=== PATIENT | female | born 1940 | race Caucasian/White ===

== ENCOUNTER → 2016-06-14 | Outpatient (REF) | payer MEDICARE, OTHER ==
[~2016-06-14] MED LIST: /MOXI40TA OR; ALBU17IN INH; ALTA1CAP2 PO; ALTA5CAP PO; AMOX500T PO; AMOX875T2 PO; ASPI1TAB PO; ASPI325T PO; ATEN25TA PO; ATOR40TA PO; AUGM500T34 PO; BENE1POW4 PO; BENE6POW PO; BISA10SU PR; BISO10TA2 PO; BISO5TAB5 PO; CEPH500C PO; CIPR0.3S OS; DUONSOL NEB; FERR325T3 PO; FOLI1TAB2 PO; FURO20TA2 PO; FURO40TA2 PO; IPRASOL4 INH; IPRASOL4 NEB; KLOR1CAP2 PO; LASI20TA PO; LASI40TA PO; LEVO25TA5 PO; LEVO500T32 PO; LEVO75TA4 PO; LOVE0.4I2 SC; MAALSUS2 PO; NORT10CA2 PO; NYST10PW TOP; PANT40TA2 PO; PEG1POW PO; PERCOCET PO; POTA1TAB14 PO; PRED1SOL3 OS; PRED20TA PO; PROL0.072 OS; PROT1TAB2 PO; REGL5TAB2 PO; SENN1TAB2 PO; SENO8.6T10 PO; SIME80TA PO; SIMV40TA2 PO; SING10TA31 PO; SPIR25TA2 PO; SPIR50TA2 PO; SUCR1TA PO; SYMB16INH INH; SYMB80AE IN; SYNT50TA PO; TORS100T PO; TYLE325T5 PO; VIT D 2000 PO; VITA25003 SL; VITA50003 PO; VITA500T53 PO; XARE20TA PO; ZOFR20TA PO; [UNRECOGNIZED DRUG - CODE] PO
[2016-06-14 12:10] LABS: BASO % 0.6 % (0.0-1.0); EOS # 0.4 K/mm3 (0.0-0.50); EOS % 8.9 % (0.0-3.0); LARGE UNSTAINED CELL # 0.1 K/mm3 (0.0-0.4); LARGE UNSTAINED CELL % 1.8 % (0.0-4.0); LYMPH # 0.9 K/mm3 (1.5-4.5); LYMPH % 16.8 % (24.0-44.0); MEAN CORPUSCULAR HEMOGLOBIN 31.3 pg (27.0-33.0); MEAN CORPUSCULAR HGB CONC 31.8 g/dl (32.0-36.5); MEAN CORPUSCULAR VOLUME 98.3 fl (80.0-96.0); MONO # 0.3 K/mm3 (0.0-0.8); MONO % 6.2 % (0.0-5.0); NEUTROPHILS % 65.7 % (36.0-66.0); PLATELET COUNT, AUTOMATED 259 k/mm3 (150-450); RED CELL DISTRIBUTION WIDTH 13.7 % (11.5-14.5); WHITE BLOOD COUNT 4.6 K/mm3 (4.0-10.0)
[2016-06-14 12:18] LABS: ALBUMIN 2.7 GM/DL (3.2-5.2); ALBUMIN/GLOBULIN RATIO 0.64 (1.00-1.93); ALKALINE PHOSPHATASE 167 U/L (45-117); ALT/SGPT 15 U/L (12-78); ANION GAP 8 MEQ/L (8-16); AST/SGOT 12 U/L (15-37); BILIRUBIN,TOTAL 0.3 MG/DL (0.2-1.0); BLOOD UREA NITROGEN 15 MG/DL (7-18); CALCIUM LEVEL 8.1 MG/DL (8.8-10.2); CARBON DIOXIDE LEVEL 27 MEQ/L (21-32); CHLORIDE LEVEL 108 MEQ/L (98-107); CREATININE FOR GFR 0.61 MG/DL (0.55-1.02); GLOMERULAR FILTRATION RATE > 60.0 (>39); GLUCOSE, FASTING 111 MG/DL (83-110); POTASSIUM SERUM 3.8 MEQ/L (3.5-5.1); SODIUM LEVEL 143 MEQ/L (136-145); TOTAL PROTEIN 6.9 GM/DL (6.4-8.2)
== END ==
LOC: M LABDRAW1 11:17
PROVIDERS: ATTEND Physician Assistant
DX: E88.09 Other disorders of plasma-protein metabolism, not elsewhere classified (principal)

== ENCOUNTER → 2016-06-17 | Outpatient (CLI) | payer MEDICARE, OTHER ==
[~2016-06-17] MED LIST changes: +ISOVUE-300 61% 50ML VIAL (Q9967) As Ordered ONE; +LIDOCAINE 2% MDV 20 ML VIAL As Ordered ONE; +SODIUM BICARBONATE 8.4% INJ 50MEQ 50 ML VIAL As Ordered ONE
--- NOTE | 2016-06-17 12:41 | REPKIM ---
CLINICAL HISTORY: Patient with a history of gastric cancer, s/p subtotal gastrectomy and gastrojejunostomy bypass in 2006 and revision in 2014 has a 16F YUKI direct jejunostomy feeding tube. Patient presents because the feeding tube was inadvertently pulled out and patient partially pushed back in. PROCEDURE PERFORMED: Percutaneous Direct Jejunostomy Feeding tube Replacement INTERVENTIONALIST: Dr. Carlitos Lombardi CONSENT: The risks, benefits and alternatives to the procedure were explained to the patient and informed written consent was obtained. MEDICATIONS: Local Lidocaine 2% EBL: 1 mL CONTRAST: 15 mL Isovue 300 FLUORO TIME: 2.6 minutes COMPLICATIONS: None immediate DEVICE USED: 16F YUKI Jejunostomy Tube PROCEDURE/FINDINGS: The patient was brought to the interventional radiology suite where a timeout procedure was performed. The patient was placed in the supine position. The abdomen and existing indwelling catheter was prepped and draped in the usual sterile fashion. The existing jejunostomy retention balloon was found to be outside the skin exit site. Some erythema or cellulitis noted around the tube exit site. Contrast injection showed the tip of the indwelling catheter in the accessed small bowel. A guidewire was advanced through the existing catheter. Then the existing indwelling catheter was removed over the wire in its entirety. A 5-Czech Kumpe catheter was then introduced. Then using a hydrophilic guidewire, the catheter-guidewire combination was advanced under fluoroscopy into the further downstream jejunum. A new 16-Czech YUKI jejunostomy feeding tube was then advanced over the guidewire. The YUKI J tube retention balloon was inflated using approximately 2 mL and retention disc was secured to the abdominal wall using 2-0 prolene sutures. Contrast was injected into the jejunal port to confirm satisfactory course and position. Post procedure radiograph shows the tip of the tube in the efferent jejunum. The patient tolerated the procedure well with no immediate complications. This procedure was performed using fluoroscopy. Dr. Lombardi was present. IMPRESSION: Successful percutaneous Jejunostomy feeding tube replacement as discussed above. Plan: The jejunal port can be used for feeding as needed. Flush the jejunal port of the catheter with 40-ml of water TID and before/after each use. Augmentin po antibiotics x one week for cellulitis. The jejunostomy tube should be changed by Interventional Radiology in 6 months as part of preventive maintenance. cc: Chente Mcclelland MD [facility]
== END | disposition home or self-care (01) ==
LOC: M IRPRO 07:11
DX: Z43.4 Encounter for attention to other artificial openings of digestive tract (principal); Z85.028 Personal history of other malignant neoplasm of stomach
CPT/HCPCS: 49451; C1729; C1769; C1887; Q9967

== ENCOUNTER 2016-07-04 07:07 | Inpatient (IN) | payer MEDICARE, OTHER ==
[~2016-07-04] VITALS: Ht 149.9 cm; Wt 50.6 kg
[~2016-07-04 07:07] MED LIST changes: -ISOVUE-300 61% 50ML VIAL (Q9967) As Ordered ONE; -LIDOCAINE 2% MDV 20 ML VIAL As Ordered ONE; -SODIUM BICARBONATE 8.4% INJ 50MEQ 50 ML VIAL As Ordered ONE
[2016-07-04] MEDS ORDERED: fentaNYL 100 MCG/2 ML INJECTION (J3010) IV ONE ×3 (07:30→11:00)
[2016-07-04] MEDS ORDERED: SYMB16INH INH (07:54)
--- NOTE | 2016-07-04 08:22 | REP ---
CT STUDY OF THE BRAIN WITHOUT CONTRAST: HISTORY: Syncope. COMPARISON STUDY: November 06, 2014 FINDINGS: Bone window settings demonstrate an intact bony calvarium. There is mucosal thickening affecting the left maxillary sinus and bilateral ethmoid air cells. On soft tissue window settings, there is mild to moderate diffuse cerebral atrophy. There is no evidence of intracranial hemorrhage. No extra-axial fluid collection is seen. No mass or midline shift. No evidence of infarction. There is mild small vessel atherosclerotic change in the periventricular white matter of the frontal lobes. This is unchanged from the November 06, 2014 prior study. IMPRESSION: Diffuse atrophy, vascular calcification, and small vessel atherosclerotic changes. No acute intracranial abnormality. Signed by Palmer Redd MD 07/04/2016 02:25 P
--- NOTE | 2016-07-04 08:24 | REP ---
CT STUDY OF THE CERVICAL SPINE WITHOUT CONTRAST: HISTORY: Syncope. TECHNIQUE: Helical scanning is acquired and overlapping 2 mm high resolution axial images were generated and reviewed at bone and soft tissue window settings. Coronal and sagittal multiplanar re-formations images are generated. CT FINDINGS: There is no evidence of cervical spine element fracture. No skull base fracture is seen. Cervical vertebral body heights are preserved. Alignment is normal. There is a mild levoconvex curvature on the coronal re-formation images. Facet joints are normally aligned bilaterally at each cervical level on multiplanar re-formations images. There is multilevel degenerative disc and osteoarthritic facet disease. Degenerative changes are seen at C1-2. There is dystrophic calcification adjacent to the spinous process at C7. There is a bone island to the left side of the vertebral body at the C4 level. There is no evidence of intraspinal or paraspinal hematoma. No extra vertebral abnormality is seen. IMPRESSION: Negative CT study of the cervical spine without contrast. No fracture seen. Degenerative spondylosis changes. Signed by Palmer Redd MD 07/04/2016 02:25 P
--- NOTE | 2016-07-04 08:31 | REP ---
Left hip: Two views. History: Syncope. Left hip pain. Comparison radiographs are from April 19, 2016. December 19, 2015 prior radiographs are also reviewed. There is diffuse osteopenia. There is evidence of buckling of the lateral cortex of the femoral neck on the AP radiograph, suspicious for a slightly impacted femoral neck fracture, nondisplaced. It should be correlated with history. Is there a history of trauma? Extensive vascular calcification is noted. Soft tissues are otherwise unchanged. There is some old post-traumatic hypertrophy of the superior pubic rami bilaterally. Impression: Probable acute impacted, but otherwise nondisplaced fracture of the femoral neck on the left. Correlation with the clinical history and physical findings suggested. Signed by Palmer Redd MD 07/04/2016 02:25 P
[2016-07-04 08:32] LABS: BASO % 0.4 % (0.0-1.0); EOS # 0.4 K/mm3 (0.0-0.50); EOS % 6.4 % (0.0-3.0); LARGE UNSTAINED CELL # 0.1 K/mm3 (0.0-0.4); LARGE UNSTAINED CELL % 0.9 % (0.0-4.0); LYMPH # 0.8 K/mm3 (1.5-4.5); LYMPH % 12.3 % (24.0-44.0); MEAN CORPUSCULAR HEMOGLOBIN 31.6 pg (27.0-33.0); MEAN CORPUSCULAR HGB CONC 32.6 g/dl (32.0-36.5); MEAN CORPUSCULAR VOLUME 97.1 fl (80.0-96.0); MONO # 0.3 K/mm3 (0.0-0.8); MONO % 4.4 % (0.0-5.0); NEUTROPHILS # 4.7 K/mm3 (1.8-7.7); NEUTROPHILS % 75.6 % (36.0-66.0); PLATELET COUNT, AUTOMATED 242 k/mm3 (150-450); RED CELL DISTRIBUTION WIDTH 13.5 % (11.5-14.5); WHITE BLOOD COUNT 6.2 K/mm3 (4.0-10.0)
--- NOTE | 2016-07-04 08:49 | REP ---
Chest x-ray: Single view. History: Syncope. Comparison chest x-ray March 13, 2016. Findings: EKG monitoring electrodes overlie the chest. There is a enterostomy tube visible in the upper abdomen. The heart is mildly enlarged unchanged. There is some increased pleural opacity in the left lower lobe behind the heart although this is improved from the March 13, 2016 study. No new infiltrate is seen. The aorta is calcific. Impression: No new infiltrate. Pleural fluid or thickening behind the heart in the left base. Cardiomegaly. Enterostomy tube in the upper abdomen. Signed by Palmer Redd MD 07/04/2016 02:26 P
[2016-07-04 08:57] LABS: ANION GAP 8 MEQ/L (8-16); BLOOD UREA NITROGEN 11 MG/DL (7-18); CALCIUM LEVEL 8.1 MG/DL (8.8-10.2); CARBON DIOXIDE LEVEL 27 MEQ/L (21-32); CHLORIDE LEVEL 108 MEQ/L (98-107); GLOMERULAR FILTRATION RATE > 60.0 (>39); GLUCOSE, FASTING 89 MG/DL (83-110); POTASSIUM SERUM 3.7 MEQ/L (3.5-5.1); SODIUM LEVEL 143 MEQ/L (136-145)
--- NOTE | 2016-07-04 09:01 | REP ---
LEFT KNEE, TWO VIEW: HISTORY: Pain. There is no acute fracture or dislocation. There is narrowing of the joint spaces. An osteophyte is present on the patella. Chondrocalcinosis is present. The bony structure is osteopenic. IMPRESSION: There is no acute fracture or dislocation. Signed by Johan Hodge MD 07/04/2016 09:14 A
[2016-07-04] MEDS ORDERED: SPIR25TA2 PO (10:57)
[2016-07-04] MEDS ORDERED: ALBU83IN INH (10:58)
[2016-07-04] MEDS ORDERED: TRAM50TA2 PO (10:58)
[2016-07-04] MEDS ORDERED: FOLI1TAB2 PO (10:58)
[2016-07-04] MEDS ORDERED: FURO20TA2 PO (10:58)
[2016-07-04] MEDS ORDERED: PANT40TA2 PO (10:59)
[2016-07-04] MEDS: ENOXAPARIN 60 MG/0.6 ML SYR (J1650) SC SCH (11:00)
--- NOTE | 2016-07-04 12:11 | REP ---
CT STUDY OF THE PELVIS WITHOUT CONTRAST: HISTORY: Evaluate left femoral neck fracture. TECHNIQUE: Helical scanning is acquired. 3 mm axial images are generated. Coronal and sagittal multiplanar reformation images are generated. CT FINDINGS: Pelvic CT images show diffuse osteopenia. There is old appearing wedging at the L1 and L3 vertebral body levels. There is old post-traumatic deformity of the superior and inferior pubic rami bilaterally. The right hip is replaced. No sacral or acute pelvic fracture is seen. There is however an acute impacted nondisplaced fracture of the femoral neck on the left side. Vascular calcification is noted. A feeding enterostomy tube is noted in place. Postoperative changes are seen in the anterior abdominal wall. IMPRESSION: Acute, nondisplaced slightly impacted subcapital fracture left femoral neck. Old post-traumatic deformity in the pelvis. Right hip replacement. Signed by Palmer Redd MD 07/04/2016 02:29 P
[2016-07-04] MEDS ORDERED: ALBUTEROL SULFATE 2.5 MG/0.5 ML INH NEB SOLN INH PRN (12:15)
[2016-07-04] MEDS ORDERED: ALBUTEROL 90 MCG/ACT 8GM HFA INHALER INH PRN (12:15)
[2016-07-04] MEDS ORDERED: PERCOCET 5MG/325MG TAB PO PRN (12:30)
[2016-07-04] MEDS ORDERED: ACETAMINOPHEN TAB 650MG DOSE (2X325MG) PO PRN (12:30)
[2016-07-04] MEDS: ONDANSETRON 4MG/2ML VIAL (J2405) IV PRN (13:12)
[2016-07-04] MEDS: MORPHINE 2 MG/ML 1ML SYRINGE IV PRN ×4 (13:15→23:17)
--- NOTE | 2016-07-04 14:21 | REP ---
BILATERAL LOWER EXTREMITY DOPPLER VENOUS ULTRASOUND: LEFT THIGH: TECHNIQUE: Multiple ultrasonographic images of the deep venous structures of the left thigh were obtained from the common femoral vein to the popliteal vein along with Doppler interrogation and color flow Doppler images. FINDINGS: There is no abnormal echogenic material seen within any of the visualized deep venous structures that would suggest acute thrombosis. Coaptation is unremarkable throughout. Doppler interrogation shows an expected response to respiratory variability and augmentation. The color flow images show what appears to be a normal vascular pattern throughout. IMPRESSION: There is no ultrasonographic evidence of deep venous thrombosis involving any of the visualized deep venous structures of the left thigh, as described above. Due to the patient's status with a broken left hip, the patient was unable to move in a position necessary to best visualize the popliteal vein. That portion of the deep venous system was not well seen and a small clot in that area cannot be completely ruled out. RIGHT THIGH: TECHNIQUE: Multiple ultrasonographic images of the deep venous structures of the right thigh were obtained from the common femoral vein to the popliteal vein along with Doppler interrogation and color flow Doppler images. FINDINGS: There is no abnormal echogenic material seen within any of the visualized deep venous structures that would suggest acute thrombosis. Coaptation is unremarkable throughout. Doppler interrogation shows an expected response to respiratory variability and augmentation. The color flow images show what appears to be a normal vascular pattern throughout. IMPRESSION: There is no ultrasonographic evidence of deep venous thrombosis involving any of the visualized deep venous structures of the right thigh, as described above. Signed by Mathew Gonsalez DO 07/04/2016 02:32 P
--- NOTE | 2016-07-04 14:39 | HPE ---
DATE OF ADMISSION: 07/04/2016 [facility]IC SURGEON: Dr. Morris Viera DIESEL TRUCK DRIVER: Dr. Acosta. CHIEF COMPLAINT: Fall with left hip pain. HISTORY OF PRESENT ILLNESS: This is a 75-year-old female patient with underlying medical history of gastric cancer with gastric resection in 2014 done at [facility], gait instability, anemia of chronic disease, dumping syndrome, bilateral lower extremity chronic edema, hypoalbuminemia, malnutrition, congestive heart failure (CHF), grade 1 diastolic dysfunction, coronary arterial disease, severe protein calorie malnutrition, hypothyroidism, history of deep vein thrombosis (DVT) in December 2015, gastroesophageal reflux disease (GERD), hypothyroidism, and also has a history of syncope. The patient was brought to the hospital for an episode of syncope. As per patient, she was in her usual state of health with a month of intermittent cough. No dyspnea. Denies any chest pain, shortness of breath. This morning, the patient was in the living room when she tried to turn on the lamp. She did and subsequently leaned to her left and felt lightheaded and subsequently fell to the ground with loss of consciousness for about a few seconds and when she regained consciousness she felt significant pain on her left hip, unable to ambulate further. Denies any fevers, chills, or any upper extremity weakness or any focal neurological deficits. The patient stated that she does have a history of syncope in the past. Reported loose stool this morning, but has not had any significant diarrhea. Denies any fevers, chills, sick contacts. Denies any headache, neck pain, baseline ambulatory. Was able to walk back and forth in the mall without any problems. Ambulating without any assistance. Sees Dr. Acosta for cardiology. Denies any dyspnea on exertion, chest pain. Only reported left hip pain that is 8 out of 10. ALLERGIES: LIPITOR and CRESTOR. PAST MEDICAL HISTORY: 1. Gastric cancer, status post resection in 2014 done at [facility]. 2. Gait dysfunction. 3. Anemia of chronic disease. 4. Dumping syndrome. 5. Bilateral lower extremity chronic edema. 6. Coronary artery disease with stent in 2003. 7. Hypoalbuminemia. 8. Severe protein calorie malnutrition. 9. Hypothyroidism. 10. Deep vein thrombosis (DVT). 11. Gastroesophageal reflux disease (GERD). PAST SURGICAL HISTORY: 1. Gastric resection. 2. Percutaneous endoscopic gastrostomy tube placement. 3. Hysterectomy. 4. Left ankle fracture surgery. 5. Cardiac stents. 6. Right hip fracture. SOCIAL HISTORY: Denies any smoking, alcohol use. Denies any illicit drug use. FAMILY HISTORY: The patient had a son who from cancer. HOME MEDICATIONS: - Ventolin inhaler every four hours as needed - albuterol nebulizers every four hours as needed - Symbicort 160/4.5 mcg inhalation twice a day - vitamin D 50,000 units on Monday - ferrous sulfate 325 mg by mouth daily - folic acid 1 mg by mouth daily - Lasix 20 mg by mouth daily - Synthroid 50 mcg by mouth in the morning - Protonix 40 mg by mouth daily - Xarelto 20 mg by mouth daily - Spironolactone 25 mg by mouth daily - tramadol 50 mg by mouth twice a day as needed REVIEW OF SYSTEMS: Negative except for those mentioned in history of present illness. VITAL SIGNS: Temperature 97.6, pulse 76, respirations 18, blood pressure 178/81, pulse oximetry 95% on room air. GENERAL: The patient is alert and oriented times three. Frail and in no acute distress. HEENT: Normocephalic, atraumatic. PULMONARY: Bilaterally clear to auscultation. CARDIAC: 2/6 systolic murmur detected. Regular S1, S2. ABDOMEN: Soft. PEG tube noticed that is clean, dry and intact. EXTREMITIES: Left lower extremity is tender to palpation. Right lower extremities is able to move without limitation. Dorsalis pedis and posterior tibialis pulses 2+ bilaterally. NEUROLOGIC: No focal deficit. Cranial nerves II through XII grossly intact. LABORATORY DATA: WBC 6.2, hemoglobin and hematocrit 11.1/34, platelets 242. Chemistry: Sodium 143, potassium 3.7, chloride 108, bicarbonate 27, BUN 11, creatinine 0.6. CT of the pelvis shows acute nondisplaced slightly impacted subcapital fracture of left femoral neck. Old posttraumatic deformity in the pelvis. Right hip replacement. CT of the head and CT of the cervical spine within normal limits. X-ray of the chest showed no new infiltrates. Pleural fluid or thickening behind the heart in the left base, cardiomegaly. Electrocardiogram (EKG) showed sinus rhythm at 73 with PVCs, no ST segment changes. ASSESSMENT AND PLAN: This is a 75-year-old female patient with underlying medical history of gastric cancer, coronary arterial disease, stents in 2003, gait instability, anemia of chronic disease, dumping syndrome, bilateral lower extremity edema, hypoalbuminemia, congestive heart failure (CHF) with grade 1 diastolic dysfunction, severe protein calorie malnutrition, hypothyroidism, deep vein thrombosis (DVT), gastroesophageal reflux disease (GERD). The patient admitted status fall with syncope with left femoral neck fracture, nondisplaced. 1. Syncope. The patient has a history of gait instability. We will check orthostatic vital signs after surgery. We will follow cardiac enzymes, thyroid function tests and monitor blood pressure. IV fluids for hydration. Echocardiogram and CT of the head appreciated. 2. Left femoral neck fracture. Orthopedics consulted. Perioperative management as per orthopedics. The patient with METs greater than 4 with normal EKG. Currently medically optimized for surgery. Case discussed with Dr. Acosta. Additional records requested. The patient is currently optimized for surgery. Risks and benefits have been discussed with the patient. Pain regimen as prescribed. 3. Asthma. Continue medication as ordered. The patient is currently not having any wheeze. We will check respiratory panel to see if the patient has been sick from respiratory illness given the patient is complaining of cough. 4. Coronary arterial disease. The patient's Xarelto has been on hold. Holding blood pressure medication. EKG appreciated. Followup cardiac enzymes. Telemetry monitoring. Followup echocardiogram. Report requested from cardiology, Dr. Acosta, office. 5. Hypothyroidism. Followup thyroid profile. Continue Synthroid. 6. History of deep vein thrombosis (DVT). Followup ultrasound Doppler. Xarelto on hold. Switch to Lovenox. We will bridge the patient back to Xarelto after surgery. Hold Lovenox tomorrow morning for surgery. 7. Asthma. Continue Symbicort. Nebulizer treatment. Proventil. 8. Severe protein calorie malnutrition. The patient has a PEG tube, but has been tolerating oral. We will restart feeding once surgery is done. 9. Gastroesophageal reflux disease (GERD). Continue proton pump inhibitor. 10. History of congestive heart failure (CHF). Grade 1 diastolic dysfunction. Holding aldactone and Lasix. Given the patient is going for surgery, we will restart medication after surgery. 11. Gait instability. We will do physical therapy (PT) and occupational therapy (OT) after surgery. 12. History of dumping syndrome. We will continue to monitor. IV fluids for hydration. Followup electrolytes. 13. Anemia of chronic disease. Continue oral supplementation of iron. Monitor hemoglobin and hematocrit. Transfuse as needed. 14. Deep vein thrombosis (DVT) prophylaxis. The patient is on treatment dose Lovenox. DISPOSITION: Pending orthopedic consultation, orthopedic surgery, clinical improvement.
[2016-07-04 15:39] LABS: T UPTAKE 36 % (30-39); THYROXINE (T4) 5.7 UG/DL (4.5-12.0)
[2016-07-04] MEDS ORDERED: NYST10CR TOP (15:48)
[2016-07-04 16:10] VITALS: BP 162/74
[2016-07-04] MEDS: LR 1,000 ML IV SCH (16:39)
[2016-07-04] MEDS: PANTOPRAZOLE 40MG TAB (PROTONIX) PO SCH (17:33)
[2016-07-04] MEDS: FOLIC ACID 1 MG TAB PO SCH (17:33)
[2016-07-04] MEDS: FERROUS SULFATE 325MG TAB PO SCH (17:33)
--- NOTE | 2016-07-04 18:41 | CR ---
DATE OF CONSULTATION: 07/04/2016 CHIEF COMPLAINT: Left hip pain. HISTORY OF THE PRESENT ILLNESS: A 75-year-old female, she got up to ambulate and lost her balance, fell, injured the left hip, could not walk, had significant pain. History of right hip replacement with Dr. Yusuf in the past; that is not hurting, though. She has significant medical comorbidities, including resection of a gastric cancer around the 2014 time frame at the [facility]. Nutritional issues. Has a history of cardiac issues. Complains of pain in the left hip. Previously lived independently by herself near family members, is ambitious about going home and not to a subacute rehabilitation facility. ALLERGIES: Include LIPITOR and CRESTOR. MEDICAL HISTORY: Includes gastric cancer resected in 2014, gait disorder, anemia of chronic disease, dumping syndrome, bilateral lower extremity chronic edema, coronary artery disease, hyperalbuminemia, protein-calorie malnutrition, hypothyroidism, deep vein thrombosis (DVT), gastroesophageal reflux disease. SURGICAL HISTORY; Includes gastric resection, endoscopic gastrectomy tube placement, hysterectomy, left ankle fracture surgery, cardiac stents, right hip replacement. SOCIAL HISTORY: Does not smoke or drink, or use any illicit drugs. FAMILY HISTORY: She has a son who of cancer. She is present with her daughter today who is supportive. MEDICATIONS AT HOME: Include Ventolin, albuterol, Symbicort, vitamin D, iron, folate, Lasix, Synthroid, Protonix, Xarelto, spironolactone, tramadol. REVIEW OF SYSTEMS: She is complaining of left hip pain today. She is not complaining of headache, nausea, shortness of breath, abdominal pain or any other issue. Not complaining of skin trouble. CLINICAL EXAM: Alert and cooperative, very articulate and pleasant, accompanied by her daughter in the room today. She is not short of breath. Cardiac: Regular, about 70 beats per minute at the dorsalis pedis on the left side. There is minimal to no peripheral edema today. The calves are soft, nontender. Manipulation of the left hip does produce pain towards the groin region. Appears to be an isolated injury. Abdomen is not distended. IMAGING: Plain films suggest an impacted femoral neck fracture of the left hip. CT of the abdomen and pelvis reviewed also reveals an impacted but not significantly displaced femoral neck fracture in the basocervical region. IMPRESSION: Femoral neck fracture, impacted, not displaced. RECOMMENDATIONS: Recommendations include operative percutaneous fixation of the hip fracture. I spoke in detail with the patient as well as her daughter. We talked about the procedure proposed, alternatives such as doing a hemiarthroplasty or needing to do a hemiarthroplasty if this displaced over time. We talked about the risk of failure, most of these heal but some of them fail and if it fails, she would need to be converted to some other type of intervention. I do think that the percutaneous option is her best option considering her medical history and frailty. I think that a hemiarthroplasty would be a metabolic challenge for this patient to some degree. We talked about recovery. She is going to require a stay in subacute rehab. I do not think that she is going to be able to be discharged to home until she has healed this fracture. This will likely entail a 6 to 8 week stay in subacute rehabilitation before any consideration of independent living is made. Even after discharge from subacute rehab, she may require additional assistance considering the patient's comorbidities. The patient agreed to proceed. Daughter witnessed consent. We will coordinate with the hospitalist team as well as operating room team to get her onto the schedule. The patient is comfortable with our plan.
--- NOTE | 2016-07-04 19:53 | ECHO ---
DATE OF PROCEDURE: 07/04/2016 REFERRING PHYSICIAN: Dr. Mcconnell INDICATION: Syncope. HEIGHT: 150 cm WEIGH: 50 kg DIMENSIONS: IVS 1.2 LV 3.7 LVPW 1.2 LA 3.4 Aorta 2.8 FINDINGS: Study of is of good technical quality. Left ventricle is of normal size and hyperdynamic contractility with estimated ejection fraction (EF) 65-70% . Mild LVH is noted. Right ventricle does not appear dilated. Left atrium is severely enlarged. Right atrium is probably mildly enlarged. Aortic valve is tricuspid. There is sclerosis and some restriction of leaflet cusp mobility. Based on 2-D imaging, I assume approximately mild aortic stenosis. There are degenerative abnormalities of mitral valve with thickening of mitral leaflets and minimal restriction of leaflet mobility. Tricuspid valve appears normal. Pulmonic valve also appears normal. No pericardial effusion is noted. Inferior vena cava was not visualized because of recently placed feeding tube. Aortic arch and abdominal aorta were not seen. Doppler interrogation reveals aortic stenosis which is probably mild. Peak gradient is 37 and mean gradient 20 mmHg. No aortic insufficiency is noted. Doppler interrogation of mitral valve reveals evidence for approximately moderate insufficiency, but also trivial stenosis with peak gradient 7, mean gradient 3 mmHg. There is mild tricuspid insufficiency. Calculated pulmonary artery pressure is in 30s assuming normal central venous pressure which would indicate mild pulmonary hypertension. Pulmonic valve exhibits mild insufficiency as well. Mitral inflow pattern and tissue Doppler imaging of mitral annulus reveal grade 1 diastolic dysfunction. CONCLUSIONS: 1. Study is of good technical quality. 2. Normal left ventricle (LV) size with mild LVH and hyperdynamic LV systolic function. Grade I diastolic dysfunction. 3. Mild aortic stenosis. 4. Degenerative abnormalities of mitral valve resulting in trivial stenosis and approximately moderate insufficiency. 5. Unable to estimate central venous pressure but at least mild pulmonary hypertension. COMMENTS: Subacute bacterial endocarditis (SBE) prophylaxis is not recommended. MTDD
[2016-07-04 20:00] VITALS: BP 122/59
[2016-07-04] MEDS: SENOKOT S TAB PO SCH ×2 (20:06→20:10)
--- NOTE | 2016-07-04 20:37 | ECGEPIP ---
Stationary ECG Study [facility] - ED Test Date: 2016-07-04 Pat Name: SUE URENA Department: Room: - Gender: F [employer]: derek : 1940 Requested By: MITZY Wilks Order Number: [id number] Reading MD: Americo Chinchilla Measurements Intervals Harvey Rate: 73 P: 29 MS: 168 QRS: -7 QRSD: 85 T: -13 QT: 406 QTc: 450 Interpretive Statements SINUS RHYTHM WITH OCCASIONAL SUPRAVENTRICULAR PREMATURE COMPLEXES Electronically Signed On 07-04-2016 20:36:53 EST by Americo Chinchilla
[2016-07-04 21:14] LABS: CALCIUM OXALATE CRYSTALS SMALL
[2016-07-05] VITALS (11 sets, daily range): BP systolic 98–164; BP diastolic 52–78
[2016-07-05] MEDS: ENOXAPARIN 60 MG/0.6 ML SYR (J1650) SC SCH ×2 (01:01→23:47)
[2016-07-05] MEDS: LR 1,000 ML IV SCH (04:48)
[2016-07-05 05:30] LABS: MEAN CORPUSCULAR HEMOGLOBIN 31.2 pg (27.0-33.0); MEAN CORPUSCULAR HGB CONC 32.7 g/dl (32.0-36.5); MEAN CORPUSCULAR VOLUME 95.4 fl (80.0-96.0); RED CELL DISTRIBUTION WIDTH 13.6 % (11.5-14.5); WHITE BLOOD COUNT 5.1 K/mm3 (4.0-10.0)
[2016-07-05 05:42] LABS: INR 1.19
[2016-07-05 05:50] LABS: ANION GAP 7 MEQ/L (8-16); BLOOD UREA NITROGEN 11 MG/DL (7-18); CALCIUM LEVEL 7.5 MG/DL (8.8-10.2); CARBON DIOXIDE LEVEL 29 MEQ/L (21-32); CHLORIDE LEVEL 106 MEQ/L (98-107); CREATININE FOR GFR 0.62 MG/DL (0.55-1.02); GLOMERULAR FILTRATION RATE > 60.0 (>39); GLUCOSE, FASTING 91 MG/DL (83-110); MAGNESIUM LEVEL 1.8 MG/DL (1.8-2.4); POTASSIUM SERUM 3.4 MEQ/L (3.5-5.1); SODIUM LEVEL 142 MEQ/L (136-145)
[2016-07-05] MEDS: LEVOTHYROXINE 0.05 MG TAB (50 MCG) PO SCH (06:12)
[2016-07-05] MEDS: SYMBICORT 160/4.5MCG INHALER 6GM INH SCH ×2 (07:00→20:33)
[2016-07-05] MEDS ORDERED: POTASSIUM CHLORIDE 10 MEQ SR TABLET PO ONE (08:30)
[2016-07-05] MEDS: SENOKOT S TAB PO SCH ×2 (09:00→22:17)
[2016-07-05] MEDS: NYSTATIN CREAM 15 GM XX SCH ×2 (09:00→22:16)
[2016-07-05] MEDS: PANTOPRAZOLE 40MG TAB (PROTONIX) PO SCH (09:36)
[2016-07-05] MEDS: FOLIC ACID 1 MG TAB PO SCH (09:37)
[2016-07-05] MEDS: FERROUS SULFATE 325MG TAB PO SCH (09:37)
[2016-07-05] MEDS: ONDANSETRON 4MG/2ML VIAL (J2405) IV PRN (11:17)
[2016-07-05] MEDS: MORPHINE 2 MG/ML 1ML SYRINGE IV PRN ×4 (12:31→21:00)
--- NOTE | 2016-07-05 13:26 | IPNPDOC ---
Text Note Date of Service The patient was seen on 07/05/16. NOTE Subjective: Patient states she feels well. Denies CP/SOB/Palpitations. Left hip pain well controlled. Objective: Vitals: (see below) General: No acute distress, laying comfortably in bed. HEENT: Moist mucous membranes. Neck: No JVD or lymphadenopathy Cardiac: RRR, No murmurs Pulm: Clear to auscultation b/l. No wheezing, rhonchi Abd: NT/ND + BS. PEG tube in place, with bilious fluid and redness around it. Non tender. Ext: No edema or cyanosis. Distal pulses intact. Left hip pain on movement. Labs (see below) Images: Echo 07/04/16 CONCLUSIONS: 1. Study is of good technical quality. 2. Normal left ventricle (LV) size with mild LVH and hyperdynamic LV systolic function. 3. Mild aortic stenosis. 4. Degenerative abnormalities of mitral valve resulting in trivial stenosis and approximately moderate insufficiency. 5. Unable to estimate central venous pressure but at least mild pulmonary hypertension. Assessment/Plan 1. Syncope- patient states she's been having symptoms of orthostatic hypotension when standing. Denies any chest pain/palpitations. No acute changes overnight. Echocardiogram noted. Cardiac enzymes negative. Thyroid function within normal limits. 2. Left femur neck fracture- orthopedics consulted. The patient and greater than 4 mets, and has been optimized for surgery by Dr. Mcconnell, who discussed case with Dr. Acosta. 3. History of gastric cancer status post gastrectomy, has PEG tube, however has not used over the past 2 weeks. Has some bilious fluid as well as redness around the tube. We'll speak to her primary care physician regarding necessity of this PEG tube as patient is tolerating a diet. Surgery consulted. Will likely need this taken out soon. 4. Asthma- stable 5. History of CAD- cardiac enzymes negative. Echocardiogram noted. Stable. 6. History of DVT- Xarelto on hold. Placed on Lovenox in the meantime. 7. Severe protein calorie malnutrition- patient has been tolerating a regular diet. Will likely need PEG tube removed now. 8. GERD- continue PPI 9. Grade 1 diastolic dysfunction- Aldactone and Lasix have been held until after the surgery. 10. Gait instability- physical therapy and occupational therapy will be consulted after surgery. 11. History of dumping syndrome- continue IV fluid hydration DVT prophy: On Lovenox, Xarelto on hold VS,Fishbone, I+O VS, Fishbone, I+O Laboratory Tests 07/05/16 05:04 Calcium Level 7.5 L, Red Blood Count 2.94 L, Mean Corpuscular Volume 95.4, Mean Corpuscular Hemoglobin 31.2, Mean Corpuscular Hemoglobin Concent 32.7, Red Cell Distribution Width 13.6 07/05/16 11:20 Vital Signs Date Time Temp Pulse Resp B/P Pulse Ox O2 Delivery O2 Flow Rate FiO2 07/05/16 12:31 20 07/05/16 12:20 96.7 72 134/61 93 Room Air I&O- Last 24 Hours up to 6 AM 07/05/16 06:00 Intake Total 1000 ml Output Total 550 ml Balance 450 ml CARMITA WELCH MD Jul 05, 2016 13:26
[2016-07-05] MEDS ORDERED: ceFAZolin 1GM INJ (J0690) As Ordered ONE ×2 (15:11→16:52)
[2016-07-05] MEDS ORDERED: BUPIVACAINE/EPIN 0.25% 30 ML VIAL As Ordered ONE (15:11)
[2016-07-05] MEDS ORDERED: ceFAZolin 2 GM/D5W 50 ML IV BAG (J0690) As Ordered ONE (16:53)
[2016-07-05] MEDS ORDERED: GLYCOPYRROLATE INJ 0.2 MG/ML 2 ML VIAL As Ordered ONE (17:44)
[2016-07-05] MEDS ORDERED: LIDOCAINE 2% INJ 100 MG/5 ML SDV (FOR ANES.) As Ordered ONE (17:44)
[2016-07-05] MEDS ORDERED: ONDANSETRON 4MG/2ML VIAL (J2405) As Ordered ONE (17:44)
[2016-07-05] MEDS ORDERED: fentaNYL 250 MCG/5 ML INJECTION (J3010) As Ordered ONE (17:44)
[2016-07-05] MEDS ORDERED: PROPOFOL 200 MG/20 ML VIAL As Ordered ONE (17:44)
[2016-07-05] MEDS ORDERED: ROCURONIUM BROMIDE 50 MG/5 ML VIAL As Ordered ONE (17:44)
[2016-07-05] MEDS ORDERED: NEOSTIGMINE 1MG/ML 5 ML SYRINGE (J2710) As Ordered ONE (17:44)
[2016-07-05] MEDS ORDERED: PHENYLephrine HCL 500 MCG/5 ML (100MCG/ML) SYRINGE (J2370) As Ordered ONE (17:44)
[2016-07-05] MEDS ORDERED: METOCLOPRAMIDE INJ 10MG/2ML VIAL (J2765) As Ordered ONE (17:44)
[2016-07-05] MEDS ORDERED: MIDAZOLAM INJ 2 MG/2 ML VIAL (J2250) As Ordered ONE (17:44)
[2016-07-05] MEDS ORDERED: D5W/LR 1,000 ML IV SCH (18:30)
[2016-07-05] MEDS ORDERED: fentaNYL 100 MCG/2 ML INJECTION (J3010) IV PRN (18:45)
[2016-07-05] MEDS ORDERED: LR 1,000 ML IV SCH (18:45)
[2016-07-05] MEDS ORDERED: ONDANSETRON 4MG/2ML VIAL (J2405) IV PRN (18:45)
[2016-07-05] MEDS ORDERED: MORPHINE 2 MG/ML 1ML SYRINGE As Ordered ONE ×2 (19:01→19:09)
[2016-07-05] MEDS ORDERED: MORPHINE 2 MG/ML 1ML SYRINGE IV PRN (19:30)
--- NOTE | 2016-07-05 19:41 | REP ---
C-ARM VIEWS, LEFT HIP: Two C-ARM views of the left hip are performed. There metallic screws in the proximal femur. The structures are well aligned. 54 seconds of fluoroscopic time was utilized. Signed by Neto Larson MD 07/05/2016 08:13 P
[2016-07-05] MEDS: ceFAZolin SOD 1 GM in D5W MINI-BAG PLUS 50 ML IV SCH (22:16)
[2016-07-05] MEDS: DOCUSATE SODIUM 100 MG CAP PO SCH (22:17)
[2016-07-05] MEDS: PERCOCET 5MG/325MG TAB PO PRN (22:18)
[2016-07-06] VITALS: BP 140/66
[2016-07-06] MEDS: MORPHINE 2 MG/ML 1ML SYRINGE IV PRN ×3 (00:24→10:42)
[2016-07-06 04:00] VITALS: BP 116/62
[2016-07-06] MEDS: ceFAZolin SOD 1 GM in D5W MINI-BAG PLUS 50 ML IV SCH (04:35)
[2016-07-06 05:38] LABS: MEAN CORPUSCULAR HEMOGLOBIN 32.1 pg (27.0-33.0); MEAN CORPUSCULAR HGB CONC 32.9 g/dl (32.0-36.5); MEAN CORPUSCULAR VOLUME 97.4 fl (80.0-96.0); RED CELL DISTRIBUTION WIDTH 13.4 % (11.5-14.5); WHITE BLOOD COUNT 4.6 K/mm3 (4.0-10.0)
[2016-07-06 05:50] LABS: INR 1.18
[2016-07-06 05:58] LABS: ANION GAP 7 MEQ/L (8-16); BLOOD UREA NITROGEN 11 MG/DL (7-18); CALCIUM LEVEL 7.7 MG/DL (8.8-10.2); CARBON DIOXIDE LEVEL 29 MEQ/L (21-32); CHLORIDE LEVEL 105 MEQ/L (98-107); CREATININE FOR GFR 0.69 MG/DL (0.55-1.02); GLOMERULAR FILTRATION RATE > 60.0 (>39); GLUCOSE, FASTING 125 MG/DL (83-110); MAGNESIUM LEVEL 1.7 MG/DL (1.8-2.4); SODIUM LEVEL 141 MEQ/L (136-145)
[2016-07-06] MEDS: LEVOTHYROXINE 0.05 MG TAB (50 MCG) PO SCH (06:15)
[2016-07-06] MEDS: SYMBICORT 160/4.5MCG INHALER 6GM INH SCH (07:15)
[2016-07-06 08:00] VITALS: BP 124/59
[2016-07-06] MEDS ORDERED: MOM 30ML SUSPENSION UDC PO SCH (09:00)
[2016-07-06] MEDS ORDERED: FLUCONAZOLE 100 MG TAB PO SCH (09:00)
[2016-07-06] MEDS ORDERED: MAG SULF 1GM/100ML (MAG RUN) 1 GM in APPROPRIATE DILUENT 1 EA IV ONE (09:00)
[2016-07-06] MEDS ORDERED: FUROSEMIDE 20 MG TAB PO SCH (09:00)
[2016-07-06] MEDS ORDERED: MIRALAX *UNIT DOSE* 17GM PACKET PO SCH (09:00)
[2016-07-06] MEDS ORDERED: SPIRONOLACTONE 25 MG TAB PO SCH (09:00)
--- NOTE | 2016-07-06 09:05 | REP ---
Left hip: Three views. History: Postop. Comparison study July 04, 2016. Findings: There are three metallic pins in the left proximal femur transfixing the subcapital femoral neck fracture in position unchanged. Lateral soft tissue swelling, emphysematous change, and skin doris are seen. There is diffuse osteoporosis and vascular calcification. The pins are subcortical in the femoral head on the both projections. Signed by Palmer Redd MD 07/06/2016 12:25 P
[2016-07-06] MEDS: PANTOPRAZOLE 40MG TAB (PROTONIX) PO SCH (09:49)
[2016-07-06] MEDS: FOLIC ACID 1 MG TAB PO SCH (09:49)
[2016-07-06] MEDS: FERROUS SULFATE 325MG TAB PO SCH (09:49)
[2016-07-06] MEDS: DOCUSATE SODIUM 100 MG CAP PO SCH (09:49)
[2016-07-06] MEDS: PERCOCET 5MG/325MG TAB PO PRN ×2 (09:49→17:51)
[2016-07-06] MEDS: NYSTATIN CREAM 15 GM XX SCH (09:51)
[2016-07-06] MEDS: ENOXAPARIN 60 MG/0.6 ML SYR (J1650) SC SCH (11:51)
[2016-07-06 12:00] VITALS: BP 114/59
--- NOTE | 2016-07-06 12:44 | IPNPDOC ---
Text Note Date of Service The patient was seen on 07/06/16. NOTE Subjective: Patient states she feels well. Denies CP/SOB/Palpitations. Left hip pain well controlled. Still has bilious drainage at the peg tube site. Objective: Vitals: (see below) General: No acute distress, laying comfortably in bed. HEENT: Moist mucous membranes. Neck: No JVD or lymphadenopathy Cardiac: RRR, No murmurs Pulm: Clear to auscultation b/l. No wheezing, rhonchi Abd: NT/ND + BS. PEG tube in place, with bilious fluid and redness around it. Non tender. Ext: No edema or cyanosis. Distal pulses intact. Left hip pain on movement improved. Left hip surgical site with bandage clean, dry. No bleeding. Minimal swelling. Labs (see below) Images: Echo 07/04/16 CONCLUSIONS: 1. Study is of good technical quality. 2. Normal left ventricle (LV) size with mild LVH and hyperdynamic LV systolic function. 3. Mild aortic stenosis. 4. Degenerative abnormalities of mitral valve resulting in trivial stenosis and approximately moderate insufficiency. 5. Unable to estimate central venous pressure but at least mild pulmonary hypertension. Assessment/Plan 1. Syncope- patient states she's been having symptoms of orthostatic hypotension when standing prior to presentation. Denies any chest pain/ palpitations. No acute changes overnight. Echocardiogram noted. Cardiac enzymes negative. Thyroid function within normal limits. 2. Left femur neck fracture- Post Op repair on 07/05 by orthopedics. 3. History of gastric cancer status post gastrectomy, has PEG tube, however has not used over the past 2 weeks. Has some bilious fluid as well as redness around the tube. We'll speak to her primary care physician regarding necessity of this PEG tube as patient is tolerating a diet. Surgery consulted. Will likely need this taken out soon. Fluconazole started. 4. Asthma- stable 5. History of CAD- cardiac enzymes negative. Echocardiogram noted. Stable. 6. History of DVT- Xarelto on hold. Placed on Lovenox in the meantime. 7. H/o Severe protein calorie malnutrition- patient has been tolerating a regular diet. Will likely need PEG tube removed now. 8. GERD- continue PPI 9. Grade 1 diastolic dysfunction- Aldactone and Lasix restarted 10. Gait instability- physical therapy and occupational therapy will be consulted after surgery. 11. History of dumping syndrome DVT prophy: On Lovenox, Xarelto on hold; plan to restart xarelto after peg eval. VS,Fishbone, I+O VS, Fishbone, I+O Laboratory Tests 07/06/16 05:10 Calcium Level 7.7 L, Red Blood Count 2.79 L, Mean Corpuscular Volume 97.4 H, Mean Corpuscular Hemoglobin 32.1, Mean Corpuscular Hemoglobin Concent 32.9, Red Cell Distribution Width 13.4 Vital Signs Date Time Temp Pulse Resp B/P Pulse Ox O2 Delivery O2 Flow Rate FiO2 07/06/16 12:00 98.1 71 18 114/59 92 Nasal Cannula 2.0 I&O- Last 24 Hours up to 6 AM 07/06/16 06:00 Intake Total 2070 ml Output Total 1000 ml Balance 1070 ml CARMITA WLECH MD Jul 06, 2016 12:44
[2016-07-06] MEDS: ONDANSETRON 4MG/2ML VIAL (J2405) IV PRN (12:48)
[2016-07-06 16:00] VITALS: BP 150/67
[2016-07-06] MEDS ORDERED: FLUC10TA PO (17:57)
--- NOTE | 2016-07-07 15:57 | DS.PDOC ---
Discharge Summary General Date of Admission Jul 04, 2016 at 12:25 Date of Discharge Jul 06, 2016 at 18:54 Attending Physician: CARMITA WELCH MD Specialist/Consultants Involve: Seth Acosta MD Specialist/Consultants Involve Dr. Cruz Discharge Summary PROCEDURES PERFORMED DURING STAY: Left femur fracture repair. ADMITTING/DISCHARGE DIAGNOSES: 1. Syncope likely secondary to orthostatic hypotension 2. Left femur fracture status post repair 3. History of gastric cancer status post gastrectomy with current PEG/J-tube. 4. History of Asthma 5. History of CAD 6. History of DVT on Xarelto 7. History of severe protein calorie malnutrition 8. Grade 1 diastolic dysfunction 9. Gait instability 10. History of dumping syndrome COMPLICATIONS/CHIEF COMPLAINT: Closed Left Hip Fracture. HISTORY OF PRESENT ILLNESS/HOSPITAL COURSE: . This is a 75-year-old female past medical history of DVT on Xarelto, CAD, gastric cancer status post gastrectomy who presents status post fall. Patient states she had symptoms consistent with orthostatic hypotension prior to her syncopal episode. After syncopal episode patient was noted to have left femur pain, with imaging noting the left femur neck fracture. Orthopedics were consulted and the patient did have a repair of her femur fracture. Patient was also noted to have bilious drainage around her PEG/J tube, with erythema noted. Dr. Cruz was consulted, and will continue to follow patient in PM&R. DISCHARGE MEDICATIONS: Please see below. ALLERGIES: Please see below. PHYSICAL EXAMINATION ON DISCHARGE: Vitals: (see below) General: No acute distress, laying comfortably in bed. HEENT: Moist mucous membranes. Neck: No JVD or lymphadenopathy Cardiac: RRR, No murmurs Pulm: Clear to auscultation b/l. No wheezing, rhonchi Abd: NT/ND + BS. PEG/J tube in place, with bilious fluid and redness around it. Non tender. Ext: No edema or cyanosis. Distal pulses intact. Left hip pain on movement. LABORATORY DATA: Please see below. IMAGING: Echo 07/04/16 CONCLUSIONS: 1. Study is of good technical quality. 2. Normal left ventricle (LV) size with mild LVH and hyperdynamic LV systolic function. 3. Mild aortic stenosis. 4. Degenerative abnormalities of mitral valve resulting in trivial stenosis and approximately moderate insufficiency. 5. Unable to estimate central venous pressure but at least mild pulmonary hypertension. PROGNOSIS: Fair ACTIVITY: As tolerated. DIET: Low-sodium DISCHARGE PLAN/DISPOSITION: 70 Xfer Other. Transfer to PM&R to the care of Dr. Culver. DISCHARGE INSTRUCTIONS: 1. Follow-up with PCP in 1-2 weeks after being discharged from PM&R. DISCHARGE CONDITION: Stable. TIME SPENT ON DISCHARGE: Greater than 30 minutes. Vital Signs/I&Os Vital Signs Date Time Temp Pulse Resp B/P Pulse Ox O2 Delivery O2 Flow Rate FiO2 07/06/16 18:54 18 07/06/16 16:00 97.9 79 150/67 92 Nasal Cannula 2.0 I&O- Last 24 Hours up to 6 AM 07/07/16 06:00 Intake Total 520 ml Output Total 350 ml Balance 170 ml Microbiology Microbiology 07/04/16 Respiratory Virus Panel (PCR) ([facility]UK[facility]) - Final, Complete 07/04/16 Urine Culture - Final, Complete Klebsiella Pneumoniae Discharge Medications Scheduled Budesonide/Formoterol (Symbicort 160-4.5 Mcg/Act) 60 Puff/Inhaler Aers 2 PUFF INH BID (Reported) Ergocalciferol (Vitamin D) 50,000 Unit Cap 50,000 UNIT PO QWEEK (Reported) MONDAY Ferrous Sulfate (Ferrous Sulfate) 325 Mg Tab 325 MG PO DAILY (Reported) Fluconazole (Diflucan) 100 Mg Tab 100 MG PO DAILY Folic Acid (Folic Acid) 1 Mg Tab 1 MG PO DAILY (Reported) Furosemide (Furosemide) 20 Mg Tab 20 MG PO DAILY (Reported) Levothyroxine Sodium (Synthroid) 50 Mcg Tab 50 MCG PO QAM (Reported) Nystatin (Nystatin) 100,000 Unit/Gm Cre 1 DOSE TOP TID (Reported) APPLY TO JTUBE Pantoprazole Sodium (Pantoprazole Sodium) 40 Mg Tab 40 MG PO DAILY (Reported) Rivaroxaban (Xarelto) 20 Mg Tab 20 MG PO DAILY (Reported) Spironolactone (Spironolactone) 25 Mg Tab 25 MG PO DAILY (Reported) Scheduled PRN Albuterol Sulfate (Ventolin Hfa) 200 Puff/8 Gm Aers 2 PUFF INH Q4H PRN PRN SHORTNESS OF BREATH (Reported) Albuterol Sulfate (Albuterol Sulfate) 2.5 Mg/3 Ml Nebu 2.5 MG INH Q4H PRN PRN SHORTNESS OF BREATH (Reported) Tramadol HCl (Tramadol HCl) 50 Mg Tab 50 MG PO BID PRN PRN PAIN (Reported) Allergies Coded Allergies: Atorvastatin (Verified Adverse Reaction, Mild, MUSCLE PAIN AN ADR & HIVES NOTED ALTHOUGH TAKES VYTORIN, 11/06/14) Rosuvastatin (Verified Adverse Reaction, Mild, MUSCLE PAIN, 08/01/12) CARMITA WELCH MD Jul 07, 2016 15:57
[2016-07-08] MEDS ORDERED: VITAMIN D 50,000 UNITS CAPSULE (ERGOCALCIFEROL 1.25MG) PO SCH (09:00)
== END 2016-07-06 18:54 | DRG 481 ==
LOC: M ED 07:54 → M ED INP 12:25 → M PCU 16:07
PROVIDERS: ADMIT Hospitalist; ATTEND Internal Medicine
PROC: 0QS704Z Reposition Left Upper Femur with Internal Fixation Device, Open Approach (ICD-10-PCS; principal; 2016-07-06)
DX: S72.402A Unspecified fracture of lower end of left femur, initial encounter for closed fracture (principal); I50.32 Chronic diastolic (congestive) heart failure; R26.9 Unspecified abnormalities of gait and mobility; I95.1 Orthostatic hypotension; D63.8 Anemia in other chronic diseases classified elsewhere; K91.1 Postgastric surgery syndromes; R60.0 Localized edema; E03.9 Hypothyroidism, unspecified; K21.9 Gastro-esophageal reflux disease without esophagitis; I25.10 Atherosclerotic heart disease of native coronary artery without angina pectoris; J45.909 Unspecified asthma, uncomplicated; W19.XXXA Unspecified fall, initial encounter; Y92.018 Other place in single-family (private) house as the place of occurrence of the external cause; Z90.49 Acquired absence of other specified parts of digestive tract; Z86.718 Personal history of other venous thrombosis and embolism; Z85.00 Personal history of malignant neoplasm of unspecified digestive organ; Z93.1 Gastrostomy status; Z90.710 Acquired absence of both cervix and uterus; Z79.01 Long term (current) use of anticoagulants; Z79.891 Long term (current) use of opiate analgesic; Z79.899 Other long term (current) drug therapy; Z79.51 Long term (current) use of inhaled steroids

== ENCOUNTER 2016-07-06 15:18 | Inpatient (IN) | payer MEDICARE, OTHER ==
[~2016-07-06] VITALS: Ht 149.9 cm; Wt 49.3 kg
[~2016-07-06 15:18] MED LIST changes: +ALBU83IN INH; +NYST10CR TOP; +TRAM50TA2 PO
[2016-07-06] MEDS ORDERED: MOM 30ML SUSPENSION UDC PO PRN (15:30)
[2016-07-06] MEDS ORDERED: ALBUTEROL 90 MCG/ACT 8GM HFA INHALER INH PRN (16:00)
[2016-07-06] MEDS ORDERED: FLUC10TA PO (17:57)
[2016-07-06 20:00] VITALS: BP 124/58
[2016-07-06] MEDS: SYMBICORT 160/4.5MCG INHALER 6GM INH SCH (21:32)
[2016-07-06] MEDS: FERROUS GLUCONATE 324 MG TAB PO SCH (22:11)
[2016-07-06] MEDS: ASCORBIC ACID 500 MG TAB PO SCH (22:11)
[2016-07-07] MEDS: traMADol 50 MG TAB PO PRN ×4 (00:54→20:42)
[2016-07-07] MEDS: ENOXAPARIN 60 MG/0.6 ML SYR (J1650) SC SCH ×2 (00:55→12:20)
[2016-07-07 06:00] VITALS: BP 114/55
[2016-07-07] MEDS: LEVOTHYROXINE 0.05 MG TAB (50 MCG) PO SCH (06:09)
[2016-07-07 06:48] LABS: BASO % 0.6 % (0.0-1.0); EOS # 0.5 K/mm3 (0.0-0.50); EOS % 13.9 % (0.0-3.0); LARGE UNSTAINED CELL # 0.1 K/mm3 (0.0-0.4); LARGE UNSTAINED CELL % 2.8 % (0.0-4.0); LYMPH % 23.9 % (24.0-44.0); MEAN CORPUSCULAR HEMOGLOBIN 31.5 pg (27.0-33.0); MEAN CORPUSCULAR HGB CONC 32.7 g/dl (32.0-36.5); MEAN CORPUSCULAR VOLUME 96.6 fl (80.0-96.0); MONO # 0.3 K/mm3 (0.0-0.8); MONO % 6.9 % (0.0-5.0); NEUTROPHILS % 51.9 % (36.0-66.0); PLATELET COUNT, AUTOMATED 161 k/mm3 (150-450); RED CELL DISTRIBUTION WIDTH 13.3 % (11.5-14.5); WHITE BLOOD COUNT 3.9 K/mm3 (4.0-10.0)
[2016-07-07 07:05] LABS: ANION GAP 6 MEQ/L (8-16); BLOOD UREA NITROGEN 11 MG/DL (7-18); CALCIUM LEVEL 7.5 MG/DL (8.8-10.2); CARBON DIOXIDE LEVEL 31 MEQ/L (21-32); CHLORIDE LEVEL 105 MEQ/L (98-107); CREATININE FOR GFR 0.65 MG/DL (0.55-1.02); GLOMERULAR FILTRATION RATE > 60.0 (>39); GLUCOSE, FASTING 86 MG/DL (83-110); POTASSIUM SERUM 4.1 MEQ/L (3.5-5.1); SODIUM LEVEL 142 MEQ/L (136-145)
--- NOTE | 2016-07-07 07:05 | RO ---
DATE OF PROCEDURE: 07/06/2016 PREOPERATIVE DIAGNOSIS: Left impacted femoral neck fracture. POSTOPERATIVE DIAGNOSIS: Left impacted femoral neck fracture. PROCEDURE PERFORMED: Percutaneous pinning of left femoral neck fracture. SURGEON: Dr. Morris Viera REPAIRER HANDTOOLS: ANESTHESIA: General. ESTIMATED BLOOD LOSS: Less than 40 mL, replaced with crystalloid. COMPLICATIONS: None. COMPONENTS USED: Include 7.3 cannulated screws size 85 mm x 2, size 80 mm x 1. INDICATIONS: Fall on left hip, impacted but nondisplaced femoral neck fracture. The patient has elected for operative intervention. CONSENT: Reviewed in detail with the patient as well as her daughter which involved a edgar discussion of the procedure proposed, alternatives such as doing nothing and risks including but not limited to, pain, failure, infection, bleeding, blood loss, incomplete relief of symptoms, need for additional surgery such as a hemiarthroplasty. The patient agreed to proceed. OPERATIVE COURSE: Identified in the holding area. Site and side verified in the operating room after general endotracheal anesthesia was administered. I positioned the patient on the fracture table for exposure of the left hip. Next, she was sterilely prepped and draped in the usual fashion for exposure of the left hip on the fracture table. Next, fluoroscope was utilized for this procedure. We determined the starting point with the fluoroscope. I made a 2 fingerbreadths incision over the lateral aspect of the greater trochanter, just distal to the greater trochanter of the femur. I then split the lateral fascia which allowed the guide to be placed on the lateral femur. Under fluoroscopic visualization, I placed guidewires times 3 using the guide. Once I was comfortable with the position of the guidewires, I measured for 85 mm screws x 2 and 80 mm screw x1. The screws were placed using the cannulated screw lift driver. Next, final fluoroscopic images revealed good placement of screws in the AP and lateral plane. Next, irrigation was accomplished. The wound was closed with interrupted stitch followed by doris. Sterile dressing was applied. The patient was then able to be extubated, moved on the hospital bed and moved to recovery room in good condition. For further details, please refer to the medical record.
[2016-07-07 07:09] LABS: PERCENT SATURATION 13.9 % (13.2-37.4)
[2016-07-07] MEDS: SYMBICORT 160/4.5MCG INHALER 6GM INH SCH ×2 (07:36→20:31)
[2016-07-07] MEDS: SPIRONOLACTONE 25 MG TAB PO SCH (08:59)
[2016-07-07] MEDS: PANTOPRAZOLE 40MG TAB (PROTONIX) PO SCH (08:59)
[2016-07-07] MEDS: FERROUS GLUCONATE 324 MG TAB PO SCH ×3 (08:59→20:41)
[2016-07-07] MEDS: FLUCONAZOLE 100 MG TAB PO SCH (08:59)
[2016-07-07] MEDS: ASCORBIC ACID 500 MG TAB PO SCH ×3 (09:00→20:41)
[2016-07-07] MEDS: FUROSEMIDE 20 MG TAB PO SCH (09:00)
[2016-07-07] MEDS: FOLIC ACID 1 MG TAB PO SCH (09:00)
[2016-07-07] MEDS: OYSTER SHELL CALCIUM 500 MG TAB PO SCH ×2 (09:06→15:26)
--- NOTE | 2016-07-07 10:04 | HPEPDOC ---
Urology Physician Assistant Note ADMISSION H&P + ALEX DATE OF ADMISSION: 07/06/16 DATE OF SERVICE: 07/07/16 IDENTIFICATION STATEMENT: 75 year old woman with left femoral neck fracture s/p percutaneous pinning admitted for comprehensive inpatient rehabilitation. HISTORY OF PRESENT ILLNESS: Patient is a 75-year-old woman with multiple medical comorbidities including congestive heart failure, gastric cancer status post resection with PEG tube, and DVT diagnosed December 2015 who sustained a syncopal episode on 07/04/2016 in her home. Patient describes walking in her living room and turning on a lamp when she experienced lightheadedness and fell to the ground. Upon awakening she had severe left hip pain and was unable to ambulate. She was brought to [facility] where she was found to have a left femoral neck fracture. She also underwent workup for her syncope including cardiac enzymes, IV hydration, echocardiogram and CT of the head. 10/2016. She underwent percutaneous pinning 07/06/[address] Viera. She is toe- touch weight-bearing. Patient was also noted to have discharge from her PEG tube. Given that she has not been using the PEG, surgery was consults it for potential removal. She has been tolerating therapy well although there is a significant decline in her baseline functional status. As such, recommendation was for acute rehabilitation. PAST MEDICAL HISTORY: Coronary artery disease status post stent in 2003 PAF Hypothyroidism Gastric cancer status post resection in 2014 Dumping syndrome Anemia of chronic disease Severe proteins calorie malnutrition Gastroesophageal reflux disease Asthma DVT left lower limb diagnosed December 2015 PAST SURGICAL HISTORY: Gastric resection Percutaneous endoscopic gastrotomy tube placement Hysterectomy Cardiac stents Left ankle fracture Right hip fracture s/p GREER ALLERGIES: Atorvastatin, Rosuvastatin MEDICATIONS on acute medical floor: Vitamin D 50,000 units by mouth every Monday MiraLAX 1 packet by mouth daily Milk of magnesia 30 mL by mouth daily Diflucan 100 mg by mouth daily Lasix 20 mg by mouth daily Aldactone 25 mg by mouth daily Colace 100 mg by mouth twice a day Percocet 1 tab by mouth every 4 hours when necessary Morphine sulfate 2 mg IV nightly hours when necessary pain Nystatin twice a day Synthroid 0.05 mg by mouth daily Tylenol 650 mg by mouth every 4 hours when necessary Zofran 4 mg IV every 6 hours when necessary Albuterol nebulizers 2.5 mg every 4 hours when necessary for shortness of breath Albuterol on her dose inhaler 2 puffs every 4 hours when necessary shortness of breath Lovenox 50 mg subcutaneous every 12 hours Symbicort 160/4.5 g twice a day Ferrous sulfate 325 mg by mouth daily Folate acid 1 mg by mouth daily Protonix 40 mg by mouth daily FAMILY HISTORY: Patients son at the age of 52 of skin cancer on the neck ( squamous cell carcinoma). She has a daughter that is alive and well. Her of pancreatic cancer at the age of [age] years old. SOCIAL HISTORY: Patient reports a distant history of social smoking and drinking but quit many years ago. She denies any illicit drug use, past or present. She lives alone in a one-story house, there are 2 short steps to enter the house, no steps to manage once within the house. Review of Systems: General: no chills, +fatigue. Eyes: no change of vision, + OTC reading glasses. Ears, Nose & Throat: no sore throat, decreased hearing or nasal discharge. Cardiovascular: no chest pain, claudication, edema. Pul: + chronic chronic productive cough, has seen Dr. Baldwin. GI: + discomfort around and itching around PEG site; no abdominal pain, N/V. Genitourinary: no dysuria. Gynecological: vaginal bleeding, post-menopausal . Musculoskeletal: + Episodic back pain for which she takes an occasional tramadol; no neck/joint pain, no muscle pain. Neurological: no numbness, paresthesias, no tremors, seizures, MUNGUIA. Hematological: No bleeding disorders. Skin: Itching around PEG site. Psychiatric : no depression, anxiety, behavioral issues. VITAL SIGNS: 97.9 F; 61; 18; 114/55; 94% RA PHYSICAL EXAMINATION: GENERAL: Well nourished, well developed, sitting up in bed, no acute distress. HEENT: Normocephalic, atraumatic. No facial droop. No jugular venous distention (JVD). PERRL, EOMI CARDIOVASCULAR: S1, S2, regular rate. Mild diffuse swelling left lower limb, mild edema on the right distal limb, no calf tenderness bilaterally. LUNGS: Decreased breath sounds throughout, no wheezing, rhonchi or rales appreciated ABDOMEN: Soft, nontender, nondistended. +normoactive bowel sounds throughout.+ PEG, mild erythema surrounding, +discharge MUSCULOSKELETAL: Manual muscle testin/5 strength bilateral upper limbs in all major muscle groups. 5/5 strength right lower limb in all major muscle groups. 3-/5 hip flexors 4/5 left knee extension flexion, 5/5 left dorsi flexion /plantar flexion/EHL. Sensation: Intact to soft touch bilateral upper and lower limbs. Deep tendon reflexes: 3+ biceps and patellar bilaterally. NEUROLOGICAL: Alert and oriented x 3. Answers all questions appropriately. Able to follow commands without difficulty. SKIN: IV left UL, +well healed scar left knee; Left lateral hip/thigh surgical site covered with dressing, no visible drainage. LABORATORY DATA: 07/07/16: reviewed, see below IMAGING: X-ray hip 07/04/2016: Impacted subcapital fracture of the left femoral neck. Head CT 8 07/04/2016: Diffuse microvascular disease. No acute process Cervical spine CT 07/04/2016: No acute fracture. X-ray of the knee 07/04/2016 no acute fracture. Vascular ultrasound 07/04/2016: Left popliteal vessel incompletely visualized but small clot present. No clots in the right lower limb. FUNCTIONAL STATUS, Premorbid: Independent with ADLs and ambulation. Drove regularly. ASSESSMENT AND PLAN: 1. Left femoral neck fracture status post percutaneous pinning now with gait abnormality and dysfunctional ADLs: Patient is toe-touch weight-bearing left lower limb. She will undergo thorough physical and occupational therapy evaluations followed by daily intensive therapy. Rehabilitation nursing for bladder, bowel, medication management and wound care. 2. DVT prophylaxis: Patient with a history of DVT and small clot visualized on recent ultrasound. Will continue on Lovenox and transition back to Xarelto once PEG removed. Also provide SCD and GRAEME hose. 3. Pain: Patient reports using intermittent tramadol at home on an as-needed basis. She expressed to me her reluctance to take pain medication. In review of her medical record she is using both Percocet and IV morphine prn. Given recent surgery will continue patient on Percocet when necessary for severe pain , but also make available tramadol (her preferred pain medication) when necessary for moderate pain. Will also provide intermittent ice. 4. Diet/severe malnutrition: Prealbumin low. Will order nutritional supplements. Regular diet. 5. Bowel: Will provide patient with a bowel regimen to include Colace and senna scheduled along with milk of magnesia and MiraLAX on an as-needed basis. 6. Anemia, acute blood loss plus chronic disease: Iron remains low despite supplementation. Will increase to tid. 7. Electrolytes: Patient with recent hypokalemia that has resolved. Also with mild hypo-magnesium, now resolved. 8. PEG tube: Patient has been evaluated by Dr. Vides. Will clarify his recommendations regarding removal. POST ADMISSION PHYSICIAN EVALUATION: On evaluation of the patient today there' ve been no significant medical issues or functional changes as compared to those noted in the preadmission screening document. This patient's inpatient rehabilitation remains necessary in light of the above conditions. The patient' s medical condition requires specialized care with physicians specially trained in physical medicine rehabilitation. The patient is capable motivated to participate in a minimum of 3 hours of therapy daily, 5 days minimum per week, and requires intensive inpatient rehabilitation to improve their functional status so that they can be safely to discharge back to their home. PROGNOSIS: Good ESTIMATED LENGTH OF STAY: 10-14 days. / Vital Signs Vital Sign - Last 24 Hours 07/06/16 07/07/16 07/07/16 07/07/16 20:00 00:54 06:00 06:23 Temp 97.8 97.9 Pulse 83 61 Resp 18 18 17 18 B/P 124/58 114/55 Pulse Ox 92 94 O2 Delivery Room Air Room Air 07/07/16 06:53 Resp 18 Laboratory Data CBC/BMP Laboratory Tests 07/07/16 06:29 Calcium Level 7.5 L, Red Blood Count 2.96 L, Mean Corpuscular Volume 96.6 H, Mean Corpuscular Hemoglobin 31.5, Mean Corpuscular Hemoglobin Concent 32.7, Red Cell Distribution Width 13.3, Neutrophils (%) (Auto) 51.9, Lymphocytes (%) (Auto ) 23.9 L, Monocytes (%) (Auto) 6.9 H, Eosinophils (%) (Auto) 13.9 H, Basophils ( %) (Auto) 0.6, Neutrophils # (Auto) 2.0, Lymphocytes # (Auto) 1.0 L, Monocytes # (Auto) 0.3, Eosinophils # (Auto) 0.5, Basophils # (Auto) 0.0 Labs 24H Laboratory Tests 2 07/07/16 06:29: Anion Gap 6L, White Blood Count 3.9L, Red Blood Count 2.96L, Hemoglobin 9.3L, Hematocrit 28.6L, Mean Corpuscular Volume 96.6H, Mean Corpuscular Hemoglobin 31.5, Mean Corpuscular Hemoglobin Concent 32.7, Red Cell Distribution Width 13.3 , Platelet Count 161, Neutrophils (%) (Auto) 51.9, Lymphocytes (%) (Auto) 23.9L , Monocytes (%) (Auto) 6.9H, Eosinophils (%) (Auto) 13.9H, Basophils (%) (Auto) 0.6, Neutrophils # (Auto) 2.0, Lymphocytes # (Auto) 1.0L, Monocytes # (Auto) 0.3 , Eosinophils # (Auto) 0.5, Basophils # (Auto) 0.0, Blood Urea Nitrogen 11, Creatinine 0.65, Sodium Level 142, Potassium Level 4.1, Chloride Level 105, Carbon Dioxide Level 31, Calcium Level 7.5L, Ferritin 322H, Glomerular Filtration Rate > 60.0, Iron Level 16L, Large Unclassified Cells # 0.1, Large Unclassified Cells % 2.8, Magnesium Level 2.0, Prealbumin 6.2L, Total Iron Binding Capacity 115L, Transferrin % Saturation 13.9 Home Medications Scheduled Budesonide/Formoterol (Symbicort 160-4.5 Mcg/Act) 60 Puff/Inhaler Aers 2 PUFF INH BID (Reported) Ergocalciferol (Vitamin D) 50,000 Unit Cap 50,000 UNIT PO QWEEK (Reported) MONDAY Ferrous Sulfate (Ferrous Sulfate) 325 Mg Tab 325 MG PO DAILY (Reported) Fluconazole (Fluconazole) 100 Mg Tab 100 MG PO DAILY (Reported) Folic Acid (Folic Acid) 1 Mg Tab 1 MG PO DAILY (Reported) Furosemide (Furosemide) 20 Mg Tab 20 MG PO DAILY (Reported) Levothyroxine Sodium (Synthroid) 50 Mcg Tab 50 MCG PO QAM (Reported) Nystatin (Nystatin) 100,000 Unit/Gm Cre 1 DOSE TOP TID (Reported) APPLY TO JTUBE Pantoprazole Sodium (Pantoprazole Sodium) 40 Mg Tab 40 MG PO DAILY (Reported) Rivaroxaban (Xarelto) 20 Mg Tab 20 MG PO DAILY (Reported) Spironolactone (Spironolactone) 25 Mg Tab 25 MG PO DAILY (Reported) Scheduled PRN Albuterol Sulfate (Ventolin Hfa) 200 Puff/8 Gm Aers 2 PUFF INH Q4H PRN PRN SHORTNESS OF BREATH (Reported) Albuterol Sulfate (Albuterol Sulfate) 2.5 Mg/3 Ml Nebu 2.5 MG INH Q4H PRN PRN SHORTNESS OF BREATH (Reported) Tramadol HCl (Tramadol HCl) 50 Mg Tab 50 MG PO BID PRN PRN PAIN (Reported) Allergies Coded Allergies: Atorvastatin (Verified Adverse Reaction, Mild, MUSCLE PAIN AN ADR & HIVES NOTED ALTHOUGH TAKES VYTORIN, 11/06/14) Rosuvastatin (Verified Adverse Reaction, Mild, MUSCLE PAIN, 08/01/12) BARTOLO CONROY MD Jul 07, 2016 10:04
[2016-07-07] MEDS ORDERED: SODIUM CHLORIDE NASAL 0.65% SPRAY BTL (OCEAN) PRN (12:00)
[2016-07-07 14:36] VITALS: BP 145/61
[2016-07-07] MEDS ORDERED: CEFDINIR 300 MG CAP (OMNICEF) PO ONE (14:45)
[2016-07-07] MEDS: LACTOBACILLUS ACIDOPHILUS CAP (BACID) PO SCH ×2 (15:25→20:41)
[2016-07-07] MEDS: ONDANSETRON 4 MG TAB (S0181) PO PRN (16:26)
[2016-07-07 20:00] VITALS: BP 148/74
[2016-07-07] MEDS: CEFDINIR 300 MG CAP (OMNICEF) PO SCH (20:41)
[2016-07-08] MEDS: ENOXAPARIN 60 MG/0.6 ML SYR (J1650) SC SCH (00:09)
[2016-07-08] MEDS: LEVOTHYROXINE 0.05 MG TAB (50 MCG) PO SCH (05:31)
[2016-07-08 06:00] VITALS: BP 117/59
[2016-07-08] MEDS: ACETAMINOPHEN TAB 650MG DOSE (2X325MG) PO PRN (06:34)
[2016-07-08] MEDS: SYMBICORT 160/4.5MCG INHALER 6GM INH SCH ×2 (06:37→21:02)
[2016-07-08] MEDS: ONDANSETRON 4 MG TAB (S0181) PO PRN (08:34)
[2016-07-08] MEDS ORDERED: VITAMIN D 50,000 UNITS CAPSULE (ERGOCALCIFEROL 1.25MG) PO SCH (09:00)
[2016-07-08] MEDS: LACTOBACILLUS ACIDOPHILUS CAP (BACID) PO SCH ×3 (09:04→20:40)
[2016-07-08] MEDS: ASCORBIC ACID 500 MG TAB PO SCH ×3 (09:05→20:41)
[2016-07-08] MEDS: FERROUS GLUCONATE 324 MG TAB PO SCH ×3 (09:05→20:42)
[2016-07-08] MEDS: FLUCONAZOLE 100 MG TAB PO SCH (09:05)
[2016-07-08] MEDS: FOLIC ACID 1 MG TAB PO SCH (09:05)
[2016-07-08] MEDS: SPIRONOLACTONE 25 MG TAB PO SCH (09:05)
[2016-07-08] MEDS: PANTOPRAZOLE 40MG TAB (PROTONIX) PO SCH (09:05)
[2016-07-08] MEDS: CEFDINIR 300 MG CAP (OMNICEF) PO SCH ×2 (09:06→20:41)
[2016-07-08] MEDS: FUROSEMIDE 20 MG TAB PO SCH (09:06)
--- NOTE | 2016-07-08 11:16 | IPNPDOC ---
Social Work Lecturer Progress Note PROGRESS NOTE DATE OF ADMISSION: 07/06/16 DATE OF SERVICE: 07/08/16 IDENTIFICATION STATEMENT: 75 year old woman with left femoral neck fracture s/p percutaneous pinning admitted for comprehensive inpatient rehabilitation. PAST MEDICAL HISTORY: Coronary artery disease status post stent in 2003 PAF Hypothyroidism Gastric cancer status post resection in 2014 Dumping syndrome Anemia of chronic disease Severe proteins calorie malnutrition Gastroesophageal reflux disease Asthma DVT left lower limb diagnosed December 2015 PAST SURGICAL HISTORY: Gastric resection s/p J tube Hysterectomy Cardiac stents Left ankle fracture Right hip fracture s/p GREER ALLERGIES: Atorvastatin, Rosuvastatin MEDICATIONS: Omnicef 300mg bid Bacid 1 tid Vitamin D 50,000 units by mouth every Monday MiraLAX 1 packet by mouth daily prn Milk of magnesia 30 mL by mouth daily prn Diflucan 100 mg by mouth daily Lasix 20 mg by mouth daily Aldactone 25 mg by mouth daily Colace 100 mg by mouth twice a day Tramadol 50mg q6h prn mod pain Percocet 1 tab by PO q6h prn severe pain Synthroid 0.05 mg by mouth daily Tylenol 650 mg by mouth every 4 hours when necessary Zofran 4 mg PO every 8 hours when necessary Albuterol on her dose inhaler 2 puffs every 4 hours when necessary shortness of breath Lovenox 50 mg subcutaneous every 12 hours Symbicort 160/4.5 g twice a day Ferrous gluconate 325mg tid Vit C 500mg tid Folate acid 1 mg by mouth daily Protonix 40 mg by mouth daily SUBJECTIVE: Patient w/o complaints. Feeding tube removed last night. Feels better. Slept well. States no further incontinence. Denies any CP, SOB, N/V, C/D , dysuria. VITAL SIGNS: 97.6 F; 64; 18; 117/59; 92% RA PHYSICAL EXAMINATION: GENERAL: Well nourished, well developed, sitting up in bed, no acute distress. HEENT: Normocephalic, atraumatic. PERRL, EOMI CARDIOVASCULAR: S1, S2, regular rate. Mild diffuse swelling left lower limb, mild edema on the right distal limb, no calf tenderness bilaterally. LUNGS: No wheezing, rhonchi or rales b/l ABDOMEN: Soft, nontender, nondistended. +normoactive bowel sounds throughout. Prior feeding tube site with mod drainage, surrounding erythema MUSCULOSKELETAL: Manual muscle testin/5 strength bilateral upper limbs in all major muscle groups. 5/5 strength right lower limb in all major muscle groups. 3-/5 hip flexors 4/5 left knee extension flexion, 5/5 left dorsi flexion /plantar flexion/EHL. NEUROLOGICAL: Alert and oriented x 3. Answers all questions appropriately. Able to follow commands without difficulty. SKIN: +well healed scar left knee; Left lateral hip/thigh surgical site covered with optifoam, no visible drainage. LABORATORY DATA: 07/07/16: reviewed, see below IMAGING: X-ray hip 07/04/2016: Impacted subcapital fracture of the left femoral neck. Head CT 8 07/04/2016: Diffuse microvascular disease. No acute process Cervical spine CT 07/04/2016: No acute fracture. X-ray of the knee 07/04/2016 no acute fracture. Vascular ultrasound 07/04/2016: Left popliteal vessel incompletely visualized but small clot present. No clots in the right lower limb. FUNCTIONAL STATUS, Premorbid: Independent with ADLs and ambulation. Drove regularly. ASSESSMENT AND PLAN: 1. Left femoral neck fracture status post percutaneous pinning now with gait abnormality and dysfunctional ADLs: TTWB left lower limb. Continue daily physical and occupational therapy. Rehabilitation nursing for bladder, bowel, medication management and wound care. 2. DVT prophylaxis: Patient with a history of DVT and small clot visualized on recent ultrasound. Will switch back to Xarelto. Contine SCD and GRAEME hose. 3. Pain: Adequately controlled. Continue tramadol mod pain, Percocet when necessary for severe pain, Intermittent ice. 4. Diet/severe malnutrition: Prealbumin low. Continue nutritional supplements. Regular diet. 5. Bowel: Colace and senna scheduled along with milk of magnesia and MiraLAX on an as-needed basis. 6. Anemia, acute blood loss plus chronic disease: Iron supplementation s/p increase to tid. 7. Electrolytes: Patient with recent hypokalemia that has resolved. Also with mild hypo-magnesium, now resolved. / Vital Signs Vital Sign - Last 24 Hours 07/07/16 07/07/16 07/07/16 07/07/16 14:32 14:36 20:00 20:42 Temp 97.1 97.6 Pulse 77 76 Resp 18 18 18 18 B/P 145/61 148/74 Pulse Ox 92 99 O2 Delivery Room Air Room Air 07/07/16 07/08/16 21:12 06:00 Temp 97.6 Pulse 64 Resp 18 18 B/P 117/59 Pulse Ox 92 O2 Delivery Room Air Allergies Allergies: Coded Allergies: Atorvastatin (Verified Adverse Reaction, Mild, MUSCLE PAIN AN ADR & HIVES NOTED ALTHOUGH TAKES VYTORIN, 11/06/14) Rosuvastatin (Verified Adverse Reaction, Mild, MUSCLE PAIN, 08/01/12) Current Medications Current Medications Current Medications Acetaminophen (Tylenol Tab) 650 mg Q4HP PRN PO MILD PAIN (PS 1-4) Last administered on 07/08/16 06:34; Start 07/06/16 at 15:30; Stop 08/05/16 at 15:29 Albuterol Sulfate (Proventil, Ventolin Hfa) 2 puff Q4HP PRN INH SHORTNESS OF BREATH; Start 07/06/16 at 16:00; Stop 08/05/16 at 15:59 Ascorbic Acid (Vitamin C) 500 mg BID PO Last administered on 07/07/16 09:00; Start 07/06/16 at 21:00; Stop 07/07/16 at 10:06; Status DC Ascorbic Acid (Vitamin C) 500 mg TID PO Last administered on 07/08/16 09:05; Start 07/07/16 at 16:00; Stop 08/06/16 at 15:59 Budesonide/ Formoterol Fumarate (Symbicort 160/ 4.5mcg) 2 puff BID INH Last administered on 07/08/16 06:37; Start 07/06/16 at 21:00; Stop 08/05/16 at 20:59 Calcium Carbonate (Oscal) 500 mg TID PO Last administered on 07/07/16 15:26; Start 07/07/16 at 09:00; Stop 07/07/16 at 16:04; Status DC Cefdinir (Omnicef) 300 mg BID PO Last administered on 07/08/16 09:06; Start at 21:00; Stop 07/14/16 at 20:59 Enoxaparin Sodium (Lovenox) 50 mg Q12H SC Last administered on 07/08/16 00:09 ; Start 07/07/16 at 00:00; Stop 07/12/16 at 00:00 Ferrous Gluconate (Fergon) 324 mg BID PO Last administered on 07/07/16 08:59; Start 07/06/16 at 21:00; Stop 07/07/16 at 10:06; Status DC Ferrous Gluconate (Fergon) 324 mg TID PO Last administered on 07/08/16 09:05; Start 07/07/16 at 16:00; Stop 08/06/16 at 15:59 Fluconazole (Diflucan) 100 mg DAILY PO Last administered on 07/08/16 09:05; Start 07/07/16 at 09:00; Stop 07/14/16 at 08:59 Folic Acid (Folic Acid) 1 mg DAILY PO Last administered on 07/08/16 09:05; Start 07/07/16 at 09:00; Stop 08/06/16 at 08:59 Furosemide (Lasix) 20 mg DAILY PO Last administered on 07/08/16 09:06; Start 07/07/16 at 09:00; Stop 08/06/16 at 08:59 Lactobacillus Acidophilus (Bacid) 1 ea TID PO Last administered on 07/08/16 09 :04; Start 07/07/16 at 16:00; Stop 08/06/16 at 15:59 Levothyroxine Sodium (Synthroid) 0.05 mg DAILY@06 PO Last administered on 05:31; Start 07/07/16 at 06:00; Stop 08/06/16 at 05:59 Magnesium Hydroxide (Milk Of Magnesia) 30 ml DAILYPRN PRN PO CONSTIPATION; Start 07/06/16 at 15:30; Stop 08/05/16 at 15:29 Ondansetron HCl (Zofran) 4 mg Q8HP PRN PO NAUSEA OR VOMITING Last administered on 07/08/16 08:34; Start 07/07/16 at 16:15; Stop 08/06/16 at 16:14 Oxycodone/ Acetaminophen (Percocet 5mg/ 325mg Tablet) 1 tab Q4HP PRN PO SEVERE PAIN (PS 8-10); Start 07/06/16 at 15:30; Stop 07/13/16 at 15:29 Pantoprazole Sodium (Protonix) 40 mg DAILY PO Last administered on 07/08/16 09 :05; Start 07/07/16 at 09:00; Stop 08/06/16 at 08:59 Polyethylene Glycol (Miralax) 1 pkt DAILY PRN PO CONSTIPATION; Start 07/06/16 at 15:30; Stop 08/05/16 at 15:29 Sodium Chloride ([place] Nasal [place]) 2 spray Q2HP PRN NA NASAL DRYNESS; Start at 12:00; Stop 08/06/16 at 11:59 Spironolactone (Aldactone) 25 mg DAILY PO Last administered on 07/08/16 09:05 ; Start 07/07/16 at 09:00; Stop 08/06/16 at 08:59 Tramadol HCl (Ultram) 50 mg Q4HP PRN PO MODERATE PAIN (PS 5-7) Last administered on 07/07/16 20:42; Start 07/06/16 at 16:30; Stop 07/13/16 at 16:29 Vitamin D (Drisdol) 50,000 units Fr@09 PO Last administered on 07/08/16 09:05 ; Start 07/08/16 at 09:00; Stop 08/07/16 at 08:59 BARTOLO CONROY MD Jul 08, 2016 11:16
[2016-07-08 14:00] VITALS: BP 156/69
[2016-07-08] MEDS ORDERED: BISACODYL 10 MG SUPP PR ONE (15:00)
[2016-07-08] MEDS: RIVAROXABAN 20 MG TAB (XARELTO) PO SCH (17:13)
[2016-07-08] MEDS: traMADol 50 MG TAB PO PRN (17:15)
[2016-07-08 20:00] VITALS: BP 145/69
[2016-07-08] MEDS: PERCOCET 5MG/325MG TAB PO PRN (20:42)
[2016-07-09] MEDS: LEVOTHYROXINE 0.05 MG TAB (50 MCG) PO SCH (05:14)
[2016-07-09 06:00] VITALS: BP 142/67
[2016-07-09 06:38] LABS: BASO % 0.5 % (0.0-1.0); EOS # 0.6 K/mm3 (0.0-0.50); EOS % 18.1 % (0.0-3.0); LARGE UNSTAINED CELL # 0.1 K/mm3 (0.0-0.4); LARGE UNSTAINED CELL % 2.1 % (0.0-4.0); LYMPH # 0.9 K/mm3 (1.5-4.5); LYMPH % 26.2 % (24.0-44.0); MEAN CORPUSCULAR HEMOGLOBIN 31.3 pg (27.0-33.0); MEAN CORPUSCULAR HGB CONC 32.6 g/dl (32.0-36.5); MEAN CORPUSCULAR VOLUME 95.9 fl (80.0-96.0); MONO # 0.2 K/mm3 (0.0-0.8); MONO % 6.9 % (0.0-5.0); NEUTROPHILS # 1.5 K/mm3 (1.8-7.7); NEUTROPHILS % 46.1 % (36.0-66.0); PLATELET COUNT, AUTOMATED 205 k/mm3 (150-450); RED CELL DISTRIBUTION WIDTH 13.3 % (11.5-14.5); WHITE BLOOD COUNT 3.3 K/mm3 (4.0-10.0)
[2016-07-09 06:56] LABS: ANION GAP 6 MEQ/L (8-16); BLOOD UREA NITROGEN 12 MG/DL (7-18); CARBON DIOXIDE LEVEL 31 MEQ/L (21-32); CHLORIDE LEVEL 104 MEQ/L (98-107); CREATININE FOR GFR 0.57 MG/DL (0.55-1.02); GLOMERULAR FILTRATION RATE > 60.0 (>39); GLUCOSE, FASTING 80 MG/DL (83-110); POTASSIUM SERUM 4.1 MEQ/L (3.5-5.1); SODIUM LEVEL 141 MEQ/L (136-145)
[2016-07-09] MEDS: SYMBICORT 160/4.5MCG INHALER 6GM INH SCH ×2 (07:32→19:54)
[2016-07-09] MEDS: PANTOPRAZOLE 40MG TAB (PROTONIX) PO SCH (08:10)
[2016-07-09] MEDS: FERROUS GLUCONATE 324 MG TAB PO SCH ×3 (08:10→21:34)
[2016-07-09] MEDS: LACTOBACILLUS ACIDOPHILUS CAP (BACID) PO SCH ×3 (08:10→21:33)
[2016-07-09] MEDS: CEFDINIR 300 MG CAP (OMNICEF) PO SCH ×2 (08:10→21:33)
[2016-07-09] MEDS: FUROSEMIDE 20 MG TAB PO SCH (08:10)
[2016-07-09] MEDS: ASCORBIC ACID 500 MG TAB PO SCH ×3 (08:10→21:34)
[2016-07-09] MEDS: FOLIC ACID 1 MG TAB PO SCH (08:11)
[2016-07-09] MEDS: FLUCONAZOLE 100 MG TAB PO SCH (08:11)
[2016-07-09] MEDS: traMADol 50 MG TAB PO PRN (08:11)
[2016-07-09] MEDS: SPIRONOLACTONE 25 MG TAB PO SCH (08:11)
[2016-07-09] MEDS: PERCOCET 5MG/325MG TAB PO PRN ×2 (10:21→23:07)
[2016-07-09 14:00] VITALS: BP 114/91
[2016-07-09] MEDS: RIVAROXABAN 20 MG TAB (XARELTO) PO SCH (18:04)
[2016-07-09 20:00] VITALS: BP 133/60
[2016-07-10 06:00] VITALS: BP 159/72
[2016-07-10] MEDS: LEVOTHYROXINE 0.05 MG TAB (50 MCG) PO SCH (06:27)
[2016-07-10] MEDS: SYMBICORT 160/4.5MCG INHALER 6GM INH SCH ×2 (07:22→19:41)
[2016-07-10 08:20] VITALS: BP 159/74
[2016-07-10 09:05] LABS: BASO % 0.5 % (0.0-1.0); EOS # 0.4 K/mm3 (0.0-0.50); EOS % 8.4 % (0.0-3.0); LARGE UNSTAINED CELL # 0.1 K/mm3 (0.0-0.4); LARGE UNSTAINED CELL % 1.7 % (0.0-4.0); LYMPH # 0.6 K/mm3 (1.5-4.5); LYMPH % 10.4 % (24.0-44.0); MEAN CORPUSCULAR HEMOGLOBIN 31.1 pg (27.0-33.0); MEAN CORPUSCULAR HGB CONC 31.4 g/dl (32.0-36.5); MEAN CORPUSCULAR VOLUME 98.9 fl (80.0-96.0); MONO # 0.3 K/mm3 (0.0-0.8); MONO % 5.1 % (0.0-5.0); NEUTROPHILS % 73.8 % (36.0-66.0); PLATELET COUNT, AUTOMATED 225 k/mm3 (150-450); RED CELL DISTRIBUTION WIDTH 13.3 % (11.5-14.5); WHITE BLOOD COUNT 5.4 K/mm3 (4.0-10.0)
[2016-07-10 09:28] LABS: ANION GAP 8 MEQ/L (8-16); BLOOD UREA NITROGEN 13 MG/DL (7-18); CARBON DIOXIDE LEVEL 30 MEQ/L (21-32); CHLORIDE LEVEL 103 MEQ/L (98-107); CREATININE FOR GFR 0.67 MG/DL (0.55-1.02); GLOMERULAR FILTRATION RATE > 60.0 (>39); GLUCOSE, FASTING 129 MG/DL (83-110); POTASSIUM SERUM 4.1 MEQ/L (3.5-5.1); SODIUM LEVEL 141 MEQ/L (136-145)
[2016-07-10] MEDS: FERROUS GLUCONATE 324 MG TAB PO SCH ×3 (09:45→20:38)
[2016-07-10] MEDS: ASCORBIC ACID 500 MG TAB PO SCH ×3 (09:45→20:38)
[2016-07-10] MEDS: CEFDINIR 300 MG CAP (OMNICEF) PO SCH ×2 (09:45→20:38)
[2016-07-10] MEDS: FOLIC ACID 1 MG TAB PO SCH (09:45)
[2016-07-10] MEDS: PANTOPRAZOLE 40MG TAB (PROTONIX) PO SCH (09:45)
[2016-07-10] MEDS: FUROSEMIDE 20 MG TAB PO SCH (09:45)
[2016-07-10] MEDS: PERCOCET 5MG/325MG TAB PO PRN (09:45)
[2016-07-10] MEDS: FLUCONAZOLE 100 MG TAB PO SCH (09:45)
[2016-07-10] MEDS: SPIRONOLACTONE 25 MG TAB PO SCH (09:45)
[2016-07-10] MEDS: LACTOBACILLUS ACIDOPHILUS CAP (BACID) PO SCH ×3 (09:45→20:38)
[2016-07-10] MEDS: ONDANSETRON 4 MG TAB (S0181) PO PRN (11:40)
--- NOTE | 2016-07-10 12:31 | ECGEPIP ---
Stationary ECG Study [facility] Test Date: 2016-07-10 Pat Name: SUE URENA Department: Room: [place] [address] Gender: F Stiff Leg Operator: DONNIE : 1940 Requested By: BARTOLO Smith Order Number: [id number] Reading MD: Enma Christie Measurements Intervals [place] Rate: 82 P: 48 MO: 166 QRS: -13 QRSD: 89 T: -21 QT: 366 QTc: 428 Interpretive Statements SINUS RHYTHM PAC ABSENT Left axis deviation PROB LATERAL EARLY REPOLAR CHANGES NEW C/W 07/04/16 CLIN PERLA Electronically Signed On 07-10-2016 12:30:55 EDT by Enma Christie
[2016-07-10 14:00] VITALS: BP 138/63
[2016-07-10] MEDS: traMADol 50 MG TAB PO PRN (17:05)
[2016-07-10] MEDS: RIVAROXABAN 20 MG TAB (XARELTO) PO SCH (17:05)
[2016-07-10 20:00] VITALS: BP 97/53
[2016-07-10] MEDS: ACETAMINOPHEN TAB 650MG DOSE (2X325MG) PO PRN (20:39)
[2016-07-10] MEDS: MIRALAX *UNIT DOSE* 17GM PACKET PO PRN (20:40)
[2016-07-10 20:45] VITALS: BP 112/58
[2016-07-11] MEDS: LEVOTHYROXINE 0.05 MG TAB (50 MCG) PO SCH (05:48)
[2016-07-11 06:00] VITALS: BP 132/60
[2016-07-11] MEDS: ONDANSETRON 4 MG TAB (S0181) PO PRN (07:12)
[2016-07-11 07:15] LABS: BASO % 0.6 % (0.0-1.0); EOS # 0.2 K/mm3 (0.0-0.50); EOS % 5.4 % (0.0-3.0); LARGE UNSTAINED CELL # 0.1 K/mm3 (0.0-0.4); LARGE UNSTAINED CELL % 2.5 % (0.0-4.0); LYMPH # 0.9 K/mm3 (1.5-4.5); LYMPH % 18.9 % (24.0-44.0); MEAN CORPUSCULAR HEMOGLOBIN 32.1 pg (27.0-33.0); MEAN CORPUSCULAR HGB CONC 33.3 g/dl (32.0-36.5); MEAN CORPUSCULAR VOLUME 96.6 fl (80.0-96.0); MONO # 0.3 K/mm3 (0.0-0.8); MONO % 6.6 % (0.0-5.0); NEUTROPHILS # 2.9 K/mm3 (1.8-7.7); PLATELET COUNT, AUTOMATED 214 k/mm3 (150-450); RED CELL DISTRIBUTION WIDTH 13.5 % (11.5-14.5); WHITE BLOOD COUNT 4.4 K/mm3 (4.0-10.0)
[2016-07-11 07:28] LABS: ANION GAP 7 MEQ/L (8-16); BLOOD UREA NITROGEN 16 MG/DL (7-18); CARBON DIOXIDE LEVEL 34 MEQ/L (21-32); CHLORIDE LEVEL 99 MEQ/L (98-107); CREATININE FOR GFR 0.68 MG/DL (0.55-1.02); GLOMERULAR FILTRATION RATE > 60.0 (>39); GLUCOSE, FASTING 93 MG/DL (83-110); POTASSIUM SERUM 3.9 MEQ/L (3.5-5.1); SODIUM LEVEL 140 MEQ/L (136-145)
[2016-07-11] MEDS: CEFDINIR 300 MG CAP (OMNICEF) PO SCH ×2 (08:58→20:25)
[2016-07-11] MEDS: PANTOPRAZOLE 40MG TAB (PROTONIX) PO SCH (08:58)
[2016-07-11] MEDS: FOLIC ACID 1 MG TAB PO SCH (08:58)
[2016-07-11] MEDS: FERROUS GLUCONATE 324 MG TAB PO SCH ×3 (08:58→20:25)
[2016-07-11] MEDS: LACTOBACILLUS ACIDOPHILUS CAP (BACID) PO SCH ×3 (08:58→20:25)
[2016-07-11] MEDS: FUROSEMIDE 20 MG TAB PO SCH (08:58)
[2016-07-11] MEDS: ASCORBIC ACID 500 MG TAB PO SCH ×3 (08:59→20:25)
[2016-07-11] MEDS: FLUCONAZOLE 100 MG TAB PO SCH (08:59)
[2016-07-11] MEDS: SPIRONOLACTONE 25 MG TAB PO SCH (08:59)
[2016-07-11] MEDS: SYMBICORT 160/4.5MCG INHALER 6GM INH SCH ×2 (09:40→21:13)
[2016-07-11] MEDS ORDERED: ISOVUE-370 76% 100ML VIAL (Q9967) As Ordered ONE (10:15)
--- NOTE | 2016-07-11 10:39 | IPNPDOC ---
[employer] Progress Note PROGRESS NOTE DATE OF SERVICE: 07/11/16 IDENTIFICATION STATEMENT: 75 year old woman with left femoral neck fracture s/p percutaneous pinning admitted for comprehensive inpatient rehabilitation. PAST MEDICAL HISTORY: Coronary artery disease status post stent in 2003 PAF Hypothyroidism Gastric cancer status post resection in 2014 Dumping syndrome Anemia of chronic disease Severe proteins calorie malnutrition Gastroesophageal reflux disease Asthma DVT left lower limb diagnosed December 2015 PAST SURGICAL HISTORY: Gastric resection s/p J tube Hysterectomy Cardiac stents Left ankle fracture Right hip fracture s/p GREER ALLERGIES: Atorvastatin, Rosuvastatin MEDICATIONS: Omnicef 300mg bid Bacid 1 tid Xarelto 20mg daily Diflucan 100 mg by mouth daily Lasix 20 mg by mouth daily Aldactone 25 mg by mouth daily Colace 100 mg by mouth twice a day Tramadol 50mg q6h prn mod pain Percocet 1 tab by PO q6h prn severe pain Synthroid 0.05 mg by mouth daily Tylenol 650 mg by mouth every 4 hours when necessary Zofran 4 mg PO every 8 hours when necessary Albuterol on her dose inhaler 2 puffs every 4 hours when necessary shortness of breath Symbicort 160/4.5 g twice a day Ferrous gluconate 325mg tid Vit C 500mg tid Folate acid 1 mg by mouth daily Protonix 40 mg by mouth daily Vitamin D 50,000 units by mouth every Monday MiraLAX 1 packet by mouth daily prn Milk of magnesia 30 mL by mouth daily prn SUBJECTIVE: Patient with complaints of feeling tired and palpitations. Still has CP, centrally and left lateral. Hurts to breath in. Denies any chills, SOB or diaphoresis. Not eating much, vomited this morning after breakfast. Has been drinking 3 Ensure daily w/o vomiting. No further urinary incontinence. Denies dysuria. VITAL SIGNS: 98.2 F; 68; 18; 132/60; 94% RA PHYSICAL EXAMINATION: GENERAL: Well nourished, well developed, sitting up in chair, no acute distress. HEENT: Normocephalic, atraumatic. PERRL, EOMI CARDIOVASCULAR: S1, S2, irregular rate, episodic tachycardia. No significant calf edema or tenderness bilaterally. LUNGS: +crackles, and left midway up. No wheezing ABDOMEN: Soft, nontender, nondistended. +normoactive bowel sounds throughout. Prior feeding tube site covered with dressing, no visible drainage MUSCULOSKELETAL: MMT: 5/5 strength bilateral upper limbs in all major muscle groups. 5/5 strength right lower limb in all major muscle groups. 3-/5 hip flexors 4/5 left knee extension flexion, 5/5 left dorsi flexion/plantar flexion/ EHL. NEUROLOGICAL: Alert and oriented x 3. Answers all questions appropriately. Able to follow commands without difficulty. SKIN: +well healed scar left knee; Left lateral hip/thigh surgical site covered with optifoam, no visible drainage. LABORATORY DATA: 07/11/16: reviewed, see below IMAGING: X-ray hip 07/04/2016: Impacted subcapital fracture of the left femoral neck. Head CT 8 07/04/2016: Diffuse microvascular disease. No acute process Cervical spine CT 07/04/2016: No acute fracture. X-ray of the knee 07/04/2016 no acute fracture. Vascular ultrasound 07/04/2016: Left popliteal vessel incompletely visualized but small clot present. No clots in the right lower limb. FUNCTIONAL STATUS, Premorbid: Independent with ADLs and ambulation. Drove regularly. ASSESSMENT AND PLAN: 1. Left femoral neck fracture status post percutaneous pinning now with gait abnormality and dysfunctional ADLs: TTWB left lower limb. Continue daily physical and occupational therapy. Rehabilitation nursing for bladder, bowel, medication management and wound care. 2. DVT prophylaxis: Patient with a history of DVT and small clot visualized on recent ultrasound. Was on therapeutic Lovenox and switch back to Xarelto . Continue SCD and GRAEME hose. 3. Pleuritic CP: Also with low grade, tachycardia. Will obtain imaging to eval for pna and PE. Will also obtain repeat troponin level. 4. Pain, hip: Adequately controlled. Continue tramadol mod pain, Percocet when necessary for severe pain, Intermittent ice. 5. H/o gastric CA/feeding tube: Tube removed 07/07/16; No recent leaking. Continue dressing. 6. Diet/severe malnutrition: Prealbumin low. Continue nutritional supplements. Regular diet. 7. Bowel: Constipation resolved. Colace and senna scheduled along with milk of magnesia and MiraLAX on an as-needed basis. 8. Anemia, acute blood loss plus chronic disease: Continue iron supplementation s/p increase to tid last week. 9. Electrolytes: Hypokalemia, resolved. Hypomagnesium, resolved. / Vital Signs Vital Sign - Last 24 Hours 07/10/16 07/10/16 07/10/16 07/10/16 14:00 17:05 17:40 20:00 Temp 99.0 100.1 Pulse 85 89 Resp 18 18 18 18 B/P 138/63 97/53 Pulse Ox 95 91 O2 Delivery Room Air Room Air 07/10/16 07/11/16 20:45 06:00 Temp 99.1 98.2 Pulse 68 Resp 18 B/P 112/58 132/60 Pulse Ox 93 94 O2 Delivery Room Air Room Air Laboratory Data CBC/BMP Laboratory Tests 07/11/16 06:34 Calcium Level 8.0 L, Red Blood Count 2.85 L, Mean Corpuscular Volume 96.6 H, Mean Corpuscular Hemoglobin 32.1, Mean Corpuscular Hemoglobin Concent 33.3, Red Cell Distribution Width 13.5, Neutrophils (%) (Auto) 66.0, Lymphocytes (%) (Auto ) 18.9 L, Monocytes (%) (Auto) 6.6 H, Eosinophils (%) (Auto) 5.4 H, Basophils (% ) (Auto) 0.6, Neutrophils # (Auto) 2.9, Lymphocytes # (Auto) 0.9 L, Monocytes # (Auto) 0.3, Eosinophils # (Auto) 0.2, Basophils # (Auto) 0.0 Labs 24H Laboratory Tests 2 07/11/16 06:34: Anion Gap 7L, White Blood Count 4.4, Red Blood Count 2.85L, Hemoglobin 9.2L, Hematocrit 27.5L, Mean Corpuscular Volume 96.6H, Mean Corpuscular Hemoglobin 32.1, Mean Corpuscular Hemoglobin Concent 33.3, Red Cell Distribution Width 13.5 , Platelet Count 214, Neutrophils (%) (Auto) 66.0, Lymphocytes (%) (Auto) 18.9L , Monocytes (%) (Auto) 6.6H, Eosinophils (%) (Auto) 5.4H, Basophils (%) (Auto) 0.6, Neutrophils # (Auto) 2.9, Lymphocytes # (Auto) 0.9L, Monocytes # (Auto) 0.3 , Eosinophils # (Auto) 0.2, Basophils # (Auto) 0.0, Blood Urea Nitrogen 16, Creatinine 0.68, Sodium Level 140, Potassium Level 3.9, Chloride Level 99, Carbon Dioxide Level 34H, Calcium Level 8.0L, Glomerular Filtration Rate > 60.0 , Large Unclassified Cells # 0.1, Large Unclassified Cells % 2.5 Allergies Allergies: Coded Allergies: Atorvastatin (Verified Adverse Reaction, Mild, MUSCLE PAIN AN ADR & HIVES NOTED ALTHOUGH TAKES VYTORIN, 11/06/14) Rosuvastatin (Verified Adverse Reaction, Mild, MUSCLE PAIN, 08/01/12) Current Medications Current Medications Current Medications Acetaminophen (Tylenol Tab) 650 mg Q4HP PRN PO MILD PAIN (PS 1-4) Last administered on 07/10/16 20:39; Start 07/06/16 at 15:30; Stop 08/05/16 at 15:29 Albuterol Sulfate (Proventil, Ventolin Hfa) 2 puff Q4HP PRN INH SHORTNESS OF BREATH; Start 07/06/16 at 16:00; Stop 08/05/16 at 15:59 Ascorbic Acid (Vitamin C) 500 mg BID PO Last administered on 07/07/16 09:00; Start 07/06/16 at 21:00; Stop 07/07/16 at 10:06; Status DC Ascorbic Acid (Vitamin C) 500 mg TID PO Last administered on 07/11/16 08:59; Start 07/07/16 at 16:00; Stop 08/06/16 at 15:59 Budesonide/ Formoterol Fumarate (Symbicort 160/ 4.5mcg) 2 puff BID INH Last administered on 07/11/16 09:40; Start 07/06/16 at 21:00; Stop 08/05/16 at 20:59 Calcium Carbonate (Oscal) 500 mg TID PO Last administered on 07/07/16 15:26; Start 07/07/16 at 09:00; Stop 07/07/16 at 16:04; Status DC Cefdinir (Omnicef) 300 mg BID PO Last administered on 07/11/16 08:58; Start at 21:00; Stop 07/14/16 at 20:59 Enoxaparin Sodium (Lovenox) 50 mg Q12H SC Last administered on 07/08/16 00:09 ; Start 07/07/16 at 00:00; Stop 07/08/16 at 11:20; Status DC Ferrous Gluconate (Fergon) 324 mg BID PO Last administered on 07/07/16 08:59; Start 07/06/16 at 21:00; Stop 07/07/16 at 10:06; Status DC Ferrous Gluconate (Fergon) 324 mg TID PO Last administered on 07/11/16 08:58; Start 07/07/16 at 16:00; Stop 08/06/16 at 15:59 Fluconazole (Diflucan) 100 mg DAILY PO Last administered on 07/11/16 08:59; Start 07/07/16 at 09:00; Stop 07/14/16 at 08:59 Folic Acid (Folic Acid) 1 mg DAILY PO Last administered on 07/11/16 08:58; Start 07/07/16 at 09:00; Stop 08/06/16 at 08:59 Furosemide (Lasix) 20 mg DAILY PO Last administered on 07/11/16 08:58; Start 07/07/16 at 09:00; Stop 08/06/16 at 08:59 Lactobacillus Acidophilus (Bacid) 1 ea TID PO Last administered on 07/11/16 08 :58; Start 07/07/16 at 16:00; Stop 08/06/16 at 15:59 Levothyroxine Sodium (Synthroid) 0.05 mg DAILY@06 PO Last administered on 05:48; Start 07/07/16 at 06:00; Stop 08/06/16 at 05:59 Magnesium Hydroxide (Milk Of Magnesia) 30 ml DAILYPRN PRN PO CONSTIPATION; Start 07/06/16 at 15:30; Stop 08/05/16 at 15:29 Ondansetron HCl (Zofran) 4 mg Q8HP PRN PO NAUSEA OR VOMITING Last administered on 07/11/16 07:12; Start 07/07/16 at 16:15; Stop 08/06/16 at 16:14 Oxycodone/ Acetaminophen (Percocet 5mg/ 325mg Tablet) 1 tab Q4HP PRN PO SEVERE PAIN (PS 8-10) Last administered on 07/10/16 09:45; Start 07/06/16 at 15:30; Stop 07/13/16 at 15:29 Pantoprazole Sodium (Protonix) 40 mg DAILY PO Last administered on 07/11/16 08 :58; Start 07/07/16 at 09:00; Stop 08/06/16 at 08:59 Polyethylene Glycol (Miralax) 1 pkt DAILY PRN PO CONSTIPATION Last administered on 07/10/16 20:40; Start 07/06/16 at 15:30; Stop 08/05/16 at 15:29 Rivaroxaban (Xarelto) 20 mg DAILY@18 PO Last administered on 07/10/16 17:05; Start 07/08/16 at 18:00; Stop 07/15/16 at 17:59 Sodium Chloride ([place] Nasal [place]) 2 spray Q2HP PRN NA NASAL DRYNESS; Start at 12:00; Stop 08/06/16 at 11:59 Spironolactone (Aldactone) 25 mg DAILY PO Last administered on 07/11/16 08:59 ; Start 07/07/16 at 09:00; Stop 08/06/16 at 08:59 Tramadol HCl (Ultram) 50 mg Q4HP PRN PO MODERATE PAIN (PS 5-7) Last administered on 07/10/16 17:05; Start 07/06/16 at 16:30; Stop 07/13/16 at 16:29 Vitamin D (Drisdol) 50,000 units Fr@09 PO Last administered on 07/08/16 09:05 ; Start 07/08/16 at 09:00; Stop 08/07/16 at 08:59 BARTOLO CONROY MD Jul 11, 2016 10:39
[2016-07-11] MEDS: PERCOCET 5MG/325MG TAB PO PRN ×2 (10:50→23:04)
--- NOTE | 2016-07-11 11:04 | REP ---
CT pulmonary angiogram: With IV contrast. History: Tachycardia and chest pain, evaluate for pulmonary embolus. Comparison studies: Comparison chest CT study with contrast from May 21, 2014. Contrast dose: 75 cc's of Isovue [address] technique: Helical scanning is acquired and overlapping 1.5 mm and contiguous 3 mm axial images are reformatted. In addition, a 3-D work station is deployed to generate thick slab maximum intensity projection images in sagittal and coronal imaging projections. CT pulmonary angiographic findings: There is good opacification of the pulmonary arterial tree. There is no CT evidence of pulmonary embolism. Vascular calcification is observed. The thoracic aorta is calcified but otherwise intact in contrast enhancement pattern and contour. No aneurysm or dissection is seen. There are small bilateral pleural effusions noted. A small pericardial effusion is noted. There appears to be diffuse left ventricular hypertrophy. There is compressive atelectatic change in the right lower lobe and to a lesser extent left lower lobe. There is a strand-like density across the tracheal lumen consistent with mucoid material. No infiltrate is seen in the lung rendon. There are surgical sutures in the upper abdomen to the left of midline consistent with gastric bypass procedure. No bony destructive lesion is appreciated. Impression: 1. No CT evidence of pulmonary embolus. 2. Small bilateral pleural effusions and small pericardial effusion. 3. Left ventricular hypertrophy pattern. Signed by Palmer Redd MD 07/11/2016 12:27 P
--- NOTE | 2016-07-11 11:38 | REP ---
Chest x-ray: Two views. History: Productive cough, evaluate for pneumonia. Comparison study: July 04, 2016. Findings: There is blunting of the posterior and lateral pleural angles consistent with small bilateral effusions. Mild cardiomegaly is observed. No new infiltrate is seen. The aorta is somewhat tortuous. There are degenerative changes in the thoracic spine. Impression: Blunted pleural angles bilaterally. Mild cardiomegaly. No new infiltrate seen. Signed by Pamler Redd MD 07/11/2016 12:28 P
[2016-07-11] MEDS: SUCRALFATE SUSP 1GM/10ML UD PO SCH ×3 (11:51→20:24)
[2016-07-11 14:00] VITALS: BP 120/73
[2016-07-11] MEDS: RIVAROXABAN 20 MG TAB (XARELTO) PO SCH (17:21)
[2016-07-11 20:00] VITALS: BP 125/55
[2016-07-12 06:00] VITALS: BP 135/60
[2016-07-12] MEDS: LEVOTHYROXINE 0.05 MG TAB (50 MCG) PO SCH (06:08)
[2016-07-12] MEDS: SUCRALFATE SUSP 1GM/10ML UD PO SCH ×4 (06:54→20:45)
[2016-07-12 07:19] LABS: BASO % 0.8 % (0.0-1.0); EOS # 0.4 K/mm3 (0.0-0.50); EOS % 10.9 % (0.0-3.0); LARGE UNSTAINED CELL # 0.1 K/mm3 (0.0-0.4); LARGE UNSTAINED CELL % 3.4 % (0.0-4.0); LYMPH % 23.3 % (24.0-44.0); MEAN CORPUSCULAR HEMOGLOBIN 31.7 pg (27.0-33.0); MEAN CORPUSCULAR HGB CONC 32.8 g/dl (32.0-36.5); MEAN CORPUSCULAR VOLUME 96.5 fl (80.0-96.0); MONO # 0.2 K/mm3 (0.0-0.8); MONO % 6.4 % (0.0-5.0); NEUTROPHILS # 2.1 K/mm3 (1.8-7.7); NEUTROPHILS % 55.2 % (36.0-66.0); PLATELET COUNT, AUTOMATED 244 k/mm3 (150-450); RED CELL DISTRIBUTION WIDTH 13.4 % (11.5-14.5); WHITE BLOOD COUNT 3.7 K/mm3 (4.0-10.0)
[2016-07-12 07:36] LABS: ANION GAP 5 MEQ/L (8-16); BLOOD UREA NITROGEN 16 MG/DL (7-18); CARBON DIOXIDE LEVEL 33 MEQ/L (21-32); CHLORIDE LEVEL 102 MEQ/L (98-107); CREATININE FOR GFR 0.72 MG/DL (0.55-1.02); GLOMERULAR FILTRATION RATE > 60.0 (>39); GLUCOSE, FASTING 89 MG/DL (83-110); MAGNESIUM LEVEL 2.3 MG/DL (1.8-2.4); POTASSIUM SERUM 4.2 MEQ/L (3.5-5.1); SODIUM LEVEL 140 MEQ/L (136-145)
[2016-07-12] MEDS: SYMBICORT 160/4.5MCG INHALER 6GM INH SCH ×2 (08:05→20:49)
[2016-07-12] MEDS: SPIRONOLACTONE 25 MG TAB PO SCH (08:16)
[2016-07-12] MEDS: PANTOPRAZOLE 40MG TAB (PROTONIX) PO SCH (08:16)
[2016-07-12] MEDS: ASCORBIC ACID 500 MG TAB PO SCH ×3 (08:16→20:46)
[2016-07-12] MEDS: LACTOBACILLUS ACIDOPHILUS CAP (BACID) PO SCH ×3 (08:16→20:45)
[2016-07-12] MEDS: FOLIC ACID 1 MG TAB PO SCH (08:16)
[2016-07-12] MEDS: CEFDINIR 300 MG CAP (OMNICEF) PO SCH ×2 (08:16→20:45)
[2016-07-12] MEDS: FERROUS GLUCONATE 324 MG TAB PO SCH ×3 (08:17→20:46)
[2016-07-12] MEDS: FUROSEMIDE 20 MG TAB PO SCH (08:17)
[2016-07-12] MEDS: FLUCONAZOLE 100 MG TAB PO SCH (08:17)
[2016-07-12] MEDS: MIRALAX *UNIT DOSE* 17GM PACKET PO PRN (09:04)
--- NOTE | 2016-07-12 12:29 | IPNPDOC ---
Tank [employer] Progress Note PROGRESS NOTE DATE OF SERVICE: 07/12/16 IDENTIFICATION STATEMENT: 75 year old woman with left femoral neck fracture s/p percutaneous pinning admitted for comprehensive inpatient rehabilitation. PAST MEDICAL HISTORY: Coronary artery disease status post stent in 2003 PAF Hypothyroidism Gastric cancer status post resection in 2014 Dumping syndrome Anemia of chronic disease Severe proteins calorie malnutrition Gastroesophageal reflux disease Asthma DVT left lower limb diagnosed December 2015 PAST SURGICAL HISTORY: Gastric resection s/p J tube Hysterectomy Cardiac stents Left ankle fracture Right hip fracture s/p GREER ALLERGIES: Atorvastatin, Rosuvastatin MEDICATIONS: Omnicef 300mg bid Bacid 1 tid Xarelto 20mg daily Diflucan 100 mg by mouth daily Lasix 20 mg by mouth daily Aldactone 25 mg by mouth daily Colace 100 mg by mouth twice a day Tramadol 50mg q6h prn mod pain Percocet 1 tab by PO q6h prn severe pain Synthroid 0.05 mg by mouth daily Tylenol 650 mg by mouth every 4 hours when necessary Zofran 4 mg PO every 8 hours when necessary Albuterol on her dose inhaler 2 puffs every 4 hours when necessary shortness of breath Symbicort 160/4.5 g twice a day Ferrous gluconate 325mg tid Vit C 500mg tid Folate acid 1 mg by mouth daily Protonix 40 mg by mouth daily Carafate ACHS Vitamin D 50,000 units by mouth every Monday MiraLAX 1 packet by mouth daily prn Milk of magnesia 30 mL by mouth daily prn SUBJECTIVE: Patient states still feels tired but CP mostly gone. Now complaints of feeling constipated and increased discharge from feeding tube site. Denies any chills, SOB or diaphoresis. No vomiting. Denies dysuria. VITAL SIGNS: 99.8 F; 64; 18; 135/60; 98% RA PHYSICAL EXAMINATION: GENERAL: Well nourished, well developed, sitting up in chair, no acute distress. HEENT: Normocephalic, atraumatic. PERRL, EOMI CARDIOVASCULAR: S1, S2, regular rate. No significant calf edema or tenderness bilaterally. LUNGS: Decreased BS, but clear to ascultation ABDOMEN: Soft, nontender, nondistended. +normoactive bowel sounds throughout. Prior feeding tube site covered with dressing, no visible drainage MUSCULOSKELETAL: MMT: 5/5 strength bilateral upper limbs in all major muscle groups. 5/5 strength right lower limb in all major muscle groups. 3+/5 hip flexors 4+/5 left knee extension flexion, 5/5 left dorsi flexion/plantar flexion /EHL. NEUROLOGICAL: Alert and oriented x 3. Answers all questions appropriately. Able to follow commands without difficulty. SKIN: +well healed scar left knee; Left lateral hip/thigh surgical site covered with optifoam, no visible drainage. LABORATORY DATA: 07/12/16: reviewed, see below IMAGING: CXR 07/11/16: +small pleural effusions, no pna CT chest 07/11/16: no PE X-ray hip 07/04/2016: Impacted subcapital fracture of the left femoral neck. Head CT 8 07/04/2016: Diffuse microvascular disease. No acute process Cervical spine CT 07/04/2016: No acute fracture. X-ray of the knee 07/04/2016 no acute fracture. Vascular ultrasound 07/04/2016: Left popliteal vessel incompletely visualized but small clot present. No clots in the right lower limb. FUNCTIONAL STATUS, Premorbid: Independent with ADLs and ambulation. Drove regularly. ASSESSMENT AND PLAN: 1. Left femoral neck fracture status post percutaneous pinning now with gait abnormality and dysfunctional ADLs: TTWB left lower limb. Continue daily physical and occupational therapy. Rehabilitation nursing for bladder, bowel, medication management and wound care. 2. DVT prophylaxis: Patient with a history of DVT and small clot visualized on recent ultrasound. Was on therapeutic Lovenox and switch back to Xarelto . Continue SCD and GRAEME hose. 3. Pleuritic CP: Resolved, w/u negative. 4. Pain, hip: Adequately controlled. Continue tramadol mod pain, Percocet when necessary for severe pain, Intermittent ice. 5. H/o gastric CA/feeding tube: Tube removed 07/07/16; Per pt and nursing, increased today. Continue dressing. If continues with c/s surgery. 6. Diet/severe malnutrition: Prealbumin low. Continue nutritional supplements. Regular diet. 7. Bowel: Constipation recurrent. Colace and senna scheduled along with milk of magnesia and MiraLAX on an as-needed basis. 8. Anemia, acute blood loss plus chronic disease: Continue iron supplementation s/p increase to tid. 7. Electrolytes: Hypokalemia, resolved. Hypomagnesium, resolved. / Vital Signs Vital Sign - Last 24 Hours 07/11/16 07/11/16 07/11/16 07/11/16 14:00 20:00 23:04 23:34 Temp 97.0 99.9 Pulse 68 84 Resp 18 16 18 18 B/P 120/73 125/55 Pulse Ox 98 98 O2 Delivery Room Air Room Air 07/12/16 06:00 Temp 99.8 Pulse 64 Resp 18 B/P 135/60 Pulse Ox 98 O2 Delivery Room Air Laboratory Data CBC/BMP Laboratory Tests 07/12/16 07:03 Calcium Level 8.0 L, Red Blood Count 2.84 L, Mean Corpuscular Volume 96.5 H, Mean Corpuscular Hemoglobin 31.7, Mean Corpuscular Hemoglobin Concent 32.8, Red Cell Distribution Width 13.4, Neutrophils (%) (Auto) 55.2, Lymphocytes (%) (Auto ) 23.3 L, Monocytes (%) (Auto) 6.4 H, Eosinophils (%) (Auto) 10.9 H, Basophils ( %) (Auto) 0.8, Neutrophils # (Auto) 2.1, Lymphocytes # (Auto) 1.0 L, Monocytes # (Auto) 0.2, Eosinophils # (Auto) 0.4, Basophils # (Auto) 0.0 Labs 24H Laboratory Tests 2 07/12/16 07:03: Anion Gap 5L, White Blood Count 3.7L, Red Blood Count 2.84L, Hemoglobin 9.0L, Hematocrit 27.5L, Mean Corpuscular Volume 96.5H, Mean Corpuscular Hemoglobin 31.7, Mean Corpuscular Hemoglobin Concent 32.8, Red Cell Distribution Width 13.4 , Platelet Count 244, Neutrophils (%) (Auto) 55.2, Lymphocytes (%) (Auto) 23.3L , Monocytes (%) (Auto) 6.4H, Eosinophils (%) (Auto) 10.9H, Basophils (%) (Auto) 0.8, Neutrophils # (Auto) 2.1, Lymphocytes # (Auto) 1.0L, Monocytes # (Auto) 0.2 , Eosinophils # (Auto) 0.4, Basophils # (Auto) 0.0, Blood Urea Nitrogen 16, Creatinine 0.72, Sodium Level 140, Potassium Level 4.2, Chloride Level 102, Carbon Dioxide Level 33H, Calcium Level 8.0L, Glomerular Filtration Rate > 60.0 , Large Unclassified Cells # 0.1, Large Unclassified Cells % 3.4, Magnesium Level 2.3 Allergies Allergies: Coded Allergies: Atorvastatin (Verified Adverse Reaction, Mild, MUSCLE PAIN AN ADR & HIVES NOTED ALTHOUGH TAKES VYTORIN, 11/06/14) Rosuvastatin (Verified Adverse Reaction, Mild, MUSCLE PAIN, 08/01/12) Current Medications Current Medications Current Medications Acetaminophen (Tylenol Tab) 650 mg Q4HP PRN PO MILD PAIN (PS 1-4) Last administered on 07/10/16 20:39; Start 07/06/16 at 15:30; Stop 08/05/16 at 15:29 Albuterol Sulfate (Proventil, Ventolin Hfa) 2 puff Q4HP PRN INH SHORTNESS OF BREATH; Start 07/06/16 at 16:00; Stop 08/05/16 at 15:59 Ascorbic Acid (Vitamin C) 500 mg BID PO Last administered on 07/07/16 09:00; Start 07/06/16 at 21:00; Stop 07/07/16 at 10:06; Status DC Ascorbic Acid (Vitamin C) 500 mg TID PO Last administered on 07/12/16 08:16; Start 07/07/16 at 16:00; Stop 08/06/16 at 15:59 Budesonide/ Formoterol Fumarate (Symbicort 160/ 4.5mcg) 2 puff BID INH Last administered on 07/12/16 08:05; Start 07/06/16 at 21:00; Stop 08/05/16 at 20:59 Calcium Carbonate (Oscal) 500 mg TID PO Last administered on 07/07/16 15:26; Start 07/07/16 at 09:00; Stop 07/07/16 at 16:04; Status DC Cefdinir (Omnicef) 300 mg BID PO Last administered on 07/12/16 08:16; Start at 21:00; Stop 07/14/16 at 20:59 Enoxaparin Sodium (Lovenox) 50 mg Q12H SC Last administered on 07/08/16 00:09 ; Start 07/07/16 at 00:00; Stop 07/08/16 at 11:20; Status DC Ferrous Gluconate (Fergon) 324 mg BID PO Last administered on 07/07/16 08:59; Start 07/06/16 at 21:00; Stop 07/07/16 at 10:06; Status DC Ferrous Gluconate (Fergon) 324 mg TID PO Last administered on 07/12/16 08:17; Start 07/07/16 at 16:00; Stop 08/06/16 at 15:59 Fluconazole (Diflucan) 100 mg DAILY PO Last administered on 07/12/16 08:17; Start 07/07/16 at 09:00; Stop 07/14/16 at 08:59 Folic Acid (Folic Acid) 1 mg DAILY PO Last administered on 07/12/16 08:16; Start 07/07/16 at 09:00; Stop 08/06/16 at 08:59 Furosemide (Lasix) 20 mg DAILY PO Last administered on 07/12/16 08:17; Start 07/07/16 at 09:00; Stop 08/06/16 at 08:59 Lactobacillus Acidophilus (Bacid) 1 ea TID PO Last administered on 07/12/16 08 :16; Start 07/07/16 at 16:00; Stop 08/06/16 at 15:59 Levothyroxine Sodium (Synthroid) 0.05 mg DAILY@06 PO Last administered on 06:08; Start 07/07/16 at 06:00; Stop 08/06/16 at 05:59 Magnesium Hydroxide (Milk Of Magnesia) 30 ml DAILYPRN PRN PO CONSTIPATION; Start 07/06/16 at 15:30; Stop 08/05/16 at 15:29 Ondansetron HCl (Zofran) 4 mg Q8HP PRN PO NAUSEA OR VOMITING Last administered on 07/11/16 07:12; Start 07/07/16 at 16:15; Stop 08/06/16 at 16:14 Oxycodone/ Acetaminophen (Percocet 5mg/ 325mg Tablet) 1 tab Q4HP PRN PO SEVERE PAIN (PS 8-10) Last administered on 07/11/16 23:04; Start 07/06/16 at 15:30; Stop 07/19/16 at 15:29 Pantoprazole Sodium (Protonix) 40 mg DAILY PO Last administered on 07/12/16 08 :16; Start 07/07/16 at 09:00; Stop 08/06/16 at 08:59 Polyethylene Glycol (Miralax) 1 pkt DAILY PRN PO CONSTIPATION Last administered on 07/12/16 09:04; Start 07/06/16 at 15:30; Stop 08/05/16 at 15:29 Rivaroxaban (Xarelto) 20 mg DAILY@18 PO Last administered on 07/11/16 17:21; Start 07/08/16 at 18:00; Stop 07/15/16 at 17:59 Sodium Chloride ([place] Nasal [place]) 2 spray Q2HP PRN NA NASAL DRYNESS; Start at 12:00; Stop 08/06/16 at 11:59 Spironolactone (Aldactone) 25 mg DAILY PO Last administered on 07/12/16 08:16 ; Start 07/07/16 at 09:00; Stop 08/06/16 at 08:59 Sucralfate (Carafate Suspension) 1 gm ACHS PO Last administered on 07/12/16 11 :39; Start 07/11/16 at 12:00; Stop 08/10/16 at 11:59 Tramadol HCl (Ultram) 50 mg Q4HP PRN PO MODERATE PAIN (PS 5-7) Last administered on 07/10/16 17:05; Start 07/06/16 at 16:30; Stop 07/19/16 at 16:29 Vitamin D (Drisdol) 50,000 units Fr@09 PO Last administered on 07/08/16 09:05 ; Start 07/08/16 at 09:00; Stop 08/07/16 at 08:59 BARTOLO CONROY MD Jul 12, 2016 12:29
[2016-07-12 14:00] VITALS: BP 130/61
[2016-07-12] MEDS: RIVAROXABAN 20 MG TAB (XARELTO) PO SCH (17:30)
[2016-07-12 20:00] VITALS: BP 104/51
[2016-07-12] MEDS: PERCOCET 5MG/325MG TAB PO PRN (20:48)
[2016-07-13] MEDS: LEVOTHYROXINE 0.05 MG TAB (50 MCG) PO SCH (05:50)
[2016-07-13 06:00] VITALS: BP 117/60
[2016-07-13] MEDS: CEFDINIR 300 MG CAP (OMNICEF) PO SCH (08:10)
[2016-07-13] MEDS: FOLIC ACID 1 MG TAB PO SCH (08:10)
[2016-07-13] MEDS: FUROSEMIDE 20 MG TAB PO SCH (08:10)
[2016-07-13] MEDS: SUCRALFATE SUSP 1GM/10ML UD PO SCH ×2 (08:10→11:19)
[2016-07-13] MEDS: FERROUS GLUCONATE 324 MG TAB PO SCH ×2 (08:10→15:41)
[2016-07-13] MEDS: PANTOPRAZOLE 40MG TAB (PROTONIX) PO SCH (08:10)
[2016-07-13] MEDS: ASCORBIC ACID 500 MG TAB PO SCH ×2 (08:10→15:41)
[2016-07-13] MEDS: SPIRONOLACTONE 25 MG TAB PO SCH (08:10)
[2016-07-13] MEDS: FLUCONAZOLE 100 MG TAB PO SCH (08:10)
[2016-07-13] MEDS: LACTOBACILLUS ACIDOPHILUS CAP (BACID) PO SCH ×2 (08:10→15:41)
[2016-07-13 08:26] LABS: MEAN CORPUSCULAR HGB CONC 32.2 g/dl (32.0-36.5); MEAN CORPUSCULAR VOLUME 96.3 fl (80.0-96.0); RED CELL DISTRIBUTION WIDTH 13.2 % (11.5-14.5); WHITE BLOOD COUNT 4.2 K/mm3 (4.0-10.0)
[2016-07-13] MEDS: SYMBICORT 160/4.5MCG INHALER 6GM INH SCH (09:21)
[2016-07-13] MEDS: traMADol 50 MG TAB PO PRN (11:19)
--- NOTE | 2016-07-13 11:44 | IPNPDOC ---
Rn Travel Progress Note PROGRESS NOTE DATE OF SERVICE: 07/13/16 IDENTIFICATION STATEMENT: 75 year old woman with left femoral neck fracture s/p percutaneous pinning admitted for comprehensive inpatient rehabilitation. PAST MEDICAL HISTORY: Coronary artery disease status post stent in 2003 PAF Hypothyroidism Gastric cancer status post resection in 2014 Dumping syndrome Anemia of chronic disease Severe proteins calorie malnutrition Gastroesophageal reflux disease Asthma DVT left lower limb diagnosed December 2015 PAST SURGICAL HISTORY: Gastric resection s/p J tube Hysterectomy Cardiac stents Left ankle fracture Right hip fracture s/p GREER ALLERGIES: Atorvastatin, Rosuvastatin MEDICATIONS: Omnicef 300mg bid Bacid 1 tid Xarelto 20mg daily Diflucan 100 mg by mouth daily Lasix 20 mg by mouth daily Aldactone 25 mg by mouth daily Colace 100 mg by mouth twice a day Tramadol 50mg q6h prn mod pain Percocet 1 tab by PO q6h prn severe pain Synthroid 0.05 mg by mouth daily Tylenol 650 mg by mouth every 4 hours when necessary Zofran 4 mg PO every 8 hours when necessary Albuterol on her dose inhaler 2 puffs every 4 hours when necessary shortness of breath Symbicort 160/4.5 g twice a day Ferrous gluconate 325mg tid Vit C 500mg tid Folate acid 1 mg by mouth daily Protonix 40 mg by mouth daily Carafate ACHS Vitamin D 50,000 units by mouth every Monday MiraLAX 1 packet by mouth daily prn Milk of magnesia 30 mL by mouth daily prn SUBJECTIVE: Patient w/o complaints today. States she feels much better. No further CP. Moved bowels which felt good, but stool was very hard. Less discharge from J-tube site. Denies any chills, SOB or diaphoresis. No vomiting. Denies dysuria. VITAL SIGNS: 98.3 F; 71; 18; 117/60; 95% RA PHYSICAL EXAMINATION: GENERAL: Well nourished, well developed, sitting up in chair, no acute distress. HEENT: Normocephalic, atraumatic. PERRL, EOMI CARDIOVASCULAR: S1, S2, regular rate. No significant calf edema or tenderness bilaterally. LUNGS: Decreased BS, but clear to auscultation ABDOMEN: Soft, nontender, nondistended. +normoactive bowel sounds throughout. Prior feeding tube site covered with dressing, no visible drainage MUSCULOSKELETAL: MMT: 5/5 strength bilateral upper limbs in all major muscle groups. 5/5 strength right lower limb in all major muscle groups. 3+/5 hip flexors 4+/5 left knee extension flexion, 5/5 left dorsi flexion/plantar flexion /EHL. NEUROLOGICAL: Alert and oriented x 3. Answers all questions appropriately. Able to follow commands without difficulty. SKIN: +well healed scar left knee; Left lateral hip/thigh surgical site covered with optifoam, no visible drainage. LABORATORY DATA: 07/13/16: reviewed, see below IMAGING: CXR 07/11/16: +small pleural effusions, no pna CT chest 07/11/16: no PE X-ray hip 07/04/2016: Impacted subcapital fracture of the left femoral neck. Head CT 8 07/04/2016: Diffuse microvascular disease. No acute process Cervical spine CT 07/04/2016: No acute fracture. X-ray of the knee 07/04/2016 no acute fracture. Vascular ultrasound 07/04/2016: Left popliteal vessel incompletely visualized but small clot present. No clots in the right lower limb. FUNCTIONAL STATUS, Premorbid: Independent with ADLs and ambulation. Drove regularly. ASSESSMENT AND PLAN: 1. Left femoral neck fracture status post percutaneous pinning now with gait abnormality and dysfunctional ADLs: TTWB left lower limb. Continue daily physical and occupational therapy. Rehabilitation nursing for bladder, bowel, medication management and wound care. 2. DVT prophylaxis: Patient with a history of DVT and small clot visualized on recent ultrasound. Was on therapeutic Lovenox and switch back to Xarelto . Continue SCD and GRAEME hose. 3. CP: Resolved, w/u negative. 4. Pain, hip: Adequately controlled. Continue tramadol mod pain, Percocet when necessary for severe pain, Intermittent ice. 5. H/o gastric CA/feeding tube: Tube removed 07/07/16; Decrease output today concurrent with resolution of constipation. Added stool softener. Continue dressing. F/u with surgeon post discharge. 6. Diet/severe malnutrition: Prealbumin low. Continue nutritional supplements. Regular diet. 7. Bowel: Constipation resolved. Colace scheduled along with milk of magnesia and MiraLAX on an as-needed basis. 8. Anemia, acute blood loss plus chronic disease: Continue iron supplementation s/p increase to tid. 7. Electrolytes: Hypokalemia, resolved. Hypomagnesium, resolved. / Vital Signs Vital Sign - Last 24 Hours 07/12/16 07/12/16 07/12/16 07/12/16 14:00 20:00 20:00 20:48 Temp 98.9 99.1 Pulse 84 80 Resp 18 18 18 B/P 130/61 104/51 Pulse Ox 96 94 O2 Delivery Room Air Room Air Room Air 07/12/16 07/13/16 07/13/16 07/13/16 21:18 06:00 08:00 11:19 Temp 98.3 Pulse 71 Resp 18 18 20 B/P 117/60 Pulse Ox 95 O2 Delivery Room Air Room Air Room Air Laboratory Data CBC/BMP Laboratory Tests 07/13/16 07:46 Red Blood Count 2.90 L, Mean Corpuscular Volume 96.3 H, Mean Corpuscular Hemoglobin 31.0, Mean Corpuscular Hemoglobin Concent 32.2, Red Cell Distribution Width 13.2 Allergies Allergies: Coded Allergies: Atorvastatin (Verified Adverse Reaction, Mild, MUSCLE PAIN AN ADR & HIVES NOTED ALTHOUGH TAKES VYTORIN, 11/06/14) Rosuvastatin (Verified Adverse Reaction, Mild, MUSCLE PAIN, 08/01/12) Current Medications Current Medications Current Medications Acetaminophen (Tylenol Tab) 650 mg Q4HP PRN PO MILD PAIN (PS 1-4) Last administered on 07/10/16 20:39; Start 07/06/16 at 15:30; Stop 08/05/16 at 15:29 Albuterol Sulfate (Proventil, Ventolin Hfa) 2 puff Q4HP PRN INH SHORTNESS OF BREATH; Start 07/06/16 at 16:00; Stop 08/05/16 at 15:59 Ascorbic Acid (Vitamin C) 500 mg BID PO Last administered on 07/07/16 09:00; Start 07/06/16 at 21:00; Stop 07/07/16 at 10:06; Status DC Ascorbic Acid (Vitamin C) 500 mg TID PO Last administered on 07/13/16 08:10; Start 07/07/16 at 16:00; Stop 08/06/16 at 15:59 Budesonide/ Formoterol Fumarate (Symbicort 160/ 4.5mcg) 2 puff BID INH Last administered on 07/13/16 09:21; Start 07/06/16 at 21:00; Stop 08/05/16 at 20:59 Calcium Carbonate (Oscal) 500 mg TID PO Last administered on 07/07/16 15:26; Start 07/07/16 at 09:00; Stop 07/07/16 at 16:04; Status DC Cefdinir (Omnicef) 300 mg BID PO Last administered on 07/13/16 08:10; Start at 21:00; Stop 07/20/16 at 20:59 Docusate Sodium (Colace) 100 mg TID PO ; Start 07/13/16 at 09:00; Stop 08/12/16 at 08:59 Enoxaparin Sodium (Lovenox) 50 mg Q12H SC Last administered on 07/08/16 00:09 ; Start 07/07/16 at 00:00; Stop 07/08/16 at 11:20; Status DC Ferrous Gluconate (Fergon) 324 mg BID PO Last administered on 07/07/16 08:59; Start 07/06/16 at 21:00; Stop 07/07/16 at 10:06; Status DC Ferrous Gluconate (Fergon) 324 mg TID PO Last administered on 07/13/16 08:10; Start 07/07/16 at 16:00; Stop 08/06/16 at 15:59 Fluconazole (Diflucan) 100 mg DAILY PO Last administered on 07/13/16 08:10; Start 07/07/16 at 09:00; Stop 07/20/16 at 08:59 Folic Acid (Folic Acid) 1 mg DAILY PO Last administered on 07/13/16 08:10; Start 07/07/16 at 09:00; Stop 08/06/16 at 08:59 Furosemide (Lasix) 20 mg DAILY PO Last administered on 07/13/16 08:10; Start 07/07/16 at 09:00; Stop 08/06/16 at 08:59 Lactobacillus Acidophilus (Bacid) 1 ea TID PO Last administered on 07/13/16 08 :10; Start 07/07/16 at 16:00; Stop 08/06/16 at 15:59 Levothyroxine Sodium (Synthroid) 0.05 mg DAILY@06 PO Last administered on 05:50; Start 07/07/16 at 06:00; Stop 08/06/16 at 05:59 Magnesium Hydroxide (Milk Of Magnesia) 30 ml DAILYPRN PRN PO CONSTIPATION; Start 07/06/16 at 15:30; Stop 08/05/16 at 15:29 Ondansetron HCl (Zofran) 4 mg Q8HP PRN PO NAUSEA OR VOMITING Last administered on 07/11/16 07:12; Start 07/07/16 at 16:15; Stop 08/06/16 at 16:14 Oxycodone/ Acetaminophen (Percocet 5mg/ 325mg Tablet) 1 tab Q4HP PRN PO SEVERE PAIN (PS 8-10) Last administered on 07/12/16 20:48; Start 07/06/16 at 15:30; Stop 07/19/16 at 15:29 Pantoprazole Sodium (Protonix) 40 mg DAILY PO Last administered on 07/13/16 08 :10; Start 07/07/16 at 09:00; Stop 08/06/16 at 08:59 Polyethylene Glycol (Miralax) 1 pkt DAILY PRN PO CONSTIPATION Last administered on 07/12/16 09:04; Start 07/06/16 at 15:30; Stop 08/05/16 at 15:29 Rivaroxaban (Xarelto) 20 mg DAILY@18 PO Last administered on 07/12/16 17:30; Start 07/08/16 at 18:00; Stop 07/15/16 at 17:59 Sodium Chloride ([place] Nasal [place]) 2 spray Q2HP PRN NA NASAL DRYNESS; Start at 12:00; Stop 08/06/16 at 11:59 Spironolactone (Aldactone) 25 mg DAILY PO Last administered on 07/13/16 08:10 ; Start 07/07/16 at 09:00; Stop 08/06/16 at 08:59 Sucralfate (Carafate Suspension) 1 gm ACHS PO Last administered on 07/13/16 11 :19; Start 07/11/16 at 12:00; Stop 08/10/16 at 11:59 Tramadol HCl (Ultram) 50 mg Q4HP PRN PO MODERATE PAIN (PS 5-7) Last administered on 07/13/16 11:19; Start 07/06/16 at 16:30; Stop 07/19/16 at 16:29 Vitamin D (Drisdol) 50,000 units Fr@09 PO Last administered on 07/08/16 09:05 ; Start 07/08/16 at 09:00; Stop 08/07/16 at 08:59 BARTOLO CONROY MD Jul 13, 2016 11:44
[2016-07-13] MEDS: DOCUSATE SODIUM 100 MG CAP PO SCH ×2 (12:42→15:41)
[2016-07-13 14:00] VITALS: BP 100/66
[2016-07-13 15:24] LABS: ANION GAP 7 MEQ/L (8-16); BLOOD UREA NITROGEN 16 MG/DL (7-18); CALCIUM LEVEL 7.9 MG/DL (8.8-10.2); CARBON DIOXIDE LEVEL 30 MEQ/L (21-32); CHLORIDE LEVEL 103 MEQ/L (98-107); CREATININE FOR GFR 0.83 MG/DL (0.55-1.02); GLOMERULAR FILTRATION RATE > 60.0 (>39); GLUCOSE, FASTING 124 MG/DL (83-110); MAGNESIUM LEVEL 2.3 MG/DL (1.8-2.4); POTASSIUM SERUM 4.5 MEQ/L (3.5-5.1); SODIUM LEVEL 140 MEQ/L (136-145)
--- NOTE | 2016-07-13 15:56 | PMRNOTEPD ---
PMR Note EVENT NOTE Called by RN today ~2:30pm, re: tachycardia. On evaluation, pt asymptomatic, denied any CP, SOB, diaphoresis, N/V. CV: heart rate irregular, tachy Ordered stat ECG which showed rapid a-fib @154bpm Spoke with Dr. Gardner (covering for Dr. Acosta) and Dr. Fu. Arrangements made to transfer to telemetry for higher level of care. / BARTOLO CONROY MD Jul 13, 2016 15:56
[2016-07-13] MEDS ORDERED: FLUC100T PO (17:19)
--- NOTE | 2016-07-13 22:43 | ECGEPIP ---
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
--- NOTE | 2016-07-14 17:08 | DS.PDOC ---
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 Left femoral neck fracture status post percutaneous pinning with gait abnormality and dysfunctional ADLs 2. Atrial fibrillation with rapid ventricular response. 3. H/o gastric CA/feeding tube s/p J-tube removal 4. Severe malnutrition 5. Constipation 6. Anemia, acute blood loss plus chronic disease 7. Iron deficiency 8. Hypokalemia, resolved. IDENTIFICATION STATEMENT: 75 year old woman with left femoral neck fracture s/p percutaneous pinning admitted for comprehensive inpatient rehabilitation. PAST MEDICAL HISTORY: Coronary artery disease status post stent in 2003 PAF Hypothyroidism Gastric cancer status post resection in 2014 Dumping syndrome Anemia of chronic disease Severe proteins calorie malnutrition Gastroesophageal reflux disease Asthma DVT left lower limb diagnosed December 2015 PAST SURGICAL HISTORY: Gastric resection s/p J tube Hysterectomy Cardiac stents Left ankle fracture Right hip fracture s/p [facility]: The patient underwent daily physical and occupational therapy. She was maintained on TTWB left LL. She made progressive gains. Surgical site was monitored periodically and noted to be healing well. On the day prior to discharge, patient developed atrial fibrillation with rapid ventricular for response. Cardiology was contacted as was the hospital service, and the patient was transferred to telemetry for higher level of care. Other issues addressed while on the rehabilitation unit are outlined as follows: 1. DVT prophylaxis: Patient with a history of DVT and small clot visualized on recent ultrasound. Was on therapeutic Lovenox and switch back to Xarelto . Continued on SCD and GRAEME hose. 2. CP 07/10/16: ECG, cardiac enzymes, CT angio negative. 3. Pain, hip: Adequately controlled on Tylenol, tramadol, Percocet. 4. H/o gastric CA/feeding tube: Tube removed 07/07/16. F/u with surgeon post discharge. 5. Severe malnutrition: Continued on nutritional supplements. 6. Constipation: Continued on Colace scheduled along with milk of magnesia and MiraLAX prn. Was given one time dose dulcolax with good response. 7. UTI: Treated with omnicef based on susceptibility panel 8. Anemia, acute blood loss plus chronic disease: Continued on iron supplementation which was increase to tid. [Note: PE done on day of transfer] VITAL SIGNS: 98.9 F; 152; 18; 100/66; 100% RA PHYSICAL EXAMINATION: GENERAL: Well nourished, well developed, sitting up in chair, no acute distress. HEENT: Normocephalic, atraumatic. PERRL, EOMI CARDIOVASCULAR: S1, S2, irregular rate, tachy LUNGS: Decreased BS, but clear to auscultation ABDOMEN: Soft, nontender, nondistended. Prior feeding tube site covered with dressing, no visible drainage MUSCULOSKELETAL: MMT: 5/5 strength bilateral upper limbs in all major muscle groups. 5/5 strength right lower limb in all major muscle groups. 3+/5 hip flexors 4+/5 left knee extension flexion, 5/5 left dorsi flexion/plantar flexion /EHL. NEUROLOGICAL: Alert and oriented x 3. Answers all questions appropriately. Able to follow commands without difficulty. SKIN: Left lateral hip/thigh surgical site covered with optifoam, no visible drainage. LABORATORY DATA: 07/13/16: reviewed, see below IMAGING: CXR 07/11/16: +small pleural effusions, no pna CT chest 07/11/16: no PE X-ray hip 07/04/2016: Impacted subcapital fracture of the left femoral neck. Head CT 8 07/04/2016: Diffuse microvascular disease. No acute process Cervical spine CT 07/04/2016: No acute fracture. X-ray of the knee 07/04/2016 no acute fracture. Vascular ultrasound 07/04/2016: Left popliteal vessel incompletely visualized but small clot present. No clots in the right lower limb. ALLERGIES: Atorvastatin, Rosuvastatin MEDICATIONS: Xarelto 20mg daily Diflucan 100 mg by mouth daily Lasix 20 mg by mouth daily Aldactone 25 mg by mouth daily Colace 100 mg by mouth twice a day Tramadol 50mg q6h prn mod pain Percocet 1 tab by PO q6h prn severe pain Synthroid 0.05 mg by mouth daily Tylenol 650 mg by mouth every 4 hours when necessary Bacid 1 tid Zofran 4 mg PO every 8 hours when necessary Albuterol on her dose inhaler 2 puffs every 4 hours when necessary shortness of breath Symbicort 160/4.5 g twice a day Ferrous gluconate 325mg tid Vit C 500mg tid Folate acid 1 mg by mouth daily Protonix 40 mg by mouth daily Carafate ACHS Vitamin D 50,000 units by mouth every Monday MiraLAX 1 packet by mouth daily prn Milk of magnesia 30 mL by mouth daily prn DISCHARGE DISPOSITION: 1. The patient discharge to PCU for higher level of care 2. Will need front wheel walker upon discharge from hospital 3. Post discharge follow-up medical appointments: PCP, Ortho (Maximiliano), Surgery ( [place]) and Cardiology (Karla) / Vital Signs/I&O I&O- Last 24 Hours up to 6 AM 07/14/16 06:00 Intake Total 600 ml Balance 600 ml Laboratory Data CBC/BMP Laboratory Tests 07/13/16 07:46 Red Blood Count 2.90 L, Mean Corpuscular Volume 96.3 H, Mean Corpuscular Hemoglobin 31.0, Mean Corpuscular Hemoglobin Concent 32.2, Red Cell Distribution Width 13.2 07/13/16 14:55 Calcium Level 7.9 L Labs 48H Laboratory Tests 07/13/16 07:46: White Blood Count 4.2, Red Blood Count 2.90L, Hemoglobin 9.0L, Hematocrit 27.9L , Mean Corpuscular Volume 96.3H, Mean Corpuscular Hemoglobin 31.0, Mean Corpuscular Hemoglobin Concent 32.2, Red Cell Distribution Width 13.2, Platelet Count 270 07/13/16 14:55: Anion Gap 7L, Blood Urea Nitrogen 16, Creatinine 0.83, Sodium Level 140, Potassium Level 4.5, Chloride Level 103, Carbon Dioxide Level 30, Calcium Level 7.9L, Fasting Glucose 124H, Glomerular Filtration Rate > 60.0, Magnesium Level 2.3 Medications Medications Current Medications Acetaminophen (Tylenol Tab) 650 mg Q4HP PRN PO MILD PAIN (PS 1-4) Last administered on 07/10/16 20:39; Start 07/06/16 at 15:30; Stop 07/14/16 at 09:10 ; Status DC Albuterol Sulfate (Proventil, Ventolin Hfa) 2 puff Q4HP PRN INH SHORTNESS OF BREATH; Start 07/06/16 at 16:00; Stop 07/14/16 at 09:10; Status DC Ascorbic Acid (Vitamin C) 500 mg BID PO Last administered on 07/07/16 09:00; Start 07/06/16 at 21:00; Stop 07/07/16 at 10:06; Status DC Ascorbic Acid (Vitamin C) 500 mg TID PO Last administered on 07/13/16 15:41; Start 07/07/16 at 16:00; Stop 07/14/16 at 09:10; Status DC Budesonide/ Formoterol Fumarate (Symbicort 160/ 4.5mcg) 2 puff BID INH Last administered on 07/13/16 09:21; Start 07/06/16 at 21:00; Stop 07/14/16 at 09:10 ; Status DC Calcium Carbonate (Oscal) 500 mg TID PO Last administered on 07/07/16 15:26; Start 07/07/16 at 09:00; Stop 07/07/16 at 16:04; Status DC Cefdinir (Omnicef) 300 mg BID PO Last administered on 07/13/16 08:10; Start at 21:00; Stop 07/14/16 at 09:10; Status DC Docusate Sodium (Colace) 100 mg TID PO Last administered on 07/13/16 15:41; Start 07/13/16 at 09:00; Stop 07/14/16 at 09:10; Status DC Enoxaparin Sodium (Lovenox) 50 mg Q12H SC Last administered on 07/08/16 00:09 ; Start 07/07/16 at 00:00; Stop 07/08/16 at 11:20; Status DC Ferrous Gluconate (Fergon) 324 mg BID PO Last administered on 07/07/16 08:59; Start 07/06/16 at 21:00; Stop 07/07/16 at 10:06; Status DC Ferrous Gluconate (Fergon) 324 mg TID PO Last administered on 07/13/16 15:41; Start 07/07/16 at 16:00; Stop 07/14/16 at 09:10; Status DC Fluconazole (Diflucan) 100 mg DAILY PO Last administered on 07/13/16 08:10; Start 07/07/16 at 09:00; Stop 07/14/16 at 09:10; Status DC Folic Acid (Folic Acid) 1 mg DAILY PO Last administered on 07/13/16 08:10; Start 07/07/16 at 09:00; Stop 07/14/16 at 09:10; Status DC Furosemide (Lasix) 20 mg DAILY PO Last administered on 07/13/16 08:10; Start 07/07/16 at 09:00; Stop 07/14/16 at 09:10; Status DC Lactobacillus Acidophilus (Bacid) 1 ea TID PO Last administered on 07/13/16 15 :41; Start 07/07/16 at 16:00; Stop 07/14/16 at 09:10; Status DC Levothyroxine Sodium (Synthroid) 0.05 mg DAILY@06 PO Last administered on 05:50; Start 07/07/16 at 06:00; Stop 07/14/16 at 09:10; Status DC Magnesium Hydroxide (Milk Of Magnesia) 30 ml DAILYPRN PRN PO CONSTIPATION; Start 07/06/16 at 15:30; Stop 07/14/16 at 09:10; Status DC Ondansetron HCl (Zofran) 4 mg Q8HP PRN PO NAUSEA OR VOMITING Last administered on 07/11/16 07:12; Start 07/07/16 at 16:15; Stop 07/14/16 at 09:10; Status DC Oxycodone/ Acetaminophen (Percocet 5mg/ 325mg Tablet) 1 tab Q4HP PRN PO SEVERE PAIN (PS 8-10) Last administered on 07/12/16 20:48; Start 07/06/16 at 15:30; Stop 07/14/16 at 09:10; Status DC Pantoprazole Sodium (Protonix) 40 mg DAILY PO Last administered on 07/13/16 08 :10; Start 07/07/16 at 09:00; Stop 07/14/16 at 09:10; Status DC Polyethylene Glycol (Miralax) 1 pkt DAILY PRN PO CONSTIPATION Last administered on 07/12/16 09:04; Start 07/06/16 at 15:30; Stop 07/14/16 at 09:10 ; Status DC Rivaroxaban (Xarelto) 20 mg DAILY@18 PO Last administered on 07/12/16 17:30; Start 07/08/16 at 18:00; Stop 07/14/16 at 09:10; Status DC Sodium Chloride ([place] Nasal [place]) 2 spray Q2HP PRN NA NASAL DRYNESS; Start at 12:00; Stop 07/14/16 at 09:10; Status DC Spironolactone (Aldactone) 25 mg DAILY PO Last administered on 07/13/16 08:10 ; Start 07/07/16 at 09:00; Stop 07/14/16 at 09:10; Status DC Sucralfate (Carafate Suspension) 1 gm ACHS PO Last administered on 07/13/16 11 :19; Start 07/11/16 at 12:00; Stop 07/14/16 at 09:10; Status DC Tramadol HCl (Ultram) 50 mg Q4HP PRN PO MODERATE PAIN (PS 5-7) Last administered on 07/13/16 11:19; Start 07/06/16 at 16:30; Stop 07/14/16 at 09:10 ; Status DC Vitamin D (Drisdol) 50,000 units Fr@09 PO Last administered on 07/08/16 09:05 ; Start 07/08/16 at 09:00; Stop 07/14/16 at 09:10; Status DC Scheduled Budesonide/Formoterol (Symbicort 160-4.5 Mcg/Act) 60 Puff/Inhaler Aers 2 PUFF INH BID (Reported) Ergocalciferol (Vitamin D) 50,000 Unit Cap 50,000 UNIT PO QWEEK (Reported) MONDAY Ferrous Sulfate (Ferrous Sulfate) 325 Mg Tab 325 MG PO DAILY (Reported) Fluconazole (Fluconazole) 100 Mg Tab 100 MG PO DAILY (Reported) Folic Acid (Folic Acid) 1 Mg Tab 1 MG PO DAILY (Reported) Furosemide (Furosemide) 20 Mg Tab 20 MG PO DAILY (Reported) Levothyroxine Sodium (Synthroid) 50 Mcg Tab 50 MCG PO QAM (Reported) Nystatin (Nystatin) 100,000 Unit/Gm Cre 1 DOSE TOP TID (Reported) APPLY TO JTUBE Pantoprazole Sodium (Pantoprazole Sodium) 40 Mg Tab 40 MG PO DAILY (Reported) Rivaroxaban (Xarelto) 20 Mg Tab 20 MG PO DAILY (Reported) Spironolactone (Spironolactone) 25 Mg Tab 25 MG PO DAILY (Reported) Scheduled PRN Albuterol Sulfate (Ventolin Hfa) 200 Puff/8 Gm Aers 2 PUFF INH Q4H PRN PRN SHORTNESS OF BREATH (Reported) Albuterol Sulfate (Albuterol Sulfate) 2.5 Mg/3 Ml Nebu 2.5 MG INH Q4H PRN PRN SHORTNESS OF BREATH (Reported) Tramadol HCl (Tramadol HCl) 50 Mg Tab 50 MG PO BID PRN PRN PAIN (Reported) Allergies Coded Allergies: Atorvastatin (Verified Adverse Reaction, Mild, MUSCLE PAIN AN ADR & HIVES NOTED ALTHOUGH TAKES VYTORIN, 11/06/14) Rosuvastatin (Verified Adverse Reaction, Mild, MUSCLE PAIN, 08/01/12) BARTOLO CONROY MD Jul 14, 2016 17:07
== END 2016-07-13 15:55 | disposition short-term general hospital (02) | DRG 559 ==
LOC: M PM&R 19:00
PROVIDERS: ADMIT Physical Medicine & Rehabilitation; ATTEND Physical Medicine & Rehabilitation
DX: S72.042D Displaced fracture of base of neck of left femur, subsequent encounter for closed fracture with routine healing (principal); E43 Unspecified severe protein-calorie malnutrition; D62 Acute posthemorrhagic anemia; N39.0 Urinary tract infection, site not specified; I50.9 Heart failure, unspecified; I25.10 Atherosclerotic heart disease of native coronary artery without angina pectoris; E03.9 Hypothyroidism, unspecified; R26.9 Unspecified abnormalities of gait and mobility; D63.8 Anemia in other chronic diseases classified elsewhere; K21.9 Gastro-esophageal reflux disease without esophagitis; J45.909 Unspecified asthma, uncomplicated; R00.0 Tachycardia, unspecified; E83.42 Hypomagnesemia; K59.00 Constipation, unspecified; E87.6 Hypokalemia; I48.0 Paroxysmal atrial fibrillation; Z86.718 Personal history of other venous thrombosis and embolism; Z90.49 Acquired absence of other specified parts of digestive tract; Z85.00 Personal history of malignant neoplasm of unspecified digestive organ; Z93.1 Gastrostomy status; Z79.891 Long term (current) use of opiate analgesic; Z79.899 Other long term (current) drug therapy; Z87.891 Personal history of nicotine dependence; W19.XXXD Unspecified fall, subsequent encounter; Y92.018 Other place in single-family (private) house as the place of occurrence of the external cause; Z79.51 Long term (current) use of inhaled steroids; Z79.01 Long term (current) use of anticoagulants

== ENCOUNTER 2016-07-13 16:00 | Observation (INO) | payer MEDICARE, OTHER ==
[~2016-07-13 16:00] MED LIST changes: +FLUC10TA PO
[2016-07-13 16:43] VITALS: BP 148/69
[2016-07-13 17:01] VITALS: BP_SYST 150; BP_SYST 162; BP_SYST 163; BP_DIAS 70; BP_DIAS 76
[2016-07-13] MEDS ORDERED: FLUC100T PO (17:19)
[2016-07-13 18:00] VITALS: BP 117/58
[2016-07-13 20:00] VITALS: BP 102/55
[2016-07-13] MEDS ORDERED: ALBUTEROL 90 MCG/ACT 8GM HFA INHALER INH PRN (20:00)
[2016-07-13] MEDS ORDERED: ALBUTEROL SULFATE 2.5 MG/0.5 ML INH NEB SOLN INH PRN (20:00)
[2016-07-13] MEDS: NYSTATIN CREAM 15 GM TOP SCH (21:00)
--- NOTE | 2016-07-13 21:55 | HPE ---
DATE OF ADMISSION: 07/13/2016 REASON FOR ADMISSION: Atrial fibrillation with rapid ventricular response. HISTORY OF PRESENT ILLNESS: The patient is a 76-year-old female with past medical history significant for multiple GI procedures, paroxysmal atrial fibrillation, coronary artery disease, hypertension, hyperlipidemia, anemia, hypothyroidism, valvular heart disease was recently admitted after hip surgery. She is admitted to rehabilitation. She was to be discharged in the morning. However, she went into atrial fibrillation with rapid ventricular response. I was called by and R provider, Dr. Culver after she spoke with Dr. Gardner who recommended the patient be transferred to telemetry. The patient was admitted to PCU under hospitalist service. On my examination, the patient was completely asymptomatic. By the time I saw patient, she had converted back into sinus rhythm with a heart rate in the 70s. She stated that during the episode she felt palpitations and some lightheadedness, but denied any chest pain or shortness of breath. She stated she has felt these palpitations on and off in the past, but they have been infrequent. She was evaluated by Dr. Acosta in November and he recommended that the patient be started on beta tk, however, it was not initiated; likely secondary to her hypotension, which the patient stated she has got a history of. REVIEW OF SYSTEMS: 12 point review of systems was obtained all which was negative. PAST MEDICAL HISTORY: As above. PAST SURGICAL HISTORY: The patient had recent hip surgery, status post ground-level fall. Multiple gastrointestinal surgeries. MEDICATIONS: Include: - albuterol sulfate as needed for shortness of breath - Symbicort 160/4.5 - vitamin D once a week - iron 325 mg by mouth daily - fluconazole 100 mg by mouth daily - folic acid 1 mg by mouth daily - furosemide 20 mg by mouth daily - Nystatin cream - levothyroxine 50 mcg by mouth in the morning - Pantoprazole 40 mg by mouth daily - Xarelto 20 mg by mouth daily - spironolactone 25 mg daily - tramadol 50 mg by mouth twice a day ALLERGIES: The patient states she is intolerant to ATORVASTATIN and ROSUVASTATIN. FAMILY HISTORY: Noncontributory. PHYSICAL EXAMINATION: Blood pressure was 117/58, pulse 98% on room air, pulse 82, respiratory rate 18, temperature 98.7. HEENT: Pupils equal, round, react to light and accommodation. Neck supple. No jugular venous distention (JVD). Lungs: Clear to auscultation bilaterally. Abdomen: Soft, nontender, nondistended. Cardiac: Regular rate and rhythm. Extremities: Trace edema bilaterally. LABORATORY: Laboratory findings reviewed. ASSESSMENT/PLAN: 1. Atrial fibrillation with rapid ventricular response (RVR). The patient has history of paroxysmal atrial fibrillation. By the time she was moved to telemetry she had converted to sinus rhythm with regular rate. The patient was to be seen by Dr. Acosta outpatient at the end of this month. Dr. Gardner was called by Dr. Culver prior to transfer. He advised to monitor the patient on telemetry. I spoke with Dr. Gardner later regarding initiating any medication. We will hold off at this time until the patient is evaluated in the morning with Dr. Acosta. The patient has a history of hypotension resulting in fall. We will order orthostatic blood pressure. We will hold off on initiating any beta blockers at this time since the patient appears to be stable with rate control. We will continue the patient's Xarelto however. 2. History of hypothyroidism. Continue the patient's levothyroxine. 3. History of hyperlipidemia. 4. History of anemia. Continue iron and folic acid. 5. History of valvular heart disease. 6. Deep venous thrombosis (DVT) prophylaxis. Patient is currently on Xarelto.
--- NOTE | 2016-07-13 22:48 | ECGEPIP ---
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
[2016-07-13] MEDS: SYMBICORT 160/4.5MCG INHALER 6GM INH SCH (22:53)
[2016-07-13] MEDS: traMADol 50 MG TAB PO PRN (22:59)
[2016-07-14] VITALS (8 sets, daily range): BP systolic 109–143; BP diastolic 52–69
[2016-07-14 05:25] LABS: BASO % 0.7 % (0.0-1.0); EOS # 0.6 K/mm3 (0.0-0.50); EOS % 14.6 % (0.0-3.0); LARGE UNSTAINED CELL # 0.1 K/mm3 (0.0-0.4); LARGE UNSTAINED CELL % 2.8 % (0.0-4.0); LYMPH # 1.1 K/mm3 (1.5-4.5); MEAN CORPUSCULAR HEMOGLOBIN 30.2 pg (27.0-33.0); MEAN CORPUSCULAR HGB CONC 31.4 g/dl (32.0-36.5); MEAN CORPUSCULAR VOLUME 96.3 fl (80.0-96.0); MONO # 0.2 K/mm3 (0.0-0.8); MONO % 5.7 % (0.0-5.0); NEUTROPHILS # 2.2 K/mm3 (1.8-7.7); NEUTROPHILS % 51.2 % (36.0-66.0); PLATELET COUNT, AUTOMATED 278 k/mm3 (150-450); RED CELL DISTRIBUTION WIDTH 13.3 % (11.5-14.5); WHITE BLOOD COUNT 4.2 K/mm3 (4.0-10.0)
[2016-07-14 05:36] LABS: ALBUMIN/GLOBULIN RATIO 0.48 (1.00-1.93); ALKALINE PHOSPHATASE 135 U/L (45-117); ALT/SGPT 12 U/L (12-78); ANION GAP 6 MEQ/L (8-16); AST/SGOT 13 U/L (15-37); BILIRUBIN,TOTAL 0.2 MG/DL (0.2-1.0); BLOOD UREA NITROGEN 16 MG/DL (7-18); CALCIUM LEVEL 7.7 MG/DL (8.8-10.2); CARBON DIOXIDE LEVEL 31 MEQ/L (21-32); CHLORIDE LEVEL 102 MEQ/L (98-107); GLOMERULAR FILTRATION RATE > 60.0 (>39); GLUCOSE, FASTING 84 MG/DL (83-110); MAGNESIUM LEVEL 2.2 MG/DL (1.8-2.4); POTASSIUM SERUM 4.6 MEQ/L (3.5-5.1); SODIUM LEVEL 139 MEQ/L (136-145); TOTAL PROTEIN 6.2 GM/DL (6.4-8.2)
[2016-07-14] MEDS: SYMBICORT 160/4.5MCG INHALER 6GM INH SCH ×2 (08:00→19:35)
[2016-07-14] MEDS: FERROUS SULFATE 325MG TAB PO SCH (08:49)
[2016-07-14] MEDS: FOLIC ACID 1 MG TAB PO SCH (08:49)
[2016-07-14] MEDS: NYSTATIN CREAM 15 GM TOP SCH ×3 (08:50→20:52)
[2016-07-14] MEDS ORDERED: traMADol 50 MG TAB PO PRN (09:45)
[2016-07-14] MEDS: PANTOPRAZOLE 40MG TAB (PROTONIX) PO SCH (10:34)
[2016-07-14] MEDS: SPIRONOLACTONE 25 MG TAB PO SCH (10:34)
[2016-07-14] MEDS: LEVOTHYROXINE 0.05 MG TAB (50 MCG) PO SCH (10:35)
[2016-07-14] MEDS: FUROSEMIDE 20 MG TAB PO SCH (10:35)
[2016-07-14] MEDS: DOCUSATE SODIUM 100 MG CAP PO SCH ×2 (10:36→20:52)
[2016-07-14] MEDS ORDERED: RIVAROXABAN 20 MG TAB (XARELTO) PO SCH (18:00)
--- NOTE | 2016-07-14 18:46 | IPNPDOC ---
Subjective Date Seen The patient was seen on 07/14/16. Subjective Chief Complaint/HPI The patient is a 76-year-old female admitted with a reason for visit of Afib With Rbr. Cardiovascular: Denies: Chest Pain, Lt Headedness, Orthopnea, Palpitations, Paroxysmal Noc. Dyspnea Gastrointestinal: Denies: Abdominal Pain, Constipation, Diarrhea, Nausea, Vomiting Objective Physical Examination General Exam: Positive: Alert, No Acute Distress ENT Exam: Positive: Atraumatic, Mucous membr. moist/pink, Pharynx Normal Chest Exam: Positive: Clear to auscultation, Normal air movement Heart Exam: Positive: Normal S1, Normal S2, Rate Normal, Regular Rhythm, Negative: Murmurs, Rubs Abdomen Exam: Positive: Normal bowel sounds, Soft, Negative: Hepatospenomegaly, Tenderness Extremity Exam: Positive: Normal pulses, Negative: Clubbing, Cyanosis, Edema Assessment /Plan Problems (1) Atrial fibrillation with RVR Status: Resolved Problem Text: pt spontaneously converted to sinus rhythm dr almonte agreed to see pt continue to monitor on tele continue xarelto will not start any b-tk now due to history of hypotension and recent fall (2) Fracture of femoral neck Status: Acute Problem Text: s/p surgery pt had completed rehab at [facility] and was discharged will contnue PT (3) Syncope Status: Chronic (4) CAD (coronary artery disease) Status: Chronic Plan/VTE VTE Prophylaxis Ordered?: Yes VS, I&O, 24H, Fishbone Vital Signs/I&O Vital Signs Date Time Temp Pulse Resp B/P Pulse Ox O2 Delivery O2 Flow Rate FiO2 07/14/16 16:00 98.0 73 18 128/59 97 Room Air I&O- Last 24 Hours up to 6 AM 07/14/16 06:00 Intake Total 270 ml Output Total 700 ml Balance -430 ml Laboratory Data 24H LABS Laboratory Tests 2 07/14/16 05:04: Blood Urea Nitrogen 16, Creatinine 0.70, Sodium Level 139, Potassium Level 4.6, Chloride Level 102, Carbon Dioxide Level 31, Calcium Level 7.7L, Aspartate Amino Transf (AST/SGOT) 13L, Alanine Aminotransferase (ALT/SGPT) 12, Alkaline Phosphatase 135H, Total Bilirubin 0.2, Total Protein 6.2L, Albumin 2.0L, Albumin /Globulin Ratio 0.48L, Anion Gap 6L, White Blood Count 4.2, Red Blood Count 2.78L, Hemoglobin 8.4L, Hematocrit 26.8L, Mean Corpuscular Volume 96.3H, Mean Corpuscular Hemoglobin 30.2, Mean Corpuscular Hemoglobin Concent 31.4L, Red Cell Distribution Width 13.3, Platelet Count 278, Neutrophils (%) (Auto) 51.2, Lymphocytes (%) (Auto) 25.0, Monocytes (%) (Auto) 5.7H, Eosinophils (%) (Auto) 14.6H, Basophils (%) (Auto) 0.7, Neutrophils # (Auto) 2.2, Lymphocytes # (Auto) 1.1L, Monocytes # (Auto) 0.2, Eosinophils # (Auto) 0.6H, Basophils # (Auto) 0.0 , Glomerular Filtration Rate > 60.0, Large Unclassified Cells # 0.1, Large Unclassified Cells % 2.8, Magnesium Level 2.2 CBC/BMP Laboratory Tests 07/14/16 05:04 Calcium Level 7.7 L, Aspartate Amino Transf (AST/SGOT) 13 L, Alanine Aminotransferase (ALT/SGPT) 12, Alkaline Phosphatase 135 H, Total Bilirubin 0.2 , Total Protein 6.2 L, Albumin 2.0 L, Red Blood Count 2.78 L, Mean Corpuscular Volume 96.3 H, Mean Corpuscular Hemoglobin 30.2, Mean Corpuscular Hemoglobin Concent 31.4 L, Red Cell Distribution Width 13.3, Neutrophils (%) (Auto) 51.2, Lymphocytes (%) (Auto) 25.0, Monocytes (%) (Auto) 5.7 H, Eosinophils (%) (Auto) 14.6 H, Basophils (%) (Auto) 0.7, Neutrophils # (Auto) 2.2, Lymphocytes # (Auto ) 1.1 L, Monocytes # (Auto) 0.2, Eosinophils # (Auto) 0.6 H, Basophils # (Auto) 0.0 JACK PEÑA DO Jul 14, 2016 18:46
--- NOTE | 2016-07-14 21:20 | CR ---
DATE OF CONSULTATION: 07/14/2016 REFERRING PHYSICIAN: Dr. Fu INDICATION: Paroxysmal atrial fibrillation. HISTORY OF PRESENT ILLNESS: Mrs. Magana is known to me. She is a rather delightful 76-year-old female who has multitude of medical problems. She was actually admitted to this facility approximately 2 weeks ago after fall and hip fracture. She underwent surgery uneventfully. While in Physical Medicine and Rehabilitation (PM R) during ambulation yesterday while she was doing stairs, she started having palpitations. She was brought back to her room and 12-lead ECG revealed presence what looks to me like atypical flutter with 2:1 conduction and ventricular rate just over 150 beats per minute. She was brought to monitored bed but by the time she reached ICU she was back in sinus rhythm. The patient tells me that she believes that the duration of arrhythmia was only few minutes. She did not have any associated chest discomfort or shortness of breath but she felt slightly lightheaded. She had similar episode when she broke her hip. That time she was leaning forward to turn off the lamp and when she stood up, suddenly got dizzy,lightheaded and briefly lost consciousness. The patient has known paroxysmal atrial fibrillation for years. She was initially treated with sotalol, but the medication had to be discontinued because of prolonged QT interval. She also was given beta blockers, but they had to be discontinued as well due to bradycardia. There was never any documentation of sick sinus syndrome. At the time of my interview, the patient is an ICU bed. She was able to ambulate today without difficulty. She denies any chest pain or shortness of breath. She feels overall quite well. PAST MEDICAL HISTORY: 1. Coronary artery disease status post a balloon angioplasty of the intermediate branch and first obtuse marginal branch and stenting of the proximal right coronary artery in 2003. Her last cardiac catheterization was in August 2012 and revealed patent stent and left circumflex and less than 50% stenoses in the proximal left circumflex and mid LAD. 2. The patient has known mild aortic stenosis. 3. Paroxysmal atrial fibrillation dating back at least to 2014. 4. The patient has history of numerous abdominal surgeries. She initially had gastrectomy in 2006 that was later converted to Billroth II and retrocolic Chato-en-Y gastrojejunostomy and near total gastrectomy in 2014. There were resulting problems with severe hypoalbuminemia and peripheral edema and eventually feeding tube was placed in [facility]. Unfortunately it had to be removed earlier this week because of leak and recurrent infections. 5. History of hypertension that was reversed after the weight loss. 6. Known mitral insufficiency that was found to be approximately moderate on most recent echocardiograms 7. History of hypercholesterolemia. SURGICAL HISTORY: Hip surgery as above recently and multiple of GI surgery as above. OUTPATIENT MEDICATIONS: - albuterol as needed - Symbicort as needed - vitamin D once a week - iron 325 a day - fluconazole 100 a day - folic acid one a day - furosemide 20 a day - levothyroxine 50 mcg a day - pantoprazole 40 a day - Xarelto 20 a day - spironolactone 20 a day - tramadol twice a day as needed for pain ALLERGIES: She reports intolerance of atorvastatin and rosuvastatin. FAMILY HISTORY: Mother of pulmonary embolism. Her father needed a pacemaker. SOCIAL HISTORY: The patient lives alone. She is a , retired from work at [employer]. She has two children. She quit smoking in . She does not drink any alcohol. REVIEW OF SYSTEMS: There has been no recent fever or chills. See denies nausea or vomiting, chest pain, palpitations as per HPI. She denies any dyspnea with her level of activity. She has several episodes of dizziness and almost near syncope and one syncopal event that led to her fall that sounds orthostatic. She reports numerous problems with abdominal pain and leaking percutaneous endoscopic gastrostomy tube. As of recently she does not have any peripheral edema. No bleeding that she can recall recently. PHYSICAL EXAMINATION: Mrs. Magana who is an elderly woman who appears approximately her age. She does not appear acutely or chronically ill. Documented blood pressure 128/59, heart rate is in 60s to 70s. She is afebrile. Saturation 97% on room air. Her fluid balance is approximately equal yesterday. Documented weight is 49.1 kg. She is alert and oriented and appropriate. Her JVP is not elevated. Lungs are clear to auscultation with good air movement. Heart exam reveals regular rhythm, heart rate in 70s. She has a systolic ejection murmur over the aortic valve area that radiates towards her neck and she also has a blowing murmur at her apex. Both about 2 out of 6 intensity. Abdomen has bandage over site of removed J tube. But it is soft and nontender. There is no peripheral edema. LABORATORY DATA: WBC count 4.4, hemoglobin 8.8, hematocrit 28.0, platelet count 306,000. Potassium 4.4, creatinine 0.7, glucose 87. Albumin 2.0. Electrocardiogram on at 15:01 revealed atypical flutter with 2:1 conduction. Follow-up electrocardiogram on the same day at 20:29 revealed sinus rhythm and overall essentially normal tracing. Assessment and plan: Mrs. Magana is a delightful 76-year-old female who has established coronary artery disease with a remote history of coronary interventions and known paroxysmal atrial fibrillation had a brief episode of atypical atrial flutter in recovery period after hip surgery. Besides brief sensation of palpitations the arrhythmia was well tolerated. She was previously on antiarrhythmics and beta blockers but both had to be discontinued because of side effects. I am hoping that the current episode was a reflection of increased stress related to recent surgery. At this point I would continue current management with only anticoagulation. I will follow-up with the patient on outpatient basis. VINEET
[2016-07-14] MEDS: traMADol 50 MG TAB PO PRN (22:46)
[2016-07-15] VITALS: BP 119/58
[2016-07-15 04:00] VITALS: BP 116/56
[2016-07-15 05:26] LABS: BASO % 0.5 % (0.0-1.0); EOS # 0.6 K/mm3 (0.0-0.50); EOS % 14.1 % (0.0-3.0); LARGE UNSTAINED CELL # 0.2 K/mm3 (0.0-0.4); LARGE UNSTAINED CELL % 3.4 % (0.0-4.0); LYMPH # 1.2 K/mm3 (1.5-4.5); MEAN CORPUSCULAR HEMOGLOBIN 30.3 pg (27.0-33.0); MEAN CORPUSCULAR HGB CONC 31.3 g/dl (32.0-36.5); MEAN CORPUSCULAR VOLUME 96.7 fl (80.0-96.0); MONO # 0.3 K/mm3 (0.0-0.8); MONO % 6.2 % (0.0-5.0); NEUTROPHILS # 2.2 K/mm3 (1.8-7.7); NEUTROPHILS % 48.8 % (36.0-66.0); PLATELET COUNT, AUTOMATED 306 k/mm3 (150-450); RED CELL DISTRIBUTION WIDTH 13.3 % (11.5-14.5); WHITE BLOOD COUNT 4.4 K/mm3 (4.0-10.0)
[2016-07-15] MEDS: LEVOTHYROXINE 0.05 MG TAB (50 MCG) PO SCH (05:27)
[2016-07-15 05:45] LABS: ALBUMIN/GLOBULIN RATIO 0.49 (1.00-1.93); ALKALINE PHOSPHATASE 137 U/L (45-117); ALT/SGPT 12 U/L (12-78); ANION GAP 8 MEQ/L (8-16); AST/SGOT 12 U/L (15-37); BILIRUBIN,TOTAL 0.2 MG/DL (0.2-1.0); BLOOD UREA NITROGEN 18 MG/DL (7-18); CALCIUM LEVEL 7.9 MG/DL (8.8-10.2); CARBON DIOXIDE LEVEL 29 MEQ/L (21-32); CHLORIDE LEVEL 102 MEQ/L (98-107); GLOMERULAR FILTRATION RATE > 60.0 (>39); GLUCOSE, FASTING 87 MG/DL (83-110); MAGNESIUM LEVEL 2.2 MG/DL (1.8-2.4); POTASSIUM SERUM 4.4 MEQ/L (3.5-5.1); SODIUM LEVEL 139 MEQ/L (136-145); TOTAL PROTEIN 6.1 GM/DL (6.4-8.2)
[2016-07-15 06:55] VITALS: BP 151/68
[2016-07-15] MEDS: SYMBICORT 160/4.5MCG INHALER 6GM INH SCH (08:02)
[2016-07-15] MEDS: FUROSEMIDE 20 MG TAB PO SCH (08:27)
[2016-07-15] MEDS: FOLIC ACID 1 MG TAB PO SCH (08:27)
[2016-07-15] MEDS: DOCUSATE SODIUM 100 MG CAP PO SCH (08:27)
[2016-07-15] MEDS: SPIRONOLACTONE 25 MG TAB PO SCH (08:27)
[2016-07-15] MEDS: PANTOPRAZOLE 40MG TAB (PROTONIX) PO SCH (08:27)
[2016-07-15] MEDS: FERROUS SULFATE 325MG TAB PO SCH (08:27)
[2016-07-15] MEDS: NYSTATIN CREAM 15 GM TOP SCH (08:28)
--- NOTE | 2016-07-16 16:38 | DSES ---
DATE OF ADMISSION: 07/13/2016 DATE OF DISCHARGE: 07/15/2016 PRIMARY CARE PROVIDER: Dr. Celestin. BUTTON BROACHER: Dr. Acosta. ORTHOPEDIC SURGEON: Dr. Viera. DISCHARGE DIAGNOSES: 1. Atrial fibrillation with rapid ventricular response. 2. Left femoral neck fracture, status post percutaneous pinning with a gait abnormality and dysfunctional activities of daily living (ADLs). Surgery done on 07/06/2016. 3. History of gastric cancer, status post multiple surgeries culminating in total gastrectomy in 2014, with history of percutaneous endoscopic gastrostomy (PEG) tube insertion. Recently PEG tube was removed in June 2016, for infection. 4. Severe protein calorie malnutrition because of gastric surgeries. 5. Dumping syndrome. 6. Coronary artery disease status post angioplasty and stenting in 2003. Had repeat cardiac catheterization in August 2012. 7. Mild aortic stenosis, moderate mitral regurgitation. 8. History of orthostatic hypotension. 9. Deep venous thrombosis (DVT) since 2015, on anticoagulation. 10. Hypercholesterolemia. 11. Chronic obstructive pulmonary disease (COPD). 12. Diastolic congestive heart failure. 13. Hypothyroidism. 14. Gastroesophageal reflux disease (GERD). 15. Urinary tract infection, finished treatment. 16. Acute on chronic anemia due to acute blood loss and chronic disease. 17. Infection around PEG tube, possibly some fungal infection on the skin, treated with fluconazole. PEG tube was not being used at home for more than two weeks, so PEG tube was removed on 07/08/2016. DISCHARGE MEDICATIONS: - albuterol sulfate two puffs inhalation every four hours as needed for shortness of breath - albuterol sulfate nebulizer every four hours for shortness of breath - Symbicort 160/4.5 two puffs inhalation twice a day - ergocalciferol 50,000 units by mouth per week - ferrous sulfate 325 mg by mouth daily - folic acid 1 mg by mouth daily - Lasix 20 mg by mouth daily - Synthroid 50 mcg by mouth daily - Nystatin cream topically three times a day - pantoprazole 40 mg by mouth daily - Xarelto 20 mg by mouth daily - spironolactone 25 mg by mouth daily - tramadol 50 mg by mouth twice a day as needed for pain HOSPITAL COURSE: This is a 76-year-old female who initially presented to the hospital on 07/04/2016, after a fall and had sustained a left hip fracture. The patient underwent surgery on 07/05/2016. After that, the patient was transferred to inpatient acute rehabilitation unit for continuation of rehabilitation. The patient was going to be discharged home from rehabilitation unit on 07/13/2016. However, on the day prior to discharge, the patient was noted to have tachycardia and was found to have atrial fibrillation with rapid ventricular response (RVR) so the patient was transferred to inpatient medical unit. The patient was admitted to telemetry, but soon after coming upstairs, the patient spontaneously converted back to sinus rhythm without any intervention. The patient does have a history of paroxysmal atrial fibrillation; however, has not been on any medication because of her history of orthostatic hypotension and recurrent syncope, and so has not been able to tolerate any beta blockers or calcium-channel blockers or other rate-controlling agents. In the hospital, the patient was observed in telemetry unit for 48 hours without any recurrence of atrial fibrillation. The patient was also evaluated by Dr. Acosta. During this hospitalization, the patient's PEG tube was not used. The patient at home also two weeks prior to admission the patient has not been using the PEG tube. A little redness and discharge was noted around the PEG tube which was felt to be getting infected, so the PEG tube was removed by surgery on 07/08/2016. The patient has been tolerating oral diet well. The patient was given a course of fluconazole for abdominal skin infections. The patient also had lower extremity ultrasound done during this hospitalization on 07/04, which showed persistence of some DVT on the left. The patient does have a history of prior DVT. The patient was initially managed with Lovenox and subsequently changed to oral anticoagulants. The patient also had an episode of chest pain along with tachycardia, and had a CT angiogram done in the hospital, which did not show any pulmonary embolism, but did show small bilateral pleural effusions and small pericardial effusion. Rest of her home medications were continued. The patient does not have any significant edema at this point. The patient has stable vital signs. Tolerating oral feeds. Functionally, the patient is doing well and will be continued on physical therapy at home as per physical therapy (PT) and occupational therapy (OT) recommendations. The patient is going to be discharged home. PHYSICAL EXAMINATION: VITAL SIGNS: Temperature 98.4, pulse 71, respiratory rate 20, blood pressure 151/68, pulse oximetry 96% on room air. GENERAL: Patient awake, alert, and oriented times three. Lying down in bed in no acute distress. HEENT: Normocephalic, atraumatic. Moist mucous membranes. Anicteric eyes. CHEST: Clear to auscultation. CARDIOVASCULAR: S1, S2. Regular. No rub, murmur or gallop. ABDOMEN: Soft, nontender. Bowel sounds present. EXTREMITIES: No edema. LABORATORY DATA: WBC 4.4, hemoglobin 8.8, platelets 302. Sodium 139, potassium 4.4, chloride 102, bicarbonate 29, BUN 18, creatinine 0.7, glucose 87, calcium 7.9. Liver function tests are normal. Albumin 2. DISPOSITION: The patient is discharged home in stable condition with home PT. DISCHARGE INSTRUCTIONS: Patient to followup with primary care provider in two weeks. Diet as tolerated. Activity as per recommendations of physical therapy.
== END 2016-07-15 11:58 | disposition home or self-care (01) ==
LOC: M ICU 16:00 → INTOOBSV 16:00 → M MSPAV 07-15 06:54
PROVIDERS: ADMIT Internal Medicine; ATTEND Internal Medicine
DX: I48.0 Paroxysmal atrial fibrillation (principal); I25.10 Atherosclerotic heart disease of native coronary artery without angina pectoris; I35.0 Nonrheumatic aortic (valve) stenosis; E43 Unspecified severe protein-calorie malnutrition; K91.1 Postgastric surgery syndromes; I34.0 Nonrheumatic mitral (valve) insufficiency; S72.012D Unspecified intracapsular fracture of left femur, subsequent encounter for closed fracture with routine healing; Z98.61 Coronary angioplasty status; E78.00 Pure hypercholesterolemia, unspecified; K21.9 Gastro-esophageal reflux disease without esophagitis; N39.0 Urinary tract infection, site not specified; E88.09 Other disorders of plasma-protein metabolism, not elsewhere classified; Z86.718 Personal history of other venous thrombosis and embolism; Z85.028 Personal history of other malignant neoplasm of stomach; Z87.891 Personal history of nicotine dependence; Z79.899 Other long term (current) drug therapy; I50.30 Unspecified diastolic (congestive) heart failure
CPT/HCPCS: 36415; 80053; 83735; 85025; 93005; 94640; 97116; 97161; 97530; G0378; G8978; G8979; G8980

== ENCOUNTER → 2016-08-16 | Outpatient (REF) | payer MEDICARE, OTHER ==
[~2016-08-16] MED LIST changes: +FLUC100T PO
[2016-08-16 17:27] LABS: BASO % 0.9 % (0.0-1.0); EOS # 0.6 K/mm3 (0.0-0.50); EOS % 10.5 % (0.0-3.0); LARGE UNSTAINED CELL # 0.2 K/mm3 (0.0-0.4); LARGE UNSTAINED CELL % 2.9 % (0.0-4.0); LYMPH # 1.1 K/mm3 (1.5-4.5); LYMPH % 19.8 % (24.0-44.0); MEAN CORPUSCULAR HEMOGLOBIN 30.2 pg (27.0-33.0); MEAN CORPUSCULAR VOLUME 97.7 fl (80.0-96.0); MONO # 0.3 K/mm3 (0.0-0.8); MONO % 4.5 % (0.0-5.0); NEUTROPHILS # 3.4 K/mm3 (1.8-7.7); NEUTROPHILS % 61.4 % (36.0-66.0); PLATELET COUNT, AUTOMATED 269 k/mm3 (150-450); RED CELL DISTRIBUTION WIDTH 14.1 % (11.5-14.5); WHITE BLOOD COUNT 5.6 K/mm3 (4.0-10.0)
[2016-08-16 17:46] LABS: ALBUMIN 2.9 GM/DL (3.2-5.2); ALBUMIN/GLOBULIN RATIO 0.73 (1.00-1.93); BILIRUBIN,TOTAL 0.3 MG/DL (0.2-1.0); CREATININE FOR GFR 1.04 MG/DL (0.55-1.02); FREE T4 0.78 NG/DL (0.76-1.46); GLOMERULAR FILTRATION RATE 54.7 (>39); POTASSIUM SERUM 4.6 MEQ/L (3.5-5.1); TOTAL PROTEIN 6.9 GM/DL (6.4-8.2)
== END ==
LOC: M LABDRAW1 16:48
PROVIDERS: ATTEND Physician Assistant
DX: E88.09 Other disorders of plasma-protein metabolism, not elsewhere classified (principal)

== ENCOUNTER → 2016-08-26 | Outpatient (REF) | payer MEDICARE, OTHER | LOC: M LAB REF 13:23 | PROVIDERS: ATTEND Internal Medicine Pulmonary Disease | DX: J45.40 Moderate persistent asthma, uncomplicated (principal) ==

== ENCOUNTER → 2016-09-15 | Outpatient (REF) | payer MEDICARE, OTHER | LOC: M LAB REF 12:47 | PROVIDERS: ATTEND Internal Medicine Pulmonary Disease | DX: J45.40 Moderate persistent asthma, uncomplicated (principal) ==

== ENCOUNTER → 2016-10-07 | Outpatient (REF) | payer MEDICARE, OTHER ==
[2016-10-07 13:54] LABS: BASO % 1.1 % (0.0-1.0); EOS # 0.6 K/mm3 (0.0-0.50); EOS % 14.2 % (0.0-3.0); LARGE UNSTAINED CELL # 0.1 K/mm3 (0.0-0.4); LARGE UNSTAINED CELL % 2.3 % (0.0-4.0); LYMPH # 1.4 K/mm3 (1.5-4.5); LYMPH % 29.8 % (24.0-44.0); MEAN CORPUSCULAR HEMOGLOBIN 31.3 pg (27.0-33.0); MEAN CORPUSCULAR HGB CONC 32.4 g/dl (32.0-36.5); MEAN CORPUSCULAR VOLUME 96.9 fl (80.0-96.0); MONO # 0.2 K/mm3 (0.0-0.8); MONO % 4.4 % (0.0-5.0); NEUTROPHILS # 2.2 K/mm3 (1.8-7.7); NEUTROPHILS % 48.2 % (36.0-66.0); PLATELET COUNT, AUTOMATED 290 k/mm3 (150-450); RED CELL DISTRIBUTION WIDTH 14.1 % (11.5-14.5); WHITE BLOOD COUNT 4.6 K/mm3 (4.0-10.0)
[2016-10-07 14:26] LABS: ALBUMIN 2.5 GM/DL (3.2-5.2); ALBUMIN/GLOBULIN RATIO 0.69 (1.00-1.93); ALKALINE PHOSPHATASE 206 U/L (45-117); ALT/SGPT 20 U/L (12-78); ANION GAP 8 MEQ/L (8-16); AST/SGOT 19 U/L (15-37); BILIRUBIN,TOTAL 0.4 MG/DL (0.2-1.0); BLOOD UREA NITROGEN 10 MG/DL (7-18); CALCIUM LEVEL 7.5 MG/DL (8.8-10.2); CARBON DIOXIDE LEVEL 29 MEQ/L (21-32); CHLORIDE LEVEL 104 MEQ/L (98-107); CREATININE FOR GFR 0.66 MG/DL (0.55-1.02); GLOMERULAR FILTRATION RATE > 60.0 (>39); GLUCOSE, FASTING 81 MG/DL (83-110); POTASSIUM SERUM 3.1 MEQ/L (3.5-5.1); SODIUM LEVEL 141 MEQ/L (136-145); TOTAL PROTEIN 6.1 GM/DL (6.4-8.2)
== END ==
LOC: M LABDRAW1 13:20
PROVIDERS: ATTEND Physician Assistant Medical
DX: R60.0 Localized edema (principal)

== ENCOUNTER → 2016-10-07 | Outpatient (CLI) | payer MEDICARE, OTHER ==
--- NOTE | 2016-10-07 13:20 | REP ---
Duplex extremity venous ultrasound: Left lower extremity. History: Edema. Previous history of DVT. Findings: The deep veins are anechoic and fully compressible from the groin to the popliteal fossa in the left lower extremity. Color flow imaging is homogeneous. Spectral Doppler interrogation demonstrates intact respiratory variation in flow and normal manual augmentation of flow. There is no evidence of deep vein thrombosis. Soft tissue edema is seen posterior to the left knee. There is a 2.2 x 0.7 x 1.7 cm left inguinal lymph node. Impression: Negative left lower extremity duplex venous ultrasound. No evidence of deep vein thrombosis. Signed by Palmer Redd MD 10/07/2016 01:11 P
== END ==
LOC: M RAD 12:46
PROVIDERS: ATTEND Physician Assistant Medical
DX: R60.0 Localized edema (principal)

== ENCOUNTER → 2016-10-17 | Outpatient (REF) | payer MEDICARE, OTHER ==
[2016-10-17 12:50] LABS: ALBUMIN 2.5 GM/DL (3.2-5.2); ALBUMIN/GLOBULIN RATIO 0.63 (1.00-1.93); ALKALINE PHOSPHATASE 224 U/L (45-117); ALT/SGPT 23 U/L (12-78); ANION GAP 8 MEQ/L (8-16); AST/SGOT 20 U/L (15-37); BILIRUBIN,TOTAL 0.3 MG/DL (0.2-1.0); BLOOD UREA NITROGEN 16 MG/DL (7-18); CALCIUM LEVEL 8.1 MG/DL (8.8-10.2); CARBON DIOXIDE LEVEL 32 MEQ/L (21-32); CHLORIDE LEVEL 101 MEQ/L (98-107); CREATININE FOR GFR 0.72 MG/DL (0.55-1.02); GLOMERULAR FILTRATION RATE > 60.0 (>39); GLUCOSE, FASTING 115 MG/DL (83-110); POTASSIUM SERUM 3.6 MEQ/L (3.5-5.1); SODIUM LEVEL 141 MEQ/L (136-145); TOTAL PROTEIN 6.5 GM/DL (6.4-8.2)
== END ==
LOC: M LABDRAW1 11:50
PROVIDERS: ATTEND Physician Assistant Medical
DX: R60.0 Localized edema (principal)

== ENCOUNTER → 2016-11-07 | Outpatient (REF) | payer MEDICARE, OTHER ==
[~2016-11-07] MED LIST changes: -ATOR40TA PO; +ATOR40TA75 PO; -FOLI1TAB2 PO; +FOLI1TAB4 PO; +LEVO500T3 PO; -LEVO500T32 PO; +VITA1CAP40 PO; -VITA50003 PO
== END ==
LOC: M LABDRAW1 09:06
PROVIDERS: ATTEND Physician Assistant Medical
DX: R74.8 Abnormal levels of other serum enzymes (principal); E55.9 Vitamin D deficiency, unspecified

== ENCOUNTER → 2016-11-07 | Outpatient (REF) | payer MEDICARE, OTHER ==
[2016-11-07 12:09] LABS: BASO % 0.9 % (0.0-1.0); EOS # 0.2 K/mm3 (0.0-0.50); LARGE UNSTAINED CELL # 0.1 K/mm3 (0.0-0.4); LYMPH % 22.5 % (24.0-44.0); MEAN CORPUSCULAR HEMOGLOBIN 31.8 pg (27.0-33.0); MEAN CORPUSCULAR HGB CONC 32.2 g/dl (32.0-36.5); MEAN CORPUSCULAR VOLUME 98.8 fl (80.0-96.0); MONO # 0.2 K/mm3 (0.0-0.8); MONO % 3.9 % (0.0-5.0); NEUTROPHILS # 2.6 K/mm3 (1.8-7.7); NEUTROPHILS % 64.7 % (36.0-66.0); PLATELET COUNT, AUTOMATED 310 k/mm3 (150-450); RED CELL DISTRIBUTION WIDTH 13.9 % (11.5-14.5)
[2016-11-07 12:42] LABS: ALBUMIN 2.1 GM/DL (3.2-5.2); ALBUMIN/GLOBULIN RATIO 0.54 (1.00-1.93); ALKALINE PHOSPHATASE 226 U/L (45-117); ALT/SGPT 21 U/L (12-78); ANION GAP 6 MEQ/L (8-16); AST/SGOT 22 U/L (15-37); BILIRUBIN,TOTAL 0.3 MG/DL (0.2-1.0); BLOOD UREA NITROGEN 11 MG/DL (7-18); CALCIUM LEVEL 7.8 MG/DL (8.8-10.2); CARBON DIOXIDE LEVEL 29 MEQ/L (21-32); CHLORIDE LEVEL 108 MEQ/L (98-107); CREATININE FOR GFR 0.67 MG/DL (0.55-1.02); GLOMERULAR FILTRATION RATE > 60.0 (>39); GLUCOSE, FASTING 78 MG/DL (83-110); POTASSIUM SERUM 3.5 MEQ/L (3.5-5.1); SODIUM LEVEL 143 MEQ/L (136-145)
== END ==
LOC: M LABDRAW1 09:03
PROVIDERS: ATTEND Physician Assistant
DX: I48.0 Paroxysmal atrial fibrillation (principal); E88.09 Other disorders of plasma-protein metabolism, not elsewhere classified; R74.8 Abnormal levels of other serum enzymes; E55.9 Vitamin D deficiency, unspecified

== ENCOUNTER 2016-11-09 19:18 | Emergency (ER) | payer MEDICARE, OTHER ==
[~2016-11-09] VITALS: Ht 149.9 cm; Wt 49.9 kg
[2016-11-09] MEDS ORDERED: ONDANSETRON 4 MG ORAL DISINTEGRATING TAB (S0181) PO ONE (20:45)
[2016-11-09] MEDS ORDERED: MORPHINE 4 MG/ML 1ML SYRINGE IM ONE (20:45)
--- NOTE | 2016-11-09 21:20 | REPUSA ---
CLINICAL HISTORY: Fall. TECHNIQUE: Multiple axial brain CT scan sections were obtained from base to vertex without contrast a dministration. COMMENTS: The study shows normal configuration of sella turcica. There are no intra or extra-axial collections. There is no mass effect or midline shift. There is no evidence of hematoma formation. No hydrocephal us is present. No abnormal calcifications are noted. Changes of diffuse cerebellar and cerebral atrophy are noted with symmetrically dilated ventricles an d cortical sulci. There are mild bilateral periventricular hypolucencies compatible with white matter ischemic disease. No significant other abnormalities are seen either in the posterior fossa or supra tentorial compartment. There is mucosal thickening and partial opacification involving bilateral ethmoid air cells consisten t with chronic sinusitis. IMPRESSION: 1. Diffuse age-appropriate cerebellar and cerebral atrophy. 2. Bilateral periventricular hypolucencies compatible with chronic white matter ischemic disease. 3. Sinusitis as above. 4. No evidence of acute intracranial pathology. Thank you for your kind referral of this patient.
[2016-11-09 23:07] VITALS: BP 152/76
--- NOTE | 2016-11-10 09:23 | REP ---
RIGHT SHOULDER: Three views of the right shoulder are performed and compared with prior study of 12/19/2015. There is no acute fracture or dislocation. There is mild narrowing and spurring at the acromioclavicular and glenohumeral joints. IMPRESSION: Mild degenerative changes. No fracture or dislocation. Signed by Neto Larson MD 11/10/2016 10:51 A
== END 2016-11-09 23:09 | disposition home or self-care (01) ==
LOC: M ED 19:18
DX: S41.011A Laceration without foreign body of right shoulder, initial encounter (principal); S41.101A Unspecified open wound of right upper arm, initial encounter; S81.001A Unspecified open wound, right knee, initial encounter; I48.91 Unspecified atrial fibrillation; I25.2 Old myocardial infarction; J45.909 Unspecified asthma, uncomplicated; Z79.01 Long term (current) use of anticoagulants; Z87.891 Personal history of nicotine dependence; W01.198A Fall on same level from slipping, tripping and stumbling with subsequent striking against other object, initial encounter; Y92.099 Unspecified place in other non-institutional residence as the place of occurrence of the external cause; Y93.01 Activity, walking, marching and hiking; Y99.9 Unspecified external cause status

== ENCOUNTER → 2017-01-16 | Outpatient (REF) | payer MEDICARE, OTHER ==
[2017-01-16 10:22] LABS: BASO % 1.3 % (0.0-1.0); EOS # 0.2 K/mm3 (0.0-0.50); EOS % 6.6 % (0.0-3.0); LARGE UNSTAINED CELL # 0.1 K/mm3 (0.0-0.4); LYMPH # 0.8 K/mm3 (1.5-4.5); MEAN CORPUSCULAR HEMOGLOBIN 32.5 pg (27.0-33.0); MEAN CORPUSCULAR HGB CONC 33.2 g/dl (32.0-36.5); MEAN CORPUSCULAR VOLUME 97.9 fl (80.0-96.0); MONO # 0.2 K/mm3 (0.0-0.8); MONO % 6.5 % (0.0-5.0); NEUTROPHILS # 1.7 K/mm3 (1.8-7.7); NEUTROPHILS % 56.6 % (36.0-66.0); PLATELET COUNT, AUTOMATED 294 k/mm3 (150-450); RED CELL DISTRIBUTION WIDTH 14.4 % (11.5-14.5); WHITE BLOOD COUNT 3.1 K/mm3 (4.0-10.0)
[2017-01-16 10:52] LABS: FREE T4 0.94 NG/DL (0.76-1.46); PERCENT SATURATION 57.7 % (13.2-45.0)
[2017-01-16 11:28] LABS: FOLATE 17.2 NG/ML
== END ==
LOC: M LABDRAW1 09:54
PROVIDERS: ATTEND Family Medicine
DX: E03.9 Hypothyroidism, unspecified (principal); D64.9 Anemia, unspecified

== ENCOUNTER 2017-02-20 13:39 | Outpatient (CLI) | payer MEDICARE, OTHER ==
[~2017-02-20] VITALS: Ht 149.9 cm; Wt 48.2 kg
[2017-02-20] MEDS ORDERED: ZOLEDRONIC ACID 5 MG in APPROPRIATE DILUENT 1 EA IV ONE (14:00)
== END 2017-02-20 15:20 | disposition home or self-care (01) ==
LOC: M INFU 13:39
PROVIDERS: ATTEND Family Medicine
DX: M81.8 Other osteoporosis without current pathological fracture (principal); I20.9 Angina pectoris, unspecified; I48.91 Unspecified atrial fibrillation; I50.9 Heart failure, unspecified; J44.9 Chronic obstructive pulmonary disease, unspecified; D64.9 Anemia, unspecified; M19.90 Unspecified osteoarthritis, unspecified site; I25.2 Old myocardial infarction; Z79.899 Other long term (current) drug therapy; Z79.891 Long term (current) use of opiate analgesic; Z88.8 Allergy status to other drugs, medicaments and biological substances; Z85.028 Personal history of other malignant neoplasm of stomach; Z86.718 Personal history of other venous thrombosis and embolism; Z95.5 Presence of coronary angioplasty implant and graft
CPT/HCPCS: 96365; J3489

== ENCOUNTER → 2017-03-28 | Outpatient (CLI) | payer MEDICARE, OTHER ==
[2017-03-28 13:44] LABS: BASO # 0.1 10^3/uL (0.0-0.2); EOS # 0.2 10^3/uL (0.0-0.50); EOS % 4.2 % (0.0-3.0); IMMATURE GRANULOCYTE % 0.2 % (0-0); LYMPH # 1.1 10^3/uL (1.5-4.5); LYMPH % 22.6 % (24.0-44.0); MEAN CORPUSCULAR HEMOGLOBIN 31.6 pg (27.0-33.0); MEAN CORPUSCULAR HGB CONC 32.5 g/dl (32.0-36.5); MEAN CORPUSCULAR VOLUME 97.5 fl (80.0-96.0); MONO # 0.3 10^3/uL (0.0-0.8); MONO % 5.6 % (0.0-5.0); NEUTROPHILS # 3.2 10^3/uL (1.8-7.7); NEUTROPHILS % 66.4 % (36.0-66.0); PLATELET COUNT, AUTOMATED 301 10^3/uL (150-450); WHITE BLOOD COUNT 4.8 10^3/uL (4.0-10.0)
[2017-03-28 14:15] LABS: ALBUMIN 1.7 GM/DL (3.2-5.2); ALBUMIN/GLOBULIN RATIO 0.44 (1.00-1.93); ALKALINE PHOSPHATASE 207 U/L (45-117); ALT/SGPT 26 U/L (12-78); ANION GAP 10 MEQ/L (8-16); AST/SGOT 24 U/L (7-37); BILIRUBIN,TOTAL 0.3 MG/DL (0.2-1.0); BLOOD UREA NITROGEN 15 MG/DL (7-18); CALCIUM LEVEL 7.2 MG/DL (8.8-10.2); CARBON DIOXIDE LEVEL 27 MEQ/L (21-32); CHLORIDE LEVEL 104 MEQ/L (98-107); CREATININE FOR GFR 0.95 MG/DL (0.55-1.02); FREE T4 0.99 NG/DL (0.76-1.46); GLOMERULAR FILTRATION RATE > 60.0 (>39); GLUCOSE, FASTING 157 MG/DL (83-110); MAGNESIUM LEVEL 2.1 MG/DL (1.8-2.4); POTASSIUM SERUM 3.1 MEQ/L (3.5-5.1); SODIUM LEVEL 141 MEQ/L (136-145); TOTAL PROTEIN 5.6 GM/DL (6.4-8.2)
== END ==
LOC: M SMT 10:35
PROVIDERS: ATTEND Family Medicine
DX: R60.0 Localized edema (principal); D63.8 Anemia in other chronic diseases classified elsewhere; E03.9 Hypothyroidism, unspecified

== ENCOUNTER → 2017-03-28 | Outpatient (CLI) | payer MEDICARE, OTHER ==
--- NOTE | 2017-03-28 16:52 | REP ---
Clinical: Localized edema. Technique: PA and lateral. Comparison: 07/11/2016. Findings: Mediastinum and cardiac silhouette are normal. Lung rendon demonstrate chronic interstitial changes. Chronic left lower lobe/retrocardiac atelectasis cannot be excluded. No acute consolidation, effusion, or pneumothorax. Skeletal structures demonstrate age-related osteopenia and degenerative changes. Impression: Chronic stable changes. Cannot exclude [id number] retrocardiac atelectasis. Signed by Enrrique Lepe MD 03/28/2017 12:06 P
== END ==
LOC: M LAB 11:24 → M RAD 11:24
PROVIDERS: ATTEND Family Medicine
DX: R60.0 Localized edema (principal); J98.4 Other disorders of lung; M85.88 Other specified disorders of bone density and structure, other site; D63.8 Anemia in other chronic diseases classified elsewhere; E03.9 Hypothyroidism, unspecified

== ENCOUNTER → 2017-04-04 | Outpatient (CLI) | payer MEDICARE, OTHER ==
[2017-04-04 20:14] LABS: ANION GAP 7 MEQ/L (8-16); BLOOD UREA NITROGEN 20 MG/DL (7-18); CALCIUM LEVEL 7.5 MG/DL (8.8-10.2); CARBON DIOXIDE LEVEL 30 MEQ/L (21-32); CHLORIDE LEVEL 104 MEQ/L (98-107); CREATININE FOR GFR 0.91 MG/DL (0.55-1.02); GLOMERULAR FILTRATION RATE > 60.0 (>39); GLUCOSE, FASTING 151 MG/DL (83-110); POTASSIUM SERUM 3.2 MEQ/L (3.5-5.1); SODIUM LEVEL 141 MEQ/L (136-145)
== END ==
LOC: M SMT 13:16
PROVIDERS: ATTEND Family Medicine
DX: R60.0 Localized edema (principal); R73.9 Hyperglycemia, unspecified

== ENCOUNTER → 2017-04-17 | Outpatient (CLI) | payer MEDICARE, OTHER ==
[2017-04-17 15:15] LABS: ALBUMIN 1.9 GM/DL (3.2-5.2); ALBUMIN/GLOBULIN RATIO 0.48 (1.00-1.93); ALKALINE PHOSPHATASE 174 U/L (45-117); ALT/SGPT 24 U/L (12-78); ANION GAP 9 MEQ/L (8-16); AST/SGOT 27 U/L (7-37); BILIRUBIN,TOTAL 0.6 MG/DL (0.2-1.0); BLOOD UREA NITROGEN 12 MG/DL (7-18); CALCIUM LEVEL 7.7 MG/DL (8.8-10.2); CARBON DIOXIDE LEVEL 26 MEQ/L (21-32); CHLORIDE LEVEL 107 MEQ/L (98-107); CHOLESTEROL LEVEL 156 MG/DL (<200); CREATININE FOR GFR 0.73 MG/DL (0.55-1.02); FREE T4 0.79 NG/DL (0.76-1.46); GLOMERULAR FILTRATION RATE > 60.0 (>39); GLUCOSE, FASTING 89 MG/DL (83-110); POTASSIUM SERUM 3.2 MEQ/L (3.5-5.1); SODIUM LEVEL 142 MEQ/L (136-145); TOTAL PROTEIN 5.9 GM/DL (6.4-8.2); TRIGLYCERIDES LEVEL 61 MG/DL (<150)
== END ==
LOC: M SMT 10:48
PROVIDERS: ATTEND Family Medicine
DX: E03.9 Hypothyroidism, unspecified (principal); E55.9 Vitamin D deficiency, unspecified; R60.0 Localized edema; I48.0 Paroxysmal atrial fibrillation

== ENCOUNTER 2017-05-01 10:13 | Emergency (ER) | payer MEDICARE, OTHER ==
[2017-05-01 10:52] LABS: BASO % 0.8 % (0.0-1.0); EOS # 0.3 10^3/uL (0.0-0.50); EOS % 5.6 % (0.0-3.0); HEMOGLOBIN 11.9 g/dl (12.0-16.0); IMMATURE GRANULOCYTE % 0.2 % (0-0); MEAN CORPUSCULAR HEMOGLOBIN 32.5 pg (27.0-33.0); MEAN CORPUSCULAR HGB CONC 33.1 g/dl (32.0-36.5); MEAN CORPUSCULAR VOLUME 98.4 fl (80.0-96.0); MONO # 0.3 10^3/uL (0.0-0.8); MONO % 6.6 % (0.0-5.0); NEUTROPHILS # 3.5 10^3/uL (1.8-7.7); NEUTROPHILS % 67.8 % (36.0-66.0); PLATELET COUNT, AUTOMATED 245 10^3/uL (150-450); RED BLOOD COUNT 3.66 10^6/uL (4.00-5.40); RED CELL DISTRIBUTION WIDTH 14.3 % (11.5-14.5); WHITE BLOOD COUNT 5.2 10^3/uL (4.0-10.0)
[2017-05-01 11:10] LABS: PROTHROMBIN TIME 12.2 SECONDS (12.4-14.5)
[2017-05-01 11:24] LABS: ALBUMIN 1.9 GM/DL (3.2-5.2); ALBUMIN/GLOBULIN RATIO 0.42 (1.00-1.93); ALKALINE PHOSPHATASE 152 U/L (45-117); ALT/SGPT 24 U/L (12-78); ANION GAP 6 MEQ/L (8-16); AST/SGOT 25 U/L (7-37); BILIRUBIN,DIRECT 0.2 MG/DL (0.0-0.2); BILIRUBIN,TOTAL 0.4 MG/DL (0.2-1.0); BLOOD UREA NITROGEN 15 MG/DL (7-18); CALCIUM LEVEL 7.8 MG/DL (8.8-10.2); CARBON DIOXIDE LEVEL 30 MEQ/L (21-32); CHLORIDE LEVEL 104 MEQ/L (98-107); CK-MB VALUE MASS 1.5 NG/ML (0.0-3.6); CPK CREATINE PHOSPHOKINASE 46 U/L (26-192); CREATININE FOR GFR 0.97 MG/DL (0.55-1.02); GLOMERULAR FILTRATION RATE 59.3 (>39); GLUCOSE, FASTING 86 MG/DL (83-110); LIPASE 32 U/L (73-393); MB/CK RELATIVE INDEX 3.26 (< OR =4); POTASSIUM SERUM 3.3 MEQ/L (3.5-5.1); SODIUM LEVEL 140 MEQ/L (136-145); TOTAL PROTEIN 6.4 GM/DL (6.4-8.2); TROPONIN I < 0.02 NG/ML (< 0.10)
[2017-05-01] MEDS ORDERED: FLEET OIL RETENTION ENEMA PR (12:15)
[2017-05-01] MEDS: NS 1,000 ML IV (12:30)
[2017-05-01] MEDS: POTASSIUM CHLORIDE 10 MEQ SR TABLET PO (12:44)
== END 2017-05-01 15:49 | disposition home or self-care (01) ==
LOC: M ED 10:13
DX: E88.09 Other disorders of plasma-protein metabolism, not elsewhere classified (principal); R19.7 Diarrhea, unspecified; J44.9 Chronic obstructive pulmonary disease, unspecified; I25.2 Old myocardial infarction; Z86.73 Personal history of transient ischemic attack (TIA), and cerebral infarction without residual deficits; Z85.028 Personal history of other malignant neoplasm of stomach; Z95.5 Presence of coronary angioplasty implant and graft; Z79.890 Hormone replacement therapy; Z79.01 Long term (current) use of anticoagulants; Z88.8 Allergy status to other drugs, medicaments and biological substances
CPT/HCPCS: 93005

== ENCOUNTER → 2017-05-08 | Outpatient (CLI) | payer MEDICARE, OTHER ==
[2017-05-08 14:25] LABS: ALBUMIN 1.8 GM/DL (3.2-5.2); ALBUMIN/GLOBULIN RATIO 0.49 (1.00-1.93); ALKALINE PHOSPHATASE 140 U/L (45-117); ALT/SGPT 21 U/L (12-78); ANION GAP 6 MEQ/L (8-16); AST/SGOT 20 U/L (7-37); BILIRUBIN,TOTAL 0.4 MG/DL (0.2-1.0); BLOOD UREA NITROGEN 18 MG/DL (7-18); CALCIUM LEVEL 7.3 MG/DL (8.8-10.2); CARBON DIOXIDE LEVEL 28 MEQ/L (21-32); CHLORIDE LEVEL 107 MEQ/L (98-107); CREATININE FOR GFR 0.91 MG/DL (0.55-1.02); GLOMERULAR FILTRATION RATE > 60.0 (>39); GLUCOSE, FASTING 97 MG/DL (83-110); NT-PRO BNP 807 PG/ML (<450); SODIUM LEVEL 141 MEQ/L (136-145); TOTAL PROTEIN 5.5 GM/DL (6.4-8.2)
== END ==
LOC: M SMT 10:05
DX: R60.0 Localized edema (principal)
CPT/HCPCS: 83735

== ENCOUNTER 2017-06-01 11:38 | Emergency (ER) | payer MEDICARE, OTHER ==
[2017-06-01] MEDS: PERCOCET 5MG/325MG TAB PO (13:41)
== END 2017-06-01 14:06 | disposition home or self-care (01) ==
LOC: M ED 11:38
DX: S81.812A Laceration without foreign body, left lower leg, initial encounter (principal); S81.811A Laceration without foreign body, right lower leg, initial encounter; S51.011A Laceration without foreign body of right elbow, initial encounter; I48.91 Unspecified atrial fibrillation; I10 Essential (primary) hypertension; Z79.01 Long term (current) use of anticoagulants; Z87.891 Personal history of nicotine dependence; W01.198A Fall on same level from slipping, tripping and stumbling with subsequent striking against other object, initial encounter; Y92.410 Unspecified street and highway as the place of occurrence of the external cause; Y93.01 Activity, walking, marching and hiking
CPT/HCPCS: 70450

== ENCOUNTER 2017-06-18 12:46 | Inpatient (IN) | payer MEDICARE, OTHER ==
[2017-06-18 13:32] LABS: BASO % 0.7 % (0.0-1.0); EOS # 0.2 10^3/uL (0.0-0.50); EOS % 3.8 % (0.0-3.0); HEMATOCRIT 30.1 % (36.0-47.0); IMMATURE GRANULOCYTE % 0.2 % (0-3.0); LYMPH % 21.6 % (24.0-44.0); MEAN CORPUSCULAR HEMOGLOBIN 32.9 pg (27.0-33.0); MEAN CORPUSCULAR HGB CONC 33.2 g/dl (32.0-36.5); MONO # 0.3 10^3/uL (0.0-0.8); MONO % 6.3 % (0.0-5.0); NEUTROPHILS % 67.4 % (36.0-66.0); PLATELET COUNT, AUTOMATED 290 10^3/uL (150-450); RED BLOOD COUNT 3.04 10^6/uL (4.00-5.40); RED CELL DISTRIBUTION WIDTH 13.1 % (11.5-14.5); WHITE BLOOD COUNT 4.5 10^3/uL (4.0-10.0)
[2017-06-18 13:43] LABS: INR 1.69; PROTHROMBIN TIME 20.4 SECONDS (12.4-14.5)
[2017-06-18 14:00] LABS: ALBUMIN 1.6 GM/DL (3.2-5.2); ALBUMIN/GLOBULIN RATIO 0.42 (1.00-1.93); ALKALINE PHOSPHATASE 169 U/L (45-117); ALT/SGPT 16 U/L (12-78); ANION GAP 7 MEQ/L (8-16); AST/SGOT 16 U/L (7-37); BILIRUBIN,DIRECT 0.1 MG/DL (0.0-0.2); BILIRUBIN,TOTAL 0.2 MG/DL (0.2-1.0); BLOOD UREA NITROGEN 10 MG/DL (7-18); CALCIUM LEVEL 7.2 MG/DL (8.8-10.2); CARBON DIOXIDE LEVEL 31 MEQ/L (21-32); CHLORIDE LEVEL 102 MEQ/L (98-107); CPK CREATINE PHOSPHOKINASE 36 U/L (26-192); CREATININE FOR GFR 0.78 MG/DL (0.55-1.30); GLOMERULAR FILTRATION RATE > 60.0 (>39); GLUCOSE, FASTING 139 MG/DL (70-100); LIPASE 26 U/L (73-393); POTASSIUM SERUM 2.9 MEQ/L (3.5-5.1); SODIUM LEVEL 140 MEQ/L (136-145); TOTAL PROTEIN 5.4 GM/DL (6.4-8.2); TROPONIN I < 0.02 NG/ML (< 0.10)
[2017-06-18 14:01] LABS: CK-MB VALUE MASS 1.2 NG/ML (0.0-3.6); MB/CK RELATIVE INDEX 3.33 (< OR =4)
[2017-06-18 14:08] LABS: LACTIC ACID SEPSIS PROTOCOL 2.1 MMOL/L (0.4-2.0)
[2017-06-18] MEDS: ONDANSETRON 4MG/2ML VIAL (J2405) IV ×2 (14:17→16:16)
[2017-06-18] MEDS: MORPHINE 2 MG/ML 1ML SYRINGE (J2270) IV (14:17)
[2017-06-18] MEDS: NS 1,000 ML IV (14:17)
[2017-06-18] MEDS: POTASSIUM CHLORIDE 10 MEQ SR TABLET PO (14:56)
[2017-06-18] MEDS: GASTROGRAFIN SOLUTION 30ML PO ×2 (14:56→15:15)
[2017-06-18] MEDS: KCL 10MEQ IN 100ML SWI (KRUN) 10 MEQ in APPROPRIATE DILUENT 1 EA IV (14:57)
[2017-06-18] MEDS ORDERED: ISOVUE-370 76% 100ML VIAL (Q9967) As Ordered (15:25)
[2017-06-18 16:33] LABS: KETONE, URINE AUTO RFX NEGATIVE (NEGATIVE); NITRITE, URINE AUTO RFX NEGATIVE (NEGATIVE); RBC, URINE AUTO RFX 1 /HPF (0-3); SPECIFIC GRAVITY UR AUTO RFX 1.005 (1.002-1.035); SQUAM EPITHELIAL CELL UR AURFX 0 /HPF (0-6); WBC, URINE AUTO RFX 2 /HPF (0-3)
[2017-06-18 16:34] LABS: LEUKOCYTE ESTERASE UR AUTO RFX TRACE (NEGATIVE)
[2017-06-18] MEDS: KCL 20MEQ IN D5/0.45NS 1000ML 1,000 ML IV (21:00)
[2017-06-18] MEDS: metroNIDAZOLE 500 MG in APPROPRIATE DILUENT 1 EA IV (22:00)
[2017-06-19 00:09] LABS: BLOOD UREA NITROGEN 10 MG/DL (7-18); CREATININE FOR GFR 0.69 MG/DL (0.55-1.30); GLOMERULAR FILTRATION RATE > 60.0 (>39); GLUCOSE, FASTING 77 MG/DL (70-100)
[2017-06-19 00:10] LABS: ANION GAP 8 MEQ/L (8-16); CALCIUM LEVEL 7.2 MG/DL (8.8-10.2); CARBON DIOXIDE LEVEL 29 MEQ/L (21-32); CHLORIDE LEVEL 106 MEQ/L (98-107); CPK CREATINE PHOSPHOKINASE 34 U/L (26-192); MB/CK RELATIVE INDEX 2.94 (< OR =4); POTASSIUM SERUM 3.6 MEQ/L (3.5-5.1); SODIUM LEVEL 143 MEQ/L (136-145)
[2017-06-19 00:11] LABS: TROPONIN I < 0.02 NG/ML (< 0.10)
[2017-06-19] MEDS: CIPROFLOXACIN 400 MG in APPROPRIATE DILUENT 1 EA IV ×3 (02:48→20:29)
[2017-06-19] MEDS: ENOXAPARIN 40 MG/0.4 ML SYRINGE (J1650) SC ×3 (02:49→20:28)
[2017-06-19] MEDS: metroNIDAZOLE 500 MG in APPROPRIATE DILUENT 1 EA IV ×3 (05:19→21:38)
[2017-06-19] MEDS: KCL 20MEQ IN D5/0.45NS 1000ML 1,000 ML IV ×2 (05:19→09:16)
[2017-06-19 07:02] LABS: HEMATOCRIT 25.4 % (36.0-47.0); HEMOGLOBIN 8.3 g/dl (12.0-16.0); MEAN CORPUSCULAR HEMOGLOBIN 32.2 pg (27.0-33.0); MEAN CORPUSCULAR HGB CONC 32.7 g/dl (32.0-36.5); MEAN CORPUSCULAR VOLUME 98.4 fl (80.0-96.0); PLATELET COUNT, AUTOMATED 236 10^3/uL (150-450); RED BLOOD COUNT 2.58 10^6/uL (4.00-5.40); WHITE BLOOD COUNT 4.5 10^3/uL (4.0-10.0)
[2017-06-19 07:25] LABS: ALKALINE PHOSPHATASE 132 U/L (45-117); ALT/SGPT 15 U/L (12-78); ANION GAP 6 MEQ/L (8-16); AST/SGOT 14 U/L (7-37); BILIRUBIN,TOTAL 0.2 MG/DL (0.2-1.0); BLOOD UREA NITROGEN 8 MG/DL (7-18); CALCIUM LEVEL 6.7 MG/DL (8.8-10.2); CARBON DIOXIDE LEVEL 27 MEQ/L (21-32); CHLORIDE LEVEL 107 MEQ/L (98-107); CPK CREATINE PHOSPHOKINASE 25 U/L (26-192); GLOMERULAR FILTRATION RATE > 60.0 (>39); GLUCOSE, FASTING 109 MG/DL (70-100); POTASSIUM SERUM 3.5 MEQ/L (3.5-5.1); SODIUM LEVEL 140 MEQ/L (136-145)
[2017-06-19 07:26] LABS: ALBUMIN 1.2 GM/DL (3.2-5.2); ALBUMIN/GLOBULIN RATIO 0.36 (1.00-1.93); C REACTIVE PROTEIN QUANTITATIV 1.03 MG/DL (0.00-0.30); MAGNESIUM LEVEL 1.9 MG/DL (1.8-2.4); TOTAL PROTEIN 4.5 GM/DL (6.4-8.2); TROPONIN I 0.02 NG/ML (< 0.10)
[2017-06-19] MEDS: LEVOTHYROXINE 50MCG TABLET (0.05MG) PO (08:09)
[2017-06-19] MEDS: PANTOPRAZOLE 40MG INJ (PROTONIX) (C9113) IV (09:15)
[2017-06-19] MEDS ORDERED: MORPHINE 4 MG/ML 1ML VIAL (J2270) IV (14:10)
[2017-06-20] MEDS: metroNIDAZOLE 500 MG in APPROPRIATE DILUENT 1 EA IV ×3 (05:34→22:18)
[2017-06-20] MEDS: LEVOTHYROXINE 50MCG TABLET (0.05MG) PO (05:34)
[2017-06-20 06:48] LABS: HEMATOCRIT 24.9 % (36.0-47.0); HEMOGLOBIN 8.2 g/dl (12.0-16.0); MEAN CORPUSCULAR HEMOGLOBIN 32.3 pg (27.0-33.0); MEAN CORPUSCULAR HGB CONC 32.9 g/dl (32.0-36.5); PLATELET COUNT, AUTOMATED 221 10^3/uL (150-450); RED BLOOD COUNT 2.54 10^6/uL (4.00-5.40); RED CELL DISTRIBUTION WIDTH 12.9 % (11.5-14.5); WHITE BLOOD COUNT 4.7 10^3/uL (4.0-10.0)
[2017-06-20 06:59] LABS: ALBUMIN 1.1 GM/DL (3.2-5.2); ALBUMIN/GLOBULIN RATIO 0.34 (1.00-1.93); ALKALINE PHOSPHATASE 125 U/L (45-117); ALT/SGPT 13 U/L (12-78); ANION GAP 5 MEQ/L (8-16); AST/SGOT 12 U/L (7-37); BILIRUBIN,TOTAL 0.2 MG/DL (0.2-1.0); BLOOD UREA NITROGEN 9 MG/DL (7-18); CALCIUM LEVEL 6.8 MG/DL (8.8-10.2); CARBON DIOXIDE LEVEL 28 MEQ/L (21-32); CHLORIDE LEVEL 107 MEQ/L (98-107); CREATININE FOR GFR 0.75 MG/DL (0.55-1.30); GLOMERULAR FILTRATION RATE > 60.0 (>39); GLUCOSE, FASTING 88 MG/DL (70-100); POTASSIUM SERUM 3.9 MEQ/L (3.5-5.1); SODIUM LEVEL 140 MEQ/L (136-145); TOTAL PROTEIN 4.3 GM/DL (6.4-8.2)
[2017-06-20] MEDS: PANTOPRAZOLE 40MG INJ (PROTONIX) (C9113) IV (09:00)
[2017-06-20] MEDS: ENOXAPARIN 40 MG/0.4 ML SYRINGE (J1650) SC ×2 (09:00→21:00)
[2017-06-20] MEDS: CIPROFLOXACIN 400 MG in APPROPRIATE DILUENT 1 EA IV ×2 (09:00→21:00)
[2017-06-20] MEDS: ACETAMINOPHEN TAB 650MG DOSE (2X325MG) PO (10:36)
[2017-06-21] MEDS: LEVOTHYROXINE 50MCG TABLET (0.05MG) PO (06:13)
[2017-06-21] MEDS: metroNIDAZOLE 500 MG in APPROPRIATE DILUENT 1 EA IV (06:13)
[2017-06-21 06:42] LABS: HEMATOCRIT 25.6 % (36.0-47.0); HEMOGLOBIN 8.6 g/dl (12.0-16.0); MEAN CORPUSCULAR HEMOGLOBIN 32.6 pg (27.0-33.0); MEAN CORPUSCULAR HGB CONC 33.6 g/dl (32.0-36.5); PLATELET COUNT, AUTOMATED 241 10^3/uL (150-450); RED BLOOD COUNT 2.64 10^6/uL (4.00-5.40); RED CELL DISTRIBUTION WIDTH 12.9 % (11.5-14.5); WHITE BLOOD COUNT 4.3 10^3/uL (4.0-10.0)
[2017-06-21 06:59] LABS: ALBUMIN 1.2 GM/DL (3.2-5.2); ALBUMIN/GLOBULIN RATIO 0.38 (1.00-1.93); ALKALINE PHOSPHATASE 127 U/L (45-117); ALT/SGPT 13 U/L (12-78); ANION GAP 6 MEQ/L (8-16); AST/SGOT 13 U/L (7-37); BILIRUBIN,TOTAL 0.3 MG/DL (0.2-1.0); BLOOD UREA NITROGEN 8 MG/DL (7-18); CALCIUM LEVEL 7.1 MG/DL (8.8-10.2); CARBON DIOXIDE LEVEL 28 MEQ/L (21-32); CHLORIDE LEVEL 107 MEQ/L (98-107); CREATININE FOR GFR 0.74 MG/DL (0.55-1.30); GLOMERULAR FILTRATION RATE > 60.0 (>39); GLUCOSE, FASTING 79 MG/DL (70-100); POTASSIUM SERUM 3.6 MEQ/L (3.5-5.1); SODIUM LEVEL 141 MEQ/L (136-145); TOTAL PROTEIN 4.4 GM/DL (6.4-8.2)
[2017-06-21] MEDS: ENOXAPARIN 40 MG/0.4 ML SYRINGE (J1650) SC (08:49)
[2017-06-21] MEDS: PANTOPRAZOLE 40MG INJ (PROTONIX) (C9113) IV (08:49)
[2017-06-21] MEDS: CIPROFLOXACIN 400 MG in APPROPRIATE DILUENT 1 EA IV (08:50)
[2017-06-21] MEDS: metroNIDAZOLE (FLAGYL) 500 MG TAB PO ×2 (14:55→21:37)
[2017-06-21] MEDS: FUROSEMIDE 20 MG TAB PO (17:11)
[2017-06-21] MEDS: CIPROFLOXACIN 500 MG TAB PO (17:11)
[2017-06-21] MEDS: ONDANSETRON 4MG/2ML VIAL (J2405) IV (17:53)
[2017-06-21] MEDS: ACETAMINOPHEN 325 MG/10.15 ML UDC PO ×2 (21:37→22:35)
[2017-06-21] MEDS: RIVAROXABAN 20 MG TAB (XARELTO) PO (21:37)
[2017-06-22 06:17] LABS: HEMATOCRIT 25.7 % (36.0-47.0); HEMOGLOBIN 8.7 g/dl (12.0-16.0); MEAN CORPUSCULAR HEMOGLOBIN 32.2 pg (27.0-33.0); MEAN CORPUSCULAR HGB CONC 33.9 g/dl (32.0-36.5); MEAN CORPUSCULAR VOLUME 95.2 fl (80.0-96.0); PLATELET COUNT, AUTOMATED 240 10^3/uL (150-450); WHITE BLOOD COUNT 4.1 10^3/uL (4.0-10.0)
[2017-06-22] MEDS: metroNIDAZOLE (FLAGYL) 500 MG TAB PO ×2 (06:17→14:00)
[2017-06-22] MEDS: LEVOTHYROXINE 50MCG TABLET (0.05MG) PO (06:17)
[2017-06-22] MEDS: CIPROFLOXACIN 500 MG TAB PO ×2 (06:17→18:29)
[2017-06-22 06:32] LABS: ALBUMIN 1.2 GM/DL (3.2-5.2); ALBUMIN/GLOBULIN RATIO 0.38 (1.00-1.93); ALKALINE PHOSPHATASE 121 U/L (45-117); ALT/SGPT 14 U/L (12-78); ANION GAP 7 MEQ/L (8-16); AST/SGOT 14 U/L (7-37); BILIRUBIN,TOTAL 0.2 MG/DL (0.2-1.0); BLOOD UREA NITROGEN 7 MG/DL (7-18); CALCIUM LEVEL 6.8 MG/DL (8.8-10.2); CARBON DIOXIDE LEVEL 26 MEQ/L (21-32); CHLORIDE LEVEL 111 MEQ/L (98-107); CREATININE FOR GFR 0.74 MG/DL (0.55-1.30); GLOMERULAR FILTRATION RATE > 60.0 (>39); GLUCOSE, FASTING 86 MG/DL (70-100); MAGNESIUM LEVEL 1.9 MG/DL (1.8-2.4); POTASSIUM SERUM 3.2 MEQ/L (3.5-5.1); SODIUM LEVEL 144 MEQ/L (136-145); TOTAL PROTEIN 4.4 GM/DL (6.4-8.2)
[2017-06-22] MEDS: LOPERAMIDE 2 MG CAP PO (08:51)
[2017-06-22] MEDS: PANTOPRAZOLE 40MG TAB (PROTONIX) PO (08:51)
[2017-06-22] MEDS: FUROSEMIDE 20 MG TAB PO (08:51)
[2017-06-22] MEDS: POTASSIUM CHLORIDE 10 MEQ SR TABLET PO (08:52)
[2017-06-22] MEDS: LACTOBACILLUS ACIDOPHILUS CAP (BACID) PO ×2 (18:29→21:25)
[2017-06-22] MEDS: CIPROFLOXACIN 400 MG in APPROPRIATE DILUENT 1 EA IV (19:59)
[2017-06-22] MEDS: metroNIDAZOLE 500 MG in APPROPRIATE DILUENT 1 EA IV (21:24)
[2017-06-22] MEDS: POTASSIUM CHLORIDE 10% LIQ 20 MEQ/15 ML UDC PO (21:24)
[2017-06-22] MEDS: RIVAROXABAN 20 MG TAB (XARELTO) PO (21:25)
[2017-06-23] MEDS: metroNIDAZOLE 500 MG in APPROPRIATE DILUENT 1 EA IV ×3 (05:27→22:21)
[2017-06-23] MEDS: CIPROFLOXACIN 400 MG in APPROPRIATE DILUENT 1 EA IV ×2 (06:28→18:45)
[2017-06-23] MEDS: LEVOTHYROXINE 50MCG TABLET (0.05MG) PO (06:28)
[2017-06-23 07:24] LABS: HEMATOCRIT 26.8 % (36.0-47.0); MEAN CORPUSCULAR HEMOGLOBIN 32.8 pg (27.0-33.0); MEAN CORPUSCULAR HGB CONC 33.6 g/dl (32.0-36.5); MEAN CORPUSCULAR VOLUME 97.8 fl (80.0-96.0); PLATELET COUNT, AUTOMATED 216 10^3/uL (150-450); RED BLOOD COUNT 2.74 10^6/uL (4.00-5.40); RED CELL DISTRIBUTION WIDTH 13.2 % (11.5-14.5)
[2017-06-23 07:30] LABS: ALBUMIN 1.2 GM/DL (3.2-5.2); ALBUMIN/GLOBULIN RATIO 0.38 (1.00-1.93); ALKALINE PHOSPHATASE 116 U/L (45-117); ALT/SGPT 15 U/L (12-78); ANION GAP 8 MEQ/L (8-16); AST/SGOT 17 U/L (7-37); BILIRUBIN,TOTAL 0.2 MG/DL (0.2-1.0); BLOOD UREA NITROGEN 6 MG/DL (7-18); CALCIUM LEVEL 6.7 MG/DL (8.8-10.2); CARBON DIOXIDE LEVEL 26 MEQ/L (21-32); CHLORIDE LEVEL 109 MEQ/L (98-107); CREATININE FOR GFR 0.74 MG/DL (0.55-1.30); GLOMERULAR FILTRATION RATE > 60.0 (>39); GLUCOSE, FASTING 94 MG/DL (70-100); MAGNESIUM LEVEL 1.9 MG/DL (1.8-2.4); POTASSIUM SERUM 3.5 MEQ/L (3.5-5.1); SODIUM LEVEL 143 MEQ/L (136-145); TOTAL PROTEIN 4.4 GM/DL (6.4-8.2)
[2017-06-23] MEDS ORDERED: E-Z-GAS II EFFERVESCENT PACKET (SODIUM BICARB./CITRIC ACID/SIMETHICONE) As Ordered (11:19)
[2017-06-23] MEDS ORDERED: E-Z-PAQUE 96% w/w SUSP 176GM BTL As Ordered (11:19)
[2017-06-23] MEDS ORDERED: E-Z-HD 98% w/w 340GM SUSP BTL As Ordered (11:19)
[2017-06-23] MEDS: PANTOPRAZOLE 40MG TAB (PROTONIX) PO (11:54)
[2017-06-23] MEDS: VITAMIN D 50,000 UNITS CAPSULE (ERGOCALCIFEROL 1.25MG) PO (11:54)
[2017-06-23] MEDS: FUROSEMIDE 20 MG TAB PO (11:55)
[2017-06-23] MEDS: POTASSIUM CHLORIDE 10% LIQ 20 MEQ/15 ML UDC PO ×2 (12:06→20:27)
[2017-06-23] MEDS: LOPERAMIDE 2 MG CAP PO (17:20)
[2017-06-23] MEDS: LACTOBACILLUS ACIDOPHILUS CAP (BACID) PO (18:45)
[2017-06-23] MEDS: RIVAROXABAN 20 MG TAB (XARELTO) PO (20:28)
[2017-06-24] MEDS: metroNIDAZOLE 500 MG in APPROPRIATE DILUENT 1 EA IV ×3 (05:18→21:16)
[2017-06-24] MEDS: LEVOTHYROXINE 50MCG TABLET (0.05MG) PO (06:15)
[2017-06-24] MEDS: CIPROFLOXACIN 400 MG in APPROPRIATE DILUENT 1 EA IV ×2 (06:15→18:37)
[2017-06-24 06:25] LABS: HEMATOCRIT 27.9 % (36.0-47.0); HEMOGLOBIN 9.3 g/dl (12.0-16.0); MEAN CORPUSCULAR HEMOGLOBIN 32.5 pg (27.0-33.0); MEAN CORPUSCULAR HGB CONC 33.3 g/dl (32.0-36.5); MEAN CORPUSCULAR VOLUME 97.6 fl (80.0-96.0); PLATELET COUNT, AUTOMATED 225 10^3/uL (150-450); RED BLOOD COUNT 2.86 10^6/uL (4.00-5.40); RED CELL DISTRIBUTION WIDTH 13.2 % (11.5-14.5); WHITE BLOOD COUNT 4.4 10^3/uL (4.0-10.0)
[2017-06-24 06:32] LABS: ALBUMIN 1.3 GM/DL (3.2-5.2); ALBUMIN/GLOBULIN RATIO 0.37 (1.00-1.93); ALKALINE PHOSPHATASE 114 U/L (45-117); ALT/SGPT 20 U/L (12-78); ANION GAP 5 MEQ/L (8-16); AST/SGOT 18 U/L (7-37); BILIRUBIN,TOTAL 0.2 MG/DL (0.2-1.0); BLOOD UREA NITROGEN 6 MG/DL (7-18); CARBON DIOXIDE LEVEL 29 MEQ/L (21-32); CHLORIDE LEVEL 108 MEQ/L (98-107); CREATININE FOR GFR 0.76 MG/DL (0.55-1.30); GLOMERULAR FILTRATION RATE > 60.0 (>39); GLUCOSE, FASTING 82 MG/DL (70-100); POTASSIUM SERUM 3.9 MEQ/L (3.5-5.1); SODIUM LEVEL 142 MEQ/L (136-145); TOTAL PROTEIN 4.8 GM/DL (6.4-8.2)
[2017-06-24] MEDS: LACTOBACILLUS ACIDOPHILUS CAP (BACID) PO ×2 (08:28→17:04)
[2017-06-24] MEDS: PANTOPRAZOLE 40MG TAB (PROTONIX) PO (08:29)
[2017-06-24] MEDS: FUROSEMIDE 20 MG TAB PO (08:29)
[2017-06-24] MEDS: POTASSIUM CHLORIDE 10% LIQ 20 MEQ/15 ML UDC PO (08:30)
[2017-06-24] MEDS: LOPERAMIDE 2 MG CAP PO (12:59)
[2017-06-24] MEDS: SPIRONOLACTONE 25 MG TAB PO (17:00)
[2017-06-24] MEDS: RIVAROXABAN 20 MG TAB (XARELTO) PO (21:15)
[2017-06-25] MEDS: LEVOTHYROXINE 50MCG TABLET (0.05MG) PO (05:43)
[2017-06-25] MEDS: metroNIDAZOLE 500 MG in APPROPRIATE DILUENT 1 EA IV (05:43)
[2017-06-25 06:13] LABS: HEMATOCRIT 25.9 % (36.0-47.0); HEMOGLOBIN 8.7 g/dl (12.0-16.0); MEAN CORPUSCULAR HEMOGLOBIN 32.7 pg (27.0-33.0); MEAN CORPUSCULAR HGB CONC 33.6 g/dl (32.0-36.5); MEAN CORPUSCULAR VOLUME 97.4 fl (80.0-96.0); PLATELET COUNT, AUTOMATED 212 10^3/uL (150-450); RED BLOOD COUNT 2.66 10^6/uL (4.00-5.40); RED CELL DISTRIBUTION WIDTH 13.2 % (11.5-14.5); WHITE BLOOD COUNT 4.8 10^3/uL (4.0-10.0)
[2017-06-25 06:44] LABS: ALBUMIN 1.2 GM/DL (3.2-5.2); ALBUMIN/GLOBULIN RATIO 0.36 (1.00-1.93); ALKALINE PHOSPHATASE 107 U/L (45-117); ALT/SGPT 13 U/L (12-78); ANION GAP 6 MEQ/L (8-16); AST/SGOT 18 U/L (7-37); BILIRUBIN,TOTAL 0.2 MG/DL (0.2-1.0); BLOOD UREA NITROGEN 6 MG/DL (7-18); CALCIUM LEVEL 7.1 MG/DL (8.8-10.2); CARBON DIOXIDE LEVEL 29 MEQ/L (21-32); CHLORIDE LEVEL 106 MEQ/L (98-107); CREATININE FOR GFR 0.76 MG/DL (0.55-1.30); GLOMERULAR FILTRATION RATE > 60.0 (>39); GLUCOSE, FASTING 76 MG/DL (70-100); MAGNESIUM LEVEL 1.8 MG/DL (1.8-2.4); POTASSIUM SERUM 3.7 MEQ/L (3.5-5.1); SODIUM LEVEL 141 MEQ/L (136-145); TOTAL PROTEIN 4.5 GM/DL (6.4-8.2)
[2017-06-25] MEDS ORDERED: CIPROFLOXACIN/D5W 400 MG/200 ML BAG (J0744) As Ordered (06:47)
[2017-06-25] MEDS: CIPROFLOXACIN 400 MG in APPROPRIATE DILUENT 1 EA IV (06:54)
[2017-06-25] MEDS: LACTOBACILLUS ACIDOPHILUS CAP (BACID) PO (08:15)
[2017-06-25] MEDS: SPIRONOLACTONE 25 MG TAB PO (08:15)
[2017-06-25] MEDS: PANTOPRAZOLE 40MG TAB (PROTONIX) PO (08:16)
[2017-06-25] MEDS: FUROSEMIDE 20 MG TAB PO (08:16)
[2017-06-25] MEDS: LOPERAMIDE 2 MG CAP PO (10:10)
== END 2017-06-25 10:55 | disposition home or self-care (01) | DRG 392 ==
LOC: M MSPAV 06-19 14:09 → M ED 12:46 → M ED INP 19:57
DX: K52.9 Noninfective gastroenteritis and colitis, unspecified (principal); E46 Unspecified protein-calorie malnutrition; I50.32 Chronic diastolic (congestive) heart failure; I82.431 Acute embolism and thrombosis of right popliteal vein; E87.6 Hypokalemia; K21.9 Gastro-esophageal reflux disease without esophagitis; R26.81 Unsteadiness on feet; R29.6 Repeated falls; I25.10 Atherosclerotic heart disease of native coronary artery without angina pectoris; E03.9 Hypothyroidism, unspecified; Z86.718 Personal history of other venous thrombosis and embolism; Z95.9 Presence of cardiac and vascular implant and graft, unspecified; Z90.710 Acquired absence of both cervix and uterus; Z79.01 Long term (current) use of anticoagulants; Z85.00 Personal history of malignant neoplasm of unspecified digestive organ; Z79.899 Other long term (current) drug therapy; S50.811A Abrasion of right forearm, initial encounter; X58.XXXA Exposure to other specified factors, initial encounter; Y93.9 Activity, unspecified

== ENCOUNTER → 2017-07-07 | Outpatient (REF) | payer MEDICARE, OTHER | LOC: M LAB REF 08:50 | DX: K44.9 Diaphragmatic hernia without obstruction or gangrene (principal); K21.0 Gastro-esophageal reflux disease with esophagitis; Z85.028 Personal history of other malignant neoplasm of stomach | CPT/HCPCS: 84311 ==

== ENCOUNTER → 2017-07-31 | Outpatient (CLI) | payer MEDICARE, OTHER ==
[2017-07-31 13:09] LABS: EOS # 0.2 10^3/uL (0.0-0.50); EOS % 4.1 % (0.0-3.0); HEMATOCRIT 30.8 % (36.0-47.0); HEMOGLOBIN 9.9 g/dl (12.0-15.5); IMMATURE GRANULOCYTE % 0.2 % (0-3.0); LYMPH # 1.1 10^3/uL (1.5-4.5); LYMPH % 26.5 % (24.0-44.0); MEAN CORPUSCULAR HEMOGLOBIN 31.6 pg (27.0-33.0); MEAN CORPUSCULAR HGB CONC 32.1 g/dl (32.0-36.5); MEAN CORPUSCULAR VOLUME 98.4 fl (80.0-96.0); MONO # 0.3 10^3/uL (0.0-0.8); MONO % 6.1 % (0.0-5.0); NEUTROPHILS # 2.6 10^3/uL (1.8-7.7); NEUTROPHILS % 62.1 % (36.0-66.0); PLATELET COUNT, AUTOMATED 264 10^3/uL (150-450); RED BLOOD COUNT 3.13 10^6/uL (4.00-5.40); RED CELL DISTRIBUTION WIDTH 14.7 % (11.5-14.5); WHITE BLOOD COUNT 4.1 10^3/uL (4.0-10.0)
[2017-07-31 13:53] LABS: ALBUMIN 1.7 GM/DL (3.2-5.2); ALBUMIN/GLOBULIN RATIO 0.45 (1.00-1.93); ALKALINE PHOSPHATASE 103 U/L (45-117); ALT/SGPT 28 U/L (12-78); ANION GAP 5 MEQ/L (8-16); AST/SGOT 22 U/L (7-37); BILIRUBIN,TOTAL 0.2 MG/DL (0.2-1.0); BLOOD UREA NITROGEN 18 MG/DL (7-18); CALCIUM LEVEL 7.4 MG/DL (8.8-10.2); CARBON DIOXIDE LEVEL 30 MEQ/L (21-32); CHLORIDE LEVEL 107 MEQ/L (98-107); CREATININE FOR GFR 0.71 MG/DL (0.55-1.30); FREE T4 0.85 NG/DL (0.76-1.46); GLOMERULAR FILTRATION RATE > 60.0 (>39); GLUCOSE, FASTING 126 MG/DL (70-100); SODIUM LEVEL 142 MEQ/L (136-145); TOTAL PROTEIN 5.5 GM/DL (6.4-8.2)
== END ==
LOC: M SMT 11:06
DX: R60.0 Localized edema (principal)
CPT/HCPCS: 84443

== ENCOUNTER → 2017-08-21 | Outpatient (CLI) | payer MEDICARE, OTHER ==
[2017-08-21 13:32] LABS: HEMATOCRIT 29.9 % (36.0-47.0); HEMOGLOBIN 9.4 g/dl (12.0-15.5); MEAN CORPUSCULAR HEMOGLOBIN 31.9 pg (27.0-33.0); MEAN CORPUSCULAR HGB CONC 31.4 g/dl (32.0-36.5); MEAN CORPUSCULAR VOLUME 101.4 fl (80.0-96.0); PLATELET COUNT, AUTOMATED 304 10^3/uL (150-450); RED BLOOD COUNT 2.95 10^6/uL (4.00-5.40); RED CELL DISTRIBUTION WIDTH 15.2 % (11.5-14.5); WHITE BLOOD COUNT 4.8 10^3/uL (4.0-10.0)
[2017-08-21 14:07] LABS: ALBUMIN 2.4 GM/DL (3.2-5.2); ALBUMIN/GLOBULIN RATIO 0.69 (1.00-1.93); ALKALINE PHOSPHATASE 117 U/L (45-117); ALT/SGPT 19 U/L (12-78); ANION GAP 6 MEQ/L (8-16); AST/SGOT 18 U/L (7-37); BILIRUBIN,TOTAL 0.3 MG/DL (0.2-1.0); BLOOD UREA NITROGEN 22 MG/DL (7-18); CALCIUM LEVEL 7.8 MG/DL (8.8-10.2); CARBON DIOXIDE LEVEL 22 MEQ/L (21-32); CHLORIDE LEVEL 115 MEQ/L (98-107); CREATININE FOR GFR 0.85 MG/DL (0.55-1.30); GLOMERULAR FILTRATION RATE > 60.0 (>39); GLUCOSE, FASTING 112 MG/DL (70-100); SODIUM LEVEL 143 MEQ/L (136-145); TOTAL PROTEIN 5.9 GM/DL (6.4-8.2)
== END ==
LOC: M SMT 09:24
DX: R63.4 Abnormal weight loss (principal); Z48.815 Encounter for surgical aftercare following surgery on the digestive system; K86.81 Exocrine pancreatic insufficiency
CPT/HCPCS: 80053

== ENCOUNTER → 2017-09-07 | Outpatient (CLI) | payer MEDICARE, OTHER ==
[2017-09-07 14:01] LABS: HEMATOCRIT 30.2 % (36.0-47.0); HEMOGLOBIN 9.5 g/dl (12.0-15.5); MEAN CORPUSCULAR HEMOGLOBIN 32.5 pg (27.0-33.0); MEAN CORPUSCULAR HGB CONC 31.5 g/dl (32.0-36.5); MEAN CORPUSCULAR VOLUME 103.4 fl (80.0-96.0); PLATELET COUNT, AUTOMATED 322 10^3/uL (150-450); RED BLOOD COUNT 2.92 10^6/uL (4.00-5.40); RED CELL DISTRIBUTION WIDTH 14.4 % (11.5-14.5); WHITE BLOOD COUNT 5.4 10^3/uL (4.0-10.0)
[2017-09-07 14:18] LABS: ALBUMIN 2.8 GM/DL (3.2-5.2); ALBUMIN/GLOBULIN RATIO 0.74 (1.00-1.93); ALKALINE PHOSPHATASE 145 U/L (45-117); ALT/SGPT 22 U/L (12-78); ANION GAP 7 MEQ/L (8-16); AST/SGOT 19 U/L (7-37); BILIRUBIN,TOTAL 0.3 MG/DL (0.2-1.0); BLOOD UREA NITROGEN 24 MG/DL (7-18); CALCIUM LEVEL 8.1 MG/DL (8.8-10.2); CARBON DIOXIDE LEVEL 25 MEQ/L (21-32); CHLORIDE LEVEL 113 MEQ/L (98-107); GLOMERULAR FILTRATION RATE > 60.0 (>39); GLUCOSE, FASTING 90 MG/DL (70-100); POTASSIUM SERUM 4.1 MEQ/L (3.5-5.1); SODIUM LEVEL 145 MEQ/L (136-145); TOTAL PROTEIN 6.6 GM/DL (6.4-8.2)
== END ==
LOC: M SMT 09:06
DX: K59.1 Functional diarrhea (principal); K86.81 Exocrine pancreatic insufficiency; R93.3 Abnormal findings on diagnostic imaging of other parts of digestive tract; K44.9 Diaphragmatic hernia without obstruction or gangrene; K29.40 Chronic atrophic gastritis without bleeding

== ENCOUNTER 2017-09-09 17:03 | Inpatient (IN) | payer MEDICARE, OTHER ==
[2017-09-09] MEDS: MECLIZINE 25 MG TABLET PO (18:05)
[2017-09-09] MEDS: FUROSEMIDE 40 MG/4 ML VIAL (J1940) IV ×2 (18:06→21:30)
[2017-09-09 18:08] LABS: BASO # 0.1 10^3/uL (0.0-0.2); BASO % 1.4 % (0.0-1.0); EOS % 17.4 % (0.0-3.0); HEMATOCRIT 29.4 % (36.0-47.0); HEMOGLOBIN 9.4 g/dl (12.0-15.5); IMMATURE GRANULOCYTE % 0.4 % (0-3.0); LYMPH # 1.4 10^3/uL (1.5-4.5); LYMPH % 24.8 % (24.0-44.0); MEAN CORPUSCULAR HEMOGLOBIN 32.2 pg (27.0-33.0); MEAN CORPUSCULAR VOLUME 100.7 fl (80.0-96.0); MONO # 0.4 10^3/uL (0.0-0.8); MONO % 7.2 % (0.0-5.0); NEUTROPHILS # 2.8 10^3/uL (1.8-7.7); NEUTROPHILS % 48.8 % (36.0-66.0); PLATELET COUNT, AUTOMATED 309 10^3/uL (150-450); RED BLOOD COUNT 2.92 10^6/uL (4.00-5.40); RED CELL DISTRIBUTION WIDTH 14.4 % (11.5-14.5); WHITE BLOOD COUNT 5.7 10^3/uL (4.0-10.0)
[2017-09-09 18:30] LABS: ACETAMINOPHEN LEVEL < 2.0 UG/ML (10.0-30.0); ALBUMIN 2.6 GM/DL (3.2-5.2); ALBUMIN/GLOBULIN RATIO 0.67 (1.00-1.93); ALKALINE PHOSPHATASE 145 U/L (45-117); ALT/SGPT 18 U/L (12-78); ANION GAP 8 MEQ/L (8-16); AST/SGOT 22 U/L (7-37); BILIRUBIN,DIRECT < 0.1 MG/DL (0.0-0.2); BILIRUBIN,TOTAL 0.2 MG/DL (0.2-1.0); BLOOD UREA NITROGEN 21 MG/DL (7-18); CARBON DIOXIDE LEVEL 23 MEQ/L (21-32); CHLORIDE LEVEL 112 MEQ/L (98-107); CPK CREATINE PHOSPHOKINASE 78 U/L (26-192); CREATININE FOR GFR 0.67 MG/DL (0.55-1.30); GLOMERULAR FILTRATION RATE > 60.0 (>39); GLUCOSE, FASTING 91 MG/DL (70-100); SALICYLATE LEVEL < 1.7 MG/DL (5.0-30.0); SODIUM LEVEL 143 MEQ/L (136-145); TOTAL PROTEIN 6.5 GM/DL (6.4-8.2); TROPONIN I 0.76 NG/ML (< 0.10)
[2017-09-09 18:36] LABS: CK-MB VALUE MASS 4.2 NG/ML (<3.6); MB/CK RELATIVE INDEX 5.38 (< OR =4)
[2017-09-09 18:42] LABS: KETONE, URINE AUTO RFX NEGATIVE (NEGATIVE); LEUKOCYTE ESTERASE UR AUTO RFX NEGATIVE (NEGATIVE); NITRITE, URINE AUTO RFX NEGATIVE (NEGATIVE); RBC, URINE AUTO RFX 5 /HPF (0-3); SPECIFIC GRAVITY UR AUTO RFX 1.009 (1.002-1.035); SQUAM EPITHELIAL CELL UR AURFX 1 /HPF (0-6); WBC, URINE AUTO RFX 1 /HPF (0-3)
[2017-09-09 19:34] LABS: NT-PRO BNP 1515 PG/ML (<450)
[2017-09-09] MEDS: SPIRONOLACTONE 25 MG TAB PO (21:35)
[2017-09-09 23:16] LABS: CK-MB VALUE MASS 3.1 NG/ML (<3.6); CPK CREATINE PHOSPHOKINASE 58 U/L (26-192); MB/CK RELATIVE INDEX 5.34 (< OR =4); TROPONIN I 0.63 NG/ML (< 0.10)
[2017-09-10] MEDS: RIVAROXABAN 20 MG TAB (XARELTO) PO ×2 (01:06→17:40)
[2017-09-10] MEDS ORDERED: SLF 3 ML SYR IV (02:30)
[2017-09-10 04:43] LABS: BASO # 0.1 10^3/uL (0.0-0.2); BASO % 1.4 % (0.0-1.0); HEMATOCRIT 24.6 % (36.0-47.0); HEMOGLOBIN 7.9 g/dl (12.0-15.5); IMMATURE GRANULOCYTE % 0.2 % (0-3.0); LYMPH # 1.1 10^3/uL (1.5-4.5); LYMPH % 23.1 % (24.0-44.0); MEAN CORPUSCULAR HEMOGLOBIN 31.9 pg (27.0-33.0); MEAN CORPUSCULAR HGB CONC 32.1 g/dl (32.0-36.5); MEAN CORPUSCULAR VOLUME 99.2 fl (80.0-96.0); MONO # 0.5 10^3/uL (0.0-0.8); MONO % 9.2 % (0.0-5.0); NEUTROPHILS # 2.2 10^3/uL (1.8-7.7); NEUTROPHILS % 45.7 % (36.0-66.0); PLATELET COUNT, AUTOMATED 285 10^3/uL (150-450); RED BLOOD COUNT 2.48 10^6/uL (4.00-5.40); RED CELL DISTRIBUTION WIDTH 14.1 % (11.5-14.5); WHITE BLOOD COUNT 4.9 10^3/uL (4.0-10.0)
[2017-09-10 04:57] LABS: CPK CREATINE PHOSPHOKINASE 41 U/L (26-192); MB/CK RELATIVE INDEX 4.87 (< OR =4); TROPONIN I 0.61 NG/ML (< 0.10)
[2017-09-10 05:08] LABS: ALBUMIN 2.2 GM/DL (3.2-5.2); ALBUMIN/GLOBULIN RATIO 0.71 (1.00-1.93); ALKALINE PHOSPHATASE 115 U/L (45-117); ALT/SGPT 15 U/L (12-78); ANION GAP 5 MEQ/L (8-16); AST/SGOT 17 U/L (7-37); BILIRUBIN,TOTAL 0.3 MG/DL (0.2-1.0); BLOOD UREA NITROGEN 20 MG/DL (7-18); CALCIUM LEVEL 7.5 MG/DL (8.8-10.2); CARBON DIOXIDE LEVEL 27 MEQ/L (21-32); CHLORIDE LEVEL 113 MEQ/L (98-107); CREATININE FOR GFR 0.64 MG/DL (0.55-1.30); FREE THYROXINE INDEX 2.1 % (1.3-4.8); GLOMERULAR FILTRATION RATE > 60.0 (>39); GLUCOSE, FASTING 76 MG/DL (70-100); MAGNESIUM LEVEL 2.1 MG/DL (1.8-2.4); POTASSIUM SERUM 3.5 MEQ/L (3.5-5.1); SODIUM LEVEL 145 MEQ/L (136-145); T UPTAKE 36 % (30-39); THYROXINE (T4) 5.7 UG/DL (4.5-12.0); TOTAL PROTEIN 5.3 GM/DL (6.4-8.2)
[2017-09-10 05:16] LABS: EOS % 20.4 % (0.0-3.0); POSITIVE DIFF POS FLAG
[2017-09-10] MEDS: SLF 3 ML SYR IV ×3 (06:00→21:36)
[2017-09-10] MEDS: FUROSEMIDE 40 MG/4 ML VIAL (J1940) IV ×2 (09:25→16:32)
[2017-09-10] MEDS: PANTOPRAZOLE 40MG TAB (PROTONIX) PO (09:25)
[2017-09-10] MEDS: CREON-12 CAPSULE PO ×4 (09:25→17:40)
[2017-09-10] MEDS: SPIRONOLACTONE 25 MG TAB PO ×2 (09:25→16:31)
[2017-09-10] MEDS: LEVOTHYROXINE 50MCG TABLET (0.05MG) PO (09:25)
[2017-09-10] MEDS: PNEUMOCOCCAL VACCINE 0.5ML SYRINGE(90732) PNEUMOVAX 23 IM (09:27)
[2017-09-10 10:09] LABS: FERRITIN 203 NG/ML (8-252); IRON (FE) 30 UG/DL (50-170); PERCENT SATURATION 15.3 % (13.2-45.0); TOTAL IRON BINDING CAPACITY 196 UG/DL (250-450)
[2017-09-10 14:27] LABS: IMMEDIATE SPIN CROSSMATCH 1 1
[2017-09-10] MEDS: ACETAMINOPHEN TAB 650MG DOSE (2X325MG) PO (20:02)
[2017-09-10 20:20] LABS: CK-MB VALUE MASS 1.1 NG/ML (<3.6); CPK CREATINE PHOSPHOKINASE 34 U/L (26-192); MAGNESIUM LEVEL 2.1 MG/DL (1.8-2.4); MB/CK RELATIVE INDEX 3.23 (< OR =4); TROPONIN I 0.47 NG/ML (< 0.10)
[2017-09-11] MEDS: ALBUTEROL SULFATE 2.5 MG/0.5 ML INH NEB SOLN NEB (02:54)
[2017-09-11 05:25] LABS: BASO # 0.1 10^3/uL (0.0-0.2); BASO % 1.1 % (0.0-1.0); EOS # 0.9 10^3/uL (0.0-0.50); EOS % 17.3 % (0.0-3.0); HEMATOCRIT 30.5 % (36.0-47.0); IMMATURE GRANULOCYTE % 0.2 % (0-3.0); LYMPH # 1.2 10^3/uL (1.5-4.5); LYMPH % 22.5 % (24.0-44.0); MEAN CORPUSCULAR HEMOGLOBIN 31.5 pg (27.0-33.0); MEAN CORPUSCULAR HGB CONC 32.5 g/dl (32.0-36.5); MEAN CORPUSCULAR VOLUME 97.1 fl (80.0-96.0); MONO # 0.5 10^3/uL (0.0-0.8); MONO % 9.4 % (0.0-5.0); NEUTROPHILS # 2.6 10^3/uL (1.8-7.7); NEUTROPHILS % 49.5 % (36.0-66.0); PLATELET COUNT, AUTOMATED 272 10^3/uL (150-450); RED BLOOD COUNT 3.14 10^6/uL (4.00-5.40); RED CELL DISTRIBUTION WIDTH 15.8 % (11.5-14.5); WHITE BLOOD COUNT 5.3 10^3/uL (4.0-10.0)
[2017-09-11 05:33] LABS: HEMOGLOBIN 9.9 g/dl (12.0-15.5)
[2017-09-11 05:38] LABS: ALBUMIN 2.1 GM/DL (3.2-5.2); ALBUMIN/GLOBULIN RATIO 0.55 (1.00-1.93); ALKALINE PHOSPHATASE 119 U/L (45-117); ALT/SGPT 14 U/L (12-78); ANION GAP 8 MEQ/L (8-16); AST/SGOT 17 U/L (7-37); BILIRUBIN,TOTAL 0.2 MG/DL (0.2-1.0); BLOOD UREA NITROGEN 23 MG/DL (7-18); CALCIUM LEVEL 7.6 MG/DL (8.8-10.2); CARBON DIOXIDE LEVEL 25 MEQ/L (21-32); CHLORIDE LEVEL 113 MEQ/L (98-107); CREATININE FOR GFR 0.69 MG/DL (0.55-1.30); GLOMERULAR FILTRATION RATE > 60.0 (>39); GLUCOSE, FASTING 109 MG/DL (70-100); MAGNESIUM LEVEL 2.2 MG/DL (1.8-2.4); POTASSIUM SERUM 3.1 MEQ/L (3.5-5.1); SODIUM LEVEL 146 MEQ/L (136-145); TOTAL PROTEIN 5.9 GM/DL (6.4-8.2)
[2017-09-11] MEDS: SLF 3 ML SYR IV (06:00)
[2017-09-11 08:09] LABS: FOLATE 13.5 NG/ML (>5.4); VITAMIN B12 LEVEL 167 PG/ML (247-911)
[2017-09-11] MEDS: FUROSEMIDE 40 MG TAB PO (09:00)
[2017-09-11] MEDS: SPIRONOLACTONE 25 MG TAB PO (09:00)
[2017-09-11] MEDS: PANTOPRAZOLE 40MG TAB (PROTONIX) PO (09:00)
[2017-09-11] MEDS: POTASSIUM CHLORIDE 10 MEQ SR TABLET PO (09:00)
[2017-09-11] MEDS: LEVOTHYROXINE 50MCG TABLET (0.05MG) PO (09:00)
[2017-09-11 09:42] LABS: BEDSIDE GLUCOSE 98 MG/DL (83-110)
[2017-09-11] MEDS: CYANOCOBALAMIN 1,000 MCG/ML VIAL (J3420) IM (09:50)
[2017-09-11] MEDS: CREON-12 CAPSULE PO (09:50)
== END 2017-09-11 11:33 | disposition home or self-care (01) | DRG 291 ==
LOC: M ED INP 23:22 → M PCU 09-10 02:03 → M ED 17:03
PROC: 30253N1 (ICD-10-PCS; principal; 2017-09-10)
DX: I50.33 Acute on chronic diastolic (congestive) heart failure (principal); E43 Unspecified severe protein-calorie malnutrition; I48.0 Paroxysmal atrial fibrillation; E03.9 Hypothyroidism, unspecified; K21.9 Gastro-esophageal reflux disease without esophagitis; I25.10 Atherosclerotic heart disease of native coronary artery without angina pectoris; D64.9 Anemia, unspecified; E55.9 Vitamin D deficiency, unspecified; Z86.718 Personal history of other venous thrombosis and embolism; I25.2 Old myocardial infarction; Z79.01 Long term (current) use of anticoagulants; Z79.899 Other long term (current) drug therapy; Z95.5 Presence of coronary angioplasty implant and graft; Z88.8 Allergy status to other drugs, medicaments and biological substances; Z90.49 Acquired absence of other specified parts of digestive tract; Z85.00 Personal history of malignant neoplasm of unspecified digestive organ; Z87.891 Personal history of nicotine dependence

== ENCOUNTER → 2017-10-19 | Outpatient (CLI) | payer MEDICARE, OTHER ==
[2017-10-19 13:26] LABS: HEMATOCRIT 33.2 % (36.0-47.0); HEMOGLOBIN 10.2 g/dl (12.0-15.5); MEAN CORPUSCULAR HEMOGLOBIN 30.8 pg (27.0-33.0); MEAN CORPUSCULAR HGB CONC 30.7 g/dl (32.0-36.5); MEAN CORPUSCULAR VOLUME 100.3 fl (80.0-96.0); PLATELET COUNT, AUTOMATED 247 10^3/uL (150-450); RED BLOOD COUNT 3.31 10^6/uL (4.00-5.40); RED CELL DISTRIBUTION WIDTH 13.2 % (11.5-14.5)
[2017-10-19 14:04] LABS: ALBUMIN 3.2 GM/DL (3.2-5.2); ALBUMIN/GLOBULIN RATIO 0.78 (1.00-1.93); ALKALINE PHOSPHATASE 157 U/L (45-117); ALT/SGPT 20 U/L (12-78); ANION GAP 10 MEQ/L (8-16); AST/SGOT 19 U/L (7-37); BILIRUBIN,TOTAL 0.3 MG/DL (0.2-1.0); BLOOD UREA NITROGEN 17 MG/DL (7-18); CALCIUM LEVEL 8.3 MG/DL (8.8-10.2); CARBON DIOXIDE LEVEL 25 MEQ/L (21-32); CHLORIDE LEVEL 109 MEQ/L (98-107); CREATININE FOR GFR 0.74 MG/DL (0.55-1.30); GLOMERULAR FILTRATION RATE > 60.0 (>39); GLUCOSE, FASTING 97 MG/DL (70-100); POTASSIUM SERUM 4.3 MEQ/L (3.5-5.1); SODIUM LEVEL 144 MEQ/L (136-145); TOTAL PROTEIN 7.3 GM/DL (6.4-8.2)
[2017-10-19 14:08] LABS: VITAMIN B12 LEVEL 205 PG/ML (247-911)
== END ==
LOC: M SMT 08:36
DX: K59.1 Functional diarrhea (principal); K86.81 Exocrine pancreatic insufficiency; R93.3 Abnormal findings on diagnostic imaging of other parts of digestive tract; K29.40 Chronic atrophic gastritis without bleeding; K44.9 Diaphragmatic hernia without obstruction or gangrene
CPT/HCPCS: 82607

== ENCOUNTER → 2017-10-24 | Outpatient (REF) | payer MEDICARE, OTHER | LOC: M LAB REF 17:07 | DX: R05 Cough (principal); J45.41 Moderate persistent asthma with (acute) exacerbation | CPT/HCPCS: 87205 ==

== ENCOUNTER → 2017-12-18 | Outpatient (CLI) | payer MEDICARE, OTHER ==
[2017-12-18 13:13] LABS: HEMATOCRIT 35.6 % (36.0-47.0); HEMOGLOBIN 11.1 g/dl (12.0-15.5); MEAN CORPUSCULAR HEMOGLOBIN 30.2 pg (27.0-33.0); MEAN CORPUSCULAR HGB CONC 31.2 g/dl (32.0-36.5); MEAN CORPUSCULAR VOLUME 96.7 fl (80.0-96.0); PLATELET COUNT, AUTOMATED 243 10^3/uL (150-450); RED BLOOD COUNT 3.68 10^6/uL (4.00-5.40); RED CELL DISTRIBUTION WIDTH 13.7 % (11.5-14.5); WHITE BLOOD COUNT 6.4 10^3/uL (4.0-10.0)
[2017-12-18 13:24] LABS: IRON (FE) 43 UG/DL (50-170); PERCENT SATURATION 18.5 % (13.2-45.0); TOTAL IRON BINDING CAPACITY 233 UG/DL (250-450)
[2017-12-18 13:54] LABS: FOLATE 12.2 NG/ML; TOTAL 25(OH) VITAMIN D 57.6 NG/ML (30.0-100.0)
[2017-12-18 14:31] LABS: VITAMIN B12 LEVEL 677 PG/ML
== END ==
LOC: M SMT 10:06
DX: R63.4 Abnormal weight loss (principal); K59.1 Functional diarrhea; K29.40 Chronic atrophic gastritis without bleeding; E53.8 Deficiency of other specified B group vitamins; Z79.899 Other long term (current) drug therapy
CPT/HCPCS: 82746

== ENCOUNTER → 2018-01-03 | Outpatient (CLI) | payer MEDICARE, OTHER ==
[2018-01-03 13:17] LABS: BASO % 0.5 % (0.0-1.0); EOS # 0.2 10^3/uL (0.0-0.50); EOS % 3.4 % (0.0-3.0); HEMOGLOBIN 10.7 g/dl (12.0-15.5); IMMATURE GRANULOCYTE % 0.3 % (0-3.0); LYMPH # 1.2 10^3/uL (1.5-4.5); LYMPH % 21.3 % (24.0-44.0); MEAN CORPUSCULAR HEMOGLOBIN 29.4 pg (27.0-33.0); MEAN CORPUSCULAR HGB CONC 31.5 g/dl (32.0-36.5); MEAN CORPUSCULAR VOLUME 93.4 fl (80.0-96.0); MONO # 0.4 10^3/uL (0.0-0.8); MONO % 7.4 % (0.0-5.0); NEUTROPHILS # 3.9 10^3/uL (1.8-7.7); NEUTROPHILS % 67.1 % (36.0-66.0); PLATELET COUNT, AUTOMATED 248 10^3/uL (150-450); RED BLOOD COUNT 3.64 10^6/uL (4.00-5.40); RED CELL DISTRIBUTION WIDTH 14.4 % (11.5-14.5); WHITE BLOOD COUNT 5.8 10^3/uL (4.0-10.0)
[2018-01-03 13:47] LABS: VITAMIN B12 LEVEL > 2000 PG/ML (247-911)
[2018-01-03 14:31] LABS: ALBUMIN 3.5 GM/DL (3.2-5.2); ALBUMIN/GLOBULIN RATIO 1.03 (1.00-1.93); ALKALINE PHOSPHATASE 121 U/L (45-117); ALT/SGPT 25 U/L (12-78); ANION GAP 8 MEQ/L (8-16); AST/SGOT 16 U/L (7-37); BILIRUBIN,TOTAL 0.3 MG/DL (0.2-1.0); BLOOD UREA NITROGEN 18 MG/DL (7-18); CALCIUM LEVEL 8.4 MG/DL (8.8-10.2); CARBON DIOXIDE LEVEL 26 MEQ/L (21-32); CHLORIDE LEVEL 110 MEQ/L (98-107); CREATININE FOR GFR 0.64 MG/DL (0.55-1.30); FREE T4 0.92 NG/DL (0.76-1.46); GLOMERULAR FILTRATION RATE > 60.0 (>39); GLUCOSE, FASTING 75 MG/DL (70-100); POTASSIUM SERUM 4.1 MEQ/L (3.5-5.1); SODIUM LEVEL 144 MEQ/L (136-145); TOTAL PROTEIN 6.9 GM/DL (6.4-8.2)
== END ==
LOC: M SMT 09:16
DX: I48.0 Paroxysmal atrial fibrillation (principal); E03.9 Hypothyroidism, unspecified; E53.9 Vitamin B deficiency, unspecified
CPT/HCPCS: 84443

== ENCOUNTER 2018-02-18 10:13 | Inpatient (IN) | payer MEDICARE, OTHER ==
[2018-02-18] MEDS: SPIRONOLACTONE 25 MG TAB PO ×2 (09:00→21:26)
[2018-02-18] MEDS: PANTOPRAZOLE 40MG TAB (PROTONIX) PO (09:00)
[2018-02-18] MEDS: IPRATROPIUM 0.5MG/ALBUTEROL 2.5MG INH SOL UD 3ML (DUONEB)(J7620) NEB ×3 (10:48→19:51)
[2018-02-18] MEDS: ALBUTEROL SULFATE 2.5 MG/0.5 ML INH NEB SOLN INH (10:48)
[2018-02-18 11:04] LABS: ABG BASE EXCESS -6.3 (-2.0-2.0); ABG HCO3 18.2 MEQ/L (22.0-26.0); ABG O2 SATURATION 94.1 % (95.0-99.0); ABG PARTIAL PRESSURE CO2 32.9 mmHg (35.0-45.0); ABG PARTIAL PRESSURE O2 78.3 mmHg (75.0-100.0); ABG STANDARD HCO3 19.2 MEQ/L (22.0-26.0); ABG TOTAL CO2 19.2 MEQ/L (23.0-31.0); ABG pH (ARTERIAL) 7.361 UNITS (7.350-7.450)
[2018-02-18 11:07] LABS: BASO # 0.1 10^3/uL (0.0-0.2); BASO % 0.8 % (0.0-1.0); EOS # 1.1 10^3/uL (0.0-0.50); EOS % 19.1 % (0.0-3.0); HEMATOCRIT 35.6 % (36.0-47.0); IMMATURE GRANULOCYTE % 0.2 % (0-3.0); LYMPH # 1.1 10^3/uL (1.5-4.5); LYMPH % 17.9 % (24.0-44.0); MEAN CORPUSCULAR HGB CONC 30.9 g/dl (32.0-36.5); MEAN CORPUSCULAR VOLUME 93.9 fl (80.0-96.0); MONO # 0.3 10^3/uL (0.0-0.8); MONO % 4.6 % (0.0-5.0); NEUTROPHILS # 3.4 10^3/uL (1.8-7.7); NEUTROPHILS % 57.4 % (36.0-66.0); PLATELET COUNT, AUTOMATED 238 10^3/uL (150-450); RED BLOOD COUNT 3.79 10^6/uL (4.00-5.40); RED CELL DISTRIBUTION WIDTH 14.2 % (11.5-14.5); WHITE BLOOD COUNT 5.9 10^3/uL (4.0-10.0)
[2018-02-18] MEDS: methylPREDNISolone INJ 125 MG/2 ML VIAL (J2930) IV ×2 (11:08→17:48)
[2018-02-18 11:19] LABS: INR 1.26
[2018-02-18 11:24] LABS: INFLUENZA A AMPLIFICATION NEGATIVE (NEGATIVE); INFLUENZA B AMPLIFICATION NEGATIVE (NEGATIVE)
[2018-02-18 11:32] LABS: LACTIC ACID SEPSIS PROTOCOL 2.6 MMOL/L (0.4-2.0)
[2018-02-18 11:37] LABS: ALBUMIN 3.4 GM/DL (3.2-5.2); ALBUMIN/GLOBULIN RATIO 0.94 (1.00-1.93); ALKALINE PHOSPHATASE 132 U/L (45-117); ALT/SGPT 20 U/L (12-78); ANION GAP 9 MEQ/L (8-16); AST/SGOT 16 U/L (7-37); BILIRUBIN,DIRECT 0.1 MG/DL (0.0-0.2); BILIRUBIN,TOTAL 0.3 MG/DL (0.2-1.0); BLOOD UREA NITROGEN 14 MG/DL (7-18); CALCIUM LEVEL 8.4 MG/DL (8.8-10.2); CARBON DIOXIDE LEVEL 23 MEQ/L (21-32); CHLORIDE LEVEL 114 MEQ/L (98-107); CPK CREATINE PHOSPHOKINASE 91 U/L (26-192); CREATININE FOR GFR 0.77 MG/DL (0.55-1.30); GLOMERULAR FILTRATION RATE > 60.0 (>39); GLUCOSE, FASTING 113 MG/DL (70-100); MB/CK RELATIVE INDEX 2.97 (< OR =4); NT-PRO BNP 931 PG/ML (<450); POTASSIUM SERUM 3.7 MEQ/L (3.5-5.1); SODIUM LEVEL 146 MEQ/L (136-145); THYROXINE (T4) 6.3 UG/DL (4.5-12.0); TROPONIN I < 0.02 NG/ML (< 0.10)
[2018-02-18] MEDS ORDERED: ISOVUE-370 76% 100ML VIAL (Q9967) As Ordered (11:45)
[2018-02-18] MEDS: cefTRIAXone SOD 1 GM in D5W MINI-BAG PLUS 50 ML IV (12:03)
[2018-02-18] MEDS: AZITHROMYCIN INJ 500 MG, VIAL MATE ADAPTER 1 EACH in D5W 250 ML IV (12:34)
[2018-02-18] MEDS ORDERED: ACETAMINOPHEN TAB 650MG DOSE (2X325MG) PO (13:30)
[2018-02-18] MEDS ORDERED: BISACODYL 10 MG SUPP PR (13:30)
[2018-02-18] MEDS ORDERED: IPRATROPIUM 0.5MG/ALBUTEROL 2.5MG INH SOL UD 3ML (DUONEB)(J7620) NEB (13:30)
[2018-02-18 14:47] LABS: CPK CREATINE PHOSPHOKINASE 77 U/L (26-192); MB/CK RELATIVE INDEX 3.12 (< OR =4); TROPONIN I < 0.02 NG/ML (< 0.10)
[2018-02-18] MEDS: NS 1,000 ML IV (17:48)
[2018-02-18] MEDS: FUROSEMIDE 20 MG TAB PO (17:49)
[2018-02-18] MEDS ORDERED: CREON-24 CAPSULE PO (18:00)
[2018-02-18] MEDS: RIVAROXABAN 15 MG TAB (XARELTO) PO (21:26)
[2018-02-18] MEDS: valACYclovir HCL 500 MG TAB PO (21:26)
[2018-02-18 22:00] LABS: CPK CREATINE PHOSPHOKINASE 68 U/L (26-192); MB/CK RELATIVE INDEX 3.09 (< OR =4); TROPONIN I < 0.02 NG/ML (< 0.10)
[2018-02-18 22:10] LABS: LACTIC ACID SEPSIS PROTOCOL 2.6 MMOL/L (0.4-2.0)
[2018-02-18] MEDS ORDERED: ZENPEP PO (22:30)
[2018-02-18] MEDS: ZENPEP PO (22:44)
[2018-02-19] MEDS ORDERED: UNRESOLVED CLARIFICATION ENTRY XX (00:01)
[2018-02-19] MEDS: methylPREDNISolone INJ 125 MG/2 ML VIAL (J2930) IV ×3 (02:27→23:25)
[2018-02-19] MEDS: NS 1,000 ML IV ×2 (02:31→12:36)
[2018-02-19] MEDS: LEVOTHYROXINE 62.5MCG PER 1/2 TAB (0.0625MG) PO (05:53)
[2018-02-19 06:27] LABS: HEMATOCRIT 32.1 % (36.0-47.0); HEMOGLOBIN 10.1 g/dl (12.0-15.5); MEAN CORPUSCULAR HGB CONC 31.5 g/dl (32.0-36.5); MEAN CORPUSCULAR VOLUME 92.2 fl (80.0-96.0); PLATELET COUNT, AUTOMATED 224 10^3/uL (150-450); RED BLOOD COUNT 3.48 10^6/uL (4.00-5.40); WHITE BLOOD COUNT 6.2 10^3/uL (4.0-10.0)
[2018-02-19 06:59] LABS: ANION GAP 8 MEQ/L (8-16); BLOOD UREA NITROGEN 20 MG/DL (7-18); CALCIUM LEVEL 8.1 MG/DL (8.8-10.2); CARBON DIOXIDE LEVEL 23 MEQ/L (21-32); CHLORIDE LEVEL 112 MEQ/L (98-107); CPK CREATINE PHOSPHOKINASE 52 U/L (26-192); CREATININE FOR GFR 0.78 MG/DL (0.55-1.30); GLOMERULAR FILTRATION RATE > 60.0 (>39); GLUCOSE, FASTING 141 MG/DL (70-100); MB/CK RELATIVE INDEX 3.46 (< OR =4); POTASSIUM SERUM 4.3 MEQ/L (3.5-5.1); SODIUM LEVEL 143 MEQ/L (136-145); TROPONIN I < 0.02 NG/ML (< 0.10)
[2018-02-19] MEDS: IPRATROPIUM 0.5MG/ALBUTEROL 2.5MG INH SOL UD 3ML (DUONEB)(J7620) NEB ×4 (07:22→19:28)
[2018-02-19] MEDS: FUROSEMIDE 20 MG TAB PO (07:31)
[2018-02-19] MEDS: PANTOPRAZOLE 40MG TAB (PROTONIX) PO (07:31)
[2018-02-19] MEDS: valACYclovir HCL 500 MG TAB PO ×2 (07:31→21:29)
[2018-02-19] MEDS: SPIRONOLACTONE 25 MG TAB PO ×2 (07:31→21:29)
[2018-02-19] MEDS: ZENPEP PO ×4 (07:32→21:29)
[2018-02-19] MEDS: cefTRIAXone SOD 1 GM in D5W MINI-BAG PLUS 50 ML IV (12:36)
[2018-02-19] MEDS: AZITHROMYCIN INJ 500 MG, VIAL MATE ADAPTER 1 EACH in D5W 250 ML IV (13:30)
[2018-02-19] MEDS: ONDANSETRON 4MG/2ML VIAL (J2405) IV (21:30)
[2018-02-19] MEDS: RIVAROXABAN 15 MG TAB (XARELTO) PO (21:30)
[2018-02-20] MEDS: LEVOTHYROXINE 62.5MCG PER 1/2 TAB (0.0625MG) PO (05:36)
[2018-02-20] MEDS: IPRATROPIUM 0.5MG/ALBUTEROL 2.5MG INH SOL UD 3ML (DUONEB)(J7620) NEB ×2 (07:38→12:18)
[2018-02-20] MEDS: PANTOPRAZOLE 40MG TAB (PROTONIX) PO (08:41)
[2018-02-20] MEDS: FUROSEMIDE 20 MG TAB PO (08:41)
[2018-02-20] MEDS: valACYclovir HCL 500 MG TAB PO (08:41)
[2018-02-20] MEDS: SPIRONOLACTONE 25 MG TAB PO (08:42)
[2018-02-20] MEDS: ZENPEP PO (08:42)
[2018-02-20] MEDS ORDERED: methylPREDNISolone INJ 40 MG/1 ML VIAL (J2920) IV (11:00)
== END 2018-02-20 13:42 | disposition home or self-care (01) | DRG 191 ==
LOC: M ED 10:13 → M ED INP 13:27 → M MSPAV 17:34
DX: J44.1 Chronic obstructive pulmonary disease with (acute) exacerbation (principal); I50.32 Chronic diastolic (congestive) heart failure; E87.2 Acidosis; I48.0 Paroxysmal atrial fibrillation; I25.10 Atherosclerotic heart disease of native coronary artery without angina pectoris; E03.9 Hypothyroidism, unspecified; K21.9 Gastro-esophageal reflux disease without esophagitis; Z95.5 Presence of coronary angioplasty implant and graft; Z86.718 Personal history of other venous thrombosis and embolism; Z90.49 Acquired absence of other specified parts of digestive tract; Z85.00 Personal history of malignant neoplasm of unspecified digestive organ; Z87.891 Personal history of nicotine dependence; S00.521A Blister (nonthermal) of lip, initial encounter; X58.XXXA Exposure to other specified factors, initial encounter; Y92.9 Unspecified place or not applicable; Z79.01 Long term (current) use of anticoagulants; Z79.899 Other long term (current) drug therapy; Z88.8 Allergy status to other drugs, medicaments and biological substances

== ENCOUNTER → 2018-03-27 | Outpatient (CLI) | payer MEDICARE, OTHER ==
[2018-03-27 17:25] LABS: BASO # 0.1 10^3/uL (0.0-0.2); BASO % 1.2 % (0.0-1.0); EOS # 0.6 10^3/uL (0.0-0.50); EOS % 10.8 % (0.0-3.0); HEMATOCRIT 36.5 % (36.0-47.0); HEMOGLOBIN 11.4 g/dl (12.0-15.5); IMMATURE GRANULOCYTE % 0.2 % (0-3.0); LYMPH # 1.2 10^3/uL (1.5-4.5); LYMPH % 23.9 % (24.0-44.0); MEAN CORPUSCULAR HEMOGLOBIN 28.9 pg (27.0-33.0); MEAN CORPUSCULAR HGB CONC 31.2 g/dl (32.0-36.5); MEAN CORPUSCULAR VOLUME 92.6 fl (80.0-96.0); MONO # 0.3 10^3/uL (0.0-0.8); MONO % 6.3 % (0.0-5.0); NEUTROPHILS % 57.6 % (36.0-66.0); PLATELET COUNT, AUTOMATED 234 10^3/uL (150-450); RED BLOOD COUNT 3.94 10^6/uL (4.00-5.40); RED CELL DISTRIBUTION WIDTH 14.1 % (11.5-14.5); WHITE BLOOD COUNT 5.1 10^3/uL (4.0-10.0)
[2018-03-27 17:53] LABS: ALBUMIN 3.1 GM/DL (3.2-5.2); ALBUMIN/GLOBULIN RATIO 0.86 (1.00-1.93); ALKALINE PHOSPHATASE 132 U/L (45-117); ALT/SGPT 18 U/L (12-78); ANION GAP 7 MEQ/L (8-16); AST/SGOT 14 U/L (7-37); BILIRUBIN,TOTAL 0.2 MG/DL (0.2-1.0); BLOOD UREA NITROGEN 16 MG/DL (7-18); CALCIUM LEVEL 8.1 MG/DL (8.8-10.2); CARBON DIOXIDE LEVEL 27 MEQ/L (21-32); CHLORIDE LEVEL 110 MEQ/L (98-107); CREATININE FOR GFR 0.74 MG/DL (0.55-1.30); FREE T4 0.91 NG/DL (0.76-1.46); GLOMERULAR FILTRATION RATE > 60.0 (>39); GLUCOSE, FASTING 105 MG/DL (70-100); POTASSIUM SERUM 3.5 MEQ/L (3.5-5.1); SODIUM LEVEL 144 MEQ/L (136-145); TOTAL PROTEIN 6.7 GM/DL (6.4-8.2)
[2018-03-27 17:58] LABS: VITAMIN B12 LEVEL 1086 PG/ML (247-911)
== END ==
LOC: M SMT 12:32
DX: E53.9 Vitamin B deficiency, unspecified (principal); I50.22 Chronic systolic (congestive) heart failure; E03.9 Hypothyroidism, unspecified
CPT/HCPCS: 84443

== ENCOUNTER 2018-06-24 11:24 | Emergency (ER) | payer MEDICARE, OTHER ==
[~2018-06-24] VITALS: Ht 144.8 cm; Wt 47.7 kg
[~2018-06-24 11:24] MED LIST changes: +AZIT-12 PO; +CYAN1000VL IM; +FOLI1TAB11 PO; -FOLI1TAB4 PO; +IPRA0.00 INH; +IPRA0.00 NEB; -IPRASOL4 INH; -IPRASOL4 NEB; +KEFL500C17 PO; -LASI20TA PO; +LASI20TA3 PO; -LASI40TA PO; +LASI40TA9 PO; +PANC10CAEC; -PANT40TA2 PO; +PANT40TA3 PO; +PRED10TA2 PO; +SPIR-10 PO; -SPIR25TA2 PO; -SPIR50TA2 PO; +SPIR50TA4 PO; +VENTAER INH; -VITA1CAP40 PO; +VITA50005 PO; -ZOFR20TA PO; +ZOFR4TAB16 PO
[2018-06-24 11:25] VITALS: BP 170/77
--- NOTE | 2018-06-24 13:09 | REP ---
AP pelvis: Comparison is the left hip study dated 07/04/2016. There is demineralization. There is a total right hip arthroplasty. There are three hip and the stabilizing the femoral neck fracture identified on the comparison study. There is joint space narrowing superiorly with cortical eburnation compatible with osteoarthritis as an interval change. Impression: There are three hip pins stabilizing a left hip fracture. There is osteoarthritis of the left hip as an interval change. Left hip two views: Comparison is the left hip study of 07/04/2016. There are three hip pins stabilizing the femoral neck fracture identified on the comparison study. The fracture is maintained in satisfactory position alignment. There is osteoarthritis of the left hip as an interval change. There is no acute fracture or dislocation. Impression: There is left hip osteoarthritis as an interval change. There are three pins stabilizing the previously identified nondisplaced fracture. Electronically Signed by Neto Soto MD 06/24/2018 01:00 P
== END 2018-06-24 13:23 | disposition home or self-care (01) ==
LOC: M ED 11:24
DX: M16.12 Unilateral primary osteoarthritis, left hip (principal); J45.909 Unspecified asthma, uncomplicated; I50.9 Heart failure, unspecified; I25.2 Old myocardial infarction; K21.9 Gastro-esophageal reflux disease without esophagitis; M81.0 Age-related osteoporosis without current pathological fracture; Z78.0 Asymptomatic menopausal state; Z79.899 Other long term (current) drug therapy; Z79.01 Long term (current) use of anticoagulants; Z86.718 Personal history of other venous thrombosis and embolism; Z86.73 Personal history of transient ischemic attack (TIA), and cerebral infarction without residual deficits; Z87.19 Personal history of other diseases of the digestive system; Z95.5 Presence of coronary angioplasty implant and graft; Z88.8 Allergy status to other drugs, medicaments and biological substances

== ENCOUNTER → 2018-06-27 | Outpatient (REF) | payer MEDICARE, OTHER ==
[2018-06-27 16:03] LABS: BASO # 0.1 10^3/uL (0.0-0.2); EOS # 0.7 10^3/uL (0.0-0.50); HEMATOCRIT 36.8 % (36.0-47.0); HEMOGLOBIN 11.9 g/dl (12.0-15.5); LYMPH # 1.1 10^3/uL (1.5-4.5); LYMPH % 22.9 % (24.0-44.0); MEAN CORPUSCULAR HGB CONC 32.3 g/dl (32.0-36.5); MEAN CORPUSCULAR VOLUME 89.8 fl (80.0-96.0); MONO # 0.3 10^3/uL (0.0-0.8); MONO % 6.9 % (0.0-5.0); NEUTROPHILS # 2.7 10^3/uL (1.8-7.7); NEUTROPHILS % 55.2 % (36.0-66.0); PLATELET COUNT, AUTOMATED 237 10^3/uL (150-450); WHITE BLOOD COUNT 4.8 10^3/uL (4.0-10.0)
[2018-06-27 16:12] LABS: BLOOD UREA NITROGEN 16 MG/DL (7-18); CALCIUM LEVEL 8.4 MG/DL (8.8-10.2); CARBON DIOXIDE LEVEL 23 MEQ/L (21-32); CHLORIDE LEVEL 114 MEQ/L (98-107); CREATININE FOR GFR 0.58 MG/DL (0.55-1.30); FREE T4 1.22 NG/DL (0.76-1.46); GLOMERULAR FILTRATION RATE > 60.0 (>39); GLUCOSE, FASTING 98 MG/DL (70-100); SODIUM LEVEL 144 MEQ/L (136-145); THYROID STIMULATING HORMONE 0.575 uIU/ML (0.358-3.740)
== END ==
LOC: M LABDRAW1 15:42
PROVIDERS: ATTEND Physician Assistant
DX: I50.22 Chronic systolic (congestive) heart failure (principal); R60.0 Localized edema

== ENCOUNTER 2018-07-23 09:59 | Emergency (ER) | payer MEDICARE, OTHER ==
[~2018-07-23] VITALS: Ht 144.8 cm; Wt 48.6 kg
[~2018-07-23 09:59] MED LIST changes: -/MOXI40TA OR; +ASPI-1 PO; -ASPI1TAB PO; -ASPI325T PO; +ASPI81TA26 PO; +AVEL1TAB2 OR; +NYST-15 TOP; -NYST10PW TOP; -SENN1TAB2 PO; +SENN1TAB40 PO; +VITA500T17 PO; -VITA500T53 PO
[2018-07-23] MEDS ORDERED: LEVO75TA4 (10:08)
[2018-07-23 10:40] LABS: BASO % 0.8 % (0.0-1.0); EOS # 0.4 10^3/uL (0.0-0.50); EOS % 7.7 % (0.0-3.0); HEMATOCRIT 34.4 % (36.0-47.0); HEMOGLOBIN 10.9 g/dl (12.0-15.5); LYMPH % 21.5 % (24.0-44.0); MEAN CORPUSCULAR HEMOGLOBIN 29.4 pg (27.0-33.0); MEAN CORPUSCULAR HGB CONC 31.7 g/dl (32.0-36.5); MEAN CORPUSCULAR VOLUME 92.7 fl (80.0-96.0); MONO # 0.3 10^3/uL (0.0-0.8); MONO % 6.7 % (0.0-5.0); NEUTROPHILS % 63.1 % (36.0-66.0); PLATELET COUNT, AUTOMATED 194 10^3/uL (150-450); RED BLOOD COUNT 3.71 10^6/uL (4.00-5.40); WHITE BLOOD COUNT 4.8 10^3/uL (4.0-10.0)
[2018-07-23 10:56] LABS: ALBUMIN 3.1 GM/DL (3.2-5.2); ALT/SGPT 16 U/L (12-78); BILIRUBIN,DIRECT 0.1 MG/DL (0.0-0.2); BILIRUBIN,TOTAL 0.4 MG/DL (0.2-1.0); BLOOD UREA NITROGEN 18 MG/DL (7-18); CALCIUM LEVEL 8.2 MG/DL (8.8-10.2); CARBON DIOXIDE LEVEL 24 MEQ/L (21-32); CHLORIDE LEVEL 112 MEQ/L (98-107); CPK CREATINE PHOSPHOKINASE 51 U/L (26-192); CREATININE FOR GFR 0.61 MG/DL (0.55-1.30); GLOMERULAR FILTRATION RATE > 60.0 (>39); GLUCOSE, FASTING 114 MG/DL (70-100); MB/CK RELATIVE INDEX 4.12 (< OR =4); POTASSIUM SERUM 3.8 MEQ/L (3.5-5.1); SODIUM LEVEL 143 MEQ/L (136-145); TOTAL PROTEIN 6.7 GM/DL (6.4-8.2); TROPONIN I < 0.02 NG/ML (< 0.10)
[2018-07-23 13:52] LABS: CPK CREATINE PHOSPHOKINASE 48 U/L (26-192); MB/CK RELATIVE INDEX 4.17 (< OR =4); TROPONIN I < 0.02 NG/ML (< 0.10)
[2018-07-23 14:19] VITALS: BP 162/75
--- NOTE | 2018-07-23 21:12 | ECGEPIP ---
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
--- NOTE | 2018-07-23 21:15 | ECGEPIP ---
Stationary ECG Study [facility] - ED Test Date: 2018-07-23 Pat Name: SUE URENA Department: Room: - Gender: F [employer] Operator: : 1940 Requested By: Americo Smith Order Number: [id number] Reading MD: Olivia Park Measurements Intervals [place] Rate: 80 P: 54 AK: 178 QRS: -2 QRSD: 88 T: -13 QT: 389 QTc: 449 Interpretive Statements SINUS RHYTHM NONSPECIFIC T-WAVE ABNORMALITY SIMILAR 07/23/18 Electronically Signed On 07-23-2018 21:15:06 EDT by Olivia Park
== END 2018-07-23 15:14 | disposition home or self-care (01) ==
LOC: M ED 09:59
DX: R53.1 Weakness (principal); R11.10 Vomiting, unspecified; M25.551 Pain in right hip; G89.29 Other chronic pain; T40.4X5A Adverse effect of other synthetic narcotics, initial encounter; I11.0 Hypertensive heart disease with heart failure; I50.9 Heart failure, unspecified; I48.91 Unspecified atrial fibrillation; I25.10 Atherosclerotic heart disease of native coronary artery without angina pectoris; J44.9 Chronic obstructive pulmonary disease, unspecified; K21.9 Gastro-esophageal reflux disease without esophagitis; E07.9 Disorder of thyroid, unspecified; Z95.5 Presence of coronary angioplasty implant and graft; Z88.8 Allergy status to other drugs, medicaments and biological substances; Z79.899 Other long term (current) drug therapy; Z79.01 Long term (current) use of anticoagulants

== ENCOUNTER → 2018-08-08 | Outpatient (CLI) | payer MEDICARE, OTHER ==
[~2018-08-08] MED LIST changes: +CLOB0.0548 TOP; +LISI-542 PO
[2018-08-08 11:00] LABS: HEMATOCRIT 34.4 % (36.0-47.0); MEAN CORPUSCULAR HEMOGLOBIN 29.3 pg (27.0-33.0); MEAN CORPUSCULAR VOLUME 91.5 fl (80.0-96.0); PLATELET COUNT, AUTOMATED 221 10^3/uL (150-450); RED BLOOD COUNT 3.76 10^6/uL (4.00-5.40); WHITE BLOOD COUNT 3.7 10^3/uL (4.0-10.0)
[2018-08-08 11:09] LABS: INR 1.44; PROTHROMBIN TIME 17.7 SECONDS (12.1-14.4)
[2018-08-08 11:32] LABS: ALBUMIN 3.3 GM/DL (3.2-5.2); ALT/SGPT 19 U/L (12-78); BILIRUBIN,TOTAL 0.2 MG/DL (0.2-1.0); BLOOD UREA NITROGEN 13 MG/DL (7-18); CALCIUM LEVEL 8.2 MG/DL (8.8-10.2); CARBON DIOXIDE LEVEL 25 MEQ/L (21-32); CHLORIDE LEVEL 111 MEQ/L (98-107); CREATININE FOR GFR 0.63 MG/DL (0.55-1.30); GLOMERULAR FILTRATION RATE > 60.0 (>39); GLUCOSE, FASTING 99 MG/DL (70-100); POTASSIUM SERUM 3.8 MEQ/L (3.5-5.1); SODIUM LEVEL 142 MEQ/L (136-145); TOTAL PROTEIN 6.3 GM/DL (6.4-8.2)
[2018-08-08 11:34] LABS: ERYTHROCYTE SEDIMENTATION RATE 17 mm/hr (0-30)
--- NOTE | 2018-08-08 12:49 | REP ---
CHEST TWO VIEWS: Two views of the chest performed and compared to a prior study of 06/18/2017. Chronic pleural and parenchymal scarring is stable in each lung base. There is no acute infiltrate. The heart is not enlarged. There is calcification of the thoracic aorta. The mediastinal silhouette is unchanged. There is osteopenia and diffuse degenerative change of the spine. There are several compression deformities of mid and lower thoracic vertebral bodies, which appear stable. IMPRESSION: Stable chronic changes without evidence of acute infiltrate. Electronically Signed by Neto Larson MD 08/08/2018 03:22 P
--- NOTE | 2018-08-09 20:30 | ECGEPIP ---
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 No change from 07/23/18. Electronically Signed On 08-09-2018 20:30:51 EDT by Ryan Darnell
== END ==
LOC: M LAB 09:31
PROVIDERS: ATTEND Orthopaedic Surgery
DX: Z01.818 Encounter for other preprocedural examination (principal); M16.12 Unilateral primary osteoarthritis, left hip

== ENCOUNTER 2018-08-27 11:00 | Inpatient (IN) | payer MEDICARE, OTHER ==
--- NOTE | 2018-08-21 15:12 | HPE ---
DATE OF PLANNED ADMISSION: 08/27/2018 HISTORY OF PRESENT ILLNESS: This is a pleasant 78-year-old female with a history of left hip open reduction, internal fixation. The patient now reports recurrent discomfort secondary to hip osteoarthritis. She consented for a left total hip arthroplasty per Dr. Mauri Alanis. Medical optimization per [facility], out of [facility] and Johan Sánchez, [facility], [facility] with Dr. Acosta. ALLERGIES: ATORVASTATIN and ROSUVASTATIN. MEDICATION LIST: Includes: - vitamin D 50,000 units, take one capsule by mouth once weekly - levothyroxine sodium 75 mcg one by mouth every morning - furosemide 40 mg two tablets by mouth every day - Drisdol 50,000 units, take one capsule by mouth once weekly - tramadol HCl 50 mg one tablet by mouth twice daily as needed - Zofran ODT 4 mg, take one by mouth every 4 hours as needed for nausea - spironolactone 25 mg, take 1-2 tablets by mouth every day - pantoprazole sodium 40 mg one by mouth every day - Ventolin HFA 108 (90 base) mcg/ACT two puffs every 4 hours shortness breath or wheezing - Zenpep 10,000 units one tablet by mouth three times a day with meals - Xarelto 20 mg, take one tablet by mouth every day - cyanocobalamin 1000 mcg/mL, inject 1 mL once a month - clobetasol propionate 0.05% apply thin layer topically to affected areas twice a day as needed for flare-ups MEDICAL PROBLEM LIST: Includes: 1. Symptomatic left hip osteoarthritis with history of prior healed fracture open reduction, internal fixation. 2. Disorder of protein metabolism. 3. Hypothyroidism. 4. Paroxysmal atrial fibrillation. 5. Nausea. 6. Lymphedema. 7. Anemia of chronic renal failure. 8. Low back pain. 9. Uncomplicated moderate persistent asthma. 10. Edema. 11. Vitamin D deficiency. 12. Severe protein-calorie malnutrition. 13. Diarrhea. 14. Ulcer of lower extremity. 15. Stomach cancer. 16. Cervical cancer. 17. Atrial fibrillation. 18. Hypothyroidism. 19. Gastroesophageal reflux disease. 20. Heart failure. 21. Asthma. 22. History of left ankle fracture. SURGICAL HISTORY: 1. Right hip replacement. 2. Left hip open reduction, internal fixation. 3. Coronary artery stenting. 4. Total hysterectomy. FAMILY HISTORY: Father methicillin-resistant Staphylococcus aureus (MRSA). Mother anxiety secondary to chronic obstructive pulmonary disease (COPD). Son secondary to skin cancer. There is a family history of breast cancer. SOCIAL HISTORY: She is , retired, former smoker, quit in 1969. Denies ethanol intake or illicit drugs. REVIEW OF SYSTEMS: Denies chest pain, shortness of breath, dyspnea on exertion, fever, chills, malaise, upper respiratory or urinary tract symptoms. PHYSICAL EXAMINATION: Vitals: Height 57 inches, weight 110 pounds 2 ounces, body mass index (BMI) 23.8. She is a pleasant, well-developed 78-year-old female in no acute distress, alert and orientated times three. Mood and affect are appropriate. Left hip range of motion is limited and irritable through internal and external range of motion. Otherwise, a benign, noninfectious looking left lower extremity. Normocephalic. Chest rises symmetrically. Lungs clear to auscultation. Chest: Regular rate and rhythm. Bowel sounds times four. Soft, nontender. Medical clearances were reviewed per primary care and cardiology, as noted above. EKG result per Dr. Darnell showed sinus rhythm, electronically signed by him on 08/09/2018. Chest x-ray per [facility]: Stable chronic changes without evidence of acute infiltrate, as read by Dr. Larson. LABS: PTT 17.7. GFR was greater than 60. Chloride level 111, anion gap 6, calcium level 8.2, total protein 6.3. White count 3.7, RBC 3.76, hemoglobin 11.0, hematocrit 34.4, red cell distribution width 14.6. Otherwise, remaining labs are unremarkable. IMPRESSION: 1. Left hip symptomatic osteoarthritis with history of a healed hip fracture percutaneous pinning. 2. Patient consented for left hip percutaneous screw removal and a left total hip arthroplasty per Dr. Mauri Alanis. 3. Medical optimization per Dr. Acosta and [facility]. 4. train caller to operating room (OR), 1 gram IV Kefzol in OR. 5. Sequential compression device (SCD) and thromboembolism deterrents (TEDs) in OR. ADDENDUM: Her remaining vital signs included blood pressure 145/75, pulse 75, respiration 12. Patient made it known she had a prior history of preoperative spinal anesthesia and since that time has had some residual lower extremity numbness and tingling. She is not interested in a spinal and would like to pursue general anesthesia. Additionally, with meals, she always takes a dose of medication called Zenpep, which has proved crucial. She wanted to make it known that she would like to take this medication as soon as she can postoperatively with food by mouth. Addendum dictated: ID 08/21/2018 [id number] Addendum transcribed: [email or web address] 08/21/2018 [id number] VINEET
[2018-08-27] VITALS (7 sets, daily range): BP systolic 104–184; BP diastolic 52–84
[~2018-08-27] VITALS: Ht 144.8 cm; Wt 51.4 kg
[~2018-08-27 11:00] MED LIST changes: +LIDOCAINE 1% MDV 20ML VIAL SQ PRN; +LR 1,000 ML IV ONE
[2018-08-27] MEDS ORDERED: EPINEPHrine INJ 1 MG/ML 1ML AMP As Ordered ONE (14:12)
--- NOTE | 2018-08-27 14:40 | IPN ---
DATE: 08/27/2018 The patient is seen and examined. She wished to go ahead with a total hip arthroplasty on the left and a removal of the hardware. She understands the nature this, the risks of bleeding, infection, damage to nerves, vessels, persistent pain, wear loosening, dislocation, leg length inequality, blood clots, medical problems, among others. Preop clearance was obtained.
[2018-08-27] MEDS ORDERED: ceFAZolin 1GM INJ (J0690 PER 500MG) As Ordered ONE (14:41)
[2018-08-27] MEDS ORDERED: TRANEXAMIC ACID 100 MG/ML 10ML VIAL As Ordered ONE (14:41)
[2018-08-27] MEDS ORDERED: ROCURONIUM BROMIDE 50 MG/5 ML VIAL As Ordered ONE (14:54)
[2018-08-27] MEDS ORDERED: fentaNYL 250 MCG/5 ML INJECTION (J3010) As Ordered ONE (14:54)
[2018-08-27] MEDS ORDERED: ETOMIDATE INJ 20MG/10ML VIAL As Ordered ONE (14:54)
[2018-08-27] MEDS ORDERED: MIDAZOLAM INJ 2 MG/2 ML VIAL (J2250) As Ordered ONE (14:54)
[2018-08-27] MEDS ORDERED: PHENYLephrine HCL 500 MCG/5 ML (100MCG/ML) SYRINGE (J2370) As Ordered ONE (14:54)
[2018-08-27] MEDS ORDERED: fentaNYL 100 MCG/2 ML INJECTION (J3010) As Ordered ONE ×2 (14:54→16:54)
[2018-08-27] MEDS ORDERED: ONDANSETRON 4MG/2ML VIAL (J2405) As Ordered ONE (14:54)
[2018-08-27] MEDS ORDERED: dexameTHASONE 4 MG/ML 1ML VIAL (J1100) As Ordered ONE (14:54)
[2018-08-27] MEDS ORDERED: PROPOFOL 200 MG/20 ML VIAL As Ordered ONE (14:54)
--- NOTE | 2018-08-27 15:06 | IPN ---
DATE: 08/27/2018 Patient seen and examined. She wished to go ahead with a left total hip arthroplasty and hardware removal. She has arthritic hip with three cannulated screws in place. She understands the nature of the procedure, the risks of bleeding, infection, damage to nerves, vessels, persistent pain, wear loosening, dislocation, leg length inequality, blood clots, medical problems, , among others.
[2018-08-27] MEDS ORDERED: SUGAMMADEX SODIUM 500 MG/5 ML VIAL (BRIDION) As Ordered ONE (15:27)
[2018-08-27] MEDS ORDERED: ESMOLOL INJ 100MG/10ML VIAL As Ordered ONE (16:09)
[2018-08-27] MEDS ORDERED: METOCLOPRAMIDE INJ 10MG/2ML VIAL (J2765) IV PRN (16:45)
[2018-08-27] MEDS ORDERED: LR 1,000 ML IV SCH ×2 (16:45→17:00)
[2018-08-27] MEDS ORDERED: ONDANSETRON 4MG/2ML VIAL (J2405) IV PRN ×3 (16:45→19:00)
[2018-08-27] MEDS ORDERED: PERCOCET 5MG/325MG TAB PO PRN (16:45)
[2018-08-27] MEDS ORDERED: LABETALOL HCL 100 MG/20 ML VIAL As Ordered ONE (16:54)
[2018-08-27] MEDS ORDERED: FLEET ENEMA PR PRN (17:00)
[2018-08-27] MEDS: fentaNYL 100 MCG/2 ML INJECTION (J3010) IV PRN ×2 (17:00→17:06)
[2018-08-27] MEDS ORDERED: MORPHINE 4 MG/ML 1ML VIAL/SYRINGE (J2270) IV PRN ×2 (17:00)
[2018-08-27] MEDS: LABETALOL HCL 100 MG/20 ML VIAL IV SCH ×2 (17:00→17:07)
[2018-08-27] MEDS ORDERED: ACETAMINOPHEN TAB 650MG DOSE (2X325MG) PO PRN (17:00)
--- NOTE | 2018-08-27 17:10 | REP ---
AP lateral left hip two views History: Postop The patient is status post left total hip replacement. There is no acute fracture or dislocation. Subcutaneous air and surgical doris are present in the overlying soft tissue. The bony structures are osteopenic. Impression: The patient is status post left total hip replacement. There is anatomic alignment. Electronically Signed by Johan Hodge MD 08/27/2018 05:00 P
[2018-08-27] MEDS ORDERED: ALBUTEROL SULFATE 2.5 MG/0.5 ML INH NEB SOLN INH PRN (17:15)
[2018-08-27 17:38] LABS: BASO % 0.6 % (0.0-1.0); EOS # 0.1 10^3/uL (0.0-0.50); EOS % 1.9 % (0.0-3.0); HEMATOCRIT 30.1 % (36.0-47.0); HEMOGLOBIN 9.5 g/dl (12.0-15.5); LYMPH # 0.5 10^3/uL (1.5-4.5); LYMPH % 7.4 % (24.0-44.0); MEAN CORPUSCULAR HEMOGLOBIN 29.4 pg (27.0-33.0); MEAN CORPUSCULAR HGB CONC 31.6 g/dl (32.0-36.5); MEAN CORPUSCULAR VOLUME 93.2 fl (80.0-96.0); MONO # 0.1 10^3/uL (0.0-0.8); MONO % 1.4 % (0.0-5.0); NEUTROPHILS # 5.6 10^3/uL (1.8-7.7); NEUTROPHILS % 88.2 % (36.0-66.0); PLATELET COUNT, AUTOMATED 166 10^3/uL (150-450); RED BLOOD COUNT 3.23 10^6/uL (4.00-5.40); WHITE BLOOD COUNT 6.4 10^3/uL (4.0-10.0)
--- NOTE | 2018-08-27 17:47 | CR.PDOC ---
General Date of Consultation: Aug 27, 2018 Consultation REASON FOR CONSULTATION/CHIEF COMPLAINT: Presented to [facility] for an elective orthopedic procedure Hospice service was consultation for medical management HISTORY OF PRESENT ILLNESS: Patient is a 78-year-old female with a PMHx of CAD s/p Stent, Paroxysmal A. fib (on Xarelto), Asthma, Hypothyroidism, Lymphedema, Anemia, Chronic back pain, Osteoarthritis, Hx of Stomach CA (s/p Surgery / Radiation / Chemotherapy), Hx of Cervical CA, Protein calorie malnutrition, Vitamin D deficiency, GERD, who presented to [facility] for an elective left hip arthroplasty. Patient follows with Dr. Ivette Celestin and has received medical clearance. . She is also received cardiac clearance with Dr. Dr. Acosta. Patient has failed conservative therapy and was scheduled for a procedure electively with orthopedic surgery. Patient is seen postoperatively. She denies chest pain, shortness breath or palpitations. Reports nausea but no vomiting. Denies headache. Denies abdominal pain, constipation, diarrhea or urinary discomfort. Patient denies any fevers in the last 2 weeks. Patient notes that their appetite is normal and denies any significant change in weight. ALLERGIES: Please see below. HOME MEDICATIONS: Please see below. PAST MEDICAL HISTORY: CAD s/p Stent, Paroxysmal A. fib (on Xarelto), Asthma, Hypothyroidism, Lymphedema, Anemia, Chronic back pain, Osteoarthritis, Hx of Stomach CA (s/p Surgery / Radiation / Chemotherapy), Hx of Cervical CA, Protein calorie malnutrition, Vitamin D deficiency, GERD PAST SURGICAL HISTORY: Right hip replacement Left ankle fracture s/p repair Left hip fracture s/p ORIF (~3 years ago as per patient) Total hysterectomy Stomach CA resection Cervical CA resection FAMILY HISTORY: - Mother with history of anxiety, COPD, - Father with history of MRSA, - Positive family history of malignancies; Son with skin cancer SOCIAL HISTORY: - Denies the use of alcohol or illicit drugs; quit smoking in 1970s, unable to quantify use - Denies recent travel or sick contacts - Lives alone and is a - 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; 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 REVIEW OF SYSTEMS: 10 point review systems complete, all negative otherwise stated in HPI PHYSICAL EXAMINATION: - Vitals: BP 162/68, HR 67, RR 16, Sat 98%NC2L, Temp 97.4F - General: Lying in bed, No acute distress, Speaking in full sentences, AAOx3 - HEENT: NC, AT, PERRLA, EOMI - CVS: RRR, +S1S2 - Lungs: Fair air entry bilaterally, Clear to auscultation, No wheezing / rales / rhonchi - Abdomen: Soft, Non-distended, Non-tender - Extremities: No lower extremity edema, No calf tenderness, L hip in dressing - Neuro: No focal motor or sensory deficit - Skin: No visible rashes LABORATORY DATA: Please see below. ASSESSMENT/PLAN: Left hip pain - s/p total left hip arthroplasty (POD#0) - Patient has been scheduled for an elective orthopedic procedure - Patient has received outpatient clearance from Dr. Ivette Celestin and Cardiology, Dr. Acosta - Pain control and physical therapy at the direction of orthopedic surgery CAD s/p Stent - Currently not on aspirin or Plavix - Follows with Dr. 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 patient is in normal sinus rhythm at this time - Currently patient is not on any rate or rhythm control - Has been on Xarelto as an outpatient; has been held for last 3 days - Will likely need to resume Xarelto tomorrow evening if okay with surgery HTN - In PACU patients blood pressure was found to be in systolics of 200 - Patient has not taken any blood pressure medications today - s/p labetalol - Will resume patients Lisinopril with holding parameters Asthma - No evidence of exacerbation - c/w inhaled therapy as ordered Hypothyroidism - c/w Levothyroxine Hx of Lymphedema - No evidence of edema on physical exam Anemia - Will evaluate CBC today Chronic back pain - c/w Tylenol PRN Hx of Stomach CA - s/p Surgery / Radiation / Chemotherapy) - c/w pancreatic enzymes Hx of Cervical CA Protein calorie malnutrition Vitamin D deficiency - Will hold supplementation GERD - Currently not on any medications as an outpatient DVT prophylaxis - c/w SCDs for now - Will resume full anticoagulation within 24 hours Vital Signs/I&O Vital Signs Date Time Temp Pulse Resp B/P (MAP) Pulse Ox O2 Delivery O2 Flow Rate FiO2 08/27/18 17:31 65 16 184/81 (115) 98 2 08/27/18 17:14 97.4 Laboratory Data Labs 24H Laboratory Tests 2 08/27/18 17:05: Immature Granulocyte % (Auto) 0.5, White Blood Count 6.4, Red Blood Count 3.23L, Hemoglobin 9.5L, Hematocrit 30.1L, Mean Corpuscular Volume 93.2, Mean Corpuscular Hemoglobin 29.4, Mean Corpuscular Hemoglobin Concent 31.6L, Red Cell Distribution Width 14.2, Platelet Count 166, Neutrophils (%) (Auto) 88.2H, Lymphocytes (%) (Auto) 7.4L, Monocytes (%) (Auto) 1.4, Eosinophils (%) (Auto) 1.9, Basophils (%) (Auto) 0.6, Neutrophils # (Auto) 5.6, Lymphocytes # (Auto) 0.5L, Monocytes # (Auto) 0.1, Eosinophils # (Auto) 0.1, Basophils # (Auto) 0.0, Nucleated Red Blood Cells % (auto) 0.0 CBC/BMP Laboratory Tests 08/27/18 17:05 Red Blood Count 3.23 L, Mean Corpuscular Volume 93.2, Mean Corpuscular Hemoglobin 29.4, Mean Corpuscular Hemoglobin Concent 31.6 L, Red Cell Distribution Width 14.2, Neutrophils (%) (Auto) 88.2 H, Lymphocytes (%) (Auto) 7.4 L, Monocytes (%) (Auto) 1.4, Eosinophils (%) (Auto) 1.9, Basophils (%) (Auto) 0.6, Neutrophils # (Auto) 5.6, Lymphocytes # (Auto) 0.5 L, Monocytes # (Auto) 0.1, Eosinophils # (Auto) 0.1, Basophils # (Auto) 0.0 Allergies Coded Allergies: adhesive (Verified Allergy, Unknown, tears skin, 08/13/18) atorvastatin (Verified Allergy, Unknown, mulscle pain /hives, 08/13/18) rosuvastatin (Verified Allergy, Unknown, muscle pain, 08/13/18) tramadol (Verified Allergy, Unknown, took 2 and had hypertention went to ER, 08/13/18) Home Medications Scheduled Clobetasol Propionate/Emoll (Clobetasol Emollient 0.05% Crm) 15 Gm Cream..g., 1 APLCT TOP DAILY, (Reported) Cyanocobalamin (Cyanocobalamin Injection) 1,000 Mcg/1 Ml Inj, 1,000 MCG IM QMONTH, (Reported) Ergocalciferol (Vitamin D2) (Vitamin D2) 50,000 Unit Cap, 50,000 UNIT PO QWEEK, (Reported) FRIDAYS Furosemide (Furosemide) 20 Mg Tab, 20 MG PO DAILY, (Reported) Levothyroxine Sodium (Levothyroxine Sodium) 75 Mcg Tab, 75 MG PO DAILY, (Reported) Lisinopril (Lisinopril) 5 Mg Tablet, 5 MG PO DAILY, (Reported) Pancreatic Enzymes (Zenpep Dr 10,000 Unit Capsule) 1 Cap Cap, 3 CAP AC, (Reported) TAKES ALSO WITH SNACKS Rivaroxaban (Xarelto) 20 Mg Tab, 20 MG PO QPM, (Reported) Spironolactone (Spironolactone) 25 Mg Tab, 25 MG PO BID, (Reported) Scheduled PRN Albuterol Sulf (Albuterol Sulfate) 2.5 Mg/3 Ml Vial.neb, INH Q4HP PRN for SOB/WHEEZING, (Reported) Albuterol Sulfate (Ventolin Hfa) 108 Mcg/Act Aer, 2 PUFF INH Q4-6HP PRN for wheezing for 30 Days, #1 LEEANNA WAGNER MD Aug 27, 2018 17:47
[2018-08-27] MEDS ORDERED: CREON-24 CAPSULE PO SCH (18:00)
[2018-08-27] MEDS ORDERED: ZENPEP PO PRN (18:00)
[2018-08-27 18:08] LABS: ALBUMIN 2.8 GM/DL (3.2-5.2); ALT/SGPT 17 U/L (12-78); BILIRUBIN,TOTAL 0.4 MG/DL (0.2-1.0); BLOOD UREA NITROGEN 15 MG/DL (7-18); CALCIUM LEVEL 7.7 MG/DL (8.8-10.2); CARBON DIOXIDE LEVEL 26 MEQ/L (21-32); CHLORIDE LEVEL 110 MEQ/L (98-107); CREATININE FOR GFR 0.59 MG/DL (0.55-1.30); GLOMERULAR FILTRATION RATE > 60.0 (>39); GLUCOSE, FASTING 157 MG/DL (70-100); MAGNESIUM LEVEL 1.8 MG/DL (1.8-2.4); POTASSIUM SERUM 3.6 MEQ/L (3.5-5.1); SODIUM LEVEL 143 MEQ/L (136-145); TOTAL PROTEIN 5.5 GM/DL (6.4-8.2)
[2018-08-27] MEDS: ALBUTEROL SULFATE 2.5 MG/0.5 ML INH NEB SOLN INH SCH (20:00)
[2018-08-27] MEDS: PERCOCET 5MG/325MG TAB PO PRN (21:10)
[2018-08-28] VITALS (7 sets, daily range): BP systolic 104–154; BP diastolic 50–68
[2018-08-28] MEDS: LEVOTHYROXINE 75MCG TABLET (0.075MG) PO SCH (06:00)
[2018-08-28] MEDS ORDERED: PERCOCET 5MG/325MG TAB PO PRN (06:15)
[2018-08-28 06:18] LABS: HEMATOCRIT 25.1 % (36.0-47.0); HEMOGLOBIN 7.8 g/dl (12.0-15.5); MEAN CORPUSCULAR HEMOGLOBIN 28.9 pg (27.0-33.0); MEAN CORPUSCULAR HGB CONC 31.1 g/dl (32.0-36.5); PLATELET COUNT, AUTOMATED 149 10^3/uL (150-450); WHITE BLOOD COUNT 5.3 10^3/uL (4.0-10.0)
[2018-08-28 06:41] LABS: BLOOD UREA NITROGEN 17 MG/DL (7-18); CALCIUM LEVEL 7.3 MG/DL (8.8-10.2); CARBON DIOXIDE LEVEL 28 MEQ/L (21-32); CHLORIDE LEVEL 111 MEQ/L (98-107); GLOMERULAR FILTRATION RATE > 60.0 (>39); GLUCOSE, FASTING 107 MG/DL (70-100); MAGNESIUM LEVEL 1.7 MG/DL (1.8-2.4); POTASSIUM SERUM 3.9 MEQ/L (3.5-5.1); SODIUM LEVEL 142 MEQ/L (136-145)
[2018-08-28] MEDS: ALBUTEROL SULFATE 2.5 MG/0.5 ML INH NEB SOLN INH SCH ×4 (07:10→20:46)
[2018-08-28] MEDS ORDERED: MAG SULF 1GM/100ML (MAG RUN) 1 GM in APPROPRIATE DILUENT 1 EA IV ONE (07:30)
[2018-08-28] MEDS: PERCOCET 5MG/325MG TAB PO PRN (07:50)
[2018-08-28] MEDS ORDERED: CLOBETASOL PROPIONATE EMOLLIENT 0.05% CR 60 GM TOP PRN (09:00)
[2018-08-28] MEDS ORDERED: ACETAMINOPH W/CODEINE #3 TAB UD PO PRN (09:00)
[2018-08-28] MEDS: MIRALAX *UNIT DOSE* 17GM PACKET PO SCH (09:00)
[2018-08-28] MEDS: RIVAROXABAN 20 MG TAB (XARELTO) PO SCH (09:53)
[2018-08-28] MEDS: ACETAMINOPH W/CODEINE #3 TAB UD PO PRN ×2 (09:55→22:13)
[2018-08-28] MEDS: PANCRELIPASE PO SCH ×3 (09:55→17:30)
[2018-08-28] MEDS: LISINOPRIL 5 MG TAB PO SCH (09:56)
[2018-08-28] MEDS ORDERED: METOCLOPRAMIDE INJ 10MG/2ML VIAL (J2765) IV PRN (10:30)
--- NOTE | 2018-08-28 11:19 | IPNPDOC ---
Text Note Date of Service The patient was seen on 08/28/18. NOTE Subjective: Patient is a 78-year-old female with a PMHx of CAD s/p Stent, Paroxysmal A. fib (on Xarelto), Asthma, Hypothyroidism, Lymphedema, Anemia, Chr onic back pain, Osteoarthritis, Hx of Stomach CA (s/p Surgery / Radiation / Chemotherapy), Hx of Cervical CA, Protein calorie malnutrition, Vitamin D deficiency, GERD, who presented to [facility] [place] for an elective left hip arthroplasty. Patient follows with Dr. Ivette Celestin and has received medical clearance. She is also received cardiac clearance with Dr. Dr. Acosta. Patient has failed conservative therapy and was scheduled for a procedure electively with orthopedic surgery. Patient was seen and examined at the bedside. Patient notes that she experiences nausea, denies any vomiting. Denies any abdominal pain, C/D. denies any urinary discomfort. Denies any chest pain, shortness of breath or palpitations. Objective: Vitals (See below) General: Lying in bed, no acute distress, comfortable, AAOx3 HEENT: NC, AT CVS: RRR, +S1S2 Lungs: Fair air entry b/l, -w/r/r Abdomen: Soft, ND, NT Extremities: - Edema, - Calf tenderness Assessment and plan: Left hip pain - s/p total left hip arthroplasty (POD#1) - Patient was scheduled for an elective orthopedic procedure - Patient has received outpatient clearance from Dr. Ivette Celestin and Cardiology, Dr. Acosta - Pain control and physical therapy at the direction of orthopedic surgery CAD s/p Stent - Currently not on aspirin or Plavix - Follows with Dr. Acosta as an outpatient and has received medical/cardiac clearance Paroxysmal A. fib - court monitor shows that patient is in normal sinus rhythm at this time - Currently patient is not on any rate or rhythm control - Has been on Xarelto as an outpatient; has been held for last 3 days prior; will restart tonight HTN - BP well controlled - s/p labetalol - c/w Lisinopril with holding parameters Asthma - No evidence of exacerbation - c/w inhaled therapy as ordered Hypothyroidism - c/w Levothyroxine Hx of Lymphedema - No evidence of edema on physical exam Anemia - Hg lower than baseline; will trend Chronic back pain - c/w Tylenol PRN Hx of Stomach CA - s/p Surgery / Radiation / Chemotherapy) - c/w pancreatic enzymes Hx of Cervical CA Protein calorie malnutrition Vitamin D deficiency - c/w supplementation GERD - Currently not on any medications as an outpatient DVT prophylaxis - c/w SCDs for now - Will resume full anticoagulation today VS,Fishbone, I+O VS, Fishbone, I+O Laboratory Tests 08/27/18 17:05 Red Blood Count 3.23 L, Mean Corpuscular Volume 93.2, Mean Corpuscular Hemoglobin 29.4, Mean Corpuscular Hemoglobin Concent 31.6 L, Red Cell Dist ribution Width 14.2, Neutrophils (%) (Auto) 88.2 H, Lymphocytes (%) (Auto) 7.4 L, Monocytes (%) (Auto) 1.4, Eosinophils (%) (Auto) 1.9, Basophils (%) (Auto) 0.6, Neutrophils # (Auto) 5.6, Lymphocytes # (Auto) 0.5 L, Monocytes # (Auto) 0.1, Eosinophils # (Auto) 0.1, Basophils # (Auto) 0.0, Calcium Level 7.7 L, Aspartate Amino Transf (AST/SGOT) 22, Alanine Aminotransferase (ALT/SGPT) 17, Alkaline Phosphatase 90, Total Bilirubin 0.4, Total Protein 5.5 L, Albumin 2.8 L 08/28/18 05:25 Red Blood Count 2.70 L, Mean Corpuscular Volume 93.0, Mean Corpuscular Hemoglobin 28.9, Mean Corpuscular Hemoglobin Concent 31.1 L, Red Cell Distribution Width 14.1, Calcium Level 7.3 L Vital Signs Date Time Temp Pulse Resp B/P (MAP) Pulse Ox O2 Delivery O2 Flow Rate FiO2 08/28/18 09:56 130/60 08/28/18 09:55 20 08/28/18 08:00 98.5 74 91 08/28/18 04:00 2.0 I&O- Last 24 Hours up to 6 AM 08/28/18 06:00 Intake Total 1290 ml Output Total 550 ml Balance 740 ml LEEANNA WAGNER MD Aug 28, 2018 11:19
[2018-08-28] MEDS: MOM 30ML SUSPENSION UDC PO SCH (12:42)
[2018-08-28] MEDS: SENOKOT S TAB PO SCH ×2 (12:42→22:13)
[2018-08-28] MEDS ORDERED: MAALOX 30 ML SUSP *UDC PO PRN (13:45)
--- NOTE | 2018-08-28 18:27 | RO ---
DATE OF PROCEDURE: 08/27/2018 PREOPERATIVE DIAGNOSIS: Left hip osteoarthritis with retained 7.3 cannulated screws times three. POSTOPERATIVE DIAGNOSIS: Left hip osteoarthritis with retained 7.3 cannulated screws times three with removal of three cannulated screws and left total hip arthroplasty using a cemented Labette stem standard offset size 7, 1.5 neck with a 36 ball and a 54 acetabular component. SURGEON: Mauri Alanis MD TALENT DEVELOPMENT COORDINATOR: Amelie Neal ANESTHESIA: General. ESTIMATED BLOOD LOSS: 350 mL. COMPLICATIONS: None. INDICATIONS: This is a 78-year-old woman who broke her hip a couple of years ago and had this fixed with three cannulated screws. She went on to develop osteoarthritis of the hip that was painful, and she wished to go ahead with a hip replacement. She understood the nature and the risks associated with this and the fact this would be probably technically more challenging as a result of the hardware and the previous surgery. DESCRIPTION OF PROCEDURE: The patient was taken to the operating room, placed in the right lateral decubitus position on the [place] positioner. Her left hip and lower extremity were prepped and draped in the usual sterile fashion. All areas had been padded appropriately. Time-out was performed. I created a longitudinal incision over the lateral aspect of the hip and sharp dissection was carried down through subcutaneous tissue. I then incised the fascia gómez. I controlled hemostasis with the cautery. She actually was bleeding more than the typical patient, maybe because of her recent Xarelto use. We directed our attention distally to try to find the screws. We were able to palpate one screw head and dissected around this, as I dissected along the lateral aspect of the femur, and we are able to remove this screw by holding a clamp on it and pulling it back as we put the drill in reverse. The other two screws were not able to be identified. We searched and palpated. I elected to go ahead and free up the soft tissue around the anterior aspect the hip and exposed the femoral neck and then dislocate the hip. And at this point, I used a saw to remove just thin wafers of bone off of the femoral head at the apex until I was able to identify one of the screws. I then retrograde passed a guidewire through the screw and it exited out the lateral femur. The screw head was buried in bone and so I had use a small osteotome and a rongeur to expose this and this took some time, was somewhat difficult. Eventually, we were able to get around the screw head and back it out. This third screw head was located just adjacent to this and this in a similar fashion was removed. I then made the neck cut, and this was about a half a fingerbreadth up from the lesser trochanter. Removed the head. She had severe arthritis. I then prepared the acetabulum. Anterior and posterior retractors were placed and soft tissue was removed. I then reamed up to a size 53, had good bleeding bone and good concentric reaming. I irrigated copiously, placed a 54 acetabular component in the appropriate amount of anteversion and horizontal tilt. The cup was very solid; it was well seated. The apex hole eliminator was placed. I then placed the actual 54 x 36 polyethylene, impacted this in place. Again, she was bleeding somewhat more than the typical hip replacement. I then directed attention back to the femur and sequentially broached. I had actually prior to this used the canal initiating reamer and the canal finding reamer, lateralizing reamer and reamed up to a size 7, which had good purchase. I did this prior to removing the neck. The broaches were passed until I was (dictation cut off) and excellent fit was noted. We trialed off this, taking care with the dislocation and reduction and did a trial 1.5, 36 standard stem and this seemed to have appropriate soft tissue balance and stability. She had excellent stability in external rotation extension with no impingement, excellent flexion internal rotation with no instability, no impingement. There was minimal shuck in full extension. Overall, I was very pleased with these components. So, we selected these. I then prepared the canal, irrigated, placed a cement restrictor down at the appropriate distance distally, and the canal was gently irrigated and brushed and the epinephrine- soaked vaginal pack was placed followed by dry sponges. The physical therapy assistant prepared the bone cement in the modern technique on the back table. The canal was carefully dried out after the sponge was removed, and the cement was used to retrograde fill the canal, pressurized it. We had taken a piece of bone that we had removed from the proximal femur and plugged the holes in the lateral side of the femur, and the physical therapy assistant kept his thumb over this to prevent cement extrusion. We were able to get good pressurization and then the stem was inserted, held in place, removed excess bone cement and then placed the actual +1.5, 36 ball, impacted it in place and reduced the hip. Again, I was very pleased with the stability and range of motion. The position of the components appeared excellent. We copiously irrigated as we had multiple times prior to this. I placed the Exparel solution in the deep tissues and the TXA in the wound. Then, we irrigated, closed the deep layer with #1 Vicryl suture, the abductor with #1 Vicryl suture, with stitches being placed through the bone. I then repaired the fascia gómez with #1 Vicryl sutures and then running Stratafix suture in both directions. Irrigation was then performed. I then closed the subcu with #2-0 Vicryl and the skin with doris. Sterile dressing was applied and she was taken to recovery in stable condition. There were no known complications. The plan will be to admit her to the progressive care unit (PCU) because of some cardiac issues per Anesthesia's recommendation. The physical therapy assistant was instrumental in holding retractors and assisting in reducing and dislocating the hip, and assisting in removal of the screws, which were technically challenging, and mixing the cement, assisting in wound closure. This is coded as an unusually difficult total hip because of the screw removal, left a lateral sided defect and her bone was quite thin with a stovepipe-type canal that required cement fixation instead of Press-Fit. This added significantly to the time and complexity of the case. We had to be extremely careful in reducing and dislocating the hip and broaching for the increased risk of fracture. She also had a fair amount of bleeding, probably due to, I believe, the Xarelto that she had been taking up until a few days ago.
[2018-08-29 06:00] VITALS: BP 142/64
[2018-08-29] MEDS: LEVOTHYROXINE 75MCG TABLET (0.075MG) PO SCH (06:21)
[2018-08-29 07:00] LABS: HEMOGLOBIN 8.6 g/dl (12.0-15.5); MEAN CORPUSCULAR HEMOGLOBIN 29.8 pg (27.0-33.0); MEAN CORPUSCULAR HGB CONC 31.9 g/dl (32.0-36.5); MEAN CORPUSCULAR VOLUME 93.4 fl (80.0-96.0); PLATELET COUNT, AUTOMATED 141 10^3/uL (150-450); RED BLOOD COUNT 2.89 10^6/uL (4.00-5.40); WHITE BLOOD COUNT 5.5 10^3/uL (4.0-10.0)
[2018-08-29 07:30] LABS: BLOOD UREA NITROGEN 14 MG/DL (7-18); CALCIUM LEVEL 7.5 MG/DL (8.8-10.2); CARBON DIOXIDE LEVEL 30 MEQ/L (21-32); CHLORIDE LEVEL 108 MEQ/L (98-107); CREATININE FOR GFR 0.58 MG/DL (0.55-1.30); GLOMERULAR FILTRATION RATE > 60.0 (>39); GLUCOSE, FASTING 101 MG/DL (70-100); MAGNESIUM LEVEL 2.3 MG/DL (1.8-2.4); POTASSIUM SERUM 3.7 MEQ/L (3.5-5.1); SODIUM LEVEL 142 MEQ/L (136-145)
[2018-08-29] MEDS: PANCRELIPASE PO SCH ×2 (07:30→12:00)
[2018-08-29] MEDS: ALBUTEROL SULFATE 2.5 MG/0.5 ML INH NEB SOLN INH SCH ×2 (08:00→12:00)
[2018-08-29] MEDS: SENOKOT S TAB PO SCH (08:18)
[2018-08-29] MEDS: RIVAROXABAN 20 MG TAB (XARELTO) PO SCH (08:18)
[2018-08-29 08:19] VITALS: BP 142/64
[2018-08-29] MEDS: ACETAMINOPH W/CODEINE #3 TAB UD PO PRN (08:19)
[2018-08-29] MEDS: LISINOPRIL 5 MG TAB PO SCH (08:19)
[2018-08-29] MEDS: MOM 30ML SUSPENSION UDC PO SCH (08:19)
[2018-08-29] MEDS: MIRALAX *UNIT DOSE* 17GM PACKET PO SCH (08:20)
--- NOTE | 2018-08-29 11:39 | IPNPDOC ---
Text Note Date of Service The patient was seen on 08/29/18. NOTE Subjective: Patient is a 78-year-old female with a PMHx of CAD s/p Stent, Paroxysmal A. 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 Patient follows with Dr. Ivette Celestin and has received medical c learance. She is also received cardiac clearance with Dr. Dr. Acosta. Patient has failed conservative therapy and was scheduled for a procedure electively with orthopedic surgery. Patient was seen and examined at the bedside. Patient currently has not expense any events overnight. Will be going to acute rehabilitation unit for continued physical therapy. She denies chest pain, shortness of breath, palpitations, nausea, vomiting, abdominal pain, constipation, or urinary discomfort Objective: Vitals (See below) General: Lying in bed, no acute distress, comfortable, AAOx3 HEENT: NC, AT CVS: RRR, +S1S2 Lungs: Fair air entry b/l, the patient is without any wheezing, rales or rhonchi Abdomen: Soft, distended without tenderness Extremities: No evidence of lurks or edema, - Calf tenderness Assessment and plan: Left hip pain - s/p total left hip arthroplasty (POD#2) - Patient was scheduled for an elective orthopedic procedure - Patient has received outpatient clearance from Dr. Ivette Celestin and Cardiology, Dr. Acosta - Pain control and physical therapy at the direction of orthopedic surgery CAD s/p Stent - Currently not on aspirin or Plavix - Follows with Dr. Acosta as an outpatient and has received medical/cardiac clearance Paroxysmal A. fib - banana loader shows that patient is in normal sinus rhythm at this time - Currently patient is not on any rate or rhythm control - c/w Xarelto HTN - BP well controlled - s/p labetalol - c/w Lisinopril with holding parameters Asthma - No evidence of exacerbation - c/w inhaled therapy as ordered Hypothyroidism - c/w Levothyroxine Hx of Lymphedema - No evidence of edema on physical exam Anemia - Hg lower than baseline; will trend Chronic back pain - c/w Tylenol PRN Hx of Stomach CA - s/p Surgery / Radiation / Chemotherapy) - c/w pancreatic enzymes Hx of Cervical CA Protein calorie malnutrition Vitamin D deficiency - c/w supplementation GERD - Currently not on any medications as an outpatient DVT prophylaxis - c/w SCDs for now; Xarelto has been resumed VS,Fishbone, I+O VS, Fishbone, I+O Laboratory Tests 08/29/18 06:27 Red Blood Count 2.89 L, Mean Corpuscular Volume 93.4, Mean Corpuscular Hemoglobin 29.8, Mean Corpuscular Hemoglobin Concent 31.9 L, Red Cell Distribution Width 14.2 08/29/18 06:28 Calcium Level 7.5 L Vital Signs Date Time Temp Pulse Resp B/P (MAP) Pulse Ox O2 Delivery O2 Flow Rate FiO2 08/29/18 08:49 18 08/29/18 08:19 142/64 08/29/18 06:00 98.8 77 91 08/28/18 04:00 2.0 I&O- Last 24 Hours up to 6 AM 08/29/18 06:00 Intake Total 1270 ml Output Total 625 ml Balance 645 ml LEEANNA WAGNER MD August 29, 2018 11:39
== END 2018-08-29 14:10 | DRG 470 ==
LOC: M OR 11:00 → M MS5PR 17:45 → M PCU 20:28 → M MS5PR 08-28 15:36
PROVIDERS: ADMIT Orthopaedic Surgery; ATTEND Orthopaedic Surgery
PROC: 0QP704Z Removal of Internal Fixation Device from Left Upper Femur, Open Approach (ICD-10-PCS; 2018-08-27)
PROC: 0SRB029 Replacement of Left Hip Joint with Metal on Polyethylene Synthetic Substitute, Cemented, Open Approach (ICD-10-PCS; principal; 2018-08-27 13:45)
DX: M16.12 Unilateral primary osteoarthritis, left hip (principal); E46 Unspecified protein-calorie malnutrition; D63.1 Anemia in chronic kidney disease; I48.0 Paroxysmal atrial fibrillation; E03.9 Hypothyroidism, unspecified; J45.40 Moderate persistent asthma, uncomplicated; I50.9 Heart failure, unspecified; K21.9 Gastro-esophageal reflux disease without esophagitis; E55.9 Vitamin D deficiency, unspecified; Z79.899 Other long term (current) drug therapy; Z85.41 Personal history of malignant neoplasm of cervix uteri; Z85.028 Personal history of other malignant neoplasm of stomach; Z96.641 Presence of right artificial hip joint; Z87.891 Personal history of nicotine dependence; I25.10 Atherosclerotic heart disease of native coronary artery without angina pectoris; Z95.2 Presence of prosthetic heart valve; M54.5 Low back pain

== ENCOUNTER 2018-08-29 12:17 | Inpatient (IN) | payer MEDICARE, OTHER ==
[~2018-08-29] VITALS: Ht 144.8 cm; Wt 56.8 kg
[~2018-08-29 12:17] MED LIST changes: -LIDOCAINE 1% MDV 20ML VIAL SQ PRN; -LR 1,000 ML IV ONE
[2018-08-29 14:15] VITALS: BP 150/63
[2018-08-29] MEDS ORDERED: BISACODYL 10 MG SUPP PR PRN (16:45)
[2018-08-29] MEDS ORDERED: ALBUTEROL SULFATE 2.5 MG/0.5 ML INH NEB SOLN NEB PRN (16:45)
[2018-08-29] MEDS ORDERED: MOM 30ML SUSPENSION UDC PO PRN (16:45)
[2018-08-29] MEDS: ALBUTEROL SULFATE 2.5 MG/0.5 ML INH NEB SOLN NEB SCH ×2 (17:00→20:35)
[2018-08-29] MEDS ORDERED: ZENPEP PO PRN (19:45)
[2018-08-29 20:00] VITALS: BP 150/68
[2018-08-29] MEDS: DOCUSATE SODIUM 100 MG CAP PO SCH (20:39)
[2018-08-29] MEDS: FERROUS GLUCONATE 324 MG TAB PO SCH (20:39)
[2018-08-29] MEDS: SENNA 8.6 MG TAB (SENOKOT) PO SCH (20:39)
[2018-08-29] MEDS: GABAPENTIN 100 MG CAP PO SCH (20:39)
[2018-08-29] MEDS: ACETAMINOPHEN 500 MG TAB PO SCH (20:40)
[2018-08-29 22:43] LABS: APPEARANCE, URINE CLEAR (CLEAR); BACTERIA, URINE AUTO NEGATIVE (NEGATIVE); BILIRUBIN, URINE AUTO NEGATIVE (NEGATIVE); BLOOD, URINE BLOOD NEGATIVE (NEGATIVE); COLOR, URINE YELLOW (YELLOW); GLUCOSE, URINE (UA) AUTO NEGATIVE (NEGATIVE); KETONE, URINE AUTO NEGATIVE (NEGATIVE); LEUKOCYTE ESTERASE, URINE AUTO TRACE (NEGATIVE); MUCUS, URINE SMALL (NEGATIVE); NITRITE, URINE AUTO NEGATIVE (NEGATIVE); PROTEIN, URINE AUTO NEGATIVE (NEGATIVE); RBC, URINE AUTO 3 /HPF (0-3); SPECIFIC GRAVITY URINE AUTO 1.024 (1.002-1.035); SQUAMOUS EPITHELIAL CELL UR AU 2 /HPF (0-6); UROBILINOGEN, URINE AUTO 0.2 mg/dL (0.0-2.0); WBC, URINE AUTO 6 /HPF (0-3)
[2018-08-30 06:00] VITALS: BP 140/60
[2018-08-30] MEDS: LEVOTHYROXINE 75MCG TABLET (0.075MG) PO SCH (06:23)
[2018-08-30 07:19] LABS: BASO % 0.5 % (0.0-1.0); EOS # 0.3 10^3/uL (0.0-0.50); EOS % 4.6 % (0.0-3.0); HEMATOCRIT 26.8 % (36.0-47.0); HEMOGLOBIN 8.4 g/dl (12.0-15.5); LYMPH # 0.9 10^3/uL (1.5-4.5); LYMPH % 15.9 % (24.0-44.0); MEAN CORPUSCULAR HEMOGLOBIN 30.1 pg (27.0-33.0); MEAN CORPUSCULAR HGB CONC 31.3 g/dl (32.0-36.5); MEAN CORPUSCULAR VOLUME 96.1 fl (80.0-96.0); MONO # 0.6 10^3/uL (0.0-0.8); MONO % 10.2 % (0.0-5.0); NEUTROPHILS # 4.1 10^3/uL (1.8-7.7); NEUTROPHILS % 68.6 % (36.0-66.0); PLATELET COUNT, AUTOMATED 148 10^3/uL (150-450); RED BLOOD COUNT 2.79 10^6/uL (4.00-5.40); WHITE BLOOD COUNT 5.9 10^3/uL (4.0-10.0)
[2018-08-30] MEDS: ALBUTEROL SULFATE 2.5 MG/0.5 ML INH NEB SOLN NEB SCH ×4 (07:37→19:48)
[2018-08-30 07:44] LABS: ALBUMIN 2.2 GM/DL (3.2-5.2); ALT/SGPT 7 U/L (12-78); BILIRUBIN,TOTAL 0.4 MG/DL (0.2-1.0); BLOOD UREA NITROGEN 13 MG/DL (7-18); CALCIUM LEVEL 7.8 MG/DL (8.8-10.2); CARBON DIOXIDE LEVEL 34 MEQ/L (21-32); CHLORIDE LEVEL 105 MEQ/L (98-107); CREATININE FOR GFR 0.58 MG/DL (0.55-1.30); GLOMERULAR FILTRATION RATE > 60.0 (>39); GLUCOSE, FASTING 91 MG/DL (70-100); POTASSIUM SERUM 3.6 MEQ/L (3.5-5.1); SODIUM LEVEL 140 MEQ/L (136-145); TOTAL PROTEIN 5.5 GM/DL (6.4-8.2)
[2018-08-30] MEDS: GABAPENTIN 100 MG CAP PO SCH ×3 (09:02→20:52)
[2018-08-30] MEDS: FERROUS GLUCONATE 324 MG TAB PO SCH ×2 (09:02→20:52)
[2018-08-30] MEDS: ZENPEP PO SCH ×3 (09:02→17:51)
[2018-08-30] MEDS: DOCUSATE SODIUM 100 MG CAP PO SCH ×2 (09:02→20:52)
[2018-08-30] MEDS: LISINOPRIL 5 MG TAB PO SCH (09:03)
[2018-08-30] MEDS: PANTOPRAZOLE 40MG TAB (PROTONIX) PO SCH (09:03)
[2018-08-30] MEDS: RIVAROXABAN 20 MG TAB (XARELTO) PO SCH (09:04)
[2018-08-30] MEDS: ACETAMINOPHEN 500 MG TAB PO SCH ×3 (09:04→20:52)
[2018-08-30 14:00] VITALS: BP 114/58
--- NOTE | 2018-08-30 14:34 | IPNPDOC ---
Subjective Date Seen The patient was seen on 08/30/18. Subjective Chief Complaint/HPI Patient is a 78-year-old female, past medical history significant for left hip osteoarthritis, paroxysmal atrial fibrillation on anticoagulation therapy, hypothyroidism, admitted and recently discharged after left hip arthroplasty Events since last encounter Up to chair at bedside, complaining currently of constipation, has not had a bowel movement for 5 days. Denies chest pain or shortness of breath. Objective Physical Examination Other physical findings General: Up to chair bedside NAD. Skin: Warm, dry, intact, ecchymosis and discoloration. Cardiovascular: iregular rate and rhythm, systolic murmur, no jugular venous distention, BLE edema. Respiratory:CTAB, no accessory muscle use noted. Abdomen: Bowel sounds +, no tenderness, no distention Musculoskeletal: No joint deformities, pain with palpation of left leg Neurologic: CN 2-12 grossly intact, alert and oriented 3 Psychiatric: Appropriate mood and affect, no anxiety or agitation. A-FIB/CHADSVASC A-FIB History Current/History of A-Fib/PAF?: Yes Current Oral Anticoagulant The: Yes Assessment /Plan Assessment Left hip osteoarthritis -Status post total left hip arthroplasty -Currently in ARU for rehabilitation, mobilization and strengthening -Management by primary team Paroxysmal atrial fibrillation -Currently in sinus rhythm at a controlled rate -On anticoagulation therapy withxarelto CAD without angina -Continue CAD risk factor modifications -Continue blood pressure control Hypertension -Currently on lisinopril- Asthma - No current evidence of exacerbation Hypothyroidism -Continue Levothyroxine Plan/VTE VTE Prophylaxis Ordered?: Yes VS, I&O, [facility] Vital Signs/I&O Vital Signs Date Time Temp Pulse Resp B/P (MAP) Pulse Ox O2 Delivery O2 Flow Rate FiO2 08/30/18 14:00 98.1 81 19 114/58 (76) 94 I&O- Last 24 Hours up to 6 AM 08/30/18 06:00 Intake Total 520 ml Output Total 650 ml Balance -130 ml Laboratory Data 24H LABS Laboratory Tests 2 08/30/18 06:43: Immature Granulocyte % (Auto) 0.2, White Blood Count 5.9, Red Blood Count 2.79L, Hemoglobin 8.4L, Hematocrit 26.8L, Mean Corpuscular Volume 96.1H, Mean Corpuscular Hemoglobin 30.1, Mean Corpuscular Hemoglobin Concent 31.3L, Red Cell Distribution Width 14.2, Platelet Count 148L, Neutrophils (%) (Auto) 68.6H, Lymphocytes (%) (Auto) 15.9L, Monocytes (%) (Auto) 10.2H, Eosinophils (%) (Auto) 4.6H, Basophils (%) (Auto) 0.5, Neutrophils # (Auto) 4.1, Lymphocytes # (Auto) 0.9L, Monocytes # (Auto) 0.6, Eosinophils # (Auto) 0.3, Basophils # (Auto) 0.0, Nucleated Red Blood Cells % (auto) 0.0, Anion Gap 1L, Glomerular Filtration Rate > 60.0, Blood Urea Nitrogen 13, Creatinine 0.58, Sodium Level 140, Potassium Level 3.6, Chloride Level 105, Carbon Dioxide Level 34H, Calcium Level 7.8L, Aspartate Amino Transf (AST/SGOT) 18, Alanine Aminotransferase (ALT/SGPT) 7L, Alkaline Phosphatase 71, Total Bilirubin 0.4, Total Protein 5.5L, Albumin 2.2#L, Albumin/Globulin Ratio 0.67L CBC/BMP Laboratory Tests 08/30/18 06:43 Red Blood Count 2.79 L, Mean Corpuscular Volume 96.1 H, Mean Corpuscular Hemoglobin 30.1, Mean Corpuscular Hemoglobin Concent 31.3 L, Red Cell Distribution Width 14.2, Neutrophils (%) (Auto) 68.6 H, Lymphocytes (%) (Auto) 15.9 L, Monocytes (%) (Auto) 10.2 H, Eosinophils (%) (Auto) 4.6 H, Basophils (%) (Auto) 0.5, Neutrophils # (Auto) 4.1, Lymphocytes # (Auto) 0.9 L, Monocytes # (Auto) 0.6, Eosinophils # (Auto) 0.3, Basophils # (Auto) 0.0, Calcium Level 7.8 L, Aspartate Amino Transf (AST/SGOT) 18, Alanine Aminotransferase (ALT/SGPT) 7 L, Alkaline Phosphatase 71, Total Bilirubin 0.4, Total Protein 5.5 L, Albumin 2.2 #L Microbiology Microbiology 08/29/18 Urine Culture - Final, Complete MIRELA LAMAS STAND IN August 30, 2018 14:34
--- NOTE | 2018-08-30 15:11 | HPEPDOC ---
Media Production Manager Note DATE OF ADMISSION: August 29, 2018 at 14:15 SOURCE OF ADMISSION INFORMATION: patient and [facility] records CHIEF COMPLAINT: [left hip osteoarthritis s/p replacement HISTORY OF PRESENT ILLNESS: 78F pmh gastric cancer s/p gastrectomy (2015), DVT, cervical cancer, Afib, CAD s/p stent, mitral regurgitation, hypothyroidism, CKD, asthma, diastolic CHF, left hip OA s/p ORIF in the past who had persistent left hip pain and was cleared by her PMD for THR planned for 08/27/18. Upon arrival to [facility] her Xarelto was held and she underwent screw removal and total hip replacement performed by Dr. Alanis with significant blood loss with post-op anemia. She was quite weak following surgery and below her baseline level of function which was independent living at home alone. She was evaluated by therapy, found to have deficits in gait and ADLs and deemed medically appropriate for discharge to ARU on 08/29/18. Upon arrival she was instructed to maintain total hip precautions, her pain medication was addressed, and she was instructed to ambulate WBAT to the LLE. REVIEW OF SYSTEMS: The following is a completed review of systems and has been reviewed. Review of systems otherwise unremarkable. PAIN: Patient self reports +left hip soreness EYES: Negative for recent vision changes EARS, NOSE, & THROAT: denies dysphagia, throat pain, or rhinorrhea CARDIOVASCULAR: denies chest pain or palpitations PULMONARY: Negative. Denies shortness of breath GASTROINTESTINAL: Negative for diarrhea/constipation GENITOURINARY: Negative for dysuria MUSCULOSKELETAL: left hip OA HEMATOLOGICAL: +post-op anemia SKIN: left hip incision PSYCHIATRIC: Unremarkable All other review of systems found to be negative. PAST MEDICAL HISTORY: as per HPI PAST SURGICAL HISTORY: total gastrectomy, hysterectomy, bilateral hip replacement, CAD with stenting ALLERGIES: Please see below. MEDICATIONS: Please see below. SOCIAL HISTORY: Retired, lives alone, quit smoking 1969, no ETOH or illicit drug use DIET: Regular PHYSICAL EXAMINATION: VITAL SIGNS: Please see below. GENERAL: Pleasant and cooperative. No acute distress. HEENT: PERRL. Extraocular movements intact. Clear conjunctiva CARDIOVASCULAR: Regular rate and rhythm. +systolic murmurs LUNGS: Clear to auscultation bilaterally. No wheezes. No rhonchi ABDOMEN: Soft, nontender, nondistended. Positive bowel sounds. Normal active bowel sounds NEUROLOGICAL: Alert and oriented times three. Cranial nerves II through XII grossly intact. Sensation grossly intact including 1st web space of the dorsum of left foot EXTREMITIES: 5\5 strength bilateral upper extremities. 5\5 strength right lower extremity. 5/5 strength in left lower ankle DF and EHL, >3/5 knee extension, exam limited due to surgery +Neer's on the right SKIN: left hip incision without induration, +ecchymosis, otherwise c/d/i Imaging documentation personally reviewed by record FUNCTIONAL STATUS: Premorbid: Independent with all activities of daily life as well as mobility, went to gym daily, played golf On Admission: Min assist for functional transfers, Contact guard to ambulate 10 feet with RW, Total assist for lower body dressing, min assist for bed mobility. GOALS: Mod-I with RW ambulating community distances, stairs, dressing, bathing, toileting, functional transfers, educate on hip precautions, medical optimization, assess for DME needs, caregiver training. ASSESSMENT:78-year-old F with past medical history of Afib, CAD, left hip OA s/p ORIF who presents status post elective hip THR PLAN: 1. Rehab: PT/OT, assess for DMEs 2. Neuro: stable, void deliriogenic meds 3. Ortho: s.p left hip hardware removal and THR on 08/27/18 3. CArdio: pmh CAD s/p stenting, diastolic CHF, HTN on Lisinopril, Afib on Xarelto- medicine consulted 4. Resp: pmh asthma c/u home breathing treatments 5. Endo: pmh hypothyroidism c/u synthroid 6. Heme: post-op anemia- monitor and transfuse if <8 7. DVT: c/u Xarelto 8. GI ppx: c/u protonix 9. : f/u admission UA and UCx, monitor PVRs 10. Dispo: TBD POST ADMISSION PHYSICIAN EVALUATION: Medical and functional status: Description of medical status, medical assessment: As above. Rehabilitation diagnosis and current and prior cold morbid medical conditions as above. Risk of complications and plans to mitigate them as above. Description of functional status current status is as above. Prior status as above. Status compared to preadmission: There are no clinically significant differences between the patient's current status and the information described on the preadmission screening document. Treatment plan anticipated: Treatment plan is as described above. Required disciplines including physical therapy, occupational therapy, others as noted above. Intensity of services: 3 hours a day, 6 days a week. Special considerations: There are no specific special or safety considerations that would likely preclude immediate implementation of an intensive rehabilitation program or subsequently influence the plan of care ATTESTATION: Considering all the information above, it is my best judgment that this patient requires intensive rehabilitation therapy as described above and an inpatient hospital environment due to the complexity of nursing, medical, and rehabilitation needs required by the patient. Furthermore, this patient can reasonably be expected to participate in an benefit from an inpatient rehabilitation stay with an interdisciplinary team approach to the delivery of rehabilitation care under the direction and supervision of rehabilitation physician. PROGNOSIS: Excellent ESTIMATED LENGTH OF STAY:10-12 days. PROJECTED DISCHARGE DESTINATION: Home with family support and any durable medical equipment required to increase functional safety and mobility. TIME SPENT COUNSELING AND COORDINATING INITIAL CARE: Greater than 70 minutes. Vital Signs Vital Sign - Last 24 Hours 08/29/18 08/30/18 08/30/18 08/30/18 20:00 06:00 09:03 14:00 Temp 98.7 98.5 98.1 Pulse 86 75 81 Resp B/P (MAP) 150/68 (95) 140/60 (86) 140/60 114/58 (76) Pulse Ox 95 96 94 Laboratory Data CBC/BMP Laboratory Tests 08/30/18 06:43 Red Blood Count 2.79 L, Mean Corpuscular Volume 96.1 H, Mean Corpuscular Hemoglobin 30.1, Mean Corpuscular Hemoglobin Concent 31.3 L, Red Cell Distribution Width 14.2, Neutrophils (%) (Auto) 68.6 H, Lymphocytes (%) (Auto) 15.9 L, Monocytes (%) (Auto) 10.2 H, Eosinophils (%) (Auto) 4.6 H, Basophils (%) (Auto) 0.5, Neutrophils # (Auto) 4.1, Lymphocytes # (Auto) 0.9 L, Monocytes # (Auto) 0.6, Eosinophils # (Auto) 0.3, Basophils # (Auto) 0.0, Calcium Level 7.8 L, Aspartate Amino Transf (AST/SGOT) 18, Alanine Aminotransferase (ALT/SGPT) 7 L, Alkaline Phosphatase 71, Total Bilirubin 0.4, Total Protein 5.5 L, Albumin 2.2 #L Labs 24H Laboratory Tests 2 08/30/18 06:43: Immature Granulocyte % (Auto) 0.2, White Blood Count 5.9, Red Blood Count 2.79L, Hemoglobin 8.4L, Hematocrit 26.8L, Mean Corpuscular Volume 96.1H, Mean Corpuscular Hemoglobin 30.1, Mean Corpuscular Hemoglobin Concent 31.3L, Red Cell Distribution Width 14.2, Platelet Count 148L, Neutrophils (%) (Auto) 68.6H, Lymphocytes (%) (Auto) 15.9L, Monocytes (%) (Auto) 10.2H, Eosinophils (%) (Auto) 4.6H, Basophils (%) (Auto) 0.5, Neutrophils # (Auto) 4.1, Lymphocytes # (Auto) 0.9L, Monocytes # (Auto) 0.6, Eosinophils # (Auto) 0.3, Basophils # (Auto) 0.0, Nucleated Red Blood Cells % (auto) 0.0, Anion Gap 1L, Glomerular Filtration Rate > 60.0, Blood Urea Nitrogen 13, Creatinine 0.58, Sodium Level 140, Potassium Level 3.6, Chloride Level 105, Carbon Dioxide Level 34H, Calcium Level 7.8L, Aspartate Amino Transf (AST/SGOT) 18, Alanine Aminotransferase (ALT/SGPT) 7L, Alkaline Phosphatase 71, Total Bilirubin 0.4, Total Protein 5.5L, Albumin 2.2#L, Albumin/Globulin Ratio 0.67L Microbiology Microbiology 08/29/18 Urine Culture - Final, Complete Home Medications Scheduled Clobetasol Propionate/Emoll (Clobetasol Emollient 0.05% Crm) 15 Gm Cream..g., 1 APLCT TOP DAILY, (Reported) Cyanocobalamin (Cyanocobalamin Injection) 1,000 Mcg/1 Ml Inj, 1,000 MCG IM QMONTH, (Reported) Ergocalciferol (Vitamin D2) (Vitamin D2) 50,000 Unit Cap, 50,000 UNIT PO QWEEK, (Reported) FRIDAYS Furosemide (Furosemide) 20 Mg Tab, 20 MG PO DAILY, (Reported) Levothyroxine Sodium (Levothyroxine Sodium) 75 Mcg Tab, 75 MG PO DAILY, (Reported) Lisinopril (Lisinopril) 5 Mg Tablet, 5 MG PO DAILY, (Reported) Pancreatic Enzymes (Zenpep Dr 10,000 Unit Capsule) 1 Cap Cap, 3 CAP AC, (Reported) TAKES ALSO WITH SNACKS Rivaroxaban (Xarelto) 20 Mg Tab, 20 MG PO QPM, (Reported) Spironolactone (Spironolactone) 25 Mg Tab, 25 MG PO BID, (Reported) Scheduled PRN Albuterol Sulf (Albuterol Sulfate) 2.5 Mg/3 Ml Vial.neb, INH Q4HP PRN for SOB/WHEEZING, (Reported) Albuterol Sulfate (Ventolin Hfa) 108 Mcg/Act Aer, 2 PUFF INH Q4-6HP PRN for w heezing Allergies Coded Allergies: adhesive (Verified Allergy, Unknown, tears skin, 08/13/18) atorvastatin (Verified Allergy, Unknown, mulscle pain /hives, 08/13/18) rosuvastatin (Verified Allergy, Unknown, muscle pain, 08/13/18) tramadol (Verified Allergy, Unknown, took 2 and had hypertention went to ER, 08/13/18) A-FIB/CHADSVASC A-FIB History Current/History of A-Fib/PAF?: Yes Current Oral Anticoagulant The: Yes GENA CEE MD August 30, 2018 15:11
[2018-08-30] MEDS ORDERED: SENNA 8.6 MG TAB (SENOKOT) PO SCH (15:15)
[2018-08-30 20:00] VITALS: BP 106/52
[2018-08-30] MEDS: SENNA 8.6 MG TAB (SENOKOT) PO SCH (20:52)
[2018-08-30] MEDS ORDERED: SENOKOT S TAB PO SCH (21:00)
[2018-08-31 06:00] VITALS: BP 141/63
[2018-08-31 06:17] LABS: BASO % 0.6 % (0.0-1.0); EOS # 0.4 10^3/uL (0.0-0.50); EOS % 6.6 % (0.0-3.0); HEMATOCRIT 23.9 % (36.0-47.0); HEMOGLOBIN 7.5 g/dl (12.0-15.5); LYMPH # 0.8 10^3/uL (1.5-4.5); LYMPH % 14.6 % (24.0-44.0); MEAN CORPUSCULAR HEMOGLOBIN 29.6 pg (27.0-33.0); MEAN CORPUSCULAR HGB CONC 31.4 g/dl (32.0-36.5); MEAN CORPUSCULAR VOLUME 94.5 fl (80.0-96.0); MONO # 0.4 10^3/uL (0.0-0.8); MONO % 6.5 % (0.0-5.0); NEUTROPHILS # 3.9 10^3/uL (1.8-7.7); NEUTROPHILS % 71.5 % (36.0-66.0); PLATELET COUNT, AUTOMATED 143 10^3/uL (150-450); RED BLOOD COUNT 2.53 10^6/uL (4.00-5.40); WHITE BLOOD COUNT 5.4 10^3/uL (4.0-10.0)
[2018-08-31] MEDS: LEVOTHYROXINE 75MCG TABLET (0.075MG) PO SCH (06:25)
[2018-08-31 06:34] LABS: BLOOD UREA NITROGEN 20 MG/DL (7-18); CALCIUM LEVEL 7.4 MG/DL (8.8-10.2); CARBON DIOXIDE LEVEL 31 MEQ/L (21-32); CHLORIDE LEVEL 108 MEQ/L (98-107); CREATININE FOR GFR 0.74 MG/DL (0.55-1.30); GLOMERULAR FILTRATION RATE > 60.0 (>39); GLUCOSE, FASTING 98 MG/DL (70-100); POTASSIUM SERUM 3.3 MEQ/L (3.5-5.1); SODIUM LEVEL 141 MEQ/L (136-145)
[2018-08-31] MEDS: ALBUTEROL SULFATE 2.5 MG/0.5 ML INH NEB SOLN NEB SCH ×3 (08:00→20:00)
[2018-08-31] MEDS: GABAPENTIN 100 MG CAP PO SCH ×3 (08:17→21:16)
[2018-08-31] MEDS: RIVAROXABAN 20 MG TAB (XARELTO) PO SCH (08:17)
[2018-08-31] MEDS: ACETAMINOPHEN 500 MG TAB PO SCH ×3 (08:17→21:17)
[2018-08-31] MEDS: PANTOPRAZOLE 40MG TAB (PROTONIX) PO SCH (08:17)
[2018-08-31] MEDS: FERROUS GLUCONATE 324 MG TAB PO SCH ×2 (08:17→21:16)
[2018-08-31] MEDS: DOCUSATE SODIUM 100 MG CAP PO SCH ×2 (08:17→21:16)
[2018-08-31] MEDS: LISINOPRIL 5 MG TAB PO SCH (08:18)
[2018-08-31] MEDS: ZENPEP PO SCH ×3 (08:24→17:02)
--- NOTE | 2018-08-31 10:41 | IPNPDOC ---
Subjective Date Seen The patient was seen on 08/31/18. Subjective Chief Complaint/HPI Patient is a 78-year-old female, past medical history significant for left hip osteoarthritis, paroxysmal atrial fibrillation on anticoagulation therapy, hypothyroidism, admitted and recently discharged to inpatient rehab unit after left hip arthroplasty Events since last encounter Patient reports she has not had a bowel movement yet. Denies nausea, vomiting, shortness of breath, chills, fever.. Has tolerated physical therapy and occupational therapy without issues Objective Physical Examination Other physical findings General: Up to chair bedside NAD. Skin: Warm, dry, intact, ecchymosis and discoloration. Cardiovascular: iregular rate and rhythm, systolic murmur, no jugular venous distention, BLE edema. Respiratory:CTAB, no accessory muscle use noted. Abdomen: Bowel sounds +, no tenderness, no distention Musculoskeletal: No joint deformities. Neurologic: CN 2-12 grossly intact, alert and oriented 3 Psychiatric: Appropriate mood and affect, no anxiety or agitation. A-FIB/CHADSVASC A-FIB History Current/History of A-Fib/PAF?: No Current Oral Anticoagulant The: Yes Treatment Treatment ordered: Rivaroxaban Assessment /Plan Assessment Left hip osteoarthritis -S/P total left hip arthroplasty -continued in ARU for rehabilitation, mobilization and strengthening -Management by primary team Paroxysmal atrial fibrillation -maintaining sinus rhythm at a controlled rate -On anticoagulation therapy with xarelto CAD without angina -Continue CAD risk factor modifications -Continue blood pressure control Hypertension -continue lisinopril Asthma - No current evidence of exacerbation Hypothyroidism -Continue Levothyroxine Constipation -Possibly due to decreased mobility and use of pain medications post surgical intervention -adjust laxative regimen -encourage ambulation Plan/VTE VTE Prophylaxis Ordered?: Yes VS, I&O, 24H, Fishbone Vital Signs/I&O Vital Signs Date Time Temp Pulse Resp B/P (MAP) Pulse Ox O2 Delivery O2 Flow Rate FiO2 08/31/18 08:18 111/54 08/31/18 06:00 98.2 70 20 95 I&O- Last 24 Hours up to 6 AM 08/31/18 06:00 Intake Total 1240 ml Output Total 400 ml Balance 840 ml Laboratory Data 24H LABS Laboratory Tests 2 08/31/18 06:02: Immature Granulocyte % (Auto) 0.2, White Blood Count 5.4, Red Blood Count 2.53L, Hemoglobin 7.5L, Hematocrit 23.9L, Mean Corpuscular Volume 94.5, Mean Corpuscular Hemoglobin 29.6, Mean Corpuscular Hemoglobin Concent 31.4L, Red Cell Distribution Width 14.0, Platelet Count 143L, Neutrophils (%) (Auto) 71.5H, Lymphocytes (%) (Auto) 14.6L, Monocytes (%) (Auto) 6.5H, Eosinophils (%) (Auto) 6.6H, Basophils (%) (Auto) 0.6, Neutrophils # (Auto) 3.9, Lymphocytes # (Auto) 0.8L, Monocytes # (Auto) 0.4, Eosinophils # (Auto) 0.4, Basophils # (Auto) 0.0, Nucleated Red Blood Cells % (auto) 0.0, Anion Gap 2L, Glomerular Filtration Rate > 60.0, Blood Urea Nitrogen 20#H, Creatinine 0.74, Sodium Level 141, Potassium Level 3.3L, Chloride Level 108H, Carbon Dioxide Level 31, Calcium Level 7.4L CBC/BMP Laboratory Tests 08/31/18 06:02 Red Blood Count 2.53 L, Mean Corpuscular Volume 94.5, Mean Corpuscular Hemoglobin 29.6, Mean Corpuscular Hemoglobin Concent 31.4 L, Red Cell Distribution Width 14.0, Neutrophils (%) (Auto) 71.5 H, Lymphocytes (%) (Auto) 14.6 L, Monocytes (%) (Auto) 6.5 H, Eosinophils (%) (Auto) 6.6 H, Basophils (%) (Auto) 0.6, Neutrophils # (Auto) 3.9, Lymphocytes # (Auto) 0.8 L, Monocytes # (Auto) 0.4, Eosinophils # (Auto) 0.4, Basophils # (Auto) 0.0, Calcium Level 7.4 L Microbiology Microbiology 08/29/18 Urine Culture - Final, Complete MIRELA LAMAS FOCUSER August 31, 2018 10:41
[2018-08-31] MEDS ORDERED: BISACODYL 10 MG SUPP PR ONE (10:45)
[2018-08-31] MEDS ORDERED: POTASSIUM CHLORIDE 10 MEQ SR TABLET PO ONE (12:15)
[2018-08-31] MEDS ORDERED: FUROSEMIDE 20 MG/2 ML VIAL (J1940) IV ONE (13:30)
[2018-08-31] MEDS ORDERED: diphenhydrAMINE INJ 50MG/ML VIAL (J1200) IM ONE (13:30)
[2018-08-31] MEDS ORDERED: ACETAMINOPHEN TAB 650MG DOSE (2X325MG) PO ONE (13:30)
[2018-08-31 14:00] VITALS: BP 124/69
--- NOTE | 2018-08-31 14:19 | IPNPDOC ---
PM&R Progress Note DATE OF SERVICE: August 31, 2018 Lot Technician Progress Note Subjective: APtient reports she feels tired and would like to get a blood transfusion. REVIEW OF SYSTEMS: The following is a completed review of systems and has been r sreekanthiewed. Review of systems otherwise unremarkable. PAIN: Patient self reports +left hip soreness EYES: Negative for recent vision changes EARS, NOSE, & THROAT: denies dysphagia, throat pain, or rhinorrhea CARDIOVASCULAR: denies chest pain or palpitations PULMONARY: Negative. Denies shortness of breath GASTROINTESTINAL: Negative for diarrhea/constipation GENITOURINARY: Negative for dysuria MUSCULOSKELETAL: left hip OA HEMATOLOGICAL: +post-op anemia SKIN: left hip incision PSYCHIATRIC: Unremarkable All other review of systems found to be negative. PHYSICAL EXAMINATION: VITAL SIGNS: Please see below. GENERAL: Pleasant and cooperative. No acute distress. HEENT: PERRL. Extraocular movements intact. Clear conjunctiva CARDIOVASCULAR: Regular rate and rhythm. +systolic murmurs LUNGS: Clear to auscultation bilaterally. No wheezes. No rhonchi ABDOMEN: Soft, nontender, nondistended. Positive bowel sounds. Normal active bowel sounds NEUROLOGICAL: Alert and oriented times three. Cranial nerves II through XII grossly intact. Sensation grossly intact including 1st web space of the dorsum of left foot EXTREMITIES: 5\5 strength bilateral upper extremities. 5\5 strength right lower extremity. 5/5 strength in left lower ankle DF and EHL, >3/5 knee extension, exam limited due to surgery +Neer's on the right SKIN: left hip incision without induration, +ecchymosis, otherwise c/d/i ASSESSMENT:78-year-old F with past medical history of Afib, CAD, left hip OA s/p ORIF who presents status post elective hip THR PLAN: 1. Rehab: PT/OT, assess for DMEs,a ble to ambulate with platform RW 2. Neuro: stable, void deliriogenic meds 3. Ortho: s.p left hip hardware removal and THR on 08/27/18 3. CArdio: pmh CAD s/p stenting, diastolic CHF, HTN on Lisinopril, Afib on Xarelto- medicine consulted 4. Resp: pmh asthma c/u home breathing treatments 5. Endo: pmh hypothyroidism c/u synthroid 6. Heme: post-op anemia-today 7.5, will trasnfsue 2 units prbcs, consent obtained 7. DVT: c/u Xarelto 8. GI ppx: c/u protonix 9. : f/u admission UA and UCx, monitor PVRs 10. Dispo: TBD Allergies Coded Allergies: adhesive (Verified Allergy, Unknown, tears skin, 08/13/18) atorvastatin (Verified Allergy, Unknown, mulscle pain /hives, 08/13/18) rosuvastatin (Verified Allergy, Unknown, muscle pain, 08/13/18) tramadol (Verified Allergy, Unknown, took 2 and had hypertention went to ER, 08/13/18) Vital Signs Vital Signs Date Time Temp Pulse Resp B/P (MAP) Pulse Ox O2 Delivery O2 Flow Rate FiO2 08/31/18 08:18 111/54 08/31/18 06:00 98.2 70 20 95 Laboratory Data CBC/BMP Laboratory Tests 08/31/18 06:02 Red Blood Count 2.53 L, Mean Corpuscular Volume 94.5, Mean Corpuscular Hemoglobin 29.6, Mean Corpuscular Hemoglobin Concent 31.4 L, Red Cell Distribution Width 14.0, Neutrophils (%) (Auto) 71.5 H, Lymphocytes (%) (Auto) 14.6 L, Monocytes (%) (Auto) 6.5 H, Eosinophils (%) (Auto) 6.6 H, Basophils (%) (Auto) 0.6, Neutrophils # (Auto) 3.9, Lymphocytes # (Auto) 0.8 L, Monocytes # (Auto) 0.4, Eosinophils # (Auto) 0.4, Basophils # (Auto) 0.0, Calcium Level 7.4 L Labs 24H Laboratory Tests 2 08/31/18 06:02: Immature Granulocyte % (Auto) 0.2, White Blood Count 5.4, Red Blood Count 2.53L, Hemoglobin 7.5L, Hematocrit 23.9L, Mean Corpuscular Volume 94.5, Mean Corpuscular Hemoglobin 29.6, Mean Corpuscular Hemoglobin Concent 31.4L, Red Cell Distribution Width 14.0, Platelet Count 143L, Neutrophils (%) (Auto) 71.5H, L ymphocytes (%) (Auto) 14.6L, Monocytes (%) (Auto) 6.5H, Eosinophils (%) (Auto) 6.6H, Basophils (%) (Auto) 0.6, Neutrophils # (Auto) 3.9, Lymphocytes # (Auto) 0.8L, Monocytes # (Auto) 0.4, Eosinophils # (Auto) 0.4, Basophils # (Auto) 0.0, Nucleated Red Blood Cells % (auto) 0.0, Anion Gap 2L, Glomerular Filtration Rate > 60.0, Blood Urea Nitrogen 20#H, Creatinine 0.74, Sodium Level 141, Potassium Level 3.3L, Chloride Level 108H, Carbon Dioxide Level 31, Calcium Level 7.4L Microbiology Microbiology 08/29/18 Urine Culture - Final, Complete Current Medications Current Medications Current Medications Acetaminophen (Tylenol Tab) 1,000 mg TID PO Last administered on 08/31/18 08:17; Start 08/29/18 at 21:00 Albuterol Sulfate (Proventil Neb) 2.5 mg Q2HP PRN NEB SOB/WHEEZING; Start 08/29/18 at 16:45 Albuterol Sulfate (Proventil Neb) 2.5 mg RQID NEB Last administered on 08/30/18at 19:48; Start 08/29/18 at 17:00 Bisacodyl (Dulcolax Suppository) 10 mg DAILYPRN PRN LA CONSTIPATION; Start 08/29/18 at 16:45 Docusate Sodium (Colace) 100 mg BID PO Last administered on 08/31/18 08:17; Start 08/29/18 at 21:00 Ferrous Gluconate (Fergon) 324 mg BID PO Last administered on 08/31/18 08:17; Start 08/29/18 at 21:00 Gabapentin (Neurontin) 100 mg TID PO Last administered on 08/31/18 08:17; Start 08/29/18 at 21:00 Levothyroxine Sodium (Synthroid) 75 mcg DAILY@06 PO Last administered on 08/31/18 06:25; Start 08/30/18 at 06:00 Lisinopril (Prinivil) 5 mg DAILY PO Last administered on 08/31/18 08:18; Start 08/30/18 at 09:00 Magnesium Hydroxide (Milk Of Magnesia) 30 ml DAILYPRN PRN PO CONSTIPATION; Start 08/29/18 at 16:45 Ondansetron HCl (Zofran) 4 mg Q6HP PRN PO NAUSEA; Start 08/29/18 at 16:45 Pantoprazole Sodium (Protonix) 40 mg DAILY PO Last administered on 08/31/18at 08:17; Start 08/30/18 at 09:00 Patient Own Medication (Patient'S Own Med) ZENPEP 10,000: ADMINIS... AC PO Last administered on 08/31/18at 12:12; Start 08/30/18 at 07:30 Patient Own Medication (Patient'S Own Med) ZENPEP 10,000: ADMINIS... ASDIRECTED PRN PO SCACKS Last administered on 08/29/18at 21:07; Start 08/29/18 at 19:45 Rivaroxaban (Xarelto) 20 mg DAILY PO Last administered on 08/31/18at 08:17; Start 08/30/18 at 09:00 Senna (Senokot) 1 tab QHS PO Last administered on 08/30/18at 20:52; Start 08/29/18 at 21:00; Stop 08/31/18 at 10:34; Status DC Senna (Senokot) 1 tab QHSP PO ; Start 08/30/18 at 15:15; Status UNV Senna (Senokot) 2 tab QHS PO ; Start 08/31/18 at 21:00 Senna/Docusate Sodium (Senokot S) 2 tab QHS PO ; Start 08/30/18 at 21:00; Stop 08/30/18 at 21:00; Status DC A-FIB/CHADSVASC A-FIB History Current/History of A-Fib/PAF?: No GENA CEE MD August 31, 2018 14:19
[2018-08-31] MEDS ORDERED: diphenhydrAMINE 25 MG CAP PO ONE (17:00)
[2018-08-31 20:50] VITALS: BP 129/60
[2018-08-31] MEDS: SENNA 8.6 MG TAB (SENOKOT) PO SCH (21:17)
[2018-09-01] MEDS: LEVOTHYROXINE 75MCG TABLET (0.075MG) PO SCH (05:30)
[2018-09-01 06:00] VITALS: BP 158/78
[2018-09-01 07:10] LABS: BASO % 0.7 % (0.0-1.0); EOS # 0.6 10^3/uL (0.0-0.50); EOS % 13.2 % (0.0-3.0); HEMATOCRIT 35.2 % (36.0-47.0); LYMPH # 0.5 10^3/uL (1.5-4.5); LYMPH % 12.3 % (24.0-44.0); MEAN CORPUSCULAR HEMOGLOBIN 28.6 pg (27.0-33.0); MEAN CORPUSCULAR HGB CONC 31.8 g/dl (32.0-36.5); MEAN CORPUSCULAR VOLUME 89.8 fl (80.0-96.0); MONO # 0.2 10^3/uL (0.0-0.8); MONO % 4.6 % (0.0-5.0); PLATELET COUNT, AUTOMATED 165 10^3/uL (150-450); RED BLOOD COUNT 3.92 10^6/uL (4.00-5.40); WHITE BLOOD COUNT 4.4 10^3/uL (4.0-10.0)
[2018-09-01 07:25] LABS: BLOOD UREA NITROGEN 23 MG/DL (7-18); CALCIUM LEVEL 7.9 MG/DL (8.8-10.2); CARBON DIOXIDE LEVEL 29 MEQ/L (21-32); CHLORIDE LEVEL 108 MEQ/L (98-107); CREATININE FOR GFR 0.69 MG/DL (0.55-1.30); GLOMERULAR FILTRATION RATE > 60.0 (>39); GLUCOSE, FASTING 88 MG/DL (70-100); POTASSIUM SERUM 4.2 MEQ/L (3.5-5.1); SODIUM LEVEL 140 MEQ/L (136-145)
[2018-09-01 07:27] LABS: HEMOGLOBIN 11.2 g/dl (12.0-15.5)
[2018-09-01] MEDS: ALBUTEROL SULFATE 2.5 MG/0.5 ML INH NEB SOLN NEB SCH ×4 (07:28→21:42)
[2018-09-01] MEDS: DOCUSATE SODIUM 100 MG CAP PO SCH ×2 (08:11→20:28)
[2018-09-01] MEDS: ACETAMINOPHEN 500 MG TAB PO SCH ×3 (08:11→20:29)
[2018-09-01] MEDS: LISINOPRIL 5 MG TAB PO SCH (08:11)
[2018-09-01] MEDS: ZENPEP PO SCH ×3 (08:11→17:19)
[2018-09-01] MEDS: GABAPENTIN 100 MG CAP PO SCH ×3 (08:12→20:28)
[2018-09-01] MEDS: PANTOPRAZOLE 40MG TAB (PROTONIX) PO SCH (08:12)
[2018-09-01] MEDS: RIVAROXABAN 20 MG TAB (XARELTO) PO SCH (08:12)
[2018-09-01] MEDS: FERROUS GLUCONATE 324 MG TAB PO SCH ×2 (08:12→20:28)
[2018-09-01 14:00] VITALS: BP 128/78
--- NOTE | 2018-09-01 14:15 | IPNPDOC ---
Subjective Date Seen The patient was seen on 09/01/18. Subjective Chief Complaint/HPI Patient is a 78-year-old female, past medical history significant for left hip osteoarthritis, paroxysmal atrial fibrillation on anticoagulation therapy, hypothyroidism, admitted and recently discharged to inpatient rehab unit after left hip arthroplasty Events since last encounter Patient states she was able to have a very large bowel movement. She denies any further complaints. Denies chest pain, denies shortness of breath. Currently working with physical therapy Objective Physical Examination Other physical findings General: Up to chair bedside NAD. Skin: Warm, dry, intact, ecchymosis and discoloration. Cardiovascular: iregular rate and rhythm, systolic murmur, no jugular venous distention, no edema. Respiratory:CTAB, no accessory muscle use noted. Abdomen: Bowel sounds +, no tenderness, no distention Musculoskeletal: No joint deformities. Neurologic: CN 2-12 grossly intact, alert and oriented 3 Psychiatric: Appropriate mood and affect, no anxiety or agitation. A-FIB/CHADSVASC A-FIB History Current/History of A-Fib/PAF?: Yes Current Oral Anticoagulant The: Yes Treatment Treatment ordered: Rivaroxaban Assessment /Plan Assessment Left hip osteoarthritis -S/P total left hip arthroplasty -continued in ARU for rehabilitation, mobilization and strengthening -Management by primary team Paroxysmal atrial fibrillation -maintaining sinus rhythm at a controlled rate -On anticoagulation therapy with xarelto CAD without angina -Continue CAD risk factor modifications -Continue blood pressure control Hypertension -continue lisinopril Asthma - No current evidence of exacerbation Hypothyroidism -Continue Levothyroxine Constipation -resolved Plan/VTE VTE Prophylaxis Ordered?: Yes VS, I&O, 24H, [place] Vital Signs/I&O Vital Signs Date Time Temp Pulse Resp B/P (MAP) Pulse Ox O2 Delivery O2 Flow Rate FiO2 09/01/18 08:11 158/78 09/01/18 06:00 98.1 76 17 95 I&O- Last 24 Hours up to 6 AM 09/01/18 06:00 Intake Total 990 ml Output Total 850 ml Balance 140 ml Laboratory Data 24H LABS Laboratory Tests 2 09/01/18 06:42: Immature Granulocyte % (Auto) 0.2, White Blood Count 4.4, Red Blood Count 3.92L, Hemoglobin 11.2#L, Hematocrit 35.2L, Mean Corpuscular Volume 89.8, Mean Corpuscular Hemoglobin 28.6, Mean Corpuscular Hemoglobin Concent 31.8L, Red Cell Distribution Width 16.2H, Platelet Count 165, Neutrophils (%) (Auto) 69.0H, Ly mphocytes (%) (Auto) 12.3L, Monocytes (%) (Auto) 4.6, Eosinophils (%) (Auto) 13.2H, Basophils (%) (Auto) 0.7, Neutrophils # (Auto) 3.0, Lymphocytes # (Auto) 0.5L, Monocytes # (Auto) 0.2, Eosinophils # (Auto) 0.6H, Basophils # (Auto) 0.0, Nucleated Red Blood Cells % (auto) 0.0, Anion Gap 3L, Glomerular Filtration Rate > 60.0, Blood Urea Nitrogen 23H, Creatinine 0.69, Sodium Level 140, Potassium Level 4.2#, Chloride Level 108H, Carbon Dioxide Level 29, Calcium Level 7.9L CBC/BMP Laboratory Tests 09/01/18 06:42 Red Blood Count 3.92 L, Mean Corpuscular Volume 89.8, Mean Corpuscular Hemoglobin 28.6, Mean Corpuscular Hemoglobin Concent 31.8 L, Red Cell Distribution Width 16.2 H, Neutrophils (%) (Auto) 69.0 H, Lymphocytes (%) (Auto) 12.3 L, Monocytes (%) (Auto) 4.6, Eosinophils (%) (Auto) 13.2 H, Basophils (%) (Auto) 0.7, Neutrophils # (Auto) 3.0, Lymphocytes # (Auto) 0.5 L, Monocytes # (Auto) 0.2, Eosinophils # (Auto) 0.6 H, Basophils # (Auto) 0.0, Calcium Level 7.9 L Microbiology Microbiology 08/29/18 Urine Culture - Final, Complete ADAMSMIRELA Madrigal [facility] September 01, 2018 14:15
[2018-09-01 20:00] VITALS: BP 126/60
[2018-09-01] MEDS: SENNA 8.6 MG TAB (SENOKOT) PO SCH (20:28)
[2018-09-02] MEDS: LEVOTHYROXINE 75MCG TABLET (0.075MG) PO SCH (05:20)
[2018-09-02 05:49] VITALS: BP 148/78
[2018-09-02] MEDS: LISINOPRIL 5 MG TAB PO SCH (07:34)
[2018-09-02] MEDS: RIVAROXABAN 20 MG TAB (XARELTO) PO SCH (07:34)
[2018-09-02] MEDS: PANTOPRAZOLE 40MG TAB (PROTONIX) PO SCH (07:34)
[2018-09-02] MEDS: GABAPENTIN 100 MG CAP PO SCH ×3 (07:34→20:43)
[2018-09-02] MEDS: FERROUS GLUCONATE 324 MG TAB PO SCH ×2 (07:34→20:43)
[2018-09-02] MEDS: ACETAMINOPHEN 500 MG TAB PO SCH ×3 (07:35→20:45)
[2018-09-02] MEDS: DOCUSATE SODIUM 100 MG CAP PO SCH ×2 (07:35→20:45)
[2018-09-02] MEDS: ZENPEP PO SCH ×3 (07:35→17:11)
[2018-09-02] MEDS: ALBUTEROL SULFATE 2.5 MG/0.5 ML INH NEB SOLN NEB SCH ×4 (07:45→19:49)
[2018-09-02] MEDS ORDERED: KETOROLAC 30 MG/ML VIAL (J1885) IM ONE (10:45)
[2018-09-02 14:00] VITALS: BP 159/71
[2018-09-02 20:00] VITALS: BP 141/66
[2018-09-02] MEDS: SENNA 8.6 MG TAB (SENOKOT) PO SCH (20:45)
[2018-09-03] MEDS: LEVOTHYROXINE 75MCG TABLET (0.075MG) PO SCH (05:38)
[2018-09-03 06:00] VITALS: BP 158/88
[2018-09-03] MEDS: ZENPEP PO SCH ×3 (07:35→17:16)
[2018-09-03] MEDS: ALBUTEROL SULFATE 2.5 MG/0.5 ML INH NEB SOLN NEB SCH ×3 (07:53→20:00)
[2018-09-03] MEDS: PANTOPRAZOLE 40MG TAB (PROTONIX) PO SCH (08:04)
[2018-09-03] MEDS: GABAPENTIN 100 MG CAP PO SCH (08:04)
[2018-09-03] MEDS: RIVAROXABAN 20 MG TAB (XARELTO) PO SCH (08:04)
[2018-09-03] MEDS: LISINOPRIL 5 MG TAB PO SCH (08:04)
[2018-09-03] MEDS: ACETAMINOPHEN 500 MG TAB PO SCH ×3 (08:04→20:20)
[2018-09-03] MEDS: FERROUS GLUCONATE 324 MG TAB PO SCH ×2 (08:04→20:20)
[2018-09-03] MEDS: DOCUSATE SODIUM 100 MG CAP PO SCH ×2 (08:04→20:20)
--- NOTE | 2018-09-03 10:41 | IPNPDOC ---
PM&R Progress Note Varnish Inspector Progress Note d/c gabapentin, recheck UA lasix and cymbalta DATE OF ADMISSION: August 29, 2018 at 14:15 INPATIENT REHABILITATION ADMISSION DAY: # SUBJECTIVE: Patient is a -year-old with . ALLERGIES: See Below MEDICATIONS: Reviewed, see below. OBJECTIVE: VITAL SIGNS: Please see below. PHYSICAL EXAMINATION: GENERAL: [Cachectic, well developed, sitting up in bed, no acute distress]. HEENT: [Normocephalic, atraumatic]. [No facial droop]. [Poor dentition, missing teeth. PERRL, EOMI]. CARDIOVASCULAR: [S1, S2, irregular rate]. [No lower limb edema or calf tenderness]. LUNGS: [Decreased breath sounds, coarse throughout]. ABDOMEN: [Soft, nontender, nondistended. Normoactive bowel sounds throughout]. MUSCULOSKELETAL: MMT: /5 strength proximally bilateral shoulder abduction, forward flexion and bilateral hip flexion. /5 strength bilateral elbow flexion, knee flexion, /5 bilateral elbow extension and knee extension. /5 industrial garage servicer, dorsiflexion, plantar flexion. NEUROLOGICAL: [Alert and oriented times three]. [Answers all question appropriately]. SKIN: . LABORATORY DATA: Reviewed. Please see below. MICROBIOLOGY: Please see below. IMAGING: ASSESSMENT AND PLAN: 1. . 2. . 3. . TIME SPENT: Chart Review, examination and documentation minutes. Allergies Coded Allergies: adhesive (Verified Allergy, Unknown, tears skin, 08/13/18) atorvastatin (Verified Allergy, Unknown, mulscle pain /hives, 08/13/18) rosuvastatin (Verified Allergy, Unknown, muscle pain, 08/13/18) tramadol (Verified Allergy, Unknown, took 2 and had hypertention went to ER, 08/13/18) gabapentin (Verified Adverse Reaction, Unknown, 09/03/18) visual hallucinations Vital Signs Vital Signs Date Time Temp Pulse Resp B/P (MAP) Pulse Ox O2 Delivery O2 Flow Rate FiO2 09/03/18 08:04 158/88 09/03/18 06:00 98.1 68 18 96 Microbiology Microbiology 08/29/18 Urine Culture - Final, Complete Current Medications Current Medications Current Medications Acetaminophen (Tylenol Tab) 1,000 mg TID PO Last administered on 09/03/18at 08:04; Start 08/29/18 at 21:00 Albuterol Sulfate (Proventil Neb) 2.5 mg Q2HP PRN NEB SOB/WHEEZING; Start 08/29/18 at 16:45 Albuterol Sulfate (Proventil Neb) 2.5 mg RQID NEB Last administered on 09/03/18 07:53; Start 08/29/18 at 17:00 Bisacodyl (Dulcolax Suppository) 10 mg DAILYPRN PRN NE CONSTIPATION; Start 08/29/18 at 16:45 Docusate Sodium (Colace) 100 mg BID PO Last administered on 09/03/18 08:04; S tart 08/29/18 at 21:00 Ferrous Gluconate (Fergon) 324 mg BID PO Last administered on 09/03/18 08:04; Start 08/29/18 at 21:00 Gabapentin (Neurontin) 100 mg TID PO Last administered on 09/02/18 20:43; Start 08/29/18 at 21:00 Levothyroxine Sodium (Synthroid) 75 mcg DAILY@06 PO Last administered on 09/03/18 05:38; Start 08/30/18 at 06:00 Lisinopril (Prinivil) 5 mg DAILY PO Last administered on 09/03/18 08:04; Start 08/30/18 at 09:00 Magnesium Hydroxide (Milk Of Magnesia) 30 ml DAILYPRN PRN PO CONSTIPATION; Start 08/29/18 at 16:45 Ondansetron HCl (Zofran) 4 mg Q6HP PRN PO NAUSEA; Start 08/29/18 at 16:45 Pantoprazole Sodium (Protonix) 40 mg DAILY PO Last administered on 09/03/18 08:04; Start 08/30/18 at 09:00 Patient Own Medication (Patient'S Own Med) ZENPEP 10,000: ADMINIS... AC PO Last administered on 09/03/18 07:35; Start 08/30/18 at 07:30 Patient Own Medication (Patient'S Own Med) ZENPEP 10,000: ADMINIS... ASDIRECTED PRN PO SCACKS Last administered on 08/29/18 21:07; Start 08/29/18 at 19:45 Rivaroxaban (Xarelto) 20 mg DAILY PO Last administered on 09/03/18 08:04; Start 08/30/18 at 09:00 Senna (Senokot) 1 tab QHS PO Last administered on 08/30/18at 20:52; Start 08/29/18 at 21:00; Stop 08/31/18 at 10:34; Status DC Senna (Senokot) 1 tab QHSP PO ; Start 08/30/18 at 15:15; Status UNV Senna (Senokot) 2 tab QHS PO Last administered on 09/01/18at 20:28; Start 08/31/18 at 21:00 Senna/Docusate Sodium (Senokot S) 2 tab QHS PO ; Start 08/30/18 at 21:00; Stop 08/30/18 at 21:00; Status DC GENA CEE MD September 03, 2018 10:41
[2018-09-03 14:00] VITALS: BP 145/72
[2018-09-03] MEDS: DULoxetine 30 MG CAP (CYMBALTA) PO SCH (14:15)
[2018-09-03] MEDS: FUROSEMIDE 20 MG TAB PO SCH (14:15)
[2018-09-03] MEDS: ONDANSETRON 4 MG TAB (S0181) PO PRN (16:10)
[2018-09-03 20:00] VITALS: BP 114/55
[2018-09-03] MEDS: SENNA 8.6 MG TAB (SENOKOT) PO SCH (20:19)
[2018-09-04] MEDS: ACETAMINOPHEN TAB 650MG DOSE (2X325MG) PO PRN (05:49)
[2018-09-04] MEDS: LEVOTHYROXINE 75MCG TABLET (0.075MG) PO SCH (05:49)
[2018-09-04 06:00] VITALS: BP 167/73
[2018-09-04 07:03] LABS: BASO % 0.9 % (0.0-1.0); EOS # 0.8 10^3/uL (0.0-0.50); EOS % 17.9 % (0.0-3.0); HEMOGLOBIN 8.7 g/dl (12.0-15.5); LYMPH # 0.8 10^3/uL (1.5-4.5); LYMPH % 18.6 % (24.0-44.0); MEAN CORPUSCULAR HEMOGLOBIN 28.1 pg (27.0-33.0); MEAN CORPUSCULAR HGB CONC 31.1 g/dl (32.0-36.5); MEAN CORPUSCULAR VOLUME 90.3 fl (80.0-96.0); MONO # 0.4 10^3/uL (0.0-0.8); MONO % 7.9 % (0.0-5.0); NEUTROPHILS # 2.4 10^3/uL (1.8-7.7); NEUTROPHILS % 54.5 % (36.0-66.0); PLATELET COUNT, AUTOMATED 205 10^3/uL (150-450); WHITE BLOOD COUNT 4.4 10^3/uL (4.0-10.0)
[2018-09-04 07:23] LABS: BLOOD UREA NITROGEN 18 MG/DL (7-18); CALCIUM LEVEL 7.9 MG/DL (8.8-10.2); CARBON DIOXIDE LEVEL 27 MEQ/L (21-32); CHLORIDE LEVEL 109 MEQ/L (98-107); GLOMERULAR FILTRATION RATE > 60.0 (>39); GLUCOSE, FASTING 93 MG/DL (70-100); POTASSIUM SERUM 4.4 MEQ/L (3.5-5.1); SODIUM LEVEL 140 MEQ/L (136-145)
[2018-09-04] MEDS: ZENPEP PO SCH ×3 (07:48→17:24)
[2018-09-04] MEDS: ALBUTEROL SULFATE 2.5 MG/0.5 ML INH NEB SOLN NEB SCH ×4 (08:08→19:54)
[2018-09-04] MEDS: FERROUS GLUCONATE 324 MG TAB PO SCH ×2 (08:26→20:32)
[2018-09-04] MEDS: RIVAROXABAN 20 MG TAB (XARELTO) PO SCH (08:26)
[2018-09-04] MEDS: FUROSEMIDE 20 MG TAB PO SCH (08:26)
[2018-09-04] MEDS: DULoxetine 30 MG CAP (CYMBALTA) PO SCH (08:26)
[2018-09-04] MEDS: LISINOPRIL 5 MG TAB PO SCH (08:27)
[2018-09-04] MEDS: PANTOPRAZOLE 40MG TAB (PROTONIX) PO SCH (08:27)
[2018-09-04] MEDS: DOCUSATE SODIUM 100 MG CAP PO SCH ×2 (08:27→20:32)
[2018-09-04] MEDS: ACETAMINOPHEN 500 MG TAB PO SCH ×3 (08:27→21:00)
[2018-09-04] MEDS: ONDANSETRON 4 MG TAB (S0181) PO PRN (11:32)
[2018-09-04 14:00] VITALS: BP 134/63
[2018-09-04 20:00] VITALS: BP 123/58
[2018-09-04] MEDS: SENNA 8.6 MG TAB (SENOKOT) PO SCH (20:32)
[2018-09-05 06:00] VITALS: BP 146/78
[2018-09-05] MEDS: LEVOTHYROXINE 75MCG TABLET (0.075MG) PO SCH (06:02)
[2018-09-05] MEDS: ACETAMINOPHEN TAB 650MG DOSE (2X325MG) PO PRN (06:03)
[2018-09-05 07:09] LABS: EOS # 0.7 10^3/uL (0.0-0.50); HEMATOCRIT 28.9 % (36.0-47.0); HEMOGLOBIN 9.2 g/dl (12.0-15.5); LYMPH # 0.8 10^3/uL (1.5-4.5); LYMPH % 19.9 % (24.0-44.0); MEAN CORPUSCULAR HEMOGLOBIN 28.9 pg (27.0-33.0); MEAN CORPUSCULAR HGB CONC 31.8 g/dl (32.0-36.5); MEAN CORPUSCULAR VOLUME 90.9 fl (80.0-96.0); MONO # 0.3 10^3/uL (0.0-0.8); MONO % 7.9 % (0.0-5.0); NEUTROPHILS # 2.2 10^3/uL (1.8-7.7); PLATELET COUNT, AUTOMATED 228 10^3/uL (150-450); RED BLOOD COUNT 3.18 10^6/uL (4.00-5.40); WHITE BLOOD COUNT 4.1 10^3/uL (4.0-10.0)
[2018-09-05] MEDS: ALBUTEROL SULFATE 2.5 MG/0.5 ML INH NEB SOLN NEB SCH ×4 (08:23→20:00)
[2018-09-05] MEDS: FUROSEMIDE 20 MG TAB PO SCH (08:37)
[2018-09-05] MEDS: ZENPEP PO SCH ×3 (08:37→17:35)
[2018-09-05] MEDS: ACETAMINOPHEN 500 MG TAB PO SCH ×3 (08:37→20:08)
[2018-09-05 08:38] VITALS: BP 146/78
[2018-09-05] MEDS: DULoxetine 30 MG CAP (CYMBALTA) PO SCH ×2 (08:38→08:42)
[2018-09-05] MEDS: RIVAROXABAN 20 MG TAB (XARELTO) PO SCH (08:38)
[2018-09-05] MEDS: LISINOPRIL 5 MG TAB PO SCH (08:38)
[2018-09-05] MEDS: DOCUSATE SODIUM 100 MG CAP PO SCH ×2 (08:38→20:08)
[2018-09-05] MEDS: FERROUS GLUCONATE 324 MG TAB PO SCH ×2 (08:38→20:07)
[2018-09-05] MEDS: PANTOPRAZOLE 40MG TAB (PROTONIX) PO SCH (08:38)
[2018-09-05] MEDS ORDERED: XARE20TA PO (12:55)
[2018-09-05] MEDS ORDERED: FERR32TA PO (12:55)
[2018-09-05] MEDS ORDERED: FURO20TA2 PO (12:55)
[2018-09-05] MEDS ORDERED: SPIR-10 PO (12:55)
[2018-09-05] MEDS ORDERED: LEVO75TA4 PO (12:55)
[2018-09-05 14:00] VITALS: BP 114/65
[2018-09-05] MEDS: SPIRONOLACTONE 25 MG TAB PO SCH (16:00)
[2018-09-05 20:00] VITALS: BP 118/62
[2018-09-05] MEDS: SENNA 8.6 MG TAB (SENOKOT) PO SCH (20:08)
[2018-09-06] MEDS: LEVOTHYROXINE 75MCG TABLET (0.075MG) PO SCH (05:28)
[2018-09-06 05:30] VITALS: BP 148/71
[2018-09-06] MEDS: FUROSEMIDE 20 MG TAB PO SCH (07:43)
[2018-09-06] MEDS: ZENPEP PO SCH ×3 (07:43→16:37)
[2018-09-06] MEDS: DOCUSATE SODIUM 100 MG CAP PO SCH ×3 (07:44→21:48)
[2018-09-06] MEDS: SPIRONOLACTONE 25 MG TAB PO SCH ×2 (07:44→16:37)
[2018-09-06] MEDS: RIVAROXABAN 20 MG TAB (XARELTO) PO SCH (07:44)
[2018-09-06] MEDS: FERROUS GLUCONATE 324 MG TAB PO SCH ×2 (07:44→21:49)
[2018-09-06] MEDS: ACETAMINOPHEN 500 MG TAB PO SCH ×3 (07:44→21:48)
[2018-09-06] MEDS: PANTOPRAZOLE 40MG TAB (PROTONIX) PO SCH (07:44)
[2018-09-06] MEDS: ALBUTEROL SULFATE 2.5 MG/0.5 ML INH NEB SOLN NEB SCH ×4 (07:52→20:00)
--- NOTE | 2018-09-06 10:08 | IPNPDOC ---
PM&R Progress Note DATE OF SERVICE: September 05, 2018 Logistics Solution Manager Progress Note DATE OF ADMISSION: August 29, 2018 at 14:15 INPATIENT REHABILITATION ADMISSION DAY: # SUBJECTIVE: Patient is a -year-old with . ALLERGIES: See Below MEDICATIONS: Reviewed, see below. OBJECTIVE: VITAL SIGNS: Please see below. PHYSICAL EXAMINATION: GENERAL: [Cachectic, well developed, sitting up in bed, no acute distress]. HEENT: [Normocephalic, atraumatic]. [No facial droop]. [Poor dentition, missing teeth. PERRL, EOMI]. CARDIOVASCULAR: [S1, S2, irregular rate]. [No lower limb edema or calf tenderness]. LUNGS: [Decreased breath sounds, coarse throughout]. ABDOMEN: [Soft, nontender, nondistended. Normoactive bowel sounds throughout]. MUSCULOSKELETAL: MMT: /5 strength proximally bilateral shoulder abduction, forward flexion and bilateral hip flexion. /5 strength bilateral elbow flexion, knee flexion, /5 bilateral elbow extension and knee extension. /5 pyrotechnic mixer, dorsiflexion, plantar flexion. NEUROLOGICAL: [Alert and oriented times three]. [Answers all question appropriately]. SKIN: . LABORATORY DATA: Reviewed. Please see below. MICROBIOLOGY: Please see below. IMAGING: ASSESSMENT AND PLAN: 1. . 2. . 3. . TIME SPENT: Chart Review, examination and documentation minutes. Allergies Coded Allergies: adhesive (Verified Allergy, Unknown, tears skin, 08/13/18) atorvastatin (Verified Allergy, Unknown, mulscle pain /hives, 08/13/18) rosuvastatin (Verified Allergy, Unknown, muscle pain, 08/13/18) tramadol (Verified Allergy, Unknown, took 2 and had hypertention went to ER, 08/13/18) gabapentin (Verified Adverse Reaction, Unknown, 09/03/18) visual hallucinations Vital Signs Vital Signs Date Time Temp Pulse Resp B/P (MAP) Pulse Ox O2 Delivery O2 Flow Rate FiO2 09/06/18 05:30 98.8 80 18 148/71 (96) 94 Microbiology Microbiology 09/05/18 Stool Occult Blood (YUKI) - Final, Complete 09/03/18 Urine Culture - Final, Complete 08/29/18 Urine Culture - Final, Complete Current Medications Current Medications Current Medications Acetaminophen (Tylenol Tab) 650 mg Q24H PRN PO PAIN OR FEVER Last administered on 5/8/19at 06:03; Start 09/03/18 at 14:15 Acetaminophen (Tylenol Tab) 1,000 mg TID PO Last administered on 09/06/18 07:44; Start 08/29/18 at 21:00 Albuterol Sulfate (Proventil Neb) 2.5 mg Q2HP PRN NEB SOB/WHEEZING; Start 08/29/18 at 16:45 Albuterol Sulfate (Proventil Neb) 2.5 mg RQID NEB Last administered on 09/06/18 07:52; Start 08/29/18 at 17:00 Bisacodyl (Dulcolax Suppository) 10 mg DAILYPRN PRN RI CONSTIPATION; Start 08/29/18 at 16:45 Docusate Sodium (Colace) 100 mg BID PO Last administered on 09/05/18 08:38; Start 08/29/18 at 21:00 Duloxetine HCl (Cymbalta) 30 mg DAILY PO Last administered on 09/04/18 08:26; Start 09/03/18 at 09:00; Stop 09/05/18 at 12:56; Status DC Ferrous Gluconate (Fergon) 324 mg BID PO Last administered on 09/06/18 07:44; Start 08/29/18 at 21:00 Furosemide (Lasix) 20 mg DAILY PO Last administered on 09/06/18 07:43; Start 09/03/18 at 09:00 Gabapentin (Neurontin) 100 mg TID PO Last administered on 09/02/18 20:43; Start 08/29/18 at 21:00; Stop 09/03/18 at 13:52; Status DC Levothyroxine Sodium (Synthroid) 75 mcg DAILY@06 PO Last administered on 09/06/18 05:28; Start 08/30/18 at 06:00 Lisinopril (Prinivil) 5 mg DAILY PO Last administered on 09/05/18 08:38; Start 08/30/18 at 09:00; Stop 09/05/18 at 12:56; Status DC Magnesium Hydroxide (Milk Of Magnesia) 30 ml DAILYPRN PRN PO CONSTIPATION; Start 08/29/18 at 16:45 Ondansetron HCl (Zofran) 4 mg Q6HP PRN PO NAUSEA Last administered on 09/04/18 11:32; Start 08/29/18 at 16:45 Pantoprazole Sodium (Protonix) 40 mg DAILY PO Last administered on 09/06/18 07:44; Start 08/30/18 at 09:00 Patient Own Medication (Patient'S Own Med) ZENPEP 10,000: ADMINIS... AC PO Last administered on 09/06/18 07:43; Start 08/30/18 at 07:30 Patient Own Medication (Patient'S Own Med) ZENPEP 10,000: ADMINIS... ASDIRECTED PRN PO SCACKS Last administered on 08/29/18 21:07; Start 08/29/18 at 19:45 Rivaroxaban (Xarelto) 20 mg DAILY PO Last administered on 09/06/18at 07:44; Start 08/30/18 at 09:00 Senna (Senokot) 1 tab QHS PO Last administered on 08/30/18at 20:52; Start 08/29/18 at 21:00; Stop 08/31/18 at 10:34; Status DC Senna (Senokot) 1 tab QHSP PO ; Start 08/30/18 at 15:15; Status UNV Senna (Senokot) 2 tab QHS PO Last administered on 09/04/18at 20:32; Start 08/31/18 at 21:00 Senna/Docusate Sodium (Senokot S) 2 tab QHS PO ; Start 08/30/18 at 21:00; Stop 08/30/18 at 21:00; Status DC Spironolactone (Aldactone) 25 mg BID@ PO Last administered on 09/06/18at 07:44; Start 09/05/18 at 17:00 GENA CEE MD September 06, 2018 10:08
[2018-09-06 14:00] VITALS: BP 130/60
[2018-09-06 20:00] VITALS: BP 114/86
[2018-09-06] MEDS: SENNA 8.6 MG TAB (SENOKOT) PO SCH ×2 (21:00→21:49)
[2018-09-07 04:45] VITALS: BP 128/76
[2018-09-07] MEDS: LEVOTHYROXINE 75MCG TABLET (0.075MG) PO SCH (06:01)
[2018-09-07] MEDS: ALBUTEROL SULFATE 2.5 MG/0.5 ML INH NEB SOLN NEB SCH ×4 (07:05→20:00)
[2018-09-07] MEDS: SPIRONOLACTONE 25 MG TAB PO SCH ×2 (08:18→16:41)
[2018-09-07] MEDS: PANTOPRAZOLE 40MG TAB (PROTONIX) PO SCH (08:18)
[2018-09-07] MEDS: FERROUS GLUCONATE 324 MG TAB PO SCH ×2 (08:18→21:18)
[2018-09-07] MEDS: RIVAROXABAN 20 MG TAB (XARELTO) PO SCH (08:18)
[2018-09-07] MEDS: FUROSEMIDE 20 MG TAB PO SCH (08:18)
[2018-09-07] MEDS: ZENPEP PO SCH ×3 (08:19→16:41)
[2018-09-07] MEDS: DOCUSATE SODIUM 100 MG CAP PO SCH ×2 (08:19→21:17)
[2018-09-07] MEDS: ACETAMINOPHEN 500 MG TAB PO SCH ×3 (08:19→21:17)
[2018-09-07 14:00] VITALS: BP 147/66
[2018-09-07 20:00] VITALS: BP 139/62
[2018-09-07] MEDS: SENNA 8.6 MG TAB (SENOKOT) PO SCH (21:00)
[2018-09-08] MEDS: ACETAMINOPHEN TAB 650MG DOSE (2X325MG) PO PRN (00:13)
[2018-09-08] MEDS: LEVOTHYROXINE 75MCG TABLET (0.075MG) PO SCH (05:40)
[2018-09-08 06:00] VITALS: BP 180/90
[2018-09-08 06:05] VITALS: BP 165/80
[2018-09-08] MEDS: ALBUTEROL SULFATE 2.5 MG/0.5 ML INH NEB SOLN NEB SCH ×2 (08:00→12:00)
[2018-09-08] MEDS: PANTOPRAZOLE 40MG TAB (PROTONIX) PO SCH (08:28)
[2018-09-08] MEDS: RIVAROXABAN 20 MG TAB (XARELTO) PO SCH (08:28)
[2018-09-08] MEDS: ZENPEP PO SCH (08:28)
[2018-09-08] MEDS: FERROUS GLUCONATE 324 MG TAB PO SCH (08:29)
[2018-09-08] MEDS: SPIRONOLACTONE 25 MG TAB PO SCH (08:29)
[2018-09-08] MEDS: ACETAMINOPHEN 500 MG TAB PO SCH (08:29)
[2018-09-08] MEDS: FUROSEMIDE 20 MG TAB PO SCH (08:29)
[2018-09-08] MEDS: DOCUSATE SODIUM 100 MG CAP PO SCH (08:30)
== END 2018-09-08 10:40 | disposition home or self-care (01) | DRG 560 ==
LOC: M PM&R 14:15
PROVIDERS: ADMIT Physical Medicine & Rehabilitation; ATTEND Physical Medicine & Rehabilitation
PROC: 30233N1 Transfusion of Nonautologous Red Blood Cells into Peripheral Vein, Percutaneous Approach (ICD-10-PCS; principal; 2018-08-31)
DX: Z47.1 Aftercare following joint replacement surgery (principal); I50.32 Chronic diastolic (congestive) heart failure; R26.9 Unspecified abnormalities of gait and mobility; I48.0 Paroxysmal atrial fibrillation; I25.10 Atherosclerotic heart disease of native coronary artery without angina pectoris; I34.1 Nonrheumatic mitral (valve) prolapse; E03.9 Hypothyroidism, unspecified; N18.9 Chronic kidney disease, unspecified; J45.909 Unspecified asthma, uncomplicated; R53.1 Weakness; K59.00 Constipation, unspecified; D50.0 Iron deficiency anemia secondary to blood loss (chronic); Z86.718 Personal history of other venous thrombosis and embolism; Z85.00 Personal history of malignant neoplasm of unspecified digestive organ; Z90.49 Acquired absence of other specified parts of digestive tract; Z95.5 Presence of coronary angioplasty implant and graft; Z85.41 Personal history of malignant neoplasm of cervix uteri; Z96.643 Presence of artificial hip joint, bilateral; Z90.710 Acquired absence of both cervix and uterus; Z87.891 Personal history of nicotine dependence; Z79.01 Long term (current) use of anticoagulants; Z79.899 Other long term (current) drug therapy; Z88.8 Allergy status to other drugs, medicaments and biological substances; Z88.5 Allergy status to narcotic agent; Z91.048 Other nonmedicinal substance allergy status

== ENCOUNTER → 2018-09-14 | Outpatient (CLI) | payer MEDICARE, OTHER ==
[~2018-09-14] MED LIST changes: +FERR32TA PO
--- NOTE | 2018-09-14 12:17 | REP ---
Duplex extremity venous ultrasound: Left lower extremity. History: Left leg swelling. Post hip surgery. Question DVT. Findings: The deep veins are anechoic and fully compressible from the groin to the popliteal fossa in the left lower extremity. Color flow imaging is homogeneous. Spectral Doppler interrogation demonstrates intact respiratory variation in flow and normal manual augmentation of flow. There is no evidence of deep vein thrombosis. Impression: Negative left lower extremity duplex venous ultrasound. No evidence of deep vein thrombosis. Electronically Signed by Palmer Redd MD 09/14/2018 12:09 P
== END ==
LOC: M RAD 11:16
PROVIDERS: ATTEND Physician Assistant
DX: R60.0 Localized edema (principal)

== ENCOUNTER → 2018-10-02 | Outpatient (REF) | payer MEDICARE, OTHER ==
[2018-10-02 11:55] LABS: BASO # 0.1 10^3/uL (0.0-0.2); EOS # 0.5 10^3/uL (0.0-0.50); EOS % 9.3 % (0.0-3.0); HEMATOCRIT 29.6 % (36.0-47.0); HEMOGLOBIN 9.3 g/dl (12.0-15.5); LYMPH # 1.4 10^3/uL (1.5-4.5); LYMPH % 27.5 % (24.0-44.0); MEAN CORPUSCULAR HEMOGLOBIN 29.8 pg (27.0-33.0); MEAN CORPUSCULAR HGB CONC 31.4 g/dl (32.0-36.5); MEAN CORPUSCULAR VOLUME 94.9 fl (80.0-96.0); MONO # 0.3 10^3/uL (0.0-0.8); MONO % 6.9 % (0.0-5.0); NEUTROPHILS # 2.7 10^3/uL (1.8-7.7); NEUTROPHILS % 54.9 % (36.0-66.0); PLATELET COUNT, AUTOMATED 248 10^3/uL (150-450); RED BLOOD COUNT 3.12 10^6/uL (4.00-5.40); WHITE BLOOD COUNT 4.9 10^3/uL (4.0-10.0)
[2018-10-02 13:01] LABS: ALT/SGPT 19 U/L (12-78); BILIRUBIN,TOTAL 0.2 MG/DL (0.2-1.0); BLOOD UREA NITROGEN 19 MG/DL (7-18); CALCIUM LEVEL 8.4 MG/DL (8.8-10.2); CARBON DIOXIDE LEVEL 21 MEQ/L (21-32); CHLORIDE LEVEL 112 MEQ/L (98-107); CHOLESTEROL LEVEL 175 MG/DL (<200); GLOMERULAR FILTRATION RATE > 60.0 (>39); GLUCOSE, FASTING 88 MG/DL (70-100); HDL CHOLESTEROL 81 MG/DL (>40); LDL CHOLESTEROL 81 MG/DL (<100); NON-HDL-C 94 MG/DL; POTASSIUM SERUM 4.1 MEQ/L (3.5-5.1); SODIUM LEVEL 142 MEQ/L (136-145); TOTAL 25(OH) VITAMIN D 73.1 NG/ML (30.0-100.0); TOTAL PROTEIN 7.4 GM/DL (6.4-8.2); TRIGLYCERIDES LEVEL 67 MG/DL (<150); VITAMIN B12 LEVEL 626 PG/ML (247-911)
== END ==
LOC: M LABDRAW1 09:28
PROVIDERS: ATTEND Family Medicine
DX: I48.0 Paroxysmal atrial fibrillation (principal); E53.9 Vitamin B deficiency, unspecified; E55.9 Vitamin D deficiency, unspecified; E43 Unspecified severe protein-calorie malnutrition

== ENCOUNTER → 2018-12-25 | Outpatient (CLI) | payer MEDICARE, OTHER ==
[2018-12-25 13:23] LABS: BASO # 0.1 10^3/uL (0.0-0.2); BASO % 1.2 % (0.0-1.0); EOS # 0.5 10^3/uL (0.0-0.50); EOS % 12.2 % (0.0-3.0); HEMATOCRIT 34.8 % (36.0-47.0); HEMOGLOBIN 11.1 g/dl (12.0-15.5); LYMPH # 1.1 10^3/uL (1.5-4.5); LYMPH % 25.7 % (24.0-44.0); MEAN CORPUSCULAR HEMOGLOBIN 29.6 pg (27.0-33.0); MEAN CORPUSCULAR HGB CONC 31.9 g/dl (32.0-36.5); MEAN CORPUSCULAR VOLUME 92.8 fl (80.0-96.0); MONO # 0.2 10^3/uL (0.0-0.8); MONO % 5.5 % (0.0-5.0); NEUTROPHILS # 2.3 10^3/uL (1.8-7.7); NEUTROPHILS % 55.4 % (36.0-66.0); PLATELET COUNT, AUTOMATED 208 10^3/uL (150-450); RED BLOOD COUNT 3.75 10^6/uL (4.00-5.40); WHITE BLOOD COUNT 4.2 10^3/uL (4.0-10.0)
[2018-12-25 13:30] LABS: FOLATE 13.1 NG/ML (>5.4)
== END ==
LOC: M SMT 09:55
PROVIDERS: ATTEND Physician Assistant
DX: E53.9 Vitamin B deficiency, unspecified (principal)

== ENCOUNTER 2019-01-20 15:29 | Emergency (ER) | payer MEDICARE, OTHER ==
[~2019-01-20] VITALS: Ht 144.8 cm; Wt 48.3 kg
[~2019-01-20 15:29] MED LIST changes: -BISO5TAB5 PO; +BISO5TAB9 PO
[2019-01-20] MEDS ORDERED: FLUTISP (15:46)
[2019-01-20] MEDS ORDERED: VITA500045 (15:46)
[2019-01-20] MEDS ORDERED: ACETAMINOPHEN 325 MG TAB PO ONE (16:00)
[2019-01-20 16:16] LABS: BASO % 0.9 % (0.0-1.0); EOS # 0.7 10^3/uL (0.0-0.5); EOS % 15.3 % (0.0-3.0); HEMATOCRIT 34.7 % (36.0-47.0); HEMOGLOBIN 11.2 g/dl (12.0-15.5); LYMPH # 1.3 10^3/uL (1.5-5.0); LYMPH % 27.2 % (24.0-44.0); MEAN CORPUSCULAR HEMOGLOBIN 30.1 pg (27.0-33.0); MEAN CORPUSCULAR HGB CONC 32.3 g/dl (32.0-36.5); MEAN CORPUSCULAR VOLUME 93.3 fl (80.0-96.0); MONO # 0.3 10^3/uL (0.0-0.8); MONO % 6.9 % (0.0-5.0); NEUTROPHILS # 2.3 10^3/uL (1.5-8.5); NEUTROPHILS % 49.5 % (36.0-66.0); PLATELET COUNT, AUTOMATED 188 10^3/uL (150-450); RED BLOOD COUNT 3.72 10^6/uL (4.00-5.40); WHITE BLOOD COUNT 4.6 10^3/uL (4.0-10.0)
--- NOTE | 2019-01-20 16:39 | ECGEPIP ---
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
[2019-01-20 17:04] LABS: ALBUMIN 3.1 GM/DL (3.2-5.2); ALT/SGPT 23 U/L (12-78); BILIRUBIN,DIRECT < 0.1 MG/DL (0.0-0.2); BILIRUBIN,TOTAL 0.3 MG/DL (0.2-1.0); BLOOD UREA NITROGEN 13 MG/DL (7-18); CALCIUM LEVEL 8.4 MG/DL (8.8-10.2); CARBON DIOXIDE LEVEL 26 MEQ/L (21-32); CHLORIDE LEVEL 107 MEQ/L (98-107); CK-MB VALUE MASS 1.8 NG/ML (<3.6); CPK CREATINE PHOSPHOKINASE 138 U/L (26-192); CREATININE FOR GFR 0.85 MG/DL (0.55-1.30); GLOMERULAR FILTRATION RATE > 60.0 (>39); GLUCOSE, FASTING 98 MG/DL (70-100); LIPASE < 10 U/L (73-393); NT-PRO BNP 1258 PG/ML (<450); POTASSIUM SERUM 4.6 MEQ/L (3.5-5.1); SODIUM LEVEL 141 MEQ/L (136-145); TOTAL PROTEIN 6.8 GM/DL (6.4-8.2); TROPONIN I < 0.02 NG/ML (< 0.10)
[2019-01-20] MEDS ORDERED: ISOVUE-370 76% 100ML VIAL (Q9967) As Ordered ONE (17:15)
--- NOTE | 2019-01-20 17:47 | REPVR ---
PROCEDURE INFORMATION: Exam: CT Angiography Chest With Contrast Exam date and time: 01/20/2019 5:19 PM Clinical history: 78 years old, female; Chest pain; Type not specified TECHNIQUE: Imaging protocol: Computed tomographic angiography of the chest with intravenous contrast. 3D rendering: MIP reconstructed images were created and reviewed. Radiation optimization: All CT scans at this facility use at least one of these dose optimization techniques: automated exposure control; mA and/or kV adjustment per patient size (includes targeted exams where dose is matched to clinical indication); or iterative reconstruction. Contrast material: ISOVUE 370; Contrast volume: 75 ml; Contrast route: IV; COMPARISON: CT ANGIO CHEST 02/18/2018 11:36 AM FINDINGS: Pulmonary arteries: No focal pulmonary artery filling defect to suggest acute pulmonary embolus. Great vessels off aortic arch: Atherosclerotic calcifications in the coronary vessels. Aorta: Thoracic aorta is tortuous without focal aneurysm or dissection. Lungs: Pulmonary vascular/interstitial pattern does not suggest active pulmonary edema. No suspicious lung mass or air space process. No central endobronchial lesion. Atelectasis in the medial posterior left lung base with partial airway filling. Pleural space: No pleural effusion or pneumothorax. Heart: Prominent heart size. No pericardial effusion. Gallbladder and bile ducts: Gallstones are present in the gallbladder lumen. No adjacent fluid or duct dilatation. Stomach and bowel: Gastric bypass suture lines are present in the upper abdomen Lymph nodes: No enlarged mediastinal lymph nodes. Bones/joints: Thoracic spine degenerative changes, and multilevel old, stable thoracic spine insufficiency fractures Soft tissues: Unremarkable. IMPRESSION: 1. No evidence of acute pulmonary embolus. 2. Stable, chronic appearing atelectasis, medial left lung base, unchanged in appearance since 02/18/2018. 3. Cholelithiasis Electronically signed by: Magno Nieto On 01/20/2019 17:47:00 PM
[2019-01-20 18:15] VITALS: BP 184/76
--- NOTE | 2019-01-21 07:35 | REP ---
CHEST, PORTABLE: AP portable view of the chest is performed and compared to prior study of 08/08/2018. There is no acute infiltrate. There is left ventricular prominence. There is calcification of the thoracic aorta. IMPRESSION: No acute infiltrate or pulmonary edema. Electronically Signed by Neto Larson MD 01/22/2019 09:46 A
== END 2019-01-20 18:43 | disposition home or self-care (01) ==
LOC: M ED 15:29
DX: J98.11 Atelectasis (principal); R07.9 Chest pain, unspecified; K80.80 Other cholelithiasis without obstruction; J45.909 Unspecified asthma, uncomplicated; N18.9 Chronic kidney disease, unspecified; Z79.51 Long term (current) use of inhaled steroids; Z79.899 Other long term (current) drug therapy; Z86.79 Personal history of other diseases of the circulatory system; Z87.891 Personal history of nicotine dependence; Z88.8 Allergy status to other drugs, medicaments and biological substances; Z91.048 Other nonmedicinal substance allergy status; Z95.5 Presence of coronary angioplasty implant and graft; Z96.643 Presence of artificial hip joint, bilateral
CPT/HCPCS: 36415; 71045; 71275; 80048; 80076; 82550; 82553; 83690; 83880; 84443; 84484; 85025; 93005; 93041; 94760; 99285; Q9967

== ENCOUNTER → 2019-02-13 | Outpatient (CLI) | payer MEDICARE, OTHER ==
[~2019-02-13] MED LIST changes: +FLUTISP; +SENN-53 PO; -SENN1TAB40 PO; +VITA500045
[2019-02-13 13:27] LABS: BLOOD UREA NITROGEN 13 MG/DL (7-18); GLOMERULAR FILTRATION RATE > 60.0 (>39)
[2019-02-13 13:37] LABS: VITAMIN B12 LEVEL 749 PG/ML (247-911)
== END ==
LOC: M SMT 11:04
PROVIDERS: ATTEND Internal Medicine Gastroenterology
DX: K59.1 Functional diarrhea (principal); Z85.028 Personal history of other malignant neoplasm of stomach; K29.00 Acute gastritis without bleeding; E55.9 Vitamin D deficiency, unspecified

== ENCOUNTER 2019-03-17 15:55 | Observation (INO) | payer MEDICARE, OTHER ==
[~2019-03-17] VITALS: Ht 160 cm; Wt 47.0 kg
[~2019-03-17 15:55] MED LIST changes: -FLUTISP; +FLUTISP NARES
[2019-03-17] MEDS ORDERED: LEVO50TA5 PO (16:26)
[2019-03-17] MEDS ORDERED: LOSA50TA88 PO (16:27)
[2019-03-17] MEDS ORDERED: ONDANSETRON 4MG/2ML VIAL (J2405) IV ONE (16:30)
[2019-03-17 16:35] LABS: BASO % 0.9 % (0.0-1.0); EOS # 0.6 10^3/uL (0.0-0.5); EOS % 13.2 % (0.0-3.0); HEMATOCRIT 38.1 % (36.0-47.0); HEMOGLOBIN 12.2 g/dl (12.0-15.5); LYMPH # 1.1 10^3/uL (1.5-5.0); LYMPH % 24.6 % (24.0-44.0); MEAN CORPUSCULAR VOLUME 93.8 fl (80.0-96.0); MONO # 0.4 10^3/uL (0.0-0.8); MONO % 8.2 % (0.0-5.0); NEUTROPHILS # 2.5 10^3/uL (1.5-8.5); NEUTROPHILS % 52.9 % (36.0-66.0); PLATELET COUNT, AUTOMATED 209 10^3/uL (150-450); RED BLOOD COUNT 4.06 10^6/uL (4.00-5.40); WHITE BLOOD COUNT 4.6 10^3/uL (4.0-10.0)
[2019-03-17 16:52] LABS: INR 1.55; PROTHROMBIN TIME 18.3 SECONDS (11.8-14.0)
[2019-03-17] MEDS ORDERED: LABETALOL HCL 100 MG/20 ML VIAL IV STA (16:54)
[2019-03-17 17:06] LABS: ALBUMIN 3.4 GM/DL (3.2-5.2); ALT/SGPT 25 U/L (12-78); BILIRUBIN,DIRECT < 0.1 MG/DL (0.0-0.2); BILIRUBIN,TOTAL 0.3 MG/DL (0.2-1.0); BLOOD UREA NITROGEN 15 MG/DL (7-18); CALCIUM LEVEL 8.8 MG/DL (8.8-10.2); CARBON DIOXIDE LEVEL 26 MEQ/L (21-32); CHLORIDE LEVEL 109 MEQ/L (98-107); CK-MB VALUE MASS 2.3 NG/ML (<3.6); CPK CREATINE PHOSPHOKINASE 74 U/L (26-192); GLOMERULAR FILTRATION RATE > 60.0 (>39); GLUCOSE, FASTING 109 MG/DL (70-100); LIPASE 26 U/L (73-393); MB/CK RELATIVE INDEX 3.11 (< OR =4); POTASSIUM SERUM 3.8 MEQ/L (3.5-5.1); SODIUM LEVEL 141 MEQ/L (136-145); TOTAL PROTEIN 7.2 GM/DL (6.4-8.2); TROPONIN I < 0.02 NG/ML (< 0.10)
[2019-03-17] MEDS ORDERED: MORPHINE 4 MG/ML 1ML VIAL/SYRINGE (J2270) IV PRN (17:30)
[2019-03-17] MEDS: GASTROGRAFIN SOLUTION 30ML PO SCH ×2 (17:58→18:27)
[2019-03-17] MEDS ORDERED: ISOVUE-370 76% 100ML VIAL (Q9967) As Ordered ONE (19:37)
--- NOTE | 2019-03-17 20:36 | REPVR ---
PROCEDURE INFORMATION: Exam: CT Abdomen And Pelvis With Contrast Exam date and time: 03/17/2019 7:36 PM Clinical history: 78 years old, female; Abdominal pain; Generalized; Additional info: Upper abd pain, HX gastric CA with gastrectomy TECHNIQUE: Imaging protocol: Computed tomography of the abdomen and pelvis with intravenous contrast. Radiation optimization: All CT scans at this facility use at least one of these dose optimization techniques: automated exposure control; mA and/or kV adjustment per patient size (includes targeted exams where dose is matched to clinical indication); or iterative reconstruction. Contrast material: ISOVUE 370; Contrast volume: 100 ml; Contrast route: IV; COMPARISON: CT ABD/PEL W/IV ORAL CONTRAS 06/18/2017 5:04 PM FINDINGS: Lungs: Groundglass opacity within the lateral segment of the right middle lobe, nonspecific. Multifocal patchy opacities within the basilar aspect of the right lower lobe. Chronic atelectasis/scar within the medial basilar left lower lobe is unchanged. An active inflammatory or infectious process not completely excluded. Liver: Unremarkable. No mass. Gallbladder and bile ducts: 13 mm diameter stone within the gallbladder. Mild gallbladder distention without wall thickening or pericholecystic inflammation. Mild dilatation of the extrahepatic and intrahepatic bile ducts. The common bile duct is dilated, measuring up to approximately 10 mm in diameter. No definite calcified stone within the common bile duct is seen. Correlate with signs and symptoms of biliary obstruction. Consider followup MRCP as clinically indicated. Pancreas: There is generalized fatty atrophy of the pancreas. Spleen: Unremarkable. No splenomegaly. Adrenals: Normal. No mass. Kidneys and ureters: Chronic scar in the left kidney upper pole. No left renal stone or left hydronephrosis. Nonobstructing stone measuring 5 mm within the right kidney lower pole. No right hydronephrosis. Stomach and bowel: Status post partial gastrectomy with gastrojejunostomy. No bowel obstruction. Appendix: No evidence of appendicitis. Intraperitoneal space: Unremarkable. No free air. No significant fluid collection. Vasculature: Severe atherosclerosis of the abdominal aorta and branch vessels. No aneurysm. Lymph nodes: Unremarkable. No enlarged lymph nodes. Bladder: Evaluation of the urinary bladder is severely limited secondary to artifact from bilateral total hip prostheses. Reproductive: Unremarkable as visualized. Bones/joints: Diffuse osteopenia. Degenerative spondylosis of the lumbar spine. Multiple compression fracture deformities within the lower thoracic and lumbar spine, unchanged. Soft tissues: 3.5 cm diameter hernia within the midline of the intra-abdominal wall, into which a short segment of jejunum protrudes. No bowel obstruction. IMPRESSION: 1. Status post partial gastrectomy with gastrojejunostomy. No bowel obstruction. 2. Bilateral basilar and right middle lobe lung opacities, nonspecific. Followup CT scan of the chest is recommended in 3 months to confirm resolution. 3. Cholelithiasis with mild gallbladder distention. 4. Extrahepatic and intrahepatic bile duct dilatation. Correlate with signs and symptoms of biliary obstruction. Consider MRCP. Followup as clinically indicated. Electronically signed by: Noam Dejesus On 03/17/2019 20:36:16 PM
--- NOTE | 2019-03-17 21:56 | HPEPDOC ---
[facility] Medical History & Physical Date of Admission Mar 17, 2019 Date of Service: Mar 17, 2019 Primary Care Physician: GLADIS CORONADO DO Attending Physician: NOLA ELLIS MD History and Physical TIME OF SERVICE: 11:20 PM CHIEF COMPLAINT: Abdominal pain HISTORY OF PRESENT ILLNESS: This is a 78-year-old female who presents with complaints of mid 10/10 in severity, sharp stomach pain that radiated to her back. The pain made it difficult for her to breath. When this occurred she checked her BP and found that her SBP was in the 240s. She denies skipping any doses of her medications. Associated symptoms include nausea and nonbloody emesis urine that is dark in color than usual and feeling cold. She denies having fevers, denies having chills, denies having diarrhea, denies having constipation, denies having dysuria, and denies change in the smell of the urine. Per discussion with the ED provider her abdominal pain was attributed to gallstones and improved with morphine; the plan was to refer her to general surgeon on an outpatient basis, but the patient also reported an episode of transient aphasia that occurred last Monday. At the time she had a headache and blurry vision. She denied having palpitations, denied feeling weak, denied falling and denied dropping objects. Since Monday she has had some difficulties swallowing. Per d/w the ED provider the prelim report from the CT of the head was negative but he requested admission to complete the work up to r/o stroke. REVIEW OF SYSTEMS: 12 point review of systems negative except as listed in HPI PAST MEDICAL/ SURGICAL HISTORY: Gastric cancer status post gastrectomy in 2014. History of DVT Paroxysmal Atrial fibrillation. CAD status post stent placement Mitral regurgitation. Hypothyroidism. GERD Asthma Chronic HTN / Chronic diastolic congestive heart failure. Left hip OA, status post ORIF and revision History of cervical cancer status post total hysterectomy Per patient Aortic stenosis ? (not present on Echo n 2017 but she reports having an Echo more recently) SOCIAL HISTORY: Former smoker, quit in 1970s, does not drink alcohol, does not use recreational drugs FAMILY HISTORY: Father of MRSA infection Mother had anxiety and COPD Son had skin cancer. She has a family history of breast cancer ALLERGIES: Please see below. HOME MEDICATIONS: Please see below. PHYSICAL EXAMINATION: VITAL SIGNS: Please see below. GENERAL APPEARANCE: Slim built, well-developed, not in apparent distress HEENT: Normocephalic, atraumatic. Mucous membranes moist and pink CARDIOVASCULAR: Regular rate and rhythm. She has a prominent systolic murmur, but no, rubs or gallops. Radial pulses are intact. She has trace lower extremity edema LUNGS: Lungs are clear to auscultation bilaterally on room air ABDOMEN: Bowel sounds are present. Abdomen is soft and tender to palpation in the epigastric region, Aragon sign is positive MUSCULOSKELETAL: Range of motion is intact in all 4 extremities. INTEGUMENT: She has lesions c/w senile purpura at the lower extremities NEUROLOGICAL: CN 2-12 is grossly intact / Strength is 5/5 in all extremities PSYCHIATRIC: A&Ox 3 / speech not dysarthric LABORATORY DATA: See below. IMAGING: Chest x-ray shows cephalization of the blood vessels but is otherwise unr emarkable but the final read is pending. CT of the head shows prominent ventricles, but that does not appear to be in acute process. but the final read is pending CT of the abdomen " IMPRESSION: 1. Status post partial gastrectomy with gastrojejunostomy. No bowel obstruction. 2. Bilateral basilar and right middle lobe lung opacities, nonspecific. Followup CT scan of the chest is recommended in 3 months to confirm resolution. 3. Cholelithiasis with mild gallbladder distention. 4. Extrahepatic and intrahepatic bile duct dilatation. Correlate with signs and symptoms of biliary obstruction. Consider MRCP. Followup as clinically indicated. " MICROBIOLOGY: Please see below. ASSESSMENT: Ms. Sadler is a 78 year old female with past medical history of gastric cancer in remission, paroxysmal atrial fibrillation, chronic CAD, mitral regurgitation, hypothyroidism, asthma and chronic diastolic congestive heart failure who will be admitted for evaluation of dysphagia possibly 2/2 TIA vs CVA. PLAN: 1. Stroke vs TIA She had transient aphasia on Monday which has resolved & is c/o some difficult ies swallowing. Her risk factors include Parox Afib and HTN -ABCD2 Score for risk of CVA after TIA = 3 = low risk = Hospital admission is recommended for all patients with TIAs who have an ABCD2 score of 3 or greater to expedite diagnostic testing and stroke subtyping; admission is also recommended for patients with a score of 0 to 2 if rapid outpatient evaluation cannot be performed. Plan: admit to medical floor / f/u EKG / telemetry /fall precautions / f/u lipid panel & A1C, TSH, MRI brain, carotid US / consider calling her Director Of Corporate Communications during the day to obtain a copy of her the most recent Echo (done this year per pt) / NPO pending swallow evaluation / PT consult / add ASA / she is allergic to statins / pending work up the day time team may consider a Neuro consult 2. Abdominal pain Likely due to to gallstones. Acute elevation in her blood pressures likely due biliary colic Report from CT of the abdomen reviewed Plan: The daytime team may consider outpatient general surgery referral vs MRCP this admission if her abdominal pain reoccurs / f/u UA 3. Paroxysmal Atrial fibrillation. Plan: Resume home meds 4. Chronic CAD Plan: Resume home meds 7. Hypothyroidism. Plan: Resume home meds 8. Chronic Asthma Plan: Resume home meds 9. Chronic HTN / Chronic diastolic CHF Plan: Resume home meds to control BP DVT prophylaxis with rivaroxaban Disposition likely home after less than 2 midnight stay Vital Signs Vital Signs Date Time Temp Pulse Resp B/P (MAP) Pulse Ox O2 Delivery O2 Flow Rate FiO2 03/17/19 20:15 77 146/68 (94) 92 Room Air 03/17/19 19:30 16 03/17/19 15:57 98.2 Laboratory Data Labs 24H Laboratory Tests 2 03/17/19 16:20: Immature Granulocyte % (Auto) 0.2, Neutrophils (%) (Auto) 52.9, Lymphocytes (%) (Auto) 24.6, Monocytes (%) (Auto) 8.2H, Eosinophils (%) (Auto) 13.2H, Basophils (%) (Auto) 0.9, Neutrophils # (Auto) 2.5, Lymphocytes # (Auto) 1.1L, Monocytes # (Auto) 0.4, Eosinophils # (Auto) 0.6H, Basophils # (Auto) 0.0, Nucleated Red Blood Cells % (auto) 0.0, Prothrombin Time 18.3H, Prothromb Time International Ratio 1.55, Anion Gap 6L, Glomerular Filtration Rate > 60.0, Calcium Level 8.8, Total Bilirubin 0.3, Direct Bilirubin < 0.1, Aspartate Amino Transf (AST/SGOT) 19, Alanine Aminotransferase (ALT/SGPT) 25, Alkaline Phosphatase 122H, Total Creatine Kinase 74, Creatine Kinase MB 2.3, Creatine Kinase MB Relative Index 3.11, Troponin I < 0.02, Total Protein 7.2, Albumin 3.4, Albumin/Globulin Ratio 0.89L, Lipase 26L CBC/BMP Laboratory Tests 03/17/19 16:20 Home Medications Scheduled Budesonide/Formoterol (Symbicort 160-4.5 Mcg Inhaler) 6 Gm Hfa.aer.ad, 2 PUFF INH BID Clobetasol Propionate/Emoll (Clobetasol Emollient 0.05% Crm) 15 Gm Cream..g., 1 APLCT TOP DAILY APPLY LIGHT COAT TO VAGINA AND LEFT ARM, DRY AREA Cyanocobalamin (Cyanocobalamin Injection) 1,000 Mcg/1 Ml Inj, 1,000 MCG IM QMONT H Ergocalciferol (Vitamin D2) (Vitamin D2) 50,000 Unit Cap, 50,000 UNIT PO QWEEK FRIDAYS Fluticasone Propionate (Fluticasone Propionate) 16 Gm Kevin.susp, 2 SPRAYS NARES DAILY Furosemide (Furosemide) 20 Mg Tablet, 20 MG PO DAILY Levothyroxine Sodium (Levothyroxine Sodium) 50 Mcg Tablet, 50 MCG PO DAILY Losartan Potassium (Losartan Potassium) 50 Mg Tablet, 50 MG PO DAILY Pancreatic Enzymes (Zenpep Dr 10,000 Unit Capsule) 1 Cap Cap, 3 CAP AC TAKES ALSO WITH SNACKS Rivaroxaban (Xarelto) 20 Mg Tablet, 20 MG PO DAILY Scheduled PRN Albuterol Sulf (Albuterol Sulfate) 2.5 Mg/3 Ml Vial.neb, 1 INH INH Q4H PRN for SOB/WHEEZING Albuterol Sulfate (Ventolin Hfa) 18 Gm Hfa.aer.ad, 2 PUFF INH Q4-6HP PRN for wheezing Allergies Coded Allergies: adhesive (Verified Allergy, Unknown, tears skin, 08/13/18) atorvastatin (Verified Allergy, Unknown, mulscle pain /hives, 08/13/18) rosuvastatin (Verified Allergy, Unknown, muscle pain, 08/13/18) tramadol (Verified Allergy, Unknown, took 2 and had hypertention went to ER, 08/13/18) gabapentin (Verified Adverse Reaction, Unknown, 09/03/18) visual hallucinations A-FIB/CHADSVASC A-FIB History Current/History of A-Fib/PAF?: Yes Current PO Anticoag Therapy: Yes Age/Risk Factor Scoring CHADSVASC: CHADSVASC Response (Comments) Value Age Risk Factor Age >/= 75 years old 2 Gender Risk Factor Female 1 Hx of CHF Yes 1 Hx of HTN Yes 1 Hx of Stroke/TIA/or VTE No 0 Hx of Diabetes No 0 Hx of Vascular Disease No 0 Total 5 Treatment Treatment ordered: Rivaroxaban NOLA ELLIS MD Mar 17, 2019 21:56
[2019-03-17] MEDS ORDERED: VENTAER INH (22:23)
[2019-03-17] MEDS ORDERED: XARE20TA PO (22:23)
[2019-03-17] MEDS ORDERED: FURO20TA2 PO (22:23)
[2019-03-17] MEDS ORDERED: SYMB16INH INH (22:25)
[2019-03-17 22:35] LABS: CHOLESTEROL LEVEL 192 MG/DL (<200); HDL CHOLESTEROL 100 MG/DL (>40); LDL CHOLESTEROL 70 MG/DL (<100); NON-HDL-C 92 MG/DL; TRIGLYCERIDES LEVEL 112 MG/DL (<150)
[2019-03-17] MEDS ORDERED: ALBUTEROL 90 MCG/ACT 8GM HFA INHALER INH PRN (23:15)
--- NOTE | 2019-03-18 00:47 | REPVR ---
PROCEDURE INFORMATION: Exam: US Duplex Bilateral Extracranial Arteries Exam date and time: 03/17/2019 11:51 PM Clinical history: 78 years old, female; Altered mental status/memory loss; Other: CVA TECHNIQUE: Imaging protocol: Real-time Duplex ultrasound scan of the bilateral carotid and vertebral arteries combining golden scale, color Doppler and spectral waveform analysis. Bilateral exam. COMPARISON: Thyroid, ST head+neck US 2014-12-04 11:22 FINDINGS: Right common carotid artery: Mild atherosclerotic disease. No occlusion or stenosis. Waveforms are normal. Right internal carotid artery: Mild/moderate atherosclerosis with elevated velocity measuring 152/31 cm/s. Waveforms are normal. Right ICA/CCA ratio: Within normal limits. Right external carotid artery: Mild to moderate atherosclerotic disease. Right vertebral artery: Unremarkable. Antegrade flow Left common carotid artery: Mild atherosclerotic disease. No occlusion or stenosis. Waveforms are normal. Left internal carotid artery: Mild atherosclerotic disease. Mild stenosis. Velocity 124 cm/s over 34 cm/s. Waveforms are normal. Left ICA/CCA ratio: Within normal limits. Left external carotid artery: Mild atherosclerotic disease in the origin. Left vertebral artery: Unremarkable. Antegrade flow. IMPRESSION: 50-69% proximal right ICA, and less than 50% left ICA stenosis. COMMENT: Carotid Stenosis Reference using SRU criteria: Mild: less than 50% stenosis. ICA PSV is less than 125 cm/second and plaque or intimal thickening is visible. Moderate: 50-69% stenosis. ICA PSV is 125 to 230 cm/second and plaque is visible. Severe: 70-94% stenosis. ICA PSV is more than 230 cm/second and visible plaque and lumen narrowing are seen. Near occlusion: 95-99% stenosis. ICA PSV is variable and significant plaque and luminal narrowing are seen. Occluded: 100% stenosis. No flow identified. Electronically signed by: Deangelo Ha On 03/18/2019 00:47:20 AM
[2019-03-18] MEDS: LEVOTHYROXINE 50MCG TABLET (0.05MG) PO SCH (05:49)
--- NOTE | 2019-03-18 07:06 | REP ---
Portable chest x-ray: Single view. History: Chest pain. Comparison chest x-ray: January 20, 2019. Findings: EKG electrodes are seen. There is a dextroconvex thoracic curvature. The lungs are symmetrically aerated and free of infiltrate. Pleural angles are sharp. Heart size is borderline unchanged. Pulmonary vasculature is not increased. Impression: No acute disease. Electronically Signed by Palmer Redd MD 03/18/2019 08:39 A
--- NOTE | 2019-03-18 07:07 | REP ---
CT brain without contrast: History: Headaches. Expressive aphasia. Rule out metastasis. Comparison head CT study September 09, 2017. November 09, 2016 study is also reviewed. CT findings: Preliminary digital home help aide radiograph is unremarkable. The maxilla is edentulous. The bony calvarium remains intact. No bony destructive lesion is appreciated. Visualized paranasal sinuses are unremarkable. No intraorbital abnormality is seen. On soft tissue window settings, there is mild generalized volume loss. Periventricular white matter low density reflects microangiopathic atherosclerotic disease. There is no evidence of infarction, hemorrhage, extra-axial fluid collection, or mass. Impression: No evidence of hemorrhage, mass or infarct. Small vessel changes. No acute intracranial abnormality. Electronically Signed by Palmer Redd MD 03/18/2019 08:39 A
[2019-03-18 07:40] LABS: HEMATOCRIT 32.7 % (36.0-47.0); MEAN CORPUSCULAR HEMOGLOBIN 30.1 pg (27.0-33.0); MEAN CORPUSCULAR HGB CONC 30.9 g/dl (32.0-36.5); MEAN CORPUSCULAR VOLUME 97.3 fl (80.0-96.0); PLATELET COUNT, AUTOMATED 176 10^3/uL (150-450); RED BLOOD COUNT 3.36 10^6/uL (4.00-5.40); WHITE BLOOD COUNT 4.3 10^3/uL (4.0-10.0)
[2019-03-18 07:41] LABS: HEMOGLOBIN 10.1 g/dl (12.0-15.5)
[2019-03-18 07:48] LABS: HEMOGLOBIN A1c 5.2 %
[2019-03-18 08:04] LABS: BLOOD UREA NITROGEN 15 MG/DL (7-18); CALCIUM LEVEL 7.9 MG/DL (8.8-10.2); CARBON DIOXIDE LEVEL 28 MEQ/L (21-32); CHLORIDE LEVEL 108 MEQ/L (98-107); CREATININE FOR GFR 0.66 MG/DL (0.55-1.30); GLOMERULAR FILTRATION RATE > 60.0 (>39); GLUCOSE, FASTING 82 MG/DL (70-100); SODIUM LEVEL 143 MEQ/L (136-145)
[2019-03-18] MEDS ORDERED: FUROSEMIDE 20 MG TAB PO SCH (09:00)
[2019-03-18] MEDS ORDERED: ENOXAPARIN 40 MG/0.4 ML SYRINGE (J1650) SC SCH (09:00)
[2019-03-18] MEDS: SYMBICORT 160/4.5MCG INHALER 6GM INH SCH ×2 (09:53→20:00)
[2019-03-18] MEDS: CREON-12 CAPSULE PO SCH ×3 (10:35→18:00)
[2019-03-18] MEDS: RIVAROXABAN 20 MG TAB (XARELTO) PO SCH (10:38)
[2019-03-18] MEDS: LOSARTAN 50 MG TAB PO SCH (10:38)
[2019-03-18] MEDS: ASPIRIN 81 MG ENTERIC TAB PO SCH (10:38)
[2019-03-18] MEDS: FLUTICASONE PROP 0.05% NASAL SPRAY 16 GM (FLONASE) NARES SCH (10:39)
--- NOTE | 2019-03-18 13:17 | REP ---
MRI brain: 03/18/2019. Indication: Stroke. Comparison: CT brain dated 03/17/2019 and MRI brain dated 12/21/2015. Technique: Multiplanar short and long TR sequences of the brain were performed without IV Gadolinium. Findings: Image quality is degraded by patient motion. There are no areas of restricted diffusion detected. There is no intracranial mass effect or hydrocephalous. Diffuse age-related volume loss is present. There are multiple areas of white matter T2 prolongation throughout the brainstem and cerebral hemispheres most consistent with chronic small vessel disease. The large intracranial flow voids are present. There is no evidence of intracranial hemorrhage. Periosteal mucosal thickening is present. Air fluid level within the left maxillary sinus is noted consistent with acute inflammation. Impression: There is no evidence of acute intracranial process. Volume loss and sequelae of chronic microangiopathic ischemic disease. Paranasal sinus mucosal disease. Electronically Signed by Tobias Palomares DO 03/18/2019 01:09 P
[2019-03-18] MEDS: CLOBETASOL PROPIONATE EMOLLIENT 0.05% CR 60 GM TOP SCH (13:28)
[2019-03-18] MEDS ORDERED: ONDANSETRON 4MG/2ML VIAL (J2405) IV PRN (14:15)
[2019-03-18 15:00] VITALS: BP 126/64
--- NOTE | 2019-03-18 17:54 | ECGEPIP ---
[facility] - ED Test Date: 2019-03-17 Pat Name: SUE URENA Department: Room: - Gender: Female Lead Instructor/Flight Attendant: FEI : 1940 Requested By: Americo Smith Order Number: [id number] Reading MD: Olivia Park Measurements Intervals [place] Rate: 80 P: 60 IL: 172 QRS: 4 QRSD: 80 T: -16 QT: 359 QTc: 417 Interpretive Statements SINUS RHYTHM NSTTW abnormalities SIMILAR 01/20/19 Electronically Signed on 03-18-2019 17:54:19 EST by Olivia Park
--- NOTE | 2019-03-18 18:01 | ECGEPIP ---
[facility] - ED Test Date: 2019-03-17 Pat Name: SUE URENA Department: Room: [place] [address] Gender: Female Contact Center Consultant: HENRIQUE : 1940 Requested By: KHANG Oconnell Order Number: [id number] Reading MD: Olivia Park Measurements Intervals [place] Rate: 62 P: 61 MN: 166 QRS: 0 QRSD: 89 T: -51 QT: 441 QTc: 449 Interpretive Statements SINUS RHYTHM NONSPECIFIC T-WAVE ABNORMALITY COMPARED 03/17/19 16:13 Electronically Signed on 03-18-2019 18:00:56 EST by Olivia Park
[2019-03-18] MEDS ORDERED: NS 1,000 ML IV SCH (18:15)
[2019-03-18] MEDS ORDERED: ASPIRIN 81 MG CHEW TABLET PO ONE (18:15)
--- NOTE | 2019-03-18 18:38 | REPVR ---
PROCEDURE INFORMATION: Exam: CT Head Without Contrast Exam date and time: 03/18/2019 6:02 PM Clinical history: 78 years old, female; Other: TIA TECHNIQUE: Imaging protocol: Computed tomography of the head without contrast. Radiation optimization: All CT scans at this facility use at least one of these dose optimization techniques: automated exposure control; mA and/or kV adjustment per patient size (includes targeted exams where dose is matched to clinical indication); or iterative reconstruction. Other technique: STROKE PROTOCOL was implemented. COMPARISON: TN CT Head without contrast 03/17/2019 4:30 PM FINDINGS: Brain: There are periventricular foci of white matter hypodensity, likely representing small vessel ischemic disease in a patient this age. The acuity of the white matter disease is indeterminate. The white-golden differentiation is preserved demonstrating no acute territorial type infarct. No acute intracranial hemorrhage is seen. Midline shift: There is no midline shift. Ventricles: There is mild prominence of the ventricles and frontal sulci, compatible with atrophy. Bones/joints: The calvarium demonstrates no evidence for a depressed fracture. Sinuses: Visualized sinuses are unremarkable. No fluid levels. Mastoid air cells: No mastoid effusion. Soft tissues: Unremarkable. Vasculature: Intracranial atherosclerosis visualized. IMPRESSION: 1. No acute intracranial hemorrhage or acute territorial type infarct. 2. There are periventricular foci of white matter hypodensity, likely representing small vessel ischemic disease in a patient this age. 3. Mild atrophy. 4. If further evaluation is clinically indicated, an MRI of the brain is recommended. ASSESSMENT: Tanesha Stroke Program Early CT Score (ASPECTS) = 10 Electronically signed by: Ramakrishna Enriquez On 03/18/2019 18:38:30 PM
--- NOTE | 2019-03-18 18:48 | IPNPDOC ---
Date Seen The patient was seen on 03/18/19. Progress Note SUBJECTIVE: 78-year-old female was seen this afternoon in the ER. She states that she's feeling relatively well. She did have an episode of nausea after getting up suddenly to go use the bathroom. She states that she's been diuresing a lot since he's been here. She believes is a little dry. She denies any abdominal pain at this current time are diarrhea constipation. She is a little worried about her TIA/stroke she had her MRI of the brain earlier this afternoon and her blood pressures have been controlled since being admitted. She has no other complaints at this time. OBJECTIVE PHYSICAL EXAMINATION: VITAL SIGNS: Please see below. GENERAL: Pleasant elderly female laying on the bed speaking in complete sentences in no acute distress. HEENT: Dry Mucous membranes no JVD CARDIOVASCULAR: S1 S2 regular prominent systolic murmur in the second intercostal space on the right radiating to the carotid and the apex. Rate 4/6 RESPIRATORY: Lungs clear auscultate bilaterally no adventitious lung sounds appreciated ABDOMINAL: Bowel sounds present abdomen soft and nontender EXTREMITIES: No clubbing cyanosis or edema NEUROLOGICAL: Spontaneously moves all 4 extremities cranial 2 through 12 grossly intact no gross focal deficits appreciated. Normal sensation in the upper and lo wer extremities. Muscle strength 5 out of 5 in upper and lower extremities. DTRs 2+ PSYCHOLOGICAL: Appropriate LABORATORY DATA, MICROBIOLOGY: Please see below. IMAGING STUDIES: ASSESSMENT AND PLAN: This is a 78 -[id number]-old female with TIA vs acute stroke PROBLEMS: 1. TIA unlikely stroke -risk factors include Parox Afib and HTN -ABCD2 = 3 = low risk -c/w telemetry -MRI negative for acute stroke -ECHO report pending from outpatient -continue ASA - even though documented muscle pain with statin, Taco with patient about benefits of starting a statin and she is agreeable to restarting crestor -Clinical symptoms are not improving can consider neurological consult 2. Abdominal pain (Resolved) - Likely due to to gallstones seen on CT of the abdomen - monitor for now -may consider outpatient general surgery referral 3. Paroxysmal Atrial fibrillation. c/w home meds 4. CAD c/w home meds 7. Hypothyroidism. c/w home meds 8. Chronic Asthma c/w home meds 9. Chronic HTN / Chronic diastolic congestive heart failure c/w home meds - stopped home a 6 because patient appears dry today on exam. Because of the significant systolic murmur I do believe she may be preload dependent we will gently hydrate her 500 mL overnight and review echocardiogram tomorrow. DVT prophylaxis: Rivaroxaban DISPOSITION: Possible discharge in 24-48 hours pending volume status and neurological work up VS, I&O, 24H, Fishbone Vital Signs/I&O Vital Signs Date Time Temp Pulse Resp B/P (MAP) Pulse Ox O2 Delivery O2 Flow Rate FiO2 03/18/19 15:00 98.0 91 20 126/64 (84) 92 Room Air 03/18/19 08:18 1.0 Laboratory Data 24H LABS Laboratory Tests 2 03/18/19 07:05: Nucleated Red Blood Cells % (auto) 0.0, Anion Gap 7L, Glomerular Filtration Rate > 60.0, Estimated Mean Plasma Glucose 103, Hemoglobin A1c 5.2, Calcium Level 7.9L 03/18/19 18:07: Bedside Glucose (Misc Panel) 157H CBC/BMP Laboratory Tests 03/18/19 07:05 GME ATTESTATION GME ATTESTATION My faculty preceptor for this patient encounter was physically present during the encounter and was fully available. All aspects of the patient interview, examination, medical decision making process, and medical care plan development were reviewed and approved by the faculty preceptor. The faculty preceptor is aware and concurs with the plan as stated in the body of this note and will attest to such by his/her cosignature. ATTENDING NOTE Patient was seen and examined by me this morning with the residents. Agree with the above assessment and plan STEFFEN PELAEZ DO Mar 18, 2019 18:48 MAT MERCHANT MD Mar 19, 2019 13:48
[2019-03-18 19:17] LABS: HEMOGLOBIN 11.5 g/dl (12.0-15.5); MEAN CORPUSCULAR HEMOGLOBIN 29.9 pg (27.0-33.0); MEAN CORPUSCULAR HGB CONC 31.1 g/dl (32.0-36.5); MEAN CORPUSCULAR VOLUME 96.4 fl (80.0-96.0); PLATELET COUNT, AUTOMATED 201 10^3/uL (150-450); RED BLOOD COUNT 3.84 10^6/uL (4.00-5.40); WHITE BLOOD COUNT 4.7 10^3/uL (4.0-10.0)
[2019-03-18 19:28] LABS: INR 1.64; PROTHROMBIN TIME 19.2 SECONDS (11.8-14.0)
[2019-03-18 19:35] LABS: BLOOD UREA NITROGEN 16 MG/DL (7-18); CALCIUM LEVEL 8.6 MG/DL (8.8-10.2); CARBON DIOXIDE LEVEL 29 MEQ/L (21-32); CHLORIDE LEVEL 106 MEQ/L (98-107); CREATININE FOR GFR 0.83 MG/DL (0.55-1.30); GLOMERULAR FILTRATION RATE > 60.0 (>39); GLUCOSE, FASTING 153 MG/DL (70-100); POTASSIUM SERUM 4.1 MEQ/L (3.5-5.1); SODIUM LEVEL 139 MEQ/L (136-145)
[2019-03-18 19:39] LABS: CHOLESTEROL RISK RATIO 2.12 (<5)
[2019-03-18] MEDS: ROSUVASTATIN 10 MG TAB (CRESTOR) PO SCH (20:26)
[2019-03-18 22:00] VITALS: BP 124/68
[2019-03-19] MEDS: LEVOTHYROXINE 50MCG TABLET (0.05MG) PO SCH (05:34)
[2019-03-19 06:00] VITALS: BP 131/71
[2019-03-19] MEDS ORDERED: ALBUTEROL 90 MCG/ACT 8GM HFA INHALER INH PRN (09:15)
[2019-03-19] MEDS: SYMBICORT 160/4.5MCG INHALER 6GM INH SCH ×2 (09:16→21:00)
[2019-03-19] MEDS: FLUTICASONE PROP 0.05% NASAL SPRAY 16 GM (FLONASE) NARES SCH (10:30)
[2019-03-19] MEDS: CREON-12 CAPSULE PO SCH ×3 (10:31→16:44)
[2019-03-19] MEDS: RIVAROXABAN 20 MG TAB (XARELTO) PO SCH (10:31)
[2019-03-19] MEDS: LOSARTAN 50 MG TAB PO SCH (10:31)
[2019-03-19] MEDS: CLOBETASOL PROPIONATE EMOLLIENT 0.05% CR 60 GM TOP SCH (10:31)
[2019-03-19] MEDS: ASPIRIN 81 MG ENTERIC TAB PO SCH (10:31)
[2019-03-19 14:00] VITALS: BP 102/74
--- NOTE | 2019-03-19 14:57 | IPNPDOC ---
Date Seen The patient was seen on 03/19/19. Progress Note SUBJECTIVE: Patient is 78-year-old female was seen this morning. She is in a better mood. She slept well last night with no problems. She does notice that she has a slight phlegmy cough but its not too significant. Otherwise patient denies chest pain, shortness breath, nausea, vomiting, fevers, and chills. Lastly she would like to know when she go home. OBJECTIVE PHYSICAL EXAMINATION: VITAL SIGNS: Please see below. GENERAL: Pleasant elderly female laying on the bed speaking in complete sentences in no acute distress. HEENT: Moist Mucous membranes (improving) no JVD CARDIOVASCULAR: S1 S2 regular prominent systolic murmur in the second intercostal space on the right radiating to the carotid and the apex. Rate 3/6 RESPIRATORY: Lungs clear auscultate bilaterally no adventitious lung sounds appreciated. ABDOMINAL: Bowel sounds present abdomen soft and nontender EXTREMITIES: No clubbing cyanosis or edema NEUROLOGICAL: Spontaneously moves all 4 extremities cranial 2 through 12 grossly intact no gross focal deficits appreciated. Normal sensation in the upper and lower extremities. Muscle strength 5 out of 5 in upper and lower extremities. DTRs 2+ PSYCHOLOGICAL: Appropriate LABORATORY DATA, MICROBIOLOGY: Please see below. IMAGING STUDIES: ASSESSMENT AND PLAN: This is a 78 -[id number]-old female with TIA vs acute stroke PROBLEMS: 1. TIA unlikely stroke -risk factors include Parox Afib and HTN -ABCD2 = 3 = low risk -c/w telemetry -CT/MRI both are negative for acute stroke -ECHO report pending from outpatient -c/w ASA and Crestor - even though documented muscle pain with statin, educated patient about about benefits of starting a statin and she is agreeable to restarting crestor -Also educated patient the importance of being compliant with aspirin because of her TIA symptoms she agrees that she will be more compliant with this will not refuse anymore. 2. Asystematic Cholelithiasis -on admission had initial abdominal pain which has resolved - will monitor for now, indication for cholecystectomy not met 3. Paroxysmal Atrial fibrillation -currently sinus rhythm and rate controlled on telemetry -Not on beta blockers currently rate controlled. Dr. Acosta outpatient c/w Xarelto 4. CAD -c/w aspirin, 7. Hypothyroidism. c/w levothyroxine 8. Chronic Asthma c/w Symbicort and albuterol inhaler 9. Chronic HTN / Chronic diastolic congestive heart failure c/w losartan and - continue to hold lasix for now because patient appears dry today on exam, but it is improving, encourage good by mouth intake and review echocardiogram once faxed in 10. 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 History of stomach cancer status post gastric bypass surgery DVT prophylaxis: Rivaroxaban DISPOSITION: Possible discharge in the AM VS, I&O, 24H, Fishbone Vital Signs/I&O Vital Signs Date Time Temp Pulse Resp B/P (MAP) Pulse Ox O2 Delivery O2 Flow Rate FiO2 03/19/19 10:31 131/71 03/19/19 06:00 98.2 86 17 91 03/18/19 22:00 Room Air 03/18/19 08:18 1.0 I&O- Last 24 Hours up to 6 AM 03/19/19 06:00 Intake Total 1420 ml Output Total 950 ml Balance 470 ml Laboratory Data 24H LABS Laboratory Tests 2 03/18/19 18:07: Bedside Glucose (Misc Panel) 157H 03/18/19 18:54: Nucleated Red Blood Cells % (auto) 0.0, Prothrombin Time 19.2H, Prothromb Time International Ratio 1.64, Anion Gap 4L, Glomerular Filtration Rate > 60.0, Calcium Level 8.6L, Triglycerides Level 98, Total Cholesterol 176, LDL Cholesterol 73, Non-HDL Cholesterol (LDL + VLDL) 93, Total HDL Cholesterol 83, Cholesterol/HDL Ratio 2.120 03/19/19 05:24: Thyroid Stimulating Hormone (TSH) 3.180 CBC/BMP Laboratory Tests 03/18/19 18:54 GME ATTESTATION GME ATTESTATION My faculty preceptor for this patient encounter was physically present during the encounter and was fully available. All aspects of the patient interview, examination, medical decision making process, and medical care plan development were reviewed and approved by the faculty preceptor. The faculty preceptor is aware and concurs with the plan as stated in the body of this note and will attest to such by his/her cosignature. ATTENDING NOTE Patient was seen and examined by me this morning with the residents. Agree with the above assessment and plan STEFFEN PELAEZ DO Mar 19, 2019 14:57 MAT MERCHANT MD Mar 20, 2019 14:20
[2019-03-19] MEDS: ROSUVASTATIN 10 MG TAB (CRESTOR) PO SCH (20:05)
[2019-03-19 22:00] VITALS: BP 108/72
[2019-03-20] MEDS: LEVOTHYROXINE 50MCG TABLET (0.05MG) PO SCH (05:47)
[2019-03-20 06:00] VITALS: BP 106/74
[2019-03-20 06:25] LABS: HEMATOCRIT 33.4 % (36.0-47.0); HEMOGLOBIN 10.7 g/dl (12.0-15.5); MEAN CORPUSCULAR HEMOGLOBIN 30.6 pg (27.0-33.0); MEAN CORPUSCULAR VOLUME 95.4 fl (80.0-96.0); PLATELET COUNT, AUTOMATED 194 10^3/uL (150-450); WHITE BLOOD COUNT 3.6 10^3/uL (4.0-10.0)
[2019-03-20] MEDS ORDERED: CRES10TA PO ×2 (07:45→08:59)
[2019-03-20] MEDS ORDERED: ASPI81TAEC PO ×3 (07:45→09:30)
[2019-03-20] MEDS: SYMBICORT 160/4.5MCG INHALER 6GM INH SCH (08:31)
[2019-03-20] MEDS ORDERED: CRES40TA PO (09:30)
[2019-03-20 10:02] VITALS: BP 106/74
[2019-03-20] MEDS: LOSARTAN 50 MG TAB PO SCH (10:02)
[2019-03-20] MEDS: CREON-12 CAPSULE PO SCH (10:02)
[2019-03-20] MEDS: FLUTICASONE PROP 0.05% NASAL SPRAY 16 GM (FLONASE) NARES SCH (10:02)
[2019-03-20] MEDS: ASPIRIN 81 MG ENTERIC TAB PO SCH (10:02)
[2019-03-20] MEDS: RIVAROXABAN 20 MG TAB (XARELTO) PO SCH (10:02)
[2019-03-20] MEDS: CLOBETASOL PROPIONATE EMOLLIENT 0.05% CR 60 GM TOP SCH (10:03)
== END 2019-03-20 11:56 | disposition home or self-care (01) ==
LOC: M ED 15:55 → M ED INP 15:56 → M MSPAV 03-18 14:52
PROVIDERS: ADMIT Internal Medicine; ATTEND Internal Medicine
DX: G45.9 Transient cerebral ischemic attack, unspecified (principal); I67.82 Cerebral ischemia; R05 Cough; I11.0 Hypertensive heart disease with heart failure; R51 Headache; K80.20 Calculus of gallbladder without cholecystitis without obstruction; R13.10 Dysphagia, unspecified; R10.9 Unspecified abdominal pain; I48.0 Paroxysmal atrial fibrillation; I50.32 Chronic diastolic (congestive) heart failure; E03.9 Hypothyroidism, unspecified; J45.909 Unspecified asthma, uncomplicated; I34.0 Nonrheumatic mitral (valve) insufficiency; Z85.028 Personal history of other malignant neoplasm of stomach; Z90.3 Acquired absence of stomach [part of]; Z86.718 Personal history of other venous thrombosis and embolism; K21.9 Gastro-esophageal reflux disease without esophagitis; Z85.41 Personal history of malignant neoplasm of cervix uteri; I35.0 Nonrheumatic aortic (valve) stenosis; Z79.899 Other long term (current) drug therapy; Z79.01 Long term (current) use of anticoagulants; Z79.51 Long term (current) use of inhaled steroids; Z91.048 Other nonmedicinal substance allergy status; Z88.8 Allergy status to other drugs, medicaments and biological substances; Z88.5 Allergy status to narcotic agent; Z95.5 Presence of coronary angioplasty implant and graft; Z87.891 Personal history of nicotine dependence
CPT/HCPCS: 36415; 70450; 70551; 71045; 74177; 80048; 80061; 80076; 82550; 82553; 83036; 83690; 84443; 84484; 85025; 85027; 85610; 92526; 92610; 93005; 93041; 93880; 94640; 94760; 96361; 96374; 96375; 97161; 99285; G0378; J2270; J2405; Q9963; Q9967

== ENCOUNTER 2019-04-22 06:31 | Observation (INO) | payer MEDICARE, OTHER ==
[~2019-04-22] VITALS: Ht 144.8 cm; Wt 54.0 kg
[~2019-04-22 06:31] MED LIST changes: +ASPI81TAEC PO; +CRES10TA PO; +CRES40TA PO; +LEVO50TA5 PO; +LOSA50TA88 PO
[2019-04-22] MEDS ORDERED: LOSARTAN 50 MG TAB PO ONE (07:30)
[2019-04-22] MEDS ORDERED: ONDANSETRON 4MG/2ML VIAL (J2405) IV ONE (07:40)
[2019-04-22] MEDS ORDERED: ONDANSETRON 4MG/2ML VIAL (J2405) As Ordered ONE (07:47)
[2019-04-22 07:57] LABS: BASO # 0.1 10^3/uL (0.0-0.2); BASO % 0.8 % (0.0-1.0); EOS # 0.6 10^3/uL (0.0-0.5); EOS % 9.4 % (0.0-3.0); HEMATOCRIT 33.9 % (36.0-47.0); HEMOGLOBIN 10.7 g/dl (12.0-15.5); LYMPH # 1.2 10^3/uL (1.5-5.0); LYMPH % 18.9 % (24.0-44.0); MEAN CORPUSCULAR HEMOGLOBIN 30.1 pg (27.0-33.0); MEAN CORPUSCULAR HGB CONC 31.6 g/dl (32.0-36.5); MEAN CORPUSCULAR VOLUME 95.2 fl (80.0-96.0); MONO # 0.5 10^3/uL (0.0-0.8); MONO % 7.7 % (0.0-5.0); PLATELET COUNT, AUTOMATED 183 10^3/uL (150-450); RED BLOOD COUNT 3.56 10^6/uL (4.00-5.40); WHITE BLOOD COUNT 6.4 10^3/uL (4.0-10.0)
[2019-04-22] MEDS: fentaNYL 100 MCG/2 ML INJECTION (J3010) IV PRN ×2 (08:29→09:11)
[2019-04-22 08:32] LABS: BLOOD UREA NITROGEN 14 MG/DL (7-18); CALCIUM LEVEL 7.8 MG/DL (8.8-10.2); CARBON DIOXIDE LEVEL 24 MEQ/L (21-32); CHLORIDE LEVEL 112 MEQ/L (98-107); CK-MB VALUE MASS 2.1 NG/ML (<3.6); CPK CREATINE PHOSPHOKINASE 84 U/L (26-192); CREATININE FOR GFR 0.75 MG/DL (0.55-1.30); GLOMERULAR FILTRATION RATE > 60.0 (>39); GLUCOSE, FASTING 101 MG/DL (70-100); POTASSIUM SERUM 3.4 MEQ/L (3.5-5.1); SODIUM LEVEL 144 MEQ/L (136-145); TROPONIN I < 0.02 NG/ML (< 0.10)
--- NOTE | 2019-04-22 08:42 | ECGEPIP ---
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
[2019-04-22 08:45] LABS: ALT/SGPT 32 U/L (12-78); BILIRUBIN,DIRECT 0.2 MG/DL (0.0-0.2); BILIRUBIN,TOTAL 0.4 MG/DL (0.2-1.0); LIPASE 18 U/L (73-393); TOTAL PROTEIN 6.8 GM/DL (6.4-8.2)
--- NOTE | 2019-04-22 09:06 | REP ---
Clinical: Headache and vomiting. History of anticoagulant therapy. Comparison: 03/18/2019 Findings: Atrophy with periventricular leukomalacia and microvascular ischemic changes are appreciated. The ventricles and sulci are symmetric. Larson-white differentiation is maintained. There is no evidence for acute intracranial hemorrhage, mass/mass effect, pathology or infarction. No extra-axial fluid collection. Calvarium is intact. Paranasal sinuses and mastoid air cells are clear. Impression: Atrophy and microvascular ischemic changes. No acute intracranial hemorrhage, infarction, or mass/mass effect. Electronically Signed by Enrrique Lepe MD 04/22/2019 08:58 A
--- NOTE | 2019-04-22 09:15 | REP ---
Clinical: Right flank pain with vomiting. Technique: Axial noncontrast images from the thoracic inlet to the upper abdomen with coronal and sagittal re-formations. Comparison: 03/17/2019. Findings: Lung bases demonstrate small chronic left lower lobe consolidation/atelectasis along with chronic bibasilar fibroatelectatic changes. There is evidence for acute right-sided hydroureteronephrosis along with moderate edematous enlargement to the right kidney and mild perinephric stranding. Hydroureter can be followed to the mid pelvis where further evaluation is completely obscured due to extensive beam hardening artifact from bilateral hip prostheses. Further evaluation by ultrasound may be warranted. Liver, spleen, pancreas, bilateral adrenal glands and atrophic appearance to the left kidney remain essentially stable. Cholelithiasis again noted without obvious acute cholecystitis. The visualized enteric system is without obvious obstruction or definite acute process. Diverticulosis noted. Ventral hernia containing nonobstructed loop of transverse colon remains relatively stable. Extensive atherosclerotic disease to the aorta and abdominal vasculature is again identified. No obvious ascites. No free air. No obvious adenopathy. Musculoskeletal structures demonstrate osteopenia, degenerative changes, and chronic relatively stable appearing compression deformities at L1 and visualized lower thoracic vertebral bodies. Impression: 1. Right-sided hydroureteronephrosis as described above. Hydroureter is followed to the pelvis and then obscured due to extensive metallic beam hardening artifact from hip prostheses. Follow-up by ultrasound may be warranted. 2. Cholelithiasis without obvious acute cholecystitis. 3. Diverticulosis. 4. Further chronic changes as detailed above. Electronically Signed by Enrrique Lepe MD 04/22/2019 09:07 A
--- NOTE | 2019-04-22 09:22 | REP ---
Clinical: Cough. Comparison: 03/17/2019. Findings: Small pleural effusions and trace atelectasis suggested. Partial collapse to the left lower lobe is also suspected. No pneumothorax. Mediastinum and cardiac silhouette are normal. Skeletal structures are intact. Impression: 1. Partial collapse to the left lower lobe along with small bilateral pleural effusions and trace atelectasis. Electronically Signed by Enrrique Lepe MD 04/22/2019 09:14 A
[2019-04-22] MEDS ORDERED: LOSA50TA88 PO (10:05)
[2019-04-22] MEDS ORDERED: VENTAER INH (10:05)
[2019-04-22] MEDS ORDERED: DRIS50003 PO (10:05)
[2019-04-22] MEDS ORDERED: SYMB16INH INH (10:05)
[2019-04-22] MEDS ORDERED: CYAN1000VL IM (10:05)
[2019-04-22] MEDS ORDERED: ZENP1CAP63 PO ×2 (10:05)
[2019-04-22] MEDS ORDERED: FURO20TA2 PO (10:05)
[2019-04-22] MEDS ORDERED: ROSU20TA5 PO (10:05)
[2019-04-22] MEDS ORDERED: ALB2.5NEB INH (10:05)
[2019-04-22] MEDS ORDERED: LEVO50TA5 PO (10:05)
[2019-04-22] MEDS ORDERED: XARE20TA PO (10:05)
[2019-04-22] MEDS ORDERED: CLOB5CR TOP (10:34)
[2019-04-22] MEDS ORDERED: ACETAMINOPHEN 500 MG TAB PO PRN (11:45)
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
--- NOTE | 2019-04-22 11:58 | REP ---
Clinical: Abnormal chest x-ray findings. Technique: Axial noncontrast images from the thoracic inlet to the upper abdomen with coronal and sagittal re-formations. Findings: Trace right basilar atelectasis is appreciated. Small chronic partial collapse to the left lower lobe with small chronic left pleural reaction remains unchanged compared to 02/18/2018. No significant effusion. No pneumothorax. Mild chronic emphysematous changes suggested. Mediastinum demonstrates atherosclerotic changes to the thoracic aorta and coronary arteries without aortic aneurysm or cardiomegaly. No pericardial effusion. Musculoskeletal structures demonstrate age-related changes. Impression: 1. Trace right basilar atelectasis. 2. Chronic changes at the left base including small chronic pleural reaction and chronic partial collapse to the left lower lobe which remain stable compared to 2018. Electronically Signed by Enrrique Lepe MD 04/22/2019 11:50 A
[2019-04-22] MEDS ORDERED: IPRATROPIUM 0.5MG/ALBUTEROL 2.5MG INH SOL UD 3ML (DUONEB)(J7620) NEB PRN (12:00)
[2019-04-22 12:05] VITALS: BP 156/78
[2019-04-22] MEDS: TAMSULOSIN 0.4 MG CAP PO SCH (12:53)
[2019-04-22] MEDS: LABETALOL 100 MG TAB PO SCH ×2 (12:54→21:01)
[2019-04-22] MEDS: ROSUVASTATIN 10 MG TAB (CRESTOR) PO SCH (12:54)
[2019-04-22] MEDS: ceFAZolin SOD 1 GM in D5W MINI-BAG PLUS 50 ML IV SCH ×2 (12:55→21:02)
[2019-04-22] MEDS: KCL 20MEQ in NS 1000ML 1,000 ML IV SCH ×2 (12:55→21:03)
[2019-04-22] MEDS: MORPHINE 2 MG/ML 1ML VIAL (J2270) IV PRN ×2 (12:56→21:02)
[2019-04-22] MEDS ORDERED: PILL CUTTER 1 EACH XX PRN (13:15)
[2019-04-22] MEDS: IPRATROPIUM 0.5MG/ALBUTEROL 2.5MG INH SOL UD 3ML (DUONEB)(J7620) NEB SCH ×2 (14:00→20:00)
--- NOTE | 2019-04-22 14:27 | SMCUROLCON ---
Urology Consultation General Date of Consultation 04/22/19 Reason For Consultation This patient is seen for Accelerated Hypertension. History of Present Illness This is a 78 y/o M w/ PMH significant for hypothyroidism, paroxysmal A fib, and GERD, admitted to the hospital for bleeding from a leg wound. On admission she also noted right flank and abd pain for about a week. A noncontrast CT A/P was obtained and was notable for mild to moderate right hydroureteronephrosis which appears to be due to an obstructing 4mm distal right ureteral stone (image 80 on axial cuts). Since admission to the hospital she has also noted gross hematuria. She notes that her right flank pain is controlled w/ pain medi cation. She denies dysuria. She has no trouble voiding. She has never had kidney stones previously. Past Medical History Medical History see HPI Surgical Hstory cataract surgery, cardiac stenting, hysterectomy, stomach surgery Medications Current Medications Current Medications Medications (Trade) Dose Ordered Sig/Georges Route PRN Reason Start Time Stop Time Status Last Admin Dose Admin Acetaminophen (Tylenol Tab) 1,000 mg Q6HP PRN PO PAIN / FEVER 04/22/19 11:45 Albuterol/ Ipratropium (Duoneb (Ipr 0.5mg/Alb 2.5mg)) 3 ml Q2HP PRN NEB SOB/WHEEZING 04/22/19 12:00 Albuterol/ Ipratropium (Duoneb (Ipr 0.5mg/Alb 2.5mg)) 3 ml RQ6H NEB 04/22/19 14:00 Budesonide/ Formoterol Fumarate (Symbicort 160/ 4.5mcg) 2 puff BID INH 04/22/19 21:00 Cefazolin Sodium 1 gm/Dextrose 50 ml @ 100 mls/hr Q8H IV 04/22/19 13:00 04/22/19 12:55 Fentanyl Citrate (Sublimaze) 25 mcg Q30M PRN IV MODERATE/SEVERE PAIN (PS 5-10) 04/22/19 08:30 04/22/19 09:11 DC 04/22/19 09:11 Home Med (Med Rec Complete!) ASDIRECTED XX 04/22/19 10:15 04/22/19 10:08 DC Labetalol HCl (Normodyne, Trandate) 50 mg BID PO 04/22/19 11:15 04/22/19 12:54 Levothyroxine Sodium (Synthroid) 50 mcg DAILY@0600 PO 04/23/19 06:00 Losartan Potassium (Cozaar) 50 mg BID PO 04/22/19 21:00 Morphine Sulfate (Morphine Sulfate Inj) 2 mg Q4HP PRN IV MODERATE PAIN (PS 5-7) 04/22/19 11:45 04/22/19 12:56 Potassium Chloride/Sodium Chloride 1,000 ml @ 125 mls/hr Q8H IV 04/22/19 11:30 04/22/19 12:55 Rivaroxaban (Xarelto) 15 mg DAILY@1800 PO 04/22/19 18:00 Rosuvastatin Calcium (Crestor) 20 mg DAILY PO 04/22/19 09:00 04/22/19 12:54 Tamsulosin HCl (Flomax) 0.4 mg DAILY PO 04/22/19 11:30 04/22/19 12:53 Allergies Allergies: Coded Allergies: atorvastatin (Verified Allergy, Intermediate, mulscle pain /hives, 04/22/19) tramadol (Verified Adverse Reaction, Intermediate, took 2 and had hypertention went to ER, 04/22/19) adhesive (Verified Adverse Reaction, Unknown, tears skin, 04/22/19) gabapentin (Verified Adverse Reaction, Unknown, visual hallucinations, 04/22/19) visual hallucinations Review of Systems Constitutional: Denies: Fever, Chills Pulmonary: Denies: Dyspnea, Cough Cardiovascular: Denies Chest Pain, Denies Palpitations Gastrointestinal: Reports: Nausea (mild - associated w/ right flank pain) Genitourinary: Reports: Hematuria; Denies: Dysuria, Frequency, Incontinence Musculoskeletal: Reports: Back Pain (right flank pain) Psych: Reports: Mood Normal Physical Examination General Exam: Alert, Cooperative Chest Exam: Clear to auscultation Heart Exam: Rate Normal Abdomen Exam: Soft, Tenderness (mild RLQ) Skin Exam: Nl turgor and temperature Neuro Exam: Normal Speech Psych Exam: Mental status NL, Mood NL Vital Signs/I&O Vital Signs Date Time Temp Pulse Resp B/P (MAP) Pulse Ox O2 Delivery O2 Flow Rate FiO2 04/22/19 12:56 18 96 Room Air 04/22/19 12:54 90 156/78 04/22/19 12:05 98.1 Laboratory Data 24H Labs Laboratory Tests 2 04/22/19 07:43: Immature Granulocyte % (Auto) 0.2, Neutrophils (%) (Auto) 63.0, Lymphocytes (%) (Auto) 18.9L, Monocytes (%) (Auto) 7.7H, Eosinophils (%) (Auto) 9.4H, Basophils (%) (Auto) 0.8, Neutrophils # (Auto) 4.0, Lymphocytes # (Auto) 1.2L, Monocytes # (Auto) 0.5, Eosinophils # (Auto) 0.6H, Basophils # (Auto) 0.1, Nucleated Red Blood Cells % (auto) 0.0, Anion Gap 8, Glomerular Filtration Rate > 60.0, Calcium Level 7.8L, Total Bilirubin 0.4, Direct Bilirubin 0.2, Aspartate Amino Transf (AST/SGOT) 31, Alanine Aminotransferase (ALT/SGPT) 32, Alkaline Phosphatase 105, Total Creatine Kinase 84, Creatine Kinase MB 2.1, Creatine Kinase MB Relative Index 2.50, Troponin I < 0.02, Total Protein 6.8, Albumin 3.0L, Albumin/Globulin Ratio 0.79L, Lipase 18L 04/22/19 09:12: Urine Color YELLOW, Urine Appearance HAZY, Urine pH 5.0, Urine Specific [place] 1.012, Urine Protein 1+H, Urine Glucose (UA) NEGATIVE, Urine Ketones TRACEH, Urine Blood 3+H, Urine Nitrite NEGATIVE, Urine Bilirubin NEGATIVE, Urine Urobilinogen 0.2, Urine Leukocyte Esterase NEGATIVE, Urine WBC (Auto) 10H, Urine RBC (Auto) TNTCH, Urine Hyaline Casts (Auto) 0, Urine Bacteria (Auto) 1+H, Urine Squamous Epithelial Cells 1, Urine Mucus (Auto) SMALL, Urine Sperm (Auto) CBC/BMP Laboratory Tests 04/22/19 07:43 Assessment This is a 78 y/o F admitted from excessive bleeding from a leg wound due to xarelto, also found to have an obstructing 4mm distal right ureteral stone. Her UA appears negative for infection. Her pain is controlled. Her renal function is stable. Since the stone is distal and 4mm, I recommend a trial of passage. Plan - percocet as needed for pain - start flomax - hydrate - strain all urine - will have my office arrange outpt f/u in 2 wks - if patient has not passed her stone by then, we will set her up for right ureteroscopy w/ laser lithotripsy LAMBERTO WARREN MD Apr 22, 2019 14:27
[2019-04-22 16:00] VITALS: BP 150/67
[2019-04-22] MEDS ORDERED: ZENPEP PO PRN (18:00)
[2019-04-22] MEDS: RIVAROXABAN 15 MG TAB (XARELTO) PO SCH (18:14)
[2019-04-22] MEDS: ZENPEP PO SCH (18:14)
[2019-04-22 20:00] VITALS: BP 111/64
[2019-04-22] MEDS: LOSARTAN 50 MG TAB PO SCH (21:02)
[2019-04-22] MEDS: SYMBICORT 160/4.5MCG INHALER 6GM INH SCH (21:17)
[2019-04-23] VITALS (11 sets, daily range): BP systolic 99–143; BP diastolic 51–62
[2019-04-23] MEDS: IPRATROPIUM 0.5MG/ALBUTEROL 2.5MG INH SOL UD 3ML (DUONEB)(J7620) NEB SCH ×4 (02:18→20:00)
[2019-04-23] MEDS: LEVOTHYROXINE 50MCG TABLET (0.05MG) PO SCH (05:18)
[2019-04-23] MEDS: ceFAZolin SOD 1 GM in D5W MINI-BAG PLUS 50 ML IV SCH ×3 (05:19→20:25)
[2019-04-23] MEDS: KCL 20MEQ in NS 1000ML 1,000 ML IV SCH ×3 (05:19→19:47)
[2019-04-23 06:06] LABS: MEAN CORPUSCULAR HEMOGLOBIN 30.3 pg (27.0-33.0); MEAN CORPUSCULAR HGB CONC 31.6 g/dl (32.0-36.5); MEAN CORPUSCULAR VOLUME 95.8 fl (80.0-96.0); PLATELET COUNT, AUTOMATED 139 10^3/uL (150-450); RED BLOOD COUNT 2.61 10^6/uL (4.00-5.40); WHITE BLOOD COUNT 4.6 10^3/uL (4.0-10.0)
[2019-04-23 06:20] LABS: HEMOGLOBIN 7.9 g/dl (12.0-15.5)
[2019-04-23 06:22] LABS: BLOOD UREA NITROGEN 14 MG/DL (7-18); CALCIUM LEVEL 7.5 MG/DL (8.8-10.2); CARBON DIOXIDE LEVEL 25 MEQ/L (21-32); CHLORIDE LEVEL 113 MEQ/L (98-107); CREATININE FOR GFR 0.86 MG/DL (0.55-1.30); GLOMERULAR FILTRATION RATE > 60.0 (>39); GLUCOSE, FASTING 100 MG/DL (70-100); POTASSIUM SERUM 3.8 MEQ/L (3.5-5.1); SODIUM LEVEL 145 MEQ/L (136-145)
[2019-04-23] MEDS: ZENPEP PO SCH ×3 (07:59→18:02)
--- NOTE | 2019-04-23 08:32 | ECHO ---
DATE OF PROCEDURE: 04/22/2019 REFERRING PHYSICIAN: Dr. Lee. INDICATION: Cardiac dysrhythmia. Height 145 cm Weight 49 kg DIMENSION: IVS 1.1 LV 3.7 LVPW 1.3 LA 3.7 Aorta 2.6 Mitral E wave velocity 121, A-wave 130 E prime septal 5.7 E prime lateral 6.5 FINDINGS: The study is of good technical quality. The patient is in sinus rhythm. Left ventricle is normal size and has hyperdynamic contractility. Estimated LVEF approximately 70-75%. Computer calculated ejection fraction was 74%. Right ventricle is normal size and systolic function. Left atrium is severely enlarged (left atrial volume index 66 mL/m2). Right atrium appears at least mildly enlarged. Aortic valve is heavily calcified. I cannot quite comment on its structure but it is most likely tricuspid. There is definite limitation of cusp separation. There are also degenerative abnormalities of mitral valve with mitral annular calcifications. Tricuspid valve appears normal. Pulmonic valve also appears normal. No pericardial effusion is noted. Inferior vena cava was not well seen. Aortic root is normal. Aortic arch and abdominal aorta were not well visualized. Doppler interrogation of aortic valve reveals no insufficiency and approximately moderately severe aortic stenosis, mean gradient across the valve was 27, calculated aortic valve area was 0.8 cm2 but in my opinion this overestimates severity of aortic stenosis. There is approximately moderate mitral insufficiency with slightly eccentric MR jet. There is mild tricuspid insufficiency. Calculated pulmonary artery pressure is in high 30s assuming normal central venous pressure corresponding to mild pulmonary hypertension. Trace pulmonic insufficiency is noted. Mitral inflow pattern and tissue Doppler imaging of mitral annulus reveal grade 1 diastolic dysfunction. CONCLUSIONS: 1. Study is of good technical quality. 2. Normal LV size with mild LVH and hyperdynamic LV systolic function. Grade 1 diastolic dysfunction. 3. Approximately moderately severe calcific aortic stenosis. Mean transaortic gradient 27 mmHg, calculated MADHU 0.8 cm2 - likely overestimating severity of stenosis. 4. Mild tricuspid insufficiency. 5. Unable to estimate central venous pressure but likely mild pulmonary hypertension. COMMENT: SBE prophylaxis is not recommended. It seems unlikely that the patient would have critical aortic stenosis. Considering hyperdynamic LV systolic function, mean gradient 27 mmHg it is unlikely to represent truly severe stenosis. [facility]
[2019-04-23] MEDS: TAMSULOSIN 0.4 MG CAP PO SCH (09:34)
[2019-04-23] MEDS: ROSUVASTATIN 10 MG TAB (CRESTOR) PO SCH (09:34)
[2019-04-23] MEDS: LOSARTAN 50 MG TAB PO SCH ×2 (09:34→20:26)
[2019-04-23] MEDS: LABETALOL 100 MG TAB PO SCH ×2 (09:35→20:25)
[2019-04-23] MEDS: SYMBICORT 160/4.5MCG INHALER 6GM INH SCH ×2 (09:52→20:54)
[2019-04-23] MEDS ORDERED: LEVO250T12 PO (10:44)
[2019-04-23] MEDS ORDERED: FLOM0.4C39 PO (10:44)
[2019-04-23] MEDS ORDERED: LABE10TAB PO (10:44)
--- NOTE | 2019-04-23 15:37 | IPNPDOC ---
Text Note Date of Service The patient was seen on 04/23/19. NOTE SUBJECTIVE: Ms. Magana is a 78-year-old female who has been hospitalized with pyelonephritis. This was complicated by nephrolithiasis and urinary tract infection. She has had hematuria with this as well. She's had a notable decrease to her hemoglobin to 7.9 since admission and is expectant of receiving blood transfusion today. OBJECTIVE: Please see vital signs below Physical exam: HEENT exam: Neck is supple with no adenopathy or thyromegaly, oral mucosa is moist. Cardiovascular exam: Regular rate and rhythm with a normal S1 and S2 and no appreciable murmur or bruit. Abdomen: Soft, nontender, non-distended, mild hematuria. Extremities: No peripheral edema and pedal pulses are palpable. Neuro: No focal neuromotor, sensory or cognition deficit. Skin: On skin exam. Patient is noted to have a significant lesion to her left forearm consistent with possible squamous cell lesion. Patient states has been there for months. She has a smaller lesion to the right side of her face. She states she's never seen a causticiser for these. ASSESSMENT/PLAN: 1. Patient has right-sided pyelonephritis. She has an associated right ureteral stone with hydronephrosis. She is on an tibiotics and Flomax. Urine culture result is pending. Plans are for her to follow-up for evaluation by the urology service. If she has not passed the stone by then they will arrange for further intervention in their office. 2. Acute blood loss anemia. The patient had initially had some edgar hematuria associated with her ureteral stone. Hemoglobin today is 7.9, down from 10.7 at admission. Plans are to transfuse her with at least 1 unit of packed red blood cells; she still has hematuria, although not as severe and will likely decrease her hemoglobin further before she is seen by the urology service. 3. Accelerated hypertension. The patient had had some hypertension with systolics in excess of 200. She is being treated with labetalol and losartan with good response. 4. Skin lesions. Patient has some skin lesions concerning for squamous cell carcinoma. She has never been seen by causticiser. Daughter is at bedside and we have recommended dermatology follow-up/referral. Daughter states the patient has a history of significant sunbathing. VS,Fishbone, I+O VS, Fishbone, I+O Laboratory Tests 04/23/19 05:28 Vital Signs Date Time Temp Pulse Resp B/P (MAP) Pulse Ox O2 Delivery O2 Flow Rate FiO2 04/23/19 15:16 99.2 70 18 125/61 95 Room Air I&O- Last 24 Hours up to 6 AM 04/23/19 06:00 Intake Total 1515 ml Output Total 900 ml Balance 615 ml EUFEMIA WILCOX MD Apr 23, 2019 15:37
[2019-04-23] MEDS: RIVAROXABAN 15 MG TAB (XARELTO) PO SCH (18:01)
[2019-04-24] MEDS: IPRATROPIUM 0.5MG/ALBUTEROL 2.5MG INH SOL UD 3ML (DUONEB)(J7620) NEB SCH ×2 (01:59→07:39)
[2019-04-24 04:00] VITALS: BP 168/70
[2019-04-24] MEDS: ceFAZolin SOD 1 GM in D5W MINI-BAG PLUS 50 ML IV SCH (04:14)
[2019-04-24] MEDS: KCL 20MEQ in NS 1000ML 1,000 ML IV SCH (04:16)
[2019-04-24] MEDS: LEVOTHYROXINE 50MCG TABLET (0.05MG) PO SCH (05:07)
[2019-04-24 05:53] LABS: MEAN CORPUSCULAR HGB CONC 31.8 g/dl (32.0-36.5); MEAN CORPUSCULAR VOLUME 94.3 fl (80.0-96.0); PLATELET COUNT, AUTOMATED 154 10^3/uL (150-450); WHITE BLOOD COUNT 4.3 10^3/uL (4.0-10.0)
[2019-04-24 05:57] LABS: HEMOGLOBIN 10.5 g/dl (12.0-15.5)
[2019-04-24 06:14] LABS: BLOOD UREA NITROGEN 14 MG/DL (7-18); CALCIUM LEVEL 7.9 MG/DL (8.8-10.2); CARBON DIOXIDE LEVEL 19 MEQ/L (21-32); CHLORIDE LEVEL 118 MEQ/L (98-107); CREATININE FOR GFR 0.83 MG/DL (0.55-1.30); GLOMERULAR FILTRATION RATE > 60.0 (>39); GLUCOSE, FASTING 91 MG/DL (70-100); POTASSIUM SERUM 4.5 MEQ/L (3.5-5.1); SODIUM LEVEL 144 MEQ/L (136-145)
[2019-04-24] MEDS: SYMBICORT 160/4.5MCG INHALER 6GM INH SCH (07:40)
[2019-04-24 07:52] VITALS: BP 178/78
[2019-04-24] MEDS: ZENPEP PO SCH (08:09)
[2019-04-24] MEDS: ROSUVASTATIN 10 MG TAB (CRESTOR) PO SCH (08:10)
[2019-04-24] MEDS: TAMSULOSIN 0.4 MG CAP PO SCH (08:10)
[2019-04-24] MEDS: LABETALOL 100 MG TAB PO SCH (08:10)
[2019-04-24 08:11] VITALS: BP 178/78
[2019-04-24] MEDS: LOSARTAN 50 MG TAB PO SCH (08:11)
--- NOTE | 2019-04-24 16:57 | DS.PDOC ---
Discharge Summary General Date of Admission Apr 22, 2019 at 06:32 Date of Discharge April 24, 2019 Specialist/Consultants Involve: LAMBERTO WARREN MD Discharge Summary PROCEDURES PERFORMED DURING STAY: [Echocardiogram, transfusion]. ADMITTING DIAGNOSES: 1. . DISCHARGE DIAGNOSES: 1. . COMPLICATIONS/CHIEF COMPLAINT: Accelerated Hypertension. HISTORY OF PRESENT ILLNESS/HOSPITAL COURSE: . DISCHARGE MEDICATIONS: Please see below. ALLERGIES: Please see below. PHYSICAL EXAMINATION ON DISCHARGE: VITAL SIGNS: Please see below. GENERAL: HEENT: NECK: CARDIOVASCULAR EXAMINATION: RESPIRATORY EXAMINATION: ABDOMINAL EXAMINATION: EXTREMITIES: SKIN: NEUROLOGICAL EXAMINATION: PSYCHIATRIC EXAMINATION: LABORATORY DATA: Please see below. IMAGING: PROGNOSIS: ACTIVITY: [As tolerated]. DIET: DISCHARGE PLAN: DISPOSITION: Home, Self-Care. DISCHARGE INSTRUCTIONS: 1. . ITEMS TO FOLLOWUP ON ON OUTPATIENT: 1. . DISCHARGE CONDITION: [Stable]. TIME SPENT ON DISCHARGE: Greater than minutes. Vital Signs/I&Os Vital Signs Date Time Temp Pulse Resp B/P (MAP) Pulse Ox O2 Delivery O2 Flow Rate FiO2 04/24/19 08:11 178/78 04/24/19 08:10 80 04/24/19 07:52 98.7 18 90 Room Air I&O- Last 24 Hours up to 6 AM 04/24/19 06:00 Intake Total 3375 ml Output Total 1100 ml Balance 2275 ml Laboratory Data Labs 24H Laboratory Tests 2 04/24/19 05:32: Nucleated Red Blood Cells % (auto) 0.0, Anion Gap 7L, Glomerular Filtration Rate > 60.0, Calcium Level 7.9L CBC/BMP Laboratory Tests 04/24/19 05:32 Microbiology Microbiology 04/22/19 Urine Culture - Final, Complete Discharge Medications Scheduled Budesonide/Formoterol (Symbicort 160-4.5 Mcg Inhaler) 6 Gm Hfa.aer.ad, 2 PUFF INH BID, (Reported) Cyanocobalamin (Cyanocobalamin Injection) 1,000 Mcg/1 Ml Vial, 1,000 MCG IM QMONTH, (Reported) Ergocalciferol (Vitamin D2) (Drisdol) 1,250 Mcg Capsule, 50,000 UNIT PO QWEEK, (Reported) FRIDAYS Furosemide (Furosemide) 20 Mg Tablet, 20 MG PO DAILY, (Reported) Labetalol HCl (Labetalol HCl) 100 Mg Tablet, 50 MG PO BID Levothyroxine Sodium (Levothyroxine Sodium) 50 Mcg Tablet, 50 MCG PO QAM, (Reported) Lipase/Protease/Amylase (Zenpep Dr 20,000 Unit Capsule) 1 Each Capsule.dr, 3 CAP PO WM, (Reported) Lipase/Protease/Amylase (Zenpep Dr 20,000 Unit Capsule) 1 Each Capsule.dr, 2 CAP PO ASDIRECTED, (Reported) WITH SNACKS Losartan Potassium (Losartan Potassium) 50 Mg Tablet, 50 MG PO DAILY, (Reported) Rivaroxaban (Xarelto) 20 Mg Tablet, 20 MG PO QHS, (Reported) Rosuvastatin Calcium (Rosuvastatin Calcium) 20 Mg Tablet, 20 MG PO DAILY, (Reported) Tamsulosin HCl (Flomax) 0.4 Mg Capsule, 0.4 MG PO DAILY Scheduled PRN Albuterol Sulfate (Albuterol Sulfate) 2.5 Mg/0.5 Ml Vial.neb, 2.5 MG INH Q4H PRN for SOB/WHEEZING, (Reported) Albuterol Sulfate (Ventolin Hfa) 18 Gm Hfa.aer.ad, 2 PUFF INH Q4H PRN for SHORTNESS OF BREATH, (Reported) Clobetasol Propionate (Clobetasol Emollient 0.05% Crm) 60 Gm Cream..g., 1 APLCT TOP DAILY PRN for ITCHING/SWELLING, (Reported) APPLIES TO LEFTARM/VAGINA Allergies Coded Allergies: atorvastatin (Verified Allergy, Intermediate, mulscle pain /hives, 04/22/19) tramadol (Verified Adverse Reaction, Intermediate, took 2 and had hypertention went to ER, 04/22/19) adhesive (Verified Adverse Reaction, Unknown, tears skin, 04/22/19) gabapentin (Verified Adverse Reaction, Unknown, visual hallucinations, 04/22/19) visual hallucinations EUFEMIA WILCOX MD Apr 24, 2019 16:57
== END 2019-04-24 10:35 | disposition home or self-care (01) ==
LOC: M ED 06:31 → M ED INP 06:32 → M PCU 12:06
PROVIDERS: ADMIT Family Medicine; ATTEND General Practice
DX: I16.0 Hypertensive urgency (principal); J45.901 Unspecified asthma with (acute) exacerbation; N20.1 Calculus of ureter; S81.801A Unspecified open wound, right lower leg, initial encounter; I48.0 Paroxysmal atrial fibrillation; E03.9 Hypothyroidism, unspecified; I10 Essential (primary) hypertension; E78.49 Other hyperlipidemia; E55.9 Vitamin D deficiency, unspecified; K21.9 Gastro-esophageal reflux disease without esophagitis; Z85.41 Personal history of malignant neoplasm of cervix uteri; Z85.028 Personal history of other malignant neoplasm of stomach; Z79.01 Long term (current) use of anticoagulants; Z79.899 Other long term (current) drug therapy; Z88.8 Allergy status to other drugs, medicaments and biological substances; Y92.9 Unspecified place or not applicable; Y93.9 Activity, unspecified
CPT/HCPCS: 36415; 36430; 70450; 71045; 71250; 74176; 80048; 80076; 81001; 82550; 82553; 83690; 84484; 85025; 85027; 86850; 86870; 86900; 86901; 86905; 86920; 87086; 93005; 93041; 93306; 94640; 94760; 96361; 96374; 96375; 96376; 99285; G0378; J0690; J2270; J2405; J3010; P9016

== ENCOUNTER → 2019-05-07 | Outpatient (REF) | payer MEDICARE, OTHER ==
[~2019-05-07] MED LIST changes: +ALB2.5NEB INH; +BISO5TAB14 PO; -BISO5TAB9 PO; +CLOB5CR TOP; +DRIS50003 PO; +FLOM0.4C39 PO; +LABE10TAB PO; +LEVO250T12 PO; +ROSU20TA5 PO; +ZENP1CAP63 PO
[2019-05-07 13:44] LABS: APPEARANCE, URINE CLOUDY (CLEAR); BACTERIA, URINE AUTO 2+ (NEGATIVE); BILIRUBIN, URINE AUTO NEGATIVE (NEGATIVE); BLOOD, URINE BLOOD 1+ (NEGATIVE); COLOR, URINE AMBER (YELLOW); GLUCOSE, URINE (UA) AUTO NEGATIVE (NEGATIVE); GRANULAR CAST, URINE AUTO 3 /LPF; KETONE, URINE AUTO TRACE mg/dL (NEGATIVE); LEUKOCYTE ESTERASE, URINE AUTO 1+ (NEGATIVE); MUCUS, URINE SMALL (NEGATIVE); NITRITE, URINE AUTO NEGATIVE (NEGATIVE); PROTEIN, URINE AUTO NEGATIVE (NEGATIVE); RBC, URINE AUTO 5 /HPF (0-3); SPECIFIC GRAVITY URINE AUTO 1.025 (1.002-1.035); SQUAMOUS EPITHELIAL CELL UR AU 2 /HPF (0-6); WBC, URINE AUTO 9 /HPF (0-3)
== END ==
LOC: M SMT 12:40
PROVIDERS: ATTEND Nurse Practitioner Women's Health
DX: N13.2 Hydronephrosis with renal and ureteral calculous obstruction (principal)
CPT/HCPCS: 81001; 87088; 87186; G0463

== ENCOUNTER → 2019-08-03 | Outpatient (REF) | payer MEDICARE, OTHER | LOC: M LAB REF 08:36 | PROVIDERS: ATTEND Family Medicine | DX: R19.7 Diarrhea, unspecified (principal) ==

== ENCOUNTER → 2019-08-07 | Outpatient (CLI) | payer MEDICARE, OTHER | LOC: M LABSMTC 10:42 | PROVIDERS: ATTEND Family Medicine | DX: Z11.59 Encounter for screening for other viral diseases (principal); Z20.828 Contact with and (suspected) exposure to other viral communicable diseases ==

== ENCOUNTER → 2019-11-09 | Outpatient (CLI) | payer MEDICARE, OTHER ==
[~2019-11-09] MED LIST changes: -CIPR0.3S OS; +CIPR0.3S6 OS; +PANT40TA29 PO; -PANT40TA3 PO
== END ==
LOC: M LABSMTC 07:59
PROVIDERS: ATTEND Anesthesiology
DX: Z01.818 Encounter for other preprocedural examination (principal); Z11.59 Encounter for screening for other viral diseases
CPT/HCPCS: C9803; U0003

== ENCOUNTER 2019-11-14 13:33 | Day surgery (SDC) | payer MEDICARE, OTHER ==
[~2019-11-14] VITALS: Ht 144.8 cm; Wt 47.3 kg
[~2019-11-14 13:33] MED LIST changes: +CIPR0.3S OS; -CIPR0.3S6 OS; +LIDOCAINE 1% MDV 20ML VIAL SQ PRN; +LR 1,000 ML IV ONE; -PANT40TA29 PO; +PANT40TA3 PO
[2019-11-14] MEDS ORDERED: fentaNYL 100 MCG/2 ML INJECTION (J3010) As Ordered ONE (14:47)
[2019-11-14] MEDS ORDERED: propofoL 200 MG/20 ML VIAL As Ordered ONE (14:47)
[2019-11-14] MEDS ORDERED: LIDOCAINE 2% 100MG/5ML SDV (FOR ANES.) As Ordered ONE (14:47)
[2019-11-14] MEDS ORDERED: MIDAZOLAM INJ 2MG/2ML VIAL (J2250 PER 1MG) As Ordered ONE (14:47)
[2019-11-14] MEDS ORDERED: LIDOCAINE VISCOUS 2% SOLN 15ML UDC As Ordered ONE (15:18)
[2019-11-14] MEDS ORDERED: CETACAINE SPRAY 5GM As Ordered ONE (15:18)
[2019-11-14] MEDS ORDERED: ONDANSETRON 4MG/2ML VIAL As Ordered ONE (15:19)
[2019-11-14 16:25] VITALS: BP 193/88
--- NOTE | 2019-11-15 11:08 | RO ---
DATE OF PROCEDURE: 11/14/2019 INDICATION: Aortic stenosis. PROCEDURE: Transesophageal echocardiogram. ANESTHESIOLOGY: Junior Siegel CRNA BRIEF HISTORY: Mrs. Magana is an 79-year-old female who has known aortic stenosis for years but as of lately she has been becoming more and more short of breath and it was felt that aortic stenosis may be severe enough to be the culprit. She underwent cardiac catheterization in [place], but unfortunately they were not able to obtain measurements of the aortic valve and consequently it was requested that transesophageal echocardiogram is performed for better visualization of the aortic valve. I spoke with the patient about the rationale for the procedure and potential outcomes on outpatient basis. She did sign appropriate consent. Reiterated the same just before the procedure and I again explained how the procedure gets done and what are the expected outcomes PROCEDURE NOTE: Procedure was performed in the operating room. The patient presented in fasting condition. After appropriate time-out was taken and all appropriate monitors were applied, her posterior pharynx was anesthetized using Cetacaine spray and viscous lidocaine. She was then positioned in left lateral decubital position. A bite block and face mask were applied. Anesthesiology then sedated the patient and when appropriate level of sedation was accomplished transesophageal Omniplane probe was introduced into esophagus and later stomach without any difficulty. After appropriate images were obtained it was withdrawn. The patient tolerated the procedure well and there were no immediate complications. FINDINGS: The patient has normal left ventricular systolic function with ejection fraction estimated around 60%. Right ventricle also appears to be normal size and systolic function. Both atria appear enlarged. Aortic valve is tricuspid. It is heavily calcified and there is restriction of cusp mobility, but by 2-D imaging it does not appear to represent severe aortic stenosis, especially the between left and right coronary cusp seems to have very good mobility. By color Doppler imaging there is trivial insufficiency and probably moderate stenosis, mean gradient across the valve was 18 mmHg. Mitral valve appears also to have good mobility. There are mild degenerative abnormalities but mobility of leaflets is intact. No significant stenosis and mild insufficiency is noted. Tricuspid valve also appears normal. Good mobility is noted. Trivial insufficiency seen. Quality of TR jet was not sufficient to adequately estimate pulmonary artery pressure. Pulmonic valve was less well seen but grossly appears normal. There is again no stenosis or insufficiency. Left atrial appendage is relatively large, has normal flow velocities and no evidence for thrombus. There is normal flow in both left-sided and right-sided pulmonary veins. Atrial septum is intact based on 2-D and color Doppler imaging. There is prominent atherosclerosis in aortic arch and descending aorta but no protruding thrombi or ulcers are noted. CONCLUSION: 1. Aortic stenosis, likely moderate. 2. No additional valvular disease. 3. Intact left ventricular systolic function. 4. Left atrial appendage free of thrombi. 5. Normal flow in pulmonary veins. 6. Intact atrial septum based on 2-D and color Doppler imaging. 7. Atherosclerosis of aortic arch and descending aorta. COMMENTS: Results of the study were communicated to the patient. She will continue with medical management. I do not believe that aortic stenosis is severe enough to warrant intervention.
== END 2019-11-14 16:34 | disposition home or self-care (01) ==
LOC: M SDC 13:33
PROVIDERS: ATTEND Internal Medicine Cardiovascular Disease
DX: I35.0 Nonrheumatic aortic (valve) stenosis (principal); R06.02 Shortness of breath; I25.10 Atherosclerotic heart disease of native coronary artery without angina pectoris; I25.2 Old myocardial infarction; Z86.73 Personal history of transient ischemic attack (TIA), and cerebral infarction without residual deficits; Z88.8 Allergy status to other drugs, medicaments and biological substances; I48.91 Unspecified atrial fibrillation; Z98.61 Coronary angioplasty status; I10 Essential (primary) hypertension; E03.9 Hypothyroidism, unspecified; Z85.028 Personal history of other malignant neoplasm of stomach; Z92.21 Personal history of antineoplastic chemotherapy; Z92.3 Personal history of irradiation; J44.9 Chronic obstructive pulmonary disease, unspecified; Z79.01 Long term (current) use of anticoagulants; Z87.891 Personal history of nicotine dependence; Z79.899 Other long term (current) drug therapy
CPT/HCPCS: 93312; 93320; 93325; J2250; J2405; J3010

== ENCOUNTER → 2020-01-22 | Outpatient (REF) | payer MEDICARE, OTHER ==
[~2020-01-22] MED LIST changes: -CIPR0.3S OS; +CIPR0.3S6 OS; -LIDOCAINE 1% MDV 20ML VIAL SQ PRN; -LR 1,000 ML IV ONE; +PANT40TA29 PO; -PANT40TA3 PO
== END ==
LOC: M LAB REF 18:47
PROVIDERS: ATTEND Dermatology
DX: C44.320 Squamous cell carcinoma of skin of unspecified parts of face (principal); D04.71 Carcinoma in situ of skin of right lower limb, including hip; L57.0 Actinic keratosis

== ENCOUNTER → 2020-02-26 | Outpatient (REF) | payer MEDICARE, OTHER ==
[~2020-02-26] MED LIST changes: +AMLO1TAB25 PO; +AMLO2.5T3 PO; +AMLO25TA PO; +CHLO25TA PO; +CLOB5CR PV; -CLOB5CR TOP; +COZA50TA PO; +HYDR25TAB PO; +LABE100T4 PO; -LABE10TAB PO; +MUPI2OI TOP; +SYNT75TA PO
== END ==
LOC: M LAB REF 13:54
PROVIDERS: ATTEND Dermatology
DX: D04.62 Carcinoma in situ of skin of left upper limb, including shoulder (principal); S41.102A Unspecified open wound of left upper arm, initial encounter; X58.XXXA Exposure to other specified factors, initial encounter; Y92.9 Unspecified place or not applicable

== ENCOUNTER 2020-03-19 15:32 | Observation (INO) | payer MEDICARE, OTHER ==
[~2020-03-19] VITALS: Ht 144.8 cm; Wt 49.9 kg
[~2020-03-19 15:32] MED LIST changes: -AMLO1TAB25 PO; -AMLO2.5T3 PO; -AMLO25TA PO; -CHLO25TA PO; -COZA50TA PO; -HYDR25TAB PO; -MUPI2OI TOP; -SYNT75TA PO
[2020-03-19] MEDS ORDERED: LABETALOL 100MG/20ML VIAL IV STA ×2 (16:56→18:05)
--- NOTE | 2020-03-19 17:23 | REPVR ---
PROCEDURE INFORMATION: Exam: CT Head Without Contrast Exam date and time: 03/19/2020 5:02 PM Age: 79 years old Clinical indication: Pain; Other: Hypertension; Headache; Additional info: Headache HTN TECHNIQUE: Imaging protocol: Computed tomography of the head without contrast. Radiation optimization: All CT scans at this facility use at least one of these dose optimization techniques: automated exposure control; mA and/or kV adjustment per patient size (includes targeted exams where dose is matched to clinical indication); or iterative reconstruction. COMPARISON: CT Head without contrast 04/22/2019 8:40 AM FINDINGS: Brain: There are moderate periventricular and subcortical lucencies consistent with chronic microvascular ischemic changes. The golden-white differentiation is maintained. No hemorrhage. No edema. Cerebral ventricles: No ventriculomegaly. Bones/joints: Unremarkable. No acute fracture. Paranasal sinuses: Visualized sinuses are unremarkable. No fluid levels. Mastoid air cells: Visualized mastoid air cells are well aerated. Soft tissues: Unremarkable. Bilateral cataract surgery. IMPRESSION: No acute intracranial abnormality. Chronic microvascular ischemic changes. Electronically signed by: Reynaldo Tom On 03/19/2020 17:23:04 PM
[2020-03-19 17:31] LABS: EOS # 0.5 10^3/uL (0.0-0.5); EOS % 10.8 % (0.0-3.0); HEMOGLOBIN 11.1 g/dl (12.0-15.5); LYMPH # 1.2 10^3/uL (1.5-5.0); LYMPH % 27.8 % (24.0-44.0); MEAN CORPUSCULAR HEMOGLOBIN 30.2 pg (27.0-33.0); MEAN CORPUSCULAR HGB CONC 31.7 g/dl (32.0-36.5); MEAN CORPUSCULAR VOLUME 95.1 fl (80.0-96.0); MONO # 0.3 10^3/uL (0.0-0.8); MONO % 7.2 % (0.0-5.0); NEUTROPHILS # 2.2 10^3/uL (1.5-8.5); PLATELET COUNT, AUTOMATED 180 10^3/uL (150-450); RED BLOOD COUNT 3.68 10^6/uL (4.00-5.40); WHITE BLOOD COUNT 4.2 10^3/uL (4.0-10.0)
[2020-03-19 17:46] LABS: INR 1.08; PROTHROMBIN TIME 14.2 SECONDS (12.5-14.3)
[2020-03-19 17:47] LABS: PARTIAL THROMBOPLASTIN TIME 37.1 SECONDS (24.2-38.5)
[2020-03-19 18:11] LABS: ALBUMIN 3.3 GM/DL (3.2-5.2); ALT/SGPT 21 U/L (12-78); BILIRUBIN,DIRECT 0.1 MG/DL (0.0-0.2); BILIRUBIN,TOTAL 0.3 MG/DL (0.2-1.0); BLOOD UREA NITROGEN 12 MG/DL (7-18); CALCIUM LEVEL 8.5 MG/DL (8.8-10.2); CARBON DIOXIDE LEVEL 29 MEQ/L (21-32); CHLORIDE LEVEL 108 MEQ/L (98-107); CK-MB VALUE MASS 2.7 NG/ML (<3.6); CPK CREATINE PHOSPHOKINASE 81 U/L (26-192); CREATININE FOR GFR 0.68 MG/DL (0.55-1.30); FREE T4 0.98 NG/DL (0.76-1.46); GLOMERULAR FILTRATION RATE > 60.0 (>32); GLUCOSE, FASTING 98 MG/DL (70-100); MB/CK RELATIVE INDEX 3.33 (< OR =4); POTASSIUM SERUM 3.4 MEQ/L (3.5-5.1); SODIUM LEVEL 143 MEQ/L (136-145); TOTAL PROTEIN 6.6 GM/DL (6.4-8.2); TROPONIN I < 0.02 NG/ML (< 0.10)
--- NOTE | 2020-03-19 18:23 | REP ---
INDICATION: htn eval for CHF COMPARISON: 04/22/2019 as well as other prior exams. TECHNIQUE: PA/Lateral FINDINGS: Lungs: Clear, no infiltrate. Heart: Normal in size. Mediastinum: Mediastinal silhouette unremarkable. Pleural angles: There is chronic blunting of left costophrenic angle compatible with mild chronic left pleural thickening/fluid.. Bones and soft tissues: There are degenerative changes of the spine with stable compression deformities of a few midthoracic vertebral bodies. IMPRESSION: No acute pulmonary disease. Chronic changes as above. <Electronically signed by Neto Larson > 03/19/20 [id number]
[2020-03-19] MEDS ORDERED: POTASSIUM CHLORIDE 10 MEQ SR TABLET PO ONE (18:45)
[2020-03-19] MEDS ORDERED: LABE100T4 PO (19:22)
[2020-03-19] MEDS ORDERED: MUPI2OI TOP (19:22)
[2020-03-19] MEDS ORDERED: MOM 30ML SUSPENSION UDC PO PRN (20:30)
[2020-03-19] MEDS ORDERED: ACETAMINOPHEN TAB 650MG DOSE (2X325MG) PO PRN (20:30)
[2020-03-19] MEDS ORDERED: MAALOX 30 ML SUSP *UDC PO PRN (20:30)
--- NOTE | 2020-03-19 20:30 | HPEPDOC ---
[facility] Medical History & Physical Date of Admission Mar 19, 2020 Date of Service: Mar 19, 2020 Primary Care Physician: GLADIS CORONADO DO Attending Physician: NOLA ELLIS MD History and Physical TIME OF SERVICE: 905 PM CHIEF COMPLAINT: Sent by PCP HISTORY OF PRESENT ILLNESS: This 79-year-old female was sent from her PCPs office for evaluation of high blood pressure. Apparently her Starlix blood pressure was was as high as 230. Per discussion with Dr. Toscano after administering 30 mg of labetalol. The patient's systolic blood pressure improved to the 170s. At the time of my evaluation, the patient denied having any chest pain, dizziness, shortness of breath or falling. She admits to having a bad headache along with blurry vision last night that resolved this morning prior to visiting her primary care provider's office. She has chronic back and abdominal pain that have not changed recently. REVIEW OF SYSTEMS: 12 point review of systems negative except as listed in HPI PAST MEDICAL/ SURGICAL HISTORY: Chronic hypertension Asthma TIA Atrial fibrillation Hypothyroidism Anemia of chronic disease Osteoporosis Myelodysplastic syndrome CAD status post on placement in proximal circumflex Carotid artery disease Stomach cancer in remission, status post chemotherapy and radiation therapy Right hip replacement Total abdominal hysterectomy with bilateral salpingo-oophorectomy and appendectomy Left ankle surgery Laparoscopic lysis of adhesions converted to Billroth II to Chato-en-Y gastrojejunostomy and near total gastrectomy SOCIAL HISTORY: Former smoker Lives alone FAMILY HISTORY: Pulmonary embolism Hypertension CHF Breast cancer ALLERGIES: Please see below. HOME MEDICATIONS: Please see below. PHYSICAL EXAMINATION: Vital Signs Date Time Temp Pulse Resp B/P (MAP) Pulse Ox O2 Delivery O2 Flow Rate FiO2 03/19/20 15:33 98.7 78 20 201/95 (130) 97 Room Air GEN: slim build/ well developed/ NAD INTEGUMENT: not flushed/ not jaundice HEENT: lips acyanotic /mucus membranes moist and pink CVS: RRR/NMRG/ radial and dorsalis pedis pulses intact / no lower extremity edema LUNGS: able to speak full sentences without stopping to take a breath / lungs are clear to auscultation bilaterally on room air ABDOMEN: Contour (flat ) / soft & not tender with palpation MSK/EXTREMITIES: NCAT NEURO: CN 2-12 are grossly intact / speech is not dysarthric PSYCH: alert and oriented to person place and time/ able to understand and follow all commands LABORATORY DATA: 03/19/20 16:54 Immature Granulocyte % (Auto) 0.2, Neutrophils (%) (Auto) 53.0, Lymphocytes (%) (Auto) 27.8, Monocytes (%) (Auto) 7.2H, Eosinophils (%) (Auto) 10.8H, Basophils (%) (Auto) 1.0, Neutrophils # (Auto) 2.2, Lymphocytes # (Auto) 1.2L, Monocytes # (Auto) 0.3, Eosinophils # (Auto) 0.5, Basophils # (Auto) 0.0, Nucleated Red Bloo d Cells % (auto) 0.0, Prothrombin Time 14.2H, Prothromb Time International Ratio 1.08, Activated Partial Thromboplast Time 37.1, Anion Gap 6L, Glomerular Filtration Rate > 60.0, Calcium Level 8.5L, Total Bilirubin 0.3, Direct Bilirubin 0.1, Aspartate Amino Transf (AST/SGOT) 19, Alanine Aminotransferase (ALT/SGPT) 21, Alkaline Phosphatase 98, Total Creatine Kinase 81, Creatine Kinase MB 2.7, Creatine Kinase MB Relative Index 3.33, Troponin I < 0.02, Total Protein 6.6, Albumin 3.3, Albumin/Globulin Ratio 1.0L, Thyroid Stimulating Hormone (TSH) 5.520H, Free Thyroxine 0.98 03/19/20 18:30: Coronavirus (COVID-19)(PCR) NEGATIVE IMAGING: CT Head "No acute intracranial abnormality. Chronic microvascular ischemic changes" Chest xray "No acute pulmonary disease. Chronic changes as above." ASSESSMENT: is an 79 yr old w a hx of Chronic hypertension, Asthma, TIA, Atrial fibrillation, Hypothyroidism, Anemia of chronic disease, Osteoporosis, Myelodysplastic syndrome, CAD status post on placement in proximal circumflex, Carotid artery disease and Stomach cancer in remission who be admitted for management of hypertensive urgency PLAN: 1. Uncontrolled Urgency -resolving MUNGUIA may have been due to uncontrolled BP -EKG, Trop and CT head unremarkable Plan: admit to PCU / will aim to lower BP by 25% w/in the first 2-4 hours with target BP of <160/100 / resume labetalol and losartan add amoldipine / low salt diet 2. Hypokalemia K repleted in ER Plan: f/u Mg 3. Asthma Plan: Ventolin and Symbicort 4. Atrial fibrillation Plan: eliquis 5. Hypothyroidism Plan: levothyroxine 6. Anemia of chronic disease Plan: f/u CBC DVT PROPHYLAXIS: n/a on NOAC DISPOSITION: home after less than than 2 midnight's stay Home Medications Scheduled Amlodipine Besylate (Amlodipine Besylate) 2.5 Mg Tablet, 2.5 MG PO QAM Budesonide/Formoterol (Symbicort 160-4.5 Mcg Inhaler) 6 Gm Hfa.aer.ad, 2 PUFF INH BID Cyanocobalamin (Cyanocobalamin Injection) 1,000 Mcg/1 Ml Vial, 1,000 MCG IM QM ONTH Ergocalciferol (Vitamin D2) (Drisdol) 1,250 Mcg Capsule, 50,000 UNIT PO QWEEK FRIDAYS Labetalol HCl (Labetalol HCl) 100 Mg Tablet, 50 MG PO BID Levothyroxine Sodium (Levothyroxine Sodium) 50 Mcg Tablet, 75 MCG PO QAM INCREASED TO 75 MCG 03/19/20 Lipase/Protease/Amylase (Robin Arriaga 20,000 Unit Capsule) 1 Each Capsule.dr, 3 CAP PO WM Lipase/Protease/Amylase (Robin Arriaga 20,000 Unit Capsule) 1 Each Capsule.dr, 2 CAP PO ASDIRECTED WITH SNACKS Losartan Potassium (Losartan Potassium) 50 Mg Tablet, 50 MG PO DAILY Mupirocin (Mupirocin) 2 % Oint...g., 1 APLCT TOP TID APPLIES TO ARM Rivaroxaban (Xarelto) 20 Mg Tablet, 20 MG PO QHS Scheduled PRN Albuterol Sulfate (Albuterol Sulfate) 2.5 Mg/0.5 Ml Vial.neb, 2.5 MG INH Q4H PRN for SOB/WHEEZING Albuterol Sulfate (Ventolin Hfa) 18 Gm Hfa.aer.ad, 2 PUFF INH Q4H PRN for S HORTNESS OF BREATH Clobetasol Propionate (Clobetasol Emollient 0.05% Crm) 60 Gm Cream..g., 1 APLCT PV DAILY PRN for ITCHING/SWELLING Allergies Coded Allergies: atorvastatin (Verified Allergy, Intermediate, mulscle pain /hives, 04/22/19) tramadol (Verified Adverse Reaction, Intermediate, took 2 and had hypertention went to ER, 04/22/19) adhesive (Verified Adverse Reaction, Unknown, tears skin, 04/22/19) gabapentin (Verified Adverse Reaction, Unknown, visual hallucinations, 04/22/19) visual hallucinations A-FIB/CHADSVASC A-FIB History Current/History of A-Fib/PAF?: Yes Current PO Anticoag Therapy: Yes NOLA ELLIS MD Mar 19, 2020 20:30
[2020-03-19 20:53] LABS: MAGNESIUM LEVEL 2.2 MG/DL (1.8-2.4)
[2020-03-19] MEDS ORDERED: amLODIPine 5 MG TAB PO ONE (21:00)
[2020-03-19] MEDS ORDERED: RIVAROXABAN 20 MG TAB (XARELTO) PO SCH (21:00)
[2020-03-19 23:15] VITALS: BP 148/58
[2020-03-19] MEDS ORDERED: ALBUTEROL 90 MCG/ACT 8GM HFA INHALER INH PRN (23:15)
[2020-03-19] MEDS ORDERED: ALBUTEROL SULFATE 2.5 MG/0.5 ML INH NEB SOLN INH PRN (23:15)
[2020-03-19] MEDS ORDERED: PILL CUTTER 1 EACH XX PRN (23:30)
[2020-03-20] MEDS: LABETALOL 100 MG TAB PO SCH ×2 (01:16→08:14)
[2020-03-20 02:00] VITALS: BP 143/61
[2020-03-20 06:00] VITALS: BP 151/67
[2020-03-20] MEDS ORDERED: LEVOTHYROXINE 75MCG TABLET (0.075MG) PO SCH (06:00)
[2020-03-20 06:33] LABS: HEMATOCRIT 32.2 % (36.0-47.0); HEMOGLOBIN 9.7 g/dl (12.0-15.5); MEAN CORPUSCULAR HEMOGLOBIN 29.3 pg (27.0-33.0); MEAN CORPUSCULAR HGB CONC 30.1 g/dl (32.0-36.5); MEAN CORPUSCULAR VOLUME 97.3 fl (80.0-96.0); PLATELET COUNT, AUTOMATED 164 10^3/uL (150-450); RED BLOOD COUNT 3.31 10^6/uL (4.00-5.40); WHITE BLOOD COUNT 3.8 10^3/uL (4.0-10.0)
[2020-03-20 07:01] LABS: BLOOD UREA NITROGEN 13 MG/DL (7-18); CALCIUM LEVEL 8.2 MG/DL (8.8-10.2); CARBON DIOXIDE LEVEL 29 MEQ/L (21-32); CHLORIDE LEVEL 112 MEQ/L (98-107); GLOMERULAR FILTRATION RATE > 60.0 (>32); GLUCOSE, FASTING 84 MG/DL (70-100); POTASSIUM SERUM 4.3 MEQ/L (3.5-5.1); SODIUM LEVEL 144 MEQ/L (136-145)
[2020-03-20] MEDS ORDERED: SYMBICORT 160/4.5MCG INHALER 6GM INH SCH (08:00)
[2020-03-20 08:14] VITALS: BP 152/65
[2020-03-20] MEDS ORDERED: VITAMIN D 50,000 UNITS CAPSULE (ERGOCALCIFEROL 1.25MG) PO SCH (09:00)
[2020-03-20] MEDS ORDERED: LOSARTAN 50MG TABLET PO SCH (09:00)
[2020-03-20] MEDS ORDERED: PREVNAR 13 VACCINE SYRINGE IM ONE (09:00)
[2020-03-20] MEDS ORDERED: AMLO25TA PO ×2 (09:02→09:04)
[2020-03-20 10:00] VITALS: BP 153/69
--- NOTE | 2020-03-20 16:02 | DS.PDOC ---
Discharge Summary General Date of Admission Mar 19, 2020 at 15:33 Date of Discharge 03/20/20 Attending Physician: Vickie Acuña MD Discharge Summary HISTORY OF PRESENT ILLNESS: This 79-year-old female was sent from her PCPs office for evaluation of high blood pressure. Apparently her Starlix blood pressure was was as high as 230. Per discussion with Dr. Toscano after administering 30 mg of labetalol. The patient's systolic blood pressure improved to the 170s. At the time of my evaluation, the patient denied having any chest pain, dizziness, shortness of breath or falling. She admits to having a bad headache along with blurry vision last night that resolved this morning prior to visiting her primary care provider's office. She has chronic back and abdominal pain that have not changed recently. HOSPITAL COURSE: Overnight patient had no acute complaints. BP stabilized and ranged from 117-153/65-69 mmHg. She was started on amlodipine 2.5 mg PO AM in addition to morning medications. She as asymptomatic by AM, denied headache, lightheadedness, dizziness, shortness of breath, fevers or chills. Decision was made to d/c home to f/u with PCP in 1-2 weeks after discharge. PAST MEDICAL/ SURGICAL HISTORY: Chronic hypertension Asthma TIA Atrial fibrillation Hypothyroidism Anemia of chronic disease Osteoporosis Myelodysplastic syndrome CAD status post on placement in proximal circumflex Carotid artery disease Stomach cancer in remission, status post chemotherapy and radiation therapy Right hip replacement Total abdominal hysterectomy with bilateral salpingo-oophorectomy and appendectomy Left ankle surgery Laparoscopic lysis of adhesions converted to Billroth II to Chato-en-Y gastrojejunostomy and near total gastrectomy SOCIAL HISTORY: Former smoker Lives alone FAMILY HISTORY: Pulmonary embolism Hypertension CHF Breast cancer ALLERGIES: Please see below. HOME MEDICATIONS: Please see below. PHYSICAL EXAMINATION: VITAL SIGNS: Please see below. GEN: slim build/ well developed/ NAD INTEGUMENT: not flushed/ not jaundice HEENT: lips acyanotic /mucus membranes moist and pink CVS: RRR/NMRG/ radial and dorsalis pedis pulses intact / no lower extremity durga ma LUNGS: able to speak full sentences without stopping to take a breath / lungs are clear to auscultation bilaterally on room air ABDOMEN: Contour (flat ) / soft & not tender with palpation MSK/EXTREMITIES: NCAT NEURO: CN 2-12 are grossly intact / speech is not dysarthric PSYCH: alert and oriented to person place and time/ able to understand and follow all commands LABORATORY DATA: See below. IMAGING: CT Head "No acute intracranial abnormality. Chronic microvascular ischemic changes" Chest xray "No acute pulmonary disease. Chronic changes as above." ASSESSMENT: is an 79 yr old w a hx of Chronic hypertension, Asthma, TIA, Atrial fibrillation, Hypothyroidism, Anemia of chronic disease, Osteoporosis, Myelodysplastic syndrome, CAD status post on placement in proximal circumflex, Carotid artery disease and Stomach cancer in remission who be admitted for management of hypertensive urgency PLAN: 1. Hypertensive urgency-resolved. Hx of HTN -MUNGUIA may have been due to uncontrolled BP -EKG, Trop and CT head unremarkable -BP much improved -C/w home medications plus amlodipine AM. -To follow up closely with PCP 2. Hypokalemia- resolved. K repleted in ER 3. Asthma -Stable. -C/w home meds 4. Atrial fibrillation -C/w eliquis 5. Hypothyroidism -C/w levothyroxine 6. Anemia of chronic disease -F/u with PCP o/p DISPOSITION: Discharged home in improved condition. F/u with PCP within 1-2 weeks after discharge. TIME SPENT ON DISCHARGE: Greater than 30 minutes. Vital Signs/I&Os Vital Signs Date Time Temp Pulse Resp B/P (MAP) Pulse Ox O2 Delivery O2 Flow Rate FiO2 03/20/20 10:00 97.9 59 16 153/69 (97) 97 Room Air I&O- Last 24 Hours up to 6 AM 03/20/20 06:00 Intake Total 210 ml Output Total 175 ml Balance 35 ml Laboratory Data Labs 24H Laboratory Tests 2 03/19/20 16:54: Immature Granulocyte % (Auto) 0.2, Neutrophils (%) (Auto) 53.0, Lymphocytes (%) (Auto) 27.8, Monocytes (%) (Auto) 7.2H, Eosinophils (%) (Auto) 10.8H, Basophils (%) (Auto) 1.0, Neutrophils # (Auto) 2.2, Lymphocytes # (Auto) 1.2L, Monocytes # (Auto) 0.3, Eosinophils # (Auto) 0.5, Basophils # (Auto) 0.0, Nucleated Red Blood Cells % (auto) 0.0, Prothrombin Time 14.2H, Prothromb Time International Ratio 1.08, Activated Partial Thromboplast Time 37.1, Anion Gap 6L, Glomerular Filtration Rate > 60.0, Calcium Level 8.5L, Magnesium Level 2.2, Total Bilirubin 0.3, Direct Bilirubin 0.1, Aspartate Amino Transf (AST/SGOT) 19, Alanine Aminotransferase (ALT/SGPT) 21, Alkaline Phosphatase 98, Total Creatine Kinase 81, Creatine Kinase MB 2.7, Creatine Kinase MB Relative Index 3.33, Troponin I < 0.02, Total Protein 6.6, Albumin 3.3, Albumin/Globulin Ratio 1.0L, Thyroid Stimulating Hormone (TSH) 5.520H, Free Thyroxine 0.98 03/19/20 18:30: Coronavirus (COVID-19)(PCR) NEGATIVE 03/20/20 05:32: Nucleated Red Blood Cells % (auto) 0.0, Anion Gap 3L, Glomerular Filtration Rate > 60.0, Calcium Level 8.2L CBC/BMP Laboratory Tests 03/19/20 16:54 03/20/20 05:32 Discharge Medications Scheduled Amlodipine Besylate (Amlodipine Besylate) 2.5 Mg Tablet, 2.5 MG PO QAM Budesonide/Formoterol (Symbicort 160-4.5 Mcg Inhaler) 6 Gm Hfa.aer.ad, 2 PUFF INH BID, (Reported) Cyanocobalamin (Cyanocobalamin Injection) 1,000 Mcg/1 Ml Vial, 1,000 MCG IM QMONTH, (Reported) Ergocalciferol (Vitamin D2) (Drisdol) 1,250 Mcg Capsule, 50,000 UNIT PO QWEEK, (Reported) FRIDAYS Labetalol HCl (Labetalol HCl) 100 Mg Tablet, 50 MG PO BID, (Reported) Levothyroxine Sodium (Levothyroxine Sodium) 50 Mcg Tablet, 75 MCG PO QAM, (Reported) INCREASED TO 75 MCG 03/19/20 Lipase/Protease/Amylase (Pattiep 20,000 Unit Capsule) 1 Each Capsule.dr, 3 CAP PO WM, (Reported) Lipase/Protease/Amylase (Asherpep 20,000 Unit Capsule) 1 Each Capsule.dr, 2 CAP PO ASDIRECTED, (Reported) WITH SNACKS Losartan Potassium (Losartan Potassium) 50 Mg Tablet, 50 MG PO DAILY, (Reported) Mupirocin (Mupirocin) 2 % Oint...g., 1 APLCT TOP TID, (Reported) APPLIES TO ARM Rivaroxaban (Xarelto) 20 Mg Tablet, 20 MG PO QHS, (Reported) Scheduled PRN Albuterol Sulfate (Albuterol Sulfate) 2.5 Mg/0.5 Ml Vial.neb, 2.5 MG INH Q4H PRN for SOB/WHEEZING, (Reported) Albuterol Sulfate (Ventolin Hfa) 18 Gm Hfa.aer.ad, 2 PUFF INH Q4H PRN for SHORTNESS OF BREATH, (Reported) Clobetasol Propionate (Clobetasol Emollient 0.05% Crm) 60 Gm Cream..g., 1 APLCT PV DAILY PRN for ITCHING/SWELLING, (Reported) Allergies Coded Allergies: atorvastatin (Verified Allergy, Intermediate, mulscle pain /hives, 04/22/19) tramadol (Verified Adverse Reaction, Intermediate, took 2 and had hypertention went to ER, 04/22/19) adhesive (Verified Adverse Reaction, Unknown, tears skin, 04/22/19) gabapentin (Verified Adverse Reaction, Unknown, visual hallucinations, 04/22/19) visual hallucinations Vickie Acuña MD Mar 20, 2020 16:02
--- NOTE | 2020-03-20 21:30 | ECGEPIP ---
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
== END 2020-03-20 11:08 | disposition home or self-care (01) ==
LOC: M ED 15:32 → M ED INP 15:33 → ENRESERV 22:49 → M MSPAV 23:15
PROVIDERS: ADMIT Internal Medicine; ATTEND Internal Medicine
DX: I16.0 Hypertensive urgency (principal); I10 Essential (primary) hypertension; E87.6 Hypokalemia; J45.909 Unspecified asthma, uncomplicated; I48.91 Unspecified atrial fibrillation; Z86.73 Personal history of transient ischemic attack (TIA), and cerebral infarction without residual deficits; D63.8 Anemia in other chronic diseases classified elsewhere; M81.0 Age-related osteoporosis without current pathological fracture; E03.9 Hypothyroidism, unspecified; D46.9 Myelodysplastic syndrome, unspecified; I25.10 Atherosclerotic heart disease of native coronary artery without angina pectoris; Z85.028 Personal history of other malignant neoplasm of stomach; Z92.3 Personal history of irradiation; Z92.21 Personal history of antineoplastic chemotherapy; Z87.891 Personal history of nicotine dependence; Z79.899 Other long term (current) drug therapy; Z88.8 Allergy status to other drugs, medicaments and biological substances
CPT/HCPCS: 36415; 70450; 71046; 80048; 80076; 82550; 82553; 83735; 84439; 84443; 84484; 85025; 85027; 85610; 85730; 90670; 93005; 93041; 94664; 94760; 96374; 96376; 97116; 97161; 99285; G0009; G0378; U0002

== ENCOUNTER 2020-03-23 18:30 | Observation (INO) | payer MEDICARE, OTHER ==
[~2020-03-23] VITALS: Ht 144.8 cm; Wt 45.5 kg
[~2020-03-23 18:30] MED LIST changes: +AMLO25TA PO; +MUPI2OI TOP
[2020-03-23] MEDS ORDERED: LABETALOL 100MG/20ML VIAL IV STA ×2 (19:17→20:22)
[2020-03-23 19:46] LABS: BASO # 0.1 10^3/uL (0.0-0.2); BASO % 1.2 % (0.0-1.0); EOS # 0.4 10^3/uL (0.0-0.5); EOS % 8.4 % (0.0-3.0); HEMATOCRIT 34.6 % (36.0-47.0); LYMPH # 1.2 10^3/uL (1.5-5.0); LYMPH % 29.6 % (24.0-44.0); MEAN CORPUSCULAR HEMOGLOBIN 30.2 pg (27.0-33.0); MEAN CORPUSCULAR HGB CONC 31.8 g/dl (32.0-36.5); MEAN CORPUSCULAR VOLUME 95.1 fl (80.0-96.0); MONO # 0.3 10^3/uL (0.0-0.8); MONO % 7.7 % (0.0-5.0); NEUTROPHILS # 2.2 10^3/uL (1.5-8.5); NEUTROPHILS % 52.9 % (36.0-66.0); PLATELET COUNT, AUTOMATED 202 10^3/uL (150-450); RED BLOOD COUNT 3.64 10^6/uL (4.00-5.40); WHITE BLOOD COUNT 4.2 10^3/uL (4.0-10.0)
[2020-03-23 19:58] LABS: INR 1.74; PROTHROMBIN TIME 20.7 SECONDS (12.5-14.3)
[2020-03-23 19:59] LABS: PARTIAL THROMBOPLASTIN TIME 43.3 SECONDS (24.2-38.5)
--- NOTE | 2020-03-23 20:06 | REPVR ---
PROCEDURE INFORMATION: Exam: CT Head Without Contrast Exam date and time: 03/23/2020 7:51 PM Age: 79 years old Clinical indication: Pain; Headache; Additional info: HTN headache TECHNIQUE: Imaging protocol: Computed tomography of the head without contrast. Radiation optimization: All CT scans at this facility use at least one of these dose optimization techniques: automated exposure control; mA and/or kV adjustment per patient size (includes targeted exams where dose is matched to clinical indication); or iterative reconstruction. COMPARISON: CT Head without contrast 03/19/2020 4:58 PM FINDINGS: Brain: Decreased attenuation of the supratentorial white matter is likely secondary to chronic microvascular ischemia. No acute intracranial hemorrhage. Cerebral ventricles: Ventricular and subarachnoid spaces are age appropriate. Bones/joints: Unremarkable. No acute fracture. Paranasal sinuses: Obdw-bt-thyxepxw paranasal sinus disease. Mastoid air cells: Visualized mastoid air cells are well aerated. Vasculature: Intracranial vascular calcification. Soft tissues: Unremarkable. IMPRESSION: No acute intracranial abnormality. Electronically signed by: Juanito Lombardi On 03/23/2020 20:05:59 PM
[2020-03-23 20:14] LABS: ALBUMIN 3.3 GM/DL (3.2-5.2); ALT/SGPT 23 U/L (12-78); BILIRUBIN,DIRECT < 0.1 MG/DL (0.0-0.2); BILIRUBIN,TOTAL 0.2 MG/DL (0.2-1.0); BLOOD UREA NITROGEN 14 MG/DL (7-18); CALCIUM LEVEL 8.8 MG/DL (8.8-10.2); CARBON DIOXIDE LEVEL 25 MEQ/L (21-32); CHLORIDE LEVEL 110 MEQ/L (98-107); CK-MB VALUE MASS 2.5 NG/ML (<3.6); CPK CREATINE PHOSPHOKINASE 85 U/L (26-192); CREATININE FOR GFR 0.71 MG/DL (0.55-1.30); FREE T4 1.08 NG/DL (0.76-1.46); GLOMERULAR FILTRATION RATE > 60.0 (>32); GLUCOSE, FASTING 121 MG/DL (70-100); MB/CK RELATIVE INDEX 2.94 (< OR =4); SODIUM LEVEL 142 MEQ/L (136-145); TOTAL PROTEIN 6.7 GM/DL (6.4-8.2); TROPONIN I < 0.02 NG/ML (< 0.10)
--- NOTE | 2020-03-23 20:17 | REPVR ---
PROCEDURE INFORMATION: Exam: XR Chest, 2 Views Exam date and time: 03/23/2020 8:09 PM Age: 79 years old Clinical indication: Chest pain TECHNIQUE: Imaging protocol: XR of the chest Views: 2 views. COMPARISON: CT Chest without contrast 04/22/2019 11:25 AM FINDINGS: Lungs: Unremarkable. No consolidation. Pleural space: Small left-sided pleural effusion. Heart/Mediastinum: Borderline cardiomegaly. Vasculature: Calcification involving the thoracic aorta. Bones/joints: Osteopenia. Thoracic compression fractures are similar from prior examination. There are degenerative changes involving the spine. IMPRESSION: Small left-sided pleural effusion. Electronically signed by: Juanito Lombardi On 03/23/2020 20:17:09 PM
--- NOTE | 2020-03-23 20:50 | HPEPDOC ---
[facility] Medical History & Physical Date of Admission Mar 23, 2020 Date of Service: Mar 23, 2020 Attending Physician: NOLA ELLIS MD History and Physical CHIEF COMPLAINT: High blood pressure HISTORY OF PRESENT ILLNESS: Patient is an 79-year-old female who presented to the emergency department the evening of 03/23/20 with a chief complaint of elevated blood pressure. Patient was admitted to the hospital on 03/19/20 and discharged 03/20/20. Abdominal discharge, amlodipine 5 mg QAM was added to patient's previous regimen of labetalol and losartan. She states that she's been monitoring her blood pressure home every 2 hours since her discharge. She is currently scheduled to meet her hack saw operator, Dr. Acosta on 03/25/20 and with her PCP on 03/30/20. She shares that around noon time today, she began experiencing a mild headache. At about 1600 she was noticed some very mild, intermittent blurry vision. When she checked her blood pressure at home, found to be 255 systolic. Patient then proceeded to resent to the emergency department for evaluation. Upon presentation, patient's family afebrile, pulse 77, respiratory rate 18 and maintaining 96% on room air. Presenting blood pressure of 115/98 (137). Patient received 10 mg of labetalol IV , and an additional 20 mg IV. Blood pressure fell to 175/80, though it subsequently increased to 199/87. CBC does not show a white count, H/H of 11/34.6, BUNs/Cr of 14/0.71, liver function within normal limits, troponins negative, mild elevation of TSH 5.21, free T4 1 0.08. Given her undulating pressures, patient be admitted to the hospital for observation. PAST MEDICAL HISTORY: Chronic hypertension Asthma TIA Atrial fibrillation Hypothyroidism Anemia of chronic disease Osteoporosis Myelodysplastic syndrome CAD status post stent placement in proximal circumflex Stomach cancer in remission, status post chemotherapy and radiation therapy PAST SURGICAL HISTORY: Laparoscopic lysis of adhesions converted to Billroth II to Chato-en-Y kimberly rojejunostomy and near total gastrectomy Left ankle surgery CAD status post stent placement in proximal circumflex Right hip replacement Total abdominal hysterectomy with bilateral salpingo-oophorectomy and appendectomy SOCIAL HISTORY: Former smoker Denies ETOH, illicit drug use Lives alone FAMILY HISTORY: Pulmonary embolism Hypertension CHF Breast cancer ALLERGIES: Adhesive, atorvastatin, gabapentin, tramadol REVIEW OF SYSTEMS: CONSTITUTIONAL: Denies any recent fevers or chills, night sweats, changes in weight or appetite HEENT: Reports headache beginning at approximately noon today, mild intermittent blurry vision bilaterally around 1600, denies any ear pain, fullness, mouth pain or sores, difficulty swallowing CARDIOVASCULAR: Denies any chest pain, palpitations RESPIRATORY: Denies any trouble breathing, no recent cough or wheeze, ports asthma is well controlled with home medications GASTROINTESTINAL: Denies any difficulty swallowing, reflux, abdominal pain or distention, changes in stooling habits GENITOURINARY: No difficulty urinating, no hematuria. SKIN: No new bruising or changing skin lesions MUSCULOSKELETAL: Has any muscle or joint aches or pains NEUROLOGICAL: Denies loss of consciousness or near syncope, no numbness and tingling in her hands and arms feet or legs HOME MEDICATIONS: Please see below. PHYSICAL EXAMINATION: VITAL SIGNS: Please see below GENERAL APPEARANCE: She was interviewed and examined emergency department. Patient was found to be resting comfortably on her ED stretcher in no acute distress. Patient was alert and oriented, easily engaged in conversation. Thin, frail-appearing INTEGUMENT: No bruising, flushing, jaundice or new/change in skin lesions HEENT: Normocephalic, atraumatic, EOMI, sclerae are nonicteric are without conjunctival injection. Lips acyanotic, mucus membranes moist and pink CVS: RRR, murmur c/w noted. LUNGS: Lungs are clear to auscultation bilaterally on room air, no conversational dyspnea appreciated ABDOMEN: Soft, nontender, nondistended, no overlying skin changes, pulses 2+ in the radial and posterior tibial arteries. NEURO: CN 2-12 are grossly intact, speech is not dysarthric, alert and oriented to person place and time, PSYCH: Mood and affect are appropriate given current clinical condition. LABORATORY DATA: See below. IMAGING: Head CT (03/19/20): No acute intracranial abnormality. Chronic microvascular ischemic changes Chest x-ray (03/19/20): No acute pulmonary disease. Chronic changes as above. Head CT (03/23/20): No acute intracranial abnormality. Chest x-ray (03/23/20): Small left-sided pleural effusion MICROBIOLOGY: Please see below. ASSESSMENT: Patient is an 79-year-old female with a history of atrial fibrillation on Xarelto, hypothyroid, asthma, hypertension, anemia of chronic disease, carotid artery disease, stomach cancer in remission, CAD status post stent, admitted to the hospital for evaluation and management of hypertensive urgency. PLAN: #Uncontrolled Urgency, resolving MUNGUIA and vision changes likely 2/2 to elevated BP. EKG, Trop and CT head unremarkable. PCU/Tele. Goal to reduce BP to <160/100, less than 25% of MAP in first 4 hours. Will add amlodipine as this has proved effective in the past. Low-salt diet. Monitor lytes. #Atrial fibrillation -RRR on examination -Continue home Xarelto #Asthma -Continue home medications -Ventolin and Symbicort #Hypothyroidism -TSH/fT4 of 5.210/1.08 -Continue home levothyroxine -Dose adjustment per PCP #Anemia of chronic disease -Hgb/Hct of 11/34.6, MCV of 95.1 -f/u CBC with PCP on outpatient basis DVT PROPHYLAXIS: NOAC CODE STATUS: Full Code DISPOSITION: <2 night stay Vital Signs Vital Signs Date Time Temp Pulse Resp B/P (MAP) Pulse Ox O2 Delivery O2 Flow Rate FiO2 03/23/20 20:30 67 16 175/84 (114) 95 Room Air 03/23/20 18:31 98.6 Laboratory Data Labs 24H Laboratory Tests 2 03/23/20 19:33: Immature Granulocyte % (Auto) 0.2, Neutrophils (%) (Auto) 52.9, Lymphocytes (%) (Auto) 29.6, Monocytes (%) (Auto) 7.7H, Eosinophils (%) (Auto) 8.4H, Basophils (%) (Auto) 1.2H, Neutrophils # (Auto) 2.2, Lymphocytes # (Auto) 1.2L, Monocytes # (Auto) 0.3, Eosinophils # (Auto) 0.4, Basophils # (Auto) 0.1, Nucleated Red Blood Cells % (auto) 0.0, Prothrombin Time 20.7H, Prothromb Time International Ratio 1.74, Activated Partial Thromboplast Time 43.3H, Anion Gap 7L, Glomerular Filtration Rate > 60.0, Calcium Level 8.8, Total Bilirubin 0.2, Direct Bilirubin < 0.1, Aspartate Amino Transf (AST/SGOT) 24, Alanine Aminotransferase (ALT/SGPT) 23, Alkaline Phosphatase 98, Total Creatine Kinase 85, Creatine Kinase MB 2.5, Creatine Kinase MB Relative Index 2.94, Troponin I < 0.02, Total Protein 6.7, Albumin 3.3, Albumin/Globulin Ratio 1.0L, Thyroid Stimulating Hormone (TSH) 5.210H, Free Thyroxine 1.08 CBC/BMP Laboratory Tests 03/23/20 19:33 Home Medications Scheduled Amlodipine Besylate (Amlodipine Besylate) 10 Mg Tablet, 10 MG PO QHS Budesonide/Formoterol (Symbicort 160-4.5 Mcg Inhaler) 6 Gm Hfa.aer.ad, 2 PUFF INH BID Chlorthalidone (Chlorthalidone) 25 Mg Tablet, 50 MG PO DAILY Cyanocobalamin (Cyanocobalamin Injection) 1,000 Mcg/1 Ml Vial, 1,000 MCG IM QMONTH PATIENT HAD DOSE FOR THIS MONTH LAST WEEK; UNSURE OF DAY Ergocalciferol (Vitamin D2) (Drisdol) 1,250 Mcg Capsule, 50,000 UNIT PO QWEEK FRIDAYS Labetalol HCl (Labetalol HCl) 100 Mg Tablet, 50 MG PO BID Levothyroxine Sodium (Synthroid) 75 Mcg Tablet, 75 MCG PO DAILY Lipase/Protease/Amylase (Zenpep Dr 20,000 Unit Capsule) 1 Each Capsule.dr, 3 CAP PO WM Lipase/Protease/Amylase (Zenpep Dr 20,000 Unit Capsule) 1 Each Capsule.dr, 2 CAP PO ASDIRECTED WITH SNACKS Losartan Potassium (Cozaar) 50 Mg Tablet, 50 MG PO BID Rivaroxaban (Xarelto) 20 Mg Tablet, 20 MG PO QHS Scheduled PRN Albuterol Sulfate (Albuterol Sulfate) 2.5 Mg/0.5 Ml Vial.neb, 2.5 MG INH QID PRN for SHORTNESS OF BREATH Albuterol Sulfate (Ventolin Hfa) 18 Gm Hfa.aer.ad, 2 PUFF INH Q4H PRN for SHORTNESS OF BREATH Clobetasol Propionate (Clobetasol Emollient 0.05% Crm) 60 Gm Cream..g., 1 DOSE PV DAILY PRN for ITCHING/SWELLING Allergies Coded Allergies: atorvastatin (Verified Allergy, Intermediate, mulscle pain /hives, 04/22/19) tramadol (Verified Adverse Reaction, Intermediate, took 2 and had hypertention went to ER, 04/22/19) adhesive (Verified Adverse Reaction, Unknown, tears skin, 04/22/19) gabapentin (Verified Adverse Reaction, Unknown, visual hallucinations, 04/22/19) visual hallucinations A-FIB/CHADSVASC A-FIB History Current/History of A-Fib/PAF?: No Current PO Anticoag Therapy: No GME ATTESTATION GME ATTESTATION My faculty preceptor for this patient encounter was physically present during the encounter and was fully available. All aspects of the patient interview, examination, medical decision making process, and medical care plan development were reviewed and approved by the faculty preceptor. The faculty preceptor is aware and concurs with the plan as stated in the body of this note and will attest to such by his/her cosignature. ATTENDING NOTE TIME OF SERVICE 957PM is an 79 yr old w a hx of Chronic hypertension, Asthma, TIA, Atrial fibrillation, Hypothyroidism, Anemia of chronic disease, Osteoporosis, Myelodysplastic syndrome, CAD w stent in th proximal circumflex, Carotid artery disease and Stomach cancer in remission who presented w c/o MUNGUIA and L eye pain and will be admitted for management of hypertensive urgency; she was admitted for the same on Mar 11 and started on Amlodipine 2.5 mg which she was sent her home with. Plan: Today we will continue with the current dose of amlodipine 2.5 mg and the same dose of Losartan at 50mg PO daily. We will ADD hydrochlorothiazide 6.25mg PO daily. Her follow up apt w is on Mon. rest per 's H&P except for the adjustments to her medications KELLY SIMON DO Mar 23, 2020 20:50 NOLA ELLIS MD Mar 23, 2020 23:25
[2020-03-23] MEDS ORDERED: SYNT75TA PO (20:54)
[2020-03-23] MEDS ORDERED: AMLO2.5T3 PO (20:54)
[2020-03-23] MEDS ORDERED: MOM 30ML SUSPENSION UDC PO PRN (21:00)
[2020-03-23] MEDS ORDERED: ACETAMINOPHEN TAB 650MG DOSE (2X325MG) PO PRN (21:00)
[2020-03-23] MEDS ORDERED: MAALOX 30 ML SUSP *UDC PO PRN (21:00)
[2020-03-23] MEDS ORDERED: ALBUTEROL 90 MCG/ACT 8GM HFA INHALER INH PRN (21:30)
[2020-03-23] MEDS ORDERED: amLODIPine 5 MG TAB PO ONE (22:00)
--- NOTE | 2020-03-23 22:14 | ECGEPIP ---
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
[2020-03-23] MEDS: DOCUSATE SODIUM 100MG CAPSULE PO SCH (22:50)
[2020-03-24 04:41] VITALS: BP 194/88
[2020-03-24] MEDS ORDERED: HYDR25TAB PO (04:51)
[2020-03-24] MEDS ORDERED: PILL CUTTER 1 EACH XX PRN (05:00)
[2020-03-24] MEDS: LEVOTHYROXINE 75MCG TABLET (0.075MG) PO SCH (05:06)
[2020-03-24 05:32] LABS: HEMATOCRIT 34.1 % (36.0-47.0); HEMOGLOBIN 10.6 g/dl (12.0-15.5); MEAN CORPUSCULAR HEMOGLOBIN 29.8 pg (27.0-33.0); MEAN CORPUSCULAR HGB CONC 31.1 g/dl (32.0-36.5); MEAN CORPUSCULAR VOLUME 95.8 fl (80.0-96.0); PLATELET COUNT, AUTOMATED 190 10^3/uL (150-450); RED BLOOD COUNT 3.56 10^6/uL (4.00-5.40); WHITE BLOOD COUNT 3.7 10^3/uL (4.0-10.0)
[2020-03-24 06:21] LABS: ALT/SGPT 21 U/L (12-78); BILIRUBIN,TOTAL 0.3 MG/DL (0.2-1.0); BLOOD UREA NITROGEN 14 MG/DL (7-18); CALCIUM LEVEL 8.7 MG/DL (8.8-10.2); CARBON DIOXIDE LEVEL 29 MEQ/L (21-32); CHLORIDE LEVEL 109 MEQ/L (98-107); CREATININE FOR GFR 0.69 MG/DL (0.55-1.30); GLOMERULAR FILTRATION RATE > 60.0 (>32); GLUCOSE, FASTING 95 MG/DL (70-100); POTASSIUM SERUM 3.5 MEQ/L (3.5-5.1); SODIUM LEVEL 143 MEQ/L (136-145); TOTAL PROTEIN 6.3 GM/DL (6.4-8.2)
[2020-03-24] MEDS ORDERED: hydrALAZINE 20MG/ML 1ML VIAL (J0360 PER 20MG) IV PRN (08:00)
[2020-03-24 08:02] VITALS: BP 134/78
[2020-03-24] MEDS: SYMBICORT 160/4.5MCG INHALER 6GM INH SCH ×2 (08:09→19:15)
[2020-03-24] MEDS ORDERED: amLODIPine 10 MG TAB PO SCH (09:00)
[2020-03-24] MEDS ORDERED: LOSARTAN 50MG TABLET PO SCH ×2 (09:00)
[2020-03-24] MEDS ORDERED: hydroCHLOROthiazide 25 MG TAB PO SCH (09:00)
[2020-03-24] MEDS: DOCUSATE SODIUM 100MG CAPSULE PO SCH ×3 (09:00→20:26)
[2020-03-24] MEDS ORDERED: LABETALOL 100 MG TAB PO SCH (09:00)
[2020-03-24] MEDS ORDERED: HYDROCHLOROthiazide 6.25MG PER 1/4TAB PO SCH (09:00)
[2020-03-24] MEDS: LOSARTAN 50MG TABLET PO SCH ×2 (09:48→20:26)
[2020-03-24 11:57] VITALS: BP 134/68
--- NOTE | 2020-03-24 13:01 | IPNPDOC ---
Text Note Date of Service The patient was seen on 03/24/20. NOTE Subjective: No any acute events overnight. Patient stated that she feels better today, no headache Objective: GENERAL APPEARANCE: NAD HEENT: no scleral icterus, no JVD, EOMI CARDIOVASCULAR: Irregularly irregular LUNGS: CTA ABDOMEN: soft & not tender w palpitation MUSCULOSKELETAL: no cyanosis, no swelling INTEGUMENT: no generalized palor NEUROLOGICAL: cranial nerve function from 2-12 intact intact, follows commands, speech not dysarthric Assessment and plan Patient is 79 years old female with past history of atrial fibrillation, hyperthyroidism, asthma, hypertension presented hospital with hypertensive emergency Hypertensive emergency Patient developed visual changes with headache on admission In the morning blood pressure was still high I increased the doses of by mouth meds Continue to monitor Atrial fibrillation Heart rate under control Continuing xarelto Asthma Not in acute exacerbation Continue home meds Hypothyroidism Continue levothyroxine Anemia Most likely anemia of chronic diseases Follow-up with PCP in the outpatient settings Hemoglobin stable VS,Fishbone, I+O VS, Fishbone, I+O Laboratory Tests 03/23/20 19:33 03/24/20 05:03 Vital Signs Date Time Temp Pulse Resp B/P (MAP) Pulse Ox O2 Delivery O2 Flow Rate FiO2 03/24/20 11:57 97.3 70 18 134/68 (90) 96 03/24/20 04:41 Room Air I&O- Last 24 Hours up to 6 AM 03/24/20 06:00 Intake Total 0 ml Output Total 600 ml Balance -600 ml HENRY ADRIAN DO Mar 24, 2020 13:01
[2020-03-24 15:41] VITALS: BP 160/76
[2020-03-24] MEDS ORDERED: RIVAROXABAN 15 MG TAB (XARELTO) PO SCH (18:00)
[2020-03-24 20:00] VITALS: BP 186/76
[2020-03-24 21:50] VITALS: BP 138/60
[2020-03-25] VITALS (7 sets, daily range): BP systolic 120–172; BP diastolic 56–82
[2020-03-25] MEDS: LEVOTHYROXINE 75MCG TABLET (0.075MG) PO SCH (05:39)
[2020-03-25] MEDS: SYMBICORT 160/4.5MCG INHALER 6GM INH SCH (07:15)
[2020-03-25] MEDS: LOSARTAN 50MG TABLET PO SCH (08:07)
[2020-03-25] MEDS: DOCUSATE SODIUM 100MG CAPSULE PO SCH (08:08)
[2020-03-25] MEDS ORDERED: CHLORTHALIDONE 25 MG TAB PO SCH (09:00)
[2020-03-25] MEDS ORDERED: AMLO1TAB25 PO (09:58)
[2020-03-25] MEDS ORDERED: COZA50TA PO (09:58)
[2020-03-25] MEDS ORDERED: CHLO25TA PO (09:58)
--- NOTE | 2020-03-25 16:13 | DS.PDOC ---
Discharge Summary General Date of Admission Mar 23, 2020 at 20:42 Date of Discharge 03/25/20 Discharge Summary PROCEDURES PERFORMED DURING STAY: [None]. ADMITTING DIAGNOSES: Hypertensive emergency Atrial fibrillation Asthma Hypothyroidism Anemia DISCHARGE DIAGNOSES: Hypertensive emergency Atrial fibrillation Asthma Hypothyroidism Anemia COMPLICATIONS/CHIEF COMPLAINT: Hypertensive Urgency. HISTORY OF PRESENT ILLNESS: Patient is 79 years old female with past history of atrial fibrillation, hyperthyroidism, asthma, hypertension presented hospital with hypertensive emergency HOSPITAL COURSE: During hospital stay following issues addressed Hypertensive emergency Patient developed visual changes with headache on admission Patient received increased doses of home meds, blood pressure was stabilized Atrial fibrillation Heart rate under control Continuing xarelto Asthma Not in acute exacerbation Continue home meds Hypothyroidism Continue levothyroxine Anemia Most likely anemia of chronic diseases Follow-up with PCP in the outpatient settings Hemoglobin stable DISCHARGE MEDICATIONS: Please see below. ALLERGIES: Please see below. PHYSICAL EXAMINATION ON DISCHARGE: VITAL SIGNS: Please see below. GENERAL APPEARANCE: NAD HEENT: no scleral icterus, no JVD, EOMI CARDIOVASCULAR: Irregularly irregular LUNGS: CTA ABDOMEN: soft & not tender w palpitation MUSCULOSKELETAL: no cyanosis, no swelling INTEGUMENT: no generalized palor NEUROLOGICAL: cranial nerve function from 2-12 intact intact, follows commands, speech not dysarthric LABORATORY DATA: Please see below. PROGNOSIS: Fair ACTIVITY: [As tolerated]. DIET: Cardiac DISPOSITION: 01 Home, Self-Care. DISCHARGE INSTRUCTIONS: Sodium restriction to 2 g ITEMS TO FOLLOWUP ON ON OUTPATIENT: Follow-up with upper lining cementer DISCHARGE CONDITION: [Stable]. TIME SPENT ON DISCHARGE: Greater than 20 minutes. Vital Signs/I&Os Vital Signs Date Time Temp Pulse Resp B/P (MAP) Pulse Ox O2 Delivery O2 Flow Rate FiO2 03/25/20 13:14 164/80 (108) 03/25/20 12:00 98.6 83 18 96 Room Air I&O- Last 24 Hours up to 6 AM 03/25/20 06:00 Intake Total 810 ml Output Total 1800 ml Balance -990 ml Discharge Medications Scheduled Amlodipine Besylate (Amlodipine Besylate) 10 Mg Tablet, 10 MG PO QHS Budesonide/Formoterol (Symbicort 160-4.5 Mcg Inhaler) 6 Gm Hfa.aer.ad, 2 PUFF INH BID, (Reported) Chlorthalidone (Chlorthalidone) 25 Mg Tablet, 50 MG PO DAILY Cyanocobalamin (Cyanocobalamin Injection) 1,000 Mcg/1 Ml Vial, 1,000 MCG IM QMONTH, (Reported) PATIENT HAD DOSE FOR THIS MONTH LAST WEEK; UNSURE OF DAY Ergocalciferol (Vitamin D2) (Drisdol) 1,250 Mcg Capsule, 50,000 UNIT PO QWEEK, (Reported) FRIDAYS Labetalol HCl (Labetalol HCl) 100 Mg Tablet, 50 MG PO BID, (Reported) Levothyroxine Sodium (Synthroid) 75 Mcg Tablet, 75 MCG PO DAILY, (Reported) Lipase/Protease/Amylase (Zenpep Dr 20,000 Unit Capsule) 1 Each Capsule.dr, 3 CAP PO WM, (Reported) Lipase/Protease/Amylase (Zenpep Dr 20,000 Unit Capsule) 1 Each Capsule.dr, 2 CAP PO ASDIRECTED, (Reported) WITH SNACKS Losartan Potassium (Cozaar) 50 Mg Tablet, 50 MG PO BID Rivaroxaban (Xarelto) 20 Mg Tablet, 20 MG PO QHS, (Reported) Scheduled PRN Albuterol Sulfate (Albuterol Sulfate) 2.5 Mg/0.5 Ml Vial.neb, 2.5 MG INH QID PRN for SHORTNESS OF BREATH, (Reported) Albuterol Sulfate (Ventolin Hfa) 18 Gm Hfa.aer.ad, 2 PUFF INH Q4H PRN for SHORTNESS OF BREATH, (Reported) Clobetasol Propionate (Clobetasol Emollient 0.05% Crm) 60 Gm Cream..g., 1 DOSE PV DAILY PRN for ITCHING/SWELLING, (Reported) Allergies Coded Allergies: atorvastatin (Verified Allergy, Intermediate, mulscle pain /hives, 04/22/19) tramadol (Verified Adverse Reaction, Intermediate, took 2 and had hypertention went to ER, 04/22/19) adhesive (Verified Adverse Reaction, Unknown, tears skin, 04/22/19) gabapentin (Verified Adverse Reaction, Unknown, visual hallucinations, 04/22/19) visual hallucinations HENRY ADRIAN DO Mar 25, 2020 16:13
[2020-03-25] MEDS ORDERED: amLODIPine 10 MG TAB PO SCH (21:00)
== END 2020-03-25 13:55 | disposition home or self-care (01) ==
LOC: M ED 18:30 → INTOOBSV 20:42 → M ED INP 20:42 → ENRESERV 03-24 04:00 → M PCU 03-24 04:41
PROVIDERS: ADMIT Internal Medicine; ATTEND Internal Medicine
DX: I16.0 Hypertensive urgency (principal); I48.91 Unspecified atrial fibrillation; J45.909 Unspecified asthma, uncomplicated; E03.9 Hypothyroidism, unspecified; D64.9 Anemia, unspecified; I10 Essential (primary) hypertension; Z79.01 Long term (current) use of anticoagulants; Z79.899 Other long term (current) drug therapy; M81.0 Age-related osteoporosis without current pathological fracture; Z85.028 Personal history of other malignant neoplasm of stomach; Z92.21 Personal history of antineoplastic chemotherapy; Z92.3 Personal history of irradiation; D46.9 Myelodysplastic syndrome, unspecified; I25.10 Atherosclerotic heart disease of native coronary artery without angina pectoris; Z98.61 Coronary angioplasty status; Z87.891 Personal history of nicotine dependence
CPT/HCPCS: 36415; 70450; 71046; 80048; 80053; 80076; 82550; 82553; 83735; 84439; 84443; 84484; 85025; 85027; 85610; 85730; 93005; 93041; 94640; 94760; 96374; 96376; 99285; G0378; U0002

== ENCOUNTER → 2020-04-28 | Outpatient (CLI) | payer SELFPAY ==
[~2020-04-28] MED LIST changes: +AMLO1TAB25 PO; +AMLO2.5T3 PO; +CHLO25TA PO; +COZA50TA PO; +HYDR25TAB PO; +SYNT75TA PO
== END ==
LOC: M LABSMTC 10:16
PROVIDERS: ATTEND Pediatrics
DX: Z20.828 Contact with and (suspected) exposure to other viral communicable diseases (principal)

== ENCOUNTER → 2020-06-09 | Outpatient (REF) | payer MEDICARE, OTHER ==
[~2020-06-09] MED LIST changes: +ASPI-569 PO; -ASPI81TAEC PO; +HYDR-3490 PO; -HYDR25TAB PO; -LISI-542 PO; +LISI-898 PO; -PEG1POW PO; +POLY17PO18 PO; +SIME80CH5 PO; -SIME80TA PO
== END ==
LOC: M LAB REF 13:49
PROVIDERS: ATTEND Dermatology
DX: D04.62 Carcinoma in situ of skin of left upper limb, including shoulder (principal); D04.71 Carcinoma in situ of skin of right lower limb, including hip

== ENCOUNTER 2020-08-17 10:14 | Emergency (ER) | payer MEDICARE, OTHER ==
[~2020-08-17] VITALS: Ht 144.8 cm; Wt 45.5 kg
[2020-08-17] MEDS ORDERED: AMLO2.5T3 (11:06)
[2020-08-17] MEDS ORDERED: KLOR10TA76 (11:06)
[2020-08-17 12:02] LABS: HEMATOCRIT 33.8 % (36.0-47.0); HEMOGLOBIN 10.6 g/dl (12.0-15.5); MEAN CORPUSCULAR HEMOGLOBIN 30.5 pg (27.0-33.0); MEAN CORPUSCULAR HGB CONC 31.4 g/dl (32.0-36.5); MEAN CORPUSCULAR VOLUME 97.4 fl (80.0-96.0); PLATELET COUNT, AUTOMATED 197 10^3/uL (150-450); RED BLOOD COUNT 3.47 10^6/uL (4.00-5.40); WHITE BLOOD COUNT 8.1 10^3/uL (4.0-10.0)
[2020-08-17] MEDS ORDERED: POTASSIUM CHLORIDE 10 MEQ SR TABLET PO ONE (12:30)
[2020-08-17] MEDS ORDERED: ACETAMINOPHEN TAB 650MG DOSE (2X325MG) PO ONE (12:30)
[2020-08-17 13:20] VITALS: BP 184/78
== END 2020-08-17 13:20 | disposition home or self-care (01) ==
LOC: M ED 10:14
DX: S81.802A Unspecified open wound, left lower leg, initial encounter (principal); X58.XXXA Exposure to other specified factors, initial encounter; Y92.89 Other specified places as the place of occurrence of the external cause; T45.515A Adverse effect of anticoagulants, initial encounter; I10 Essential (primary) hypertension; J45.909 Unspecified asthma, uncomplicated; I48.91 Unspecified atrial fibrillation; D46.9 Myelodysplastic syndrome, unspecified; E07.9 Disorder of thyroid, unspecified; Z79.899 Other long term (current) drug therapy; Z79.890 Hormone replacement therapy; Z79.01 Long term (current) use of anticoagulants; Z88.5 Allergy status to narcotic agent; Z88.8 Allergy status to other drugs, medicaments and biological substances; Z91.048 Other nonmedicinal substance allergy status; Z87.891 Personal history of nicotine dependence

== ENCOUNTER → 2020-08-24 | Outpatient (REF) | payer MEDICARE, OTHER ==
[~2020-08-24] MED LIST changes: +AMLO2.5T3; +KLOR10TA76
== END ==
LOC: M LAB REF 11:17
PROVIDERS: ATTEND Internal Medicine Gastroenterology
DX: K59.1 Functional diarrhea (principal); C16.9 Malignant neoplasm of stomach, unspecified; K86.89 Other specified diseases of pancreas; R63.4 Abnormal weight loss; R68.81 Early satiety

== ENCOUNTER → 2020-09-11 | Outpatient (CLI) | payer MEDICARE, OTHER ==
--- NOTE | 2020-09-11 14:04 | REP ---
INDICATION: NON PRESSURE ULCER LEFT LEG. COMPARISON: None. TECHNIQUE: Real time larson scale and Duplex Doppler evaluation of the left lower extremity arterial vasculature using linear high frequency transducer. FINDINGS: The ankle to brachial index of the left lower extremity is not performed due to open wound of the lower leg. Duplex Doppler interrogation demonstrates triphasic waveforms in the common femoral and proximal superficial femoral arteries with monophasic waveforms elsewhere. Severe diffuse plaquing is noted. There is occlusion of the proximal superficial femoral artery with reconstitution more distally. The tibioperoneal trunk and proximal posterior tibial artery are occluded. Flow is seen in the distal CONTINUOUS MINER OPERATOR. PSV(cm/sec) Common femoral artery: 85 cm/s Profunda femoris artery: 73 cm/s Proximal superficial femoral artery: 69 cm/s Mid superficial femoral artery: 58 cm/s Distal superficial femoral artery: 81 cm/s Popliteal artery: 73 cm/s Proximal KELLY: 68 cm/s Tibioperoneal trunk: Occluded cm/s Proximal CONTINUOUS MINER OPERATOR: Occluded cm/s Distal CONTINUOUS MINER OPERATOR: 67 cm/s Distal KELLY: 72 cm/s IMPRESSION: Severe diffuse plaquing. Occlusion proximal SFA with reconstitution more distally. Occlusion tibioperoneal trunk and proximal posterior tibial artery, reconstitution distal CONTINUOUS MINER OPERATOR. <Electronically signed by Neto Larson > 09/11/20 1400
== END ==
LOC: M RAD 11:38
PROVIDERS: ATTEND Surgery
DX: L97.822 Non-pressure chronic ulcer of other part of left lower leg with fat layer exposed (principal); I70.212 Atherosclerosis of native arteries of extremities with intermittent claudication, left leg

== ENCOUNTER 2020-10-09 14:48 | Emergency (ER) | payer MEDICARE, OTHER ==
[~2020-10-09] VITALS: Ht 144.8 cm; Wt 46.8 kg
[~2020-10-09 14:48] MED LIST changes: -KLOR10TA76; +KLOR10TA76 PO
[2020-10-09 15:38] LABS: BASO % 0.7 % (0.0-1.0); EOS # 0.1 10^3/uL (0.0-0.5); HEMATOCRIT 35.7 % (36.0-47.0); HEMOGLOBIN 11.1 g/dl (12.0-15.5); LYMPH # 0.8 10^3/uL (1.5-5.0); LYMPH % 13.3 % (24.0-44.0); MEAN CORPUSCULAR HEMOGLOBIN 28.1 pg (27.0-33.0); MEAN CORPUSCULAR HGB CONC 31.1 g/dl (32.0-36.5); MEAN CORPUSCULAR VOLUME 90.4 fl (80.0-96.0); MONO # 0.3 10^3/uL (0.0-0.8); MONO % 5.4 % (2.0-8.0); NEUTROPHILS # 4.8 10^3/uL (1.5-8.5); NEUTROPHILS % 78.3 % (36.0-66.0); PLATELET COUNT, AUTOMATED 259 10^3/uL (150-450); RED BLOOD COUNT 3.95 10^6/uL (4.00-5.40); WHITE BLOOD COUNT 6.1 10^3/uL (4.0-10.0)
[2020-10-09 16:22] LABS: ALBUMIN 3.3 GM/DL (3.2-5.2); ALT/SGPT 88 U/L (12-78); AMYLASE 41 U/L (25-115); BILIRUBIN,TOTAL 1.5 MG/DL (0.2-1.0); BLOOD UREA NITROGEN 14 MG/DL (7-18); CALCIUM LEVEL 8.6 MG/DL (8.8-10.2); CARBON DIOXIDE LEVEL 34 MEQ/L (21-32); CHLORIDE LEVEL 101 MEQ/L (98-107); CREATININE FOR GFR 0.66 MG/DL (0.55-1.30); GLOMERULAR FILTRATION RATE > 60.0 (>32); GLUCOSE, FASTING 151 MG/DL (70-100); LIPASE 34 U/L (73-393); POTASSIUM SERUM 2.9 MEQ/L (3.5-5.1); SODIUM LEVEL 138 MEQ/L (136-145); TOTAL PROTEIN 7.8 GM/DL (6.4-8.2)
[2020-10-09] MEDS ORDERED: MORPHINE 4 MG/ML 1ML VIAL/SYRINGE (J2270) IV ONE (16:45)
[2020-10-09] MEDS ORDERED: ONDANSETRON 4MG/2ML VIAL IV ONE (16:45)
[2020-10-09] MEDS ORDERED: ISOVUE-370 76% 100ML VIAL As Ordered ONE (16:54)
[2020-10-09 17:14] LABS: CK-MB VALUE MASS 1.6 NG/ML (<3.6); CPK CREATINE PHOSPHOKINASE 98 U/L (26-192); MB/CK RELATIVE INDEX 1.63 (< OR =4); TROPONIN I < 0.02 NG/ML (< 0.10)
[2020-10-09] MEDS ORDERED: KCL 10MEQ/100ML SWI (KRUN) 10 MEQ in IV 1 EA IV ONE (17:45)
[2020-10-09] MEDS ORDERED: POTASSIUM CHLORIDE 10 MEQ SR TABLET PO ONE (17:45)
[2020-10-09] MEDS ORDERED: LOSARTAN 50MG TABLET PO ONE (18:20)
[2020-10-09] MEDS ORDERED: LABETALOL 100MG TAB PO ONE (18:20)
--- NOTE | 2020-10-09 20:02 | ECGEPIP ---
[facility] - ED Test Date: 2020-10-09 Pat Name: SUE URENA Department: Room: - Gender: Female Ad Operations Specialist: MIGUEL : 1940 Requested By: DEANGELO CARLISLE Order Number: [id number] Reading MD: Deangelo Brush Measurements Intervals [place] Rate: 71 P: 58 ND: 184 QRS: 14 QRSD: 96 T: -47 QT: 456 QTc: 495 Interpretive Statements Normal sinus rhythm Left ventricular hypertrophy with repolarization abnormality Prolonged QTc interval new from tracing done 03-23-20 Electronically Signed on 10-09-2020 20:01:56 EDT by Deangelo Brush
--- NOTE | 2020-10-09 20:24 | REPVR ---
PROCEDURE INFORMATION: Exam: CTA Abdomen and Pelvis With Contrast Exam date and time: 10/09/2020 7:23 PM Age: 80 years old Clinical indication: Abdominal pain; Generalized; Additional info: Severe abdominal pain to back; R/O aaa vs gallstones TECHNIQUE: Imaging protocol: Computed tomographic angiography of the abdomen and pelvis with contrast material. 3D rendering (Not supervised by radiologist): MIP and/or 3D reconstructed images were created by the technologist. Radiation optimization: All CT scans at this facility use at least one of these dose optimization techniques: automated exposure control; mA and/or kV adjustment per patient size (includes targeted exams where dose is matched to clinical indication); or iterative reconstruction. Contrast material: ISOVUE 370; Contrast volume: 100 ml; Contrast route: INTRAVENOUS (IV); COMPARISON: CT ABD PELVIS W/O CONTRAST 04/22/2019 8:42 AM FINDINGS: Lungs: Minimal bilateral lower lobe fibro-atelectatic change, left greater than right. Pleural spaces: Trace left pleural effusion. Aorta: There is mild calcification of the abdominal aorta with extension into the iliac arteries. No abdominal aortic aneurysm or dissection. Celiac trunk and mesenteric arteries: Mild origin stenosis of the celiac artery with unremarkable branches. The SMA and branches are normal. The DEDRA is patent. Renal arteries: Single patent bilateral renal arteries. Right iliac arteries: No occlusion or significant stenosis. Left iliac arteries: No occlusion or significant stenosis. Liver: No mass. Gallbladder and bile ducts: There is a gallstone in the gallbladder measuring 12 mm. The CBD measures up to 10 mm with tapering to the ampulla. Pancreas: Unremarkable. No mass. No ductal dilation. Spleen: Unremarkable. No splenomegaly. Adrenal glands: Slight fullness of the adrenals suggesting hyperplasia. Kidneys and ureters: Atrophic nonenhancing upper pole of the left kidney consistent with chronic ischemia or infarct. There is a left renal cyst measuring up to 6 mm. Stomach and bowel: Epigastric ventral wall hernia centered to the left containing a bowel segment with no obstruction or suggestion of strangulation. Status post gastrectomy with esophago-enterostomy. Appendix: There are no changes of appendicitis. A normal appendix is not seen. Intraperitoneal space: Unremarkable. No free air. No significant fluid collection. Lymph nodes: Unremarkable. No enlarged lymph nodes. Urinary bladder: Unremarkable. No mass. Reproductive: Unremarkable as visualized. Bones/joints: Bilateral hip prostheses with beam hardening artifact in the pelvis. Old fractures of the right superior and inferior pubic rami. Soft tissues: Unremarkable. IMPRESSION: 1. Cholelithiasis. 2. Epigastric ventral wall hernia containing small bowel with no strangulation or obstruction. 3. Trace left pleural effusion with minimal bilateral lower lobe fibro-atelectatic change which is similar to 04/22/2019. 4. Status post gastrectomy with esophago-enterostomy. 5. Slightly distended CBD measuring 10 mm which is slightly increased since the prior study. 6. Atrophic nonenhancing upper pole of the left kidney which appears similar to the prior study consistent with chronic ischemia or infarct. 7. Otherwise negative CT abdomen/pelvis. No abdominal aortic aneurysm or dissection. Electronically signed by: Munir Simons On 10/09/2020 20:23:24 PM
[2020-10-09] MEDS ORDERED: amLODIPine 5 MG TAB PO ONE (21:10)
[2020-10-09] MEDS ORDERED: PILL CUTTER 1 EACH XX ONE (22:03)
[2020-10-09 22:07] VITALS: BP 170/88
[2020-10-09 23:15] VITALS: BP 160/78
[2020-10-10] MEDS ORDERED: OMEP-218 PO (22:33)
[2020-10-10] MEDS ORDERED: LOPE1CAP5 PO (22:33)
[2020-10-10] MEDS ORDERED: LOSA50TA88 PO (22:33)
[2020-10-10] MEDS ORDERED: FURO40TA2 PO (22:33)
== END 2020-10-09 23:20 | disposition home or self-care (01) ==
LOC: M ED 14:48
DX: K80.70 Calculus of gallbladder and bile duct without cholecystitis without obstruction (principal); I10 Essential (primary) hypertension; J45.909 Unspecified asthma, uncomplicated; I25.2 Old myocardial infarction; Z79.899 Other long term (current) drug therapy; Z79.01 Long term (current) use of anticoagulants; Z88.5 Allergy status to narcotic agent; Z88.8 Allergy status to other drugs, medicaments and biological substances; Z91.048 Other nonmedicinal substance allergy status
CPT/HCPCS: 74174; 80048; 80076; 81001; 82150; 82550; 82553; 83690; 84484; 85025; 93005; 96365; 96366; 96375; 99284; J2405; Q9967

== ENCOUNTER 2020-10-10 18:46 | Observation (INO) | payer MEDICARE, OTHER ==
[~2020-10-10] VITALS: Ht 144.8 cm; Wt 45.0 kg
[2020-10-10] MEDS ORDERED: ONDANSETRON 4MG/2ML VIAL IV ONE (20:10)
[2020-10-10] MEDS ORDERED: NS 1,000 ML IV SCH ×2 (20:10→23:55)
[2020-10-10 20:14] LABS: BASO % 0.3 % (0.0-1.0); EOS # 0.3 10^3/uL (0.0-0.5); EOS % 2.9 % (0.0-3.0); HEMATOCRIT 33.5 % (36.0-47.0); HEMOGLOBIN 10.2 g/dl (12.0-15.5); LYMPH # 0.8 10^3/uL (1.5-5.0); LYMPH % 8.7 % (24.0-44.0); MEAN CORPUSCULAR HEMOGLOBIN 28.3 pg (27.0-33.0); MEAN CORPUSCULAR HGB CONC 30.4 g/dl (32.0-36.5); MEAN CORPUSCULAR VOLUME 92.8 fl (80.0-96.0); MONO # 0.5 10^3/uL (0.0-0.8); MONO % 5.5 % (2.0-8.0); NEUTROPHILS # 7.1 10^3/uL (1.5-8.5); NEUTROPHILS % 82.4 % (36.0-66.0); PLATELET COUNT, AUTOMATED 217 10^3/uL (150-450); RED BLOOD COUNT 3.61 10^6/uL (4.00-5.40); WHITE BLOOD COUNT 8.6 10^3/uL (4.0-10.0)
[2020-10-10 20:57] LABS: ALT/SGPT 187 U/L (12-78); BILIRUBIN,DIRECT 0.3 MG/DL (0.0-0.2); BILIRUBIN,TOTAL 0.8 MG/DL (0.2-1.0); BLOOD UREA NITROGEN 18 MG/DL (7-18); CALCIUM LEVEL 8.4 MG/DL (8.8-10.2); CARBON DIOXIDE LEVEL 29 MEQ/L (21-32); CHLORIDE LEVEL 103 MEQ/L (98-107); CK-MB VALUE MASS < 1.0 NG/ML (<3.6); CPK CREATINE PHOSPHOKINASE 65 U/L (26-192); CREATININE FOR GFR 0.93 MG/DL (0.55-1.30); GLOMERULAR FILTRATION RATE > 60.0 (>32); GLUCOSE, FASTING 120 MG/DL (70-100); LIPASE 24 U/L (73-393); MB/CK RELATIVE INDEX 1.54 (< OR =4); POTASSIUM SERUM 3.6 MEQ/L (3.5-5.1); SODIUM LEVEL 136 MEQ/L (136-145); TOTAL PROTEIN 6.8 GM/DL (6.4-8.2); TROPONIN I < 0.02 NG/ML (< 0.10)
--- NOTE | 2020-10-10 21:33 | REPVR ---
PROCEDURE INFORMATION: Exam: US Abdomen, Limited; Right Upper Quadrant Exam date and time: 10/10/2020 8:29 PM Age: 80 years old Clinical indication: Abdominal pain; Epigastric; Additional info: Ruq pain TECHNIQUE: Imaging protocol: US abdomen. Real time ultrasound with image documentation. Limited exam focused on the right upper quadrant. COMPARISON: Abdomen, limited US 03/02/2016 9:43 AM FINDINGS: Liver: Unremarkable. Gallbladder: Cholelithiasis and mild gallbladder distention. No gallbladder wall thickening or pericholecystic fluid. Negative sonographic Aragon's sign, as per the performing recreation technician. Common bile duct: Mildly dilated to approximately 9 mm. No stones. Pancreas: Suboptimally visualized. Right kidney: No mass. No definite stones. No hydronephrosis. Pleural space: Small right pleural effusion. IMPRESSION: 1. Cholelithiasis without sonographic evidence of acute cholecystitis. 2. Mild common bile duct dilatation to approximately 9 mm. Correlate with LFTs. 3. Small right pleural effusion. Electronically signed by: Donny Mccormick On 10/10/2020 21:32:25 PM
[2020-10-10] MEDS ORDERED: FURO40TA2 PO (22:33)
[2020-10-10] MEDS ORDERED: LOSA50TA88 PO (22:33)
[2020-10-10] MEDS ORDERED: LOPE1CAP5 PO (22:33)
[2020-10-10] MEDS ORDERED: OMEP-218 PO (22:33)
--- NOTE | 2020-10-10 23:31 | IPNPDOC ---
Text Note Date of Service The patient was seen on 10/10/20. VS,Darrell, I+O VS, Fishbone, I+O Laboratory Tests 10/10/20 20:06 Vital Signs Date Time Temp Pulse Resp B/P (MAP) Pulse Ox O2 Delivery O2 Flow Rate FiO2 10/10/20 22:00 69 19 134/64 (87) 95 Room Air 10/10/20 18:56 99.2 NOLA ELLIS MD Oct 10, 2020 23:31
--- NOTE | 2020-10-10 23:54 | HPEPDOC ---
[facility] Medical History & Physical Date of Admission Oct 10, 2020 Date of Service: Oct 10, 2020 Attending Physician: NOLA ELLIS MD History and Physical CHIEF COMPLAINT: [80 y/o female c/o ruq pain x4 days] HISTORY OF PRESENT ILLNESS: [This is an 80 y/o female with an extensive pmh of tia, chf, cad s/p stend placement, a-fib, asthma, copd, gerd, stomach ca s/p resection, pancreatic insufficiency, breast ca, cervical ca s/p hysterectomy, a/fib with vte currently on xarelto, htn, hld, and hypothyroidism who complains of continued ruq pain and lower back pain x3 days. Patient was seen in our ED ye 10/09 with the same complaints. Patient at that time was diagnosed with cholelithiasis without cholecystitis. Patient states that she cam back today because she has had continued ruq pain and worsening lower back pain. Patient states that the pain is constant in nature but is relieved with nsaids at home. Patient states that she continues to have poor oral intake as whenever she eats she becomes very nauseated. Patient denies fever, chills, chest pain, sob, diarrhea, constipation, dysuria, rash, abd distention. Patient also has chronic wound on lle that she has been following wound clinic, dr. arredondo. ] PAST MEDICAL HISTORY: 1. [See HPI PAST SURGICAL HISTORY: 1. [Coronary stent placement]. 2. [Stomach resection]. 3. [Hysterectomy 4. B/l hip arthroplasty 5. Left ankle ORIF]. SOCIAL HISTORY: Tobacco use:[Denies] ETOH: [Denies] Illicit drug use: [Denies] FAMILY HISTORY: Reviewed - none pertinent ALLERGIES: Please see below. REVIEW OF SYSTEMS: CONSTITUTIONAL: [See HPI]. HEENT: [Denies uri sx]. CARDIOVASCULAR: [See HPI]. RESPIRATORY: [See HPI]. GASTROINTESTINAL: [SEe HPI]. GENITOURINARY: [See HPI]. SKIN: [Denies rash]. MUSCULOSKELETAL: [See HPI]. NEUROLOGICAL: [Denies paresthesias, syncope]. ENDOCRINE: [Denies hx of DM]. HEMATOLOGIC/LYMPHATIC: [Denies easy bruising]. HOME MEDICATIONS: Please see below. PHYSICAL EXAMINATION: VITAL SIGNS: Please see below. GENERAL APPEARANCE: [This is an 80 y/o female who does not appear to be in any respiratory distress.]. HEENT: [No mass or lesion. EOMI. No scleral icterus. Nares patent. Oral mucosa dry.]. CARDIOVASCULAR: [REgular rate, rhythm. 4/6 murmur appreciated.]. LUNGS: [Decreased air flow b/l. No wheezing, rales, rhonchi.]. ABDOMEN: [Soft, mildly tender to epigastrum and ruq.]. MUSCULOSKELETAL: [No joint deformity]. EXTREMITIES: [The left lower extremity is wrapped in a bandage that is dry and intact. The right leg shows no peripheral edema. Skin changes consistent with chronic venous insufficiency. Pulses palpable.]. NEUROLOGICAL: [Speech clear. A+Ox3. No focal deficits.]. PSYCHIATRIC: [Mood and affect appear appropriate.]. LABORATORY DATA: See below. IMAGING: [CT abd/pelvis from 10/09: COMPARISON: CT ABD PELVIS W/O CONTRAST 04/22/2019 8:42 AM FINDINGS: Lungs: Minimal bilateral lower lobe fibro-atelectatic change, left greater than right. Pleural spaces: Trace left pleural effusion. Aorta: There is mild calcification of the abdominal aorta with extension into the iliac arteries. No abdominal aortic aneurysm or dissection. Celiac trunk and mesenteric arteries: Mild origin stenosis of the celiac artery with unremarkable branches. The SMA and branches are normal. The DEDRA is patent. Renal arteries: Single patent bilateral renal arteries. Right iliac arteries: No occlusion or significant stenosis. Left iliac arteries: No occlusion or significant stenosis. Liver: No mass. Gallbladder and bile ducts: There is a gallstone in the gallbladder measuring 12 mm. The CBD measures up to 10 mm with tapering to the ampulla. Pancreas: Unremarkable. No mass. No ductal dilation. Spleen: Unremarkable. No splenomegaly. Adrenal glands: Slight fullness of the adrenals suggesting hyperplasia. Kidneys and ureters: Atrophic nonenhancing upper pole of the left kidney consistent with chronic ischemia or infarct. There is a left renal cyst measuring up to 6 mm. Stomach and bowel: Epigastric ventral wall hernia centered to the left containing a bowel segment with no obstruction or suggestion of strangulation. Status post gastrectomy with esophago-enterostomy. Appendix: There are no changes of appendicitis. A normal appendix is not seen. Intraperitoneal space: Unremarkable. No free air. No significant fluid collection. Lymph nodes: Unremarkable. No enlarged lymph nodes. Urinary bladder: Unremarkable. No mass. Reproductive: Unremarkable as visualized. Bones/joints: Bilateral hip prostheses with beam hardening artifact in the pelvis. Old fractures of the right superior and inferior pubic rami. Soft tissues: Unremarkable. IMPRESSION: 1. Cholelithiasis. 2. Epigastric ventral wall hernia containing small bowel with no strangulation or obstruction. 3. Trace left pleural effusion with minimal bilateral lower lobe fibro-atelectatic change which is similar to 04/22/2019. 4. Status post gastrectomy with esophago-enterostomy. 5. Slightly distended CBD measuring 10 mm which is slightly increased since the prior study. 6. Atrophic nonenhancing upper pole of the left kidney which appears similar to the prior study consistent with chronic ischemia or infarct. 7. Otherwise negative CT abdomen/pelvis. No abdominal aortic aneurysm or dissection. Gallbladder us from 10/10: FINDINGS: Liver: Unremarkable. Gallbladder: Cholelithiasis and mild gallbladder distention. No gallbladder wall thickening or pericholecystic fluid. Negative sonographic Aragon's sign, as per the performing pedicurist. Common bile duct: Mildly dilated to approximately 9 mm. No stones. Pancreas: Suboptimally visualized. Right kidney: No mass. No definite stones. No hydronephrosis. Pleural space: Small right pleural effusion. IMPRESSION: 1. Cholelithiasis without sonographic evidence of acute cholecystitis. 2. Mild common bile duct dilatation to approximately 9 mm. Correlate with LFTs. 3. Small right pleural effusion. ] MICROBIOLOGY: Please see below. ASSESSMENT: [his is an 80 y/o female with an extensive pmh of tia, chf, cad s/p stend placement, a-fib, asthma, copd, gerd, stomach ca s/p resection, pancreatic insufficiency, breast ca, cervical ca s/p hysterectomy, a/fib with vte currently on xarelto, htn, hld, and hypothyroidism who complains of continued ruq pain and lower back pain x3 days. Patient was seen in our ED yesterday 10/09 with the same complaints. Patient at that time was diagnosed with cholelithiasis without cholecystitis. Workup performed today shows the same.]. . PLAN: 1. [Cholelithiasis - Patient has no sirs criteria upon presentation - Direct bilirubin only slightly elevated at 0.3. yesterday was 1.0 - Liver enzymes only mildly elevated at 210 ast, 187 alt. yesterday was 247 ast, 88 alt - Will begin ivf d/t poor oral intake - zofran for nausea - pain control with tylenol, toradol - abx do not seem to be indicated at this time. can begin if patient begins spiking fevers, develops white count, etc. - Will trend liver functions - Day team can consider surgical consult in the morning - Admit to med surg under obs 2. CHF - Pt euvolemic on exam. - Will monitor fluid status closely d/t administration of ivf - Continue cozaar, furosemide, labetalol 3. A-fib - pt does not appear to currently be in a-fib - continue xarelto 3. COPD - continue albuterol, symbicort 4. Pancreatic insufficiency - continue supplemental pancreatic enzymes 5. Left lower extremity wound - Patient follows dr. arredondo. day team can consider wound consult 6. Hypothyroidism - continue levothyroxine 7. GERD - continue omeprazole DVT prophylaxis - pt on xarelto]. Vital Signs Vital Signs Date Time Temp Pulse Resp B/P (MAP) Pulse Ox O2 Delivery O2 Flow Rate FiO2 10/10/20 22:00 69 19 134/64 (87) 95 Room Air 10/10/20 18:56 99.2 Laboratory Data Labs 24H Laboratory Tests 2 10/10/20 20:06: Immature Granulocyte % (Auto) 0.2, Neutrophils (%) (Auto) 82.4H, Lymphocytes (%) (Auto) 8.7L, Monocytes (%) (Auto) 5.5, Eosinophils (%) (Auto) 2.9, Basophils (%) (Auto) 0.3, Neutrophils # (Auto) 7.1, Lymphocytes # (Auto) 0.8L, Monocytes # (Auto) 0.5, Eosinophils # (Auto) 0.3, Basophils # (Auto) 0.0, Nucleated Red Blood Cells % (auto) 0.0, Anion Gap 4L, Glomerular Filtration Rate > 60.0, Calcium Level 8.4L, Total Bilirubin 0.8, Direct Bilirubin 0.3H, Aspartate Amino Transf (AST/SGOT) 210H, Alanine Aminotransferase (ALT/SGPT) 187H, Alkaline Phosphatase 275H, Total Creatine Kinase 65, Creatine Kinase MB < 1.0, Creatine Kinase MB Relative Index 1.54, Troponin I < 0.02, Total Protein 6.8, Albumin 3.0L, Albumin/Globulin Ratio 0.8L, Lipase 24L 10/10/20 23:32: CBC/BMP Laboratory Tests 10/10/20 20:06 Home Medications Scheduled Cyanocobalamin (Cyanocobalamin Injection) 1,000 Mcg/1 Ml Vial, 1,000 MCG IM QMONTH PATIENT HAD DOSE FOR THIS MONTH LAST WEEK; UNSURE OF DAY Ergocalciferol (Vitamin D2) (Drisdol) 1,250 Mcg Capsule, 50,000 UNIT PO QWEEK FRIDAYS Furosemide (Furosemide) 40 Mg Tablet, 80 MG PO DAILY Labetalol HCl (Labetalol HCl) 100 Mg Tablet, 100 MG PO BID Levothyroxine Sodium (Synthroid) 75 Mcg Tablet, 75 MCG PO DAILY Lipase/Protease/Amylase (Zenpep Dr 20,000 Unit Capsule) 1 Each Capsule.dr, 3 CAP PO WM Lipase/Protease/Amylase (Zenpep Dr 20,000 Unit Capsule) 1 Each Capsule.dr, 2 CAP PO ASDIRECTED WITH SNACKS Losartan Potassium (Losartan Potassium) 50 Mg Tablet, 50 MG PO DAILY Omeprazole (Omeprazole) 20 Mg Capsule.dr, 20 MG PO DAILY Potassium Chloride (Klor-Con M10) 10 Meq Tab.er.prt, 10 MEQ PO DAILY Rivaroxaban (Xarelto) 20 Mg Tablet, 20 MG PO QHS Scheduled PRN Albuterol Sulfate (Albuterol Sulfate) 2.5 Mg/0.5 Ml Vial.neb, 2.5 MG INH QID PRN for SHORTNESS OF BREATH Albuterol Sulfate (Ventolin Hfa) 18 Gm Hfa.aer.ad, 2 PUFF INH Q4H PRN for SHORTNESS OF BREATH Budesonide/Formoterol (Symbicort 160-4.5 Mcg Inhaler) 6 Gm Hfa.aer.ad, 2 PUFF INH BID PRN for SHORTNESS OF BREATH Clobetasol Propionate (Clobetasol Emollient 0.05% Crm) 60 Gm Cream..g., 1 DOSE PV DAILY PRN for ITCHING/SWELLING Loperamide HCl (Loperamide) 2 Mg Capsule, 2 MG PO DAILY PRN for DIARRHEA MAY TAKE 1-2 CAPSULES DAILY Allergies Coded Allergies: atorvastatin (Verified Allergy, Intermediate, mulscle pain /hives, 04/22/19) tramadol (Verified Adverse Reaction, Intermediate, took 2 and had hypertention went to ER, 04/22/19) adhesive (Verified Adverse Reaction, Unknown, tears skin, 04/22/19) gabapentin (Verified Adverse Reaction, Unknown, visual hallucinations, 04/22/19) visual hallucinations A-FIB/CHADSVASC A-FIB History Current/History of A-Fib/PAF?: Yes Current PO Anticoag Therapy: Yes Attending Note Attending Note time of service 1207 am Ms Magana is an 80 yr old w a hx of CAD w stent in LCx, Asthma, Aortic stenosis, HFpEF, osteoporosis, MDS, , small vessel ischemic dz, TIA, A fib, GERD, stomach cancer that has been in remission for 17 yrs after chemo/radiation, Esophageal stenosis requiring dilation, DLP & Barrets esophagus who presented w c/o RUQ abdominal pain. Her PE was remarkable for a slim build Admitting diagnoses # RUQ abdominal pain cause TBD #NN Anemia #Transaminitis Plan: pain meds / trend LFTs/ they day time team may consider placing Gen Surg consult if the pain doesnt improve in the morning ROYCE HERNANDEZ Oct 10, 2020 23:54 NOLA ELLIS MD Oct 11, 2020 02:44
[2020-10-10] MEDS ORDERED: MOM 30ML SUSPENSION UDC PO PRN (23:55)
[2020-10-10] MEDS ORDERED: ONDANSETRON 4MG/2ML VIAL IV PRN (23:55)
[2020-10-10] MEDS ORDERED: ACETAMINOPHEN TAB 650MG DOSE (2X325MG) PO PRN (23:55)
[2020-10-10] MEDS ORDERED: MAALOX 30 ML SUSP *UDC PO PRN (23:55)
[2020-10-11] MEDS ORDERED: CLOBETASOL PROPIONATE EMOLLIENT 0.05% CR 60 GM TOP PRN
[2020-10-11] MEDS ORDERED: SYMBICORT 160/4.5MCG INHALER 6GM INH PRN
[2020-10-11] MEDS ORDERED: ALBUTEROL SULFATE 2.5 MG/0.5 ML INH NEB SOLN INH PRN
[2020-10-11] MEDS ORDERED: ALBUTEROL 90 MCG/ACT 8GM HFA INHALER INH PRN
[2020-10-11 00:21] LABS: RSV AMPLIFICATION NEGATIVE (NEGATIVE)
[2020-10-11 01:20] VITALS: BP 140/63
[2020-10-11] MEDS: RIVAROXABAN 20 MG TAB (XARELTO) PO SCH ×2 (01:46→22:00)
[2020-10-11] MEDS: LABETALOL 100MG TAB PO SCH ×3 (01:46→21:59)
[2020-10-11] MEDS: KETOROLAC 30 MG/ML 1ML VIAL IV PRN ×2 (01:46→22:00)
[2020-10-11 06:00] VITALS: BP 130/59
[2020-10-11 06:33] LABS: HEMATOCRIT 27.4 % (36.0-47.0); HEMOGLOBIN 8.3 g/dl (12.0-15.5); MEAN CORPUSCULAR HEMOGLOBIN 28.3 pg (27.0-33.0); MEAN CORPUSCULAR HGB CONC 30.3 g/dl (32.0-36.5); MEAN CORPUSCULAR VOLUME 93.5 fl (80.0-96.0); PLATELET COUNT, AUTOMATED 187 10^3/uL (150-450); RED BLOOD COUNT 2.93 10^6/uL (4.00-5.40); WHITE BLOOD COUNT 6.5 10^3/uL (4.0-10.0)
[2020-10-11] MEDS: LEVOTHYROXINE 75MCG TABLET (0.075MG) PO SCH (06:43)
[2020-10-11 07:08] LABS: ALBUMIN 2.4 GM/DL (3.2-5.2); ALT/SGPT 123 U/L (12-78); BILIRUBIN,TOTAL 0.7 MG/DL (0.2-1.0); BLOOD UREA NITROGEN 18 MG/DL (7-18); CALCIUM LEVEL 7.4 MG/DL (8.8-10.2); CARBON DIOXIDE LEVEL 30 MEQ/L (21-32); CHLORIDE LEVEL 107 MEQ/L (98-107); CREATININE FOR GFR 0.81 MG/DL (0.55-1.30); GLOMERULAR FILTRATION RATE > 60.0 (>32); GLUCOSE, FASTING 88 MG/DL (70-100); MAGNESIUM LEVEL 2.1 MG/DL (1.8-2.4); POTASSIUM SERUM 3.4 MEQ/L (3.5-5.1); SODIUM LEVEL 140 MEQ/L (136-145); TOTAL PROTEIN 5.3 GM/DL (6.4-8.2)
[2020-10-11] MEDS ORDERED: LR 1,000 ML IV SCH (08:00)
[2020-10-11] MEDS: DOCUSATE SODIUM 100MG CAPSULE PO SCH ×2 (08:45→22:00)
[2020-10-11] MEDS: CREON-24 CAPSULE PO SCH ×3 (08:45→18:27)
[2020-10-11] MEDS: POTASSIUM CHLORIDE 10 MEQ SR TABLET PO SCH ×2 (08:45→08:49)
[2020-10-11] MEDS: LOSARTAN 50MG TABLET PO SCH (08:48)
[2020-10-11] MEDS: OMEPRAZOLE 20 MG CAP PO SCH (08:48)
[2020-10-11] MEDS: FUROSEMIDE 80 MG TAB PO SCH (08:48)
[2020-10-11] MEDS ORDERED: POTASSIUM CHLORIDE 10 MEQ SR TABLET PO ONE (10:00)
--- NOTE | 2020-10-11 11:13 | IPNPDOC ---
Text Note Date of Service The patient was seen on 10/11/20. NOTE Hospitalist Progress Note Subjective: And patient reports that the pain in her abdomen has improved, although she does continue to have some pain in her back. She has been tolerating clear liquid diet well, and requests that we advance her diet at this time, which we will do. Liver enzymes are still elevated, but trending down at this time. Objective: General: Awake, alert, oriented 3. Not in any acute distress. HEENT: Head normocephalic, atraumatic, sclera are nonicteric. Hearing is grossly intact to conversation. Respiratory: Clear to auscultation bilaterally with no wheezes, rales, or rhonchi. Cardiovascular: Regular rate and rhythm, with no rubs, gallops, 3-4/6 systolic murmur. Abdomen: Soft, nontender, nondistended, no hepatosplenomegaly appreciated. Bowel sounds present. Extremities: 2+ pulses in the radial and dorsalis pedis bilaterally. No evidence of clubbing or cyanosis. Assessment: Cholelithiasis with ductal dilatation, but no evidence of choledocholithiasis on imaging Transaminitis, improving Hypokalemia Hyperbilirubinemia, resolved History of congestive heart failure History of atrial fibrillation, currently rate controlled History of COPD History of pancreatic insufficiency Left lower extremity wound Hypothyroidism GERD DVT prophylaxis with home dose of Xarelto Plan: I will lower her rate of fluids down to 50 mL per hour (since she does have a history of congestive heart failure), and also switch her from normal saline to lactated Ringer's because of hypokalemia. Potassium supplementation as also been ordered this morning, typically she is on 10 any daily, I have ordered 40 in the queue for today. She has been tolerating the clear liquid diet well, therefore we will advance as tolerated. Otherwise, we'll continue the remainder of her home medications for her chronic medical conditions. Disposition: If pain improves, and she tolerates diet well, tentatively would anticipate discharge tomorrow. VS,Fishbone, I+O VS, Fishbone, I+O Laboratory Tests 10/10/20 20:06 10/11/20 06:11 Vital Signs Date Time Temp Pulse Resp B/P (MAP) Pulse Ox O2 Delivery O2 Flow Rate FiO2 10/11/20 08:48 66 149/56 10/11/20 06:00 98.5 20 94 10/10/20 22:00 Room Air I&O- Last 24 Hours up to 6 AM 10/11/20 06:00 Intake Total 1240 ml Output Total 0 ml Balance 1240 ml KARMEN FISCHER 13, 2021 11:13
[2020-10-11 14:00] VITALS: BP 130/52
[2020-10-11 21:01] VITALS: BP 122/49
[2020-10-12 05:59] VITALS: BP 162/72
[2020-10-12] MEDS: LEVOTHYROXINE 75MCG TABLET (0.075MG) PO SCH (06:57)
[2020-10-12 07:02] LABS: HEMATOCRIT 34.5 % (36.0-47.0); HEMOGLOBIN 10.2 g/dl (12.0-15.5); MEAN CORPUSCULAR HEMOGLOBIN 28.7 pg (27.0-33.0); MEAN CORPUSCULAR HGB CONC 29.6 g/dl (32.0-36.5); MEAN CORPUSCULAR VOLUME 97.2 fl (80.0-96.0); PLATELET COUNT, AUTOMATED 172 10^3/uL (150-450); RED BLOOD COUNT 3.55 10^6/uL (4.00-5.40); WHITE BLOOD COUNT 3.4 10^3/uL (4.0-10.0)
[2020-10-12] MEDS: DOCUSATE SODIUM 100MG CAPSULE PO SCH (08:40)
[2020-10-12] MEDS: CREON-24 CAPSULE PO SCH (08:41)
[2020-10-12] MEDS: OMEPRAZOLE 20 MG CAP PO SCH (08:41)
[2020-10-12] MEDS: POTASSIUM CHLORIDE 10 MEQ SR TABLET PO SCH (08:41)
[2020-10-12] MEDS: LOSARTAN 50MG TABLET PO SCH (08:42)
[2020-10-12] MEDS: FUROSEMIDE 80 MG TAB PO SCH (08:42)
[2020-10-12 08:43] VITALS: BP 128/72
[2020-10-12] MEDS: LABETALOL 100MG TAB PO SCH (08:43)
--- NOTE | 2020-10-12 16:10 | DS.PDOC ---
Discharge Summary General Date of Admission Oct 10, 2020 at 18:47 Date of Discharge 10/12/2020 Discharge Summary PRIMARY CARE PHYSICIAN: Winifred Sherman ATTENDING AT TIME OF DISCHARGE: Dr. Karmen Restrepo, DO DISCHARGE DIAGNOS(E)S: Cholelithiasis with ductal dilatation, but no evidence of choledocholithiasis on imaging Transaminitis Hypokalemia Hyperbilirubinemia History of congestive heart failure History of atrial fibrillation, currently rate controlled History of COPD History of pancreatic insufficiency Left lower extremity wound Hypothyroidism GERD HPI & HOSPITAL COURSE: 80-year-old female who presented to the emergency department twice in 2 days with the same complaints, that of abdominal pain in the right upper quadrant and worsening back pain. Given her clinical history, labs, imaging, it appears that she likely had choledocholithiasis, however by the time imaging was performed she probably passed the stone. She was treated with gentle fluid administration (given her history of congestive heart failure). But otherwise no additional specific therapy was provided, and her transaminitis and other lab abnormalities improved/resolved, her pain subsided, and she is completely pain- free at this time, and has tolerated a regular diet yesterday afternoon and for breakfast this morning. Therefore, she appears to be stable and appropriate for discharge at this time. PHYSICAL EXAMINATION ON DISCHARGE: GENERAL: Awake, alert, oriented 3. CARDIOVASCULAR EXAMINATION: Although she has diagnoses of atrial fibrillation, her rate does appear to be normal at this time, no rubs, gallops, or murmur. RESPIRATORY EXAMINATION: Clear to auscultation bilaterally with no wheezes, rales, or rhonchi. ABDOMINAL EXAMINATION: Soft, nontender, nondistended. Bowel sounds present. EXTREMITIES: No clubbing or edema noted. 2+ pulses in the radial bilaterally. DISPOSITION: Home DISCHARGE INSTRUCTIONS: Follow-up with PCP within 7-14 days. Regular diet. Activity as tolerated. If symptoms return, or if you experience worsening of your symptoms, please call your doctor or return to the emergency department. Vital Signs/I&Os Vital Signs Date Time Temp Pulse Resp B/P (MAP) Pulse Ox O2 Delivery O2 Flow Rate FiO2 10/12/20 08:43 66 128/72 10/12/20 05:59 98.2 18 93 Room Air I&O- Last 24 Hours up to 6 AM 10/12/20 06:00 Intake Total 1550 ml Output Total 1350 ml Balance 200 ml Laboratory Data Labs 24H Laboratory Tests 2 10/12/20 06:23: Nucleated Red Blood Cells % (auto) 0.0 CBC/BMP Laboratory Tests 10/12/20 06:23 Discharge Medications Scheduled Cyanocobalamin (Cyanocobalamin Injection) 1,000 Mcg/1 Ml Vial, 1,000 MCG IM QMONTH, (Reported) PATIENT HAD DOSE FOR THIS MONTH LAST WEEK; UNSURE OF DAY Ergocalciferol (Vitamin D2) (Drisdol) 1,250 Mcg Capsule, 50,000 UNIT PO QWEEK, (Reported) FRIDAYS Furosemide (Furosemide) 40 Mg Tablet, 80 MG PO DAILY, (Reported) Labetalol HCl (Labetalol HCl) 100 Mg Tablet, 100 MG PO BID, (Reported) Levothyroxine Sodium (Synthroid) 75 Mcg Tablet, 75 MCG PO DAILY, (Reported) Lipase/Protease/Amylase (Zenpep Dr 20,000 Unit Capsule) 1 Each Capsule.dr, 3 CAP PO WM, (Reported) Lipase/Protease/Amylase (Zenpep Dr 20,000 Unit Capsule) 1 Each Capsule.dr, 2 CAP PO ASDIRECTED, (Reported) WITH SNACKS Losartan Potassium (Losartan Potassium) 50 Mg Tablet, 50 MG PO DAILY, (Reported) Omeprazole (Omeprazole) 20 Mg Capsule.dr, 20 MG PO DAILY, (Reported) Potassium Chloride (Klor-Con M10) 10 Meq Tab.er.prt, 10 MEQ PO DAILY, (Reported) Rivaroxaban (Xarelto) 20 Mg Tablet, 20 MG PO QHS, (Reported) Scheduled PRN Albuterol Sulfate (Albuterol Sulfate) 2.5 Mg/0.5 Ml Vial.neb, 2.5 MG INH QID PRN for SHORTNESS OF BREATH, (Reported) Albuterol Sulfate (Ventolin Hfa) 18 Gm Hfa.aer.ad, 2 PUFF INH Q4H PRN for SHORTNESS OF BREATH, (Reported) Budesonide/Formoterol (Symbicort 160-4.5 Mcg Inhaler) 6 Gm Hfa.aer.ad, 2 PUFF INH BID PRN for SHORTNESS OF BREATH, (Reported) Clobetasol Propionate (Clobetasol Emollient 0.05% Crm) 60 Gm Cream..g., 1 DOSE PV DAILY PRN for ITCHING/SWELLING, (Reported) Loperamide HCl (Loperamide) 2 Mg Capsule, 2 MG PO DAILY PRN for DIARRHEA, (Repo rted) MAY TAKE 1-2 CAPSULES DAILY Allergies Coded Allergies: atorvastatin (Verified Allergy, Intermediate, mulscle pain /hives, 04/22/19) tramadol (Verified Adverse Reaction, Intermediate, took 2 and had hypertention went to ER, 04/22/19) adhesive (Verified Adverse Reaction, Unknown, tears skin, 04/22/19) gabapentin (Verified Adverse Reaction, Unknown, visual hallucinations, 04/22/19) visual hallucinations KARMEN RESTREPO 14, 2021 16:10
--- NOTE | 2020-10-12 16:43 | ECGEPIP ---
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
== END 2020-10-12 12:30 | disposition home or self-care (01) ==
LOC: M ED 18:46 → M ED INP 18:47 → ENRESERV 10-11 00:30 → M MS5PR 10-11 01:15
PROVIDERS: ADMIT Internal Medicine; ATTEND Neuromusculoskeletal Medicine & OMM
DX: K80.20 Calculus of gallbladder without cholecystitis without obstruction (principal); K83.8 Other specified diseases of biliary tract; R74.01 Elevation of levels of liver transaminase levels; E87.6 Hypokalemia; E80.6 Other disorders of bilirubin metabolism; I48.91 Unspecified atrial fibrillation; I50.9 Heart failure, unspecified; R10.11 Right upper quadrant pain; M54.5 Low back pain; J90 Pleural effusion, not elsewhere classified; Z85.3 Personal history of malignant neoplasm of breast; Z85.028 Personal history of other malignant neoplasm of stomach; Z85.41 Personal history of malignant neoplasm of cervix uteri; J44.9 Chronic obstructive pulmonary disease, unspecified; K86.89 Other specified diseases of pancreas; E03.9 Hypothyroidism, unspecified; K21.9 Gastro-esophageal reflux disease without esophagitis; S81.802A Unspecified open wound, left lower leg, initial encounter; X58.XXXA Exposure to other specified factors, initial encounter; Y92.89 Other specified places as the place of occurrence of the external cause; Z95.5 Presence of coronary angioplasty implant and graft; Z86.73 Personal history of transient ischemic attack (TIA), and cerebral infarction without residual deficits; J45.909 Unspecified asthma, uncomplicated; Z79.899 Other long term (current) drug therapy; Z79.01 Long term (current) use of anticoagulants; Z88.8 Allergy status to other drugs, medicaments and biological substances; Z88.5 Allergy status to narcotic agent; Z91.048 Other nonmedicinal substance allergy status
CPT/HCPCS: 36415; 76705; 80048; 80053; 80076; 82550; 82553; 83690; 83735; 84484; 85025; 85027; 87631; 93005; 93041; 96361; 96374; 96375; 96376; 99285; G0378; J1885; J2405

== ENCOUNTER 2020-11-30 15:05 | Emergency (ER) | payer MEDICARE, OTHER ==
[~2020-11-30] VITALS: Ht 144.8 cm; Wt 45.6 kg
[~2020-11-30 15:05] MED LIST changes: +ERGO500029 PO; +LOPE1CAP5 PO; +OMEP-218 PO
[2020-11-30 21:17] VITALS: BP 180/90
== END 2020-11-30 21:20 | disposition home or self-care (01) ==
LOC: M ED 15:05
DX: S41.111A Laceration without foreign body of right upper arm, initial encounter (principal); W22.8XXA Striking against or struck by other objects, initial encounter; Y92.018 Other place in single-family (private) house as the place of occurrence of the external cause; I10 Essential (primary) hypertension; I48.91 Unspecified atrial fibrillation; Z79.899 Other long term (current) drug therapy; Z79.01 Long term (current) use of anticoagulants; Z88.8 Allergy status to other drugs, medicaments and biological substances; Z91.048 Other nonmedicinal substance allergy status

== ENCOUNTER → 2020-12-22 | Outpatient (CLI) | payer MEDICARE, OTHER ==
--- NOTE | 2020-12-22 11:55 | DEXAMM ---
INDICATION: [age] AGE REL OSTEOPOROSIS W/O FX. Bilateral hip replacements. COMPARISON: July 10, 2009. TECHNIQUE: Bone density was measured using dual-energy x-ray absorptionmetry (DEXA). FINDINGS: AP SPINE L1-L4 BMD 0.914 g/cm2 Young Adult T-Score -2.3 Age Matched Z-Score -0.4. LT forearm, radius 33%, BMD 0.382 g/cm2 Young Adult T-Score -5.6 Age Matched Z-Score -2.8. IMPRESSION: There is low bone density of the spine. There is osteoporosis of the left forearm. The density of the spine has decreased 23.3% since the initial exam on December 11, 2001. The density of the spine decreased 1.6% since most recent exam on January 20, 2017. The density of the left forearm has decreased 18.2% since initial exam on January 20, 2017. FOLLOW-UP: Recommendation for the next bone density exam: 2 years. <Electronically signed by Derick Redd > 12/22/20 [id number]
== END ==
LOC: M WHC 09:09
PROVIDERS: ATTEND Family Medicine
DX: M81.0 Age-related osteoporosis without current pathological fracture (principal); M85.80 Other specified disorders of bone density and structure, unspecified site

== ENCOUNTER → 2021-01-22 | Outpatient (CLI) | payer MEDICARE, OTHER ==
[~2021-01-22] MED LIST changes: -KLOR10TA76 PO; +POTA-136 PO
== END ==
LOC: M LABSMTC 10:02
PROVIDERS: ATTEND Internal Medicine Cardiovascular Disease
DX: Z20.828 Contact with and (suspected) exposure to other viral communicable diseases (principal); Z11.59 Encounter for screening for other viral diseases

== ENCOUNTER → 2021-02-18 | Outpatient (CLI) | payer MEDICARE, OTHER ==
[~2021-02-18] MED LIST changes: +OMEP-221 PO; +SYMB16INH
== END ==
LOC: M LABSMTC 10:48
PROVIDERS: ATTEND Anesthesiology
DX: Z01.812 Encounter for preprocedural laboratory examination (principal); Z20.822 Contact with and (suspected) exposure to COVID-19

== ENCOUNTER 2021-02-27 20:09 | Inpatient (IN) | payer MEDICARE, OTHER ==
[~2021-02-27] VITALS: Ht 144.8 cm; Wt 45.5 kg
[~2021-02-27 20:09] MED LIST changes: -AUGM875T28 PO; -BACITAB PO; -LOSA100T50 PO; -NORV5TAB PO; -SELF1KIT MC
--- OUTSIDE RECORDS SUMMARY | 2021-02-27 20:14 | CCD | Continuity of Care Document ---
Author Author Ita CELESTIN D.O. Organization Unknown Address [address] [facility] [address] [place] [address] Phone [phone] Care Team Providers Care Bacteriologist Soil Name Role Phone Ivette Celestin D.O. AUTM Seth Acosta M.D. AUTM [phone] Deangelo Baldwin D.O. AUTM [phone] Woo Cruz M.D. AUTM [phone] Cadence Huang M.D. AUTM [phone] Problems Active Problems Provider Date Disorder of protein metabolism AURA Mccallum Onset: 05/29/2015 Hypothyroidism AURA Mccallum Onset: 03/29/2016 Paroxysmal atrial fibrillation AURA Mccallum Onset: 05/29/2015 Nausea AURA Mccallum Onset: 03/29/2016 Lymphedema AURA Mccallum Onset: 06/20/2016 Anemia of chronic renal failure AURA Mccallum Onset: 06/20/2016 Low back pain AURA Mccallum Onset: 06/20/2016 Uncomplicated moderate persistent asthma Ivette ruth D.O. Onset: 11/17/2016 Edema Ivette Celestin D.O. Onset: 2016 Anemia of chronic disease Ivette Celestin D.O. Onset: 11/17/2016 Vitamin D deficiency Ivette Celestin D.O. Onset: 11/17 Severe protein-calorie malnutrition (Gom ez: less than 60 percent of standard weight) Ivette Celestin D.O. Onset: 04/18/2017 Mild intermittent asthma Ivette Celestin D.O. Onset: 1 06/19/2016 Diarrhea AURA Mccallum Onset: 2017 Ulcer of lower extremity AURA Mccallum Onset: 018 Long-term current use of anticoagulant AURA Haider O nset: 10/03/2018 Aortic valve disorder AURA Haider Onset: 10/03/2018 Prosthetic arthroplasty of the hip AURA Haider Onset : 01/03/2019 Social History Type Date Description Comments Sex Unknown Tobacco Use Start: Unknown End: Quit Smoking Status Reviewed: 01/28/21 Quit ETOH Use Denies alcohol use Recreational Drug Use Denies Drug Use Tobacco Use Start: Unknown End: Unknown Patient is a former smoker Exercise Type/Frequency Does not exercise Sun Exposure Does not use sunscreen Seat Belt/Car Seat Always uses seat belt Allergies and adverse reactions Active Allergies Criticality Reaction | Severity Comments Date Atorvastatin Unable to assess criticality | Mild 11/06/2014 Rosuvastatin Unable to assess criticality | Mild 08/01/2012 Inactive Allergies NKDA Unable to assess criticality 12/08/2015 Medications Active Medications SIG Qnty Indications Ordering Provide r Date Sucralfate 1gm Tablets 1 tab by mouth four times daily before meals as needed 60tabs D63.8 Anish Alcantara.O. 02/11/[address] 1 by mouth every day 90caps D63.8 Anish Duncan.O. 02/04 Levothyroxine Sodium 75mcg Tablets 1 tab by mouth every morning 90tabs E03.9 Amelie DuncanO Doris 01/28/2021 Potassium Chloride Naz ER 10Meq Tablets ER 1 by mouth every day in the morning 90tabs Anish Duncan.ODoris 06/05/2020 Xarelto 20mg Tablets take one tablet by mouth every day 90tabs Anish Duncan.O. 01/11 /2021 Vitamin D (Ergocalciferol) 1.25mg (04148 Ut) Capsules Take 1 Capsule By Mouth Once A Week 4caps Amelie DuncanODoris 01/13/2020 Symbicort 160-4.5mcg/Act Aerosol 1 puffs twice a day, rinse out mouth afterwards. 10.200gm Amelie LanierODoris 02/22/2019 Tylenol Extra Strength 500mg Table ts 2 tablets by mouth every 8 hours as needed 30tabs Amelie LanierODoris 01/23/[id number] Bernard 1 tab by mouth three times a day with meals Unknown Losartan Potassium 100mg Tablets 1 by mouth every day 90tabs Amelie DuncanO. Loperamide HCL 2mg Capsules one capsule daily as needed for diarrhea Unknown Furosemide 40mg Tablets 2 by mouth every day 180tabs Amelie DuncanODoris Labetalol HCL 100mg Tablets Take One Tablet By Mouth Twice A Day 90tabs Amelie DuncanO. Albuterol Sulfate (2 .5mg/3ML) 0.083% Nebulizer 1 vial by nebulizer every 4 hour as needed (30 days supply) Unknown Clobetasol Propionate 0.05% Cream Apply Thin Layer Topically To Affected Areas Two Times A Day as Needed For Flare Ups 30units Amelie DuncanODoris Cyanocobalamin 1000mcg/ML Solution Inject 1ML Once A Month 3units Amelie DuncanODoris Ventolin HFA 108(90Base) mcg/Act A erosol 2 puffs every 4 hours shortness of breath or wheezing Unknown History Medications Sucralfate 1GM/10ML Suspension 10 milliliters by mouth four times daily before meals as needed 420ml D63.8 Amelie DuncanODoris 02/04/2021 - 02/11/2021 Immunizations CPT Code Status Date Vaccine Lot # [id number] Given 10/05/2015 Pneumococcal Con jugate Vaccine 13 Valent For Intramuscular Use Vital Signs Date Vital Result Comment 02/22/2021 11:49am BP Systolic 134 mmHg BP Diastolic 74 mmHg Height 57.6 inches 4'9.60" Weight 101.12 lb BMI (Body Mass Index) 21.4 kg/m2 Heart Rate 86 /min Respiratory Rate 18 /min Body Temperature 96.9 F O2 % BldC Oximetry 95 % [place] Body Weight 100 lb 02/11/2021 1:25pm BP Systolic 134 mmHg BP Diastolic 82 mmHg Height 57.6 inches 4'9.60" Weight 100.38 lb BMI (Body Mass Index) 21.3 kg/m2 Heart Rate 67 /min Respiratory Rate 18 /min Body Temperature 97.6 F O2 % BldC Oximetry 99 % [place] Body Weight 100 lb Results Test Acquired Date Facility Test Result H/L Range Note Coronavirus 2019 Nasopharygeal 02/18/2021 [facility] Outpa tient Testing (Registration) [address] [place] [address] [phone] Coronavirus 2019 Nasopharygeal ASSAY INFORMATIO <SEE N OTE> 1 Coronavirus 2019 Nasopharygeal 01/22/2021 [facility] Outpa tient Testing (Registration) [address] [place] [address]014 [phone] Coronavirus 2019 Nasopharygeal ASSAY INFORMATIO <SEE N OTE> 2 Basic Metabolic Profile 10/09/2020 [facility] Outpatient T esting (Registration) [address] [place] [address]45 [phone] Glucose, Fasting 151 mg/dL High 70-100 Blood Urea Nitrogen 14 mg/dL Normal 7-18 Creatinine For GFR 0.66 mg/dL Normal 0.55-1.30 Glomerular Filtration Rate > 60.0 Normal >32 3 Sodium Level 138 mEq/L Normal 136-145 Potassium Serum 2.9 mEq/L Critical low 3.5-5.1 Chloride Level 101 mEq/L Normal 98-107 Carbon Dioxide Level 34 mEq/L High 21-32 Anion Gap 3 mEq/L Low 8-16 Calcium Level 8.6 mg/dL Low 8.8-10.2 Laboratory test finding 10/09/2020 [facility] Outpatient T esting (Registration) [address] [place] [address]838 [phone] Amylase 41 U/L Normal 25-115 Lipase 34 U/L Low 73-393 Cardiac Marker Panel 10/09/2020 [facility] Outpatient Test ing (Registration) [address] [place] [address] 37284 [phone] CPK Creatine Phosphokinase 98 U/L Normal 26-19 2 CK-MB Value Mass 1.6 NG/ML Normal <3.6 MB/CK Relative Index 1.63 Normal < Or =4 4 Troponin I < 0.02 NG/ML Normal < 0.10 5 CBC With Differential 10/09/2020 [facility] Outpatient Natalie ting (Registration) [address] [place] [address]3909 [phone] White Blood Count 6.1 10 Normal 4.0-10.0 Red Blood Count 3.95 10 Low 4.00-5.40 Hemoglobin 11.1 g/dL Low 12.0-15.5 Hematocrit 35.7 % Low 36.0-47.0 Mean Corpuscular Volume 90.4 fl Normal 80.0-96.0 Mean Corpuscular Hemoglobin 28.1 pg Normal 27.0-33.0 Mean Corpuscular HGB Conc 31.1 g/dL Low 32.0-36.5 Red Cell Distribution Width 14.0 % Normal 11.5-14.5 Platelet Count, Automated 259 10 Normal 150-450 Neutrophils % 78.3 % High 36.0-66.0 Lymph % 13.3 % Low 24.0-44.0 Pierce % 5.4 % Normal 2.0-8.0 Eos % 2.0 % Normal 0.0-3.0 Baso % 0.7 % Normal 0.0-1.0 Immature Granulocyte % 0.3 % Normal 0-3.0 Nucleated Red Blood Cell % 0.0 % Normal 0-0 Neutrophils # 4.8 10 Normal 1.5-8.5 Lymph # 0.8 10 Low 1.5-5.0 Pierce # 0.3 10 Normal 0.0-0.8 Eos # 0.1 10 Normal 0.0-0.5 Baso # 0.0 10 Normal 0.0-0.2 Ua W/ Reflex To Culture 10/09/2020 [facility] Outpatient T esting (Registration) [address] [place] [address] [phone] Appearance, Urine RFX HAZY Normal Clear Color, Urine RFX YELLOW Normal Yellow PH,Urine RFX 7.0 units Normal 5.0-9.0 Specific [place] Ur Auto RFX 1.009 Normal 1.002-1.035 Protein, Urine Auto RFX 1+ mg/dL High Negative Glucose, Urine (Ua) Auto RFX 1+ mg/dL High Negative Ketone, Urine Auto RFX TRACE mg/dL High Negative Urobilinogen, Urine Auto RFX 2.0 mg/dL High 0.0-2.0 Bilirubin, Urine Auto RFX NEGATIVE Normal Negative Nitrite, Urine Auto RFX NEGATIVE Normal Negative Leukocyte Esterase Ur Auto RFX NEGATIVE Normal Negative Blood, Urine Blood RFX 1+ High Negative WBC, Urine Auto RFX 0 /HPF Normal 0-3 RBC, Urine Auto RFX 2 /HPF Normal 0-3 Bacteria, Urine Auto RFX 1+ High Negative Squam Epithelial Cell Ur Aurfx 0 /HPF Normal 0-6 Mucus, Urine RFX SMALL Normal Negative Hyaline Cast, Urine Auto RFX 0 /LPF Normal 0-1 Amorphous Sediment RFX SMALL High Negative Liver Profile 10/09/2020 [facility] Outpatient Testi wali (Registration) [address] [place] [address] [phone] Ast/Sgot 247 U/L High 7-37 Alt/SGPT 88 U/L High 12-78 Alkaline Phosphatase 201 U/L High 45-117 Bilirubin,Total 1.5 mg/dL High 0.2-1.0 Bilirubin,Direct 1.0 mg/dL High 0.0-0.2 Total Protein 7.8 GM/DL Normal 6.4-8.2 Albumin 3.3 GM/DL Normal 3.2-5.2 Albumin/Globulin Ratio 0.7 Low 1.2-2.2 1 ASSAY INFORMATION: Real Time RT-PCR or TMA. Both RT-PCR and TMA are nucleic acid amplification tests (NAAT) which are molecular testing modalities and recommended by the CDC for passenger travel. Testing and International Air Travel, cdc.gov/coronavirus/2019-ncov/travelers/ceacxun-vfm-wkzaio.html 06/18/2020 NOTE: The COVID-19 assay is under Emergency Use Authorization (EUA) by the U.S. Food and Drug Administration. [email or web address] and [facility] are designated as high complexity laboratories by the Clinical Laboratory Improvement Amendments of 1988 (CLIA) and are qualified to perform this test. Not Detected 2 ASSAY INFORMATION: Real Time RT-PCR NOTE: The COVID-19 assay has been cleared by the U.S. Food and Drug Administration under the Emergency Use Authorization (EUA). [email or web address] and [facility] are designated as high complexity laboratories by the Clinical Laboratory Improvement Amendments of 1988(CLIA) and are qualified to perform this test. Not Detected 3 Units are mL/min/1.73 m2 Chronic Kidney Disease Staging per NKF: Stage I & II GFR >=60 Normal to Mildly Decreased Stage III GFR 30-59 Moderately Decreased Stage IV GFR 15-29 Severely Decreased Stage V GFR <15 Very Little GFR Left ESRD GFR <15 on LEARNING SPECIALIST 4 DIAGNOSIS CRITERIA MMB ng/ml Relative Index (RI) NON-AMI < or = 5 N/A FLOWERS ZONE > 5 < or = 4 AMI > 5 > 4 5 Troponin I Reference Interva l for Dana Translation LOCI: 99th Percentile= 0.00-0.045 ng/ml Risk Stratification: <= 0.10 ng/ml Decreased Risk for Adverse Clinical Events. 0.10-1.50 ng/ml Increased Risk for Adv erse Clinical Events. Evaluation of additional criterion and/or repeat testing in 2-6 hours is suggested to rule out myocardial damage. >= 1.50 ng/ml Indicative of Myocardial Injury. Procedures Date Code Description Status 02/22/2021 21841 Office/Outpatient Established Lo w MDM 20-29 Min Completed 02/11/2021 61716 Office/Outpatient Established Lo w MDM 20-29 Min Completed 02/04/2021 30248 Office/Outpatient Established Mo d MDM 30-39 Min Completed 01/28/2021 65861 Office/Outpatient Established Mo d MDM 30-39 Min Completed 12/02/2020 31321 Office/Outpatient Established Lo w MDM 20-29 Min Completed 11/12/2020 16249 Office/Outpatient Established Mo d MDM 30-39 Min Completed 10/20/2020 98290 [facility] Cre W/I 7 Days Of DC, Comm W/I 2 Dys Completed 09/08/2020 38374 Office/Outpatient Established Mo d MDM 30-39 Min Completed Medical Devices Description No Information Available Encounters Type Date Location Provider Dx Diagnosis Office Visit 02/22/2021 11:40a [facility] Anish Duncan.O. D62 Acute posthemorrhagic anemia D63.8 Anemia in other chronic dise ases classified elsewhere E03.9 Hypothyroidism, unspecified J45.40 Moderate persistent asthma, uncomplicated D51.9 Vitamin B12 deficiency anemi a, unspecified I48.0 Paroxysmal atrial fibrillati on I35.0 Nonrheumatic aortic (valve) stenosis I34.0 Nonrheumatic mitral (valve) insufficiency Office Visit 02/11/2021 1:20p [facility] Anish Duncan.O. D62 Acute posthemorrhagic anemia D63.8 Anemia in other chronic dise ases classified elsewhere E03.9 Hypothyroidism, unspecified J45.40 Moderate persistent asthma, uncomplicated D51.9 Vitamin B12 deficiency anemi a, unspecified Office Visit 02/04/2021 1:10p [facility] Anish Duncan.O. D62 Acute posthemorrhagic anemia D63.8 Anemia in other chronic dise ases classified elsewhere E03.9 Hypothyroidism, unspecified J45.40 Moderate persistent asthma, uncomplicated D51.9 Vitamin B12 deficiency anemi a, unspecified I48.0 Paroxysmal atrial fibrillati on I35.0 Nonrheumatic aortic (valve) stenosis I34.0 Nonrheumatic mitral (valve) insufficiency Office Visit 01/28/2021 2:40p [facility] Anish Duncan.O. D63.8 Anemia in other chronic dise ases classified elsewhere E03.9 Hypothyroidism, unspecified J45.40 Moderate persistent asthma, uncomplicated D51.9 Vitamin B12 deficiency anemi a, unspecified Office Visit 12/02/2020 9:40a [facility] Anish Duncan.O. S51.011A Laceration without foreign b tariq of right elbow, init encntr M81.0 Age-related osteoporosis w/o current pathological fracture Office Visit 11/12/2020 10:00a [facility] AURA Mccallum I10 Essential (primary) hyperten joel E03.9 Hypothyroidism, unspecified I48.0 Paroxysmal atrial fibrillati on J45.40 Moderate persistent asthma, uncomplicated I35.0 Nonrheumatic aortic (valve) stenosis D63.8 Anemia in other chronic dise ases classified elsewhere R60.9 Edema, unspecified Office Visit 10/20/2020 1:40p [facility] AURA Mccallum K80.80 Other cholelithiasis without obstruction Office Visit 09/08/2020 10:00a [facility] Ivette Celestin D.O. I10 Essential (primary) hyperten joel E03.9 Hypothyroidism, unspecified S81.812D Laceration without foreign b tariq, left lower leg, subs encntr I48.0 Paroxysmal atrial fibrillati on J45.40 Moderate persistent asthma, uncomplicated I35.0 Nonrheumatic aortic (valve) stenosis Z88.8 Allergy status to other drug /meds/biol subst Z87.891 Personal history of nicotine dependence Z79.899 Other shelter (current) dr moffett therapy I34.0 Nonrheumatic mitral (valve) insufficiency D63.8 Anemia in other chronic dise ases classified elsewhere E87.6 Hypokalemia Z96.642 Presence of left artificial hip joint 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 02/22/2021 J45.40 Moderate persistent asthma, unco mplicated Anish Singletary.ODoris 02/22/2021 D51.9 Vitamin B12 deficiency anemia, u nspecified Anish Singletary.O. 02/22/2021 I48.0 Paroxysmal atrial fibrillation Anish Frederick.ODoris 02/22/2021 I35.0 Nonrheumatic aortic (valve) sten osis Anish Duncan.O. 02/22/2021 I34.0 Nonrheumatic mitral (valve) insu fficiency Ivette Celestin, D.O. 02/11/2021 D62 Acute posthemorrhagic anemia Anai prado Sabi, D.O. 02/11/2021 D63.8 Anemia in other chronic diseases classified elsewhere Ivette Celestin, D.O. 02/11/2021 E03.9 Hypothyroidism, unspecified Ivette Celestin, D.O. 02/11/2021 J45.40 Moderate persistent asthma, unco mplicated Ivette Ventura, D.O. 02/11/2021 D51.9 Vitamin B12 deficiency anemia, u nspecified Ivette Ventura, D.O. 02/04/2021 D62 Acute posthemorrhagic anemia Anai l Sabi, D.O. 02/04/2021 D63.8 Anemia in other chronic diseases classified elsewhere Ivette Celestin, D.O. 02/04/2021 E03.9 Hypothyroidism, unspecified Ivette Celestin, D.O. 02/04/2021 J45.40 Moderate persistent asthma, unco mplicated Ivette Ventura, D.O. 02/04/2021 D51.9 Vitamin B12 deficiency anemia, u nspecified Ivette Ventura, D.O. 02/04/2021 I48.0 Paroxysmal atrial fibrillation Armen llamas Sabi, D.O. 02/04/2021 I35.0 Nonrheumatic aortic (valve) sten osis Ivette Celestin, D.O. 02/04/2021 I34.0 Nonrheumatic mitral (valve) insu fficiency Ivette Celestin, D.O. 01/28/2021 D63.8 Anemia in other chronic diseases classified elsewhere Ivette Celestin, D.O. 01/28/2021 E03.9 Hypothyroidism, unspecified Ivette Celestin, D.O. 01/28/2021 J45.40 Moderate persistent asthma, unco mplicated Ivette Hugo- Audrey, D.O. 01/28/2021 D51.9 Vitamin B12 deficiency anemia, u nspecified Ivette Ventura, D.O. 12/02/2020 S51.011A Laceration without f oreign body of right elbow, initial encounter Ivette Celestin D.O. 12/02/2020 M81.0 Age-related osteoporosis without current pathological fracture Ivette Celestin D.O. 11/12/2020 I10 Essential (primary) hypertension Mauri Herrera, AURA 11/12/2020 E03.9 Hypothyroidism, unspecified Wild Herrera, AURA 11/12/2020 I48.0 Paroxysmal atrial fibrillation S bettie Herrera, PA 11/12/2020 J45.40 Moderate persistent asthma, unco mplicated Mauri Herrera, AURA 11/12/2020 I35.0 Nonrheumatic aortic (valve) sten osis Mauri Herrera, AURA 11/12/2020 D63.8 Anemia in other chronic diseases classified elsewhere Mauri Herrera, AURA 11/12/2020 R60.9 Edema, unspecified Mauri hernandez, PA 10/20/2020 K80.80 Other cholelithiasis without obs truction Mauri Herrera, AURA 09/08/2020 I10 Essential (primary) hypertension Ivette Celestin, D.O. 09/08/2020 E03.9 Hypothyroidism, unspecified Ivette Celestin, D.O. 09/08/2020 S81.812D Laceration without f oreign body, left lower leg, subsequent encounter Ivette Celestin D.O. 09/08/2020 I48.0 Paroxysmal atrial fibrillation Armen ill Sabi D.O. 09/08/2020 J45.40 Moderate persistent asthma, unco mplicated Ivette Ventura D.O. 09/08/2020 I35.0 Nonrheumatic aortic (valve) sten osis Ivette Celestin D.O. 09/08/2020 Z88.8 Allergy status to ot her drugs, medicaments and biological substances Ivette Celestin D.O. 09/08/2020 Z87.891 Personal history of nicotine dep endence Ivette Celestin D.O. 09/08/2020 Z79.899 Other rodent exterminator (current) drug t herapy Ivette Celestin D.O. 09/08/2020 I34.0 Nonrheumatic mitral (valve) insu fficiency Ivette Celestin D.O. 09/08/2020 D63.8 Anemia in other chronic diseases classified elsewhere Ivette Celestin D.O. 09/08/2020 E87.6 Hypokalemia Ivette ortiz D.O. 09/08/2020 Z96.642 Presence of left artificial hip joint Ivette Celestin D.O. 09/08/2020 I25.10 Atherosclerotic hear t disease of [place] coronary artery without angina pectoris Ivette Celestin D.O. Plan of Treatment Future Appointment(s):* 03/02/2021 11:30 am - Ivette Celestin D.O. at [facility] Functional Status Description No Information Available Mental Status Description No Information Available Referrals Description No Information Available
--- OUTSIDE RECORDS SUMMARY | 2021-02-27 20:14 | CCD | Continuity of Care Document ---
Author Author Ita CELESTIN D.O. Organization Unknown Address [address] [facility] [address] [place] [address] Phone [phone] Care Team Providers Care Medicare Sales Executive Name Role Phone Ivette Celestin D.O. AUTM Seth Acosta M.D. AUTM [phone] Deangelo Baldwin D.O. AUTM [phone] Woo Cruz M.D. AUTM [phone] Cadecne Huang M.D. AUTM [phone] Problems Active Problems Provider Date Disorder of [...] Duncan.O. 01/11 /2021 Vitamin D (Ergocalciferol) 1.25mg (39837 Ut) Capsules Take 1 Capsule By Mouth Once A Week 4caps Amelie DuncanODoris 01/13/2020 Symbicort 160-4.5mcg/Act Aerosol 1 puffs twice a day, rinse out mouth afterwards. 10.200gm Amelie LanierODoris 02/22/2019 Tylenol Extra Strength 500mg Table ts 2 tablets by mouth every 8 hours as needed 30tabs Amelie LanierODoris 01/23/[id number] Bernard 1 tab by mouth [...] CPT Code Status Date Vaccine Lot # [id number] Given 10/05/2015 Pneumococcal Con jugate Vaccine 13 Valent For Intramuscular Use Vital Signs Date Vital Result Comment 02/22/2021 11:49am BP Systolic 134 mmHg BP Diastolic 74 mmHg Height 57.6 inches 4'9.60" Weight 101.12 lb BMI (Body Mass Index) 21.4 kg/m2 Heart Rate 86 /min Respiratory Rate 18 /min Body Temperature 96.9 F O2 % BldC Oximetry 95 % [place] Body Weight 100 lb 02/11/2021 1:25pm BP Systolic 134 mmHg BP Diastolic 82 mmHg Height 57.6 inches 4'9.60" Weight 100.38 lb BMI (Body Mass Index) 21.3 kg/m2 Heart Rate 67 /min Respiratory Rate 18 /min Body Temperature 97.6 F O2 % BldC Oximetry 99 % [place] Body Weight 100 lb Results Test Acquired Date Facility Test Result H/L Range Note Coronavirus 2019 Nasopharygeal 02/18/2021 [facility] Outpa tient Testing (Registration) [address] [place] [address]14 [phone] Coronavirus 2019 Nasopharygeal ASSAY INFORMATIO <SEE N OTE> 1 Coronavirus 2019 Nasopharygeal 01/22/2021 [facility] Outpa tient Testing (Registration) [address] [place] [address]217 [phone] Coronavirus 2019 Nasopharygeal ASSAY INFORMATIO <SEE N OTE> 2 Basic Metabolic Profile 10/09/2020 [facility] Outpatient T esting (Registration) [address] [place] [address] 68381 [phone] Glucose, Fasting 151 mg/dL High 70-100 Blood [...] mg/dL Low 8.8-10.2 Laboratory test finding 10/09/2020 [facility] Outpatient T esting (Registration) [address] [place] [address] 32738 [phone] Amylase 41 U/L Normal 25-115 Lipase 34 U/L Low 73-393 Cardiac Marker Panel 10/09/2020 [facility] Outpatient Test ing (Registration) [address] [place] [address] 97590 [phone] CPK Creatine Phosphokinase 98 U/L Normal 26-19 2 CK-MB Value Mass 1.6 NG/ML Normal <3.6 MB/CK Relative Index 1.63 Normal < Or =4 4 Troponin I < 0.02 NG/ML Normal < 0.10 5 CBC With Differential 10/09/2020 [facility] Outpatient Natalie ting (Registration) [address] [place] [address]1583 [phone] White Blood Count 6.1 10 Normal 4.0-10.0 [...] 36.0-66.0 Lymph % 13.3 % Low 24.0-44.0 [place] % 5.4 % Normal 2.0-8.0 Eos % 2.0 % Normal 0.0-3.0 Baso % 0.7 % Normal 0.0-1.0 Immature Granulocyte % 0.3 % Normal 0-3.0 Nucleated Red Blood Cell % 0.0 % Normal 0-0 Neutrophils # 4.8 10 Normal 1.5-8.5 Lymph # 0.8 10 Low 1.5-5.0 Cobb # 0.3 10 Normal 0.0-0.8 Eos # 0.1 10 Normal 0.0-0.5 Baso # 0.0 10 Normal 0.0-0.2 Ua W/ Reflex To Culture 10/09/2020 [facility] Outpatient T esting (Registration) [address] [place] [address] [phone] Appearance, Urine RFX HAZY Normal Clear Color, Urine RFX YELLOW Normal Yellow PH,Urine RFX 7.0 units Normal 5.0-9.0 Specific [place] Ur Auto RFX 1.009 Normal 1.002-1.035 Protein, [...] RFX SMALL High Negative Liver Profile 10/09/2020 [facility] Outpatient Testi wali (Registration) [address] [place] [address] [phone] Ast/Sgot 247 U/L High 7-37 Alt/SGPT 88 [...] passenger travel. Testing and International Air Travel, cdc.gov/coronavirus/2019-ncov/travelers/mtghzth-iss-ulzkzb.html 06/18/2020 NOTE: The COVID-19 assay is under Emergency Use Authorization (EUA) by the U.S. Food and Drug Administration. [facility] and [facility] are designated as high complexity laboratories by the Clinical Laboratory Improvement Amendments of 1988 (CLIA) and are qualified to perform this test. Not Detected 2 ASSAY INFORMATION: Real Time RT-PCR NOTE: The COVID-19 assay has been cleared by the U.S. Food and Drug Administration under the Emergency Use Authorization (EUA). [facility] and [facility] are designated as high complexity laboratories by [...] Little GFR Left ESRD GFR <15 on BREWERY PUMPER 4 DIAGNOSIS CRITERIA MMB ng/ml Relative Index (RI) NON-AMI < or = 5 N/A FLOWERS ZONE > 5 < or = 4 AMI > 5 > 4 5 Troponin I Reference Interva l for [employer] LOCI: 99th Percentile= 0.00-0.045 ng/ml Risk Stratification: <= 0.10 ng/ml Decreased Risk for Adverse Clinical Events. 0.10-1.50 ng/ml Increased Risk for Adv erse Clinical Events. Evaluation of additional criterion and/or repeat testing in 2-6 hours is suggested to rule out myocardial damage. >= 1.50 ng/ml Indicative of Myocardial Injury. Procedures Date Code Description Status 02/22/2021 35011 Office/Outpatient Established Lo w MDM 20-29 Min Completed 02/11/2021 21520 Office/Outpatient Established Lo w MDM 20-29 Min Completed 02/04/2021 16812 Office/Outpatient Established Mo d MDM 30-39 Min Completed 01/28/2021 24233 Office/Outpatient Established Mo d MDM 30-39 Min Completed 12/02/2020 32445 Office/Outpatient Established Lo w MDM 20-29 Min Completed 11/12/2020 41353 Office/Outpatient Established Mo d MDM 30-39 Min Completed 10/20/2020 61671 Kirkpatrick Cre W/I 7 Days Of DC, Comm W/I 2 Dys Completed 09/08/2020 86867 Office/Outpatient Established Mo d MDM 30-39 Min Completed Medical Devices Description No Information Available Encounters Type Date Location Provider Dx Diagnosis Office Visit 02/22/2021 11:40a [facility] Anish Duncan.O. D62 Acute posthemorrhagic anemia D63.8 Anemia in other chronic dise ases classified elsewhere E03.9 Hypothyroidism, unspecified J45.40 Moderate persistent asthma, uncomplicated D51.9 Vitamin B12 deficiency anemi a, unspecified I48.0 Paroxysmal atrial fibrillati on I35.0 Nonrheumatic aortic (valve) stenosis I34.0 Nonrheumatic mitral (valve) insufficiency Office Visit 02/11/2021 1:20p [facility] Anish Duncan.O. D62 Acute posthemorrhagic anemia D63.8 Anemia in other chronic dise ases classified elsewhere E03.9 Hypothyroidism, unspecified J45.40 Moderate persistent asthma, uncomplicated D51.9 Vitamin B12 deficiency anemi a, unspecified Office Visit 02/04/2021 1:10p [facility] Anish Duncan.O. D62 Acute posthemorrhagic anemia D63.8 Anemia in other chronic dise ases classified elsewhere E03.9 Hypothyroidism, unspecified J45.40 Moderate persistent asthma, uncomplicated D51.9 Vitamin B12 deficiency anemi a, unspecified I48.0 Paroxysmal atrial fibrillati on I35.0 Nonrheumatic aortic (valve) stenosis I34.0 Nonrheumatic mitral (valve) insufficiency Office Visit 01/28/2021 2:40p [facility] Anish Duncan.O. D63.8 Anemia in other chronic dise ases classified elsewhere E03.9 Hypothyroidism, unspecified J45.40 Moderate persistent asthma, uncomplicated D51.9 Vitamin B12 deficiency anemi a, unspecified Office Visit 12/02/2020 9:40a [facility] Anish Duncan.O. S51.011A Laceration without foreign b tariq of right elbow, init encntr M81.0 Age-related osteoporosis w/o current pathological fracture Office Visit 11/12/2020 10:00a [facility] AURA Mccallum I10 Essential (primary) hyperten joel E03.9 Hypothyroidism, unspecified I48.0 Paroxysmal atrial fibrillati on J45.40 Moderate persistent asthma, uncomplicated I35.0 Nonrheumatic aortic (valve) stenosis D63.8 Anemia in other chronic dise ases classified elsewhere R60.9 Edema, unspecified Office Visit 10/20/2020 1:40p [facility] AURA Mccallum K80.80 Other cholelithiasis without obstruction Office Visit 09/08/2020 10:00a [facility] Ivette Celestin D.O. I10 Essential (primary) hyperten joel E03.9 Hypothyroidism, unspecified S81.812D Laceration without foreign b tariq, left lower leg, subs encntr I48.0 Paroxysmal atrial fibrillati on J45.40 Moderate persistent asthma, uncomplicated I35.0 Nonrheumatic aortic (valve) stenosis Z88.8 Allergy status to other drug /meds/biol subst Z87.891 Personal history of nicotine dependence Z79.899 Other long-term (current) dr moffett therapy I34.0 Nonrheumatic mitral [...] endence Ivette Celestin D.O. 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 09/08/2020 I34.0 Nonrheumatic mitral (valve) insu fficiency Ivette Celestin D.O. 09/08/2020 D63.8 Anemia in other chronic diseases classified elsewhere Ivette Celestin D.O. 09/08/2020 E87.6 Hypokalemia Ivette ortiz D.O. 09/08/2020 Z96.642 Presence of left artificial hip joint Ivette Celestin D.O. 09/08/2020 I25.10 Atherosclerotic hear t disease of [place] coronary artery without angina pectoris Ivette Celestin D.O. Plan of Treatment Future Appointment(s):* 03/02/2021 11:30 am - Ivette Celestin D.O. at [facility] Functional Status Description No Information Available Mental Status Description No Information Available Referrals Description No Information Available
--- OUTSIDE RECORDS SUMMARY | 2021-02-27 20:14 | CCD | Continuity of Care Document ---
Author Author Ita CELESTIN D.O. Organization Unknown Address [address] [facility] [address] [place] [address] Phone [phone] Care Team Providers Care Cco & President Name Role Phone Ivette Celestin D.O. AUTM Seth Acosta M.D. AUTM [phone] Deangelo Baldwin D.O. AUTM [phone] Woo Cruz M.D. AUTM [phone] Cadence Huang M.D. AUTM [phone] Problems Active Problems Provider Date Disorder of protein metabolism AURA Mccallum Onset: 05/29/2015 Hypothyroidism AURA Mccallum Onset: 03/29/2016 Paroxysmal atrial fibrillation AURA Mccallum Onset: 05/29/2015 Nausea AURA Mccallum Onset: 03/29/2016 Lymphedema AURA Mccallum Onset: 06/20/2016 Anemia of chronic renal failure AURA Mccallum Onset: 06/20/2016 Low back pain AURA Mccallum Onset: 06/20/2016 Uncomplicated moderate persistent asthma Ivette ruth D.O. Onset: 11/17/2016 Edema Ivette Celsetin D.O. Onset: 2016 Anemia of chronic disease [...] mouth every day in the morning 90tabs Ainsh Duncan.ODoris 06/05/2020 Xarelto 20mg Tablets take one tablet by mouth every day 90tabs Anish Duncan.O. 01/11 /2021 Vitamin D (Ergocalciferol) 1.25mg (01995 Ut) Capsules Take 1 Capsule By Mouth Once A Week 4caps Amelie DuncanODoris 01/13/2020 Symbicort 160-4.5mcg/Act Aerosol 1 puffs twice a day, rinse out mouth afterwards. 10.200gm Amelie LanierODoris 02/22/2019 Tylenol Extra Strength 500mg Table ts 2 tablets by mouth every 8 hours as needed 30tabs Amelie LanierODoris 01/23/[id number] Bernard 1 tab by mouth three times a day with meals Unknown Losartan Potassium 100mg Tablets 1 by mouth every day 90tabs Amelie DuncanO. Loperamide HCL 2mg Capsules one capsule daily as needed for diarrhea Unknown Furosemide 40mg Tablets 2 by mouth every day 180tabs Amelie DuncanODoris Labetalol HCL 100mg Tablets Take One Tablet By Mouth Twice A Day 90tabs Amleie DuncanO. Albuterol Sulfate (2 .5mg/3ML) 0.083% Nebulizer [...] CPT Code Status Date Vaccine Lot # [id number] Given 10/05/2015 Pneumococcal Con jugate Vaccine 13 Valent For Intramuscular Use Vital Signs Date Vital Result Comment 02/11/2021 1:25pm BP Systolic 134 mmHg BP Diastolic 82 mmHg Height 57.6 inches 4'9.60" Weight 100.38 lb BMI (Body Mass Index) 21.3 kg/m2 Heart Rate 67 /min Respiratory Rate 18 /min Body Temperature 97.6 F O2 % BldC Oximetry 99 % [place] Body Weight 100 lb 02/04/2021 1:08pm BP Systolic 134 mmHg BP Diastolic 74 mmHg Height 57.6 inches 4'9.60" Weight 102.25 lb BMI (Body Mass Index) 21.7 kg/m2 Heart Rate 87 /min Respiratory Rate 18 /min Body Temperature 97.7 F O2 % BldC Oximetry 97 % [place] Body Weight 100 lb Results Test Acquired Date Facility Test Result H/L Range Note Coronavirus 2019 Nasopharygeal 01/22/2021 [facility] Outpa tient Testing (Registration) [address] [place] [address] [phone] Coronavirus 2019 Nasopharygeal ASSAY INFORMATIO <SEE N OTE> 1 Basic Metabolic Profile 10/09/2020 [facility] Outpatient T esting (Registration) [address] [place] [address] [phone] Glucose, Fasting 151 mg/dL High 70-100 Blood Urea Nitrogen 14 mg/dL Normal 7-18 Creatinine For GFR 0.66 mg/dL Normal 0.55-1.30 Glomerular Filtration Rate > 60.0 Normal >32 2 Sodium Level 138 mEq/L Normal 136-145 Potassium Serum 2.9 mEq/L Critical low 3.5-5.1 Chloride Level 101 mEq/L Normal 98-107 Carbon Dioxide Level 34 mEq/L High 21-32 Anion Gap 3 mEq/L Low 8-16 Calcium Level 8.6 mg/dL Low 8.8-10.2 Laboratory test finding 10/09/2020 [facility] Outpatient T esting (Registration) [address] [place] [address] [phone] Amylase 41 U/L Normal 25-115 Lipase 34 U/L Low 73-393 Cardiac Marker Panel 10/09/2020 [facility] Outpatient Test ing (Registration) [address] [place] [address] 54179 [phone] CPK Creatine Phosphokinase 98 U/L Normal 26-19 2 CK-MB Value Mass 1.6 NG/ML Normal <3.6 MB/CK Relative Index 1.63 Normal < Or =4 3 Troponin I < 0.02 NG/ML Normal < 0.10 4 CBC With Differential 10/09/2020 [facility] Outpatient Natalie paris (Registration) [address] [place] [address] 63379 [phone] White Blood Count 6.1 10 Normal 4.0-10.0 [...] 36.0-66.0 Lymph % 13.3 % Low 24.0-44.0 [place] % 5.4 % Normal 2.0-8.0 Eos % 2.0 % Normal 0.0-3.0 Baso % 0.7 % Normal 0.0-1.0 Immature Granulocyte % 0.3 % Normal 0-3.0 Nucleated Red Blood Cell % 0.0 % Normal 0-0 Neutrophils # 4.8 10 Normal 1.5-8.5 Lymph # 0.8 10 Low 1.5-5.0 [place] # 0.3 10 Normal 0.0-0.8 Eos # 0.1 10 Normal 0.0-0.5 Baso # 0.0 10 Normal 0.0-0.2 Ua W/ Reflex To Culture 10/09/2020 [facility] Outpatient T michael (Registration) [address] [place] [address] 64198 [phone] Appearance, Urine RFX HAZY Normal Clear Color, Urine RFX YELLOW Normal Yellow PH,Urine RFX 7.0 units Normal 5.0-9.0 Specific [place] Ur Auto RFX 1.009 Normal 1.002-1.035 Protein, [...] RFX SMALL High Negative Liver Profile 10/09/2020 [facility] Outpatient Testi wali (Registration) [address] [place] [address] [phone] Ast/Sgot 247 U/L High 7-37 Alt/SGPT 88 U/L High 12-78 Alkaline Phosphatase 201 U/L High 45-117 Bilirubin,Total 1.5 mg/dL High 0.2-1.0 Bilirubin,Direct 1.0 mg/dL High 0.0-0.2 Total Protein 7.8 GM/DL Normal 6.4-8.2 Albumin 3.3 GM/DL Normal 3.2-5.2 Albumin/Globulin Ratio 0.7 Low 1.2-2.2 1 ASSAY INFORMATION: Real Time RT-PCR NOTE: The COVID-19 assay has been cleared by the U.S. Food and Drug Administration under the Emergency Use Authorization (EUA). [facility] are designated as high complexity laboratories by the Clinical Laboratory Improvement Amendments of 1988(CLIA) and are qualified to perform this test. Not Detected 2 Units are mL/min/1.73 m2 Chronic Kidney Disease Staging per NKF: Stage I & II GFR >=60 Normal to Mildly Decreased Stage III GFR 30-59 Moderately Decreased Stage IV GFR 15-29 Severely Decreased Stage V GFR <15 Very Little GFR Left ESRD GFR <15 on STONE SPLITTER 3 DIAGNOSIS CRITERIA MMB ng/ml Relative Index (RI) NON-AMI < or = 5 N/A FLOWERS ZONE > 5 < or = 4 AMI > 5 > 4 4 Troponin I Reference Interva l for [facility] LOCI: 99th Percentile= 0.00-0.045 ng/ml Risk Stratification: <= 0.10 ng/ml Decreased Risk for Adverse Clinical Events. 0.10-1.50 ng/ml Increased Risk for Adv erse Clinical Events. Evaluation of additional criterion and/or repeat testing in 2-6 hours is suggested to rule out myocardial damage. >= 1.50 ng/ml Indicative of Myocardial Injury. Procedures Date Code Description Status 02/11/2021 85739 Office/Outpatient Established Lo w MDM 20-29 Min Completed 02/04/2021 85118 Office/Outpatient Established Mo d MDM 30-39 Min Completed 01/28/2021 21677 Office/Outpatient Established Mo d MDM 30-39 Min Completed 12/02/2020 10976 Office/Outpatient Established Lo w MDM 20-29 Min Completed 11/12/2020 82677 Office/Outpatient Established Mo d MDM 30-39 Min Completed 10/20/2020 90815 [facility] Cre W/I 7 Days Of DC, Comm W/I 2 Dys Completed 09/08/2020 67802 Office/Outpatient Established Mo d MDM 30-39 Min Completed Medical Devices Description No Information Available Encounters Type Date Location Provider Dx Diagnosis Office Visit 02/11/2021 1:20p [facility] Bhavik Celestin D.O. D62 Acute posthemorrhagic anemia D63.8 Anemia in other chronic dise ases classified elsewhere E03.9 Hypothyroidism, unspecified J45.40 Moderate persistent asthma, uncomplicated D51.9 Vitamin B12 deficiency anemi a, unspecified Office Visit 02/04/2021 1:10p [facility] Bhavik Celestin D.O. D62 Acute posthemorrhagic anemia D63.8 Anemia in other chronic dise ases classified elsewhere E03.9 Hypothyroidism, unspecified J45.40 Moderate persistent asthma, uncomplicated D51.9 Vitamin B12 deficiency anemi a, unspecified I48.0 Paroxysmal atrial fibrillati on I35.0 Nonrheumatic aortic (valve) stenosis I34.0 Nonrheumatic mitral (valve) insufficiency Office Visit 01/28/2021 2:40p [facility] Bhavik Celestin D.O. D63.8 Anemia in other chronic dise ases classified elsewhere E03.9 Hypothyroidism, unspecified J45.40 Moderate persistent asthma, uncomplicated D51.9 Vitamin B12 deficiency anemi a, unspecified Office Visit 12/02/2020 9:40a [facility] Amelie DuncanO. S51.011A Laceration without foreign b tariq of right elbow, init encntr M81.0 Age-related osteoporosis w/o current pathological fracture Office Visit 11/12/2020 10:00a [facility] AURA Mccallum I10 Essential (primary) hyperten joel E03.9 Hypothyroidism, unspecified I48.0 Paroxysmal atrial fibrillati on J45.40 Moderate persistent asthma, uncomplicated I35.0 Nonrheumatic aortic (valve) stenosis D63.8 Anemia in other chronic dise ases classified elsewhere R60.9 Edema, unspecified Office Visit 10/20/2020 1:40p [facility] AURA Mccallum K80.80 Other cholelithiasis without obstruction Office Visit 09/08/2020 10:00a [facility] Anish Duncan.O. 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 02/11/2021 D63.8 Anemia in other chronic diseases classified elsewhere Ivette Celestin, D.O. 02/11/2021 E03.9 Hypothyroidism, unspecified Ivette Celestin, D.O. 02/11/2021 J45.40 Moderate persistent asthma, unco mplicated Ivette Ventura, D.O. 02/11/2021 D51.9 Vitamin B12 deficiency anemia, u nspecified Ivette Ventura, D.O. 02/04/2021 D62 Acute posthemorrhagic anemia Anai johan Celestin, D.O. 02/04/2021 D63.8 Anemia in other chronic diseases classified elsewhere Ivette Celestin, D.O. 02/04/2021 E03.9 Hypothyroidism, unspecified Ivette Celestin, D.O. 02/04/2021 J45.40 Moderate persistent asthma, unco mplicated Ivette Ventura, D.O. 02/04/2021 D51.9 Vitamin B12 deficiency anemia, u nspecified Ivette Ventura, D.O. 02/04/2021 I48.0 Paroxysmal atrial fibrillation Armen ill Sabi, D.O. 02/04/2021 I35.0 Nonrheumatic aortic (valve) sten osis Ivette Celestin, D.O. 02/04/2021 I34.0 Nonrheumatic mitral (valve) insu fficiency Ivette Celestin, D.O. 01/28/2021 D63.8 Anemia in other chronic diseases classified elsewhere Ivette Celestin, D.O. 01/28/2021 E03.9 Hypothyroidism, unspecified Ivette Celestin, D.O. 01/28/2021 J45.40 Moderate persistent asthma, unco mplicated Ivette Ventura, D.O. 01/28/2021 D51.9 Vitamin B12 deficiency anemia, u nspecified Ivette Ventura, D.O. 12/02/2020 S51.011A Laceration without f oreign body of right elbow, initial encounter Ivette Celestin, D.O. 12/02/2020 M81.0 Age-related osteoporosis without current pathological fracture Ivette Celestin D.O. 11/12/2020 I10 Essential (primary) hypertension Mauri Anish Herrera, PA 11/12/2020 E03.9 Hypothyroidism, unspecified Wild Herrera, AURA 11/12/2020 I48.0 Paroxysmal atrial fibrillation S bettie Anish Herrera, PA 11/12/2020 J45.40 Moderate persistent asthma, unco mplicated Mauribennett Herrera, PA 11/12/2020 I35.0 Nonrheumatic aortic (valve) sten osis Mauri Anish Herrera, PA 11/12/2020 D63.8 Anemia in other chronic diseases classified elsewhere Mauri Herrera, AURA 11/12/2020 R60.9 Edema, unspecified Mauri hernandez, PA 10/20/2020 K80.80 Other cholelithiasis without obs truction Mauri Herrera, PA 09/08/2020 I10 Essential (primary) hypertension Ivette Celestin, D.O. 09/08/2020 E03.9 Hypothyroidism, unspecified Ivette Celestin, D.O. 09/08/2020 S81.812D Laceration without f oreign body, left lower leg, subsequent encounter Ivette Celestin D.O. 09/08/2020 I48.0 Paroxysmal atrial fibrillation Armen Celestin D.O. 09/08/2020 J45.40 Moderate persistent asthma, unco mplicated Ivette Ventura, D.O. 09/08/2020 I35.0 Nonrheumatic aortic (valve) sten osis Ivette Celestin, D.O. 09/08/2020 Z88.8 Allergy status to ot her drugs, medicaments and biological substances Ivette Celestin D.O. 09/08/2020 Z87.891 Personal history of nicotine dep endence Ivette Celestin D.O. 09/08/2020 Z79.899 Other detention (current) drug t herapy Ivette Celestin D.O. 09/08/2020 I34.0 Nonrheumatic mitral (valve) insu fficiency Ivette Celestin D.O. 09/08/2020 D63.8 Anemia in other chronic diseases classified elsewhere Ivette Celestin D.O. 09/08/2020 E87.6 Hypokalemia Ivette ortiz D.O. 09/08/2020 Z96.642 Presence of left artificial hip joint Ivette Celestin D.O. 09/08/2020 I25.10 Atherosclerotic hear t disease of [place] coronary artery without angina pectoris Ivette Celestin D.O. Plan of Treatment Future Appointment(s):* 02/22/2021 11:40 am - Ivette Celestin D.O. at [facility] Functional Status Description No Information Available Mental Status Description No Information Available Referrals Description No Information Available
--- OUTSIDE RECORDS SUMMARY | 2021-02-27 20:14 | CCD | Continuity of Care Document ---
Author Author Ita CELESTIN D.O. Organization Unknown Address [address] [facility] [address] [place] [address] Phone [phone] Care Team Providers Care Care Asst Name Role Phone Ivette Celestin D.O. AUTM Seth Acosta M.D. AUTM [phone] Deangelo Baldwin D.O. AUTM [phone] Woo Cruz M.D. AUTM [phone] Cadence Huang M.D. AUTM [phone] Problems Active Problems Provider Date Disorder of [...] Duncan.O. 01/11 /2021 Vitamin D (Ergocalciferol) 1.25mg (37534 Ut) Capsules Take 1 Capsule By Mouth Once A Week 4caps Amelie DuncanODoris 01/13/2020 Symbicort 160-4.5mcg/Act Aerosol 1 puffs twice a day, rinse out mouth afterwards. 10.200gm Amelie LanierODoris 02/22/2019 Tylenol Extra Strength 500mg Table ts 2 tablets by mouth every 8 hours as needed 30tabs Amelie LanierODoris 01/23/[id number] Bernard 1 tab by mouth [...] CPT Code Status Date Vaccine Lot # [id number] Given 10/05/2015 Pneumococcal Con jugate Vaccine 13 Valent For Intramuscular Use Vital Signs Date Vital Result Comment 02/22/2021 11:49am BP Systolic 134 mmHg BP Diastolic 74 mmHg Height 57.6 inches 4'9.60" Weight 101.12 lb BMI (Body Mass Index) 21.4 kg/m2 Heart Rate 86 /min Respiratory Rate 18 /min Body Temperature 96.9 F O2 % BldC Oximetry 95 % [place] Body Weight 100 lb 02/11/2021 1:25pm BP Systolic 134 mmHg BP Diastolic 82 mmHg Height 57.6 inches 4'9.60" Weight 100.38 lb BMI (Body Mass Index) 21.3 kg/m2 Heart Rate 67 /min Respiratory Rate 18 /min Body Temperature 97.6 F O2 % BldC Oximetry 99 % [place] Body Weight 100 lb Results Test Acquired Date Facility Test Result H/L Range Note Coronavirus 2019 Nasopharygeal 02/18/2021 [facility] Outpa tient Testing (Registration) [address] [place] [address] [phone] Coronavirus 2019 Nasopharygeal ASSAY INFORMATIO <SEE N OTE> 1 Coronavirus 2019 Nasopharygeal 01/22/2021 [facility] Outpa tient Testing (Registration) [address] [place] [address] [phone] Coronavirus 2019 Nasopharygeal ASSAY INFORMATIO <SEE N OTE> 2 Basic Metabolic Profile 10/09/2020 [facility] Outpatient T esting (Registration) [address] [place] [address]31 [phone] Glucose, Fasting 151 mg/dL High 70-100 Blood [...] mg/dL Low 8.8-10.2 Laboratory test finding 10/09/2020 [facility] Outpatient T esting (Registration) [address] [place] [address] [phone] Amylase 41 U/L Normal 25-115 Lipase 34 U/L Low 73-393 Cardiac Marker Panel 10/09/2020 [facility] Outpatient Test ing (Registration) [address] [place] [address]13 [phone] CPK Creatine Phosphokinase 98 U/L Normal 26-19 2 CK-MB Value Mass 1.6 NG/ML Normal <3.6 MB/CK Relative Index 1.63 Normal < Or =4 4 Troponin I < 0.02 NG/ML Normal < 0.10 5 CBC With Differential 10/09/2020 [facility] Outpatient Natalie ting (Registration) [address] [place] [address] [phone] White Blood Count 6.1 10 Normal 4.0-10.0 [...] 36.0-66.0 Lymph % 13.3 % Low 24.0-44.0 [place] % 5.4 % Normal 2.0-8.0 Eos % 2.0 % Normal 0.0-3.0 Baso % 0.7 % Normal 0.0-1.0 Immature Granulocyte % 0.3 % Normal 0-3.0 Nucleated Red Blood Cell % 0.0 % Normal 0-0 Neutrophils # 4.8 10 Normal 1.5-8.5 Lymph # 0.8 10 Low 1.5-5.0 [place] # 0.3 10 Normal 0.0-0.8 Eos # 0.1 10 Normal 0.0-0.5 Baso # 0.0 10 Normal 0.0-0.2 Ua W/ Reflex To Culture 10/09/2020 [facility] Outpatient T esting (Registration) [address] [place] [address] [phone] Appearance, Urine RFX HAZY Normal Clear Color, Urine RFX YELLOW Normal Yellow PH,Urine RFX 7.0 units Normal 5.0-9.0 Specific Mathias Ur Auto RFX 1.009 Normal 1.002-1.035 Protein, [...] RFX SMALL High Negative Liver Profile 10/09/2020 [facility] Outpatient Testi wali (Registration) [address] [place] [address] [phone] Ast/Sgot 247 U/L High 7-37 Alt/SGPT 88 [...] passenger travel. Testing and International Air Travel, cdc.gov/coronavirus/2019-ncov/travelers/appibhl-cll-keiqim.html 06/18/2020 NOTE: The COVID-19 assay is under Emergency Use Authorization (EUA) by the U.S. Food and Drug Administration. [facility] are designated as high complexity laboratories by the Clinical Laboratory Improvement Amendments of 1988 (CLIA) and are qualified to perform this test. Not Detected 2 ASSAY INFORMATION: Real Time RT-PCR NOTE: The COVID-19 assay has been cleared by the U.S. Food and Drug Administration under the Emergency Use Authorization (EUA). [facility] and [facility] are designated as high complexity laboratories by [...] Little GFR Left ESRD GFR <15 on BENCH CARPENTER 4 DIAGNOSIS CRITERIA MMB ng/ml Relative Index (RI) NON-AMI < or = 5 N/A FLOWERS ZONE > 5 < or = 4 AMI > 5 > 4 5 Troponin I Reference Interva l for AOTMP LOCI: 99th Percentile= 0.00-0.045 ng/ml Risk Stratification: <= 0.10 ng/ml Decreased Risk for Adverse Clinical Events. 0.10-1.50 ng/ml Increased Risk for Adv erse Clinical Events. Evaluation of additional criterion and/or repeat testing in 2-6 hours is suggested to rule out myocardial damage. >= 1.50 ng/ml Indicative of Myocardial Injury. Procedures Date Code Description Status 02/22/2021 44178 Office/Outpatient Established Lo w MDM 20-29 Min Completed 02/11/2021 29911 Office/Outpatient Established Lo w MDM 20-29 Min Completed 02/04/2021 26790 Office/Outpatient Established Mo d MDM 30-39 Min Completed 01/28/2021 59833 Office/Outpatient Established Mo d MDM 30-39 Min Completed 12/02/2020 91444 Office/Outpatient Established Lo w MDM 20-29 Min Completed 11/12/2020 29033 Office/Outpatient Established Mo d MDM 30-39 Min Completed 10/20/2020 55357 [facility] Cre W/I 7 Days Of DC, Comm W/I 2 Dys Completed 09/08/2020 78870 Office/Outpatient Established Mo d MDM 30-39 Min Completed Medical Devices Description No Information Available Encounters Type Date Location Provider Dx Diagnosis Office Visit 02/22/2021 11:40a [facility] Anish Duncan.O. D62 Acute posthemorrhagic anemia D63.8 Anemia in other chronic dise ases classified elsewhere E03.9 Hypothyroidism, unspecified J45.40 Moderate persistent asthma, uncomplicated D51.9 Vitamin B12 deficiency anemi a, unspecified I48.0 Paroxysmal atrial fibrillati on I35.0 Nonrheumatic aortic (valve) stenosis I34.0 Nonrheumatic mitral (valve) insufficiency Office Visit 02/11/2021 1:20p [facility] Anish Duncan.O. D62 Acute posthemorrhagic anemia D63.8 Anemia in other chronic dise ases classified elsewhere E03.9 Hypothyroidism, unspecified J45.40 Moderate persistent asthma, uncomplicated D51.9 Vitamin B12 deficiency anemi a, unspecified Office Visit 02/04/2021 1:10p [facility] Anish Duncan.O. D62 Acute posthemorrhagic anemia D63.8 Anemia in other chronic dise ases classified elsewhere E03.9 Hypothyroidism, unspecified J45.40 Moderate persistent asthma, uncomplicated D51.9 Vitamin B12 deficiency anemi a, unspecified I48.0 Paroxysmal atrial fibrillati on I35.0 Nonrheumatic aortic (valve) stenosis I34.0 Nonrheumatic mitral (valve) insufficiency Office Visit 01/28/2021 2:40p [facility] Anish Duncan.O. D63.8 Anemia in other chronic dise ases classified elsewhere E03.9 Hypothyroidism, unspecified J45.40 Moderate persistent asthma, uncomplicated D51.9 Vitamin B12 deficiency anemi a, unspecified Office Visit 12/02/2020 9:40a [facility] Anish Duncan.O. S51.011A Laceration without foreign b tariq of right elbow, init encntr M81.0 Age-related osteoporosis w/o current pathological fracture Office Visit 11/12/2020 10:00a [facility] AURA Mccallum I10 Essential (primary) hyperten joel E03.9 Hypothyroidism, unspecified I48.0 Paroxysmal atrial fibrillati on J45.40 Moderate persistent asthma, uncomplicated I35.0 Nonrheumatic aortic (valve) stenosis D63.8 Anemia in other chronic dise ases classified elsewhere R60.9 Edema, unspecified Office Visit 10/20/2020 1:40p [facility] AURA Mccallum K80.80 Other cholelithiasis without obstruction Office Visit 09/08/2020 10:00a [facility] Ivette Celestin D.O. I10 Essential (primary) hyperten joel E03.9 Hypothyroidism, unspecified S81.812D Laceration without foreign b tariq, left lower leg, subs encntr I48.0 Paroxysmal atrial fibrillati on J45.40 Moderate persistent asthma, uncomplicated I35.0 Nonrheumatic aortic (valve) stenosis Z88.8 Allergy status to other drug /meds/biol subst Z87.891 Personal history of nicotine dependence Z79.899 Other intermediate (current) dr moffett therapy I34.0 Nonrheumatic mitral [...] Herrera, AURA 09/08/2020 I10 Essential (primary) hypertension vIette Celestin, D.O. 09/08/2020 E03.9 Hypothyroidism, unspecified Ivette [...] endence Ivette Celestin D.O. 09/08/2020 Z79.899 Other buttermaker (current) drug t herapy Ivette Celestin D.O. 09/08/2020 I34.0 Nonrheumatic mitral (valve) insu fficiency Ivette Celestin D.O. 09/08/2020 D63.8 Anemia in other chronic diseases classified elsewhere Ivette Celestin D.O. 09/08/2020 E87.6 Hypokalemia Ivtete ortiz D.O. 09/08/2020 Z96.642 Presence of left artificial hip joint Ivette Celestin D.O. 09/08/2020 I25.10 Atherosclerotic hear t disease of [place] coronary artery without angina pectoris Ivette Celestin D.O. Plan of Treatment Future Appointment(s):* 03/02/2021 11:30 am - Ivette Celestin D.O. at [facility] Functional Status Description No Information Available Mental Status Description No Information Available Referrals Description No Information Available
--- OUTSIDE RECORDS SUMMARY | 2021-02-27 20:14 | CCD | Continuity of Care Document ---
Author Author Ita CELESTIN D.O. Organization Unknown Address [address] [facility] [address] [place] [address] Phone [phone] Care Team Providers Care Benzol Still Operator Name Role Phone Ivette Celestin D.O. AUTM [phone] Seth Acosta M.D. AUTM [phone] Deangelo Baldwin D.O. AUTM [phone] Woo Cruz M.D. AUTM [phone] Cadence Huang M.D. AUTM [phone] Problems Active Problems Provider Date Disorder of [...] Duncan.O. 01/11 /2021 Vitamin D (Ergocalciferol) 1.25mg (38626 Ut) Capsules Take 1 Capsule By Mouth Once A Week 4caps Ivette Celestin D.O. 01/13/2020 Symbicort 160-4.5mcg/Act Aerosol 1 puffs twice a day, rinse out mouth afterwards. 10.200gm Amelie LanierODoris 02/22/2019 Tylenol Extra Strength 500mg Table ts 2 tablets by mouth every 8 hours as needed 30tabs Amelie LanierODoris 01/23/[id number] Bernard 1 tab by mouth three times a day with meals Unknown Losartan Potassium 100mg Tablets 1 by mouth every day 90tabs Amelie DuncanO. Loperamide HCL 2mg Capsules one capsule daily as needed for diarrhea Unknown Furosemide 40mg Tablets 2 by mouth every day 180tabs Amelie DuncanODoris Labetalol HCL 100mg Tablets Take One Tablet By Mouth Twice A Day 90tabs Amelie DuncanODoris Albuterol Sulfate (2 .5mg/3ML) 0.083% Nebulizer 1 vial by nebulizer every 4 hour as needed (30 days supply) Unknown Clobetasol Propionate 0.05% Cream Apply Thin Layer Topically To Affected Areas Two Times A Day as Needed For Flare Ups 30units Ivette Celestin D.O. Cyanocobalamin 1000mcg/ML Solution Inject 1ML Once A Month 3units Amelie DuncanODoris Ventolin HFA 108(90Base) mcg/Act A erosol 2 puffs every 4 hours shortness of breath or wheezing Unknown History Medications Sucralfate 1GM/10ML Suspension 10 milliliters by mouth four times daily before meals as needed 420ml D63.8 Amelie DuncanODoris 02/04/2021 - 02/11/2021 Hydrocodone-Acetaminophen 5-325mg Tablets 1 tablets by mouth every 6 hours as needed 28tabs S81.812D Ivette Celestin D.O. 08/18/2020 - 10/13/2020 Immunizations CPT Code Status Date Vaccine Lot # [id number] Given 10/05/2015 Pneumococcal Con jugate Vaccine 13 Valent For Intramuscular Use Vital Signs Date Vital Result Comment 02/11/2021 1:25pm BP Systolic 134 mmHg BP Diastolic 82 mmHg Height 57.6 inches 4'9.60" Weight 100.38 lb BMI (Body Mass Index) 21.3 kg/m2 Heart Rate 67 /min Respiratory Rate 18 /min Body Temperature 97.6 F O2 % BldC Oximetry 99 % [place] Body Weight 100 lb 02/04/2021 1:08pm BP Systolic 134 mmHg BP Diastolic 74 mmHg Height 57.6 inches 4'9.60" Weight 102.25 lb BMI (Body Mass Index) 21.7 kg/m2 Heart Rate 87 /min Respiratory Rate 18 /min Body Temperature 97.7 F O2 % BldC Oximetry 97 % [place] Body Weight 100 lb Results Test Acquired Date Facility Test Result H/L Range Note Coronavirus 2019 Nasopharygeal 01/22/2021 [facility] Outpa tient Testing (Registration) [address] [place] [address]4850 [phone] Coronavirus 2019 Nasopharygeal ASSAY INFORMATIO <SEE N OTE> 1 Basic Metabolic Profile 10/09/2020 [facility] Outpatient T esting (Registration) [address] [place] [address]22 [phone] Glucose, Fasting 151 mg/dL High 70-100 Blood [...] mg/dL Low 8.8-10.2 Laboratory test finding 10/09/2020 [facility] Outpatient T esting (Registration) [address] [place] [address] [phone] Amylase 41 U/L Normal 25-115 Lipase 34 U/L Low 73-393 Cardiac Marker Panel 10/09/2020 [facility] Outpatient Test ing (Registration) [address] [place] [address] 68897 [phone] CPK Creatine Phosphokinase 98 U/L Normal 26-19 2 CK-MB Value Mass 1.6 NG/ML Normal <3.6 MB/CK Relative Index 1.63 Normal < Or =4 3 Troponin I < 0.02 NG/ML Normal < 0.10 4 CBC With Differential 10/09/2020 [facility] Outpatient Natalie ting (Registration) [address] [place] [address]0172 [phone] White Blood Count 6.1 10 Normal 4.0-10.0 [...] 36.0-66.0 Lymph % 13.3 % Low 24.0-44.0 [place] % 5.4 % Normal 2.0-8.0 Eos % 2.0 % Normal 0.0-3.0 Baso % 0.7 % Normal 0.0-1.0 Immature Granulocyte % 0.3 % Normal 0-3.0 Nucleated Red Blood Cell % 0.0 % Normal 0-0 Neutrophils # 4.8 10 Normal 1.5-8.5 Lymph # 0.8 10 Low 1.5-5.0 [place] # 0.3 10 Normal 0.0-0.8 Eos # 0.1 10 Normal 0.0-0.5 Baso # 0.0 10 Normal 0.0-0.2 Ua W/ Reflex To Culture 10/09/2020 [facility] Outpatient T esting (Registration) [address] [place] [address] 47910 [phone] Appearance, Urine RFX HAZY Normal Clear Color, Urine RFX YELLOW Normal Yellow PH,Urine RFX 7.0 units Normal 5.0-9.0 Specific [place] Ur Auto RFX 1.009 Normal 1.002-1.035 Protein, [...] RFX SMALL High Negative Liver Profile 10/09/2020 [facility] Outpatient Testi (Registration) [address] [place], [place] [id number] [phone] Ast/Sgot 247 U/L High 7-37 Alt/SGPT 88 [...] Administration under the Emergency Use Authorization (EUA). [facility] are designated as high complexity laboratories by [...] Little GFR Left ESRD GFR <15 on PULP COOKER 3 DIAGNOSIS CRITERIA MMB ng/ml Relative Index (RI) NON-AMI < or = 5 N/A FLOWERS ZONE > 5 < or = 4 AMI > 5 > 4 4 Troponin I Reference Interva l for [place] LOCI: 99th Percentile= 0.00-0.045 ng/ml Risk Stratification: <= 0.10 ng/ml Decreased Risk for Adverse Clinical Events. 0.10-1.50 ng/ml Increased Risk for Adv erse Clinical Events. Evaluation of additional criterion and/or repeat testing in 2-6 hours is suggested to rule out myocardial damage. >= 1.50 ng/ml Indicative of Myocardial Injury. Procedures Date Code Description Status 02/11/2021 86544 Office/Outpatient Established Lo w MDM 20-29 Min Completed 02/04/2021 02668 Office/Outpatient Established Mo d MDM 30-39 Min Completed 01/28/2021 31848 Office/Outpatient Established Mo d MDM 30-39 Min Completed 12/02/2020 12877 Office/Outpatient Established Lo w MDM 20-29 Min Completed 11/12/2020 39456 Office/Outpatient Established Mo d MDM 30-39 Min Completed 10/20/2020 51135 [facility] Cre W/I 7 Days Of DC, Comm W/I 2 Dys Completed 09/08/2020 82510 Office/Outpatient Established Mo d MDM 30-39 Min Completed 08/18/2020 87979 Office/Outpatient Established Lo w MDM 20-29 Min Completed Medical Devices Description No Information Available Encounters Type Date Location Provider Dx Diagnosis Office Visit 02/11/2021 1:20p [facility] Bhavik Celestin D.O. D62 Acute posthemorrhagic anemia D63.8 Anemia in other chronic dise ases classified elsewhere E03.9 Hypothyroidism, unspecified J45.40 Moderate persistent asthma, uncomplicated D51.9 Vitamin B12 deficiency anemi a, unspecified Office Visit 02/04/2021 1:10p [facility] Amelie ChapaO. D62 Acute posthemorrhagic anemia D63.8 Anemia in other chronic dise ases classified elsewhere E03.9 Hypothyroidism, unspecified J45.40 Moderate persistent asthma, uncomplicated D51.9 Vitamin B12 deficiency anemi a, unspecified I48.0 Paroxysmal atrial fibrillati on I35.0 Nonrheumatic aortic (valve) stenosis I34.0 Nonrheumatic mitral (valve) insufficiency Office Visit 01/28/2021 2:40p [facility] Ivette Celestin D.O. D63.8 Anemia in other chronic dise ases classified elsewhere E03.9 Hypothyroidism, unspecified J45.40 Moderate persistent asthma, uncomplicated D51.9 Vitamin B12 deficiency anemi a, unspecified Office Visit 12/02/2020 9:40a [facility] Ivette Celestin D.O. S51.011A Laceration without foreign b tariq of right elbow, init encntr M81.0 Age-related osteoporosis w/o current pathological fracture Office Visit 11/12/2020 10:00a [facility] AURA Mccallum I10 Essential (primary) hyperten joel E03.9 Hypothyroidism, unspecified I48.0 Paroxysmal atrial fibrillati on J45.40 Moderate persistent asthma, uncomplicated I35.0 Nonrheumatic aortic (valve) stenosis D63.8 Anemia in other chronic dise ases classified elsewhere R60.9 Edema, unspecified Office Visit 10/20/2020 1:40p [facility] AURA Mccallum K80.80 Other cholelithiasis without obstruction Office Visit 09/08/2020 10:00a [facility] Ivette Celestin D.O. I10 Essential (primary) hyperten joel E03.9 Hypothyroidism, unspecified S81.812D Laceration without foreign b tariq, left lower leg, subs encntr I48.0 Paroxysmal atrial fibrillati on J45.40 Moderate persistent asthma, uncomplicated I35.0 Nonrheumatic aortic (valve) stenosis Z88.8 Allergy status to other drug /meds/biol subst Z87.891 Personal history of nicotine dependence Z79.899 Other fci (current) dr ug therapy I34.0 Nonrheumatic mitral (valve) insufficiency D63.8 Anemia in other chronic dise ases classified elsewhere E87.6 Hypokalemia Z96.642 Presence of left artificial hip joint 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 Office Visit 08/18/2020 1:40p [facility] Amelie DuncanODoris S81.812D Laceration without foreign b tariq, left lower leg, subs encntr I10 Essential (primary) hyperten joel Assessments Date Code Description Provider 02/11/2021 D62 Acute posthemorrhagic anemia Anai Celestin D.O. 02/11/2021 D63.8 Anemia in other chronic diseases classified elsewhere Anish Duncan.ODoris 02/11/2021 E03.9 Hypothyroidism, unspecified Ivette Celestin D.O. 02/11/2021 J45.40 Moderate persistent asthma, unco mplicated Ivette Ventura D.O. 02/11/2021 D51.9 Vitamin B12 deficiency anemia, u nspecified Anish Singletary.O. 02/04/2021 D62 Acute posthemorrhagic anemia Anai Celestin D.O. 02/04/2021 D63.8 Anemia in other chronic diseases classified elsewhere Anish Duncan.O. 02/04/2021 E03.9 Hypothyroidism, unspecified Ivette Celestin D.O. 02/04/2021 J45.40 Moderate persistent asthma, unco mplicated Ivette Ventura D.O. 02/04/2021 D51.9 Vitamin B12 deficiency anemia, u nspecified Ivette Ventura D.O. 02/04/2021 I48.0 Paroxysmal atrial fibrillation Anish Frederick.ODoris 02/04/2021 I35.0 Nonrheumatic aortic (valve) sten osis Ivette Celestin D.O. 02/04/2021 I34.0 Nonrheumatic mitral (valve) insu fficiency Ivette Celestin D.O. 01/28/2021 D63.8 Anemia in other chronic diseases classified elsewhere Ivette Celestin D.O. 01/28/2021 E03.9 Hypothyroidism, unspecified Ivette Celestin, D.O. 01/28/2021 J45.40 Moderate persistent asthma, unco mplicated Ivette Ventura, D.O. 01/28/2021 D51.9 Vitamin B12 deficiency anemia, u nspecified Ivette Ventura D.O. 12/02/2020 S51.011A Laceration without f oreign body of right elbow, initial encounter Ivette Celestin D.O. 12/02/2020 M81.0 Age-related osteoporosis without current pathological fracture Ivette Celestin D.O. 11/12/2020 I10 Essential (primary) hypertension Mauri Herrera, AURA 11/12/2020 E03.9 Hypothyroidism, unspecified Wild Herrera, AURA 11/12/2020 I48.0 Paroxysmal atrial fibrillation S bettie Herrera, AURA 11/12/2020 J45.40 Moderate persistent asthma, unco mplicated Mauri Herrera, AURA 11/12/2020 I35.0 Nonrheumatic aortic (valve) sten osis Mauri Herrera, AURA 11/12/2020 D63.8 Anemia in other chronic diseases classified elsewhere Mauri Herrera, AURA 11/12/2020 R60.9 Edema, unspecified Mauri hernandez, AURA 10/20/2020 K80.80 Other cholelithiasis without obs truction AURA Mccallum 09/08/2020 I10 Essential (primary) hypertension Ivette Celestin, D.O. 09/08/2020 E03.9 Hypothyroidism, unspecified Ivette Celestin, D.O. 09/08/2020 S81.812D Laceration without f oreign body, left lower leg, subsequent encounter Ivette Celestin D.O. 09/08/2020 I48.0 Paroxysmal atrial fibrillation Armen Celestin D.O. 09/08/2020 J45.40 Moderate persistent asthma, unco mplicated Ivette Ventura D.O. 09/08/2020 I35.0 Nonrheumatic aortic (valve) sten osis Amelie DuncanODoris 09/08/2020 Z88.8 Allergy status to ot her drugs, medicaments and biological substances Anish Duncan.ODoris 09/08/2020 Z87.891 Personal history of nicotine dep endence Amelie DuncanODoris 09/08/2020 Z79.899 Other fci (current) drug t herapy Amelie DuncanODoris 09/08/2020 I34.0 Nonrheumatic mitral (valve) insu fficiency Amelie DuncanODoris 09/08/2020 D63.8 Anemia in other chronic diseases classified elsewhere Amelie DuncanODoris 09/08/2020 E87.6 Hypokalemia Amelie BarrosoODoris 09/08/2020 Z96.642 Presence of left artificial hip joint Amelie DuncanODoris 09/08/2020 I25.10 Atherosclerotic hear t disease of [place] coronary artery without angina pectoris Ivette Celestin D.O. 08/18/2020 S81.812D Laceration without f oreign body, left lower leg, subsequent encounter Ivetet Celestin D.O. 08/18/2020 I10 Essential (primary) hypertension Ivette Celestin D.O. Plan of Treatment Future Appointment(s):* 02/22/2021 11:40 am - Ivette Celestin D.O. at [facility] Functional Status Description No Information Available Mental Status Description No Information Available Referrals Description No Information Available
--- OUTSIDE RECORDS SUMMARY | 2021-02-27 20:14 | CCD | Continuity of Care Document ---
Author Author Ita CELESTIN D.O. Organization Unknown Address [address] [facility] [address] [place] [address] Phone [phone] Care Team Providers Care Chinese Herbalist Name Role Phone Ivette Celestin D.O. AUTM Seth Acosta M.D. AUTM [phone] Deangelo Baldwin D.O. AUTM [phone] Woo Cruz M.D. AUTM [phone] Cadence Huang M.D. AUTM [phone] Problems Active Problems Provider Date Disorder of [...] Duncan.O. 01/11 /2021 Vitamin D (Ergocalciferol) 1.25mg (54985 Ut) Capsules Take 1 Capsule By Mouth Once A Week 4caps Amelie DuncanODoris 01/13/2020 Symbicort 160-4.5mcg/Act Aerosol 1 puffs twice a day, rinse out mouth afterwards. 10.200gm Amelie LanierODoris 02/22/2019 Tylenol Extra Strength 500mg Table ts 2 tablets by mouth every 8 hours as needed 30tabs Amelie LanierODoris 01/23/[id number] Bernard 1 tab by mouth [...] CPT Code Status Date Vaccine Lot # 66062 Given 10/05/2015 Pneumococcal Con jugate Vaccine 13 Valent For Intramuscular Use Vital Signs Date Vital Result Comment 02/22/2021 11:49am BP Systolic 134 mmHg BP Diastolic 74 mmHg Height 57.6 inches 4'9.60" Weight 101.12 lb BMI (Body Mass Index) 21.4 kg/m2 Heart Rate 86 /min Respiratory Rate 18 /min Body Temperature 96.9 F O2 % BldC Oximetry 95 % [place] Body Weight 100 lb 02/11/2021 1:25pm BP Systolic 134 mmHg BP Diastolic 82 mmHg Height 57.6 inches 4'9.60" Weight 100.38 lb BMI (Body Mass Index) 21.3 kg/m2 Heart Rate 67 /min Respiratory Rate 18 /min Body Temperature 97.6 F O2 % BldC Oximetry 99 % [place] Body Weight 100 lb Results Test Acquired Date Facility Test Result H/L Range Note Coronavirus 2019 Nasopharygeal 02/18/2021 [facility] Outpa tient Testing (Registration) [address] [place] [address] 76061 [phone] Coronavirus 2019 Nasopharygeal ASSAY INFORMATIO <SEE N OTE> 1 Coronavirus 2019 Nasopharygeal 01/22/2021 [facility] Outpa tient Testing (Registration) [address] [place] [address] 80177 [phone] Coronavirus 2019 Nasopharygeal ASSAY INFORMATIO <SEE N OTE> 2 Basic Metabolic Profile 10/09/2020 [facility] Outpatient T esting (Registration) [address] [place] [address] 70808 [phone] Glucose, Fasting 151 mg/dL High 70-100 Blood [...] mg/dL Low 8.8-10.2 Laboratory test finding 10/09/2020 [facility] Outpatient T esting (Registration) [address] [place] [address] 96605 [phone] Amylase 41 U/L Normal 25-115 Lipase 34 U/L Low 73-393 Cardiac Marker Panel 10/09/2020 [facility] Outpatient Test ing (Registration) [address] [place] [address] 65243 [phone] CPK Creatine Phosphokinase 98 U/L Normal 26-19 2 CK-MB Value Mass 1.6 NG/ML Normal <3.6 MB/CK Relative Index 1.63 Normal < Or =4 4 Troponin I < 0.02 NG/ML Normal < 0.10 5 CBC With Differential 10/09/2020 [facility] Outpatient Natalie ting (Registration) [address] [place] [address] 14658 [phone] White Blood Count 6.1 10 Normal 4.0-10.0 [...] 36.0-66.0 Lymph % 13.3 % Low 24.0-44.0 Larue % 5.4 % Normal 2.0-8.0 Eos % 2.0 % Normal 0.0-3.0 Baso % 0.7 % Normal 0.0-1.0 Immature Granulocyte % 0.3 % Normal 0-3.0 Nucleated Red Blood Cell % 0.0 % Normal 0-0 Neutrophils # 4.8 10 Normal 1.5-8.5 Lymph # 0.8 10 Low 1.5-5.0 Larue # 0.3 10 Normal 0.0-0.8 Eos # 0.1 10 Normal 0.0-0.5 Baso # 0.0 10 Normal 0.0-0.2 Ua W/ Reflex To Culture 10/09/2020 [facility] Outpatient T esting (Registration) [address] [place] [address] [phone] Appearance, Urine RFX HAZY Normal Clear Color, Urine RFX YELLOW Normal Yellow PH,Urine RFX 7.0 units Normal 5.0-9.0 Specific [place] Auto RFX 1.009 Normal 1.002-1.035 Protein, [...] RFX SMALL High Negative Liver Profile 10/09/2020 [facility] Outpatient Testi wali (Registration) [address] [place] [address] [phone] Ast/Sgot 247 U/L High 7-37 Alt/SGPT 88 [...] passenger travel. Testing and International Air Travel, cdc.gov/coronavirus/2019-ncov/travelers/ebulqgl-qad-ahzzxd.html 06/18/2020 NOTE: The COVID-19 assay is under Emergency Use Authorization (EUA) by the U.S. Food and Drug Administration. [facility] and [facility] are designated as high complexity laboratories by the Clinical Laboratory Improvement Amendments of 1988 (CLIA) and are qualified to perform this test. Not Detected 2 ASSAY INFORMATION: Real Time RT-PCR NOTE: The COVID-19 assay has been cleared by the U.S. Food and Drug Administration under the Emergency Use Authorization (EUA). [facility] and [facility] are designated as high complexity laboratories by [...] Little GFR Left ESRD GFR <15 on NUMERICAL CONTROL MACHINE TOOL OPERATOR 4 DIAGNOSIS CRITERIA MMB ng/ml Relative Index (RI) NON-AMI < or = 5 N/A FLOWERS ZONE > 5 < or = 4 AMI > 5 > 4 5 Troponin I Reference Interva l for Smart Device Media LOCI: 99th Percentile= 0.00-0.045 ng/ml Risk Stratification: <= 0.10 ng/ml Decreased Risk for Adverse Clinical Events. 0.10-1.50 ng/ml Increased Risk for Adv erse Clinical Events. Evaluation of additional criterion and/or repeat testing in 2-6 hours is suggested to rule out myocardial damage. >= 1.50 ng/ml Indicative of Myocardial Injury. Procedures Date Code Description Status 02/22/2021 55777 Office/Outpatient Established Lo w MDM 20-29 Min Completed 02/11/2021 82085 Office/Outpatient Established Lo w MDM 20-29 Min Completed 02/04/2021 39868 Office/Outpatient Established Mo d MDM 30-39 Min Completed 01/28/2021 28661 Office/Outpatient Established Mo d MDM 30-39 Min Completed 12/02/2020 55931 Office/Outpatient Established Lo w MDM 20-29 Min Completed 11/12/2020 88110 Office/Outpatient Established Mo d MDM 30-39 Min Completed 10/20/2020 93440 [facility]patrick Cre W/I 7 Days Of DC, Comm W/I 2 Dys Completed 09/08/2020 21491 Office/Outpatient Established Mo d MDM 30-39 Min Completed Medical Devices Description No Information Available Encounters Type Date Location Provider Dx Diagnosis Office Visit 02/22/2021 11:40a [facility] Anish Duncan.O. D62 Acute posthemorrhagic anemia D63.8 Anemia in other chronic dise ases classified elsewhere E03.9 Hypothyroidism, unspecified J45.40 Moderate persistent asthma, uncomplicated D51.9 Vitamin B12 deficiency anemi a, unspecified I48.0 Paroxysmal atrial fibrillati on I35.0 Nonrheumatic aortic (valve) stenosis I34.0 Nonrheumatic mitral (valve) insufficiency Office Visit 02/11/2021 1:20p [facility] Anish Duncan.O. D62 Acute posthemorrhagic anemia D63.8 Anemia in other chronic dise ases classified elsewhere E03.9 Hypothyroidism, unspecified J45.40 Moderate persistent asthma, uncomplicated D51.9 Vitamin B12 deficiency anemi a, unspecified Office Visit 02/04/2021 1:10p [facility] Anish Duncan.O. D62 Acute posthemorrhagic anemia D63.8 Anemia in other chronic dise ases classified elsewhere E03.9 Hypothyroidism, unspecified J45.40 Moderate persistent asthma, uncomplicated D51.9 Vitamin B12 deficiency anemi a, unspecified I48.0 Paroxysmal atrial fibrillati on I35.0 Nonrheumatic aortic (valve) stenosis I34.0 Nonrheumatic mitral (valve) insufficiency Office Visit 01/28/2021 2:40p [facility] Anish Duncan.O. D63.8 Anemia in other chronic dise ases classified elsewhere E03.9 Hypothyroidism, unspecified J45.40 Moderate persistent asthma, uncomplicated D51.9 Vitamin B12 deficiency anemi a, unspecified Office Visit 12/02/2020 9:40a [facility] Anish Duncan.O. S51.011A Laceration without foreign b tariq of right elbow, init encntr M81.0 Age-related osteoporosis w/o current pathological fracture Office Visit 11/12/2020 10:00a [facility] AURA Mccallum I10 Essential (primary) hyperten joel E03.9 Hypothyroidism, unspecified I48.0 Paroxysmal atrial fibrillati on J45.40 Moderate persistent asthma, uncomplicated I35.0 Nonrheumatic aortic (valve) stenosis D63.8 Anemia in other chronic dise ases classified elsewhere R60.9 Edema, unspecified Office Visit 10/20/2020 1:40p [facility] AURA Mccallum K80.80 Other cholelithiasis without obstruction Office Visit 09/08/2020 10:00a [facility] Ivette Celestin D.O. I10 Essential (primary) hyperten joel E03.9 Hypothyroidism, unspecified S81.812D Laceration without foreign b tariq, left lower leg, subs encntr I48.0 Paroxysmal atrial fibrillati on J45.40 Moderate persistent asthma, uncomplicated I35.0 Nonrheumatic aortic (valve) stenosis Z88.8 Allergy status to other drug /meds/biol subst Z87.891 Personal history of nicotine dependence Z79.899 Other mcfp (current) dr moffett therapy I34.0 Nonrheumatic mitral [...] D.O. 11/12/2020 I10 Essential (primary) hypertension Mauri Hererra, AURA 11/12/2020 E03.9 Hypothyroidism, unspecified Wild Herrera, [...] endence Ivette Celestin D.O. 09/08/2020 Z79.899 Other terminal make up operator (current) drug t herapy Ivette Celestin D.O. 09/08/2020 I34.0 Nonrheumatic mitral (valve) insu fficiency Ivette Celestin D.O. 09/08/2020 D63.8 Anemia in other chronic diseases classified elsewhere Ivette Celestin D.O. 09/08/2020 E87.6 Hypokalemia Ivette ortiz D.O. 09/08/2020 Z96.642 Presence of left artificial hip joint Ivette Celestin D.O. 09/08/2020 I25.10 Atherosclerotic hear t disease of [place] coronary artery without angina pectoris Ivette Celestin D.O. Plan of Treatment Future Appointment(s):* 03/02/2021 11:30 am - Ivette Celestin D.O. at [facility] Functional Status Description No Information Available Mental Status Description No Information Available Referrals Description No Information Available
--- OUTSIDE RECORDS SUMMARY | 2021-02-27 20:15 | CCD | Continuity of Care Document ---
Author Author Ita CELESTIN D.O. Organization Unknown Address [address] [facility] [address] [place] [address] Phone [phone] Care Team Providers Care Neon Molder Name Role Phone Ivette Celestin D.O. AUTM Seth Acosta M.D. AUTM [phone] Deangelo Baldwin D.O. AUTM [phone] Woo Cruz M.D. AUTM [phone] Cadence Huang M.D. AUTM [phone] Problems Active Problems Provider Date Disorder of [...] Celestin D.O. Onset: 11/17 Severe protein-calorie malnutrition ([place]: less than 60% of standard weight) Ivette Celestin D.O. Onset: [...] Seat Belt/Car Seat Always uses seat belt Allergies, Adverse Reactions, Alerts Active Allergies Criticality Reaction | Severity Comments Date Atorvastatin Unable to assess criticality | Mild 11/06/2014 Rosuvastatin Unable to assess criticality | Mild 08/01/2012 Inactive Allergies NKDA Unable to assess criticality 12/08/2015 Medications Active Medications SIG Qnty Indications Ordering Provide r Date Omeprazole 40mg Capsules DR 1 by mouth every day 90caps D63.8 Amelie DuncanODoris 02/04 Sucralfate 1GM/10ML Suspension 10 milliliters by mouth four times daily before meals as needed 420ml D63.8 Amelie DuncanODoris 02/04/2021 Levothyroxine Sodium 75mcg Tablets 1 tab by mouth every morning 90tabs E03.9 Crow Duncan 01/28/2021 Potassium Chloride Naz ER 10Meq Tablets ER 1 by mouth every day in the morning 90tabs Amelie DuncanODoris 06/05/2020 Xarelto 20mg Tablets take one tablet by mouth every day 90tabs Amelie DuncanO. 05/11 Vitamin D (Ergocalciferol) 1.25mg (18833 Ut) Capsules Take 1 Capsule By Mouth Once A Week 4caps Amelie DuncanODoris 01/13/2020 Symbicort 160-4.5mcg/Act Aerosol 1 puffs twice a day, rinse out mouth afterwards. 10.200gm Amelie LanierODoris 02/22/2019 Tylenol Extra Strength 500mg Table ts 2 tablets by mouth every 8 hours as needed 30tabs Amelie LanierO. 01/23/[id number] Part 1 tab by mouth three times a day with meals Unknown Losartan Potassium 100mg Tablets 1 by mouth every day 90tabs Amelie DuncanO. Loperamide HCL 2mg Capsules one capsule daily as needed for diarrhea Unknown Furosemide 40mg Tablets 2 by mouth every day 180tabs Amelie DuncanO. Labetalol HCL 100mg Tablets Take One Tablet By Mouth Twice A Day 90tabs Anish Duncan.O. Albuterol Sulfate (2 .5mg/3ML) 0.083% Nebulizer 1 [...] of breath or wheezing Unknown History Medications Hydrocodone-Acetaminophen 5-325mg Tablets 1 tablets by mouth every 6 hours as needed 28tabs S81.812D Amelie DuncanO. 08/18/2020 - 10/13/2020 Immunizations CPT Code Status Date Vaccine Lot # [id number] Given 10/05/2015 Pneumococcal Con jugate Vaccine 13 Valent For Intramuscular Use Vital Signs Date Vital Result Comment 02/04/2021 1:08pm BP Systolic 134 mmHg BP Diastolic 74 mmHg Height 57.6 inches 4'9.60" Weight 102.25 lb BMI (Body Mass Index) 21.7 kg/m2 Heart Rate 87 /min Respiratory Rate 18 /min Body Temperature 97.7 F O2 % BldC Oximetry 97 % Forbes Body Weight 100 lb 01/28/2021 2:52pm BP Systolic 142 mmHg BP Diastolic 76 mmHg Height 57.6 inches 4'9.60" Weight 99.38 lb BMI (Body Mass Index) 21.1 kg/m2 Heart Rate 82 /min Respiratory Rate 18 /min Body Temperature 98.2 F O2 % BldC Oximetry 95 % Forbes Body Weight 100 lb Results Test Acquired Date Facility Test Result H/L Range Note Coronavirus 2019 Nasopharygeal 01/22/2021 [facility] Outpa tient Testing (Registration) [address] [place] [address] [phone] [phone] Coronavirus 2019 Nasopharygeal ASSAY INFORMATIO <SEE N OTE> 1 Basic Metabolic Profile 10/09/2020 [facility] Outpatient T esting (Registration) [address] [place] [address] [phone] Glucose, Fasting 151 mg/dL High 70-100 Blood [...] mg/dL Low 8.8-10.2 Laboratory test finding 10/09/2020 [facility] Outpatient T esting (Registration) [address] [place] [address] [phone] Amylase 41 U/L Normal 25-115 Lipase 34 U/L Low 73-393 Cardiac Marker Panel 10/09/2020 [facility] Outpatient Test ing (Registration) [address] [place] [address] [phone] CPK Creatine Phosphokinase 98 U/L Normal 26-19 2 CK-MB Value Mass 1.6 NG/ML Normal <3.6 MB/CK Relative Index 1.63 Normal < Or =4 3 Troponin I < 0.02 NG/ML Normal < 0.10 4 CBC With Differential 10/09/2020 [facility] Outpatient Natalie farahg (Registration) [address] [place] [address] 28411 [phone] White Blood Count 6.1 10 Normal 4.0-10.0 [...] 36.0-66.0 Lymph % 13.3 % Low 24.0-44.0 [place] % 5.4 % Normal 2.0-8.0 Eos % 2.0 % Normal 0.0-3.0 Baso % 0.7 % Normal 0.0-1.0 Immature Granulocyte % 0.3 % Normal 0-3.0 Nucleated Red Blood Cell % 0.0 % Normal 0-0 Neutrophils # 4.8 10 Normal 1.5-8.5 Lymph # 0.8 10 Low 1.5-5.0 [place] # 0.3 10 Normal 0.0-0.8 Eos # 0.1 10 Normal 0.0-0.5 Baso # 0.0 10 Normal 0.0-0.2 Ua W/ Reflex To Culture 10/09/2020 [facility] Outpatient T esting (Registration) [address] [place] [address] 69948 [phone] Appearance, Urine RFX HAZY Normal Clear Color, Urine RFX YELLOW Normal Yellow PH,Urine RFX 7.0 units Normal 5.0-9.0 Specific [place] Ur Auto RFX 1.009 Normal 1.002-1.035 Protein, [...] RFX SMALL High Negative Liver Profile 10/09/2020 [facility] Outpatient Testi wali (Registration) [address] [place], [place] [phone] Ast/Sgot 247 U/L High 7-37 Alt/SGPT 88 [...] Administration under the Emergency Use Authorization (EUA). [facility] and [facility] are designated as high complexity laboratories by [...] Little GFR Left ESRD GFR <15 on MACHINE II ENGRAVER 3 DIAGNOSIS CRITERIA MMB ng/ml Relative Index (RI) NON-AMI < or = 5 N/A FLOWERS ZONE > 5 < or = 4 AMI > 5 > 4 4 Troponin I Reference Interva l for Siemens Aspectiva LOCI: 99th Percentile= 0.00-0.045 ng/ml Risk Stratification: <= 0.10 ng/ml Decreased Risk for Adverse Clinical Events. 0.10-1.50 ng/ml Increased Risk for Adv erse Clinical Events. Evaluation of additional criterion and/or repeat testing in 2-6 hours is suggested to rule out myocardial damage. >= 1.50 ng/ml Indicative of Myocardial Injury. Procedures Date Code Description Status 02/04/2021 14746 Office/Outpatient Established Mo d MDM 30-39 Min Completed 01/28/2021 63122 Office/Outpatient Established Mo d MDM 30-39 Min Completed 12/02/2020 00480 Office/Outpatient Established Lo w MDM 20-29 Min Completed 11/12/2020 65815 Office/Outpatient Established Mo d MDM 30-39 Min Completed 10/20/2020 10322 [facility]patrick Cre W/I 7 Days Of DC, Comm W/I 2 Dys Completed 09/08/2020 98138 Office/Outpatient Established Mo d MDM 30-39 Min Completed 08/18/2020 59679 Office/Outpatient Established Lo w MDM 20-29 Min Completed Medical Devices Description No Information Available Encounters Type Date Location Provider Dx Diagnosis Office Visit 02/04/2021 1:10p [facility] Bhavik Celestin D.O. D62 Acute posthemorrhagic anemia D63.8 Anemia in other chronic dise ases classified elsewhere E03.9 Hypothyroidism, unspecified J45.40 Moderate persistent asthma, uncomplicated D51.9 Vitamin B12 deficiency anemi a, unspecified I48.0 Paroxysmal atrial fibrillati on I35.0 Nonrheumatic aortic (valve) stenosis I34.0 Nonrheumatic mitral (valve) insufficiency Office Visit 01/28/2021 2:40p [facility] Bhavik Celestin D.O. D63.8 Anemia in other chronic dise ases classified elsewhere E03.9 Hypothyroidism, unspecified J45.40 Moderate persistent asthma, uncomplicated D51.9 Vitamin B12 deficiency anemi a, unspecified Office Visit 12/02/2020 9:40a [facility] Bhavik Celestin D.O. S51.011A Laceration without foreign b tariq of right elbow, init encntr M81.0 Age-related osteoporosis w/o current pathological fracture Office Visit 11/12/2020 10:00a [facility] AURA Mccallum I10 Essential (primary) hyperten joel E03.9 Hypothyroidism, unspecified I48.0 Paroxysmal atrial fibrillati on J45.40 Moderate persistent asthma, uncomplicated I35.0 Nonrheumatic aortic (valve) stenosis D63.8 Anemia in other chronic dise ases classified elsewhere R60.9 Edema, unspecified Office Visit 10/20/2020 1:40p [facility] AURA Mccallum K80.80 Other cholelithiasis without obstruction Office Visit 09/08/2020 10:00a [facility] Ivette Celestin D.O. I10 Essential (primary) hyperten joel E03.9 Hypothyroidism, unspecified S81.812D Laceration without foreign b tariq, left lower leg, subs encntr I48.0 Paroxysmal atrial fibrillati on J45.40 Moderate persistent asthma, uncomplicated I35.0 Nonrheumatic aortic (valve) stenosis Z88.8 Allergy status to other drug /meds/biol subst Z87.891 Personal history of nicotine dependence Z79.899 Other usp (current) dr ug therapy I34.0 Nonrheumatic mitral (valve) insufficiency D63.8 Anemia in other chronic dise ases classified elsewhere E87.6 Hypokalemia Z96.642 Presence of left artificial hip joint 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 Office Visit 08/18/2020 1:40p [facility] Ivette Celestin D.O. S81.812D Laceration without foreign b tariq, left lower leg, subs encntr I10 Essential (primary) hyperten joel Assessments Date Code Description Provider 02/04/2021 D62 Acute posthemorrhagic anemia Anai Celestin D.O. 02/04/2021 D63.8 Anemia in other chronic diseases classified elsewhere Ivette Celestin D.O. 02/04/2021 E03.9 Hypothyroidism, unspecified Ivette Celestin, D.O. 02/04/2021 J45.40 Moderate persistent asthma, unco mplicated Ivette Ventura, D.O. 02/04/2021 D51.9 Vitamin B12 deficiency anemia, u nspecified Ivette Ventura, D.O. 02/04/2021 I48.0 Paroxysmal atrial fibrillation Armen ill Sabi D.O. 02/04/2021 I35.0 Nonrheumatic aortic (valve) sten [...] Celestin D.O. 11/12/2020 I10 Essential (primary) hypertension AURA Mccallum 11/12/2020 E03.9 Hypothyroidism, unspecified AURA Marie 11/12/2020 I48.0 Paroxysmal atrial fibrillation S AURA Saez 11/12/2020 J45.40 Moderate persistent asthma, unco mplicated AURA Mccallum 11/12/2020 I35.0 Nonrheumatic aortic (valve) sten osis AURA Mccallum 11/12/2020 D63.8 Anemia in other chronic diseases classified elsewhere AURA Mccallum 11/12/2020 R60.9 Edema, unspecified Mauri hernandez, AURA [...] her drugs, medicaments and biological substances Ivette Celestin, D.O. 09/08/2020 Z87.891 Personal history of nicotine dep endence Ivette Celestin, D.O. 09/08/2020 Z79.899 Other bed bug exterminator (current) drug t herapy Ivette Celestin, D.O. 09/08/2020 I34.0 Nonrheumatic mitral (valve) insu fficiency Ivette Celestin, D.O. 09/08/2020 D63.8 Anemia in other chronic diseases classified elsewhere Ivette Celestin D.O. 09/08/2020 E87.6 Hypokalemia Ivette ortiz D.O. 09/08/2020 Z96.642 Presence of left artificial hip joint Ivette Celestin D.O. 09/08/2020 I25.10 Atherosclerotic hear t disease of [place] coronary artery without angina pectoris Ivette Celestin D.O. 08/18/2020 S81.812D Laceration without f oreign body, left lower leg, subsequent encounter Ivette Celestin D.O. 08/18/2020 I10 Essential (primary) hypertension Ivette Celestin D.O. Plan of Treatment Future Appointment(s):* 02/11/2021 1:20 pm - Ivette Celestin D.O. at [facility] * 02/12/2021 9:30 am - Ivette Celestin D.O. at [facility] 02/04/2021 - Ivette Celestin D.O.* D62 Acute posthemorrhagic anemia* Comments:* Hemoglobin was previously in the 10s and was 8.4 last week and 8.9 this week. Her labs reveal that she is likely having a GI bleed or was as this is improving slowly. I will hold Xarelto for the next week and use sulcrafate and increase her to 40 mg omeprazole. I will send a copy of my note to Dr. Cadence Huang and to Dr. Acosta so that they are aware that I suspect a GI bleed. * D63.8 Anemia in other chronic diseases classified elsewhere* New Medication:* Sucralfate 1 GM/10ML - 10 milliliters by mouth four times daily before meals as needed * Omeprazole 40 mg - 1 by mouth every day * New Labs:* CBC W/Auto Differential, Ordered: 02/04/21 * Comments:* Her labs reveal that she is likely having a GI bleed or was as this is improving slowly. I will hold Xarelto for the next week and use sulcrafate and increase her to 40 mg omeprazole. I will send a copy of my note to Dr. Cadence Huang and to Dr. Acosta so that they are aware that I suspect a GI bleed. * Follow up:* 1 week with me * E03.9 Hypothyroidism, unspecified * J45.40 Moderate persistent asthma, uncomplicated* Comments:* stable * D51.9 Vitamin B12 deficiency anemia, unspecified* Comments:* levels are normal with her injections * I48.0 Paroxysmal atrial fibrillation* Comments:* She is rate controlled and we will hold xarelto for 1 week to see if her blood counts improve. She understands that this increases her risk for stroke * I35.0 Nonrheumatic aortic (valve) stenosis* Comments:* moderately severe aortic valve stenosis and mildly worsening mitral insufficiency on 03/12/19 echo -They attempted to do a procedure on her valve in 12/2019 but there was too much scar tissue and they were not successful. She underwent cardiac catheterization and the are discuss TAVR and she will be having PUNEET soon * I34.0 Nonrheumatic mitral (valve) insufficiency Functional Status Description No Information Available Mental Status Description No Information Available Referrals Description No Information Available
--- OUTSIDE RECORDS SUMMARY | 2021-02-27 20:15 | CCD | Continuity of Care Document ---
Author Author Ita CELESTIN D.O. Organization Unknown Address [address] [facility] [address] [place] [address] Phone [phone] Care Team Providers Care Grey Tender Name Role Phone Ivette Celestin D.O. AUTM Seth Acosta M.D. AUTM [phone] Deangelo Baldwin D.O. AUTM [phone] Woo Cruz M.D. AUTM [phone] Cadence Huang M.D. AUTM [phone] Problems Active Problems Provider Date Disorder of [...] Amelie DuncanO. 05/11 Vitamin D (Ergocalciferol) 1.25mg (61335 Ut) Capsules Take 1 Capsule By Mouth Once A Week 4caps Amelie DuncanODoris 01/13/2020 Symbicort 160-4.5mcg/Act Aerosol 1 puffs twice a day, rinse out mouth afterwards. 10.200gm Amelie LanierODoris 02/22/2019 Tylenol Extra Strength 500mg Table ts 2 tablets by mouth every 8 hours as needed 30tabs Amelie LanierO. 01/23/[id number] Part 1 tab by mouth [...] CPT Code Status Date Vaccine Lot # [id number] Given 10/05/2015 Pneumococcal Con jugate Vaccine 13 Valent For Intramuscular Use Vital Signs Date Vital Result Comment 02/04/2021 1:08pm BP Systolic 134 mmHg BP Diastolic 74 mmHg Height 57.6 inches 4'9.60" Weight 102.25 lb BMI (Body Mass Index) 21.7 kg/m2 Heart Rate 87 /min Respiratory Rate 18 /min Body Temperature 97.7 F O2 % BldC Oximetry 97 % [place] Body Weight 100 lb 01/28/2021 2:52pm BP Systolic 142 mmHg BP Diastolic 76 mmHg Height 57.6 inches 4'9.60" Weight 99.38 lb BMI (Body Mass Index) 21.1 kg/m2 Heart Rate 82 /min Respiratory Rate 18 /min Body Temperature 98.2 F O2 % BldC Oximetry 95 % [place] Body Weight 100 lb Results Test Acquired Date Facility Test Result H/L Range Note Coronavirus 2019 Nasopharygeal 01/22/2021 [facility] Outpa tient Testing (Registration) [address] [place] [address] [id number] [phone] Coronavirus 2019 Nasopharygeal ASSAY INFORMATIO <SEE N OTE> 1 Basic Metabolic Profile 10/09/2020 [facility] Outpatient T esting (Registration) [address] [place] [address] [phone] [phone] Glucose, Fasting 151 mg/dL High 70-100 Blood [...] mg/dL Low 8.8-10.2 Laboratory test finding 10/09/2020 [facility] Outpatient T esting (Registration) [address] [place] [address] [id number] [phone] Amylase 41 U/L Normal 25-115 Lipase 34 U/L Low 73-393 Cardiac Marker Panel 10/09/2020 [facility] Outpatient Test ing (Registration) [address] [place] [address] [id number] [phone] CPK Creatine Phosphokinase 98 U/L Normal 26-19 2 CK-MB Value Mass 1.6 NG/ML Normal <3.6 MB/CK Relative Index 1.63 Normal < Or =4 3 Troponin I < 0.02 NG/ML Normal < 0.10 4 CBC With Differential 10/09/2020 [facility] Outpatient Natalie farahg (Registration) [address] [place] [address] 94260 [phone] White Blood Count 6.1 10 Normal 4.0-10.0 [...] 36.0-66.0 Lymph % 13.3 % Low 24.0-44.0 [place] % 5.4 % Normal 2.0-8.0 Eos % 2.0 % Normal 0.0-3.0 Baso % 0.7 % Normal 0.0-1.0 Immature Granulocyte % 0.3 % Normal 0-3.0 Nucleated Red Blood Cell % 0.0 % Normal 0-0 Neutrophils # 4.8 10 Normal 1.5-8.5 Lymph # 0.8 10 Low 1.5-5.0 [place] # 0.3 10 Normal 0.0-0.8 Eos # 0.1 10 Normal 0.0-0.5 Baso # 0.0 10 Normal 0.0-0.2 Ua W/ Reflex To Culture 10/09/2020 [facility] Outpatient T esting (Registration) [address] [place] [address] 02493 [phone] Appearance, Urine RFX HAZY Normal Clear Color, Urine RFX YELLOW Normal Yellow PH,Urine RFX 7.0 units Normal 5.0-9.0 Specific [place] Ur Auto RFX 1.009 Normal 1.002-1.035 Protein, [...] RFX SMALL High Negative Liver Profile 10/09/2020 [facility] Outpatient Testi wali (Registration) [address] [place], [place] [id number] [phone] Ast/Sgot 247 U/L High 7-37 Alt/SGPT 88 [...] Administration under the Emergency Use Authorization (EUA). [employer] are designated as high complexity laboratories by [...] Little GFR Left ESRD GFR <15 on ARCADE ATTENDANT 3 DIAGNOSIS CRITERIA MMB ng/ml Relative Index (RI) NON-AMI < or = 5 N/A FLOWERS ZONE > 5 < or = 4 AMI > 5 > 4 4 Troponin I Reference Interva l for Siemens Yadio LOCI: 99th Percentile= 0.00-0.045 ng/ml Risk Stratification: <= 0.10 ng/ml Decreased Risk for Adverse Clinical Events. 0.10-1.50 ng/ml Increased Risk for Adv erse Clinical Events. Evaluation of additional criterion and/or repeat testing in 2-6 hours is suggested to rule out myocardial damage. >= 1.50 ng/ml Indicative of Myocardial Injury. Procedures Date Code Description Status 02/04/2021 02627 Office/Outpatient Established Mo d MDM 30-39 Min Completed 01/28/2021 43894 Office/Outpatient Established Mo d MDM 30-39 Min Completed 12/02/2020 28061 Office/Outpatient Established Lo w MDM 20-29 Min Completed 11/12/2020 62614 Office/Outpatient Established Mo d MDM 30-39 Min Completed 10/20/2020 75877 [facility] Cre W/I 7 Days Of DC, Comm W/I 2 Dys Completed 09/08/2020 83771 Office/Outpatient Established Mo d MDM 30-39 Min Completed 08/18/2020 03522 Office/Outpatient Established Lo w MDM 20-29 Min Completed Medical Devices Description No Information Available Encounters Type Date Location Provider Dx Diagnosis Office Visit 02/04/2021 1:10p [facility] Bhavik Celestin D.O. D62 Acute posthemorrhagic anemia D63.8 Anemia in other chronic dise ases classified elsewhere E03.9 Hypothyroidism, unspecified J45.40 Moderate persistent asthma, uncomplicated D51.9 Vitamin B12 deficiency anemi a, unspecified I48.0 Paroxysmal atrial fibrillati on I35.0 Nonrheumatic aortic (valve) stenosis I34.0 Nonrheumatic mitral (valve) insufficiency Office Visit 01/28/2021 2:40p [facility] Bhavik Celestin D.O. D63.8 Anemia in other chronic dise ases classified elsewhere E03.9 Hypothyroidism, unspecified J45.40 Moderate persistent asthma, uncomplicated D51.9 Vitamin B12 deficiency anemi a, unspecified Office Visit 12/02/2020 9:40a [facility] Bhavik Celestin D.O. S51.011A Laceration without foreign b tariq of right elbow, init encntr M81.0 Age-related osteoporosis w/o current pathological fracture Office Visit 11/12/2020 10:00a [facility] AURA Mccallum I10 Essential (primary) hyperten joel E03.9 Hypothyroidism, unspecified I48.0 Paroxysmal atrial fibrillati on J45.40 Moderate persistent asthma, uncomplicated I35.0 Nonrheumatic aortic (valve) stenosis D63.8 Anemia in other chronic dise ases classified elsewhere R60.9 Edema, unspecified Office Visit 10/20/2020 1:40p [facility] AURA Mccallum K80.80 Other cholelithiasis without obstruction Office Visit 09/08/2020 10:00a [facility] Ivette Celestin D.O. I10 Essential (primary) hyperten joel E03.9 Hypothyroidism, unspecified S81.812D Laceration without foreign b tariq, left lower leg, subs encntr I48.0 Paroxysmal atrial fibrillati on J45.40 Moderate persistent asthma, uncomplicated I35.0 Nonrheumatic aortic (valve) stenosis Z88.8 Allergy status to other drug /meds/biol subst Z87.891 Personal history of nicotine dependence Z79.899 Other care home (current) dr ug therapy I34.0 Nonrheumatic mitral (valve) insufficiency D63.8 Anemia in other chronic dise ases classified elsewhere E87.6 Hypokalemia Z96.642 Presence of left artificial hip joint 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 Office Visit 08/18/2020 1:40p [facility] Ivette Celestin D.O. S81.812D Laceration without foreign [...] endence Ivette Celestin, D.O. 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 09/08/2020 I34.0 Nonrheumatic mitral (valve) insu fficiency Ivette Celestin, D.O. 09/08/2020 D63.8 Anemia in other chronic diseases classified elsewhere Ivette Celestin D.O. 09/08/2020 E87.6 Hypokalemia Ivette ortiz D.O. 09/08/2020 Z96.642 Presence of left artificial hip joint Ivette Celestin D.O. 09/08/2020 I25.10 Atherosclerotic hear t disease of [place] coronary artery without angina pectoris Ivette Celestin D.O. 08/18/2020 S81.812D Laceration without f oreign body, left lower leg, subsequent encounter Ivette Celestin D.O. 08/18/2020 I10 Essential (primary) hypertension Ivette Celestin D.O. Plan of Treatment Future Appointment(s):* 02/11/2021 1:20 pm - Ivette Celestin D.O. at [facility] * 02/12/2021 9:30 am - Ivette Celestin D.O. at [facility] 02/04/2021 - Ivette Celestin D.O.* D62 Acute [...]
--- OUTSIDE RECORDS SUMMARY | 2021-02-27 20:15 | CCD | Continuity of Care Document ---
Author Author Ita CELESTIN D.O. Organization Unknown Address [address] [facility] [address] [place] [address] Phone [phone] Care Team Providers Care Paper Cup Machine Tender Name Role Phone Ivette Celestin D.O. AUTM Seth Acosta M.D. AUTM [phone] Deangelo Baldwin D.O. AUTM [phone] Woo Cruz M.D. AUTM [phone] Cadence Huang M.D. AUTM [phone] Problems Active Problems Provider Date Disorder of [...] tablet by mouth every day 90tabs Amelie DuncanODoris 05/11 Vitamin D (Ergocalciferol) 1.25mg (68964 Ut) Capsules Take 1 Capsule By Mouth Once A Week 4caps Amelie DuncanODoris 01/13/2020 Symbicort 160-4.5mcg/Act Aerosol 1 puffs twice a day, rinse out mouth afterwards. 10.200gm Amelie LanierODoris 02/22/2019 Tylenol Extra Strength 500mg Table ts 2 tablets by mouth every 8 hours as needed 30tabs Amelie LanierODoris 01/23/[id number] Part 1 tab by mouth [...] Solution Inject 1ML Once A Month 3units Ivette Celestin D.O. Ventolin HFA 108(90Base) mcg/Act A erosol 2 puffs every 4 hours shortness of breath or wheezing Unknown History Medications Hydrocodone-Acetaminophen 5-325mg Tablets 1 tablets by mouth every 6 hours as needed 28tabs S81.812D Amelie DuncanODoris 08/18/2020 - 10/13/2020 Immunizations CPT Code Status Date Vaccine Lot # [id number] Given 10/05/2015 Pneumococcal Con jugate Vaccine 13 Valent For Intramuscular Use Vital Signs Date Vital Result Comment 02/04/2021 1:08pm BP Systolic 134 mmHg BP Diastolic 74 mmHg Height 57.6 inches 4'9.60" Weight 102.25 lb BMI (Body Mass Index) 21.7 kg/m2 Heart Rate 87 /min Respiratory Rate 18 /min Body Temperature 97.7 F O2 % BldC Oximetry 97 % [place] Body Weight 100 lb 01/28/2021 2:52pm BP Systolic 142 mmHg BP Diastolic 76 mmHg Height 57.6 inches 4'9.60" Weight 99.38 lb BMI (Body Mass Index) 21.1 kg/m2 Heart Rate 82 /min Respiratory Rate 18 /min Body Temperature 98.2 F O2 % BldC Oximetry 95 % [place] Body Weight 100 lb Results Test Acquired Date Facility Test Result H/L Range Note Coronavirus 2019 Nasopharygeal 01/22/2021 [facility] Outpa tient Testing (Registration) [address] [place] [address] [phone] Coronavirus 2019 Nasopharygeal ASSAY INFORMATIO <SEE N OTE> 1 Basic Metabolic Profile 10/09/2020 [facility] Outpatient T esting (Registration) [address] [place] [address] [phone] Glucose, Fasting 151 mg/dL High 70-100 Blood [...] mg/dL Low 8.8-10.2 Laboratory test finding 10/09/2020 [facility] Outpatient T esting (Registration) [address] [place] [address] 85148 [phone] Amylase 41 U/L Normal 25-115 Lipase 34 U/L Low 73-393 Cardiac Marker Panel 10/09/2020 [facility] Outpatient Test ing (Registration) [address] [place] [address] 37972 [phone] CPK Creatine Phosphokinase 98 U/L Normal 26-19 2 CK-MB Value Mass 1.6 NG/ML Normal <3.6 MB/CK Relative Index 1.63 Normal < Or =4 3 Troponin I < 0.02 NG/ML Normal < 0.10 4 CBC With Differential 10/09/2020 [facility] Outpatient Natalie paris (Registration) [address] [place] [address] 59436 [phone] White Blood Count 6.1 10 Normal 4.0-10.0 [...] 36.0-66.0 Lymph % 13.3 % Low 24.0-44.0 [place] % 5.4 % Normal 2.0-8.0 Eos % 2.0 % Normal 0.0-3.0 Baso % 0.7 % Normal 0.0-1.0 Immature Granulocyte % 0.3 % Normal 0-3.0 Nucleated Red Blood Cell % 0.0 % Normal 0-0 Neutrophils # 4.8 10 Normal 1.5-8.5 Lymph # 0.8 10 Low 1.5-5.0 [place] # 0.3 10 Normal 0.0-0.8 Eos # 0.1 10 Normal 0.0-0.5 Baso # 0.0 10 Normal 0.0-0.2 Ua W/ Reflex To Culture 10/09/2020 [facility] Outpatient T vijayaing (Registration) [address] [place] [address] 32603 [phone] Appearance, Urine RFX HAZY Normal Clear Color, Urine RFX YELLOW Normal Yellow PH,Urine RFX 7.0 units Normal 5.0-9.0 Specific [place] Ur Auto RFX 1.009 Normal 1.002-1.035 Protein, [...] RFX SMALL High Negative Liver Profile 10/09/2020 [facility] Outpatient Testi wali (Registration) [address] [place] [address] 84152 [phone] Ast/Sgot 247 U/L High 7-37 Alt/SGPT 88 [...] Administration under the Emergency Use Authorization (EUA). [employer] are designated as high complexity laboratories by [...] Little GFR Left ESRD GFR <15 on WEATHERIZATION COORDINATOR 3 DIAGNOSIS CRITERIA MMB ng/ml Relative Index (RI) NON-AMI < or = 5 N/A FLOWERS ZONE > 5 < or = 4 AMI > 5 > 4 4 Troponin I Reference Interva l for [employer] LOCI: 99th Percentile= 0.00-0.045 ng/ml Risk Stratification: <= 0.10 ng/ml Decreased Risk for Adverse Clinical Events. 0.10-1.50 ng/ml Increased Risk for Adv erse Clinical Events. Evaluation of additional criterion and/or repeat testing in 2-6 hours is suggested to rule out myocardial damage. >= 1.50 ng/ml Indicative of Myocardial Injury. Procedures Date Code Description Status 02/04/2021 17528 Office/Outpatient Established Mo d MDM 30-39 Min Completed 01/28/2021 31086 Office/Outpatient Established Mo d MDM 30-39 Min Completed 12/02/2020 26682 Office/Outpatient Established Lo w MDM 20-29 Min Completed 11/12/2020 14646 Office/Outpatient Established Mo d MDM 30-39 Min Completed 10/20/2020 95376 [facility] Cre W/I 7 Days Of DC, Comm W/I 2 Dys Completed 09/08/2020 82708 Office/Outpatient Established Mo d MDM 30-39 Min Completed 08/18/2020 12729 Office/Outpatient Established Lo w MDM 20-29 Min Completed Medical Devices Description No Information Available Encounters Type Date Location Provider Dx Diagnosis Office Visit 02/04/2021 1:10p [facility] Bhavik Celestin D.O. D62 Acute posthemorrhagic anemia D63.8 Anemia in other chronic dise ases classified elsewhere E03.9 Hypothyroidism, unspecified J45.40 Moderate persistent asthma, uncomplicated D51.9 Vitamin B12 deficiency anemi a, unspecified I48.0 Paroxysmal atrial fibrillati on I35.0 Nonrheumatic aortic (valve) stenosis I34.0 Nonrheumatic mitral (valve) insufficiency Office Visit 01/28/2021 2:40p [facility] Bhavik Celestin D.O. D63.8 Anemia in other chronic dise ases classified elsewhere E03.9 Hypothyroidism, unspecified J45.40 Moderate persistent asthma, uncomplicated D51.9 Vitamin B12 deficiency anemi a, unspecified Office Visit 12/02/2020 9:40a [facility] Bhavik Celestin D.O. S51.011A Laceration without foreign b tariq of right elbow, init encntr M81.0 Age-related osteoporosis w/o current pathological fracture Office Visit 11/12/2020 10:00a [facility] AURA Mccallum I10 Essential (primary) hyperten joel E03.9 Hypothyroidism, unspecified I48.0 Paroxysmal atrial fibrillati on J45.40 Moderate persistent asthma, uncomplicated I35.0 Nonrheumatic aortic (valve) stenosis D63.8 Anemia in other chronic dise ases classified elsewhere R60.9 Edema, unspecified Office Visit 10/20/2020 1:40p [facility] AURA Mccallum K80.80 Other cholelithiasis without obstruction Office Visit 09/08/2020 10:00a [facility] Ivette Celestin D.O. I10 Essential (primary) hyperten joel E03.9 Hypothyroidism, unspecified S81.812D Laceration without foreign b tariq, left lower leg, subs encntr I48.0 Paroxysmal atrial fibrillati on J45.40 Moderate persistent asthma, uncomplicated I35.0 Nonrheumatic aortic (valve) stenosis Z88.8 Allergy status to other drug /meds/biol subst Z87.891 Personal history of nicotine dependence Z79.899 Other half-way (current) dr ug therapy I34.0 Nonrheumatic mitral (valve) insufficiency D63.8 Anemia in other chronic dise ases classified elsewhere E87.6 Hypokalemia Z96.642 Presence of left artificial hip joint 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 Office Visit 08/18/2020 1:40p [facility] Ivette Celestin D.O. S81.812D Laceration without foreign b tariq, left lower leg, subs encntr I10 Essential (primary) hyperten joel Assessments Date Code Description Provider 02/04/2021 D62 Acute posthemorrhagic anemia Amelie BonillaODoris 02/04/2021 D63.8 Anemia in other chronic diseases [...] elsewhere AURA Mccallum 11/12/2020 R60.9 Edema, unspecified AURA Blackwell 10/20/2020 K80.80 Other cholelithiasis without obs truction AURA Mccallum 09/08/2020 I10 Essential (primary) hypertension Ivette Celestin D.O. 09/08/2020 E03.9 Hypothyroidism, unspecified Ivette Celestin, [...] endence Ivette Celestin D.O. 09/08/2020 Z79.899 Other half-way (current) drug t herapy Ivette Celestin D.O. 09/08/2020 I34.0 Nonrheumatic mitral (valve) insu fficiency Ivette Celestin, D.O. 09/08/2020 D63.8 Anemia in other chronic diseases classified elsewhere Ivette Celestin D.O. 09/08/2020 E87.6 Hypokalemia Ivette ortiz D.O. 09/08/2020 Z96.642 Presence of left artificial hip joint Ivette Celestin D.O. 09/08/2020 I25.10 Atherosclerotic hear t disease of [place] coronary artery without angina pectoris Ivette Celestin D.O. 08/18/2020 S81.812D Laceration without f oreign body, left lower leg, subsequent encounter Ivette Celestin D.O. 08/18/2020 I10 Essential (primary) hypertension Ivette Celestin D.O. Plan of Treatment Future Appointment(s):* 02/11/2021 1:20 pm - Ivette Celestin D.O. at [facility] * 02/12/2021 9:30 am - Ivette Celestin D.O. at [facility] 02/04/2021 - Ivette Celestin D.O.* D62 [...] - 1 by mouth every day * Comments:* Her labs reveal that she [...]
--- OUTSIDE RECORDS SUMMARY | 2021-02-27 20:15 | CCD | Continuity of Care Document ---
Author Author Ita CELESTIN D.O. Organization Unknown Address [address] [facility] [address] [place] [address] Phone [phone] Care Team Providers Care Shortage Worker Name Role Phone Ivette Celestin D.O. AUTM [phone] Seth Acosta M.D. AUTM [phone] Deangelo Baldwin D.O. AUTM [phone] Woo Cruz M.D. AUTM [phone] Cadence Huang M.D. AUTM [phone] Problems Active Problems Provider Date Disorder of [...] SIG Qnty Indications Ordering Provide r Date Levothyroxine Sodium 75mcg Tablets 1 tab by mouth every morning 90tabs E03.9 Amelie DuncanO Doris 01/28/2021 Potassium Chloride Naz ER 10Meq Tablets ER 1 by mouth every day in the morning 90tabs Amelie DuncanO. 06/05/2020 Xarelto 20mg Tablets take one tablet by mouth every day 90tabs Amelie DuncanO. 05/11 Vitamin D (Ergocalciferol) 1.25mg (32463 Ut) Capsules Take 1 Capsule By Mouth Once A Week 4caps Ivette Celestin D.O. 01/13/2020 Symbicort 160-4.5mcg/Act Aerosol 1 puffs twice a day, rinse out mouth afterwards. 10.200gm Amelie LanierO. 02/22/2019 Losartan Potassium 50mg Tablets Take One Tablet By Mouth Every Day 90tabs I16.0 Ivette Celestin D.O. 02/22/2019 Tylenol Extra Strength 500mg Table ts 2 tablets by mouth every 8 hours as needed 30tabs Amelie LanierODoris 01/23/[id number] Part 1 tab by mouth three times a day with meals Unknown Loperamide HCL 2mg Capsules one capsule daily as needed for diarrhea Unknown Omeprazole 20mg Capsules DR 1 by mouth every day Unknown Furosemide 40mg Tablets 2 by mouth [...] CPT Code Status Date Vaccine Lot # [id number] Given 10/05/2015 Pneumococcal Con jugate Vaccine 13 Valent For Intramuscular Use Vital Signs Date Vital Result Comment 01/28/2021 2:52pm BP Systolic 142 mmHg BP Diastolic 76 mmHg Height 57.6 inches 4'9.60" Weight 99.38 lb BMI (Body Mass Index) 21.1 kg/m2 Heart Rate 82 /min Respiratory Rate 18 /min Body Temperature 98.2 F O2 % BldC Oximetry 95 % [place] Body Weight 100 lb 12/02/2020 9:53am BP Systolic 130 mmHg BP Diastolic 98 mmHg Height 57.6 inches 4'9.60" Weight 98.25 lb BMI (Body Mass Index) 20.8 kg/m2 Heart Rate 78 /min Respiratory Rate 14 /min Body Temperature 96.8 F O2 % BldC Oximetry 98 % [place] Body Weight 100 lb Results Test Acquired Date Facility Test Result H/L Range Note Coronavirus 2019 Nasopharygeal 01/22/2021 [facility] Outpa tient Testing (Registration) [address] [place] [address]14 [phone] Coronavirus 2019 Nasopharygeal ASSAY INFORMATIO <SEE N OTE> 1 Basic Metabolic Profile 10/09/2020 [facility] Outpatient T esting (Registration) [address] [place] [address] [phone] Glucose, Fasting 151 mg/dL High 70-100 Blood [...] mg/dL Low 8.8-10.2 Laboratory test finding 10/09/2020 [facility] Outpatient T esting (Registration) [address] [place] [address] [phone] Amylase 41 U/L Normal 25-115 Lipase 34 U/L Low 73-393 Cardiac Marker Panel 10/09/2020 [facility] Outpatient Test ing (Registration) [address] [place] [address] [phone] CPK Creatine Phosphokinase 98 U/L Normal 26-19 2 CK-MB Value Mass 1.6 NG/ML Normal <3.6 MB/CK Relative Index 1.63 Normal < Or =4 3 Troponin I < 0.02 NG/ML Normal < 0.10 4 CBC With Differential 10/09/2020 [facility] Outpatient Natalie paris (Registration) [address] [place] [address] 17331 [phone] White Blood Count 6.1 10 Normal 4.0-10.0 [...] 36.0-66.0 Lymph % 13.3 % Low 24.0-44.0 [place] % 5.4 % Normal 2.0-8.0 Eos % 2.0 % Normal 0.0-3.0 Baso % 0.7 % Normal 0.0-1.0 Immature Granulocyte % 0.3 % Normal 0-3.0 Nucleated Red Blood Cell % 0.0 % Normal 0-0 Neutrophils # 4.8 10 Normal 1.5-8.5 Lymph # 0.8 10 Low 1.5-5.0 [place] # 0.3 10 Normal 0.0-0.8 Eos # 0.1 10 Normal 0.0-0.5 Baso # 0.0 10 Normal 0.0-0.2 Ua W/ Reflex To Culture 10/09/2020 [facility] Outpatient T michael (Registration) [address] [place] [address] 80629 [phone] Appearance, Urine RFX HAZY Normal Clear Color, Urine RFX YELLOW Normal Yellow PH,Urine RFX 7.0 units Normal 5.0-9.0 Specific Jenkins Ur Auto RFX 1.009 Normal 1.002-1.035 Protein, [...] RFX SMALL High Negative Liver Profile 10/09/2020 [facility] Outpatient Testi wali (Registration) [address] [phone] Ast/Sgot 247 U/L High 7-37 Alt/SGPT 88 [...] Administration under the Emergency Use Authorization (EUA). [employer] and [employer] are designated as high complexity laboratories by [...] Little GFR Left ESRD GFR <15 on [employer]ER 3 DIAGNOSIS CRITERIA MMB ng/ml Relative Index (RI) NON-AMI < or = 5 N/A FLOWERS ZONE > 5 < or = 4 AMI > 5 > 4 4 Troponin I Reference Interva l for [employer] LOCI: 99th Percentile= 0.00-0.045 ng/ml Risk Stratification: <= 0.10 ng/ml Decreased Risk for Adverse Clinical Events. 0.10-1.50 ng/ml Increased Risk for Adv erse Clinical Events. Evaluation of additional criterion and/or repeat testing in 2-6 hours is suggested to rule out myocardial damage. >= 1.50 ng/ml Indicative of Myocardial Injury. Procedures Date Code Description Status 01/28/2021 80465 Office/Outpatient Established Mo d MDM 30-39 Min Completed 12/02/2020 08592 Office/Outpatient Established Lo w MDM 20-29 Min Completed 11/12/2020 05823 Office/Outpatient Established Mo d MDM 30-39 Min Completed 10/20/2020 93423 [facility] Cre W/I 7 Days Of DC, Comm W/I 2 Dys Completed 09/08/2020 34999 Office/Outpatient Established Mo d MDM 30-39 Min Completed 08/18/2020 55267 Office/Outpatient Established Lo w MDM 20-29 Min Completed Medical Devices Description No Information Available Encounters Type Date Location Provider Dx Diagnosis Office Visit 01/28/2021 2:40p [facility] Ivette Celestin D.O. D63.8 Anemia in other chronic dise ases classified elsewhere E03.9 Hypothyroidism, unspecified J45.40 Moderate persistent asthma, uncomplicated D51.9 Vitamin B12 deficiency anemi a, unspecified Office Visit 12/02/2020 9:40a [facility] Amelie DuncanO. S51.011A Laceration without foreign b tariq of right elbow, init encntr M81.0 Age-related osteoporosis w/o current pathological fracture Office Visit 11/12/2020 10:00a [facility] AURA Mccallum I10 Essential (primary) hyperten joel E03.9 Hypothyroidism, unspecified I48.0 Paroxysmal atrial fibrillati on J45.40 Moderate persistent asthma, uncomplicated I35.0 Nonrheumatic aortic (valve) stenosis D63.8 Anemia in other chronic dise ases classified elsewhere R60.9 Edema, unspecified Office Visit 10/20/2020 1:40p [facility] AURA Mccallum K80.80 Other cholelithiasis without obstruction Office Visit 09/08/2020 10:00a [facility] Amelie DuncanO. I10 Essential (primary) hyperten joel E03.9 Hypothyroidism, unspecified S81.812D Laceration without foreign b tariq, left lower leg, subs encntr I48.0 Paroxysmal atrial fibrillati on J45.40 Moderate persistent asthma, uncomplicated I35.0 Nonrheumatic aortic (valve) stenosis Z88.8 Allergy status to other drug /meds/biol subst Z87.891 Personal history of nicotine dependence Z79.899 Other residential (current) dr moffett therapy I34.0 Nonrheumatic mitral (valve) insufficiency D63.8 Anemia in other chronic dise ases classified elsewhere E87.6 Hypokalemia Z96.642 Presence of left artificial hip joint 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 Office Visit 08/18/2020 1:40p [facility] Ivette Celestin D.O. S81.812D Laceration without foreign b tariq, left lower leg, subs encntr I10 Essential (primary) hyperten joel Assessments Date Code Description Provider 01/28/2021 D63.8 Anemia in other chronic diseases classified elsewhere Ivette Celestin D.O. 01/28/2021 E03.9 Hypothyroidism, unspecified Ivette Celestin D.O. 01/28/2021 J45.40 Moderate persistent asthma, unco mplicated Amelie SingletaryODoris 01/28/2021 D51.9 Vitamin B12 deficiency anemia, u nspecified Amelie SingletaryODoris 12/02/2020 S51.011A Laceration without f oreign body [...] AURA 09/08/2020 I10 Essential (primary) hypertension Ivette Celestin [...] endence Ivette Celestin, D.O. 09/08/2020 Z79.899 Other residential (current) drug t herapy Ivette Celestin D.O. 09/08/2020 I34.0 Nonrheumatic mitral (valve) insu fficiency Ivette Celestin D.O. 09/08/2020 D63.8 Anemia in other chronic diseases classified elsewhere Ivette Celestin D.O. 09/08/2020 E87.6 Hypokalemia Ivette ortiz D.O. 09/08/2020 Z96.642 Presence of left artificial hip joint Ivette Celestin D.O. 09/08/2020 I25.10 Atherosclerotic hear t disease of [place] coronary artery without angina pectoris Ivette Celestin D.O. 08/18/2020 S81.812D Laceration without f oreign body, left lower leg, subsequent encounter Ivette Celestin D.O. 08/18/2020 I10 Essential (primary) hypertension Ivette Celestin D.O. Plan of Treatment Future Appointment(s):* 02/04/2021 1:10 pm - Ivette Celestin D.O. at [facility] * 02/12/2021 9:30 am - Ivette Celestin D.O. at [facility] Functional Status Description No Information Available Mental Status Description No Information Available Referrals Description No Information Available
--- OUTSIDE RECORDS SUMMARY | 2021-02-27 20:15 | CCD | Continuity of Care Document ---
Author Author Ita CELESTIN D.O. Organization Unknown Address [address] [facility] [address] [place] [address] Phone [phone] Care Team Providers Care Clinical Professor Name Role Phone Ivette Celestin D.O. AUTM [phone] Seth Acosta M.D. AUTM [phone] Deangelo Baldwin D.O. AUTM [phone] Woo Cruz M.D. AUTM [phone] Cadence Huang M.D. AUTM [phone] Problems Active Problems Provider Date Disorder of [...] Duncan.O. 01/11 /2021 Vitamin D (Ergocalciferol) 1.25mg (77003 Ut) Capsules Take 1 Capsule By Mouth Once A Week 4caps Ivette Celestin D.O. 01/13/2020 Symbicort 160-4.5mcg/Act Aerosol 1 puffs twice a day, rinse out mouth afterwards. 10.200gm Amelie LanierODoris 02/22/2019 Tylenol Extra Strength 500mg Table ts 2 tablets by mouth every 8 hours as needed 30tabs Amelie LanierODoris 01/23/[id number] Bernard 1 tab by mouth [...] CPT Code Status Date Vaccine Lot # 31537 Given 10/05/2015 Pneumococcal Con jugate Vaccine 13 Valent For Intramuscular Use Vital Signs Date Vital Result Comment 02/11/2021 1:25pm BP Systolic 134 mmHg BP Diastolic 82 mmHg Height 57.6 inches 4'9.60" Weight 100.38 lb BMI (Body Mass Index) 21.3 kg/m2 Heart Rate 67 /min Respiratory Rate 18 /min Body Temperature 97.6 F O2 % BldC Oximetry 99 % [place] Body Weight 100 lb 02/04/2021 1:08pm BP Systolic 134 mmHg BP Diastolic 74 mmHg Height 57.6 inches 4'9.60" Weight 102.25 lb BMI (Body Mass Index) 21.7 kg/m2 Heart Rate 87 /min Respiratory Rate 18 /min Body Temperature 97.7 F O2 % BldC Oximetry 97 % [place] Body Weight 100 lb Results Test Acquired Date Facility Test Result H/L Range Note Coronavirus 2019 Nasopharygeal 01/22/2021 [facility] Outpa tient Testing (Registration) [address] [place] [address] 24299 [phone] Coronavirus 2019 Nasopharygeal ASSAY INFORMATIO <SEE N OTE> 1 Basic Metabolic Profile 10/09/2020 [facility] Outpatient T esting (Registration) [address] [place] [address] 89171 [phone] Glucose, Fasting 151 mg/dL High 70-100 Blood [...] 10/09/2020 [facility] Outpatient T esting (Registration) [address] [place] [address] [phone] Amylase 41 U/L Normal 25-115 Lipase 34 U/L Low 73-393 Cardiac Marker Panel 10/09/2020 [facility] Outpatient Test ing (Registration) [address] [place] [address] 65584 [phone] CPK Creatine Phosphokinase 98 U/L Normal 26-19 2 CK-MB Value Mass 1.6 NG/ML Normal <3.6 MB/CK Relative Index 1.63 Normal < Or =4 3 Troponin I < 0.02 NG/ML Normal < 0.10 4 CBC With Differential 10/09/2020 [facility] Outpatient Natalie ting (Registration) [address] [place] [address] 38153 [phone] White Blood Count 6.1 10 Normal 4.0-10.0 [...] 36.0-66.0 Lymph % 13.3 % Low 24.0-44.0 [place] % 5.4 % Normal 2.0-8.0 Eos % 2.0 % Normal 0.0-3.0 Baso % 0.7 % Normal 0.0-1.0 Immature Granulocyte % 0.3 % Normal 0-3.0 Nucleated Red Blood Cell % 0.0 % Normal 0-0 Neutrophils # 4.8 10 Normal 1.5-8.5 Lymph # 0.8 10 Low 1.5-5.0 [place] # 0.3 10 Normal 0.0-0.8 Eos # 0.1 10 Normal 0.0-0.5 Baso # 0.0 10 Normal 0.0-0.2 Ua W/ Reflex To Culture 10/09/2020 [facility] Outpatient T esting (Registration) [address] [place] [address] 92595 [phone] Appearance, Urine RFX HAZY Normal Clear Color, Urine RFX YELLOW Normal Yellow PH,Urine RFX 7.0 units Normal 5.0-9.0 Specific [place]anca Ur Auto RFX 1.009 Normal 1.002-1.035 Protein, [...] Liver Profile 10/09/2020 [facility] Outpatient Testi (Registration) [address] [place], [place] [phone] Ast/Sgot 247 U/L High 7-37 Alt/SGPT 88 [...] Administration under the Emergency Use Authorization (EUA). [employer] and [employer] are designated as high complexity laboratories by [...] Little GFR Left ESRD GFR <15 on [employer] 3 DIAGNOSIS CRITERIA MMB ng/ml Relative Index (RI) NON-AMI < or = 5 N/A FLOWERS ZONE > 5 < or = 4 AMI > 5 > 4 4 Troponin I Reference Interva l for [employer] LOCI: 99th Percentile= 0.00-0.045 ng/ml Risk Stratification: <= 0.10 ng/ml Decreased Risk for Adverse Clinical Events. 0.10-1.50 ng/ml Increased Risk for Adv erse Clinical Events. Evaluation of additional criterion and/or repeat testing in 2-6 hours is suggested to rule out myocardial damage. >= 1.50 ng/ml Indicative of Myocardial Injury. Procedures Date Code Description Status 02/11/2021 55614 Office/Outpatient Established Lo w MDM 20-29 Min Completed 02/04/2021 97849 Office/Outpatient Established Mo d MDM 30-39 Min Completed 01/28/2021 34266 Office/Outpatient Established Mo d MDM 30-39 Min Completed 12/02/2020 38575 Office/Outpatient Established Lo w MDM 20-29 Min Completed 11/12/2020 22690 Office/Outpatient Established Mo d MDM 30-39 Min Completed 10/20/2020 69245 [facility] Cre W/I 7 Days Of DC, Comm W/I 2 Dys Completed 09/08/2020 79982 Office/Outpatient Established Mo d MDM 30-39 Min Completed 08/18/2020 05158 Office/Outpatient Established Lo w MDM 20-29 Min Completed Medical Devices Description No Information Available Encounters Type Date Location Provider Dx Diagnosis Office Visit 02/11/2021 1:20p [facility] Bhavik Celestin D.O. D62 Acute posthemorrhagic anemia D63.8 Anemia in other chronic dise ases classified elsewhere E03.9 Hypothyroidism, unspecified J45.40 Moderate persistent asthma, uncomplicated D51.9 Vitamin B12 deficiency anemi a, unspecified Office Visit 02/04/2021 1:10p [facility] Amelie ChapaO. D62 Acute posthemorrhagic anemia D63.8 Anemia in other chronic dise ases classified elsewhere E03.9 Hypothyroidism, unspecified J45.40 Moderate persistent asthma, uncomplicated D51.9 Vitamin B12 deficiency anemi a, unspecified I48.0 Paroxysmal atrial fibrillati on I35.0 Nonrheumatic aortic (valve) stenosis I34.0 Nonrheumatic mitral (valve) insufficiency Office Visit 01/28/2021 2:40p [facility] Ivette Celestin D.O. D63.8 Anemia in other chronic dise ases classified elsewhere E03.9 Hypothyroidism, unspecified J45.40 Moderate persistent asthma, uncomplicated D51.9 Vitamin B12 deficiency anemi a, unspecified Office Visit 12/02/2020 9:40a [facility] Ivette Celestin D.O. S51.011A Laceration without foreign [...] Personal history of nicotine dependence Z79.899 Other fpc (current) dr ug therapy I34.0 Nonrheumatic mitral (valve) insufficiency D63.8 Anemia in other chronic dise ases classified elsewhere E87.6 Hypokalemia Z96.642 Presence of left artificial hip joint 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 Office Visit 08/18/2020 1:40p [facility] Amelie DuncanODoris S81.812D Laceration without foreign b [...] dep endence Amelie DuncanODoris 09/08/2020 Z79.899 Other fpc (current) drug t herapy Amelie DuncanODoris 09/08/2020 I34.0 Nonrheumatic mitral (valve) insu fficiency Amelie DuncanODoris 09/08/2020 D63.8 Anemia in other chronic diseases classified elsewhere Amelie DuncanODoris 09/08/2020 E87.6 Hypokalemia Amleie BarrosoODoris 09/08/2020 Z96.642 Presence of left artificial hip joint Amelie DuncanODoris 09/08/2020 I25.10 Atherosclerotic hear t disease of [place] coronary artery without angina pectoris Ivette Celestin D.O. 08/18/2020 S81.812D Laceration without f oreign body, left lower leg, subsequent encounter Ivette Celestin D.O. 08/18/2020 I10 Essential (primary) hypertension Ivette Celestin D.O. Plan of Treatment Future Appointment(s):* 02/22/2021 11:40 am - Ivette Celestin D.O. at [facility] Functional Status Description No Information Available Mental Status Description No Information Available Referrals Description No Information Available
--- OUTSIDE RECORDS SUMMARY | 2021-02-27 20:15 | CCD | Continuity of Care Document ---
Author Author Ita CELESTIN D.O. Organization Unknown Address [address] [facility] [address] [place] [address] Phone [phone] Care Team Providers Care Box Press Operator Name Role Phone Ivette Celestin D.O. AUTM Seth Acosta M.D. AUTM [phone] Deangelo Baldwin D.O. AUTM [phone] Woo Cruz M.D. AUTM [phone] Cadence Huagn M.D. AUTM [phone] Problems Active Problems Provider Date Disorder of [...] by mouth every day 90caps D63.8 Amelie DuncanODrois 02/04 Sucralfate 1GM/10ML Suspension 10 milliliters by [...] Amelie DuncanO. 05/11 Vitamin D (Ergocalciferol) 1.25mg (55723 Ut) Capsules Take 1 Capsule By Mouth Once A Week 4caps Amelie DuncanODoris 01/13/2020 Symbicort 160-4.5mcg/Act Aerosol 1 puffs twice a day, rinse out mouth afterwards. 10.200gm Amelie LanierODoris 02/22/2019 Tylenol Extra Strength 500mg Table ts 2 tablets by mouth every 8 hours as needed 30tabs Amelie LanierO. 01/23/[id number] Part 1 tab by mouth [...] CPT Code Status Date Vaccine Lot # [id number] Given 10/05/2015 Pneumococcal Con jugate Vaccine 13 Valent For Intramuscular Use Vital Signs Date Vital Result Comment 02/04/2021 1:08pm BP Systolic 134 mmHg BP Diastolic 74 mmHg Height 57.6 inches 4'9.60" Weight 102.25 lb BMI (Body Mass Index) 21.7 kg/m2 Heart Rate 87 /min Respiratory Rate 18 /min Body Temperature 97.7 F O2 % BldC Oximetry 97 % [place] Body Weight 100 lb 01/28/2021 2:52pm BP Systolic 142 mmHg BP Diastolic 76 mmHg Height 57.6 inches 4'9.60" Weight 99.38 lb BMI (Body Mass Index) 21.1 kg/m2 Heart Rate 82 /min Respiratory Rate 18 /min Body Temperature 98.2 F O2 % BldC Oximetry 95 % [place] Body Weight 100 lb Results Test Acquired Date Facility Test Result H/L Range Note Coronavirus 2019 Nasopharygeal 01/22/2021 [facility] Outpa tient Testing (Registration) [address] [place] [address] [phone] Coronavirus 2019 Nasopharygeal ASSAY INFORMATIO <SEE N OTE> 1 Basic Metabolic Profile 10/09/2020 [facility] Outpatient T esting (Registration) [address] [place] [address] [phone] Glucose, Fasting 151 mg/dL High 70-100 Blood [...] mg/dL Low 8.8-10.2 Laboratory test finding 10/09/2020 [facility] Outpatient T esting (Registration) [address] [place] [address] [phone] Amylase 41 U/L Normal 25-115 Lipase 34 U/L Low 73-393 Cardiac Marker Panel 10/09/2020 [facility] Outpatient Test ing (Registration) [address] [place] [address] [phone] CPK Creatine Phosphokinase 98 U/L Normal 26-19 2 CK-MB Value Mass 1.6 NG/ML Normal <3.6 MB/CK Relative Index 1.63 Normal < Or =4 3 Troponin I < 0.02 NG/ML Normal < 0.10 4 CBC With Differential 10/09/2020 [facility] Outpatient Natalie farahg (Registration) [address] [place] [address] [phone] White Blood Count 6.1 10 Normal 4.0-10.0 [...] 36.0-66.0 Lymph % 13.3 % Low 24.0-44.0 [place] % 5.4 % Normal 2.0-8.0 Eos % 2.0 % Normal 0.0-3.0 Baso % 0.7 % Normal 0.0-1.0 Immature Granulocyte % 0.3 % Normal 0-3.0 Nucleated Red Blood Cell % 0.0 % Normal 0-0 Neutrophils # 4.8 10 Normal 1.5-8.5 Lymph # 0.8 10 Low 1.5-5.0 Summers # 0.3 10 Normal 0.0-0.8 Eos # 0.1 10 Normal 0.0-0.5 Baso # 0.0 10 Normal 0.0-0.2 Ua W/ Reflex To Culture 10/09/2020 [facility] Outpatient T esting (Registration) [address] [place] [address] [phone] Appearance, Urine RFX HAZY Normal Clear Color, Urine RFX YELLOW Normal Yellow PH,Urine RFX 7.0 units Normal 5.0-9.0 Specific [place] Ur Auto RFX 1.009 Normal 1.002-1.035 Protein, [...] RFX SMALL High Negative Liver Profile 10/09/2020 [facility] Outpatient Testi wali (Registration) [address] [place], [place] [phone] Ast/Sgot 247 U/L High 7-37 Alt/SGPT 88 [...] Administration under the Emergency Use Authorization (EUA). [facility] and [facility] are designated as high complexity laboratories by [...] Little GFR Left ESRD GFR <15 on HIDE INSPECTOR 3 DIAGNOSIS CRITERIA MMB ng/ml Relative Index (RI) NON-AMI < or = 5 N/A FLOWERS ZONE > 5 < or = 4 AMI > 5 > 4 4 Troponin I Reference Interva l for Siemens TagMii LOCI: 99th Percentile= 0.00-0.045 ng/ml Risk Stratification: <= 0.10 ng/ml Decreased Risk for Adverse Clinical Events. 0.10-1.50 ng/ml Increased Risk for Adv erse Clinical Events. Evaluation of additional criterion and/or repeat testing in 2-6 hours is suggested to rule out myocardial damage. >= 1.50 ng/ml Indicative of Myocardial Injury. Procedures Date Code Description Status 02/04/2021 35263 Office/Outpatient Established Mo d MDM 30-39 Min Completed 01/28/2021 49688 Office/Outpatient Established Mo d MDM 30-39 Min Completed 12/02/2020 96506 Office/Outpatient Established Lo w MDM 20-29 Min Completed 11/12/2020 18823 Office/Outpatient Established Mo d MDM 30-39 Min Completed 10/20/2020 47381 [facility] Cre W/I 7 Days Of DC, Comm W/I 2 Dys Completed 09/08/2020 22599 Office/Outpatient Established Mo d MDM 30-39 Min Completed 08/18/2020 24073 Office/Outpatient Established Lo w MDM 20-29 Min Completed Medical Devices Description No Information Available Encounters Type Date Location Provider Dx Diagnosis Office Visit 02/04/2021 1:10p [facility] Bhavki Celestin D.O. D62 Acute posthemorrhagic anemia D63.8 Anemia in other chronic dise ases classified elsewhere E03.9 Hypothyroidism, unspecified J45.40 Moderate persistent asthma, uncomplicated D51.9 Vitamin B12 deficiency anemi a, unspecified I48.0 Paroxysmal atrial fibrillati on I35.0 Nonrheumatic aortic (valve) stenosis I34.0 Nonrheumatic mitral (valve) insufficiency Office Visit 01/28/2021 2:40p [facility] Bhavik Celestin D.O. D63.8 Anemia in other chronic dise ases classified elsewhere E03.9 Hypothyroidism, unspecified J45.40 Moderate persistent asthma, uncomplicated D51.9 Vitamin B12 deficiency anemi a, unspecified Office Visit 12/02/2020 9:40a [facility] Bhavik Celestin D.O. S51.011A Laceration without foreign b tariq of right elbow, init encntr M81.0 Age-related osteoporosis w/o current pathological fracture Office Visit 11/12/2020 10:00a [facility] AURA Mccallum I10 Essential (primary) hyperten joel E03.9 Hypothyroidism, unspecified I48.0 Paroxysmal atrial fibrillati on J45.40 Moderate persistent asthma, uncomplicated I35.0 Nonrheumatic aortic (valve) stenosis D63.8 Anemia in other chronic dise ases classified elsewhere R60.9 Edema, unspecified Office Visit 10/20/2020 1:40p [facility] AURA Mccallum K80.80 Other cholelithiasis without obstruction Office Visit 09/08/2020 10:00a [facility] Ivette Celestin D.O. I10 Essential (primary) hyperten joel E03.9 Hypothyroidism, unspecified S81.812D Laceration without foreign b tariq, left lower leg, subs encntr I48.0 Paroxysmal atrial fibrillati on J45.40 Moderate persistent asthma, uncomplicated I35.0 Nonrheumatic aortic (valve) stenosis Z88.8 Allergy status to other drug /meds/biol subst Z87.891 Personal history of nicotine dependence Z79.899 Other chcf (current) dr ug therapy I34.0 Nonrheumatic mitral (valve) insufficiency D63.8 Anemia in other chronic dise ases classified elsewhere E87.6 Hypokalemia Z96.642 Presence of left artificial hip joint 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 Office Visit 08/18/2020 1:40p [facility] Ivette Celestin D.O. S81.812D Laceration without [...] endence Ivette Celestin, D.O. 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 09/08/2020 I34.0 Nonrheumatic mitral (valve) insu fficiency Ivette Celestin, D.O. 09/08/2020 D63.8 Anemia in other chronic diseases classified elsewhere Ivette Celestin D.O. 09/08/2020 E87.6 Hypokalemia Ivette ortiz D.O. 09/08/2020 Z96.642 Presence of left artificial hip joint Ivette Celestin D.O. 09/08/2020 I25.10 Atherosclerotic hear t disease of [place] coronary artery without angina pectoris Ivette Celestin D.O. 08/18/2020 S81.812D Laceration without f oreign body, left lower leg, subsequent encounter Ivette Celestin D.O. 08/18/2020 I10 Essential (primary) hypertension Ivette Celestin D.O. Plan of Treatment Future Appointment(s):* 02/11/2021 1:20 pm - Ivette Celestin D.O. at [facility] * 02/12/2021 9:30 am - Ivette Celestin D.O. at [facility] 02/04/2021 - Ivette Celestin D.O.* D62 [...]
--- OUTSIDE RECORDS SUMMARY | 2021-02-27 20:15 | CCD | Continuity of Care Document ---
Author Author Ita CELESTIN D.O. Organization Unknown Address [address] [facility] [address] [place] [address] Phone [phone] Care Team Providers Care Health Program Specialist Name Role Phone Ivette Celestin D.O. AUTM [phone] Seth Acosta M.D. AUTM [phone] Deangelo Baldwin D.O. AUTM [phone] Woo Cruz M.D. AUTM [phone] Cadence Huang M.D. AUTM [phone] Problems Active Problems Provider Date Disorder of [...] Amelie DuncanO. 05/11 Vitamin D (Ergocalciferol) 1.25mg (78661 Ut) Capsules Take 1 Capsule By Mouth Once A Week 4caps Amelie DuncanODoris 01/13/2020 Symbicort 160-4.5mcg/Act Aerosol 1 puffs twice a day, rinse out mouth afterwards. 10.200gm Amelie LanierODoris 02/22/2019 Tylenol Extra Strength 500mg Table ts 2 tablets by mouth every 8 hours as needed 30tabs Amelie LanierO. 01/23/[id number] Part 1 tab by mouth [...] CPT Code Status Date Vaccine Lot # 68714 Given 10/05/2015 Pneumococcal Con jugate Vaccine 13 Valent For Intramuscular Use Vital Signs Date Vital Result Comment 02/04/2021 1:08pm BP Systolic 134 mmHg BP Diastolic 74 mmHg Height 57.6 inches 4'9.60" Weight 102.25 lb BMI (Body Mass Index) 21.7 kg/m2 Heart Rate 87 /min Respiratory Rate 18 /min Body Temperature 97.7 F O2 % BldC Oximetry 97 % [place] Body Weight 100 lb 01/28/2021 2:52pm BP Systolic 142 mmHg BP Diastolic 76 mmHg Height 57.6 inches 4'9.60" Weight 99.38 lb BMI (Body Mass Index) 21.1 kg/m2 Heart Rate 82 /min Respiratory Rate 18 /min Body Temperature 98.2 F O2 % BldC Oximetry 95 % [place] Body Weight 100 lb Results Test Acquired Date Facility Test Result H/L Range Note Coronavirus 2019 Nasopharygeal 01/22/2021 [facility] Outpa tient Testing (Registration) [address] [place] [address] [phone] Coronavirus 2019 Nasopharygeal ASSAY INFORMATIO <SEE N OTE> 1 Basic Metabolic Profile 10/09/2020 [facility] Outpatient T esting (Registration) [address] [place] [address] [phone] Glucose, Fasting 151 mg/dL High 70-100 Blood [...] mg/dL Low 8.8-10.2 Laboratory test finding 10/09/2020 [facility] Outpatient T esting (Registration) [address] [place] [address] [phone] Amylase 41 U/L Normal 25-115 Lipase 34 U/L Low 73-393 Cardiac Marker Panel 10/09/2020 [facility] Outpatient Test ing (Registration) [address] [place] [address] [phone] CPK Creatine Phosphokinase 98 U/L Normal 26-19 2 CK-MB Value Mass 1.6 NG/ML Normal <3.6 MB/CK Relative Index 1.63 Normal < Or =4 3 Troponin I < 0.02 NG/ML Normal < 0.10 4 CBC With Differential 10/09/2020 [facility] Outpatient Natalie farahg (Registration) [address] [place] [address] [phone] White Blood Count 6.1 10 Normal 4.0-10.0 [...] 36.0-66.0 Lymph % 13.3 % Low 24.0-44.0 Gregory % 5.4 % Normal 2.0-8.0 Eos % 2.0 % Normal 0.0-3.0 Baso % 0.7 % Normal 0.0-1.0 Immature Granulocyte % 0.3 % Normal 0-3.0 Nucleated Red Blood Cell % 0.0 % Normal 0-0 Neutrophils # 4.8 10 Normal 1.5-8.5 Lymph # 0.8 10 Low 1.5-5.0 Gregory # 0.3 10 Normal 0.0-0.8 Eos # 0.1 10 Normal 0.0-0.5 Baso # 0.0 10 Normal 0.0-0.2 Ua W/ Reflex To Culture 10/09/2020 [facility] Outpatient T esting (Registration) [address] [place] [address] [phone] Appearance, Urine RFX HAZY Normal Clear Color, Urine RFX YELLOW Normal Yellow PH,Urine RFX 7.0 units Normal 5.0-9.0 Specific [place] Ur Auto RFX 1.009 Normal 1.002-1.035 Protein, [...] RFX SMALL High Negative Liver Profile 10/09/2020 [facility] Outpatient Testi wali (Registration) [address] [place], [place] [id number] [phone] Ast/Sgot 247 U/L High 7-37 Alt/SGPT 88 [...] Administration under the Emergency Use Authorization (EUA). [address] and [facility] are designated as high complexity laboratories by [...] Little GFR Left ESRD GFR <15 on CLINICAL EVALUATOR 3 DIAGNOSIS CRITERIA MMB ng/ml Relative Index (RI) NON-AMI < or = 5 N/A FLOWERS ZONE > 5 < or = 4 AMI > 5 > 4 4 Troponin I Reference Interva l for Siemens Digital Vega LOCI: 99th Percentile= 0.00-0.045 ng/ml Risk Stratification: <= 0.10 ng/ml Decreased Risk for Adverse Clinical Events. 0.10-1.50 ng/ml Increased Risk for Adv erse Clinical Events. Evaluation of additional criterion and/or repeat testing in 2-6 hours is suggested to rule out myocardial damage. >= 1.50 ng/ml Indicative of Myocardial Injury. Procedures Date Code Description Status 02/04/2021 93830 Office/Outpatient Established Mo d MDM 30-39 Min Completed 01/28/2021 23905 Office/Outpatient Established Mo d MDM 30-39 Min Completed 12/02/2020 52554 Office/Outpatient Established Lo w MDM 20-29 Min Completed 11/12/2020 48211 Office/Outpatient Established Mo d MDM 30-39 Min Completed 10/20/2020 72418 [facility] Cre W/I 7 Days Of DC, Comm W/I 2 Dys Completed 09/08/2020 26080 Office/Outpatient Established Mo d MDM 30-39 Min Completed 08/18/2020 65603 Office/Outpatient Established Lo w MDM 20-29 Min Completed Medical Devices Description No Information Available Encounters Type Date Location Provider Dx Diagnosis Office Visit 02/04/2021 1:10p [facility] Bhavik Celestin D.O. D62 Acute posthemorrhagic anemia D63.8 Anemia in other chronic dise ases classified elsewhere E03.9 Hypothyroidism, unspecified J45.40 Moderate persistent asthma, uncomplicated D51.9 Vitamin B12 deficiency anemi a, unspecified I48.0 Paroxysmal atrial fibrillati on I35.0 Nonrheumatic aortic (valve) stenosis I34.0 Nonrheumatic mitral (valve) insufficiency Office Visit 01/28/2021 2:40p [facility] Bhavik Celestin D.O. D63.8 Anemia in other chronic dise ases classified elsewhere E03.9 Hypothyroidism, unspecified J45.40 Moderate persistent asthma, uncomplicated D51.9 Vitamin B12 deficiency anemi a, unspecified Office Visit 12/02/2020 9:40a [facility] Bhavik Celestin D.O. S51.011A Laceration without foreign b tariq of right elbow, init encntr M81.0 Age-related osteoporosis w/o current pathological fracture Office Visit 11/12/2020 10:00a [facility] AURA Mccallum I10 Essential (primary) hyperten joel E03.9 Hypothyroidism, unspecified I48.0 Paroxysmal atrial fibrillati on J45.40 Moderate persistent asthma, uncomplicated I35.0 Nonrheumatic aortic (valve) stenosis D63.8 Anemia in other chronic dise ases classified elsewhere R60.9 Edema, unspecified Office Visit 10/20/2020 1:40p [facility] AURA Mccallum K80.80 Other cholelithiasis without obstruction Office Visit 09/08/2020 10:00a [facility] Ivette Celestin D.O. I10 Essential (primary) hyperten joel E03.9 Hypothyroidism, unspecified S81.812D Laceration without foreign b tariq, left lower leg, subs encntr I48.0 Paroxysmal atrial fibrillati on J45.40 Moderate persistent asthma, uncomplicated I35.0 Nonrheumatic aortic (valve) stenosis Z88.8 Allergy status to other drug /meds/biol subst Z87.891 Personal history of nicotine dependence Z79.899 Other residential (current) dr ug therapy I34.0 Nonrheumatic mitral (valve) insufficiency D63.8 Anemia in other chronic dise ases classified elsewhere E87.6 Hypokalemia Z96.642 Presence of left artificial hip joint 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 Office Visit 08/18/2020 1:40p [facility] Ivette Celestin D.O. S81.812D Laceration without foreign [...] endence Ivette Celestin, D.O. 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 09/08/2020 I34.0 Nonrheumatic mitral (valve) insu fficiency Ivette Celestin, D.O. 09/08/2020 D63.8 Anemia in other chronic diseases classified elsewhere Ivette Celestin D.O. 09/08/2020 E87.6 Hypokalemia Ivette ortiz D.O. 09/08/2020 Z96.642 Presence of left artificial hip joint Ivette Celestin D.O. 09/08/2020 I25.10 Atherosclerotic hear t disease of [place] coronary artery without angina pectoris Ivette Celestin D.O. 08/18/2020 S81.812D Laceration without f oreign body, left lower leg, subsequent encounter Ivette Celestin D.O. 08/18/2020 I10 Essential (primary) hypertension Ivette Celestin D.O. Plan of Treatment Future Appointment(s):* 02/11/2021 1:20 pm - Ivette Celestin D.O. at [facility] * 02/12/2021 9:30 am - Ivette Celestin D.O. at [facility] 02/04/2021 - Ivette Celestin D.O.* D62 [...] a copy of my note to Dr. aCdence Huang and to Dr. Acosta so that [...]
--- OUTSIDE RECORDS SUMMARY | 2021-02-27 20:15 | CCD | Continuity of Care Document ---
Author Author Ita CELESTIN D.O. Organization Unknown Address [address] [facility] [address] [place] [address] Phone [phone] Care Team Providers Care Replanter Name Role Phone Ivette Celestin D.O. AUTM [phone] Seth Acosta M.D. AUTM [phone] Deangelo Baldwin D.O. AUTM [phone] Woo Cruz M.D. AUTM [phone] Cadence Huang M.D. AUTM [phone] Problems Active Problems Provider Date Disorder of [...] Duncan.O. 01/11 /2021 Vitamin D (Ergocalciferol) 1.25mg (48494 Ut) Capsules Take 1 Capsule By Mouth Once A Week 4caps Ivette Celestin D.O. 01/13/2020 Symbicort 160-4.5mcg/Act Aerosol 1 puffs twice a day, rinse out mouth afterwards. 10.200gm Amelie LanierODoris 02/22/2019 Tylenol Extra Strength 500mg Table ts 2 tablets by mouth every 8 hours as needed 30tabs Amelie LanierODoris 01/23/[id number] Bernard 1 tab by mouth [...] CPT Code Status Date Vaccine Lot # [id number] Given 10/05/2015 Pneumococcal Con jugate Vaccine 13 Valent For Intramuscular Use Vital Signs Date Vital Result Comment 02/11/2021 1:25pm BP Systolic 134 mmHg BP Diastolic 82 mmHg Height 57.6 inches 4'9.60" Weight 100.38 lb BMI (Body Mass Index) 21.3 kg/m2 Heart Rate 67 /min Respiratory Rate 18 /min Body Temperature 97.6 F O2 % BldC Oximetry 99 % [place] Body Weight 100 lb 02/04/2021 1:08pm BP Systolic 134 mmHg BP Diastolic 74 mmHg Height 57.6 inches 4'9.60" Weight 102.25 lb BMI (Body Mass Index) 21.7 kg/m2 Heart Rate 87 /min Respiratory Rate 18 /min Body Temperature 97.7 F O2 % BldC Oximetry 97 % [place] Body Weight 100 lb Results Test Acquired Date Facility Test Result H/L Range Note Coronavirus 2019 Nasopharygeal 01/22/2021 [facility] Outpa tient Testing (Registration) [address] [place] [address] 45157 [phone] Coronavirus 2019 Nasopharygeal ASSAY INFORMATIO <SEE N OTE> 1 Basic Metabolic Profile 10/09/2020 [facility] Outpatient T esting (Registration) [address] [place] [address] 11519 [phone] Glucose, Fasting 151 mg/dL High 70-100 Blood [...] mg/dL Low 8.8-10.2 Laboratory test finding 10/09/2020 [facility] Outpatient T esting (Registration) [address] [place] [address] [phone] Amylase 41 U/L Normal 25-115 Lipase 34 U/L Low 73-393 Cardiac Marker Panel 10/09/2020 [facility] Outpatient Test ing (Registration) [address] [place] [address] 36201 [phone] CPK Creatine Phosphokinase 98 U/L Normal 26-19 2 CK-MB Value Mass 1.6 NG/ML Normal <3.6 MB/CK Relative Index 1.63 Normal < Or =4 3 Troponin I < 0.02 NG/ML Normal < 0.10 4 CBC With Differential 10/09/2020 [facility] Outpatient Natalie ting (Registration) [address] [place] [address] 37148 [phone] White Blood Count 6.1 10 Normal 4.0-10.0 [...] 36.0-66.0 Lymph % 13.3 % Low 24.0-44.0 [place] % 5.4 % Normal 2.0-8.0 Eos % 2.0 % Normal 0.0-3.0 Baso % 0.7 % Normal 0.0-1.0 Immature Granulocyte % 0.3 % Normal 0-3.0 Nucleated Red Blood Cell % 0.0 % Normal 0-0 Neutrophils # 4.8 10 Normal 1.5-8.5 Lymph # 0.8 10 Low 1.5-5.0 [place] # 0.3 10 Normal 0.0-0.8 Eos # 0.1 10 Normal 0.0-0.5 Baso # 0.0 10 Normal 0.0-0.2 Ua W/ Reflex To Culture 10/09/2020 [facility] Outpatient T esting (Registration) [address] [place] [address] 78238 [phone] Appearance, Urine RFX HAZY Normal Clear Color, Urine RFX YELLOW Normal Yellow PH,Urine RFX 7.0 units Normal 5.0-9.0 Specific [place] Ur Auto RFX 1.009 Normal 1.002-1.035 Protein, [...] RFX SMALL High Negative Liver Profile 10/09/2020 [facility] Outpatient Testi (Registration) [address] [place], [place] [id number] [phone] Ast/Sgot 247 U/L High 7-37 Alt/SGPT 88 [...] Administration under the Emergency Use Authorization (EUA). [facility] and [facility] are designated as high complexity laboratories by [...] Little GFR Left ESRD GFR <15 on SCOOPER 3 DIAGNOSIS CRITERIA MMB ng/ml Relative Index (RI) NON-AMI < or = 5 N/A FLOWERS ZONE > 5 < or = 4 AMI > 5 > 4 4 Troponin I Reference Interva l for [employer] LOCI: 99th Percentile= 0.00-0.045 ng/ml Risk Stratification: <= 0.10 ng/ml Decreased Risk for Adverse Clinical Events. 0.10-1.50 ng/ml Increased Risk for Adv erse Clinical Events. Evaluation of additional criterion and/or repeat testing in 2-6 hours is suggested to rule out myocardial damage. >= 1.50 ng/ml Indicative of Myocardial Injury. Procedures Date Code Description Status 02/11/2021 99976 Office/Outpatient Established Lo w MDM 20-29 Min Completed 02/04/2021 00625 Office/Outpatient Established Mo d MDM 30-39 Min Completed 01/28/2021 61361 Office/Outpatient Established Mo d MDM 30-39 Min Completed 12/02/2020 93227 Office/Outpatient Established Lo w MDM 20-29 Min Completed 11/12/2020 22192 Office/Outpatient Established Mo d MDM 30-39 Min Completed 10/20/2020 22871 [facility] Cre W/I 7 Days Of DC, Comm W/I 2 Dys Completed 09/08/2020 95122 Office/Outpatient Established Mo d MDM 30-39 Min Completed 08/18/2020 78411 Office/Outpatient Established Lo w MDM 20-29 Min Completed Medical Devices Description No Information Available Encounters Type Date Location Provider Dx Diagnosis Office Visit 02/11/2021 1:20p [facility] Bhavik Celestin D.O. D62 Acute posthemorrhagic anemia D63.8 Anemia in other chronic dise ases classified elsewhere E03.9 Hypothyroidism, unspecified J45.40 Moderate persistent asthma, uncomplicated D51.9 Vitamin B12 deficiency anemi a, unspecified Office Visit 02/04/2021 1:10p [facility] Amelie ChapaO. D62 Acute posthemorrhagic anemia D63.8 Anemia in other chronic dise ases classified elsewhere E03.9 Hypothyroidism, unspecified J45.40 Moderate persistent asthma, uncomplicated D51.9 Vitamin B12 deficiency anemi a, unspecified I48.0 Paroxysmal atrial fibrillati on I35.0 Nonrheumatic aortic (valve) stenosis I34.0 Nonrheumatic mitral (valve) insufficiency Office Visit 01/28/2021 2:40p [facility] Ivette Celestin D.O. D63.8 Anemia in other chronic dise ases classified elsewhere E03.9 Hypothyroidism, unspecified J45.40 Moderate persistent asthma, uncomplicated D51.9 Vitamin B12 deficiency anemi a, unspecified Office Visit 12/02/2020 9:40a [facility] Ivette Celestin D.O. S51.011A Laceration without [...] nicotine dependence Z79.899 Other shelter (current) dr ug therapy I34.0 Nonrheumatic mitral (valve) insufficiency D63.8 Anemia in other chronic dise ases classified elsewhere E87.6 Hypokalemia Z96.642 Presence of left artificial hip joint 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 Office Visit 08/18/2020 1:40p [facility] Amelie DuncanODoris S81.812D Laceration without foreign [...] dep endence Amelie DuncanODoris 09/08/2020 Z79.899 Other shelter (current) drug t herapy Amelie DuncanODoris 09/08/2020 I34.0 Nonrheumatic mitral (valve) insu fficiency Amelie DuncanODorsi 09/08/2020 D63.8 Anemia in other chronic diseases classified elsewhere Amelie DuncanODoris 09/08/2020 E87.6 Hypokalemia Amelie BarrosoODoris 09/08/2020 Z96.642 Presence of left artificial hip joint Amelie DuncanODoris 09/08/2020 I25.10 Atherosclerotic hear t disease of [place] coronary artery without angina pectoris Ivette Celestin [...]
--- OUTSIDE RECORDS SUMMARY | 2021-02-27 20:15 | CCD | Continuity of Care Document ---
Author Author Ita CELESTIN D.O. Organization Unknown Address [address] [facility] [address] [place] [address] Phone [phone] Care Team Providers Care Choral Teacher Name Role Phone Ivette Celestin D.O. AUTM Seth Acosta M.D. AUTM [phone] Deangelo Baldwin D.O. AUTM [phone] Woo Cruz M.D. AUTM [phone] Cadence Huang M.D. AUTM [phone] Problems Active Problems Provider Date Disorder of [...] Amelie DuncanO. 05/11 Vitamin D (Ergocalciferol) 1.25mg (72594 Ut) Capsules Take 1 Capsule By Mouth [...] as needed 30tabs Amelie LanierODoris 01/23/[id number] Part 1 tab by mouth [...] CPT Code Status Date Vaccine Lot # [id number] Given 10/05/2015 Pneumococcal Con jugate Vaccine 13 Valent For Intramuscular Use Vital Signs Date Vital Result Comment 01/28/2021 2:52pm BP Systolic 142 mmHg BP Diastolic 76 mmHg Height 57.6 inches 4'9.60" Weight 99.38 lb BMI (Body Mass Index) 21.1 kg/m2 Heart Rate 82 /min Respiratory Rate 18 /min Body Temperature 98.2 F O2 % BldC Oximetry 95 % [place] Body Weight 100 lb 12/02/2020 9:53am BP Systolic 130 mmHg BP Diastolic 98 mmHg Height 57.6 inches 4'9.60" Weight 98.25 lb BMI (Body Mass Index) 20.8 kg/m2 Heart Rate 78 /min Respiratory Rate 14 /min Body Temperature 96.8 F O2 % BldC Oximetry 98 % [place] Body Weight 100 lb Results Test Acquired Date Facility Test Result H/L Range Note Coronavirus 2019 Nasopharygeal 01/22/2021 [facility] Outpa tient Testing (Registration) [address] [place] [address] 13225 [phone] Coronavirus 2019 Nasopharygeal ASSAY INFORMATIO <SEE N OTE> 1 Basic Metabolic Profile 10/09/2020 [facility] Outpatient T esting (Registration) [address] [place] [address] [phone] Glucose, Fasting 151 mg/dL High 70-100 Blood [...] mg/dL Low 8.8-10.2 Laboratory test finding 10/09/2020 [facility] Outpatient T esting (Registration) [address] [place] [address] [phone] Amylase 41 U/L Normal 25-115 Lipase 34 U/L Low 73-393 Cardiac Marker Panel 10/09/2020 [facility] Outpatient Test ing (Registration) [address] [place] [address] [phone] CPK Creatine Phosphokinase 98 U/L Normal 26-19 2 CK-MB Value Mass 1.6 NG/ML Normal <3.6 MB/CK Relative Index 1.63 Normal < Or =4 3 Troponin I < 0.02 NG/ML Normal < 0.10 4 CBC With Differential 10/09/2020 [facility] Outpatient Natalie paris (Registration) [address] [place] [address] 83432 [phone] White Blood Count 6.1 10 Normal 4.0-10.0 [...] 36.0-66.0 Lymph % 13.3 % Low 24.0-44.0 [place] % 5.4 % Normal 2.0-8.0 Eos % 2.0 % Normal 0.0-3.0 Baso % 0.7 % Normal 0.0-1.0 Immature Granulocyte % 0.3 % Normal 0-3.0 Nucleated Red Blood Cell % 0.0 % Normal 0-0 Neutrophils # 4.8 10 Normal 1.5-8.5 Lymph # 0.8 10 Low 1.5-5.0 [place] # 0.3 10 Normal 0.0-0.8 Eos # 0.1 10 Normal 0.0-0.5 Baso # 0.0 10 Normal 0.0-0.2 Ua W/ Reflex To Culture 10/09/2020 [facility] Outpatient T michael (Registration) [address] [place] [address] 46590 [phone] Appearance, Urine RFX HAZY Normal Clear Color, Urine RFX YELLOW Normal Yellow PH,Urine RFX 7.0 units Normal 5.0-9.0 Specific [place] Ur Auto RFX 1.009 Normal 1.002-1.035 Protein, [...] RFX SMALL High Negative Liver Profile 10/09/2020 [facility] Outpatient Testi wali (Registration) [address] [id number] [phone] Ast/Sgot 247 U/L High 7-37 Alt/SGPT 88 [...] Administration under the Emergency Use Authorization (EUA). [employer] and [employer] are designated as high complexity laboratories by [...] Little GFR Left ESRD GFR <15 on [employer] 3 DIAGNOSIS CRITERIA MMB ng/ml Relative Index (RI) NON-AMI < or = 5 N/A FLOWERS ZONE > 5 < or = 4 AMI > 5 > 4 4 Troponin I Reference Interva l for [employer] LOCI: 99th Percentile= 0.00-0.045 ng/ml Risk Stratification: <= 0.10 ng/ml Decreased Risk for Adverse Clinical Events. 0.10-1.50 ng/ml Increased Risk for Adv erse Clinical Events. Evaluation of additional criterion and/or repeat testing in 2-6 hours is suggested to rule out myocardial damage. >= 1.50 ng/ml Indicative of Myocardial Injury. Procedures Date Code Description Status 01/28/2021 86957 Office/Outpatient Established Mo d MDM 30-39 Min Completed 12/02/2020 73212 Office/Outpatient Established Lo w MDM 20-29 Min Completed 11/12/2020 59546 Office/Outpatient Established Mo d MDM 30-39 Min Completed 10/20/2020 09545 [facility] Cre W/I 7 Days Of DC, Comm W/I 2 Dys Completed 09/08/2020 35502 Office/Outpatient Established Mo d MDM 30-39 Min Completed 08/18/2020 49202 Office/Outpatient Established Lo w MDM 20-29 Min Completed Medical Devices Description No Information Available Encounters Type Date Location Provider Dx Diagnosis Office Visit 01/28/2021 2:40p [facility] Ivette Celestin D.O. D63.8 Anemia in other chronic dise ases classified elsewhere E03.9 Hypothyroidism, unspecified J45.40 Moderate persistent asthma, uncomplicated D51.9 Vitamin B12 deficiency anemi a, unspecified Office Visit 12/02/2020 9:40a [facility] Amelie DuncanO. S51.011A Laceration without foreign b [...] Office Visit 09/08/2020 10:00a [facility] Amelie DuncanO. I10 Essential (primary) hyperten joel E03.9 Hypothyroidism, unspecified S81.812D Laceration without foreign b tariq, left lower leg, subs encntr I48.0 Paroxysmal atrial fibrillati on J45.40 Moderate persistent asthma, uncomplicated I35.0 Nonrheumatic aortic (valve) stenosis Z88.8 Allergy status to other drug /meds/biol subst Z87.891 Personal history of nicotine dependence Z79.899 Other jail (current) dr moffett therapy I34.0 Nonrheumatic mitral (valve) insufficiency D63.8 Anemia in other chronic dise ases classified elsewhere E87.6 Hypokalemia Z96.642 Presence of left artificial hip joint 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 Office Visit 08/18/2020 1:40p [facility] Medicine [facility] Ivette Celestin D.O. S81.812D Laceration without foreign [...] endence Ivette Celestin, D.O. 09/08/2020 Z79.899 Other jail (current) drug t herapy Ivette Celestin D.O. 09/08/2020 I34.0 Nonrheumatic mitral (valve) insu fficiency Ivette Celestin D.O. 09/08/2020 D63.8 Anemia in other chronic diseases classified elsewhere Ivette Celestin D.O. 09/08/2020 E87.6 Hypokalemia Ivette ortiz D.O. 09/08/2020 Z96.642 Presence of left artificial hip joint Ivette Celestin D.O. 09/08/2020 I25.10 Atherosclerotic hear t disease of [place] coronary artery without angina pectoris Ivette Celestin D.O. 08/18/2020 S81.812D Laceration without f oreign body, left lower leg, subsequent encounter Ivette Celestin D.O. 08/18/2020 I10 Essential (primary) hypertension Ivette Celestin D.O. Plan of Treatment Future Appointment(s):* 02/04/2021 1:10 pm - Ivette Ceelstin D.O. at [facility] * 02/12/2021 9:30 am - Ivette Celestin D.O. at [facility] Functional Status Description No Information Available Mental Status Description No Information Available Referrals Description No Information Available
--- OUTSIDE RECORDS SUMMARY | 2021-02-27 20:16 | CCD | Continuity of Care Document ---
Author Author Ita BALDWIN DO Organization Unknown Address [address] [place] [address] Phone [phone] Care Team Providers Care Automobile Tester Name Role Phone Ivette Celestin D.O. AUTM [phone] Seth Acosta M.D. AUTM [phone] Problems Active Problems Provider Date Allergic asthma without status asthmaticus Johan Mayfield MD Onset: 10/18/2012 Cough Deangelo Baldwin DO Onset: 11/30/2020 Uncomplicated moderate persistent asthma Anish Amaya Onset: 11/30/2020 Social History Type Date Description Comments Sex Unknown ETOH Use Denies alcohol use Tobacco Use Start: Unknown 1994 Recreational Drug Use Denies Drug Use Tobacco Use Start: Unknown End: Unknown Patient is a former smoker Smoking Status Reviewed: 05/28/20 Patient is a former smoker Allergies, Adverse Reactions, Alerts Active Allergies Criticality Reaction | Severity Comments Date Statins Unable to assess criticality muscle pain, hives 05/22/2017 Inactive Allergies NKDA Unable to assess criticality 10/18/2012 Medications Active Medications SIG Qnty Indications Ordering Provide r Date Vitamin D 46523Luaa Capsules 1 po q weekly 4caps Johan Mayfield MD 10/18/2012 Ventolin HFA 108(90Base) mcg/Act A erosol 2 puffs every 4 hours, as needed 18units Deangelo Baldwin DO 07/03/2012 Albuterol Sulfate (2 .5mg/3ML) 0.083% Nebulizer 1 vial four times a day as needed dx:j45.30 360units J45.40 NICHELLE Stephen 10/04/2010 Symbicort 160-4.5mcg/Act Aerosol 2 puff twice a day as needed 30.6gm Deangelo Baldwin, DO 10/04 Xarelto 20mg Tablets 1 tab by mouth every day For A Fib DR Acosta 90tabs Unknown 00 Levothyroxine Sodium 75mcg Tablets 1 tab by mouth every day Donny Christian 0 Lasix 40mg Tablets 1 b y mouth twice a day 30tabs Unknown Loperamide HCL 2mg Capsules 1 cap by mouth every day 60caps Unknown Labetalol HCL 100mg Tablets 1 tab by mouth every day Unknown Zenpep [id number] Caps DR Miller dunaway 1 tab by mouth three times a day with meals Unknown Losartan Potassium 50mg Tablets 1 tab by mouth every day Unknown Cyanocobalamin 1000mcg/ML Solution 1 injection every month Unknown History Medications Prednisone 10mg Tablets 40mg by mouth every day x 3 days then 30mg every day x 3days then 20mg every day x 3 days then 10mg x3days&stop 30tabs NICHELLE Stephen 07/29/2020 - Ciprofloxacin HCL 250mg Tablets 1 tab by mouth twice a day 14tabs NICHELLE Stephen 07/29/2020 - 0 10/30/2020 Medications Administered in Office Medication SIG Qnty Indications Ordering Provider Date Covid-19 vaccine, Unspecified Inj ection Unknown 06/15/2020 Covid-19 vaccine, Unspecified Inj ection Unknown 05/25/2020 Immunizations CPT Code Status Date Vaccine Lot # [id number] Given 01/16/2019 Afluria, Quadrivalent, 0.5ml , [facility]# [id number] [id number] Given 02/11/2015 Influenza Virus Split 3 Yrs And Above For Intramuscular Use 92609 Given 02/08/2012 Influenza Virus Split 3 Yrs And Above For Intramuscular Use 99290 Given 03/01/2011 Influenza Virus Split 3 Yrs And Above For Intramuscular Use 12310 Given 03/10/2010 Influenza Virus Split 3 Yrs And Above For Intramuscular Use Vital Signs Date Vital Result Comment 11/30/2020 9:11am BP Systolic 150 mmHg BP Diastolic 100 mmHg Heart Rate 64 /min O2 % BldC Oximetry 97 % Height 57 inches 4'9" Weight 101.00 lb BMI (Body Mass Index) 21.9 kg/m2 [place] Body Weight 100 lb Weight 45.814 kg BSA (Body Surface Area) 1.35 m2 05/28/2020 8:55am BP Systolic 130 mmHg BP Diastolic 72 mmHg Heart Rate 78 /min O2 % BldC Oximetry 98 % Body Temperature 96.7 F Height 57 inches 4'9" Weight 105.00 lb BMI (Body Mass Index) 22.7 kg/m2 [place] Body Weight 100 lb Weight 47.628 kg BSA (Body Surface Area) 1.37 m2 Results Test Acquired Date Facility Test Result H/L Range Note FVL/Kolby 11/30/2020 [facility] SEE IMAGE FVC-Pred 1.76 L FVC-Pre 1.32 L FVC-%Pred-Pre 75 L FVC-LLN 1.21 L Fev1-Pred 1.28 L Fev1-Pre 0.90 L Fev1-%Pred-Pre 70 L Fev1-LLN 0.81 L Fev6-Pred 1.64 L Fev6-Pre 1.32 L Fev6-%Pred-Pre 80 L Fev6-LLN 1.10 L Oei9dmt-Jqdn 74 % Fim7tts-Ncx 68 % Yos7ffm-%Pred-Pre 92 % Sfw9yjt-DFK 64 % Fdt0zbm-Izzm 93 % Vtl9xqf-Qsc 100 % Tqt5lrz-%Pred-Pre 107 % FEFMax-Pred 3.68 L/E/sec FEFMax-Pre 1.60 L/E/sec FEFMax-%Pred-Pre 43 L/E/sec FEFMax-LLN 2.32 L/E/sec Mtc5471-Uevd 0.98 L/E/sec Rak9892-Yqn 0.56 L/E/sec Afk7466-%Pred-Pre 57 L/E/sec Yan7468-RVF -0.01 L/E/sec ExpTime-Pre 7.99 sec Exm9znl1-Pdjt 77 % Hnb3pxr6-Bto 68 % Rma4xcs8-%Pred-Pre 87 % Vpr3wqf9-ZNK 69 % Procedures Date Code Description Status 11/30/2020 93294 Office/Outpatient Established Mo d MDM 30-39 Min Completed 11/30/2020 12166 Spirometry Completed Medical Devices Description No Information Available Encounters Type Date Location Provider Dx Diagnosis Office Visit 11/30/2020 9:00a [facility] jaimee Baldwin, J45.40 Moderate persistent asthma, uncomplicated R05 Cough Assessments Date Code Description Provider 11/30/2020 J45.40 Moderate persistent asthma, unco mplicated Deangelo Baldwin, 11/30/2020 R05 Cough Deangelo Baldwin DO Plan of Treatment 11/30/2020 - Deangelo Baldwin, * J45.40 Moderate persistent asthma, uncomplicated * R05 Cough * * Comments:* ~ Having reviewed the history, physical, and diagnostic findings with the patient, I have recommended continuing her current inhaled medications. I have suggested that she begin the day with use of her nebulizer and use of Acapella device, which she has. We have discussed use of Guaifenesin liquid as opposed to pills, as she was having some difficulty swallowing them. ~ We discussed infection surveillance, and I encouraged early calling.~ Follow-up will be scheduled in six months with spirometry flow volume loop testing, earlier if new symptoms intervene. * Follow up:* Mucinex liquid Acapella Routine follow-up in six months with spirometry/FVL. Functional Status Description No Information Available Mental Status Description No Information Available Referrals Description No Information Available
--- OUTSIDE RECORDS SUMMARY | 2021-02-27 20:16 | CCD | Continuity of Care Document ---
Author Organization Unknown Address Unknown Phone Unavailable Care Team Providers Care Finish Remover Name Role Phone Ivette Celestin D.O. AUTM [phone] Seth Acosta M.D. AUTM [phone] Deangelo Baldwin D.O. AUTM [phone] Woo Cruz M.D. AUTM [phone] Cadence Huang M.D. AUTM [phone] Problems Active Problems Provider Date Disorder of [...] Start: Unknown End: Quit Smoking Status Reviewed: 11/12/20 Quit ETOH Use Denies alcohol use Recreational [...] SIG Qnty Indications Ordering Provide r Date Potassium Chloride Naz ER 10Meq Tablets ER 1 by mouth every day in the morning 90tabs Amelie DuncanODoris 06/05/2020 Xarelto 20mg Tablets take one tablet by mouth every day 90tabs Anish Duncan.ODoris 05/11 Levothyroxine Sodium 75mcg Tablets 1 tab by mouth every morning 90tabs E03.9 Amelie DuncanO Doris 03/19/2020 Vitamin D (Ergocalciferol) 1.25mg (24213 Ut) Capsules Take 1 Capsule By Mouth Once A Week 4caps Amelie DuncanODoris 01/13/2020 Symbicort 160-4.5mcg/Act Aerosol 1 puffs twice a day, rinse out mouth afterwards. 10.200gm Amelie LanierODoris 02/22/2019 Losartan Potassium 50mg Tablets Take One Tablet By Mouth Every Day 90tabs I16.0 Amelie DuncanODoris 02/22/2019 Tylenol Extra Strength 500mg Table ts 2 tablets by mouth every 8 hours as needed 30tabs Ivette Curry D.O. 01/23/[id number] Part 1 tab by mouth three times a day with meals Unknown Loperamide HCL 2mg Capsules one capsule daily as needed for diarrhea Unknown Omeprazole 20mg Capsules DR 1 by mouth every day Unknown Furosemide 40mg Tablets 2 by mouth every day Unknown Labetalol HCL 100mg Tablets Take One Tablet [...] CPT Code Status Date Vaccine Lot # [id number] Given 10/05/2015 Pneumococcal Con jugate Vaccine 13 Valent For Intramuscular Use Vital Signs Date Vital Result Comment 12/02/2020 9:53am BP Systolic 130 mmHg BP Diastolic 98 mmHg Height 57.6 inches 4'9.60" Weight 98.25 lb BMI (Body Mass Index) 20.8 kg/m2 Heart Rate 78 /min Respiratory Rate 14 /min Body Temperature 96.8 F O2 % BldC Oximetry 98 % [place] Body Weight 100 lb 11/12/2020 10:02am BP Systolic 136 mmHg BP Diastolic 74 mmHg Height 57.6 inches 4'9.60" Weight 99.00 lb BMI (Body Mass Index) 21.0 kg/m2 Heart Rate 78 /min Respiratory Rate 18 /min Body Temperature 97.3 F O2 % BldC Oximetry 99 % [place] Body Weight 100 lb Results Test Acquired Date Facility Test Result H/L Range Note Coronavirus 2019 Nasopharygeal 01/22/2021 [facility] Outpa tient Testing (Registration) [address] [place] [phone] Coronavirus 2019 Nasopharygeal ASSAY INFORMATIO <SEE N OTE> 1 Liver Profile 10/09/2020 [facility] Outpatient Testi ng (Registration) [address] [place] [address] [phone] Ast/Sgot 247 U/L High 7-37 Alt/SGPT 88 U/L High 12-78 Alkaline Phosphatase 201 U/L High 45-117 Bilirubin,Total 1.5 mg/dL High 0.2-1.0 Bilirubin,Direct 1.0 mg/dL High 0.0-0.2 Total Protein 7.8 GM/DL Normal 6.4-8.2 Albumin 3.3 GM/DL Normal 3.2-5.2 Albumin/Globulin Ratio 0.7 Low 1.2-2.2 Basic Metabolic Profile 10/09/2020 [facility] Outpatient T esting (Registration) [address] [place] [address] [phone] Glucose, Fasting 151 mg/dL High 70-100 Blood [...] mg/dL Low 8.8-10.2 Laboratory test finding 10/09/2020 [facility] Outpatient T esting (Registration) [address] [place] [address] [phone] Amylase 41 U/L Normal 25-115 Lipase 34 U/L Low 73-393 Cardiac Marker Panel 10/09/2020 [facility] Outpatient Test ing (Registration) [address] [place] [address] [phone] CPK Creatine Phosphokinase 98 U/L Normal 26-19 2 CK-MB Value Mass 1.6 NG/ML Normal <3.6 MB/CK Relative Index 1.63 Normal < Or =4 3 Troponin I < 0.02 NG/ML Normal < 0.10 4 CBC With Differential 10/09/2020 [facility] Outpatient Natalie ting (Registration) [address] [place] [address]18 [phone] White Blood Count 6.1 10 Normal 4.0-10.0 [...] 36.0-66.0 Lymph % 13.3 % Low 24.0-44.0 [place] % 5.4 % Normal 2.0-8.0 Eos % 2.0 % Normal 0.0-3.0 Baso % 0.7 % Normal 0.0-1.0 Immature Granulocyte % 0.3 % Normal 0-3.0 Nucleated Red Blood Cell % 0.0 % Normal 0-0 Neutrophils # 4.8 10 Normal 1.5-8.5 Lymph # 0.8 10 Low 1.5-5.0 [place] # 0.3 10 Normal 0.0-0.8 Eos # 0.1 10 Normal 0.0-0.5 Baso # 0.0 10 Normal 0.0-0.2 Ua W/ Reflex To Culture 10/09/2020 [facility] Outpatient T esting (Registration) [address] [place] [address] 39793 [phone] Appearance, Urine RFX HAZY Normal Clear Color, Urine RFX YELLOW Normal Yellow PH,Urine RFX 7.0 units Normal 5.0-9.0 Specific [place] Ur Auto RFX 1.009 Normal 1.002-1.035 Protein, [...] 0-1 Amorphous Sediment RFX SMALL High Negative 1 ASSAY INFORMATION: Real Time RT-PCR NOTE: The COVID-19 assay has been cleared by the U.S. Food and Drug Administration under the Emergency Use Authorization (EUA). [facility] and [facility] are designated as high complexity laboratories by [...] Little GFR Left ESRD GFR <15 on PAROLE OFFICER 3 DIAGNOSIS CRITERIA MMB ng/ml Relative Index (RI) NON-AMI < or = 5 N/A FLOWERS ZONE > 5 < or = 4 AMI > 5 > 4 4 Troponin I Reference Interva l for [employer] LOCI: 99th Percentile= 0.00-0.045 ng/ml Risk Stratification: <= 0.10 ng/ml Decreased Risk for Adverse Clinical Events. 0.10-1.50 ng/ml Increased Risk for Adv erse Clinical Events. Evaluation of additional criterion and/or repeat testing in 2-6 hours is suggested to rule out myocardial damage. >= 1.50 ng/ml Indicative of Myocardial Injury. Procedures Date Code Description Status 12/02/2020 46905 Office/Outpatient Established Lo w MDM 20-29 Min Completed 11/12/2020 32012 Office/Outpatient Established Mo d MDM 30-39 Min Completed 10/20/2020 31019 Kirkpatrick Cre W/I 7 Days Of DC, Comm W/I 2 Dys Completed 09/08/2020 10992 Office/Outpatient Established Mo d MDM 30-39 Min Completed 08/18/2020 93199 Office/Outpatient Established Lo w MDM 20-29 Min Completed Medical Devices Description No Information Available Encounters Type Date Location Provider Dx Diagnosis Office Visit 12/02/2020 9:40a [facility] Amelie DuncanO. S51.011A Laceration without foreign b tariq of right elbow, init encntr M81.0 Age-related osteoporosis w/o current pathological fracture Office Visit 11/12/2020 10:00a [facility] AURA Mccallum I10 Essential (primary) hyperten joel E03.9 Hypothyroidism, unspecified I48.0 Paroxysmal atrial fibrillati on J45.40 Moderate persistent asthma, uncomplicated I35.0 Nonrheumatic aortic (valve) stenosis D63.8 Anemia in other chronic dise ases classified elsewhere R60.9 Edema, unspecified Office Visit 10/20/2020 1:40p [facility] AURA Mccallum K80.80 Other cholelithiasis without obstruction Office Visit 09/08/2020 10:00a [facility] Ivette Celestin DDorisO. I10 Essential (primary) hyperten joel E03.9 Hypothyroidism, unspecified S81.812D Laceration without foreign b tariq, left lower leg, subs encntr I48.0 Paroxysmal atrial fibrillati on J45.40 Moderate persistent asthma, uncomplicated I35.0 Nonrheumatic aortic (valve) stenosis Z88.8 Allergy status to other drug /meds/biol subst Z87.891 Personal history of nicotine dependence Z79.899 Other intermediate (current) dr betina therapy I34.0 Nonrheumatic mitral (valve) insufficiency D63.8 Anemia in other chronic dise ases classified elsewhere E87.6 Hypokalemia Z96.642 Presence of left artificial hip joint 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 Office Visit 08/18/2020 1:40p [facility] Ivette Celestin D.O. S81.812D Laceration without foreign b tariq, left lower leg, subs encntr I10 Essential (primary) hyperten joel Assessments Date Code Description Provider 12/02/2020 S51.011A Laceration without f oreign body of right elbow, initial encounter Amelie DuncanODoris 12/02/2020 M81.0 Age-related osteoporosis without current pathological fracture Amelie DuncanODoris 11/12/2020 I10 Essential (primary) hypertension Mauri Herrera, AURA 11/12/2020 E03.9 Hypothyroidism, unspecified Wild Herrera, AURA 11/12/2020 I48.0 Paroxysmal atrial fibrillation S AURA Saez 11/12/2020 J45.40 Moderate persistent asthma, unco mplicated Mauri Herrera, AURA 11/12/2020 I35.0 Nonrheumatic aortic (valve) sten osis Mauri Herrera, AURA 11/12/2020 D63.8 Anemia in other chronic diseases classified elsewhere Mauri Herrera, AURA 11/12/2020 R60.9 Edema, unspecified Mauri hernandez, AURA 10/20/2020 K80.80 Other cholelithiasis without obs truction AURA Mccallum 09/08/2020 I10 Essential (primary) hypertension Anish Duncan.ODoris 09/08/2020 E03.9 Hypothyroidism, unspecified Anish Duncan.ODoris 09/08/2020 S81.812D Laceration without f oreign body, left lower leg, subsequent encounter Ivette Celestin D.O. 09/08/2020 I48.0 Paroxysmal atrial fibrillation Amelie FrederickODoris 09/08/2020 J45.40 Moderate persistent asthma, unco mplicated Anish Singletary.ODoris 09/08/2020 I35.0 Nonrheumatic aortic (valve) sten osis Amelie DuncanODoris 09/08/2020 Z88.8 Allergy status to ot her drugs, medicaments and biological substances Amelie DuncanODoris 09/08/2020 Z87.891 Personal history of nicotine dep endence Anish Duncan.ODoris 09/08/2020 Z79.899 Other intermediate (current) drug t herapy Amelie DuncanODoris 09/08/2020 I34.0 Nonrheumatic mitral (valve) insu fficiency Amelie DuncanODoris 09/08/2020 D63.8 Anemia in other chronic diseases classified elsewhere Amelie DuncanODoris 09/08/2020 E87.6 Hypokalemia Amelie BarrosoODoris 09/08/2020 Z96.642 Presence of left artificial hip joint Amelie DuncanODoris 09/08/2020 I25.10 Atherosclerotic hear t disease of [place] coronary artery without angina pectoris Ivette Celestin D.O. 08/18/2020 S81.812D Laceration without f oreign body, left lower leg, subsequent encounter Ivette Celestin D.O. 08/18/2020 I10 Essential (primary) hypertension Ivette Celestin D.O. Plan of Treatment Future Appointment(s):* 02/12/2021 9:30 am - Ivette Celestin D.O. at [facility] Functional Status Description No Information Available Mental Status Description No Information Available Referrals Description No Information Available
--- OUTSIDE RECORDS SUMMARY | 2021-02-27 20:16 | CCD | Continuity of Care Document ---
Author Author Ita CELESTIN D.O. Organization Unknown Address [address] [facility] [address] [place] [address] Phone [phone] Care Team Providers Care Lead Recreation Assistant Name Role Phone Ivette Celestin D.O. AUTM [phone] Seth Acosta M.D. AUTM [phone] Deangelo Baldwin D.O. AUTM [phone] Woo Cruz M.D. AUTM [phone] Cadence Huang M.D. AUTM [phone] Problems Active Problems Provider Date Disorder of [...] belt Allergies, Adverse Reactions, Alerts Active Allergies Reaction Severity Comments Date Atorvastatin Mild 11/06/2014 Rosuvastatin Mild 08/01/2012 Inactive Allergies NKDA 12/08/2015 Medications Active Medications SIG Qnty Indications Ordering Provide r Date Potassium Chloride Naz ER 10Meq Tablets ER 1 by mouth every day in the morning 90tabs Amelie DuncanO. 06/05/2020 Xarelto 20mg Tablets Take One Tablet By Mouth Every Day 30tabs Amelie DuncanODoris 05/11 Levothyroxine Sodium 75mcg Tablets 1 tab by mouth every morning 90tabs E03.9 Amelie DuncanO . 03/19/2020 Vitamin D (Ergocalciferol) 1.25mg (88968 Ut) Capsules Take 1 Capsule By Mouth [...] as needed 30tabs Amelie LanierO. 01/23/[id number] Part 1 tab by mouth [...] every 6 hours as needed 28tabs S81.812D Anish Duncan.O. 08/18/2020 - 10/13/2020 Immunizations CPT Code Status Date Vaccine Lot # [id number] Given 10/05/2015 Pneumococcal Con jugate Vaccine 13 Valent For Intramuscular Use Vital Signs Date Vital Result Comment 12/02/2020 9:53am BP Systolic 130 mmHg BP Diastolic 98 mmHg Height 57.6 inches 4'9.60" Weight 98.25 lb BMI (Body Mass Index) 20.8 kg/m2 Heart Rate 78 /min Respiratory Rate 14 /min Body Temperature 96.8 F O2 % BldC Oximetry 98 % [place] Body Weight 100 lb 11/12/2020 10:02am BP Systolic 136 mmHg BP Diastolic 74 mmHg Height 57.6 inches 4'9.60" Weight 99.00 lb BMI (Body Mass Index) 21.0 kg/m2 Heart Rate 78 /min Respiratory Rate 18 /min Body Temperature 97.3 F O2 % BldC Oximetry 99 % [place] Body Weight 100 lb Results Test Acquired Date Facility Test Result H/L Range Note Liver Profile 10/09/2020 [facility] Outpatient Testi ng (Registration) [address] [place] [address] 90695 [phone] Ast/Sgot 247 U/L High 7-37 Alt/SGPT 88 U/L High 12-78 Alkaline Phosphatase 201 U/L High 45-117 Bilirubin,Total 1.5 mg/dL High 0.2-1.0 Bilirubin,Direct 1.0 mg/dL High 0.0-0.2 Total Protein 7.8 GM/DL Normal 6.4-8.2 Albumin 3.3 GM/DL Normal 3.2-5.2 Albumin/Globulin Ratio 0.7 Low 1.2-2.2 Basic Metabolic Profile 10/09/2020 [facility] Outpatient T esting (Registration) [address] [place] [address] 04795 [phone] Glucose, Fasting 151 mg/dL High 70-100 Blood Urea Nitrogen 14 mg/dL Normal 7-18 Creatinine For GFR 0.66 mg/dL Normal 0.55-1.30 Glomerular Filtration Rate > 60.0 Normal >32 1 Sodium Level 138 mEq/L Normal 136-145 Potassium Serum 2.9 mEq/L Critical low 3.5-5.1 Chloride Level 101 mEq/L Normal 98-107 Carbon Dioxide Level 34 mEq/L High 21-32 Anion Gap 3 mEq/L Low 8-16 Calcium Level 8.6 mg/dL Low 8.8-10.2 Laboratory test finding 10/09/2020 [facility] Outpatient T esting (Registration) [address] [place] [address] 41033 [phone] Amylase 41 U/L Normal 25-115 Lipase 34 U/L Low 73-393 Cardiac Marker Panel 10/09/2020 [facility] Outpatient Test ing (Registration) [address] [place] [address] 91195 [phone] CPK Creatine Phosphokinase 98 U/L Normal 26-19 2 CK-MB Value Mass 1.6 NG/ML Normal <3.6 MB/CK Relative Index 1.63 Normal < Or =4 2 Troponin I < 0.02 NG/ML Normal < 0.10 3 CBC With Differential 10/09/2020 [facility] Outpatient Natalie paris (Registration) [address] [place] [address] 58314 [phone] White Blood Count 6.1 10 Normal 4.0-10.0 [...] 36.0-66.0 Lymph % 13.3 % Low 24.0-44.0 [place] % 5.4 % Normal 2.0-8.0 Eos % 2.0 % Normal 0.0-3.0 Baso % 0.7 % Normal 0.0-1.0 Immature Granulocyte % 0.3 % Normal 0-3.0 Nucleated Red Blood Cell % 0.0 % Normal 0-0 Neutrophils # 4.8 10 Normal 1.5-8.5 Lymph # 0.8 10 Low 1.5-5.0 [place] # 0.3 10 Normal 0.0-0.8 Eos # 0.1 10 Normal 0.0-0.5 Baso # 0.0 10 Normal 0.0-0.2 Ua W/ Reflex To Culture 10/09/2020 [facility] Outpatient T michael (Registration) [address] [place] [address] 52940 [phone] Appearance, Urine RFX HAZY Normal Clear Color, Urine RFX YELLOW Normal Yellow PH,Urine RFX 7.0 units Normal 5.0-9.0 Specific [place] Ur Auto RFX 1.009 Normal 1.002-1.035 Protein, [...] Amorphous Sediment RFX SMALL High Negative 1 Units are mL/min/1.73 m2 Chronic Kidney Disease Staging per NKF: Stage I & II GFR >=60 Normal to Mildly Decreased Stage III GFR 30-59 Moderately Decreased Stage IV GFR 15-29 Severely Decreased Stage V GFR <15 Very Little GFR Left ESRD GFR <15 on FLATCAR WHACKER 2 DIAGNOSIS CRITERIA MMB ng/ml Relative Index (RI) NON-AMI < or = 5 N/A FLOWERS ZONE > 5 < or = 4 AMI > 5 > 4 3 Troponin I Reference Interva l for [employer] LOCI: 99th Percentile= 0.00-0.045 ng/ml Risk Stratification: <= 0.10 ng/ml Decreased Risk for Adverse Clinical Events. 0.10-1.50 ng/ml Increased Risk for Adv erse Clinical Events. Evaluation of additional criterion and/or repeat testing in 2-6 hours is suggested to rule out myocardial damage. >= 1.50 ng/ml Indicative of Myocardial Injury. Procedures Date Code Description Status 12/02/2020 91725 Office/Outpatient Established Lo w MDM 20-29 Min Completed 11/12/2020 14785 Office/Outpatient Established Mo d MDM 30-39 Min Completed 10/20/2020 47183 Kirkpatrick Cre W/I 7 Days Of DC, Comm W/I 2 Dys Completed 09/08/2020 63008 Office/Outpatient Established Mo d MDM 30-39 Min Completed 08/18/2020 87636 Office/Outpatient Established Lo w MDM 20-29 Min Completed 06/11/2020 35737 Office/Outpatient Established Lo w MDM 20-29 Min Completed Medical Devices Description No Information Available Encounters Type Date Location Provider Dx Diagnosis Office Visit 12/02/2020 9:40a [facility] Bhavik Celestin D.O. S51.011A Laceration without foreign b tariq of right elbow, init encntr M81.0 Age-related osteoporosis w/o current pathological fracture Office Visit 11/12/2020 10:00a [facility] AURA Mccallum I10 Essential (primary) hyperten joel E03.9 Hypothyroidism, unspecified I48.0 Paroxysmal atrial fibrillati on J45.40 Moderate persistent asthma, uncomplicated I35.0 Nonrheumatic aortic (valve) stenosis D63.8 Anemia in other chronic dise ases classified elsewhere R60.9 Edema, unspecified Office Visit 10/20/2020 1:40p [facility] AURA Mccallum K80.80 Other cholelithiasis without obstruction Office Visit 09/08/2020 10:00a [facility] Ivette Celestin D.O. I10 Essential (primary) hyperten joel E03.9 Hypothyroidism, unspecified S81.812D Laceration without foreign b tariq, left lower leg, subs encntr I48.0 Paroxysmal atrial fibrillati on J45.40 Moderate persistent asthma, uncomplicated I35.0 Nonrheumatic aortic (valve) stenosis Z88.8 Allergy status to other drug /meds/biol subst Z87.891 Personal history of nicotine dependence Z79.899 Other terminal make up operator (current) dr betina therapy I34.0 Nonrheumatic mitral (valve) insufficiency D63.8 Anemia in other chronic dise ases classified elsewhere E87.6 Hypokalemia Z96.642 Presence of left artificial hip joint 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 S81.812D Laceration without foreign b tariq, left lower leg, subs encntr I10 Essential (primary) hyperten joel Office Visit 06/11/2020 10:30a [facility] Anish Duncan.O. I10 Essential (primary) hyperten joel E03.9 Hypothyroidism, unspecified I48.0 Paroxysmal atrial fibrillati on J45.40 Moderate persistent asthma, uncomplicated I35.0 Nonrheumatic aortic (valve) stenosis Z88.8 Allergy status to other drug /meds/biol subst Z87.891 Personal history of nicotine dependence Z79.899 Other terminal make up operator (current) dr betina therapy I34.0 Nonrheumatic mitral (valve) insufficiency D63.8 Anemia in other chronic dise ases classified elsewhere E87.6 Hypokalemia Assessments Date Code Description Provider 12/02/2020 S51.011A [...] chronic diseases classified elsewhere Ivette Celestin, D.O. 09/08/2020 E87.6 Hypokalemia Ivette ortiz D.O. 09/08/2020 Z96.642 Presence of left artificial hip joint Ivette Celestin D.O. 09/08/2020 I25.10 Atherosclerotic hear t disease of [place] coronary artery without angina pectoris Ivette Celestin D.O. 08/18/2020 S81.812D Laceration without f oreign body, left lower leg, subsequent encounter Ivette Celestin D.O. 08/18/2020 I10 Essential (primary) hypertension Ivette Celestin D.O. 06/11/2020 I10 Essential (primary) hypertension Ivette Celestin D.O. 06/11/2020 E03.9 Hypothyroidism, unspecified Ivette Celestin D.O. 06/11/2020 I48.0 Paroxysmal atrial fibrillation Anish Frederick.O. 06/11/2020 J45.40 Moderate persistent asthma, unco mplicated Ivette Ventura D.O. 06/11/2020 I35.0 Nonrheumatic aortic (valve) sten osis Ivette Celestin D.O. 06/11/2020 Z88.8 Allergy status to ot her drugs, medicaments and biological substances Amelie DuncanODoris 06/11/2020 Z87.891 Personal history of nicotine dep endence Ivette Celestin D.O. 06/11/2020 Z79.899 Other long-term (current) drug t herapy Amelie DuncanODoris 06/11/2020 I34.0 Nonrheumatic mitral (valve) insu fficiency Ivette Celestin D.O. 06/11/2020 D63.8 Anemia in other chronic diseases classified elsewhere Ivette Celestin D.O. 06/11/2020 E87.6 Hypokalemia Ivette ortzi D.O. Plan of Treatment Future Appointment(s):* 02/12/2021 9:30 am - Ivette Celestin D.O. at [facility] Functional Status Description No Information Available Mental Status Description No Information Available Referrals Description No Information Available
--- OUTSIDE RECORDS SUMMARY | 2021-02-27 20:16 | CCD | Continuity of Care Document ---
Author Author Ita HERRERA Organization Unknown Address [address] [place] [address] [address] [place] [address] Phone [phone] Care Team Providers Care Experimental Physicist Name Role Phone Ivette Celestin D.O. AUTM Seth Acosta M.D. AUTM [phone] Deangelo Baldwin D.O. AUTM [phone] Woo Cruz M.D. AUTM [phone] Cadence Huang M.D. AUTM [phone] Problems Active Problems Provider Date Disorder of [...] mouth every day 90tabs Amelie DuncanODoris 05/11 Levothyroxine Sodium 75mcg Tablets 1 tab by mouth every morning 90tabs E03.9 Amelie DuncanO Doris 03/19/2020 Vitamin D (Ergocalciferol) 1.25mg (28355 Ut) Capsules Take 1 Capsule By Mouth [...] as needed 30tabs Amelie LanierODoris 01/23/[id number] Part 1 tab by mouth [...] CPT Code Status Date Vaccine Lot # [id number] Given 10/05/2015 Pneumococcal Con jugate Vaccine 13 Valent For Intramuscular Use Vital Signs Date Vital Result Comment 12/02/2020 9:53am BP Systolic 130 mmHg BP Diastolic 98 mmHg Height 57.6 inches 4'9.60" Weight 98.25 lb BMI (Body Mass Index) 20.8 kg/m2 Heart Rate 78 /min Respiratory Rate 14 /min Body Temperature 96.8 F O2 % BldC Oximetry 98 % [place] Body Weight 100 lb 11/12/2020 10:02am BP Systolic 136 mmHg BP Diastolic 74 mmHg Height 57.6 inches 4'9.60" Weight 99.00 lb BMI (Body Mass Index) 21.0 kg/m2 Heart Rate 78 /min Respiratory Rate 18 /min Body Temperature 97.3 F O2 % BldC Oximetry 99 % [place] Body Weight 100 lb Results Test Acquired Date Facility Test Result H/L Range Note Coronavirus 2019 Nasopharygeal 01/22/2021 [facility] Outpa tient Testing (Registration) [address] [place] [address] [phone] Coronavirus 2019 Nasopharygeal ASSAY INFORMATIO <SEE N OTE> 1 Basic Metabolic Profile 10/09/2020 [facility] Outpatient T esting (Registration) [address] [place] [address] [phone] Glucose, Fasting 151 mg/dL High 70-100 Blood [...] mg/dL Low 8.8-10.2 Laboratory test finding 10/09/2020 [facility] Outpatient T esting (Registration) [address] [place] [address] [phone] Amylase 41 U/L Normal 25-115 Lipase 34 U/L Low 73-393 Cardiac Marker Panel 10/09/2020 [facility] Outpatient Test ing (Registration) [address] [place] [address] [phone] CPK Creatine Phosphokinase 98 U/L Normal 26-19 2 CK-MB Value Mass 1.6 NG/ML Normal <3.6 MB/CK Relative Index 1.63 Normal < Or =4 3 Troponin I < 0.02 NG/ML Normal < 0.10 4 CBC With Differential 10/09/2020 [facility] Outpatient Natalie ting (Registration) [address] [place] [address] [phone] White Blood Count 6.1 10 Normal 4.0-10.0 [...] 36.0-66.0 Lymph % 13.3 % Low 24.0-44.0 [place] % 5.4 % Normal 2.0-8.0 Eos % 2.0 % Normal 0.0-3.0 Baso % 0.7 % Normal 0.0-1.0 Immature Granulocyte % 0.3 % Normal 0-3.0 Nucleated Red Blood Cell % 0.0 % Normal 0-0 Neutrophils # 4.8 10 Normal 1.5-8.5 Lymph # 0.8 10 Low 1.5-5.0 [place] # 0.3 10 Normal 0.0-0.8 Eos # 0.1 10 Normal 0.0-0.5 Baso # 0.0 10 Normal 0.0-0.2 Ua W/ Reflex To Culture 10/09/2020 [facility] Outpatient Isacc rodriguez (Registration) [address] [place] [address] [phone] Appearance, Urine RFX HAZY Normal Clear Color, Urine RFX YELLOW Normal Yellow PH,Urine RFX 7.0 units Normal 5.0-9.0 Specific [place] Ur Auto RFX 1.009 Normal 1.002-1.035 Protein, [...] RFX SMALL High Negative Liver Profile 10/09/2020 [facility] Outpatient Testi ng (Registration) [address] [place] [address] [phone] Ast/Sgot 247 U/L High 7-37 Alt/SGPT 88 [...] Administration under the Emergency Use Authorization (EUA). [email or web address] and [employer] are designated as high complexity laboratories by [...] Little GFR Left ESRD GFR <15 on LAUNDRY MACHINE OPERATOR 3 DIAGNOSIS CRITERIA MMB ng/ml Relative Index (RI) NON-AMI < or = 5 N/A FLOWERS ZONE > 5 < or = 4 AMI > 5 > 4 4 Troponin I Reference Interva l for [email or web address] LOCI: 99th Percentile= 0.00-0.045 ng/ml Risk Stratification: <= 0.10 ng/ml Decreased Risk for Adverse Clinical Events. 0.10-1.50 ng/ml Increased Risk for Adv erse Clinical Events. Evaluation of additional criterion and/or repeat testing in 2-6 hours is suggested to rule out myocardial damage. >= 1.50 ng/ml Indicative of Myocardial Injury. Procedures Date Code Description Status 12/02/2020 62906 Office/Outpatient Established Lo w MDM 20-29 Min Completed 11/12/2020 56883 Office/Outpatient Established Mo d MDM 30-39 Min Completed 10/20/2020 22126 [facility] W/I 7 Days Of DC, Comm W/I 2 Dys Completed 09/08/2020 08728 Office/Outpatient Established Mo d MDM 30-39 Min Completed 08/18/2020 70697 Office/Outpatient Established Lo w MDM 20-29 Min Completed Medical Devices Description No Information Available Encounters Type Date Location Provider Dx Diagnosis Office Visit 12/02/2020 9:40a [facility] Amelie DuncanODoris S51.011A Laceration without foreign b tariq of right elbow, init encntr M81.0 Age-related osteoporosis w/o current pathological fracture Office Visit 11/12/2020 10:00a [facility] AURA Mccallum I10 Essential (primary) hyperten joel E03.9 Hypothyroidism, unspecified I48.0 Paroxysmal atrial fibrillati on J45.40 Moderate persistent asthma, uncomplicated I35.0 Nonrheumatic aortic (valve) stenosis D63.8 Anemia in other chronic dise ases classified elsewhere R60.9 Edema, unspecified Office Visit 10/20/2020 1:40p [facility] AURA Mccallum K80.80 Other cholelithiasis without obstruction Office Visit 09/08/2020 10:00a [facility] Ivette Celestin D.O. I10 Essential (primary) hyperten joel E03.9 Hypothyroidism, unspecified S81.812D Laceration without foreign b tariq, left lower leg, subs encntr I48.0 Paroxysmal atrial fibrillati on J45.40 Moderate persistent asthma, uncomplicated I35.0 Nonrheumatic aortic (valve) stenosis Z88.8 Allergy status to other drug /meds/biol subst Z87.891 Personal history of nicotine dependence Z79.899 Other half-way (current) dr moffett therapy I34.0 Nonrheumatic mitral (valve) insufficiency D63.8 Anemia in other chronic dise ases classified elsewhere E87.6 Hypokalemia Z96.642 Presence of left artificial hip joint 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 Office Visit 08/18/2020 1:40p [facility] Amelie DuncanODoris S81.812D Laceration without foreign b tariq, left lower leg, subs encntr I10 Essential (primary) hyperten joel Assessments Date Code Description Provider 12/02/2020 S51.011A Laceration without f oreign body of right elbow, initial encounter Amelie DuncanODoris 12/02/2020 M81.0 Age-related osteoporosis without current pathological fracture Anish Duncan.ODoris 11/12/2020 I10 Essential (primary) hypertension AURA Mccallum 11/12/2020 E03.9 Hypothyroidism, unspecified Wild Herrera, AURA [...] I35.0 Nonrheumatic aortic (valve) sten osis Amelie DuncanO. 09/08/2020 Z88.8 Allergy status to ot her drugs, medicaments and biological substances Amelie DuncanODoris 09/08/2020 Z87.891 Personal history of nicotine dep endence Anish Duncan.ODoris 09/08/2020 Z79.899 Other long term care phlebotomist (current) drug t herapy Amelie DuncanODoris 09/08/2020 I34.0 Nonrheumatic mitral (valve) insu fficiency Amelie DuncanODoris 09/08/2020 D63.8 Anemia in other chronic diseases classified elsewhere Ivette Celestin D.O. 09/08/2020 E87.6 Hypokalemia Amelie BarrosoODoris 09/08/2020 Z96.642 Presence of left artificial hip joint Ivette Celestin D.O. 09/08/2020 I25.10 Atherosclerotic hear t disease of [place] coronary artery without angina pectoris Ivette Celestin D.O. 08/18/2020 S81.812D Laceration without f oreign body, left lower leg, subsequent encounter Ivette Celestin D.O. 08/18/2020 I10 Essential (primary) hypertension Ivette Celestin D.O. Plan of Treatment Future Appointment(s):* 02/12/2021 9:30 am - Ivette Celestin D.O. at [facility] Functional Status Description No Information Available Mental Status Description No Information Available Referrals Description No Information Available
--- OUTSIDE RECORDS SUMMARY | 2021-02-27 20:16 | CCD | Continuity of Care Document ---
Author Author Ita CELESTIN D.O. Organization Unknown Address [address] [facility] [address] [place] [address] Phone [phone] Care Team Providers Care Scientific Programmer Analyst Name Role Phone Ivette Celestin D.O. AUTM [phone] Seth Acosta M.D. AUTM [phone] Deangelo Baldwin D.O. AUTM [phone] Woo Cruz M.D. AUTM [phone] Cadence Huang M.D. AUTM [phone] Problems Active Problems Provider Date Disorder of [...] Amelie DuncanO. 05/11 Vitamin D (Ergocalciferol) 1.25mg (84028 Ut) Capsules Take 1 Capsule By Mouth [...] as needed 30tabs Amelie LanierODoris 01/23/[id number] Part 1 tab by mouth [...] CPT Code Status Date Vaccine Lot # 13908 Given 10/05/2015 Pneumococcal Con jugate Vaccine 13 Valent For Intramuscular Use Vital Signs Date Vital Result Comment 01/28/2021 2:52pm BP Systolic 142 mmHg BP Diastolic 76 mmHg Height 57.6 inches 4'9.60" Weight 99.38 lb BMI (Body Mass Index) 21.1 kg/m2 Heart Rate 82 /min Respiratory Rate 18 /min Body Temperature 98.2 F O2 % BldC Oximetry 95 % [place] Body Weight 100 lb 12/02/2020 9:53am BP Systolic 130 mmHg BP Diastolic 98 mmHg Height 57.6 inches 4'9.60" Weight 98.25 lb BMI (Body Mass Index) 20.8 kg/m2 Heart Rate 78 /min Respiratory Rate 14 /min Body Temperature 96.8 F O2 % BldC Oximetry 98 % [place] Body Weight 100 lb Results Test Acquired Date Facility Test Result H/L Range Note Coronavirus 2019 Nasopharygeal 01/22/2021 [facility] Outpa tient Testing (Registration) [address] [place] [address] [phone] Coronavirus 2019 Nasopharygeal ASSAY INFORMATIO <SEE N OTE> 1 Basic Metabolic Profile 10/09/2020 [facility] Outpatient T esting (Registration) [address] [place] [address] [phone] Glucose, Fasting 151 mg/dL High 70-100 Blood [...] Low 8.8-10.2 Laboratory test finding 10/09/2020 [facility] Outpatient T esting (Registration) [address] [place] [address] [phone] Amylase 41 U/L Normal 25-115 Lipase 34 U/L Low 73-393 Cardiac Marker Panel 10/09/2020 [facility] Outpatient Test ing (Registration) [address] [place] [address] [phone] CPK Creatine Phosphokinase 98 U/L Normal 26-19 2 CK-MB Value Mass 1.6 NG/ML Normal <3.6 MB/CK Relative Index 1.63 Normal < Or =4 3 Troponin I < 0.02 NG/ML Normal < 0.10 4 CBC With Differential 10/09/2020 [facility] Outpatient Natalie paris (Registration) [address] [place] [address] 39679 [phone] White Blood Count 6.1 10 Normal 4.0-10.0 [...] 36.0-66.0 Lymph % 13.3 % Low 24.0-44.0 [place] % 5.4 % Normal 2.0-8.0 Eos % 2.0 % Normal 0.0-3.0 Baso % 0.7 % Normal 0.0-1.0 Immature Granulocyte % 0.3 % Normal 0-3.0 Nucleated Red Blood Cell % 0.0 % Normal 0-0 Neutrophils # 4.8 10 Normal 1.5-8.5 Lymph # 0.8 10 Low 1.5-5.0 [place] # 0.3 10 Normal 0.0-0.8 Eos # 0.1 10 Normal 0.0-0.5 Baso # 0.0 10 Normal 0.0-0.2 Ua W/ Reflex To Culture 10/09/2020 [facility] Outpatient T michael (Registration) [address] [place] [address] 37729 [phone] Appearance, Urine RFX HAZY Normal Clear Color, Urine RFX YELLOW Normal Yellow PH,Urine RFX 7.0 units Normal 5.0-9.0 Specific [place] Ur Auto RFX 1.009 Normal 1.002-1.035 Protein, [...] SMALL High Negative Liver Profile 10/09/2020 [facility] Outpatient Testi awli (Registration) [address] [place] [phone] Ast/Sgot 247 U/L High 7-37 Alt/SGPT 88 [...] Administration under the Emergency Use Authorization (EUA). [employer] and [employer] are designated as high complexity laboratories by [...] Little GFR Left ESRD GFR <15 on GREENS PLANTER 3 DIAGNOSIS CRITERIA MMB ng/ml Relative Index (RI) NON-AMI < or = 5 N/A FLOWERS ZONE > 5 < or = 4 AMI > 5 > 4 4 Troponin I Reference Interva l for [employer] LOCI: 99th Percentile= 0.00-0.045 ng/ml Risk Stratification: <= 0.10 ng/ml Decreased Risk for Adverse Clinical Events. 0.10-1.50 ng/ml Increased Risk for Adv erse Clinical Events. Evaluation of additional criterion and/or repeat testing in 2-6 hours is suggested to rule out myocardial damage. >= 1.50 ng/ml Indicative of Myocardial Injury. Procedures Date Code Description Status 01/28/2021 44000 Office/Outpatient Established Mo d MDM 30-39 Min Completed 12/02/2020 00410 Office/Outpatient Established Lo w MDM 20-29 Min Completed 11/12/2020 57563 Office/Outpatient Established Mo d MDM 30-39 Min Completed 10/20/2020 13709 [facility] Cre W/I 7 Days Of DC, Comm W/I 2 Dys Completed 09/08/2020 01485 Office/Outpatient Established Mo d MDM 30-39 Min Completed 08/18/2020 88333 Office/Outpatient Established Lo w MDM 20-29 Min Completed Medical Devices Description No Information Available Encounters Type Date Location Provider Dx Diagnosis Office Visit 01/28/2021 2:40p [facility] Ivette Celestin D.O. D63.8 Anemia in other chronic dise ases classified elsewhere E03.9 Hypothyroidism, unspecified J45.40 Moderate persistent asthma, uncomplicated D51.9 Vitamin B12 deficiency anemi a, unspecified Office Visit 12/02/2020 9:40a [facility] Amelie DuncanO. S51.011A Laceration without foreign b tariq of right elbow, init encntr M81.0 Age-related osteoporosis w/o current pathological fracture Office Visit 11/12/2020 10:00a [facility] AURA Mccallum I10 Essential (primary) hyperten joel E03.9 Hypothyroidism, unspecified I48.0 Paroxysmal atrial fibrillati on J45.40 Moderate persistent asthma, uncomplicated I35.0 Nonrheumatic aortic (valve) stenosis D63.8 Anemia in other chronic dise ases classified elsewhere R60.9 Edema, unspecified Office Visit 10/20/2020 1:40p [facility] AURA Mccallum K80.80 Other cholelithiasis without obstruction Office Visit 09/08/2020 10:00a [facility] Amelie DuncanO. I10 Essential (primary) hyperten joel E03.9 Hypothyroidism, unspecified S81.812D Laceration without foreign b tariq, left lower leg, subs encntr I48.0 Paroxysmal atrial fibrillati on J45.40 Moderate persistent asthma, uncomplicated I35.0 Nonrheumatic aortic (valve) stenosis Z88.8 Allergy status to other drug /meds/biol subst Z87.891 Personal history of nicotine dependence Z79.899 Other nursing home (current) dr moffett therapy I34.0 Nonrheumatic mitral (valve) insufficiency D63.8 Anemia in other chronic dise ases classified elsewhere E87.6 Hypokalemia Z96.642 Presence of left artificial hip joint 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 S81.812D Laceration without [...] endence Ivette Celestin, D.O. 09/08/2020 Z79.899 Other nursing home (current) drug t herapy Ivette Celestin D.O. 09/08/2020 I34.0 Nonrheumatic mitral (valve) insu fficiency Ivette Celestin D.O. 09/08/2020 D63.8 Anemia in other chronic diseases classified elsewhere Ivette Celestin D.O. 09/08/2020 E87.6 Hypokalemia Ivette ortiz D.O. 09/08/2020 Z96.642 Presence of left artificial hip joint Ivette Celestin D.O. 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 08/18/2020 S81.812D Laceration without f oreign body, left lower leg, subsequent encounter Ivette Celestin D.O. 08/18/2020 I10 Essential (primary) hypertension Ivette Celestin D.O. Plan of Treatment Future Appointment(s):* 02/04/2021 1:10 pm - Ivette Celestin D.O. at [facility] * 02/12/2021 9:30 am - Ivette Celestin D.O. at [facility] Functional Status Description No Information Available Mental Status Description No Information Available Referrals Description No Information Available
--- OUTSIDE RECORDS SUMMARY | 2021-02-27 20:19 | CCD ---
Author Author [facility] Organization [facility] Address Unknown Phone Unavailable Care Team Providers Care Filling Station Attendant Name Role Phone LUANN, Trevor CHAVARRIA Unavailable Unavailable LETTIERE, Trevor CHAVARRIA Unavailable Unavailable LETTIERE, Trevor CHAVARRIA Unavailable Unavailable LETTIERE, Trevor CHAVARRIA Unavailable Unavailable LETTIERE, Trevor CHAVARRIA Unavailable Unavailable LETTIERE, Trevro CHAVARRIA Unavailable Unavailable LETTIERE, Trevor CHAVARRIA Unavailable Unavailable LETTIERE, Trevor CAHVARRIA Unavailable Unavailable LETTIERE, Trevor CHAVARRIA Unavailable Unavailable LETTIERE, Trevor OCONNOR PA Unavailable Unavailable LETTIERE, Trevor OCONNOR PA Unavailable Unavailable LETTIERE, Trevor OCONNOR PA Unavailable Unavailable LETTIERE, Trevor OCONNOR PA Unavailable Unavailable LETTIERE, Trevor OCONNOR PA Unavailable Unavailable LETTIERE, Trevor OCONNOR PA Unavailable Unavailable LETTIERE, Trevor OCONNOR PA Unavailable Unavailable LETTIERE, Trevor OCONNOR PA Unavailable Unavailable LETTIERE, Trevor OCONNOR PA Unavailable Unavailable LETTIERE, Trevor OCONNOR PA Unavailable Unavailable LETTIERE, Trevor OCONNOR PA Unavailable Unavailable LETTIERE, Trevor OCONNOR PA Unavailable Unavailable LETTIERE, Trevor OCONNOR PA Unavailable Unavailable LETTIERE, Trevor OCONNOR PA Unavailable Unavailable LETTIERE, Trevor OCONNOR PA Unavailable Unavailable LETTIERE, Trevor OCONNOR PA Unavailable Unavailable LETTIERE, A ELVIN PA Unavailable Unavailable LETTIERE, A ELVIN PA Unavailable Unavailable LETTIERE, A ELVIN PA Unavailable Unavailable LETTIERE, A ELVIN PA Unavailable Unavailable LETTIERE, A ELVIN PA Unavailable Unavailable LETTIERE, A ELVIN PA Unavailable Unavailable CYNTHIA (TENA), Brianne GONZALES MD Unavailable Unavailab le CYNTHIA (TENA), Brianne GONZALES MD Unavailable Unavailab le CYNTHIA (TENA), Brianne GONZALES MD Unavailable Unavailab le CYNTHIA (TENA), Brianne GONZALES MD Unavailable Unavailab le CYNTHIA (TENA), Brianne GONZALES MD Unavailable Unavailab le CYNTHIA (TENA), Brianne GONZALES MD Unavailable Unavailab le CYNTHIA (TENA), Brianne GONZALES MD Unavailable Unavailab le CYNTHIA (TENA), Brianne GONZALES MD Unavailable Unavailab le CYNTHIA (TENA), Brianne GONZALES MD Unavailable Unavailab le CYNTHIA (TENA), Brianne GONZALES MD Unavailable Unavailab le CYNTHIA (TENA), Brianne GONZALES MD Unavailable Unavailab le CYNTHIA (TENA), Brianne GONZALES MD Unavailable Unavailab le CYNTHIA (TENA), Brianne GONZALES MD Unavailable Unavailab le CYNTHIA (TENA), Brianne GONZALES MD Unavailable Unavailab le CYNTHIA (TENA), Brianne GONZALES MD Unavailable Unavailab le CYNTHIA (TENA), Brianne GONZALES MD Unavailable Unavailab le CYNTHIA (TENA), Brianne GONZALES MD Unavailable Unavailab le CYNTHIA (TENA), Brianne GONZALES MD Unavailable Unavailab le CYNTHIA (TENA), Brianne GONZALES MD Unavailable Unavailab le CYNTHIA (TENA), Brianne GONZALES MD Unavailable Unavailab le CYNTHIA (TENA), Brianne GONZALES MD Unavailable Unavailab le CYNTHIA (TENA), Brianne GONZALES MD Unavailable Unavailab le CYNTHIA (TENA), Brianne GONZALES MD Unavailable Unavailab le CYNTHIA (TENA), Brianne GONZALES MD Unavailable Unavailab le CYNTHIA (TENA), Brianne GONZALES MD Unavailable Unavailab le CYNTHIA (TENA), Brianne GONZALES MD Unavailable Unavailab le CYNTHIA (TENA), Brianne GONZALES MD Unavailable Unavailab le CYNTHIA (TENA), Brianne GONZALES MD Unavailable Unavailab le CYNTHIA (TENA), Brianne GONZALES MD Unavailable Unavailab le CYNTHIA (TENA), Brianne GONZALES MD Unavailable Unavailab le CYNTHIA (TENA), Brianne GONZALES MD Unavailable Unavailab le CYNTHIA (TENA), Brianne GONZALES MD Unavailable Unavailab le CYNTHIA (TENA), Brianne GONZALES MD Unavailable Unavailab le CYNTHIA (TENA), Brianne GONZALES MD Unavailable Unavailab le CYNTHIA (TENA), Brianne GONZALES MD Unavailable Unavailab le CYNTHIA (TENA), Brianne GONZALES MD Unavailable Unavailab le CYNTHIA (TENA), Brianne GONZALES MD Unavailable Unavailab le CYNTHIA (TENA), Brianne GONZALES MD Unavailable Unavailab le CYNTHIA (TENA), Brianne GONZALES MD Unavailable Unavailab le CYNTHIA (TENA), Brianne GONZALES MD Unavailable Unavailab le CYNTHIA (TENA), Brianne GONZALES MD Unavailable Unavailab le CYNTHIA (TENA), Brianne GONZALES MD Unavailable Unavailab le CYNTHIA (TENA), Brianne GONZALES MD Unavailable Unavailab le CYNTHIA (TENA), Brianne GONZALES MD Unavailable Unavailab le CYNTHIA (TENA), Brianne GONZALES MD Unavailable Unavailab le CYNTHIA (TENA), Brianne GONZALES MD Unavailable Unavailab le CYNTHIA (TENA), Brianne GONZALES MD Unavailable Unavailab le CYNTHIA (TENA), Brianne GONZALES MD Unavailable Unavailab le CYNTHIA (TENA), Brianne GONZALES MD Unavailable Unavailab le CYNTHIA (TENA), Brianne GONZALES MD Unavailable Unavailab le CYNTHIA (TENA), Brianne GONZALES MD Unavailable Unavailab le CYNTHIA (TENA), Brianne GONZALES MD Unavailable Unavailab le CYNTHIA (TENA), Brianne GONZALES MD Unavailable Unavailab le CYNTHIA (TENA), Brianne GONZALES MD Unavailable Unavailab le CYNTHIA (TENA), Brianne GONZALES MD Unavailable Unavailab le CYNTHIA (TENA), Brianne GONZALES MD Unavailable Unavailab le CYNTHIA (TENA), Brianne GONZALES MD Unavailable Unavailab le CYNTHIA (TENA), Brianne GONZALES MD Unavailable Unavailab le CYNTHIA (TENA), Brianne GONZALES MD Unavailable Unavailab le CYNTHIA (TENA), Brianne GONZALES MD Unavailable Unavailab le CYNTHIA (TENA), Brianne GONZALES MD Unavailable Unavailab le CYNTHIA (TENA), Brianne GONZALES MD Unavailable Unavailab le CYNTHIA (TENA), Brianne GONZALES MD Unavailable Unavailab le CYNTHIA (TENA), Brianne GONZALES MD Unavailable Unavailab le CYNTHIA (TENA), Brianne GONZALES MD Unavailable Unavailab le CYNTHIA (TENA), Brianne GONZALES MD Unavailable Unavailab le CYNTHIA (TENA), Brianne GONZALES MD Unavailable Unavailab le CYNTHIA (TENA), Brianne GONZALES MD Unavailable Unavailab le CYNTHIA (TENA), Brianne GONZALES MD Unavailable Unavailab le CYNTHIA (TENA), Brianne GONZALES MD Unavailable Unavailab le CYNTHIA (TENA), Brianne GONZALES MD Unavailable Unavailab le CYNTHIA (TENA), Brianne GONZALES MD Unavailable Unavailab le CYNTHIA (TENA), Brianne GONZALES MD Unavailable Unavailab le CYNTHIA (TENA), Brianne GONZALES MD Unavailable Unavailab le CYNTHIA (TENA), Brianne GONZALES MD Unavailable Unavailab le CYNTHIA (TENA), Brianne GONZALES MD Unavailable Unavailab le CYNTHIA (TENA), M CHRISTIAN MAN Unavailable Unavailab le CYNTHIA (TENA), M CHRISTIAN MAN Unavailable Unavailab le CYNTHIA (TENA), Brianne GONZALES MD Unavailable Unavailab le CYNTHIA (TENA), Brianne GONZALES MD Unavailable Unavailab le CYNTHIA (TENA), Brianne GONZALES MD Unavailable Unavailab le CYNTHIA (TENA), Brianne GONZALES MD Unavailable Unavailab le CYNTHIA (TENA), Brianne GONZALES MD Unavailable Unavailab le CYNTHIA (TENA), Brianne GONZALES MD Unavailable Unavailab le CYNTHIA (TENA), Brianne GONZALES MD Unavailable Unavailab le CYNTHIA (TENA), Brianne GONZALES MD Unavailable Unavailab le CYNTHIA (TENA), Brianne GONZALES MD Unavailable Unavailab le El-Khally, A Ziad MD Unavailable Unavailable El-Khally, A Ziad MD Unavailable Unavailable El-Khally, A Ziad MD Unavailable Unavailable El-Khally, A Ziad MD Unavailable Unavailable El-Khally, A Ziad MD Unavailable Unavailable El-Khally, A Ziad MD Unavailable Unavailable El-Khally, A Ziad MD Unavailable Unavailable El-Khally, A Ziad MD Unavailable Unavailable El-Khally, A Ziad MD Unavailable Unavailable El-Khally, A Ziad MD Unavailable Unavailable El-Khally, A Ziad MD Unavailable Unavailable El-Khally, A Ziad MD Unavailable Unavailable El-Khally, A Ziad MD Unavailable Unavailable El-Khally, A Ziad MD Unavailable Unavailable El-Khally, A Ziad MD Unavailable Unavailable El-Khally, A Ziad MD Unavailable Unavailable El-Khally, A Ziad MD Unavailable Unavailable El-Khally, A Ziad MD Unavailable Unavailable El-Khally, A Ziad MD Unavailable Unavailable El-Khally, A Ziad MD Unavailable Unavailable El-Khally, A Ziad MD Unavailable Unavailable El-Khally, A Ziad MD Unavailable Unavailable El-Khally, A Ziad MD Unavailable Unavailable El-Khally, A Ziad MD Unavailable Unavailable El-Khally, A Ziad MD Unavailable Unavailable El-Khally, A Ziad MD Unavailable Unavailable El-Khally, A Ziad MD Unavailable Unavailable El-Khally, A Ziad MD Unavailable Unavailable El-Khally, A Ziad MD Unavailable Unavailable El-Khally, A Ziad MD Unavailable Unavailable El-Khally, A Ziad MD Unavailable Unavailable El-Khally, A Ziad MD Unavailable Unavailable El-Khally, A Ziad MD Unavailable Unavailable El-Khally, A Ziad MD Unavailable Unavailable El-Khally, A Ziad MD Unavailable Unavailable El-Khally, A Ziad MD Unavailable Unavailable El-Khally, A Ziad MD Unavailable Unavailable El-Khally, A Ziad MD Unavailable Unavailable El-Khally, A Ziad MD Unavailable Unavailable El-Khally, A Ziad MD Unavailable Unavailable El-Khally, A Ziad MD Unavailable Unavailable El-Khally, A Ziad MD Unavailable Unavailable El-Khally, A Ziad MD Unavailable Unavailable EMMA-DOMINGUEZ, GLADIS DO Unavailable Unavailable EMMA-DOMINGUEZ, GLADIS DO Unavailable Unavailable EMMA-DOMINGUEZ, GLADIS DO Unavailable Unavailable EMMA-DOMINGUEZ, GLADIS DO Unavailable Unavailable EMMA-DOMINGUEZ, GLADIS DO Unavailable Unavailable EMMA-DOMINGUEZ, GLADIS DO Unavailable Unavailable EMMA-DOMINGUEZ, GLADIS DO Unavailable Unavailable EMMA-DOMINGUEZ, GLADIS DO Unavailable Unavailable EMMA-DOMINGUEZ, GLADIS DO Unavailable Unavailable EMMA-DOMINGUEZ, GLADIS DO Unavailable Unavailable EMMA-DOMINGUEZ, GLADIS DO Unavailable Unavailable EMMA-DOMINGUEZ, GLADIS DO Unavailable Unavailable EMMA-DOMINGUEZ, GLADIS DO Unavailable Unavailable EMMA-DOMINGUEZ, GLADIS DO Unavailable Unavailable EMMA-DOMINGUEZ, GLADIS DO Unavailable Unavailable EMMA-DOMINGUEZ, GLADIS DO Unavailable Unavailable EMMA-DOMINGUEZ, GLADIS DO Unavailable Unavailable EMMA-DOMINGUEZ, GLADIS DO Unavailable Unavailable EMMA-DOMINGUEZ, GLADIS DO Unavailable Unavailable EMMA-DOMINGUEZ, GLADIS DO Unavailable Unavailable EMMA-DOMINGUEZ, GLADIS DO Unavailable Unavailable EMMA-DOMINGUEZ, GLADIS DO Unavailable Unavailable EMMA-DOMINGUEZ, GLADIS DO Unavailable Unavailable EMMA-DOMINGUEZ, GLADIS DO Unavailable Unavailable EMMA-DOMINGUEZ, GLADIS DO Unavailable Unavailable EMMA-DOMINGUEZ, GLADIS DO Unavailable Unavailable EMMA-DOMINGUEZ, GLADIS DO Unavailable Unavailable EMMA-DOMINGUEZ, GLADIS DO Unavailable Unavailable EMMA-DOMINGUEZ, GLADIS DO Unavailable Unavailable EMMA-DOMINGUEZ, GLADIS DO Unavailable Unavailable EMMA-DOMINGUEZ, GLADIS DO Unavailable Unavailable EMMA-DOMINGUEZ, GLADIS DO Unavailable Unavailable EMMA-DOMINGUEZ, GLADIS DO Unavailable Unavailable EMMA-DOMINGUEZ, GLADIS DO Unavailable Unavailable EMMA-DOMINGUEZ, GLADIS DO Unavailable Unavailable EMMA-DOMINGUEZ, GLADIS DO Unavailable Unavailable EMMA-DOMINGUEZ, GLADIS DO Unavailable Unavailable EMMA-DOMINGUEZ, GLADIS DO Unavailable Unavailable EMMA-DOMINGUEZ, GLADIS DO Unavailable Unavailable EMMA-DOMINGUEZ, GLADIS DO Unavailable Unavailable EMMA-DOMNIGUEZ, GLADIS DO Unavailable Unavailable EMMA-DOMINGUEZ, GLADIS DO Unavailable Unavailable EMMA-DOMINGUEZ, GLADIS DO Unavailable Unavailable EMMA-DOMINGUEZ, GLADIS DO Unavailable Unavailable EMMA-DOMINGUEZ, GLADIS DO Unavailable Unavailable EMMA-DOMINGUEZ, GLADIS DO Unavailable Unavailable EMMA-DOMINGUEZ, GLADIS DO Unavailable Unavailable EMMA-DOMINGUEZ, GLADIS DO Unavailable Unavailable EMMA-DOMINGUEZ, GLADIS DO Unavailable Unavailable EMMA-DOMINGUEZ, GLADIS DO Unavailable Unavailable EMMA-DOMINGUEZ, GLADIS DO Unavailable Unavailable EMMA-DOMINGUEZ, GLADIS DO Unavailable Unavailable EMMA-DOMINGUEZ, GLADIS DO Unavailable Unavailable EMMA-DOMINGUEZ, GLADIS DO Unavailable Unavailable EMMA-DOMINGUEZ, GLADIS DO Unavailable Unavailable EMMA-DOMINGUEZ, GLADIS DO Unavailable Unavailable EMMA-DOMINGUEZ, GLADIS DO Unavailable Unavailable EMMA-DOMINGUEZ, GLADIS DO Unavailable Unavailable EMMA-DOMINGUEZ, GLADIS DO Unavailable Unavailable EMMA-DOMINGUEZ, GLADIS DO Unavailable Unavailable EMMA-DOMINGUEZ, GLADIS DO Unavailable Unavailable EMMA-DOMINGUEZ, GLADIS DO Unavailable Unavailable EMMA-DOMINGUEZ, GLADIS DO Unavailable Unavailable EMMA-DOMINGUEZ, GLADIS DO Unavailable Unavailable EMMA-DOMINGUEZ, GLADIS DO Unavailable Unavailable EMMA-DOMINGUEZ, GLADIS DO Unavailable Unavailable EMMA-DOMINGUEZ, GLADIS DO Unavailable Unavailable EMMA-DOMINGUEZ, GLADIS DO Unavailable Unavailable EMMA-DOMINGUEZ, GLADIS DO Unavailable Unavailable EMMA-DOMINGUEZ, GLADIS DO Unavailable Unavailable EMMA-DOMINGUEZ, GLADIS DO Unavailable Unavailable EMMA-DOMINGUEZ, GLADIS DO Unavailable Unavailable EMMA-DOMINGUEZ, GLADIS DO Unavailable Unavailable EMMA-DOMINGUEZ, GLADIS DO Unavailable Unavailable EMMA-DOMINGUEZ, GLADIS DO Unavailable Unavailable EMMA-DOMINGUEZ, GLADIS DO Unavailable Unavailable EMMA-DOMINGUEZ, GLADIS DO Unavailable Unavailable EMMA-DOMINGUEZ, GLADIS DO Unavailable Unavailable EMMA-DOMINGUEZ, GLADIS DO Unavailable Unavailable EMMA-DOMINGUEZ, GLADIS DO Unavailable Unavailable EMMA-DOMINGUEZ, GLADIS DO Unavailable Unavailable EMMA-DOMINGUEZ, GLADIS DO Unavailable Unavailable EMMA-DOMINGUEZ, GLADIS DO Unavailable Unavailable EMMA-DOMINGUEZ, GLADIS DO Unavailable Unavailable Javier, Mauri PA Unavailable Unavailable Javier, Mauri PA Unavailable Unavailable Javier, Mauri PA Unavailable Unavailable Javier, Mauri PA Unavailable Unavailable Javier, Mauri PA Unavailable Unavailable Javier, Mauri PA Unavailable Unavailable Javier, Mauri PA Unavailable Unavailable Javier, Mauri PA Unavailable Unavailable Javier, Mauri PA Unavailable Unavailable Javier, Mauri PA Unavailable Unavailable Javier, Mauri PA Unavailable Unavailable Javier, Mauri PA Unavailable Unavailable Javier, Mauri PA Unavailable Unavailable Javier, Mauri PA Unavailable Unavailable Javier, Mauri PA Unavailable Unavailable Javier, Mauri PA Unavailable Unavailable Javier, Mauri PA Unavailable Unavailable Javier, Mauri PA Unavailable Unavailable Javier, Mauri PA Unavailable Unavailable Javier, Mauri PA Unavailable Unavailable Javier, Mauri PA Unavailable Unavailable Javier, Mauri PA Unavailable Unavailable Javier, Mauri PA Unavailable Unavailable Javier, Mauri PA Unavailable Unavailable Javier, Mauri PA Unavailable Unavailable Javier, Mauri PA Unavailable Unavailable Javier, Mauri PA Unavailable Unavailable Javier, Mauri PA Unavailable Unavailable Javier, Mauri PA Unavailable Unavailable Javier, Mauri PA Unavailable Unavailable Javier, Mauri PA Unavailable Unavailable Javier, Mauri PA Unavailable Unavailable Javier, Mauri PA Unavailable Unavailable Javier, Mauri PA Unavailable Unavailable Javier, Mauri PA Unavailable Unavailable Javier, Mauri PA Unavailable Unavailable Javier, Mauri PA Unavailable Unavailable Javier, Mauri PA Unavailable Unavailable Javier, Mauri PA Unavailable Unavailable Javier, Mauri PA Unavailable Unavailable Javier, Mauri PA Unavailable Unavailable Javier, Mauri PA Unavailable Unavailable Javier, Mauri PA Unavailable Unavailable Javier, Mauri PA Unavailable Unavailable Javier, Mauri PA Unavailable Unavailable Javier, Mauri PA Unavailable Unavailable Javier, Mauri PA Unavailable Unavailable Javier, Mauri PA Unavailable Unavailable Javier, Mauri PA Unavailable Unavailable Javier, Mauri PA Unavailable Unavailable Javier, Mauri PA Unavailable Unavailable Javier, Mauri PA Unavailable Unavailable Javier, Mauri PA Unavailable Unavailable Javier, Mauri PA Unavailable Unavailable Rechlin, P Deangelo DO Unavailable Unavailable Rechlin, P Deangelo DO Unavailable Unavailable Rechlin, P Deangelo DO Unavailable Unavailable Rechlin, P Deangelo DO Unavailable Unavailable Rechlin, P Deangelo DO Unavailable Unavailable Rechlin, P Deangelo DO Unavailable Unavailable Rechlin, P Deangelo DO Unavailable Unavailable Rechlin, P Deangelo DO Unavailable Unavailable Rechlin, P Deangelo DO Unavailable Unavailable Rechlin, P Deangelo DO Unavailable Unavailable Rechlin, P Deangelo DO Unavailable Unavailable Rechlin, P Deangelo DO Unavailable Unavailable Rechlin, P Deangelo DO Unavailable Unavailable Rechlin, P Deangelo DO Unavailable Unavailable Rechlin, P Deangelo DO Unavailable Unavailable Rechlin, P Deangelo DO Unavailable Unavailable Rechlin, P Deangelo DO Unavailable Unavailable Rechlin, P Deangelo DO Unavailable Unavailable Rechlin, P Deangelo DO Unavailable Unavailable Rechlin, P Deangelo DO Unavailable Unavailable Rechlin, P Deangelo DO Unavailable Unavailable Rechlin, P Deangelo DO Unavailable Unavailable Rechlin, P Deangelo DO Unavailable Unavailable Rechlin, P Deangelo DO Unavailable Unavailable Rechlin, P Deangelo DO Unavailable Unavailable Rechlin, P Deangelo DO Unavailable Unavailable Rechlin, P Deangelo DO Unavailable Unavailable Rechlin, P Deangelo DO Unavailable Unavailable Rechlin, P Deangelo DO Unavailable Unavailable Rechlin, P Deangelo DO Unavailable Unavailable Rechlin, P Deangelo DO Unavailable Unavailable Rechlin, P Deangelo DO Unavailable Unavailable Rechlin, P Deangelo DO Unavailable Unavailable Rechlin, P Deangelo DO Unavailable Unavailable Rechlin, P Deangelo DO Unavailable Unavailable Rechlin, P Deangelo DO Unavailable Unavailable Rechlin, P Deangelo DO Unavailable Unavailable Rechlin, P Deangelo DO Unavailable Unavailable Rechlin, P Deangelo DO Unavailable Unavailable Rechlin, P Deangelo DO Unavailable Unavailable Rechlin, P Deangelo DO Unavailable Unavailable Rechlin, P Deangelo DO Unavailable Unavailable Rechlin, P Deangelo DO Unavailable Unavailable Rechlin, P Deangelo DO Unavailable Unavailable Rechlin, P Deangelo DO Unavailable Unavailable Rechlin, P Deangelo DO Unavailable Unavailable Rechlin, P Deangelo DO Unavailable Unavailable Rechlin, P Deangelo DO Unavailable Unavailable Rechlin, P Deangelo DO Unavailable Unavailable Rechlin, P Deangelo DO Unavailable Unavailable Rechlin, P Deangelo DO Unavailable Unavailable Telfair, V GUILLERMO PA-C Unavailable Unavailable Telfair, V GUILLERMO PA-C Unavailable Unavailable Maris, V GUILLERMO PA-C Unavailable Unavailable Telfair, V GUILLERMO PA-C Unavailable Unavailable Telfair, V GUILLERMO PA-C Unavailable Unavailable Telfair, V GUILLERMO PA-C Unavailable Unavailable Telfair, V GUILLERMO PA-C Unavailable Unavailable Telfair, V GUILLERMO PA-C Unavailable Unavailable Telfair, V GUILLERMO PA-C Unavailable Unavailable Telfair, V GUILLERMO PA-C Unavailable Unavailable Telfair, V GUILLERMO PA-C Unavailable Unavailable Maris, V GUILLERMO PA-C Unavailable Unavailable Maris, V GUILLERMO PA-C Unavailable Unavailable Maris, V GUILLERMO PA-C Unavailable Unavailable Rechlin, P Deangelo DO Unavailable Unavailable Rechlin, P Deangelo DO Unavailable Unavailable Rechlin, P Deangelo DO Unavailable Unavailable Rechlin, P Deangelo DO Unavailable Unavailable Rechlin, P Deangelo DO Unavailable Unavailable Rechlin, P Deangelo DO Unavailable Unavailable Rechlin, P Deangelo DO Unavailable Unavailable Rechlin, P Deangelo DO Unavailable Unavailable Rechlin, P Deangelo DO Unavailable Unavailable Rechlin, P Deangelo DO Unavailable Unavailable Rechlin, P Deangelo DO Unavailable Unavailable Rechlin, P Deangelo DO Unavailable Unavailable Rechlin, P Deangelo DO Unavailable Unavailable Rechlin, P Deangelo DO Unavailable Unavailable Rechlin, P Deangelo DO Unavailable Unavailable Rechlin, P Deangelo DO Unavailable Unavailable Rechlin, P Deangelo DO Unavailable Unavailable Rechlin, P Deangelo DO Unavailable Unavailable Rechlin, P Deangelo DO Unavailable Unavailable Rechlin, P Deangelo DO Unavailable Unavailable Rechlin, P Deangelo DO Unavailable Unavailable Rechlin, P Deangelo DO Unavailable Unavailable Rechlin, P Deangelo DO Unavailable Unavailable Rechlin, P Deangelo DO Unavailable Unavailable Rechlin, P Deangelo DO Unavailable Unavailable Rechlin, P Deangelo DO Unavailable Unavailable Rechlin, P Deangelo DO Unavailable Unavailable Rechlin, P Deangelo DO Unavailable Unavailable Rechlin, P Deangelo DO Unavailable Unavailable Rechlin, P Deangelo DO Unavailable Unavailable Rechlin, P Deangelo DO Unavailable Unavailable Rechlin, P Deangelo DO Unavailable Unavailable Rechlin, P Deangelo DO Unavailable Unavailable Rechlin, P Deangelo DO Unavailable Unavailable Rechlin, P Deangelo DO Unavailable Unavailable Rechlin, P Deangelo DO Unavailable Unavailable Rechlin, P Deangelo DO Unavailable Unavailable Rechlin, P Deangelo DO Unavailable Unavailable Rechlin, P Deangelo DO Unavailable Unavailable Rechlin, P Deangelo DO Unavailable Unavailable Rechlin, P Deangelo DO Unavailable Unavailable Rechlin, P Deangelo DO Unavailable Unavailable Rechlin, P Deangelo DO Unavailable Unavailable Rechlin, P Deangelo DO Unavailable Unavailable Rechlin, P Deangelo DO Unavailable Unavailable Rechlin, P Deangelo DO Unavailable Unavailable Rechlin, P Deangelo DO Unavailable Unavailable Rechlin, P Deangelo DO Unavailable Unavailable Rechlin, P Deangelo DO Unavailable Unavailable Rechlin, P Deangelo DO Unavailable Unavailable Rechlin, P Deangelo DO Unavailable Unavailable Re-disclosure Warning The records that you are about to access may contain information from federally-assisted alcohol or drug abuse programs. If such information is present, then the following federally mandated warning applies: This information has been disclosed to you from records protected by federal confidentiality rules (42 CFR part 2). The federal rules prohibit you from making any further disclosure of this information unless further disclosure is expressly permitted by the written consent of the person to whom it pertains or as otherwise permitted by 42 CFR part 2. A general authorization for the release of medical or other information is NOT sufficient for this purpose. The Federal rules restrict any use of the information to criminally investigate or prosecute any alcohol or drug abuse patient.The records that you are about to access may contain highly sensitive health information, the redisclosure of which is protected by Article 27-F of the [facility] Public Health law. If you continue you may have access to information: Regarding HIV / AIDS; Provided by facilities licensed or operated by the [facility] Office of Mental Health; or Provided by the [facility] Office for People With Developmental Disabilities. If such information is present, then the following [facility] mandated warning applies: This information has been disclosed to you from confidential records which are protected by state law. State law prohibits you from making any further disclosure of this information without the specific written consent of the person to whom it pertains, or as otherwise permitted by law. Any unauthorized further disclosure in violation of state law may result in a fine or nursing home sentence or both. A general authorization for the release of medical or other information is NOT sufficient authorization for further disc losure. Family History Family Member Name Family Member Gender Family Member Status Date o f Status Description Data Source(s) Unknown Unknown Problem [facility] ([facility], ) Unknown Female Problem MEDENT ([facility]) Unknown Female Encounters Encounter Providers Location Date Indications Data Source(s ) Outpatient Attender: GLADIS CORONADO [facility] 02/22/2021 11:40:00 AM EDT [facility] Outpatient Attender: GLADIS CORONADO [facility] 02/11/2021 01:20:00 PM EDT [facility] ([facility]: [facility] 01[facility]10:00 PM EDT [facility] Outpatient Attender: GUILLERMO CORDOVA-SJPDorisAUDREY 08/2020 12:00:00 AM EDT [facility] Outpatient Attender: GLADIS CORONADO [facility] 01/28/2021 02:40:00 PM EDT [facility] ([facility]) Outpatient Attender: Taylor Barragan MDAdmitter: Taylor whitfield MD [email or web address] 01/26/2021 06:49:00 AM EDT - 01/26/2021 02:20:00 PM EDT [facility] Patient discharged. Outpatient Attender: GUILLERMO CORDOVA-SJPDorisAUDREY 07:05:17 AM EDT - 01/18/2021 08:02:58 AM EDT [facility] Outpatient Attender: GUILLERMO RODRIGUEZCReferrer: CARMITA CORDOVA-SJPDorisAUDREY 12/21/2020 12:00:00 AM EDT - 12/21/2020 10:11:56 AM EDT [facility] Outpatient Referrer: GUILLERMO HYMANSJSONIA 12:00:00 AM EDT [facility] Outpatient Attender: GLADIS CORONADO DO [facility] 12/02/2020 09:40:00 AM EDT MED[facility] ([facility]) Outpatient Attender: Deangelo Valle/Kim/Neil/Laith ndl 11/30/2020 09:00:00 AM EDT MEDENT ([facility], ) Attender: CHRISTIAN FLORES) MDReferrer: D avid Rechlin DO 11/20/2020 08:21:07 PM EDT [facility] Attender: CHRISTIAN FLORES) MDReferrer: D avid Rechlin DO 11/20/2020 08:21:07 PM EDT [facility] Attender: CHRISTIAN FLORES) MDReferrer: D avid Rechlin DO 11/20/2020 08:21:07 PM EDT [facility] Attender: CHRISTIAN FLORES) MDReferrer: D avid Rechlin DO 11/20/2020 08:21:07 PM EDT [facility] Attender: CHRISTIAN FLORES) MDReferrer: D avid Rechlin DO 11/17/2020 08:21:07 PM EDT [facility] Attender: CHRISTIAN FLORES) MDReferrer: D avid Rechlin DO 11/17/2020 08:21:07 PM EDT [facility] Outpatient Attender: Mauri CHAVARRIA [facility] Medicine [facility] 11/12/2020 10:00:00 AM EDT MEDENT ([facility]) ([id number]) For [facility] [address] [place] [address] 10/27/2020 12:00:00 AM EDT eCW1 ([facility]) Outpatient Attender: Mauri CHAVARRIA [facility] 10/20/2020 01:40:00 PM EDT MEDENT ([facility]) Outpatient [address] [facility] [id number] 10/20/2020 12:00:00 AM EDT eCW1 ([facility]) Outpatient [address] [facility] [id number] 10/13/2020 12:00:00 AM EDT eCW1 ([facility]) ([id number]) For [facility] [address] [place] [phone] 10/06/2020 12:00:00 AM EDT eCW1 ([facility]) Office Visit, Est Pt., Level 3 PC [address] [place] [address] 10/05/2020 12:00:00 AM EDT eCW1 ([facility]) Outpatient [address] [facility] [id number] 09/29/2020 12:00:00 AM EDT eCW1 ([facility]) ([id number]) For [facility] [address] [place] [phone] 09/22/2020 12:00:00 AM EDT eCW1 ([facility]) ([id number]) For [facility] [address] [place] [phone] 09/15/2020 12:00:00 AM EDT eCW1 ([facility]) Outpatient Attender: GLADIS CORONADO DO [facility] 09/08/2020 10:00:00 AM EDT MEDENT ([facility]) Outpatient [address] [facility] [id number] 09/07/2020 12:00:00 AM EDT eCW1 ([facility]) Unknown [address] [place] [phone] 09/02/2020 12:00:00 AM EDT eCW1 ([facility]) ([id number]) New Patient 120 Min [address] [place] [address] 08/25/2020 12:00:00 AM EDT eCW1 ([facility]) Outpatient Attender: GLADIS CORONADO [facility] 08/18/2020 01:40:00 PM EDT [facility] ([facility]) Unknown [address] [facility] [place] [address] 08/17/2020 12:00:00 AM EDT eCW1 ([facility]) Outpatient Attender: ELVIN steinberg 08/16/2020 09:05:00 AM EDT MEDENT ([facility]) Outpatient Attender: GUILLERMO SANDRA.MICAELA 10:29:41 AM EST - 06/25/2020 11:53:51 AM EST [facility] Outpatient [address] [id number] 06/22/2020 12:00:00 AM EST eCW1 ([facility]) Outpatient Attender: GLADIS CORONADO [facility] 06/11/2020 09:30:00 AM EST MED[facility] ([facility]) Outpatient [address] [facility] [id number] 06/09/2020 12:00:00 AM EST eCW1 ([facility]) Outpatient [address] [facility] [place] [address] 05/14/2020 12:00:00 AM EST eCW1 ([facility]) Outpatient Attender: GLADIS CORONADO [facility] 05/11/2020 10:20:00 AM EST MED[facility] ([facility]) (MMS 1) [facility] [address] [facility] [place] [address] 05/07/2020 12:00:00 AM EST eCW1 ([facility]) Outpatient Attender: GUILLERMO SANDRA.AUDREY-SJP.AUDREY 06/2019 12:00:00 AM EST [facility] Outpatient Attender: GLADIS CORONADO [facility] 03/30/2020 09:00:00 AM EST MEDENT ([facility]) Outpatient Attender: GUILLERMO SANDRA.AUDREY-SJP.AUDREY 12:00:00 AM EST - 03/30/2020 12:09:50 PM EST [facility] [place] [address] [facility] [place] [address] 03/30/2020 12:00:00 AM EST eCW1 ([facility]) Outpatient Attender: GUILLERMO SANDRA.AUDREY-SJP.AUDREY 12:00:00 AM EST - 03/25/2020 04:51:02 PM EST [facility] Outpatient Attender: GLADIS CORONADO [facility] 03/19/2020 01:30:00 PM EST [facility] ([facility]) [place] [address] [facility] [place] [address] 03/05/2020 12:00:00 AM EST eCW1 ([facility]) [place] [address] [facility] [place] [address] 03/03/2020 12:00:00 AM EST eCW1 ([facility]) [place] [address] [facility] [place] [address] 02/26/2020 12:00:00 AM EDT eCW1 ([facility]) [place] [address] [facility] [place] [address] 02/26/2020 12:00:00 AM EDT eCW1 ([facility]) Outpatient Attender: GLADIS CORONADO [facility] 02/17/2020 03:00:00 PM EDT MEDENT ([facility]) Immunizations Vaccine Date Status Description Data Source(s) COVID-19 VACC, MRNA(PFIZER)/PF 01/28/2021 12:00:00 AM EDT completed [facility] COVID-19 VACCINE Pfizer 01/28/2021 12:00:00 AM EDT completed [facility] Vaccine Series Complete: YESThis Data wa s Submitted to [facility] Via [facility]. COVID-19 VACCINE Pfizer 06/15/2020 12:00:00 AM EST completed [facility] Vaccine Series Complete: YESThis Data wa s Submitted to [facility] Via [facility]. COVID-19 VACCINE Pfizer 05/25/2020 12:00:00 AM EST completed [facility] Vaccine Series Complete: NOThis Data was Submitted to [facility] Via [facility]. Medications Medication Brand Name Start Date Product Form Dose Route Admi nistrative Instructions Pharmacy Instructions Status Indications Reaction Description Data Source(s) 2 mg 02/12/2021 12:00:00 AM EDT capsule 180 TAKE 1-2 CAPSULES BY MOUTH ONCE DAILY NEEDED TAKE 1-2 CAPSULES BY MOUTH ONCE DAILY NEEDED SOLD: 02/13/2021 [facility] Sucralfate 1000 MG Oral Tablet Sucralfate 02/11/2021 12:00:00 AM EDT ORAL active MEDENT ([facility]) 1 gram 02/11/2021 12:00:00 AM EDT tablet 60 TAKE ONE TABLET BY MOUTH FOUR TIMES A DAY BEFORE MEALS NEEDED TAKE ONE TABLET BY MOUTH FOUR TIMES A DA Y BEFORE MEALS NEEDED SOLD: 02/11/2021 [facility] 40 mg 02/04/2021 12:00:00 AM EDT capsule,delayed release (DR/EC) 90 TAKE ONE CAPSULE BY MOUTH EVERY DAY TAKE ONE CAPSULE BY MOUTH EVERY DAY SOLD: 02/04/2021 [facility] 100 mg/mL 02/04/2021 12:00:00 AM EDT suspension 420 TAKE 10ML BY MOUTH FOUR TIMES A DAY BEFORE MEALS NEEDED TAKE 10ML BY MOUTH FOUR TIMES A DAY BEFO RE MEALS NEEDED SOLD: 02/04/2021 [facility] Omeprazole 40 MG Delayed Release Oral Capsule Omeprazole 02/04/2021 12:00:00 AM EDT ORAL active MEDENT ([facility]) Sucralfate 100 MG/ML Oral Suspension Sucralfate 02/04/2021 12:00:00 A M EDT ORAL completed [facility] ([facility]) 100 mg 02/03/2021 12:00:00 AM EDT tablet 30 TAKE ONE TABLET BY MOUTH EVERY DAY TAKE ONE TABLET BY MOUTH EVERY DAY SOLD: 02/04/2021 [facility] Losartan Potassium 100 MG Oral Tablet losartan (COZAAR ) 100 MG tablet losartan (COZAAR) 100 MG tablet 02/02/2021 12:00:00 AM EDT 100 mg Oral active Take 1 tablet (100 mg total) by mouth daily [facility] Levothyroxine Sodium 0.075 MG Oral Tablet Levothyroxine Sodi um 01/28/2021 12:00:00 AM EDT ORAL active M EDENT ([facility]) Furosemide 40 MG Oral Tablet furosemide (LASIX) 40 MG tablet furosemide (LASIX) 40 MG tablet 01/28/2021 12:00:00 AM EDT 40 mg active 40 mg daily [facility] 40 mg 01/28/2021 12:00:00 AM EDT tablet 180 TAKE TWO TABLETS BY MOUTH EVERY DAY TAKE TWO TABLETS BY MOUTH EVERY DAY SOLD: 01/28/2021 [facility] rivaroxaban 20 MG Oral Tablet rivaroxaban (Xarelto) 20 MG TABS rivaroxaban (Xarelto) 20 MG TABS 01/27/2021 12:00:00 AM EDT 20 mg Oral active Take 1 tablet (20 mg total) by mouth daily [facility] normal saline flush 0.9 % injection 3 mL [id number] 01/26/2021 03:00:00 PM EDT 3 mL Intravenous active 3 mL , Intravenous, PROTOCOL, First dose on Mon01/26/21 at 1500, Pre-op
flush per protocol, D/C Main IV fluid if appropriate
[facility] Medication administered onsite normal saline flush 0.9 % injection 3 mL [id number] 01/26/2021 02:00:00 PM EDT 3 mL Intravenous active 3 mL , Intravenous, Every 8 hours (scheduled), First dose on Mon01/26/21 at 1400, Pre-op
Rapid push positive pressure flushing shall be performed with a 10 cc normal saline syringe to check the PATENCY of a PIV site prior to any infusion therapy initiation unless resistance is met.
[facility] Medication administered onsite normal saline flush 0.9 % injection 3 mL [id number] 01/26/2021 02:00:00 PM EDT 3 mL Intravenous active 3 mL , Intravenous, Every 8 hours (scheduled), First dose on Mon01/26/21 at 1400, Pre-op
Rapid push positive pressure flushing shall be performed with a 10 cc normal saline syringe to check the PATENCY of a PIV site prior to any infusion therapy initiation unless resistance is met.
[facility] Medication administered onsite sodium chloride 0.9% (NS) infusion 5039-0598-30 01/26/2021 01:00:00 PM EDT 100 mL/h Intravenous active at 100 m L/hr, 100 mL/hr, Intravenous, Continuous, Starting on Mon01/26/21 at 1300, Pre-op
Start two hours prior to scheduled start time
[facility] Medication administered onsite Nitroglycerin 0.4 MG Sublingual Tablet n itroglycerin (NITROSTAT) SL tablet 0.4 mg nitroglycerin (NITROSTAT) SL tablet 0.4 mg 01/26/2021 12:04:00 P M EDT 0.4 mg Sublingual active 0.4 mg, S ublingual, Every 5 min PRN, chest pain, Starting on Mon01/26/21 at 1204, Post-op
May administer every 5 minutes for 3 doses and call cardio lab MD.
[facility] Medication administered onsite Acetaminophen 325 MG Oral Tablet acetaminophen (TYLENO L) 325 MG tablet 650 mg acetaminophen (TYLENOL) 325 MG tablet 650 mg 01/26/2021 12:04:00 PM EDT 650 mg Oral active 650 mg, Or al, Every 4 hours PRN, headaches, and non cardiac pain, Starting on Mon01/26/21 at 1204, Post-op
"Maximum dose of acetaminophen is 4,000 mg from all sources in 24 hours."
[facility] Medication administered onsite ondansetron (ZOFRAN) injection 4 mg 61000-611-92 01/26/2021 12:00:0 0 PM EDT 4 mg Intravenous completed 4 mg, In travenous, Once, On Mon01/26/21 at 1200, For 1 dose [facility] Medication administered onsite iopamidol (ISOVUE-370) 76 % [id number] 01/26/2021 10:47:22 AM EDT active As needed, Starting on Mon01/26/21 at 1047, Intra-Proc edure [facility] Medication administered onsite lidocaine 1 % injection [id number] 01/26/2021 10:29:38 AM EDT active As needed, Starting on Mon at 1029, Intra-Procedure [facility] Medication administered onsite fentaNYL Citrate (PF) (SUBLIMAZE) injection [id number] 01/26/2021 10:29:05 AM EDT active As neede d, Starting on Mon01/26/21 at 1029, Intra-Procedure [facility] Medication administered onsite 2 ML Midazolam 1 MG/ML Injection midazolam (VERSED) in jection midazolam (VERSED) injection 01/26/2021 10:28:57 AM EDT active As needed, Starting on Mon01/26/21 at 1028, Intra-Procedure [facility] Medication administered onsite clopidogrel 75 MG Oral Tablet clopidogrel (PLAVIX) 75 MG tablet clopidogrel (PLAVIX) 75 MG tablet 01/18/2021 12:00:00 AM EDT 75 mg Oral aborted Take 1 tablet (75 mg total) by mouth See Admin Instructions Please take four 75mg tabs of Plavix (300mg total) the night before the procedure. [facility] 75 mg 01/18/2021 12:00:00 AM EDT tablet 4 TAKE 4 TABLETS BY MOUTH THE NIGHT BEFORE PROCEDURE TAKE 4 TABLETS BY MOUTH THE NIGHT BEFORE PROCEDURE [facility] Labetalol hydrochloride 100 MG Oral Tablet labetalol ( NORMODYNE) 100 MG tablet labetalol (NORMODYNE) 100 MG tablet 01/13/2021 12:00:00 AM EDT active TAKE ONE TABLET BY MOUTH TWICE A DAY [facility] Labetalol hydrochloride 100 MG Oral Tablet LABETALOL HCL 01/08/2021 12:00:00 AM EDT tablet 180 TAKE ONE TABLET BY MOUTH TWI CE A DAY TAKE ONE TABLET BY MOUTH TWICE A DAY SOLD: 01/08/2021 [facility] Labetalol hydrochloride 100 MG Oral Tablet labetalol ( NORMODYNE) 100 MG tablet labetalol (NORMODYNE) 100 MG tablet 01/08/2021 12:00:00 AM EDT 100 mg Oral aborted Take 1 tablet (100 mg total) by mouth 2 (two) times a day [facility] 240 mcg/0.7 mL 12/29/2020 12:00:00 AM EDT syringe 0 INJECT DIRECTED INJECT DIRECTED SOLD: 12/29/2020 [facility] 20 mg 12/22/2020 12:00:00 AM EDT tablet 90 TAKE ONE TABLET BY MOUTH EVERY DAY TAKE ONE TABLET BY MOUTH EVERY DAY SOLD: 12/29/2020 [facility] Amylases 82628 UNT / Endopeptidases 6300 0 UNT / Lipase 20900 UNT Delayed Release Oral Capsule [Zenpep] Zenpep 78104-47616 units CPEP capsule Zenpep 23361-13709 units CPEP capsule 12/17/2020 12:00:00 AM EDT active TAKE THREE CAPSULES BY MOUTH THREE TIMES A DAY WITH MEALS AND 1 WITH SNACKS [facility] Digestive Enzymes (LIPASE CONCENTRATE-HP PO) drug or medicat ion 12/16/2020 12:00:00 AM EDT aborted [facility] 1,250 mcg (50,000 unit) 11/04/2020 12:00:00 AM EDT capsule 4 TAKE 1 CAPSULE BY MOUTH ONCE A WEEK TAKE 1 CAPSULE BY MOUTH ONCE A WEEK SOLD: 12/22/2020 [facility] 1,250 mcg (50,000 unit) 11/04/2020 12:00:00 AM EDT capsule 4 TAKE 1 CAPSULE BY MOUTH ONCE A WEEK TAKE 1 CAPSULE BY MOUTH ONCE A WEEK SOLD: 11/05/2020 [facility] 1,250 mcg (50,000 unit) 11/04/2020 12:00:00 AM EDT capsule 4 TAKE 1 CAPSULE BY MOUTH ONCE A WEEK TAKE 1 CAPSULE BY MOUTH ONCE A WEEK SOLD: 01/20/2021 [facility] 1,250 mcg (50,000 unit) 11/04/2020 12:00:00 AM EDT capsule 4 TAKE 1 CAPSULE BY MOUTH ONCE A WEEK TAKE 1 CAPSULE BY MOUTH ONCE A WEEK SOLD: 02/19/2021 [facility] 1,250 mcg (50,000 unit) 11/04/2020 12:00:00 AM EDT capsule 4 TAKE 1 CAPSULE BY MOUTH ONCE A WEEK TAKE 1 CAPSULE BY MOUTH ONCE A WEEK SOLD: 12/02/2020 [facility] 75 mcg 10/20/2020 12:00:00 AM EDT tablet 90 TAKE ONE TABLET BY MOUTH EVERY DAY IN THE MORNING TAKE ONE TABLET BY MOUTH EVERY DAY IN THE MORNING SOLD : 10/20/2020 [facility] 75 mcg 10/20/2020 12:00:00 AM EDT tablet 90 TAKE ONE TABLET BY MOUTH EVERY DAY IN THE MORNING TAKE ONE TABLET BY MOUTH EVERY DAY IN THE MORNING SOLD : 01/20/2021 [facility] 75 mcg 09/16/2020 12:00:00 AM EDT tablet 30 TAKE ONE TABLET BY MOUTH EVERY DAY TAKE ONE TABLET BY MOUTH EVERY DAY SOLD: 09/17/2020 [facility] 20 mg 09/09/2020 12:00:00 AM EDT capsule,delayed release (DR/EC) 30 TAKE ONE CAPSULE BY MOUTH EVERY DAY FOR 2 WEEKS THEN NEEDED TAKE ONE CAPSULE BY MOUTH EVERY DAY FOR 2 WEEKS THEN NEEDED SOLD: 09/09/2020 [facility] 100,000 unit/mL 09/09/2020 12:00:00 AM EDT suspension 100 SWISH AND SWALLOW 10MLS BY MOUTH ONCE A DAY FOR 10 DAYS SWISH AND SWALLOW 10MLS BY MOUTH ONCE A DAY FOR 10 DAYS SOLD: 09/09/2020 [facility] 20,000-63,000- 84,000 unit 08/29/2020 12:00:00 A M EDT capsule,delayed release(DR/EC) 240 TAKE ONE TO TWO CAPS ULES BY MOUTH WITH EACH MEAL DIRECTED TAKE ONE TO TWO CAPSULES BY MOUTH WITH EACH MEAL DI RECTED SOLD: 09/01/2020 [facility] Acetaminophen 325 MG / Hydrocodone Bitartrate 5 MG Ora l Tablet 5-325 mg HYDROCODONE/ACETAMINOPHEN 08/18/2020 12:00:00 AM EDT tablet 28 TAKE ONE TABLET BY MOUTH EVERY 6 HOURS NEEDED MAXIMUM DAILY DOSE = 4 TAKE ONE TABLET BY MOUTH EVERY 6 HOURS NEEDED MAXIMUM DAILY DOSE = 4 SOLD: 08/18/2020 [facility] Acetaminophen 325 MG / Hydrocodone Bitartrate 5 MG Ora l Tablet Hydrocodone-Acetaminophen 08/18/2020 12:00:00 AM EDT ORAL completed MEDENT ([facility]) silver sulfadiazine 10 MG/ML Topical Cream [SSD] SILVER SULF ADIAZINE 08/16/2020 12:00:00 AM EDT cream 50 APPLY TO LEFT LOWER LEG D AILY FOR 10 - 14 DAYS APPLY TO LEFT LOWER LEG DAILY FOR 10 - 14 DAYS SOLD: 08/17/2020 [facility] silver sulfadiazine 10 MG/ML Topical Cream [Silvadene] Saeed dene 08/16/2020 12:00:00 AM EDT active M EDENT ([facility]) 10 mg 07/29/2020 12:00:00 AM EDT tablet 30 TAKE 4 TABLETS BY MOUTH EVERY DAY FOR 3 DAYS, THEN 3 TABS. DAILY FOR 3 DAYS, THEN 2 TABS. DAILY FOR 3 DAYS, THEN 1 TAB. DAILY FOR 3 DAYS & STOP TAKE 4 TABLETS BY MOUTH EVERY DAY FOR 3 DAYS, THEN 3 TABS. DAILY FOR 3 DAYS, THEN 2 TABS. DAILY FOR 3 DAYS, THEN 1 TAB. DAILY FOR 3 DAYS & STOP SOLD: 07/29/2020 [facility] 250 mg 07/29/2020 12:00:00 AM EDT tablet 14 TAKE ONE TABLET BY MOUTH TWICE A DAY TAKE ONE TABLET BY MOUTH TWICE A DAY SOLD: 07/29/2020 [facility] Prednisone 10 MG Oral Tablet Prednisone 07/29/2020 12:00:00 AM EDT ORAL completed MEDENT ([facility], ) Ciprofloxacin 250 MG Oral Tablet Ciprofloxacin HCL 07/29/2020 12:00 :00 AM EDT ORAL completed [facility] ([facility], ) Furosemide 20 MG Oral Tablet furosemide (LASIX) 20 MG tablet furosemide (LASIX) 20 MG tablet 06/25/2020 12:00:00 AM EST 20 mg Oral activ e Take 1 tablet (20 mg total) by mouth daily as needed [facility] Labetalol hydrochloride 100 MG Oral Tablet labetalol ( NORMODYNE) 100 MG tablet labetalol (NORMODYNE) 100 MG tablet 06/25/2020 12:00:00 AM EST 100 mg Oral active Take 1 tablet (100 mg total) by mouth 2 (two) times a day [facility] Labetalol hydrochloride 100 MG Oral Tablet LABETALOL HCL 06/25/2020 12:00:00 AM EST tablet 90 TAKE ONE TABLET BY MOUTH TWI CE A DAY TAKE ONE TABLET BY MOUTH TWICE A DAY SOLD: 11/12/2020 [facility] 20 mg 06/25/2020 12:00:00 AM EST tablet 90 TAKE ONE TABLET BY MOUTH EVERY DAY NEEDED TAKE ONE TABLET BY MOUTH EVERY DAY NEEDED SOLD: 06/25/2020 [facility] Labetalol hydrochloride 100 MG Oral Tablet LABETALOL HCL 06/25/2020 12:00:00 AM EST tablet 90 TAKE ONE TABLET BY MOUTH TWI CE A DAY TAKE ONE TABLET BY MOUTH TWICE A DAY SOLD: 06/25/2020 [facility] 20,000-63,000- 84,000 unit 06/24/2020 12:00:00 A M EST capsule,delayed release(DR/EC) 810 TAKE THREE CAPSULES BY MOUTH THREE TIMES A DAY WITH MEALS AND 1 WITH SNACKS TAKE THREE CAPSULES BY MOUTH THREE TIMES A DAY WITH MEALS AND 1 WITH SNACKS SOLD: 06/25/2020 [facility] 20,000-63,000- 84,000 unit 06/24/2020 12:00:00 A M EST capsule,delayed release(DR/EC) 810 TAKE THREE CAPSULES BY MOUTH THREE TIMES A DAY WITH MEALS AND 1 WITH SNACKS TAKE THREE CAPSULES BY MOUTH THREE TIMES A DAY WITH MEALS AND 1 WITH SNACKS SOLD: 12/18/2020 [facility] Covid-19 vaccine, Unspecified 06/15/2020 12:00:00 AM EST completed [facility] ([facility]) Medication administered onsite 1,000 mcg/mL 06/10/2020 12:00:00 AM EST solution 3 INJECT 1ML ONCE A MONTH INJECT 1ML ONCE A MONTH SOLD: 09/09/2020 [facility] 1,000 mcg/mL 06/10/2020 12:00:00 AM EST solution 3 INJECT 1ML ONCE A MONTH INJECT 1ML ONCE A MONTH SOLD: 06/14/2020 [facility] 1,000 mcg/mL 06/10/2020 12:00:00 AM EST solution 3 INJECT 1ML ONCE A MONTH INJECT 1ML ONCE A MONTH SOLD: 12/22/2020 [facility] 20 mg 06/08/2020 12:00:00 AM EST tablet 30 TAKE ONE TABLET BY MOUTH EVERY DAY TAKE ONE TABLET BY MOUTH EVERY DAY SOLD: 09/17/2020 [facility] 20 mg 06/08/2020 12:00:00 AM EST tablet 30 TAKE ONE TABLET BY MOUTH EVERY DAY TAKE ONE TABLET BY MOUTH EVERY DAY SOLD: 10/20/2020 [facility] 20 mg 06/08/2020 12:00:00 AM EST tablet 30 TAKE ONE TABLET BY MOUTH EVERY DAY TAKE ONE TABLET BY MOUTH EVERY DAY SOLD: 11/21/2020 [facility] 20 mg 06/08/2020 12:00:00 AM EST tablet 30 TAKE ONE TABLET BY MOUTH EVERY DAY TAKE ONE TABLET BY MOUTH EVERY DAY SOLD: 06/10/2020 [facility] 20 mg 06/08/2020 12:00:00 AM EST tablet 30 TAKE ONE TABLET BY MOUTH EVERY DAY TAKE ONE TABLET BY MOUTH EVERY DAY SOLD: 2020 [facility] 20 mg 06/08/2020 12:00:00 AM EST tablet 30 TAKE ONE TABLET BY MOUTH EVERY DAY TAKE ONE TABLET BY MOUTH EVERY DAY SOLD: 08/11/2020 [facility] 10 mEq 06/05/2020 12:00:00 AM EST tablet,ER particles/cry stals 90 TAKE ONE TABLET BY MOUTH EVERY MORNING TAKE ONE TABLET BY MOUTH EVERY MORNING SOLD: 06/05/2020 [facility] Potassium Chloride 10 MEQ Extended Release Oral Tablet Potassium Chloride [facility] 06/05/2020 12:00:00 AM EST ORAL active [facility] ([facility]) 10 mg 05/28/2020 12:00:00 AM EST tablet 30 TAKE 4 TABLETS BY MOUTH ONCE DAILY FOR 3 DAYS THEN 3 TABLETS FOR 3 DAYS THEN 2 TABLETS FOR 3 DAYS THEN 1 TABLET FOR 3 DAYS THEN STOP TAKE 4 TABLETS BY MOUTH ONCE DAILY FOR 3 DAYS THEN 3 TABLETS FOR 3 DAYS THEN 2 TABLETS FOR 3 DAYS THEN 1 TABLET FOR 3 DAYS THEN STOP SOLD: 05/28/2020 [facility] 250 mg 05/28/2020 12:00:00 AM EST tablet 14 TAKE ONE TABLET BY MOUTH TWICE A DAY FOR 7 DAYS TAKE ONE TABLET BY MOUTH TWICE A DAY FOR 7 DAYS SOLD: 05/28/2020 [facility] 1,250 mcg (50,000 unit) 05/28/2020 12:00:00 AM EST capsule 4 TAKE 1 CAPSULE BY MOUTH ONCE A WEEK TAKE 1 CAPSULE BY MOUTH ONCE A WEEK SOLD: 10/10/2020 [facility] 1,250 mcg (50,000 unit) 05/28/2020 12:00:00 AM EST capsule 4 TAKE 1 CAPSULE BY MOUTH ONCE A WEEK TAKE 1 CAPSULE BY MOUTH ONCE A WEEK SOLD: 07/28/2020 [facility] 2.5 mg 05/28/2020 12:00:00 AM EST tablet 30 TAKE ONE TABLET BY MOUTH EVERY DAY AT BEDTIME TAKE ONE TABLET BY MOUTH EVERY DAY AT BEDTIME SOLD: 05/28/2020 [facility] 1,250 mcg (50,000 unit) 05/28/2020 12:00:00 AM EST capsule 4 TAKE 1 CAPSULE BY MOUTH ONCE A WEEK TAKE 1 CAPSULE BY MOUTH ONCE A WEEK SOLD: 06/25/2020 [facility] 1,250 mcg (50,000 unit) 05/28/2020 12:00:00 AM EST capsule 4 TAKE 1 CAPSULE BY MOUTH ONCE A WEEK TAKE 1 CAPSULE BY MOUTH ONCE A WEEK SOLD: 05/28/2020 [facility] 100 mg 05/28/2020 12:00:00 AM EST tablet 30 TAKE 1/2 TABLET BY MOUTH TWO TIMES A DAY TAKE 1/2 TABLET BY MOUTH TWO TIMES A DAY SOLD: 05/28/2020 [facility] 1,250 mcg (50,000 unit) 05/28/2020 12:00:00 AM EST capsule 4 TAKE 1 CAPSULE BY MOUTH ONCE A WEEK TAKE 1 CAPSULE BY MOUTH ONCE A WEEK SOLD: 08/18/2020 [facility] Covid-19 vaccine, Unspecified 05/25/2020 12:00:00 AM EST completed [facility] ([facility], ) Medication administered onsite rivaroxaban 20 MG Oral Tablet [Xarelto] Xarelto 05/11/2020 12:00:0 0 AM EST ORAL active [facility] ([facility]) 160-4.5 mcg/actuation 04/29/2020 12:00:00 AM EST HFA aerosol inhaler 30 INHALE TWO PUFFS BY MOUTH TWICE A DAY NEEDED INHALE TWO PUFFS BY MOUTH TWICE A DAY NEEDED SOLD: 09/17/2020 [facility] 160-4.5 mcg/actuation 04/29/2020 12:00:00 AM EST HFA aerosol inhaler 30 INHALE TWO PUFFS BY MOUTH TWICE A DAY NEEDED INHALE TWO PUFFS BY MOUTH TWICE A DAY NEEDED SOLD: 05/02/2020 [facility] 10 mg 04/16/2020 12:00:00 AM EST tablet 30 TAKE ONE TABLET BY MOUTH AT BEDTIME TAKE ONE TABLET BY MOUTH AT BEDTIME SOLD: 04/19/2020 [facility] 50 mg 04/10/2020 12:00:00 AM EST tablet 60 TAKE ONE TABLET BY MOUTH TWICE A DAY TAKE ONE TABLET BY MOUTH TWICE A DAY SOLD: 04/11/2020 [facility] 25 mg 04/05/2020 12:00:00 AM EST tablet 30 TAKE TWO TABLETS BY MOUTH EVERY DAY TAKE TWO TABLETS BY MOUTH EVERY DAY SOLD: 04/07/2020 [facility] 20 mg 04/03/2020 12:00:00 AM EST tablet 30 TAKE ONE TABLET BY MOUTH EVERY DAY NEEDED TAKE ONE TABLET BY MOUTH EVERY DAY NEEDED SOLD: 04/07/2020 [facility] Labetalol hydrochloride 100 MG Oral Tablet labetalol ( NORMODYNE) 100 MG tablet labetalol (NORMODYNE) 100 MG tablet 04/02/2020 12:00:00 AM EST 50 mg Oral active Take 0.5 tablets (50 mg total) b y mouth 2 (two) times a day [facility] Furosemide 20 MG Oral Tablet furosemide (LASIX) 20 MG tablet furosemide (LASIX) 20 MG tablet 04/02/2020 12:00:00 AM EST 20 mg Oral activ e Take 1 tablet (20 mg total) by mouth as needed [facility] Chlorthalidone 25 MG Oral Tablet chlorthalidone (HYGRO TEN) 25 MG tablet chlorthalidone (HYGROTEN) 25 MG tablet 04/02/2020 12:00:00 AM EST 5 0 mg Oral active Take 2 tablets (50 mg tot al) by mouth daily [facility] Amlodipine 10 MG Oral Tablet amLODIPine (NORVASC) 10 M G tablet amLODIPine (NORVASC) 10 MG tablet 04/02/2020 12:00:00 AM EST 10 mg Oral aborted Take 1 tablet (10 mg total) by mouth At bedtime sliding scale [facility] Levothyroxine Sodium 0.075 MG Oral Table t levothyroxine (SYNTHROID, LEVOTHROID) 75 MCG tablet levothyroxine (SYNTHROID, LEVOTHROID) 75 MCG tablet 12:00:00 AM EST 75 ug Oral active Take 1 tablet (75 mcg total) by mouth daily [facility] Losartan Potassium 50 MG Oral Tablet losartan (COZAAR) 50 MG tablet losartan (COZAAR) 50 MG tablet 04/02/2020 12:00:00 AM EST 50 mg Oral active Take 1 tablet (50 mg total) by mouth daily [facility] 10 mg 03/25/2020 12:00:00 AM EST tablet 30 TAKE ONE TABLET BY MOUTH EVERY DAY AT BEDTIME TAKE ONE TABLET BY MOUTH EVERY DAY AT BEDTIME SOLD: 03/25/2020 [facility] 25 mg 03/25/2020 12:00:00 AM EST tablet 30 TAKE TWO TABLETS BY MOUTH EVERY DAY TAKE TWO TABLETS BY MOUTH EVERY DAY SOLD: 03/25/2020 [facility] Chlorthalidone 25 MG Oral Tablet chlorthalidone (HYGRO TEN) 25 MG tablet chlorthalidone (HYGROTEN) 25 MG tablet 03/25/2020 12:00:00 AM EST 5 0 mg Oral aborted Take 50 mg by mouth daily [facility] Amlodipine 10 MG Oral Tablet amLODIPine (NORVASC) 10 M G tablet amLODIPine (NORVASC) 10 MG tablet 03/25/2020 12:00:00 AM EST 10 mg Oral aborted Take 10 mg by mouth [facility] 75 mcg 03/20/2020 12:00:00 AM EST tablet 90 TAKE ONE TABLET BY MOUTH EVERY DAY IN THE MORNING TAKE ONE TABLET BY MOUTH EVERY DAY IN THE MORNING SOLD : 03/20/2020 [facility] 75 mcg 03/20/2020 12:00:00 AM EST tablet 90 TAKE ONE TABLET BY MOUTH EVERY DAY IN THE MORNING TAKE ONE TABLET BY MOUTH EVERY DAY IN THE MORNING SOLD : 06/19/2020 [facility] 50 mg 03/20/2020 12:00:00 AM EST tablet 90 TAKE ONE TABLET BY MOUTH EVERY DAY TAKE ONE TABLET BY MOUTH EVERY DAY SOLD: 03/20/2020 [facility] 2.5 mg 03/20/2020 12:00:00 AM EST tablet 30 TAKE ONE TABLET BY MOUTH EVERY DAY IN THE MORNING TAKE ONE TABLET BY MOUTH EVERY DAY IN THE MORNING SOLD : 03/20/2020 [facility] Levothyroxine Sodium 0.075 MG Oral Table t levothyroxine (SYNTHROID, LEVOTHROID) 75 MCG tablet levothyroxine (SYNTHROID, LEVOTHROID) 75 MCG tablet 12:00:00 AM EST 75 ug Oral aborted Take 75 mcg by mouth [facility] 50 mg 03/20/2020 12:00:00 AM EST tablet 90 TAKE ONE TABLET BY MOUTH EVERY DAY TAKE ONE TABLET BY MOUTH EVERY DAY SOLD: 12/22/2020 [facility] Amlodipine 2.5 MG Oral Tablet amLODIPine (NORVASC) 2.5 MG tablet amLODIPine (NORVASC) 2.5 MG tablet 03/20/2020 12:00:00 AM EST 2.5 mg Oral aborted Take 2.5 mg by mouth [facility] Levothyroxine Sodium 0.075 MG Oral Tablet Levothyroxine Sodi um 03/19/2020 12:00:00 AM EST ORAL active M EDENT ([facility]) Mupirocin 0.02 MG/MG Topical Ointment Mupirocin 2 % Mupiroci n 2 % 03/05/2020 12:00:00 AM EST 1.0 {application} active Mupirocin 2 % eCW1 ([facility]) Mupirocin 0.02 MG/MG Topical Ointment Mupirocin 2 % Mupiroci n 2 % 03/05/2020 12:00:00 AM EST 1.0 {application} active Mupirocin 2 % eCW1 ([facility]) Mupirocin 0.02 MG/MG Topical Ointment Mupirocin 2 % Mupiroci n 2 % 03/05/2020 12:00:00 AM EST 1.0 {application} active Mupirocin 2 % eCW1 ([facility]) Mupirocin 0.02 MG/MG Topical Ointment Mupirocin 2 % Mupiroci n 2 % 03/05/2020 12:00:00 AM EST 1.0 {application} active Mupirocin 2 % eCW1 ([facility]) Mupirocin 0.02 MG/MG Topical Ointment Mupirocin 2 % Mupiroci n 2 % 03/05/2020 12:00:00 AM EST 1.0 {application} active Mupirocin 2 % eCW1 ([facility]) Mupirocin 0.02 MG/MG Topical Ointment Mupirocin 2 % Mupiroci n 2 % 03/05/2020 12:00:00 AM EST 1.0 {application} active Mupirocin 2 % eCW1 ([facility]) Mupirocin 0.02 MG/MG Topical Ointment Mupirocin 2 % Mupiroci n 2 % 03/05/2020 12:00:00 AM EST 1.0 {application} active Mupirocin 2 % eCW1 ([facility]) Mupirocin 0.02 MG/MG Topical Ointment Mupirocin 2 % Mupiroci n 2 % 03/05/2020 12:00:00 AM EST 1.0 {application} active Mupirocin 2 % eCW1 ([facility]) Mupirocin 0.02 MG/MG Topical Ointment Mupirocin 2 % Mupiroci n 2 % 03/05/2020 12:00:00 AM EST 1.0 {application} active Mupirocin 2 % eCW1 ([facility]) Mupirocin 0.02 MG/MG Topical Ointment Mupirocin 2 % Mupiroci n 2 % 03/05/2020 12:00:00 AM EST 1.0 {application} active Mupirocin 2 % eCW1 ([facility]) Mupirocin 0.02 MG/MG Topical Ointment Mupirocin 2 % Mupiroci n 2 % 03/05/2020 12:00:00 AM EST 1.0 {application} active Mupirocin 2 % eCW1 ([facility]) Mupirocin 0.02 MG/MG Topical Ointment Mupirocin 2 % Mupiroci n 2 % 03/05/2020 12:00:00 AM EST 1.0 {application} active Mupirocin 2 % eCW1 ([facility]) Mupirocin 0.02 MG/MG Topical Ointment mupirocin (BACTR OBAN) 2 % ointment mupirocin (BACTROBAN) 2 % ointment 03/05/2020 12:00:00 AM EST active APPLY 1 APPLICATION THREE TIMES A DAY FO R 14 DAYS [facility] Mupirocin 0.02 MG/MG Topical Ointment Mupirocin 2 % Mupiroci n 2 % 03/05/2020 12:00:00 AM EST 1.0 {application} active Mupirocin 2 % eCW1 ([facility]) Mupirocin 0.02 MG/MG Topical Ointment Mupirocin 2 % Mupiroci n 2 % 03/05/2020 12:00:00 AM EST 1.0 {application} active Mupirocin 2 % eCW1 ([facility]) Mupirocin 0.02 MG/MG Topical Ointment Mupirocin 2 % Mupiroci n 2 % 03/05/2020 12:00:00 AM EST 1.0 {application} active Mupirocin 2 % eCW1 ([facility]) Mupirocin 0.02 MG/MG Topical Ointment Mupirocin 2 % Mupiroci n 2 % 03/05/2020 12:00:00 AM EST 1.0 {application} active Mupirocin 2 % eCW1 ([facility]) Mupirocin 0.02 MG/MG Topical Ointment Mupirocin 2 % Mupiroci n 2 % 03/05/2020 12:00:00 AM EST 1.0 {application} active Mupirocin 2 % eCW1 ([facility]) Mupirocin 0.02 MG/MG Topical Ointment Mupirocin 2 % Mupiroci n 2 % 03/05/2020 12:00:00 AM EST 1.0 {application} active Mupirocin 2 % eCW1 ([facility]) 2 % 03/05/2020 12:00:00 AM EST ointment 22 APPLY 1 APPLICATION THREE TIMES A DAY FOR 14 DAYS APPLY 1 APPLICATION THREE TIMES A DAY FOR 14 DAYS SOLD : 03/07/2020 [facility] Mupirocin 0.02 MG/MG Topical Ointment Mupirocin 2 % Mupiroci n 2 % 03/05/2020 12:00:00 AM EST 1.0 {application} active Mupirocin 2 % eCW1 ([facility]) doxycycline hyclate 100 MG Oral Capsule DOXYCYCLINE HYCLATE 03/03/2020 12:00:00 AM EST capsule 20 TAKE ONE CAPSULE BY MOUTH EV JUDIE 12 HOURS FOR 10 DAYS TAKE ONE CAPSULE BY MOUTH EVERY 12 HOURS FOR 10 DAYS SOLD: 03/03/2020 [facility] doxycycline hyclate 100 MG Oral Capsule Doxycycline Hy clate 100 MG Doxycycline Hyclate 100 MG 03/03/2020 12:00:00 AM EST 1.0 {capsule} suspended Doxycycline Hyclate 100 MG eCW1 ([facility]) doxycycline hyclate 100 MG Oral Capsule Doxycycline Hy clate 100 MG Doxycycline Hyclate 100 MG 03/03/2020 12:00:00 AM EST 1.0 {capsule} active Doxycycline Hyclate 100 MG eCW1 ([facility]) doxycycline hyclate 100 MG Oral Capsule Doxycycline Hy clate 100 MG Doxycycline Hyclate 100 MG 03/03/2020 12:00:00 AM EST 1.0 {capsule} active Doxycycline Hyclate 100 MG eCW1 ([facility]) doxycycline hyclate 100 MG Oral Capsule Doxycycline Hy clate 100 MG Doxycycline Hyclate 100 MG 03/03/2020 12:00:00 AM EST 1.0 {capsule} active Doxycycline Hyclate 100 MG eCW1 ([facility]) doxycycline hyclate 100 MG Oral Capsule Doxycycline Hy clate 100 MG Doxycycline Hyclate 100 MG 03/03/2020 12:00:00 AM EST 1.0 {capsule} active Doxycycline Hyclate 100 MG eCW1 ([facility]) 50 mcg 02/02/2020 12:00:00 AM EDT tablet 90 TAKE ONE TABLET BY MOUTH EVERY MORNING TAKE ONE TABLET BY MOUTH EVERY MORNING SOLD: 02/02/2020 [facility] 1,250 mcg (50,000 unit) 01/13/2020 12:00:00 AM EDT capsule 4 TAKE 1 CAPSULE BY MOUTH ONCE A WEEK TAKE 1 CAPSULE BY MOUTH ONCE A WEEK SOLD: 05/02/2020 [facility] 20 mg 01/13/2020 12:00:00 AM EDT tablet 30 TAKE ONE TABLET BY MOUTH EVERY DAY TAKE ONE TABLET BY MOUTH EVERY DAY SOLD: 01/14/2020 [facility] 1,250 mcg (50,000 unit) 01/13/2020 12:00:00 AM EDT capsule 4 TAKE 1 CAPSULE BY MOUTH ONCE A WEEK TAKE 1 CAPSULE BY MOUTH ONCE A WEEK SOLD: 04/10/2020 [facility] 1,250 mcg (50,000 unit) 01/13/2020 12:00:00 AM EDT capsule 4 TAKE 1 CAPSULE BY MOUTH ONCE A WEEK TAKE 1 CAPSULE BY MOUTH ONCE A WEEK SOLD: 02/02/2020 [facility] Ergocalciferol 38220 UNT Oral Capsule Vitamin D (Ergocalcife rol) 01/13/2020 12:00:00 AM EDT active M [facility] ([facility]) 1,250 mcg (50,000 unit) 01/13/2020 12:00:00 AM EDT capsule 4 TAKE 1 CAPSULE BY MOUTH ONCE A WEEK TAKE 1 CAPSULE BY MOUTH ONCE A WEEK SOLD: 03/07/2020 [facility] 1,250 mcg (50,000 unit) 01/13/2020 12:00:00 AM EDT capsule 4 TAKE 1 CAPSULE BY MOUTH ONCE A WEEK TAKE 1 CAPSULE BY MOUTH ONCE A WEEK SOLD: 01/14/2020 [facility] 20 mg 01/13/2020 12:00:00 AM EDT tablet 30 TAKE ONE TABLET BY MOUTH EVERY DAY TAKE ONE TABLET BY MOUTH EVERY DAY SOLD: 04/11/2020 [facility] 20 mg 01/13/2020 12:00:00 AM EDT tablet 30 TAKE ONE TABLET BY MOUTH EVERY DAY TAKE ONE TABLET BY MOUTH EVERY DAY SOLD: 02/10/2020 [facility] 20 mg 01/13/2020 12:00:00 AM EDT tablet 30 TAKE ONE TABLET BY MOUTH EVERY DAY TAKE ONE TABLET BY MOUTH EVERY DAY SOLD: 03/12/2020 [facility] 2 mg 12/03/2019 12:00:00 AM EDT capsule 180 TAKE 1-2 CAPSULES BY MOUTH ONCE DAILY TAKE 1-2 CAPSULES BY MOUTH ONCE DAILY SOLD: 08/11/2020 [facility] 100 mg 11/08/2019 12:00:00 AM EDT tablet 90 TAKE ONE-HALF TABLET BY MOUTH TWICE A DAY TAKE ONE-HALF TABLET BY MOUTH TWICE A DAY SOLD: 02/25/2020 [facility] rivaroxaban 20 MG Oral Tablet rivaroxaban (XARELTO) 20 MG TABS rivaroxaban (XARELTO) 20 MG TABS 10/06/2019 12:00:00 AM EDT 20 mg Oral aborted Take 1 tablet (20 mg total) by mouth daily [facility] 1,000 mcg/mL 08/27/2019 12:00:00 AM EDT solution 3 INJECT 1ML ONCE A MONTH INJECT 1ML ONCE A MONTH SOLD: 03/07/2020 [facility] Levothyroxine Sodium 0.05 MG Oral Tablet levothyroxine (SYNTHROID, LEVOTHROID) 50 MCG tablet levothyroxine (SYNTHROID, LEVOTHROID) 50 MCG tablet 12:00:00 AM EDT 1 {tbl} Oral aborted Take 1 tablet by mouth daily [facility] Clobetasol Propionate 0.5 MG/ML Topical Cream 0.05 % CLOBETA MICK PROPIONATE 08/05/2019 12:00:00 AM EDT cream 30 APPLY THIN LAYER TOPICALLY TO AFFECTED AREAS TWO TIMES A DAY NEEDED FOR FLARE UPS APPLY THIN LAYER TOPICALLY TO AFFECTED AREAS TWO TIMES A DAY NEEDED FOR FLARE UPS SOLD: 07/28/2020 [facility] Labetalol hydrochloride 100 MG Oral Tablet labetalol ( NORMODYNE) 100 MG tablet labetalol (NORMODYNE) 100 MG tablet 04/23/2019 12:00:00 AM EST 0.5 {tbl} Oral aborted Take 0.5 tablets by mouth 2 (two) times a day [facility] Losartan Potassium 50 MG Oral Tablet losartan (COZAAR) 50 MG tablet losartan (COZAAR) 50 MG tablet 02/22/2019 12:00:00 AM EDT 50 mg Oral aborted Take 50 mg by mouth daily [facility] rivaroxaban 20 MG Oral Tablet rivaroxaban (Xarelto) 20 MG TABS rivaroxaban (Xarelto) 20 MG TABS 20 mg Oral aborted Harsh e 20 mg by mouth daily [facility] Furosemide 40 MG Oral Tablet furosemide (LASIX) 40 MG tablet furosemide (LASIX) 40 MG tablet 20 mg Oral aborted Take 20 mg by mouth as needed [facility] Furosemide 20 MG Oral Tablet furosemide (LASIX) 20 MG tablet furosemide (LASIX) 20 MG tablet 20 mg Oral aborted Take 20 mg by mouth daily as needed [facility] Labetalol hydrochloride 100 MG Oral Tablet labetalol ( NORMODYNE) 100 MG tablet labetalol (NORMODYNE) 100 MG tablet 100 mg Oral ab orted Take 100 mg by mouth 2 (two) times a day [facility] Losartan Potassium 50 MG Oral Tablet losartan (COZAAR) 50 MG tablet losartan (COZAAR) 50 MG tablet 50 mg Oral aborted Ta ke 50 mg by mouth daily [facility] ferrous sulfate 325 MG Oral Tablet ferrous sulfate 325 (65 FE) MG tablet ferrous sulfate 325 (65 FE) MG tablet 325 mg Oral aborted Take 325 mg by mouth [facility] Insurance Providers Payer name Policy type / Coverage type Policy ID Covered libertarian ID Covered libertarian's relationship to finney Policy Finney Plan Information [place] [id number] Self 1 [id number] [place] Primary [id number] Self 1 [id number] Medicare - NGS Medicare Primary [id number] [id number] Self [id number] MEDICARE [id number] SP [id number] [place] [id number] [id number] Self 13 [id number] [place] [id number] Self [id number] [place] Primary [id number] [id number] Self 13 [id number] Medicare - NGS Medicare Primary [id number] Self [id number] [place] Primary [id number] [id number]6.2405.0 Self 13 [id number] [place] Primary [id number] Self [id number] [place] Primary [id number] 2.16.840.1.658797.3.227.99.806.2405.0 Self 13 [id number] [place] Primary [id number] 2.16.840.1.293003.3.227.99.806.2405.0 Self 13 [id number] Medicare - NGS Medicare Primary [id number] 2.16.840.1.439606.3.227.99.177.1932.0 Self [id number] [place] Primary [id number] 2.16.840.1.597747.3.227.99.806.2405.0 Self 13 [id number] [place] Primary [id number] 2.16.840.1.519937.3.227.99.806.2405.0 Self 13 [id number] [place] Medicare Primary [id number] 2.16.840.1.120838.3.227.99.806.2405.0 Self 13 [id number] [place] Primary [id number] 2.16.840.1.377332.3.227.99.806.2405.0 Self 13 [id number] [place] Primary [id number] 2.16.840.1.577471.3.227.99.806.2405.0 Self 13 [id number] Medicare - NGS Medicare Primary [id number] 2.16840.1.780571.3.227.99.177.1932.0 Self 13 [id number] [place] Primary [id number] 2.16.840.1.708762.3.227.99.806.2405.0 Self 13 [id number] [place] Medicare Primary [id number] 2.16.840.1.791257.3.227.99.806.2405.0 Self 13 [id number] [place] Primary [id number] 2.16840.1.405368.3.227.99.806.2405.0 Self 13 [id number] Medicare Part B [facility] [id number] 0 [id number] [place] Primary [id number] 2.16840.1.898092.3.227.99.806.2405.0 Self 13 [id number] [place] Medicare Primary [id number] 2.16840.1.225090.3.227.99.806.2405.0 Self 13 [id number] [place] Primary [id number] 2.16840.1.801029.3.227.99.806.2405.0 Self 13 [id number] [place] Medicare Primary [id number] 2.16840.1.917234.3.227.99.806.2405.0 Self 13 [id number] [place] Medicare Primary [id number] 2.16840.1.120830.3.227.99.806.2405.0 Self 13 [id number] [place] Medicare Primary [id number] 2.16840.1.351725.3.227.99.806.2405.0 Self 13 [id number] MEDICARE [id number] xxxxxxxxxxx [id number] MEDICARE [id number] [facility] [id number] E30 [address] SUE A UNAVAILABLE [id number] UNAVAI LABLE Medicare - NGS Medicare Primary [id number] Self Medicare Part B [facility] [id number] [place] Medicare Primary [id number]. 99.806.2405.0 Self [place] Medicare Primary [id number] 2.16840.1.630924.3.227.99.806.2405.0 Self 13 [id number] [place] Medicare Primary [id number] 2.16840.1.689500.3.227.99.806.2405.0 Self 13 [id number] [place] Medicare Primary [id number] 2.16840.1.181352.3.227.99.806.2405.0 Self 13 [id number] MEDICARE [id number] SP [id number] MEDICARE [id number] [facility] [id number] [facility] (pr) Medigap Part B [id number] Self [id number] [employer] [id number] 0 84 [id number] United [employer] [id number] 0 84 [id number] SUE UNAVAILABLE [id number] UN AVAILABLE [facility] Medigap Part B [id number] Self United Healthcare Medigap Part B [id number] Self [id number] [facility] 2 [id number] 1 [id number] United [employer] (pr) Medigap Part B [id number] 2.0.1.392643.3.227.99.991.04975.0 Self [id number] [facility] [id number] xxxxxxxxx [id number] C [id number] [facility] [id number] [facility] [id number] [facility] [id number] UNITED HEALTHCARE [id number] SP [id number] UNITED HEALTHCARE [id number] SP [id number] [facility] Commercial F [id number] SELF [id number] Medicare C [id number] SELF [id number] [facility] Jurisdiction A [facility] C [id number] SELF [id number] [place] Medicare Primary [id number] 2.0.1.665526.3.227.99.991.60543.0 Self 1 [id number] [place] Medicare Primary [id number] 2.0.1.076351.3.227.99.991.19083.0 Self 1 [id number] [place] Medicare Primary [id number] Self [id number] Medicare [place] Medicare Primary [id number] 2.16.840.1.339448.3.227.99.991.82372.0 Self 1 [id number] [place] Medicare Primary [id number] Self [id number] [facility] Part B [id number] Self [id number] [place] Medicare Primary [id number] 2.16.840.1.800788.3.227.99.991.16860.0 Self 7 [id number] Medicare [place] Medicare Primary [id number] 2.16.840.1.493981.3.227.99.991.48457.0 Self 1 [id number] Medicare [place] Medicare Primary [id number] 2.16.840.1.283291.3.227.99.991.30390.0 Self 7 [id number] Medicare Part B [facility] [id number] 0 [id number] [facility] [id number] SP [id number] INSURANCE COVID-19 COVID [facility] C OVID INSURANCE COVID-19 [id number] xxxxx [id number] INSURANCE COVID-19 COVID [facility] C OVID [facility] PI PI [place] PART B C [id number] S [id number] MEDICARE C [id number] S [id number] Medicare [place] Medicare Primary [id number] 2.16.840.1.460863.3.227.99.806.2405.0 Self [id number] Medicare [place] Medicare Primary [id number] 2.16.840.1.818391.3.227.99.806.2405.0 Self [id number] [place] Medicare Primary [id number] 2.16.840.1.155219.3.227.99.806.2405.0 Self [id number] [place] Medicare Primary [id number] 2.16.840.1.328597.3.227.99.806.2405.0 Self [id number] [place] Medicare Primary [id number] Self [id number] [employer] + Claims [facility] Part B [id number] Family Dependent [id number] [employer] [id number] Self [id number] [facility] Part B [id number] Self [id number] [place] Medicare Primary [id number] Self [id number] [facility] PART B C [id number] S [id number] NGS MEDICARE [place] O [id number] S [id number] [facility] O [id number] S [id number] MEDICARE C [id number] S [id number] SELF PAY ONLY [id number] SP [id number] United [employer] Commercial [id number] Self [employer] [id number] Self MEDICARE [id number] SP [id number] [facility] [id number] SP [id number] [facility] -[facility]/P [id number] 18 [id number] MEDICARE [id number] SP [id number] MEDICARE -O/P [id number] 18 [id number] United Healthcare Commercial [id number] Self Medicare [facility] Medicare Primary [id number] Self [employer] (pr) Medigap Part B [id number] Self Medicare [facility] Medicare Primary [id number] Self UNITED HEALTHCARE [id number] SP [id number] UNITED HEALTHCARE [id number] SP [id number] SELF PAY 2 UNAVAILABLE 1 UNAVAILA BLE [employer] PPO 2 [id number] 1 [id number] [facility] PPO 2 [id number] 1 [id number] [facility] SVC OPTIONS C [id number] S [id number] [place] Medicare Primary [id number] [id number] Self [id number] [facility] Commercial [id number] [id number] .[id number] Self [id number] MEDICARE PI PI Problems, Conditions, and Diagnoses Code Display Name Description Problem Type Effective Dates Data Source(s) I48.91 Unspecified atrial fibrillation Unspecified atri al fibrillation Diagnosis 02/02/2021 07:04:08 AM EDT [facility] R62.7 Adult failure to thrive Adult failure to thrive Diagno sis 01/26/2021 06:49:00 AM EDT [facility] I10 Essential (primary) hypertension Essential (primary) h ypertension Diagnosis 01/26/2021 06:49:00 AM EDT [facility] I34.0 Nonrheumatic mitral (valve) insufficienc y Nonrheumatic mitral (valve) insufficienc Diagnosis 01/26/2021 06:49:00 AM EDT [facility] E78.5 Hyperlipidemia, unspecified Hyperlipidemia, unspecifie d Diagnosis 01/26/2021 06:49:00 AM EDT [facility] I25.10 Atherosclerotic heart diseas e of [place] coronary artery without angina pectoris Atherosclerotic heart disease of [place] Diagnosis 01/26/2021 06:49:00 AM EDT [facility] I35.0 Nonrheumatic aortic (valve) stenosis Nonrheumati c aortic (valve) stenosis Diagnosis 01/26/2021 06:49:00 AM EDT [facility] 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 Acute on chronic combined systolic (aracelis Diagnosis 01/26/2021 06:49:00 AM EDT [facility] R60.9 Edema, unspecified Edema, unspecified Diagnosis 10:29:41 AM EST [facility] 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 Acute on chronic combined systolic (aracelis estive) and diastolic (congestive) heart failure [id number] 01/21/2021 12:00:00 AM EDT [facility] I34.0 Nonrheumatic mitral valve regurgitation Nonrheumatic mitral valve regurgitation [id number] 01/18/2021 12:00:00 AM EDT [facility] J45.40 Uncomplicated moderate persistent asthma Uncomplicated moderate persistent asthma Problem 11/30/2020 12:00:00 AM EDT [facility] ([facility], ) R05 Cough Cough Problem 11/30/2020 12:00:00 AM ED T [facility] ([facility], ) T14.8XXA [id number] Bruising Problem 10/05/2020 12:00:00 AM ED T eCW1 ([facility]) L57.0 [id number] Actinic keratosis Problem 10/05/2020 12:00:0 0 AM EDT eCW1 ([facility]) L81.4 [id number] Lentig[place] Problem 10/05/2020 12:00:00 AM ED T eCW1 ([facility]) L82.1 [id number] Seborrheic keratoses Problem 10/05/2020 12:0 0:00 AM EDT eCW1 ([facility]) S81.802A [id number] Wound of left lower extremity, initial en counter Problem 10/05/2020 12:00:00 AM EDT eCW1 ([facility]) L70.0 [id number] [place] Problem 10/05/2020 12:00:00 AM ED T eCW1 ([facility]) D22.5 [id number] Nevus of back Problem 10/05/2020 12:00:00 AM EDT eCW1 ([facility]) L72.0 [id number] [place] Problem 10/05/2020 12:00:00 AM ED T eCW1 ([facility]) T14.8XXA [id number] Open wound Problem 08/25/2020 12:00:00 AM ED T eCW1 ([facility]) S80.12XA [id number] Hematoma of left lower leg Problem 08/25/2020 12:00:00 AM EDT eCW1 ([facility]) S81.812A [id number] Noninfected skin tear of left leg Problem 08/25/2020 12:00:00 AM EDT eCW1 ([facility]) L97.821 [id number] Non-pressure chronic ulcer of other part of left lower leg limited to breakdown of skin Problem 08/25/2020 12:00:00 AM EDT eCW1 ([facility]) L97.822 [id number] Non-pressure chronic ulcer of other part of left lower leg with fat layer exposed Problem 08/25/2020 12:00:00 AM EDT eCW1 ([facility]) C44.629 [id number] 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 Problem 06/09/2020 12:00:00 AM EST eCW1 ([facility]) C44.722 [id number] 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 06/09/2020 12:00:00 AM EST eCW1 ([facility]) C44.329 [id number] Squamous cell carcinoma of forehead Probl em 05/07/2020 12:00:00 AM EST eCW1 ([facility]) Surgeries/Procedures Procedure Description Date Indications Data Source(s) OFFICE OUTPATIENT VISIT 15 MINUTES 02/22/2021 12:00:00 AM EDT [facility] ([facility]) OFFICE OUTPATIENT VISIT 15 MINUTES 02/11/2021 12:00:00 AM EDT [facility] ([facility]) OFFICE OUTPATIENT VISIT 25 MINUTES 02/04/2021 12:00:00 AM EDT [facility] ([facility]) ECG ROUTINE ECG W/LEAST 12 LDS W/I&R <td>POCT AMB EKG</td><td>Routine</td><td>02/02/2021 8:02 AM EDT</td><td> Atrial fibrillation</td><td> </td> 02/02/2021 08:02:00 AM EDT Atrial fibrillation [facility] Atrial fibrillation OFFICE OUTPATIENT VISIT 25 MINUTES 01/28/2021 12:00:00 AM EDT [facility] ([facility]) RADEX SPINE ENTIRE SURVEY STD ANTEROPOST&LAT <td>CARDI AC CATHETERIZATION</td><td>Routine</td><td>01/26/2021 10:50 AM EDT</td><td> Aortic valve stenosis, etiology of cardiac valve disease unspecified Acute on chronic combined sy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 Coronary artery disease involving [place] coronary artery of [place] heart without angina pectoris Hyperlipidemia, unspecified hyperlipidemia type Atrial fibrillation Nonrheumatic mitral valve regurgitation Essential hypertension Failure to thrive in adult</td><td> </td> 01/26/2021 10:50:33 AM EDT Failure to thrive in adultEssential hype rtensionNonrheumatic mitral valve regurgitationAtrial fibrillationHyperlipidemia, unspecified hyperlipidemia type Coronary artery disease involving [place] coronary artery of [place] heart without angina pectorisAcute on chronic combined sy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Aortic valve stenosis, etiology of cardiac valve disease unspecified [facility] Failure to thrive in adult Essential hypertension Nonrheumatic mitral valve regurgitation Atrial fibrillation Hyperlipidemia, unspecified hyperlipidem ia type Coronary artery disease involving [place] coronary artery of [place] heart without angina pectoris Acute on chronic combined systolic (aracelis estive) and diastolic (congestive) heart failure Aortic valve stenosis, etiology of cardi ac valve disease unspecified POCT POTASSIUM <td>POCT POTASSIUM</td><td>R outine</td><td>01/26/2021 9:22 AM EDT</td><td></td><td> </td> 01/26/2021 09:22:00 AM EDT [facility] ECG ROUTINE ECG W/LEAST 12 LDS TRCG ONLY W/O I&R <td>E CG 12- LEAD</td><td>Routine</td><td>01/26/2021 7:45 AM EDT</td><td></td><td></td> 01/26/2021 07:45:03 AM EDT [facility] POCT AMB EKG <td>POCT AMB EKG</td><td>Rou rd</td><td>12/21/2020 9:57 AM EDT</td><td> Atrial fibrillation</td><td> </td> 12/21/2020 09:57:00 AM EDT Atrial fibrillation [facility] Atrial fibrillation OFFICE OUTPATIENT VISIT 15 MINUTES 12/02/2020 12:00:00 AM EDT [facility] ([facility]) Spirometry 11/30/2020 12:00:00 AM EDT M [facility] ([facility], ) OFFICE OUTPATIENT VISIT 25 MINUTES 11/30/2020 12:00:00 AM EDT [facility] ([facility], ) OFFICE OUTPATIENT VISIT 25 MINUTES 11/12/2020 12:00:00 AM EDT [facility] ([facility]) Kirkpatrick Cre W/I 7 Days Of DC, Comm W/I 2 Dys 10/20/2020 12:00:00 [facility] FINE NEEDLE ASPIRATION W/O IMAGING GUIDANCE 10/20/2020 12:00:00 AM EDT eCW1 ([facility]) FINE NEEDLE ASPIRATION W/O IMAGING GUIDANCE 10/13/2020 12:00:00 AM EDT eCW1 ([facility]) BLOOD COUNT COMPLETE AUTO&AUTO DIFRNTL WBC COUNT <td>C BC AND DIFFERENTIAL</td><td>Routine</td><td>10/12/2020</td><td></td><td> </td> 10/12/2020 12:00:00 AM EDT [facility] HEPATIC FUNCTION PANEL <td>HEPATIC FUNCTION PANEL</td><td>Routine</td><td>10/11/2020</td><td></td><td> </td> 10/11/2020 12:00:00 AM EDT [facility] BASIC METABOLIC PANEL CALCIUM TOTAL <td>BASIC METABOLI C PANEL</td><td>Routine</td><td>10/11/2020</td><td></td><td> </td> 10/11/2020 12:00:00 AM EDT [facility] TROPONIN QUANTITATIVE <td>TROPONIN I</td><td>Routine</td><td>10/10/2020</td><td></td><td> </td> 10/10/2020 12:00:00 AM EDT [facility] FINE NEEDLE ASPIRATION W/O IMAGING GUIDANCE 10/06/2020 12:00:00 AM EDT eCW1 ([facility]) FINE NEEDLE ASPIRATION W/O IMAGING GUIDANCE 09/29/2020 12:00:00 AM EDT eCW1 ([facility]) FINE NEEDLE ASPIRATION W/O IMAGING GUIDANCE 09/22/2020 12:00:00 AM EDT eCW1 ([facility]) FINE NEEDLE ASPIRATION W/O IMAGING GUIDANCE 09/15/2020 12:00:00 AM EDT eCW1 ([facility]) OFFICE OUTPATIENT VISIT 25 MINUTES 09/08/2020 12:00:00 AM EDT [facility] ([facility]) Medication: 4% Lidocaine topical cream (Anecream) 30 gm 09/07/2020 12:00:00 AM EDT eCW1 ([facility]) FINE NEEDLE ASPIRATION W/O IMAGING GUIDANCE 08/25/2020 12:00:00 AM EDT eCW1 ([facility]) Medication: 2% Lidocaine intradermal 08/25/2020 12:00: 00 AM EDT eCW1 ([facility]) OFFICE OUTPATIENT VISIT 15 MINUTES 08/18/2020 12:00:00 AM EDT [facility] ([facility]) ECG ROUTINE ECG W/LEAST 12 LDS W/I&R <td>POCT AMB EKG</td><td>Routine</td><td>06/25/2020 11:24 AM EST</td><td> Atrial fibrillation</td><td> </td> 06/25/2020 04:24:00 PM EST Atrial fibrillation [facility] Atrial fibrillation Staple Removal 06/22/2020 12:00:00 AM EST eCW1 ([facility]) OFFICE OUTPATIENT VISIT 15 MINUTES 06/11/2020 12:00:00 AM EST [facility] ([facility]) Med: Derm Lidocaine with Epinephrine Inj ection 1% with 2 ml sodium bicarbonate Intradermally to marked areas 06/09/2020 12:00:00 AM EST eCW1 ([facility]) Suture Removal 05/14/2020 12:00:00 AM EST eCW1 ([facility]) ASTHMA SYMPTOMS EVALUATED 05/07/2020 12:00:00 AM EST eCW1 ([facility]) POCT AMB EKG <td>POCT AMB EKG</td><td>Rou rd</td><td>03/30/2020 7:25 AM EST</td><td> Atrial fibrillation</td><td> </td> 03/30/2020 12:25:00 PM EST Atrial fibrillation [facility] Atrial fibrillation Electrocardiogram Complete 03/19/2020 12:00:00 AM EST [facility] Electrocardiogram Complete 02/17/2020 12:00:00 AM EDT [facility] ([facility]) Results ID Date Data Source [id number] 02/18/2021 10:45:00 AM EDT [facility] Name Value Range Interpretation Code Description Data Laura rce(s) Supporting Document(s) SARS-CoV-2 (COVID-19) RNA [Presence] in Respiratory specimen by JUAN A with probe detection Not Detected [facility] This lab was ordered by [facility] and reported by [employer] ID Date Data Source [id number] 02/18/2021 10:45:00 AM EDT [facility] Name Value Range Interpretation Code Description Data Laura rce(s) Supporting Document(s) Coronavirus 2019 Nasopharygeal Laboratory test result [facility] ([facility]) ASSAY INFORMATION: Real Time RT-PCR or T MA. Both RT-PCR and TMA are nucleic acid amplification tests (NAAT) which are molecular testing modalities and recommended by the CDC for passenger travel. Testing and International Air Travel, cdc.gov/coronavirus/2019-ncov/travelers/bdtemyh-ntu-gcfwdi.html 06/18/2020 NOTE: The COVID-19 assay is under Emergency Use Authorization (EUA) by the U.S. Food and Drug Administration. [facility] are designated as high complexity laboratories by the Clinical Laboratory Improvement Amendments of 1988 (CLIA) and are qualified to perform this test. Not Detected ID Date Data Source [id number] 01/26/2021 10:56:23 AM EDT [facility] Name Value Range Interpretation Code Description Data Laura rce(s) Supporting Document(s) &PDF [facility] NXAVXa9kRhMTBiQt71/RPPbyKYVmm3JtVQurYMo4XWrdTOJeT1ZypMnqHKnGUDYeC91XIMFtZFLwQYca waW SuF8lbqVIskwVIv1Hzy8BdtZxicsmIEpIkDp1ERxEdDV4vbn3XBBLmRJ9mme2BVCL6EH3PoEy5NFSoX2 HyYUDvPEVhe9HrSH6GXU6fdMdrJwC3Ji9+ROwvRQS5hmKtbO5NJFIyNOil22ALkc/A/K3R8DMxKQfc1i eWXpcpqD5rFOCIvI9yYPd8xSiELKL+itJkV2yU6em5 QBBVoe3NykNckV7huPyDWsL//tL6g7PxGMR/u/bDTp44pTK//G0fDZFpr9qNmzDz+OrUynDGV4JMiwia 0XTA5qt0CptLppmj8zFO1KlnA8VOjf+e/cdBb4kv32xBjnpn26Og4wT7XxReMCh7iNU0pFj5CH9/pbSf x9KFu8fz73aW9UVM7oOuiGtDwqx1wyVscuoKO7ZuJa n8TQ5/LodBUg6/L4a+35pR8JUauRbYGJ/ETbR8P775WqnVobLK8ckmI03X/bhW3kY0upt2d40bfTx6K7 98h4B8j++n34Sjnq4q91LF5PAQDT5hBQuOThCsC/O2onbtAGYzOYv5RjVELRpnDyNGwOscqbtdji0hVq 4vrH4n9HZu6mtvORao89ZZkf6W2L/VE08dc1WFaFlM fvQW1xfMcji7xOlRxzfTbqceOZv8aN+0D1qQSvLOpdlPkLbV9WjdAuuNjC7+yJcFDnwmWfBSTxCE3jE7 bYjDZEuSSiI+bqpnm1n+f35jstnC2i1VFB4POOmXQqbkl9jZE6Ki5ZMUSyYROb5njLwIo9syM9QNbTeE Edgar+Cvx8/MeBnAxmbL2srWQqMGVDPyFGN6MK8sJxB4 [file] IaKb9YJeYcBECKRjGsGQ8EDWq= ID Date Data Source [id number] 01/26/2021 09:31:24 AM EDT [facility] Name Value Range Interpretation Code Description Data Laura rce(s) Supporting Document(s) POC POTASSIUM 5.2 MMOL/L (3.6-5.2) [facility] PERFORMED BY [facility] CLINICAL STAFF ID Date Data Source [id number] 01/26/2021 08:51:41 AM EDT [facility] Name Value Range Interpretation Code Description Data Laura rce(s) Supporting Document(s) EKG [facility] YSFGZr9bUiTLGjQrh6AnPlPqKUHjRG3tygh1H2B0wQLcE5HwiJFox5cwO4YpC3XtOHGoEIQBKA5StGYp jb2 [file] Ec3Cc467KFEfQCYOArr+ZarprVEphVjmBZNVOEGkPBLAFGJJQ1T= ID Date Data Source [id number] 01/22/2021 10:05:00 AM EDT [facility] ([facility]) Name Value Range Interpretation Code Description Data Laura rce(s) Supporting Document(s) Coronavirus 2019 Nasopharygeal Laboratory test result [facility]) ASSAY INFORMATION: Real Time RT-PCR NOTE: The COVID-19 assay has been cleared by the U.S. Food and Drug Administration under the Emergency Use Authorization (EUA). [facility] are designated as high complexity laboratories by the Clinical Laboratory Improvement Amendments of 1988(CLIA) and are qualified to perform this test. Not Detected ID Date Data Source [id number] 01/22/2021 10:05:[address] [facility] Name Value Range Interpretation Code Description Data Laura rce(s) Supporting Document(s) SARS-CoV-2 (COVID-19) RNA [Presence] in Respiratory specimen by JUAN A with probe detection Not Detected [facility] This lab was ordered by [facility] and reported by [employer]. 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/r55L12ugv6HkdLw+Lmfh+fLq6/nF8+u66GL/IL+ [file] DQogICAgICAgICAgICAgICAgICAgICAgICAgICAgIC AgICAgICAgICAgICAgICAgICAgICAgICAgICAgICAgICAgICAgICAgICAgICAgICAgICAgICAgICAgIC AgICAgICAgICAgDQogICAgICAgICAgICAgICAgICAgICAgICAgICAgICAgICAgICAgICAgICAgICAgIC AgICAgICAgICAgICAgICAgICAgICAgICAgICAgICAg ICAgICAgICAgICAgICAgICAgICAgDQogICAgICAgICAgICAgICAgICAgICAgICAgICAgICAgICAgICAg ICAgICAgICAgICAgICAgICAgICAgICAgICAgICAgICAgICAgICAgICAgICAgICAgICAgICAgICAgICAg ICAgDQogICAgICAgICAgICAgICAgICAgICAgICAgIC AgICAgICAgICAgICAgICAgICAgICAgICAgICAgICAgICAgICAgICAgICAgICAgICAgICAgICAgICAgIC AgICAgICAgICAgICAgDQogICAgICAgICAgICAgICAgICAgICAgICAgICAgICAgICAgICAgICAgICAgIC AgICAgICAgICAgICAgICAgICAgICAgICAgICAgICAg ICAgICAgICAgICAgICAgICAgICAgICAgDQogICAgICAgICAgICAgICAgICAgICAgICAgICAgICAgICAg ICAgICAgICAgICAgICAgICAgICAgICAgICAgICAgICAgICAgICAgICAgICAgICAgICAgICAgICAgICAg ICAgICAgDQogICAgICAgICAgICAgICAgICAgICAgIC AgICAgICAgICAgICAgICAgICAgICAgICAgICAgICAgICAgICAgICAgICAgICAgICAgICAgICAgICAgIC AgICAgICAgICAgICAgICAgDQogICAgICAgICAgICAgICAgICAgICAgICAgICAgICAgICAgICAgICAgIC AgICAgICAgICAgICAgICAgICAgICAgICAgICAgICAg ICAgICAgICAgICAgICAgICAgICAgICAgICAgDQogICAgICAgICAgICAgICAgICAgICAgICAgICAgICAg ICAgICAgICAgICAgICAgICAgICAgICAgICAgICAgICAgICAgICAgICAgICAgICAgICAgICAgICAgICAg ICAgICAgICAgDQogICAgICAgICAgICAgICAgICAgIC AgICAgICAgICAgICAgICAgICAgICAgICAgICAgICAgICAgICAgICAgICAgICAgICAgICAgICAgICAgIC WhVVXcJAMcYKTaTVKmPLHgCQEzMSo0J3efHMMeQJYwNP1jCKi4El2+BVpCMuYpBFK8ixCtvH3LWE8yz0 PqPXizBAIiq0EjYLm6ZR0HANNrAWgcWG1CLQrkjl6Y GFCzOLNcdAEMm8deNqLnIZP9OHCfVaomYK8BBECdP7fncuGbGYInQXQFVAbaJOQHSThhDNEUWI6ZIzRr L7EidC73DKEDKi8+LJhdteVlJluKLxYgLJIvb9RwKEd8KZ4AQXLlOWwtBP1LKUEhuQ0lLUtuGN8XSiMe HGYnZBVCFdPmO50swYMyKHc6V0BnQxWlQVNlHbifPP MgPDwvTmFtZXMgWyBdDQogID4+ID4+XZqsUB5ZFVcjqlAwCAXaVr0IPHHeIQA7WPWbdXOfNdufNBASZA jnWY2EhSZkBKS1iA7xPMpqIZHeVSHrY0wJMnXunQrgKB58oIyxldSziFNtHUh+Jt7KFA8wk2HcLId7xu QpRZtxQPLqJOqmMMIcIQVoVRJhPDI4CMZ6USBWAbGt JNRyVRObJJdbVQGaUHTbsb2HVPTjILTxMqQpMwTtARSlJYGeQSxcGWGrCVR7NgL1MBFbGLFkOH4WGsHd QOIaFXGiTWooDUWwWYRtms3AJYUeTZQiLpe3WbLoIIBrHHRtEZcnAGNeKZB7WHc3RFRtTSFrYT6LKaKn NYBlDZy5AYOiVJVzYWMbks6AQRTfVQClGMH8CSJmIT ZxGJRuAMynPIVaEXFwVXabAJBsYMWuUB1SXeLyTAShWZQlAghwOAUsTHQjbj2LXGBvCYZfQPUeKrPkZK UvVOMiVGfzXHQuJODqGFR1CIBqNUSjZY3DNhJdJBHkLZH9JCjqQNUiHMNmrh1YQPOhNIZhPeZ5UrRqJR LjYXXcKRzaMLWgSVStAYo8JEZmBFYjAQ6YDzJiLONj ZWUvDuLiYKXhTSXeay8JWIWlHRWfFUKgCJIvBWJyJXJbUChvHYAqENG4OqW9FXVbEAYyFK6CXyVgTJEc FKQ5PHJxKRJwZSWgyk1ESMNwWVBnZJL5QGIcDEYkACTiAFulGPItYIC8IIG6TBAlBQVnCZ1SGzBnUDPg QXN2RZjkEWZpVEFqtp7MNYJxZOWaBrV3WVAkNEMrAT QgMPjgTWLzRTQ3Nsl2KONvSMGsTX2UXiYnNFNfHES8WSVkPTYnDWSbfj0COZLeRICxKeVoVpCtEONlVD PdZFosDGTvRQU8FiH1ODNyLWNmZT6QOoFbTWCzWOo7TJGiCFSaJVEmdn1JIXPaXDKiGFThQTIpLQGgIF NpVNpnZFJxBVB2DVg2PKPbRYPhNF3CAeExURwfFIOC Pfn2GZdmU9a1CDLtTM1LE3Jul7ZrUdQlCHVOBWqrBO2kroEjQXZnSk6JM8nDWui9LGf1MSKpJ5E2QJDo TVSqNeE1Uhu8ZBg0XhliB6TiHH9wYOfyUEDkBpC6KvCrTGRePDJeLPcrHDa4YhrmIJPjGzHcBtFlHK7H Pd0ORwJ5OTR3rQCkDi5XVIb3RpALStCwDU0CTSu= ID Date Data Source [id number] 11/30/2020 09:16:00 AM EDT [facility] ([facility]) Name Value Range Interpretation Code Description Data Laura rce(s) Supporting Document(s) PDFReport Laboratory test result [facility] ([facility]) FVC-Pred 1.76 L [facility] ([facility]) FVC-%Pred-Pre 75 L [facility] ([facility]) FVC-Pre 1.32 L [facility] ([facility]) Fev1-Pred 1.28 L [facility] ([facility]) Fev1-Pre 0.90 L [facility] ([facility]) FVC-LLN 1.21 L [facility] ([facility]) Fev1-%Pred-Pre 70 L [facility] ([facility]) Fev1-LLN 0.81 L [facility] ([facility]) Fev6-Pred 1.64 L [facility] ([facility]) Fev6-Pre 1.32 L [facility] ([facility]) Fev6-%Pred-Pre 80 L [facility] ([facility]) Sze2uim-Hmgm 74 % [facility] ([facility]) Fev6-LLN 1.10 L [facility] ([facility]) Uae7xgm-Ekt 68 % [facility] ([facility]) Esr1rby-AIY 64 % [facility] ([facility]) Ucf8qum-%Pred-Pre 92 % [facility] ([facility]) Krc9yqq-Iyf 100 % [facility] ([facility]) Npd0uwl-Cxdl 93 % [facility] ([facility]) Wib6cdg-%Pred-Pre 107 % [facility] ([facility]) FEFMax-Pred 3.68 L/E/sec [facility] ([facility]) FEFMax-Pre 1.60 L/E/sec [facility] ([facility]) FEFMax-LLN 2.32 L/E/sec [facility] ([facility]) FEFMax-%Pred-Pre 43 L/E/sec [facility] ([facility]) Ltl6141-Ssea 0.98 L/E/sec [facility] ([facility]) Xch9361-Nxe 0.56 L/E/sec [facility] ([facility]) ExpTime-Pre 7.99 sec [facility] ([facility]) Dco3264-%Pred-Pre 57 L/E/sec [facility] ([facility]) Pgn1374-FEP -0.01 L/E/sec [facility] ([facility]) Cuj7whb3-%Pred-Pre 87 % [facility] ([facility]) Ubh2jww6-Gadj 77 % [facility] ([facility]) Gxk1hxz9-Gea 68 % [facility] ([facility]) Elj1aft5-DXZ 69 % [facility] ([facility]) ID Date Data Source [id number] 11/17/2020 08:45:00 AM EDT [facility] Name Value Range Interpretation Code Description Data Laura rce(s) Supporting Document(s) Follow Up [facility] FMRPHk5hNoUWXaMuWONaGmkIAExkSTxmKWUjT6J6MDlrGx7KKScjkqOkZRRaKx2+VWWtPV6ulc2cMWIx gMy [file] 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/6PDY5wpauSlhXKceSePJyEInfX4tRwO7g9QQZcy+bMpbA+oULRIsedOvmcXwrWMBEcnZFLuSkwLKz [file] Fm+Uixy8yoV+hu9X/A83DREPsgKaBVNobKK4ltHuDVf8dua/business data analyst/rRsdp/TJXkeMvVTnYB2V8aChCtpo 2KEBpMhwO16pEl6Wav/8rYEvMSFMMiyCEpkA/X/R3fEmxaiYKjswmg3X6tVR2q+MF3TGl3aT06kCTO69 PsLUf9C+/l2ttNm+qwZ4PUIGn0x96Ksq/zKRHNS/2S SskfriO4Uj/kmkzfPwRgX7zLR+CZ4fgD/e8J+I6HVhxbHsUFTpTO9D+OBBxnS3Vy0EJ05hfBIc7hwv0d m/A7bLXCjV01sBwT7r1UBrlAdeuH2lJI7mmlTmQO/kpnTPs4jG+STfI+N1yw0ikFdfUZxqseII1l2+x2 5htrU36PjlLmtnsybddCisqCHtsp2gxgv9Ptf90abX e9xZPuryoHCnzkri1unMHkDTw3IpWJp+oQDzEt7235cQFINHOGblH6PwbMC81q7tOb6dz5Cprbm++Jese [file] pR1j8kykZp3P1/Tomás+utJ2zc9ngZNsUki1fkOTxrADADCfCzuSfw3OTapRMhuc0N0cEOpxbMD3a2x52c [file] efficiency 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+tJ [file] a629J6y8atvAG0xgp6jBkZhU88Mrfh1HWxLp8F+María [file] P09cCk5077a6s8IgRs98NR6cB1GS2se71H2ew88cCg p8IjQkuw/K2TmUpwXhLXde+dWx6OzOZnRf3rtT5nd+BJqdTVUyZjOr+TCbsAWcP+tyxAEjIIdDTiz57F uwN8jusUcy/y5QHP27pVH3Mw1Pw3AA48xyQ2bD/QG1flEm7qH2gxM9H+fTQGq+GksiH79F5OiUpSRpuj YTsKVd9RW+U6Se82M/1L6Yy1OrYxwyzT9CQ78gbtfq 6Bs+SI6gIkevhTrSaA3YeXHsMzDPwToGBGfCx0/oFjHe6gaXjDLQTgrO5h58+ILrQlTFvVW5UEjtjI0u GQE77LbuGnoWkWN42hLZ2r/6lmtKVCTZ+IBAZLYm/xDogv+zcnOYMioORcLnQXG5ReUL9z4gNeKjrEV2 ujHRa+tmd teacher+F1AOk29iT1/WyFfEZPgr1uV5UJwnyOVL [file] xktrSNXwX/3gpmUk+MDcbZIXfH0eiNYItzoMJplOZL5O+bD2PXyRfMhG+gonzález+MClI++EipKaKQ2reNHf [file] MARKETING CLERK+Oie5NYAYDL9qFFxlgyUn0pKKdxj9BSxqKntWqk [file] flQCqPn23yg1ryaWnPO2sZ39WoXraDVyqTlsfczEfcXu2FZ+ji3qZnMh6wkexjk+Tile Classifier/fBuJPnq/2DyZ 9jlGEbYh376As7JODoVoSbZ9lGjeCXnCmcNjTHNnqXOW2kQxyVPGkHXaMNGQzaRJwhS+RSPT3fvritQX wO8HI3FdZJA5avPzh9+K/LGTJah+ERsY9z0v2BSDnH /BpulY38+KubB7XwtJOqMSfdWhPc9u6/qlQKyMHCVeqgmAu3cFJ80/iG0HZLozXMYY3i0/+u12NjGZ7X MJrAHPpwmMENZBAgzRWWfOhWNAl9dSP6aJc/zBy9J+zpQZBn+ML1kntTxKjIkEl/nLwsZQ2kRA88Y2hn AmKv03pULs4+i0zkZ9IbwJ+d+P+WpkGp/eS0YqF4Vg IQvLj7tagAhpKFYBBLKgzh4x2Bd33wsaO2EBGmk0kU8xnb5I8ypgZvb85h5pWKu3XOFiwin/NLLpJVGT pY5DbIbLjWWcAVMQePIFZP1uoAJ3M+yrZWDU4aIvHGUHB2JMrQ0tD5XtuBIA8QKB1KuQfm1KZuRlEurW ZlI6k9cFjWcr046byeKoc+aI1lcWydkJ+a5NLvloAS YZQwTQBtEHPDPSPzbCFlSBJf4h0RPt1iPe38vhXpZ2xIbedW1hzdSrbfEgT56RfRcqMhsHdEpJUwIRuL wpTYHuH4J9ouylGSkfB4k769NRc2NUr3WSFrZGmfNlXbIcSwZ3lLCR3RGTlfe/8bo7viBznwvVajiCmN tYKUqMZNSzHjoIC055lUjFLDiBtLNACWZgkBa2Dsu7 QCKWn6GZrTRCO/joJNw/9Fv0MncgEdsMpGWI4yJ/ErFYmiI9GC2TNcI+vLfKrjos/ejEfxWIOWM1ACpO Ricardo/VdZ0sk7RiHhDE63zbVb0YdUeCF0A4Q6BVFbIemdcHG3lZruur0k+NMsho6nIGt/wiV2makLfUol0 [file] zEQP6ZqJm8w2okjD/T0GMbY8gcYxvl9nYzl0hF/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 [file] GDrrhOZQ1SZj8697OLW7Gd6iN785It5e6z938me85M JpBVTRgJEB9xzN6+1zHRy9UMy743hmVmvFzcF/4FKBS27O/93y1fTPKEypt396r15G5cxWozmj3gQAtT 06hIBGABzELu35HAnq3u2WHzr2DuFfddUoB5FhC1bstXzjmQ5zF63auPYoV2S+EWDKrZF1dJ2tq/4eoJ 2qy/Mi6U7gBbvh2APmuFuxRJ10NU36EiDyDQTkN7RI UMumStk2XjRAnRqbvhqCDrqeU9KIBmSHppVab0dJwOSlsVYkT7N/QG5ekElGnPtTCrzU2deiXjziGECj X5jFRkiDo9DqZHlAB7ZL0URwhHCD0OFoGQ/jbCMn+nKC2QfxSwEJT4n2oxAQAfojQh62lxXW0bAoQvSb mAJgV/dxcKPExRSNn9043r7QVpxmQZxALWWcdVKPTf ZWAU8aKcNn2+zx0nIgfI/hiU78ub4Dx8u3T+lvROpBn2U75EMUb32yksoW8PbmXPXlOq2vwYXAMRDppA P3zoSRbTw1xL9eKS44ZtGGn6Nw/dLwOAgfs6T0dHV7ePMVhGXMdCb48zHDglnHegEzaFTyv4NAh2bmea PwG1SJAMrhQRQr3C5o1C2Z+5CIR9mMTqnqMlnmiPYd SYTK5ZJYDCO1QZWNZ6XGsveJD09XhmI/KIcPzD8MMXx0G+lIaB48XFMa283v6+Reji+jsefStP90nYvnqI fCZ3kgWxl1NIou2HyO9agBm/hKUqUCyY25tgMbluwhfB/SYBrR4fHXVEtodDQKbmLHPmPJ6kwNqaAaun h/rrStXSyMNU1BCK7z8v5BWj7cWw0oMcbPSAbnRE4L I4g00x2ChZBfhAHNyE9N636EK3KCeyoLQ/tfygn3vtSdh3S2CjlOK7rX/z/7n6XeIF9PCoP6wkTdeAv+ SLJymTczvGOwqX8WCmpKErt2ZIBlGmDwQ1aAogJ/Zy6xq3OoSBT+XcP2vzFva2x3mXdbKHdrSVeSZRSH 13ekSlSd3UvRotoCDwZA3cv1z/aIZL/SFnSFLTU/w9 yEMVmX1ThbEWO6iWPJks4+EpMU6L2Y2TxPw36Xnx0BlIZskWg+tJ9xH24f/Y4aaFLs6khijrjnyPNNTp 8z5QxeU5hj3Kde+l0c+MvJUq6YSFJLOXw2OhLC74ZcX/77zqX4K2kOW126ijZ9mn2L2HSsboGe50ixeH j1Vg2Na40rd4gB5xb6u0B7Ra1TEcWGd87AhAs64o2x qjWnqODxG2rj2LQsp3hx30uusqLg4JSSPzum1TshU4+U4Y1mSYqZXvv8mfZGx0dCzs3ShuD2fwRl1nMu SsvlhO/OzN6RYz9nL3MrieksdZd9b68APDNYv+wpm22e6IlfU220TKkC+cpB7Tzv4MazWWcbysUeUrXB V0WHovkQSdVG1+fc9Vc2Pmm8Zcx76puKNRKqMC598m UtqHJL5cdwV2LHJh9cMJVN4QWBixfsk1ToEG7oFAapvXSjtLlbUFfp4fsqsfUCFoljsqNZBhayx0Gh3v S4E+zy+aoZa//lmioN/call circuit worker+z87qq+UimsxEoU/6IxmHISGm4yZvH85OsHOrCrD8mcRBqCqfoCf1J/AcAJ A0Ueswr15DwAL4lnVr0EjDdx8DiF0w1IvAqgA7z/Sa 88MvuKfpjp6MD8sxF6q0Rec9bEDz/9XO9Hiaz8D1UMJG0FpTqYRA4g1ZpbRJ+Rd4OjBpul9JM+sRHGaz SulU4Fd4t+XcdGqzdMcA14lxgCjFzBAv4mwiO4xXSUNYzo2cUEvW6nPJ8dU2ILm7YjkadHhmrtk182z7 KG/ju3g9nSHy2X4Brd9AREmTLS8WOMDsRzMc6ShC0G PEbFqrJjpch22ZcXFq/ojHXNxcQCEGMKJaL2IhZw6drYalxmWw4Ndkt9YE1M0i46khrZO2f0dsFktsPu POpgSbnrkmwIpkxIQDb1D6XQMf9jyvf3bPsbsUZbyJehNKiufJYx17D1CsO4BSgkyViZwlntU52GM6Lv mnV65RecmfZ8mUSCoK+I9crnf8ktw9+r+u+9ifxzes OqQSLzRfYs3+RsOwvHiL1NY/mvYYtat8vdpJEwC6sKSeIfRc4w1INhav9Z2Ntqf+EUFYfYtzNkAYf6tw erDGaioI7i35BYB08akBpWhQzG7iWI6MrS+VX3WooDv3r2Q3IJp2gevOi85FT1AA+jrNU20/N1SwNK82 PB39SU86QcjfW64AbFa4VNlJOT74DAEQP4iseyXEY2 /G/SdZRmFaoiX2D0gGbqhvMqmPWwUB4DALxb3nBpwuDXy46M8EHzbAKabckZzFZ7ZTZ0XcOmdYdwTXF3 /hrztHgvEe2+4NaqTttVAzeT4AdJKXnI46+FUjgJurdw8Bb8A6CihhzN/alHK6d6ixX5wEew6IiDp+slovak [file] T8x/eIKyXpMmptwFbGxxVHL6ylzKZKxYQNgGk9a/HEMSTITCHER aHy+z5aSig6IbWojuQbE8cYrila5lbJBdh1x/EA5PCJ1T1UHzPx92zm1NAMomMj/rvGxMkfSvt+LovXs R22NxydmzzeMo6KXvOGtoiL3/yP2Tu/5sHMzpwFTht5vaAKsDF92z08RRBQ+K80FyrA7iznMAhtFDNJb MEd4Zq5gsLh96XuEb3DpNPPcoUN6S7qj3L5Te3NpZw q5csqv07qDfT95udrRNPY2/+q7s60rX63cRXrfQg1Q3VKhFFf8kf0vp1xlzqkoE9miXgNWnhE3qvHR1r 2f/mUrQApzl/aq94hN/hgJAkZLjc6+w61d6sMWzcLKfVodn1xR1NEmYF1XjTpR4njxF/jBOEoAAAGASP O/DiCqovC+CpHe4Pv7UiwoanhNTdDhxVLKxC1Pc+d/ DMbTZzFES+S75tI9Aapb1VGe8nt0Ss0EI9pYpnL8Nd360VC7QLx8/tXJ18VuXA6r1DtrhwCkVV5PXwFY DHQdbYt5HrfIpllzFwFVQh+lbYPiwZ/QuAuWE/WbXGZy4aTdlfL142QKG9Od9/BW36iJOqCfO7h3pUSc M7xQ7z9fKQ4Yr2wsLl3jWPLcP7lgEsRyWMMPHqlopR +González/ZKNOfnLhIrHseeQzPCpXF7onWPBvc0T5uF+sB848S5QEWwfZrSTV1K+/YM51ixOEnmClXITPgnz [file] tariq+AEVrDe/e5mJig6V7e35cEB7krqtRMRwxnH/RLNGiLXx32i8n6tiQ2is4tkqFUVzA1EKkFoBezzVv 2loLA1tKfezBXHbm6EFe6xems5Y9fzQ7dJI6uwv8fP M4d9S57H8La9qbHt7EnkM+ML262CrcKqb94r1nDlaQGGzsgwSLkCjdf1+RU1KQIlRJHxk724MIZVVsDS R/i+xjfGlAeUaZ4mEmMfBjhW0MFuLIHgGhH7iUfSKbE02ZVEUsFYRezi1Vhreeu7xf6c7yowfn8JiJmz BuuX/0gJIHu15EODojavPDYCLwh7NJqBXHbBh2V8Np jP92+5r9nq9KzUpQXcTxIfwZl4oV2J6iSJw4QpgnetRVqQvD39KaH7R8c4cWoGB0sqOHXAo9Y/PQJ9Ah [place]+V9lAZ+XE1QoOrl05cVixJ7nBAYytQmJBLkKDf9wiehvLxhwIjfOc0k1fvl1Ml2R7ObQgH+AF2PTg [file] 1B0/2p5mr1eIzlux5+EffjEdvGLgaOloUFY+wDSlfFhHw7mLsYlfjqJWsOlRY+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 history professor+RbpFQ3s+19Jb1gB [file] mMk+manager occupational+RxBfDuZTx4BWIeNxa57AviVTfsdSNdTiPt [file] vG/8s5QAtdWozyhP1XCzFYtnyAqtkwdBBrQ5lIhgYsBDpscM/2nC4O/5RWdhvs/YAspa5TJzfLSD+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 [file] wnXOhnrXpF2EELX8ptTAjyNI+MnnEOXmeZMJZwMs/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/mhyY9el47fnDRu77vU4pwKoIilOAr2ZwdiIs /271L3MjFof2klmREOtruitwx67nKsxEIs0uZ+4KtxSdvoHlOjqAA1Yyu1Qnp6QxZBQ46g8dDtaRkEfI BMA++YHZC9gTuioyQnt0GgxqZ/NNMzcTVNa9JpCcgA /FpHJRlsg5XxsZO6atOVJnkIlrQJ9n6Tlx/zuQH5fZHG1BBBeaUw2IehgtaFkRES4ix41orl8PTlibRK AJzJw0vWG+O5bPc8+nQRL7kEAsH55rjmWcsv/i44vKMz5cG25dYK4lKPt8s/IJev7RfqXaeM4rMyusA9 A1owzoiUSQfoF55lO7u4J/4e4hkxwSuck4nGfIfHL1 xpfK9WypG5EVEd9vrUF59rYVNxKaZoE3IXd5xWSk9UUzPIkj6GxMa960XxV7Tk7D8kOKDK516P355Noh kpDYxSRM234V+hC98OqpPAiYMT6AyAFqxOnWOA/Ue+uPTByBAYvDCAOAw7IJLYjp0Qke7m+aCGN6gy0b GliqwERZD6F7uICqPgoILvJ9wc0aY386BNxbNKJdjG p4sOzpp9SqutGmmV2W3OmWxRggy+EY6C0xchw++jQZmcoULZxt/x5GlrT3SZsXNfMkswceqZtQxfisvC rbg2t3udZ3ACb+y9OfusR6jfAe35Y2A0xFIcyV1+h5Alyf+Dqzue9ys5agREMAj1ehZJAWqeV/xT3wFZ zLiGGqW4BahKwbnmbI4HO3B6zyjPYGdi0G2a+ahj5D 1oJVvKUYsexdpr45AMho8qonzj3+E7E7A24C4rYusAHIUJmyB0LYrFoAfh0diabfykdFfulfLrYmLs2X Sca34IlPLNfXywrM9ufFCX3KSoiayAxD12dQPJ68JeU69mSK2A/E9iWxfWUeNVL5Wh2Zs4GT4bRX6Hd2 nT8pjXUON5eP+7aLipgzFvPi/+6SceqU1sGNfBirzs be0NY5Gviq3Gilcf2S8iX8omoVjRp+0EtXNZzXQViEAZCNs5YHOXw+z4Gqd0Tycvv/JANIA+ZPl2SvIFS2 [file] 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 Name Value Range Interpretation Code Description Data Laura rce(s) Supporting Document(s) SARS coronavirus 2 RNA [Presence] in Res piratory specimen by JUAN A with probe detection NEGATIVE [facility] This lab was ordered by [facility] a nd reported by [facility]. ID Date Data Source [id number] 10/09/2020 03:24:00 PM EDT [facility] Name Value Range Interpretation Code Description Data Laura rce(s) Supporting Document(s) CK-MB Value Mass 1.6 ng/mL Normal (applies to non-numeric results) [facility] ([facility]) CPK Creatine Phosphokinase 98 U/L 26-192 Lina l (applies to non-numeric results) [facility] ([facility]) Troponin I Laboratory test result Normal (applies to non-n umeric results) [facility] ([facility]) <content>Troponin I Reference Interval f or Siemens [place] LOCI:</content>
<content></content>
<content>99th Percentile= 0.00-0.045 ng/ml</content>
<content></content>
<content>Risk Stratification:</content>
<content><= 0.10 ng/ml Decreased Risk for Adverse Clinical</content>
<content>Events.</content>
<content>0.10-1.50 ng/ml Increased Risk for Adverse Clinical</content>
<content>Events. Evaluation of additional</content>
<content>criterion and/or repeat testing in 2-6</content>
<content>hours is suggested to rule out myocardial</content>
<content>damage.</content>
<content>>= 1.50 ng/ml Indicative of Myocardial Injury.</content>
<content></content> MB/CK Relative Index 1.63 Normal (applies to non-num evy results) [facility] ([facility]) <content>DIAGNOSIS CRITERIA</content>
<content>MMB ng/ml Relative Index (RI)</content>
<content>NON-AMI < or = 5 N/A</content>
<content>FLOWERS ZONE > 5 < or = 4</content>
<content>AMI > 5 > 4</content>
<content></content> ID Date Data Source [id number] 10/09/2020 03:24:00 PM EDT [facility] ([facility]) Name Value Range Interpretation Code Description Data Laura rce(s) Supporting Document(s) Amylase [Enzymatic activity/volume] in Serum or Plasma 41 U/L 25-115 Normal (applies to non-numeric results) [facility] ([facility]) Lipase [Enzymatic activity/volume] in Serum or Plasma 34 U/L 73-393 Below low normal [facility] ([facility]) ID Date Data Source [id number] 10/09/2020 03:24:00 PM EDT [facility] ([facility]) Name Value Range Interpretation Code Description Data Laura rce(s) Supporting Document(s) Blood Urea Nitrogen 14 mg/dL 7-18 Normal (applies to non-nume nemo results) [facility] ([facility]) Glucose, Fasting 151 mg/dL 70-100 Above high normal [facility] ([facility]) Glomerular Filtration Rate Laboratory test result Normal (applies to non- numeric results) [facility] ([facility]) <content>Units are mL/min/1.73 m2</content>
<content></content>
<content>Chronic Kidney Disease Staging per NKF:</content>
<content></content>
<content>Stage I & II GFR >=60 Normal to Mildly Decreased</content>
<content>Stage III GFR 30-59 Moderately Decreased</content>
<content>Stage IV GFR 15-29 Severely Decreased</content>
<content>Stage V GFR <15 Very Little GFR Left</content>
<content>ESRD GFR <15 on APPLIANCE FIXER</content>
<content></content> Creatinine For GFR 0.66 mg/dL 0.55-1.30 Normal (applies to non -numeric results) [facility] ([facility]) Chloride Level 101 meq/L 98-107 Normal (applies to non-numeric r esults) [facility] ([facility]) Potassium Serum 2.9 meq/L 3.5-5.1 Below lower panic limits [facility] ([facility]) Sodium Level 138 meq/L 136-145 Normal (applies to non-numeric res ults) [facility] ([facility]) Anion Gap 3 meq/L 8-16 Below low normal [facility] Carbon Dioxide Level 34 meq/L 21-32 Above high normal [facility] ([facility]) Calcium Level 8.6 mg/dL 8.8-10.2 Below low normal [facility] ([facility]) ID Date Data Source [id number] 10/09/2020 03:24:00 PM EDT [facility] ([facility]) Name Value Range Interpretation Code Description Data Laura rce(s) Supporting Document(s) Ast/Sgot 247 U/L 7-37 Above high normal [facility] ([facility]) Alkaline Phosphatase 201 U/L 45-117 Above high normal [facility] ([facility]) Bilirubin,Total 1.5 mg/dL 0.2-1.0 Above high normal [facility] ([facility]) Alt/SGPT 88 U/L 12-78 Above high normal [facility] ([facility]) Bilirubin,Direct 1.0 mg/dL 0.0-0.2 Above high normal [facility] ([facility]) Total Protein 7.8 GM/DL 6.4-8.2 Normal (applies to non-numeric re sults) [facility] ([facility]) Albumin 3.3 GM/DL 3.2-5.2 Normal (applies to non-numeric resul ts) [facility] ([facility]) Albumin/Globulin Ratio 0.7 1.2-2.2 Below low normal [facility] ([facility]) ID Date Data Source [id number] 10/09/2020 03:15:00 PM EDT [facility] ([facility]) Name Value Range Interpretation Code Description Data Laura rce(s) Supporting Document(s) Color, Urine RFX Laboratory test result Normal ( applies to non-numeric results) [facility] ([facility]) Appearance, Urine RFX Laboratory test result Nor mal (applies to non-numeric results) [facility] ([facility]) PH,Urine RFX 7.0 units 5.0-9.0 Normal (applies to non-numeric res ults) [facility]) Specific [place] Ur Auto RFX 1.009 1.002-1.035 Nor mal (applies to non-numeric results) [facility] ([facility]) Glucose, Urine (Ua) Auto RFX Laboratory test result Above high normal [facility]) Protein, Urine Auto RFX Laboratory test result Above high normal [facility] ([facility]) Ketone, Urine Auto RFX Laboratory test result Above high n ormal [facility] ([facility]) Urobilinogen, Urine Auto RFX 2.0 mg/dL 0.0-2.0 Above high normal [facility] ([facility]) Nitrite, Urine Auto RFX Laboratory test result N ormal (applies to non-numeric results) [facility] ([facility]) Leukocyte Esterase Ur Auto RFX Laboratory test result Normal (applies to non- numeric results) [facility] ([facility]) Bilirubin, Urine Auto RFX Laboratory test result Normal (applies to non- numeric results) [facility] ([facility]) Blood, Urine Blood RFX Laboratory test result Above high n ormal [facility] ([facility]) RBC, Urine Auto RFX 2 /HPF 0-3 Normal (applies to non-nume nemo results) [facility] ([facility]) WBC, Urine Auto RFX 0 /HPF 0-3 Normal (applies to non-nume nemo results) [facility] ([facility]) Squam Epithelial Cell Ur Aurfx 0 /HPF 0-6 N ormal (applies to non-numeric results) [facility] ([facility]) Mucus, Urine RFX Laboratory test result Normal ( applies to non-numeric results) [facility] ([facility]) Bacteria, Urine Auto RFX Laboratory test result Above high normal [facility] ([facility]) Hyaline Cast, Urine Auto RFX 0 /LPF 0-1 Normal (appl ies to non-numeric results) [facility] ([facility]) Amorphous Sediment RFX Laboratory test result Above high n ormal [facility] ([facility]) ID Date Data Source [id number] 10/09/2020 03:15:00 PM EDT [facility] ([facility]) Name Value Range Interpretation Code Description Data Laura rce(s) Supporting Document(s) White Blood Count 6.1 10 4.0-10.0 Normal (applies to non-numeri c results) [facility] ([facility]) Red Blood Count 3.95 10 4.00-5.40 Below low normal [facility] ([facility]) Hematocrit 35.7 % 36.0-47.0 Below low normal [facility] ( [facility]) Hemoglobin 11.1 g/dL 12.0-15.5 Below low normal [facility] ( [facility]) Mean Corpuscular Hemoglobin 28.1 pg 27.0-33.0 Norm al (applies to non-numeric results) [facility] ([facility]) Mean Corpuscular Volume 90.4 fl 80.0-96.0 Normal ( applies to non-numeric results) [facility] ([facility]) Mean Corpuscular HGB Conc 31.1 g/dL 32.0-36.5 Below low normal [facility] ([facility]) Red Cell Distribution Width 14.0 % 11.5-14.5 Norm al (applies to non-numeric results) [facility] ([facility]) Platelet Count, Automated 259 10 150-450 Normal (applies to non-numeric results) [facility] ([facility]) Lymph % 13.3 % 24.0-44.0 Below low normal [facility] ( [facility]) [place] % 5.4 % 2.0-8.0 Normal (applies to non-numeric resul ts) [facility] ([facility]) Neutrophils % 78.3 % 36.0-66.0 Above high normal [facility] ([facility]) Immature Granulocyte % 0.3 % 0-3.0 Normal (applies to non-n umeric results) [facility] ([facility]) Eos % 2.0 % 0.0-3.0 Normal (applies to non-numeric resul ts) [facility] ([facility]) Baso % 0.7 % 0.0-1.0 Normal (applies to non-numeric resul ts) [facility] ([facility]) Nucleated Red Blood Cell % 0.0 % 0-0 Normal (applies to n on-numeric results) [facility] ([facility]) Neutrophils # 4.8 10 1.5-8.5 Normal (applies to non-numeric re sults) [facility] ([facility]) Lymph # 0.8 10 1.5-5.0 Below low normal [facility] ( [facility]) [place] # 0.3 10 0.0-0.8 Normal (applies to non-numeric resul ts) [facility] ([facility]) Eos # 0.1 10 0.0-0.5 Normal (applies to non-numeric resul ts) [facility] ([facility]) Baso # 0.0 10 0.0-0.2 Normal (applies to non-numeric resul ts) [facility] ([facility]) ID Date Data Source [id number] 09/09/2020 08:30:00 AM EDT [facility] Name Value Range Interpretation Code Description Data Laura rce(s) Supporting Document(s) EGD [facility] ANUVRu9aMiZVZdJmOHCeOsrODTsnNXioGQTkP6J2QQkmEr2RMGmyjpSgWLUzTg1+RSIpMU6iwo7eLVDj gMy [file] +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/RKVXZVK+kVNS5R8wxozndBkrVBdxMjqcC8Ms3j9dNzlTPRdPNxJ4WP53jvhipB4mboZSn9Hq1O4J [file] Jose Raul+zcG3H29gwxZ0EmNBhTa6y4gCHQh9lXNUAw2gah [file] state federal relations deputy director/qN0b/yfIHMOvOAGbvgvo9b54nIvvgmD2vNtWhzWH/rB13+FWsKN6LSQlq8KJObNCXkTDvCR5Gm8w [file] church history professor+0IJzHiG/nT5H23e+YN8i2lhvufARGSXnRn9NlcT [file] +iIRAo3BT5w6po7KgEnqn3zohhdjwJhRA1qEBQla9StoRZrBvvLLjSwS1WvoUVEzY29K6+call circuit worker+7o/+MDt oL1UFGkhD+GZTbdV8MD/VGLghiXSjClPyaM1Dy3exnyWWRlK3Icv78ALIWirzslL5x+Mj6F2Q9AwbWJY O7ZuTLa9aFFkgT2PMgONxwadeWPyFToPmM6NmOLqov +4oI9oSnmP9p7qB6PMN5m+AS3fq0g4d0XfTFCMazC/NZxSfcjhjUqlu87VmLiuCOmTqPawvq1pcqsU3m 3ebVmAFlt2nNHtqKpzLSpcH5Ny8tiULLqMwSpQ5OTnf7rTj2NvWthnSagXX7/kyT//ndjl1XUI7U9WyG AwvyogyVImK11BKWxX0oTQ1kelMKzYPZroPTKl+/j7 xt9MOFZ7vyEUxes6s0p2n78Ij2n0hnpiZcdshEYFcxtH7AZoc7QaIDCJS3P5QrBg/UIxy3bdEgvkiBUh qFkx936jSeQrlyFzTlrVjaKNbeagOJRXeb8RA9IdOl19cgl4J9Gj4W+MoB+vWzUttUPai++y2eXtj15W g8k150GbHABeuGH6b6hFgqFQN8FZE6o2Lp+efCTNAe x/BqHe9jp7YEaITk4Om2ZX6eD7Os9SKlA+88yEXyVLWMbPPU4jj1rFqBI6HoJVo7O5kU56msVl+B9P0f NqkVmucZMGtLCgqW3Dz40UznBJX14PcRkA0qC7+pjsjzfYKe4vJTTo2MZim1SelJwCsZC3EYwKfPE4fW BtOmGkDemMSw13BpM70yqSknjwp+fhOqwcA/T8e52T v1qzrqgO3pSSeJnBumxOnwBKpMdhtUNf7BsclggE1MFo0rwNt/Jt4z4C5NsxnAtqUnezQUxqYtetx8O/ xU6G2aBgJTaES3rCm899pfmJBE0YJzlNOGgVm9brbVQ8rIK6otlOZDVoC39JeL/1TG3r8ppcYp4QZA7s OKXNV2dCPXeuPqqANH8l/KhKAJSwbiJ9vKe0E4+Wilmer [file] 9KMDLw4E5mwZubeTbciqpukEyMyBtovcdUhmonhxBz e64bs4j5G/oMweL/e/0CqXL1+BKAex4006bgaNTiBhNppDpWIbDg9YeJaJw0NnmBteXf2S1m1oZuH1QR X5W55sOYjxu3V72umvrmSwHdS7rMbb2J50HWXhYjJjEaXkDF0EGvptc/K163H2TEXRsj2FQUDVH5jJJq rXP6xGwS5d+mr1bjudCUsskl205NDhQ7o1YrUZInV/ AaH4E3UC85t9BWBdof+76xaYDaYOEHezqrWnLvMJMkyFtPuL+NwS4t1tVaePkW43zUZnzsct/h/a5ywy GH2nN4MZ+J6P+cnIkOjXg9V57CEHgjPGYcWgHs6O294kWZ93xVQuo9UDt3Bl5RDzSA9DnBuIcnLbj8ze zmuq7ahZ0RdfwVAccMB9tv7zTyWfOE8hnO2/NvpQOB PuEuM59jrziduoG+ZzZLF7HXyU+RiICLF98wffMt2EMZsvdD8p1UU1sx2cQzBBm/d4fC78aPf2uNQb9I 3/cqelbmpL7mZahtM7o9U/vXw5EUmpg1WnoMqX25y42jZLUKVTxqip4XQW3mvtsDw4D9nFimsGZ+fxYf TXZRIZrhjy7VfFTqBf+KkMJKsTMcAmmpKprZ34/PHOTOFINISHING LABORATORY WORKER [file] Glass Installer/hF3+9tWLo0yG/1BNZ1L6Q2LfDXjcBsgCqZSB1s6vZ [file] R1jyTeAeKrcQ2BYWnniVK2Op8EkAaGHb1yTY5vrkU9/Олег/cjsE2I0HRpuVNBw+gy7ueqwo3R0O5WEi [file] T0Y= ID Date Data Source [id number] 09/04/2020 08:00:00 AM EDT [facility] Name Value Range Interpretation Code Description Data Laura rce(s) Supporting Document(s) SARS coronavirus 2 RNA [Presence] in Res piratory specimen by JUAN A with probe detection NOT DETECTED [facility] This lab was reported by [facility] [place] [facility]. ID Date Data Source [id number] 08/11/2020 08:30:00 AM EDT [facility] Name Value Range Interpretation Code Description Data Laura rce(s) Supporting Document(s) Follow Up [facility] SUWJIn1kExQLCmJyXCWfDocEJJopLSwgKYSsS6C9VTcgMx6GMZfkiuEeJEAlVf3+NRYfWN1rlb7jPTXy gMy [file] church history professor/ZEHEnwYN0RpxDMxanFCgZ8u7iQ/tQmPPF3tTJ7V2e7GnCnsar4ymXXL5DqwoDUugFvlki+sJGFdtX [file] GEZy1Yfaeev+SVYo+Leaded Glass Installer/kM+Zl8B6dARP2nBWnYnR2fzxdGU4LLGqMA/cF0oIgRFYhPyONTgnpexRLGvU [file] call circuit worker/bia5oo1jygth8ajJXvpyUIJpVHFvj5vEE3UcalT 4Qjpqryq+yKiFeH25t8sYWxp86D05KXcA0DvzSQWXCauCX5nX/Cys/lfMSYgGNXypye4APXzkb2ljOMP ptyGSmNoOLSDELXwjAgyvQW5UbYZt219GAV02/7Mjr/rsz1gBuPTq9TWPDHatouM0AAOdK8zIx3XtPnJ nNDiOvnnOM+q3kgGCnthEoTU6JYDdP+q8vKV1q+fb7 iK1nGgRE9n8i8DAsN6BwuVs8YUGl8XsFCDOkbP5+4hmpdDQ2OtW9dPVz4w+xQcFUFEqeQv7D+qQCE00X UTgB9hPZPtDnExwnnghTQ6n6TjxY/AEmYS0/uhH9GF2DwqqYRUF05lPR8VooHY8SzeW6XICg7w70OmwS epTkzvE31Ts0rv6Qi7i2MQU0OwL9VmluvpXuWTKvIK qAhenm8ISniA/G6igEAuAtvOxGwxlfYi9QliTC6gNbkfjr2kfX1pE4FpO6J96eDdR3JsQJ/TmaNCfNR/ 3QfMocBpt4B6CZK0uvJU5t7PWI+cYZB7YVLtHSXwuD4/fW2DEofTS2VhNK1uZOH50sAQpBb1NgvCOS2o VqdToHF0rm5/LI8CeSJN15iy8897v87rTUEXjiejz/ nn+I8X+4c+u8qVeNrMl2f74wjbmq2GHVLD7wU+oQtS43Lu2iSB6UMdNsJJ6DkBGZAczERuGmzRm4vZ2M 2OhmRDs2hLS6xXIr0cLWfXBvAYVzoDS3Fr4JK1O8n2I+VXjakmT+5/0cmjAdRHyBPiGroC1iWqJP1uv7 J8ZOKIZ/CbhqXMOvDGq+tFnO9t2pYIcSuKDdeV4zyG OifP56snLcVhY2zeLxw/iAevT1gd0PjiHUeVeSTo6DUJImym2hZjGbNFTk+QkjDOpJ2NGMD6ug9xp7su irNkWABIaDZOLfmk0M7ZqOvmk3i6exq4xDgAs6zEaNePI8rlhS9iw8TSt+6a5FiJvi99/Liliana+a72z1L0 [file] pFdfJFxjOggyf7Bi3h8O+Testing And Regulating Chief+XjrTxa9ktRKvMMYmq [file] corporate vp advertising & online/iy+z0tntrOr11e4309dP0qBv0E9kondiVDOx0PI [file] 00s/Bwjb1urnCZZusF8Qw8/d1hVbD0L/TIitaM/Juan Carlos [file] [facility]+E/8H+9G+Rtd4x2Ymf+uMw10m358C5yfe [file] cKn3TiTk66z0FaCL43I9mMiCeHxPeBuczTbJFxDoNMcRH+51/buwqM/mBwC5QqMXho540GrL2HD4J+call circuit worker [file] 5KpwZF+vtaojmPqphRE7r/6GbqzIv/+ween3mczj/DHfF0EOYR5snulNi/cJl/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+xk08Q+vBHPop4vU NLBKz7A8jRvLLYgTZBGOK1rQSlCgnR1Jr6n1s/1VSw EeZS7hgp0ZZo9NyPWjGWXc8ZT1waGpA+fPKlSQ3dVSg0fK1Vb/aS1dNlmLu3fjfoxw7yC+K9zbj10ANA bI3ASzsoEPIxuijVYgwKkzHWszk0PG+mr+1SPN3jra/7HB8gKsdJUWdeTS0RixT/npONvmuYjF7p+cHX Xcs7EZcr4+dNd7qEal84nK6hpN8WxbELqKSPUL24Ak rx1yrvqazPm4yu0vzdlHmh+YAWP2Nq9H8A9gP1hDc81U8dqNEe0z/cEYPaXMTSY6AuP49q4v+Ddm8PVh T3jYXxdASOWoEoVioxNEjmFEswfTnW+tfA/8CQvLcXw4gSiVeMocIj2T5J1le0n6RB7EXxbNt2JO8ctl QZFGzD0VyufVyjujIaP+izORr7mrx4r6XnEQ5o3p5J xl1tFDLaQkP8F2fCRIi+5n3spHkjEa6T7pHMqmRdnCEqM7kZnicCsTIa2X7Ib76HLjiACH/3mTBrDok1 awzuxo7uko4RetERZUwPv7gj2NujWhQgO4Tbi4sJcR5dgrSdfqUe5lkQOhvUB3B7M+rmyKS97rsSiQ3F ecxfQZlEQUtQhTEOCIujJeuR9cPr/a2ia1igBg0+8o 0OlpUxGNHvqo9W3/ifYCm9VH/y5b+cpkktnV2bD8ZqbfkElhWWaP71SMO5n/Lu2w5x2VthoguGebIYXi iMZvuglxs3QkojT2wcOWQQxMwvhlY9FD4z76IpgcR1htQya7mEVKSvwmtla0ixyzNFGYxEaOPXWxgQow nhhjWwjpttipbuE8MYlhgaUWyGJ3JhzHGOfXtmWQlx uAuPhKLNJiwOoL7qB8/Avani/+Vf95bDahOBONLGEVSa8V/XV6AYeUREPpI/VrR7LuwnrLyIumJf1+5V4R [file] pYSorHqdNWiD0WFMo9LY9VPM+hJqFDIKGG/corporate vp advertising & online/3nN3 [file] corporate vp advertising & online+NAQGJjQ1UN3GKp79SXzm3q6+p8xyQAYClAoIZXK2+kULbwHChvb7zzELN1bU3Dh9w84XPCAu+HMR9 [file] church history professor+Z0N79iLArTa5et4nYbmQuecgVa6uoAjR4LZETTuuN2cru0y7jrRkS8uqG09m587DMrQSZYVwaTwWE [file] [facility]yLQepxQ38yghJj4490ntJ4vCU0Sk/Go0cBWIsRZ+3AVdhyqE5f0znDrEaIvRx22KhD [file] rGRzjDTGvY9Q1cncko/HgvT4MT5u/bGER90+Mi [file] Juan Carlos/M+vcJYeq/Xqte0i/UkO+4P4RO45adC4UD5Hb05/EJRyOW2MTkkAbSXqagCHTdoim60fLxSO2bT8K [file] a8+QjOr9/lGpcoYdSLnlo2jmlr5SXohg8jNcQ7 [file] Eq3aCPRROVK9MWF6XwI1GVY1UFGJPReLCLCNZjUkER X3YKpyBv6cEo1buTUfIHEvKp1EtgYsIFItFQHGG6SdybRaPjWlOJesZOAaITWiOn7NJYcgZELhFZ5+Pn K2gkJzhN1FmUuhRSEtWNAaRNVeJRHWNV3NiMaIIYPBIEWktoLRddbFLHMNxLVB5fyRTXOwVEkjZsRbRZ VsTvqAVPHFITuLAR1VivTiEAX+T2z2xpHLdmHWOz0Z HG6zh6CqSJBeKWixtiSgXoeDECyvgNLmgZjxNEFINmA2GRycEiVMRmPlVD9F ID Date Data Source [id number] 04/28/2020 12:00:[address] [facility] Name Value Range Interpretation Code Description Data Laura rce(s) Supporting Document(s) SARS-CoV-2 (COVID-19) RNA [Presence] in Respiratory specimen by JUAN A with probe detection [facility] This lab was ordered by [facility] and reported by [employer] ID Date Data Source [id number] 04/07/2020 12:00:00 AM EST [facility] olog[facility] Imaging Gladis Ventura DO Patient Name: JANET [id number] Date of : 1940 1 Date of Exam:04/07/2020[place] [id number]#: Fax: [phone] EXAM: MAMMO SCREENING WITH CADCLINICAL INFORMATION: Screening.Comparison is 03/06/2019 as well as other prior exams.Family of paternal grandmother with breast cancer at age 55.Based on the personal and family history information your patient suppliedat the time of imaging, her lifetime risk of breast cancer estimated by theTyrer-Cuzick model is 0.9%. Given that this patient has less than 20% TCrisk score, no further medical management is currently recommended at thistime.Digital screening (2D) mammography was performed bilaterally.Additionally, breast tomosynthesis (3D mammography) was performedbilaterally in the CC and MLO projections and compared to the priorexam(s).There has been no change in appearance of the mammogram from studies.There is a mild amount of residual fibroglandular tissue remaining, whichis fairly symmetric. There has been no interval development of dominantmasses, areas of structural distortion, or clusters of microcalcificationstypical of malignancy. Large coarse calcifications are present, of noclinical significance.The Volpara volumetric breast density category is D, the breasts areextremely dense which lowers the sensitivity of mammography.IMPRESSION:BI-RADS Category 1 - Negative Mammogram. Currently no mammographicevidence of malignancy. Routine followup is recommended in one year.This mammogram was read with the assistance of [employer], an FDAapproved computer aided detection system for mammography.Negative x-ray reports should not delay surgical consultation if a dominantor clinically suspicious mass is present.Not all breast cancers can be identified by mammography. Therefore, werecommend that you continue to perform regular breast self-examination andphysical examination and then promptly contact your physician of anyconcerns or changes.Adenosis and dense breasts may obscure an underlying neoplasm.The patient states that a clinical breast examination was over a year ago.BONNIE Tavares/Boyd you for referring SUE URENA to our office.Electronically Signed - KARMEN FLOWERS MD 04/07/20 16:50 Name Value Range Interpretation Code Description Data Laura connellye(s) Supporting Document(s) ID Date Data Source [id number] 03/23/2020 07:33:00 PM EST [facility] ([facility]) Name Value Range Interpretation Code Description Data Laura rce(s) Supporting Document(s) White Blood Count 4.2 10 4.0-10.0 Normal (applies to non-numeri c results) [facility] ([facility]) Hemoglobin 11.0 g/dL 12.0-15.5 Below low normal [facility] ( [facility]) Red Blood Count 3.64 10 4.00-5.40 Below low normal [facility] ([facility]) Hematocrit 34.6 % 36.0-47.0 Below low normal [facility] ( [facility]) Mean Corpuscular Volume 95.1 fl 80.0-96.0 Normal ( applies to non-numeric results) [facility] ([facility]) Mean Corpuscular HGB Conc 31.8 g/dL 32.0-36.5 Below low normal [facility] ([facility]) Mean Corpuscular Hemoglobin 30.2 pg 27.0-33.0 Norm al (applies to non-numeric results) [facility] ([facility]) Platelet Count, Automated 202 10 150-450 Normal (applies to non-numeric results) [facility] ([facility]) Red Cell Distribution Width 13.3 % 11.5-14.5 Norm al (applies to non-numeric results) [facility] ([facility]) Neutrophils % 52.9 % 36.0-66.0 Normal (applies to non-numeric re sults) [facility] ([facility]) Lymph % 29.6 % 24.0-44.0 Normal (applies to non-numeric resul ts) [facility] ([facility]) [place] % 7.7 % 0.0-5.0 Above high normal [facility] ([facility]) Eos % 8.4 % 0.0-3.0 Above high normal [facility] ([facility]) Baso % 1.2 % 0.0-1.0 Above high normal [facility] ([facility]) Immature Granulocyte % 0.2 % 0-3.0 Normal (applies to non-n umeric results) [facility] ([facility]) Nucleated Red Blood Cell % 0.0 % 0-0 Normal (applies to n on-numeric results) [facility] ([facility]) Lymph # 1.2 10 1.5-5.0 Below low normal [facility] ( [facility]) Neutrophils # 2.2 10 1.5-8.5 Normal (applies to non-numeric re sults) [facility] ([facility]) [place] # 0.3 10 0.0-0.8 Normal (applies to non-numeric resul ts) [facility] ([facility]) Baso # 0.1 10 0.0-0.2 Normal (applies to non-numeric resul ts) [facility] ([facility]) Eos # 0.4 10 0.0-0.5 Normal (applies to non-numeric resul ts) [facility] ([facility]) ID Date Data Source [id number] 03/23/2020 07:33:00 PM EST [facility] ([facility]) Name Value Range Interpretation Code Description Data Laura rce(s) Supporting Document(s) Prothrombin Time 20.7 s 12.5-14.3 Above high normal [facility] ([facility]) Inr 1.74 Normal (applies to non-numeric resul ts) [facility] ([facility]) THERAPUTIC HUMAN INR VALUES INDICATIONS NORMAL RANGES PROPHYLAXIS/TREATMENT OF: VENOUS THROMBOSIS 2.0-3.0 PULMONARY EMBOLISM 2.0-3.0 PREVENTION OF SYSTEMIC EMBOLISM FROM: TISSUE HEART VALVES 2.0-3.0 ACUTE MYOCARDIAL INFARCTION 2.0-3.0 VALVULAR HEART DISEASE 2.0-3.0 ATRIAL FIBRILLATION 2.0-3.0 MECHANICAL VALVES(HIGH RISK) 2.5-3.5 RECURRENT MYOCARDIAL INFARCTION 2.5-3.5 ID Date Data Source [id number] 03/23/2020 07:33:00 PM EST [facility] ([facility]) Name Value Range Interpretation Code Description Data Laura rce(s) Supporting Document(s) aPTT in Platelet poor plasma by Coagulation assay 43.3 s 24.2-38.5 Above high normal [facility] ([facility]) ID Date Data Source [id number] 03/23/2020 07:33:00 PM EST [facility] ([facility]) Name Value Range Interpretation Code Description Data Laura rce(s) Supporting Document(s) CPK Creatine Phosphokinase 85 U/L 26-192 Lina l (applies to non-numeric results) [facility] ([facility]) CK-MB Value Mass 2.5 ng/mL Normal (applies to non-numeric results) [facility] MB/CK Relative Index 2.94 Normal (applies to non-num evy results) [facility]) <content>DIAGNOSIS CRITERIA</content>
<content>MMB ng/ml Relative Index (RI)</content>
<content>NON-AMI < or = 5 N/A</content>
<content>FLOWERS ZONE > 5 < or = 4</content>
<content>AMI > 5 > 4</content>
<content></content> Troponin I Laboratory test result Normal (applies to non-n umeric results) [facility] ([facility]) <content>Troponin I Reference Interval f or Siemens [place] LOCI:</content>
<content></content>
<content>99th Percentile= 0.00-0.045 ng/ml</content>
<content></content>
<content>Risk Stratification:</content>
<content><= 0.10 ng/ml Decreased Risk for Adverse Clinical</content>
<content>Events.</content>
<content>0.10-1.50 ng/ml Increased Risk for Adverse Clinical</content>
<content>Events. Evaluation of additional</content>
<content>criterion and/or repeat testing in 2-6</content>
<content>hours is suggested to rule out myocardial</content>
<content>damage.</content>
<content>>= 1.50 ng/ml Indicative of Myocardial Injury.</content>
<content></content> ID Date Data Source [id number] 03/23/2020 07:33:00 PM EST [facility] ([facility]) Name Value Range Interpretation Code Description Data Laura rce(s) Supporting Document(s) Ast/Sgot 24 U/L 7-37 Normal (applies to non-numeric resul ts) [facility] ([facility]) Alt/SGPT 23 U/L 12-78 Normal (applies to non-numeric resul ts) [facility] ([facility]) Alkaline Phosphatase 98 U/L 45-117 Normal (applies to non-num evy results) [facility] ([facility]) Bilirubin,Total 0.2 mg/dL 0.2-1.0 Normal (applies to non-numeric results) [facility] ([facility]) Bilirubin,Direct Laboratory test result 0.0-0.2 Normal ( applies to non-numeric results) [facility] Albumin 3.3 GM/DL 3.2-5.2 Normal (applies to non-numeric resul ts) [facility] ([facility]) Total Protein 6.7 GM/DL 6.4-8.2 Normal (applies to non-numeric re sults) [facility]) Albumin/Globulin Ratio 1.0 1.2-2.2 Below low normal [facility] ([facility]) ID Date Data Source [id number] 03/23/2020 07:33:00 PM EST [facility] ([facility]) Name Value Range Interpretation Code Description Data Laura rce(s) Supporting Document(s) Glucose, Fasting 121 mg/dL 70-100 Above high normal [facility] ([facility]) Blood Urea Nitrogen 14 mg/dL 7-18 Normal (applies to non-nume nemo results) [facility] ([facility]) Creatinine For GFR 0.71 mg/dL 0.55-1.30 Normal (applies to non -numeric results) [facility] ([facility]) Glomerular Filtration Rate Laboratory test result Normal (applies to non- numeric results) [facility] ([facility]) <content>Units are mL/min/1.73 m2</content>
<content></content>
<content>Chronic Kidney Disease Staging per NKF:</content>
<content></content>
<content>Stage I & II GFR >=60 Normal to Mildly Decreased</content>
<content>Stage III GFR 30- 59 Moderately Decreased</content>
<content>Stage IV GFR 15-29 Severely Decreased</content>
<content>Stage V GFR <15 Very Little GFR Left</content>
<content>ESRD GFR <15 on APPLIANCE FIXER</content>
<content></content> Potassium Serum 4.0 meq/L 3.5-5.1 Normal (applies to non-numeric results) [facility] ([facility]) Sodium Level 142 meq/L 136-145 Normal (applies to non-numeric res ults) [facility] ([facility]) Carbon Dioxide Level 25 meq/L 21-32 Normal (applies to non-num evy results) [facility] ([facility]) Chloride Level 110 meq/L 98-107 Above high normal [facility] ([facility]) Anion Gap 7 meq/L 8-16 Below low normal [facility] Calcium Level 8.8 mg/dL 8.8-10.2 Normal (applies to non-numeric re sults) [facility]) ID Date Data Source [id number] 03/23/2020 07:33:00 PM EST [facility] ([facility]) Name Value Range Interpretation Code Description Data Laura rce(s) Supporting Document(s) Thyrotropin [Units/volume] in Serum or Plasma 5.210 uIU/ML 0. 358-3.740 Above high normal [facility] ([facility]) Thyroxine (T4) free [Mass/volume] in Serum or Plasma 1.08 ng/dL 0.76-1.46 Normal (applies to non-numeric results) [facility] ([facility]) ID Date Data Source [id number] 03/19/2020 06:30:00 PM EST [facility] ([facility]) Name Value Range Interpretation Code Description Data Laura rce(s) Supporting Document(s) Laboratory test finding (navigational concept) Laboratory test r esult Normal (applies to non-numeric results) [facility] ([facility]) A false negative result may occur if a s pecimen is improperly collected, transported or handled. False negative results may also occur if inadequate numbers of organisms are present in the specimen. As with any molecular test, mutations within the target regions of Xpert Xpress SARS-CoV-2 could affect primer and/or probe binding resulting in failure to detect the presence of virus. This test cannot rule out diseases caused by other bacterial or viral pathogens. DISCLAIMER: Testing was performed using the [employer] SARS-CoV-2 test. This test was developed and its performance characteristics determined by [employer]. This test has not been FDA cleared or approved. This test has been authorized by FDA under an Emergency Use Authorization (EUA). This test is only authorized for the duration of time the declaration that circumstances exist justifying the authorization of the emergency use of in vitro diagnostic tests for detection of SARS-CoV-2 virus and/or diagnosis of COVID-19 infection under section 564(b)(1) of the Act, 21 U.S.C. 360bbb-3(b)(1), unless the authorization is terminated or revoked sooner. ID Date Data Source [id number] 03/19/2020 06:30:00 PM EST [facility] Name Value Range Interpretation Code Description Data Laura rce(s) Supporting Document(s) Coronavirus 2019 Nasopharygeal Laboratory test result [facility] ([facility]) Laboratory test finding (navigational concept) Laboratory test r esult Normal (applies to non-numeric results) [facility] ([facility]) A false negative result may occur if a s pecimen is improperly collected, transported or handled. False negative results may also occur if inadequate numbers of organisms are present in the specimen. As with any molecular test, mutations within the target regions of Xpert Xpress SARS-CoV-2 could affect primer and/or probe binding resulting in failure to detect the presence of virus. This test cannot rule out diseases caused by other bacterial or viral pathogens. DISCLAIMER: Testing was performed using the [employer] SARS-CoV-2 test. This test was developed and its performance characteristics determined by [employer]. This test has not been FDA cleared or approved. This test has been authorized by FDA under an Emergency Use Authorization (EUA). This test is only authorized for the duration of time the declaration that circumstances exist justifying the authorization of the emergency use of in vitro diagnostic tests for detection of SARS-CoV-2 virus and/or diagnosis of COVID-19 infection under section 564(b)(1) of the Act, 21 U.S.C. 360bbb-3(b)(1), unless the authorization is terminated or revoked sooner. ID Date Data Source [id number] 03/19/2020 04:54:00 PM EST [facility] ([facility]) Name Value Range Interpretation Code Description Data Laura rce(s) Supporting Document(s) Ast/Sgot 19 U/L 7-37 Normal (applies to non-numeric resul ts) [facility] ([facility]) Alt/SGPT 21 U/L 12-78 Normal (applies to non-numeric resul ts) [facility]) Alkaline Phosphatase 98 U/L 45-117 Normal (applies to non-num evy results) [facility] ([facility]) Bilirubin,Total 0.3 mg/dL 0.2-1.0 Normal (applies to non-numeric results) [facility] ([facility]) Total Protein 6.6 GM/DL 6.4-8.2 Normal (applies to non-numeric re sults) [facility] ([facility]) Bilirubin,Direct 0.1 mg/dL 0.0-0.2 Normal (applies to non-numeric results) [facility] ([facility]) Albumin 3.3 GM/DL 3.2-5.2 Normal (applies to non-numeric resul ts) [facility]) Albumin/Globulin Ratio 1.0 1.2-2.2 Below low normal [facility] ([facility]) ID Date Data Source [id number] 03/19/2020 04:54:00 PM EST [facility] ([facility]) Name Value Range Interpretation Code Description Data Laura rce(s) Supporting Document(s) CPK Creatine Phosphokinase 81 U/L 26-192 Lina l (applies to non-numeric results) [facility] ([facility]) MB/CK Relative Index 3.33 Normal (applies to non-num evy results) [facility] ([facility]) <content>DIAGNOSIS CRITERIA</content>
<content>MMB ng/ml Relative Index (RI)</content>
<content>NON-AMI < or = 5 N/A</content>
<content>FLOWERS ZONE > 5 < or = 4</content>
<content>AMI > 5 > 4</content>
<content></content> CK-MB Value Mass 2.7 ng/mL Normal (applies to non-numeric results) [facility]) Troponin I Laboratory test result Normal (applies to non-n umeric results) [facility] ([facility]) <content>Troponin I Reference Interval f or Siemens [place] LOCI:</content>
<content></content>
<content>99th Percentile= 0.00-0.045 ng/ml</content>
<content></content>
<content>Risk Stratification:</content>
<content><= 0.10 ng/ml Decreased Risk for Adverse Clinical</content>
<content>Events.</content>
<content>0.10-1.50 ng/ml Increased Risk for Adverse Clinical</content>
<content>Events. Evaluation of additional</content>
<content>criterion and/or repeat testing in 2-6</content>
<content>hours is suggested to rule out myocardial</content>
<content>damage.</content>
<content>>= 1.50 ng/ml Indicative of Myocardial Injury.</content>
<content></content> ID Date Data Source [id number] 03/19/2020 04:54:00 PM EST [facility] ([facility]) Name Value Range Interpretation Code Description Data Laura rce(s) Supporting Document(s) aPTT in Platelet poor plasma by Coagulation assay 37.1 s 24.2-38.5 Normal (applies to non-numeric results) [facility] ([facility]) ID Date Data Source [id number] 03/19/2020 04:54:00 PM EST [facility] ([facility]) Name Value Range Interpretation Code Description Data Laura rce(s) Supporting Document(s) Inr 1.08 Normal (applies to non-numeric resul ts) [facility] ([facility]) THERAPUTIC HUMAN INR VALUES INDICATIONS NORMAL RANGES PROPHYLAXIS/TREATMENT OF: VENOUS THROMBOSIS 2.0-3.0 PULMONARY EMBOLISM 2.0-3.0 PREVENTION OF SYSTEMIC EMBOLISM FROM: TISSUE HEART VALVES 2.0-3.0 ACUTE MYOCARDIAL INFARCTION 2.0-3.0 VALVULAR HEART DISEASE 2.0-3.0 ATRIAL FIBRILLATION 2.0-3.0 MECHANICAL VALVES(HIGH RISK) 2.5-3.5 RECURRENT MYOCARDIAL INFARCTION 2.5-3.5 Prothrombin Time 14.2 s 12.5-14.3 Above high normal [facility]) ID Date Data Source [id number] 03/19/2020 04:54:00 PM EST [facility] ([facility] Name Value Range Interpretation Code Description Data Laura rce(s) Supporting Document(s) White Blood Count 4.2 10 4.0-10.0 Normal (applies to non-numeri c results) [facility]) Red Blood Count 3.68 10 4.00-5.40 Below low normal [facility] ([facility]) Hemoglobin 11.1 g/dL 12.0-15.5 Below low normal [facility] ( [facility]) Hematocrit 35.0 % 36.0-47.0 Below low normal [facility] ( [facility]) Mean Corpuscular Volume 95.1 fl 80.0-96.0 Normal ( applies to non-numeric results) [facility] ([facility]) Mean Corpuscular HGB Conc 31.7 g/dL 32.0-36.5 Below low normal [facility] ([facility]) Mean Corpuscular Hemoglobin 30.2 pg 27.0-33.0 Norm al (applies to non-numeric results) [facility] ([facility]) Platelet Count, Automated 180 10 150-450 Normal (applies to non-numeric results) [facility] ([facility]) Red Cell Distribution Width 13.5 % 11.5-14.5 Norm al (applies to non-numeric results) [facility] ([facility]) Lymph % 27.8 % 24.0-44.0 Normal (applies to non-numeric resul ts) [facility] ([facility]) Neutrophils % 53.0 % 36.0-66.0 Normal (applies to non-numeric re sults) [facility] ([facility]) [place] % 7.2 % 0.0-5.0 Above high normal [facility] ([facility]) Eos % 10.8 % 0.0-3.0 Above high normal [facility] ([facility]) Baso % 1.0 % 0.0-1.0 Normal (applies to non-numeric resul ts) [facility] ([facility]) Immature Granulocyte % 0.2 % 0-3.0 Normal (applies to non-n umeric results) [facility] ([facility]) Nucleated Red Blood Cell % 0.0 % 0-0 Normal (applies to n on-numeric results) [facility] ([facility]) Neutrophils # 2.2 10 1.5-8.5 Normal (applies to non-numeric re sults) [facility] ([facility]) Lymph # 1.2 10 1.5-5.0 Below low normal [facility] ( [facility]) Eos # 0.5 10 0.0-0.5 Normal (applies to non-numeric resul ts) [facility] ([facility]) [place] # 0.3 10 0.0-0.8 Normal (applies to non-numeric resul ts) [facility] ([facility]) Baso # 0.0 10 0.0-0.2 Normal (applies to non-numeric resul ts) [facility] ([facility]) ID Date Data Source [id number] 03/19/2020 04:54:00 PM EST [facility] ([facility]) Name Value Range Interpretation Code Description Data Laura rce(s) Supporting Document(s) Thyrotropin [Units/volume] in Serum or Plasma 5.520 uIU/ML 0. 358-3.740 Above high normal [facility] ([facility]) Thyroxine (T4) free [Mass/volume] in Serum or Plasma 0.98 ng/dL 0.76-1.46 Normal (applies to non-numeric results) [facility] ([facility]) ID Date Data Source [id number] 03/19/2020 04:54:00 PM EST [facility] ([facility] Name Value Range Interpretation Code Description Data Laura rce(s) Supporting Document(s) Blood Urea Nitrogen 12 mg/dL 7-18 Normal (applies to non-nume nemo results) [facility] ([facility]) Glucose, Fasting 98 mg/dL 70-100 Normal (applies to non-numeric results) [facility] ([facility]) Creatinine For GFR 0.68 mg/dL 0.55-1.30 Normal (applies to non -numeric results) [facility] ([facility]) Glomerular Filtration Rate Laboratory test result Normal (applies to non- numeric results) [facility] ([facility]) <content>Units are mL/min/1.73 m2</content>
<content></content>
<content>Chronic Kidney Disease Staging per NKF:</content>
<content></content>
<content>Stage I & II GFR >=60 Normal to Mildly Decreased</content>
<content>Stage III GFR 30- 59 Moderately Decreased</content>
<content>Stage IV GFR 15-29 Severely Decreased</content>
<content>Stage V GFR <15 Very Little GFR Left</content>
<content>ESRD GFR <15 on APPLIANCE FIXER</content>
<content></content> Sodium Level 143 meq/L 136-145 Normal (applies to non-numeric res ults) [facility]) Chloride Level 108 meq/L 98-107 Above high normal [facility] ([facility]) Potassium Serum 3.4 meq/L 3.5-5.1 Below low normal [facility] ([facility]) Carbon Dioxide Level 29 meq/L 21-32 Normal (applies to non-num evy results) [facility] ([facility]) Anion Gap 6 meq/L 8-16 Below low normal [facility] ( [facility]) Calcium Level 8.5 mg/dL 8.8-10.2 Below low normal [facility] ([facility]) ID Date Data Source [id number] 03/19/2020 03:07:00 PM EST [facility] ([facility] Name Value Range Interpretation Code Description Data Laura rce(s) Supporting Document(s) EKG Laboratory test result [facility] ([facility]) ID Date Data Source WOUND CULTURE AND GRAM ST 02/26/2020 12:00:00 AM EDT [email or web address] ([facility]) Name Value Range Interpretation Code Description Data Laura rce(s) Supporting Document(s) WOUND CULTURE AND GRAM ST [email or web address] ([facility]) ID Date Data Source [id number] 02/25/2020 12:00:00 AM EDT [facility] Gladis Ventura DO Patient Name: SUE [id number] Date of : 1940 1 Date of Exam: 02/25/2020MACARIO Sparrow [id number]#: Fax: [phone] EXAM: CT ABDOMEN & PELVIS WITHOUT&WITH CONTRASTCLINICAL INFORMATION: Right upper quadrant pain.Low dose [address] scanning of the abdomen and pelvis wasobtained before and after the administration of in travenous contrast using3 mm increments and reconstructed in both sagittal and coronal scan planes. Immediate and delayed post contrast enhanced imaging was obtained throughthe abdomen. 75 cc of Optiray 350 was administered intravenously.The latest prior for comparison is 04/22/2019.There is no significant change in the appearance of the lung bases. Thereare chronic changes, status quo.The pre-contrast enhanced portion of the examination shows hepatic andsplenic densities to be within normal limits. There is cholelithiasis,status quo. There are bilateral renovascular calcifications, status quo,and there are bilateral nephroliths. The one on the right in the inferiorpole has developed since the last exam. The one on the left in theinferior pole region is unchanged. Significant spray artifact arises frombilateral hip prostheses obscuring multiple pelvic images to such a degreeevaluation of the distal ureters cannot be made. There are bilateralextrarenal pelvis, status quo. There is no edgar hydronephrosis. No grossurinary bladder calcifications are noted although images of the pelvis arelimited.The contrast enhanced portion of the examination shows no evidence of anenhancing hepatic lesion. The spleen, pancreas and adrenal glands areessentially unchanged. There is bilateral low density adrenal glandthickening, status quo, there are changes in the left kidney secondary torenal scarring, status quo, there is marked fatty infiltration of thepancreas, status quo. Once again, there is a ventral hernia but throughwhich only mesentery protrudes today. On the prior exam, bowel loops wereseen within the hernial sac. There is no significant change in theappearance of the abdominal aorta or paraaortic regions. There is noevidence of intestinal obstruction. There is no evidence of free fluid orfree air.Bone window technique throughout the examination shows chronic osseouschanges, status quo. Significant degenerative change is seen involving theimaged portion of the spine and sacroi liac joints along with bonydemineralization.IMPRESSION:1. There are marked exam limitations as described above, however, there isno definite evidence of acute intraabdominal or intrapelvic disease. Thereare bilateral nephroliths as described above. There are chronic changesseen involving the pancreas and adrenal gland which appear stable. Thereis known cholelithiasis. There are chronic left lung base changes, statusquo.2. Other findings and limitations as described above.Accredited by the [employer] in [place].REJI Alcala/Boyd you for referring SUE URENA to our o ffice.Electronically Signed - IRENE SARAH DO 02/25/20 15:38 Name Value Range Interpretation Code Description Data Laura rce(s) Supporting Document(s) ID Date Data Source [id number] 02/17/2020 03:59:00 PM EDT MEDENT ([facility]) Name Value Range Interpretation Code Description Data Laura rce(s) Supporting Document(s) EKG Laboratory test result MEDENT ([facility]) Procedure Social History Code Duration Value Status Description Data Source(s ) Alcohol intake 02/02/2021 12:00:00 AM EDT Ex-drinker (finding) comp leted Ex- drinker (finding) [facility] Smoking 01/28/2021 12:00:00 AM EDT - 05/01/1970 12:00:00 AM ES T Quit [facility] Alcohol intake 01/26/2021 12:00:00 AM EDT Ex-drinker (finding) comp leted Ex- drinker (finding) [facility] Alcohol intake 12/21/2020 12:00:00 AM EDT Ex-drinker (finding) comp leted Ex- drinker (finding) [facility] Smoking 10/27/2020 12:00:00 AM EDT Former Smoker completed Former Smoker eCW1 ([facility]) Smoking 10/20/2020 12:00:00 AM EDT Former Smoker completed Former Smoker eCW1 ([facility]) Smoking 10/20/2020 12:00:00 AM EDT Former Smoker completed Former Smoker eCW1 ([facility]) Smoking 10/06/2020 12:00:00 AM EDT Former Smoker completed Former Smoker eCW1 ([facility]) Smoking 10/06/2020 12:00:00 AM EDT Former Smoker completed Former Smoker eCW1 ([facility]) Smoking 10/05/2020 12:00:00 AM EDT Former Smoker completed Former Smoker eCW1 ([facility]) Smoking 05/28/2020 12:00:00 AM EST Patient is a former smoker completed Patient is a former smoker MEDENT ([facility], ) Alcohol intake 04/02/2020 12:00:00 AM EST Not Currently completed [facility] Cigarette pack-years 04/02/2020 12:00:00 AM EST UNK completed [facility] Cigarettes smoked current (pack per day) - Reported 04/02/20 12:00:00 AM EST UNK completed [facility] Smoking 04/02/2020 12:00:00 AM EST Former smoker completed Former smoker [facility] Alcohol intake 03/25/2020 12:00:00 AM EST Not Currently completed [facility] Cigarette pack-years 03/25/2020 12:00:00 AM EST UNK completed [facility] Cigarettes smoked current (pack per day) - Reported 03/25/20 12:00:00 AM EST UNK completed [facility] Smoking 03/25/2020 12:00:00 AM EST Former smoker completed Former smoker [facility] Vital Signs ID Date Data Source UNK Name Value Range Interpretation Code Description Data Source(s) Respiratory rate 18 /min 18 /min [facility]) Heart rate 86 /min 86 /min [facility] ([facility]) Oxygen saturation in Arterial blood by Pulse oximetry 95 % 95 % [facility] ([facility]) [place] body weight 100 [lb_av] 100 [lb_av] FERCHO T ([facility]) Body temperature 96.9 [degF] 96.9 [degF] [facility] Systolic blood pressure 134 mm[Hg] 134 mm[Hg] M EDENT ([facility]) Diastolic blood pressure 74 mm[Hg] 74 mm[Hg] [facility] Body height 57.6 [in_i] 57.6 [in_i] REBECA ([facility]) 4'9.60" Body weight 101.12 [lb_av] 101.12 [lb_av] MEDEN T ([facility]) Body mass index (BMI) [Ratio] 21.4 kg/m2 21.4 k g/m2 REBECA ([facility]) Systolic blood pressure 134 mm[Hg] 134 mm[Hg] M EDENT ([facility]) [place] body weight 100 [lb_av] 100 [lb_av] MEDEN T ([facility]) Heart rate 67 /min 67 /min MEDENT ([facility]) Body height 57.6 [in_i] 57.6 [in_i] MEDENT ([facility]) 4'9.60" Body weight 100.38 [lb_av] 100.38 [lb_av] MEDEN T ([facility]) Body mass index (BMI) [Ratio] 21.3 kg/m2 21.3 k g/m2 MEDENT ([facility]) Respiratory rate 18 /min 18 /min MEDENT ( [facility]) Body temperature 97.6 [degF] 97.6 [degF] MEDENT ([facility]) Oxygen saturation in Arterial blood by Pulse oximetry 99 % 99 % MEDENT ([facility]) Diastolic blood pressure 82 mm[Hg] 82 mm[Hg] MEDENT ([facility]) Body mass index (BMI) [Ratio] 21.7 kg/m2 21.7 k g/m2 MEDENT ([facility]) Systolic blood pressure 134 mm[Hg] 134 mm[Hg] [facility] Body weight 102.25 [lb_av] 102.25 [lb_av] MEDEN T ([facility]) Diastolic blood pressure 74 mm[Hg] 74 mm[Hg] MEDENT ([facility]) Body height 57.6 [in_i] 57.6 [in_i] MEDENT ([facility]) 4'9.60" Heart rate 87 /min 87 /min MEDENT ([facility]) Respiratory rate 18 /min 18 /min MEDENT ( [facility]) Body temperature 97.7 [degF] 97.7 [degF] MEDENT ([facility]) Oxygen saturation in Arterial blood by Pulse oximetry 97 % 97 % [facility]) [place] body weight 100 [lb_av] 100 [lb_av] MEDEN T ([facility]) Systolic blood pressure 196 mm[Hg] 196 mm[Hg] [facility] Diastolic blood pressure 82 mm[Hg] 82 mm[Hg] [facility] Heart rate 64 /min 64 /min [facility] Body height 147.3 cm 147.3 cm [facility] Body weight 46.267 kg 46.267 kg [facility] Body mass index (BMI) [Ratio] 21.32 kg/m2 21.32 kg/m2 [facility] Oxygen saturation in Arterial blood by Pulse oximetry 95 % 95 % [facility] Body mass index (BMI) [Ratio] 21.1 kg/m2 21.1 k g/m2 [facility] ([facility]) Body temperature 98.2 [degF] 98.2 [degF] [facility] ([facility]) Oxygen saturation in Arterial blood by Pulse oximetry 95 % 95 % [facility]) Systolic blood pressure 142 mm[Hg] 142 mm[Hg] M EDENT ([facility]) Diastolic blood pressure 76 mm[Hg] 76 mm[Hg] MEDENT ([facility]) Body height 57.6 [in_i] 57.6 [in_i] [facility] 4'9.60" [place] body weight 100 [lb_av] 100 [lb_av] MEDEN T ([facility]) Body weight 99.38 [lb_av] 99.38 [lb_av] MEDENT ([facility]) Heart rate 82 /min 82 /min MED[facility] ([facility]) Respiratory rate 18 /min 18 /min MED[facility] ( [facility]) Heart rate 77 /min 77 /min [facility] Body temperature 36.5 Arlyn 36.5 Arlyn [facility] Respiratory rate 16 /min 16 /min [facility] Oxygen saturation in Arterial blood by Pulse oximetry 100 % 100 % [facility] Systolic blood pressure 202 mm[Hg] 202 mm[Hg] [facility] Diastolic blood pressure 69 mm[Hg] 69 mm[Hg] [facility] Body height 147.3 cm 147.3 cm [facility] Body weight 45.8 kg 45.8 kg [facility] Body mass index (BMI) [Ratio] 21.10 kg/m2 21.10 kg/m2 [facility] Systolic blood pressure 180 mm[Hg] 180 mm[Hg] [facility] Diastolic blood pressure 74 mm[Hg] 74 mm[Hg] [facility] Heart rate 70 /min 70 /min [facility] Body height 147.3 cm 147.3 cm [facility] Body weight 47.174 kg 47.174 kg [facility] Body mass index (BMI) [Ratio] 21.74 kg/m2 21.74 kg/m2 [facility] Oxygen saturation in Arterial blood by Pulse oximetry 97 % 97 % [facility] Body weight 98.25 [lb_av] 98.25 [lb_av] MEDENT ([facility]) Body mass index (BMI) [Ratio] 20.8 kg/m2 20.8 k g/m2 [facility]) Systolic blood pressure 130 mm[Hg] 130 mm[Hg] M EDENT ([facility]) Diastolic blood pressure 98 mm[Hg] 98 mm[Hg] MEDENT ([facility]) Body height 57.6 [in_i] 57.6 [in_i] MEDENT ([facility]) 4'9.60" Heart rate 78 /min 78 /min MED[facility] ([facility]) Respiratory rate 14 /min 14 /min MEDENT ( [facility]) Body temperature 96.8 [degF] 96.8 [degF] MEDENT ([facility]) Oxygen saturation in Arterial blood by Pulse oximetry 98 % 98 % MEDENT ([facility]) [place] body weight 100 [lb_av] 100 [lb_av] MEDEN T ([facility]) Oxygen saturation in Arterial blood by Pulse oximetry 97 % 97 % [facility] ([facility]) Systolic blood pressure 150 mm[Hg] 150 mm[Hg] [facility]) Diastolic blood pressure 100 mm[Hg] 100 mm[Hg] [facility] ([facility]) Heart rate 64 /min 64 /min [facility] ([facility]) Body height 57 [in_i] 57 [in_i] [facility] ([facility]) 4'9" Body weight 101.00 [lb_av] 101.00 [lb_av] MEDEN T ([facility]) Body mass index (BMI) [Ratio] 21.9 kg/m2 21.9 k g/m2 [facility] ([facility]) [place] body weight 100 [lb_av] 100 [lb_av] [facility] Body weight 45.814 kg 45.814 kg [facility] ([facility]) Body surface area Derived from formula 1.35 m2 1.35 m2 [facility] ([facility]) Diastolic blood pressure 74 mm[Hg] 74 mm[Hg] [facility] ([facility]) Body weight 99.00 [lb_av] 99.00 [lb_av] [facility] ([facility]) Body mass index (BMI) [Ratio] 21.0 kg/m2 21.0 k g/m2 [facility] ([facility]) Heart rate 78 /min 78 /min [facility] ([facility]) Respiratory rate 18 /min 18 /min [facility] ( [facility]) Body height 57.6 [in_i] 57.6 [in_i] [facility]) 4'9.60" Systolic blood pressure 136 mm[Hg] 136 mm[Hg] [facility]) Body temperature 97.3 [degF] 97.3 [degF] [facility]) Oxygen saturation in Arterial blood by Pulse oximetry 99 % 99 % [facility] ([facility]) [place] body weight 100 [lb_av] 100 [lb_av] MEDEN T ([facility]) Body height [in_i] eCW1 ([facility]) Body weight 99 [lb_av] 99 [lb_av] eCW1 ([facility]) Body weight kg eCW1 ([facility]) Diastolic blood pressure 70 mm[Hg] 70 mm[Hg] eCW1 ([facility]) Body mass index (BMI) [Ratio] 19.99 kg/m2 19.99 kg/m2 eCW1 ([facility]) Heart rate 64 /min 64 /min eCW1 ([facility]) Respiratory rate 16 /min 16 /min eCW1 ([facility]) Body temperature 97.8 [degF] 97.8 [degF] eCW1 ( [facility]) Systolic blood pressure 163 mm[Hg] 163 mm[Hg] e CW1 ([facility]) Systolic blood pressure 130 mm[Hg] 130 mm[Hg] M EDENT ([facility]) Diastolic blood pressure 72 mm[Hg] 72 mm[Hg] MEDENT ([facility]) Body height 57.6 [in_i] 57.6 [in_i] MEDENT ([facility]) 4'9.60" Body weight 104.00 [lb_av] 104.00 [lb_av] MEDEN T ([facility]) Body mass index (BMI) [Ratio] 22.0 kg/m2 22.0 k g/m2 MEDENT ([facility]) Heart rate 68 /min 68 /min MEDENT ([facility]) Respiratory rate 14 /min 14 /min MEDENT ( [facility]) Body temperature 97.5 [degF] 97.5 [degF] MEDENT ([facility]) Oxygen saturation in Arterial blood by Pulse oximetry 99 % 99 % MEDENT ([facility]) [place] body weight 100 [lb_av] 100 [lb_av] MEDEN T ([facility]) Body weight 99 [lb_av] 99 [lb_av] eCW1 ([facility]) Body weight kg eCW1 ([facility]) Body height [in_i] eCW1 ([facility]) Body mass index (BMI) [Ratio] 19.99 kg/m2 19.99 kg/m2 W1 ([facility]) Heart rate 67 /min 67 /min eCW1 ([facility]) Respiratory rate 17 /min 17 /min eCW1 ([facility]) Body temperature 98.4 [degF] 98.4 [degF] eCW1 ( [facility]) Systolic blood pressure 199 mm[Hg] 199 mm[Hg] e CW1 ([facility]) Diastolic blood pressure 81 mm[Hg] 81 mm[Hg] eCW1 ([facility]) Body weight 98 [lb_av] 98 [lb_av] eCW1 ([facility]) Body weight kg eCW1 ([facility]) Body height [in_i] eCW1 ([facility]) Body mass index (BMI) [Ratio] 19.79 kg/m2 19.79 kg/m2 W1 ([facility]) Heart rate 64 /min 64 /min eCW1 ([facility]) Respiratory rate 16 /min 16 /min eCW1 ([facility]) Body temperature 98.5 [degF] 98.5 [degF] eCW1 ( [facility]) Body weight 106 [lb_av] 106 [lb_av] eCW1 ([facility]) Respiratory rate 18 /min 18 /min eCW1 ([facility]) Body temperature 98.4 [degF] 98.4 [degF] eCW1 ( [facility]) Systolic blood pressure 140 mm[Hg] 140 mm[Hg] e CW1 ([facility]) Diastolic blood pressure 76 mm[Hg] 76 mm[Hg] eCW1 ([facility]) Body weight kg eCW1 ([facility]) Body height [in_i] eCW1 ([facility]) Body mass index (BMI) [Ratio] 21.41 kg/m2 21.41 kg/m2 eCW1 ([facility]) Heart rate 76 /min 76 /min eCW1 ([facility]) Body weight 106.0 [lb_av] 106.0 [lb_av] eCW1 ([facility]) Body height [in_i] eCW1 ([facility]) Body mass index (BMI) [Ratio] 21.41 kg/m2 21.41 kg/m2 eCW1 ([facility]) Systolic blood pressure 130 mm[Hg] 130 mm[Hg] e CW1 ([facility]) Diastolic blood pressure 74 mm[Hg] 74 mm[Hg] eCW1 ([facility]) Body weight 100 [lb_av] 100 [lb_av] eCW1 ([facility]) Body weight kg eCW1 ([facility]) Body height [in_i] eCW1 ([facility]) Body mass index (BMI) [Ratio] 20.20 kg/m2 20.20 kg/m2 eCW1 ([facility]) Heart rate 93 /min 93 /min eCW1 ([facility]) Respiratory rate 18 /min 18 /min eCW1 ([facility]) Body temperature 98.2 [degF] 98.2 [degF] eCW1 ( [facility]) Systolic blood pressure 136 mm[Hg] 136 mm[Hg] e CW1 ([facility]) Diastolic blood pressure 79 mm[Hg] 79 mm[Hg] eCW1 ([facility]) Body weight 100 [lb_av] 100 [lb_av] eCW1 ([facility]) Body weight kg eCW1 ([facility]) Body height [in_i] eCW1 ([facility]) Body mass index (BMI) [Ratio] 20.20 kg/m2 20.20 kg/m2 eCW1 ([facility]) Heart rate 75 /min 75 /min eCW1 ([facility]) Respiratory rate 16 /min 16 /min eCW1 ([facility]) Body temperature 98.2 [degF] 98.2 [degF] eCW1 ( [facility]) Systolic blood pressure 137 mm[Hg] 137 mm[Hg] e CW1 ([facility]) Diastolic blood pressure 80 mm[Hg] 80 mm[Hg] eCW1 ([facility]) Body weight 100 [lb_av] 100 [lb_av] eCW1 ([facility]) Body weight kg eCW1 ([facility]) Body height [in_i] eCW1 ([facility]) Body mass index (BMI) [Ratio] 20.20 kg/m2 20.20 kg/m2 eCW1 ([facility]) Heart rate 83 /min 83 /min eCW1 ([facility]) Respiratory rate 17 /min 17 /min eCW1 ([facility]) Body temperature 99.3 [degF] 99.3 [degF] eCW1 ( [facility]) Systolic blood pressure 167 mm[Hg] 167 mm[Hg] e CW1 ([facility]) Diastolic blood pressure 78 mm[Hg] 78 mm[Hg] eCW1 ([facility]) Systolic blood pressure 136 mm[Hg] 136 mm[Hg] M EDENT ([facility]) Diastolic blood pressure 76 mm[Hg] 76 mm[Hg] MEDENT ([facility]) Body height 57.6 [in_i] 57.6 [in_i] MEDENT ([facility]) 4'9.60" Body weight 104.25 [lb_av] 104.25 [lb_av] MEDEN T ([facility]) Body mass index (BMI) [Ratio] 22.1 kg/m2 22.1 k g/m2 MEDENT ([facility]) Heart rate 100 /min 100 /min MEDENT ([facility]) Body temperature 98.5 [degF] 98.5 [degF] MEDENT ([facility]) Oxygen saturation in Arterial blood by Pulse oximetry 97 % 97 % MEDENT ([facility]) [place] body weight 100 [lb_av] 100 [lb_av] MEDEN T ([facility]) Respiratory rate 18 /min 18 /min MEDENT ( [facility]) Body weight 104 [lb_av] 104 [lb_av] eCW1 ([facility]) Body weight kg eCW1 ([facility]) Body height [in_i] eCW1 ([facility]) Body mass index (BMI) [Ratio] 21.00 kg/m2 21.00 kg/m2 eCW1 ([facility]) Heart rate 91 /min 91 /min eCW1 ([facility]) Respiratory rate 16 /min 16 /min eCW1 ([facility]) Body temperature 98.2 [degF] 98.2 [degF] eCW1 ( [facility]) Body weight 104 [lb_av] 104 [lb_av] eCW1 ([facility]) Body height [in_i] eCW1 ([facility]) Body mass index (BMI) [Ratio] 21.00 kg/m2 21.00 kg/m2 eCW1 ([facility]) Heart rate 86 /min 86 /min eCW1 ([facility]) Respiratory rate 18 /min 18 /min eCW1 ([facility]) Body temperature 98.5 [degF] 98.5 [degF] eCW1 ( [facility]) Systolic blood pressure 186 mm[Hg] 186 mm[Hg] e CW1 ([facility]) Diastolic blood pressure 80 mm[Hg] 80 mm[Hg] eCW1 ([facility]) Systolic blood pressure 166 mm[Hg] 166 mm[Hg] M EDENT ([facility]) Diastolic blood pressure 80 mm[Hg] 80 mm[Hg] MEDENT ([facility]) Body height 57.6 [in_i] 57.6 [in_i] MEDENT ([facility]) 4'9.60" Body weight 108.38 [lb_av] 108.38 [lb_av] MEDEN T ([facility]) [place] body weight 100 [lb_av] 100 [lb_av] MEDEN T ([facility]) Body mass index (BMI) [Ratio] 23.0 kg/m2 23.0 k g/m2 MEDENT ([facility]) Heart rate 89 /min 89 /min MEDENT ([facility]) Respiratory rate 16 /min 16 /min MEDENT ( [facility]) Body temperature 97.1 [degF] 97.1 [degF] MEDENT ([facility]) Oxygen saturation in Arterial blood by Pulse oximetry 96 % 96 % MEDENT ([facility]) Systolic blood pressure 212 mm[Hg] 212 mm[Hg] M EDENT ([facility], [facility]) Body mass index (BMI) [Ratio] 20.2 kg/m2 20.2 k g/m2 MEDENT ([facility], [facility]) Diastolic blood pressure 94 mm[Hg] 94 mm[Hg] MEDENT ([facility], [facility]) Heart rate 81 /min 81 /min MEDENT ([facility], [facility]) Respiratory rate 14 /min 14 /min MEDENT ( [facility], [facility]) Oxygen saturation in Arterial blood by Pulse oximetry 99 % 99 % MEDENT ([facility], [facility]) Body temperature 97.5 [degF] 97.5 [degF] MEDENT ([facility], [facility]) Body weight 100.00 [lb_av] 100.00 [lb_av] MEDEN T ([facility], [facility]) Body height 59 [in_i] 59 [in_i] MEDENT ([facility], [facility]) 4'11" Systolic blood pressure 124 mm[Hg] 124 mm[Hg] [facility] Diastolic blood pressure 80 mm[Hg] 80 mm[Hg] [facility] Heart rate 65 /min 65 /min [facility] Body height 149.9 cm 149.9 cm [facility] Body weight 48.535 kg 48.535 kg [facility] Body mass index (BMI) [Ratio] 21.61 kg/m2 21.61 kg/m2 [facility] Oxygen saturation in Arterial blood by Pulse oximetry 100 % 100 % [facility] [place] body weight 100 [lb_av] 100 [lb_av] MEDEN T ([facility]) Body height 57.6 [in_i] 57.6 [in_i] MEDENT ([facility]) 4'9.60" Body weight 107.50 [lb_av] 107.50 [lb_av] MEDEN T ([facility]) Systolic blood pressure 122 mm[Hg] 122 mm[Hg] M EDENT ([facility]) Diastolic blood pressure 64 mm[Hg] 64 mm[Hg] MEDENT ([facility]) Body mass index (BMI) [Ratio] 22.8 kg/m2 22.8 k g/m2 MEDENT ([facility]) Heart rate 80 /min 80 /min MEDENT ([facility]) Respiratory rate 18 /min 18 /min [facility] Body temperature 98.5 [degF] 98.5 [degF] MEDENT ([facility]) Oxygen saturation in Arterial blood by Pulse oximetry 95 % 95 % [facility] ([facility]) Diastolic blood pressure 68 mm[Hg] 68 mm[Hg] eCW1 ([facility]) Body weight 109.4 [lb_av] 109.4 [lb_av] eCW1 ([facility]) Body height [in_i] eCW1 ([facility]) Body mass index (BMI) [Ratio] 22.09 kg/m2 22.09 kg/m2 eCW1 ([facility]) Systolic blood pressure 112 mm[Hg] 112 mm[Hg] e CW1 ([facility]) Systolic blood pressure 130 mm[Hg] 130 mm[Hg] M EDENT ([facility]) Diastolic blood pressure 72 mm[Hg] 72 mm[Hg] MEDENT ([facility] ) Heart rate 78 /min 78 /min MEDENT ([facility]) Oxygen saturation in Arterial blood by Pulse oximetry 98 % 98 % [facility] ([facility]) Body temperature 96.7 [degF] 96.7 [degF] [facility] ([facility]) Body height 57 [in_i] 57 [in_i] [facility] ([facility]) 4'9" Body weight 105.00 [lb_av] 105.00 [lb_av] MEDEN T ([facility]) Body mass index (BMI) [Ratio] 22.7 kg/m2 22.7 k g/m2 [facility] ([facility]) [place] body weight 100 [lb_av] 100 [lb_av] [facility] Body weight 47.628 kg 47.628 kg [facility] ([facility]) Body surface area Derived from formula 1.37 m2 1.37 m2 [facility] ([facility]) Diastolic blood pressure 70 mm[Hg] 70 mm[Hg] [facility] ([facility]) Heart rate 91 /min 91 /min [facility] ([facility]) Respiratory rate 18 /min 18 /min [facility] ( [facility]) Body temperature 96.7 [degF] 96.7 [degF] [facility] ([facility]) [place] body weight 100 [lb_av] 100 [lb_av] MEDEN T ([facility]) Body weight 99.50 [lb_av] 99.50 [lb_av] [facility] ([facility]) Body mass index (BMI) [Ratio] 21.1 kg/m2 21.1 k g/m2 [facility] ([facility]) Oxygen saturation in Arterial blood by Pulse oximetry 97 % 97 % [facility] ([facility]) Systolic blood pressure 158 mm[Hg] 158 mm[Hg] [facility] Body height 57.6 [in_i] 57.6 [in_i] [facility] ([facility]) 4'9.60" Body weight 100 [lb_av] 100 [lb_av] eCW1 ([facility]) Body height [in_i] eCW1 ([facility]) Body mass index (BMI) [Ratio] 20.20 kg/m2 20.20 kg/m2 eCW1 ([facility]) Systolic blood pressure 120 mm[Hg] 120 mm[Hg] e CW1 ([facility]) Diastolic blood pressure 72 mm[Hg] 72 mm[Hg] eCW1 ([facility]) Systolic blood pressure 102 mm[Hg] 102 mm[Hg] [facility] Diastolic blood pressure 56 mm[Hg] 56 mm[Hg] [facility] Heart rate 80 /min 80 /min [facility] Body height 149.9 cm 149.9 cm [facility] Body weight 44.906 kg 44.906 kg [facility] Body mass index (BMI) [Ratio] 20.00 kg/m2 20.00 kg/m2 [facility] Oxygen saturation in Arterial blood by Pulse oximetry 96 % 96 % [facility] Systolic blood pressure 112 mm[Hg] 112 mm[Hg] [facility] Diastolic blood pressure 60 mm[Hg] 60 mm[Hg] [facility] Body height 149.9 cm 149.9 cm [facility] Body weight 43.999 kg 43.999 kg [facility] Body mass index (BMI) [Ratio] 19.59 kg/m2 19.59 kg/m2 [facility] Body temperature 96.8 [degF] 96.8 [degF] MEDENT ([facility]) Heart rate 78 /min 78 /min MEDENT ([facility]) Respiratory rate 18 /min 18 /min MEDENT ( [facility]) Oxygen saturation in Arterial blood by Pulse oximetry 95 % 95 % MEDENT ([facility]) Body mass index (BMI) [Ratio] 20.6 kg/m2 20.6 k g/m2 MEDENT ([facility]) [place] body weight 100 [lb_av] 100 [lb_av] MEDEN T ([facility]) Body weight 97.00 [lb_av] 97.00 [lb_av] MEDENT ([facility]) Systolic blood pressure 132 mm[Hg] 132 mm[Hg] M EDKRISTEN ([facility]) Diastolic blood pressure 64 mm[Hg] 64 mm[Hg] [facility] Body height 57.6 [in_i] 57.6 [in_i] [facility] ([facility]) 4'9.60" Systolic blood pressure 164 mm[Hg] 164 mm[Hg] [facility] Diastolic blood pressure 90 mm[Hg] 90 mm[Hg] [facility] Heart rate 81 /min 81 /min [facility] Body height 149.9 cm 149.9 cm [facility] Body weight 43.999 kg 43.999 kg [facility] Body mass index (BMI) [Ratio] 19.59 kg/m2 19.59 kg/m2 [facility] Oxygen saturation in Arterial blood by Pulse oximetry 93 % 93 % [facility] Respiratory rate 18 /min 18 /min [facility] Body height 57.6 [in_i] 57.6 [in_i] [facility]) 4'9.60" Systolic blood pressure 220 mm[Hg] 220 mm[Hg] M EDKRISTEN ([facility]) Diastolic blood pressure 93 mm[Hg] 93 mm[Hg] [facility] Body weight 104.50 [lb_av] 104.50 [lb_av] MEDEN T ([facility]) Body mass index (BMI) [Ratio] 22.1 kg/m2 22.1 k g/m2 [facility] ([facility]) Heart rate 88 /min 88 /min [facility] ([facility]) Body temperature 98.2 [degF] 98.2 [degF] [facility] ([facility]) Oxygen saturation in Arterial blood by Pulse oximetry 95 % 95 % [facility] ([facility]) [place] body weight 100 [lb_av] 100 [lb_av] FERCHO T ([facility]) Body mass index (BMI) [Ratio] 21.21 kg/m2 21.21 kg/m2 W1 ([facility]) Body weight 105.0 [lb_av] 105.0 [lb_av] eCW1 ([facility]) Body height [in_i] eCW1 ([facility]) Systolic blood pressure 124 mm[Hg] 124 mm[Hg] e CW1 ([facility]) Diastolic blood pressure 78 mm[Hg] 78 mm[Hg] eCW1 ([facility]) Systolic blood pressure 137 mm[Hg] 137 mm[Hg] M KARLA ([facility]) lay 142/82, sit 160/90, standing 168/90 Heart rate 71 /min 71 /min REBECA ([facility]) Respiratory rate 16 /min 16 /min REBECA ( [facility]) Body temperature 97.3 [degF] 97.3 [degF] [facility] Diastolic blood pressure 90 mm[Hg] 90 mm[Hg] REBECA ([facility]) lay 142/82, sit 160/90, standing 168/90 Oxygen saturation in Arterial blood by Pulse oximetry 98 % 98 % REBECA ([facility]) [place] body weight 100 [lb_av] 100 [lb_av] FERCHO Dexter ([facility]) Body height 57.6 [in_i] 57.6 [in_i] REBECA ([facility]) 4'9.60" Body weight 103.00 [lb_av] 103.00 [lb_av] FERCHO Dexter ([facility]) Body mass index (BMI) [Ratio] 21.8 kg/m2 21.8 k g/m2 MEDKRISTEN ([facility]) Patient Treatment Plan of Care Planned Activity Planned Date Details Description Data Source (s) Losartan Potassium 100 MG Oral Tablet 02/02/2021 12:00:00 AM EDT [facility] Furosemide 40 MG Oral Tablet 01/28/2021 12:00:00 AM EDT [facility] rivaroxaban 20 MG Oral Tablet 01/27/2021 12:00:00 AM EDT [facility] normal saline flush 0.9 % injection 3 mL 01/26/2021 03:00:00 PM EDT [facility] normal saline flush 0.9 % injection 3 mL 01/26/2021 02:00:00 PM EDT [facility] normal saline flush 0.9 % injection 3 mL 01/26/2021 02:00:00 PM EDT [facility] Nitroglycerin 0.4 MG Sublingual Tablet 01/26/2021 12:04:00 PM EDT [facility] Acetaminophen 325 MG Oral Tablet 01/26/2021 12:04:00 PM EDT [facility] clopidogrel 75 MG Oral Tablet 01/18/2021 12:00:00 AM EDT [facility] Labetalol hydrochloride 100 MG Oral Tablet 01/13/2021 12:00:00 AM E DT [facility] Labetalol hydrochloride 100 MG Oral Tablet 01/08/2021 12:00:00 AM E DT [facility] Amylases 86583 UNT / Endopeptidases 6300 0 UNT / Lipase 40851 UNT Delayed Release Oral Capsule [Zenpep] 12/17/2020 12:00:00 AM EDT [facility] Digestive Enzymes (LIPASE CONCENTRATE-HP PO) 12/16/2020 12:00:00 AM EDT [facility] Furosemide 20 MG Oral Tablet 06/25/2020 12:00:00 AM EST [facility] Labetalol hydrochloride 100 MG Oral Tablet 06/25/2020 12:00:00 AM E [facility] Levothyroxine Sodium 0.075 MG Oral Tablet 04/02/2020 12:00:00 AM ES T [facility] Chlorthalidone 25 MG Oral Tablet 04/02/2020 12:00:00 AM EST [facility] Amlodipine 10 MG Oral Tablet 04/02/2020 12:00:00 AM EST [facility] Furosemide 20 MG Oral Tablet 04/02/2020 12:00:00 AM EST [facility] Labetalol hydrochloride 100 MG Oral Tablet 04/02/2020 12:00:00 AM E [facility] Losartan Potassium 50 MG Oral Tablet 04/02/2020 12:00:00 AM EST [facility] Chlorthalidone 25 MG Oral Tablet 03/25/2020 12:00:00 AM EST [facility] Amlodipine 10 MG Oral Tablet 03/25/2020 12:00:00 AM EST [facility] Levothyroxine Sodium 0.075 MG Oral Tablet 03/20/2020 12:00:00 AM ES T [facility] Amlodipine 2.5 MG Oral Tablet 03/20/2020 12:00:00 AM EST [facility] Mupirocin 0.02 MG/MG Topical Ointment 03/05/2020 12:00:00 AM EST [facility] Mupirocin 0.02 MG/MG Topical Ointment 03/05/2020 12:00:00 AM EST eCW1 ([facility]) Mupirocin 0.02 MG/MG Topical Ointment 03/05/2020 12:00:00 AM EST eCW1 ([facility]) Mupirocin 0.02 MG/MG Topical Ointment 03/05/2020 12:00:00 AM EST eCW1 ([facility]) doxycycline hyclate 100 MG Oral Capsule 03/03/2020 12:00:00 AM EST eCW1 ([facility]) doxycycline hyclate 100 MG Oral Capsule 03/03/2020 12:00:00 AM EST eCW1 ([facility]) doxycycline hyclate 100 MG Oral Capsule 03/03/2020 12:00:00 AM EST eCW1 ([facility]) doxycycline hyclate 100 MG Oral Capsule 03/03/2020 12:00:00 AM EST eCW1 ([facility]) rivaroxaban 20 MG Oral Tablet 10/06/2019 12:00:00 AM EDT [facility] Levothyroxine Sodium 0.05 MG Oral Tablet 08/05/2019 12:00:00 AM EDT [facility] Labetalol hydrochloride 100 MG Oral Tablet 04/23/2019 12:00:00 AM E [facility] Losartan Potassium 50 MG Oral Tablet 02/22/2019 12:00:00 AM EDT [facility] rivaroxaban 20 MG Oral Tablet [facility] Losartan Potassium 50 MG Oral Tablet [facility] ferrous sulfate 325 MG Oral Tablet [facility] Labetalol hydrochloride 100 MG Oral Tablet [facility] Furosemide 20 MG Oral Tablet [facility] Furosemide 40 MG Oral Tablet [facility]
[2021-02-27] MEDS ORDERED: ONDANSETRON 4MG/2ML VIAL As Ordered ONE (20:43)
[2021-02-27] MEDS ORDERED: ONDANSETRON 4MG/2ML VIAL IV ONE (20:45)
[2021-02-27 21:00] LABS: BASO # 0.1 10^3/uL (0.0-0.2); BASO % 1.7 % (0.0-1.0); EOS # 0.6 10^3/uL (0.0-0.5); EOS % 13.3 % (0.0-3.0); HEMATOCRIT 30.2 % (36.0-47.0); HEMOGLOBIN 9.3 g/dl (12.0-15.5); LYMPH % 25.1 % (24.0-44.0); MEAN CORPUSCULAR HEMOGLOBIN 27.3 pg (27.0-33.0); MEAN CORPUSCULAR HGB CONC 30.8 g/dl (32.0-36.5); MEAN CORPUSCULAR VOLUME 88.6 fl (80.0-96.0); MONO # 0.2 10^3/uL (0.0-0.8); MONO % 5.5 % (2.0-8.0); NEUTROPHILS # 2.3 10^3/uL (1.5-8.5); NEUTROPHILS % 54.2 % (36.0-66.0); PLATELET COUNT, AUTOMATED 218 10^3/uL (150-450); RED BLOOD COUNT 3.41 10^6/uL (4.00-5.40); WHITE BLOOD COUNT 4.2 10^3/uL (4.0-10.0)
--- NOTE | 2021-02-27 21:03 | REPVR ---
PROCEDURE INFORMATION: Exam: CT Head Without Contrast Exam date and time: 02/27/2021 8:35 PM Age: 80 years old Clinical indication: Dizziness; Additional info: On xarelto - dizzy TECHNIQUE: Imaging protocol: Computed tomography of the head without contrast. Radiation optimization: All CT scans at this facility use at least one of these dose optimization techniques: automated exposure control; mA and/or kV adjustment per patient size (includes targeted exams where dose is matched to clinical indication); or iterative reconstruction. COMPARISON: CT Head without contrast 03/23/2020 7:38 PM FINDINGS: Brain: There is moderate parenchymal volume loss. White matter changes are demonstrated in the subcortical, centrum semiovale and periventricular white matter consistent with chronic age related small vessel ischemic changes. Cerebral ventricles: The degree of ventricular dilatation is normal for age and/or degree of atrophy present. Paranasal sinuses: Inflammatory changes in the ethmoid and maxillary sinuses with air-fluid levels demonstrated in the maxillary sinuses, finding which may indicate acute sinusitis. Mastoid air cells: Visualized mastoid air cells are well aerated. Vasculature: Atherosclerotic calcifications are demonstrated in the intracranial carotid arteries bilaterally as well as in the vertebral basilar system. Bones/joints: Unremarkable. No acute fracture. Soft tissues: Unremarkable. IMPRESSION: 1. Inflammatory changes in the ethmoid and maxillary sinuses with air-fluid levels demonstrated in the maxillary sinuses, finding which may indicate acute sinusitis. 2. There is moderate parenchymal volume loss. White matter changes are demonstrated in the subcortical, centrum semiovale and periventricular white matter consistent with chronic age related small vessel ischemic changes. 3. The degree of ventricular dilatation is normal for age and/or degree of atrophy present. 4. No acute intracranial findings. Electronically signed by: Hoang Weaver On 02/27/2021 21:02:33 PM
[2021-02-27] MEDS ORDERED: hydrALAZINE 20MG/ML 1ML VIAL (J0360 PER 20MG) IV ONE (21:05)
[2021-02-27 21:11] LABS: INR 1.34
[2021-02-27 21:12] LABS: PARTIAL THROMBOPLASTIN TIME 38.9 SECONDS (25.9-37.0)
--- NOTE | 2021-02-27 21:12 | REPVR ---
PROCEDURE INFORMATION: Exam: XR Chest Exam date and time: 02/27/2021 8:42 PM Age: 80 years old Clinical indication: Other: Chest pain and weakness TECHNIQUE: Imaging protocol: XR of the chest. Views: 1 view. COMPARISON: CR Chest, 2 view PA, Lat 03/23/2020 8:01 PM FINDINGS: Lungs: Increased opacity demonstrated in the left perihilar region may represent an infiltrate and or chronic scarring. Remaining lungs are clear. Pleural spaces: Blunting left pleural contour likely chronic although a small effusion not excluded. Heart/Mediastinum: Unremarkable. No cardiomegaly. Bones/joints: Degenerative arthropathy left glenohumeral joint. IMPRESSION: 1. Increased opacity demonstrated in the left perihilar region may represent an infiltrate and or chronic scarring. 2. Otherwise unremarkable. Electronically signed by: Hoang Weaver On 02/27/2021 21:11:43 PM
--- OUTSIDE RECORDS SUMMARY | 2021-02-27 21:22 | CCD ---
Author Author [facility] Organization [facility] Address Unknown Phone Unavailable Care Team Providers Care Commodity Specialist Name Role Phone LUANN, Trevor CHAVARRIA Unavailable Unavailable LETTIERE, Trevor CHAVARRIA Unavailable Unavailable LETTIERE, Trevor CHAVARRIA Unavailable Unavailable LETTIERE, Trevor CHAVARRIA Unavailable Unavailable LETTIERE, Trevor CHAVARRIA Unavailable Unavailable LETTIERE, Trevor CHAVARRIA Unavailable Unavailable LETTIERE, Trevor CHAVARRIA Unavailable Unavailable LETTIERE, Trevor CHAVARRIA Unavailable Unavailable LETTIERE, Trevor HCAVARRIA Unavailable Unavailable LETTIERE, Trevor OCONNOR PA Unavailable [...] (TENA), Brianne GONZALES MD Unavailable Unavailab le CYNTHAI (TENA), Brianne GONZALES MD Unavailable Unavailab le [...] Unavailable Unavailable EMMA-DOMINGUEZ, GLADIS DO Unavailable Unavailable EMMA-DOIMNGUEZ, GLADIS DO Unavailable Unavailable EMMA-DOMINGUEZ, GLADIS DO Unavailable Unavailable EMMA-DOMINGUEZ, GLADIS DO Unavailable Unavailable EMMA-DOMINGUEZ, GLADIS DO Unavailable Unavailable EMMA-DOMINGUEZ, GLADIS DO Unavailable Unavailable EMMA-DOMINGUEZ, GLADIS DO Unavailable Unavailable EMMA-DOMINGUEZ, GALDIS DO Unavailable Unavailable EMMA-DOMINGUEZ, GLADIS DO Unavailable [...] Unavailable Rechlin, P Deangelo DO Unavailable Unavailable Adjuntas, V GUILLERMO PA-C Unavailable Unavailable [place], V GUILLERMO PA-C Unavailable Unavailable Maris, V GUILLERMO PA-C Unavailable Unavailable [place], V GUILLERMO PA-C Unavailable Unavailable [place], V GUILLERMO PA-C Unavailable Unavailable [place], V GUILLERMO PA-C Unavailable Unavailable [place], V GUILLERMO PA-C Unavailable Unavailable [place], V GUILLERMO PA-C Unavailable Unavailable [place], V GUILLERMO PA-C Unavailable Unavailable [place], V GUILLERMO PA-C Unavailable Unavailable [place], V GUILLERMO PA-C Unavailable Unavailable Maris, V [...] is protected by Article 27-F of the [facility] Public Health law. If you continue you may have access to information: Regarding HIV / AIDS; Provided by facilities licensed or operated by the [facility] Office of Mental Health; or Provided by the [facility] Office for People With Developmental Disabilities. If such information is present, then the following [facility] mandated warning applies: This information [...] law may result in a fine or mcfp sentence or both. A general authorization for the release of medical or other information is NOT sufficient authorization for further disc losure. Family History Family Member Name Family Member Gender Family Member Status Date o f Status Description Data Source(s) Unknown Unknown Problem MEDENT ([facility], ) Unknown Female Problem MEDENT ([facility]) Unknown Female Encounters Encounter Providers Location Date Indications Data Source(s ) Outpatient Attender: GLADIS CORONADO [facility] 02/22/2021 11:40:00 AM EDT [facility] ([facility]) Outpatient Attender: GLADIS CORONADO [facility] 02/11/2021 01:20:00 PM EDT [facility] ([facility]: [facility] 01:10:00 PM EDT [facility] ([facility]) Outpatient Attender: GUILLERMO CORDOVA-SJPDorisAUDREY 08/2020 12:00:00 AM EDT [facility] Outpatient Attender: GLADIS CORONADO [facility] 01/28/2021 02:40:00 PM EDT MED[facility] ([facility]) Outpatient Attender: Taylor Barragan MDAdmitter: Taylor whitfield MD [email or web address] 01/26/2021 06:49:00 AM EDT - 01/26/2021 02:20:00 PM EDT [facility] Patient discharged. Outpatient Attender: GUILLERMO CORDOVA-SJPDorisAUDREY 07:05:17 AM EDT - 01/18/2021 08:02:58 AM EDT [facility] Outpatient Attender: GUILLERMO RODRIGUEZCReferrer: CARMITA CORDOVA-SJPDorisAUDREY 12/21/2020 12:00:00 AM EDT - 12/21/2020 10:11:56 AM EDT [facility] Outpatient Referrer: GUILLERMO HYMANSJSONIA 12:00:00 AM EDT [facility] Outpatient Attender: GLADIS CORONADO DO [facility] 12/02/2020 09:40:00 AM EDT MEDENT ([facility]) Outpatient Attender: Deangelo Valle/Kim/Neil/Laith ndl 11/30/2020 09:00:00 AM EDT MEDENT ([facility], ) Attender: CHRISTIAN FLORES) MDReferrer: D avid Rechlin DO 11/20/2020 08:21:07 PM EDT [facility] Attender: CHRISTIAN FOLRES) MDReferrer: D avid Rechlin DO 11/20/2020 08:21:07 [...] [facility] Outpatient Attender: Mauri CHAVARRIA [facility] 11/12/2020 10:00:00 AM EDT MEDENT ([facility]) ([id number]) For Template [facility] [address] [place] [address] 10/27/2020 12:00:00 AM EDT eCW1 ([facility]) Outpatient Attender: Mauri CHAVARRIA [facility] 10/20/2020 01:40:00 PM EDT MEDENT ([facility]) Outpatient [address] [facility] [address] 10/20/2020 12:00:00 AM EDT eCW1 ([facility]) Outpatient [address] [facility] [address] 10/13/2020 12:00:00 AM EDT eCW1 ([facility]) ([id number]) For [facility] [address] [place] [phone] 10/06/2020 12:00:00 AM EDT eCW1 ([facility]) Office Visit, Est Pt., Level 3 PC [address] [place] [address] 10/05/2020 12:00:00 AM EDT eCW1 ([facility]) Outpatient [address] [facility] [id number] 09/29/2020 12:00:00 AM EDT eCW1 ([facility]) ([id number]) For Template [facility] [address] [place] [phone] 09/22/2020 12:00:00 AM EDT eCW1 ([facility]) ([id number]) For Template [facility] [address] [place] [phone] 09/15/2020 12:00:00 AM EDT eCW1 ([facility]) Outpatient Attender: GLADIS CORONADO DO [facility] 09/08/2020 10:00:00 AM EDT MEDENT ([facility]) Outpatient [address] [facility] [address] 09/07/2020 12:00:00 AM EDT eCW1 ([facility]) Unknown [address] [place] [phone] 09/02/2020 12:00:00 AM EDT eCW1 ([facility]) ([id number]) New Patient 120 Min [address] [place] [address] 08/25/2020 12:00:00 AM EDT eCW1 ([facility]) Outpatient Attender: GLADIS CORONADO [facility] 08/18/2020 01:40:00 PM EDT [facility] ([facility]) Unknown [address] [facility] [place] [address] 08/17/2020 12:00:00 AM EDT eCW1 ([facility]) Outpatient Attender: ELVIN steinberg 08/16/2020 09:05:00 AM EDT MEDENT ([facility]) Outpatient Attender: GUILLERMO SANDRA.MICAELA 10:29:41 AM EST - 06/25/2020 11:53:51 AM EST [facility] Outpatient [address] [facility] [id number] 06/22/2020 12:00:00 AM EST eCW1 ([facility]) Outpatient Attender: GLADIS CORONADO [facility] 06/11/2020 09:30:00 AM EST MED[facility] ([facility]) Outpatient [address] [facility] [address] 06/09/2020 12:00:00 AM EST eCW1 ([facility]) Outpatient [address] [facility] [place] [address] 05/14/2020 12:00:00 AM EST eCW1 ([facility]) Outpatient Attender: GLADIS CORONADO [facility] 05/11/2020 10:20:00 AM EST [facility] ([facility]) (MMS 1) [facility] [address] [facility] [place] [address] 05/07/2020 12:00:00 AM EST eCW1 ([facility]) Outpatient Attender: GUILLERMO SANDRA.AUDREY-SJP.AUDREY 06/2019 12:00:00 AM EST [facility] Outpatient Attender: GLADIS CORONADO [facility] 03/30/2020 09:00:00 AM EST MEDENT ([facility]) Outpatient Attender: GUILLERMO SANDRA.AUDREY-SJP.AUDREY 12:00:00 AM EST - 03/30/2020 12:09:50 PM EST [facility] [place] [address] [facility] [place] [address] 03/30/2020 12:00:00 AM EST eCW1 ([facility]) Outpatient Attender: GUILLERMO SANDRA.AUDREY-SJP.AUDREY 12:00:00 AM EST - 03/25/2020 04:51:02 PM EST [facility] Outpatient Attender: GLADIS CORONADO [facility] 03/19/2020 01:30:00 PM EST [facility] ([facility]) [place] [address] [facility] [place] [address] 03/05/2020 12:00:00 AM EST eCW1 ([facility]) [place] [address] [facility] [place] [address] 03/03/2020 12:00:00 AM EST eCW1 ([facility]) [place] [address] [facility] [place] [address] 02/26/2020 12:00:00 AM EDT eCW1 ([facility]) [place] [address] [facility] [place] [address] 02/26/2020 12:00:00 AM EDT eCW1 ([facility]) Outpatient Attender: GLADIS CORONADO [facility] 02/17/2020 03:00:00 PM EDT MEDENT ([facility]) Immunizations Vaccine Date Status Description Data Source(s) COVID-19 VACC, MRNA(PFIZER)/PF 01/28/2021 12:00:00 AM EDT completed [facility] COVID-19 VACCINE Pfizer 01/28/2021 12:00:00 AM EDT completed [facility] Vaccine Series Complete: YESThis Data wa s Submitted to [facility]. COVID-19 VACCINE Pfizer 06/15/2020 12:00:00 AM EST completed [facility] Vaccine Series Complete: YESThis Data wa s Submitted to [facility]. COVID-19 VACCINE Pfizer 05/25/2020 12:00:00 AM EST completed [facility] Vaccine Series Complete: NOThis Data was Submitted to [facility]. Medications Medication Brand Name Start Date Product Form Dose Route Admi nistrative Instructions Pharmacy Instructions Status Indications Reaction Description Data Source(s) 2 mg 02/12/2021 12:00:00 AM EDT capsule 180 TAKE 1-2 CAPSULES BY MOUTH ONCE DAILY NEEDED TAKE 1-2 CAPSULES BY MOUTH ONCE DAILY NEEDED SOLD: 02/13/2021 [facility] Sucralfate 1000 MG Oral Tablet Sucralfate 02/11/2021 12:00:00 AM EDT ORAL active MEDENT ([facility]) 1 gram 02/11/2021 12:00:00 AM EDT [...] 02/04/2021 12:00:00 AM EDT ORAL active MEDENT ([facility]) Sucralfate 100 MG/ML Oral Suspension Sucralfate 02/04/2021 12:00:00 A M EDT ORAL completed MED[facility] ([facility]) 100 mg 02/03/2021 12:00:00 AM EDT tablet 30 TAKE ONE TABLET BY MOUTH EVERY DAY TAKE ONE TABLET BY MOUTH EVERY DAY SOLD: 02/04/2021 [facility] Losartan Potassium 100 MG Oral Tablet losartan (COZAAR ) 100 MG tablet losartan (COZAAR) 100 MG tablet 02/02/2021 12:00:00 AM EDT 100 mg Oral active Take 1 tablet (100 mg total) by mouth daily [facility] Levothyroxine Sodium 0.075 MG Oral Tablet Levothyroxine Sodi um 01/28/2021 12:00:00 AM EDT ORAL active M EDENT ([facility]) Furosemide 40 MG Oral Tablet furosemide (LASIX) 40 MG tablet furosemide (LASIX) 40 MG tablet 01/28/2021 12:00:00 AM EDT 40 mg active 40 mg daily [facility] 40 mg 01/28/2021 12:00:00 AM EDT tablet 180 TAKE TWO TABLETS BY MOUTH EVERY DAY TAKE TWO TABLETS BY MOUTH EVERY DAY SOLD: 01/28/2021 [facility] rivaroxaban 20 MG Oral Tablet rivaroxaban (Xarelto) 20 MG TABS rivaroxaban (Xarelto) 20 MG TABS 01/27/2021 12:00:00 AM EDT 20 mg Oral active Take 1 tablet (20 mg total) by mouth daily [facility] normal saline flush 0.9 % injection 3 mL [id number] 01/26/2021 03:00:00 PM EDT 3 mL Intravenous active 3 mL , Intravenous, PROTOCOL, First dose on Mon01/26/21 at 1500, Pre-op
flush per protocol, D/C Main IV fluid if appropriate
[facility] Medication administered onsite normal saline flush 0.9 % injection 3 mL [id number] 01/26/2021 02:00:00 PM EDT 3 mL Intravenous active 3 mL , Intravenous, Every 8 hours (scheduled), First dose on Mon01/26/21 at 1400, Pre-op
Rapid push positive pressure flushing shall be performed with a 10 cc normal saline syringe to check the PATENCY of a PIV site prior to any infusion therapy initiation unless resistance is met.
[facility] Medication administered onsite normal saline flush 0.9 % injection 3 mL [id number] 01/26/2021 02:00:00 PM EDT 3 mL Intravenous active 3 mL , Intravenous, Every 8 hours (scheduled), First dose on Mon01/26/21 at 1400, Pre-op
Rapid push positive pressure flushing shall be performed with a 10 cc normal saline syringe to check the PATENCY of a PIV site prior to any infusion therapy initiation unless resistance is met.
[facility] Medication administered onsite sodium chloride 0.9% (NS) infusion 7099-1808-95 01/26/2021 01:00:00 PM EDT 100 mL/h Intravenous active at 100 m L/hr, 100 mL/hr, Intravenous, Continuous, Starting on Mon01/26/21 at 1300, Pre-op
Start two hours prior to scheduled start time
[facility] Medication administered onsite Nitroglycerin 0.4 MG Sublingual Tablet n itroglycerin (NITROSTAT) SL tablet 0.4 mg nitroglycerin (NITROSTAT) SL tablet 0.4 mg 01/26/2021 12:04:00 P M EDT 0.4 mg Sublingual active 0.4 mg, S ublingual, Every 5 min PRN, chest pain, Starting on Mon01/26/21 at 1204, Post-op
May administer every 5 minutes for 3 doses and call cardio lab MD.
[facility] Medication administered onsite Acetaminophen 325 MG Oral Tablet acetaminophen (TYLENO L) 325 MG tablet 650 mg acetaminophen (TYLENOL) 325 MG tablet 650 mg 01/26/2021 12:04:00 PM EDT 650 mg Oral active 650 mg, Or al, Every 4 hours PRN, headaches, and non cardiac pain, Starting on Mon01/26/21 at 1204, Post-op
"Maximum dose of acetaminophen is 4,000 mg from all sources in 24 hours."
[facility] Medication administered onsite ondansetron (ZOFRAN) injection 4 mg [id number] 01/26/2021 12:00:0 0 PM EDT 4 mg Intravenous completed 4 mg, In travenous, Once, On Mon01/26/21 at 1200, For 1 dose [facility] Medication administered onsite iopamidol (ISOVUE-370) 76 % 12006 01/26/2021 10:47:22 AM EDT active As needed, Starting on Mon01/26/21 at 1047, Intra-Proc edure [facility] Medication administered onsite lidocaine 1 % injection [id number] 01/26/2021 10:29:38 AM EDT active As needed, Starting on Mon at 1029, Intra-Procedure [facility] Medication administered onsite fentaNYL Citrate (PF) (SUBLIMAZE) injection [id number] 01/26/2021 10:29:05 AM EDT active As neede d, Starting on Mon01/26/21 at 1029, Intra-Procedure [facility] Medication administered onsite 2 ML Midazolam 1 MG/ML Injection midazolam (VERSED) in jection midazolam (VERSED) injection 01/26/2021 10:28:57 AM EDT active As needed, Starting on Mon01/26/21 at 1028, Intra-Procedure [facility] Medication administered onsite clopidogrel 75 MG Oral Tablet clopidogrel (PLAVIX) 75 MG tablet clopidogrel (PLAVIX) 75 MG tablet 01/18/2021 12:00:00 AM EDT 75 mg Oral aborted Take 1 tablet (75 mg total) by mouth See Admin Instructions Please take four 75mg tabs of Plavix (300mg total) the night before the procedure. [facility] 75 mg 01/18/2021 12:00:00 AM EDT tablet 4 TAKE 4 TABLETS BY MOUTH THE NIGHT BEFORE PROCEDURE TAKE 4 TABLETS BY MOUTH THE NIGHT BEFORE PROCEDURE [facility] Labetalol hydrochloride 100 MG Oral Tablet labetalol ( NORMODYNE) 100 MG tablet labetalol (NORMODYNE) 100 MG tablet 01/13/2021 12:00:00 AM EDT active TAKE ONE TABLET BY MOUTH TWICE A DAY [facility] Labetalol hydrochloride 100 MG Oral Tablet LABETALOL [...] by mouth 2 (two) times a day [facility] 240 mcg/0.7 mL 12/29/2020 12:00:00 AM EDT syringe 0 INJECT DIRECTED INJECT DIRECTED SOLD: 12/29/2020 [facility] 20 mg 12/22/2020 12:00:00 AM EDT tablet 90 TAKE ONE TABLET BY MOUTH EVERY DAY TAKE ONE TABLET BY MOUTH EVERY DAY SOLD: 12/29/2020 [facility] Amylases 51295 UNT / Endopeptidases 6300 0 UNT / Lipase 54082 UNT Delayed Release Oral Capsule [Zenpep] Zenpep 23211-87971 units CPEP capsule Zenpep 66549-89039 units CPEP capsule 12/17/2020 12:00:00 AM EDT active TAKE THREE CAPSULES BY MOUTH THREE TIMES A DAY WITH MEALS AND 1 WITH SNACKS [facility] Digestive Enzymes (LIPASE CONCENTRATE-HP PO) drug or medicat ion 12/16/2020 12:00:00 AM EDT aborted [facility] 1,250 mcg (50,000 unit) 11/04/2020 12:00:00 AM [...] 08/18/2020 12:00:00 AM EDT ORAL completed MEDENT ([facility]) silver sulfadiazine 10 MG/ML Topical Cream [SSD] SILVER SULF ADIAZINE 08/16/2020 12:00:00 AM EDT cream 50 APPLY TO LEFT LOWER LEG D AILY FOR 10 - 14 DAYS APPLY TO LEFT LOWER LEG DAILY FOR 10 - 14 DAYS SOLD: 08/17/2020 [facility] silver sulfadiazine 10 MG/ML Topical Cream [Silvadene] Saeed dene 08/16/2020 12:00:00 AM EDT active M EDENT ([facility]) 10 mg 07/29/2020 12:00:00 AM [...] 07/29/2020 12:00:00 AM EDT ORAL completed MEDENT ([facility], ) Ciprofloxacin 250 MG Oral Tablet Ciprofloxacin HCL 07/29/2020 12:00 :00 AM EDT ORAL completed MEDENT ([facility], ) Furosemide 20 MG Oral Tablet furosemide (LASIX) 20 MG tablet furosemide (LASIX) 20 MG tablet 06/25/2020 12:00:00 AM EST 20 mg Oral activ e Take 1 tablet (20 mg total) by mouth daily as needed [facility] Labetalol hydrochloride 100 MG Oral Tablet labetalol ( NORMODYNE) 100 MG tablet labetalol (NORMODYNE) 100 MG tablet 06/25/2020 12:00:00 AM EST 100 mg Oral active Take 1 tablet (100 mg total) by mouth 2 (two) times a day [facility] Labetalol hydrochloride 100 MG Oral Tablet LABETALOL [...] 06/15/2020 12:00:00 AM EST completed [facility]ENT ([facility]) Medication administered onsite 1,000 mcg/mL [...] AM EST ORAL active MEDENT ([facility]) 10 mg 05/28/2020 12:00:00 AM EST tablet [...] Unspecified 05/25/2020 12:00:00 AM EST completed [facility]ENT ([facility], ) Medication administered onsite rivaroxaban 20 MG Oral Tablet [Xarelto] Xarelto 05/11/2020 12:00:0 0 AM EST ORAL active MEDENT ([facility]) 160-4.5 mcg/actuation 04/29/2020 12:00:00 AM EST HFA [...] y mouth 2 (two) times a day [facility] Furosemide 20 MG Oral Tablet furosemide (LASIX) 20 MG tablet furosemide (LASIX) 20 MG tablet 04/02/2020 12:00:00 AM EST 20 mg Oral activ e Take 1 tablet (20 mg total) by mouth as needed [facility] Chlorthalidone 25 MG Oral Tablet chlorthalidone (HYGRO TEN) 25 MG tablet chlorthalidone (HYGROTEN) 25 MG tablet 04/02/2020 12:00:00 AM EST 5 0 mg Oral active Take 2 tablets (50 mg tot al) by mouth daily [facility] Amlodipine 10 MG Oral Tablet amLODIPine (NORVASC) 10 M G tablet amLODIPine (NORVASC) 10 MG tablet 04/02/2020 12:00:00 AM EST 10 mg Oral aborted Take 1 tablet (10 mg total) by mouth At bedtime sliding scale [facility] Levothyroxine Sodium 0.075 MG Oral Table t levothyroxine (SYNTHROID, LEVOTHROID) 75 MCG tablet levothyroxine (SYNTHROID, LEVOTHROID) 75 MCG tablet 12:00:00 AM EST 75 ug Oral active Take 1 tablet (75 mcg total) by mouth daily [facility] Losartan Potassium 50 MG Oral Tablet losartan (COZAAR) 50 MG tablet losartan (COZAAR) 50 MG tablet 04/02/2020 12:00:00 AM EST 50 mg Oral active Take 1 tablet (50 mg total) by mouth daily [facility] 10 mg 03/25/2020 12:00:00 AM EST tablet [...] aborted Take 50 mg by mouth daily [facility] Amlodipine 10 MG Oral Tablet amLODIPine (NORVASC) 10 M G tablet amLODIPine (NORVASC) 10 MG tablet 03/25/2020 12:00:00 AM EST 10 mg Oral aborted Take 10 mg by mouth [facility] 75 mcg 03/20/2020 12:00:00 AM EST tablet [...] Oral aborted Take 75 mcg by mouth [facility] 50 mg 03/20/2020 12:00:00 AM EST tablet 90 TAKE ONE TABLET BY MOUTH EVERY DAY TAKE ONE TABLET BY MOUTH EVERY DAY SOLD: 12/22/2020 [facility] Amlodipine 2.5 MG Oral Tablet amLODIPine (NORVASC) 2.5 MG tablet amLODIPine (NORVASC) 2.5 MG tablet 03/20/2020 12:00:00 AM EST 2.5 mg Oral aborted Take 2.5 mg by mouth [facility] Levothyroxine Sodium 0.075 MG Oral Tablet Levothyroxine Sodi um 03/19/2020 12:00:00 AM EST ORAL active M EDENT ([facility]) Mupirocin 0.02 MG/MG Topical Ointment Mupirocin 2 % Mupiroci n 2 % 03/05/2020 12:00:00 AM EST 1.0 {application} active Mupirocin 2 % eCW1 ([facility]) Mupirocin 0.02 MG/MG Topical Ointment Mupirocin 2 % Mupiroci n 2 % 03/05/2020 12:00:00 AM EST 1.0 {application} active Mupirocin 2 % eCW1 ([facility]) Mupirocin 0.02 MG/MG Topical Ointment Mupirocin 2 % Mupiroci n 2 % 03/05/2020 12:00:00 AM EST 1.0 {application} active Mupirocin 2 % eCW1 ([facility]) Mupirocin 0.02 MG/MG Topical Ointment Mupirocin 2 % Mupiroci n 2 % 03/05/2020 12:00:00 AM EST 1.0 {application} active Mupirocin 2 % eCW1 ([facility]) Mupirocin 0.02 MG/MG Topical Ointment Mupirocin 2 % Mupiroci n 2 % 03/05/2020 12:00:00 AM EST 1.0 {application} active Mupirocin 2 % eCW1 ([facility]) Mupirocin 0.02 MG/MG Topical Ointment Mupirocin 2 % Mupiroci n 2 % 03/05/2020 12:00:00 AM EST 1.0 {application} active Mupirocin 2 % eCW1 ([facility]) Mupirocin 0.02 MG/MG Topical Ointment Mupirocin 2 % Mupiroci n 2 % 03/05/2020 12:00:00 AM EST 1.0 {application} active Mupirocin 2 % eCW1 ([facility]) Mupirocin 0.02 MG/MG Topical Ointment Mupirocin 2 % Mupiroci n 2 % 03/05/2020 12:00:00 AM EST 1.0 {application} active Mupirocin 2 % eCW1 ([facility]) Mupirocin 0.02 MG/MG Topical Ointment Mupirocin 2 % Mupiroci n 2 % 03/05/2020 12:00:00 AM EST 1.0 {application} active Mupirocin 2 % eCW1 ([facility]) Mupirocin 0.02 MG/MG Topical Ointment Mupirocin 2 % Mupiroci n 2 % 03/05/2020 12:00:00 AM EST 1.0 {application} active Mupirocin 2 % eCW1 ([facility]) Mupirocin 0.02 MG/MG Topical Ointment Mupirocin 2 % Mupiroci n 2 % 03/05/2020 12:00:00 AM EST 1.0 {application} active Mupirocin 2 % eCW1 ([facility]) Mupirocin 0.02 MG/MG Topical Ointment Mupirocin 2 % Mupiroci n 2 % 03/05/2020 12:00:00 AM EST 1.0 {application} active Mupirocin 2 % eCW1 ([facility]) Mupirocin 0.02 MG/MG Topical Ointment mupirocin (BACTR OBAN) 2 % ointment mupirocin (BACTROBAN) 2 % ointment 03/05/2020 12:00:00 AM EST active APPLY 1 APPLICATION THREE TIMES A DAY FO R 14 DAYS [facility] Mupirocin 0.02 MG/MG Topical Ointment Mupirocin 2 % Mupiroci n 2 % 03/05/2020 12:00:00 AM EST 1.0 {application} active Mupirocin 2 % eCW1 ([facility]) Mupirocin 0.02 MG/MG Topical Ointment Mupirocin 2 % Mupiroci n 2 % 03/05/2020 12:00:00 AM EST 1.0 {application} active Mupirocin 2 % eCW1 ([facility]) Mupirocin 0.02 MG/MG Topical Ointment Mupirocin 2 % Mupiroci n 2 % 03/05/2020 12:00:00 AM EST 1.0 {application} active Mupirocin 2 % eCW1 ([facility]) Mupirocin 0.02 MG/MG Topical Ointment Mupirocin 2 % Mupiroci n 2 % 03/05/2020 12:00:00 AM EST 1.0 {application} active Mupirocin 2 % eCW1 ([facility]) Mupirocin 0.02 MG/MG Topical Ointment Mupirocin 2 % Mupiroci n 2 % 03/05/2020 12:00:00 AM EST 1.0 {application} active Mupirocin 2 % eCW1 ([facility]) Mupirocin 0.02 MG/MG Topical Ointment Mupirocin 2 % Mupiroci n 2 % 03/05/2020 12:00:00 AM EST 1.0 {application} active Mupirocin 2 % eCW1 ([facility]) 2 % 03/05/2020 12:00:00 AM EST ointment 22 APPLY 1 APPLICATION THREE TIMES A DAY FOR 14 DAYS APPLY 1 APPLICATION THREE TIMES A DAY FOR 14 DAYS SOLD : 03/07/2020 [facility] Mupirocin 0.02 MG/MG Topical Ointment Mupirocin 2 % Mupiroci n 2 % 03/05/2020 12:00:00 AM EST 1.0 {application} active Mupirocin 2 % eCW1 ([facility]) doxycycline hyclate 100 MG Oral Capsule DOXYCYCLINE HYCLATE 03/03/2020 12:00:00 AM EST capsule 20 TAKE ONE CAPSULE BY MOUTH EV JUDIE 12 HOURS FOR 10 DAYS TAKE ONE CAPSULE BY MOUTH EVERY 12 HOURS FOR 10 DAYS SOLD: 03/03/2020 [facility] doxycycline hyclate 100 MG Oral Capsule Doxycycline Hy clate 100 MG Doxycycline Hyclate 100 MG 03/03/2020 12:00:00 AM EST 1.0 {capsule} suspended Doxycycline Hyclate 100 MG eCW1 ([facility]) doxycycline hyclate 100 MG Oral Capsule Doxycycline Hy clate 100 MG Doxycycline Hyclate 100 MG 03/03/2020 12:00:00 AM EST 1.0 {capsule} active Doxycycline Hyclate 100 MG eCW1 ([facility]) doxycycline hyclate 100 MG Oral Capsule Doxycycline Hy clate 100 MG Doxycycline Hyclate 100 MG 03/03/2020 12:00:00 AM EST 1.0 {capsule} active Doxycycline Hyclate 100 MG eCW1 ([facility]) doxycycline hyclate 100 MG Oral Capsule Doxycycline Hy clate 100 MG Doxycycline Hyclate 100 MG 03/03/2020 12:00:00 AM EST 1.0 {capsule} active Doxycycline Hyclate 100 MG eCW1 ([facility]) doxycycline hyclate 100 MG Oral Capsule Doxycycline Hy clate 100 MG Doxycycline Hyclate 100 MG 03/03/2020 12:00:00 AM EST 1.0 {capsule} active Doxycycline Hyclate 100 MG eCW1 ([facility]) 50 mcg 02/02/2020 12:00:00 AM EDT tablet 90 TAKE ONE TABLET BY MOUTH EVERY MORNING TAKE ONE TABLET BY MOUTH EVERY MORNING SOLD: 02/02/2020 [facility] 1,250 mcg (50,000 unit) 01/13/2020 12:00:00 AM [...] A WEEK SOLD: 02/02/2020 [facility] Ergocalciferol 36604 UNT Oral Capsule Vitamin D (Ergocalcife rol) 01/13/2020 12:00:00 AM EDT active M [facility] ([facility]) 1,250 mcg (50,000 unit) 01/13/2020 12:00:00 [...] BY MOUTH TWICE A DAY SOLD: 02/25/2020 [facility] rivaroxaban 20 MG Oral Tablet rivaroxaban (XARELTO) 20 MG TABS rivaroxaban (XARELTO) 20 MG TABS 10/06/2019 12:00:00 AM EDT 20 mg Oral aborted Take 1 tablet (20 mg total) by mouth daily [facility] 1,000 mcg/mL 08/27/2019 12:00:00 AM EDT solution 3 INJECT 1ML ONCE A MONTH INJECT 1ML ONCE A MONTH SOLD: 03/07/2020 [facility] Levothyroxine Sodium 0.05 MG Oral Tablet levothyroxine (SYNTHROID, LEVOTHROID) 50 MCG tablet levothyroxine (SYNTHROID, LEVOTHROID) 50 MCG tablet 12:00:00 AM EDT 1 {tbl} Oral aborted Take 1 tablet by mouth daily [facility] Clobetasol Propionate 0.5 MG/ML Topical Cream 0.05 % CLOBETA MICK PROPIONATE 08/05/2019 12:00:00 AM EDT cream 30 APPLY THIN LAYER TOPICALLY TO AFFECTED AREAS TWO TIMES A DAY NEEDED FOR FLARE UPS APPLY THIN LAYER TOPICALLY TO AFFECTED AREAS TWO TIMES A DAY NEEDED FOR FLARE UPS SOLD: 07/28/2020 [facility] Labetalol hydrochloride 100 MG Oral Tablet labetalol ( NORMODYNE) 100 MG tablet labetalol (NORMODYNE) 100 MG tablet 04/23/2019 12:00:00 AM EST 0.5 {tbl} Oral aborted Take 0.5 tablets by mouth 2 (two) times a day [facility] Losartan Potassium 50 MG Oral Tablet losartan (COZAAR) 50 MG tablet losartan (COZAAR) 50 MG tablet 02/22/2019 12:00:00 AM EDT 50 mg Oral aborted Take 50 mg by mouth daily [facility] rivaroxaban 20 MG Oral Tablet rivaroxaban (Xarelto) 20 MG TABS rivaroxaban (Xarelto) 20 MG TABS 20 mg Oral aborted Harsh e 20 mg by mouth daily [facility] Furosemide 40 MG Oral Tablet furosemide (LASIX) 40 MG tablet furosemide (LASIX) 40 MG tablet 20 mg Oral aborted Take 20 mg by mouth as needed [facility] Furosemide 20 MG Oral Tablet furosemide (LASIX) 20 MG tablet furosemide (LASIX) 20 MG tablet 20 mg Oral aborted Take 20 mg by mouth daily as needed [facility] Labetalol hydrochloride 100 MG Oral Tablet labetalol ( NORMODYNE) 100 MG tablet labetalol (NORMODYNE) 100 MG tablet 100 mg Oral ab orted Take 100 mg by mouth 2 (two) times a day [facility] Losartan Potassium 50 MG Oral Tablet losartan (COZAAR) 50 MG tablet losartan (COZAAR) 50 MG tablet 50 mg Oral aborted Ta ke 50 mg by mouth daily [facility] ferrous sulfate 325 MG Oral Tablet ferrous sulfate 325 (65 FE) MG tablet ferrous sulfate 325 (65 FE) MG tablet 325 mg Oral aborted Take 325 mg by mouth [facility] Insurance Providers Payer name Policy type / Coverage type Policy ID Covered constitution party ID Covered constitution party's relationship to finney Policy Finney Plan Information [place] [id number] Self 1 [id number] [place] Primary [id number] Self 1 [id number] Medicare - NGS Medicare Primary [id number] [id number] Self [id number] MEDICARE [id number] SP [id number] [place] Primary [id number] [id number] Self 13 [id number] [place] Primary [id number] Self [id number] [place] Primary [id number] [id number] Self 13 [id number] Medicare - NGS Medicare Primary [id number] Self [id number] [place] Primary [id number] 2.16.840.1.139615.3.227.99.806.2405.0 Self 13 [id number] [place] Primary [id number] Self [id number] [place] Primary [id number] 2.16.840.1.665960.3.227.99.806.2405.0 Self 13 [id number] [place] Primary [id number] 2.16.840.1.645988.3.227.99.806.2405.0 Self 13 [id number] Medicare - [place]GS Medicare Primary [id number] 2.16.840.1.218899.3.227.99.177.1932.0 Self [id number] [place] Primary [id number] 2.16.840.1.035896.3.227.99.806.2405.0 Self 13 [id number] [place] Primary [id number] 2.16.840.1.710568.3.227.99.806.2405.0 Self 13 [id number] [place] Primary [id number] 2.16.840.1.231612.3.227.99.806.2405.0 Self 13 [id number] [place] Medicare Primary [id number] 2.16.840.1.157649.3.227.99.806.2405.0 Self 13 [id number] [place] Primary [id number] 2.16.840.1.908987.3.227.99.806.2405.0 Self 13 [id number] Medicare - NGS Medicare Primary [id number] 2.16840.1.590705.3.227.99.177.1932.0 Self 13 [id number] [place] Primary [id number] 2.16.840.1.485393.3.227.99.806.2405.0 Self 13 [id number] [place] Primary [id number] 2.16.840.1.675913.3.227.99.806.2405.0 Self 13 [id number] [place] Medicare Primary [id number] 2.16840.1.422597.3.227.99.806.2405.0 Self 13 [id number] Medicare Part B [facility] [id number] 0 [id number] [place] Primary [id number] 2.16840.1.902104.3.227.99.806.2405.0 Self 13 [id number] [place] Primary [id number] 2.16840.1.848547.3.227.99.806.2405.0 Self 13 [id number] [place] Medicare Primary [id number] 2.16840.1.732605.3.227.99.806.2405.0 Self 13 [id number] [place] Medicare Primary [id number] 2.16840.1.620161.3.227.99.806.2405.0 Self 13 [id number] [place] Medicare Primary [id number] 2.16840.1.318173.3.227.99.806.2405.0 Self 13 [id number] [place] Medicare Primary [id number] 2.16840.1.309072.3.227.99.806.2405.0 Self 13 [id number] MEDICARE [id number] xxxxxxxxxxx [id number] MEDICARE [id number] [facility] [id number] [address] SUE A UNAVAILABLE [id number] UNAVAI LABLE Medicare - NGS Medicare Primary [id number] Self Medicare Part B [facility] [id number] 0 [id number] [place] Medicare Primary [id number]. 99.806.2405.0 Self [place] Medicare Primary [id number] 2.16840.1.495327.3.227.99.806.2405.0 Self 13 [id number] [place] Medicare Primary [id number] 2.16840.1.683159.3.227.99.806.2405.0 Self 13 [id number] Medicare [place] Medicare Primary [id number] 2.16840.1.293703.3.227.99.806.2405.0 Self 13 [id number] MEDICARE [id number] SP [id number] MEDICARE [id number] [place] [id number] [employer] (pr) Medigap Part B [id number] Self [id number] United [employer] [id number] 0 84 [id number] United Healthcare [id number] 0 84 [id number] [address] SUE UNAVAILABLE [id number] UN AVAILABLE [facility] Medigap Part B [id number] Self United Healthcare Medigap Part B [id number] Self [id number] [facility] 2 [id number] 1 [id number] United [employer] (pr) Medigap Part B [id number] 2.0.1.784350.3.227.99.991.88485.[id number] [facility] [id number] xxxxxxxxx [id number] C [id number] [facility] [id number] [facility] [id number] [place] [id number] UNITED [facility] [id number] SP [id number] [facility] [id number] SP [id number] [facility] Commercial F [id number] SELF [id number] Medicare C [id number] SELF [id number] [facility] Jurisdiction A [facility] C [id number] SELF [id number] [place] Medicare Primary [id number] 2.0.1.556981.3.227.99.991.95433.0 Self 1 [id number] [place] Medicare Primary [id number] 2.0.1.322485.3.227.99.991.43561.0 Self 1 [id number] [place] Medicare Primary [id number] Self [id number] Medicare [place] Medicare Primary [id number] 2.16.840.1.735053.3.227.99.991.46842.0 Self 1 [id number] [place] Medicare Primary [id number] Self [id number] [facility] Part B [id number] Self [id number] Medicare [place] Medicare Primary [id number] 2.16.840.1.875541.3.227.99.991.02538.0 Self [id number] Medicare [place] Medicare Primary [id number] 2.16.840.1.286989.3.227.99.991.20524.0 Self 1 [id number] Medicare [place] Medicare Primary [id number] 2.16.840.1.107380.3.227.99.991.70107.0 Self 7 [id number] Medicare Part B [facility] [id number] 0 [id number] [facility] [id number] SP [id number] INSURANCE COVID-19 COVID [facility] C OVID INSURANCE COVID-19 [id number] xxxxx [id number] INSURANCE COVID-19 COVID [facility] [address] [facility] PI PI [place] PART B C [id number] S [id number] MEDICARE C [id number] S [id number] Medicare [place] Medicare Primary [id number] 2.16.840.1.849330.3.227.99.806.2405.0 Self [id number] Medicare [place] Medicare Primary [id number] 2.16.840.1.520051.3.227.99.806.2405.0 Self [id number] Medicare [place] Medicare Primary [id number] 2.16.840.1.734018.3.227.99.806.2405.0 Self [id number] Medicare [place] Medicare Primary [id number] 2.16.840.1.405613.3.227.99.806.2405.0 Self [id number] [place] Medicare Primary [id number] Self [id number] [employer] + Claims [facility] Part B [id number] Family Dependent [id number] [employer] [id number] Self [id number] [facility] Part B [id number] Self [id number] Medicare [place] Medicare Primary [id number] Self [id number] [facility] PART B C [id number] S [id number] NGS MEDICARE [place] O [id number] S [id number] [facility] O [id number] S [id number] MEDICARE C [id number] S [id number] SELF PAY ONLY [id number] SP [id number] United [employer] Commercial [id number] Self [employer] [id number] Self MEDICARE [id number] SP [id number] [facility] [id number] SP [id number] [facility] -[facility]/P [id number] 18 [id number] MEDICARE [id number] SP [id number] MEDICARE -O/P [id number] 18 [id number] [employer] [facility] Commercial [id number] Self Medicare [facility] Medicare Primary [id number] Self [facility] (pr) Medigap Part B [id number] Self Medicare [facility] Medicare Primary [id number] Self [facility]ARE [id number] SP [id number] [facility] [id number] SP [id number] SELF PAY 2 UNAVAILABLE 1 UNAVAILA BLE [facility] PPO 2 [id number] 1 [id number] [facility] PPO 2 [id number] 1 [id number] [facility] [employer] C [id number] S [id number] [place]/[facility] Medicare Primary [id number] [id number] Self [id number] [facility] Commercial [id number] [id number] .[id number] Self [id number] MEDICARE PI PI Problems, Conditions, and Diagnoses Code Display Name Description Problem Type Effective Dates Data Source(s) I48.91 Unspecified atrial fibrillation Unspecified atri al fibrillation Diagnosis 02/02/2021 07:04:08 AM EDT [facility] R62.7 Adult failure to thrive Adult failure to thrive Diagno sis 01/26/2021 06:49:00 AM EDT [facility] I10 Essential (primary) hypertension Essential (primary) h ypertension Diagnosis 01/26/2021 06:49:00 AM EDT [facility] I34.0 Nonrheumatic mitral (valve) insufficienc y Nonrheumatic mitral (valve) insufficienc Diagnosis 01/26/2021 06:49:00 AM EDT [facility] E78.5 Hyperlipidemia, unspecified Hyperlipidemia, unspecifie d Diagnosis 01/26/2021 06:49:00 AM EDT [facility] I25.10 Atherosclerotic heart diseas e of [place] coronary artery without angina pectoris Atherosclerotic heart disease of [place] Diagnosis 01/26/2021 06:49:00 AM EDT [facility] I35.0 Nonrheumatic aortic (valve) stenosis Nonrheumati c aortic (valve) stenosis Diagnosis 01/26/2021 06:49:00 AM EDT [facility] 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 Acute on chronic combined systolic (aracelis Diagnosis 01/26/2021 06:49:00 AM EDT [facility] R60.9 Edema, unspecified Edema, unspecified Diagnosis 10:29:41 AM EST [facility] 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 Acute on chronic combined systolic (aracelis estive) and diastolic (congestive) heart failure [id number] 01/21/2021 12:00:00 AM EDT [facility] I34.0 Nonrheumatic mitral valve regurgitation Nonrheumatic mitral valve regurgitation [id number] 01/18/2021 12:00:00 AM EDT [facility] J45.40 Uncomplicated moderate persistent asthma Uncomplicated moderate persistent asthma Problem 11/30/2020 12:00:00 AM EDT [facility] ([facility], ) R05 Cough Cough Problem 11/30/2020 12:00:00 AM ED T [facility] ([facility], ) T14.8XXA [id number] Bruising Problem 10/05/2020 12:00:00 AM ED T eCW1 ([facility]) L57.0 [id number] Actinic keratosis Problem 10/05/2020 12:00:0 0 AM EDT eCW1 ([facility]) L81.4 [id number] Lentigines Problem 10/05/2020 12:00:00 AM ED T eCW1 ([facility]) L82.1 [id number] Seborrheic keratoses Problem 10/05/2020 12:0 0:00 AM EDT eCW1 ([facility]) S81.802A [id number] Wound of left lower extremity, initial en counter Problem 10/05/2020 12:00:00 AM EDT eCW1 ([facility]) L70.0 [id number] [place] Problem 10/05/2020 12:00:00 AM ED T eCW1 ([facility]) D22.5 93212535 Nevus of back Problem 10/05/2020 12:00:00 AM EDT eCW1 ([facility]) L72.0 298657512 Milia Problem 10/05/2020 12:00:00 AM ED T eCW1 ([facility]) T14.8XXA 247355115 Open wound Problem 08/25/2020 12:00:00 AM ED T eCW1 ([facility]) S80.12XA [id number] Hematoma of left lower leg Problem 08/25/2020 12:00:00 AM EDT eCW1 ([facility]) S81.812A 270097886 Noninfected skin tear of left leg Problem 08/25/2020 12:00:00 AM EDT eCW1 ([facility]) L97.821 [id number] Non-pressure chronic ulcer of other part of left lower leg limited to breakdown of skin Problem 08/25/2020 12:00:00 AM EDT eCW1 ([facility]) L97.822 [id number] Non-pressure chronic ulcer of other part of left lower leg with fat layer exposed Problem 08/25/2020 12:00:00 AM EDT eCW1 ([facility]) C44.629 410269961 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 Problem 06/09/2020 12:00:00 AM EST eCW1 ([facility]) C44.722 [id number] 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 06/09/2020 12:00:00 AM EST eCW1 ([facility]) C44.329 [id number] Squamous cell carcinoma of forehead Probl em 05/07/2020 12:00:00 AM EST eCW1 ([facility]) Surgeries/Procedures Procedure Description Date Indications Data Source(s) OFFICE OUTPATIENT VISIT 15 MINUTES 02/22/2021 12:00:00 AM EDT [facility] ([facility]) OFFICE OUTPATIENT VISIT 15 MINUTES 02/11/2021 12:00:00 AM EDT [facility] ([facility]) OFFICE OUTPATIENT VISIT 25 MINUTES 02/04/2021 12:00:00 AM EDT [facility] ([facility]) ECG ROUTINE ECG W/LEAST 12 LDS W/I&R <td>POCT AMB EKG</td><td>Routine</td><td>02/02/2021 8:02 AM EDT</td><td> Atrial fibrillation</td><td> </td> 02/02/2021 08:02:00 AM EDT Atrial fibrillation [facility] Atrial fibrillation OFFICE OUTPATIENT VISIT 25 MINUTES 01/28/2021 12:00:00 AM EDT [facility] ([facility]) RADEX SPINE ENTIRE SURVEY STD ANTEROPOST&LAT <td>CARDI AC CATHETERIZATION</td><td>Routine</td><td>01/26/2021 10:50 AM EDT</td><td> Aortic valve stenosis, etiology of cardiac valve disease unspecified Acute on chronic combined sy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 Coronary artery disease involving [place] coronary artery of [place] heart without angina pectoris Hyperlipidemia, unspecified hyperlipidemia type Atrial fibrillation Nonrheumatic mitral valve regurgitation Essential hypertension Failure to thrive in adult</td><td> </td> 01/26/2021 10:50:33 AM EDT Failure to thrive in adultEssential hype rtensionNonrheumatic mitral valve regurgitationAtrial fibrillationHyperlipidemia, unspecified hyperlipidemia type Coronary artery disease involving [place] coronary artery of [place] heart without angina pectorisAcute on chronic combined sy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Aortic valve stenosis, etiology of cardiac valve disease unspecified [facility] Failure to thrive in adult Essential hypertension Nonrheumatic mitral valve regurgitation Atrial fibrillation Hyperlipidemia, unspecified hyperlipidem ia type Coronary artery disease involving [place] coronary artery of [place] heart without angina pectoris Acute on chronic combined systolic (aracelis estive) and diastolic (congestive) heart failure Aortic valve stenosis, etiology of cardi ac valve disease unspecified POCT POTASSIUM <td>POCT POTASSIUM</td><td>R outine</td><td>01/26/2021 9:22 AM EDT</td><td></td><td> </td> 01/26/2021 09:22:00 AM EDT [facility] ECG ROUTINE ECG W/LEAST 12 LDS TRCG ONLY W/O I&R <td>E CG 12- LEAD</td><td>Routine</td><td>01/26/2021 7:45 AM EDT</td><td></td><td></td> 01/26/2021 07:45:03 AM EDT [facility] POCT AMB EKG <td>POCT AMB EKG</td><td>Rou rd</td><td>12/21/2020 9:57 AM EDT</td><td> Atrial fibrillation</td><td> </td> 12/21/2020 09:57:00 AM EDT Atrial fibrillation [facility] Atrial fibrillation OFFICE OUTPATIENT VISIT 15 MINUTES 12/02/2020 12:00:00 AM EDT [facility] ([facility]) Spirometry 11/30/2020 12:00:00 AM EDT [facility] ([facility], ) OFFICE OUTPATIENT VISIT 25 MINUTES 11/30/2020 12:00:00 AM EDT [facility] ([facility], ) OFFICE OUTPATIENT VISIT 25 MINUTES 11/12/2020 12:00:00 AM EDT [facility] ([facility]) Kirkpatrick Cre W/I 7 Days Of DC, Comm W/I 2 Dys 10/20/2020 12:00:00 AM [facility] FINE NEEDLE ASPIRATION W/O IMAGING GUIDANCE 10/20/2020 12:00:00 AM EDT eCW1 ([facility]) FINE NEEDLE ASPIRATION W/O IMAGING GUIDANCE 10/13/2020 12:00:00 AM EDT eCW1 ([facility]) BLOOD COUNT COMPLETE AUTO&AUTO DIFRNTL WBC COUNT <td>C BC AND DIFFERENTIAL</td><td>Routine</td><td>10/12/2020</td><td></td><td> </td> 10/12/2020 12:00:00 AM EDT [facility] HEPATIC FUNCTION PANEL <td>HEPATIC FUNCTION PANEL</td><td>Routine</td><td>10/11/2020</td><td></td><td> </td> 10/11/2020 12:00:00 AM EDT [facility] BASIC METABOLIC PANEL CALCIUM TOTAL <td>BASIC METABOLI C PANEL</td><td>Routine</td><td>10/11/2020</td><td></td><td> </td> 10/11/2020 12:00:00 AM EDT [facility] TROPONIN QUANTITATIVE <td>TROPONIN I</td><td>Routine</td><td>10/10/2020</td><td></td><td> </td> 10/10/2020 12:00:00 AM EDT [facility] FINE NEEDLE ASPIRATION W/O IMAGING GUIDANCE 10/06/2020 12:00:00 AM EDT eCW1 ([facility]) FINE NEEDLE ASPIRATION W/O IMAGING GUIDANCE 09/29/2020 12:00:00 AM EDT eCW1 ([facility]) FINE NEEDLE ASPIRATION W/O IMAGING GUIDANCE 09/22/2020 12:00:00 AM EDT eCW1 ([facility]) FINE NEEDLE ASPIRATION W/O IMAGING GUIDANCE 09/15/2020 12:00:00 AM EDT eCW1 ([facility]) OFFICE OUTPATIENT VISIT 25 MINUTES 09/08/2020 12:00:00 AM EDT [facility] ([facility]) Medication: 4% Lidocaine topical cream (Anecream) 30 gm 09/07/2020 12:00:00 AM EDT eCW1 ([facility]) FINE NEEDLE ASPIRATION W/O IMAGING GUIDANCE 08/25/2020 12:00:00 AM EDT eCW1 ([facility]) Medication: 2% Lidocaine intradermal 08/25/2020 12:00: 00 AM EDT eCW1 ([facility]) OFFICE OUTPATIENT VISIT 15 MINUTES 08/18/2020 12:00:00 AM EDT [facility] ([facility]) ECG ROUTINE ECG W/LEAST 12 LDS W/I&R <td>POCT AMB EKG</td><td>Routine</td><td>06/25/2020 11:24 AM EST</td><td> Atrial fibrillation</td><td> </td> 06/25/2020 04:24:00 PM EST Atrial fibrillation [facility] Atrial fibrillation Staple Removal 06/22/2020 12:00:00 AM EST eCW1 ([facility]) OFFICE OUTPATIENT VISIT 15 MINUTES 06/11/2020 12:00:00 AM EST [facility] ([facility]) Med: Derm Lidocaine with Epinephrine Inj ection 1% with 2 ml sodium bicarbonate Intradermally to marked areas 06/09/2020 12:00:00 AM EST eCW1 ([facility]) Suture Removal 05/14/2020 12:00:00 AM EST eCW1 ([facility]) ASTHMA SYMPTOMS EVALUATED 05/07/2020 12:00:00 AM EST eCW1 ([facility]) POCT AMB EKG <td>POCT AMB EKG</td><td>Rou rd</td><td>03/30/2020 7:25 AM EST</td><td> Atrial fibrillation</td><td> </td> 03/30/2020 12:25:00 PM EST Atrial fibrillation [facility] Atrial fibrillation Electrocardiogram Complete 03/19/2020 12:00:00 [facility] Electro[facility]ogram Complete 02/17/2020 12:00:00 AM EDT [facility] ([facility]) Results ID Date Data Source [id number] 02/18/2021 10:45:00 AM EDT [facility] Name Value Range Interpretation Code Description Data Laura rce(s) Supporting Document(s) SARS-CoV-2 (COVID-19) RNA [Presence] in Respiratory specimen by JUAN A with probe detection Not Detected [facility] This lab was ordered by [facility] and reported by [employer] ID Date Data Source [id number] 02/18/2021 10:45:00 AM EDT [facility] Name Value Range Interpretation Code Description Data Laura rce(s) Supporting Document(s) Coronavirus 2019 Nasopharygeal Laboratory test result [facility] ([facility]) ASSAY INFORMATION: Real Time RT-PCR or T MA. Both RT-PCR and TMA are nucleic acid amplification tests (NAAT) which are molecular testing modalities and recommended by the CDC for passenger travel. Testing and International Air Travel, cdc.gov/coronavirus/2019-ncov/travelers/dmermly-lej-dcszlm.html 06/18/2020 NOTE: The COVID-19 assay is under Emergency Use Authorization (EUA) by the U.S. Food and Drug Administration. [employer] and [facility] are designated as high complexity laboratories by the Clinical Laboratory Improvement Amendments of 1988 (CLIA) and are qualified to perform this test. Not Detected ID Date Data Source [id number] 01/26/2021 10:56:23 AM EDT [facility] Name Value Range Interpretation Code Description Data Laura rce(s) Supporting Document(s) &PDF [facility] WQMIAf9qRcOMYeDa68/RZPfaSBCcq2ZiRPkmTGa1LBzaPKUuL2CgzDxxXPcXWGSrC02QADMmRMIxXRzg waW NcN3thtPRobrBNy5Coh2JwsGwauxcTZpHfFq9QKgXwFX8ufi2HKNIbEV7nkz2DLBV3RM6PoLh1TMLbZ0 YoXUNlIXXmp3YgMW3MFC7otWjbQxC9El3+SBkeDMT1miMvgS8VJIAkOVxx47FYey/A/X0K4EYmNOyd1r gUBtlcsL7hIFKGvY5zTQq9qDuYTFA+zhGzZ7rX9ey4 ZENQes0MiuQpoB7hzHhHFvI//bN9q5IkSHN/u/bIVn63fYR//V7rKABtc8sUzcPr+OyZqaOTZ4APival 1CRT9hn0XrdUhffq0uNF4FqmH1JEuh+e/wyGm9sv34vYnegl29Xf6tW0FaVzOQq9kXU9tAs4TU4/pbSf i2NSu3gl14uP1TEU5wWozEyZwbe8iaBopxpGU7VkEu n8TQ5/LodBUg6/L4a+30bW5PErpYxPME/DQpO0P242TyoWxeAH5mndC36G/wjD3mU3ogi0w26ryBu3R8 84x2T2o++h16Czri4u56VG1PWZMU7dRGhNKpJrE/S2gzgyHYRiKGf9KaSOHTyjUxLXfAtepnvenb4sEc 5huN5i9DFb6kblUEda06UDvs8U5U/MP41ql7YMnLdR xqTN1lyQest6cTyTxxhClgftCCb2oL+5O8aCKlONjqeIzSoJ1QzuKteMhP4+oRzSRzesIlLCWfLS8dW1 bYjDZEuSSiI+sroka5v+v54fqpkN1v4WYF6OVTjRXcjmn2fEY7Bu4MJRJvUXEp6msEvZl2jeQ7CGtNyW Edgar+Cvx8/SgVpKsrnK6qxRMqIHOQHdHJG4WK8mQpC0 [file] KtHo3UAuCqGVRJEpJvDP6QALv= ID Date Data Source [id number] 01/26/2021 09:31:24 AM EDT [facility] Name Value Range Interpretation Code Description Data Laura rce(s) Supporting Document(s) POC POTASSIUM 5.2 MMOL/L (3.6-5.2) [facility] PERFORMED BY [facility] CLINICAL STAFF ID Date Data Source [id number] 01/26/2021 08:51:41 AM EDT [facility] Name Value Range Interpretation Code Description Data Laura rce(s) Supporting Document(s) EKG [facility] FXPWGp1nVjWBCoCxf1IdTfSbJNNrAL6uxoe6F5A5yVYaV7JqfBVkd1wvP2XpA7MiWVXkECQDBK6ZlWRa jb2 [file] Ep0Ca703LQQvVYOQYhw+KwmebWBtoQucRUAHFYWnULRTRSGNQ8X= ID Date Data Source [id number] 01/22/2021 10:05:00 AM EDT [facility] ([facility]) Name Value Range Interpretation Code Description Data Laura rce(s) Supporting Document(s) Coronavirus 2019 [facility] Laboratory test result [facility]) ASSAY INFORMATION: Real Time RT-PCR NOTE: The COVID-19 assay has been cleared by the U.S. Food and Drug Administration under the Emergency Use Authorization (EUA). [employer] and [employer] are designated as high complexity laboratories by the Clinical Laboratory Improvement Amendments of 1988(CLIA) and are qualified to perform this test. Not Detected ID Date Data Source [id number] 01/22/2021 10:05:00 AM EDT [facility] Name Value Range Interpretation Code Description Data Laura rce(s) Supporting Document(s) SARS-CoV-2 (COVID-19) RNA [Presence] in Respiratory specimen by JUAN A with probe detection Not Detected [facility] This lab was ordered by [facility] and reported by [employer]. ID Date Data Source [id number] 12/21/2020 11:45:39 AM EDT [facility] Name Value Range Interpretation Code Description Data Laura rce(s) Supporting Document(s) &PDF [facility] OVXXJa8bZqCHDpHl01/OLWthEHSyc9NuNJnaKUd0QYbkUGPyA6StlDzyTZvIJBQdQ01QFZGuQVFhVQpv waW [file] inpatient pharmacist/m88S18kkn7GhlAr+Lmfh+fLq6/nF8+u66GL/IL+ [file] DQogICAgICAgICAgICAgICAgICAgICAgICAgICAgIC AgICAgICAgICAgICAgICAgICAgICAgICAgICAgICAgICAgICAgICAgICAgICAgICAgICAgICAgICAgIC AgICAgICAgICAgDQogICAgICAgICAgICAgICAgICAgICAgICAgICAgICAgICAgICAgICAgICAgICAgIC AgICAgICAgICAgICAgICAgICAgICAgICAgICAgICAg ICAgICAgICAgICAgICAgICAgICAgDQogICAgICAgICAgICAgICAgICAgICAgICAgICAgICAgICAgICAg ICAgICAgICAgICAgICAgICAgICAgICAgICAgICAgICAgICAgICAgICAgICAgICAgICAgICAgICAgICAg ICAgDQogICAgICAgICAgICAgICAgICAgICAgICAgIC AgICAgICAgICAgICAgICAgICAgICAgICAgICAgICAgICAgICAgICAgICAgICAgICAgICAgICAgICAgIC AgICAgICAgICAgICAgDQogICAgICAgICAgICAgICAgICAgICAgICAgICAgICAgICAgICAgICAgICAgIC AgICAgICAgICAgICAgICAgICAgICAgICAgICAgICAg ICAgICAgICAgICAgICAgICAgICAgICAgDQogICAgICAgICAgICAgICAgICAgICAgICAgICAgICAgICAg ICAgICAgICAgICAgICAgICAgICAgICAgICAgICAgICAgICAgICAgICAgICAgICAgICAgICAgICAgICAg ICAgICAgDQogICAgICAgICAgICAgICAgICAgICAgIC AgICAgICAgICAgICAgICAgICAgICAgICAgICAgICAgICAgICAgICAgICAgICAgICAgICAgICAgICAgIC AgICAgICAgICAgICAgICAgDQogICAgICAgICAgICAgICAgICAgICAgICAgICAgICAgICAgICAgICAgIC AgICAgICAgICAgICAgICAgICAgICAgICAgICAgICAg ICAgICAgICAgICAgICAgICAgICAgICAgICAgDQogICAgICAgICAgICAgICAgICAgICAgICAgICAgICAg ICAgICAgICAgICAgICAgICAgICAgICAgICAgICAgICAgICAgICAgICAgICAgICAgICAgICAgICAgICAg ICAgICAgICAgDQogICAgICAgICAgICAgICAgICAgIC AgICAgICAgICAgICAgICAgICAgICAgICAgICAgICAgICAgICAgICAgICAgICAgICAgICAgICAgICAgIC AgRRLtDFXwHUBaKFOyOKRvNBDuQZf2O0btIDVeJTCsBQ8vUDb9Gt4+UDyZUwTmJYI6fbCtrH3XZV7qx2 MyRMcsYPIqi9PvELn0ML5KQWEkARjgPA9WMGrqvy6M EPYqJERybGODu2lkZjPcXLH0NCGqJsviZW6FCZHpK0kqngEuRRUwVZQXQBaxODELFJflQYWXNT9YRsAi F8OdcC56HMBEOp5+ZBhyqfKyRieJGrElJVLro9TjBYq8WQ2PEYVdZVxuQW5SDZFynN7mWSqpCN7NOtDz CBKpHWNMErEqG12emAAzTLm5Q0BcAfQbGCPqZxxzAE MgPDwvTmFtZXMgWyBdDQogID4+ID4+SRalVK6SNJymduTyEFWeLy3WQAMeIBO9BZLhqDWvYaaxVYCAIC mqRJ1TbXDfOAQ0aK1vZThhZPFzFUPoB5vGHqAbbPkyMX13tIrbkwAazDKtNCv+Zd6YXT1jy0VpVOv9ks TiDInaANHiLXinOQFmFEIgDFSuYZO0JTD2NKQWLbSe ZCCaQFYzSZniRSPlQQUscm8TIJRtHAQtSyZqScGsGJFsEPPlRCuuPREnAKK0FiQ2TRQmACPcTV0UUrUv OCOnFFCaIQrnIHGbCERtyj4IFCAeVXRuFnf6RyXiJEXdWQRqKOktAHBkSWL3BVw5PSKfURAaGS8JCjEy FNMoXTh9ZAAoUTOgSEDrcy0XMMUtBFVuBQQ0QNAyOP MsJIQxJTfeNLNaZEPqZGpyLRGnFKRzPA8GAmHtREOvRZOeBxttHAMfXPWwus0BHZOuYTPjLAIcPuPaKT RiVRMtSCfvLKBfBUYbPHS9MEQcKFSwYA3LNzPrDSQkQDW7EXnuOVTuGVQudi4JNKBmWDAiMpO6XdDfCK LcMZVzJBwbMBMeNOEzSNo0JBEgIINaTB8APfJaIMWf FPLtNqZxLMKtRUMdaa3UCHUqEXKmQQJkUAOdMMVfZYYtAPkjXPWvZKN1OhH8ZPJfUBEwRB4JIkNtQSCc YQF4NXEcUWQbVRBkgq5PEUUoGDCxNQR7IBFeWJUlYBXjVYdyQWJlGNU0FSY2QCPyEGQaTG7IWvGoMAWp CPH7EUjsIMHjBGDarc4TOGElOQPjIvY7QCRySJZyXL GhCNtvSRLhGNR4Zyx9MBEdNFMpVJ0HZyFfWLCyZZM9ULDeOYUoBCUhgh6DRIDgVPSmAaTpQcPeTWYqZA SuHJmdXSHqZVN5XtG9VKLrBBXjFV4BJpZnOVOcDZn6BDRsWLUlESDgst0YQREgEUVoJRJtKUQxLYSuZJ KvNJwbYJEwCMT2FRu9NQFtSITgNN7MMsBsSPnsERRS Han9BBgvU7n9LGUbRI9UZ6Hoy8GeBhIsIFMVGEalMR4avhNfDNXuGd2VM0uLPoj7JGb8RTOtE2Z2IIGa DYKnAdD9Zrv6YTc9XnxlK0CbEJ8nWDrtQEKsWeW0NpYyQTNkBIXhYSffVXf8DksxMBZzElQnTlKzYI0D Fh3EYaR5RVP9hYLkLs9NAEw5JdYIEoSlJK2FECk= ID Date Data Source [id number] 11/30/2020 09:16:00 AM EDT [facility] ([facility]) Name Value Range Interpretation Code Description Data Laura rce(s) Supporting Document(s) PDFReport Laboratory test result [facility] FVC-Pred 1.76 L [facility] ([facility]) FVC-%Pred-Pre 75 L [facility] ([facility]) FVC-Pre 1.32 L [facility] ([facility]) Fev1-Pred 1.28 L [facility] ([facility]) Fev1-Pre 0.90 L [facility] ([facility]) FVC-LLN 1.21 L [facility] ([facility]) Fev1-%Pred-Pre 70 L [facility] ([facility]) Fev1-LLN 0.81 L [facility] ([facility]) Fev6-Pred 1.64 L [facility] ([facility]) Fev6-Pre 1.32 L [facility] ([facility]) Fev6-%Pred-Pre 80 L [facility] ([facility]) Jut2bhn-Zlod 74 % [facility]) Fev6-LLN 1.10 L [facility] ([facility]) Xwt9nws-Tyg 68 % [facility]) Kfa7pax-WBB 64 % [facility]) Pbc5jro-%Pred-Pre 92 % [facility] ([facility]) Gkv2tbc-Fqv 100 % [facility] ([facility]) Xmm2nht-Mxwn 93 % [facility]) Tgr3izo-%Pred-Pre 107 % [facility] ([facility]) FEFMax-Pred 3.68 L/E/sec [facility] ([facility]) FEFMax-Pre 1.60 L/E/sec [facility] ([facility]) FEFMax-LLN 2.32 L/E/sec [facility] ([facility]) FEFMax-%Pred-Pre 43 L/E/sec [facility] ([facility]) Efh9624-Lrqb 0.98 L/E/sec [facility] ([facility]) Gcq8203-Onx 0.56 L/E/sec [facility] ([facility]) ExpTime-Pre 7.99 sec [facility]) Hwr0563-%Pred-Pre 57 L/E/sec [facility] ([facility]) Ehj9643-CNM -0.01 L/E/sec [facility] ([facility]) Qdr2sss5-%Pred-Pre 87 % [facility] ([facility]) Mns6rde5-Umap 77 % [facility] ([facility]) Gqv2qam7-Usd 68 % [facility]) Jcy2eqz6-PCH 69 % [facility]) ID Date Data Source [id number] 11/17/2020 08:45:00 AM EDT [facility] Name Value Range Interpretation Code Description Data Laura rce(s) Supporting Document(s) [facility] Up [facility] VDUIZf3jYcYJQuUcLVQaLkfJCCepTWdcHSWiM5C4ZLriPn0WGXqyqlQtKNIxAf9+NNQpOG6gpz1cCRCy gMy [file] LINE UP MACHINE OPERATOR/2GIR9umknZdxNQhyLmFXfMClxP5gWcX4a9YDVso+bMpbA+oULRIsedOvmcXwrWMBEcnZFLuSkwLKz [file] Fm+Tioo6lgT+hu9X/N06SURBncZcAGNuiCX2umZxEIg3pcd/commercial lines account executive/rRsdp/CXUptAaGPoIL3B2wHsBdew 0JRIzXdwW28wJn8Csq/8rYEvMSFMMiyCEpkA/X/N1fPqselJDhmvva3N9kOY5j+AC5GAl6tN15aZXF16 VpGLs7Z+/l2ttNm+psL1ZVJYl5q70Cxj/zKRHNS/2S WhvnwaS5It/owmodVoWaB6qDV+CZ4fgD/e8J+O2MTpmcPoCZCyIB6V+BCLrvC3Va8KD34jkSTz0ycc6s m/G1iHGLeE06zSrH5i7EOmlFqzhO8qOJ5mhqUeXF/eyjTJq3tU+STfI+L4ne2tcPsiFLcxyjLY9d9+x2 0oapQ11VqaVoqwjikqnBfwgTKxst2llnx9Wxj05daB r0lGNzsdeDYkjncs6pfBHfJXt6QtWOs+pIYlEn0032iAHHLXOUnxH9PmmOY10y1bRe7dq4Gsahu++Jese [file] aL0l5ezxJq0P0/Tomás+msV0vr1boAAuFjt6unMEfcROUHUkMksDcz5HNnnSPzmk7G0xZMlsqFH3i2s21z [file] 7Y8BW7LJpf/as6e4QChYiTJQLJnWmlQcEv0HyIIDF3kOh5nmO/Its1GU91zJsjtGjj+Ym7JkL+director radio news+tJ [file] qLLua9iI6dyn1kLwh7O6PNk+SOLAR APPLICATIONS DEVELOPMENT ENGINEER+hlZFkH+eKV4Eyr+RcBcszQrkarqaLEpj0+oRtrBGJIoxNCl5SqE9+ [file] n938Y4i9xbjJY4jcn6hFuNbC70Siyj0IQlJe4E+Mraía [file] M14pGw5100t0e2ZnDo66GS2rZ1WL8nq65S6on21uSg c1OjBnls/P8HyRurSjMZux+yCq1EiLXpQs1xbJ6ul+BJqdTVUyZjOr+TCbsAWcP+pfcZJaBVkZXza54T yxG3vgbHoz/z1SVL93eXC3Uo8Uz0FV71jrW4tZ/CG4duKq7oB2epS2L+fTQGq+EolxM46Q5UgYiGXbsp QIwNBf5VX+H4Jk66M/6L7Gp3KuFprehW3GH10hlfsk 6Bs+HE2yYmukrHdDyZ6JpBRoFiFQeZpRIJmRn6/cIpJh6zsDkSZDBntN7w77+SKnYbVUyKK8PQrxjL9e BAV90QjzGbcBcUR93gAC1o/6lmtKVCTZ+IBAZLYm/xDogv+brnIEXyoQLqDcQCY2KiSJ3e8jZrQepJX7 ujHRa+sap senior [file] xktrSNXwX/3gpmUk+NXmzBMMtK7qoXYIczdBGorVAF5V+jU9WYvHqFxH+gonzález+MClI++VbfKsLT8lfCYa [file] INVESTMENT FUND MANAGER+Zwq7MKKGTT2dLFfhshOk5xIGfxn1AItxQbuQyu [file] xjMLeFm11is3tjxJwCK5dZ06GpYplKWomKsuukgBymNz2BL+cr7oDeUi8irqppo+Application Engineer/fBuJPnq/2DyZ 7boIEkOs572Qg4KWJtUsPjE0dTmjMWbYggGkLIQtjBKL7aCxlPGFhYCcTAVErmBLfwN+RLXL7jycqcOS bC5DT1TkBTV6ohOip9+K/LGTJah+PLmB6m7z2GOHjP /BpulY38+HkkX9HmxQIbROprPdGi7e5/xuGTrJFKXuikuSl4sXF53/lG4TWXgoTATW2o9/+f12DrLU5N YHfGPGnggKBMNKDkkYLNqZsGKXg9lUW0lYx/zBy9J+zpQZBn+VS2xpwObGgEfBu/jSsqVD7bFB39R8sn JdLw10hPBx0+b7omM6FtkT+d+P+WpkGp/kK2PxC6Lx IPmWp0xsgRfvUHXHYYWiec3h1Uy66iipP9ZLLjr3pU9tpi2M0vgtTab94d8lGBr9NRRpxfy/NLLpJVGT pT2TeGjDdKJyHFOHcWHAFK0yaBP9R+xbFEEL3yPqDWGID6HXuY2wS8OvaLXF6GZC9RyAnm8MPjJzUncO TpS2e7rMhWbi197mfiNic+aH9xaVsmzZ+p8AVnbwDI VHEjNFWqOQYSNMWeeWZbJXIv7z1NQh9aBi87wmCnX6rPcguL3olyYabnIpI85BsWrtSkxQmRsQCqJQqM jtXNBoO6U6wcynWTqtH8f170NTx7RAp3PFGdSWycDjWqSwYyU5lNXE9VFSuvr/5lg0qqJkiktIruzLyG mYDGwSBMDiJafPJ940vDkDGIaZaEICLEIdwUq6Mmu3 ESNHs9EDbKBNO/joJNw/7Vb3JiljKydRlSJE7kR/QwQBvjW5ZJ9FWtB+vLfKrjos/xdJkwMWQMP0DMlY Ricardo/YkR1za8LbAlBD32trAg1HbVdRB1F6H8ATJxSawbxIT9zMmsyi1u+HYvmv5sCWs/miB5qupWyTsw8 [file] dPUX1TtWr8t8ozlT/Y9QRyO1nuDnmg0lTlm4kP/corrugator supervisor [file] VZqckXUZ0MOj2636DQW3Gw9zO806Tb2u3w958dm64B NyMBDQuALJ3evD8+0sZUe1XDg799qqEcfFjbP/8JNPF17W/12v5uUPNPkjd850g09J2zrKqnyg2hIDeR 37tLQBPTeRWi19GFyb0h4PRcx6WoMebuIdF1QuR6gxsNnsdF5jC79bcLOxB4A+FNLMyHO2yU1oj/4eoJ 2qy/Sx8X6vDiqx4PWjeRkcED19ID35VuLwXMRcF2JZ OSzlWmw0HgWGeQfdapnNQngzF4CCSvXGcaRit9cDmSQcdXJnB8M/CL2ypIeBrUwWYnvX8cwdVikcDXSv Q5fGScgDs2UfYBuFF9JT2BHsnMDP2EKxZI/jbCMn+eZQ9BidRaSLC5a3jzQULocnMt63ajMZ2qEjBvZs mAJgV/iyoWSFiLYHj5365b0XYanwQFiSHHYegHWGZu COCT6tBvXp9+wl5nTfgJ/xeO64ho2Ts7v6D+oqNGoCu7S18LNDn17qzbbO6FsqPPEoCo8ovOEMLPUmhP W1zfFVzHb0oZ5cDH95GiQCg3Fv/mYhFLtne5M6gST6dVZBmSAEdQq27pYKcuzYtbBhhJZng7BDs3sblw HqG0VCKJqxTSCk6H7n4F6Q+6HZT5pOAlnmRimpzXSn JBVX1OYZPIK8CZWZW1JObqrBB13KxgA/IWxMaI4GNZs3N+yUqQ87PUSa475r9+Reji+tfzhDyZ74dJurrB aHK7anDmg2XDat4AnN7zcNf/uARxJUvJ67gbZyujtrvG/ITYfZ7jHZUMaxfCQYehESEfDJ0xhHpwTfsv h/htBeNBbGGJ9VTY8j0a6XPx2lQj9oRjgDNGpdXY4A M6h15b8LeFArhRLOiY2Y013XO6IEihdHP/ybdsa0kmJsv1B3PivCX7bH/z/2z8JiCD2WIkL4uaVcuVs+ VWImhHfiqQKtnS9XDapCLwm0SLTqMiRpB3kLufA/Bk1ua4RbSTA+HsW8olHwb7e4dQygERtrRHkFQVQH 12lcXqCo2BsPuhjHSrWH0rw8z/aIZL/SFnSFLTU/w9 rYBUdB3EvjMED3oNGRmx9+ZmQE8G9N2FlNp42Msx4JcSOknSl+tP4wH25k/M7ixQSx9vnikoaxnCFMJb 7y7PifV1rr8Xne+l0c+QgQPi5XMYZUNOo0EfCM12OqV/50vwG9Q7dQS430xwE5ma7W6KUzcwZh16lmkN r9Ur0Cj55ev8gM7rm0r4U0Ar1YNaKHv87MtDa36o7v lwBayPDaR4df2XUyn0up53jnhyFx2SXEAgsf3GsyK7+M6H4oCRaNSci7dsSIw1uPgl4OhoN2eaYt6nUx SsvlhO/UhX2TMm2fZ8TgnpzsgKl0x72FZXEMs+yge86o5ElxT515GTvV+bqE8Pwp5SydFKypeyTbOzNC R1XCzmsTRvIQ9+cg9Ei4Xdj8Ioz45hsARPPiRJ939l YtpWPB8ccoV9ARTl1zHRNT4EZJeouii8JgMI8lCNpoeRIqyVhyHYfu3etvtzMMEajtuvWLZcnuk9Ew5l S4E+zy+aoZa//lmioN/glove turner+z87qq+UimsxEoU/7LmhQOEXt2jWbP81MnYHnWvK7tdTWlTzpxCh2E/AcAJ X8Sltbk46HxQG2ocLc4DlDbs1AmJ6g4WtFrxH5u/Sa 59TxkSmnjl4QR8irL1p0Oux1oKUr/1IS6Kjjv5W3FHIL1SrEjGLG6d8DuiKT+Qb3ExZicq1GL+sRHGaz QxeV6Fo0b+HpuGffoKsE70oxtLyGjOQe5nrxV1tLYFAXgx7lNMrV0vMY3fN5JGz3SdclnUzxrgc703x2 KG/ph5p8mQRg3E7Oeu0HYBzENY1LIACsJfNf1LiY6Y SRxUbaVnbpk24UeFJz/acBDVsnNBAACMXfH9BwJr0kdOzrgkUz1Zzzo3KA1J5h85nvhYO5e5cmXjabBe YDehJzbmzolOjxcOBAg0Z9FTXl1veya5bUpjuPSbhNkeLYujyOFl98P2FbA0LDrelUjXbrcmF32DP2Zt xwP95BirhsF7tRTOkL+N3ells9akd3+r+u+9ifxzes OqQSLzRfYs3+GlIudCbG0OM/txDZqvu7rgnPGkY0gKVeWzNz6b7ARpjo2I5Tepo+KASXxWnvWdCDz0gt gwUUhdjJ0z08MII98ndQsEcWsW2vTG5XeE+II3VloMc2v4P8NTn8maaLy52DI3MN+jrNU20/U9NdHN44 ZZ29HV31MjcaX96VxWv1IItBGI84NNXPQ3nibtRPU3 /G/MlBEuUoetE6N7dTmbecXuyFOcQN2NDVds4hVvhxZWi54H3QGjxXYegejZkAD8MQI8TqUccDtiPXX3 /hrztHgvEe2+2VkhDqqJSraZ9SdGUIdS75+QHozKfdkf4Wo4G8NwoqeP/ztBZ5z6xuC3wCmp3OcJg+kyrgyz [file] T8x/eDHiYkIirjbEkAmlZIF6mdzXVQhFUPzSo1s/SOLAR APPLICATIONS DEVELOPMENT ENGINEER aHy+s3lDqb6IwHqpoXvJ7bVfdhu9afQImo1n/RP7XXH5D6ZVvNh50en2MDIjvIk/rvGxMkfSvt+LovXs L57LdcmdoukGm3VDkTMrwrG8/yP2Tu/4eIOxxdEXrp8slUJkUB81t51TJPC+O10RkmS5uymZAkeANFKi MKt8Sb8sjDp11RwCv7JzAFGiiJF2H3zb9T7Dr5XtWu h8azic52qBlB29xbfSJRP9/+l9q64uD27qRSacNv3S7UCnXZl8nz9rn4onhyktI2yrAcKZhiL1yuGV5d 2f/mUrQApzl/aq94hN/hgJAkZLjc6+s12r9oOAokYUpVfwp2qZ2SUlUM3NdYiS1dzxZ/jBOEoAAAGASP O/DiCqovC+GlNi0Bo8IpzpgvwDKtLcbMVPiP8Bo+d/ DMbTZzFES+Q74uR9Euqd4GMk6ss7Hk0BA0zAxzC7Xl098HY8CBb6/pUU22TgDL1b4NqvgiCoFX5YPqIN TBNytIu6MoyKvgklGmNSTy+lbYPiwZ/QuAuWE/ZqRYXb3bQkqbE149NWA7Om2/QF42yQXiOlY2k5tURb C1sZ8n0wFG2Nx1fbTt0kFOBhU9zgKiGcRYNBIxumhQ +González/PBKIxxCdSlTfilKzLIwYR3tqDJGkq8O7dE+gB417K3NPAypMaADL3I+/HJ79msXVhgVeIIJFbso [file] 1B0/9n6jk5yWizxy6+EffjEdvGLgaOloUFY+gGDlyOlEu2uDiNzrsnOWnCgGF+director consumer affairs+WirYP9i+68Im0dV [file] mMk+gatehouse attendant+YwVxIvWEz0UBLaZsb84KtqAWzccSMhEcMg [file] vG/0x9LBahTcbdoG4XKvEOybvVzmzmiIVgG2uScqBxMIunnT/2nC4O/5RWdhvs/IAnyj4NMhfZBD+curtain drier [file] recreational assistant/1l1wQf+3evPQJuJQ18Wap5IUN7t6jlQS2anUExu2TsjPH0NdjTYXAHiH+f0WEfT8clMtTLr1JKF0 [file] T0Y= ID Date Data Source [id number] 10/10/2020 11:32:00 PM EDT [facility] Name Value Range Interpretation Code Description Data Laura rce(s) Supporting Document(s) SARS coronavirus 2 RNA [Presence] in Res piratory specimen by JUAN A with probe detection NEGATIVE [facility] This lab was ordered by [facility] a nd reported by [facility]. ID Date Data Source [id number] 10/09/2020 03:24:00 PM EDT [facility] Name Value Range Interpretation Code Description Data Laura rce(s) Supporting Document(s) CK-MB Value Mass 1.6 ng/mL Normal (applies to non-numeric results) [facility] ([facility]) CPK Creatine Phosphokinase 98 U/L 26-192 Lina l (applies to non-numeric results) [facility] ([facility]) Troponin I Laboratory test result Normal (applies to non-n umeric results) [facility] ([facility]) <content>Troponin I Reference Interval f or Siemens [facility] LOCI:</content>
<content></content>
<content>99th Percentile= 0.00-0.045 ng/ml</content>
<content></content>
<content>Risk Stratification:</content>
<content><= 0.10 ng/ml Decreased Risk for Adverse Clinical</content>
<content>Events.</content>
<content>0.10-1.50 ng/ml Increased Risk for Adverse Clinical</content>
<content>Events. Evaluation of additional</content>
<content>criterion and/or repeat testing in 2-6</content>
<content>hours is suggested to rule out myocardial</content>
<content>damage.</content>
<content>>= 1.50 ng/ml Indicative of Myocardial Injury.</content>
<content></content> MB/CK Relative Index 1.63 Normal (applies to non-num evy results) [facility] ([facility]) <content>DIAGNOSIS CRITERIA</content>
<content>MMB ng/ml Relative Index (RI)</content>
<content>NON-AMI < or = 5 N/A</content>
<content>FLOWERS ZONE > 5 < or = 4</content>
<content>AMI > 5 > 4</content>
<content></content> ID Date Data Source [id number] 10/09/2020 03:24:00 PM EDT [facility] ([facility]) Name Value Range Interpretation Code Description Data Laura rce(s) Supporting Document(s) Amylase [Enzymatic activity/volume] in Serum or Plasma 41 U/L 25-115 Normal (applies to non-numeric results) [facility] ([facility]) Lipase [Enzymatic activity/volume] in Serum or Plasma 34 U/L 73-393 Below low normal [facility] ([facility]) ID Date Data Source [id number] 10/09/2020 03:24:00 PM EDT [facility] ([facility]) Name Value Range Interpretation Code Description Data Laura rce(s) Supporting Document(s) Blood Urea Nitrogen 14 mg/dL 7-18 Normal (applies to non-nume nemo results) [facility] ([facility]) Glucose, Fasting 151 mg/dL 70-100 Above high normal [facility] ([facility]) Glomerular Filtration Rate Laboratory test result Normal (applies to non- numeric results) [facility] ([facility]) <content>Units are mL/min/1.73 m2</content>
<content></content>
<content>Chronic Kidney Disease Staging per NKF:</content>
<content></content>
<content>Stage I & II GFR >=60 Normal to Mildly Decreased</content>
<content>Stage III GFR 30-59 Moderately Decreased</content>
<content>Stage IV GFR 15-29 Severely Decreased</content>
<content>Stage V GFR <15 Very Little GFR Left</content>
<content>ESRD GFR <15 on OPERA SINGER</content>
<content></content> Creatinine For GFR 0.66 mg/dL 0.55-1.30 Normal (applies to non -numeric results) [facility] ([facility]) Chloride Level 101 meq/L 98-107 Normal (applies to non-numeric r esults) [facility] ([facility]) Potassium Serum 2.9 meq/L 3.5-5.1 Below lower panic limits [facility] ([facility]) Sodium Level 138 meq/L 136-145 Normal (applies to non-numeric res ults) [facility] ([facility]) Anion Gap 3 meq/L 8-16 Below low normal [facility]) Carbon Dioxide Level 34 meq/L 21-32 Above high normal [facility]) Calcium Level 8.6 mg/dL 8.8-10.2 Below low normal [facility] ([facility]) ID Date Data Source [id number] 10/09/2020 03:24:00 PM EDT [facility] ([facility]) Name Value Range Interpretation Code Description Data Laura rce(s) Supporting Document(s) Ast/Sgot 247 U/L 7-37 Above high normal [facility] ([facility]) Alkaline Phosphatase 201 U/L 45-117 Above high normal [facility] ([facility]) Bilirubin,Total 1.5 mg/dL 0.2-1.0 Above high normal [facility] ([facility]) Alt/SGPT 88 U/L 12-78 Above high normal [facility] ([facility]) Bilirubin,Direct 1.0 mg/dL 0.0-0.2 Above high normal [facility] ([facility]) Total Protein 7.8 GM/DL 6.4-8.2 Normal (applies to non-numeric re sults) [facility] ([facility]) Albumin 3.3 GM/DL 3.2-5.2 Normal (applies to non-numeric resul ts) [facility] ([facility]) Albumin/Globulin Ratio 0.7 1.2-2.2 Below low normal [facility] ([facility]) ID Date Data Source [id number] 10/09/2020 03:15:00 PM EDT [facility] ([facility]) Name Value Range Interpretation Code Description Data Laura rce(s) Supporting Document(s) Color, Urine RFX Laboratory test result Normal ( applies to non-numeric results) [facility] ([facility]) Appearance, Urine RFX Laboratory test result Nor mal (applies to non-numeric results) [facility] ([facility]) PH,Urine RFX 7.0 units 5.0-9.0 Normal (applies to non-numeric res ults) [facility]) Specific Theodore Ur Auto RFX 1.009 1.002-1.035 Nor mal (applies to non-numeric results) [facility] ([facility]) Glucose, Urine (Ua) Auto RFX Laboratory test result Above high normal [facility]) Protein, Urine Auto RFX Laboratory test result Above high normal [facility]) Ketone, Urine Auto RFX Laboratory test result Above high n ormal [facility] ([facility]) Urobilinogen, Urine Auto RFX 2.0 mg/dL 0.0-2.0 Above high normal [facility] ([facility]) Nitrite, Urine Auto RFX Laboratory test result N ormal (applies to non-numeric results) [facility] ([facility]) Leukocyte Esterase Ur Auto RFX Laboratory test result Normal (applies to non- numeric results) [facility] ([facility]) Bilirubin, Urine Auto RFX Laboratory test result Normal (applies to non- numeric results) [facility]) Blood, Urine Blood RFX Laboratory test result Above high n ormal [facility] ([facility]) RBC, Urine Auto RFX 2 /HPF 0-3 Normal (applies to non-nume nemo results) [facility] ([facility]) WBC, Urine Auto RFX 0 /HPF 0-3 Normal (applies to non-nume nemo results) [facility] ([facility]) Squam Epithelial Cell Ur Aurfx 0 /HPF 0-6 N ormal (applies to non-numeric results) [facility] ([facility]) Mucus, Urine RFX Laboratory test result Normal ( applies to non-numeric results) [facility] ([facility]) Bacteria, Urine Auto RFX Laboratory test result Above high normal [facility] ([facility]) Hyaline Cast, Urine Auto RFX 0 /LPF 0-1 Normal (appl ies to non-numeric results) [facility] ([facility]) Amorphous Sediment RFX Laboratory test result Above high n ormal [facility]) ID Date Data Source [id number] 10/09/2020 03:15:00 PM EDT [facility]) Name Value Range Interpretation Code Description Data Laura rce(s) Supporting Document(s) White Blood Count 6.1 10 4.0-10.0 Normal (applies to non-numeri c results) [facility]) Red Blood Count 3.95 10 4.00-5.40 Below low normal [facility] ([facility]) Hematocrit 35.7 % 36.0-47.0 Below low normal [facility] ( [facility]) Hemoglobin 11.1 g/dL 12.0-15.5 Below low normal [facility] ( [facility]) Mean Corpuscular Hemoglobin 28.1 pg 27.0-33.0 Norm al (applies to non-numeric results) [facility] ([facility]) Mean Corpuscular Volume 90.4 fl 80.0-96.0 Normal ( applies to non-numeric results) [facility] ([facility]) Mean Corpuscular HGB Conc 31.1 g/dL 32.0-36.5 Below low normal [facility] ([facility]) Red Cell Distribution Width 14.0 % 11.5-14.5 Norm al (applies to non-numeric results) [facility] ([facility]) Platelet Count, Automated 259 10 150-450 Normal (applies to non-numeric results) [facility] ([facility]) Lymph % 13.3 % 24.0-44.0 Below low normal [facility] ( [facility]) [place] % 5.4 % 2.0-8.0 Normal (applies to non-numeric resul ts) [facility] ([facility]) Neutrophils % 78.3 % 36.0-66.0 Above high normal [facility] ([facility]) Immature Granulocyte % 0.3 % 0-3.0 Normal (applies to non-n umeric results) [facility] ([facility]) Eos % 2.0 % 0.0-3.0 Normal (applies to non-numeric resul ts) [facility] ([facility]) Baso % 0.7 % 0.0-1.0 Normal (applies to non-numeric resul ts) [facility] ([facility]) Nucleated Red Blood Cell % 0.0 % 0-0 Normal (applies to n on-numeric results) [facility] ([facility]) Neutrophils # 4.8 10 1.5-8.5 Normal (applies to non-numeric re sults) [facility] ([facility]) Lymph # 0.8 10 1.5-5.0 Below low normal [facility] ( [facility]) [place] # 0.3 10 0.0-0.8 Normal (applies to non-numeric resul ts) [facility] ([facility]) Eos # 0.1 10 0.0-0.5 Normal (applies to non-numeric resul ts) [facility] ([facility]) Baso # 0.0 10 0.0-0.2 Normal (applies to non-numeric resul ts) [facility] ([facility]) ID Date Data Source [id number] 09/09/2020 08:30:00 AM EDT [facility] Name Value Range Interpretation Code Description Data Laura rce(s) Supporting Document(s) EGD [facility] EJRZSp9jFrEFKvAcTUHfWtjHEDnjVRqyPWHwE4H6WIklZy8IXFuyabEnQCJhLh1+JSHtTW2lve6tYYGj gMy [file] +inpatient pharmacist/RKVXZVK+fYFH6F9ncwwepTxmJXkmAunmZ6Ki1r1bLxvZLKkBQjV1HU71nzwebX6ltxOIn9Bc6Z0D [file] Jose Raul+euX2H85idwZ6DcMOvQa7d2nGUDs0oLTKMu0obr [file] 7r7opXK+SOLAR APPLICATIONS DEVELOPMENT ENGINEER+7OuWhVFZN+b9pMGn+sX4r9qUXS5goepP+SqdSavuCx2hhKnF1qmqhBdv4BHytzuxDC/vK [file] manager long term care/qN0b/pwVGWUjEENnbqmw7g63rJtvolS6yPfDexAG/rB13+ZLsSR6WKRiq1NQXiQMMdNVpSX1Wj4q [file] U9BnFiCtoCIVosX2ccglmzcLNpYMLz/5Lje/RCtkGyElmf9qhLVCq+S3yLZhkijNItwwR+SOLAR APPLICATIONS DEVELOPMENT ENGINEER+P+eqXBB [file] director consumer affairs+0IJzHiG/xN5L90d+GE5f8cypsqSWCFIiQn0GqaY [file] +dPSUu9ER3z5km7GgEawd6jnrylurEmNE8cJDUcr1RaeFSwNwaCJrSaQ6JxpXMBeZ71V7+glove turner+7o/+MDt yB9NIRstX+HMYtvT3OS/FAMtndXMjIaSslM3Ex0ihekLNJwT5Cio49SJPZnwqbvE4s+Fa4C0T9FzmUCG A4YyBYk8fQBrhE3MDjGEtilakJFsATrDsV2HuGBwvd +3wA4pOrqG8w9sJ0NQB7a+OX3co2j3y7WbBFQNfmR/HLnYntlauLjmr05BoRsfBOaSjRzodq5ptpyL7j 5afCgMAra1mRBggIzuRVskV4Tf6mpPGOvNyQmU2XZdd0rXf8MfKkkdTwlEF2/kyT//ocwc4MUA2P9BbS PlzboriHDmU43LQRnQ1xHL9qkyHVkTCXftAYLq+/j7 zv7TMTD7aeYExce0i8p4w37Zv1z9kcuzOdchmPZWuifY2VGjh4BkILXRW5V9CqGa/CTsv1ugNtbcwSWy wZhm853qJbHiiiCqVgiMcdJZexybUMMKyv4FG7KtEe78zyb5I5Yy4K+MoB+vWzUttUPai++h2bEmt11L r3b356EjTWPuvBW8z3eBbtSPZ8ORU1n1Ek+efCTNAe x/ZaKg0pi1CNcKBr3Cr2EG4lL0Yi1DByC+88cCVxPYVAxOPW1ay5iPjFK3DwOZv5X4vN95qfYi+B9P0f MzaFvtvQLNtJAeyU3Yo45BdiFJH03DeBuI6zF8+fgiuibXYi0jRCZg5YUnq4QwaSdDgVM1ADtQbSZ4mU MqHtJnZznWOo91UtW13vdEbgajq+fhOqwcA/T8e52T m8yioqmG5tTEnBhKrbaLaqPNyFyfvRQo1EhozfvP8NMv2rkRs/Ux5l4X1NndyDbtTzrpSMpuHnxmn1Y/ yZ8M3pOtLJqSZ6nKh011mycLZM0QNqvDXXdTr7qlsQE9dOI9cisGCLXuV43OlB/2ZQ6e1wcjOf4GHG5p NJIFC2iCCRgjFjvVFB3c/JqDEVDrjgM7gJg4A4+Wilmer [file] 5WQMHv7W0gmDramPjtqxtpjOsXrQluckyXvmljjiNd l11jk8h3L/oMweL/e/0CqXL1+LLXfh8813gmtQTiCkFesHvFGkPa4IiPoHv3StkJowEu6Z5j7zJpM4RI H2L46yKDjbh5Q08adxxwRyQtU5uSnq7Z06CZHlGnGqRxPtMS2JAqtal/D610J8ZBSIix2DVMRUT9wWTu hFL4hVgP2v+bx9pojxSUolou434LPyK7u6NrFRYhU/ FyI1J4UJ51f7HBGtqx+76xaYDaYOEHezqrWnLvMJMkyFtPuL+VzH5m8sSmmBtC90lCWxftpk/h/a5ywy XZ4gW7FM+J6P+swDuDaKi7P74QSUgvXYFiJcBq4A990bDX27iUPst4KWb4Ng7LLfNL0DkDiFuoZji2ta odud6tsS0EfyeYHgfVA5sd3gGeFuBE9clB5/NvpQOB ZfWjW97gdekoxtY+NdWEC7HMmV+AjFZIR30ofaPo5RUSkgwF8u9GI9uq4mDkFVl/t1sE20yJs0ySSj6Z 3/rjniwlwQ2rBotiW6m9F/eQn2AHjpj4YaiOhL60x99dGTTUDNlovr4DGA3lehvMx9K0rUarcBV+fxYf FZHTNUdtye3HqBDsAt+VeTFZsZJjCgpqQwuI93/ELECTROLYSIS ENGINEER [file] COjgs2GonsgfyST8ayAJzNL7Lo+sYI6SsqD+Instant Potato Processing Supervisor/hF3+3yUJe7sP/3WLE3G9G3CqYCujYwwAlJQC9k0cT [file] D9zmGeNvDqtJ5DZWgtsGH8Ea8RrDzUMd7pQK8lczE9/Олег/apuC2O1SBkdINPf+nt2lsogm9U4M6IKn [file] T0Y= ID Date Data Source [id number] 09/04/2020 08:00:00 AM EDT [facility] Name Value Range Interpretation Code Description Data Laura rce(s) Supporting Document(s) SARS coronavirus 2 RNA [Presence] in Res piratory specimen by JUAN A with probe detection NOT DETECTED [facility] This lab was reported by [facility] [place] [facility]. ID Date Data Source [id number] 08/11/2020 08:30:00 AM EDT [facility] Name Value Range Interpretation Code Description Data Laura rce(s) Supporting Document(s) Follow Up [facility] OZLSZg8jYcTPVcTyOVTtQfqVERxfXJdpPZDtJ3G8YKgvMp3BUNyiolJlVZCyLd7+RIVvZA9oli0qYLYf gMy [file] director consumer affairs/KQRDmhZJ2GltLPnriVIxN6r3iM/dHoXGU4xTA4M4y4OtJjpbq2reHQQ1ApzsBQmwJcnei+sJGFdtX [file] PCWh3Zcqilw+SVYo+Instant Potato Processing Supervisor/kM+Sf5R4lICJ1aWQyIgY7dvflWR9TFDrHD/gD6vKcEDJbSuVKMqylxdYKTxZ [file] glove turner/hgr0gr7egqea8unSFktpUFXyBVWyj9fYF6LxfvI 4Qjpqryq+aNbQbT46s4xSAfi73L26ZTpB7LatHAAOHkxWW6hQ/Cys/gcAMIeGAPipdc9VBAfas0ptAQE sqbUPxDgVIEHCFMucUpmfWR8MrYIt901HCU16/7Mjr/czv4mPeHIm5OHQABtokjF8OKNkX4iWt7PlJsF nNDiOvnnOM+f7inLAkqcQqNK9BEIlJ+t3ySS4b+fb7 hL6cEuXS2h7s1PWdN8YovOa6UKHr4QoKQDGuzX6+4uxmjCR7UnS3iNWs7m+qGbQMREklJl2P+tOFM56A OEpH4uUGXfVcJsxethxLB9n5OywE/AEmYS0/xzX3TS0TykmQUQI46yPG0EfoOZ1BraL9ZOJx8l62UxfR auEwemX22Vv6qd0Vy4q6DZK7QgY4QofzteRxRZFuNG kAeytg5AYxuF/X9fqGDwVjxClOjgmmJk0KgyNM6cVghtmz2kdG9iE9FfX2I44lJrF8PwOM/TmaNCfNR/ 1WaYfqHhm6K4UXP7xuQZ8e7VNS+wUIS7QRShZJTaaW5/yH0JAruYC9EmPU8gERN58wPKhDw1JicDUQ9i BpnTrGO0rl6/JS9AhUVZ33kt6780e71uNKESwgarj/ nn+I8X+4c+q9cWuNzPa1r89pzxdo7CFYKV6yD+hFaX60Wt5mIA0GNoAqVR8EwGINQclVQdGffDb0vX4O 4IayLOs1bIQ8wSCg6jGZjIMuLMXsgOK5Gu5HM1D4x0T+VXjakmT+5/9fygDcLSfELvRjqC7xKuIC8lq4 V0PZRYO/CbhqXMOvDGq+hKxE1s0uTJlKtIDtkO2hlD KxxU09agXrYrY6oaGra/rFzyU5lf9MldAGsYxXRc6BFJFkue9sOnHuNORn+HezBFxR1PJRR3dl1on9tz gyUwCEZLuJCCDlre2Z9KbAwud9y5fip4lLxHd2cSyFsBA3osiW6de6ANa+5f1AjIcs95/Liliana+i28p0J5 [file] dNcdWXmwQyrre3Tx4d0K+Cloth Trimmer Hand+NfjSqt4wvZHyKDBhh [file] vp construction/iy+p3qehhTh10n8406lY9rUn6G9rdrjlXFGn1ZU [file] 00s/Iowh9jwiTJJwyG7Do4/h6wNxA8E/TIitaM/Juan Carlos [file[facility]/8H+9G+Upn6a6Gtc+uMv25d647V2xng [file] qKp3ZpNu91s9FkWI75T8oIwDqPfRlIkeeJqOZoPdTPdON+51/buwqM/fBtG7MpBCwq884XxQ9OA4K+glove turner [file] 5KpwZF+fdwwrnGjrxLU5v/6GbqzIv/+jthd5tkbx/RVbS3SBKB8kprkYu/cJl/LINE UP MACHINE OPERATOR+xk08Q+vXWImo1lS JABBr1Y1hPsTYZuGSMFRT4sABrEuhL8Pf4y7w/1VSw KiOU9ekl3XUv4HpVLoBRWz2NN2vqRwO+uNBeUI1vATo9wN9Sj/lL0wLppKm9cewmww0sL+M6jxs88FQM pC1XDlvyPPEuspwBMtlHfqRBppi2KQ+mr+6GJJ8vzr/0YX2zUodCNTqsSF0KmnR/qbJMhplCeC6d+cHX Txt6CLnf8+cTt5zGuy91fB8afT9BmsQNuAJQCU07Jg wa7swcseeRg0yp2mjlzIht+TZIB6Vu3G3H0fB9xGx02H9emNGd4h/kONYwLBAUL5VfB50i2y+Mtj4XCr E9bQXovADBHuWtRiucMGmyHZgtgEzP+tfA/7AWwKbOu4cXiBdIqkEz3X8T4ob1i3BE0GCihKy7OS8oth HLJYhD9FulyCghqyMyD+mqUSz3zhj7l5SkLR8c4q6M ns8gVZHaYsF8L9pKMTm+5n0jzPezSt4V5dTQvjAljGKcY3qZdxaSvMGv0H2Eq18XGvmRQP/8gLYlWup8 tsdhut6fyq3RdpHSMDwAo0nx4AuzHsWvF5Sqn6mCiH0pzzTsjrFc5jzEEriPN0B2X+adqBV96rjIyO9B omvnYYiUPAsYqHRMAZhhUwsK5iVi/l1sf7tsJs7+8o 1SqvTmZJYalx2L7/crWOy6JD/y5b+jxzmyiU3gY3UqmwrOynDRdR99ELF2c/Ab5i7v5FocexoAolFGVk mUJuazabj1HfkbK9tnSSEVhHsjutE6UG5f94YedvZ6xiDsv2xRDJYtouomq9yqicQYIGiEaEEGWlwSmy aferCfnxsvukhqW1OGnbqlDLoIS9VfbCKLiVyuJHwv mCuSgSIPZocVkK5wY5/Avani/+Wc66eMykNFWMMJTXOb1D/KI7TCdVLMMjV/VhJ3CfcyiWwPlhKm8+5V4R [file] tZLvbPgjNUaG7FMJk2NP3BFI+hJqFDIKGG/vp construction/3nN3 [file] vp construction+RDEZLfS9DO1VYn84CRxh5n7+k9xwTDHOzXbCWLN8+iZXaeKPsdn8tiQXB7vU9Oh2p93QYCDn+HMR9 [file] director consumer affairs+D5Z81oYWoSc6xl7vSwsKeefoXl8evYkG8EWEYAklY7fgw4a6doMfX7brT25b797SNrWDMBPlrEoEK [file] [facility]+gf3sOApmjJ68gtyDi1878gkC3jMY3Qw/Mm9uJWClPU+8TAqsabW2u3dgOdXzPnPf34HsK [file] qSKtmMNPjT7W0wodgm/PtfY1SR3y/bGER90+Mi [file] Juan Carlos/M+vcJYeq/Xqte0i/UkO+8F4OH95clL8IJ7Kd42/WMRvDR5WTnvIeTQvmxYOViues63hXgIL9jT9W [file] a8+QjOr9/lLxfhEaIOsab7maym8CFupg9gSyM9 [file] Cp2lFNTHTXW1RXX3OvY9KKO2PAURGTyRHMXWCqMcZJ H7HGtyTx1qMa2lzTUbICYnXs8LcuQnHSAxBJCUG5MgonGxUnRqYHnzHCVqBBGgCg5NIZkzPNPvJH6+Pn X2hqJwhR3MqBbrBRDoCBNjOYZqBSYKIU6AxGuKRJYKQSFlisMMbgoPTRLQsSXX2znYSISxCDluAaIqCK QyJqaCPHYSOSnREM0FcsAqABW+W4j0psKZsySTEk2V JS2yj2EbWUWzGKurofTdFpnUFLzndSIruTdhCOHLHsH2IVavMuQFKjXqCX2U ID Date Data Source [id number] 04/28/2020 12:00:00 AM EST [facility] Name Value Range Interpretation Code Description Data Laura rce(s) Supporting Document(s) SARS-CoV-2 (COVID-19) RNA [Presence] in Respiratory specimen by JUAN A with probe detection [facility] This lab was ordered by [facility] and reported by [employer] ID Date Data Source [id number] 04/07/2020 12:00:00 AM EST [facility] Gladis Ventura DO Patient Name: JANET [id number] Date of : 1940 1 Date of Exam:04/07/2020MACARIO Sparrow [id number]#: Fax: [phone] EXAM: MAMMO SCREENING WITH CADCLINICAL [...] was read with the assistance of [employer], an FDAapproved computer aided detection system for [...] connellye(s) Supporting Document(s) ID Date Data Source [id number] 03/23/2020 07:33:00 PM EST [facility] ([facility]) Name Value Range Interpretation Code Description Data Laura rce(s) Supporting Document(s) White Blood Count 4.2 10 4.0-10.0 Normal (applies to non-numeri c results) [facility] ([facility]) Hemoglobin 11.0 g/dL 12.0-15.5 Below low normal [facility] ( [facility]) Red Blood Count 3.64 10 4.00-5.40 Below low normal [facility] ([facility]) Hematocrit 34.6 % 36.0-47.0 Below low normal [facility] ( [facility]) Mean Corpuscular Volume 95.1 fl 80.0-96.0 Normal ( applies to non-numeric results) [facility] ([facility]) Mean Corpuscular HGB Conc 31.8 g/dL 32.0-36.5 Below low normal [facility] ([facility]) Mean Corpuscular Hemoglobin 30.2 pg 27.0-33.0 Norm al (applies to non-numeric results) [facility] ([facility]) Platelet Count, Automated 202 10 150-450 Normal (applies to non-numeric results) [facility] ([facility]) Red Cell Distribution Width 13.3 % 11.5-14.5 Norm al (applies to non-numeric results) [facility] ([facility]) Neutrophils % 52.9 % 36.0-66.0 Normal (applies to non-numeric re sults) [facility] ([facility]) Lymph % 29.6 % 24.0-44.0 Normal (applies to non-numeric resul ts) [facility] ([facility]) [place] % 7.7 % 0.0-5.0 Above high normal [facility] ([facility]) Eos % 8.4 % 0.0-3.0 Above high normal [facility] ([facility]) Baso % 1.2 % 0.0-1.0 Above high normal [facility] ([facility]) Immature Granulocyte % 0.2 % 0-3.0 Normal (applies to non-n umeric results) [facility] ([facility]) Nucleated Red Blood Cell % 0.0 % 0-0 Normal (applies to n on-numeric results) [facility] ([facility]) Lymph # 1.2 10 1.5-5.0 Below low normal [facility] ( [facility]) Neutrophils # 2.2 10 1.5-8.5 Normal (applies to non-numeric re sults) [facility] ([facility]) [place] # 0.3 10 0.0-0.8 Normal (applies to non-numeric resul ts) [facility] ([facility]) Baso # 0.1 10 0.0-0.2 Normal (applies to non-numeric resul ts) [facility] ([facility]) Eos # 0.4 10 0.0-0.5 Normal (applies to non-numeric resul ts) [facility] ([facility]) ID Date Data Source [id number] 03/23/2020 07:33:00 PM EST [facility] ([facility]) Name Value Range Interpretation Code Description Data Laura rce(s) Supporting Document(s) Prothrombin Time 20.7 s 12.5-14.3 Above high normal [facility] ([facility]) Inr 1.74 Normal (applies to non-numeric resul ts) [facility] ([facility]) THERAPUTIC HUMAN INR VALUES INDICATIONS NORMAL RANGES PROPHYLAXIS/TREATMENT OF: VENOUS THROMBOSIS 2.0-3.0 PULMONARY EMBOLISM 2.0-3.0 PREVENTION OF SYSTEMIC EMBOLISM FROM: TISSUE HEART VALVES 2.0-3.0 ACUTE MYOCARDIAL INFARCTION 2.0-3.0 VALVULAR HEART DISEASE 2.0-3.0 ATRIAL FIBRILLATION 2.0-3.0 MECHANICAL VALVES(HIGH RISK) 2.5-3.5 RECURRENT MYOCARDIAL INFARCTION 2.5-3.5 ID Date Data Source [id number] 03/23/2020 07:33:00 PM EST [facility] ([facility]) Name Value Range Interpretation Code Description Data Laura rce(s) Supporting Document(s) aPTT in Platelet poor plasma by Coagulation assay 43.3 s 24.2-38.5 Above high normal [facility] ([facility]) ID Date Data Source [id number] 03/23/2020 07:33:00 PM EST [facility] ([facility]) Name Value Range Interpretation Code Description Data Laura rce(s) Supporting Document(s) CPK Creatine Phosphokinase 85 U/L 26-192 Lina l (applies to non-numeric results) [facility] ([facility]) CK-MB Value Mass 2.5 ng/mL Normal (applies to non-numeric results) [facility] MB/CK Relative Index 2.94 Normal (applies to non-num evy results) [facility] <content>DIAGNOSIS CRITERIA</content>
<content>MMB ng/ml Relative Index (RI)</content>
<content>NON-AMI < or = 5 N/A</content>
<content>FLOWERS ZONE > 5 < or = 4</content>
<content>AMI > 5 > 4</content>
<content></content> Troponin I Laboratory test result Normal (applies to non-n umeric results) [facility] ([facility]) <content>Troponin I Reference Interval f or Siemens [facility] LOCI:</content>
<content></content>
<content>99th Percentile= 0.00-0.045 ng/ml</content>
<content></content>
<content>Risk Stratification:</content>
<content><= 0.10 ng/ml Decreased Risk for Adverse Clinical</content>
<content>Events.</content>
<content>0.10-1.50 ng/ml Increased Risk for Adverse Clinical</content>
<content>Events. Evaluation of additional</content>
<content>criterion and/or repeat testing in 2-6</content>
<content>hours is suggested to rule out myocardial</content>
<content>damage.</content>
<content>>= 1.50 ng/ml Indicative of Myocardial Injury.</content>
<content></content> ID Date Data Source [id number] 03/23/2020 07:33:00 PM EST [facility] ([facility]) Name Value Range Interpretation Code Description Data Laura rce(s) Supporting Document(s) Ast/Sgot 24 U/L 7-37 Normal (applies to non-numeric resul ts) [facility] ([facility]) Alt/SGPT 23 U/L 12-78 Normal (applies to non-numeric resul ts) [facility] ([facility]) Alkaline Phosphatase 98 U/L 45-117 Normal (applies to non-num evy results) [facility] ([facility]) Bilirubin,Total 0.2 mg/dL 0.2-1.0 Normal (applies to non-numeric results) [facility] ([facility]) Bilirubin,Direct Laboratory test result 0.0-0.2 Normal ( applies to non-numeric results) [facility] Albumin 3.3 GM/DL 3.2-5.2 Normal (applies to non-numeric resul ts) [facility] ([facility]) Total Protein 6.7 GM/DL 6.4-8.2 Normal (applies to non-numeric re sults) [facility] Albumin/Globulin Ratio 1.0 1.2-2.2 Below low normal [facility] ([facility]) ID Date Data Source [id number] 03/23/2020 07:33:00 PM EST [facility] ([facility]) Name Value Range Interpretation Code Description Data Laura rce(s) Supporting Document(s) Glucose, Fasting 121 mg/dL 70-100 Above high normal [facility] ([facility]) Blood Urea Nitrogen 14 mg/dL 7-18 Normal (applies to non-nume nemo results) [facility] ([facility]) Creatinine For GFR 0.71 mg/dL 0.55-1.30 Normal (applies to non -numeric results) [facility] ([facility]) Glomerular Filtration Rate Laboratory test result Normal (applies to non- numeric results) [facility] ([facility]) <content>Units are mL/min/1.73 m2</content>
<content></content>
<content>Chronic Kidney Disease Staging per NKF:</content>
<content></content>
<content>Stage I & II GFR >=60 Normal to Mildly Decreased</content>
<content>Stage III GFR 30- 59 Moderately Decreased</content>
<content>Stage IV GFR 15-29 Severely Decreased</content>
<content>Stage V GFR <15 Very Little GFR Left</content>
<content>ESRD GFR <15 on OPERA SINGER</content>
<content></content> Potassium Serum 4.0 meq/L 3.5-5.1 Normal (applies to non-numeric results) [facility] ([facility]) Sodium Level 142 meq/L 136-145 Normal (applies to non-numeric res ults) [facility] ([facility]) Carbon Dioxide Level 25 meq/L 21-32 Normal (applies to non-num evy results) [facility] ([facility]) Chloride Level 110 meq/L 98-107 Above high normal [facility] ([facility]) Anion Gap 7 meq/L 8-16 Below low normal [facility] Calcium Level 8.8 mg/dL 8.8-10.2 Normal (applies to non-numeric re sults) [facility] ID Date Data Source [id number] 03/23/2020 07:33:00 PM EST [facility] ([facility]) Name Value Range Interpretation Code Description Data Laura rce(s) Supporting Document(s) Thyrotropin [Units/volume] in Serum or Plasma 5.210 uIU/ML 0. 358-3.740 Above high normal [facility] ([facility]) Thyroxine (T4) free [Mass/volume] in Serum or Plasma 1.08 ng/dL 0.76-1.46 Normal (applies to non-numeric results) [facility] ([facility]) ID Date Data Source [id number] 03/19/2020 06:30:00 PM EST [facility] ([facility]) Name Value Range Interpretation Code Description Data Laura rce(s) Supporting Document(s) Laboratory test finding (navigational concept) Laboratory test r esult Normal (applies to non-numeric results) [facility] ([facility]) A false negative result may occur if [...] pathogens. DISCLAIMER: Testing was performed using the [employer] SARS-CoV-2 test. This test was developed and its performance characteristics determined by [employer]. This test has not been FDA cleared [...] or revoked sooner. ID Date Data Source [id number] 03/19/2020 06:30:00 PM EST [facility] Name Value Range Interpretation Code Description Data Laura rce(s) Supporting Document(s) Coronavirus 2019 Nasopharygeal Laboratory test result [facility]) Laboratory test finding (navigational concept) Laboratory test r esult Normal (applies to non-numeric results) [facility]) A false negative result may occur if [...] pathogens. DISCLAIMER: Testing was performed using the [employer] SARS-CoV-2 test. This test was developed and its performance characteristics determined by [employer]. This test has not been FDA cleared [...] or revoked sooner. ID Date Data Source [id number] 03/19/2020 04:54:00 PM EST [facility] ([facility]) Name Value Range Interpretation Code Description Data Laura rce(s) Supporting Document(s) Ast/Sgot 19 U/L 7-37 Normal (applies to non-numeric resul ts) [facility] ([facility]) Alt/SGPT 21 U/L 12-78 Normal (applies to non-numeric resul ts) [facility] ([facility]) Alkaline Phosphatase 98 U/L 45-117 Normal (applies to non-num evy results) [facility] ([facility]) Bilirubin,Total 0.3 mg/dL 0.2-1.0 Normal (applies to non-numeric results) [facility] ([facility]) Total Protein 6.6 GM/DL 6.4-8.2 Normal (applies to non-numeric re sults) [facility] ([facility]) Bilirubin,Direct 0.1 mg/dL 0.0-0.2 Normal (applies to non-numeric results) [facility] ([facility]) Albumin 3.3 GM/DL 3.2-5.2 Normal (applies to non-numeric resul ts) [facility] ([facility]) Albumin/Globulin Ratio 1.0 1.2-2.2 Below low normal [facility] ([facility]) ID Date Data Source [id number] 03/19/2020 04:54:00 PM EST [facility] ([facility]) Name Value Range Interpretation Code Description Data Laura rce(s) Supporting Document(s) CPK Creatine Phosphokinase 81 U/L 26-192 Lina l (applies to non-numeric results) [facility] ([facility]) MB/CK Relative Index 3.33 Normal (applies to non-num evy results) [facility] ([facility]) <content>DIAGNOSIS CRITERIA</content>
<content>MMB ng/ml Relative Index (RI)</content>
<content>NON-AMI < or = 5 N/A</content>
<content>FLOWERS ZONE > 5 < or = 4</content>
<content>AMI > 5 > 4</content>
<content></content> CK-MB Value Mass 2.7 ng/mL Normal (applies to non-numeric results) [facility] ([facility]) Troponin I Laboratory test result Normal (applies to non-n umeric results) [facility] ([facility]) <content>Troponin I Reference Interval f or Siemens [employer] LOCI:</content>
<content></content>
<content>99th Percentile= 0.00-0.045 ng/ml</content>
<content></content>
<content>Risk Stratification:</content>
<content><= 0.10 ng/ml Decreased Risk for Adverse Clinical</content>
<content>Events.</content>
<content>0.10-1.50 ng/ml Increased Risk for Adverse Clinical</content>
<content>Events. Evaluation of additional</content>
<content>criterion and/or repeat testing in 2-6</content>
<content>hours is suggested to rule out myocardial</content>
<content>damage.</content>
<content>>= 1.50 ng/ml Indicative of Myocardial Injury.</content>
<content></content> ID Date Data Source [id number] 03/19/2020 04:54:00 PM EST [facility] ([facility]) Name Value Range Interpretation Code Description Data Laura rce(s) Supporting Document(s) aPTT in Platelet poor plasma by Coagulation assay 37.1 s 24.2-38.5 Normal (applies to non-numeric results) [facility] ([facility]) ID Date Data Source [id number] 03/19/2020 04:54:00 PM EST [facility] ([facility]) Name Value Range Interpretation Code Description Data Laura rce(s) Supporting Document(s) Inr 1.08 Normal (applies to non-numeric resul ts) [facility] ([facility]) THERAPUTIC HUMAN INR VALUES INDICATIONS NORMAL RANGES PROPHYLAXIS/TREATMENT OF: VENOUS THROMBOSIS 2.0-3.0 PULMONARY EMBOLISM 2.0-3.0 PREVENTION OF SYSTEMIC EMBOLISM FROM: TISSUE HEART VALVES 2.0-3.0 ACUTE MYOCARDIAL INFARCTION 2.0-3.0 VALVULAR HEART DISEASE 2.0-3.0 ATRIAL FIBRILLATION 2.0-3.0 MECHANICAL VALVES(HIGH RISK) 2.5-3.5 RECURRENT MYOCARDIAL INFARCTION 2.5-3.5 Prothrombin Time 14.2 s 12.5-14.[address] [facility]) ID Date Data Source [id number] 03/19/2020 04:54:00 PM EST [facility] ([facility]) Name Value Range Interpretation Code Description Data Laura rce(s) Supporting Document(s) White Blood Count 4.2 10 4.0-10.0 Normal (applies to non-numeri c results) [facility] ([facility]) Red Blood Count 3.68 10 4.00-5.40 Below low normal [facility] ([facility]) Hemoglobin 11.1 g/dL 12.0-15.5 Below low normal [facility] ( [facility]) Hematocrit 35.0 % 36.0-47.0 Below low normal [facility] ( [facility]) Mean Corpuscular Volume 95.1 fl 80.0-96.0 Normal ( applies to non-numeric results) [facility] ([facility]) Mean Corpuscular HGB Conc 31.7 g/dL 32.0-36.5 Below low normal [facility] ([facility]) Mean Corpuscular Hemoglobin 30.2 pg 27.0-33.0 Norm al (applies to non-numeric results) [facility] ([facility]) Platelet Count, Automated 180 10 150-450 Normal (applies to non-numeric results) [facility] ([facility]) Red Cell Distribution Width 13.5 % 11.5-14.5 Norm al (applies to non-numeric results) [facility] ([facility]) Lymph % 27.8 % 24.0-44.0 Normal (applies to non-numeric resul ts) [facility] ([facility]) Neutrophils % 53.0 % 36.0-66.0 Normal (applies to non-numeric re sults) [facility] ([facility]) [place] % 7.2 % 0.0-5.0 Above high normal [facility] ([facility]) Eos % 10.8 % 0.0-3.0 Above high normal [facility] ([facility]) Baso % 1.0 % 0.0-1.0 Normal (applies to non-numeric resul ts) [facility] ([facility]) Immature Granulocyte % 0.2 % 0-3.0 Normal (applies to non-n umeric results) MED[facility] ([facility]) Nucleated Red Blood Cell % 0.0 % 0-0 Normal (applies to n on-numeric results) [facility] ([facility]) Neutrophils # 2.2 10 1.5-8.5 Normal (applies to non-numeric re sults) [facility] ([facility]) Lymph # 1.2 10 1.5-5.0 Below low normal [facility] ( [facility]) Eos # 0.5 10 0.0-0.5 Normal (applies to non-numeric resul ts) [facility] ([facility]) [place] # 0.3 10 0.0-0.8 Normal (applies to non-numeric resul ts) [facility] ([facility]) Baso # 0.0 10 0.0-0.2 Normal (applies to non-numeric resul ts) [facility] ([facility]) ID Date Data Source [id number] 03/19/2020 04:54:00 PM EST MED[facility] ([facility]) Name Value Range Interpretation Code Description Data Laura rce(s) Supporting Document(s) Thyrotropin [Units/volume] in Serum or Plasma 5.520 uIU/ML 0. 358-3.740 Above high normal [facility] ([facility]) Thyroxine (T4) free [Mass/volume] in Serum or Plasma 0.98 ng/dL 0.76-1.46 Normal (applies to non-numeric results) [facility] ([facility]) ID Date Data Source [id number] 03/19/2020 04:54:00 PM EST MED[facility] ([facility]) Name Value Range Interpretation Code Description Data Laura rce(s) Supporting Document(s) Blood Urea Nitrogen 12 mg/dL 7-18 Normal (applies to non-nume nemo results) [facility] Glucose, Fasting 98 mg/dL 70-100 Normal (applies to non-numeric results) [facility]) Creatinine For GFR 0.68 mg/dL 0.55-1.30 Normal (applies to non -numeric results) [facility] ([facility]) Glomerular Filtration Rate Laboratory test result Normal (applies to non- numeric results) [facility] ([facility]) <content>Units are mL/min/1.73 m2</content>
<content></content>
<content>Chronic Kidney Disease Staging per NKF:</content>
<content></content>
<content>Stage I & II GFR >=60 Normal to Mildly Decreased</content>
<content>Stage III GFR 30- 59 Moderately Decreased</content>
<content>Stage IV GFR 15-29 Severely Decreased</content>
<content>Stage V GFR <15 Very Little GFR Left</content>
<content>ESRD GFR <15 on OPERA SINGER</content>
<content></content> Sodium Level 143 meq/L 136-145 Normal (applies to non-numeric res ults) [facility] Chloride Level 108 meq/L 98-107 Above high normal [facility] ([facility]) Potassium Serum 3.4 meq/L 3.5-5.1 Below low normal [facility] ([facility]) Carbon Dioxide Level 29 meq/L 21-32 Normal (applies to non-num evy results) [facility] ([facility]) Anion Gap 6 meq/L 8-16 Below low normal [facility] ( [facility]) Calcium Level 8.5 mg/dL 8.8-10.2 Below low normal MED[facility] T ([facility]) ID Date Data Source [id number] 03/19/2020 03:07:00 PM EST MED[facility] ([facility]) Name Value Range Interpretation Code Description Data Laura rce(s) Supporting Document(s) EKG Laboratory test result [facility] ([facility]) ID Date Data Source WOUND CULTURE AND GRAM ST 02/26/2020 12:00:00 AM EDT eCW1 ([facility]) Name Value Range Interpretation Code Description Data Laura rce(s) Supporting Document(s) WOUND CULTURE AND GRAM ST eCW1 ([facility]) ID Date Data Source [id number] 02/25/2020 12:00:00 AM EDT [facility] Gladis Ventura DO Patient Name: SUE URENA[address] Date of : 1940 1 Date of Exam: 02/25/2020MACARIO [place] [id number]#: Fax: [phone] EXAM: CT ABDOMEN & PELVIS [...] and limitations as described above.Accredited by the [employer] in [place].REJI Alcala/Boyd you for referring SUE URENA to our o ffice.Electronically Signed - IRENE SARAH DO 02/25/20 15:38 Name Value Range Interpretation Code Description Data Laura rce(s) Supporting Document(s) ID Date Data Source [id number] 02/17/2020 03:59:00 PM EDT [facility] ([facility]) Name Value Range Interpretation Code Description Data Laura rce(s) Supporting Document(s) EKG Laboratory test result [facility] ([facility]) Procedure Social History Code Duration Value Status Description Data Source(s ) Alcohol intake 02/02/2021 12:00:00 AM EDT Ex-drinker (finding) comp leted Ex- drinker (finding) [facility] Smoking 01/28/2021 12:00:00 AM EDT - 05/01/1970 12:00:00 AM ES T Quit completed [facility]uit [facility] Alcohol intake 01/26/2021 12:00:00 AM EDT Ex-drinker (finding) comp leted Ex- drinker (finding) [facility] Alcohol intake 12/21/2020 12:00:00 AM EDT Ex-drinker (finding) comp leted Ex- drinker (finding) [facility] Smoking 10/27/2020 12:00:00 AM EDT Former Smoker completed Former Smoker eCW1 ([facility]) Smoking 10/20/2020 12:00:00 AM EDT Former Smoker completed Former Smoker eCW1 ([facility]) Smoking 10/20/2020 12:00:00 AM EDT Former Smoker completed Former Smoker eCW1 ([facility]) Smoking 10/06/2020 12:00:00 AM EDT Former Smoker completed Former Smoker eCW1 ([facility]) Smoking 10/06/2020 12:00:00 AM EDT Former Smoker completed Former Smoker eCW1 ([facility]) Smoking 10/05/2020 12:00:00 AM EDT Former Smoker completed Former Smoker eCW1 ([facility]) Smoking 05/28/2020 12:00:00 AM EST Patient is a former smoker completed Patient is a former smoker [facility] ([facility] ) Alcohol intake 04/02/2020 12:00:00 AM EST Not Currently completed [facility] Cigarette pack-years 04/02/2020 12:00:00 AM EST UNK completed [facility] Cigarettes smoked current (pack per day) - Reported 04/02/20 12:00:00 AM EST UNK completed [facility] Smoking 04/02/2020 12:00:00 AM EST Former smoker completed Former smoker [facility] Alcohol intake 03/25/2020 12:00:00 AM EST Not Currently completed [facility] Cigarette pack-years 03/25/2020 12:00:00 AM EST UNK completed [facility] Cigarettes smoked current (pack per day) - Reported 03/25/20 12:00:00 AM EST UNK completed [facility] Smoking 03/25/2020 12:00:00 AM EST Former smoker completed Former smoker [facility] Vital Signs ID Date Data Source UNK Name Value Range Interpretation Code Description Data Source(s) Respiratory rate 18 /min 18 /min [facility]) Heart rate 86 /min 86 /min [facility] ([facility]) Oxygen saturation in Arterial blood by Pulse oximetry 95 % 95 % [facility] ([facility]) [place] body weight 100 [lb_av] 100 [lb_av] FERCHO T ([facility]) Body temperature 96.9 [degF] 96.9 [degF] [facility] Systolic blood pressure 134 mm[Hg] 134 mm[Hg] M EDENT ([facility]) Diastolic blood pressure 74 mm[Hg] 74 mm[Hg] [facility] Body height 57.6 [in_i] 57.6 [in_i] REBECA ([facility]) 4'9.60" Body weight 101.12 [lb_av] 101.12 [lb_av] MEDEN T ([facility]) Body mass index (BMI) [Ratio] 21.4 kg/m2 21.4 k g/m2 REBECA ([facility]) Systolic blood pressure 134 mm[Hg] 134 mm[Hg] M EDENT ([facility]) [place] body weight 100 [lb_av] 100 [lb_av] MEDEN T ([facility]) Heart rate 67 /min 67 /min [facility] ([facility]) Body height 57.6 [in_i] 57.6 [in_i] [facility] ([facility]) 4'9.60" Body weight 100.38 [lb_av] 100.38 [lb_av] MEDEN T ([facility]) Body mass index (BMI) [Ratio] 21.3 kg/m2 21.3 k g/m2 [facility] ([facility]) Respiratory rate 18 /min 18 /min [facility] ( [facility]) Body temperature 97.6 [degF] 97.6 [degF] [facility] ([facility]) Oxygen saturation in Arterial blood by Pulse oximetry 99 % 99 % [facility] ([facility]) Diastolic blood pressure 82 mm[Hg] 82 mm[Hg] [facility] ([facility]) Systolic blood pressure 134 mm[Hg] 134 mm[Hg] M EDENT ([facility]) Body mass index (BMI) [Ratio] 21.7 kg/m2 21.7 k g/m2 [facility] ([facility]) Body weight 102.25 [lb_av] 102.25 [lb_av] MEDEN T ([facility]) Diastolic blood pressure 74 mm[Hg] 74 mm[Hg] [facility] ([facility]) Body height 57.6 [in_i] 57.6 [in_i] [facility] ([facility]) 4'9.60" Heart rate 87 /min 87 /min [facility] ([facility]) Respiratory rate 18 /min 18 /min [facility] ( [facility]) Body temperature 97.7 [degF] 97.7 [degF] [facility] ([facility]) Oxygen saturation in Arterial blood by Pulse oximetry 97 % 97 % [facility] ([facility]) [place] body weight 100 [lb_av] 100 [lb_av] MED[facility] T ([facility]) Systolic blood pressure 196 mm[Hg] 196 mm[Hg] [facility] Diastolic blood pressure 82 mm[Hg] 82 mm[Hg] [facility] Heart rate 64 /min 64 /min [facility] Body height 147.3 cm 147.3 cm [facility] Body weight 46.267 kg 46.267 kg [facility] Body mass index (BMI) [Ratio] 21.32 kg/m2 21.32 kg/m2 [facility] Oxygen saturation in Arterial blood by Pulse oximetry 95 % 95 % [facility] Body mass index (BMI) [Ratio] 21.1 kg/m2 21.1 k g/m2 [facility] ([facility]) Body temperature 98.2 [degF] 98.2 [degF] [facility] ([facility]) Oxygen saturation in Arterial blood by Pulse oximetry 95 % 95 % [facility] Systolic blood pressure 142 mm[Hg] 142 mm[Hg] M EDENT ([facility]) Diastolic blood pressure 76 mm[Hg] 76 mm[Hg] [facility] ([facility]) Body height 57.6 [in_i] 57.6 [in_i] [facility] 4'9.60" [place] body weight 100 [lb_av] 100 [lb_av] MEDEN T ([facility]) Body weight 99.38 [lb_av] 99.38 [lb_av] [facility] ([facility]) Heart rate 82 /min 82 /min [facility] ([facility]) Respiratory rate 18 /min 18 /min [facility] ( [facility]) Heart rate 77 /min 77 /min [facility] Body temperature 36.5 Arlyn 36.5 Arlyn [facility] Respiratory rate 16 /min 16 /min [facility] Oxygen saturation in Arterial blood by Pulse oximetry 100 % 100 % [facility] Systolic blood pressure 202 mm[Hg] 202 mm[Hg] [facility] Diastolic blood pressure 69 mm[Hg] 69 mm[Hg] [facility] Body height 147.3 cm 147.3 cm [facility] Body weight 45.8 kg 45.8 kg [facility] Body mass index (BMI) [Ratio] 21.10 kg/m2 21.10 kg/m2 [facility] Systolic blood pressure 180 mm[Hg] 180 mm[Hg] [facility] Diastolic blood pressure 74 mm[Hg] 74 mm[Hg] [facility] Heart rate 70 /min 70 /min [facility] Body height 147.3 cm 147.3 cm [facility] Body weight 47.174 kg 47.174 kg [facility] Body mass index (BMI) [Ratio] 21.74 kg/m2 21.74 kg/m2 [facility] Oxygen saturation in Arterial blood by Pulse oximetry 97 % 97 % [facility] Body weight 98.25 [lb_av] 98.25 [lb_av] [facility] ([facility]) Body mass index (BMI) [Ratio] 20.8 kg/m2 20.8 k g/m2 [facility]) Systolic blood pressure 130 mm[Hg] 130 mm[Hg] M EDENT ([facility]) Diastolic blood pressure 98 mm[Hg] 98 mm[Hg] [facility] ([facility]) Body height 57.6 [in_i] 57.6 [in_i] [facility] ([facility]) 4'9.60" Heart rate 78 /min 78 /min [facility] ([facility]) Respiratory rate 14 /min 14 /min [facility] ( [facility]) Body temperature 96.8 [degF] 96.8 [degF] [facility] ([facility]) Oxygen saturation in Arterial blood by Pulse oximetry 98 % 98 % [facility] ([facility]) [place] body weight 100 [lb_av] 100 [lb_av] MED[facility] T ([facility]) Oxygen saturation in Arterial blood by Pulse oximetry 97 % 97 % [facility] (Health system) Heart rate 64 /min 64 /min [facility] ([facility]) Systolic blood pressure 150 mm[Hg] 150 mm[Hg] [facility] Diastolic blood pressure 100 mm[Hg] 100 mm[Hg] [facility] (Health system) Body height 57 [in_i] 57 [in_i] [facility] ([facility]) 4'9" Body weight 101.00 [lb_av] 101.00 [lb_av] MED[facility] T (Health system) Body mass index (BMI) [Ratio] 21.9 kg/m2 21.9 k g/m2 [facility] (Health [facility]) [place] body weight 100 [lb_av] 100 [lb_av] [facility] Body weight 45.814 kg 45.814 kg [facility] ([facility]) Body surface area Derived from formula 1.35 m2 1.35 m2 [facility] (Health system) Diastolic blood pressure 74 mm[Hg] 74 mm[Hg] [facility] ([facility]) Body weight 99.00 [lb_av] 99.00 [lb_av] [facility] ([facility]) Body mass index (BMI) [Ratio] 21.0 kg/m2 21.0 k g/m2 [facility] ([facility]) Heart rate 78 /min 78 /min [facility] ([facility]) Respiratory rate 18 /min 18 /min [facility] ( [facility]) Body height 57.6 [in_i] 57.6 [in_i] [facility] ([facility]) 4'9.60" Systolic blood pressure 136 mm[Hg] 136 mm[Hg] [facility] Body temperature 97.3 [degF] 97.3 [degF] [facility] ([facility]) Oxygen saturation in Arterial blood by Pulse oximetry 99 % 99 % [facility] ([facility]) [place] body weight 100 [lb_av] 100 [lb_av] MED[facility] T ([facility]) Body mass index (BMI) [Ratio] 19.99 kg/m2 19.99 kg/m2 eCW1 ([facility]) Body height [in_i] eCW1 ([facility]) Body weight 99 [lb_av] 99 [lb_av] eCW1 ([facility]) Body weight kg eCW1 ([facility]) Diastolic blood pressure 70 mm[Hg] 70 mm[Hg] eCW1 ([facility]) Heart rate 64 /min 64 /min eCW1 ([facility]) Respiratory rate 16 /min 16 /min eCW1 ([facility]) Body temperature 97.8 [degF] 97.8 [degF] eCW1 ( [facility]) Systolic blood pressure 163 mm[Hg] 163 mm[Hg] e CW1 ([facility]) Systolic blood pressure 130 mm[Hg] 130 mm[Hg] M EDENT ([facility]) Diastolic blood pressure 72 mm[Hg] 72 mm[Hg] [facility] ([facility]) Body height 57.6 [in_i] 57.6 [in_i] [facility] ([facility]) 4'9.60" Body weight 104.00 [lb_av] 104.00 [lb_av] MEDEN T ([facility]) Body mass index (BMI) [Ratio] 22.0 kg/m2 22.0 k g/m2 [facility] ([facility]) Heart rate 68 /min 68 /min [facility] ([facility]) Respiratory rate 14 /min 14 /min [facility] ( [facility]) Body temperature 97.5 [degF] 97.5 [degF] [facility] ([facility]) Oxygen saturation in Arterial blood by Pulse oximetry 99 % 99 % [facility] ([facility]) [place] body weight 100 [lb_av] 100 [lb_av] MED[facility] T ([facility]) Body weight 99 [lb_av] 99 [lb_av] eCW1 ([facility]) Body weight kg eCW1 ([facility]) Body height [in_i] eCW1 ([facility]) Body mass index (BMI) [Ratio] 19.99 kg/m2 19.99 kg/m2 eCW1 ([facility]) Heart rate 67 /min 67 /min eCW1 ([facility]) Respiratory rate 17 /min 17 /min eCW1 ([facility]) Body temperature 98.4 [degF] 98.4 [degF] eCW1 ( [facility]) Systolic blood pressure 199 mm[Hg] 199 mm[Hg] e CW1 ([facility]) Diastolic blood pressure 81 mm[Hg] 81 mm[Hg] eCW1 ([facility]) Body weight 98 [lb_av] 98 [lb_av] eCW1 ([facility]) Body weight kg eCW1 ([facility]) Body height [in_i] eCW1 ([facility]) Body mass index (BMI) [Ratio] 19.79 kg/m2 19.79 kg/m2 eCW1 ([facility]) Heart rate 64 /min 64 /min eCW1 ([facility]) Respiratory rate 16 /min 16 /min eCW1 ([facility]) Body temperature 98.5 [degF] 98.5 [degF] eCW1 ( [facility]) Body weight 106 [lb_av] 106 [lb_av] eCW1 ([facility]) Body weight kg eCW1 ([facility]) Body height [in_i] eCW1 ([facility]) Body mass index (BMI) [Ratio] 21.41 kg/m2 21.41 kg/m2 eCW1 ([facility]) Heart rate 76 /min 76 /min eCW1 ([facility]) Respiratory rate 18 /min 18 /min eCW1 ([facility]) Body temperature 98.4 [degF] 98.4 [degF] eCW1 ( [facility]) Systolic blood pressure 140 mm[Hg] 140 mm[Hg] e CW1 ([facility]) Diastolic blood pressure 76 mm[Hg] 76 mm[Hg] eCW1 ([facility]) Body weight 106.0 [lb_av] 106.0 [lb_av] eCW1 ([facility]) Body height [in_i] eCW1 ([facility]) Body mass index (BMI) [Ratio] 21.41 kg/m2 21.41 kg/m2 eCW1 ([facility]) Systolic blood pressure 130 mm[Hg] 130 mm[Hg] e CW1 ([facility]) Diastolic blood pressure 74 mm[Hg] 74 mm[Hg] eCW1 ([facility]) Body weight 100 [lb_av] 100 [lb_av] eCW1 ([facility]) Body weight kg eCW1 ([facility]) Body height [in_i] eCW1 ([facility]) Body mass index (BMI) [Ratio] 20.20 kg/m2 20.20 kg/m2 eCW1 ([facility]) Heart rate 93 /min 93 /min eCW1 ([facility]) Respiratory rate 18 /min 18 /min eCW1 ([facility]) Body temperature 98.2 [degF] 98.2 [degF] eCW1 ( [facility]) Systolic blood pressure 136 mm[Hg] 136 mm[Hg] e CW1 ([facility]) Diastolic blood pressure 79 mm[Hg] 79 mm[Hg] eCW1 ([facility]) Body weight 100 [lb_av] 100 [lb_av] eCW1 ([facility]) Body weight kg eCW1 ([facility]) Body height [in_i] eCW1 ([facility]) Body mass index (BMI) [Ratio] 20.20 kg/m2 20.20 kg/m2 eCW1 ([facility]) Heart rate 75 /min 75 /min eCW1 ([facility]) Respiratory rate 16 /min 16 /min eCW1 ([facility]) Body temperature 98.2 [degF] 98.2 [degF] eCW1 ( [facility]) Systolic blood pressure 137 mm[Hg] 137 mm[Hg] e CW1 ([facility]) Diastolic blood pressure 80 mm[Hg] 80 mm[Hg] eCW1 ([facility]) Body weight 100 [lb_av] 100 [lb_av] eCW1 ([facility]) Body weight kg eCW1 ([facility]) Body height [in_i] eCW1 ([facility]) Body mass index (BMI) [Ratio] 20.20 kg/m2 20.20 kg/m2 eCW1 ([facility]) Heart rate 83 /min 83 /min eCW1 ([facility]) Respiratory rate 17 /min 17 /min eCW1 ([facility]) Body temperature 99.3 [degF] 99.3 [degF] eCW1 ( [facility]) Systolic blood pressure 167 mm[Hg] 167 mm[Hg] e CW1 ([facility]) Diastolic blood pressure 78 mm[Hg] 78 mm[Hg] eCW1 ([facility]) Systolic blood pressure 136 mm[Hg] 136 mm[Hg] M EDENT ([facility]) Diastolic blood pressure 76 mm[Hg] 76 mm[Hg] MEDENT ([facility]) Body height 57.6 [in_i] 57.6 [in_i] MED[facility] ([facility]) 4'9.60" Body weight 104.25 [lb_av] 104.25 [lb_av] MEDEN T ([facility]) Body mass index (BMI) [Ratio] 22.1 kg/m2 22.1 k g/m2 MED[facility] ([facility]) Body temperature 98.5 [degF] 98.5 [degF] MED[facility] ([facility]) Heart rate 100 /min 100 /min MED[facility] ([facility]) Oxygen saturation in Arterial blood by Pulse oximetry 97 % 97 % [facility] ([facility]) [place] body weight 100 [lb_av] 100 [lb_av] MEDEN T ([facility]) Respiratory rate 18 /min 18 /min [facility] ( [facility]) Body weight 104 [lb_av] 104 [lb_av] eCW1 ([facility]) Body weight kg eCW1 ([facility]) Body height [in_i] eCW1 ([facility]) Body mass index (BMI) [Ratio] 21.00 kg/m2 21.00 kg/m2 eCW1 ([facility]) Heart rate 91 /min 91 /min eCW1 ([facility]) Respiratory rate 16 /min 16 /min eCW1 ([facility]) Body temperature 98.2 [degF] 98.2 [degF] eCW1 ( [facility]) Body weight 104 [lb_av] 104 [lb_av] eCW1 ([facility]) Body height [in_i] eCW1 ([facility]) Body mass index (BMI) [Ratio] 21.00 kg/m2 21.00 kg/m2 eCW1 ([facility]) Heart rate 86 /min 86 /min eCW1 ([facility]) Respiratory rate 18 /min 18 /min eCW1 ([facility]) Body temperature 98.5 [degF] 98.5 [degF] eCW1 ( [facility]) Systolic blood pressure 186 mm[Hg] 186 mm[Hg] e CW1 ([facility]) Diastolic blood pressure 80 mm[Hg] 80 mm[Hg] eCW1 ([facility]) Body height 57.6 [in_i] 57.6 [in_i] MED[facility] ([facility]) 4'9.60" Systolic blood pressure 166 mm[Hg] 166 mm[Hg] M EDENT ([facility]) Diastolic blood pressure 80 mm[Hg] 80 mm[Hg] MED[facility] ([facility]) Body weight 108.38 [lb_av] 108.38 [lb_av] MEDEN T ([facility]) [place] body weight 100 [lb_av] 100 [lb_av] MEDEN T ([facility]) Body mass index (BMI) [Ratio] 23.0 kg/m2 23.0 k g/m2 MED[facility] ([facility]) Heart rate 89 /min 89 /min [facility] ([facility]) Respiratory rate 16 /min 16 /min [facility] ( [facility]) Body temperature 97.1 [degF] 97.1 [degF] MEDENT ([facility]) Oxygen saturation in Arterial blood by Pulse oximetry 96 % 96 % [facility] ([facility]) Diastolic blood pressure 94 mm[Hg] 94 mm[Hg] MEDENT ([facility]) Body mass index (BMI) [Ratio] 20.2 kg/m2 20.2 k g/m2 MEDENT ([facility]) Heart rate 81 /min 81 /min MEDENT ([facility]) Respiratory rate 14 /min 14 /min MED[facility] ( [facility]) Oxygen saturation in Arterial blood by Pulse oximetry 99 % 99 % [facility]) Body temperature 97.5 [degF] 97.5 [degF] MEDENT ([facility]) Body weight 100.00 [lb_av] 100.00 [lb_av] MEDEN T ([facility]) Systolic blood pressure 212 mm[Hg] 212 mm[Hg] M EDENT ([facility]) Body height 59 [in_i] 59 [in_i] MEDENT ([facility]) 4'11" Systolic blood pressure 124 mm[Hg] 124 mm[Hg] [facility] Diastolic blood pressure 80 mm[Hg] 80 mm[Hg] [facility] Heart rate 65 /min 65 /min [facility] Body height 149.9 cm 149.9 cm [facility] Body weight 48.535 kg 48.535 kg [facility] Body mass index (BMI) [Ratio] 21.61 kg/m2 21.61 kg/m2 [facility] Oxygen saturation in Arterial blood by Pulse oximetry 100 % 100 % [facility] [place] body weight 100 [lb_av] 100 [lb_av] MEDEN T ([facility]) Body height 57.6 [in_i] 57.6 [in_i] MEDENT ([facility]) 4'9.60" Body weight 107.50 [lb_av] 107.50 [lb_av] MEDEN T ([facility]) Systolic blood pressure 122 mm[Hg] 122 mm[Hg] M KARLA ([facility]) Body mass index (BMI) [Ratio] 22.8 kg/m2 22.8 k g/m2 MEDENT ([facility]) Heart rate 80 /min 80 /min MED[facility] ([facility]) Respiratory rate 18 /min 18 /min MED[facility] ( [facility]) Body temperature 98.5 [degF] 98.5 [degF] MEDENT ([facility]) Oxygen saturation in Arterial blood by Pulse oximetry 95 % 95 % [facility] ([facility]) Diastolic blood pressure 64 mm[Hg] 64 mm[Hg] [facility] ([facility]) Diastolic blood pressure 68 mm[Hg] 68 mm[Hg] eCW1 ([facility]) Body weight 109.4 [lb_av] 109.4 [lb_av] eCW1 ([facility]) Body height [in_i] eCW1 ([facility]) Body mass index (BMI) [Ratio] 22.09 kg/m2 22.09 kg/m2 eCW1 ([facility]) Systolic blood pressure 112 mm[Hg] 112 mm[Hg] e CW1 ([facility]) Systolic blood pressure 130 mm[Hg] 130 mm[Hg] M EDKRISTEN ([facility], ) Diastolic blood pressure 72 mm[Hg] 72 mm[Hg] MEDENT ([facility], ) Heart rate 78 /min 78 /min MEDKRISTEN ([facility]) Oxygen saturation in Arterial blood by Pulse oximetry 98 % 98 % [facility] (Health system) Body temperature 96.7 [degF] 96.7 [degF] [facility] (Health system) Body height 57 [in_i] 57 [in_i] [facility] ([facility]) 4'9" Body weight 105.00 [lb_av] 105.00 [lb_av] MEDEN T (Health system) Body mass index (BMI) [Ratio] 22.7 kg/m2 22.7 k g/m2 [facility] (Health system) [place] body weight 100 [lb_av] 100 [lb_av] MEDEN T (Health system) Body weight 47.628 kg 47.628 kg [facility] ([facility]) Body surface area Derived from formula 1.37 m2 1.37 m2 [facility] (Health system) Diastolic blood pressure 70 mm[Hg] 70 mm[Hg] [facility] ([facility]) Body weight 99.50 [lb_av] 99.50 [lb_av] [facility] ([facility]) Heart rate 91 /min 91 /min [facility] ([facility]) Body mass index (BMI) [Ratio] 21.1 kg/m2 21.1 k g/m2 [facility] ([facility]) Respiratory rate 18 /min 18 /min [facility] ( [facility]) Body temperature 96.7 [degF] 96.7 [degF] [facility] ([facility]) [place] body weight 100 [lb_av] 100 [lb_av] MEDEN T ([facility]) Oxygen saturation in Arterial blood by Pulse oximetry 97 % 97 % [facility] ([facility]) Systolic blood pressure 158 mm[Hg] 158 mm[Hg] [facility] Body height 57.6 [in_i] 57.6 [in_i] [facility] ([facility]) 4'9.60" Body weight 100 [lb_av] 100 [lb_av] eCW1 [facility] Body height [in_i] eCW1 ([facility]) Body mass index (BMI) [Ratio] 20.20 kg/m2 20.20 kg/m2 eCW1 ([facility]) Systolic blood pressure 120 mm[Hg] 120 mm[Hg] e CW1 ([facility]) Diastolic blood pressure 72 mm[Hg] 72 mm[Hg] eCW1 ([facility]) Systolic blood pressure 102 mm[Hg] 102 mm[Hg] [facility] Diastolic blood pressure 56 mm[Hg] 56 mm[Hg] [facility] Heart rate 80 /min 80 /min [facility] Body height 149.9 cm 149.9 cm [facility] Body weight 44.906 kg 44.906 kg [facility] Body mass index (BMI) [Ratio] 20.00 kg/m2 20.00 kg/m2 [facility] Oxygen saturation in Arterial blood by Pulse oximetry 96 % 96 % [facility] Systolic blood pressure 112 mm[Hg] 112 mm[Hg] [facility] Diastolic blood pressure 60 mm[Hg] 60 mm[Hg] [facility] Body height 149.9 cm 149.9 cm [facility] Body weight 43.999 kg 43.999 kg [facility] Body mass index (BMI) [Ratio] 19.59 kg/m2 19.59 kg/m2 [facility] Body temperature 96.8 [degF] 96.8 [degF] MEDENT ([facility]) Heart rate 78 /min 78 /min MEDENT ([facility]) Respiratory rate 18 /min 18 /min MEDENT ( [facility]) Oxygen saturation in Arterial blood by Pulse oximetry 95 % 95 % MEDENT ([facility]) Body mass index (BMI) [Ratio] 20.6 kg/m2 20.6 k g/m2 MEDENT ([facility]) Body weight 97.00 [lb_av] 97.00 [lb_av] MEDENT ([facility] [place] body weight 100 [lb_av] 100 [lb_av] MEDEN T ([facility]) Systolic blood pressure 132 mm[Hg] 132 mm[Hg] M EDENT ([facility]) Diastolic blood pressure 64 mm[Hg] 64 mm[Hg] [facility] Body height 57.6 [in_i] 57.6 [in_i] [facility] ([facility]) 4'9.60" Systolic blood pressure 164 mm[Hg] 164 mm[Hg] [facility] Diastolic blood pressure 90 mm[Hg] 90 mm[Hg] [facility] Heart rate 81 /min 81 /min [facility] Body height 149.9 cm 149.9 cm [facility] Body weight 43.999 kg 43.999 kg [facility] Body mass index (BMI) [Ratio] 19.59 kg/m2 19.59 kg/m2 [facility] Oxygen saturation in Arterial blood by Pulse oximetry 93 % 93 % [facility] Respiratory rate 18 /min 18 /min [facility] ( [facility]) Body height 57.6 [in_i] 57.6 [in_i] [facility] ([facility]) 4'9.60" Systolic blood pressure 220 mm[Hg] 220 mm[Hg] M EDKRISTEN ([facility]) Diastolic blood pressure 93 mm[Hg] 93 mm[Hg] [facility] Body weight 104.50 [lb_av] 104.50 [lb_av] MEDEN T ([facility]) Body mass index (BMI) [Ratio] 22.1 kg/m2 22.1 k g/m2 [facility] ([facility]) Heart rate 88 /min 88 /min [facility] ([facility]) Body temperature 98.2 [degF] 98.2 [degF] [facility] ([facility]) Oxygen saturation in Arterial blood by Pulse oximetry 95 % 95 % [facility] ([facility]) [place] body weight 100 [lb_av] 100 [lb_av] MEDEN T ([facility]) Body weight 105.0 [lb_av] 105.0 [lb_av] eCW1 ([facility]) Body height [in_i] eCW1 ([facility]) Body mass index (BMI) [Ratio] 21.21 kg/m2 21.21 kg/m2 eCW1 ([facility]) Systolic blood pressure 124 mm[Hg] 124 mm[Hg] e CW1 ([facility]) Diastolic blood pressure 78 mm[Hg] 78 mm[Hg] eCW1 ([facility]) Heart rate 71 /min 71 /min MEDENT ([facility]) Respiratory rate 16 /min 16 /min [facility] ( [facility]) Body temperature 97.3 [degF] 97.3 [degF] [facility] Oxygen saturation in Arterial blood by Pulse oximetry 98 % 98 % MEDKRISTEN ([facility]) [place] body weight 100 [lb_av] 100 [lb_av] MEDEN T ([facility]) Systolic blood pressure 137 mm[Hg] 137 mm[Hg] M EDENT ([facility]) lay 142/82, sit 160/90, standing 168/90 Diastolic blood pressure 90 mm[Hg] 90 mm[Hg] [facility] lay 142/82, sit 160/90, standing 168/90 Body height 57.6 [in_i] 57.6 [in_i] REBECA ([facility]) 4'9.60" Body weight 103.00 [lb_av] 103.00 [lb_av] MEDEN T ([facility]) Body mass index (BMI) [Ratio] 21.8 kg/m2 21.8 k g/m2 MEDKRISTEN ([facility]) Patient Treatment Plan of Care Planned Activity Planned Date Details Description Data Source (s) Losartan Potassium 100 MG Oral Tablet 02/02/2021 12:00:00 AM EDT [facility] Furosemide 40 MG Oral Tablet 01/28/2021 12:00:00 AM EDT [facility] rivaroxaban 20 MG Oral Tablet 01/27/2021 12:00:00 AM EDT [facility] normal saline flush 0.9 % injection 3 mL 01/26/2021 03:00:00 PM EDT [facility] normal saline flush 0.9 % injection 3 mL 01/26/2021 02:00:00 PM EDT [facility] normal saline flush 0.9 % injection 3 mL 01/26/2021 02:00:00 PM EDT [facility] Nitroglycerin 0.4 MG Sublingual Tablet 01/26/2021 12:04:00 PM EDT [facility] Acetaminophen 325 MG Oral Tablet 01/26/2021 12:04:00 PM EDT [facility] clopidogrel 75 MG Oral Tablet 01/18/2021 12:00:00 AM EDT [facility] Labetalol hydrochloride 100 MG Oral Tablet 01/13/2021 12:00:00 AM E DT [facility] Labetalol hydrochloride 100 MG Oral Tablet 01/08/2021 12:00:00 AM E DT [facility] Amylases 67144 UNT / Endopeptidases 6300 0 UNT / Lipase 12102 UNT Delayed Release Oral Capsule [Zenpep] 12/17/2020 12:00:00 AM EDT [facility] Digestive Enzymes (LIPASE CONCENTRATE-HP PO) 12/16/2020 12:00:00 AM EDT [facility] Furosemide 20 MG Oral Tablet 06/25/2020 12:00:00 AM EST [facility] Labetalol hydrochloride 100 MG Oral Tablet 06/25/2020 12:00:00 AM E [facility] Levothyroxine Sodium 0.075 MG Oral Tablet 04/02/2020 12:00:00 AM ES T [facility] Chlorthalidone 25 MG Oral Tablet 04/02/2020 12:00:00 AM EST [facility] Amlodipine 10 MG Oral Tablet 04/02/2020 12:00:00 AM EST [facility] Furosemide 20 MG Oral Tablet 04/02/2020 12:00:00 AM EST [facility] Labetalol hydrochloride 100 MG Oral Tablet 04/02/2020 12:00:00 AM E [facility] Losartan Potassium 50 MG Oral Tablet 04/02/2020 12:00:00 AM EST [facility] Chlorthalidone 25 MG Oral Tablet 03/25/2020 12:00:00 AM EST [facility] Amlodipine 10 MG Oral Tablet 03/25/2020 12:00:00 AM EST [facility] Levothyroxine Sodium 0.075 MG Oral Tablet 03/20/2020 12:00:00 AM ES T [facility] Amlodipine 2.5 MG Oral Tablet 03/20/2020 12:00:00 AM EST [facility] Mupirocin 0.02 MG/MG Topical Ointment 03/05/2020 12:00:00 AM EST [facility] Mupirocin 0.02 MG/MG Topical Ointment 03/05/2020 12:00:00 AM EST eCW1 ([facility]) Mupirocin 0.02 MG/MG Topical Ointment 03/05/2020 12:00:00 AM EST eCW1 ([facility]) Mupirocin 0.02 MG/MG Topical Ointment 03/05/2020 12:00:00 AM EST eCW1 ([facility]) doxycycline hyclate 100 MG Oral Capsule 03/03/2020 12:00:00 AM EST eCW1 ([facility]) doxycycline hyclate 100 MG Oral Capsule 03/03/2020 12:00:00 AM EST eCW1 ([facility]) doxycycline hyclate 100 MG Oral Capsule 03/03/2020 12:00:00 AM EST eCW1 ([facility]) doxycycline hyclate 100 MG Oral Capsule 03/03/2020 12:00:00 AM EST eCW1 ([facility]) rivaroxaban 20 MG Oral Tablet 10/06/2019 12:00:00 AM EDT [facility] Levothyroxine Sodium 0.05 MG Oral Tablet 08/05/2019 12:00:00 AM EDT [facility] Labetalol hydrochloride 100 MG Oral Tablet 04/23/2019 12:00:00 AM E [facility] Losartan Potassium 50 MG Oral Tablet 02/22/2019 12:00:00 AM EDT [facility] rivaroxaban 20 MG Oral Tablet [facility] Losartan Potassium 50 MG Oral Tablet [facility] ferrous sulfate 325 MG Oral Tablet [facility] Labetalol hydrochloride 100 MG Oral Tablet [facility] Furosemide 20 MG Oral Tablet [facility] Furosemide 40 MG Oral Tablet [facility]
[2021-02-27 21:36] LABS: ALBUMIN 2.9 GM/DL (3.2-5.2); ALT/SGPT 22 U/L (12-78); BILIRUBIN,DIRECT 0.1 MG/DL (0.0-0.2); BILIRUBIN,TOTAL 0.4 MG/DL (0.2-1.0); BLOOD UREA NITROGEN 13 MG/DL (7-18); CALCIUM LEVEL 8.2 MG/DL (8.8-10.2); CARBON DIOXIDE LEVEL 26 MEQ/L (21-32); CHLORIDE LEVEL 110 MEQ/L (98-107); CK-MB VALUE MASS 2.3 NG/ML (<3.6); CPK CREATINE PHOSPHOKINASE 71 U/L (26-192); CREATININE FOR GFR 0.71 MG/DL (0.55-1.30); FREE T4 1.05 NG/DL (0.76-1.46); GLOMERULAR FILTRATION RATE > 60.0 (>32); GLUCOSE, FASTING 107 MG/DL (70-100); LIPASE 17 U/L (73-393); MAGNESIUM LEVEL 1.9 MG/DL (1.8-2.4); MB/CK RELATIVE INDEX 3.24 (< OR =4); POTASSIUM SERUM 4.1 MEQ/L (3.5-5.1); SODIUM LEVEL 141 MEQ/L (136-145); TOTAL PROTEIN 6.5 GM/DL (6.4-8.2); TROPONIN I < 0.02 NG/ML (< 0.10)
[2021-02-27 21:43] LABS: RSV AMPLIFICATION NEGATIVE (NEGATIVE)
[2021-02-27] MEDS ORDERED: LOSA100T50 PO (21:49)
[2021-02-27] MEDS ORDERED: HOME MED LIST COMPLETE! XX SCH (21:50)
[2021-02-27] MEDS ORDERED: ONDANSETRON 4 MG ORAL DISINTEGRATING TAB PO PRN (21:50)
--- OUTSIDE RECORDS SUMMARY | 2021-02-27 22:02 | CCD ---
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 Name Role Phone LUANN, Trevor CHAVARRIA Unavailable [...] GONZALES MD Unavailable Unavailab le CYNTHIA (TENA), Brianen GONZALES MD Unavailable Unavailab le CYNTHIA (TENA), [...] MD Unavailable Unavailab le CYNTHIA (TENA), Brianne OGNZALES MD Unavailable Unavailab le CYNTHIA (TENA), Brianne [...] Unavailable Unavailable EMMA-DOMINGUEZ, GLADIS DO Unavailable Unavailable EMMA-DOMINGEUZ, GLADIS DO Unavailable Unavailable EMMA-DOMINGUEZ, GLADIS DO [...] Unavailable Unavailable Javier, Mauri PA Unavailable Unavailable Javire, Mauri PA Unavailable Unavailable Javier, Mauri PA [...] Unavailable Rechlin, P Deangelo DO Unavailable Unavailable [place], V GUILLERMO PA-C Unavailable Unavailable [place], V GUILLERMO PA-C Unavailable Unavailable Maris, V GUILLERMO PA-C Unavailable Unavailable [place], V GUILLERMO PA-C Unavailable Unavailable [place], V GUILLERMO PA-C Unavailable Unavailable [place], V GUILLERMO PA-C Unavailable Unavailable [place], V GUILLERMO PA-C Unavailable Unavailable [place], V GUILLERMO PA-C Unavailable Unavailable [place], V GUILLERMO PA-C Unavailable Unavailable [place], V GUILLERMO PA-C Unavailable Unavailable [place], V GUILLERMO PA-C Unavailable Unavailable Maris, V [...] is protected by Article 27-F of the [facility] Public Health law. If you continue you may have access to information: Regarding HIV / AIDS; Provided by facilities licensed or operated by the [facility] Office of Mental Health; or Provided by the [facility] Office for People With Developmental Disabilities. If such information is present, then the following [facility] mandated warning applies: This information has been [...] law may result in a fine or correction sentence or both. A general authorization for the release of medical or other information is NOT sufficient authorization for further disc losure. Family History Family Member Name Family Member Gender Family Member Status Date o f Status Description Data Source(s) Unknown Unknown Problem MEDENT ([facility], ) Unknown Female Problem MEDENT ([facility]) Unknown Female Encounters Encounter Providers Location Date Indications Data Source(s ) Outpatient Attender: GLADIS CORONADO [facility] 02/22/2021 11:40:00 AM EDT MEDENT ([facility]) Outpatient Attender: GLADIS CORONADO [facility] 02/11/2021 01:20:00 PM EDT MEDENT ([facility]) [facility]: [facility] 01:10:00 PM EDT MEDENT ([facility]) Outpatient Attender: GUILLERMO CORDOVA-SJPDorisAUDREY 08/2020 12:00:00 AM EDT [facility] Outpatient Attender: GLADIS CORONADO [facility] 01/28/2021 02:40:00 PM EDT MEDENT ([facility]) Outpatient Attender: Taylor Barragan MDAdmitter: Taylor whitfield MD [email or web address] 01/26/2021 06:49:00 AM EDT - 01/26/2021 02:20:00 PM EDT [facility] Patient discharged. Outpatient Attender: GUILLERMO CORDOVA-SJPDorisAUDREY 07:05:17 AM EDT - 01/18/2021 08:02:58 AM EDT [facility] Outpatient Attender: GUILLERMO RODRIGUEZCReferrer: CARMITA CORDOVA-SJPDorisAUDREY 12/21/2020 12:00:00 AM EDT - 12/21/2020 10:11:56 AM EDT [facility] Outpatient Referrer: GUILLERMO HYMANSJSONIA 12:00:00 AM EDT [facility] Outpatient Attender: GLADIS CORONADO DO [facility] 12/02/2020 09:40:00 AM EDT MEDENT ([facility]) Outpatient Attender: Deangelo Valle/Kim/Neil/Laith ndl 11/30/2020 09:00:00 AM EDT MEDENT ([facility], ) Attender: CHRISTIAN FLORES) MDReferrer: D [...] [facility] Outpatient Attender: Mauri CHAVARRIA [facility] 11/12/2020 10:00:00 AM EDT MEDENT ([facility]) ([id number]) For Template [facility] [address] [place] [address] 10/27/2020 12:00:00 AM EDT eCW1 ([facility]) Outpatient Attender: Mauri CHAVARRIA [facility] 10/20/2020 01:40:00 PM EDT MEDENT ([facility]) Outpatient [address] [facility] [id number] 10/20/2020 12:00:00 AM EDT eCW1 ([facility]) Outpatient [address] [facility] [id number] 10/13/2020 12:00:00 AM EDT eCW1 ([facility]) ([id number]) For [facility] [address] [place] [phone] 10/06/2020 12:00:00 AM EDT eCW1 ([facility]) Office Visit, Est Pt., Level 3 PC [address] [place] [address] 10/05/2020 12:00:00 AM EDT eCW1 (formerly [facility]) Outpatient [address] [facility] [id number] 09/29/2020 12:00:00 AM EDT eCW1 ([facility]) ([id number]) For [facility] [address] [place] [phone] 09/22/2020 12:00:00 AM EDT eCW1 ([facility]) ([id number]) For [facility] [address] [place] [phone] 09/15/2020 12:00:00 AM EDT eCW1 ([facility]) Outpatient Attender: GLADIS CORONADO DO Family [facility] 09/08/2020 10:00:00 AM EDT MEDENT ([facility] y Medicine [facility]) Outpatient [address] [facility] [id number] 09/07/2020 12:00:00 AM EDT eCW1 ([facility]) Unknown [address] [place] [phone] 09/02/2020 12:00:00 AM EDT eCW1 ([facility]) (WND [id number]) New Patient 120 Min [address] [place] [address] 08/25/2020 12:00:00 AM EDT eCW1 ([facility]) Outpatient Attender: GLADIS CORONADO [facility] 08/18/2020 01:40:00 PM EDT MEDENT ([facility]) Unknown [address] [facility] [place] [address] 08/17/2020 12:00:00 AM EDT eCW1 ([facility]) Outpatient Attender: ELVIN steinberg 08/16/2020 09:05:00 AM EDT MEDENT ([facility]) Outpatient Attender: GUILLERMO SANDRA.MICAELA 10:29:41 AM EST - 06/25/2020 11:53:51 AM EST [facility] Outpatient [address] [facility] [id number] 06/22/2020 12:00:00 AM EST eCW1 ([facility]) Outpatient Attender: GLADIS CORONADO [facility] 06/11/2020 09:30:00 AM EST MEDENT ([facility]) Outpatient [address] [facility] [id number] 06/09/2020 12:00:00 AM EST eCW1 ([facility]) Outpatient [address] [facility] [place] [address] 05/14/2020 12:00:00 AM EST eCW1 ([facility]) Outpatient Attender: GLADIS CORONADO [facility] 05/11/2020 10:20:00 AM EST MEDENT ([facility]) (MMS 1) [facility] [address] [facility] [place] [address] 05/07/2020 12:00:00 AM EST eCW1 ([facility]) Outpatient Attender: GUILLERMO SANDRA.AUDREY-SJP.AUDREY 06/2019 12:00:00 AM EST [facility] Outpatient Attender: GLADIS CORONADO [facility] 03/30/2020 09:00:00 AM EST MEDENT ([facility]) Outpatient Attender: GUILLERMO SANDRA.AUDREY-SJP.AUDREY 12:00:00 AM EST - 03/30/2020 12:09:50 PM EST [facility] Unknown [address] [facility] [place] [address] 03/30/2020 12:00:00 AM EST eCW1 ([facility]) Outpatient Attender: GUILLERMO SANDRA.AUDREY-SJP.AUDREY 12:00:00 AM EST - 03/25/2020 04:51:02 PM EST [facility] Outpatient Attender: GLADIS CORONADO [facility] 03/19/2020 01:30:00 PM EST MEDENT ([facility]) Unknown [address] [facility] [address] 03/05/2020 12:00:00 AM EST eCW1 ([facility]) Unknown [address] [facility] [place] [address] 03/03/2020 12:00:00 AM EST eCW1 ([facility]) Outpatient [address] [facility] [address] 02/26/2020 12:00:00 AM EDT eCW1 ([facility]) Unknown [address] [facility] [place] [address] 02/26/2020 12:00:00 AM EDT eCW1 ([facility]) Outpatient Attender: GLADIS CORONADO [facility] 02/17/2020 03:00:00 PM EDT MEDENT ([facility]) Immunizations Vaccine Date Status Description Data Source(s) COVID-19 VACC, MRNA(PFIZER)/PF 01/28/2021 12:00:00 AM EDT completed [facility] COVID-19 VACCINE Pfizer 01/28/2021 12:00:00 AM EDT completed [facility] Vaccine Series Complete: YESThis Data wa s Submitted to [facility]. COVID-19 VACCINE Pfizer 06/15/2020 12:00:00 AM EST completed [facility] Vaccine Series Complete: YESThis Data wa s Submitted to [facility] [employer]. COVID-19 VACCINE Pfizer 05/25/2020 12:00:00 AM EST completed [facility] Vaccine Series Complete: NOThis Data was Submitted to [facility] [employer]. Medications Medication Brand Name Start Date Product Form Dose Route Admi nistrative Instructions Pharmacy Instructions Status Indications Reaction Description Data Source(s) 2 mg 02/12/2021 12:00:00 AM EDT capsule 180 TAKE 1-2 CAPSULES BY MOUTH ONCE DAILY NEEDED TAKE 1-2 CAPSULES BY MOUTH ONCE DAILY NEEDED SOLD: 02/13/2021 [facility] Sucralfate 1000 MG Oral Tablet Sucralfate 02/11/2021 12:00:00 AM EDT ORAL active MEDENT ([facility]) 1 gram 02/11/2021 12:00:00 AM EDT [...] 02/04/2021 12:00:00 AM EDT ORAL active MEDENT ([facility]) Sucralfate 100 MG/ML Oral Suspension Sucralfate 02/04/2021 12:00:00 A M EDT ORAL completed MEDENT ([facility]) 100 mg 02/03/2021 12:00:00 AM EDT tablet 30 TAKE ONE TABLET BY MOUTH EVERY DAY TAKE ONE TABLET BY MOUTH EVERY DAY SOLD: 02/04/2021 [facility] Losartan Potassium 100 MG Oral Tablet losartan (COZAAR ) 100 MG tablet losartan (COZAAR) 100 MG tablet 02/02/2021 12:00:00 AM EDT 100 mg Oral active Take 1 tablet (100 mg total) by mouth daily [facility] Levothyroxine Sodium 0.075 MG Oral Tablet Levothyroxine Sodi um 01/28/2021 12:00:00 AM EDT ORAL active M EDENT ([facility]) Furosemide 40 MG Oral Tablet furosemide (LASIX) 40 MG tablet furosemide (LASIX) 40 MG tablet 01/28/2021 12:00:00 AM EDT 40 mg active 40 mg daily [facility] 40 mg 01/28/2021 12:00:00 AM EDT tablet 180 TAKE TWO TABLETS BY MOUTH EVERY DAY TAKE TWO TABLETS BY MOUTH EVERY DAY SOLD: 01/28/2021 [facility] rivaroxaban 20 MG Oral Tablet rivaroxaban (Xarelto) 20 MG TABS rivaroxaban (Xarelto) 20 MG TABS 01/27/2021 12:00:00 AM EDT 20 mg Oral active Take 1 tablet (20 mg total) by mouth daily [facility] normal saline flush 0.9 % injection 3 mL [id number] 01/26/2021 03:00:00 PM EDT 3 mL Intravenous active 3 mL , Intravenous, PROTOCOL, First dose on Mon01/26/21 at 1500, Pre-op
flush per protocol, D/C Main IV fluid if appropriate
[facility] Medication administered onsite normal saline flush 0.9 % injection 3 mL [id number] 01/26/2021 02:00:00 PM EDT 3 mL Intravenous active 3 mL , Intravenous, Every 8 hours (scheduled), First dose on Mon01/26/21 at 1400, Pre-op
Rapid push positive pressure flushing shall be performed with a 10 cc normal saline syringe to check the PATENCY of a PIV site prior to any infusion therapy initiation unless resistance is met.
[facility] Medication administered onsite normal saline flush 0.9 % injection 3 mL [id number] 01/26/2021 02:00:00 PM EDT 3 mL Intravenous active 3 mL , Intravenous, Every 8 hours (scheduled), First dose on Mon01/26/21 at 1400, Pre-op
Rapid push positive pressure flushing shall be performed with a 10 cc normal saline syringe to check the PATENCY of a PIV site prior to any infusion therapy initiation unless resistance is met.
[facility] Medication administered onsite sodium chloride 0.9% (NS) infusion 4401-1346-21 01/26/2021 01:00:00 PM EDT 100 mL/h Intravenous active at 100 m L/hr, 100 mL/hr, Intravenous, Continuous, Starting on Mon01/26/21 at 1300, Pre-op
Start two hours prior to scheduled start time
[facility] Medication administered onsite Nitroglycerin 0.4 MG Sublingual Tablet n itroglycerin (NITROSTAT) SL tablet 0.4 mg nitroglycerin (NITROSTAT) SL tablet 0.4 mg 01/26/2021 12:04:00 P M EDT 0.4 mg Sublingual active 0.4 mg, S ublingual, Every 5 min PRN, chest pain, Starting on Mon01/26/21 at 1204, Post-op
May administer every 5 minutes for 3 doses and call cardio lab MD.
[facility] Medication administered onsite Acetaminophen 325 MG [...] mg from all sources in 24 hours."
[facility] Medication administered onsite ondansetron (ZOFRAN) injection 4 mg [id number] 01/26/2021 12:00:0 0 PM EDT 4 mg Intravenous completed 4 mg, In travenous, Once, On Mon01/26/21 at 1200, For 1 dose [facility] Medication administered onsite iopamidol (ISOVUE-370) 76 % [id number] 01/26/2021 10:47:22 AM EDT active As needed, Starting on Mon01/26/21 at 1047, Intra-Proc edure [facility] Medication administered onsite lidocaine 1 % injection [id number] 01/26/2021 10:29:38 AM EDT active As needed, Starting on Mon at 1029, Intra-Procedure [facility] Medication administered onsite fentaNYL Citrate (PF) (SUBLIMAZE) injection [id number] 01/26/2021 10:29:05 AM EDT active As neede d, Starting on Mon01/26/21 at 1029, Intra-Procedure [facility] Medication administered onsite 2 ML Midazolam 1 MG/ML Injection midazolam (VERSED) in jection midazolam (VERSED) injection 01/26/2021 10:28:57 AM EDT active As needed, Starting on Mon01/26/21 at 1028, Intra-Procedure [facility] Medication administered onsite clopidogrel 75 MG Oral Tablet clopidogrel (PLAVIX) 75 MG tablet clopidogrel (PLAVIX) 75 MG tablet 01/18/2021 12:00:00 AM EDT 75 mg Oral aborted Take 1 tablet (75 mg total) by mouth See Admin Instructions Please take four 75mg tabs of Plavix (300mg total) the night before the procedure. [facility] 75 mg 01/18/2021 12:00:00 AM EDT tablet 4 TAKE 4 TABLETS BY MOUTH THE NIGHT BEFORE PROCEDURE TAKE 4 TABLETS BY MOUTH THE NIGHT BEFORE PROCEDURE [facility] Labetalol hydrochloride 100 MG Oral Tablet labetalol ( NORMODYNE) 100 MG tablet labetalol (NORMODYNE) 100 MG tablet 01/13/2021 12:00:00 AM EDT active TAKE ONE TABLET BY MOUTH TWICE A DAY [facility] Labetalol hydrochloride 100 MG Oral Tablet [...] by mouth 2 (two) times a day [facility] 240 mcg/0.7 mL 12/29/2020 12:00:00 AM EDT syringe 0 INJECT DIRECTED INJECT DIRECTED SOLD: 12/29/2020 [facility] 20 mg 12/22/2020 12:00:00 AM EDT tablet 90 TAKE ONE TABLET BY MOUTH EVERY DAY TAKE ONE TABLET BY MOUTH EVERY DAY SOLD: 12/29/2020 [facility] Amylases 12833 UNT / Endopeptidases 6300 0 UNT / Lipase 18779 UNT Delayed Release Oral Capsule [Zenpep] Zenpep 62705-28325 units CPEP capsule Zenpep 35625-38841 units CPEP capsule 12/17/2020 12:00:00 AM EDT active TAKE THREE CAPSULES BY MOUTH THREE TIMES A DAY WITH MEALS AND 1 WITH SNACKS [facility] Digestive Enzymes (LIPASE CONCENTRATE-HP PO) drug or medicat ion 12/16/2020 12:00:00 AM EDT aborted [facility] 1,250 mcg (50,000 unit) 11/04/2020 12:00:00 [...] WITH EACH MEAL DI RECTED SOLD: 09/01/2020 [facility] Acetaminophen 325 MG / Hydrocodone Bitartrate [...] 08/18/2020 12:00:00 AM EDT ORAL completed MEDENT ([facility]) silver sulfadiazine 10 MG/ML Topical Cream [SSD] SILVER SULF ADIAZINE 08/16/2020 12:00:00 AM EDT cream 50 APPLY TO LEFT LOWER LEG D AILY FOR 10 - 14 DAYS APPLY TO LEFT LOWER LEG DAILY FOR 10 - 14 DAYS SOLD: 08/17/2020 [facility] silver sulfadiazine 10 MG/ML Topical Cream [Silvadene] Saeed dene 08/16/2020 12:00:00 AM EDT active M EDENT ([facility]) 10 mg 07/29/2020 12:00:00 AM EDT tablet [...] 07/29/2020 12:00:00 AM EDT ORAL completed MEDENT ([facility], ) Ciprofloxacin 250 MG Oral Tablet Ciprofloxacin HCL 07/29/2020 12:00 :00 AM EDT ORAL completed MEDENT ([facility], ) Furosemide 20 MG Oral Tablet furosemide (LASIX) 20 MG tablet furosemide (LASIX) 20 MG tablet 06/25/2020 12:00:00 AM EST 20 mg Oral activ e Take 1 tablet (20 mg total) by mouth daily as needed [facility] Labetalol hydrochloride 100 MG Oral Tablet labetalol ( NORMODYNE) 100 MG tablet labetalol (NORMODYNE) 100 MG tablet 06/25/2020 12:00:00 AM EST 100 mg Oral active Take 1 tablet (100 mg total) by mouth 2 (two) times a day [facility] Labetalol hydrochloride 100 MG Oral Tablet [...] 06/15/2020 12:00:00 AM EST completed MEDENT ([facility]) Medication administered onsite 1,000 [...] AM EST ORAL active MEDENT ([facility]) 10 mg 05/28/2020 12:00:00 AM EST tablet [...] Unspecified 05/25/2020 12:00:00 AM EST completed MEDENT ([facility], ) Medication administered onsite rivaroxaban 20 MG Oral Tablet [Xarelto] Xarelto 05/11/2020 12:00:0 0 AM EST ORAL active MEDENT ([facility]) 160-4.5 mcg/actuation 04/29/2020 12:00:00 AM EST HFA [...] y mouth 2 (two) times a day [facility] Furosemide 20 MG Oral Tablet furosemide (LASIX) 20 MG tablet furosemide (LASIX) 20 MG tablet 04/02/2020 12:00:00 AM EST 20 mg Oral activ e Take 1 tablet (20 mg total) by mouth as needed [facility] Chlorthalidone 25 MG Oral Tablet chlorthalidone (HYGRO TEN) 25 MG tablet chlorthalidone (HYGROTEN) 25 MG tablet 04/02/2020 12:00:00 AM EST 5 0 mg Oral active Take 2 tablets (50 mg tot al) by mouth daily [facility] Amlodipine 10 MG Oral Tablet amLODIPine (NORVASC) 10 M G tablet amLODIPine (NORVASC) 10 MG tablet 04/02/2020 12:00:00 AM EST 10 mg Oral aborted Take 1 tablet (10 mg total) by mouth At bedtime sliding scale [facility] Levothyroxine Sodium 0.075 MG Oral Table t levothyroxine (SYNTHROID, LEVOTHROID) 75 MCG tablet levothyroxine (SYNTHROID, LEVOTHROID) 75 MCG tablet 12:00:00 AM EST 75 ug Oral active Take 1 tablet (75 mcg total) by mouth daily [facility] Losartan Potassium 50 MG Oral Tablet losartan (COZAAR) 50 MG tablet losartan (COZAAR) 50 MG tablet 04/02/2020 12:00:00 AM EST 50 mg Oral active Take 1 tablet (50 mg total) by mouth daily [facility] 10 mg 03/25/2020 12:00:00 AM EST [...] aborted Take 50 mg by mouth daily [facility] Amlodipine 10 MG Oral Tablet amLODIPine (NORVASC) 10 M G tablet amLODIPine (NORVASC) 10 MG tablet 03/25/2020 12:00:00 AM EST 10 mg Oral aborted Take 10 mg by mouth [facility] 75 mcg 03/20/2020 12:00:00 AM EST [...] Oral aborted Take 75 mcg by mouth [facility] 50 mg 03/20/2020 12:00:00 AM EST tablet 90 TAKE ONE TABLET BY MOUTH EVERY DAY TAKE ONE TABLET BY MOUTH EVERY DAY SOLD: 12/22/2020 [facility] Amlodipine 2.5 MG Oral Tablet amLODIPine (NORVASC) 2.5 MG tablet amLODIPine (NORVASC) 2.5 MG tablet 03/20/2020 12:00:00 AM EST 2.5 mg Oral aborted Take 2.5 mg by mouth [facility] Levothyroxine Sodium 0.075 MG Oral Tablet Levothyroxine Sodi um 03/19/2020 12:00:00 AM EST ORAL active M EDENT ([facility]) Mupirocin 0.02 MG/MG Topical Ointment Mupirocin 2 % Mupiroci n 2 % 03/05/2020 12:00:00 AM EST 1.0 {application} active Mupirocin 2 % eCW1 ([facility]) Mupirocin 0.02 MG/MG Topical Ointment Mupirocin 2 % Mupiroci n 2 % 03/05/2020 12:00:00 AM EST 1.0 {application} active Mupirocin 2 % eCW1 ([facility]) Mupirocin 0.02 MG/MG Topical Ointment Mupirocin 2 % Mupiroci n 2 % 03/05/2020 12:00:00 AM EST 1.0 {application} active Mupirocin 2 % eCW1 ([facility]) Mupirocin 0.02 MG/MG Topical Ointment Mupirocin 2 % Mupiroci n 2 % 03/05/2020 12:00:00 AM EST 1.0 {application} active Mupirocin 2 % eCW1 ([facility]) Mupirocin 0.02 MG/MG Topical Ointment Mupirocin 2 % Mupiroci n 2 % 03/05/2020 12:00:00 AM EST 1.0 {application} active Mupirocin 2 % eCW1 ([facility]) Mupirocin 0.02 MG/MG Topical Ointment Mupirocin 2 % Mupiroci n 2 % 03/05/2020 12:00:00 AM EST 1.0 {application} active Mupirocin 2 % eCW1 ([facility]) Mupirocin 0.02 MG/MG Topical Ointment Mupirocin 2 % Mupiroci n 2 % 03/05/2020 12:00:00 AM EST 1.0 {application} active Mupirocin 2 % eCW1 ([facility]) Mupirocin 0.02 MG/MG Topical Ointment Mupirocin 2 % Mupiroci n 2 % 03/05/2020 12:00:00 AM EST 1.0 {application} active Mupirocin 2 % eCW1 ([facility]) Mupirocin 0.02 MG/MG Topical Ointment Mupirocin 2 % Mupiroci n 2 % 03/05/2020 12:00:00 AM EST 1.0 {application} active Mupirocin 2 % eCW1 ([facility]) Mupirocin 0.02 MG/MG Topical Ointment Mupirocin 2 % Mupiroci n 2 % 03/05/2020 12:00:00 AM EST 1.0 {application} active Mupirocin 2 % eCW1 ([facility]) Mupirocin 0.02 MG/MG Topical Ointment Mupirocin 2 % Mupiroci n 2 % 03/05/2020 12:00:00 AM EST 1.0 {application} active Mupirocin 2 % eCW1 ([facility]) Mupirocin 0.02 MG/MG Topical Ointment Mupirocin 2 % Mupiroci n 2 % 03/05/2020 12:00:00 AM EST 1.0 {application} active Mupirocin 2 % eCW1 ([facility]) Mupirocin 0.02 MG/MG Topical Ointment mupirocin (BACTR OBAN) 2 % ointment mupirocin (BACTROBAN) 2 % ointment 03/05/2020 12:00:00 AM EST active APPLY 1 APPLICATION THREE TIMES A DAY FO R 14 DAYS [facility] Mupirocin 0.02 MG/MG Topical Ointment Mupirocin 2 % Mupiroci n 2 % 03/05/2020 12:00:00 AM EST 1.0 {application} active Mupirocin 2 % eCW1 ([facility]) Mupirocin 0.02 MG/MG Topical Ointment Mupirocin 2 % Mupiroci n 2 % 03/05/2020 12:00:00 AM EST 1.0 {application} active Mupirocin 2 % eCW1 ([facility]) Mupirocin 0.02 MG/MG Topical Ointment Mupirocin 2 % Mupiroci n 2 % 03/05/2020 12:00:00 AM EST 1.0 {application} active Mupirocin 2 % eCW1 ([facility]) Mupirocin 0.02 MG/MG Topical Ointment Mupirocin 2 % Mupiroci n 2 % 03/05/2020 12:00:00 AM EST 1.0 {application} active Mupirocin 2 % eCW1 ([facility]) Mupirocin 0.02 MG/MG Topical Ointment Mupirocin 2 % Mupiroci n 2 % 03/05/2020 12:00:00 AM EST 1.0 {application} active Mupirocin 2 % eCW1 ([facility]) Mupirocin 0.02 MG/MG Topical Ointment Mupirocin 2 % Mupiroci n 2 % 03/05/2020 12:00:00 AM EST 1.0 {application} active Mupirocin 2 % eCW1 ([facility]) 2 % 03/05/2020 12:00:00 AM EST ointment 22 APPLY 1 APPLICATION THREE TIMES A DAY FOR 14 DAYS APPLY 1 APPLICATION THREE TIMES A DAY FOR 14 DAYS SOLD : 03/07/2020 [facility] Mupirocin 0.02 MG/MG Topical Ointment Mupirocin 2 % Mupiroci n 2 % 03/05/2020 12:00:00 AM EST 1.0 {application} active Mupirocin 2 % eCW1 ([facility]) doxycycline hyclate 100 MG Oral Capsule DOXYCYCLINE HYCLATE 03/03/2020 12:00:00 AM EST capsule 20 TAKE ONE CAPSULE BY MOUTH EV JUDIE 12 HOURS FOR 10 DAYS TAKE ONE CAPSULE BY MOUTH EVERY 12 HOURS FOR 10 DAYS SOLD: 03/03/2020 [facility] doxycycline hyclate 100 MG Oral Capsule Doxycycline Hy clate 100 MG Doxycycline Hyclate 100 MG 03/03/2020 12:00:00 AM EST 1.0 {capsule} suspended Doxycycline Hyclate 100 MG eCW1 ([facility]) doxycycline hyclate 100 MG Oral Capsule Doxycycline Hy clate 100 MG Doxycycline Hyclate 100 MG 03/03/2020 12:00:00 AM EST 1.0 {capsule} active Doxycycline Hyclate 100 MG eCW1 ([facility]) doxycycline hyclate 100 MG Oral Capsule Doxycycline Hy clate 100 MG Doxycycline Hyclate 100 MG 03/03/2020 12:00:00 AM EST 1.0 {capsule} active Doxycycline Hyclate 100 MG eCW1 ([facility]) doxycycline hyclate 100 MG Oral Capsule Doxycycline Hy clate 100 MG Doxycycline Hyclate 100 MG 03/03/2020 12:00:00 AM EST 1.0 {capsule} active Doxycycline Hyclate 100 MG eCW1 ([facility]) doxycycline hyclate 100 MG Oral Capsule Doxycycline Hy clate 100 MG Doxycycline Hyclate 100 MG 03/03/2020 12:00:00 AM EST 1.0 {capsule} active Doxycycline Hyclate 100 MG eCW1 ([facility]) 50 mcg 02/02/2020 12:00:00 AM EDT tablet 90 TAKE ONE TABLET BY MOUTH EVERY MORNING TAKE ONE TABLET BY MOUTH EVERY MORNING SOLD: 02/02/2020 [facility] 1,250 mcg (50,000 unit) 01/13/2020 12:00:00 AM [...] A WEEK SOLD: 02/02/2020 [facility] Ergocalciferol 70319 UNT Oral Capsule Vitamin D (Ergocalcife rol) 01/13/2020 12:00:00 AM EDT active M [facility] ([facility]) 1,250 mcg (50,000 unit) 01/13/2020 12:00:00 [...] BY MOUTH TWICE A DAY SOLD: 02/25/2020 [facility] rivaroxaban 20 MG Oral Tablet rivaroxaban (XARELTO) 20 MG TABS rivaroxaban (XARELTO) 20 MG TABS 10/06/2019 12:00:00 AM EDT 20 mg Oral aborted Take 1 tablet (20 mg total) by mouth daily [facility] 1,000 mcg/mL 08/27/2019 12:00:00 AM EDT solution 3 INJECT 1ML ONCE A MONTH INJECT 1ML ONCE A MONTH SOLD: 03/07/2020 [facility] Levothyroxine Sodium 0.05 MG Oral Tablet levothyroxine (SYNTHROID, LEVOTHROID) 50 MCG tablet levothyroxine (SYNTHROID, LEVOTHROID) 50 MCG tablet 12:00:00 AM EDT 1 {tbl} Oral aborted Take 1 tablet by mouth daily [facility] Clobetasol Propionate 0.5 MG/ML Topical Cream 0.05 % CLOBETA MICK PROPIONATE 08/05/2019 12:00:00 AM EDT cream 30 APPLY THIN LAYER TOPICALLY TO AFFECTED AREAS TWO TIMES A DAY NEEDED FOR FLARE UPS APPLY THIN LAYER TOPICALLY TO AFFECTED AREAS TWO TIMES A DAY NEEDED FOR FLARE UPS SOLD: 07/28/2020 [facility] Labetalol hydrochloride 100 MG Oral Tablet labetalol ( NORMODYNE) 100 MG tablet labetalol (NORMODYNE) 100 MG tablet 04/23/2019 12:00:00 AM EST 0.5 {tbl} Oral aborted Take 0.5 tablets by mouth 2 (two) times a day [facility] Losartan Potassium 50 MG Oral Tablet losartan (COZAAR) 50 MG tablet losartan (COZAAR) 50 MG tablet 02/22/2019 12:00:00 AM EDT 50 mg Oral aborted Take 50 mg by mouth daily [facility] rivaroxaban 20 MG Oral Tablet rivaroxaban (Xarelto) 20 MG TABS rivaroxaban (Xarelto) 20 MG TABS 20 mg Oral aborted Harsh e 20 mg by mouth daily [facility] Furosemide 40 MG Oral Tablet furosemide (LASIX) 40 MG tablet furosemide (LASIX) 40 MG tablet 20 mg Oral aborted Take 20 mg by mouth as needed [facility] Furosemide 20 MG Oral Tablet furosemide (LASIX) 20 MG tablet furosemide (LASIX) 20 MG tablet 20 mg Oral aborted Take 20 mg by mouth daily as needed [facility] Labetalol hydrochloride 100 MG Oral Tablet labetalol ( NORMODYNE) 100 MG tablet labetalol (NORMODYNE) 100 MG tablet 100 mg Oral ab orted Take 100 mg by mouth 2 (two) times a day [facility] Losartan Potassium 50 MG Oral Tablet losartan (COZAAR) 50 MG tablet losartan (COZAAR) 50 MG tablet 50 mg Oral aborted Ta ke 50 mg by mouth daily [facility] ferrous sulfate 325 MG Oral Tablet ferrous sulfate 325 (65 FE) MG tablet ferrous sulfate 325 (65 FE) MG tablet 325 mg Oral aborted Take 325 mg by mouth [facility] Insurance Providers Payer name Policy type / Coverage type Policy ID Covered republican ID Covered republican's relationship to finney Policy Finney Plan Information [place] [id number] Self 1 [id number] [place] Primary [id number] [id number] Self 1 [id number] Medicare - NGS Medicare Primary [id number] [id number] Self [id number] MEDICARE [id number] SP [id number] [place] Primary [id number] [id number] Self 13 [id number] [place] Primary [id number] Self [id number] [place] Primary [id number] [id number] Self 13 [id number] Medicare - NGS Medicare Primary [id number] Self [id number] [place] Primary [id number] 2.16.840.1.918010.3.227.99.806.2405.0 Self 13 [id number] [place] Primary [id number] Self [id number] [place] Medicare Primary [id number] 2.16.840.1.111624.3.227.99.806.2405.0 Self 13 [id number] [place] Medicare Primary [id number] 2.16.840.1.692891.3.227.99.806.2405.0 Self 13 [id number] Medicare - NGS Medicare Primary [id number] 2.16.840.1.305388.3.227.99.177.1932.0 Self [id number] [place] Medicare Primary [id number] 2.16.840.1.141402.3.227.99.806.2405.0 Self 13 [id number] [place] Medicare Primary [id number] 2.16.840.1.872218.3.227.99.806.2405.0 Self 13 [id number] [place] Medicare Primary [id number] 2.16.840.1.823170.3.227.99.806.2405.0 Self 13 [id number] [place] Medicare Primary [id number] 2.16.840.1.927134.3.227.99.806.2405.0 Self 13 [id number] [place] Medicare Primary [id number] 2.16.840.1.866267.3.227.99.806.2405.0 Self 13 [id number] Medicare - NGS Medicare Primary [id number] 2.16840.1.480230.3.227.99.177.1932.0 Self 13 [id number] [place] Medicare Primary [id number] 2.16.840.1.119445.3.227.99.806.2405.0 Self 13 [id number] [place] Medicare Primary [id number] 2.16.840.1.908240.3.227.99.806.2405.0 Self 13 [id number] [place] Medicare Primary [id number] 2.16840.1.901292.3.227.99.806.2405.0 Self 13 [id number] Medicare Part B [facility] [id number] 0 [id number] [place] Medicare Primary [id number] 2.16840.1.879212.3.227.99.806.2405.0 Self 13 [id number] [place] Medicare Primary [id number] 2.16840.1.640564.3.227.99.806.2405.0 Self 13 [id number] [place] Medicare Primary [id number] 2.16840.1.545413.3.227.99.806.2405.0 Self 13 [id number] Medicare [place] Medicare Primary [id number] 2.16840.1.317912.3.227.99.806.2405.0 Self 13 [id number] [place] Medicare Primary [id number] 2.16840.1.851149.3.227.99.806.2405.0 Self 13 [id number] [place] Medicare Primary [id number] 2.16840.1.654653.3.227.99.806.2405.0 Self 13 [id number] MEDICARE [id number] xxxxxxxxxxx [id number] MEDICARE [id number] [facility] [id number] [address] SUE A UNAVAILABLE [id number] UNAVAI LABLE Medicare - NGS Medicare Primary [id number] Self Medicare Part B [facility] [id number] 0 [id number] [place] Medicare Primary 2.16840.1.177573.3.227. 99.806.2405.0 Self Medicare [place] Medicare Primary [id number] 2.16840.1.281401.3.227.99.806.2405.0 Self 13 [id number] Medicare [place] Medicare Primary [id number] 2.16840.1.827788.3.227.99.806.2405.0 Self 13 [id number] Medicare [place] Medicare Primary [id number] 2.16840.1.431493.3.227.99.806.2405.0 Self 13 [id number] MEDICARE [id number] SP [id number] MEDICARE [id number] [place] [id number] [employer] (pr) Medigap Part B [id number] Self [id number] United [employer] [id number] 0 84 [id number] United Healthcare [id number] 0 [id number] [address] SUE UNAVAILABLE [id number] UN AVAILABLE [facility] Medigap Part B [id number] Self United Healthcare Medigap Part B [id number] Self [id number] [facility] 2 [id number] 1 [id number] United [employer] (pr) Medigap Part B [id number] 2.0.1.626153.3.227.99.991.93834.0 Self [id number] [facility] [id number] xxxxxxxxx [id number] C [id number] [place] [id number] [facility] [id number] [place] [id number] UNITED HEALTHCARE [id number] SP [id number] UNITED HEALTHCARE [id number] SP [id number] [facility] Commercial F [id number] SELF [id number] Medicare C [id number] SELF [id number] [facility] Jurisdiction A [facility] C [id number] SELF [id number] Medicare [place] Medicare Primary [id number] 2.0.1.138798.3.227.99.991.15674.0 Self 1 [id number] Medicare [place] Medicare Primary [id number] 2.0.1.065113.3.227.99.991.00327.0 Self 1 [id number] Medicare [place] Medicare Primary [id number] Self [id number] Medicare [place] Medicare Primary [id number] 2.16.840.1.806362.3.227.99.991.75150.0 Self 1 [id number] Medicare [place] Medicare Primary [id number] Self [id number] [facility] Part B [id number] Self [id number] Medicare [place] Medicare Primary [id number] 2.16.840.1.933785.3.227.99.991.68553.0 Self 7 [id number] Medicare [place] Medicare Primary [id number] 2.16.840.1.563003.3.227.99.991.99759.0 Self 1 [id number] Medicare [place] Medicare Primary [id number] 2.16.840.1.950570.3.227.99.991.95827.0 Self 7 [id number] Medicare Part B [facility] [id number] 0 [id number] [facility] [id number] SP [id number] INSURANCE COVID-19 COVID [facility] C OVID INSURANCE COVID-19 [id number] xxxxx [id number] INSURANCE COVID-19 COVID [facility] C OVID [facility] PI PI [place] PART B C [id number] S [id number] MEDICARE C [id number] S [id number] Medicare [place] Medicare Primary [id number] 2.16.840.1.285343.3.227.99.806.2405.0 Self [id number] Medicare [place] Medicare Primary [id number] 2.16.840.1.299955.3.227.99.806.2405.0 Self [id number] Medicare [place] Medicare Primary [id number] 2.16.840.1.341367.3.227.99.806.2405.0 Self [id number] Medicare [place] Medicare Primary [id number] 2.16.840.1.703473.3.227.99.806.2405.0 Self [id number] Medicare [place] Medicare Primary [id number] Self [id number] [employer] + Claims [facility] Part B [id number] Family Dependent [id number] [employer] Commercial [id number] Self [id number] [facility] Part B [id number] Self [id number] Medicare [place] Medicare Primary [id number] Self [id number] [facility] PART [facility] C [id number] S [id number] NGS MEDICARE [place] O [id number] S [id number] [facility] O [id number] S [id number] MEDICARE C [id number] S [id number] SELF PAY ONLY [id number] SP [id number] United [employer] Commercial [id number] Self [employer] Commercial [id number] Self MEDICARE [id number] SP [id number] [facility] [id number] SP [id number] [facility] MEDIC[facility] -O/P [id number] 18 [id number] MEDICARE [id number] SP [id number] MEDICARE -O/P [id number] 18 [id number] [employer] Commercial [id number] Self Medicare [facility] Medicare Primary [id number] Self [employer] (pr) Medigap Part B [id number] Self Medicare [facility] Medicare Primary [id number] Self UNITED HEALTHCARE [id number] SP [id number] UNITED HEALTHCARE [id number] SP [id number] SELF PAY 2 UNAVAILABLE 1 UNAVAILA BLE [employer] PPO 2 [id number] 1 [id number] [employer] PPO 2 [id number] 1 [id number] [facility] C [id number] S [id number] [place]/[facility] Medicare Primary [id number] [id number] Self [id number] [facility] Commercial [id number] [id number] .[id number] Self [id number] MEDICARE PI PI Problems, Conditions, and Diagnoses Code Display Name Description Problem Type Effective Dates Data Source(s) I48.91 Unspecified atrial fibrillation Unspecified atri al fibrillation Diagnosis 02/02/2021 07:04:08 AM EDT [facility] R62.7 Adult failure to thrive Adult failure to thrive Diagno sis 01/26/2021 06:49:00 AM EDT [facility] I10 Essential (primary) hypertension Essential (primary) h ypertension Diagnosis 01/26/2021 06:49:00 AM EDT [facility] I34.0 Nonrheumatic mitral (valve) insufficienc y Nonrheumatic mitral (valve) insufficienc Diagnosis 01/26/2021 06:49:00 AM EDT [facility] E78.5 Hyperlipidemia, unspecified Hyperlipidemia, unspecifie d Diagnosis 01/26/2021 06:49:00 AM EDT [facility] 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 heart disease of kake Diagnosis 01/26/2021 06:49:00 AM EDT [facility] I35.0 Nonrheumatic aortic (valve) stenosis Nonrheumati c aortic (valve) stenosis Diagnosis 01/26/2021 06:49:00 AM EDT [facility] 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 Acute on chronic combined systolic (aracelis Diagnosis 01/26/2021 06:49:00 AM EDT [facility] R60.9 Edema, unspecified Edema, unspecified Diagnosis 10:29:41 AM EST [facility] 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 Acute on chronic combined systolic (aracelis estive) and diastolic (congestive) heart failure [id number] 01/21/2021 12:00:00 AM EDT [facility] I34.0 Nonrheumatic mitral valve regurgitation Nonrheumatic mitral valve regurgitation [id number] 01/18/2021 12:00:00 AM EDT [facility] J45.40 Uncomplicated moderate persistent asthma Uncomplicated moderate persistent asthma Problem 11/30/2020 12:00:00 AM EDT [facility] ([facility], ) R05 Cough Cough Problem 11/30/2020 12:00:00 AM ED T [facility] ([facility], ) T14.8XXA [id number] Bruising Problem 10/05/2020 12:00:00 AM ED T eCW1 ([facility]) L57.0 [id number] Actinic keratosis Problem 10/05/2020 12:00:0 0 AM EDT eCW1 ([facility]) L81.4 [id number] Lentigines Problem 10/05/2020 12:00:00 AM ED T eCW1 ([facility]) L82.1 [id number] Seborrheic keratoses Problem 10/05/2020 12:0 0:00 AM EDT eCW1 ([facility]) S81.802A [id number] Wound of left lower extremity, initial en counter Problem 10/05/2020 12:00:00 AM EDT eCW1 ([facility]) L70.0 [id number] Comedone Problem 10/05/2020 12:00:00 AM ED T eCW1 ([facility]) D22.5 02169511 Nevus of back Problem 10/05/2020 12:00:00 AM EDT eCW1 ([facility]) L72.0 774540483 Milia Problem 10/05/2020 12:00:00 AM ED T eCW1 ([facility]) T14.8XXA [id number] Open wound Problem 08/25/2020 12:00:00 AM ED T eCW1 ([facility]) S80.12XA [id number] Hematoma of left lower leg Problem 08/25/2020 12:00:00 AM EDT eCW1 ([facility]) S81.812A 727615235 Noninfected skin tear of left leg Problem 08/25/2020 12:00:00 AM EDT eCW1 ([facility]) L97.821 [id number] Non-pressure chronic ulcer of other part of left lower leg limited to breakdown of skin Problem 08/25/2020 12:00:00 AM EDT eCW1 ([facility]) L97.822 81017602 Non-pressure chronic ulcer of other part of left lower leg with fat layer exposed Problem 08/25/2020 12:00:00 AM EDT eCW1 ([facility]) C44.629 [id number] 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 Problem 06/09/2020 12:00:00 AM EST eCW1 ([facility]) C44.722 [id number] 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 06/09/2020 12:00:00 AM EST eCW1 ([facility]) C44.329 [id number] Squamous cell carcinoma of forehead Probl em 05/07/2020 12:00:00 AM EST eCW1 ([facility]) Surgeries/Procedures Procedure Description Date Indications Data Source(s) OFFICE OUTPATIENT VISIT 15 MINUTES 02/22/2021 12:00:00 AM EDT [facility] ([facility]) OFFICE OUTPATIENT VISIT 15 MINUTES 02/11/2021 12:00:00 AM EDT [facility] ([facility]) OFFICE OUTPATIENT VISIT 25 MINUTES 02/04/2021 12:00:00 AM EDT [facility] ([facility]) ECG ROUTINE ECG W/LEAST 12 LDS W/I&R <td>POCT AMB EKG</td><td>Routine</td><td>02/02/2021 8:02 AM EDT</td><td> Atrial fibrillation</td><td> </td> 02/02/2021 08:02:00 AM EDT Atrial fibrillation [facility] Atrial fibrillation OFFICE OUTPATIENT VISIT 25 MINUTES 01/28/2021 12:00:00 AM EDT [facility] ([facility]) RADEX SPINE ENTIRE SURVEY STD ANTEROPOST&LAT <td>CARDI AC CATHETERIZATION</td><td>Routine</td><td>01/26/2021 10:50 AM EDT</td><td> Aortic valve stenosis, etiology of cardiac valve disease unspecified Acute on chronic combined sy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 Hyperlipidemia, unspecified hyperlipidemia type Atrial fibrillation Nonrheumatic mitral valve regurgitation Essential hypertension Failure to thrive in adult</td><td> </td> 01/26/2021 10:50:33 AM EDT Failure to thrive in adultEssential hype rtensionNonrheumatic mitral valve regurgitationAtrial fibrillationHyperlipidemia, unspecified hyperlipidemia type 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Acute on chronic combined sy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Aortic valve stenosis, etiology of cardiac valve disease unspecified [facility] Failure to thrive in adult Essential hypertension Nonrheumatic mitral valve regurgitation Atrial fibrillation Hyperlipidemia, unspecified hyperlipidem ia type 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 Acute on chronic combined systolic (aracelis estive) and diastolic (congestive) heart failure Aortic valve stenosis, etiology of cardi ac valve disease unspecified POCT POTASSIUM <td>POCT POTASSIUM</td><td>R outine</td><td>01/26/2021 9:22 AM EDT</td><td></td><td> </td> 01/26/2021 09:22:00 AM EDT [facility] ECG ROUTINE ECG W/LEAST 12 LDS TRCG ONLY W/O I&R <td>E CG 12- LEAD</td><td>Routine</td><td>01/26/2021 7:45 AM EDT</td><td></td><td></td> 01/26/2021 07:45:03 AM EDT [facility] POCT AMB EKG <td>POCT AMB EKG</td><td>Rou rd</td><td>12/21/2020 9:57 AM EDT</td><td> Atrial fibrillation</td><td> </td> 12/21/2020 09:57:00 AM EDT Atrial fibrillation [facility] Atrial fibrillation OFFICE OUTPATIENT VISIT 15 MINUTES 12/02/2020 12:00:00 AM EDT [facility] ([facility]) Spirometry 11/30/2020 12:00:00 AM EDT [facility] ([facility], ) OFFICE OUTPATIENT VISIT 25 MINUTES 11/30/2020 12:00:00 AM EDT [facility] ([facility], ) OFFICE OUTPATIENT VISIT 25 MINUTES 11/12/2020 12:00:00 AM EDT [facility] ([facility]) Kirkpatrick Cre W/I 7 Days Of DC, Comm W/I 2 Dys 10/20/2020 12:00:00 AM EDT [facility] FINE NEEDLE ASPIRATION W/O IMAGING GUIDANCE 10/20/2020 12:00:00 AM EDT eCW1 ([facility]) FINE NEEDLE ASPIRATION W/O IMAGING GUIDANCE 10/13/2020 12:00:00 AM EDT eCW1 ([facility]) BLOOD COUNT COMPLETE AUTO&AUTO DIFRNTL WBC COUNT <td>C BC AND DIFFERENTIAL</td><td>Routine</td><td>10/12/2020</td><td></td><td> </td> 10/12/2020 12:00:00 AM EDT [facility] HEPATIC FUNCTION PANEL <td>HEPATIC FUNCTION PANEL</td><td>Routine</td><td>10/11/2020</td><td></td><td> </td> 10/11/2020 12:00:00 AM EDT [facility] BASIC METABOLIC PANEL CALCIUM TOTAL <td>BASIC METABOLI C PANEL</td><td>Routine</td><td>10/11/2020</td><td></td><td> </td> 10/11/2020 12:00:00 AM EDT [facility] TROPONIN QUANTITATIVE <td>TROPONIN I</td><td>Routine</td><td>10/10/2020</td><td></td><td> </td> 10/10/2020 12:00:00 AM EDT [facility] FINE NEEDLE ASPIRATION W/O IMAGING GUIDANCE 10/06/2020 12:00:00 AM EDT eCW1 ([facility]) FINE NEEDLE ASPIRATION W/O IMAGING GUIDANCE 09/29/2020 12:00:00 AM EDT eCW1 ([facility]) FINE NEEDLE ASPIRATION W/O IMAGING GUIDANCE 09/22/2020 12:00:00 AM EDT eCW1 ([facility]) FINE NEEDLE ASPIRATION W/O IMAGING GUIDANCE 09/15/2020 12:00:00 AM EDT eCW1 ([facility]) OFFICE OUTPATIENT VISIT 25 MINUTES 09/08/2020 12:00:00 AM EDT [facility] ([facility]) Medication: 4% Lidocaine topical cream (Anecream) 30 gm 09/07/2020 12:00:00 AM EDT eCW1 ([facility]) FINE NEEDLE ASPIRATION W/O IMAGING GUIDANCE 08/25/2020 12:00:00 AM EDT eCW1 ([facility]) Medication: 2% Lidocaine intradermal 08/25/2020 12:00: 00 AM EDT eCW1 ([facility]) OFFICE OUTPATIENT VISIT 15 MINUTES 08/18/2020 12:00:00 AM EDT [facility] ([facility]) ECG ROUTINE ECG W/LEAST 12 LDS W/I&R <td>POCT AMB EKG</td><td>Routine</td><td>06/25/2020 11:24 AM EST</td><td> Atrial fibrillation</td><td> </td> 06/25/2020 04:24:00 PM EST Atrial fibrillation [facility] Atrial fibrillation Staple Removal 06/22/2020 12:00:00 AM EST eCW1 ([facility]) OFFICE OUTPATIENT VISIT 15 MINUTES 06/11/2020 12:00:00 AM EST [facility] ([facility]) Med: Derm Lidocaine with Epinephrine Inj ection 1% with 2 ml sodium bicarbonate Intradermally to marked areas 06/09/2020 12:00:00 AM EST eCW1 ([facility]) Suture Removal 05/14/2020 12:00:00 AM EST eCW1 ([facility]) ASTHMA SYMPTOMS EVALUATED 05/07/2020 12:00:00 AM EST eCW1 ([facility]) POCT AMB EKG <td>POCT AMB EKG</td><td>Rou rd</td><td>03/30/2020 7:25 AM EST</td><td> Atrial fibrillation</td><td> </td> 03/30/2020 12:25:00 PM EST Atrial fibrillation [facility] Atrial fibrillation Electrocardiogram Complete 03/19/2020 12:00:00 AM EST [facility] Electrocardiogram Complete 02/17/2020 12:00:00 AM EDT [facility] ([facility]) Results ID Date Data Source [id number] 02/18/2021 10:45:00 AM EDT [facility] Name Value Range Interpretation Code Description Data Laura rce(s) Supporting Document(s) SARS-CoV-2 (COVID-19) RNA [Presence] in Respiratory specimen by JUAN A with probe detection Not Detected [facility] This lab was ordered by [facility] and reported by [employer] ID Date Data Source [id number] 02/18/2021 10:45:00 AM EDT [facility] Name Value Range Interpretation Code Description Data Laura rce(s) Supporting Document(s) Coronavirus 2019 Nasopharygeal Laboratory test result [facility] ([facility]) ASSAY INFORMATION: Real Time RT-PCR or T MA. Both RT-PCR and TMA are nucleic acid amplification tests (NAAT) which are molecular testing modalities and recommended by the CDC for passenger travel. Testing and International Air Travel, [email or web address] 06/18/2020 NOTE: The COVID-19 assay is under Emergency Use Authorization (EUA) by the U.S. Food and Drug Administration. [facility] and [facility] are designated as high complexity laboratories by the Clinical Laboratory Improvement Amendments of 1988 (CLIA) and are qualified to perform this test. Not Detected ID Date Data Source [id number] 01/26/2021 10:56:23 AM EDT [facility] Name Value Range Interpretation Code Description Data Laura rce(s) Supporting Document(s) &PDF [facility] HUTJUx0uUkUUSbYw56/JEHaqJOBzs0AtWMgpGMc1VHufPRVmX2NwkWnwCPiRZHRsG36LIUHlYGUdOGei waW IyQ6tcyWHemtSMj5Rdm5WosCijzjhPZgAhJd2JDgJtJW3nsi4CBBDzTX6cic3WENV7OM9RaPt1TLHeZ4 MyWOPcNHScy5OtHU2NPM4cjNogWcD5Gv2+ZWdmXUX0zcIuqT2BPJEgKGcf81VNfc/A/D5A0LKiNKkt6r vQEihscQ6aUWWJsV6kIBt8uWzHKHF+veCgP3cJ1yg4 ZGJGdg8KurDzqX7vhYxRXeO//vF3u4MzHSH/u/fGEu85kXR//W3iCBOfe1vXzgZf+MlOxhBHU1PKzwgs 8URO5qg9DodYecep8wVI2RuxZ0MIbf+e/biZs3ur63uAbcab36Yd3eN5PeIcYGw0wKS2cMl6MM0/pbSf x8DLk8br37cC9RNV9uPpnOdGpzk0ooIfoptHG9BuIq n8TQ5/LodBUg6/L4a+70zR9LVkiTkFBH/FQvM2Z679PaqNmnKG3webA70N/lhI4oU6max6m30yyQy0E6 98n2X1n++y41Elfo0c89PU2XIPXB7nQQsZWqJxC/M1ppxaFZPhYJy7BuUBXXpqQbKCvCzaahfcic7pLp 4qnP4a9YFp4rldFGva94DWsr0E5C/CW35sv4EMiTuZ axTM8idYmry4pNnVpknXmbtoXEs3yV+0G0qPZiXZntuNwDfD7HvoMvuBpV7+rSlETefxAjVKUmYH3rD1 bYjDZEuSSiI+quwef3g+w18krtaL0o1SWX1TUMzTSicgl0qVQ5Mr1GJTFeUJVx6gyObQs0krI5CUqTwP Edgar+Cvx8/YwZdGjquP5iyABlBZIUQfHTX5EF3dHiT4 [file] ZjYe9DXuMsZSNERxIeCH2RECb= ID Date Data Source [id number] 01/26/2021 09:31:24 AM EDT [facility] Name Value Range Interpretation Code Description Data Laura rce(s) Supporting Document(s) POC POTASSIUM 5.2 MMOL/L (3.6-5.2) [facility] PERFORMED BY [facility] CLINICAL STAFF ID Date Data Source [id number] 01/26/2021 08:51:41 AM EDT [facility] Name Value Range Interpretation Code Description Data Laura rce(s) Supporting Document(s) EKG [facility] KZSIRa3cVeDSCiCru0YnZtSpMIGpTD8oxhz6L4J6rZCiP9FtqOBqy6dgS3WbE6ZaGAWnNRDFKK3YlSBs jb2 [file] Nt1Sk110MEAiQUSSRcn+EqfgvEXrlEhxVXOUWNCiXBOZQGTSR8M= ID Date Data Source [id number] 01/22/2021 10:05:00 AM EDT [facility] ([facility]) Name Value Range Interpretation Code Description Data Laura rce(s) Supporting Document(s) Coronavirus 2019 [facility] Laboratory test result [facility]) ASSAY INFORMATION: Real Time RT-PCR NOTE: The COVID-19 assay has been cleared by the U.S. Food and Drug Administration under the Emergency Use Authorization (EUA). [facility] and [facility] are designated as high complexity laboratories by the Clinical Laboratory Improvement Amendments of 1988(CLIA) and are qualified to perform this test. Not Detected ID Date Data Source [id number] 01/22/2021 10:05:[address] [facility] Name Value Range Interpretation Code Description Data Laura rce(s) Supporting Document(s) SARS-CoV-2 (COVID-19) RNA [Presence] in Respiratory specimen by JUAN A with probe detection Not Detected [facility] This lab was ordered by [facility] and reported by [facility]. ID Date Data Source [id number] 12/21/2020 11:45:39 AM EDT [facility] Name Value Range Interpretation Code Description Data Laura rce(s) Supporting Document(s) &PDF [facility] AKLFJu4bVhUWMkCe70/EFTixIQCfi1WtWBylUCx5KAjfMZYbX4JpjUckWSrZTRPzZ13MJRTxXLUmEJpo waW [file] db2 developer/t06E23zvc0BxhQb+Lmfh+fLq6/nF8+u66GL/IL+ [file] DQogICAgICAgICAgICAgICAgICAgICAgICAgICAgIC AgICAgICAgICAgICAgICAgICAgICAgICAgICAgICAgICAgICAgICAgICAgICAgICAgICAgICAgICAgIC AgICAgICAgICAgDQogICAgICAgICAgICAgICAgICAgICAgICAgICAgICAgICAgICAgICAgICAgICAgIC AgICAgICAgICAgICAgICAgICAgICAgICAgICAgICAg ICAgICAgICAgICAgICAgICAgICAgDQogICAgICAgICAgICAgICAgICAgICAgICAgICAgICAgICAgICAg ICAgICAgICAgICAgICAgICAgICAgICAgICAgICAgICAgICAgICAgICAgICAgICAgICAgICAgICAgICAg ICAgDQogICAgICAgICAgICAgICAgICAgICAgICAgIC AgICAgICAgICAgICAgICAgICAgICAgICAgICAgICAgICAgICAgICAgICAgICAgICAgICAgICAgICAgIC AgICAgICAgICAgICAgDQogICAgICAgICAgICAgICAgICAgICAgICAgICAgICAgICAgICAgICAgICAgIC AgICAgICAgICAgICAgICAgICAgICAgICAgICAgICAg ICAgICAgICAgICAgICAgICAgICAgICAgDQogICAgICAgICAgICAgICAgICAgICAgICAgICAgICAgICAg ICAgICAgICAgICAgICAgICAgICAgICAgICAgICAgICAgICAgICAgICAgICAgICAgICAgICAgICAgICAg ICAgICAgDQogICAgICAgICAgICAgICAgICAgICAgIC AgICAgICAgICAgICAgICAgICAgICAgICAgICAgICAgICAgICAgICAgICAgICAgICAgICAgICAgICAgIC AgICAgICAgICAgICAgICAgDQogICAgICAgICAgICAgICAgICAgICAgICAgICAgICAgICAgICAgICAgIC AgICAgICAgICAgICAgICAgICAgICAgICAgICAgICAg ICAgICAgICAgICAgICAgICAgICAgICAgICAgDQogICAgICAgICAgICAgICAgICAgICAgICAgICAgICAg ICAgICAgICAgICAgICAgICAgICAgICAgICAgICAgICAgICAgICAgICAgICAgICAgICAgICAgICAgICAg ICAgICAgICAgDQogICAgICAgICAgICAgICAgICAgIC AgICAgICAgICAgICAgICAgICAgICAgICAgICAgICAgICAgICAgICAgICAgICAgICAgICAgICAgICAgIC WsTEZaUPAbEFYiGCEgRYMnJPDsGAy0X0hfKXKgFCTfSF1yYQm0Uj7+HVjVDeFzTNE2ejOcxF2AHB6fe3 HyQFkmQPJup3MmXWm2US4YZIWgZPsuVE4ICSywpf4H NAGpOHOucXFFt7taVgDzOVZ2QVMgCzstMN8AJDNtO8vvggDfPUPuTTADFFgaEQXADJxtTXFVHM9QHnSf Z4FvzQ46VHTYMm5+GNsndzQzKggZTiZyRLHqo8ZhDKu8DY6VCFUqPNyaNH0DEIHdhB9yBExaMQ2AUpCy YJJaBALYVgIbO35maBKaMHs3H1MpAnKkIQZpDgwsGA MgPDwvTmFtZXMgWyBdDQogID4+ID4+XUstOG7JFGpehfGeLFRzLw8SKLUiNQB3EQOryGJiEboyZVUBKI bbSR7QlODjPJU8bU7iYOswOYOoNKFtT2zMHzZyvAkyWR89mQwwvkCtzGIcFYl+Ui8VRL9mc2FmGJk3eu LaBFnvNCYyOQsdYNFtHMBoJTSbZMS1OAZ9BABNYjWj WMHsAFSlIQbrWOCeVXQdce7AOWYkTVQfPyGuAeTtZQHpKWPiUTkzVLFoMFO7NsB1UTKvIXByDO3RFnLc HBJqWMCrOBjyAUVeAHYzbm1ZOFHvVAGmDpq1KbRwAKCeRVRuZLzrPSVfEGE6OAi3YXUkUVEaVV0QKiIl WGPoDKd2BXNhTAJlLCDavs7BRKYxESGwOLT2SZWvMA PlXFTsQJcmDOVjNSVxNGzzQNBoUZIkHF2IPqLpGVQjPJIeNjryPBPhBVHevy6JAECzQMBkUPIcXjSoCC MqWWVmMYqxNFHxQYEwWSG8BAXnYRYtHW9LFiLpZVNqAVM0MOgcQDDuBECgcz2TOIDhSQBwUjN9ZjAsCU TvNROwDCpaLUKfXNAdVJv6KAGhEEGfFS8VLxAiYBXi IUTeSsJtBSHnXSUgte4QQKFtDGImXBGfCVErYTXlLPNsAHhuCGWpMTC8IvS5HFOmCKOkSM1BUrOuDWEl XCJ9XREbAMUpRNClqv1CAGBrVWFtGCH3HHKpGNDqDODqKMnhFUDuGCK3TMG4XCHiTZZsJC0FCpZmKSXx UWB2HWloZRFvVBWddw9IVDGpEUQcMyC7KTFxMAHxCC JvAVepDHCsNHY1Llf9LIYhRLQuUX5NAcLrQXXqGQE5LHKrRBXqRGMkxs6VCDUyIBOmJjXuOpEyBUTdXX SbUOsiSBUoJYC9HkT7FWRkQPWqOT0XVbZvNUHlTDx5IRKuXFRdBSRgnf7PAWGqLXLpRAJwHNIpCGVdXU PtCRviHLYxMZW1UZu3XSQaIWWdVU1PGiFkKSmuJIFS Dly9UPheR8o2TGPtAC4JX4Reu1XeOgYdYDRGAVswRS3ekdAvBRYrTk3DY7lYUbq1UGq9QGHeP2K6FQIm UIJfSqS2Use9NMe1AalvJ2WcRP4bCPiqDJFlIeI4MbNeFLHkSHJqJEbzUWi8KlbdBJJeLqZbItRqIJ0O Dh7OIoH9TSM0zGKqEk7HVEk7CbSTPePwBO0RVIo= ID Date Data Source [id number] 11/30/2020 09:16:00 AM EDT [facility] ([facility]) Name Value Range Interpretation Code Description Data Laura rce(s) Supporting Document(s) PDFReport Laboratory test result [facility] ([facility]) FVC-Pred 1.76 L [facility] ([facility]) FVC-%Pred-Pre 75 L [facility] ([facility]) FVC-Pre 1.32 L [facility] ([facility]) Fev1-Pred 1.28 L [facility] ([facility]) Fev1-Pre 0.90 L [facility] ([facility]) FVC-LLN 1.21 L [facility] ([facility]) Fev1-%Pred-Pre 70 L [facility] ([facility]) Fev1-LLN 0.81 L [facility] ([facility]) Fev6-Pred 1.64 L [facility] ([facility]) Fev6-Pre 1.32 L [facility] ([facility]) Fev6-%Pred-Pre 80 L [facility] ([facility]) Akc8mfm-Effi 74 % [facility] ([facility]) Fev6-LLN 1.10 L [facility] ([facility]) Ixi4oir-Pjh 68 % [facility] ([facility]) Pok0ayq-GRJ 64 % [facility] ([facility]) Qiz9cbl-%Pred-Pre 92 % [facility] ([facility]) Vji8ykq-Oxu 100 % [facility] ([facility]) Luo5mle-Fpvt 93 % [facility] ([facility]) Onk4elv-%Pred-Pre 107 % [facility] ([facility]) FEFMax-Pred 3.68 L/E/sec [facility] ([facility]) FEFMax-Pre 1.60 L/E/sec [facility] ([facility]) FEFMax-LLN 2.32 L/E/sec [facility] ([facility]) FEFMax-%Pred-Pre 43 L/E/sec [facility] ([facility]) Qgc3251-Reqd 0.98 L/E/sec [facility] ([facility]) Gfk3583-Vma 0.56 L/E/sec [facility] ([facility]) ExpTime-Pre 7.99 sec [facility] ([facility]) Zxb3300-%Pred-Pre 57 L/E/sec [facility] ([facility]) Tey3556-OBN -0.01 L/E/sec [facility] ([facility]) Flf2qlv3-%Pred-Pre 87 % [facility] ([facility]) Ktr3gor5-Lpgt 77 % [facility] ([facility]) Hze7lku4-Hoj 68 % [facility] ([facility]) Fwn0rwz0-QBE 69 % [facility] ([facility]) ID Date Data Source [id number] 11/17/2020 08:45:00 AM EDT [facility] Name Value Range Interpretation Code Description Data Laura rce(s) Supporting Document(s) Follow Up [facility] VWWMSv0lQjOFDcNjYHVoXjfNQDxpWByhXJEiK6A4GWwuHg3CLOvnerSjKIHkZq3+GLJyXX1tyg5gRKXr gMy [file] 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/1QST9tiziUfkAWvqJqXLgYWcjM9dJjS1h2RLLdm+bMpbA+oULRIsedOvmcXwrWMBEcnZFLuSkwLKz [file] Fm+Wyay4geF+hu9X/O89AXEPczMdMPIqmLE7czUyYKi8ipa/records custodian/rRsdp/GDHwhKkJTxAS7C7bKoIyrq 4AQCzTuuW44aEs8Ain/8rYEvMSFMMiyCEpkA/X/D2yBvndlXAlxjjy8D2zOM1u+YC5QIm5fK61sWMY84 QbDRc2K+/l2ttNm+mqL8ASAZj1p94Xzr/zKRHNS/2S FnwqyoD2Mv/geqpyRyHoM5hXI+CZ4fgD/e8J+H4ZTdzuUxXQUaZM7T+CJYewJ8Ww3LV54yrLHe5eij4o m/S0nXQErT15bYzJ8a7WPaqVcawG7eIK0vmsUwDK/kxiISw6fH+STfI+R9qo3lgClqBQhiwpJZ0n3+x2 0hdkN16DobEjyemcmezNcadUCrbp5qmzx5Ygn94akB g0hMOxvcnUNwzexx3xnRSoINy1GsBUo+pWAqVq5657jELIQXDViwD7HrtQF82x9kGd3ls6Htfwr++Jese [file] uV2a9nzgTl1F8/Tomás+nwM7xw1myJErXxr0ykMKauYTMBAbFreTiv9KNjpUQfsz8P3cGArosNJ1t9o56c [file] 3W2OB5ZQkq/cg0h2KWyNoQTAKFsHuxAcRd2CiOHEE7bTd2pdR/Abn2BG26eMpasToy+Ym7JkL+home supervisor+tJ [file] jHXrp8qL1khz8pUmi1J7GFr+LATHING SUPERVISOR+hlZFkH+tDP0Bja+RcBcszQrkarqaLEpj0+dViuYPIUqcIVa6NtY6+ [file] h853V7y5xaxZT1uor3mRxLiH78Fctt3GWmWb3S+María [file] F77dAv0501j2b0PsDo30XN3bO9HU1df22Q5px11nUb k0MzAzci/X0DqFgfFsPWqa+dSw6IlLSzDk1vkA9ru+BJqdTVUyZjOr+TCbsAWcP+cqlXDmKNbEGjx11X ahU7ohsRrm/h6CMU79oQN8Wi9Rl9RX75usH4dY/RC6zlNw0vV5qnF3J+fTQGq+VivcQ70W1HrHlBLkwt MRqDWi4MI+C2Np83S/5M3Vo9BjLixeaQ8XX43hofqs 6Bs+ZP9eEzgzpZqWqR5QdZNfHiLShHcRXKsQw7/eNeOo3dfIiRRHWsfY6m18+SAxAbYLiXA5VUsirY9b AIG29JsuLpmXwOC48aEI2m/6lmtKVCTZ+IBAZLYm/xDogv+qutJPTeqZDyMiWAH5EaLD6a4oLnWmlUS0 ujHRa+ventilated rib fitter+D3HPa66jY6/JsPoFYCwj1lZ9IDxivEYI [file] xktrSNXwX/3gpmUk+VRkhXZAhY6kzCTXxbjFAajRTR0V+jR9SIuRiWkV+gonzález+MClI++BwaEtOH1csSBe [file] AGRIBUSINESS INTERNSHIP+Hfy8LJRRVP9uWXzmhzZh8bVXldg3KUmzFxaQcl [file] ryMPbGb04pk4ffkYcSX1jE87IyJysKXocQtswocZwdQd9CR+us4rPcOh2lfsyjv+Feather Washer/fBuJPnq/2DyZ 1zjJKaGv671Hp2VAQtZyEwH6qTkaBKxGhbWqLIQigUVP4nRtoOJHyXClPIUFvjKSzgJ+CSYG6iifyzOM sU0NA9QbRBY4jdPgu4+K/LGTJah+OSlO7p3w4VDQgO /BpulY38+DntX3UmkGJsZOhmVoNq7b9/fnPItSZAHlnajUy7tMP48/gZ7OZRamWEKD0h5/+e98YnIK8P DDiIHYtpdCCNDTRflBHMaQtZHUk8mSE3hUp/zBy9J+zpQZBn+CC9onbXwDlWhXb/qRilTQ4aRY43T3vk FfAn17oDHl4+b8mnD0UriR+d+P+WpkGp/rK4CoP0Hr DUjLj6svuHdyJPSGYMYluv8u4Mw50nzeV8QJSnq0cF2xdp5U4qxqRqg56r0kSUx2ZSGeqer/NLLpJVGT wY4JjTlEqIYvBYIIqGPKCO6tnLG6P+ekDQNX4wRpGJFKN5URsT4bL6BkzAXN8ZZQ8OoIpg0GSgTsOfzJ RjV8i6wKhFkk201xghWio+mE2pcGhbyP+q2WYyryPJ AFNcTVOcIWBQYDEviSDmBUBp6r8LPq2oVd20kuOpP9rPppiL5ccgYyefZrC84SxOpeEdaRoQmWJmBLtZ hrXWHdK2V3lrutKVppZ2l597UGc1BKy0VSPnJJykApSvLzOaF2mIQN9FBSkzo/9fy9utFsjuyPmwvTbA nJWFhYALGgLxiAJ727hMzDVGgWdOVRBDKgjTq3Wrn1 RPGCh7JFvJISE/joJNw/7Yw6JgazLkmGjUTO2mJ/AiPAloC0NX4HIvP+vLfKrjos/xvWnfBESNY2UTxL Ricardo/TkV6qk9MrOdSS51mzPw6NkFjHH9B7L8ARHvKbgbiRU9nJblpd6b+BKsov3uFIf/urG3jmyXdKbw0 [file] cEXO4ZqRv8y7tdnJ/R2IHoI1gqThsz8zUiy9eI/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 [file] QRvrsKHN1LOw2357IFB4Yy6qV817Oe2j2h012jm89U TqKZCKzQQQ8dhC2+7hGDl9QKw437olKhzJqpH/6VUWI85I/00j3aQLKKrep436f17U5vwTtxdf1gHQmF 10lERZGKrEIu00HWlp5y0KNly4CgFhnfNoM2WpO1cyyZrmzG4cI82lbFLnY2U+ZMXAtMV8cT2ol/4eoJ 2qy/Vy9N4sWjct5FKpjZccWN36IC94TwYqZWCnY3MG IIgvCzn1XjNDbHfnegwRCxagT3GBUgEBrjZav4xMmWDsuSCzI2N/JB4veBqBwMdAYmqP7etcTvsbPHLc K0xWGnpDd9EaVTuOM3HP1UKttMRB2IZtJG/jbCMn+vJU3UspKyVQX4g8ymFEAgxsNn95bhGV6fMsFiPb mAJgV/jhoINDyWEQo3855w1MQnkrKWpUSQWdqIBGPx IZUU9zBgGe3+oq2uOeoF/nnP11kr3Aj9v0A+lhSLsVm4E17YTMr96dbnhQ8BgyPLEiUp6zdFSWEDJhmW N8ziPXnUv0fR1iMB15IhIMs8Yg/qEvJIava7B2aIZ6dLPUtXGUgFl12wDCurvDbqYibEZxf4ASf3muqf IaM6MVDXwxDLTk9D4m0Z7C+3AZW9mXBgqiAtccgAGo HLDG9VALJOY7RAPLT6CTrsbVL02KqlY/PWeUsZ7LKYe2P+sDjX44DXIi336f0+Reji+ieloOgL61gZptjK hSC4ulGnx1BVqi7EvN1ecKd/gAHaBXvG33alWsbaqvbX/VEJlZ4fIMOLcnjNNThrITCsDX3iuWbmAqax h/ixNxTSpZJD0JSZ4s7d7VPw0zKt5jTieVBPxzBM8V G7z83e2NtCDowUTRqU6E685SD9VIzgaVE/ehcfd5reOuq7G7LhlBO5dG/z/2g0WtYB4SZuI4aeXbaQs+ IBRtjFpafTLujW6CLlvXQet8QAFrGbPqH8mKqoI/Qo1pq7JmURJ+GoF4moCoa7d2fVbcIByfGVgIKJWS 78woJsHu0DwHbyxRKpPO2al4y/aIZL/SFnSFLTU/w9 hOCJcA4BvrPEU5dNKMpy0+IxCL5O2U4ChEb55Kbd8LaMAncYh+lB4jJ32n/Y2uqRDf5hwtjlpdkHOKIr 6w5TvqW9bm0Mcq+l0c+QlVTe0CSXRLHVw1ElLN82MoD/18sxK5Z6vAV940koG5gx3U2XWymjQq78rxvQ a7Yp9Hj80hj9zJ9ir2y6U0Yv1AYkUNn16RlRn57u1n yqThmKObV7le5AWle4sn40rdcpHm6AFQZynl6UvcL3+N8H7mIBmOGeo5byCWq0bJld6XerU8sxKz1tFe SsvlhO/OkV0QCi2gG3GuufglwSi3g66RCQPWw+bad55p9ErpS124WMzJ+xaT5Ctk3XuuFAnlqoAxXaJG C7YPsauSEnFW8+jb1Lp8Rsj1Cxj47ugBTZUlXB955l InsMOS2hzpB3EGOh1iAJAJ0WMIgdjzt5MoMR9hXMtkjDBbgDamDCuo2oqenyLXRirjmvAGZfmco5Br2u S4E+zy+aoZa//lmioN/fire control system installer+z87qq+UimsxEoU/1VdbFVXRf3iZxM75YhSWhUpK1baSOiJmsjVo7W/AcAJ W3Gtouj37EgFF6bjAj6MqXfo9HaS4b2GxNxcD6m/Sa 38EirVukra7TA0oqP1j5Ouo8cBOm/0ZX7Rgmc1C5OQIB9GsRlJNZ7w4BihHK+Es0HjFagy3OI+sRHGaz WqlZ8Ur0c+QtxFhzhSnB26xgxOnQnZTb1mnkD0xVDOLMml9uDViK4pZQ9lL6ZUw3MffilTiliay285s4 KG/hg4x4bZBf8Q1Egn0TRFgZIB5OGTYjMhQy9MbC3C PMvAnkXmkjc30TaXEu/wrHENpiANNVBKZfV5GbHa3lnVayrgEk8Vjdc3MR9U8v16xsoFU4s8yxJdurOy DMuqOczvtsmRyjdPGIn7Y1ESPt0phrd1qWkejVNzhKuoJQtgfLVb90O6SfU7EPagjHhLlvsiC38DO2Ww jsM54RsepxP7sVBItL+U2xxpz4kcz1+r+u+9ifxzes OqQSLzRfYs3+JcXwoHuH4VV/voJGlpx8fyhXNbK2aEPyZrUo2i6LIcmt3X1Fbtt+LTTQyZfmDrNIt6lq qvAUeboX1x96PTO67bsZrGgFhQ6sZW2SgZ+BK4QfnRu7z3T9LAy4rgeGi73XO7RO+jrNU20/C4NjNX27 CT67QI00UcvmD47OgPc9DYfQWN96WHRTY5yorfOBQ3 /G/XuJIvGesqR6N5hUeuomXtuDOdWO2BNQrj6nKwggHRn11L9FFsqKQyxphEaND5FMR3NrExpMmfRBU2 /hrztHgvEe2+8BhoFuqEBgqQ5AhNSBkS83+CXcuPmxkd1Qw4H0LwujrB/orTZ3v0pdG5vUav5OgDq+kazakh [file] T8x/xZElYoRgsekCfZqcMHN4tabXAGsNHHkNl7k/LATHING SUPERVISOR aHy+i9fHaf7HuJvxuSkX7mHzouz4xtNVhi1m/OA5NBQ6E3KKaKz84dn0BBPvlCl/rvGxMkfSvt+LovXs T85IqrdhxkpVk8JOrGBkpaM1/yP2Tu/3kBGaeqCMwx7yuJRvLO31y88SJHZ+H86GubO1rrjPVgmBRLJx UNb7Th0epJk54UlHy3SxKYFdqPA6V7yx2J8Pz3OiSn q7kovu12kQjH56tecEHHJ0/+r2c16yR86qYPthWl9X3ZNbUYk1ii2go9kunmhrC1zlWgMXgmS9pxUA6p 2f/mUrQApzl/aq94hN/hgJAkZLjc6+o79v0mPAgdHFuFqcm0bG9JSfVZ1RhMsN4bqgP/jBOEoAAAGASP O/DiCqovC+KvGh8Zl2IhlvnguMMiMpkNPXeC3Vn+d/ DMbTZzFES+O96jD0Fycn6SMl7xi0An0QB0uOhfK3Ho806ZR9VXm4/fKW23LuOJ9m4XipxtNuUY2YNdOI DHAvjIl8ThtTkxhyIdSUQt+lbYPiwZ/QuAuWE/HaPXAo8qSwggR306NXD1Zu4/YX92oMKbJmI1l5ePFq A6jI8h0jXQ5Le2itXx5xLDVnT4zmLkGbDQMOWcmlsY +González/YOHOrtFlKuQxseMyYYzPY0tgUUQro8P4cQ+mM257K5PUKjmTnDPG0Z+/MM13bjFXilIbQQPDiee [file] 1B0/8s1wa3wSvvax4+EffjEdvGLgaOloUFY+bJBrmDyXc0eXcYqtjgRZbPvRH+motor coach driver+KgzVT4s+80Yf2mN [file] mMk+adult caregiver+IiFfOiTZo2YGKzSsl54CghZSeqqPIpAmXa [file] vG/3t5BJdiBroupK9DQlBSvklOaiebmCXqG9uLgqJfBAruiM/2nC4O/5RWdhvs/NYzqg1FTasYBG+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 Name Value Range Interpretation Code Description Data Laura rce(s) Supporting Document(s) SARS coronavirus 2 RNA [Presence] in Res piratory specimen by JUAN A with probe detection NEGATIVE [facility] This lab was ordered by [facility] a nd reported by [facility]. ID Date Data Source [id number] 10/09/2020 03:24:00 PM EDT [facility]) Name Value Range Interpretation Code Description Data Laura rce(s) Supporting Document(s) CK-MB Value Mass 1.6 ng/mL Normal (applies to non-numeric results) [facility]) CPK Creatine Phosphokinase 98 U/L 26-192 Lina l (applies to non-numeric results) [facility]) Troponin I Laboratory test result Normal (applies to non-n umeric results) [facility] ([facility]) <content>Troponin I Reference Interval f or Siemens [place] LOCI:</content>
<content></content>
<content>99th Percentile= 0.00-0.045 ng/ml</content>
<content></content>
<content>Risk Stratification:</content>
<content><= 0.10 ng/ml Decreased Risk for Adverse Clinical</content>
<content>Events.</content>
<content>0.10-1.50 ng/ml Increased Risk for Adverse Clinical</content>
<content>Events. Evaluation of additional</content>
<content>criterion and/or repeat testing in 2-6</content>
<content>hours is suggested to rule out myocardial</content>
<content>damage.</content>
<content>>= 1.50 ng/ml Indicative of Myocardial Injury.</content>
<content></content> MB/CK Relative Index 1.63 Normal (applies to non-num evy results) [facility] ([facility]) <content>DIAGNOSIS CRITERIA</content>
<content>MMB ng/ml Relative Index (RI)</content>
<content>NON-AMI < or = 5 N/A</content>
<content>FLOWERS ZONE > 5 < or = 4</content>
<content>AMI > 5 > 4</content>
<content></content> ID Date Data Source [id number] 10/09/2020 03:24:00 PM EDT [facility] ([facility]) Name Value Range Interpretation Code Description Data Laura rce(s) Supporting Document(s) Amylase [Enzymatic activity/volume] in Serum or Plasma 41 U/L 25-115 Normal (applies to non-numeric results) [facility] ([facility]) Lipase [Enzymatic activity/volume] in Serum or Plasma 34 U/L 73-393 Below low normal [facility] ([facility]) ID Date Data Source [id number] 10/09/2020 03:24:00 PM EDT [facility] ([facility]) Name Value Range Interpretation Code Description Data Laura rce(s) Supporting Document(s) Blood Urea Nitrogen 14 mg/dL 7-18 Normal (applies to non-nume nemo results) [facility] ([facility]) Glucose, Fasting 151 mg/dL 70-100 Above high normal [facility] ([facility]) Glomerular Filtration Rate Laboratory test result Normal (applies to non- numeric results) [facility] ([facility]) <content>Units are mL/min/1.73 m2</content>
<content></content>
<content>Chronic Kidney Disease Staging per NKF:</content>
<content></content>
<content>Stage I & II GFR >=60 Normal to Mildly Decreased</content>
<content>Stage III GFR 30-59 Moderately Decreased</content>
<content>Stage IV GFR 15-29 Severely Decreased</content>
<content>Stage V GFR <15 Very Little GFR Left</content>
<content>ESRD GFR <15 on WOOD FUEL PELLETIZER</content>
<content></content> Creatinine For GFR 0.66 mg/dL 0.55-1.30 Normal (applies to non -numeric results) [facility] ([facility]) Chloride Level 101 meq/L 98-107 Normal (applies to non-numeric r esults) [facility] ([facility]) Potassium Serum 2.9 meq/L 3.5-5.1 Below lower panic limits [facility] ([facility]) Sodium Level 138 meq/L 136-145 Normal (applies to non-numeric res ults) [facility] ([facility]) Anion Gap 3 meq/L 8-16 Below low normal [facility] Carbon Dioxide Level 34 meq/L 21-32 Above high normal [facility] Calcium Level 8.6 mg/dL 8.8-10.2 Below low normal [facility] ([facility]) ID Date Data Source [id number] 10/09/2020 03:24:00 PM EDT [facility] ([facility]) Name Value Range Interpretation Code Description Data Laura rce(s) Supporting Document(s) Ast/Sgot 247 U/L 7-37 Above high normal [facility] ([facility]) Alkaline Phosphatase 201 U/L 45-117 Above high normal [facility] ([facility]) Bilirubin,Total 1.5 mg/dL 0.2-1.0 Above high normal [facility] ([facility]) Alt/SGPT 88 U/L 12-78 Above high normal [facility] ([facility]) Bilirubin,Direct 1.0 mg/dL 0.0-0.2 Above high normal [facility] ([facility]) Total Protein 7.8 GM/DL 6.4-8.2 Normal (applies to non-numeric re sults) [facility] ([facility]) Albumin 3.3 GM/DL 3.2-5.2 Normal (applies to non-numeric resul ts) [facility] ([facility]) Albumin/Globulin Ratio 0.7 1.2-2.2 Below low normal [facility] ([facility]) ID Date Data Source [id number] 10/09/2020 03:15:00 PM EDT [facility] ([facility]) Name Value Range Interpretation Code Description Data Laura rce(s) Supporting Document(s) Color, Urine RFX Laboratory test result Normal ( applies to non-numeric results) [facility] ([facility]) Appearance, Urine RFX Laboratory test result Nor mal (applies to non-numeric results) [facility] ([facility]) PH,Urine RFX 7.0 units 5.0-9.0 Normal (applies to non-numeric res ults) [facility]) Specific Morrison Ur Auto RFX 1.009 1.002-1.035 Nor mal (applies to non-numeric results) [facility] ([facility]) Glucose, Urine (Ua) Auto RFX Laboratory test result Above high normal [facility] Protein, Urine Auto RFX Laboratory test result Above high normal [facility]) Ketone, Urine Auto RFX Laboratory test result Above high n ormal [facility] ([facility]) Urobilinogen, Urine Auto RFX 2.0 mg/dL 0.0-2.0 Above high normal [facility] ([facility]) Nitrite, Urine Auto RFX Laboratory test result N ormal (applies to non-numeric results) [facility] ([facility]) Leukocyte Esterase Ur Auto RFX Laboratory test result Normal (applies to non- numeric results) [facility] ([facility]) Bilirubin, Urine Auto RFX Laboratory test result Normal (applies to non- numeric results) [facility]) Blood, Urine Blood RFX Laboratory test result Above high n ormal [facility] ([facility]) RBC, Urine Auto RFX 2 /HPF 0-3 Normal (applies to non-nume nemo results) [facility] ([facility]) WBC, Urine Auto RFX 0 /HPF 0-3 Normal (applies to non-nume nemo results) [facility] ([facility]) Squam Epithelial Cell Ur Aurfx 0 /HPF 0-6 N ormal (applies to non-numeric results) [facility]) Mucus, Urine RFX Laboratory test result Normal ( applies to non-numeric results) [facility] ([facility]) Bacteria, Urine Auto RFX Laboratory test result Above high normal [facility] ([facility]) Hyaline Cast, Urine Auto RFX 0 /LPF 0-1 Normal (appl ies to non-numeric results) [facility] ([facility]) Amorphous Sediment RFX Laboratory test result Above high n ormal [facility]) ID Date Data Source [id number] 10/09/2020 03:15:00 PM EDT [facility]) Name Value Range Interpretation Code Description Data Laura rce(s) Supporting Document(s) White Blood Count 6.1 10 4.0-10.0 Normal (applies to non-numeri c results) [facility]) Red Blood Count 3.95 10 4.00-5.40 Below low normal [facility] ([facility]) Hematocrit 35.7 % 36.0-47.0 Below low normal [facility] ( [facility]) Hemoglobin 11.1 g/dL 12.0-15.5 Below low normal [facility] ( [facility]) Mean Corpuscular Hemoglobin 28.1 pg 27.0-33.0 Norm al (applies to non-numeric results) [facility] ([facility]) Mean Corpuscular Volume 90.4 fl 80.0-96.0 Normal ( applies to non-numeric results) [facility] ([facility]) Mean Corpuscular HGB Conc 31.1 g/dL 32.0-36.5 Below low normal [facility] ([facility]) Red Cell Distribution Width 14.0 % 11.5-14.5 Norm al (applies to non-numeric results) [facility] ([facility]) Platelet Count, Automated 259 10 150-450 Normal (applies to non-numeric results) [facility] ([facility]) Lymph % 13.3 % 24.0-44.0 Below low normal [facility] ( [facility]) [place] % 5.4 % 2.0-8.0 Normal (applies to non-numeric resul ts) [facility] ([facility]) Neutrophils % 78.3 % 36.0-66.0 Above high normal [facility] ([facility]) Immature Granulocyte % 0.3 % 0-3.0 Normal (applies to non-n umeric results) [facility] ([facility]) Eos % 2.0 % 0.0-3.0 Normal (applies to non-numeric resul ts) [facility] ([facility]) Baso % 0.7 % 0.0-1.0 Normal (applies to non-numeric resul ts) [facility] ([facility]) Nucleated Red Blood Cell % 0.0 % 0-0 Normal (applies to n on-numeric results) [facility] ([facility]) Neutrophils # 4.8 10 1.5-8.5 Normal (applies to non-numeric re sults) [facility] ([facility]) Lymph # 0.8 10 1.5-5.0 Below low normal [facility] ( [facility]) [place] # 0.3 10 0.0-0.8 Normal (applies to non-numeric resul ts) [facility] ([facility]) Eos # 0.1 10 0.0-0.5 Normal (applies to non-numeric resul ts) [facility] ([facility]) Baso # 0.0 10 0.0-0.2 Normal (applies to non-numeric resul ts) [facility] ([facility]) ID Date Data Source [id number] 09/09/2020 08:30:00 AM EDT [facility] Name Value Range Interpretation Code Description Data Laura rce(s) Supporting Document(s) EGD [facility] DZRDLz8nBfPZDjWtBXDgRcnDKXhxHYolLPDqG2H5RLybAw3ZTCpuoyNjPOOoIq8+DOVlJR1yet9rCFCh gMy [file] +db2 developer/RKVXZVK+fIVA1I0aeosivAoiZFqaPuyjG2Bk0g6sEejBAZpGZsC4BG23glbxnI5trwZLh2Xj9J7Z [file] Jose Raul+iiF7S98dnhI2GuLPiTf8v6cWRKp3oAKUZy9zus [file] 1v2ydRA+LATHING [file] mud logger/qN0b/yvGACTmDSScxakj0s94vBjldeU8fMgPanBS/rB13+HQsXC0UIDze0FVZiKURpVLoCF8Cr6t [file] V4MxVqNhsFNGtiT2brlczpvRVmYIRk/5Lje/JAwrXbGobf2qwYUNd+Y2bWMakwnAHuveQ+LATHING SUPERVISOR+P+eqXBB [file] motor coach driver+0IJzHiG/eQ7V80p+SL3e3ehjwxVSPAAaFk0LhqA [file] +lOBLm0HU7u2eb5ExUrzg3rmmvckgJcUN0aLIOod0YopAAfKpkYChCcX2SszGLFmQ20Z7+fire control system installer+7o/+MDt yX9FYWneY+ZMCtqF0LG/WONatpKOqKkPoiI2Ey0pbyvTZNlR8Vnc85ECXXfsfoxU9g+Vl8R8Q1FjlBTV M5BeVPn2vSObhL4SDdMQswfhlVLcYAiOpH0MlUThdw +9aZ0fYkdS2x6eO7FHG9c+YB6zp4t4v4HyQEITflR/WTmZaylelQmfh07CnGvqZPhKxYxjti4labrU2b 4oiKwMBqb9eEFwzEpeIZyjI7Yx7blIVDvHfGiE6VNzl8yNw0EmVrbpFrwOI8/kyT//lxnw1EMH5Y7IbN UgcrdgyQZcY84TCUjI9hSG2fzuIGoWXYxtPQLy+/j7 jc6BAMJ0qwBNynq0v1w7q89Ta0u7xhlxNtluiXSNfxrK9LWcz4TfLPAIN8S3KsFi/JHjv4iqJhaexUKa nOht927aMtKdhkGyShoQliHMjkvuEQMVrr8BP1LwLb72wem2L8Ph3G+MoB+vWzUttUPai++r9uRvh30A x8l066ShZPPohRY0g5hTvvLAR4OEP5m0An+efCTNAe x/JxHn5ru9ZMuVYk0Dp7XK4mV4Fa0FGfE+11wQMrNIZImYCF2yy2bUcYL6SeZHr3Q4mM15mpGl+B9P0f IahKsqfGNJcTNczU3Ad96KizRBA15MrZtT2uM0+vxrdkrTSx4sKOBu7QHxm9DluFkCzTM8HWlNdXA9dW TfGzYgRjxLSt51YwG95kyAcbsci+fhOqwcA/T8e52T l4arlcbT7yNZgKjOqwoRrnSGaWopcVWa1OiryrbS5PZy8yeNg/To0n1H5OvnxWelBqktXHqzCsawz1P/ rQ8K8kCaLTdHO5wLh971hxeDTM9RQrfOXFvAl7axcNO9bQE8wsaREENdF64TpX/4AP2r9dddNw8IAK4d BVITE8iDSRipKnzUQU8r/HsCXKTuhvV7nGs2E9+Wilmer [file] 5UFSRy4E4sbLgryYoefavclCkMeLdktarKgfluksGh i05ec8d8A/oMweL/e/0CqXL1+ZVUjw6163hqoGIoHpSbdQrHOtAe4EfJzIw6RurEbjOf6P7a7fBkF8JB G1W57tKGivf5Q97glpveNbMpS4sEsk8V73BZTlVwVbEfFfCM6DOgume/C685Q7NMPLap0XUGAAG0qXBi cGL7dScP8g+dp3dyaaBShnye879VWhL8b4XcPPDqO/ VdA0B7AD05m2HAUllg+76xaYDaYOEHezqrWnLvMJMkyFtPuL+UvV7v8zUgvXjM62xUSgtrss/h/a5ywy ZL5yO3JV+J6P+fmYyCmRs9D84WHVbzWRBsWeLt4S730gKB29uCRcs4YYp1Te5LOkFJ3ZnMjAsnQgd6ed uzpv3hoY2NzulHWuoVF6up7mYcVtWF0hbP0/NvpQOB NzXlK11jktsnhiO+QdKRH5XJzZ+HnUWZE03ybdBx4NFQkjhG7x5DI8lj7nMaQIx/h6iU02fDt3fJUz2T 3/gjaualfS2fZgosM0h1M/dRq0IKwlo1JigQdS77q36mUCYIOIseae4QGW4dzmcFq4G9hWgipAT+fxYf WMFULUblwi1FjJSuQu+MzOWXmMUbTiwxDokX81/PRESS ASSISTANT AND FEEDER [file] C2paYeQrNllF1LOKcexET0Ut4UiVhGVh3xOC6chpE0/Олег/uslY6V0GNhyJMJb+vd5fengh2Z2R7JYo [file] T0Y= ID Date Data Source [id number] 09/04/2020 08:00:00 AM EDT [facility] Name Value Range Interpretation Code Description Data Laura rce(s) Supporting Document(s) SARS coronavirus 2 RNA [Presence] in Res piratory specimen by JUAN A with probe detection NOT DETECTED [facility] This lab was reported by [facility] [place] [facility]. ID Date Data Source [id number] 08/11/2020 08:30:00 AM EDT [facility] Name Value Range Interpretation Code Description Data Laura rce(s) Supporting Document(s) Follow Up [facility] KWZONo5fShEPUhHjQIOiCdvHITvhYBzbTZGgI6G4DXnvMm9PPDnswtWpWSQuCt4+PHUkLR4dts7aPFFu gMy [file] motor coach driver/VDHRmsOV0VgyBNokhLEeZ8p4kH/zHnRGF2hDW8J4y7DhHmojl0rjNUH3OuomNQzrJerph+sJGFdtX [file] HQAn4Gbaqak+SVYo+Edge Baster/kM+Qz5J7sSTI2pLKtQrQ7oexvXU6SYXdTN/sB4oGxORCvFsKGKrxijuAPFzI [file] fire control system installer/wmj8th0jhrxn1saYAuzgTFJaZRVxy3uFZ1AtdyJ 4Qjpqryq+aPvMbV58c7wKYys03D52BIiV0LchFDQXHyeNJ4zR/Cys/xmVGDvVLZobcy2ZMKoiu7nyTEA cbbFWbRzGJPPLQXzmLqzsWB1WqJZg103UIZ79/7Mjr/obb2nNbQXv1HRXONvpvzA7QYNsK6aDm3DpWfC nNDiOvnnOM+p8uxFMmpvMrFF5SOKiY+s6hGV1j+fb7 sW5pJkQF2p2y3TIvG0VxnJw9WDFt7OzTWFVysM1+1lpigPA2WrI1fNBn1d+oQvYMONejYe4G+nOHS55W YIeP2xFTKjBtMymaaqbBH8w9DwmO/AEmYS0/spW6FY2XuciIMQI62vCG4QdqCP2OchL4EKOy5d90YlnG pxJmwfO64Jt5pm5Jx2z1EPW9LvQ3PzzdirYzIQZjTV nVyrzz0XRimL/E0umDBhFkvTiXggwxEh4HgfRA2cLarwnp2lfC8vI5BiN3Z43mHrP2VxEF/TmaNCfNR/ 1CiNphZvj8E0ECB0egJB6i7DSK+ySAC5KUMvEUYvmJ8/aN1CWquOE6HzEU9wUIN83rLPfMt8VwfCRQ0p CteKgYD4ni9/AD1PwPKM83mh7745o35oMQZJoncsx/ nn+I8X+4c+z0eIdXeDe8m67sqylx5EDLFP8sZ+vFcO19Zi8aHY0NBbVjAM6ZnTLBWluLWiOnqXw2kS3J 4CcdXWw8hSN0vUEx0xOGwCQwRLVuzIN9Zx6CE4A0z6E+VXjakmT+5/7hclPwJFmSQcPheB5bUoBU4rh0 I0ASCIC/CbhqXMOvDGq+cUmN7u8hOFkDgWWpdR4juZ OimC97uxXtHfY7ilPzh/oRtgX3up2LukSKgZhBLm6ZXQRlto1iWqVwRQGy+EtfNTtY3BWRC1kl0sh0ms baSoZXRGiNUIUdwj7V1YpKvkn7v0yba6vSdBz7yFoHyXJ7tusM1nx9FEq+4x6VmViw93/Liliana+e22b2D9 [file] eUmwNOcyHhbyp4As9s7Z+Cane Piler+JzyEay6chVQhFOLpi [file] vp publisher development/iy+p9ykjuKc61r8713rL1oNa6A8wozexIVMc6KF [file] 00s/Tbwv3excZPHozN6Vv9/l8lBkB4E/TIitaM/Juan Carlos [file] [facility]+E/8H+9G+Vdg4d8Fux+iVz45w230C3cyj [file] lVt7TzIi66l4GhGO79N0lGkVqCaMoQxuhVsGWnDvHJzLZ+51/buwqM/bMpM8JrXGsq246ImP5WU7Y+fire control system installer [file] 5KpwZF+kbfolhRufgUH4x/6GbqzIv/+ejol1oosi/RFjW4KNDG8hbnvFc/cJl/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+xk08Q+hZKXac1sN XEYLh6C2aZnOSDwMJHELS6tTYeEtvK6Ks6p2m/1VSw BuEE6czr5DBr4CsKZwFZHe6LH8fzGvK+aHVoUL2kVVg2yB8Np/bO4uNbiXv7bvfjbj3rR+P7qnh55JOU vK4AFrdjRPRnprgFArgNrrWRybe6UU+mr+0WFF4eqq/3ZI8aUwwDYMzwCF2WatC/hkIWyxmEvK2p+cHX Vtx7GJvp7+xEa5tYxz17uY9iuZ1UyqTBjTXNQI92Yh tl4rmjtpdPq9jg7rjtfDml+AUMZ9Xi3M0C9dN8vGa08Q7bjDNz1f/hWKGuRCUJZ2TiN15l7q+Vnb9HAf R1rENhmDASOdQpNnciNNcqQKguqZmD+tfA/0XKhPwAj9cOnOsVjgAc6T6X9vn7q5YF5GQwwYi0JI5sqj FRUIuM9LujkGmxlqXiB+yiAKd4gig6e9RgNZ3k0t0A ti8eMWJtBdT1H6qMHXi+9h6nyTizZw9H0rKMcdWdxXSwN6oJkevMjGGj3O9Xy46UFsxVZI/5xLQvUqj1 jaisho4ona8XrkSOMCsAq7wt1JtpEaSjM6Idf7dTyQ8ienTrxhWr0mrVKcrTQ9R6D+ljqIS33bcNiI2D tzjeFVlDJZuNaCNKEVfqMrbQ2rNc/v4ry4igMr8+8o 0RyrDaWKKrhk0O8/bfDUc8VN/y5b+zglkqkR3pV8KvrzqKlrKDnJ21FZI9s/Pr0i8b2NwiqelCskVRUo fYLufuqow7XkqgA5fsVPQYwWnqkwI0LT8y61XkaxW3ccIhd3qANTKwyxpvb2blbySFIQeFdQNQAbsMgz yndoDqfxalqlhfM9SXkouqEVpEC7DszZXKvRlaELuh dMdDwVWTQqgEyZ1cV9/Avani/+Fm42tMxsYKYJFVJHQm1G/DI3EJuFAQMlY/FkJ6CrtbnJjUjyEe7+5V4R [file] uZGwcIebOJhY1HSLz7UK1ANC+hJqFDIKGG/vp publisher development/3nN3 [file] vp publisher development+LKYGBjH9IY7CJp43NSwk1x8+d2rtJWZBzYqBGJK2+nOQyrIEhmj4yxARF1gU1Xp7d80EFFYh+HMR9 [file] motor coach driver+T0I94cWCeCp2mi3hFlgRigonXf9zxIkH6GNTTTjzW0ksz3h7apMyK0fgS32o611ZCsBPNCDkbHvUN [file] [facility]+ii3iRKyuhE89vskRp0650idE2wFU6Sh/Io0iWEUbJA+9EBwcyoS6u0aaDrFwDwWf91YeO [file] uCWtrIYPnX2N9asdup/GpzZ4MW3a/bGER90+Mi [file] Juan Carlos/M+vcJYeq/Xqte0i/UkO+2A2XN23xsE7DM7Wf40/VHRaSU0TAooNgHIfukAEKjbpu63uIlWN5gR6Z [file] a8+QjOr9/wHfhjWsZByzv2trnv0FPpjc6aVhB0 [file] Ze6sQZACAHO8YMZ5SjX1SER3RDGWWHhNVXVTKlAhUZ N9VWrbHo7dNs0snKXuJOZeHs8GreOzPUYnOUMKN4HwxzPrDuAvMGonIZRuDMEfEb8EFKacRBEvFF6+Pn X4kjRfuI4TzMokEQVhIIYgYYQdNINVMI1HpDrBBBTMSKOqwfHPrxhQLDCThTXV0ofSCZKhRLlsTvUhLB TmUbfXZSUQZGtPLN6HjrMmPMQ+K0y2tvQDqyAZFy4O RJ4wu6RsETCmOKnfgqJzUhwAETpvlCGjsBkbGTEXOaR4EOllSrKAJbFiQN4H ID Date Data Source [id number] 04/28/2020 12:00:[address] [facility] Name Value Range Interpretation Code Description Data Laura rce(s) Supporting Document(s) SARS-CoV-2 (COVID-19) RNA [Presence] in Respiratory specimen by JUAN A with probe detection [facility] This lab was ordered by [facility] and reported by [employer] ID Date Data Source [id number] 04/07/2020 12:00:00 AM EST [facility] ology Imaging Gladis Ventura DO Patient Name: JANET [id number] Date of : 1940 1 Date of Exam:04/07/2020MACARIO Sparrow [id number]#: Fax: [phone] EXAM: MAMMO SCREENING WITH CADCLINICAL [...] was read with the assistance of [employer], an FDAapproved computer aided detection system for [...] connellye(s) Supporting Document(s) ID Date Data Source [id number] 03/23/2020 07:33:00 PM EST [facility] ([facility]) Name Value Range Interpretation Code Description Data Laura rce(s) Supporting Document(s) White Blood Count 4.2 10 4.0-10.0 Normal (applies to non-numeri c results) [facility] ([facility]) Hemoglobin 11.0 g/dL 12.0-15.5 Below low normal [facility] ( [facility]) Red Blood Count 3.64 10 4.00-5.40 Below low normal [facility] ([facility]) Hematocrit 34.6 % 36.0-47.0 Below low normal [facility] ( [facility]) Mean Corpuscular Volume 95.1 fl 80.0-96.0 Normal ( applies to non-numeric results) [facility] ([facility]) Mean Corpuscular HGB Conc 31.8 g/dL 32.0-36.5 Below low normal [facility] ([facility]) Mean Corpuscular Hemoglobin 30.2 pg 27.0-33.0 Norm al (applies to non-numeric results) [facility] ([facility]) Platelet Count, Automated 202 10 150-450 Normal (applies to non-numeric results) [facility] ([facility]) Red Cell Distribution Width 13.3 % 11.5-14.5 Norm al (applies to non-numeric results) [facility] ([facility]) Neutrophils % 52.9 % 36.0-66.0 Normal (applies to non-numeric re sults) [facility] ([facility]) Lymph % 29.6 % 24.0-44.0 Normal (applies to non-numeric resul ts) [facility] ([facility]) [place] % 7.7 % 0.0-5.0 Above high normal [facility] ([facility]) Eos % 8.4 % 0.0-3.0 Above high normal [facility] ([facility]) Baso % 1.2 % 0.0-1.0 Above high normal [facility] ([facility]) Immature Granulocyte % 0.2 % 0-3.0 Normal (applies to non-n umeric results) [facility] ([facility]) Nucleated Red Blood Cell % 0.0 % 0-0 Normal (applies to n on-numeric results) [facility] ([facility]) Lymph # 1.2 10 1.5-5.0 Below low normal [facility] ( [facility]) Neutrophils # 2.2 10 1.5-8.5 Normal (applies to non-numeric re sults) [facility] ([facility]) [place] # 0.3 10 0.0-0.8 Normal (applies to non-numeric resul ts) [facility] ([facility]) Baso # 0.1 10 0.0-0.2 Normal (applies to non-numeric resul ts) [facility] ([facility]) Eos # 0.4 10 0.0-0.5 Normal (applies to non-numeric resul ts) [facility] ([facility]) ID Date Data Source [id number] 03/23/2020 07:33:00 PM EST [facility] ([facility]) Name Value Range Interpretation Code Description Data Laura rce(s) Supporting Document(s) Prothrombin Time 20.7 s 12.5-14.3 Above high normal [facility] ([facility]) Inr 1.74 Normal (applies to non-numeric resul ts) [facility] ([facility]) THERAPUTIC HUMAN INR VALUES INDICATIONS NORMAL RANGES PROPHYLAXIS/TREATMENT OF: VENOUS THROMBOSIS 2.0-3.0 PULMONARY EMBOLISM 2.0-3.0 PREVENTION OF SYSTEMIC EMBOLISM FROM: TISSUE HEART VALVES 2.0-3.0 ACUTE MYOCARDIAL INFARCTION 2.0-3.0 VALVULAR HEART DISEASE 2.0-3.0 ATRIAL FIBRILLATION 2.0-3.0 MECHANICAL VALVES(HIGH RISK) 2.5-3.5 RECURRENT MYOCARDIAL INFARCTION 2.5-3.5 ID Date Data Source [id number] 03/23/2020 07:33:00 PM EST [facility] ([facility]) Name Value Range Interpretation Code Description Data Lauar rce(s) Supporting Document(s) aPTT in Platelet poor plasma by Coagulation assay 43.3 s 24.2-38.5 Above high normal [facility] ([facility]) ID Date Data Source [id number] 03/23/2020 07:33:00 PM EST [facility] ([facility]) Name Value Range Interpretation Code Description Data Laura rce(s) Supporting Document(s) CPK Creatine Phosphokinase 85 U/L 26-192 Lina l (applies to non-numeric results) [facility] ([facility]) CK-MB Value Mass 2.5 ng/mL Normal (applies to non-numeric results) [facility] MB/CK Relative Index 2.94 Normal (applies to non-num evy results) [facility] <content>DIAGNOSIS CRITERIA</content>
<content>MMB ng/ml Relative Index (RI)</content>
<content>NON-AMI < or = 5 N/A</content>
<content>FLOWERS ZONE > 5 < or = 4</content>
<content>AMI > 5 > 4</content>
<content></content> Troponin I Laboratory test result Normal (applies to non-n umeric results) [facility] ([facility]) <content>Troponin I Reference Interval f or Siemens [place] LOCI:</content>
<content></content>
<content>99th Percentile= 0.00-0.045 ng/ml</content>
<content></content>
<content>Risk Stratification:</content>
<content><= 0.10 ng/ml Decreased Risk for Adverse Clinical</content>
<content>Events.</content>
<content>0.10-1.50 ng/ml Increased Risk for Adverse Clinical</content>
<content>Events. Evaluation of additional</content>
<content>criterion and/or repeat testing in 2-6</content>
<content>hours is suggested to rule out myocardial</content>
<content>damage.</content>
<content>>= 1.50 ng/ml Indicative of Myocardial Injury.</content>
<content></content> ID Date Data Source [id number] 03/23/2020 07:33:00 PM EST [facility] ([facility]) Name Value Range Interpretation Code Description Data Laura rce(s) Supporting Document(s) Ast/Sgot 24 U/L 7-37 Normal (applies to non-numeric resul ts) [facility] ([facility]) Alt/SGPT 23 U/L 12-78 Normal (applies to non-numeric resul ts) [facility] ([facility]) Alkaline Phosphatase 98 U/L 45-117 Normal (applies to non-num evy results) [facility] ([facility]) Bilirubin,Total 0.2 mg/dL 0.2-1.0 Normal (applies to non-numeric results) [facility] ([facility]) Bilirubin,Direct Laboratory test result 0.0-0.2 Normal ( applies to non-numeric results) [facility] Albumin 3.3 GM/DL 3.2-5.2 Normal (applies to non-numeric resul ts) [facility] ([facility]) Total Protein 6.7 GM/DL 6.4-8.2 Normal (applies to non-numeric re sults) [facility] Albumin/Globulin Ratio 1.0 1.2-2.2 Below low normal [facility] ([facility]) ID Date Data Source [id number] 03/23/2020 07:33:00 PM EST [facility] ([facility]) Name Value Range Interpretation Code Description Data Laura rce(s) Supporting Document(s) Glucose, Fasting 121 mg/dL 70-100 Above high normal [facility] ([facility]) Blood Urea Nitrogen 14 mg/dL 7-18 Normal (applies to non-nume nemo results) [facility] ([facility]) Creatinine For GFR 0.71 mg/dL 0.55-1.30 Normal (applies to non -numeric results) [facility] ([facility]) Glomerular Filtration Rate Laboratory test result Normal (applies to non- numeric results) [facility] ([facility]) <content>Units are mL/min/1.73 m2</content>
<content></content>
<content>Chronic Kidney Disease Staging per NKF:</content>
<content></content>
<content>Stage I & II GFR >=60 Normal to Mildly Decreased</content>
<content>Stage III GFR 30- 59 Moderately Decreased</content>
<content>Stage IV GFR 15-29 Severely Decreased</content>
<content>Stage V GFR <15 Very Little GFR Left</content>
<content>ESRD GFR <15 on WOOD FUEL PELLETIZER</content>
<content></content> Potassium Serum 4.0 meq/L 3.5-5.1 Normal (applies to non-numeric results) [facility] ([facility]) Sodium Level 142 meq/L 136-145 Normal (applies to non-numeric res ults) [facility] ([facility]) Carbon Dioxide Level 25 meq/L 21-32 Normal (applies to non-num evy results) [facility] ([facility]) Chloride Level 110 meq/L 98-107 Above high normal [facility] ([facility]) Anion Gap 7 meq/L 8-16 Below low normal [facility] Calcium Level 8.8 mg/dL 8.8-10.2 Normal (applies to non-numeric re sults) [facility] ID Date Data Source [id number] 03/23/2020 07:33:00 PM EST [facility] ([facility]) Name Value Range Interpretation Code Description Data Laura rce(s) Supporting Document(s) Thyrotropin [Units/volume] in Serum or Plasma 5.210 uIU/ML 0. 358-3.740 Above high normal [facility] ([facility]) Thyroxine (T4) free [Mass/volume] in Serum or Plasma 1.08 ng/dL 0.76-1.46 Normal (applies to non-numeric results) [facility] ([facility]) ID Date Data Source [id number] 03/19/2020 06:30:00 PM EST [facility] ([facility]) Name Value Range Interpretation Code Description Data Laura rce(s) Supporting Document(s) Laboratory test finding (navigational concept) Laboratory test r esult Normal (applies to non-numeric results) [facility] ([facility]) A false negative result may occur if [...] pathogens. DISCLAIMER: Testing was performed using the LoopMeID SARS-CoV-2 test. This test was developed and its performance characteristics determined by [employer]. This test has not been FDA cleared [...] or revoked sooner. ID Date Data Source [id number] 03/19/2020 06:30:00 PM EST [facility] Name Value Range Interpretation Code Description Data Laura rce(s) Supporting Document(s) Coronavirus 2019 Nasopharygeal Laboratory test result [facility]) Laboratory test finding (navigational concept) Laboratory test r esult Normal (applies to non-numeric results) [facility]) A false negative result may occur if [...] pathogens. DISCLAIMER: Testing was performed using the LoopMeID SARS-CoV-2 test. This test was developed and its performance characteristics determined by [employer]. This test has not been FDA cleared [...] or revoked sooner. ID Date Data Source [id number] 03/19/2020 04:54:00 PM EST [facility] ([facility]) Name Value Range Interpretation Code Description Data Laura rce(s) Supporting Document(s) Ast/Sgot 19 U/L 7-37 Normal (applies to non-numeric resul ts) [facility] ([facility]) Alt/SGPT 21 U/L 12-78 Normal (applies to non-numeric resul ts) [facility]) Alkaline Phosphatase 98 U/L 45-117 Normal (applies to non-num evy results) [facility] ([facility]) Bilirubin,Total 0.3 mg/dL 0.2-1.0 Normal (applies to non-numeric results) [facility] ([facility]) Total Protein 6.6 GM/DL 6.4-8.2 Normal (applies to non-numeric re sults) [facility] ([facility]) Bilirubin,Direct 0.1 mg/dL 0.0-0.2 Normal (applies to non-numeric results) [facility] ([facility]) Albumin 3.3 GM/DL 3.2-5.2 Normal (applies to non-numeric resul ts) [facility]) Albumin/Globulin Ratio 1.0 1.2-2.2 Below low normal [facility] ([facility]) ID Date Data Source [id number] 03/19/2020 04:54:00 PM EST [facility] ([facility]) Name Value Range Interpretation Code Description Data Laura rce(s) Supporting Document(s) CPK Creatine Phosphokinase 81 U/L 26-192 Lina l (applies to non-numeric results) [facility] ([facility]) MB/CK Relative Index 3.33 Normal (applies to non-num evy results) [facility] ([facility]) <content>DIAGNOSIS CRITERIA</content>
<content>MMB ng/ml Relative Index (RI)</content>
<content>NON-AMI < or = 5 N/A</content>
<content>FLOWERS ZONE > 5 < or = 4</content>
<content>AMI > 5 > 4</content>
<content></content> CK-MB Value Mass 2.7 ng/mL Normal (applies to non-numeric results) [facility]) Troponin I Laboratory test result Normal (applies to non-n umeric results) [facility] ([facility]) <content>Troponin I Reference Interval f or Siemens [place] LOCI:</content>
<content></content>
<content>99th Percentile= 0.00-0.045 ng/ml</content>
<content></content>
<content>Risk Stratification:</content>
<content><= 0.10 ng/ml Decreased Risk for Adverse Clinical</content>
<content>Events.</content>
<content>0.10-1.50 ng/ml Increased Risk for Adverse Clinical</content>
<content>Events. Evaluation of additional</content>
<content>criterion and/or repeat testing in 2-6</content>
<content>hours is suggested to rule out myocardial</content>
<content>damage.</content>
<content>>= 1.50 ng/ml Indicative of Myocardial Injury.</content>
<content></content> ID Date Data Source [id number] 03/19/2020 04:54:00 PM EST [facility] ([facility]) Name Value Range Interpretation Code Description Data Laura rce(s) Supporting Document(s) aPTT in Platelet poor plasma by Coagulation assay 37.1 s 24.2-38.5 Normal (applies to non-numeric results) [facility]) ID Date Data Source [id number] 03/19/2020 04:54:00 PM EST [facility] ([facility]) Name Value Range Interpretation Code Description Data Laura rce(s) Supporting Document(s) Inr 1.08 Normal (applies to non-numeric resul ts) [facility] ([facility]) THERAPUTIC HUMAN INR VALUES INDICATIONS NORMAL RANGES PROPHYLAXIS/TREATMENT OF: VENOUS THROMBOSIS 2.0-3.0 PULMONARY EMBOLISM 2.0-3.0 PREVENTION OF SYSTEMIC EMBOLISM FROM: TISSUE HEART VALVES 2.0-3.0 ACUTE MYOCARDIAL INFARCTION 2.0-3.0 VALVULAR HEART DISEASE 2.0-3.0 ATRIAL FIBRILLATION 2.0-3.0 MECHANICAL VALVES(HIGH RISK) 2.5-3.5 RECURRENT MYOCARDIAL INFARCTION 2.5-3.5 Prothrombin Time 14.2 s 12.5-14.[address] [facility]) ID Date Data Source [id number] 03/19/2020 04:54:00 PM EST [facility] ([facility]) Name Value Range Interpretation Code Description Data Laura rce(s) Supporting Document(s) White Blood Count 4.2 10 4.0-10.0 Normal (applies to non-numeri c results) [facility]) Red Blood Count 3.68 10 4.00-5.40 Below low normal [facility] ([facility]) Hemoglobin 11.1 g/dL 12.0-15.5 Below low normal [facility] ( [facility]) Hematocrit 35.0 % 36.0-47.0 Below low normal [facility] ( [facility]) Mean Corpuscular Volume 95.1 fl 80.0-96.0 Normal ( applies to non-numeric results) [facility] ([facility]) Mean Corpuscular HGB Conc 31.7 g/dL 32.0-36.5 Below low normal [facility] ([facility]) Mean Corpuscular Hemoglobin 30.2 pg 27.0-33.0 Norm al (applies to non-numeric results) [facility] ([facility]) Platelet Count, Automated 180 10 150-450 Normal (applies to non-numeric results) [facility] ([facility]) Red Cell Distribution Width 13.5 % 11.5-14.5 Norm al (applies to non-numeric results) MED[facility] ([facility]) Lymph % 27.8 % 24.0-44.0 Normal (applies to non-numeric resul ts) [facility] ([facility]) Neutrophils % 53.0 % 36.0-66.0 Normal (applies to non-numeric re sults) [facility] ([facility]) [place] % 7.2 % 0.0-5.0 Above high normal [facility] ([facility]) Eos % 10.8 % 0.0-3.0 Above high normal [facility] ([facility]) Baso % 1.0 % 0.0-1.0 Normal (applies to non-numeric resul ts) [facility] ([facility]) Immature Granulocyte % 0.2 % 0-3.0 Normal (applies to non-n umeric results) [facility] ([facility]) Nucleated Red Blood Cell % 0.0 % 0-0 Normal (applies to n on-numeric results) [facility] ([facility]) Neutrophils # 2.2 10 1.5-8.5 Normal (applies to non-numeric re sults) [facility] ([facility]) Lymph # 1.2 10 1.5-5.0 Below low normal [facility] ( [facility]) Eos # 0.5 10 0.0-0.5 Normal (applies to non-numeric resul ts) [facility] ([facility]) [place] # 0.3 10 0.0-0.8 Normal (applies to non-numeric resul ts) [facility] ([facility]) Baso # 0.0 10 0.0-0.2 Normal (applies to non-numeric resul ts) [facility] ([facility]) ID Date Data Source [id number] 03/19/2020 04:54:00 PM EST MED[facility] ([facility]) Name Value Range Interpretation Code Description Data Laura rce(s) Supporting Document(s) Thyrotropin [Units/volume] in Serum or Plasma 5.520 uIU/ML 0. 358-3.740 Above high normal [facility] ([facility]) Thyroxine (T4) free [Mass/volume] in Serum or Plasma 0.98 ng/dL 0.76-1.46 Normal (applies to non-numeric results) [facility] ([facility]) ID Date Data Source [id number] 03/19/2020 04:54:00 PM EST MED[facility] ([facility]) Name Value Range Interpretation Code Description Data Laura rce(s) Supporting Document(s) Blood Urea Nitrogen 12 mg/dL 7-18 Normal (applies to non-nume nemo results) [facility] Glucose, Fasting 98 mg/dL 70-100 Normal (applies to non-numeric results) [facility] Creatinine For GFR 0.68 mg/dL 0.55-1.30 Normal (applies to non -numeric results) [facility] ([facility]) Glomerular Filtration Rate Laboratory test result Normal (applies to non- numeric results) [facility] ([facility]) <content>Units are mL/min/1.73 m2</content>
<content></content>
<content>Chronic Kidney Disease Staging per NKF:</content>
<content></content>
<content>Stage I & II GFR >=60 Normal to Mildly Decreased</content>
<content>Stage III GFR 30- 59 Moderately Decreased</content>
<content>Stage IV GFR 15-29 Severely Decreased</content>
<content>Stage V GFR <15 Very Little GFR Left</content>
<content>ESRD GFR <15 on WOOD FUEL PELLETIZER</content>
<content></content> Sodium Level 143 meq/L 136-145 Normal (applies to non-numeric res ults) [facility] Chloride Level 108 meq/L 98-107 Above high normal MED E[facility] ([facility]) Potassium Serum 3.4 meq/L 3.5-5.1 Below low normal [facility] E[facility] ([facility]) Carbon Dioxide Level 29 meq/L 21-32 Normal (applies to non-num evy results) [facility] ([facility]) Anion Gap 6 meq/L 8-16 Below low normal [facility] ( [facility]) Calcium Level 8.5 mg/dL 8.8-10.2 Below low normal MEDEN T ([facility]) ID Date Data Source [id number] 03/19/2020 03:07:00 PM EST MED[facility] ([facility]) Name Value Range Interpretation Code Description Data Laura rce(s) Supporting Document(s) EKG Laboratory test result [facility] ([facility]) ID Date Data Source WOUND CULTURE AND GRAM ST 02/26/2020 12:00:00 AM EDT eCW1 ([facility]) Name Value Range Interpretation Code Description Data Laura rce(s) Supporting Document(s) WOUND CULTURE AND GRAM ST eCW1 ([facility]) ID Date Data Source [id number] 02/25/2020 12:00:00 AM EDT [facility] Gladis Ventura DO Patient Name: SUE [id number] Date of : 1940 1 Date of Exam: 02/25/2020MACARIO Sparrow [id number]#: Fax: [phone] EXAM: CT ABDOMEN & PELVIS [...] and limitations as described above.Accredited by the [employer] in [place].REJI Alcala/Boyd you for referring SUE URENA to our o ffice.Electronically Signed - IRENE SARAH DO 02/25/20 15:38 Name Value Range Interpretation Code Description Data Laura rce(s) Supporting Document(s) ID Date Data Source [id number] 02/17/2020 03:59:00 PM EDT [facility] ([facility]) Name Value Range Interpretation Code Description Data Laura rce(s) Supporting Document(s) EKG Laboratory test result [facility] ([facility]) Procedure Social History Code Duration Value Status Description Data Source(s ) Alcohol intake 02/02/2021 12:00:00 AM EDT Ex-drinker (finding) comp leted Ex- drinker (finding) [facility] Smoking 01/28/2021 12:00:00 AM EDT - 05/01/1970 12:00:00 AM ES T Quit completed [facility]uit [facility] Alcohol intake 01/26/2021 12:00:00 AM EDT Ex-drinker (finding) comp leted Ex- drinker (finding) [facility] Alcohol intake 12/21/2020 12:00:00 AM EDT Ex-drinker (finding) comp leted Ex- drinker (finding) [facility] Smoking 10/27/2020 12:00:00 AM EDT Former Smoker completed Former Smoker eCW1 ([facility]) Smoking 10/20/2020 12:00:00 AM EDT Former Smoker completed Former Smoker eCW1 ([facility]) Smoking 10/20/2020 12:00:00 AM EDT Former Smoker completed Former Smoker eCW1 ([facility]) Smoking 10/06/2020 12:00:00 AM EDT Former Smoker completed Former Smoker eCW1 ([facility]) Smoking 10/06/2020 12:00:00 AM EDT Former Smoker completed Former Smoker eCW1 ([facility]) Smoking 10/05/2020 12:00:00 AM EDT Former Smoker completed Former Smoker eCW1 ([facility]) Smoking 05/28/2020 12:00:00 AM EST Patient is a former smoker completed Patient is a former smoker [facility] ([facility] ) Alcohol intake 04/02/2020 12:00:00 AM EST Not Currently completed [facility] Cigarette pack-years 04/02/2020 12:00:00 AM EST UNK completed [facility] Cigarettes smoked current (pack per day) - Reported 04/02/20 12:00:00 AM EST UNK completed [facility] Smoking 04/02/2020 12:00:00 AM EST Former smoker completed Former smoker [facility] Alcohol intake 03/25/2020 12:00:00 AM EST Not Currently completed [facility] Cigarette pack-years 03/25/2020 12:00:00 AM EST UNK completed [facility] Cigarettes smoked current (pack per day) - Reported 03/25/20 12:00:00 AM EST UNK completed [facility] Smoking 03/25/2020 12:00:00 AM EST Former smoker completed Former smoker [facility] Vital Signs ID Date Data Source UNK Name Value Range Interpretation Code Description Data Source(s) Heart rate 86 /min 86 /min [facility]) Respiratory rate 18 /min 18 /min [facility] ( [facility]) Body temperature 96.9 [degF] 96.9 [degF] [facility] ([facility]) Oxygen saturation in Arterial blood by Pulse oximetry 95 % 95 % REBECA ([facility]) [place] body weight 100 [lb_av] 100 [lb_av] FERCHO [place] ([facility]) Systolic blood pressure 134 mm[Hg] 134 mm[Hg] M EDKRISTEN ([facility]) Diastolic blood pressure 74 mm[Hg] 74 mm[Hg] REBECA ([facility]) Body height 57.6 [in_i] 57.6 [in_i] REBECA ([facility]) 4'9.60" Body weight 101.12 [lb_av] 101.12 [lb_av] FERCHO T ([facility]) Body mass index (BMI) [Ratio] 21.4 kg/m2 21.4 k g/m2 REBECA ([facility]) [place] body weight 100 [lb_av] 100 [lb_av] MEDEN T ([facility]) Systolic blood pressure 134 mm[Hg] 134 mm[Hg] M EDENT ([facility]) Heart rate 67 /min 67 /min [facility] ([facility]) Body height 57.6 [in_i] 57.6 [in_i] [facility] ([facility]) 4'9.60" Body weight 100.38 [lb_av] 100.38 [lb_av] MEDEN T ([facility]) Body mass index (BMI) [Ratio] 21.3 kg/m2 21.3 k g/m2 [facility] ([facility]) Respiratory rate 18 /min 18 /min [facility] ( [facility]) Body temperature 97.6 [degF] 97.6 [degF] [facility] ([facility]) Oxygen saturation in Arterial blood by Pulse oximetry 99 % 99 % [facility] ([facility]) Diastolic blood pressure 82 mm[Hg] 82 mm[Hg] [facility] ([facility]) Body mass index (BMI) [Ratio] 21.7 kg/m2 21.7 k g/m2 [facility] ([facility]) Systolic blood pressure 134 mm[Hg] 134 mm[Hg] M [facility] ([facility]) Body weight 102.25 [lb_av] 102.25 [lb_av] MEDEN T ([facility]) Diastolic blood pressure 74 mm[Hg] 74 mm[Hg] [facility] ([facility]) Body height 57.6 [in_i] 57.6 [in_i] [facility] ([facility]) 4'9.60" Heart rate 87 /min 87 /min [facility] ([facility]) Respiratory rate 18 /min 18 /min [facility] ( [facility]) Body temperature 97.7 [degF] 97.7 [degF] [facility] ([facility]) Oxygen saturation in Arterial blood by Pulse oximetry 97 % 97 % [facility] [place] body weight 100 [lb_av] 100 [lb_av] MEDEN T ([facility]) Systolic blood pressure 196 mm[Hg] 196 mm[Hg] [facility] Diastolic blood pressure 82 mm[Hg] 82 mm[Hg] [facility] Heart rate 64 /min 64 /min [facility] Body height 147.3 cm 147.3 cm [facility] Body weight 46.267 kg 46.267 kg [facility] Body mass index (BMI) [Ratio] 21.32 kg/m2 21.32 kg/m2 [facility] Oxygen saturation in Arterial blood by Pulse oximetry 95 % 95 % [facility] Body mass index (BMI) [Ratio] 21.1 kg/m2 21.1 k g/m2 [facility] ([facility]) Body temperature 98.2 [degF] 98.2 [degF] [facility] ([facility]) Oxygen saturation in Arterial blood by Pulse oximetry 95 % 95 % [facility] Systolic blood pressure 142 mm[Hg] 142 mm[Hg] M EDENT ([facility]) Diastolic blood pressure 76 mm[Hg] 76 mm[Hg] [facility] ([facility]) Body height 57.6 [in_i] 57.6 [in_i] [facility] 4'9.60" [place] body weight 100 [lb_av] 100 [lb_av] MEDEN T ([facility]) Body weight 99.38 [lb_av] 99.38 [lb_av] [facility] ([facility]) Heart rate 82 /min 82 /min [facility] ([facility]) Respiratory rate 18 /min 18 /min [facility] ( [facility]) Heart rate 77 /min 77 /min [facility] Body temperature 36.5 Arlyn 36.5 Arlyn [facility] Respiratory rate 16 /min 16 /min [facility] Oxygen saturation in Arterial blood by Pulse oximetry 100 % 100 % [facility] Systolic blood pressure 202 mm[Hg] 202 mm[Hg] [facility] Diastolic blood pressure 69 mm[Hg] 69 mm[Hg] [facility] Body height 147.3 cm 147.3 cm [facility] Body weight 45.8 kg 45.8 kg [facility] Body mass index (BMI) [Ratio] 21.10 kg/m2 21.10 kg/m2 [facility] Systolic blood pressure 180 mm[Hg] 180 mm[Hg] [facility] Diastolic blood pressure 74 mm[Hg] 74 mm[Hg] [facility] Heart rate 70 /min 70 /min [facility] Body height 147.3 cm 147.3 cm [facility] Body weight 47.174 kg 47.174 kg [facility] Body mass index (BMI) [Ratio] 21.74 kg/m2 21.74 kg/m2 [facility] Oxygen saturation in Arterial blood by Pulse oximetry 97 % 97 % [facility] Body weight 98.25 [lb_av] 98.25 [lb_av] [facility] ([facility]) Body mass index (BMI) [Ratio] 20.8 kg/m2 20.8 k g/m2 [facility] Heart rate 78 /min 78 /min [facility] ([facility]) Respiratory rate 14 /min 14 /min [facility] ( [facility]) Body temperature 96.8 [degF] 96.8 [degF] [facility] Oxygen saturation in Arterial blood by Pulse oximetry 98 % 98 % [facility] [place] body weight 100 [lb_av] 100 [lb_av] MEDEN T ([facility]) Systolic blood pressure 130 mm[Hg] 130 mm[Hg] M EDENT ([facility]) Diastolic blood pressure 98 mm[Hg] 98 mm[Hg] [facility] ([facility]) Body height 57.6 [in_i] 57.6 [in_i] [facility] ([facility]) 4'9.60" Systolic blood pressure 150 mm[Hg] 150 mm[Hg] [facility] Diastolic blood pressure 100 mm[Hg] 100 mm[Hg] [facility] ([facility]) Heart rate 64 /min 64 /min [facility] ([facility]) Oxygen saturation in Arterial blood by Pulse oximetry 97 % 97 % [facility] ([facility]) Body height 57 [in_i] 57 [in_i] [facility] ([facility]) 4'9" Body weight 101.00 [lb_av] 101.00 [lb_av] MEDEN T ([facility]) Body mass index (BMI) [Ratio] 21.9 kg/m2 21.9 k g/m2 [facility] ([facility]) [place] body weight 100 [lb_av] 100 [lb_av] [facility] Body weight 45.814 kg 45.814 kg [facility] ([facility]) Body surface area Derived from formula 1.35 m2 1.35 m2 [facility] ([facility]) Body weight 99.00 [lb_av] 99.00 [lb_av] [facility] ([facility]) Diastolic blood pressure 74 mm[Hg] 74 mm[Hg] [facility] ([facility]) Body mass index (BMI) [Ratio] 21.0 kg/m2 21.0 k g/m2 [facility] ([facility]) Heart rate 78 /min 78 /min [facility] ([facility]) Respiratory rate 18 /min 18 /min [facility] ( [facility]) Body height 57.6 [in_i] 57.6 [in_i] [facility] ([facility]) 4'9.60" Systolic blood pressure 136 mm[Hg] 136 mm[Hg] [facility] Body temperature 97.3 [degF] 97.3 [degF] [facility] ([facility]) Oxygen saturation in Arterial blood by Pulse oximetry 99 % 99 % [facility] ([facility]) [place] body weight 100 [lb_av] 100 [lb_av] MEDEN T ([facility]) Body weight 99 [lb_av] 99 [lb_av] eCW1 ([facility]) Body weight kg eCW1 ([facility]) Body height [in_i] eCW1 ([facility]) Body mass index (BMI) [Ratio] 19.99 kg/m2 19.99 kg/m2 eCW1 ([facility]) Heart rate 64 /min 64 /min eCW1 ([facility]) Respiratory rate 16 /min 16 /min eCW1 ([facility]) Body temperature 97.8 [degF] 97.8 [degF] eCW1 ( [facility]) Systolic blood pressure 163 mm[Hg] 163 mm[Hg] e CW1 ([facility]) Diastolic blood pressure 70 mm[Hg] 70 mm[Hg] eCW1 ([facility]) Body height 57.6 [in_i] 57.6 [in_i] MED[facility] ([facility]) 4'9.60" Body weight 104.00 [lb_av] 104.00 [lb_av] MEDEN T ([facility]) Body mass index (BMI) [Ratio] 22.0 kg/m2 22.0 k g/m2 [facility] ([facility]) Heart rate 68 /min 68 /min [facility] ([facility]) Respiratory rate 14 /min 14 /min [facility] ( [facility]) Body temperature 97.5 [degF] 97.5 [degF] [facility] ([facility]) Oxygen saturation in Arterial blood by Pulse oximetry 99 % 99 % [facility] ([facility]) [place] body weight 100 [lb_av] 100 [lb_av] MEDEN T ([facility]) Systolic blood pressure 130 mm[Hg] 130 mm[Hg] M EDENT ([facility]) Diastolic blood pressure 72 mm[Hg] 72 mm[Hg] [facility] ([facility]) Body weight 99 [lb_av] 99 [lb_av] eCW1 ([facility]) Body weight kg eCW1 ([facility]) Body height [in_i] eCW1 ([facility]) Body mass index (BMI) [Ratio] 19.99 kg/m2 19.99 kg/m2 eCW1 ([facility]) Heart rate 67 /min 67 /min eCW1 ([facility]) Respiratory rate 17 /min 17 /min eCW1 ([facility]) Body temperature 98.4 [degF] 98.4 [degF] eCW1 ( [facility]) Systolic blood pressure 199 mm[Hg] 199 mm[Hg] e CW1 ([facility]) Diastolic blood pressure 81 mm[Hg] 81 mm[Hg] eCW1 ([facility]) Body weight 98 [lb_av] 98 [lb_av] eCW1 ([facility]) Body weight kg eCW1 ([facility]) Body height [in_i] eCW1 ([facility]) Body mass index (BMI) [Ratio] 19.79 kg/m2 19.79 kg/m2 eCW1 ([facility]) Heart rate 64 /min 64 /min eCW1 ([facility]) Respiratory rate 16 /min 16 /min eCW1 ([facility]) Body temperature 98.5 [degF] 98.5 [degF] eCW1 ( [facility]) Body weight 106 [lb_av] 106 [lb_av] eCW1 ([facility]) Body weight kg eCW1 ([facility]) Body height [in_i] eCW1 ([facility]) Body mass index (BMI) [Ratio] 21.41 kg/m2 21.41 kg/m2 eCW1 ([facility]) Heart rate 76 /min 76 /min eCW1 ([facility]) Respiratory rate 18 /min 18 /min eCW1 ([facility]) Body temperature 98.4 [degF] 98.4 [degF] eCW1 ( [facility]) Systolic blood pressure 140 mm[Hg] 140 mm[Hg] e CW1 ([facility]) Diastolic blood pressure 76 mm[Hg] 76 mm[Hg] eCW1 ([facility]) Body weight 106.0 [lb_av] 106.0 [lb_av] eCW1 ([facility]) Body height [in_i] eCW1 ([facility]) Body mass index (BMI) [Ratio] 21.41 kg/m2 21.41 kg/m2 eCW1 ([facility]) Systolic blood pressure 130 mm[Hg] 130 mm[Hg] e CW1 ([facility]) Diastolic blood pressure 74 mm[Hg] 74 mm[Hg] eCW1 ([facility]) Body weight 100 [lb_av] 100 [lb_av] eCW1 ([facility]) Body weight kg eCW1 ([facility]) Body height [in_i] eCW1 ([facility]) Body mass index (BMI) [Ratio] 20.20 kg/m2 20.20 kg/m2 eCW1 ([facility]) Heart rate 93 /min 93 /min eCW1 ([facility]) Respiratory rate 18 /min 18 /min eCW1 ([facility]) Body temperature 98.2 [degF] 98.2 [degF] eCW1 ( [facility]) Systolic blood pressure 136 mm[Hg] 136 mm[Hg] e CW1 ([facility]) Diastolic blood pressure 79 mm[Hg] 79 mm[Hg] eCW1 ([facility]) Body weight 100 [lb_av] 100 [lb_av] eCW1 ([facility]) Body weight kg eCW1 ([facility]) Body height [in_i] eCW1 ([facility]) Body mass index (BMI) [Ratio] 20.20 kg/m2 20.20 kg/m2 eCW1 ([facility]) Heart rate 75 /min 75 /min eCW1 ([facility]) Respiratory rate 16 /min 16 /min eCW1 ([facility]) Body temperature 98.2 [degF] 98.2 [degF] eCW1 ( [facility]) Systolic blood pressure 137 mm[Hg] 137 mm[Hg] e CW1 ([facility]) Diastolic blood pressure 80 mm[Hg] 80 mm[Hg] eCW1 ([facility]) Body weight 100 [lb_av] 100 [lb_av] eCW1 ([facility]) Body weight kg eCW1 ([facility]) Body height [in_i] eCW1 ([facility]) Body mass index (BMI) [Ratio] 20.20 kg/m2 20.20 kg/m2 eCW1 ([facility]) Heart rate 83 /min 83 /min eCW1 ([facility]) Respiratory rate 17 /min 17 /min eCW1 ([facility]) Body temperature 99.3 [degF] 99.3 [degF] eCW1 ( [facility]) Systolic blood pressure 167 mm[Hg] 167 mm[Hg] e CW1 ([facility]) Diastolic blood pressure 78 mm[Hg] 78 mm[Hg] eCW1 ([facility]) Body temperature 98.5 [degF] 98.5 [degF] MED[facility] ([facility]) Systolic blood pressure 136 mm[Hg] 136 mm[Hg] M EDENT ([facility]) Oxygen saturation in Arterial blood by Pulse oximetry 97 % 97 % [facility] ([facility]) [place]um body weight 100 [lb_av] 100 [lb_av] MEDEN T ([facility]) Diastolic blood pressure 76 mm[Hg] 76 mm[Hg] [facility] ([facility]) Body height 57.6 [in_i] 57.6 [in_i] MEDENT ([facility]) 4'9.60" Body weight 104.25 [lb_av] 104.25 [lb_av] MEDEN T ([facility]) Body mass index (BMI) [Ratio] 22.1 kg/m2 22.1 k g/m2 MED[facility] ([facility]) Heart rate 100 /min 100 /min MED[facility] ([facility]) Respiratory rate 18 /min 18 /min MED[facility] ( [facility]) Body weight 104 [lb_av] 104 [lb_av] eCW1 ([facility]) Body weight kg eCW1 ([facility]) Body height [in_i] eCW1 ([facility]) Body mass index (BMI) [Ratio] 21.00 kg/m2 21.00 kg/m2 eCW1 ([facility]) Heart rate 91 /min 91 /min eCW1 ([facility]) Respiratory rate 16 /min 16 /min eCW1 ([facility]) Body temperature 98.2 [degF] 98.2 [degF] eCW1 ( [facility]) Body weight 104 [lb_av] 104 [lb_av] eCW1 ([facility]) Body height [in_i] eCW1 ([facility]) Body mass index (BMI) [Ratio] 21.00 kg/m2 21.00 kg/m2 eCW1 ([facility]) Heart rate 86 /min 86 /min eCW1 ([facility]) Respiratory rate 18 /min 18 /min eCW1 ([facility]) Body temperature 98.5 [degF] 98.5 [degF] eCW1 ( [facility]) Systolic blood pressure 186 mm[Hg] 186 mm[Hg] e CW1 ([facility]) Diastolic blood pressure 80 mm[Hg] 80 mm[Hg] eCW1 ([facility]) Body height 57.6 [in_i] 57.6 [in_i] MEDENT ([facility]) 4'9.60" Systolic blood pressure 166 mm[Hg] 166 mm[Hg] M EDENT ([facility]) Diastolic blood pressure 80 mm[Hg] 80 mm[Hg] MED[facility] ([facility]) Body weight 108.38 [lb_av] 108.38 [lb_av] MEDEN T ([facility]) [place] body weight 100 [lb_av] 100 [lb_av] MEDEN T ([facility]) Body mass index (BMI) [Ratio] 23.0 kg/m2 23.0 k g/m2 MED[facility] ([facility]) Heart rate 89 /min 89 /min MED[facility] ([facility]) Respiratory rate 16 /min 16 /min MED[facility] ( [facility]) Body temperature 97.1 [degF] 97.1 [degF] MED[facility] ([facility]) Oxygen saturation in Arterial blood by Pulse oximetry 96 % 96 % [facility] ([facility]) Systolic blood pressure 212 mm[Hg] 212 mm[Hg] M EDENT ([facility], [facility] Body mass index (BMI) [Ratio] 20.2 kg/m2 20.2 k g/m2 MEDENT ([facility], [facility]) Diastolic blood pressure 94 mm[Hg] 94 mm[Hg] MEDENT ([facility], [facility]) Heart rate 81 /min 81 /min MEDENT ([facility] [place], [facility]) Respiratory rate 14 /min 14 /min MEDENT ( [facility], [facility]) Oxygen saturation in Arterial blood by Pulse oximetry 99 % 99 % MEDENT ([facility], [facility]) Body temperature 97.5 [degF] 97.5 [degF] MEDENT ([facility], [facility]) Body weight 100.00 [lb_av] 100.00 [lb_av] MEDEN T ([facility], [facility]) Body height 59 [in_i] 59 [in_i] MEDENT ([facility] [place], [facility]) 4'11" Systolic blood pressure 124 mm[Hg] 124 mm[Hg] [facility] Diastolic blood pressure 80 mm[Hg] 80 mm[Hg] [facility] Heart rate 65 /min 65 /min [facility] Body height 149.9 cm 149.9 cm [facility] Body weight 48.535 kg 48.535 kg [facility] Body mass index (BMI) [Ratio] 21.61 kg/m2 21.61 kg/m2 [facility] Oxygen saturation in Arterial blood by Pulse oximetry 100 % 100 % [facility] body weight 100 [lb_av] 100 [lb_av] MEDEN T ([facility]) Body height 57.6 [in_i] 57.6 [in_i] MEDENT ([facility]) 4'9.60" Body weight 107.50 [lb_av] 107.50 [lb_av] MEDEN T ([facility]) Systolic blood pressure 122 mm[Hg] 122 mm[Hg] M EDENT ([facility]) Diastolic blood pressure 64 mm[Hg] 64 mm[Hg] MEDENT ([facility]) Body mass index (BMI) [Ratio] 22.8 kg/m2 22.8 k g/m2 MEDENT ([facility]) Heart rate 80 /min 80 /min MEDENT ([facility]) Respiratory rate 18 /min 18 /min MEDENT ( [facility]) Body temperature 98.5 [degF] 98.5 [degF] MEDENT ([facility]) Oxygen saturation in Arterial blood by Pulse oximetry 95 % 95 % MEDENT ([facility]) Body weight 109.4 [lb_av] 109.4 [lb_av] eCW1 ([facility]) Body height [in_i] eCW1 ([facility]) Body mass index (BMI) [Ratio] 22.09 kg/m2 22.09 kg/m2 eCW1 ([facility]) Systolic blood pressure 112 mm[Hg] 112 mm[Hg] e CW1 ([facility]) Diastolic blood pressure 68 mm[Hg] 68 mm[Hg] eCW1 ([facility]) Systolic blood pressure 130 mm[Hg] 130 mm[Hg] M EDENT ([facility]) Diastolic blood pressure 72 mm[Hg] 72 mm[Hg] MEDENT ([facility] ) Heart rate 78 /min 78 /min MEDENT ([facility]) Oxygen saturation in Arterial blood by Pulse oximetry 98 % 98 % [facility] ([facility]) Body temperature 96.7 [degF] 96.7 [degF] [facility] ([facility]) Body height 57 [in_i] 57 [in_i] [facility] ([facility]) 4'9" Body weight 105.00 [lb_av] 105.00 [lb_av] MEDEN T ([facility]) Body mass index (BMI) [Ratio] 22.7 kg/m2 22.7 k g/m2 [facility] ([facility]) [place] body weight 100 [lb_av] 100 [lb_av] MEDEN T ([facility]) Body weight 47.628 kg 47.628 kg [facility] ([facility]) Body surface area Derived from formula 1.37 m2 1.37 m2 [facility] ([facility]) Diastolic blood pressure 70 mm[Hg] 70 mm[Hg] [facility] ([facility]) Heart rate 91 /min 91 /min [facility] ([facility]) Respiratory rate 18 /min 18 /min [facility] ( [facility]) Body temperature 96.7 [degF] 96.7 [degF] [facility] ([facility]) Body weight 99.50 [lb_av] 99.50 [lb_av] [facility] ([facility]) Body mass index (BMI) [Ratio] 21.1 kg/m2 21.1 k g/m2 [facility] ([facility]) [place] body weight 100 [lb_av] 100 [lb_av] MEDEN T ([facility]) Oxygen saturation in Arterial blood by Pulse oximetry 97 % 97 % [facility] ([facility]) Systolic blood pressure 158 mm[Hg] 158 mm[Hg] [facility] Body height 57.6 [in_i] 57.6 [in_i] [facility] ([facility]) 4'9.60" Body weight 100 [lb_av] 100 [lb_av] eCW1 ([facility]) Body height [in_i] W1 ([facility]) Body mass index (BMI) [Ratio] 20.20 kg/m2 20.20 kg/m2 eCW1 ([facility]) Systolic blood pressure 120 mm[Hg] 120 mm[Hg] e CW1 ([facility]) Diastolic blood pressure 72 mm[Hg] 72 mm[Hg] eCW1 ([facility]) Systolic blood pressure 102 mm[Hg] 102 mm[Hg] [facility] Diastolic blood pressure 56 mm[Hg] 56 mm[Hg] [facility] Heart rate 80 /min 80 /min [facility] Body height 149.9 cm 149.9 cm [facility] Body weight 44.906 kg 44.906 kg [facility] Body mass index (BMI) [Ratio] 20.00 kg/m2 20.00 kg/m2 [facility] Oxygen saturation in Arterial blood by Pulse oximetry 96 % 96 % [facility] Systolic blood pressure 112 mm[Hg] 112 mm[Hg] [facility] Diastolic blood pressure 60 mm[Hg] 60 mm[Hg] [facility] Body height 149.9 cm 149.9 cm [facility] Body weight 43.999 kg 43.999 kg [facility] Body mass index (BMI) [Ratio] 19.59 kg/m2 19.59 kg/m2 [facility] Body temperature 96.8 [degF] 96.8 [degF] MEDENT ([facility]) Body mass index (BMI) [Ratio] 20.6 kg/m2 20.6 k g/m2 MEDENT ([facility]) Body weight 97.00 [lb_av] 97.00 [lb_av] MEDENT ([facility]) Heart rate 78 /min 78 /min MED[facility] ([facility]) Respiratory rate 18 /min 18 /min MEDENT ( [facility]) Oxygen saturation in Arterial blood by Pulse oximetry 95 % 95 % MEDENT ([facility]) [place] body weight 100 [lb_av] 100 [lb_av] MEDEN T ([facility]) Systolic blood pressure 132 mm[Hg] 132 mm[Hg] M EDKRISETN ([facility]) Diastolic blood pressure 64 mm[Hg] 64 mm[Hg] [facility] Body height 57.6 [in_i] 57.6 [in_i] [facility] ([facility]) 4'9.60" Systolic blood pressure 164 mm[Hg] 164 mm[Hg] [facility] Diastolic blood pressure 90 mm[Hg] 90 mm[Hg] [facility] Heart rate 81 /min 81 /min [facility] Body height 149.9 cm 149.9 cm [facility] Body weight 43.999 kg 43.999 kg [facility] Body mass index (BMI) [Ratio] 19.59 kg/m2 19.59 kg/m2 [facility] Oxygen saturation in Arterial blood by Pulse oximetry 93 % 93 % [facility] Respiratory rate 18 /min 18 /min [facility] Body height 57.6 [in_i] 57.6 [in_i] [facility] ([facility]) 4'9.60" Systolic blood pressure 220 mm[Hg] 220 mm[Hg] M EDKRISTEN ([facility]) Diastolic blood pressure 93 mm[Hg] 93 mm[Hg] [facility] Body weight 104.50 [lb_av] 104.50 [lb_av] MEDEN T ([facility]) Body mass index (BMI) [Ratio] 22.1 kg/m2 22.1 k g/m2 [facility] Heart rate 88 /min 88 /min [facility] ([facility]) Body temperature 98.2 [degF] 98.2 [degF] [facility] ([facility]) Oxygen saturation in Arterial blood by Pulse oximetry 95 % 95 % [facility] [place] body weight 100 [lb_av] 100 [lb_av] MEDEN T ([facility]) Body mass index (BMI) [Ratio] 21.21 kg/m2 21.21 kg/m2 eCW1 ([facility]) Body weight 105.0 [lb_av] 105.0 [lb_av] eCW1 ([facility]) Body height [in_i] eCW1 ([facility]) Systolic blood pressure 124 mm[Hg] 124 mm[Hg] e CW1 ([facility]) Diastolic blood pressure 78 mm[Hg] 78 mm[Hg] eCW1 ([facility]) Systolic blood pressure 137 mm[Hg] 137 mm[Hg] M KARLA ([facility]) lay 142/82, sit 160/90, standing 168/90 Diastolic blood pressure 90 mm[Hg] 90 mm[Hg] REBECA ([facility]) lay 142/82, sit 160/90, standing 168/90 Body height 57.6 [in_i] 57.6 [in_i] MEDKRISTEN ([facility]) 4'9.60" Body weight 103.00 [lb_av] 103.00 [lb_av] MEDEN T ([facility]) Body mass index (BMI) [Ratio] 21.8 kg/m2 21.8 k g/m2 [facility] Heart rate 71 /min 71 /min [facility] Respiratory [facility] 16 /min 16 /min [facility] Body temperature 97.3 [degF] 97.3 [degF] [facility] Oxygen saturation in Arterial blood by Pulse oximetry 98 % 98 % [facility] [place] body weight 100 [lb_av] 100 [lb_av] MEDEN T ([facility]) Patient Treatment Plan of Care Planned Activity Planned Date Details Description Data Source (s) Losartan Potassium 100 MG Oral Tablet 02/02/2021 12:00:00 AM EDT [facility] Furosemide 40 MG Oral Tablet 01/28/2021 12:00:00 AM EDT [facility] rivaroxaban 20 MG Oral Tablet 01/27/2021 12:00:00 AM EDT [facility] normal saline flush 0.9 % injection 3 mL 01/26/2021 03:00:00 PM EDT [facility] normal saline flush 0.9 % injection 3 mL 01/26/2021 02:00:00 PM EDT [facility] normal saline flush 0.9 % injection 3 mL 01/26/2021 02:00:00 PM EDT [facility] Nitroglycerin 0.4 MG Sublingual Tablet 01/26/2021 12:04:00 PM EDT [facility] Acetaminophen 325 MG Oral Tablet 01/26/2021 12:04:00 PM EDT [facility] clopidogrel 75 MG Oral Tablet 01/18/2021 12:00:00 AM EDT [facility] Labetalol hydrochloride 100 MG Oral Tablet 01/13/2021 12:00:00 AM E DT [facility] Labetalol hydrochloride 100 MG Oral Tablet 01/08/2021 12:00:00 AM E DT [facility] Amylases 00462 UNT / Endopeptidases 6300 0 UNT / Lipase 10422 UNT Delayed Release Oral Capsule [Zenpep] 12/17/2020 12:00:00 AM EDT [facility] Digestive Enzymes (LIPASE CONCENTRATE-HP PO) 12/16/2020 12:00:00 AM EDT [facility] Furosemide 20 MG Oral Tablet 06/25/2020 12:00:00 AM EST [facility] Labetalol hydrochloride 100 MG Oral Tablet 06/25/2020 12:00:00 AM E [facility] Levothyroxine Sodium 0.075 MG Oral Tablet 04/02/2020 12:00:00 AM ES T [facility] Chlorthalidone 25 MG Oral Tablet 04/02/2020 12:00:00 AM EST [facility] Amlodipine 10 MG Oral Tablet 04/02/2020 12:00:00 AM EST [facility] Furosemide 20 MG Oral Tablet 04/02/2020 12:00:00 AM EST [facility] Labetalol hydrochloride 100 MG Oral Tablet 04/02/2020 12:00:00 AM E [facility] Losartan Potassium 50 MG Oral Tablet 04/02/2020 12:00:00 AM EST [facility] Chlorthalidone 25 MG Oral Tablet 03/25/2020 12:00:00 AM EST [facility] Amlodipine 10 MG Oral Tablet 03/25/2020 12:00:00 AM EST [facility] Levothyroxine Sodium 0.075 MG Oral Tablet 03/20/2020 12:00:00 AM ES T [facility] Amlodipine 2.5 MG Oral Tablet 03/20/2020 12:00:00 AM EST [facility] Mupirocin 0.02 MG/MG Topical Ointment 03/05/2020 12:00:00 AM EST [facility] Mupirocin 0.02 MG/MG Topical Ointment 03/05/2020 12:00:00 AM EST eCW1 ([facility]) Mupirocin 0.02 MG/MG Topical Ointment 03/05/2020 12:00:00 AM EST eCW1 ([facility]) Mupirocin 0.02 MG/MG Topical Ointment 03/05/2020 12:00:00 AM EST eCW1 ([facility]) doxycycline hyclate 100 MG Oral Capsule 03/03/2020 12:00:00 AM EST eCW1 ([facility]) doxycycline hyclate 100 MG Oral Capsule 03/03/2020 12:00:00 AM EST eCW1 ([facility]) doxycycline hyclate 100 MG Oral Capsule 03/03/2020 12:00:00 AM EST eCW1 ([facility]) doxycycline hyclate 100 MG Oral Capsule 03/03/2020 12:00:00 AM EST eCW1 ([facility]) rivaroxaban 20 MG Oral Tablet 10/06/2019 12:00:00 AM EDT [facility] Levothyroxine Sodium 0.05 MG Oral Tablet 08/05/2019 12:00:00 AM EDT [facility] Labetalol hydrochloride 100 MG Oral Tablet 04/23/2019 12:00:00 AM E [facility] Losartan Potassium 50 MG Oral Tablet 02/22/2019 12:00:00 AM EDT [facility] rivaroxaban 20 MG Oral Tablet [facility] Losartan Potassium 50 MG Oral Tablet [facility] ferrous sulfate 325 MG Oral Tablet [facility] Labetalol hydrochloride 100 MG Oral Tablet [facility] Furosemide 20 MG Oral Tablet [facility] Furosemide 40 MG Oral Tablet [facility]
[2021-02-27] MEDS ORDERED: PILL CUTTER 1 EACH XX PRN (22:05)
[2021-02-27] MEDS ORDERED: ACETAMINOPHEN TAB 650MG DOSE (2X325MG) PO PRN (23:05)
[2021-02-27] MEDS ORDERED: LOPERAMIDE 2 MG CAPLET PO PRN (23:05)
[2021-02-27] MEDS ORDERED: SYMBICORT 160/4.5MCG INHALER 6GM INH PRN (23:05)
[2021-02-27] MEDS ORDERED: MAALOX 30 ML SUSP *UDC PO PRN (23:05)
[2021-02-27] MEDS ORDERED: MOM 30ML SUSPENSION UDC PO PRN (23:05)
--- NOTE | 2021-02-27 23:05 | HPEPDOC ---
[facility] Medical History & Physical Date of Admission Feb 27, 2021 Date of Service: Feb 27, 2021 Primary Care Physician: GLADIS CELESTIN DO Other Provider Dr. Seth Acosta, cardiology; Dr. Cadence Huang, gastroenterology ([place]); Dr. Deangelo Henriquez, pulmonology Attending Physician: NOLA ELLIS MD History and Physical CHIEF COMPLAINT: Dry heaves & lightheadedness HISTORY OF PRESENT ILLNESS: Ita is a pleasant 80yo female with an extensive PMHx most notable for CAD w/ RI 15ya s/p stent x1, pAfib w/ DVT 6ya on xarelto, TIA, aortic stenosis, HFpEF, Stomach CA s/p chemo, rad, & partial gastrectomy 16ya/Cervical CA s/p hysterectomy 1967/left breast CA s/p lumpectomy 19yo, HTN, hypothyroidism (and other co-morbidities detailed below) who presented to the [facility] ED via EMS on the evening of 02/27/21 complaining primarily of dry heaving. Patient reports that approximately 12:30 in the afternoon, she began to have pretty consistent episodes of dry heaving that would occasionally yield mucus vomitus. She denies any emesis of food particles, hematemesis or coffee-ground emesis. She reports her last solid meal was this morning. Around approximately 4 PM in the afternoon, she went to stand up and walk to the bathroom, but after standing, felt significantly lightheaded and sat right back down. She denied any dizziness/room spinning sensation. She then called her daughter who subsequently came to check on her and felt due to potential fall risk that it was best EMS be called to transport patient to the hospital. In the ED, patient was found to have severe asymptomatic hypertension (hypertensive urgency) with zenith blood pressure of 215/105. She denied any headache, blurry vision, double vision, chest pain, chest pressure, palpit ations, shortness of breath, or pleuritic chest pain. During an episode of dry heaving in the ED, patient experienced transient bradycardia down to heart rate of 33 bpm on monitoring. With the bradycardia and in the setting of her hypertensive urgency, ED provider administered a 10 mg IV hydralazine dose. Patient responded well to this as her pressures came down into the [id number] range systolic. It is important to note that patient did not take her evening 100 mg home PO labetalol dose. Due to the episode of lightheadedness, patient underwent a CT head without contrast that was unremarkable for any acute findings other than signs consistent with acute sinusitis. Patient denied any sinus pressure, rhinorrhea, fever, chills, or sweats at time of admission. Zofran administered in the ED significantly improved the patient's nausea and dry heaving frequency. Of particular note, patient was recently sent to [facility] by her outpatient rn integrity (Dr. Acosta) for presumed catheterization procedure to assess the severity of her aortic stenosis. Patient reports that ultimately catheterization was unsuccessful due to her "poor [venous] access." As a result, Dr. Acosta will be performing a transesophageal echocardiogram on the patient this coming 03/03/21. Ultimately, the patient was admitted under care of the hospitalist service in the setting of hypertensive urgency with continued monitoring and work-up of lightheadedness and transient bradycardia. PAST MEDICAL HISTORY: Coronary artery disease status post RI approximately 15ya with placement of 1 stent; follows with Dr. Acosta of cardiology on outpatient basis Aortic stenosis; as discussed in HPI, unsuccessful catheterization assessment at [facility] earlier this month and will be going for a PUNEET with Dr. Acosta on 03/03/2021 TIA roughly 10 years ago in [place] HFpEF; last echo on 04/22/2019, EF 70-75% with grade 1 diastolic dysfunction, pulmonary artery pressure in the high thirties correlating with mild pulmonary hypertension Paroxysmal atrial fibrillation on Xarelto DVT roughly 6 years ago (as mentioned above, takes Xarelto as outpatient in the setting of pAfib) Stomach cancer status post chemotherapy, radiation, and partial gastrectomy; follows with Dr. Olivia Huang of gastroenterology in [place] as outpatient Cervical cancer status post hysterectomy 1966 Left breast cancer status post lumpectomy; diagnosed roughly 20 years ago Chronic anemia; currently being worked-up by pt's PCP (Dr. Celestin) Hypertension Hypothyroidism Dyslipidemia (reported intolerance/adverse reaction to Lipitor) Asthma; follows with Dr. Deangelo Baldwin of pulmonology as outpatient and takes Symbicort daily Pancreatic insufficiency, on replacement lipase, amylase, protease Left ankle fracture after suffering skiing accident Acid reflux PAST SURGICAL HISTORY: Partial gastrectomy approximately 17 years ago PCI with stent roughly 15 years ago in the setting of RI Hysterectomy 1966 Bilateral total hip arthroplasties Left ankle open reduction internal fixation SOCIAL HISTORY: Patient is a . She lives alone in [place] but her adopted sister lives across the street. She has a daughter and also had a son who is . 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 Denies any current or former use of alcohol or illegal/IV drugs. FAMILY HISTORY: Mother: COPD Son: ; lymphoma ALLERGIES: Please see below. REVIEW OF SYSTEMS: CONSTITUTIONAL: Denies recent fever, chills, night sweats, or unintentional change in weight. HEENT: Reports chronic tinnitus and decreased hearing. Denies any recent blurry vision, double vision, sinus congestion, or rhinorrhea CARDIOVASCULAR: Denies any chest pain, chest pressure, or palpitations. Reports occasional lower extremity swelling RESPIRATORY: Reports chronic cough that occasionally produces clear mucus; denies any dyspnea, pleuritic chest pain, or hemoptysis GASTROINTESTINAL: Reports nausea and dry heaving with occasional mucus vomitus that started abruptly around 1230 this afternoon as described in HPI. Also reports chronic softer stools. Denies any associated abdominal pain or blood in stool. GENITOURINARY: Denies dysuria or hematuria MUSCULOSKELETAL: Denies any new significant myalgias or arthralgias NEUROLOGICAL: Denies headache, gait instability or recent falls, numbness or paresthesias of extremities ENDOCRINE: Reports chronic cold intolerance HEMATOLOGIC: Reports easy bruising in the setting of her Xarelto. Denies any recent easy bleeding. LYMPHATIC: Denies any new lumps or bumps. HOME MEDICATIONS: Please see below. PHYSICAL EXAMINATION: VITAL SIGNS: Temperature 96.5, pulse 90, respiratory rate 12, blood pressure 163/76, pulse oximetry 98% on room air. GENERAL APPEARANCE: Very pleasant elderly and frail female lying upright in bed. Alert and oriented x3. NAD. HEENT: Normocephalic, atraumatic. Mild scleral injection bilaterally. Anicteric sclera. No significant conjunctival pallor. Oral cavity: Wearing upper and lower dentures. MMM. No pharyngeal erythema or exudate appreciated. Neck: Quite thin. Trachea midline. No lymphadenopathy appreciated. No significant JVD appreciated. CARDIOVASCULAR: 3/6 systolic murmur heard at all listening post but most prominent over the right parasternal second intercostal space. Regular rate, regular rhythm. No rubs were appreciated. LUNGS: Decreased tidal volume bilaterally. Mild higher pitched wheezes are appreciated bilaterally with posterior auscultation. No significant rhonchi or crackles are appreciated. Symmetric chest expansion. No accessory muscle use noted. Breathing room air. Speaking full sentences. ABDOMEN: Soft and nondistended. There is some moderate tenderness suprapubical ly as well as in the right and left lower quadrants. Normoactive bowel sounds throughout. No rigidity appreciated. Midline well-healed incisional scars visible. MUSCULOSKELETAL: 5 out of 5 muscle strength of upper extremities bilaterally. 4/5 muscle strength of left lower extremity and 5/5 muscle strength of right lower extremity. EXTREMITIES: There is bilateral forearm and lower extremity irvin kening/hyperpigmentation of skin. There is some swelling bilaterally of lower extremities but no pitting edema is appreciated. Moderate tenderness of bilateral lower extremities with anterior palpation. NEUROLOGICAL: Decreased hearing bilaterally, otherwise cranial nerve testing 3 through 12 was grossly intact. Patient is awake, alert and oriented x3. No dysdiadochokinesis. Responding appropriate all questions and commands. PSYCHIATRIC: Pleasant mood. Appropriate appearing affect. LABORATORY DATA: Please see below. IMAGING: Portable chest x-ray, 02/27/2021 FINDINGS: Lungs: Increased opacity demonstrated in the left perihilar region may represent an infiltrate and or chronic scarring. Remaining lungs are clear. Pleural spaces: Blunting left pleural contour likely chronic although a small effusion not excluded. Heart/Mediastinum: Unremarkable. No cardiomegaly. Bones/joints: Degenerative arthropathy left glenohumeral joint. IMPRESSION: 1. Increased opacity demonstrated in the left perihilar region may represent an infiltrate and or chronic scarring. 2. Otherwise unremarkable. Head CT without contrast, 02/27/2021- FINDINGS: Brain: There is moderate parenchymal volume loss. White matter changes are demonstrated in the subcortical, centrum semiovale and periventricular white matter consistent with chronic age related small vessel ischemic changes. Cerebral ventricles: The degree of ventricular dilatation is normal for age and/or degree of atrophy present. Paranasal sinuses: Inflammatory changes in the ethmoid and maxillary sinuses with air-fluid levels demonstrated in the maxillary sinuses, finding which may indicate acute sinusitis. Mastoid air cells: Visualized mastoid air cells are well aerated. Vasculature: Atherosclerotic calcifications are demonstrated in the intracranial carotid arteries bilaterally as well as in the vertebral basilar system. Bones/joints: Unremarkable. No acute fracture. Soft tissues: Unremarkable. IMPRESSION: 1. Inflammatory changes in the ethmoid and maxillary sinuses with air-fluid levels demonstrated in the maxillary sinuses, finding which may indicate acute sinusitis. 2. There is moderate parenchymal volume loss. White matter changes are demonstrated in the subcortical, centrum semiovale and periventricular white matter consistent with chronic age related small vessel ischemic changes. 3. The degree of ventricular dilatation is normal for age and/or degree of atrophy present. 4. No acute intracranial findings. MICROBIOLOGY: Please see below. ASSESSMENT & PLAN: This is an 80yo female w/ an extensive PMHx most notable for CAD w/ RI s/p stent, pAfib and DVT on xarelto, aortic stenosis, HFpEF, TIA, stomach ca s/p chemo, rad, partial gastrectomy/remote cervical CA s/p hysterectomy/left breast CA s/p lumpectomy, HTN, asthma, and hypothyroidism who presented to the ED on 02/27/21 via EMS c/o nausea with persistent dry heaves with an episode of lightheadedness. In the ED, she had hypertensive urgency and a transient episode of bradycardia w/ dry heaving. Pt was admitted in the setting of hypertensive urgency with continued monitoring and work-up of lightheadedness and transient bradycardia. #Severe asymptomatic hypertension i/s/o hx of HTN -possibly 2/2 missed PM home PO labetalol dose as well as 8+ hours of consistent dry heaving -Pt denied chest pain, chest pressure, palpitations, MUNGUIA, acute vision sxs -Zenith blood pressure of 215/105 -Administered one-time dose of 10 mg IV hydralazine, with pressures dropping to systolics of [id number] -Due to missed evening home dose of labetalol, one-time 100 mg dose ordered upon admission; home 100 mg twice daily labetalol dosing to begin on the morning of 02/28 -In addition to the home labetalol being continued, home losartan also continued -EKG showed NSR with no apparent significant arrhythmias -Negative troponin -Initial lab work in the ED was largely unremarkable -Repeat morning labs have been ordered -Telemetry #Lightheadedness with transient episode of bradycardia -Patient had an episode of lightheadedness around 4 PM on 02/27 after standing up and attempting to walk to the bathroom; able to safely sit back down with no loss of consciousness or fall; denied any dizziness -Patient reports that she has chronic intermittent episodes of lightheadedness -Episode of bradycardia occurring transiently with dry heaving in the ED -At time of admission, patient's heart rate was 90 bpm -The transient bradycardia may have been secondary to vagal stimulation from dry heaving as well as significant aortic stenosis -Orthostatic vital signs have been ordered -Telemetry -Day team may consider possible evaluation by therapy services #Nausea and persistent dry heaving, improved -Patient started having nausea and persistent episodes of dry heaves since 12:30 PM on 02/27 -Patient was given Zofran in the ED which is helped to significantly improve her symptoms to the point her appetite had returned and she was interested in eating -Last significant meal was breakfast on 02/27 -Advance diet as tolerated (2 g sodium) was ordered upon admission as patient's appetite had improved and her nausea had largely resolved -Electrolytes and liver enzymes WNL in the ED -prn zofran ordered upon admission; of note, QTC on EKG in the ED was 437 #Increased left perihilar region opacity on imaging -Portable chest x-ray in the ED showed increased opacity of the left perihilar region that could be infiltrate versus scarring -Patient has no clinical signs of pneumonia; she is saturating well, afebrile, and has no leukocytosis #Findings suggestive of acute sinusitis on Head CT -Head CT without contrast showed findings potentially consistent with acute sinusitis -Patient denied any sinus pressure, headache, or rhinorrhea Patient has been afebrile with no leukocytosis #Aortic stenosis -As discussed in HPI, recently had a failed work-up evaluation at [facility] due to inability to gain venous access for catheterization to assess degree of stenosis -A PUNEET has been planned with Dr. Acosta on Monday, 03/03 #CAD with prior RI s/p stent -Follows with Dr. Acosta as outpatient for cardiology care -Patient suffered an RI and required PCI with stent roughly 15 years ago -At time of admission, no aspirin or other antiplatelet medications were on her formulary -Home Xarelto continued -Telemetry #Normocytic hypochromic anemia in the setting of chronic anemia -Hgb 9.3 in the ED -Recent baseline hemoglobin appears to be about 10 -Speaking with patient, she reports history of chronic anemia for which she is currently being worked up by her PCP in the form of weekly CBCs -Patient states that her CBC on 02/26 showed a Hgb of 9, with the prior week measurement being 8.2, and the week before that 8; based on this, anemia appears to be improving -No iron studies have been ordered since 2019 on hospital records, therefore they were ordered upon admission -No active bleeding at time of admission with no hematemesis with current dry heaving -Due to CAD history, threshold to transfuse would be should she drop under 8 -Type and screen #Hypothyroidism -Patient on levothyroxine as outpatient -initial TSH slightly elevated at 4 with normal free T4 -In the setting of hospital admission and active symptoms, as well as her advanced age, this mild TSH can be reevaluated as outpatient -For now, home levothyroxine was continued #Paroxysmal atrial fibrillation, on Xarelto as outpatient -Rate has been controlled since presentation; at time of admission, cardiac exam was clinically regular rhythm; patient denied any chest pain or palpitations -Telemetry -Home Xarelto continued #HFpEF -Appears euvolemic on admission exam -Most recent echo on file is from March 2019 which showed EF 70-75% with grade 1 diastolic dysfunction, and pulmonary artery pressures in the upper 30s suggestive of mild pulmonary hypertension -As needed for lower extremity edema home po furosemide continued upon admission #Asthma -Home daily Symbicort continued -Follows with Dr. Baldwin of pulmonology on outpatient basis #Pancreatic insufficiency -Patient is on home protease, lipase, and amylase combined capsule -Hospital analogous formulary replacement medication ordered #History of multiple malignancies -As discussed in HPI and throughout this note, patient has a history of stomach cancer status post chemo, radiation, and partial gastrectomy/cervical cancer status post hysterectomy/left breast cancer status post lumpectomy #Acid reflux -home PPI contd #DVT prophylaxis: home xarelto continued Code Status: Full code Disposition: Admit for continued monitoring in the setting of hypertensive urgency and work-up for possible orthostatic hypotension in the setting of episode of lightheadedness; should patient remain hemodynamically stable and had no significant issues on work-up/monitoring, potentially may be discharged in 24-48 hours. Vital Signs Vital Signs Date Time Temp Pulse Resp B/P (MAP) Pulse Ox O2 Delivery O2 Flow Rate FiO2 10/30/21 22:15 150/75 (100) 02/27/21 22:00 91 16 97 Room Air 02/27/21 20:25 96.5 Laboratory Data Labs 24H Laboratory Tests 2 02/27/21 20:48: Immature Granulocyte % (Auto) 0.2, Neutrophils (%) (Auto) 54.2, Lymphocytes (%) (Auto) 25.1, Monocytes (%) (Auto) 5.5, Eosinophils (%) (Auto) 13.3H, Basophils (%) (Auto) 1.7H, Neutrophils # (Auto) 2.3, Lymphocytes # (Auto) 1.0L, Monocytes # (Auto) 0.2, Eosinophils # (Auto) 0.6H, Basophils # (Auto) 0.1, Nucleated Red Blood Cells % (auto) 0.0, Prothrombin Time 17.0H, Prothromb Time International Ratio 1.34, Activated Partial Thromboplast Time 38.9H 02/27/21 20:49: Anion Gap 5L, Glomerular Filtration Rate > 60.0, Calcium Level 8.2L, Magnesium Level 1.9, Total Bilirubin 0.4, Direct Bilirubin 0.1, Aspartate Amino Transf (AST/SGOT) 19, Alanine Aminotransferase (ALT/SGPT) 22, Alkaline Phosphatase 117, Total Creatine Kinase 71, Creatine Kinase MB 2.3, Creatine Kinase MB Relative Index 3.24, Troponin I < 0.02, Total Protein 6.5, Albumin 2.9L, Albumin/Globulin Ratio 0.8L, Lipase 17L, Thyroid Stimulating Hormone (TSH) 4.390H, Free Thyroxine 1.05 02/27/21 20:51: Coronavirus (COVID-19)(PCR) NEGATIVE, Influenza Type A (RT-PCR) NEGATIVE, Influenza Type B (RT-PCR) NEGATIVE, Respiratory Syncytial Virus (PCR) NEGATIVE CBC/BMP Laboratory Tests 02/27/21 20:48 02/27/21 20:49 Home Medications Scheduled Cyanocobalamin (Cyanocobalamin Injection) 1,000 Mcg/1 Ml Vial, 1,000 MCG IM QMONTH Ergocalciferol (Vitamin D2) (Drisdol) 1,250 Mcg Capsule, 50,000 UNIT PO QWEEK FRIDAYS Labetalol HCl (Labetalol HCl) 100 Mg Tablet, 100 MG PO BID Levothyroxine Sodium (Synthroid) 75 Mcg Tablet, 75 MCG PO DAILY Lipase/Protease/Amylase (Zenpep Dr 20,000 Unit Capsule) 1 Each Capsule.dr, 3 CAP PO TID Losartan Potassium (Losartan Potassium) 100 Mg Tablet, 100 MG PO DAILY Omeprazole (Omeprazole) 40 Mg Capsule.dr, 40 MG PO DAILY Rivaroxaban (Xarelto) 20 Mg Tablet, 20 MG PO DAILY Scheduled PRN Budesonide/Formoterol (Symbicort 160-4.5 Mcg Inhaler) 6 Gm Hfa.aer.ad, 2 PUFFS INH BID PRN for WHEEZING Furosemide (Furosemide) 40 Mg Tablet, 80 MG PO DAILY PRN for EDEMA Loperamide HCl (Loperamide) 2 Mg Capsule, 4 MG PO DAILY PRN for DIARRHEA Allergies Coded Allergies: atorvastatin (Verified Allergy, Intermediate, mulscle pain /hives, 02/19/21) tramadol (Verified Adverse Reaction, Intermediate, took 2 and had hypertention went to ER, 02/19/21) adhesive (Verified Adverse Reaction, Unknown, tears skin, 02/19/21) gabapentin (Verified Adverse Reaction, Unknown, visual hallucinations, 02/19/21) visual hallucinations GME ATTESTATION GME ATTESTATION My faculty preceptor for this patient encounter was physically present during the encounter and was fully available. All aspects of the patient interview, examination, medical decision making process, and medical care plan development were reviewed and approved by the faculty preceptor. The faculty preceptor is aware and concurs with the plan as stated in the body of this note and will attest to such by his/her cosignature. ATTENDING NOTE I independently examined the patient, reviewed the note and agree with the findi ngs as documented by TIME OF SERVICE 11:16AM is an 79 yr old w a hx of Chronic HTN, Asthma, TIA, A Fib, Hypothyroidism, Anemia, Osteoporosis, MDS, CAD w stent, Carotid artery disease and Stomach cancer in remission who is admitted for hypertensive urgency. Rest per 's H&P VIKY JUSTIN D.O. Feb 27, 2021 23:05 NOLA ELLIS MD Feb 28, 2021 05:43
[2021-02-27] MEDS ORDERED: LABETALOL 100MG TAB PO ONE (23:25)
[2021-02-28 00:04] LABS: FERRITIN 35 NG/ML (8-252); IRON (FE) 40 UG/DL (50-170); PERCENT SATURATION 15.7 % (13.2-45.0); TOTAL IRON BINDING CAPACITY 254 UG/DL (250-450)
--- NOTE | 2021-02-28 01:55 | IPNPDOC ---
Text Note Date of Service The patient was seen on 02/28/21. NOTE ATTENDING ADDENDUM TIME OF SERVICE 11:16AM is an 79 yr old w a hx of Chronic HTN, Asthma, TIA, A Fib, Hypothyroidism, Anemia, Osteoporosis, MDS, CAD w stent, Carotid artery disease and Stomach cancer in remission who is admitted for hypertensive urgency. Rest per 's H&P NOLA ELLIS MD Feb 28, 2021 01:54
[2021-02-28] MEDS ORDERED: FUROSEMIDE 40 MG TAB PO PRN (02:00)
[2021-02-28 04:00] VITALS: BP_SYST 105; BP_SYST 140; BP_DIAS 53; BP_DIAS 63
[2021-02-28 05:38] LABS: HEMATOCRIT 30.4 % (36.0-47.0); HEMOGLOBIN 9.4 g/dl (12.0-15.5); MEAN CORPUSCULAR HEMOGLOBIN 28.1 pg (27.0-33.0); MEAN CORPUSCULAR HGB CONC 30.9 g/dl (32.0-36.5); MEAN CORPUSCULAR VOLUME 90.7 fl (80.0-96.0); PLATELET COUNT, AUTOMATED 232 10^3/uL (150-450); RED BLOOD COUNT 3.35 10^6/uL (4.00-5.40); WHITE BLOOD COUNT 3.9 10^3/uL (4.0-10.0)
[2021-02-28] MEDS ORDERED: LEVOTHYROXINE 75MCG TABLET (0.075MG) PO SCH (06:00)
[2021-02-28 06:11] LABS: ALBUMIN 2.6 GM/DL (3.2-5.2); ALT/SGPT 19 U/L (12-78); BILIRUBIN,TOTAL 0.3 MG/DL (0.2-1.0); BLOOD UREA NITROGEN 11 MG/DL (7-18); CALCIUM LEVEL 8.1 MG/DL (8.8-10.2); CARBON DIOXIDE LEVEL 30 MEQ/L (21-32); CHLORIDE LEVEL 111 MEQ/L (98-107); CREATININE FOR GFR 0.73 MG/DL (0.55-1.30); GLOMERULAR FILTRATION RATE > 60.0 (>32); GLUCOSE, FASTING 107 MG/DL (70-100); POTASSIUM SERUM 3.7 MEQ/L (3.5-5.1); SODIUM LEVEL 144 MEQ/L (136-145); TOTAL PROTEIN 5.9 GM/DL (6.4-8.2)
[2021-02-28] MEDS ORDERED: NORV5TAB PO (07:52)
[2021-02-28] MEDS ORDERED: SELF1KIT MC (07:52)
[2021-02-28] MEDS ORDERED: amLODIPine 5 MG TAB PO PRN (07:55)
[2021-02-28 08:00] VITALS: BP 188/74
[2021-02-28] MEDS ORDERED: AUGM875T28 PO (08:06)
[2021-02-28] MEDS ORDERED: BACITAB PO (08:07)
[2021-02-28 08:22] VITALS: BP 188/80
[2021-02-28] MEDS ORDERED: RIVAROXABAN 20 MG TAB (XARELTO) PO SCH (09:00)
[2021-02-28] MEDS ORDERED: CREON-12 CAPSULE PO SCH (09:00)
[2021-02-28] MEDS ORDERED: LABETALOL 100MG TAB PO SCH ×2 (09:00)
[2021-02-28] MEDS ORDERED: OMEPRAZOLE 20 MG CAP PO SCH (09:00)
[2021-02-28] MEDS ORDERED: AUGMENTIN 500 MG TAB PO SCH (09:00)
[2021-02-28] MEDS ORDERED: LOSARTAN 50MG TABLET PO SCH ×2 (09:00)
[2021-02-28 10:45] VITALS: BP 132/68
--- NOTE | 2021-02-28 12:37 | DSES ---
DISCHARGE SUMMARY DATE OF ADMISSION: 02/27/2021 DATE OF DISCHARGE: 02/28/2021 PRIMARY DISCHARGE DIAGNOSES: 1. Hypertensive urgency. 2. Dizziness secondary to hypertensive urgency, negative cardiac markers. 3. History of CAD, status post HI. 4. History of aortic stenosis. 5. History of TIA. 6. Compensated congestive heart failure with preserved systolic function. 7. Paroxysmal atrial fibrillation. 8. History of DVT. 9. History of stomach cancer, status post chemoradiation, partial gastrectomy. 10. History of cervical cancer, status post hysterectomy. 11. Left breast cancer, status post lumpectomy. 12. Chronic anemia. 13. Hypothyroidism. 14. Dyslipidemia. 15. Asthma. 16. Pancreatic insufficiency on chronic Pancrelipase. 17. Gastroesophageal reflux disease. 18. Acute bacterial sinusitis. DISCHARGE MEDICATIONS: 1. Labetalol 100 mg b.i.d. 2. Losartan 100 mg daily. 3. Norvasc 5 mg b.i.d. as needed for systolic pressure greater than 150. 4. Augmentin one tab p.o. b.i.d. 5. Bacid one tab with meals q.h.s. 6. Symbicort two puffs inhaled b.i.d. 7. Cyanocobalamin 1000 mcg IM every month. 8. Drisdol 50,000 units weekly. 9. Lasix 80 mg as needed for edema. 10. Synthroid 75 mcg daily. 11. ZENPEP three tabs p.o. t.i.d. 12. Loperamide 4 mg daily as needed. 13. Omeprazole 40 mg daily. 14. Rivaroxaban 20 mg daily. DISCHARGE INSTRUCTIONS: Patient is to call Dr. Acosta and primary care physician for immediate followup within five days of hospital discharge regarding hypertensive urgency. Patient is to hold her Labetalol for heart rates less than 60, hold Losartan, labetalol and Norvasc for any systolic pressure less than 100. HOSPITAL COURSE: This is an 80-year-old female admitted on 02/27/2021 with complaints of dizziness and lightheadedness with dry heaves. The patient was found to have blood pressure of 215/105 in the emergency room and was given one does of IV hydralazine down to 150-170 and resume back in her home to Labetalol and Losartan. CT of the head was negative for any acute findings. She was found to have acute sinusitis for which she was started on Augmentin 875 b.i.d. Telemetry was unremarkable and remained in sinus rhythm. The patient was admitted on the telemetry unit with heart rate being controlled. Her blood pressure improved to 140/63 but had episodes of hypotension of 86/47. Due to a history of aortic stenosis and patient being volume dependent, her blood pressure medications at holding parameters for any systolic pressure less than 130 mm of mercury. Her blood pressure increased back to 140/63 at 4 a.m. At 8 a.m., it was 188/74 before her labetalol and Losartan were given. The patient had no new complains, denies any chest pain, pressure or tightness. PHYSICAL EXAMINATION ON DISCHARGE: Vital signs: Temperature 99, pulse 70, respiratory rate 19, blood pressure 140/63, 97% on room air. General: Cachectic, frail appearing. No distress. Dry mucous membranes. No JVD or thyromegaly. Lungs: Diminished but clear to auscultation. Heart: S1, S2, irregularly irregular. Abdomen: Soft, nontender, nondistended. Extremities: No cyanosis, clubbing or pitting edema. Laboratory data, imaging study, microbiology: Please see the chart. Time spent on discharge: 30 minutes. [facility]
--- NOTE | 2021-03-01 05:35 | ECGEPIP ---
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
[2021-03-05] MEDS ORDERED: VITAMIN D 50,000 UNITS CAPSULE (ERGOCALCIFEROL 1.25MG) PO SCH (09:00)
== END 2021-02-28 12:40 | disposition home or self-care (01) | DRG 305 ==
LOC: M ED 20:09 → M ED INP 21:49 → M PCU 02-28 03:32
PROVIDERS: ADMIT Internal Medicine; ATTEND General Practice
DX: I16.0 Hypertensive urgency (principal); I50.32 Chronic diastolic (congestive) heart failure; R00.1 Bradycardia, unspecified; I35.0 Nonrheumatic aortic (valve) stenosis; I25.10 Atherosclerotic heart disease of native coronary artery without angina pectoris; I25.2 Old myocardial infarction; I27.20 Pulmonary hypertension, unspecified; I48.0 Paroxysmal atrial fibrillation; D64.9 Anemia, unspecified; R11.2 Nausea with vomiting, unspecified; I11.0 Hypertensive heart disease with heart failure; R42 Dizziness and giddiness; E03.9 Hypothyroidism, unspecified; E78.5 Hyperlipidemia, unspecified; J45.909 Unspecified asthma, uncomplicated; M81.0 Age-related osteoporosis without current pathological fracture; J01.01 Acute recurrent maxillary sinusitis; K86.89 Other specified diseases of pancreas; K21.9 Gastro-esophageal reflux disease without esophagitis; J01.20 Acute ethmoidal sinusitis, unspecified; Z87.81 Personal history of (healed) traumatic fracture; Z90.49 Acquired absence of other specified parts of digestive tract; Z95.5 Presence of coronary angioplasty implant and graft; Z96.643 Presence of artificial hip joint, bilateral; Z20.822 Contact with and (suspected) exposure to COVID-19; Z80.3 Family history of malignant neoplasm of breast; Z85.41 Personal history of malignant neoplasm of cervix uteri; Z85.028 Personal history of other malignant neoplasm of stomach; Z92.21 Personal history of antineoplastic chemotherapy; Z92.3 Personal history of irradiation; Z79.01 Long term (current) use of anticoagulants; Z79.899 Other long term (current) drug therapy; Z88.5 Allergy status to narcotic agent; Z88.8 Allergy status to other drugs, medicaments and biological substances; Z91.048 Other nonmedicinal substance allergy status

== ENCOUNTER → 2021-02-27 | Outpatient (CLI) | payer MEDICARE, OTHER ==
[~2021-02-27] MED LIST changes: +AUGM875T28 PO; +BACITAB PO; +LOSA100T50 PO; +NORV5TAB PO; +SELF1KIT MC; -SYMB16INH
== END ==
LOC: M LABSMTC 09:11
PROVIDERS: ATTEND Anesthesiology
DX: Z01.812 Encounter for preprocedural laboratory examination (principal); Z20.822 Contact with and (suspected) exposure to COVID-19

== ENCOUNTER 2021-03-04 06:08 | Day surgery (SDC) | payer MEDICARE, OTHER ==
[~2021-03-04] VITALS: Ht 144.8 cm; Wt 44.5 kg
[~2021-03-04 06:08] MED LIST changes: +AUGM875T28 PO; +BACITAB PO; +LOSA100T50 PO; +LR 1,000 ML IV ONE; +NORV5TAB PO; +SELF1KIT MC
--- OUTSIDE RECORDS SUMMARY | 2021-03-04 06:13 | CCD | Continuity of Care Document ---
Author Author Ita CELESTIN D.O. Organization Unknown Address [address] [address] [facility] [address] [place] [address] Phone [phone] Care Team Providers Care [employer] Name Role Phone Ivette Celestin D.O. AUTM [phone] Seth Acosta M.D. AUTM [phone] Deangelo Baldwin D.O. AUTM [phone] Woo Cruz M.D. AUTM [phone] Cadence Huang M.D. AUTM [phone] Problems Active Problems Provider Date Disorder of [...] daily before meals as needed 60tabs D63.8 Amelie AlcantaraODoris 02/11/[address] 1 by mouth every day 90caps D63.8 Anish Duncan.ODoris 02/04 Levothyroxine Sodium 75mcg Tablets 1 tab by mouth every morning 90tabs E03.9 Crow Duncan 01/28/2021 Potassium Chloride Naz ER 10Meq Tablets ER 1 by mouth every day in the morning 90tabs Amelie DuncanODoris 06/05/2020 Vitamin D (Ergocalciferol) 1.25mg (05918 Ut) Capsules Take 1 Capsule By Mouth Once A Week 4caps Amelie DuncanODoris 01/13/2020 Symbicort 160-4.5mcg/Act Aerosol 1 puffs twice a day, rinse out mouth afterwards. 10.200gm Ivette Curry D.O. 02/22/2019 Tylenol Extra Strength 500mg Table ts 2 tablets by mouth every 8 hours as needed 30tabs Amelie LanierODoris 01/23/2019 Clobetasol Propionate 0.05% Cream Apply Thin Layer Topically To Affected Areas Two Times A Day as Needed For Flare Ups 30units Amelie DuncanO. Augmentin 875-125mg Tablets one tablet by mouth twice daily for 7 days Unknown Bacid Tablets 1 tab by mouth with meals three times with meals and at hs. Unknown Norvasc 5mg Tablets 1 by mouth bid as needed for systolic BP greater than 150 Unknown Losartan Potassium 100mg Tablets 1 by mouth every day 90tabs Amelie DuncanODoris Loperamide HCL 2mg Capsules one capsule daily as needed for diarrhea Unknown Furosemide 40mg Tablets 2 by mouth every day 180tabs Amelie DuncanODoris Labetalol HCL 100mg Tablets Take One Tablet By Mouth Twice A Day hold for heart rate less than 60 90tabs Amelie DuncanODoris Albuterol Sulfate (2 .5mg/3ML) 0.083% Nebulizer 1 vial by nebulizer every 4 hour as needed (30 days supply) Unknown Cyanocobalamin 1000mcg/ML Solution Inject 1ML Once A Month 3units Amelie DuncanODoris Zenpep [id number] Caps DR Part 1 tab by mouth three times a day with meals Unknown Ventolin HFA 108(90Base) mcg/Act A erosol 2 puffs every 4 hours shortness of breath or wheezing Unknown History Medications Sucralfate 1GM/10ML Suspension 10 milliliters by mouth four times daily before meals as needed 420ml D63.8 Ivette Celsetin D.O. 02/04/2021 - 02/11/2021 Immunizations CPT Code Status Date Vaccine Lot # [id number] Given 10/05/2015 Pneumococcal Con jugate Vaccine 13 Valent For Intramuscular Use Vital Signs Date Vital Result Comment 03/02/2021 11:40am BP Systolic 168 mmHg BP Diastolic 84 mmHg Height 57.6 inches 4'9.60" Weight 98.12 lb BMI (Body Mass Index) 20.8 kg/m2 Heart Rate 83 /min Respiratory Rate 16 /min Body Temperature 96.9 F O2 % BldC Oximetry 99 % [place] Body Weight 100 lb 02/22/2021 11:49am BP Systolic 134 mmHg BP Diastolic 74 mmHg Height 57.6 inches 4'9.60" Weight 101.12 lb BMI (Body Mass Index) 21.4 kg/m2 Heart Rate 86 /min Respiratory Rate 18 /min Body Temperature 96.9 F O2 % BldC Oximetry 95 % [place] Body Weight 100 lb Results Test Acquired Date Facility Test Result H/L Range Note Influenza A/B RSV Covid Amp 02/27/2021 [facility] Outpatie nt Testing (Registration) [address] [place], [place] [id number] [phone] Influenza A Amplification NEGATIVE Normal Negati ve 1 Influenza B Amplification NEGATIVE Normal Negative 2 RSV Amplification NEGATIVE Normal Negative 3 Sars Covid-19 Amplification NEGATIVE Normal Negative 4 Cardiac Marker Panel 02/27/2021 [facility] Outpatient Test ing (Registration) [address] [place] [address] [phone] CPK Creatine Phosphokinase 71 U/L Normal 26-19 2 CK-MB Value Mass 2.3 NG/ML Normal <3.6 MB/CK Relative Index 3.24 Normal < Or =4 5 Troponin I < 0.02 NG/ML Normal < 0.10 6 Liver Profile 02/27/2021 [facility] Outpatient Testi ng (Registration) [address] [place] [address] [phone] Ast/Sgot 19 U/L Normal 7-37 Alt/SGPT 22 U/L Normal 12-78 Alkaline Phosphatase 117 U/L Normal 45-117 Bilirubin,Total 0.4 mg/dL Normal 0.2-1.0 Bilirubin,Direct 0.1 mg/dL Normal 0.0-0.2 Total Protein 6.5 GM/DL Normal 6.4-8.2 Albumin 2.9 GM/DL Low 3.2-5.2 Albumin/Globulin Ratio 0.8 Low 1.2-2.2 Basic Metabolic Profile 02/27/2021 [facility] Outpatient T esting (Registration) [address] [place] [address] [phone] Glucose, Fasting 107 mg/dL High 70-100 Blood Urea Nitrogen 13 mg/dL Normal 7-18 Creatinine For GFR 0.71 mg/dL Normal 0.55-1.30 Glomerular Filtration Rate > 60.0 Normal >32 7 Sodium Level 141 mEq/L Normal 136-145 Potassium Serum 4.1 mEq/L Normal 3.5-5.1 Chloride Level 110 mEq/L High 98-107 Carbon Dioxide Level 26 mEq/L Normal 21-32 Anion Gap 5 mEq/L Low 8-16 Calcium Level 8.2 mg/dL Low 8.8-10.2 Laboratory test finding 02/27/2021 [facility] Outpatient T vijayaing (Registration) [address] [place] [id number] [phone] Magnesium Level 1.9 mg/dL Normal 1.8-2.4 Lipase 17 U/L Low 73-393 Thyroid Stimulating Hormone 4.390 uIU/ML High 0.358-3.740 Free T4 1.05 ng/dL Normal 0.76-1.46 CBC With Differential 02/27/2021 [facility] Outpatient Natalie farahg (Registration) [address] [place] [phone] White Blood Count 4.2 10 Normal 4.0-10.0 Red Blood Count 3.41 10 Low 4.00-5.40 Hemoglobin 9.3 g/dL Low 12.0-15.5 Hematocrit 30.2 % Low 36.0-47.0 Mean Corpuscular Volume 88.6 fl Normal 80.0-96.0 Mean Corpuscular Hemoglobin 27.3 pg Normal 27.0-33.0 Mean Corpuscular HGB Conc 30.8 g/dL Low 32.0-36.5 Red Cell Distribution Width 16.3 % High 11.5-14.5 Platelet Count, Automated 218 10 Normal 150-450 Neutrophils % 54.2 % Normal 36.0-66.0 Lymph % 25.1 % Normal 24.0-44.0 Bartholomew % 5.5 % Normal 2.0-8.0 Eos % 13.3 % High 0.0-3.0 Baso % 1.7 % High 0.0-1.0 Immature Granulocyte % 0.2 % Normal 0-3.0 Nucleated Red Blood Cell % 0.0 % Normal 0-0 Neutrophils # 2.3 10 Normal 1.5-8.5 Lymph # 1.0 10 Low 1.5-5.0 Bartholomew # 0.2 10 Normal 0.0-0.8 Eos # 0.6 10 High 0.0-0.5 Baso # 0.1 10 Normal 0.0-0.2 Prothrombin Time/Inr 02/27/2021 [facility] Outpatient Test ing (Registration) [address] [place] [address] [phone] Prothrombin Time 17.0 seconds High 12.7-14.5 Inr 1.34 Normal 8 Laboratory test finding 02/27/2021 [facility] Outpatient T esting (Registration) [address] [place] [address] [phone] Partial Thromboplastin Time 38.9 seconds High 25 .9-37.0 Coronavirus 2019 Nasopharygeal 02/27/2021 [facility] Outpa tient Testing (Registration) [address] [place] [address] [phone] Coronavirus 2019 Nasopharygeal ASSAY INFORMATIO <SEE N OTE> 9 Coronavirus 2019 Nasopharygeal 02/18/2021 [facility] Outpa tient Testing (Registration) [address] [place] [address] [phone] Coronavirus 2019 Nasopharygeal ASSAY INFORMATIO <SEE N OTE> 10 Coronavirus 2019 Nasopharygeal 01/22/2021 [facility] Outpa tient Testing (Registration) [address] [place] [address] [phone] Coronavirus 2019 Nasopharygeal ASSAY INFORMATIO <SEE N OTE> 11 Liver Profile 10/09/2020 [facility] Outpatient Testi ng (Registration) [address] [place] [address] [phone] Ast/Sgot 247 U/L High 7-37 Alt/SGPT 88 U/L High 12-78 Alkaline Phosphatase 201 U/L High 45-117 Bilirubin,Total 1.5 mg/dL High 0.2-1.0 Bilirubin,Direct 1.0 mg/dL High 0.0-0.2 Total Protein 7.8 GM/DL Normal 6.4-8.2 Albumin 3.3 GM/DL Normal 3.2-5.2 Albumin/Globulin Ratio 0.7 Low 1.2-2.2 Basic Metabolic Profile 10/09/2020 [facility] Outpatient T esting (Registration) [address] [place] [address] [phone] Glucose, Fasting 151 mg/dL High 70-100 Blood Urea Nitrogen 14 mg/dL Normal 7-18 Creatinine For GFR 0.66 mg/dL Normal 0.55-1.30 Glomerular Filtration Rate > 60.0 Normal >32 1 2 Sodium Level 138 mEq/L Normal 136-145 Potassium Serum 2.9 mEq/L Critical low 3.5-5.1 Chloride Level 101 mEq/L Normal 98-107 Carbon Dioxide Level 34 mEq/L High 21-32 Anion Gap 3 mEq/L Low 8-16 Calcium Level 8.6 mg/dL Low 8.8-10.2 Laboratory test finding 10/09/2020 [facility] Outpatient T esting (Registration) [address] [place] [address] [phone] Amylase 41 U/L Normal 25-115 Lipase 34 U/L Low 73-393 Cardiac Marker Panel 10/09/2020 [facility] Outpatient Test ing (Registration) [address] [place] [phone] CPK Creatine Phosphokinase 98 U/L Normal 26-19 2 CK-MB Value Mass 1.6 NG/ML Normal <3.6 MB/CK Relative Index 1.63 Normal < Or =4 13 Troponin I < 0.02 NG/ML Normal < 0.10 14 CBC With Differential 10/09/2020 [facility] Outpatient Natalie ting (Registration) [address] [place] [address] [phone] White Blood Count 6.1 10 Normal 4.0-10.0 [...] 36.0-66.0 Lymph % 13.3 % Low 24.0-44.0 Bartholomew % 5.4 % Normal 2.0-8.0 Eos % 2.0 % Normal 0.0-3.0 Baso % 0.7 % Normal 0.0-1.0 Immature Granulocyte % 0.3 % Normal 0-3.0 Nucleated Red Blood Cell % 0.0 % Normal 0-0 Neutrophils # 4.8 10 Normal 1.5-8.5 Lymph # 0.8 10 Low 1.5-5.0 Bartholomew # 0.3 10 Normal 0.0-0.8 Eos # 0.1 10 Normal 0.0-0.5 Baso # 0.0 10 Normal 0.0-0.2 Ua W/ Reflex To Culture 10/09/2020 [facility] Outpatient T michael (Registration) [address] [place], [place] [id number] [phone] Appearance, Urine RFX HAZY Normal Clear Color, Urine RFX YELLOW Normal Yellow PH,Urine RFX 7.0 units Normal 5.0-9.0 Specific [place] Ur Auto RFX 1.009 Normal 1.002-1.035 Protein, [...] Amorphous Sediment RFX SMALL High Negative 1 Negative results do not prec lude influenza or RSV virus infection and should not be used as the sole basis for treatment or other patient management decisions. 2 Negative results do not prec lude influenza or RSV virus infection and should not be used as the sole basis for treatment or other patient management decisions. 3 Negative results do not prec lude influenza or RSV virus infection and should not be used as the sole basis for treatment or other patient management decisions. 4 A false negative result may occur if a specimen is improperly collected, transported or handled. False [...] pathogens. DISCLAIMER: Testing was performed using the [employer] SARS-CoV-2 test. This test was developed and its performance characteristics determined by [employer]. This test has not been FDA cleared [...] the authorization is terminated or revoked sooner. 5 DIAGNOSIS CRITERIA MMB ng/ml Relative Index (RI) NON-AMI < or = 5 N/A FLOWERS ZONE > 5 < or = 4 AMI > 5 > 4 6 Troponin I Reference Interva l for [employer] [place] LOCI: 99th Percentile= 0.00-0.045 ng/ml Risk Stratification: <= 0.10 ng/ml Decreased Risk for Adverse Clinical Events. 0.10-1.50 ng/ml Increased Risk for Adv erse Clinical Events. Evaluation of additional criterion and/or repeat testing in 2-6 hours is suggested to rule out myocardial damage. >= 1.50 ng/ml Indicative of Myocardial Injury. 7 Units are mL/min/1.73 m2 Chronic Kidney Disease Staging per NKF: Stage I & II GFR >=60 Normal to Mildly Decreased Stage III GFR 30-59 Moderately Decreased Stage IV GFR 15-29 Severely Decreased Stage V GFR <15 Very Little GFR Left ESRD GFR <15 on [employer] REPRESENTATIVES 8 THERAPUTIC HUMAN INR VALUES INDICATIONS NORMAL RANGES PROPHYLAXIS/TREATMENT OF: VENOUS THROMBOSIS 2.0-3.0 PULMONARY EMBOLISM 2.0-3.0 PREVENTION OF SYSTEMIC EMBOLISM FROM: TISSUE HEART VALVES 2.0-3.0 ACUTE MYOCARDIAL INFARCTION 2.0-3.0 VALVULAR HEART DISEASE 2.0-3.0 ATRIAL FIBRILLATION 2.0-3.0 MECHANICAL VALVES(HIGH RISK) 2.5-3.5 RECURRENT MYOCARDIAL INFARCTION 2.5-3.5 9 ASSAY INFORMATION: Real Time RT-PCR NOTE: The COVID-19 assay has been cleared by the U.S. Food and Drug Administration under the Emergency Use Authorization (EUA). [facility] and [facility] are designated as high complexity laboratories by the Clinical Laboratory Improvement Amendments of 1988(CLIA) and are qualified to perform this test. Not Detected 10 ASSAY INFORMATION: Real Time RT-PCR or TMA. Both RT-PCR and TMA are nucleic acid amplification tests (NAAT) which are molecular testing modalities and recommended by the CDC for passenger travel. Testing and International Air Travel, cdc.gov/coronavirus/2019-ncov/travelers/ydaikjp-zgu-vvfpfs.html 06/18/2020 NOTE: The COVID-19 assay is under Emergency Use Authorization (EUA) by the U.S. Food and Drug Administration. [facility] and [facility] are designated as high complexity laboratories by the Clinical Laboratory Improvement Amendments of 1988 (CLIA) and are qualified to perform this test. Not Detected 11 ASSAY INFORMATION: Real Time RT-PCR NOTE: The COVID-19 assay has been cleared by the U.S. Food and Drug Administration under the Emergency Use Authorization (EUA). [facility] and [facility] are designated as high complexity laboratories by the Clinical Laboratory Improvement Amendments of 1988(CLIA) and are qualified to perform this test. Not Detected 12 Units are mL/min/1.73 m2 Chronic Kidney Disease Staging per NKF: Stage I & II GFR >=60 Normal to Mildly Decreased Stage III GFR 30-59 Moderately Decreased Stage IV GFR 15-29 Severely Decreased Stage V GFR <15 Very Little GFR Left ESRD GFR <15 on [employer] REPRESENTATIVES 13 DIAGNOSIS CRITERIA MMB ng/ml Relative Index (RI) NON-AMI < or = 5 N/A FLOWERS ZONE > 5 < or = 4 AMI > 5 > 4 14 Troponin I Reference Interva l for [employer] LOCI: 99th Percentile= 0.00-0.045 ng/ml Risk Stratification: <= 0.10 ng/ml Decreased Risk for Adverse Clinical Events. 0.10-1.50 ng/ml Increased Risk for Adv erse Clinical Events. Evaluation of additional criterion and/or repeat testing in 2-6 hours is suggested to rule out myocardial damage. >= 1.50 ng/ml Indicative of Myocardial Injury. Procedures Date Code Description Status 03/02/2021 13689 Kirkpatrick Cre W/I 7 Days Of DC, Comm W/I 2 Dys Completed 02/22/2021 83433 Office/Outpatient Established Lo w MDM 20-29 Min Completed 02/11/2021 68093 Office/Outpatient Established Lo w MDM 20-29 Min Completed 02/04/2021 36685 Office/Outpatient Established Mo d MDM 30-39 Min Completed 01/28/2021 63617 Office/Outpatient Established Mo d MDM 30-39 Min Completed 12/02/2020 97647 Office/Outpatient Established Lo w MDM 20-29 Min Completed 11/12/2020 72218 Office/Outpatient Established Mo d MDM 30-39 Min Completed 10/20/2020 24248 Kirkpatrick Cre W/I 7 Days Of DC, Comm W/I 2 Dys Completed 09/08/2020 32600 Office/Outpatient Established Mo d MDM 30-39 Min Completed Medical Devices Description No Information Available Encounters Type Date Location Provider Dx Diagnosis Office Visit 03/02/2021 11:30a [facility] Bhavik Celestin D.O. I10 Essential (primary) hyperten joel D63.8 Anemia in other chronic dise ases classified elsewhere E03.9 Hypothyroidism, unspecified J45.40 Moderate persistent asthma, uncomplicated D51.9 Vitamin B12 deficiency anemi a, unspecified I48.0 Paroxysmal atrial fibrillati on I35.0 Nonrheumatic aortic (valve) stenosis I34.0 Nonrheumatic mitral (valve) insufficiency J01.90 Acute sinusitis, unspecified R91.8 Other nonspecific abnormal f inding of lung field Office Visit 02/22/2021 11:40a [facility] Ivette Celestin D.O. D62 Acute posthemorrhagic anemia D63.8 Anemia in other chronic dise ases classified elsewhere E03.9 Hypothyroidism, unspecified J45.40 Moderate persistent asthma, uncomplicated D51.9 Vitamin B12 deficiency anemi a, unspecified I48.0 Paroxysmal atrial fibrillati on I35.0 Nonrheumatic aortic (valve) stenosis I34.0 Nonrheumatic mitral (valve) insufficiency Office Visit 02/11/2021 1:20p [facility] Anish Duncan.Daiana. D62 Acute posthemorrhagic anemia D63.8 Anemia in [...] Visit 12/02/2020 9:40a [facility] Amelie DuncanO. 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 03/02/2021 J45.40 Moderate persistent asthma, unco mplicated Anish Singletary.O. 03/02/2021 D51.9 Vitamin B12 deficiency anemia, u nspecified Anish Singletary.O. 03/02/2021 I48.0 Paroxysmal atrial fibrillation Anish Frederick.ODoris 03/02/2021 I35.0 Nonrheumatic aortic (valve) sten osis Ivette Trimbleeano-Audrey, D.O. 03/02/2021 I34.0 Nonrheumatic mitral (valve) insu fficiency Ivette Arias-Audrey, D.O. 03/02/2021 J01.90 Acute sinusitis, unspecified Anai prado Hugo-Audrey, D.O. 03/02/2021 R91.8 Other nonspecific abnormal findi ng of lung field Ivette Arias- Audrey, D.O. 02/22/2021 D62 Acute posthemorrhagic anemia Anai Trimbleeano-Audrey, D.O. 02/22/2021 D63.8 Anemia in other chronic diseases classified elsewhere Ivette Arias-Audrey, D.O. 02/22/2021 E03.9 Hypothyroidism, unspecified Ivette Arias-Audrey, D.O. 02/22/2021 J45.40 Moderate persistent asthma, unco mplicated Ivette Arias- Audrey, D.O. 02/22/2021 D51.9 Vitamin B12 deficiency anemia, u nspecified Ivette Arias- Audrey, D.O. 02/22/2021 I48.0 Paroxysmal atrial fibrillation Armen ill Hugo-Audrey, D.O. 02/22/2021 I35.0 Nonrheumatic aortic (valve) sten osis Ivette Arias-Audrey, D.O. 02/22/2021 I34.0 Nonrheumatic mitral (valve) insu fficiency Ivette Arias-Audrey, D.O. 02/11/2021 D62 Acute posthemorrhagic anemia Anai prado Daishaber, D.O. 02/11/2021 D63.8 Anemia in other chronic diseases classified elsewhere Ivette Arias-Audrey, D.O. 02/11/2021 E03.9 Hypothyroidism, unspecified Ivette Ferminno-Audrey, D.O. 02/11/2021 J45.40 Moderate persistent asthma, unco mplicated Ivette Arias- Audrey, D.O. 02/11/2021 D51.9 Vitamin B12 deficiency anemia, u nspecified Ivette Emma Ventura, D.O. 02/04/2021 D62 Acute posthemorrhagic anemia Anai prado Sabi, D.O. 02/04/2021 D63.8 Anemia in other [...] J45.40 Moderate persistent asthma, unco mplicated Mauri Anish Herrera, AURA 11/12/2020 I35.0 Nonrheumatic aortic (valve) sten osis Mauri Anish Herrera, AURA 11/12/2020 D63.8 Anemia in other [...] endence Ivette Celestin D.O. 09/08/2020 Z79.899 Other prison (current) drug t herapy Ivette Celestin D.O. 09/08/2020 I34.0 Nonrheumatic mitral (valve) insu fficiency Ivette Celestin D.O. 09/08/2020 D63.8 Anemia in other chronic diseases classified elsewhere Ivette Celestin D.O. 09/08/2020 E87.6 Hypokalemia Ivette ortiz D.O. 09/08/2020 Z96.642 Presence of left artificial hip joint Ivette Celestin D.O. 09/08/2020 I25.10 Atherosclerotic hear t disease of [place] coronary artery without angina pectoris Ivette Celestin D.O. Plan of Treatment Future Appointment(s):* 03/16/2021 9:30 am - Ivette Celestin D.O. at [facility] Functional Status Description No Information Available Mental Status Description No Information Available Referrals Description No Information Available
--- OUTSIDE RECORDS SUMMARY | 2021-03-04 06:14 | CCD | Continuity of Care Document ---
Author Organization Unknown Address Unknown Phone Unavailable Care Team Providers Care Personal Driver Name Role Phone Ivette Celestin D.O. AUTM [phone] Seth Acosta M.D. AUTM [phone] Deangelo Baldwin D.O. AUTM [phone] Woo Cruz M.D. AUTM [phone] Cadence Huang M.D. AUTM [phone] Problems Active Problems Provider Date Disorder of [...] before meals as needed 60tabs D63.8 Amelie AlcantaraO. 02/11/[address] 1 by mouth every day 90caps D63.8 Amelie DuncanO. 02/04 Levothyroxine Sodium 75mcg Tablets 1 tab by mouth every morning 90tabs E03.9 Amelie DuncanO . 01/28/2021 Potassium Chloride Naz ER 10Meq Tablets ER 1 by mouth every day in the morning 90tabs Amelie DuncanODoris 06/05/2020 Xarelto 20mg Tablets take one tablet by mouth every day 90tabs Amelie DuncanO. 05/11 Vitamin D (Ergocalciferol) 1.25mg (79237 Ut) Capsules Take 1 Capsule By Mouth Once A Week 4caps Amelie DuncanODoris 01/13/2020 Symbicort 160-4.5mcg/Act Aerosol 1 puffs twice a day, rinse out mouth afterwards. 10.200gm Amelie LanierODoris 02/22/2019 Tylenol Extra Strength 500mg Table ts 2 tablets by mouth every 8 hours as needed 30tabs Amelie LanierODoris 01/23/[id number] Bernard 1 tab by mouth [...] before meals as needed 420ml D63.8 Ivette Celestin D.O. 02/04/2021 - 02/11/2021 Immunizations CPT Code Status Date Vaccine Lot # [id number] Given 10/05/2015 Pneumococcal Con jugate Vaccine 13 Valent For Intramuscular Use Vital Signs Date Vital Result Comment 02/22/2021 11:49am BP Systolic 134 mmHg BP Diastolic 74 mmHg Height 57.6 inches 4'9.60" Weight 101.12 lb BMI (Body Mass Index) 21.4 kg/m2 Heart Rate 86 /min Respiratory Rate 18 /min Body Temperature 96.9 F O2 % BldC Oximetry 95 % [place] Body Weight 100 lb 02/11/2021 1:25pm BP Systolic 134 mmHg BP Diastolic 82 mmHg Height 57.6 inches 4'9.60" Weight 100.38 lb BMI (Body Mass Index) 21.3 kg/m2 Heart Rate 67 /min Respiratory Rate 18 /min Body Temperature 97.6 F O2 % BldC Oximetry 99 % [place] Body Weight 100 lb Results Test Acquired Date Facility Test Result H/L Range Note Cardiac Marker Panel 02/27/2021 [facility] Outpatient Test ing (Registration) [address] [place] [address] [phone] CPK Creatine Phosphokinase 71 U/L Normal 26-19 2 CK-MB Value Mass 2.3 NG/ML Normal <3.6 MB/CK Relative Index 3.24 Normal < Or =4 1 Troponin I < 0.02 NG/ML Normal < 0.10 2 Liver Profile 02/27/2021 [facility] Outpatient Testi ng (Registration) [address] [place] [address] [phone] Ast/Sgot 19 U/L Normal 7-37 Alt/SGPT 22 U/L Normal 12-78 Alkaline Phosphatase 117 U/L Normal 45-117 Bilirubin,Total 0.4 mg/dL Normal 0.2-1.0 Bilirubin,Direct 0.1 mg/dL Normal 0.0-0.2 Total Protein 6.5 GM/DL Normal 6.4-8.2 Albumin 2.9 GM/DL Low 3.2-5.2 Albumin/Globulin Ratio 0.8 Low 1.2-2.2 Basic Metabolic Profile 02/27/2021 [facility] Outpatient T esting (Registration) [address] [place] [address] [phone] Glucose, Fasting 107 mg/dL High 70-100 Blood Urea Nitrogen 13 mg/dL Normal 7-18 Creatinine For GFR 0.71 mg/dL Normal 0.55-1.30 Glomerular Filtration Rate > 60.0 Normal >32 3 Sodium Level 141 mEq/L Normal 136-145 Potassium Serum 4.1 mEq/L Normal 3.5-5.1 Chloride Level 110 mEq/L High 98-107 Carbon Dioxide Level 26 mEq/L Normal 21-32 Anion Gap 5 mEq/L Low 8-16 Calcium Level 8.2 mg/dL Low 8.8-10.2 Laboratory test finding 02/27/2021 [facility] Outpatient T michael (Registration) [address] [place] [address] [phone] Magnesium Level 1.9 mg/dL Normal 1.8-2.4 Lipase 17 U/L Low 73-393 Thyroid Stimulating Hormone 4.390 uIU/ML High 0.358-3.740 Free T4 1.05 ng/dL Normal 0.76-1.46 CBC With Differential 02/27/2021 [facility] Outpatient Natalie raina (Registration) [address] [place] [address] [phone] White Blood Count 4.2 10 Normal 4.0-10.0 [...] 36.0-66.0 Lymph % 25.1 % Normal 24.0-44.0 [place] % 5.5 % Normal 2.0-8.0 Eos % 13.3 % High 0.0-3.0 Baso % 1.7 % High 0.0-1.0 Immature Granulocyte % 0.2 % Normal 0-3.0 Nucleated Red Blood Cell % 0.0 % Normal 0-0 Neutrophils # 2.3 10 Normal 1.5-8.5 Lymph # 1.0 10 Low 1.5-5.0 [place] # 0.2 10 Normal 0.0-0.8 Eos # 0.6 10 High 0.0-0.5 Baso # 0.1 10 Normal 0.0-0.2 Prothrombin Time/Inr 02/27/2021 [facility] Outpatient Test ing (Registration) [address] [place] [address] [phone] Prothrombin Time 17.0 seconds High 12.7-14.5 Inr 1.34 Normal 4 Laboratory test finding 02/27/2021 [facility] Outpatient T esting (Registration) [address] [place] [address] [phone] Partial Thromboplastin Time 38.9 seconds High 25 .9-37.0 Coronavirus 2019 Nasopharygeal 02/27/2021 [facility] Outpa tient Testing (Registration) [address] [place] [address] [phone] Coronavirus 2019 Nasopharygeal ASSAY INFORMATIO <SEE N OTE> 5 Influenza A/B RSV Covid Amp 02/27/2021 [facility] Outpatie nt Testing (Registration) [address] [place] [address] [phone] Influenza A Amplification NEGATIVE Normal Negati ve 6 Influenza B Amplification NEGATIVE Normal Negative 7 RSV Amplification NEGATIVE Normal Negative 8 Sars Covid-19 Amplification NEGATIVE Normal Negative 9 Coronavirus 2019 Nasopharygeal 02/18/2021 [facility] Outpa tient Testing (Registration) [address] [place] [address] [phone] Coronavirus 2019 Nasopharygeal ASSAY INFORMATIO <SEE N OTE> 10 Coronavirus 2019 Nasopharygeal 01/22/2021 [facility] Outpa tient Testing (Registration) [address] [place] [address] [phone] Coronavirus 2019 Nasopharygeal ASSAY INFORMATIO <SEE N OTE> 11 Liver Profile 10/09/2020 [facility] Outpatient Testi ng (Registration) [address] [place] [address] [phone] Ast/Sgot 247 U/L High 7-37 Alt/SGPT 88 U/L High 12-78 Alkaline Phosphatase 201 U/L High 45-117 Bilirubin,Total 1.5 mg/dL High 0.2-1.0 Bilirubin,Direct 1.0 mg/dL High 0.0-0.2 Total Protein 7.8 GM/DL Normal 6.4-8.2 Albumin 3.3 GM/DL Normal 3.2-5.2 Albumin/Globulin Ratio 0.7 Low 1.2-2.2 Basic Metabolic Profile 10/09/2020 [facility] Outpatient T esting (Registration) [address] [place] [address] [phone] Glucose, Fasting 151 mg/dL High 70-100 Blood [...] Low 8.8-10.2 Laboratory test finding 10/09/2020 [facility] Outpatient T esting (Registration) [address] [place] [address] [phone] Amylase 41 U/L Normal 25-115 Lipase 34 U/L Low 73-393 Cardiac Marker Panel 10/09/2020 [facility] Outpatient Test ing (Registration) [address] [place] [address] [phone] CPK Creatine Phosphokinase 98 U/L Normal 26-19 2 CK-MB Value Mass 1.6 NG/ML Normal <3.6 MB/CK Relative Index 1.63 Normal < Or =4 13 Troponin I < 0.02 NG/ML Normal < 0.10 14 CBC With Differential 10/09/2020 [facility] Outpatient Natalie ting (Registration) [address] [place] [address] [phone] White Blood Count 6.1 10 Normal 4.0-10.0 [...] 36.0-66.0 Lymph % 13.3 % Low 24.0-44.0 [place] % 5.4 % Normal 2.0-8.0 Eos % 2.0 % Normal 0.0-3.0 Baso % 0.7 % Normal 0.0-1.0 Immature Granulocyte % 0.3 % Normal 0-3.0 Nucleated Red Blood Cell % 0.0 % Normal 0-0 Neutrophils # 4.8 10 Normal 1.5-8.5 Lymph # 0.8 10 Low 1.5-5.0 [place] # 0.3 10 Normal 0.0-0.8 Eos # 0.1 10 Normal 0.0-0.5 Baso # 0.0 10 Normal 0.0-0.2 Ua W/ Reflex To Culture 10/09/2020 [facility] Outpatient T vijayaing (Registration) [address] [place] [address] [phone] Appearance, Urine RFX HAZY Normal Clear Color, Urine RFX YELLOW Normal Yellow PH,Urine RFX 7.0 units Normal 5.0-9.0 Specific Harris Ur Auto RFX 1.009 Normal 1.002-1.035 Protein, [...] Amorphous Sediment RFX SMALL High Negative 1 DIAGNOSIS CRITERIA MMB ng/ml Relative Index (RI) NON-AMI < or = 5 N/A FLOWERS ZONE > 5 < or = 4 AMI > 5 > 4 2 Troponin I Reference Interva l for [employer] LOCI: 99th Percentile= 0.00-0.045 ng/ml Risk Stratification: <= 0.10 ng/ml Decreased Risk for Adverse Clinical Events. 0.10-1.50 ng/ml Increased Risk for Adv erse Clinical Events. Evaluation of additional criterion and/or repeat testing in 2-6 hours is suggested to rule out myocardial damage. >= 1.50 ng/ml Indicative of Myocardial Injury. 3 Units are mL/min/1.73 m2 Chronic Kidney Disease Staging per NKF: Stage I & II GFR >=60 Normal to Mildly Decreased Stage III GFR 30-59 Moderately Decreased Stage IV GFR 15-29 Severely Decreased Stage V GFR <15 Very Little GFR Left ESRD GFR <15 on TIGHT COOPER 4 THERAPUTIC HUMAN INR VALUES INDICATIONS NORMAL RANGES PROPHYLAXIS/TREATMENT OF: VENOUS THROMBOSIS 2.0-3.0 PULMONARY EMBOLISM 2.0-3.0 PREVENTION OF SYSTEMIC EMBOLISM FROM: TISSUE HEART VALVES 2.0-3.0 ACUTE MYOCARDIAL INFARCTION 2.0-3.0 VALVULAR HEART DISEASE 2.0-3.0 ATRIAL FIBRILLATION 2.0-3.0 MECHANICAL VALVES(HIGH RISK) 2.5-3.5 RECURRENT MYOCARDIAL INFARCTION 2.5-3.5 5 ASSAY INFORMATION: Real Time RT-PCR NOTE: The COVID-19 assay has been cleared by the U.S. Food and Drug Administration under the Emergency Use Authorization (EUA). [employer] and [employer] are designated as high complexity laboratories by the Clinical Laboratory Improvement Amendments of 1988(CLIA) and are qualified to perform this test. Not Detected 6 Negative results do not prec lude influenza or RSV virus infection and should not be used as the sole basis for treatment or other patient management decisions. 7 Negative results do not prec lude influenza or RSV virus infection and should not be used as the sole basis for treatment or other patient management decisions. 8 Negative results do not prec lude influenza or RSV virus infection and should not be used as the sole basis for treatment or other patient management decisions. 9 A false negative result may occur if [...] pathogens. DISCLAIMER: Testing was performed using the [employer] SARS-CoV-2 test. This test was developed and its performance characteristics determined by [employer]. This test has not been FDA cleared [...] the authorization is terminated or revoked sooner. 10 ASSAY INFORMATION: Real Time RT-PCR or TMA. Both RT-PCR and TMA are nucleic acid amplification tests (NAAT) which are molecular testing modalities and recommended by the CDC for passenger travel. Testing and International Air Travel, cdc.gov/coronavirus/2019-ncov/travelers/wfpxdmj-idc-guphtj.html 06/18/2020 NOTE: The COVID-19 assay is under Emergency Use Authorization (EUA) by the U.S. Food and Drug Administration. [employer] and [employer] are designated as high complexity laboratories by the Clinical Laboratory Improvement Amendments of 1988 (CLIA) and are qualified to perform this test. Not Detected 11 ASSAY INFORMATION: Real Time RT-PCR NOTE: The COVID-19 assay has been cleared by the U.S. Food and Drug Administration under the Emergency Use Authorization (EUA). [employer] and [employer] are designated as high complexity laboratories by [...] Little GFR Left ESRD GFR <15 on TIGHT COOPER 13 DIAGNOSIS CRITERIA MMB ng/ml Relative Index (RI) NON-AMI < or = 5 N/A FLOWERS ZONE > 5 < or = 4 AMI > 5 > 4 14 Troponin I Reference Interva l for [employer] LOCI: 99th Percentile= 0.00-0.045 ng/ml Risk Stratification: <= 0.10 ng/ml Decreased Risk for Adverse Clinical Events. 0.10-1.50 ng/ml Increased Risk for Adv erse Clinical Events. Evaluation of additional criterion and/or repeat testing in 2-6 hours is suggested to rule out myocardial damage. >= 1.50 ng/ml Indicative of Myocardial Injury. Procedures Date Code Description Status 02/22/2021 69977 Office/Outpatient Established Lo w MDM 20-29 Min Completed 02/11/2021 48142 Office/Outpatient Established Lo w MDM 20-29 Min Completed 02/04/2021 82352 Office/Outpatient Established Mo d MDM 30-39 Min Completed 01/28/2021 23495 Office/Outpatient Established Mo d MDM 30-39 Min Completed 12/02/2020 13908 Office/Outpatient Established Lo w MDM 20-29 Min Completed 11/12/2020 17183 Office/Outpatient Established Mo d MDM 30-39 Min Completed 10/20/2020 91308 [facility] W/I 7 Days Of DC, Comm W/I 2 Dys Completed 09/08/2020 31314 Office/Outpatient Established Mo d MDM 30-39 Min Completed Medical Devices Description No Information Available Encounters Type Date Location Provider Dx Diagnosis Office Visit 02/22/2021 11:40a [facility] Bhavik Celestin D.O. D62 Acute posthemorrhagic anemia D63.8 Anemia in other chronic dise ases classified elsewhere E03.9 Hypothyroidism, unspecified J45.40 Moderate persistent asthma, uncomplicated D51.9 Vitamin B12 deficiency anemi a, unspecified I48.0 Paroxysmal atrial fibrillati on I35.0 Nonrheumatic aortic (valve) stenosis I34.0 Nonrheumatic mitral (valve) insufficiency Office Visit 02/11/2021 1:20p [facility] Amelie ChapaODoris D62 Acute posthemorrhagic anemia D63.8 Anemia in other chronic dise ases classified elsewhere E03.9 Hypothyroidism, unspecified J45.40 Moderate persistent asthma, uncomplicated D51.9 Vitamin B12 deficiency anemi a, unspecified Office Visit 02/04/2021 1:10p [facility] Bhavik Celestin D.O. D62 Acute posthemorrhagic anemia D63.8 Anemia in other chronic dise ases classified elsewhere E03.9 Hypothyroidism, unspecified J45.40 Moderate persistent asthma, uncomplicated D51.9 Vitamin B12 deficiency anemi a, unspecified I48.0 Paroxysmal atrial fibrillati on I35.0 Nonrheumatic aortic (valve) stenosis I34.0 Nonrheumatic mitral (valve) insufficiency Office Visit 01/28/2021 2:40p [facility] Ivette Celestin D.O. D63.8 Anemia in other chronic dise ases classified elsewhere E03.9 Hypothyroidism, unspecified J45.40 Moderate persistent asthma, uncomplicated D51.9 Vitamin B12 deficiency anemi a, unspecified Office Visit 12/02/2020 9:40a [facility] Amelie DuncanO. S51.011A Laceration without foreign b tariq of right elbow, init encntr M81.0 Age-related osteoporosis w/o current pathological fracture Office Visit 11/12/2020 10:00a [facility] AURA Mccallum I10 Essential (primary) hyperten joel E03.9 Hypothyroidism, unspecified I48.0 Paroxysmal atrial fibrillati on J45.40 Moderate persistent asthma, uncomplicated I35.0 Nonrheumatic aortic (valve) stenosis D63.8 Anemia in other chronic dise ases classified elsewhere R60.9 Edema, unspecified Office Visit 10/20/2020 1:40p [facility] AURA Mccallum K80.80 Other cholelithiasis without obstruction Office Visit 09/08/2020 10:00a [facility] Ivette Celestin D.O. I10 Essential (primary) hyperten [...] Description Provider 02/22/2021 D62 Acute posthemorrhagic anemia Anai Celestin, D.O. 02/22/2021 D63.8 Anemia in other chronic diseases classified elsewhere Ivette Celestin, D.O. 02/22/2021 E03.9 Hypothyroidism, unspecified Ivette Celestin, D.O. 02/22/2021 J45.40 Moderate persistent asthma, unco mplicated Ivette Ventura, D.O. 02/22/2021 D51.9 Vitamin B12 deficiency anemia, u nspecified Ivette Ventura, D.O. 02/22/2021 I48.0 Paroxysmal atrial fibrillation Armen Celestin D.O. 02/22/2021 I35.0 Nonrheumatic aortic (valve) sten osis Ivette Celestin, D.O. 02/22/2021 I34.0 Nonrheumatic mitral (valve) insu fficiency Ivette Celestin, D.O. 02/11/2021 D62 Acute posthemorrhagic anemia Anai Celestin, D.O. 02/11/2021 D63.8 Anemia in other chronic diseases classified elsewhere Ivette Celestin, D.O. 02/11/2021 E03.9 Hypothyroidism, unspecified Ivette Celestin, D.O. 02/11/2021 J45.40 Moderate persistent asthma, unco mplicated Ivette Ventura, D.O. 02/11/2021 D51.9 Vitamin B12 deficiency anemia, u nspecified Ivette Ventura, D.O. 02/04/2021 D62 Acute posthemorrhagic anemia Anai Celestin D.O. 02/04/2021 D63.8 Anemia in other chronic diseases classified elsewhere Ivette Celestin D.O. 02/04/2021 E03.9 Hypothyroidism, unspecified Ivette Celestin, D.O. 02/04/2021 J45.40 Moderate persistent asthma, unco mplicated Ivette Ventura, D.O. 02/04/2021 D51.9 Vitamin B12 deficiency anemia, u nspecified Ivette Ventura D.O. 02/04/2021 I48.0 Paroxysmal atrial fibrillation Armen ill Sabi D.O. 02/04/2021 I35.0 Nonrheumatic aortic (valve) sten osis Ivette Celestin D.O. 02/04/2021 I34.0 Nonrheumatic mitral (valve) insu fficiency Ivette Celestin D.O. 01/28/2021 D63.8 Anemia in other chronic diseases classified elsewhere Ivette Celestin D.O. 01/28/2021 E03.9 Hypothyroidism, unspecified Ivette Celestin, D.O. 01/28/2021 J45.40 Moderate persistent asthma, unco mplicated Ivette Ventura D.O. 01/28/2021 D51.9 Vitamin B12 deficiency anemia, u nspecified Ivette Ventura, D.O. 12/02/2020 S51.011A Laceration without f oreign body of right elbow, initial encounter Anish Duncan.O. 12/02/2020 M81.0 Age-related osteoporosis without current pathological [...] Celestin D.O. 09/08/2020 E03.9 Hypothyroidism, unspecified Ivette Celestin D.O. 09/08/2020 S81.812D Laceration without f oreign body, left lower leg, subsequent encounter Ivette Celestin D.O. 09/08/2020 I48.0 Paroxysmal atrial fibrillation Armen ill Anish Celestin.O. 09/08/2020 J45.40 Moderate persistent asthma, unco mplicated Ivette Ventura D.O. 09/08/2020 I35.0 Nonrheumatic aortic (valve) sten osis Ivette Celestin D.O. 09/08/2020 Z88.8 Allergy status to ot her drugs, medicaments and biological substances Ivette Celestin D.O. 09/08/2020 Z87.891 Personal history of nicotine dep endence Ivette Celestin D.O. 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 09/08/2020 I34.0 Nonrheumatic mitral (valve) insu fficiency Ivette Celestin D.O. 09/08/2020 D63.8 Anemia in other chronic diseases classified elsewhere Ivette Celestin D.O. 09/08/2020 E87.6 Hypokalemia Ivette ortiz D.O. 09/08/2020 Z96.642 Presence of left artificial hip joint Ivette Celestin D.O. 09/08/2020 I25.10 Atherosclerotic hear t disease of [place] coronary artery without angina pectoris Anish Duncan.O. Plan of Treatment Future Appointment(s):* 03/02/2021 11:30 am - Ivette Celestin D.O. at [facility] Functional Status Description No Information Available Mental Status Description No Information Available Referrals Description No Information Available
--- OUTSIDE RECORDS SUMMARY | 2021-03-04 06:14 | CCD | Continuity of Care Document ---
Author Organization Unknown Address Unknown Phone Unavailable Care Team Providers Care Desktop Publisher Name Role Phone Ivette Celestin D.O. AUTM Seth Acosta M.D. AUTM [phone] Deangelo Baldwin D.O. AUTM [phone] Woo Cruz M.D. AUTM [phone] Cadence Huang M.D. AUTM [phone] Problems Active Problems Provider Date Disorder of [...] Amelie DuncanO. 05/11 Vitamin D (Ergocalciferol) 1.25mg (53552 Ut) Capsules Take 1 Capsule By Mouth Once A Week 4caps Amelie DuncanODoris 01/13/2020 Symbicort 160-4.5mcg/Act Aerosol 1 puffs twice a day, rinse out mouth afterwards. 10.200gm Amelie LanierODoris 02/22/2019 Tylenol Extra Strength 500mg Table ts 2 tablets by mouth every 8 hours as needed 30tabs Amelie LanierODoris 01/23/[id number] Bernard 1 tab by mouth [...] CPT Code Status Date Vaccine Lot # 70148 Given 10/05/2015 Pneumococcal Con jugate Vaccine 13 Valent For Intramuscular Use Vital Signs Date Vital Result Comment 02/22/2021 11:49am BP Systolic 134 mmHg BP Diastolic 74 mmHg Height 57.6 inches 4'9.60" Weight 101.12 lb BMI (Body Mass Index) 21.4 kg/m2 Heart Rate 86 /min Respiratory Rate 18 /min Body Temperature 96.9 F O2 % BldC Oximetry 95 % [place] Body Weight 100 lb 02/11/2021 1:25pm BP Systolic 134 mmHg BP Diastolic 82 mmHg Height 57.6 inches 4'9.60" Weight 100.38 lb BMI (Body Mass Index) 21.3 kg/m2 Heart Rate 67 /min Respiratory Rate 18 /min Body Temperature 97.6 F O2 % BldC Oximetry 99 % [place] Body Weight 100 lb Results Test Acquired Date Facility Test Result H/L Range Note Cardiac Marker Panel 02/27/2021 [facility] Outpatient Test ing (Registration) [address] [place] [address] [phone] CPK Creatine Phosphokinase 71 U/L Normal 26-19 2 CK-MB Value Mass 2.3 NG/ML Normal <3.6 MB/CK Relative Index 3.24 Normal < Or =4 1 Troponin I < 0.02 NG/ML Normal < 0.10 2 Liver Profile 02/27/2021 [facility] Outpatient Testi ng (Registration) [address] [place] [address] [phone] Ast/Sgot 19 U/L Normal 7-37 Alt/SGPT 22 U/L Normal 12-78 Alkaline Phosphatase 117 U/L Normal 45-117 Bilirubin,Total 0.4 mg/dL Normal 0.2-1.0 Bilirubin,Direct 0.1 mg/dL Normal 0.0-0.2 Total Protein 6.5 GM/DL Normal 6.4-8.2 Albumin 2.9 GM/DL Low 3.2-5.2 Albumin/Globulin Ratio 0.8 Low 1.2-2.2 Basic Metabolic Profile 02/27/2021 [facility] Outpatient T esting (Registration) [address] [place] [address] [phone] Glucose, Fasting 107 mg/dL High 70-100 Blood [...] mg/dL Low 8.8-10.2 Laboratory test finding 02/27/2021 [facility] Outpatient T michael (Registration) [address] [place] [address] [phone] Magnesium Level 1.9 mg/dL Normal 1.8-2.4 Lipase 17 U/L Low 73-393 Thyroid Stimulating Hormone 4.390 uIU/ML High 0.358-3.740 Free T4 1.05 ng/dL Normal 0.76-1.46 CBC With Differential 02/27/2021 [facility] Outpatient Natalie raina (Registration) [address] [place] [address] [phone] White Blood Count 4.2 10 Normal 4.0-10.0 [...] 36.0-66.0 Lymph % 25.1 % Normal 24.0-44.0 [place] % 5.5 % Normal 2.0-8.0 Eos % 13.3 % High 0.0-3.0 Baso % 1.7 % High 0.0-1.0 Immature Granulocyte % 0.2 % Normal 0-3.0 Nucleated Red Blood Cell % 0.0 % Normal 0-0 Neutrophils # 2.3 10 Normal 1.5-8.5 Lymph # 1.0 10 Low 1.5-5.0 [place] # 0.2 10 Normal 0.0-0.8 Eos # 0.6 10 High 0.0-0.5 Baso # 0.1 10 Normal 0.0-0.2 Prothrombin Time/Inr 02/27/2021 [facility] Outpatient Test ing (Registration) [address] [place] [address] [phone] Prothrombin Time 17.0 seconds High 12.7-14.5 Inr 1.34 Normal 4 Laboratory test finding 02/27/2021 [facility] Outpatient T esting (Registration) [address] [place] [address] [phone] Partial Thromboplastin Time 38.9 seconds High 25 .9-37.0 Coronavirus 2019 Nasopharygeal 02/27/2021 [facility] Outpa tient Testing (Registration) [address] [place] [address] [phone] Coronavirus 2019 Nasopharygeal ASSAY INFORMATIO <SEE N OTE> 5 Influenza A/B RSV Covid Amp 02/27/2021 [facility] Outpatie nt Testing (Registration) [address] [place] [address] [phone] Influenza A Amplification NEGATIVE Normal Negati ve 6 Influenza B Amplification NEGATIVE Normal Negative 7 RSV Amplification NEGATIVE Normal Negative 8 Sars Covid-19 Amplification NEGATIVE Normal Negative 9 Coronavirus 2019 Nasopharygeal 02/18/2021 [facility] Outpa tient Testing (Registration) [address] [place] [address] [phone] Coronavirus 2019 Nasopharygeal ASSAY INFORMATIO <SEE N OTE> 10 Coronavirus 2019 Nasopharygeal 01/22/2021 [facility] Outpa tient Testing (Registration) [address] [place] [address] [phone] Coronavirus 2019 Nasopharygeal ASSAY INFORMATIO <SEE N OTE> 11 Liver Profile 10/09/2020 [facility] Outpatient Testi ng (Registration) [address] [place] [address] [phone] Ast/Sgot 247 U/L High 7-37 Alt/SGPT 88 U/L High 12-78 Alkaline Phosphatase 201 U/L High 45-117 Bilirubin,Total 1.5 mg/dL High 0.2-1.0 Bilirubin,Direct 1.0 mg/dL High 0.0-0.2 Total Protein 7.8 GM/DL Normal 6.4-8.2 Albumin 3.3 GM/DL Normal 3.2-5.2 Albumin/Globulin Ratio 0.7 Low 1.2-2.2 Basic Metabolic Profile 10/09/2020 [facility] Outpatient T esting (Registration) [address] [place] [address] [phone] Glucose, Fasting 151 mg/dL High 70-100 Blood [...] mg/dL Low 8.8-10.2 Laboratory test finding 10/09/2020 [facility] Outpatient T esting (Registration) [address] [place] [address] [phone] Amylase 41 U/L Normal 25-115 Lipase 34 U/L Low 73-393 Cardiac Marker Panel 10/09/2020 [facility] Outpatient Test ing (Registration) [address] [place] [address] [phone] CPK Creatine Phosphokinase 98 U/L Normal 26-19 2 CK-MB Value Mass 1.6 NG/ML Normal <3.6 MB/CK Relative Index 1.63 Normal < Or =4 13 Troponin I < 0.02 NG/ML Normal < 0.10 14 CBC With Differential 10/09/2020 [facility] Outpatient Natalie ting (Registration) [address] [place] [address] [phone] White Blood Count 6.1 10 Normal 4.0-10.0 [...] 36.0-66.0 Lymph % 13.3 % Low 24.0-44.0 [place] % 5.4 % Normal 2.0-8.0 Eos % 2.0 % Normal 0.0-3.0 Baso % 0.7 % Normal 0.0-1.0 Immature Granulocyte % 0.3 % Normal 0-3.0 Nucleated Red Blood Cell % 0.0 % Normal 0-0 Neutrophils # 4.8 10 Normal 1.5-8.5 Lymph # 0.8 10 Low 1.5-5.0 [place] # 0.3 10 Normal 0.0-0.8 Eos # 0.1 10 Normal 0.0-0.5 Baso # 0.0 10 Normal 0.0-0.2 Ua W/ Reflex To Culture 10/09/2020 [facility] Outpatient T vijayaing (Registration) [address] [place] [address] [phone] Appearance, Urine RFX HAZY Normal Clear Color, Urine RFX YELLOW Normal Yellow PH,Urine RFX 7.0 units Normal 5.0-9.0 Specific [place] Ur Auto RFX 1.009 Normal 1.002-1.035 Protein, [...] Troponin I Reference Interva l for [employer] byUs LOCI: 99th Percentile= 0.00-0.045 ng/ml Risk Stratification: [...] Little GFR Left ESRD 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 [email or web address] and [employer] are designated as high complexity laboratories by [...] pathogens. DISCLAIMER: Testing was performed using the [employer] SARS-CoV-2 test. This test was developed and its performance characteristics determined by [employer]. This test has not been FDA cleared [...] passenger travel. Testing and International Air Travel, cdc.gov/coronavirus/2019-ncov/travelers/sepmfup-bei-bqefcp.html 06/18/2020 NOTE: The COVID-19 assay is under Emergency Use Authorization (EUA) by the U.S. Food and Drug Administration. [email or web address] and [employer] are designated as high complexity laboratories by the Clinical Laboratory Improvement Amendments of 1988 (CLIA) and are qualified to perform this test. Not Detected 11 ASSAY INFORMATION: Real Time RT-PCR NOTE: The COVID-19 assay has been cleared by the U.S. Food and Drug Administration under the Emergency Use Authorization (EUA). 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 0.10-1.50 ng/ml Increased Risk for Adv erse Clinical Events. Evaluation of additional criterion and/or repeat testing in 2-6 hours is suggested to rule out myocardial damage. >= 1.50 ng/ml Indicative of Myocardial Injury. Procedures Date Code Description Status 02/22/2021 37098 Office/Outpatient Established Lo w MDM 20-29 Min Completed 02/11/2021 93574 Office/Outpatient Established Lo w MDM 20-29 Min Completed 02/04/2021 41308 Office/Outpatient Established Mo d MDM 30-39 Min Completed 01/28/2021 31730 Office/Outpatient Established Mo d MDM 30-39 Min Completed 12/02/2020 74774 Office/Outpatient Established Lo w MDM 20-29 Min Completed 11/12/2020 93882 Office/Outpatient Established Mo d MDM 30-39 Min Completed 10/20/2020 33228 [facility] Cre W/I 7 Days Of DC, Comm W/I 2 Dys Completed 09/08/2020 68579 Office/Outpatient Established Mo d MDM 30-39 Min Completed Medical Devices Description No Information Available Encounters Type Date Location Provider Dx Diagnosis Office Visit 02/22/2021 11:40a [facility] Bahvik Celestin D.O. D62 Acute posthemorrhagic anemia D63.8 Anemia in other chronic dise ases classified elsewhere E03.9 Hypothyroidism, unspecified J45.40 Moderate persistent asthma, uncomplicated D51.9 Vitamin B12 deficiency anemi a, unspecified I48.0 Paroxysmal atrial fibrillati on I35.0 Nonrheumatic aortic (valve) stenosis I34.0 Nonrheumatic mitral (valve) insufficiency Office Visit 02/11/2021 1:20p [facility] Amelie ChapaODoris D62 Acute posthemorrhagic anemia D63.8 Anemia in other chronic dise ases classified elsewhere E03.9 Hypothyroidism, unspecified J45.40 Moderate persistent asthma, uncomplicated D51.9 Vitamin B12 deficiency anemi a, unspecified Office Visit 02/04/2021 1:10p [facility] Bhavik Celestin D.O. D62 Acute posthemorrhagic anemia D63.8 Anemia in other chronic dise ases classified elsewhere E03.9 Hypothyroidism, unspecified J45.40 Moderate persistent asthma, uncomplicated D51.9 Vitamin B12 deficiency anemi a, unspecified I48.0 Paroxysmal atrial fibrillati on I35.0 Nonrheumatic aortic (valve) stenosis I34.0 Nonrheumatic mitral (valve) insufficiency Office Visit 01/28/2021 2:40p [facility] Ivette Celestin D.O. D63.8 Anemia in other chronic dise ases classified elsewhere E03.9 Hypothyroidism, unspecified J45.40 Moderate persistent asthma, uncomplicated D51.9 Vitamin B12 deficiency anemi a, unspecified Office Visit 12/02/2020 9:40a [facility] Amelie DuncanO. S51.011A Laceration without foreign b tariq of right elbow, init encntr M81.0 Age-related osteoporosis w/o current pathological fracture Office Visit 11/12/2020 10:00a [facility] AURA Mccallum I10 Essential (primary) hyperten joel E03.9 Hypothyroidism, unspecified I48.0 Paroxysmal atrial fibrillati on J45.40 Moderate persistent asthma, uncomplicated I35.0 Nonrheumatic aortic (valve) stenosis D63.8 Anemia in other chronic dise ases classified elsewhere R60.9 Edema, unspecified Office Visit 10/20/2020 1:40p [facility] AURA Mccallum K80.80 Other cholelithiasis without obstruction Office Visit 09/08/2020 10:00a [facility] Ivette Celestin D.O. I10 Essential (primary) hyperten joel E03.9 Hypothyroidism, unspecified S81.812D Laceration without foreign b tariq, left lower leg, subs encntr I48.0 Paroxysmal atrial fibrillati on J45.40 Moderate persistent asthma, uncomplicated I35.0 Nonrheumatic aortic (valve) stenosis Z88.8 Allergy status to other drug /meds/biol subst Z87.891 Personal history of nicotine dependence Z79.899 Other [facility] (current) dr moffett therapy I34.0 Nonrheumatic mitral [...] endence Ivette Celestin D.O. 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 09/08/2020 I34.0 Nonrheumatic mitral (valve) insu fficiency Ivette Celestin D.O. 09/08/2020 D63.8 Anemia in other chronic diseases classified elsewhere Ivette Celestin D.O. 09/08/2020 E87.6 Hypokalemia Ivette ortiz D.O. 09/08/2020 Z96.642 Presence of left artificial hip joint Ivette Celestin D.O. 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 Plan of Treatment Future Appointment(s):* 03/02/2021 11:30 am - Ivette Celestin D.O. at [facility] Functional Status Description No Information Available Mental Status Description No Information Available Referrals Description No Information Available
--- OUTSIDE RECORDS SUMMARY | 2021-03-04 06:14 | CCD | Continuity of Care Document ---
Author Author Ita CELESTIN D.O. Organization Unknown Address [address] [facility] [address] [place] [address] Phone [phone] Care Team Providers Care Slaughterer Religious Ritual Name Role Phone Ivette Celestin D.O. AUTM Seth Acosta M.D. AUTM [phone] Deangelo Baldwin D.O. AUTM [phone] Woo Cruz M.D. AUTM [phone] Cadence Huang M.D. AUTM [phone] Problems Active Problems Provider Date Disorder of [...] Duncan.O. 01/11 /2021 Vitamin D (Ergocalciferol) 1.25mg (47356 Ut) Capsules Take 1 Capsule By Mouth Once A Week 4caps Amelie DuncanODoris 01/13/2020 Symbicort 160-4.5mcg/Act Aerosol 1 puffs twice a day, rinse out mouth afterwards. 10.200gm Amelie LanierODoris 02/22/2019 Tylenol Extra Strength 500mg Table ts 2 tablets by mouth every 8 hours as needed 30tabs Amelie LanierODoris 01/23/[id number] Bernard 1 tab by mouth [...] CPT Code Status Date Vaccine Lot # [id number] Given 10/05/2015 Pneumococcal Con jugate Vaccine 13 Valent For Intramuscular Use Vital Signs Date Vital Result Comment 02/22/2021 11:49am BP Systolic 134 mmHg BP Diastolic 74 mmHg Height 57.6 inches 4'9.60" Weight 101.12 lb BMI (Body Mass Index) 21.4 kg/m2 Heart Rate 86 /min Respiratory Rate 18 /min Body Temperature 96.9 F O2 % BldC Oximetry 95 % [place] Body Weight 100 lb 02/11/2021 1:25pm BP Systolic 134 mmHg BP Diastolic 82 mmHg Height 57.6 inches 4'9.60" Weight 100.38 lb BMI (Body Mass Index) 21.3 kg/m2 Heart Rate 67 /min Respiratory Rate 18 /min Body Temperature 97.6 F O2 % BldC Oximetry 99 % [place] Body Weight 100 lb Results Test Acquired Date Facility Test Result H/L Range Note Influenza A/B RSV Covid Amp 02/27/2021 [facility] Outpatie nt Testing (Registration) [address] [place] [address]771 [phone] Influenza A Amplification NEGATIVE Normal Negati ve 1 Influenza B Amplification NEGATIVE Normal Negative 2 RSV Amplification NEGATIVE Normal Negative 3 Sars Covid-19 Amplification NEGATIVE Normal Negative 4 Cardiac Marker Panel 02/27/2021 [facility] Outpatient Test ing (Registration) [address] [place] [address] [phone] CPK Creatine Phosphokinase 71 U/L Normal 26-19 2 CK-MB Value Mass 2.3 NG/ML Normal <3.6 MB/CK Relative Index 3.24 Normal < Or =4 5 Troponin I < 0.02 NG/ML Normal < 0.10 6 Liver Profile 02/27/2021 [facility] Outpatient Testi ng (Registration) [address] [place] [address] [phone] Ast/Sgot 19 U/L Normal 7-37 Alt/SGPT 22 U/L Normal 12-78 Alkaline Phosphatase 117 U/L Normal 45-117 Bilirubin,Total 0.4 mg/dL Normal 0.2-1.0 Bilirubin,Direct 0.1 mg/dL Normal 0.0-0.2 Total Protein 6.5 GM/DL Normal 6.4-8.2 Albumin 2.9 GM/DL Low 3.2-5.2 Albumin/Globulin Ratio 0.8 Low 1.2-2.2 Basic Metabolic Profile 02/27/2021 [facility] Outpatient T esting (Registration) [address] [place] [address] [phone] Glucose, Fasting 107 mg/dL High 70-100 Blood [...] mg/dL Low 8.8-10.2 Laboratory test finding 02/27/2021 [facility] Outpatient T esting (Registration) [address] [place] [address] 87857 [phone] Magnesium Level 1.9 mg/dL Normal 1.8-2.4 Lipase 17 U/L Low 73-393 Thyroid Stimulating Hormone 4.390 uIU/ML High 0.358-3.740 Free T4 1.05 ng/dL Normal 0.76-1.46 CBC With Differential 02/27/2021 [facility] Outpatient Natalie ting (Registration) [address] [place] [phone] White Blood Count 4.2 10 Normal 4.0-10.0 [...] 36.0-66.0 Lymph % 25.1 % Normal 24.0-44.0 [place] % 5.5 % Normal 2.0-8.0 Eos % 13.3 % High 0.0-3.0 Baso % 1.7 % High 0.0-1.0 Immature Granulocyte % 0.2 % Normal 0-3.0 Nucleated Red Blood Cell % 0.0 % Normal 0-0 Neutrophils # 2.3 10 Normal 1.5-8.5 Lymph # 1.0 10 Low 1.5-5.0 [place] # 0.2 10 Normal 0.0-0.8 Eos # 0.6 10 High 0.0-0.5 Baso # 0.1 10 Normal 0.0-0.2 Prothrombin Time/Inr 02/27/2021 [facility] Outpatient Test ing (Registration) [address] [place] [address] [phone] Prothrombin Time 17.0 seconds High 12.7-14.5 Inr 1.34 Normal 8 Laboratory test finding 02/27/2021 [facility] Outpatient T esting (Registration) [address] [place] [address] [phone] Partial Thromboplastin Time 38.9 seconds High 25 .9-37.0 Coronavirus 2019 Nasopharygeal 02/27/2021 [facility] Outpa tient Testing (Registration) [address] [place] [address] [phone] Coronavirus 2019 Nasopharygeal ASSAY INFORMATIO <SEE N OTE> 9 Coronavirus 2019 Nasopharygeal 02/18/2021 [facility] Outpa tient Testing (Registration) [address] [place] [address] [phone] Coronavirus 2019 Nasopharygeal ASSAY INFORMATIO <SEE N OTE> 10 Coronavirus 2019 Nasopharygeal 01/22/2021 [facility] Outpa tient Testing (Registration) [address] [place] [address] [phone] Coronavirus 2019 Nasopharygeal ASSAY INFORMATIO <SEE N OTE> 11 Liver Profile 10/09/2020 [facility] Outpatient Testi ng (Registration) [address] [place] [address] [phone] Ast/Sgot 247 U/L High 7-37 Alt/SGPT 88 U/L High 12-78 Alkaline Phosphatase 201 U/L High 45-117 Bilirubin,Total 1.5 mg/dL High 0.2-1.0 Bilirubin,Direct 1.0 mg/dL High 0.0-0.2 Total Protein 7.8 GM/DL Normal 6.4-8.2 Albumin 3.3 GM/DL Normal 3.2-5.2 Albumin/Globulin Ratio 0.7 Low 1.2-2.2 Basic Metabolic Profile 10/09/2020 [facility] Outpatient T esting (Registration) [address] [place] [address]64 [phone] Glucose, Fasting 151 mg/dL High 70-100 Blood [...] mg/dL Low 8.8-10.2 Laboratory test finding 10/09/2020 [facility] Outpatient T esting (Registration) [address] [place] [address] 20206 [phone] Amylase 41 U/L Normal 25-115 Lipase 34 U/L Low 73-393 Cardiac Marker Panel 10/09/2020 [facility] Outpatient Test ing (Registration) [address] [place] [address] 99165 [phone] CPK Creatine Phosphokinase 98 U/L Normal 26-19 2 CK-MB Value Mass 1.6 NG/ML Normal <3.6 MB/CK Relative Index 1.63 Normal < Or =4 13 Troponin I < 0.02 NG/ML Normal < 0.10 14 CBC With Differential 10/09/2020 [facility] Outpatient Natalie ting (Registration) [address] [place] [address]14 [phone] White Blood Count 6.1 10 Normal 4.0-10.0 [...] 36.0-66.0 Lymph % 13.3 % Low 24.0-44.0 [place] % 5.4 % Normal 2.0-8.0 Eos % 2.0 % Normal 0.0-3.0 Baso % 0.7 % Normal 0.0-1.0 Immature Granulocyte % 0.3 % Normal 0-3.0 Nucleated Red Blood Cell % 0.0 % Normal 0-0 Neutrophils # 4.8 10 Normal 1.5-8.5 Lymph # 0.8 10 Low 1.5-5.0 [place] # 0.3 10 Normal 0.0-0.8 Eos # 0.1 10 Normal 0.0-0.5 Baso # 0.0 10 Normal 0.0-0.2 Ua W/ Reflex To Culture 10/09/2020 [facility] Outpatient T michael (Registration) [address] [place] [address] [phone] Appearance, Urine RFX HAZY Normal Clear Color, Urine RFX YELLOW Normal Yellow PH,Urine RFX 7.0 units Normal 5.0-9.0 Specific [place] Ur Auto RFX 1.009 Normal 1.002-1.035 Protein, [...] pathogens. DISCLAIMER: Testing was performed using the [employer] SARS-CoV-2 test. This test was developed and its performance characteristics determined by [employer]. This test has not been FDA cleared [...] Troponin I Reference Interva l for [employer] LOCI: 99th Percentile= 0.00-0.045 ng/ml Risk Stratification: [...] Little GFR Left ESRD GFR <15 on FRUIT PEELER 8 THERAPUTIC HUMAN INR VALUES INDICATIONS NORMAL [...] Administration under the Emergency Use Authorization (EUA). [facility] and [facility] are designated as high complexity laboratories by the Clinical Laboratory Improvement Amendments of 1988(CLIA) and are qualified to perform this test. Not Detected 10 ASSAY INFORMATION: Real Time RT-PCR or TMA. Both RT-PCR and TMA are nucleic acid amplification tests (NAAT) which are molecular testing modalities and recommended by the CDC for passenger travel. Testing and International Air Travel, cdc.gov/coronavirus/2019-ncov/travelers/vfshzds-gno-fdgqif.html 06/18/2020 NOTE: The COVID-19 assay is under Emergency Use Authorization (EUA) by the U.S. Food and Drug Administration. [facility] and [facility] are designated as high complexity laboratories by the Clinical Laboratory Improvement Amendments of 1988 (CLIA) and are qualified to perform this test. Not Detected 11 ASSAY INFORMATION: Real Time RT-PCR NOTE: The COVID-19 assay has been cleared by the U.S. Food and Drug Administration under the Emergency Use Authorization (EUA). [facility] and [facility] are designated as high complexity [...] Little GFR Left ESRD GFR <15 on FRUIT PEELER 13 DIAGNOSIS CRITERIA MMB ng/ml Relative Index (RI) NON-AMI < or = 5 N/A FLOWERS ZONE > 5 < or = 4 AMI > 5 > 4 14 Troponin I Reference Interva l for [employer] LOCI: 99th Percentile= 0.00-0.045 ng/ml Risk Stratification: <= 0.10 ng/ml Decreased Risk for Adverse Clinical Events. 0.10-1.50 ng/ml Increased Risk for Adv erse Clinical Events. Evaluation of additional criterion and/or repeat testing in 2-6 hours is suggested to rule out myocardial damage. >= 1.50 ng/ml Indicative of Myocardial Injury. Procedures Date Code Description Status 02/22/2021 76271 Office/Outpatient Established Lo w MDM 20-29 Min Completed 02/11/2021 02955 Office/Outpatient Established Lo w MDM 20-29 Min Completed 02/04/2021 78067 Office/Outpatient Established Mo d MDM 30-39 Min Completed 01/28/2021 44505 Office/Outpatient Established Mo d MDM 30-39 Min Completed 12/02/2020 12265 Office/Outpatient Established Lo w MDM 20-29 Min Completed 11/12/2020 05195 Office/Outpatient Established Mo d MDM 30-39 Min Completed 10/20/2020 60046 [facility] Cre W/I 7 Days Of DC, Comm W/I 2 Dys Completed 09/08/2020 38903 Office/Outpatient Established Mo d MDM 30-39 Min Completed Medical Devices Description No Information Available Encounters Type Date Location Provider Dx Diagnosis Office Visit 02/22/2021 11:40a [facility] Bhavik Celestin D.O. D62 Acute posthemorrhagic anemia D63.8 Anemia in other chronic dise ases classified elsewhere E03.9 Hypothyroidism, unspecified J45.40 Moderate persistent asthma, uncomplicated D51.9 Vitamin B12 deficiency anemi a, unspecified I48.0 Paroxysmal atrial fibrillati on I35.0 Nonrheumatic aortic (valve) stenosis I34.0 Nonrheumatic mitral (valve) insufficiency Office Visit 02/11/2021 1:20p [facility] Bhavik Celestin D.O. D62 Acute posthemorrhagic anemia D63.8 Anemia in other chronic dise ases classified elsewhere E03.9 Hypothyroidism, unspecified J45.40 Moderate persistent asthma, uncomplicated D51.9 Vitamin B12 deficiency anemi a, unspecified Office Visit 02/04/2021 1:10p [facility] Anish Duncan.ODoris D62 Acute posthemorrhagic anemia D63.8 Anemia in other chronic dise ases classified elsewhere E03.9 Hypothyroidism, unspecified J45.40 Moderate persistent asthma, uncomplicated D51.9 Vitamin B12 deficiency anemi a, unspecified I48.0 Paroxysmal atrial fibrillati on I35.0 Nonrheumatic aortic (valve) stenosis I34.0 Nonrheumatic mitral (valve) insufficiency Office Visit 01/28/2021 2:40p [facility] Ivette Celestin D.O. D63.8 Anemia in other chronic dise ases classified elsewhere E03.9 Hypothyroidism, unspecified J45.40 Moderate persistent asthma, uncomplicated D51.9 Vitamin B12 deficiency anemi a, unspecified Office Visit 12/02/2020 9:40a [facility] Amelie DuncanO. S51.011A Laceration without foreign b tariq of right elbow, init encntr M81.0 Age-related osteoporosis w/o current pathological fracture Office Visit 11/12/2020 10:00a [facility] AURA Mccallum I10 Essential (primary) hyperten joel E03.9 Hypothyroidism, unspecified I48.0 Paroxysmal atrial fibrillati on J45.40 Moderate persistent asthma, uncomplicated I35.0 Nonrheumatic aortic (valve) stenosis D63.8 Anemia in other chronic dise ases classified elsewhere R60.9 Edema, unspecified Office Visit 10/20/2020 1:40p [facility] AURA Mccallum K80.80 Other cholelithiasis without obstruction Office Visit 09/08/2020 10:00a [facility] Ivette Celestin D.O. I10 Essential (primary) hyperten joel E03.9 Hypothyroidism, unspecified S81.812D Laceration without foreign b tariq, left lower leg, subs encntr I48.0 Paroxysmal atrial fibrillati on J45.40 Moderate persistent asthma, uncomplicated I35.0 Nonrheumatic aortic (valve) stenosis Z88.8 Allergy status to other drug /meds/biol subst Z87.891 Personal history of nicotine dependence Z79.899 Other intermediate designer (current) dr betina therapy I34.0 Nonrheumatic mitral (valve) insufficiency D63.8 Anemia in other chronic dise ases classified elsewhere E87.6 Hypokalemia Z96.642 Presence of left artificial hip joint 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 02/22/2021 D63.8 Anemia in other chronic diseases classified elsewhere vIette Celestin D.O. 02/22/2021 E03.9 Hypothyroidism, unspecified Ivette Celestin, D.O. 02/22/2021 J45.40 Moderate persistent asthma, unco mplicated Ivette Ventura D.O. 02/22/2021 D51.9 Vitamin B12 deficiency anemia, u nspecified Ivette Ventura, D.O. 02/22/2021 I48.0 Paroxysmal atrial fibrillation Armen Celestin D.O. 02/22/2021 I35.0 Nonrheumatic aortic (valve) sten osis Ivette Celestin D.O. 02/22/2021 I34.0 Nonrheumatic mitral (valve) insu fficiency Ivette Celestin D.O. 02/11/2021 D62 Acute posthemorrhagic anemia Anai Celestin D.O. 02/11/2021 D63.8 Anemia in other chronic diseases classified elsewhere Ivette Celestin D.O. 02/11/2021 E03.9 Hypothyroidism, unspecified Ivette Celestin, D.O. 02/11/2021 J45.40 Moderate persistent asthma, unco mplicated Ivette Ventura, D.O. 02/11/2021 D51.9 Vitamin B12 deficiency anemia, u nspecified Ivette Ventura D.O. 02/04/2021 D62 Acute posthemorrhagic anemia Anai [...] endence Ivette Celestin D.O. 09/08/2020 Z79.899 Other fci (current) drug t herapy Ivette Celestin D.O. 09/08/2020 I34.0 Nonrheumatic mitral (valve) insu fficiency Ivette Celestin D.O. 09/08/2020 D63.8 Anemia in other chronic diseases classified elsewhere Ivette Celestin D.O. 09/08/2020 E87.6 Hypokalemia Ivette ortiz D.O. 09/08/2020 Z96.642 Presence of left artificial hip joint Ivette Celestin D.O. 09/08/2020 I25.10 Atherosclerotic hear t disease of [place] coronary artery without angina pectoris Ivette Celestin D.O. Plan of Treatment Future Appointment(s):* 03/02/2021 11:30 am - Ivette Celestin D.O. at [facility] Functional Status Description No Information Available Mental Status Description No Information Available Referrals Description No Information Available
--- OUTSIDE RECORDS SUMMARY | 2021-03-04 06:14 | CCD | Continuity of Care Document ---
Author Author Ita CELESTIN D.O. Organization Unknown Address [address] [facility] [address] [place] [address] Phone [phone] Care Team Providers Care Orthodontist Vice President Name Role Phone Ivette Celestin D.O. AUTM Seth Aocsta M.D. AUTM [phone] Deangelo Baldwin D.O. AUTM [phone] Woo Cruz M.D. AUTM [phone] Cadence Huang M.D. AUTM [phone] Problems Active Problems Provider Date Disorder of [...] Duncan.O. 01/11 /2021 Vitamin D (Ergocalciferol) 1.25mg (11003 Ut) Capsules Take 1 Capsule By Mouth Once A Week 4caps Amelie DuncanODoris 01/13/2020 Symbicort 160-4.5mcg/Act Aerosol 1 puffs twice a day, rinse out mouth afterwards. 10.200gm Amelie LanierODoris 02/22/2019 Tylenol Extra Strength 500mg Table ts 2 tablets by mouth every 8 hours as needed 30tabs Amelie LanierODoris 01/23/[id number] Bernard 1 tab by mouth [...] CPT Code Status Date Vaccine Lot # [id number] Given 10/05/2015 Pneumococcal Con jugate Vaccine 13 Valent For Intramuscular Use Vital Signs Date Vital Result Comment 02/22/2021 11:49am BP Systolic 134 mmHg BP Diastolic 74 mmHg Height 57.6 inches 4'9.60" Weight 101.12 lb BMI (Body Mass Index) 21.4 kg/m2 Heart Rate 86 /min Respiratory Rate 18 /min Body Temperature 96.9 F O2 % BldC Oximetry 95 % [place] Body Weight 100 lb 02/11/2021 1:25pm BP Systolic 134 mmHg BP Diastolic 82 mmHg Height 57.6 inches 4'9.60" Weight 100.38 lb BMI (Body Mass Index) 21.3 kg/m2 Heart Rate 67 /min Respiratory Rate 18 /min Body Temperature 97.6 F O2 % BldC Oximetry 99 % [place] Body Weight 100 lb Results Test Acquired Date Facility Test Result H/L Range Note Cardiac Marker Panel 02/27/2021 [facility] Outpatient Test ing (Registration) [address] [place] [address] [phone] CPK Creatine Phosphokinase 71 U/L Normal 26-19 2 CK-MB Value Mass 2.3 NG/ML Normal <3.6 MB/CK Relative Index 3.24 Normal < Or =4 1 Troponin I < 0.02 NG/ML Normal < 0.10 2 Liver Profile 02/27/2021 [facility] Outpatient Testi ng (Registration) [address] [place] [address] [phone] Ast/Sgot 19 U/L Normal 7-37 Alt/SGPT 22 U/L Normal 12-78 Alkaline Phosphatase 117 U/L Normal 45-117 Bilirubin,Total 0.4 mg/dL Normal 0.2-1.0 Bilirubin,Direct 0.1 mg/dL Normal 0.0-0.2 Total Protein 6.5 GM/DL Normal 6.4-8.2 Albumin 2.9 GM/DL Low 3.2-5.2 Albumin/Globulin Ratio 0.8 Low 1.2-2.2 Basic Metabolic Profile 02/27/2021 [facility] Outpatient T esting (Registration) [address] [place] [address] [phone] Glucose, Fasting 107 mg/dL High 70-100 Blood [...] [facility] [address] [place] [address] [phone] Magnesium Level 1.9 mg/dL Normal 1.8-2.4 Lipase 17 U/L Low 73-393 Thyroid Stimulating Hormone 4.390 uIU/ML High 0.358-3.740 Free T4 1.05 ng/dL Normal 0.76-1.46 CBC With Differential 02/27/2021 [facility] Outpatient Natalie raina (Registration) [address] [place] [address] [phone] White Blood Count 4.2 10 Normal 4.0-10.0 [...] 36.0-66.0 Lymph % 25.1 % Normal 24.0-44.0 [place] % 5.5 % Normal 2.0-8.0 Eos % 13.3 % High 0.0-3.0 Baso % 1.7 % High 0.0-1.0 Immature Granulocyte % 0.2 % Normal 0-3.0 Nucleated Red Blood Cell % 0.0 % Normal 0-0 Neutrophils # 2.3 10 Normal 1.5-8.5 Lymph # 1.0 10 Low 1.5-5.0 [place] # 0.2 10 Normal 0.0-0.8 Eos # 0.6 10 High 0.0-0.5 Baso # 0.1 10 Normal 0.0-0.2 Prothrombin Time/Inr 02/27/2021 [facility] Outpatient Test ing (Registration) [address] [place], [place] [id number] [phone] Prothrombin Time 17.0 seconds High 12.7-14.5 Inr 1.34 Normal 4 Laboratory test finding 02/27/2021 [facility] Outpatient T esting (Registration) [address] [place] [address] [phone] Partial Thromboplastin Time 38.9 seconds High 25 .9-37.0 Coronavirus 2019 Nasopharygeal 02/27/2021 [facility] Outpa tient Testing (Registration) [address] [place] [address] [phone] Coronavirus 2019 Nasopharygeal ASSAY INFORMATIO <SEE N OTE> 5 Influenza A/B RSV Covid Amp 02/27/2021 [facility] Outpatie nt Testing (Registration) [address] [place] [address] [phone] Influenza A Amplification NEGATIVE Normal Negati ve 6 Influenza B Amplification NEGATIVE Normal Negative 7 RSV Amplification NEGATIVE Normal Negative 8 Sars Covid-19 Amplification NEGATIVE Normal Negative 9 Coronavirus 2019 Nasopharygeal 02/18/2021 [facility] Outpa tient Testing (Registration) [address] [place] [address] [phone] Coronavirus 2019 Nasopharygeal ASSAY INFORMATIO <SEE N OTE> 10 Coronavirus 2019 Nasopharygeal 01/22/2021 [facility] Outpa tient Testing (Registration) [address] [place] [address] [phone] Coronavirus 2019 Nasopharygeal ASSAY INFORMATIO <SEE N OTE> 11 Liver Profile 10/09/2020 [facility] Outpatient Testi ng (Registration) [address] [place] [address] [phone] Ast/Sgot 247 U/L High 7-37 Alt/SGPT 88 U/L High 12-78 Alkaline Phosphatase 201 U/L High 45-117 Bilirubin,Total 1.5 mg/dL High 0.2-1.0 Bilirubin,Direct 1.0 mg/dL High 0.0-0.2 Total Protein 7.8 GM/DL Normal 6.4-8.2 Albumin 3.3 GM/DL Normal 3.2-5.2 Albumin/Globulin Ratio 0.7 Low 1.2-2.2 Basic Metabolic Profile 10/09/2020 [facility] Outpatient T esting (Registration) [address] [place] [address] [phone] Glucose, Fasting 151 mg/dL High 70-100 Blood [...] [facility] [address] [place] [address] [phone] Amylase 41 U/L Normal 25-115 Lipase 34 U/L Low 73-393 Cardiac Marker Panel 10/09/2020 [facility] Outpatient Test ing (Registration) [address] [place] [address] [phone] CPK Creatine Phosphokinase 98 U/L Normal 26-19 2 CK-MB Value Mass 1.6 NG/ML Normal <3.6 MB/CK Relative Index 1.63 Normal < Or =4 13 Troponin I < 0.02 NG/ML Normal < 0.10 14 CBC With Differential 10/09/2020 [facility] Outpatient Natalie ting (Registration) [address] [place] [address] [phone] White Blood Count 6.1 10 Normal 4.0-10.0 [...] 36.0-66.0 Lymph % 13.3 % Low 24.0-44.0 [place] % 5.4 % Normal 2.0-8.0 Eos % 2.0 % Normal 0.0-3.0 Baso % 0.7 % Normal 0.0-1.0 Immature Granulocyte % 0.3 % Normal 0-3.0 Nucleated Red Blood Cell % 0.0 % Normal 0-0 Neutrophils # 4.8 10 Normal 1.5-8.5 Lymph # 0.8 10 Low 1.5-5.0 [place] # 0.3 10 Normal 0.0-0.8 Eos # 0.1 10 Normal 0.0-0.5 Baso # 0.0 10 Normal 0.0-0.2 Ua W/ Reflex To Culture 10/09/2020 [facility] Outpatient T michael (Registration) [address] [place] [address] [phone] Appearance, Urine RFX HAZY Normal Clear Color, Urine RFX YELLOW Normal Yellow PH,Urine RFX 7.0 units Normal 5.0-9.0 Specific [place] Ur Auto RFX 1.009 Normal 1.002-1.035 Protein, [...] Troponin I Reference Interva l for [employer] LOCI: 99th Percentile= 0.00-0.045 ng/ml Risk Stratification: [...] Little GFR Left ESRD GFR <15 on TRANSPORTATION ENGINEER 4 THERAPUTIC HUMAN INR VALUES INDICATIONS NORMAL [...] Administration under the Emergency Use Authorization (EUA). [employer] and [facility] are designated as high complexity laboratories by [...] pathogens. DISCLAIMER: Testing was performed using the [employer] SARS-CoV-2 test. This test was developed and its performance characteristics determined by [employer]. This test has not been FDA cleared [...] passenger travel. Testing and International Air Travel, cdc.gov/coronavirus/2019-ncov/travelers/swmopxz-wqy-xiutgx.html 06/18/2020 NOTE: The COVID-19 assay is under Emergency Use Authorization (EUA) by the U.S. Food and Drug Administration. [employer] and [facility] are designated as high complexity laboratories by the Clinical Laboratory Improvement Amendments of 1988 (CLIA) and are qualified to perform this test. Not Detected 11 ASSAY INFORMATION: Real Time RT-PCR NOTE: The COVID-19 assay has been cleared by the U.S. Food and Drug Administration under the Emergency Use Authorization (EUA). [employer] and [employer] are designated as high complexity laboratories by [...] Little GFR Left ESRD GFR <15 on TRANSPORTATION ENGINEER 13 DIAGNOSIS CRITERIA MMB ng/ml Relative Index (RI) NON-AMI < or = 5 N/A FLOWERS ZONE > 5 < or = 4 AMI > 5 > 4 14 Troponin I Reference Interva l for [employer] LOCI: 99th Percentile= 0.00-0.045 ng/ml Risk Stratification: <= 0.10 ng/ml Decreased Risk for Adverse Clinical Events. 0.10-1.50 ng/ml Increased Risk for Adv erse Clinical Events. Evaluation of additional criterion and/or repeat testing in 2-6 hours is suggested to rule out myocardial damage. >= 1.50 ng/ml Indicative of Myocardial Injury. Procedures Date Code Description Status 02/22/2021 30041 Office/Outpatient Established Lo w MDM 20-29 Min Completed 02/11/2021 15796 Office/Outpatient Established Lo w MDM 20-29 Min Completed 02/04/2021 99060 Office/Outpatient Established Mo d MDM 30-39 Min Completed 01/28/2021 35699 Office/Outpatient Established Mo d MDM 30-39 Min Completed 12/02/2020 22669 Office/Outpatient Established Lo w MDM 20-29 Min Completed 11/12/2020 62900 Office/Outpatient Established Mo d MDM 30-39 Min Completed 10/20/2020 44013 [facility] Cre W/I 7 Days Of DC, Comm W/I 2 Dys Completed 09/08/2020 74092 Office/Outpatient Established Mo d MDM 30-39 Min Completed Medical Devices Description No Information Available Encounters Type Date Location Provider Dx Diagnosis Office Visit 02/22/2021 11:40a [facility] Bhavik Celestin D.O. D62 Acute posthemorrhagic anemia D63.8 Anemia in other chronic dise ases classified elsewhere E03.9 Hypothyroidism, unspecified J45.40 Moderate persistent asthma, uncomplicated D51.9 Vitamin B12 deficiency anemi a, unspecified I48.0 Paroxysmal atrial fibrillati on I35.0 Nonrheumatic aortic (valve) stenosis I34.0 Nonrheumatic mitral (valve) insufficiency Office Visit 02/11/2021 1:20p [facility] Bhavik Celestin D.O. D62 Acute posthemorrhagic anemia D63.8 Anemia in other chronic dise ases classified elsewhere E03.9 Hypothyroidism, unspecified J45.40 Moderate persistent asthma, uncomplicated D51.9 Vitamin B12 deficiency anemi a, unspecified Office Visit 02/04/2021 1:10p [facility] Anish Duncan.ODoris D62 Acute posthemorrhagic anemia D63.8 Anemia in other chronic dise ases classified elsewhere E03.9 Hypothyroidism, unspecified J45.40 Moderate persistent asthma, uncomplicated D51.9 Vitamin B12 deficiency anemi a, unspecified I48.0 Paroxysmal atrial fibrillati on I35.0 Nonrheumatic aortic (valve) stenosis I34.0 Nonrheumatic mitral (valve) insufficiency Office Visit 01/28/2021 2:40p [facility] Ivette Celestin D.O. D63.8 Anemia in other chronic dise ases classified elsewhere E03.9 Hypothyroidism, unspecified J45.40 Moderate persistent asthma, uncomplicated D51.9 Vitamin B12 deficiency anemi a, unspecified Office Visit 12/02/2020 9:40a [facility] Amelie DuncanO. S51.011A Laceration without foreign b tariq of right elbow, init encntr M81.0 Age-related osteoporosis w/o current pathological fracture Office Visit 11/12/2020 10:00a [facility] AURA Mccallum I10 Essential (primary) hyperten joel E03.9 Hypothyroidism, unspecified I48.0 Paroxysmal atrial fibrillati on J45.40 Moderate persistent asthma, uncomplicated I35.0 Nonrheumatic aortic (valve) stenosis D63.8 Anemia in other chronic dise ases classified elsewhere R60.9 Edema, unspecified Office Visit 10/20/2020 1:40p [facility] AURA Mccallum K80.80 Other cholelithiasis without obstruction Office Visit 09/08/2020 10:00a [facility] Ivette Celestin D.O. 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 02/22/2021 E03.9 Hypothyroidism, unspecified Ivette [...] 09/08/2020 I25.10 Atherosclerotic hear t disease of [place] coronary artery without angina pectoris Ivette Celestin D.O. Plan of Treatment Future Appointment(s):* 03/02/2021 11:30 am - Ivette Celestin D.O. at [facility] Functional Status Description No Information Available Mental Status Description No Information Available Referrals Description No Information Available
--- OUTSIDE RECORDS SUMMARY | 2021-03-04 06:14 | CCD | Continuity of Care Document ---
Author Organization Unknown Address Unknown Phone Unavailable Care Team Providers Care A P Mechanic Name Role Phone Ivette Celestin D.O. AUTM Seth Acosta M.D. AUTM [phone] Deangelo Baldwin D.O. AUTM [phone] Woo Cruz M.D. AUTM [phone] Cadence Huang M.D. AUTM [phone] Problems Active Problems Provider Date Disorder of [...] Amelie DuncanO. 05/11 Vitamin D (Ergocalciferol) 1.25mg (69349 Ut) Capsules Take 1 Capsule By Mouth Once A Week 4caps Amelie DuncanODoris 01/13/2020 Symbicort 160-4.5mcg/Act Aerosol 1 puffs twice a day, rinse out mouth afterwards. 10.200gm Amelie LanierODoris 02/22/2019 Tylenol Extra Strength 500mg Table ts 2 tablets by mouth every 8 hours as needed 30tabs Amelie LanierODoris 01/23/[id number] Bernard 1 tab by mouth [...] CPT Code Status Date Vaccine Lot # [id number] Given 10/05/2015 Pneumococcal Con jugate Vaccine 13 Valent For Intramuscular Use Vital Signs Date Vital Result Comment 02/22/2021 11:49am BP Systolic 134 mmHg BP Diastolic 74 mmHg Height 57.6 inches 4'9.60" Weight 101.12 lb BMI (Body Mass Index) 21.4 kg/m2 Heart Rate 86 /min Respiratory Rate 18 /min Body Temperature 96.9 F O2 % BldC Oximetry 95 % [place] Body Weight 100 lb 02/11/2021 1:25pm BP Systolic 134 mmHg BP Diastolic 82 mmHg Height 57.6 inches 4'9.60" Weight 100.38 lb BMI (Body Mass Index) 21.3 kg/m2 Heart Rate 67 /min Respiratory Rate 18 /min Body Temperature 97.6 F O2 % BldC Oximetry 99 % [place] Body Weight 100 lb Results Test Acquired Date Facility Test Result H/L Range Note Cardiac Marker Panel 02/27/2021 [facility] ing (Registration) [address] [place] [address] [phone] CPK Creatine Phosphokinase 71 U/L Normal 26-19 2 CK-MB Value Mass 2.3 NG/ML Normal <3.6 MB/CK Relative Index 3.24 Normal < Or =4 1 Troponin I < 0.02 NG/ML Normal < 0.10 2 Liver Profile 02/27/2021 [facility] (Registration) [address] [place] [address] [phone] Ast/Sgot 19 U/L Normal 7-37 Alt/SGPT 22 U/L Normal 12-78 Alkaline Phosphatase 117 U/L Normal 45-117 Bilirubin,Total 0.4 mg/dL Normal 0.2-1.0 Bilirubin,Direct 0.1 mg/dL Normal 0.0-0.2 Total Protein 6.5 GM/DL Normal 6.4-8.2 Albumin 2.9 GM/DL Low 3.2-5.2 Albumin/Globulin Ratio 0.8 Low 1.2-2.2 Basic Metabolic Profile 02/27/2021 [facility] T est[facility] (Registration) [address] [place] [address] [phone] Glucose, Fasting 107 mg/dL High 70-100 Blood [...] mg/dL Low 8.8-10.2 Laboratory test finding 02/27/2021 [facility] Outpatient T michael (Registration) [address] [place] [address] [phone] Magnesium Level 1.9 mg/dL Normal 1.8-2.4 Lipase 17 U/L Low 73-393 Thyroid Stimulating Hormone 4.390 uIU/ML High 0.358-3.740 Free T4 1.05 ng/dL Normal 0.76-1.46 CBC With Differential 02/27/2021 [facility] Outpatient Natalie raina (Registration) [address] [place] [address] [phone] White Blood Count 4.2 10 Normal 4.0-10.0 [...] 36.0-66.0 Lymph % 25.1 % Normal 24.0-44.0 [place] % 5.5 % Normal 2.0-8.0 Eos % 13.3 % High 0.0-3.0 Baso % 1.7 % High 0.0-1.0 Immature Granulocyte % 0.2 % Normal 0-3.0 Nucleated Red Blood Cell % 0.0 % Normal 0-0 Neutrophils # 2.3 10 Normal 1.5-8.5 Lymph # 1.0 10 Low 1.5-5.0 [place] # 0.2 10 Normal 0.0-0.8 Eos # 0.6 10 High 0.0-0.5 Baso # 0.1 10 Normal 0.0-0.2 Prothrombin Time/Inr 02/27/2021 [facility] (Registration) [address] [place] [address] [phone] Prothrombin Time 17.0 seconds High 12.7-14.5 Inr 1.34 Normal 4 Laboratory test finding 02/27/2021 [facility] Out[facility] T esting (Registration) [address] [place] [address] [phone] Partial Thromboplastin Time 38.9 seconds High 25 .9-37.0 Coronavirus 2019 Nasopharygeal 02/27/2021 [facility] Outpa tient Testing (Registration) [address] [place] [address] [phone] Coronavirus 2019 Nasopharygeal ASSAY INFORMATIO <SEE N OTE> 5 Influenza A/B RSV Covid Amp 02/27/2021 [facility] Outpatie nt Testing (Registration) [address] [place] [address] [phone] Influenza A Amplification NEGATIVE Normal Negati ve 6 Influenza B Amplification NEGATIVE Normal Negative 7 RSV Amplification NEGATIVE Normal Negative 8 Sars Covid-19 Amplification NEGATIVE Normal Negative 9 Coronavirus 2019 Nasopharygeal 02/18/2021 [facility]pa tient Testing (Registration) [address] [place] [address] [phone] Coronavirus 2019 Nasopharygeal ASSAY INFORMATIO <SEE N OTE> 10 Coronavirus 2019 Nasopharygeal 01/22/2021 [facility]pa tient Testing (Registration) [address] [place] [address] [phone] Coronavirus 2019 Nasopharygeal ASSAY INFORMATIO <SEE N OTE> 11 Liver Profile 10/09/2020 [facility] (Registration) [address] [place] [address] [phone] Ast/Sgot 247 U/L High 7-37 Alt/SGPT 88 U/L High 12-78 Alkaline Phosphatase 201 U/L High 45-117 Bilirubin,Total 1.5 mg/dL High 0.2-1.0 Bilirubin,Direct 1.0 mg/dL High 0.0-0.2 Total Protein 7.8 GM/DL Normal 6.4-8.2 Albumin 3.3 GM/DL Normal 3.2-5.2 Albumin/Globulin Ratio 0.7 Low 1.2-2.2 Basic Metabolic Profile 10/09/2020 [facility] T est[facility] (Registration) [address] [place] [address] [phone] Glucose, Fasting 151 mg/dL High 70-100 Blood [...] mg/dL Low 8.8-10.2 Laboratory test finding 10/09/2020 [facility] Out[facility] T esting (Registration) [address] [place] [address] [phone] Amylase 41 U/L Normal 25-115 Lipase 34 U/L Low 73-393 Cardiac Marker Panel 10/09/2020 [facility] Test [facility] (Registration) [address] [place] [address] [phone] CPK Creatine Phosphokinase 98 U/L Normal 26-19 2 CK-MB Value Mass 1.6 NG/ML Normal <3.6 MB/CK Relative Index 1.63 Normal < Or =4 13 Troponin I < 0.02 NG/ML Normal < 0.10 14 CBC With Differential 10/09/2020 [facility] Outpatient Natalie ting (Registration) [address] [place] [address] [phone] White Blood Count 6.1 10 Normal 4.0-10.0 [...] 36.0-66.0 Lymph % 13.3 % Low 24.0-44.0 [place] % 5.4 % Normal 2.0-8.0 Eos % 2.0 % Normal 0.0-3.0 Baso % 0.7 % Normal 0.0-1.0 Immature Granulocyte % 0.3 % Normal 0-3.0 Nucleated Red Blood Cell % 0.0 % Normal 0-0 Neutrophils # 4.8 10 Normal 1.5-8.5 Lymph # 0.8 10 Low 1.5-5.0 [place] # 0.3 10 Normal 0.0-0.8 Eos # 0.1 10 Normal 0.0-0.5 Baso # 0.0 10 Normal 0.0-0.2 Ua W/ Reflex To Culture 10/09/2020 [facility] Outpatient T vijayaing (Registration) [address] [place] [address] [phone] Appearance, Urine RFX HAZY Normal Clear Color, Urine RFX YELLOW Normal Yellow PH,Urine RFX 7.0 units Normal 5.0-9.0 Specific [place] Ur Auto RFX 1.009 Normal 1.002-1.035 Protein, [...] Troponin I Reference Interva l for [employer] LOCI: 99th Percentile= 0.00-0.045 ng/ml Risk Stratification: [...] Little GFR Left ESRD GFR <15 on CREDIT CONTROL ADMINISTRATOR 4 THERAPUTIC HUMAN INR VALUES INDICATIONS NORMAL [...] Administration under the Emergency Use Authorization (EUA). [facility] are designated as high complexity laboratories by [...] pathogens. DISCLAIMER: Testing was performed using the [facility] SARS-CoV-2 test. This test was developed and its performance characteristics determined by [facility]. This test has not been FDA cleared [...] passenger travel. Testing and International Air Travel, cdc.gov/coronavirus/2019-ncov/travelers/bsspyin-yqe-odsaxq.html 06/18/2020 NOTE: The COVID-19 assay is under Emergency Use Authorization (EUA) by the U.S. Food and Drug Administration. [facility] and [facility] are designated as high complexity laboratories by the Clinical Laboratory Improvement Amendments of 1988 (CLIA) and are qualified to perform this test. Not Detected 11 ASSAY INFORMATION: Real Time RT-PCR NOTE: The COVID-19 assay has been cleared by the U.S. Food and Drug Administration under the Emergency Use Authorization (EUA). [facility] and [facility] are designated as high complexity laboratories by [...] Little GFR Left ESRD GFR <15 on CREDIT CONTROL ADMINISTRATOR 13 DIAGNOSIS CRITERIA MMB ng/ml Relative Index (RI) NON-AMI < or = 5 N/A FLOWERS ZONE > 5 < or = 4 AMI > 5 > 4 14 Troponin I Reference Interva l for [employer] LOCI: 99th Percentile= 0.00-0.045 ng/ml Risk Stratification: <= 0.10 ng/ml Decreased Risk for Adverse Clinical Events. 0.10-1.50 ng/ml Increased Risk for Adv erse Clinical Events. Evaluation of additional criterion and/or repeat testing in 2-6 hours is suggested to rule out myocardial damage. >= 1.50 ng/ml Indicative of Myocardial Injury. Procedures Date Code Description Status 02/22/2021 72101 Office/Outpatient Established Lo w MDM 20-29 Min Completed 02/11/2021 23235 Office/Outpatient Established Lo w MDM 20-29 Min Completed 02/04/2021 15098 Office/Outpatient Established Mo d MDM 30-39 Min Completed 01/28/2021 68120 Office/Outpatient Established Mo d MDM 30-39 Min Completed 12/02/2020 59052 Office/Outpatient Established Lo w MDM 20-29 Min Completed 11/12/2020 27285 Office/Outpatient Established Mo d MDM 30-39 Min Completed 10/20/2020 50757 [facility] Cre W/I 7 Days Of DC, Comm W/I 2 Dys Completed 09/08/2020 82958 Office/Outpatient Established Mo d MDM 30-39 Min Completed Medical Devices Description No Information Available Encounters Type Date Location Provider Dx Diagnosis Office Visit 02/22/2021 11:40a [facility] Bhavik Celestin D.O. D62 Acute posthemorrhagic anemia D63.8 Anemia in other chronic dise ases classified elsewhere E03.9 Hypothyroidism, unspecified J45.40 Moderate persistent asthma, uncomplicated D51.9 Vitamin B12 deficiency anemi a, unspecified I48.0 Paroxysmal atrial fibrillati on I35.0 Nonrheumatic aortic (valve) stenosis I34.0 Nonrheumatic mitral (valve) insufficiency Office Visit 02/11/2021 1:20p [facility] Amelie ChapaODoris D62 Acute posthemorrhagic anemia D63.8 Anemia in other chronic dise ases classified elsewhere E03.9 Hypothyroidism, unspecified J45.40 Moderate persistent asthma, uncomplicated D51.9 Vitamin B12 deficiency anemi a, unspecified Office Visit 02/04/2021 1:10p [facility] Bhavik Celestin D.O. D62 Acute posthemorrhagic anemia [...] [facility] Amelie DuncanO. S51.011A Laceration without foreign b [...] Personal history of nicotine dependence Z79.899 Other snf (current) dr moffett therapy I34.0 Nonrheumatic mitral [...] D.O. 02/22/2021 I48.0 Paroxysmal atrial fibrillation Armen Celetsin D.O. 02/22/2021 I35.0 Nonrheumatic aortic (valve) sten [...] endence Ivette Celestin D.O. 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 09/08/2020 I34.0 Nonrheumatic mitral (valve) insu fficiency Ivette Celestin D.O. 09/08/2020 D63.8 Anemia in other chronic diseases classified elsewhere Ivette Celestin D.O. 09/08/2020 E87.6 Hypokalemia Ivette ortiz D.O. 09/08/2020 Z96.642 Presence of left artificial hip joint Ivette Celestin D.O. 09/08/2020 I25.10 Atherosclerotic hear t disease of [place] coronary artery without angina pectoris Anish Duncan.O. Plan of Treatment Future Appointment(s):* 03/02/2021 11:30 am - Ivette Celestin D.O. at [facility] Functional Status Description No Information Available Mental Status Description No Information Available Referrals Description No Information Available
--- OUTSIDE RECORDS SUMMARY | 2021-03-04 06:19 | CCD ---
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 Name Role Phone LUANN, Trevor CHAVARRIA Unavailable [...] (TENA), Brianne GONZALES MD Unavailable Unavailab le CYNTIHA (TENA), Brianne GONZALES MD Unavailable Unavailab le [...] Unavailable Rechlin, P Deangelo DO Unavailable Unavailable Greenwood, V GUILLERMO PA-C Unavailable Unavailable Greenwood, V GUILLERMO PA-C Unavailable Unavailable Maris, V GUILLERMO PA-C Unavailable Unavailable Maris, V GUILLERMO PA-C Unavailable Unavailable Maris, V GUILLERMO PA-C Unavailable Unavailable Greenwood, V GUILLERMO PA-C Unavailable Unavailable Greenwood, V GUILLERMO PA-C Unavailable Unavailable Maris, V GUILLERMO PA-C Unavailable Unavailable Greenwood, V GUILLERMO PA-C Unavailable Unavailable Greenwood, V GUILLERMO PA-C Unavailable Unavailable Greenwood, V GUILLERMO PA-C Unavailable Unavailable Greenwood, V GUILLERMO PA-C Unavailable Unavailable Maris, V GUILLERMO PA-C Unavailable Unavailable Greenwood, V GUILLERMO PA-C Unavailable Unavailable Rechlin, P [...] is protected by Article 27-F of the [facility] Public Health law. If you continue you may have access to information: Regarding HIV / AIDS; Provided by facilities licensed or operated by the [facility] Office of Mental Health; or Provided by the [facility] Office for People With Developmental Disabilities. If such information is present, then the following [facility] mandated warning applies: This information has [...] law may result in a fine or shelter sentence or both. A general authorization for the release of medical or other information is NOT sufficient authorization for further disc losure. Family History Family Member Name Family Member Gender Family Member Status Date o f Status Description Data Source(s) Unknown Unknown Problem MEDENT ([facility], ) Unknown Female Problem MEDENT ([facility]) Unknown Female Encounters Encounter Providers Location Date Indications Data Source(s ) Outpatient Attender: GLADIS CORONADO [facility] 03/02/2021 11:30:00 AM EDT MEDENT ([facility]) Outpatient Attender: GLADIS CORONADO [facility] 02/22/2021 11:40:00 AM EDT MEDENT ([facility]) Outpatient Attender: GLADIS [facility] 02/11/2021 01:20:00 PM EDT MEDENT ([facility]) [facility]: [facility] 01:10:00 PM EDT MEDENT ([facility]) Outpatient Attender: GUILLERMO CORDOVA-SJPDorisAUDREY 08/2020 12:00:00 AM EDT Outpatient Attender: GLADIS CORONADO [facility] 01/28/2021 02:40:00 PM EDT MEDENT ([facility]) Outpatient Attender: Taylor Barragan MDAdmitter: Taylor whitfield MD [email or web address] 01/26/2021 06:49:00 AM EDT - 01/26/2021 02:20:00 PM EDT Patient discharged. Outpatient Attender: GUILLERMO CORDOVA-SJPDorisAUDREY 07:05:17 AM EDT - 01/18/2021 08:02:58 AM EDT Outpatient Attender: GUILLERMO RODRIGUEZCReferrer: CARMITA CORDOVA-SJPDorisAUDREY 12/21/2020 12:00:00 AM EDT - 12/21/2020 10:11:56 AM EDT Outpatient Referrer: GUILLERMO CORDOVA-SJPDorisAUDREY 12:00:00 AM EDT Outpatient Attender: GLADIS CORONADO DO [facility] 12/02/2020 09:40:00 AM EDT MEDENT ([facility]) Outpatient Attender: Deangelo Valle/Kim/Neil/Laith ndl 11/30/2020 09:00:00 AM EDT MEDENT ([facility] ) Attender: CHRISTIAN FLORES) MDReferrer: D avid [...] [facility] Outpatient Attender: Mauri CHAVARRIA [facility] 11/12/2020 10:00:00 AM EDT MEDENT ([facility]) ([id number]) For Template [facility] [address] [place] [phone] 10/27/2020 12:00:00 AM EDT eCW1 ([facility]) Outpatient Attender: Mauri CHAVARRIA [facility] 10/20/2020 01:40:00 PM EDT MEDENT (Family Medicine [facility]) Outpatient [address] [facility] [id number] 10/20/2020 12:00:00 AM EDT eCW1 ([facility]) Outpatient [address] [facility] [id number] 10/13/2020 12:00:00 AM EDT eCW1 ([facility]) ([id number]) For Template [facility] [address] [place] [phone] 10/06/2020 12:00:00 AM EDT eCW1 ([facility]) Office Visit, Est Pt., Level 3 PC [address] [place] [address] 10/05/2020 12:00:00 AM EDT eCW1 ([facility]) Outpatient [address] [facility] [id number] 09/29/2020 12:00:00 AM EDT eCW1 ([facility]) ([id number]) For Template [facility] [address] [place] [phone] 09/22/2020 12:00:00 AM EDT eCW1 ([facility]) ([id number]) For Template [facility] [address] [place] [phone] 09/15/2020 12:00:00 AM EDT eCW1 ([facility]) Outpatient Attender: GLADIS CORONADO DO Family [facility] 09/08/2020 10:00:00 AM EDT MEDENT ([facility] Medicine [facility]) Outpatient [address] [facility] [id number] 09/07/2020 12:00:00 AM EDT eCW1 ([facility]) Unknown [address] [place] [phone] 09/02/2020 12:00:00 AM EDT eCW1 ([facility]) (WND [id number]) New Patient 120 Min [address] [place] [address] 08/25/2020 12:00:00 AM EDT eCW1 ([facility]) Outpatient Attender: GLADIS CORONADO [facility] 08/18/2020 01:40:00 PM EDT MEDENT ([facility]) Unknown [address] [facility] [id number] 08/17/2020 12:00:00 AM EDT eCW1 ([facility]) Outpatient Attender: ELVIN steinberg 08/16/2020 09:05:00 AM EDT MEDENT [facility] Outpatient Attender: GUILLERMO SANDRA.MICAELA 10:29:41 AM EST - 06/25/2020 11:53:51 AM EST [facility] Outpatient [address] [facility] [id number] 06/22/2020 12:00:00 AM EST eCW1 ([facility]) Outpatient Attender: GLADIS CORONADO [facility] 06/11/2020 09:30:00 AM EST MEDENT ([facility]) Outpatient [address] [facility] [id number] 06/09/2020 12:00:00 AM EST eCW1 ([facility]) Outpatient [address] [facility] [id number] 05/14/2020 12:00:00 AM EST eCW1 ([facility]) Outpatient Attender: GLADIS CORONADO [facility] 05/11/2020 10:20:00 AM EST MED[facility] ([facility]) (MMS 1) [facility] [address] [facility] [place] [address] 05/07/2020 12:00:00 AM EST [facility] Outpatient Attender: GUILLERMO HYMANSJPDorisAUDREY 06/2019 12:00:00 AM EST Outpatient Attender: GLADIS CORONADO [facility] 03/30/2020 09:00:00 AM EST MEDENT ([facility]) Outpatient Attender: GUILLERMO CORDOVA-SJPDorisAUDREY 12:00:00 AM EST - 03/30/2020 12:09:50 PM EST Unknown [address] [facility] [place] [address] 03/30/2020 12:00:00 AM EST eCW1 ([facility]) Outpatient Attender: GUILLERMO CORDOVA-SJPDorisAUDREY 12:00:00 AM EST - 03/25/2020 04:51:02 PM EST Outpatient Attender: GLADIS CORONADO [facility] 03/19/2020 01:30:00 PM EST MEDENT ([facility]) Unknown [address] [facility] [place] [address] 03/05/2020 12:00:00 AM EST [facility]CW1 ([facility] Unknown [address] [facility] [place] [address] 03/03/2020 12:00:00 AM EST [facility]CW1 [facility] Outpatient [address] [facility] [place] [id number] 02/26/2020 12:00:00 AM EDT eCW1 ([facility] Unknown [address] [facility] [place] [address] 02/26/2020 12:00:00 AM EDT [facility]CW1 [facility] Outpatient Attender: GLADIS CORONADO [facility] 02/17/2020 03:00:00 PM EDT MEDENT ([facility]) Immunizations Vaccine Date Status Description Data Source(s) COVID-19 VACC, MRNA(PFIZER)/PF 01/28/2021 12:00:00 AM EDT completed [facility] COVID-19 VACCINE Pfizer 01/28/2021 12:00:00 AM EDT completed [facility] Vaccine Series Complete: YESThis Data wa s Submitted to [facility] Via [facility]. COVID-19 VACCINE Pfizer 06/15/2020 12:00:00 AM EST completed [facility] Vaccine Series Complete: YESThis Data wa s Submitted to [facility] Via [employer]. COVID-19 VACCINE Pfizer 05/25/2020 12:00:00 AM EST completed [facility] Vaccine Series Complete: NOThis Data was Submitted to [facility] Via [employer]. Medications Medication Brand Name Start Date Product Form Dose Route Admi nistrative Instructions Pharmacy Instructions Status Indications Reaction Description Data Source(s) 1 billion cell 02/28/2021 12:00:00 AM EDT capsule 36 TAKE ONE CAPSULE BY MOUTH FOUR TIMES A DAY WITH MEALS AND AT BEDTIME TAKE ONE CAPSULE BY MOUTH FOUR TIMES A DAY WITH MEALS AND AT BEDTIME SOLD: 02/28/2021 [facility] Amoxicillin 875 MG / Clavulanate 125 MG Oral Tablet 87 5-125 mg AMOXICILLIN/POTASSIUM CLAV 02/28/2021 12:00:00 AM EDT tablet 18 TAKE ONE TABLET BY MOUTH TWICE A DAY TAKE ONE TABLET BY MOUTH TWICE A DAY SOLD: 02/28/2021 [facility] 5 mg 02/28/2021 12:00:00 AM EDT tablet 60 TAKE ONE TABLET BY MOUTH TWICE A DAY NEEDED FOR BLOOD PRESSURE OVER 150 TAKE ONE TABLET BY MOUTH TWICE A DAY NEEDED FOR BLOOD PRESSURE OVER 150 SOLD: 02/28/2021 [facility] BLOOD PRESSURE TEST KIT-LARGE 02/28/2021 12:00:00 AM EDT kit 1 USE TWO TIMES A DAY NEEDED USE TWO TIMES A DAY NEEDED SOLD: 02/28/2021 [facility] 2 mg 02/12/2021 12:00:00 AM EDT capsule 180 TAKE 1-2 CAPSULES BY MOUTH ONCE DAILY NEEDED TAKE 1-2 CAPSULES BY MOUTH ONCE DAILY NEEDED SOLD: 02/13/2021 [facility] Sucralfate 1000 MG Oral Tablet Sucralfate 02/11/2021 12:00:00 AM EDT ORAL active MEDENT ([facility]) 1 gram 02/11/2021 12:00:00 AM EDT tablet [...] CAPSULE BY MOUTH EVERY DAY SOLD: 02/04/2021 [facility] 100 mg/mL 02/04/2021 12:00:00 AM EDT suspension 420 TAKE 10ML BY MOUTH FOUR TIMES A DAY BEFORE MEALS NEEDED TAKE 10ML BY MOUTH FOUR TIMES A DAY BEFO RE MEALS NEEDED SOLD: 02/04/2021 [facility] Omeprazole 40 MG Delayed Release Oral Capsule Omeprazole 02/04/2021 12:00:00 AM EDT ORAL active MEDENT ([facility]) Sucralfate 100 MG/ML Oral Suspension Sucralfate 02/04/2021 12:00:00 A M EDT ORAL completed MEDENT ([facility]) 100 mg 02/03/2021 12:00:00 AM EDT tablet 30 TAKE ONE TABLET BY MOUTH EVERY DAY TAKE ONE TABLET BY MOUTH EVERY DAY SOLD: 02/04/2021 [facility] Losartan Potassium 100 MG Oral Tablet losartan (COZAAR ) 100 MG tablet losartan (COZAAR) 100 MG tablet 02/02/2021 12:00:00 AM EDT 100 mg Oral active Take 1 tablet (100 mg total) by mouth daily Levothyroxine Sodium 0.075 MG Oral Tablet Levothyroxine Sodi um 01/28/2021 12:00:00 AM EDT ORAL active M EDENT ([facility]) Furosemide 40 MG Oral Tablet furosemide (LASIX) 40 MG tablet furosemide (LASIX) 40 MG tablet 01/28/2021 12:00:00 AM EDT 40 mg active 40 mg daily 40 mg 01/28/2021 12:00:00 AM EDT tablet 180 TAKE TWO TABLETS BY MOUTH EVERY DAY TAKE TWO TABLETS BY MOUTH EVERY DAY SOLD: 01/28/2021 [facility] rivaroxaban 20 MG Oral Tablet rivaroxaban (Xarelto) 20 MG TABS rivaroxaban (Xarelto) 20 MG TABS 01/27/2021 12:00:00 AM EDT 20 mg Oral active Take 1 tablet (20 mg total) by mouth daily normal saline flush 0.9 % injection 3 mL [id number] 01/26/2021 03:00:00 PM EDT 3 mL Intravenous active 3 mL , Intravenous, PROTOCOL, First dose on Mon01/26/21 at 1500, Pre-op
flush per protocol, D/C Main IV fluid if appropriate
Medication administered onsite normal saline flush 0.9 % injection 3 mL 43610-656-45 01/26/2021 02:00:00 PM EDT 3 mL Intravenous active 3 mL , Intravenous, Every 8 hours (scheduled), First dose on Mon01/26/21 at 1400, Pre-op
Rapid push positive pressure flushing shall be performed with a 10 cc normal saline syringe to check the PATENCY of a PIV site prior to any infusion therapy initiation unless resistance is met.
Medication administered onsite normal saline flush 0.9 % injection 3 mL [id number] 01/26/2021 02:00:00 PM EDT 3 mL Intravenous active 3 mL , Intravenous, Every 8 hours (scheduled), First dose on Mon01/26/21 at 1400, Pre-op
Rapid push positive pressure flushing shall be performed with a 10 cc normal saline syringe to check the PATENCY of a PIV site prior to any infusion therapy initiation unless resistance is met.
Medication administered onsite sodium chloride 0.9% (NS) infusion 0300-3978-56 01/26/2021 01:00:00 PM EDT 100 mL/h Intravenous active at 100 m L/hr, 100 mL/hr, Intravenous, Continuous, Starting on Mon01/26/21 at 1300, Pre-op
Start two hours prior to scheduled start time
Medication administered onsite Nitroglycerin 0.4 MG Sublingual Tablet n itroglycerin (NITROSTAT) SL tablet 0.4 mg nitroglycerin (NITROSTAT) SL tablet 0.4 mg 01/26/2021 12:04:00 P M EDT 0.4 mg Sublingual active 0.4 mg, S ublingual, Every 5 min PRN, chest pain, Starting on Mon01/26/21 at 1204, Post-op
May administer every 5 minutes for 3 doses and call cardio lab MD.
Medication administered onsite Acetaminophen 325 MG Oral Tablet acetaminophen (TYLENO L) 325 MG tablet 650 mg acetaminophen (TYLENOL) 325 MG tablet 650 mg 01/26/2021 12:04:00 PM EDT 650 mg Oral active 650 mg, Or al, Every 4 hours PRN, headaches, and non cardiac pain, Starting on Mon01/26/21 at 1204, Post-op
"Maximum dose of acetaminophen is 4,000 mg from all sources in 24 hours."
Medication administered onsite ondansetron (ZOFRAN) injection 4 mg [id number] 01/26/2021 12:00:0 0 PM EDT 4 mg Intravenous completed 4 mg, In travenous, Once, On Mon01/26/21 at 1200, For 1 dose Medication administered onsite iopamidol (ISOVUE-370) 76 % [id number] 01/26/2021 10:47:22 AM EDT active As needed, Starting on Mon01/26/21 at 1047, Intra-Proc edure Medication administered onsite lidocaine 1 % injection [id number] 01/26/2021 10:29:38 AM EDT active As needed, Starting on Mon at 1029, Intra-Procedure Medication administered onsite fentaNYL Citrate (PF) (SUBLIMAZE) injection [id number] 01/26/2021 10:29:05 AM EDT active As neede d, Starting on Mon01/26/21 at 1029, Intra-Procedure Medication administered onsite 2 ML Midazolam 1 MG/ML Injection midazolam (VERSED) in jection midazolam (VERSED) injection 01/26/2021 10:28:57 AM EDT active As needed, Starting on Mon01/26/21 at 1028, Intra-Procedure Medication administered onsite clopidogrel 75 MG Oral Tablet clopidogrel (PLAVIX) 75 MG tablet clopidogrel (PLAVIX) 75 MG tablet 01/18/2021 12:00:00 AM EDT 75 mg Oral aborted Take 1 tablet (75 mg total) by mouth See Admin Instructions Please take four 75mg tabs of Plavix (300mg total) the night before the procedure. 75 mg 01/18/2021 12:00:00 AM EDT tablet 4 TAKE 4 TABLETS BY MOUTH THE NIGHT BEFORE PROCEDURE TAKE 4 TABLETS BY MOUTH THE NIGHT BEFORE PROCEDURE MICK [facility] Labetalol hydrochloride 100 MG Oral Tablet labetalol ( NORMODYNE) 100 MG tablet labetalol (NORMODYNE) 100 MG tablet 01/13/2021 12:00:00 AM EDT active TAKE ONE TABLET BY MOUTH TWICE A DAY Labetalol hydrochloride 100 MG Oral Tablet LABETALOL [...] by mouth 2 (two) times a day 240 mcg/0.7 mL 12/29/2020 12:00:00 AM EDT syringe 0 INJECT DIRECTED INJECT DIRECTED SOLD: 12/29/2020 [facility] 20 mg 12/22/2020 12:00:00 AM EDT tablet 90 TAKE ONE TABLET BY MOUTH EVERY DAY TAKE ONE TABLET BY MOUTH EVERY DAY SOLD: 12/29/2020 [facility] Amylases 69905 UNT / Endopeptidases 6300 0 UNT / Lipase 16622 UNT Delayed Release Oral Capsule [Zenpep] Zenpep 49220-39920 units CPEP capsule Zenpep 88992-66757 units CPEP capsule 12/17/2020 12:00:00 AM EDT active TAKE THREE CAPSULES BY MOUTH THREE TIMES A DAY WITH MEALS AND 1 WITH SNACKS Digestive Enzymes (LIPASE CONCENTRATE-HP PO) drug or medicat ion 12/16/2020 12:00:00 AM EDT aborted 1,250 mcg (50,000 unit) 11/04/2020 12:00:00 AM [...] A DAY FOR 10 DAYS SOLD: 09/09/2020 [facility] 20,000-63,000- 84,000 unit 08/29/2020 12:00:00 [...] 08/18/2020 12:00:00 AM EDT ORAL completed MEDENT ([facility]) silver sulfadiazine 10 MG/ML Topical Cream [SSD] SILVER SULF ADIAZINE 08/16/2020 12:00:00 AM EDT cream 50 APPLY TO LEFT LOWER LEG D AILY FOR 10 - 14 DAYS APPLY TO LEFT LOWER LEG DAILY FOR 10 - 14 DAYS SOLD: 08/17/2020 [facility] silver sulfadiazine 10 MG/ML Topical Cream [Silvadene] Saeed dene 08/16/2020 12:00:00 AM EDT active M EDENT ([facility]) 10 mg 07/29/2020 12:00:00 AM [...] 07/29/2020 12:00:00 AM EDT ORAL completed MEDENT ([facility], ) Ciprofloxacin 250 MG Oral Tablet Ciprofloxacin HCL 07/29/2020 12:00 :00 AM EDT ORAL completed MEDENT ([facility], ) Furosemide 20 MG Oral Tablet furosemide (LASIX) 20 MG tablet furosemide (LASIX) 20 MG tablet 06/25/2020 12:00:00 AM EST 20 mg Oral activ e Take 1 tablet (20 mg total) by mouth daily as needed Labetalol hydrochloride 100 MG Oral Tablet labetalol ( NORMODYNE) 100 MG tablet labetalol (NORMODYNE) 100 MG tablet 06/25/2020 12:00:00 AM EST 100 mg Oral active Take 1 tablet (100 mg total) by mouth 2 (two) times a day Labetalol hydrochloride 100 MG Oral Tablet LABETALOL HCL 06/25/2020 12:00:00 AM EST tablet 90 TAKE ONE TABLET BY MOUTH TWI CE A DAY TAKE ONE TABLET BY MOUTH TWICE A DAY SOLD: 11/12/2020 [facility] 20 mg 06/25/2020 12:00:00 AM EST tablet 90 TAKE ONE TABLET BY MOUTH EVERY DAY NEEDED TAKE ONE TABLET BY MOUTH EVERY DAY NEEDED SOLD: 06/25/2020 [facility] Labetalol hydrochloride 100 MG Oral Tablet LABETALOL HCL 06/25/2020 12:00:00 AM EST tablet 90 TAKE ONE TABLET BY MOUTH TWI CE A DAY TAKE ONE TABLET BY MOUTH TWICE A DAY SOLD: 06/25/2020 [facility] 20,000-63,000- 84,000 unit 06/24/2020 12:00:00 A M EST capsule,delayed release(DR/EC) 810 TAKE THREE CAPSULES BY MOUTH THREE TIMES A DAY WITH MEALS AND 1 WITH SNACKS TAKE THREE CAPSULES BY MOUTH THREE TIMES A DAY WITH MEALS AND 1 WITH SNACKS SOLD: 06/25/2020 [facility] 20,000-63,000- 84,000 unit 06/24/2020 12:00:00 A M EST capsule,delayed release(DR/EC) 810 TAKE THREE CAPSULES BY MOUTH THREE TIMES A DAY WITH MEALS AND 1 WITH SNACKS TAKE THREE CAPSULES BY MOUTH THREE TIMES A DAY WITH MEALS AND 1 WITH SNACKS SOLD: 12/18/2020 [facility] Covid-19 vaccine, Unspecified 06/15/2020 12:00:00 AM EST [facility] Medication administered onsite 1,000 mcg/mL 06/10/2020 12:00:00 AM EST solution 3 INJECT 1ML ONCE A MONTH INJECT 1ML ONCE A MONTH SOLD: 09/09/2020 [facility] 1,000 mcg/mL 06/10/2020 12:00:00 AM [...] 06/05/2020 12:00:00 AM EST ORAL active MEDENT ([facility]) 10 mg 05/28/2020 12:00:00 AM EST [...] Unspecified 05/25/2020 12:00:00 AM EST completed MEDENT ([facility], ) Medication administered onsite rivaroxaban 20 MG Oral Tablet [Xarelto] Xarelto 05/11/2020 12:00:0 0 AM EST ORAL active MEDENT ([facility]) 160-4.5 mcg/actuation 04/29/2020 12:00:00 AM EST HFA aerosol inhaler 30 INHALE TWO PUFFS BY MOUTH TWICE A DAY NEEDED INHALE TWO PUFFS BY MOUTH TWICE A DAY NEEDED SOLD: 09/17/2020 [facility] 160-4.5 mcg/actuation 04/29/2020 12:00:00 AM EST HFA aerosol inhaler 30 INHALE TWO PUFFS BY MOUTH TWICE A DAY NEEDED INHALE TWO PUFFS BY MOUTH TWICE A DAY NEEDED SOLD: 05/02/2020 [facility] 10 mg 04/16/2020 12:00:00 AM EST tablet 30 TAKE ONE TABLET BY MOUTH AT BEDTIME TAKE ONE TABLET BY MOUTH AT BEDTIME SOLD: 04/19/2020 [facility] 50 mg 04/10/2020 12:00:00 AM EST tablet 60 TAKE ONE TABLET BY MOUTH TWICE A DAY TAKE ONE TABLET BY MOUTH TWICE A DAY SOLD: 04/11/2020 [facility] 25 mg 04/05/2020 12:00:00 AM EST tablet 30 TAKE TWO TABLETS BY MOUTH EVERY DAY TAKE TWO TABLETS BY MOUTH EVERY DAY SOLD: 04/07/2020 [facility] 20 mg 04/03/2020 12:00:00 AM EST tablet 30 TAKE ONE TABLET BY MOUTH EVERY DAY NEEDED TAKE ONE TABLET BY MOUTH EVERY DAY NEEDED SOLD: 04/07/2020 [facility] Labetalol hydrochloride 100 MG Oral Tablet labetalol ( NORMODYNE) 100 MG tablet labetalol (NORMODYNE) 100 MG tablet 04/02/2020 12:00:00 AM EST 50 mg Oral active Take 0.5 tablets (50 mg total) b y mouth 2 (two) times a day Furosemide 20 MG Oral Tablet furosemide (LASIX) 20 MG tablet furosemide (LASIX) 20 MG tablet 04/02/2020 12:00:00 AM EST 20 mg Oral activ e Take 1 tablet (20 mg total) by mouth as needed Chlorthalidone 25 MG Oral Tablet chlorthalidone (HYGRO TEN) 25 MG tablet chlorthalidone (HYGROTEN) 25 MG tablet 04/02/2020 12:00:00 AM EST 5 0 mg Oral active Take 2 tablets (50 mg tot al) by mouth daily Amlodipine 10 MG Oral Tablet amLODIPine (NORVASC) 10 M G tablet amLODIPine (NORVASC) 10 MG tablet 04/02/2020 12:00:00 AM EST 10 mg Oral aborted Take 1 tablet (10 mg total) by mouth At bedtime sliding scale Levothyroxine Sodium 0.075 MG Oral Table t levothyroxine (SYNTHROID, LEVOTHROID) 75 MCG tablet levothyroxine (SYNTHROID, LEVOTHROID) 75 MCG tablet 12:00:00 AM EST 75 ug Oral active Take 1 tablet (75 mcg total) by mouth daily Losartan Potassium 50 MG Oral Tablet losartan (COZAAR) 50 MG tablet losartan (COZAAR) 50 MG tablet 04/02/2020 12:00:00 AM EST 50 mg Oral active Take 1 tablet (50 mg total) by mouth daily 10 mg 03/25/2020 12:00:00 AM EST tablet 30 TAKE ONE TABLET BY MOUTH EVERY DAY AT BEDTIME TAKE ONE TABLET BY MOUTH EVERY DAY AT BEDTIME SOLD: 03/25/2020 [facility] 25 mg 03/25/2020 12:00:00 AM EST tablet 30 TAKE TWO TABLETS BY MOUTH EVERY DAY TAKE TWO TABLETS BY MOUTH EVERY DAY SOLD: 03/25/2020 [facility] Chlorthalidone 25 MG Oral Tablet chlorthalidone (HYGRO TEN) 25 MG tablet chlorthalidone (HYGROTEN) 25 MG tablet 03/25/2020 12:00:00 AM EST 5 0 mg Oral aborted Take 50 mg by mouth daily Amlodipine 10 MG Oral Tablet amLODIPine (NORVASC) 10 M G tablet amLODIPine (NORVASC) 10 MG tablet 03/25/2020 12:00:00 AM EST 10 mg Oral aborted Take 10 mg by mouth 75 mcg 03/20/2020 12:00:00 AM EST tablet 90 TAKE ONE TABLET BY MOUTH EVERY DAY IN THE MORNING TAKE ONE TABLET BY MOUTH EVERY DAY IN THE MORNING SOLD : 03/20/2020 [facility] 75 mcg 03/20/2020 12:00:00 AM EST tablet 90 TAKE ONE TABLET BY MOUTH EVERY DAY IN THE MORNING TAKE ONE TABLET BY MOUTH EVERY DAY IN THE MORNING SOLD : 06/19/2020 [facility] 50 mg 03/20/2020 12:00:00 AM EST tablet 90 TAKE ONE TABLET BY MOUTH EVERY DAY TAKE ONE TABLET BY MOUTH EVERY DAY SOLD: 03/20/2020 [facility] 2.5 mg 03/20/2020 12:00:00 AM EST [...] Oral aborted Take 75 mcg by mouth 50 mg 03/20/2020 12:00:00 AM EST tablet 90 TAKE ONE TABLET BY MOUTH EVERY DAY TAKE ONE TABLET BY MOUTH EVERY DAY SOLD: 12/22/2020 [facility] Amlodipine 2.5 MG Oral Tablet amLODIPine (NORVASC) 2.5 MG tablet amLODIPine (NORVASC) 2.5 MG tablet 03/20/2020 12:00:00 AM EST 2.5 mg Oral aborted Take 2.5 mg by mouth Levothyroxine Sodium 0.075 MG Oral Tablet Levothyroxine Sodi um 03/19/2020 12:00:00 AM EST ORAL active M EDENT ([facility]) Mupirocin 0.02 MG/MG Topical Ointment Mupirocin 2 % Mupiroci n 2 % 03/05/2020 12:00:00 AM EST 1.0 {application} active Mupirocin 2 % [facility] Mupirocin 0.02 MG/MG Topical Ointment Mupirocin 2 % Mupiroci n 2 % 03/05/2020 12:00:00 AM EST 1.0 {application} active Mupirocin 2 % [facility] Mupirocin 0.02 MG/MG Topical Ointment Mupirocin 2 % Mupiroci n 2 % 03/05/2020 12:00:00 AM EST 1.0 {application} active Mupirocin 2 % [facility] Mupirocin 0.02 MG/MG Topical Ointment Mupirocin 2 % Mupiroci n 2 % 03/05/2020 12:00:00 AM EST 1.0 {application} active Mupirocin 2 % [facility] Mupirocin 0.02 MG/MG Topical Ointment Mupirocin 2 % Mupiroci n 2 % 03/05/2020 12:00:00 AM EST 1.0 {application} active Mupirocin 2 % [facility] Mupirocin 0.02 MG/MG Topical Ointment Mupirocin 2 % Mupiroci n 2 % 03/05/2020 12:00:00 AM EST 1.0 {application} active Mupirocin 2 % [facility] Mupirocin 0.02 MG/MG Topical Ointment Mupirocin 2 % Mupiroci n 2 % 03/05/2020 12:00:00 AM EST 1.0 {application} active Mupirocin 2 % [facility] Mupirocin 0.02 MG/MG Topical Ointment Mupirocin 2 % Mupiroci n 2 % 03/05/2020 12:00:00 AM EST 1.0 {application} active Mupirocin 2 % [facility]CW1 [facility] Mupirocin 0.02 MG/MG Topical Ointment Mupirocin 2 % Mupiroci n 2 % 03/05/2020 12:00:00 AM EST 1.0 {application} active Mupirocin 2 % [facility]CW1 [facility] Mupirocin 0.02 MG/MG Topical Ointment Mupirocin 2 % Mupiroci n 2 % 03/05/2020 12:00:00 AM EST 1.0 {application} active Mupirocin 2 % [facility]CW[facility] Mupirocin 0.02 MG/MG Topical Ointment Mupirocin 2 % Mupiroci n 2 % 03/05/2020 12:00:00 AM EST 1.0 {application} active Mupirocin 2 % [facility]CW[facility] Mupirocin 0.02 MG/MG Topical Ointment Mupirocin 2 % Mupiroci n 2 % 03/05/2020 12:00:00 AM EST 1.0 {application} active Mupirocin 2 % [facility]CW[facility] Mupirocin 0.02 MG/MG Topical Ointment mupirocin (BACTR OBAN) 2 % ointment mupirocin (BACTROBAN) 2 % ointment 03/05/2020 12:00:00 AM EST active APPLY 1 APPLICATION THREE TIMES A DAY FO R 14 DAYS Mupirocin 0.02 MG/MG Topical Ointment Mupirocin 2 % Mupiroci n 2 % 03/05/2020 12:00:00 AM EST 1.0 {application} active Mupirocin 2 % [facility] Mupirocin 0.02 MG/MG Topical Ointment Mupirocin 2 % Mupiroci n 2 % 03/05/2020 12:00:00 AM EST 1.0 {application} active Mupirocin 2 % [facility]CW[facility] Mupirocin 0.02 MG/MG Topical Ointment Mupirocin 2 % Mupiroci n 2 % 03/05/2020 12:00:00 AM EST 1.0 {application} active Mupirocin 2 % [facility]CW1 [facility] Mupirocin 0.02 MG/MG Topical Ointment Mupirocin 2 % Mupiroci n 2 % 03/05/2020 12:00:00 AM EST 1.0 {application} active Mupirocin 2 % [facility]CW[facility] Mupirocin 0.02 MG/MG Topical Ointment Mupirocin 2 % Mupiroci n 2 % 03/05/2020 12:00:00 AM EST 1.0 {application} active Mupirocin 2 % [facility]CW[facility] Mupirocin 0.02 MG/MG Topical Ointment Mupirocin 2 % Mupiroci n 2 % 03/05/2020 12:00:00 AM EST 1.0 {application} active Mupirocin 2 % [facility] 2 % 03/05/2020 12:00:00 AM EST ointment 22 APPLY 1 APPLICATION THREE TIMES A DAY FOR 14 DAYS APPLY 1 APPLICATION THREE TIMES A DAY FOR 14 DAYS SOLD : 03/07/2020 [facility] Mupirocin 0.02 MG/MG Topical Ointment Mupirocin 2 % Mupiroci n 2 % 03/05/2020 12:00:00 AM EST 1.0 {application} active Mupirocin 2 % [facility] doxycycline hyclate 100 MG Oral Capsule DOXYCYCLINE HYCLATE 03/03/2020 12:00:00 AM EST capsule 20 TAKE ONE CAPSULE BY MOUTH EV JUDIE 12 HOURS FOR 10 DAYS TAKE ONE CAPSULE BY MOUTH EVERY 12 HOURS FOR 10 DAYS SOLD: 03/03/2020 [facility] doxycycline hyclate 100 MG Oral Capsule Doxycycline Hy clate 100 MG Doxycycline Hyclate 100 MG 03/03/2020 12:00:00 AM EST 1.0 {capsule} suspended Doxycycline Hyclate 100 MG [facility] doxycycline hyclate 100 MG Oral Capsule Doxycycline Hy clate 100 MG Doxycycline Hyclate 100 MG 03/03/2020 12:00:00 AM EST 1.0 {capsule} active Doxycycline Hyclate 100 MG eCW1 [facility] doxycycline hyclate 100 MG Oral Capsule Doxycycline Hy clate 100 MG Doxycycline Hyclate 100 MG 03/03/2020 12:00:00 AM EST 1.0 {capsule} active Doxycycline Hyclate 100 MG [facility]CW1 [facility] doxycycline hyclate 100 MG Oral Capsule Doxycycline Hy clate 100 MG Doxycycline Hyclate 100 MG 03/03/2020 12:00:00 AM EST 1.0 {capsule} active Doxycycline Hyclate 100 MG eCW1 [facility] doxycycline hyclate 100 MG Oral Capsule Doxycycline Hy clate 100 MG Doxycycline Hyclate 100 MG 03/03/2020 12:00:00 AM EST 1.0 {capsule} active Doxycycline Hyclate 100 MG [facility]CW1 [facility]) 50 mcg 02/02/2020 12:00:00 AM EDT tablet 90 TAKE ONE TABLET BY MOUTH EVERY MORNING TAKE ONE TABLET BY MOUTH EVERY MORNING SOLD: 02/02/2020 [facility] 1,250 mcg (50,000 unit) 01/13/2020 [...] A WEEK SOLD: 02/02/2020 [facility] Ergocalciferol 20188 UNT Oral Capsule Vitamin D (Ergocalcife rol) 01/13/2020 12:00:00 AM EDT active M [facility] ([facility]) 1,250 mcg (50,000 unit) 01/13/2020 12:00:00 AM [...] BY MOUTH TWICE A DAY SOLD: 02/25/2020 [facility] rivaroxaban 20 MG Oral Tablet rivaroxaban (XARELTO) 20 MG TABS rivaroxaban (XARELTO) 20 MG TABS 10/06/2019 12:00:00 AM EDT 20 mg Oral aborted Take 1 tablet (20 mg total) by mouth daily 1,000 mcg/mL 08/27/2019 12:00:00 AM EDT solution 3 INJECT 1ML ONCE A MONTH INJECT 1ML ONCE A MONTH SOLD: 03/07/2020 [facility] Levothyroxine Sodium 0.05 MG Oral Tablet levothyroxine (SYNTHROID, LEVOTHROID) 50 MCG tablet levothyroxine (SYNTHROID, LEVOTHROID) 50 MCG tablet 12:00:00 AM EDT 1 {tbl} Oral aborted Take 1 tablet by mouth daily Clobetasol Propionate 0.5 MG/ML Topical Cream 0.05 % CLOBETA MICK PROPIONATE 08/05/2019 12:00:00 AM EDT cream 30 APPLY THIN LAYER TOPICALLY TO AFFECTED AREAS TWO TIMES A DAY NEEDED FOR FLARE UPS APPLY THIN LAYER TOPICALLY TO AFFECTED AREAS TWO TIMES A DAY NEEDED FOR FLARE UPS SOLD: 07/28/2020 [facility] Labetalol hydrochloride 100 MG Oral Tablet labetalol ( NORMODYNE) 100 MG tablet labetalol (NORMODYNE) 100 MG tablet 04/23/2019 12:00:00 AM EST 0.5 {tbl} Oral aborted Take 0.5 tablets by mouth 2 (two) times a day Losartan Potassium 50 MG Oral Tablet losartan (COZAAR) 50 MG tablet losartan (COZAAR) 50 MG tablet 02/22/2019 12:00:00 AM EDT 50 mg Oral aborted Take 50 mg by mouth daily rivaroxaban 20 MG Oral Tablet rivaroxaban (Xarelto) 20 MG TABS rivaroxaban (Xarelto) 20 MG TABS 20 mg Oral aborted Harsh e 20 mg by mouth daily Furosemide 40 MG Oral Tablet furosemide (LASIX) 40 MG tablet furosemide (LASIX) 40 MG tablet 20 mg Oral aborted Take 20 mg by mouth as needed Furosemide 20 MG Oral Tablet furosemide (LASIX) 20 MG tablet furosemide (LASIX) 20 MG tablet 20 mg Oral aborted Take 20 mg by mouth daily as needed Labetalol hydrochloride 100 MG Oral Tablet labetalol ( NORMODYNE) 100 MG tablet labetalol (NORMODYNE) 100 MG tablet 100 mg Oral ab orted Take 100 mg by mouth 2 (two) times a day Losartan Potassium 50 MG Oral Tablet losartan (COZAAR) 50 MG tablet losartan (COZAAR) 50 MG tablet 50 mg Oral aborted Ta ke 50 mg by mouth daily ferrous sulfate 325 MG Oral Tablet ferrous sulfate 325 (65 FE) MG tablet ferrous sulfate 325 (65 FE) MG tablet 325 mg Oral aborted Take 325 mg by mouth Insurance Providers Payer name Policy type / Coverage type Policy ID Covered alliance party ID Covered alliance party's relationship to finney Policy Finney Plan Information [place] [id number] Self 1 [id number] [place] Primary [id number] [id number] Self 1 [id number] Medicare - NGS Medicare Primary [id number] [id number]7.1932.0 Self [id number] MEDICARE [id number] SP [id number] [place] Primary [id number] [id number]6.2405.0 Self 13 [id number] [place] Primary [id number] Self [id number] [place] Primary [id number] 2.16840.1.016906.3.227.99.806.2405.0 Self 13 [id number] Medicare - NGS Medicare Primary [id number] Self [id number] [place] Primary [id number] 2.16840.1.774540.3.227.99.806.2405.0 Self 13 [id number] [place] Primary [id number] Self [id number] [place] Medicare Primary [id number] 2.16.840.1.664459.3.227.99.806.2405.0 Self 13 [id number] [place] Medicare Primary [id number] 2.16840.1.314803.3.227.99.806.2405.0 Self 13 [id number] Medicare - NGS Medicare Primary [id number] 2.16840.1.972438.3.227.99.177.1932.0 Self [id number] [place] Primary [id number] 2.16.840.1.539099.3.227.99.806.2405.0 Self 13 [id number] [place] Medicare Primary [id number] 2.16840.1.378240.3.227.99.806.2405.0 Self 13 [id number] [place] Primary [id number] 2.16.840.1.050360.3.227.99.806.2405.0 Self 13 [id number] [place] Medicare Primary [id number] 2.16840.1.775749.3.227.99.806.2405.0 Self 13 [id number] [place] Medicare Primary [id number] 2.16840.1.690093.3.227.99.806.2405.0 Self 13 [id number] Medicare - NGS Medicare Primary [id number] 2.16840.1.540381.3.227.99.177.1932.0 Self 13 [id number] [place] Medicare Primary [id number] 2.16840.1.459629.3.227.99.806.2405.0 Self 13 [id number] [place] Medicare Primary [id number] 2.16840.1.635572.3.227.99.806.2405.0 Self 13 [id number] [place] Primary [id number] 2.16840.1.011905.3.227.99.806.2405.0 Self 13 [id number] Medicare Part B [facility] [id number] 0 [id number] [place] Medicare Primary [id number] 2.16840.1.642973.3.227.99.806.2405.0 Self 13 [id number] [place] Medicare Primary [id number] 2.16840.1.592509.3.227.99.806.2405.0 Self 13 [id number] [place] Medicare Primary [id number] 2.16.840.1.122794.3.227.99.806.2405.0 Self 13 [id number] [place] Medicare Primary [id number] 2.16.840.1.351733.3.227.99.806.2405.0 Self 13 [id number] [place] Medicare Primary [id number] 2.16.840.1.765104.3.227.99.806.2405.0 Self 13 [id number] [place] Primary [id number] 2.16.840.1.022700.3.227.99.806.2405.0 Self 13 [id number] MEDICARE [id number] xxxxxxxxxxx [id number] MEDICARE [id number] [place] [id number] E30 [address] SUE A UNAVAILABLE [id number] UNAVAI LABLE Medicare - [facility] Medicare Primary [id number] Self Medicare Part B [facility] [id number] 0 [id number] [place] Medicare Primary 2.16.840.1.526871.3.227. 99.806.2405.0 Self Medicare [place] Medicare Primary [id number] 2.16.840.1.119916.3.227.99.806.2405.0 Self 13 [id number] Medicare [place] Medicare Primary [id number] 2.16.840.1.067609.3.227.99.806.2405.0 Self 13 [id number] Medicare [place] Medicare Primary [id number] 2.16.840.1.182561.3.227.99.806.2405.0 Self 13 [id number] MEDICARE [id number] SP [id number] MEDICARE [id number] [place] [id number] [id number] [employer] (pr) Medigap Part B [id number] Self [id number] [facility] [id number] 0 84 [id number] [facility] [id number] 0 84 [id number] [address] SUE UNAVAILABLE [id number] UN AVAILABLE [employer] Medigap Part B [id number] Self [facility] Medigap Part B [id number] Self [id number] [facility] 2 [id number] 1 [id number] [facility] [id number] 2.1.519322.3.227.99.991.58598.0 Self [id number] [facility] [id number] xxxxxxxxx [id number] [facility] [id number] [place] [id number] [facility] [id number] [place] [id number] [facility] [id number] SP [id number] [facility] [id number] SP [id number] [facility] Commercial F [id number] SELF [id number] Medicare C [id number] SELF [id number] DME Jurisdiction A [facility] C [id number] SELF [id number] Medicare [place] Medicare Primary [id number] 2..1.646377.3.227.99.991.66267.0 Self 1 [id number] Medicare [place] Medicare Primary [id number] 2..1.417746.3.227.99.991.44362.0 Self 1 [id number] Medicare [place] Medicare Primary [id number] Self [id number] Medicare [place] Medicare Primary [id number] .[id number]6.0 Self 1 [id number] Medicare [place] Medicare Primary [id number] Self [id number] [facility] (in) Medigap Part B [id number] Self [id number] Medicare [place] Medicare Primary [id number] 06.16.830.1.855116.3.227.99.991.01498.0 Self 7 [id number] Medicare [place] Medicare Primary [id number] 2.16.840.1.910152.3.227.99.991.71075.0 Self 1 [id number] Medicare [place] Medicare Primary [id number] 2.16.840.1.069264.3.227.99.991.18794.0 Self 7 [id number] Medicare Part B [facility] [id number] 0 [id number] [facility] [id number] SP [id number] INSURANCE COVID-19 COVID [place] C OVID INSURANCE COVID-19 [id number] xxxxx [phone] [id number] INSURANCE COVID-19 COVID [place] C OVID [facility] [place] PART B C [id number] S [id number] MEDICARE C [id number] S [id number] Medicare [place] Medicare Primary [id number] 2.16.840.1.347313.3.227.99.806.2405.0 Self [id number] Medicare [place] Medicare Primary [id number] 2.16.840.1.774367.3.227.99.806.2405.0 Self [id number] Medicare [place] Medicare Primary [id number] 2.16.840.1.912734.3.227.99.806.2405.0 Self [id number] Medicare [place] Medicare Primary [id number] 2.16.840.1.130190.3.227.99.806.2405.0 Self [id number] Medicare [place] Medicare Primary [id number] Self [id number] [employer] + Claims Medigap Part B [id number] Family Dependent [id number] [employer] [id number] Self [id number] [facility] Part B [id number] Self [id number] Medicare [place] Medicare Primary [id number] Self [id number] [place] PART B C [id number] S [id number] NGS MEDICARE [place] O [id number] S [id number] UNITED HEALTHCARE O [id number] S [id number] MEDICARE C [id number] S [id number] SELF PAY ONLY [id number] SP [id number] United [employer] Commercial [id number] Self [employer] Commercial [id number] Self MEDICARE [id number] SP [id number] UNITED HEALTHCARE [id number] SP [id number] [place] UN MEDICARE -O/P [id number] 18 [id number] MEDICARE [id number] SP [id number] MEDICARE -O/P [id number] 18 [id number] [employer] Commercial [id number] Self Medicare [place] Medicare Primary [id number] Self [employer] (pr) [facility] Part B [id number] Self Medicare [place] Medicare Primary [id number] Self UNITED HEALTHCARE [id number] SP [id number] UNITED HEALTHCARE [id number] SP [id number] SELF PAY 2 UNAVAILABLE 1 UNAVAILA BLE [facility] PPO 2 [id number] 1 [id number] [facility] PPO 2 [id number] 1 [id number] [facility] OPTIONS C [id number] S [id number] Medicare [facility] Medicare Primary [id number] [id number] Self [id number] [employer] Commercial [id number] 2.16.840.1.276383.3.227 .[id number] Self [id number] MEDICARE PI PI Problems, Conditions, and Diagnoses Code Display Name Description Problem Type Effective Dates Data Source(s) I48.91 Unspecified atrial fibrillation Unspecified atri al fibrillation Diagnosis 02/02/2021 07:04:08 AM EDT [facility] R62.7 Adult failure to thrive Adult failure to thrive Diagno sis 01/26/2021 06:49:00 AM EDT I10 Essential (primary) hypertension Essential (primary) h ypertension Diagnosis 01/26/2021 06:49:00 AM EDT I34.0 Nonrheumatic mitral (valve) insufficienc y Nonrheumatic mitral (valve) insufficienc Diagnosis 01/26/2021 06:49:00 AM EDT E78.5 Hyperlipidemia, unspecified Hyperlipidemia, unspecifie d Diagnosis 01/26/2021 06:49:00 AM EDT I25.10 Atherosclerotic heart diseas e of [place] coronary artery without angina pectoris Atherosclerotic heart disease of [place] Diagnosis 01/26/2021 06:49:00 AM EDT I35.0 Nonrheumatic aortic (valve) stenosis Nonrheumati c aortic (valve) stenosis Diagnosis 01/26/2021 06:49:00 AM EDT [facility] 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 Acute on chronic combined systolic (aracelis Diagnosis 01/26/2021 06:49:00 AM EDT R60.9 Edema, unspecified Edema, unspecified Diagnosis 10:29:41 AM EST 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 Acute on chronic combined systolic (aracelis estive) and diastolic (congestive) heart failure [id number] 01/21/2021 12:00:00 AM EDT I34.0 Nonrheumatic mitral valve regurgitation Nonrheumatic mitral valve regurgitation [id number] 01/18/2021 12:00:00 AM EDT J45.40 Uncomplicated moderate persistent asthma Uncomplicated moderate persistent asthma Problem 11/30/2020 12:00:00 AM EDT [facility] ([facility], ) R05 Cough Cough Problem 11/30/2020 12:00:00 AM ED T [facility] ([facility], ) T14.8XXA 993195962 Bruising Problem 10/05/2020 12:00:00 AM ED T [facility] L57.0 383066733 Actinic keratosis Problem 10/05/2020 12:00:0 0 AM EDT eCW1 [facility]) L81.4 692122658 Lentigines Problem 10/05/2020 12:00:00 AM ED T eCW1 [facility]) L82.1 299321142 Seborrheic keratoses Problem 10/05/2020 12:0 0:00 AM EDT eCW1 [facility]) S81.802A 258739730 Wound of left lower extremity, initial en counter Problem 10/05/2020 12:00:00 AM EDT eCW1 [facility]) L70.0 977687223 [place] Problem 10/05/2020 12:00:00 AM ED T eCW1 ([facility]) D22.5 96407943 Nevus of back Problem 10/05/2020 12:00:00 AM EDT eCW1 ([facility]) L72.0 791069860 [place] Problem 10/05/2020 12:00:00 AM ED T eCW1 [facility]) T14.8XXA 194162142 Open wound Problem 08/25/2020 12:00:00 AM ED T eCW1 [facility]) S80.12XA [id number] Hematoma of left lower leg Problem 08/25/2020 12:00:00 AM EDT eCW1 [facility]) S81.812A 739507932 Noninfected skin tear of left leg Problem 08/25/2020 12:00:00 AM EDT eCW1 [facility]) L97.821 [id number] Non-pressure chronic ulcer of other part of left lower leg limited to breakdown of skin Problem 08/25/2020 12:00:00 AM EDT eCW1 [facility]) L97.822 67210294 Non-pressure chronic ulcer of other part of left lower leg with fat layer exposed Problem 08/25/2020 12:00:00 AM EDT eCW1 ([facility]) C44.629 270949170 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 Problem 06/09/2020 12:00:00 AM EST eCW1 [facility]) C44.722 281514161 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 06/09/2020 12:00:00 AM EST eCW1 [facility]) C44.329 908874554 Squamous cell carcinoma of forehead Probl em 05/07/2020 12:00:00 AM EST eCW1 [facility]) Surgeries/Procedures Procedure Description Date Indications Data Source(s) [facility]patrick Cre W/I 7 Days Of DC, Comm W/I 2 Dys 03/02/2021 12:00:00 [facility]PATIENT VISIT 15 MINUTES 02/22/2021 12:00:00 AM EDT [facility] ([facility]) OFFICE OUTPATIENT VISIT 15 MINUTES 02/11/2021 12:00:00 AM EDT [facility] ([facility]) OFFICE OUTPATIENT VISIT 25 MINUTES 02/04/2021 12:00:00 AM EDT [facility] ([facility]) ECG ROUTINE ECG W/LEAST 12 LDS W/I&R <td>POCT AMB EKG</td><td>Routine</td><td>02/02/2021 8:02 AM EDT</td><td> Atrial fibrillation</td><td> </td> 02/02/2021 08:02:00 AM EDT Atrial fibrillation Atrial fibrillation OFFICE OUTPATIENT VISIT 25 MINUTES 01/28/2021 12:00:00 AM EDT REBE[facility] ([facility]) RADEX SPINE ENTIRE SURVEY STD ANTEROPOST&LAT <td>CARDI AC CATHETERIZATION</td><td>Routine</td><td>01/26/2021 10:50 AM EDT</td><td> Aortic valve stenosis, etiology of cardiac valve disease unspecified Acute on chronic combined sy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 Coronary artery disease involving [place] coronary artery of [place] heart without angina pectoris Hyperlipidemia, unspecified hyperlipidemia type Atrial fibrillation Nonrheumatic mitral valve regurgitation Essential hypertension Failure to thrive in adult</td><td> </td> 01/26/2021 10:50:33 AM EDT Failure to thrive in adultEssential hype rtensionNonrheumatic mitral valve regurgitationAtrial fibrillationHyperlipidemia, unspecified hyperlipidemia type Coronary artery disease involving [place] coronary artery of [place] heart without angina pectorisAcute on chronic combined sy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Aortic valve stenosis, etiology of cardiac valve disease unspecified Failure to thrive in adult Essential hypertension Nonrheumatic mitral valve regurgitation Atrial fibrillation Hyperlipidemia, unspecified hyperlipidem ia type Coronary artery disease involving [place] coronary artery of [place] heart without angina pectoris Acute on chronic combined systolic (aracelis estive) and diastolic (congestive) heart failure Aortic valve stenosis, etiology of cardi ac valve disease unspecified POCT POTASSIUM <td>POCT POTASSIUM</td><td>R outine</td><td>01/26/2021 9:22 AM EDT</td><td></td><td> </td> 01/26/2021 09:22:00 AM EDT ECG ROUTINE ECG W/LEAST 12 LDS TRCG ONLY W/O I&R <td>E CG 12- LEAD</td><td>Routine</td><td>01/26/2021 7:45 AM EDT</td><td></td><td></td> 01/26/2021 07:45:03 AM EDT [facility] POCT AMB EKG <td>POCT AMB EKG</td><td>Vasiliy sultana</td><td>12/21/2020 9:57 AM EDT</td><td> Atrial fibrillation</td><td> </td> 12/21/2020 09:57:00 AM EDT Atrial fibrillation Atrial fibrillation OFFICE OUTPATIENT VISIT 15 MINUTES 12/02/2020 12:00:00 AM [facility] Spirometry 11/30/2020 12:00:00 AM [facility] OFFICE OUTPATIENT VISIT 25 MINUTES 11/30/2020 12:00:00 AM ED[facility] OFFICE OUTPATIENT VISIT 25 MINUTES 11/12/2020 12:00:00 AM EDT [facility] ([facility]) Kirkpatrick Cre W/I 7 Days Of DC, Comm W/I 2 Dys 10/20/2020 12:00:00 AM EDT [facility] ([facility]) FINE NEEDLE ASPIRATION W/O IMAGING GUIDANCE 10/20/2020 12:00:00 AM EDT [facility] FINE NEEDLE ASPIRATION W/O IMAGING GUIDANCE 10/13/2020 12:00:00 AM EDT [facility] ([facility]) BLOOD COUNT COMPLETE AUTO&AUTO DIFRNTL WBC COUNT <td>C BC AND DIFFERENTIAL</td><td>Routine</td><td>10/12/2020</td><td></td><td> </td> 10/12/2020 12:00:00 AM EDT HEPATIC FUNCTION PANEL <td>HEPATIC FUNCTION PANEL</td><td>Routine</td><td>10/11/2020</td><td></td><td> </td> 10/11/2020 12:00:00 AM EDT BASIC METABOLIC PANEL CALCIUM TOTAL <td>BASIC METABOLI C PANEL</td><td>Routine</td><td>10/11/2020</td><td></td><td> </td> 10/11/2020 12:00:00 AM EDT TROPONIN QUANTITATIVE <td>TROPONIN I</td><td>Routine</td><td>10/10/2020</td><td></td><td> </td> 10/10/2020 12:00:00 AM EDT FINE NEEDLE ASPIRATION W/O IMAGING GUIDANCE 10/06/2020 12:00:00 AM EDT [facility] ([facility]) FINE NEEDLE ASPIRATION W/O IMAGING GUIDANCE 09/29/2020 12:00:00 AM EDT [facility] ([facility]) FINE NEEDLE ASPIRATION W/O IMAGING GUIDANCE 09/22/2020 12:00:00 AM EDT [facility] ([facility]) FINE NEEDLE ASPIRATION W/O IMAGING GUIDANCE 09/15/2020 12:00:00 AM EDT eC ([facility]) OFFICE OUTPATIENT VISIT 25 MINUTES 09/08/2020 12:00[facility] [facility] ([facility]) Medication: 4% Lidocaine topical cream (Anecream) 30 gm 09/07/2020 12:00:00 AM EDT eCW1 ([facility]) FINE NEEDLE ASPIRATION W/O IMAGING GUIDANCE 08/25/2020 12:00:00 AM EDT [facility] Medication: 2% Lidocaine intradermal 08/25/2020 12:00: 00 AM EDT [facility]C1 [facility] OFFICE OUTPATIENT VISIT 15 MINUTES 08/18/2020 12:00:00 AM EDT [facility] ECG ROUTINE ECG W/LEAST 12 LDS W/I&R <td>POCT AMB EKG</td><td>Routine</td><td>06/25/2020 11:24 AM EST</td><td> Atrial fibrillation</td><td> </td> 06/25/2020 04:24:00 PM EST Atrial fibrillation Atrial fibrillation Staple Removal 06/22/2020 12:00:00 AM EST [facility] OFFICE OUTPATIENT VISIT 15 MINUTES 06/11/2020 12:00:00 AM EST [facility] ([facility]) Med: Derm Lidocaine with Epinephrine Inj ection 1% with 2 ml sodium bicarbonate Intradermally to marked areas 06/09/2020 12:00:00 AM EST [facility] Suture Removal 05/14/2020 12:00:00 AM EST [facility]) ASTHMA SYMPTOMS EVALUATED 05/07/2020 12:00:00 AM EST [facility]) POCT AMB EKG <td>POCT AMB EKG</td><td>Rou rd</td><td>03/30/2020 7:25 AM EST</td><td> Atrial fibrillation</td><td> </td> 03/30/2020 12:25:00 PM EST Atrial fibrillation Atrial fibrillation Electrocardiogram Complete 03/19/2020 12:00:00 AM EST [facility] ([facility]) Electrocardiogram Complete 02/17/2020 12:00:00 AM EDT [facility] ([facility]) Results ID Date Data Source [id number] 02/27/2021 08:51:00 PM EDT [facility] ([facility]) Name Value Range Interpretation Code Description Data Laura rce(s) Supporting Document(s) Influenza A Amplification Laboratory test result Normal (applies to non- numeric results) [facility] ([facility]) Negative results do not preclude influen za or RSV virus infection and should not be used as the sole basis for treatment or other patient management decisions. Influenza B Amplification Laboratory test result Normal (applies to non- numeric results) [facility] ([facility]) Negative results do not preclude influen za or RSV virus infection and should not be used as the sole basis for treatment or other patient management decisions. RSV Amplification Laboratory test result Normal (applies to non-numeric results) [facility] ([facility]) Negative results do not preclude influen za or RSV virus infection and should not be used as the sole basis for treatment or other patient management decisions. Laboratory test finding (navigational concept) Laboratory test r esult Normal (applies to non-numeric results) [facility] ([facility]) A false negative result may occur if [...] pathogens. DISCLAIMER: Testing was performed using the [employer] SARS-CoV-2 test. This test was developed and its performance characteristics determined by [employer]. This test has not been FDA cleared [...] or revoked sooner. ID Date Data Source [id number] 02/27/2021 08:51:00 PM EDT [facility] Name Value Range Interpretation Code Description Data Laura rce(s) Supporting Document(s) SARS coronavirus 2 RNA [Presence] in Res piratory specimen by JUAN A with probe detection NEGATIVE [facility] This lab was ordered by [facility] a nd reported by [facility]. ID Date Data Source [id number] 02/27/2021 08:49:00 PM EDT [facility] ([facility]) Name Value Range Interpretation Code Description Data Laura rce(s) Supporting Document(s) Magnesium [Mass/volume] in Serum or Plasma 1.9 mg/dL 1.8-2 .4 Normal (applies to non-numeric results) [facility] ([facility]) Lipase [Enzymatic activity/volume] in Serum or Plasma 17 U/L 73-393 Below low normal [facility] Thyrotropin [Units/volume] in Serum or Plasma 4.390 uIU/ML 0. 358-3.740 Above high normal [facility] Thyroxine (T4) free [Mass/volume] in Serum or Plasma 1.05 ng/dL 0.76-1.46 Normal (applies to non-numeric results) [facility] ID Date Data Source [id number] 02/27/2021 08:49:00 PM EDT [facility] ([facility]) Name Value Range Interpretation Code Description Data Laura rce(s) Supporting Document(s) Glucose, Fasting 107 mg/dL 70-100 Above high normal [facility] Blood Urea Nitrogen 13 mg/dL 7-18 Normal (applies to non-nume nemo results) [facility] ([facility]) Glomerular Filtration Rate Laboratory test result Normal (applies to non- numeric results) [facility] ([facility]) <content>Units are mL/min/1.73 m2</content>
<content></content>
<content>Chronic Kidney Disease Staging per NKF:</content>
<content></content>
<content>Stage I & II GFR >=60 Normal to Mildly Decreased</content>
<content>Stage III GFR 30- 59 Moderately Decreased</content>
<content>Stage IV GFR 15-29 Severely Decreased</content>
<content>Stage V GFR <15 Very Little GFR Left</content>
<content>ESRD GFR <15 on RETAIL ASSOCIATE</content>
<content></content> Creatinine For GFR 0.71 mg/dL 0.55-1.30 Normal (applies to non -numeric results) [facility] ([facility]) Chloride Level 110 meq/L 98-107 Above high normal [facility] ([facility]) Potassium Serum 4.1 meq/L 3.5-5.1 Normal (applies to non-numeric results) [facility] ([facility]) Sodium Level 141 meq/L 136-145 Normal (applies to non-numeric res ults) [facility] ([facility]) Calcium Level 8.2 mg/dL 8.8-10.2 Below low normal [facility] ([facility]) Carbon Dioxide Level 26 meq/L 21-32 Normal (applies to non-num evy results) [facility] ([facility]) Anion Gap 5 meq/L 8-16 Below low normal [facility] ( [facility]) ID Date Data Source [id number] 02/27/2021 08:49:00 PM EDT [facility] Name Value Range Interpretation Code Description Data Laura rce(s) Supporting Document(s) Alt/SGPT 22 U/L 12-78 Normal (applies to non-numeric resul ts) [facility] ([facility]) Ast/Sgot 19 U/L 7-37 Normal (applies to non-numeric resul ts) [facility] ([facility]) Bilirubin,Total 0.4 mg/dL 0.2-1.0 Normal (applies to non-numeric results) [facility] ([facility]) Alkaline Phosphatase 117 U/L 45-117 Normal (applies to non-num evy results) [facility] Bilirubin,Direct 0.1 mg/dL 0.0-0.2 Normal (applies to non-numeric results) [facility] ([facility]) Total Protein 6.5 GM/DL 6.4-8.2 Normal (applies to non-numeric re sults) [facility] ([facility]) Albumin/Globulin Ratio 0.8 1.2-2.2 Below low normal [facility] Albumin 2.9 GM/DL 3.2-5.2 Below low normal [facility] ( [facility]) ID Date Data Source [id number] 02/27/2021 08:49:00 PM EDT [facility] ([facility]) Name Value Range Interpretation Code Description Data Laura rce(s) Supporting Document(s) MB/CK Relative Index 3.24 Normal (applies to non-num evy results) [facility] ([facility]) <content>DIAGNOSIS CRITERIA</content>
<content>MMB ng/ml Relative Index (RI)</content>
<content>NON-AMI < or = 5 N/A</content>
<content>FLOWERS ZONE > 5 < or = 4</content>
<content>AMI > 5 > 4</content>
<content></content> CPK Creatine Phosphokinase 71 U/L 26-192 Lina l (applies to non-numeric results) [facility] ([facility]) CK-MB Value Mass 2.3 ng/mL Normal (applies to non-numeric results) [facility] ([facility]) Troponin I Laboratory test result Normal (applies to non-n umeric results) [facility] ([facility]) <content>Troponin I Reference Interval f or Siemens [place] LOCI:</content>
<content></content>
<content>99th Percentile= 0.00-0.045 ng/ml</content>
<content></content>
<content>Risk Stratification:</content>
<content><= 0.10 ng/ml Decreased Risk for Adverse Clinical</content>
<content>Events.</content>
<content>0.10-1.50 ng/ml Increased Risk for Adverse Clinical</content>
<content>Events. Evaluation of additional</content>
<content>criterion and/or repeat testing in 2-6</content>
<content>hours is suggested to rule out myocardial</content>
<content>damage.</content>
<content>>= 1.50 ng/ml Indicative of Myocardial Injury.</content>
<content></content> ID Date Data Source [id number] 02/27/2021 08:48:00 PM EDT [facility] Name Value Range Interpretation Code Description Data Laura rce(s) Supporting Document(s) aPTT in Platelet poor plasma by Coagulation assay 38.9 s 25.9-37.0 Above high normal [facility] ([facility]) ID Date Data Source [id number] 02/27/2021 08:48:00 PM EDT [facility] ([facility]) Name Value Range Interpretation Code Description Data Laura rce(s) Supporting Document(s) Inr 1.34 Normal (applies to non-numeric resul ts) [facility] ([facility]) THERAPUTIC HUMAN INR VALUES INDICATIONS NORMAL RANGES PROPHYLAXIS/TREATMENT OF: VENOUS THROMBOSIS 2.0-3.0 PULMONARY EMBOLISM 2.0-3.0 PREVENTION OF SYSTEMIC EMBOLISM FROM: TISSUE HEART VALVES 2.0-3.0 ACUTE MYOCARDIAL INFARCTION 2.0-3.0 VALVULAR HEART DISEASE 2.0-3.0 ATRIAL FIBRILLATION 2.0-3.0 MECHANICAL VALVES(HIGH RISK) 2.5-3.5 RECURRENT MYOCARDIAL INFARCTION 2.5-3.5 Prothrombin Time 17.0 s 12.7-14.5 Above high normal [facility] ID Date Data Source [id number] 02/27/2021 08:48:00 PM EDT [facility] ([facility]) Name Value Range Interpretation Code Description Data Laura rce(s) Supporting Document(s) Red Blood Count 3.41 10 4.00-5.40 Below low normal [facility] ([facility]) White Blood Count 4.2 10 4.0-10.0 Normal (applies to non-numeri c results) [facility] Hemoglobin 9.3 g/dL 12.0-15.5 Below low normal [facility] ( [facility]) Hematocrit 30.2 % 36.0-47.0 Below low normal [facility] ( [facility]) Mean Corpuscular Volume 88.6 fl 80.0-96.0 Normal ( applies to non-numeric results) [facility] ([facility]) Mean Corpuscular Hemoglobin 27.3 pg 27.0-33.0 Norm al (applies to non-numeric results) [facility] ([facility]) Red Cell Distribution Width 16.3 % 11.5-14.5 Above high normal [facility] ([facility]) Mean Corpuscular HGB Conc 30.8 g/dL 32.0-36.5 Below low normal [facility] ([facility]) Lymph % 25.1 % 24.0-44.0 Normal (applies to non-numeric resul ts) [facility] ([facility]) Platelet Count, Automated 218 10 150-450 Normal (applies to non-numeric results) [facility] ([facility]) Reagan % 5.5 % 2.0-8.0 Normal (applies to non-numeric resul ts) [facility] ([facility]) Neutrophils % 54.2 % 36.0-66.0 Normal (applies to non-numeric re sults) [facility] ([facility]) Immature Granulocyte % 0.2 % 0-3.0 Normal (applies to non-n umeric results) [facility] ([facility]) Baso % 1.7 % 0.0-1.0 Above high normal [facility] ([facility]) Eos % 13.3 % 0.0-3.0 Above high normal [facility] ([facility]) Nucleated Red Blood Cell % 0.0 % 0-0 Normal (applies to n on-numeric results) [facility] ([facility]) Lymph # 1.0 10 1.5-5.0 Below low normal [facility] ( [facility]) Neutrophils # 2.3 10 1.5-8.5 Normal (applies to non-numeric re sults) [facility] ([facility]) Baso # 0.1 10 0.0-0.2 Normal (applies to non-numeric resul ts) [facility] ([facility]) Reagan # 0.2 10 0.0-0.8 Normal (applies to non-numeric resul ts) [facility] ([facility]) Eos # 0.6 10 0.0-0.5 Above high normal [facility] ([facility]) ID Date Data Source [id number] 02/27/2021 09:10:00 AM EDT [facility]) Name Value Range Interpretation Code Description Data Laura rce(s) Supporting Document(s) Coronavirus 2019 Nasopharygeal Laboratory test result [facility] ASSAY INFORMATION: Real Time RT-PCR NOTE: The COVID-19 assay has been cleared by the U.S. Food and Drug Administration under the Emergency Use Authorization (EUA). [facility] are designated as high complexity laboratories by the Clinical Laboratory Improvement Amendments of 1988(CLIA) and are qualified to perform this test. Not Detected ID Date Data Source [id number] 02/18/2021 10:45:00 AM EDT [facility] Name Value Range Interpretation Code Description Data Laura rce(s) Supporting Document(s) SARS-CoV-2 (COVID-19) RNA [Presence] in Respiratory specimen by JUAN A with probe detection Not Detected [facility] This lab was ordered by [facility] and reported by [employer] [facility] [employer] ID Date Data Source [id number] 02/18/2021 10:45:00 AM EDT [facility] ([facility]) Name Value Range Interpretation Code Description Data [facility] rce(s) Supporting Document(s) Coronavirus 2019 Nasopharygeal Laboratory test [facility] ASSAY INFORMATION: Real Time RT-PCR or T MA. Both RT-PCR and TMA are nucleic acid amplification tests (NAAT) which are molecular testing modalities and recommended by the CDC for passenger travel. Testing and International Air Travel, cdc.gov/coronavirus/2019-ncov/travelers/iqvslzg-juj-thieya.html 06/18/2020 NOTE: The COVID-19 assay is under Emergency Use Authorization (EUA) by the U.S. Food and Drug Administration. [facility] are designated as high complexity laboratories by the Clinical Laboratory Improvement Amendments of 1988 (CLIA) and are qualified to perform this test. Not Detected ID Date Data Source [id number] 01/26/2021 10:56:23 AM EDT Name Value Range Interpretation Code Description Data Laura rce(s) Supporting Document(s) &PDF [facility] AFIDAs8vAoBEAgBz65/ZNXgjNHNmg6KaCAxsHGj3ANffQKMsD6VpkBotGFaCEVNnD96WZAChSTXtGOeh waW OwH3gjvVVxzxRIu1Eks1ZswTottfqHDsJvGq5YYmIjTU8hba2RXPOsRD2txh6ONHQ3IH9QzAn2XXTbR5 BxYJQaWKRos2GuWB4GSX9kwSdxFyJ2Gy0+DIjrEHO6zaVzaW1KZJDkJCvg03HBpi/A/D5T6QKcRQkz2s yNRlcpeS8qWHREbR7gUCy2aZhHYWG+qmZtQ2bW3hu5 PNDSqj7CdiLuvJ2nvUtVIwQ//fF5i6GiWTC/u/iLUt63wHH//M5aTJHtm6wQjbKg+TjCubGVA8TMuqct 5ZPV2pa5HelHobya1jIH6FuuH6NQzv+e/lgVe9yp50uIcfox16Ya9zO5TxLbURt4yUQ3oCf1IN7/pbSf g7DYa8uu70oI9TBH5gKvlFpFccu7ngTwitbAB9GqNo n8TQ5/LodBUg6/L4a+52bB2JVssHdFZG/KAaT1C457ZytDgoQA3wruT02T/ufE4mD9vit2j44urRd2R4 93g1K3j++v49Qemx4g32YO9ITIYR5zMIiNTzSoF/P7wmcyXGEnWBr8DxPSZElzJrOFeBadoockev1gPe 4vaI4c1SSw2uvlQYlh42SOgj7M5A/VQ55bw3FZcLsI gfPG3kcAtys8lEwEbtbOfvbuVAe4mN+7F9pISsRCrtxFjLhX7LknXpuNyH2+dRpWUxpdGsQHFxDJ1pH1 bYjDZEuSSiI+nahta4y+m80gijzI8w4QEF5PPWaICmbgq9gQO2Vv3DMIHhNHKp5jkZuQm2juC2HFkMvF Edgar+Cvx8/VeJtTjkuP8stYViNQZYHpABB0ZI8nIeN0 [file] RlOa3RTxQxNNLQKyXsAY0FNQj= ID Date Data Source [id number] 01/26/2021 09:31:24 AM EDT [facility] Name Value Range Interpretation Code Description Data Laura rce(s) Supporting Document(s) POC POTASSIUM 5.2 MMOL/L (3.6-5.2) [facility] PERFORMED BY [facility] CLINICAL STAFF ID Date Data Source [id number] 01/26/2021 08:51:41 AM EDT Name Value Range Interpretation Code Description Data Laura rce(s) Supporting Document(s) EKG [facility] TDTWEw7hZhZXQuCyl2QsCgTlXOBtKB5atsp0O8S1pKZfX3TvcWJvx7vcA8StU3RnQFWfFGBLIG7BxOKm jb2 [file] Pj3Lm625OHKvATLKMuh+NodssBSdjUsjPOQOAVQfONHMIZUZZ5C= ID Date Data Source [id number] 01/22/2021 10:05:00 AM EDT [facility] Name Value Range Interpretation Code Description Data Laura rce(s) Supporting Document(s) SARS-CoV-2 (COVID-19) RNA [Presence] in Respiratory specimen by JUAN A with probe detection Not Detected [facility] This lab was ordered by [facility] and reported by [facility]. ID Date Data Source [id number] 01/22/2021 10:05:00 AM EDT [facility] ([facility]) Name Value Range Interpretation Code Description Data Laura rce(s) Supporting Document(s) Coronavirus 2019 Nasopharygeal Laboratory test result [facility] ([facility]) ASSAY INFORMATION: Real Time RT-PCR NOTE: The COVID-19 assay has been cleared by the U.S. Food and Drug Administration under the Emergency Use Authorization (EUA). [facility] are designated as high complexity laboratories by the Clinical Laboratory Improvement Amendments of 1988(CLIA) and are qualified to perform this test. Not Detected ID Date Data Source [id number] 12/21/2020 11:45:39 AM EDT Name Value Range Interpretation Code Description Data Laura rce(s) Supporting Document(s) &PDF [facility] WRKALv5hItOXSyEt18/RDDelEFDrs9JlLDnqSAm9PSwjGMYcZ7MmxYzxUZvTDWQlN70RSFOjNFZxISbd waW [file] 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/e75C11pmz9LemXy+Lmfh+fLq6/nF8+u66GL/[place]+ [file] DQogICAgICAgICAgICAgICAgICAgICAgICAgICAgIC AgICAgICAgICAgICAgICAgICAgICAgICAgICAgICAgICAgICAgICAgICAgICAgICAgICAgICAgICAgIC AgICAgICAgICAgDQogICAgICAgICAgICAgICAgICAgICAgICAgICAgICAgICAgICAgICAgICAgICAgIC AgICAgICAgICAgICAgICAgICAgICAgICAgICAgICAg ICAgICAgICAgICAgICAgICAgICAgDQogICAgICAgICAgICAgICAgICAgICAgICAgICAgICAgICAgICAg ICAgICAgICAgICAgICAgICAgICAgICAgICAgICAgICAgICAgICAgICAgICAgICAgICAgICAgICAgICAg ICAgDQogICAgICAgICAgICAgICAgICAgICAgICAgIC AgICAgICAgICAgICAgICAgICAgICAgICAgICAgICAgICAgICAgICAgICAgICAgICAgICAgICAgICAgIC AgICAgICAgICAgICAgDQogICAgICAgICAgICAgICAgICAgICAgICAgICAgICAgICAgICAgICAgICAgIC AgICAgICAgICAgICAgICAgICAgICAgICAgICAgICAg ICAgICAgICAgICAgICAgICAgICAgICAgDQogICAgICAgICAgICAgICAgICAgICAgICAgICAgICAgICAg ICAgICAgICAgICAgICAgICAgICAgICAgICAgICAgICAgICAgICAgICAgICAgICAgICAgICAgICAgICAg ICAgICAgDQogICAgICAgICAgICAgICAgICAgICAgIC AgICAgICAgICAgICAgICAgICAgICAgICAgICAgICAgICAgICAgICAgICAgICAgICAgICAgICAgICAgIC AgICAgICAgICAgICAgICAgDQogICAgICAgICAgICAgICAgICAgICAgICAgICAgICAgICAgICAgICAgIC AgICAgICAgICAgICAgICAgICAgICAgICAgICAgICAg ICAgICAgICAgICAgICAgICAgICAgICAgICAgDQogICAgICAgICAgICAgICAgICAgICAgICAgICAgICAg ICAgICAgICAgICAgICAgICAgICAgICAgICAgICAgICAgICAgICAgICAgICAgICAgICAgICAgICAgICAg ICAgICAgICAgDQogICAgICAgICAgICAgICAgICAgIC AgICAgICAgICAgICAgICAgICAgICAgICAgICAgICAgICAgICAgICAgICAgICAgICAgICAgICAgICAgIC SpHPRsFRCtSHKjJLNuJANlDORaAXj4V1ceVEYpTMRnGR9eEMk1Zz7+JNnTUlEuTND8bhIsaQ0KII1xm6 YiJQtmVBRtv0DeGZr0QB8LSBGtRHepIF6WVQumrh8A KDTcOTBerCFQw5elTgWtFIA7DQWuHkuhKI7APIPxK1owvgNnRFEqDPZYEPpxACSCAGavTUHAAT8YVzIm P0LelP40QHHZXq0+CGqcvlMqWtuHQcFgSBOxx4RdWDn5NB9HFUGaLGzrOE4QUDWtdV3jIUmlKM3KKqYx JGBeWIHBNhPuG28mdVVwLAa1C2VqDrQgLCNnMhheJR MgPDwvTmFtZXMgWyBdDQogID4+ID4+GWsaWW3SDXsiqnLpZILtSm1VQTKjOAE8XUZrgOMoDahvFUBIJB mkCT7OzRNfEOJ7nV8lSAxdYLRfXHUtH4fYAtJsfHvqCL13sCrdtrUucFJxWDf+Xg6VQV5ov0YtEPe6nr LuJFmcRWBeMQeaOVMxJKBeRSNgLBE8RNG4LNKODmPf THVdGFZdJRzoHPVkUFVdko9NHJOnAXHlKwUzHdPrDHQbJFPhHOjtAFDcVXR9PsN3VLHcAELtOV9RVyRo SGDoNNTtUGbtLZQaVDAzdu8BVDIbYNYyXhg3XvXsJSBlUQXhAMfyXSFzRSH2QSs8XXFuCAHhUJ9TFyWz DRLdMPl6GXMzYSFbOLHght5ZJTOfDVXtNDD3YNNjDZ UlACMlATadTCAuJAUlGSfbHUExUALtUP5MTtWsRRMoOJUiHhjmWDVnGQJtwm5TUKDlHHXzDIEvSlTmXT QmVKLcJUtpRJDxKCTuKIR2BSDvQKRySG8FCoGcSOIiQQC0XKwpKIIoUSKgjt4CTKOhUGGjKkQ3HoZxQG WsUIPpPIgvJWFfVEOuFMx4BOSsXZMaQY3SKtDzALEj UTRgVuZxFVUwSSRldf3BLPRtMOWkDEQqVOFgPHRePONxSIvsRAIeVHW1UmQ9NRUiZCFkHC7ZNkEtUCPt DPN6SWRvQWBmYFAuem5MDVHfZOJsVTV4AADmGLZjBKBtVBowWPRoSOX1JAS3SDNrPMOjMW9GRuOwWXHr WTS8XPwsOIJbOZMpii3YXLGwPWJlVwX4HMMgFOMbCL AjZZzjBYBpDZO2Lhr8SXIqYORiWZ0JYfBuJMZdQZB3NNSjFAHnIALotd2FZEMuGRCcYsVdWxXtOGCmAB XmGAvvYINmHAG9NzQ8FBXmWXEqRH8RBbIcYSIaJZs1SBAkIHPoIQCnrz9CLJSxHVEvXDArITZmKSTpWO DpSWrgUBUaZKY0KLr9FGVhFZZpKO5YPmOnAVyjCIXC Iuv6CWksL8c2WTWtET5IX9Lqb2OqFrElSIUCFMmnDG5lgeEuGQZzPc0YP9eJGkp5WBf3RURvG0Q3ISAd WTAwAmC8Pjl7ISj2XnwhM4IoRY2fMHvdHTArXrH5LuWaZLRjDADlYIlpZUj3ZiaeWCUzVfJcUoNkRW4L Xo6QXiL0CWK8oGQnGf1UWGb3LuVVNaUpNX6UEFp= ID Date Data Source [id number] 11/30/2020 09:16:00 AM EDT [facility] ([facility]) Name Value Range Interpretation Code Description Data Laura rce(s) Supporting Document(s) PDFReport Laboratory test result [facility] ([facility]) FVC-Pred 1.76 L [facility] ([facility]) FVC-%Pred-Pre 75 L [facility] ([facility]) FVC-Pre 1.32 L [facility] ([facility]) Fev1-Pred 1.28 L [facility] ([facility]) Fev1-Pre 0.90 L [facility] ([facility]) FVC-LLN 1.21 L [facility] ([facility]) Fev1-%Pred-Pre 70 L [facility] ([facility]) Fev1-LLN 0.81 L [facility] ([facility]) Fev6-Pred 1.64 L [facility] ([facility]) Fev6-Pre 1.32 L [facility] ([facility]) Fev6-%Pred-Pre 80 L [facility] ([facility]) Woi9njn-Mvzx 74 % [facility] ([facility]) Fev6-LLN 1.10 L [facility] ([facility]) Qje6ipv-Jgf 68 % [facility] ([facility]) Gzt4mih-VRZ 64 % [facility] ([facility]) Oyq2vso-%Pred-Pre 92 % [facility] ([facility]) Oxt8qbi-Cqt 100 % [facility] ([facility]) Sbj9cmx-Qjwr 93 % [facility] ([facility]) Xev9yid-%Pred-Pre 107 % [facility] ([facility]) FEFMax-Pred 3.68 L/E/sec [facility] ([facility]) FEFMax-Pre 1.60 L/E/sec [facility] ([facility]) FEFMax-LLN 2.32 L/E/sec [facility] ([facility]) FEFMax-%Pred-Pre 43 L/E/sec [facility] ([facility]) Jfi6000-Valu 0.98 L/E/sec [facility] ([facility]) Pnr6653-Jgf 0.56 L/E/sec [facility] ([facility]) ExpTime-Pre 7.99 sec [facility] ([facility]) Fxc8760-%Pred-Pre 57 L/E/sec [facility] ([facility]) Ebo7285-GSW -0.01 L/E/sec [facility] ([facility]) Tnf2aro4-%Pred-Pre 87 % [facility] ([facility]) Zmx2jvz6-Xaaq 77 % [facility] ([facility]) Lub3wbc9-Jzk 68 % [facility] ([facility]) Gnj8jqx5-NWA 69 % [facility] ([facility]) ID Date Data Source [id number] 11/17/2020 08:45:00 AM EDT [facility] Name Value Range Interpretation Code Description Data Laura rce(s) Supporting Document(s) Follow Up [facility] TIKDJo9tSkYHVsEkKIKaOljRZSqzEQvlSXNsM0W3DUviHw3LRPxbkzGhHQWnOo3+WEKhDA2xnb2gUZEc gMy [file] ICT PROJECT MANAGER/6GXN0nauyKpeBFtvVmSHtQMgpE8gMaV6e7SIUsb+bMpbA+oULRIsedOvmcXwrWMBEcnZFLuSkwLKz [file] Fm+Ycqk3uoP+hu9X/A25EEXAobBrSSBotWG0phCdUEn6quj/metallurgical laboratory assistant/rRsdp/XJFeeSbQMhIX6M4qBoOegk 1HQMfEbiY26tAy9Tbc/8rYEvMSFMMiyCEpkA/X/Y0aVvjxdIXevohp0G0hOR1c+MU6VKm4lQ28cPFC09 WuOYi6A+/l2ttNm+zaV2OVBJz1i57Zfq/zKRHNS/2S PfsbmcZ2Lu/ifygfDnYxL3jFM+CZ4fgD/e8J+I7NJjkkImFIIeYD9U+YBBeuO6Nf4GJ11msEEg2nbn3s m/L3vWSPgR51iWvG3f5TSfyOxgnY9uWG4zjcJiVK/vgwUVv6sW+STfI+U4ig4stRwwGSptxtZG0a0+x2 2gyxW44DbaOsrsuxbowOkfmKEyml5jkfz8Dhh90arH z4mDIkfpvDVqlfht6hgPLoFQf7CnYXn+rKZsFv5793nIHTSRLJgwW5ZypFG21a8lMx9ex4Hwjfo++Jese [file] pI0u2dufSb3V8/Tomás+akI2fz8nxEYbKrk7vsRMkqQICSRfNgmZiy6XGjqWSagi6K9cRJcbsHP2y6w36c [file] 5U5JC9KEuw/vc0z0BHvGfMFXNOuYslIkHe2DbBPLO8lWl9nuY/Evp1OQ39wAfcvSjs+Ym7JkL+order planner+tJ [file] nVCol7oH0ssi1dNla0X4KKr+LINE TENDER+hlZFkH+jVP9Voj+RcBcszQrkarqaLEpj0+yNirHJFBegWCf5HwD2+ [file] p366H0r8viaPU5jdu3hGoEkJ40Igfh7WUcTn9V+María [file] N96zOr5445m3p8QzAu75IU2lZ5PW4wx86V7ji30eGe g0OkTvwy/P6AjBzoTzLKxz+rOd8NfWRuIh4poR3ow+BJqdTVUyZjOr+TCbsAWcP+ndbEGzFRaGUgu65S yyM5rniJzj/n8VYP18eMK4Eb8Uc0NU96jjN7mA/ZC0quJd7mN5zfA2N+fTQGq+ZyfgL61S8JgAlVThfz UClVRv0LA+S4Ub06X/8P8Vz8EjZbbzeK4QM25xxzio 6Bs+LI2sKshqdAlRuL1ChRZbIsJJlHmFTXzPf8/fZfNu2maRbUXTSodH2t49+ULpZoZWmIB3GGqijX1j PIR36ZwqTueSmGH22bPA8b/6lmtKVCTZ+IBAZLYm/xDogv+xvtATGzhEWnHqNGS4ApVW7h2wAdIxnZP7 ujHRa+senior analytic consultant+V2GJu14yY5/QqSpGYPws0qY4UMzmnGLH [file] xktrSNXwX/3gpmUk+KRutIYBxU8oaDMUgjnJGyyYKY5Q+qS0EPgUpKdT+gonzález+MClI++FptZdTS1ttPNc [file] PENSION FUND MANAGER+Iah3SNGREZ5lEJqtbvEw1oOJrzr7DOxnYtvBdx [file] xfTRlHf98sb7tkoEvSH3wC75PrHnbVXcqVhcnikKvkIw0NM+dv8iErMz3xzuuyv+Shipping Room Supervisor/fBuJPnq/2DyZ 2zdZPxSj684Ld6NXTxShFcI1tTksWUgRgeEoKEUcxSDJ2hRyzJDFtQXcXUXNiuWWmzJ+YMYO0gmdiiEY oY5SJ1RmPBJ0atFjx9+K/LGTJah+JUuZ5d0z0NFMlT /BpulY38+UiyH7NcdVDoJUvdVfRn8a7/psGEsYBUZjxwlLw2sDJ21/fD7FHVnrOLOC5f3/+z93FhRY1U NSbHDDyqjCGJBIBacCKPwDvWFJj7mFB7wAa/zBy9J+zpQZBn+JB8ergLiCfUdPc/cCeiTJ8mKS64Z2zg FePl21dIFq9+p9lnC6RgjD+d+P+WpkGp/zW7WsC1Je SDvPf7lqhOwqJNAHCPDwuc5o1Ok14lieI9LZDcf1mS4mtx2H0mzgKlv84m5oKYe8XDPpeeg/NLLpJVGT zS8VhZjPdLTrCXBZqZDNYE4rmXD3V+jtUUFB6qRoIYONO2PXwW8rX5HaiYQO5UZJ9JjSbd7QVpViEszX BpT2s2lFnXaq683himLml+tW6yvLjvvK+t3WRgliMK DKCaUETdCWAULNNupAXfSNUq9a7MTm9wCq83ffFuB4oPiaxQ8wejCgxlJgF50AnXpqTkiVjQiXVnHBuK mpGJUpP2N4fftyKKgnY1x979HGa6VGc8EKMiKFibQlQsRjDbM1sLMA0RHFktz/2ee3ibMmpxrKvwhPpP zJQOfTKPIsVqwZK638gTzROPhBtTKRMDOcrTw1Qor4 INXTn3FBeFKMW/joJNw/6Ir5YerzQrgUkITJ3jV/DkYXtfM2EQ8RSwP+vLfKrjos/oqQelLWDUK6BIfK Ricardo/YxN8za2ZgIiNF54oxHg2LpUtGL4Q4K4LFAqHhdzrAC0pVzwgo6i+LUtqm0yVAd/ibN4rfwYvZju9 [file] iBMO0UsPd4g4tqqT/Y7UJmZ4koYwpb3eOuk1cI/locker operator [file] SXuwpCKD0FUr9752ZXF7Hy3uF104Tl3q6e101ni03Q FaKSIXqOZU4cxJ0+0cDKo2ULi463xoQajFdtB/9PSBQ81F/43s5jZKTWyyw561e05S0fzDorrq1rDMtJ 43nWHOBHxBDu03CHgi4k9MAao2UdYqzkZlN8WrD5ryeHdtaK3kW51laRYaL9L+BYUWmLN8zU4vm/4eoJ 2qy/Qe5I7vJnnv7OSqxMpiWE58TH91MpJbLVNjY0QY DLzvEjw7VkRFjRotcogSDfztB8FEVmXFqoWfw0zHrACozKWcA1U/PG1abOtYaWuVBjoD4ofuMpfrFFCx M5bFFotLr6MtTOiDY5SO0TMfeIZR8SVuBS/jbCMn+nFR3WfgMzJEU4p2vnXAGivaEm16uuDT2aReHvAq mAJgV/mptCYOfHFLt0171x5NJgbnKHyZNVCedEUXAd IFFE2cHiOi4+tv0uGvvG/ciX08jb2Mo8a5L+ddNEtFm6T10ZFWd37bgqzD7ErmCDNwBg9vwIGPQCMkzW C0hcWRhFf5eR2bNZ65YiPDn4Eq/jVqOTfzt5O7fVN1nQGGjVWWyYy80nJNeubSrvXpsCRbf4ISu3qrbc CdX0BAQVaxTPVn5S8i7P6D+8UUK7cTRiamMieuaVKa XRHP8VIIOBH9AUZJW2NUnyhZG02NsjL/NDnPtF6UPRs4K+hEbD74EMAi056s2+Reji+hblrHxD78wTgnkC sVP0mgEdl2QTrd8FvS9krKb/gQJkFAbP44hmZiafroqQ/IVPpG1iFHESpkxKOWayXFHaTJ9aiSroDobw h/ggAyXGfFAE7QIM3m6g7EMf1yUz0gEvbUOKxvJT3X Y7q80b6IkKUwgDJAoB0E075JF1GEbgjGZ/pezxt7aqCtu2W8QlwWW2hP/z/8l7CmPF6SJxU1ihSdwKg+ SYYuwKyrtCEnbN9RKexOUcr3UZBwXdRpI5cXeqY/Jl4zm1WxVLA+UnM0duEmh3e3mMfpGYqcHDgEWOMS 07muRrWr0TbEdqjWOaRQ1jd4s/aIZL/SFnSFLTU/w9 vYWWcN9DylDUX0fPMXqa9+QySX4A1X2PuXs45Tfi1XrCCmeEj+uP2jF99z/F8tiFDu6btpqpsntLRITn 8l6BvrT8og8Wic+l0c+IgZEt0TSOVENUi3PzST15MvM/70sqB2J5aYJ229myJ0jb2Q1QLolcKt51cwlB i0Gc4Gl59bv1xJ2ew5q1P6Cl9XAyUEi54PnAq86l5y mcDizNQsQ1tg3YTew5fd55tkerOj9UDTFgcl2MmfR3+Z7E0wTGmIHuq8wwUSt6zOxa1PsxB6blMi2zWp SsvlhO/TkP6HJf6dE4AzzhmimOv4t91LDVVCc+laq97w0AryT444EWqJ+huQ4Mwe8XjzLVvcieFrAtAN Q2ZVrlkFUdOZ7+bi1Ok0Qqd5Dqc27hwYKWNgUP275n ShrKWL9tukK3BRZg1fBJSF8UYCbzhvg9CqTB8hNBcuqSVmmFkjUGqn8xxqnlRLFnvcmpCKTvtjf1Nf4k S4E+zy+aoZa//lmioN/public information director+z87qq+UimsxEoU/6OqlUJKCb0vTjZ44NyKTdGoB0xbNVkQpuwBd9J/AcAJ G8Jjgbc56BeRF1vpMp6LiRxs4XiF9s8XnKdeN7h/Sa 11CksLgfsi2OL6tpU0t3Mei1jXTl/4LE9Sejr9P3IJQS4MmRcBHK2e2EogRT+Qg2XeXspr5IN+sRHGaz JsvH6Jy4b+LroCrmcVcT56vdmYnCcFJx2lneG6uCBMGKad6cTZtU5dIL0gO8MIr5MscbfHpmhzt211a4 KG/ro5t0cKKs6V7Yjk0YGFiDOL1EZOIiJhIw9PjM9W VNfTpzZayya61XvPFu/nfWHKxyYKAAQVBdP5XtLc8moImixfFx0Zmfd3YE2O5t50qigTG7y4viKoqlOy QGluSxlkjmtClfjRMAw5X7ZUCo8zhww0cQmfeKMqtRekBGfmlPKz17X4ShP0WPnxgTePexbsN76HV4Hn dgQ90VvohxA1tZHLvN+I2yiyv6rzd0+r+u+9ifxzes OqQSLzRfYs3+VlFmgBvW3QV/naOCixh4yghGHnT6kPBcHeAf9a6BVqrw1V7Cgsh+PPNMzPgwMbGRv0hb naBNqbbN8u85XGT29smAbCnUsQ9iRD7IfH+UA9UhgKz8e7T6CGb4zqxJw01LY2NL+jrNU20/H3ZsVF96 NT81VZ96HgopX08BpSh6MYdCZT35XWPHS1zhdmBKF2 /G/SqQPeBqqgZ3F5wHfqyfCdyLKcQP1VODly9hIxwuRWv81D1YHmtJPoqywCfJB0ISC5IaVolNtpMYC0 /hrztHgvEe2+6QoqKywRFvzJ4CcKHGpJ97+URdrGntsb7Ky7Q7TfkmkD/tbTT5l4irP8dNeg7KbAy+italian [file] T8x/dWUfTuZislwMkRknQHM8jrvDLXpYSTyLe4v/LINE TENDER aHy+b1dYdb9DlBdzeAgO8qKdlle8tmOMro2o/CT4SYY3R0BHhGt77sp6ARJqiQr/rvGxMkfSvt+LovXs H65NvujghvbFv9DWwOMzztW2/yP2Tu/3oWSoqxBYns8lmGFfHS94b82AQPX+F61UxmH3rscFCifYCEZl OBn6Dg2ukSl03WsTn2IwFVBqmMP6X2qg0A4Hd2TbUm r9botc30sCsR66qyvIRCW1/+n2t58qU03zPIwaJz4R5QGoHLg4ih5tn1ozgxyfF7qwLeUSxfW6vgCP1v 2f/mUrQApzl/aq94hN/hgJAkZLjc6+t65q0wZDhhKSoSuew3aX2IUgGN2YxQxQ1txjN/jBOEoAAAGASP O/DiCqovC+XvPy5Qp4YlwegniWQgYwsWRYnK8Tt+d/ DMbTZzFES+T76pO3Vbbd8IZn3as4Hv5TX2bUhkD5Cx083VW6YPz2/yQU10WxQJ6e6QutxlTlJX0DMuLX DFOzlNr7GmvPferoMqLEYy+lbYPiwZ/QuAuWE/YrSCBw5yRovpH205DRF3Ia8/YQ15uFYtEcQ2s3rVWc H7yU4u2kNE0Ti7hoMb0sZGIwK1kzVeMoPBGLRauqxV +González/CVENkfDtIbPlbvQqPMtPI2evMMZra1L7aK+eB343P6KNTyaJwRLX7Q+/KJ88eiTYypEiGKJChrc [file] 1B0/2y2sw4nUitlm9+EffjEdvGLgaOloUFY+wYUhuIpVe0aYqNcllgFLwSpXR+nursing director+YuaOH2i+56Bk7xX [file] mMk+marketing producer+MoAlCrJMq9AAEtVam61VldVTysnSZcIvIj [file] vG/4y7ZWmpGkhevC4BUmSYkrqNmptlhDZkS2rGflMfNCrndQ/2nC4O/5RWdhvs/ODpdm6NEeuEMO+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 [file] lcKOyzqCdQ1VFYK2ehFYlnIL+MnnEOXmeZMJZwMs/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/jtxN5fc82jkIHf78cG6gvOzXudMYp1HighJp /420J6HgPav7ofbWWQfalzmgc19zRftYEc1mA+0QxjQaiyGqOydOY3Zaj4Eyw1ZvQEW61k0xIxwEcPrY BMA++DTXJ5nUutvuCoj3GydiT/GTGxhSBTe9DkRddY /EvIZCbbn4SuwFC9ynDOHgyAffNF3p5Inz/qlGM7mQXZ0ZAShzEk2EcwuejPhFFB0oj54avt2VQspoDQ JLgOt4lJP+O5bPc8+hYXR7xVKnB19mirShyg/u75kMWb9fU94gXV4oJHl7y/MYor1TzvJwaN6qZbusX0 P2uuunpKQGzmQ71jV4a2E/7v5ielyPqzw1wXmGoPB8 oqzC0FgaJ4BAPg8xpRP75ePUAxZoLiO9AOg5hKVd0DPgKPpa5KxOs033OrJ2Ua3Q5jTLZT163Y856Lnu wfANcTUH000N+mY60UelNQlENB2KkMFgzRrIGH/Ue+yVOSrJNRqXAUTRk6RTSXwa1Meg2g+iYPO7wz0t MwftkSFOV5S3lTJwZklYTrZ5nq1yV852RTjfOTVqvB s9oFvop8AkbpPlzP7M1IlZqEcsa+YU8K0gfes++jQZmcoULZxt/l7LgmX4TPpXWeDcooxybNrEmrrkoP hfy8b0fcU7NVw+f8IsyxC5faHp15R5X1nPMvcI9+h5Alyf+Jmozk9ls7jcRLLAt1uvQEAVftC/xT3wFZ lPeJQxU9XktCldrxdV3NJ8N7oohWJMik5O4x+ahj5D 8rHTxQIFdfyavs00JDbp6zygcm8+P1E0W26X1aFocIFDSBgzB0FMeYoNfb6eqkmflzkUsbvtRlFhYr6Q Vaq85QnHAZsYrrvS9gvYLG7AAomaxVhT26yFMB89FyM93tTE3U/J8xEkbMXfGNM9Bl6Bt6IH4nES7Xi6 uM5fdBOBX6lT+7aLipgzFvPi/+3TgugC7iZNzQdaim jg5IX0Ljyi8Kmozw1X4cD7dsePrOj+2IuMLLlNVPpIGASWw6VPPOw+k8Eve7Dfvvr/JANIA+PPz3OlKBK2 [file] rn acute dialysis/1l1wQf+5hsSFFqPT28Fml6PGC5c3kxTP4icUNcj1SvgJP4BbkLFLKGrW+m9VAhU0nfLdPPc6MDS6 [file] aqo8qE3MnUlVejWPMZnq2ewhWakSifmEQJpTTFgvqhlBmYyHAZUibtqP7a6fgRqwRXdzlOvvAUVh/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 a nd reported by [facility]. ID Date Data Source [id number] 10/09/2020 03:24:00 PM EDT [facility] ([facility]) Name Value Range Interpretation Code Description Data Laura rce(s) Supporting Document(s) CPK Creatine Phosphokinase 98 U/L 26-192 Lina l (applies to non-numeric results) [facility] ([facility]) Troponin I Laboratory test result Normal (applies to non-n umeric results) [facility] ([facility]) <content>Troponin I Reference Interval f or Siemens [place] LOCI:</content>
<content></content>
<content>99th Percentile= 0.00-0.045 ng/ml</content>
<content></content>
<content>Risk Stratification:</content>
<content><= 0.10 ng/ml Decreased Risk for Adverse Clinical</content>
<content>Events.</content>
<content>0.10-1.50 ng/ml Increased Risk for Adverse Clinical</content>
<content>Events. Evaluation of additional</content>
<content>criterion and/or repeat testing in 2-6</content>
<content>hours is suggested to rule out myocardial</content>
<content>damage.</content>
<content>>= 1.50 ng/ml Indicative of Myocardial Injury.</content>
<content></content> CK-MB Value Mass 1.6 ng/mL Normal (applies to non-numeric results) [facility] ([facility]) MB/CK Relative Index 1.63 Normal (applies to non-num evy results) [facility] ([facility]) <content>DIAGNOSIS CRITERIA</content>
<content>MMB ng/ml Relative Index (RI)</content>
<content>NON-AMI < or = 5 N/A</content>
<content>FLOWERS ZONE > 5 < or = 4</content>
<content>AMI > 5 > 4</content>
<content></content> ID Date Data Source [id number] 10/09/2020 03:24:00 PM EDT [facility] ([facility]) Name Value Range Interpretation Code Description Data Laura rce(s) Supporting Document(s) Lipase [Enzymatic activity/volume] in Serum or Plasma 34 U/L 73-393 Below low normal [facility] ([facility]) Amylase [Enzymatic activity/volume] in Serum or Plasma 41 U/L 25-115 Normal (applies to non-numeric results) [facility] ID Date Data Source [id number] 10/09/2020 03:24:00 PM EDT [facility] Name Value Range Interpretation Code Description Data Laura rce(s) Supporting Document(s) Glucose, Fasting 151 mg/dL 70-100 Above high normal [facility] ([facility]) Blood Urea Nitrogen 14 mg/dL 7-18 Normal (applies to non-nume nemo results) [facility] Glomerular Filtration Rate Laboratory test result Normal (applies to non- numeric results) [facility] ([facility]) <content>Units are mL/min/1.73 m2</content>
<content></content>
<content>Chronic Kidney Disease Staging per NKF:</content>
<content></content>
<content>Stage I & II GFR >=60 Normal to Mildly Decreased</content>
<content>Stage III GFR 30-59 Moderately Decreased</content>
<content>Stage IV GFR 15-29 Severely Decreased</content>
<content>Stage V GFR <15 Very Little GFR Left</content>
<content>ESRD GFR <15 on RETAIL ASSOCIATE</content>
<content></content> Creatinine For GFR 0.66 mg/dL 0.55-1.30 Normal (applies to non -numeric results) [facility] ([facility]) Chloride Level 101 meq/L 98-107 Normal (applies to non-numeric r esults) [facility] Potassium Serum 2.9 meq/L 3.5-5.1 Below lower panic limits [facility] Sodium Level 138 meq/L 136-145 Normal (applies to non-numeric res ults) [facility] Anion Gap 3 meq/L 8-16 Below low normal [facility] Calcium Level 8.6 mg/dL 8.8-10.2 Below low normal [facility] ([facility]) Carbon Dioxide Level 34 meq/L 21-32 Above high normal [facility] ([facility]) ID Date Data Source [id number] 10/09/2020 03:24:00 PM EDT [facility] ([facility]) Name Value Range Interpretation Code Description Data Laura rce(s) Supporting Document(s) Alkaline Phosphatase 201 U/L 45-117 Above high normal [facility] ([facility]) Ast/Sgot 247 U/L 7-37 Above high normal [facility] ([facility]) Alt/SGPT 88 U/L 12-78 Above high normal [facility] ([facility]) Bilirubin,Direct 1.0 mg/dL 0.0-0.2 Above high normal [facility] ([facility]) Total Protein 7.8 GM/DL 6.4-8.2 Normal (applies to non-numeric re sults) [facility] ([facility]) Bilirubin,Total 1.5 mg/dL 0.2-1.0 Above high normal [facility] ([facility]) Albumin/Globulin Ratio 0.7 1.2-2.2 Below low normal [facility] ([facility]) Albumin 3.3 GM/DL 3.2-5.2 Normal (applies to non-numeric resul ts) [facility] ([facility]) ID Date Data Source [id number] 10/09/2020 03:15:00 PM EDT [facility] ([facility]) Name Value Range Interpretation Code Description Data Laura rce(s) Supporting Document(s) Color, Urine RFX Laboratory test result Normal ( applies to non-numeric results) [facility] ([facility]) Appearance, Urine RFX Laboratory test result Nor mal (applies to non-numeric results) [facility] ([facility]) Specific [place] Ur Auto RFX 1.009 1.002-1.035 Nor mal (applies to non-numeric results) [facility] ([facility]) PH,Urine RFX 7.0 units 5.0-9.0 Normal (applies to non-numeric res ults) [facility] ([facility]) Glucose, Urine (Ua) Auto RFX Laboratory test result Above high normal [facility] Protein, Urine Auto RFX Laboratory test result Above high normal [facility] Ketone, Urine Auto RFX Laboratory test result Above high n ormal [facility] ([facility]) Nitrite, Urine Auto RFX Laboratory test result N ormal (applies to non-numeric results) [facility] Urobilinogen, Urine Auto RFX 2.0 mg/dL 0.0-2.0 Above high normal [facility] ([facility]) Bilirubin, Urine Auto RFX Laboratory test result Normal (applies to non- numeric results) [facility] ([facility]) Blood, Urine Blood RFX Laboratory test result Above high n ormal [facility] ([facility]) Leukocyte Esterase Ur Auto RFX Laboratory test result Normal (applies to non- numeric results) [facility] ([facility]) WBC, Urine Auto RFX 0 /HPF 0-3 Normal (applies to non-nume nemo results) [facility] ([facility]) RBC, Urine Auto RFX 2 /HPF 0-3 Normal (applies to non-nume nemo results) [facility] ([facility]) Squam Epithelial Cell Ur Aurfx 0 /HPF 0-6 N ormal (applies to non-numeric results) [facility] ([facility]) Bacteria, Urine Auto RFX Laboratory test result Above high normal [facility] ([facility]) Mucus, Urine RFX Laboratory test result Normal ( applies to non-numeric results) [facility] ([facility]) Amorphous Sediment RFX Laboratory test result Above high n ormal [facility] Hyaline Cast, Urine Auto RFX 0 /LPF 0-1 Normal (appl ies to non-numeric results) [facility] ([facility]) ID Date Data Source [id number] 10/09/2020 03:15:00 PM EDT [facility] ([facility]) Name Value Range Interpretation Code Description Data Laura rce(s) Supporting Document(s) Red Blood Count 3.95 10 4.00-5.40 Below low normal [facility] ([facility]) White Blood Count 6.1 10 4.0-10.0 Normal (applies to non-numeri c results) [facility] ([facility]) Hemoglobin 11.1 g/dL 12.0-15.5 Below low normal [facility] ( [facility]) Mean Corpuscular Hemoglobin 28.1 pg 27.0-33.0 Norm al (applies to non-numeric results) [facility] ([facility]) Mean Corpuscular Volume 90.4 fl 80.0-96.0 Normal ( applies to non-numeric results) [facility] ([facility]) Hematocrit 35.7 % 36.0-47.0 Below low normal [facility] ( [facility]) Mean Corpuscular HGB Conc 31.1 g/dL 32.0-36.5 Below low normal [facility] ([facility]) Red Cell Distribution Width 14.0 % 11.5-14.5 Norm al (applies to non-numeric results) [facility] ([facility]) Platelet Count, Automated 259 10 150-450 Normal (applies to non-numeric results) [facility] ([facility]) Neutrophils % 78.3 % 36.0-66.0 Above high normal [facility] ([facility]) Eos % 2.0 % 0.0-3.0 Normal (applies to non-numeric resul ts) [facility] ([facility]) Lymph % 13.3 % 24.0-44.0 Below low normal [facility] ( [facility]) Reagan % 5.4 % 2.0-8.0 Normal (applies to non-numeric resul ts) [facility] ([facility]) Nucleated Red Blood Cell % 0.0 % 0-0 Normal (applies to n on-numeric results) [facility] ([facility]) Immature Granulocyte % 0.3 % 0-3.0 Normal (applies to non-n umeric results) [facility] ([facility]) Baso % 0.7 % 0.0-1.0 Normal (applies to non-numeric resul ts) [facility] ([facility]) Lymph # 0.8 10 1.5-5.0 Below low normal [facility] ( [facility]) Neutrophils # 4.8 10 1.5-8.5 Normal (applies to non-numeric re sults) [facility] ([facility]) Reagan # 0.3 10 0.0-0.8 Normal (applies to non-numeric resul ts) [facility] ([facility]) Eos # 0.1 10 0.0-0.5 Normal (applies to non-numeric resul ts) [facility] ([facility]) Baso # 0.0 10 0.0-0.2 Normal (applies to non-numeric resul ts) [facility] ([facility]) ID Date Data Source [id number] 09/09/2020 08:30:00 AM EDT [facility] Name Value Range Interpretation Code Description Data Laura rce(s) Supporting Document(s) EGD [facility] EANNIz9xDjMSZqQoTKEiXxgHKJdaDBnbHANaW8L6ZPdlTu7VFLczrwEbMOYfGv9+VMLrSZ3bgy8cLDEu gMy [file] +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/RKVXZVK+gBRL1X8taicwlBexPVsfTtlfQ1In6q9yRnlVJCxMUlB8GO80jkeiwZ8zlgDQe9Qq2B2K [file] Jose Raul+ncL1X80zhdU9VsFEnBi3d5jFVUu5oLSAXv9bcl [file] 9t3ocGS+LINE TENDER+7OuWhVFZN+b9pMGn+tP3h0rQFU4ulhyE+WsnQqhxJe1yuKoM3lfwvHbr3HKvuepsTG/vK [file] certified emergency vehicle technician/qN0b/msDJHOrGWGdopve8x99bNtvchD1qUdGdxUO/rB13+SCjKD7FXNnh6VMIbPLJmLIoBD5An0b [file] J1MwInIlxNSQpzS3dhdwgaoKIpBRNt/5Lje/EUbtIxGxhv2pgSWTm+L9iSZxwavKIvvoH+LINE TENDER+P+eqXBB [file] nursing director+0IJzHiG/sW3K28d+EX9z5tceoiWOZMBpMy3ZcrD [file] +zWNZp0CB6v7xc2XnUcge2lsvonhhPfXL5jTGAjd9LcfPSoLuuDLaNlY8FvrHIZfA60U0+public information director+7o/+MDt hN1UDUloB+CNDuvZ2XI/ESFmlqFGuBdFsnX4Ud2qtqaWRFpR5Uhy24YKGUbbnjgJ3u+Rz8H7B3HkeXNR U3RlLCw1rXNlcP0PTjNQvshshNXbSQqReH8PqJXoot +3bR2oBmrC0c1xJ8FVH9c+KY1vt4o4q8GiFWAJqiR/DLuOvylixOkif31YlYckOJhIaSoihy1uiqzG6i 9dkRsPMuw2hJFbiAfrFWszH8Tv2jiSNZfYpYtF3WYvd7qUm0YuChyoLzdPC0/kyT//avan3NZQ5O3ZtO OawmyyhNAwH95QXAvG4vWT2pkpJUaLKOdiBVXf+/j7 xb4TRFQ1slRYebl6o5o4m73Mu5m7bgaaCuglrIMCnnfB6GIjs2YcGDREX0U0HtEc/XEyl5taGriwvFFm jYfc410bHhOefgUvWzjKnyUYgdefZXSMxo8HS1UvLa17fqz2R7Ac4X+MoB+vWzUttUPai++p9uUol42X h6q202ByCBVqnMA2q5lEjfNVB8LCU6x4Nj+efCTNAe x/XnNw9ic7NYjJBm6Gm7SN5xO8Cd2CTsR+19uSBdUDPUhHTE3uf8zHuQQ7CySOj5D8aP39zfRh+B9P0f MznYlfgFZSbKSwkJ0Pj05PcuGQL25BgOuZ0nU1+voqxrcOHi9wSPIu9QUpj8ZwzHbDkHY8SCdZgRB1yX EoWfKyRbqIAl42ClU41utQhabaa+fhOqwcA/T8e52T h8tehjfJ8mRJzGoIskhUrpZKtSyykFCq8YzfkrjL7QCi6ywGt/Os2r5U7LktmLtjFscwIOrbHluti9P/ kJ0A1fJeBTxGB9fCx504bfqCVW6MFjwJGEnZw6qbeHE2nFR1jduTIFUwU48HrF/3BI3p9imdXu3TVJ1r QRSJZ8oQJWxmTlhXYF3x/ViACOQihdJ6gTg1Y5+Wilmer [file] 8TSSDt2U3ezNbqdOxbzjxlzPtBpKdpyzpZlovdjrEb e96ol1v2J/oMweL/e/0CqXL1+BPIos8056hhnGHsEkAerBtCRvBo4BiDqSv9ZmvAofCz9H8p5jVzW8OQ P2C71qELjag9W94doeioHbFyU1dGic5K65OMScTuCaTsCcAR8XObnxp/R445R9PMFNto1MMBGJZ8zRGc hTJ7aWoF1h+vf2sezdNUopct100GQzN6n1NjXERmF/ GgJ5R7RO06u4RYLznv+76xaYDaYOEHezqrWnLvMJMkyFtPuL+JfE1k3mUhoAiF93iKNyiazp/h/a5ywy EL9rM7SN+J6P+gdAnJdUq6B67VBUlsZLXsBzUj5D651aRX26iXUry1KEg7Kg1QLpAH2BaVrFnuRcc2qz ufmf7brS4JgojBIopEZ0wu0uBwTjAD5akZ4/NvpQOB WgSjK31dpsvuuxX+IzLYL8IKvF+LcDWLL71brzNn7JPFszkW3c6WB3ld6lAbNNl/i1pM84yUv6jUBi4F 3/xdwkgybH8qUzubG2w2W/eNj2KHfwj3MtbHfW43f88wOVODYMqsxj0CEO9tegqTa4E7sIfsqEA+fxYf KNCXIZjjbb5IvOTtIk+PjIBPfBSvBkxcZpkO88/MEDICAL RECORD CODER [file] BQsez6GfbspnbWD7djJQnSY9Rk+hZF9VjxT+Clinical Biochemical Geneticist/hF3+4kTQd1qK/4UQR8A1T7LtWXtmYzmBnFGT1v4qV [file] J9omUcYhLgeH3GXYdyvRW7Qf5LeXnCIm6zRI3gqeL3/Олег/ydgO5M3AVhzSRGk+lh2mupxj9L7G2DWo [file] T0Y= ID Date Data Source [id number] 09/04/2020 08:00:00 AM EDT [facility] Name Value Range Interpretation Code Description Data Laura rce(s) Supporting Document(s) SARS coronavirus 2 RNA [Presence] in Res piratory specimen by JUAN A with probe detection NOT DETECTED [facility] This lab was reported by [facility]. ID Date Data Source [id number] 08/11/2020 08:30:00 AM EDT [facility] Name Value Range Interpretation Code Description Data Laura rce(s) Supporting Document(s) Follow Up [facility] LQKKPz0uMnWXJkZzYVTrCudAFTzyAIweMEKuZ1W3SVvcIg3ITVgbmqVhZOSgPv8+HQSuQE0sjv7xNCQo gMy [file] nursing director/HVSCsxEO0JgpJJpxvIVeK9w7eL/rCyMFZ6zCU7U8n2YtCfetj3bhECJ5ToawLUtcWxkyj+sJGFdtX [file] BPSg7Xqzjlf+SVYo+Clinical Biochemical Geneticist/kM+Sa4U2xETG5uICtDuR8dpxpVH3YTArPM/lH1rAhWHYtOjORJopqluOHGeK [file] public information director/gvv5vv7rjrpe5vcUPrckCBQvCTTrh1rHJ9JcuaV 4Qjpqryq+dNdXlS84i3xFTgs67L67IBbH6JttLIPGKsuDA5hU/Cys/crVPEiAEQuxoc0UIWjjq9rwUVJ hvaNHzDpPSKIRCHccTuzbLD2JuYYk513HFT32/7Mjr/umf7yFtBNh3PIKBPsffeP7VIMxL8vZx0RyCtR nNDiOvnnOM+z3tdFEfygTwTL9AJCsB+j5kSQ7q+fb7 vD0qDbWS7c5u6HJcQ7HcdWo8UETu1BiMUYOxnX9+5amaxXU5RwG2uXWf2e+oPpXRXFkhUv9J+eWLJ91U CJbV4dWAPcAnHktoyvoGN4i1SihK/AEmYS0/hvO6OZ1ZletBMQA36nNZ8AdpBK6OyhE1AXVh1g19SylC ofGltgL45Zw4pg1Uu6x9RTS5KvI3GmdcpxNiSKLiXX cAbinc5HJizE/R4aoPKqVzzXzWoxhvBc3WdhBV7rQmiavn1srL1xA5OfU1B84nPmD2VbIR/TmaNCfNR/ 0XvCruRwq3N5BWV5dnDJ2f5ZKQ+kMAX6EZHcFPDabG8/yB4JAuwVG6UiAL2qXXU43cRLeAs7NndVYG6t TnwUsSN4uc9/NV3CeTMO19el8609c29pFQNCxssyw/ nn+I8X+4c+y6vSaMaCv3k88ncmvg2KVDWT1tN+rHtL72Gx3yZV5YFfDlKG0AhWSSWyqALmJjyQz5pI1K 2ZtuNRp9qPW1xDMt7uQJeWBzTFLwbHO6Jg8QZ5S3e7R+VXjakmT+5/0ilfCkNHpGZdKnoA4hHaNZ0wr8 R6XPLBJ/CbhqXMOvDGq+qWxG3e5dPGoXxUPepH4zkV PzwD35raDzJiF2hgYxp/wTfqM2vf2UurKCpCnUNp3CRRQolq9yJiOnLYIo+FzzONyZ2VWBL4dh9gd6oj ipBmCQZFvLTASxqu7K5GdHspq9a6ljc9jLsYu3kVaZlQQ1sgyF1ao5CJq+2n8ThBfl90/Liliana+l95g7U4 [file] zCmiQJzwAghnj0Kw4o5A+Platform Power Technician+ZjbNty6sjPTkLWWwu [file] vp patient/iy+j9ochkSq88h4441oJ5tXm9S6qndnrXIQb1LY [file] 00s/Surp2quhQHOppK7Aq1/y6zIfO5B/TIitaM/Juan Carlos [file] bJs9HdYg97v4DeCS81C9oAcKhXyTaXjwgAuVVpQcRAyNZ+51/buwqM/iOlG6FpICjv234TeC0ST5U+public information director [file] 5KpwZF+tkysyoEnisDN2g/6GbqzIv/+yxgf9tqnt/RQpE2XWTG5ckypOj/cJl/ICT PROJECT MANAGER+xk08Q+wVSDmt5gJ NAUZm1U8lUsNQGeJNXSNJ4zNGnCmuL0Id6v2y/1VSw KuRY3wcf4VVw9GcSHoGVZp2PQ4tqIxX+oTDvKF7bWCn7mJ0Sk/iC0wRljTe6qrqgep3aF+B7ogt08MOP hX7XHvlfRJWzxmkCMglXyeSSjti0CH+mr+0ZIC2iux/5PN2dWowZZUviFS1GdrI/usQMbovWmK6l+cHX Ltm7PGyz2+dHc1fGjk59tF0rsO3UdxOMhKKJLI39Vw mr5dvbjaxKv5qm4mojqUvc+ZUCM7Ok3O6F0lN1iSo80T0woYYe2s/xYFBrHIJSJ2UpD32x7l+Ecv5FJc T7wVKtuYLFKfVwAazgGSthTRedxBeI+tfA/4QLfViFp7mNqJoPvnPs0O1T5bg3o5EI4WVoxHz3JH2xyb DMLRfW2CnbpDkayhFmV+ncDHw1kkw2q0VvQJ9b3t3M fu2mPFZeKnZ4F1wLYLn+7u2soZyfKp5I5sYYpoGbsTWfR8sVsrvCsGXo2P2Th14DBnuLMF/3lEOmFqp7 lweaon6wbn6EumOZATqWa1ex0TnyGbRlH2Vic1gBgG2ahaLwwaUd6whBQbxLN3U7Z+bwuNT11aoRqM1B gaowGBaHFImVbSVHIAzyOatR8dZz/r5th6mfFc9+8o 5CcwAhNMHqsz2Y9/lxTVo2OI/y5b+vnnukvI3xN1XocufFloMVkX22BQH6a/Cp3s1p9JylueaOteSGMy tOLbeutcp2GenfD6gxYVGRkYigqkU6MI1f86CodpT3kqRcw3vRERHvjzbud5pjuvUTEThMaCDLBmeZbq ehkgGudhnajfahL7JAvdmtPQwIP4TxcNLGpTbnZNxl lYgFaFYJLecVmM7jF9/Avani/+Tq78iHwbUUUEQMTLUh6I/RH7IXqKSREjQ/ZmI6TxjomXtVpcNl6+5V4R [file] mQThiKfrLJtA1HDWg2IN2CVI+hJqFDIKGG/vp patient/3nN3 [file] vp patient+DESRWbE6KT1FPv91VOrj2z1+n6zhATMWuXvGJDI1+vJVumLNbwu6kpFMW8zU5Yq4z56PKWWn+HMR9 [file] nursing director+Z1Q29jHYiQu4av9yNiwGkzojHu4xgXkR2UAFDMilD7nhz6v6jpWgH8dcB40m075SIhGOCJRwzGyGO [file] oHHrpFCYeJ6Q5jidjf/WtkE9EQ5c/bGER90+Mi [file] Juan Carlos/M+vcJYeq/Xqte0i/UkO+4B7EB08xiZ2RC3Yp80/AOOuNZ4FIojEzASvyxQUBxnmt36tZpUJ1tN5P [file] a8+QjOr9/cClccRtVYhij0auqj1NYkrj8nFhA8 [file] Kw9wTSGRUEF7SNL7JaS0XPB4SDKSZQsBXXJWHpItVC J9GYuyAz3jTc6mkDWtTBNxTf3BfpJnSZMpXUVIJ6XoclHhWeWyZGqrSNIgZVVxQi1AAOpgCJEgQB0+Pn L5ctXutZ6PgQdcOQKlSYZjURYgQZMMRD1JgSjALVKSEAMxiyWYzckHZGFJjDCM5gmKJJQcTAnhUcSgWK UbYrrMRKDKUOuFUE2OqmAkXJS+Z0w7ucMMicPJKu3I FK0jo7SyAZRxMKnuurGdSkxAMIeamPMdfNdpIPESCeV0NQusWqOCCuQvJV5X ID Date Data Source [id number] 04/28/2020 12:00:00 AM EST [facility] Name Value Range Interpretation Code Description Data Laura rce(s) Supporting Document(s) SARS-CoV-2 (COVID-19) RNA [Presence] in Respiratory specimen by JUAN A with probe detection [facility] This lab was ordered by [facility] and reported by [facility] [employer] ID Date Data Source [id number] 04/07/2020 12:00:00 AM EST [facility] Gladis Ventura DO Patient Name: JANET [id number] Date of : 1940 1 Date of Exam:04/07/2020MACARIO [place] [id number]#: Fax: [phone] EXAM: MAMMO SCREENING WITH CADCLINICAL [...] mammogram was read with the assistance of [employer], an FDAapproved computer aided detection system for [...] rce(s) Supporting Document(s) ID Date Data Source [id number] 03/23/2020 07:33:00 PM EST [facility] ([facility]) Name Value Range Interpretation Code Description Data Laura rce(s) Supporting Document(s) White Blood Count 4.2 10 4.0-10.0 Normal (applies to non-numeri c results) [facility] ([facility]) Hemoglobin 11.0 g/dL 12.0-15.5 Below low normal [facility] ( [facility]) Red Blood Count 3.64 10 4.00-5.40 Below low normal [facility] ([facility]) Hematocrit 34.6 % 36.0-47.0 Below low normal [facility] ( [facility]) Mean Corpuscular Volume 95.1 fl 80.0-96.0 Normal ( applies to non-numeric results) [facility] ([facility]) Mean Corpuscular HGB Conc 31.8 g/dL 32.0-36.5 Below low normal [facility] ([facility]) Mean Corpuscular Hemoglobin 30.2 pg 27.0-33.0 Norm al (applies to non-numeric results) [facility] ([facility]) Platelet Count, Automated 202 10 150-450 Normal (applies to non-numeric results) [facility] ([facility]) Red Cell Distribution Width 13.3 % 11.5-14.5 Norm al (applies to non-numeric results) [facility] ([facility]) Neutrophils % 52.9 % 36.0-66.0 Normal (applies to non-numeric re sults) [facility] ([facility]) Lymph % 29.6 % 24.0-44.0 Normal (applies to non-numeric resul ts) [facility] ([facility]) Reagan % 7.7 % 0.0-5.0 Above high normal [facility] ([facility]) Eos % 8.4 % 0.0-3.0 Above high normal [facility] ([facility]) Baso % 1.2 % 0.0-1.0 Above high normal [facility] ([facility]) Immature Granulocyte % 0.2 % 0-3.0 Normal (applies to non-n umeric results) [facility] ([facility]) Nucleated Red Blood Cell % 0.0 % 0-0 Normal (applies to n on-numeric results) [facility] ([facility]) Lymph # 1.2 10 1.5-5.0 Below low normal [facility] ( [facility]) Neutrophils # 2.2 10 1.5-8.5 Normal (applies to non-numeric re sults) [facility] ([facility]) Reagan # 0.3 10 0.0-0.8 Normal (applies to non-numeric resul ts) [facility] ([facility]) Baso # 0.1 10 0.0-0.2 Normal (applies to non-numeric resul ts) [facility] ([facility]) Eos # 0.4 10 0.0-0.5 Normal (applies to non-numeric resul ts) [facility] ([facility]) ID Date Data Source [id number] 03/23/2020 07:33:00 PM EST [facility] ([facility]) Name Value Range Interpretation Code Description Data Laura rce(s) Supporting Document(s) Prothrombin Time 20.7 s 12.5-14.3 Above high normal M [facility] ([facility]) Inr 1.74 Normal (applies to non-numeric resul ts) [facility] ([facility]) THERAPUTIC HUMAN INR VALUES INDICATIONS NORMAL RANGES PROPHYLAXIS/TREATMENT OF: VENOUS THROMBOSIS 2.0-3.0 PULMONARY EMBOLISM 2.0-3.0 PREVENTION OF SYSTEMIC EMBOLISM FROM: TISSUE HEART VALVES 2.0-3.0 ACUTE MYOCARDIAL INFARCTION 2.0-3.0 VALVULAR HEART DISEASE 2.0-3.0 ATRIAL FIBRILLATION 2.0-3.0 MECHANICAL VALVES(HIGH RISK) 2.5-3.5 RECURRENT MYOCARDIAL INFARCTION 2.5-3.5 ID Date Data Source [id number] 03/23/2020 07:33:00 PM EST [facility] ([facility]) Name Value Range Interpretation Code Description Data Laura rce(s) Supporting Document(s) aPTT in Platelet poor plasma by Coagulation assay 43.3 s 24.2-38.5 Above high normal [facility] ID Date Data Source [id number] 03/23/2020 07:33:00 PM EST [facility] Name Value Range Interpretation Code Description Data Laura rce(s) Supporting Document(s) CPK Creatine Phosphokinase 85 U/L 26-192 Lina l (applies to non-numeric results) [facility] ([facility]) CK-MB Value Mass 2.5 ng/mL Normal (applies to non-numeric results) [facility] ([facility]) MB/CK Relative Index 2.94 Normal (applies to non-num evy results) [facility] ([facility]) <content>DIAGNOSIS CRITERIA</content>
<content>MMB ng/ml Relative Index (RI)</content>
<content>NON-AMI < or = 5 N/A</content>
<content>FLOWERS ZONE > 5 < or = 4</content>
<content>AMI > 5 > 4</content>
<content></content> Troponin I Laboratory test result Normal (applies to non-n umeric results) [facility] ([facility]) <content>Troponin I Reference Interval f or [employer] [place] LOCI:</content>
<content></content>
<content>99th Percentile= 0.00-0.045 ng/ml</content>
<content></content>
<content>Risk Stratification:</content>
<content><= 0.10 ng/ml Decreased Risk for Adverse Clinical</content>
<content>Events.</content>
<content>0.10-1.50 ng/ml Increased Risk for Adverse Clinical</content>
<content>Events. Evaluation of additional</content>
<content>criterion and/or repeat testing in 2-6</content>
<content>hours is suggested to rule out myocardial</content>
<content>damage.</content>
<content>>= 1.50 ng/ml Indicative of Myocardial Injury.</content>
<content></content> ID Date Data Source [id number] 03/23/2020 07:33:00 PM EST [facility] ([facility]) Name Value Range Interpretation Code Description Data Laura rce(s) Supporting Document(s) Ast/Sgot 24 U/L 7-37 Normal (applies to non-numeric resul ts) [facility] ([facility]) Alt/SGPT 23 U/L 12-78 Normal (applies to non-numeric resul ts) [facility] ([facility]) Alkaline Phosphatase 98 U/L 45-117 Normal (applies to non-num evy results) [facility] ([facility]) Bilirubin,Total 0.2 mg/dL 0.2-1.0 Normal (applies to non-numeric results) [facility] ([facility]) Bilirubin,Direct Laboratory test result 0.0-0.2 Normal ( applies to non-numeric results) [facility] ([facility]) Albumin 3.3 GM/DL 3.2-5.2 Normal (applies to non-numeric resul ts) [facility] ([facility]) Total Protein 6.7 GM/DL 6.4-8.2 Normal (applies to non-numeric re sults) [facility] ([facility]) Albumin/Globulin Ratio 1.0 1.2-2.2 Below low normal [facility] ID Date Data Source [id number] 03/23/2020 07:33:00 PM EST [facility] ([facility]) Name Value Range Interpretation Code Description Data Laura rce(s) Supporting Document(s) Glucose, Fasting 121 mg/dL 70-100 Above high normal [facility] ([facility]) Blood Urea Nitrogen 14 mg/dL 7-18 Normal (applies to non-nume nemo results) [facility] ([facility]) Creatinine For GFR 0.71 mg/dL 0.55-1.30 Normal (applies to non -numeric results) [facility] Glomerular Filtration Rate Laboratory test result Normal (applies to non- numeric results) [facility] ([facility]) <content>Units are mL/min/1.73 m2</content>
<content></content>
<content>Chronic Kidney Disease Staging per NKF:</content>
<content></content>
<content>Stage I & II GFR >=60 Normal to Mildly Decreased</content>
<content>Stage III GFR 30- 59 Moderately Decreased</content>
<content>Stage IV GFR 15-29 Severely Decreased</content>
<content>Stage V GFR <15 Very Little GFR Left</content>
<content>ESRD GFR <15 on RETAIL ASSOCIATE</content>
<content></content> Potassium Serum 4.0 meq/L 3.5-5.1 Normal (applies to non-numeric results) [facility] ([facility]) Sodium Level 142 meq/L 136-145 Normal (applies to non-numeric res ults) [facility] ([facility]) Carbon Dioxide Level 25 meq/L 21-32 Normal (applies to non-num evy results) [facility] ([facility]) Chloride Level 110 meq/L 98-107 Above high normal [facility] ([facility]) Anion Gap 7 meq/L 8-16 Below low normal [facility] Calcium Level 8.8 mg/dL 8.8-10.2 Normal (applies to non-numeric re sults) [facility] ID Date Data Source [id number] 03/23/2020 07:33:00 PM EST [facility] ([facility]) Name Value Range Interpretation Code Description Data Laura rce(s) Supporting Document(s) Thyrotropin [Units/volume] in Serum or Plasma 5.210 uIU/ML 0. 358-3.740 Above high normal [facility] Thyroxine (T4) free [Mass/volume] in Serum or Plasma 1.08 ng/dL 0.76-1.46 Normal (applies to non-numeric results) [facility] ([facility]) ID Date Data Source [id number] 03/19/2020 06:30:00 PM EST [facility] ([facility]) Name Value Range Interpretation Code Description Data Laura rce(s) Supporting Document(s) Laboratory test finding (navigational concept) Laboratory test r esult Normal (applies to non-numeric results) [facility] ([facility]) A false negative result may occur if [...] pathogens. DISCLAIMER: Testing was performed using the [employer] SARS-CoV-2 test. This test was developed and its performance characteristics determined by [employer]. This test has not been FDA cleared [...] or revoked sooner. ID Date Data Source [id number] 03/19/2020 06:30:00 PM EST [facility] Name Value Range Interpretation Code Description Data Laura rce(s) Supporting Document(s) Coronavirus 2019 Nasopharygeal Laboratory test result [facility] Laboratory test finding (navigational concept) Laboratory test r esult Normal (applies to non-numeric results) [facility] A false negative result may occur if [...] pathogens. DISCLAIMER: Testing was performed using the [employer] SARS-CoV-2 test. This test was developed and its performance characteristics determined by [employer]. This test has not been FDA cleared [...] or revoked sooner. ID Date Data Source [id number] 03/19/2020 04:54:00 PM EST [facility] ([facility]) Name Value Range Interpretation Code Description Data Laura rce(s) Supporting Document(s) Ast/Sgot 19 U/L 7-37 Normal (applies to non-numeric resul ts) [facility] ([facility]) Alt/SGPT 21 U/L 12-78 Normal (applies to non-numeric resul ts) [facility] ([facility]) Alkaline Phosphatase 98 U/L 45-117 Normal (applies to non-num evy results) [facility] Bilirubin,Total 0.3 mg/dL 0.2-1.0 Normal (applies to non-numeric results) [facility] ([facility]) Total Protein 6.6 GM/DL 6.4-8.2 Normal (applies to non-numeric re sults) [facility] ([facility]) Bilirubin,Direct 0.1 mg/dL 0.0-0.2 Normal (applies to non-numeric results) [facility] Albumin 3.3 GM/DL 3.2-5.2 Normal (applies to non-numeric resul ts) [facility] Albumin/Globulin Ratio 1.0 1.2-2.2 Below low normal [facility] ([facility]) ID Date Data Source [id number] 03/19/2020 04:54:00 PM EST [facility] ([facility]) Name Value Range Interpretation Code Description Data Laura rce(s) Supporting Document(s) CPK Creatine Phosphokinase 81 U/L 26-192 Lina l (applies to non-numeric results) [facility] ([facility]) MB/CK Relative Index 3.33 Normal (applies to non-num evy results) [facility] ([facility]) <content>DIAGNOSIS CRITERIA</content>
<content>MMB ng/ml Relative Index (RI)</content>
<content>NON-AMI < or = 5 N/A</content>
<content>FLOWERS ZONE > 5 < or = 4</content>
<content>AMI > 5 > 4</content>
<content></content> CK-MB Value Mass 2.7 ng/mL Normal (applies to non-numeric results) [facility] ([facility]) Troponin I Laboratory test result Normal (applies to non-n umeric results) [facility] ([facility]) <content>Troponin I Reference Interval f or [employer] [place] LOCI:</content>
<content></content>
<content>99th Percentile= 0.00-0.045 ng/ml</content>
<content></content>
<content>Risk Stratification:</content>
<content><= 0.10 ng/ml Decreased Risk for Adverse Clinical</content>
<content>Events.</content>
<content>0.10-1.50 ng/ml Increased Risk for Adverse Clinical</content>
<content>Events. Evaluation of additional</content>
<content>criterion and/or repeat testing in 2-6</content>
<content>hours is suggested to rule out myocardial</content>
<content>damage.</content>
<content>>= 1.50 ng/ml Indicative of Myocardial Injury.</content>
<content></content> ID Date Data Source [id number] 03/19/2020 04:54:00 PM EST [facility] ([facility]) Name Value Range Interpretation Code Description Data Laura rce(s) Supporting Document(s) aPTT in Platelet poor plasma by Coagulation assay 37.1 s 24.2-38.5 Normal (applies to non-numeric results) [facility] ([facility]) ID Date Data Source [id number] 03/19/2020 04:54:00 PM EST [facility] ([facility]) Name Value Range Interpretation Code Description Data Laura rce(s) Supporting Document(s) Inr 1.08 Normal (applies to non-numeric resul ts) [facility] THERAPUTIC HUMAN INR VALUES INDICATIONS NORMAL RANGES PROPHYLAXIS/TREATMENT OF: VENOUS THROMBOSIS 2.0-3.0 PULMONARY EMBOLISM 2.0-3.0 PREVENTION OF SYSTEMIC EMBOLISM FROM: TISSUE HEART VALVES 2.0-3.0 ACUTE MYOCARDIAL INFARCTION 2.0-3.0 VALVULAR HEART DISEASE 2.0-3.0 ATRIAL FIBRILLATION 2.0-3.0 MECHANICAL VALVES(HIGH RISK) 2.5-3.5 RECURRENT MYOCARDIAL INFARCTION 2.5-3.5 Prothrombin Time 14.2 s 12.5-14.3 Above high normal [facility] ID Date Data Source [id number] 03/19/2020 04:54:00 PM EST [facility] ([facility]) Name Value Range Interpretation Code Description Data Laura rce(s) Supporting Document(s) White Blood Count 4.2 10 4.0-10.0 Normal (applies to non-numeri c results) [facility] ([facility]) Red Blood Count 3.68 10 4.00-5.40 Below low normal [facility] ([facility]) Hemoglobin 11.1 g/dL 12.0-15.5 Below low normal [facility] ( [facility]) Hematocrit 35.0 % 36.0-47.0 Below low normal [facility] ( [facility]) Mean Corpuscular Volume 95.1 fl 80.0-96.0 Normal ( applies to non-numeric results) [facility] Mean Corpuscular HGB Conc 31.7 g/dL 32.0-36.5 Below low normal [facility] ([facility]) Mean Corpuscular Hemoglobin 30.2 pg 27.0-33.0 Norm al (applies to non-numeric results) [facility] ([facility]) Platelet Count, Automated 180 10 150-450 Normal (applies to non-numeric results) [facility] ([facility]) Red Cell Distribution Width 13.5 % 11.5-14.5 Norm al (applies to non-numeric results) [facility] ([facility]) Lymph % 27.8 % 24.0-44.0 Normal (applies to non-numeric resul ts) [facility] ([facility]) Neutrophils % 53.0 % 36.0-66.0 Normal (applies to non-numeric re sults) [facility] ([facility]) Reagan % 7.2 % 0.0-5.0 Above high normal [facility] ([facility]) Eos % 10.8 % 0.0-3.0 Above high normal [facility] ([facility]) Baso % 1.0 % 0.0-1.0 Normal (applies to non-numeric resul ts) [facility] ([facility]) Immature Granulocyte % 0.2 % 0-3.0 Normal (applies to non-n umeric results) [facility] ([facility]) Nucleated Red Blood Cell % 0.0 % 0-0 Normal (applies to n on-numeric results) [facility] ([facility]) Neutrophils # 2.2 10 1.5-8.5 Normal (applies to non-numeric re sults) [facility] ([facility]) Lymph # 1.2 10 1.5-5.0 Below low normal [facility] ( [facility]) Eos # 0.5 10 0.0-0.5 Normal (applies to non-numeric resul ts) [facility] ([facility]) Reagan # 0.3 10 0.0-0.8 Normal (applies to non-numeric resul ts) [facility] ([facility]) Baso # 0.0 10 0.0-0.2 Normal (applies to non-numeric resul ts) [facility] ([facility]) ID Date Data Source [id number] 03/19/2020 04:54:00 PM EST [facility] ([facility]) Name Value Range Interpretation Code Description Data Laura rce(s) Supporting Document(s) Thyrotropin [Units/volume] in Serum or Plasma 5.520 uIU/ML 0. 358-3.740 Above high normal [facility] ([facility]) Thyroxine (T4) free [Mass/volume] in Serum or Plasma 0.98 ng/dL 0.76-1.46 Normal (applies to non-numeric results) [facility] ([facility]) ID Date Data Source [id number] 03/19/2020 04:54:00 PM EST [facility] ([facility]) Name Value Range Interpretation Code Description Data Laura rce(s) Supporting Document(s) Blood Urea Nitrogen 12 mg/dL 7-18 Normal (applies to non-nume nemo results) [facility] Glucose, Fasting 98 mg/dL 70-100 Normal (applies to non-numeric results) [facility] ([facility]) Creatinine For GFR 0.68 mg/dL 0.55-1.30 Normal (applies to non -numeric results) [facility] ([facility]) Glomerular Filtration Rate Laboratory test result Normal (applies to non- numeric results) [facility] ([facility]) <content>Units are mL/min/1.73 m2</content>
<content></content>
<content>Chronic Kidney Disease Staging per NKF:</content>
<content></content>
<content>Stage I & II GFR >=60 Normal to Mildly Decreased</content>
<content>Stage III GFR 30- 59 Moderately Decreased</content>
<content>Stage IV GFR 15-29 Severely Decreased</content>
<content>Stage V GFR <15 Very Little GFR Left</content>
<content>ESRD GFR <15 on RETAIL ASSOCIATE</content>
<content></content> Sodium Level 143 meq/L 136-145 Normal (applies to non-numeric res ults) [facility] ([facility]) Chloride Level 108 meq/L 98-107 Above high normal [facility] ([facility]) Potassium Serum 3.4 meq/L 3.5-5.1 Below low normal [facility] ([facility]) Carbon Dioxide Level 29 meq/L 21-32 Normal (applies to non-num evy results) [facility] Anion Gap 6 meq/L 8-16 Below low normal [facility] ( [facility]) Calcium Level 8.5 mg/dL 8.8-10.2 Below low normal [facility] ([facility]) ID Date Data Source [id number] 03/19/2020 03:07:00 PM EST [facility] ([facility]) Name Value Range Interpretation Code Description Data Laura rce(s) Supporting Document(s) EKG Laboratory test result [facility] ([facility]) ID Date Data Source WOUND CULTURE AND GRAM ST 02/26/2020 12:00:00 AM EDT eCW1 ([facility]) Name Value Range Interpretation Code Description Data Laura rce(s) Supporting Document(s) WOUND CULTURE AND GRAM ST [facility] ID Date Data Source [id number] 02/25/2020 12:00:00 AM EDT [facility] Gladis Ventura DO Patient Name: JANET [id number] Date of : 1940 1 Date of Exam: 02/25/2020MACARIO [place] [id number]#: Fax: [phone] EXAM: CT ABDOMEN & PELVIS [...] and limitations as described above.Accredited by the [employer] in [place].REJI Alcala/Boyd you for referring SUE URENA to our o ffice.Electronically Signed - IRENE SARAH DO 02/25/20 15:38 Name Value Range Interpretation Code Description Data Laura rce(s) Supporting Document(s) ID Date Data Source [id number] 02/17/2020 03:59:00 PM EDT [facility] ([facility]) Name Value Range Interpretation Code Description Data Laura rce(s) Supporting Document(s) EKG Laboratory test result [facility] ([facility]) Procedure Social History Code Duration Value Status Description Data Source(s ) Alcohol intake 02/02/2021 12:00:00 AM EDT Ex-drinker (finding) comp leted Ex- drinker (finding) Smoking 01/28/2021 12:00:00 AM EDT - 05/01/1970 12:00:00 AM ES T Quit completed Quit [facility] ([facility]) Alcohol intake 01/26/2021 12:00:00 AM EDT Ex-drinker (finding) comp leted Ex- drinker (finding) Alcohol intake 12/21/2020 12:00:00 AM EDT Ex-drinker (finding) comp leted Ex- drinker (finding) Smoking 10/27/2020 12:00:00 AM EDT Former Smoker completed Former Smoker [facility]) Smoking 10/20/2020 12:00:00 AM EDT Former Smoker completed Former Smoker eCW1 ([facility]) Smoking 10/20/2020 12:00:00 AM EDT Former Smoker completed Former Smoker eCW1 ([facility]) Smoking 10/06/2020 12:00:00 AM EDT Former Smoker completed Former Smoker eCW1 ([facility]) Smoking 10/06/2020 12:00:00 AM EDT Former Smoker completed Former Smoker eCW1 ([facility]) Smoking 10/05/2020 12:00:00 AM EDT Former Smoker completed Former Smoker eCW1 ([facility]) Smoking 05/28/2020 12:00:00 AM EST Patient is a former smoker completed Patient is a former smoker [facility] ([facility], ) Alcohol intake 04/02/2020 12:00:00 AM EST Not Currently completed Cigarette pack-years 04/02/2020 12:00:00 AM EST UNK completed Cigarettes smoked current (pack per day) - Reported 04/02/20 12:00:00 AM EST UNK completed [facility] Smoking 04/02/2020 12:00:00 AM EST Former smoker completed Former smoker Alcohol intake 03/25/2020 12:00:00 AM EST Not Currently completed Cigarette pack-years 03/25/2020 12:00:00 AM EST UNK completed Cigarettes smoked current (pack per day) - Reported 03/25/20 12:00:00 AM EST UNK completed [facility] Smoking 03/25/2020 12:00:00 AM EST Former smoker completed Former smoker Vital Signs ID Date Data Source [id number] Name Value Range Interpretation Code Description Data Source(s) Body temperature 96.9 [degF] 96.9 [degF] [facility] ([facility]) Oxygen saturation in Arterial blood by Pulse oximetry 99 % 99 % [facility] ([facility]) Systolic blood pressure 168 mm[Hg] 168 mm[Hg] [facility] ([facility]) Diastolic blood pressure 84 mm[Hg] 84 mm[Hg] [facility] ([facility]) Body height 57.6 [in_i] 57.6 [in_i] [facility] ([facility]) 4'9.60" Body mass index (BMI) [Ratio] 20.8 kg/m2 20.8 k g/m2 [facility] ([facility]) Heart rate 83 /min 83 /min [facility] ([facility]) Body weight 98.12 [lb_av] 98.12 [lb_av] [facility] ([facility]) Respiratory rate 16 /min 16 /min [facility] ( [facility]) [place] body weight 100 [lb_av] 100 [lb_av] [facility] ([facility]) Respiratory rate 18 /min 18 /min [facility] ( [facility]) Heart rate 86 /min 86 /min [facility] ([facility]) Body weight 101.12 [lb_av] 101.12 [lb_av] [facility] ([facility]) Body temperature 96.9 [degF] 96.9 [degF] [facility] ([facility]) Body mass index (BMI) [Ratio] 21.4 kg/m2 21.4 k g/m2 [facility] ([facility]) Oxygen saturation in Arterial blood by Pulse oximetry 95 % 95 % [facility] ([facility]) Diastolic blood pressure 74 mm[Hg] 74 mm[Hg] [facility] ([facility]) Body height 57.6 [in_i] 57.6 [in_i] [facility] ([facility]) 4'9.60" [place] body weight 100 [lb_av] 100 [lb_av] [facility] T ([facility]) Systolic blood pressure 134 mm[Hg] 134 mm[Hg] [facility] Body temperature 97.6 [degF] 97.6 [degF] [facility] ([facility]) Respiratory rate 18 /min 18 /min [facility] ( [facility]) Diastolic blood pressure 82 mm[Hg] 82 mm[Hg] [facility] ([facility]) Oxygen saturation in Arterial blood by Pulse oximetry 99 % 99 % [facility] ([facility]) Systolic blood pressure 134 mm[Hg] 134 mm[Hg] [facility] ([facility]) Body height 57.6 [in_i] 57.6 [in_i] [facility] ([facility]) 4'9.60" Body weight 100.38 [lb_av] 100.38 [lb_av] [facility] T ([facility]) Body mass index (BMI) [Ratio] 21.3 kg/m2 21.3 k g/m2 MEDENT ([facility]) Heart rate 67 /min 67 /min MEDENT ([facility]) [place] body weight 100 [lb_av] 100 [lb_av] MEDEN T ([facility]) Body mass index (BMI) [Ratio] 21.7 kg/m2 21.7 k g/m2 MEDENT ([facility]) Systolic blood pressure 134 mm[Hg] 134 mm[Hg] M EDENT ([facility]) Body weight 102.25 [lb_av] 102.25 [lb_av] MEDEN T ([facility]) Diastolic blood pressure 74 mm[Hg] 74 mm[Hg] MEDENT ([facility]) Body height 57.6 [in_i] 57.6 [in_i] MEDENT ([facility]) 4'9.60" Heart rate 87 /min 87 /min MEDENT ([facility]) Respiratory rate 18 /min 18 /min MEDENT ( [facility]) Body temperature 97.7 [degF] 97.7 [degF] [facility] ([facility]) Oxygen saturation in Arterial blood by Pulse oximetry 97 % 97 % [facility] ([facility]) [place] body weight 100 [lb_av] 100 [lb_av] MEDEN T ([facility]) Systolic blood pressure 196 mm[Hg] 196 mm[Hg] [facility] Diastolic blood pressure 82 mm[Hg] 82 mm[Hg] Heart rate 64 /min 64 /min [facility] Body height 147.3 cm 147.3 cm Body weight 46.267 kg 46.267 kg Body mass index (BMI) [Ratio] 21.32 kg/m2 21.32 kg/m2 Oxygen saturation in Arterial blood by Pulse oximetry 95 % 95 % Body mass index (BMI) [Ratio] 21.1 kg/m2 21.1 k g/m2 MEDENT ([facility]) Body temperature 98.2 [degF] 98.2 [degF] MEDENT ([facility]) Oxygen saturation in Arterial blood by Pulse oximetry 95 % 95 % MEDENT ([facility]) Systolic blood pressure 142 mm[Hg] 142 mm[Hg] M EDENT ([facility]) Diastolic blood pressure 76 mm[Hg] 76 mm[Hg] MEDENT ([facility]) Body height 57.6 [in_i] 57.6 [in_i] MEDENT ([facility]) 4'9.60" [place] body weight 100 [lb_av] 100 [lb_av] MEDEN T ([facility]) Body weight 99.38 [lb_av] 99.38 [lb_av] [facility] Heart rate 82 /min 82 /min [facility] ([facility]) Respiratory rate 18 /min 18 /min [facility] ( [facility]) Heart rate 77 /min 77 /min [facility] Body temperature 36.5 Arlyn 36.5 Arlyn [facility] Respiratory rate 16 /min 16 /min [facility] Oxygen saturation in Arterial blood by Pulse oximetry 100 % 100 % Systolic blood pressure 202 mm[Hg] 202 mm[Hg] [facility] Diastolic blood pressure 69 mm[Hg] 69 mm[Hg] Body height 147.3 cm 147.3 cm Body weight 45.8 kg 45.8 kg Body mass index (BMI) [Ratio] 21.10 kg/m2 21.10 kg/m2 Systolic blood pressure 180 mm[Hg] 180 mm[Hg] [facility] Diastolic blood pressure 74 mm[Hg] 74 mm[Hg] Heart rate 70 /min 70 /min [facility] Body height 147.3 cm 147.3 cm Body weight 47.174 kg 47.174 kg [facility] Body mass index (BMI) [Ratio] 21.74 kg/m2 21.74 kg/m2 Oxygen saturation in Arterial blood by Pulse oximetry 97 % 97 % Body weight 98.25 [lb_av] 98.25 [lb_av] [facility] ([facility]) Body mass index (BMI) [Ratio] 20.8 kg/m2 20.8 k g/m2 [facility] Systolic blood pressure 130 mm[Hg] 130 mm[Hg] M EDENT ([facility]) Diastolic blood pressure 98 mm[Hg] 98 mm[Hg] [facility] Body height 57.6 [in_i] 57.6 [in_i] [facility] ([facility]) 4'9.60" Heart rate 78 /min 78 /min [facility] ([facility]) Respiratory rate 14 /min 14 /min [facility] ( [facility]) Body temperature 96.8 [degF] 96.8 [degF] [facility] ([facility]) Oxygen saturation in Arterial blood by Pulse oximetry 98 % 98 % [facility] ([facility]) [place] body weight 100 [lb_av] 100 [lb_av] MEDEN T ([facility]) Systolic blood pressure 150 mm[Hg] 150 mm[Hg] [facility] Diastolic blood pressure 100 mm[Hg] 100 mm[Hg] [facility] ([facility], ) Oxygen saturation in Arterial blood by Pulse oximetry 97 % 97 % [facility] ([facility], ) Body height 57 [in_i] 57 [in_i] [facility] ([facility], ) 4'9" Body weight 101.00 [lb_av] 101.00 [lb_av] MEDEN T ([facility], ) Body mass index (BMI) [Ratio] 21.9 kg/m2 21.9 k g/m2 [facility] ([facility], ) [place] body weight 100 [lb_av] 100 [lb_av] MEDEN T ([facility], ) Body weight 45.814 kg 45.814 kg [facility] Body surface area Derived from formula 1.35 m2 1.35 m2 MEDENT ([facility], ) Heart rate 64 /min 64 /min MEDENT ([facility], ) Diastolic blood pressure 74 mm[Hg] 74 mm[Hg] MEDENT ([facility]) Body weight 99.00 [lb_av] 99.00 [lb_av] MEDENT ([facility]) Body mass index (BMI) [Ratio] 21.0 kg/m2 21.0 k g/m2 MEDENT ([facility]) Heart rate 78 /min 78 /min [facility] Body height 57.6 [in_i] 57.6 [in_i] [facility] ([facility]) 4'9.60" Respiratory rate 18 /min 18 /min [facility] ( [facility]) Systolic blood pressure 136 mm[Hg] 136 mm[Hg] M EDENT ([facility]) Body temperature 97.3 [degF] 97.3 [degF] [facility] ([facility]) Oxygen saturation in Arterial blood by Pulse oximetry 99 % 99 % [facility] ([facility]) [place] body weight 100 [lb_av] 100 [lb_av] MEDEN T ([facility]) Body weight 99 [lb_av] 99 [lb_av] eCW1 ([facility]) Body mass index (BMI) [Ratio] 19.99 kg/m2 19.99 kg/m2 eCW1 ([facility]) Heart rate 64 /min 64 /min eCW1 ([facility]) Respiratory rate 16 /min 16 /min eCW1 ([facility]) Body temperature 97.8 [degF] 97.8 [degF] eCW1 ( [facility]) Systolic blood pressure 163 mm[Hg] 163 mm[Hg] e CW1 ([facility]) Body height [in_i] eCW1 ([facility]) Diastolic blood pressure 70 mm[Hg] 70 mm[Hg] eCW1 ([facility]) Body weight kg eCW1 ([facility]) Systolic blood pressure 130 mm[Hg] 130 mm[Hg] M EDENT ([facility]) Body height 57.6 [in_i] 57.6 [in_i] MEDENT ([facility]) 4'9.60" Body weight 104.00 [lb_av] 104.00 [lb_av] MEDEN T ([facility]) Body mass index (BMI) [Ratio] 22.0 kg/m2 22.0 k g/m2 MEDENT ([facility]) Heart rate 68 /min 68 /min MEDENT ([facility]) Diastolic blood pressure 72 mm[Hg] 72 mm[Hg] MED[facility] ([facility]) Respiratory rate 14 /min 14 /min [facility] Body temperature 97.5 [degF] 97.5 [degF] MEDENT ([facility]) Oxygen saturation in Arterial blood by Pulse oximetry 99 % 99 % [facility] ([facility]) [place] body weight 100 [lb_av] 100 [lb_av] MEDEN T ([facility]) Body weight 99 [lb_av] 99 [lb_av] eCW1 ([facility]) Body weight kg eCW1 ([facility]) Body height [in_i] eCW1 ([facility]) Body mass index (BMI) [Ratio] 19.99 kg/m2 19.99 kg/m2 eCW1 ([facility]) Heart rate 67 /min 67 /min eCW1 ([facility]) Respiratory rate 17 /min 17 /min eCW1 ([facility]) Body temperature 98.4 [degF] 98.4 [degF] eCW1 ( [facility]) Systolic blood pressure 199 mm[Hg] 199 mm[Hg] e CW1 ([facility]) Diastolic blood pressure 81 mm[Hg] 81 mm[Hg] eCW1 ([facility]) Body weight 98 [lb_av] 98 [lb_av] eCW1 ([facility]) Body weight kg eCW1 ([facility]) Body height [in_i] eCW1 ([facility]) Body mass index (BMI) [Ratio] 19.79 kg/m2 19.79 kg/m2 eCW1 ([facility]) Heart rate 64 /min 64 /min eCW1 ([facility]) Respiratory rate 16 /min 16 /min eCW1 ([facility]) Body temperature 98.5 [degF] 98.5 [degF] eCW1 ( [facility]) Body weight 106 [lb_av] 106 [lb_av] eCW1 ([facility]) Respiratory rate 18 /min 18 /min eCW1 ([facility]) Body temperature 98.4 [degF] 98.4 [degF] eCW1 ( [facility]) Systolic blood pressure 140 mm[Hg] 140 mm[Hg] e CW1 ([facility]) Diastolic blood pressure 76 mm[Hg] 76 mm[Hg] eCW1 ([facility]) Body weight kg eCW1 ([facility]) Body height [in_i] eCW1 ([facility]) Body mass index (BMI) [Ratio] 21.41 kg/m2 21.41 kg/m2 eCW1 ([facility]) Heart rate 76 /min 76 /min eCW1 ([facility]) Body weight 106.0 [lb_av] 106.0 [lb_av] eCW1 ([facility]) Body height [in_i] eCW1 ([facility]) Body mass index (BMI) [Ratio] 21.41 kg/m2 21.41 kg/m2 eCW1 ([facility]) Systolic blood pressure 130 mm[Hg] 130 mm[Hg] e CW1 ([facility]) Diastolic blood pressure 74 mm[Hg] 74 mm[Hg] eCW1 ([facility]) Body weight 100 [lb_av] 100 [lb_av] eCW1 ([facility]) Body weight kg eCW1 ([facility]) Body height [in_i] eCW1 ([facility]) Body mass index (BMI) [Ratio] 20.20 kg/m2 20.20 kg/m2 eCW1 ([facility]) Heart rate 93 /min 93 /min eCW1 ([facility]) Respiratory rate 18 /min 18 /min eCW1 ([facility]) Body temperature 98.2 [degF] 98.2 [degF] eCW1 ( [facility]) Systolic blood pressure 136 mm[Hg] 136 mm[Hg] e CW1 ([facility]) Diastolic blood pressure 79 mm[Hg] 79 mm[Hg] eCW1 ([facility]) Body weight 100 [lb_av] 100 [lb_av] eCW1 ([facility]) Body weight kg eCW1 ([facility]) Body height [in_i] eCW1 ([facility]) Body mass index (BMI) [Ratio] 20.20 kg/m2 20.20 kg/m2 eCW1 ([facility]) Heart rate 75 /min 75 /min eCW1 ([facility]) Respiratory rate 16 /min 16 /min eCW1 ([facility]) Body temperature 98.2 [degF] 98.2 [degF] eCW1 ( [facility]) Systolic blood pressure 137 mm[Hg] 137 mm[Hg] e CW1 ([facility]) Diastolic blood pressure 80 mm[Hg] 80 mm[Hg] eCW1 ([facility]) Body weight 100 [lb_av] 100 [lb_av] eCW1 ([facility]) Body weight kg eCW1 ([facility]) Body height [in_i] eCW1 ([facility]) Body mass index (BMI) [Ratio] 20.20 kg/m2 20.20 kg/m2 eCW1 ([facility]) Heart rate 83 /min 83 /min eCW1 ([facility]) Respiratory rate 17 /min 17 /min eCW1 ([facility]) Body temperature 99.3 [degF] 99.3 [degF] eCW1 ( [facility]) Systolic blood pressure 167 mm[Hg] 167 mm[Hg] e CW1 ([facility]) Diastolic blood pressure 78 mm[Hg] 78 mm[Hg] eCW1 ([facility]) Systolic blood pressure 136 mm[Hg] 136 mm[Hg] M EDENT ([facility]) Diastolic blood pressure 76 mm[Hg] 76 mm[Hg] MEDENT ([facility]) Body height 57.6 [in_i] 57.6 [in_i] MEDENT ([facility]) 4'9.60" Body weight 104.25 [lb_av] 104.25 [lb_av] MEDEN T ([facility]) Body mass index (BMI) [Ratio] 22.1 kg/m2 22.1 k g/m2 MEDENT ([facility]) Heart rate 100 /min 100 /min [facility] Body temperature 98.5 [degF] 98.5 [degF] MEDENT ([facility]) Oxygen saturation in Arterial blood by Pulse oximetry 97 % 97 % [facility] [place] body weight 100 [lb_av] 100 [lb_av] MEDEN T ([facility]) Respiratory rate 18 /min 18 /min MEDENT ( [facility]) Body weight 104 [lb_av] 104 [lb_av] eCW1 ([facility]) Body weight kg eCW1 ([facility]) Body height [in_i] eCW1 ([facility]) Body mass index (BMI) [Ratio] 21.00 kg/m2 21.00 kg/m2 eCW1 ([facility]) Heart rate 91 /min 91 /min eCW1 ([facility]) Respiratory rate 16 /min 16 /min eCW1 ([facility]) Body temperature 98.2 [degF] 98.2 [degF] eCW1 ( [facility]) Body weight 104 [lb_av] 104 [lb_av] eCW1 ([facility]) Body height [in_i] eCW1 ([facility]) Body mass index (BMI) [Ratio] 21.00 kg/m2 21.00 kg/m2 eCW1 ([facility]) Heart rate 86 /min 86 /min eCW1 ([facility]) Respiratory rate 18 /min 18 /min eCW1 ([facility]) Body temperature 98.5 [degF] 98.5 [degF] eCW1 ( [facility]) Systolic blood pressure 186 mm[Hg] 186 mm[Hg] e CW1 ([facility]) Diastolic blood pressure 80 mm[Hg] 80 mm[Hg] eCW1 ([facility]) Body height 57.6 [in_i] 57.6 [in_i] MEDENT ([facility]) 4'9.60" Systolic blood pressure 166 mm[Hg] 166 mm[Hg] M EDENT ([facility]) Diastolic blood pressure 80 mm[Hg] 80 mm[Hg] MED[facility] ([facility]) Body weight 108.38 [lb_av] 108.38 [lb_av] MEDEN T ([facility]) [place] body weight 100 [lb_av] 100 [lb_av] MEDEN T ([facility]) Body mass index (BMI) [Ratio] 23.0 kg/m2 23.0 k g/m2 MEDENT ([facility]) Heart rate 89 /min 89 /min [facility] ([facility]) Respiratory rate 16 /min 16 /min MEDENT ( [facility]) Body temperature 97.1 [degF] 97.1 [degF] MEDENT ([facility]) Oxygen saturation in Arterial blood by Pulse oximetry 96 % 96 % [facility] ([facility]) Systolic blood pressure 212 mm[Hg] 212 mm[Hg] M EDENT ([facility], [facility]) Diastolic blood pressure 94 mm[Hg] 94 mm[Hg] MEDENT ([facility], [facility]) Heart rate 81 /min 81 /min MEDENT ([facility], [facility]) Respiratory rate 14 /min 14 /min [facility]) Oxygen saturation in Arterial blood by Pulse oximetry 99 % 99 % [facility] ([facility], [facility]) Body temperature 97.5 [degF] 97.5 [degF] MEDENT ([facility], [facility]) Body weight 100.00 [lb_av] 100.00 [lb_av] MEDEN T ([facility], [facility]) Body height 59 [in_i] 59 [in_i] [facility] 4'11" Body mass index (BMI) [Ratio] 20.2 kg/m2 20.2 k g/m2 [facility] Systolic blood pressure 124 mm[Hg] 124 mm[Hg] [facility] Diastolic blood pressure 80 mm[Hg] 80 mm[Hg] Heart rate 65 /min 65 /min [facility] Body height 149.9 cm 149.9 cm Body weight 48.535 kg 48.535 kg Body mass index (BMI) [Ratio] 21.61 kg/m2 21.61 kg/m2 Oxygen saturation in Arterial blood by Pulse oximetry 100 % 100 % Body height 57.6 [in_i] 57.6 [in_i] MEDENT ([facility]) 4'9.60" [place] body weight 100 [lb_av] 100 [lb_av] MEDEN T ([facility]) Body weight 107.50 [lb_av] 107.50 [lb_av] MEDEN T ([facility]) Systolic blood pressure 122 mm[Hg] 122 mm[Hg] EDENT ([facility]) Diastolic blood pressure 64 mm[Hg] 64 mm[Hg] MEDENT ([facility]) Body mass index (BMI) [Ratio] 22.8 kg/m2 22.8 k g/m2 MEDENT ([facility]) Heart rate 80 /min 80 /min MEDENT ([facility]) Respiratory rate 18 /min 18 /min [facility] Body temperature 98.5 [degF] 98.5 [degF] MEDENT ([facility]) Oxygen saturation in Arterial blood by Pulse oximetry 95 % 95 % [facility] Diastolic blood pressure 68 mm[Hg] 68 mm[Hg] eCW1 ([facility]) Body weight 109.4 [lb_av] 109.4 [lb_av] eCW1 ([facility]) Body height [in_i] eCW1 ([facility]) Body mass index (BMI) [Ratio] 22.09 kg/m2 22.09 kg/m2 eCW1 ([facility]) Systolic blood pressure 112 mm[Hg] 112 mm[Hg] e CW1 ([facility]) Systolic blood pressure 130 mm[Hg] 130 mm[Hg] M EDENT ([facility], ) Diastolic blood pressure 72 mm[Hg] 72 mm[Hg] MEDENT ([facility]) Heart rate 78 /min 78 /min [facility] ([facility]) Oxygen saturation in Arterial blood by Pulse oximetry 98 % 98 % [facility] ([facility]) Body temperature 96.7 [degF] 96.7 [degF] [facility] ([facility]) Body height 57 [in_i] 57 [in_i] [facility] ([facility]) 4'9" Body weight 105.00 [lb_av] 105.00 [lb_av] MEDEN T ([facility]) Body mass index (BMI) [Ratio] 22.7 kg/m2 22.7 k g/m2 [facility] ([facility]) [place] body weight 100 [lb_av] 100 [lb_av] MEDEN T ([facility]) Body weight 47.628 kg 47.628 kg [facility] ([facility]) Body surface area Derived from formula 1.37 m2 1.37 m2 MEDENT ([facility], ) Body weight 99.50 [lb_av] 99.50 [lb_av] MEDENT ([facility]) Diastolic blood pressure 70 mm[Hg] 70 mm[Hg] MEDENT ([facility]) Body mass index (BMI) [Ratio] 21.1 kg/m2 21.1 k g/m2 MEDENT ([facility]) Heart rate 91 /min 91 /min MEDENT ([facility]) Respiratory rate 18 /min 18 /min [facility] ( [facility]) Body temperature 96.7 [degF] 96.7 [degF] MEDENT ([facility]) [place] body weight 100 [lb_av] 100 [lb_av] MEDEN T ([facility]) Oxygen saturation in Arterial blood by Pulse oximetry 97 % 97 % [facility] Systolic blood pressure 158 mm[Hg] 158 mm[Hg] M EDENT ([facility]) Body height 57.6 [in_i] 57.6 [in_i] MEDENT ([facility]) 4'9.60" Body weight 100 [lb_av] 100 [lb_av] eCW1 ([facility]) Body height [in_i] eCW1 ([facility]) Body mass index (BMI) [Ratio] 20.20 kg/m2 20.20 kg/m2 eCW1 ([facility]) Systolic blood pressure 120 mm[Hg] 120 mm[Hg] e CW1 ([facility]) Diastolic blood pressure 72 mm[Hg] 72 mm[Hg] eCW1 ([facility]) Systolic blood pressure 102 mm[Hg] 102 mm[Hg] [facility] Diastolic blood pressure 56 mm[Hg] 56 mm[Hg] Heart rate 80 /min 80 /min [facility] Body height 149.9 cm 149.9 cm Body weight 44.906 kg 44.906 kg Body mass index (BMI) [Ratio] 20.00 kg/m2 20.00 kg/m2 Oxygen saturation in Arterial blood by Pulse oximetry 96 % 96 % Systolic blood pressure 112 mm[Hg] 112 mm[Hg] [facility] Diastolic blood pressure 60 mm[Hg] 60 mm[Hg] Body height 149.9 cm 149.9 cm Body weight 43.999 kg 43.999 kg Body mass index (BMI) [Ratio] 19.59 kg/m2 19.59 kg/m2 Body temperature 96.8 [degF] 96.8 [degF] MEDENT ([facility]) Body weight 97.00 [lb_av] 97.00 [lb_av] [facility] ([facility]) Heart rate 78 /min 78 /min [facility] ([facility]) Respiratory rate 18 /min 18 /min [facility] ( [facility]) Oxygen saturation in Arterial blood by Pulse oximetry 95 % 95 % [facility] ([facility]) [place] body weight 100 [lb_av] 100 [lb_av] MEDEN T ([facility]) Body mass index (BMI) [Ratio] 20.6 kg/m2 20.6 k g/m2 [facility] Systolic blood pressure 132 mm[Hg] 132 mm[Hg] M EDENT ([facility]) Diastolic blood pressure 64 mm[Hg] 64 mm[Hg] [facility] ([facility]) Body height 57.6 [in_i] 57.6 [in_i] [facility] ([facility]) 4'9.60" Systolic blood pressure 164 mm[Hg] 164 mm[Hg] [facility] Diastolic blood pressure 90 mm[Hg] 90 mm[Hg] Heart rate 81 /min 81 /min [facility] Body height 149.9 cm 149.9 cm Body weight 43.999 kg 43.999 kg Body mass index (BMI) [Ratio] 19.59 kg/m2 19.59 kg/m2 Oxygen saturation in Arterial blood by Pulse oximetry 93 % 93 % Respiratory rate 18 /min 18 /min MEDENT ( [facility]) Body height 57.6 [in_i] 57.6 [in_i] MEDENT ([facility]) 4'9.60" Systolic blood pressure 220 mm[Hg] 220 mm[Hg] M EDENT ([facility]) Diastolic blood pressure 93 mm[Hg] 93 mm[Hg] MEDENT ([facility]) Body weight 104.50 [lb_av] 104.50 [lb_av] MEDEN T ([facility]) Body mass index (BMI) [Ratio] 22.1 kg/m2 22.1 k g/m2 MEDENT ([facility]) Heart rate 88 /min 88 /min MEDENT ([facility]) Body temperature 98.2 [degF] 98.2 [degF] [facility] ([facility]) Oxygen saturation in Arterial blood by Pulse oximetry 95 % 95 % [facility] ([facility]) [place] body weight 100 [lb_av] 100 [lb_av] MEDEN T ([facility]) Body weight 105.0 [lb_av] 105.0 [lb_av] W1 ([facility]) Body height [in_i] eCW1 ([facility]) Body mass index (BMI) [Ratio] 21.21 kg/m2 21.21 kg/m2 eCW1 ([facility]) Systolic blood pressure 124 mm[Hg] 124 mm[Hg] e CW1 ([facility]) Diastolic blood pressure 78 mm[Hg] 78 mm[Hg] eCW1 ([facility]) Heart rate 71 /min 71 /min MEDENT ([facility]) Systolic blood pressure 137 mm[Hg] 137 mm[Hg] M EDENT ([facility]) lay 142/82, sit 160/90, standing 168/90 Diastolic blood pressure 90 mm[Hg] 90 mm[Hg] [facility] ([facility]) lay 142/82, sit 160/90, standing 168/90 Body height 57.6 [in_i] 57.6 [in_i] [facility] ([facility]) 4'9.60" Body weight 103.00 [lb_av] 103.00 [lb_av] [facility]ER[facility] ([facility]) Body mass index (BMI) [Ratio] 21.8 kg/m2 21.8 k g/m2 [facility] ([facility]) Respiratory rate 16 /min 16 /min [facility] ( [facility]) Body temperature 97.3 [degF] 97.3 [degF] [facility] ([facility]) Oxygen saturation in Arterial blood by Pulse oximetry 98 % 98 % [facility] ([facility]) [place] body weight 100 [lb_av] 100 [lb_av] FER[facility] ([facility]) Patient Treatment Plan of Care Planned Activity Planned Date Details Description Data Source (s) Losartan Potassium 100 MG Oral Tablet 02/02/2021 12:00:00 AM EDT Furosemide 40 MG Oral Tablet 01/28/2021 12:00:00 AM EDT rivaroxaban 20 MG Oral Tablet 01/27/2021 12:00:00 AM EDT normal saline flush 0.9 % injection 3 mL 01/26/2021 03:00:00 PM EDT normal saline flush 0.9 % injection 3 mL 01/26/2021 02:00:00 PM EDT normal saline flush 0.9 % injection 3 mL 01/26/2021 02:00:00 PM EDT Nitroglycerin 0.4 MG Sublingual Tablet 01/26/2021 12:04:00 PM EDT Acetaminophen 325 MG Oral Tablet 01/26/2021 12:04:00 PM EDT clopidogrel 75 MG Oral Tablet 01/18/2021 12:00:00 AM EDT Labetalol hydrochloride 100 MG Oral Tablet 01/13/2021 12:00:00 AM E DT Labetalol hydrochloride 100 MG Oral Tablet 01/08/2021 12:00:00 AM E DT Amylases 81022 UNT / Endopeptidases 6300 0 UNT / Lipase 53514 UNT Delayed Release Oral Capsule [Zenpep] 12/17/2020 12:00:00 AM EDT Digestive Enzymes (LIPASE CONCENTRATE-HP PO) 12/16/2020 12:00:00 AM EDT Furosemide 20 MG Oral Tablet 06/25/2020 12:00:00 AM EST Labetalol hydrochloride 100 MG Oral Tablet 06/25/2020 12:00:00 AM E [facility] Levothyroxine Sodium 0.075 MG Oral Tablet 04/02/2020 12:00:00 AM [facility] Chlorthalidone 25 MG Oral Tablet 04/02/2020 12:00:00 AM EST Amlodipine 10 MG Oral Tablet 04/02/2020 12:00:00 AM EST Furosemide 20 MG Oral Tablet 04/02/2020 12:00:00 AM EST Labetalol hydrochloride 100 MG Oral Tablet 04/02/2020 12:00:00 AM E [facility] Losartan Potassium 50 MG Oral Tablet 04/02/2020 12:00:00 AM EST Chlorthalidone 25 MG Oral Tablet 03/25/2020 12:00:00 AM EST Amlodipine 10 MG Oral Tablet 03/25/2020 12:00:00 AM EST Levothyroxine Sodium 0.075 MG Oral Tablet 03/20/2020 12:00:00 AM [facility] Amlodipine 2.5 MG Oral Tablet 03/20/2020 12:00:00 AM EST Mupirocin 0.02 MG/MG Topical Ointment 03/05/2020 12:00:00 AM EST Mupirocin 0.02 MG/MG Topical Ointment 03/05/2020 12:00:00 AM EST [email or web address] ([facility] Mupirocin 0.02 MG/MG Topical Ointment 03/05/2020 12:00:00 AM EST [email or web address] ([facility]) Mupirocin 0.02 MG/MG Topical Ointment 03/05/2020 12:00:00 AM EST [email or web address] ([facility]) doxycycline hyclate 100 MG Oral Capsule 03/03/2020 12:00:00 AM EST [email or web address] ([facility]) doxycycline hyclate 100 MG Oral Capsule 03/03/2020 12:00:00 AM EST [email or web address] ([facility]) doxycycline hyclate 100 MG Oral Capsule 03/03/2020 12:00:00 AM EST [email or web address] ([facility]) doxycycline hyclate 100 MG Oral Capsule 03/03/2020 12:00:00 AM EST [facility] ([facility]) rivaroxaban 20 MG Oral Tablet 10/06/2019 12:00:00 AM EDT Levothyroxine Sodium 0.05 MG Oral Tablet 08/05/2019 12:00:00 AM EDT Labetalol hydrochloride 100 MG Oral Tablet 04/23/2019 12:00:00 AM E [facility] Losartan Potassium 50 MG Oral Tablet 02/22/2019 12:00:00 AM EDT rivaroxaban 20 MG Oral Tablet Losartan Potassium 50 MG Oral Tablet ferrous sulfate 325 MG Oral Tablet Labetalol hydrochloride 100 MG Oral Tablet Furosemide 20 MG Oral Tablet Furosemide 40 MG Oral Tablet
[2021-03-04] MEDS ORDERED: CETACAINE SPRAY 5GM As Ordered ONE (07:15)
[2021-03-04] MEDS ORDERED: LIDOCAINE 2% 100MG/5ML SDV (FOR ANES.) As Ordered ONE (07:16)
[2021-03-04] MEDS ORDERED: propofoL 200 MG/20 ML VIAL As Ordered ONE (07:16)
[2021-03-04] MEDS ORDERED: LIDOCAINE VISCOUS 2% SOLN 15ML UDC As Ordered ONE (07:16)
[2021-03-04] MEDS ORDERED: fentaNYL 100 MCG/2 ML INJECTION (J3010) As Ordered ONE (07:16)
[2021-03-04] MEDS ORDERED: ePHEDrine SULFATE 25 MG/5 ML(5MG/ML) SYRINGE As Ordered ONE (07:55)
[2021-03-04] MEDS ORDERED: LR 1,000 ML IV SCH (08:35)
[2021-03-04] MEDS ORDERED: ONDANSETRON 4MG/2ML VIAL IV PRN (08:35)
[2021-03-04] MEDS ORDERED: oxyCODONE 5MG TAB PO PRN (08:35)
[2021-03-04 08:40] VITALS: BP 127/60
--- NOTE | 2021-03-05 09:05 | T-ECHO ---
TRANSESOPHAGEAL ECHO DATE: 03/04/2021 DIAGNOSIS: Mitral insufficiency and aortic stenosis. PROCEDURE: Transesophageal echocardiogram. ANESTHESIA: Anesthesiology provided by KARRIE DE JESUS CRNA HISTORY: Mrs. Magana is a pleasant 80-year-old female who has known combined valvular disease. She is quite symptomatic with progressive exertional dyspnea which lead to recent catheterization. It confirmed presence of preserved systolic function, no obstructive coronary artery disease, and approximately moderate aortic stenosis. There was suggestion of possibly even severe mitral insufficiency and consequently transesophageal echocardiogram was requested to evaluate principally mitral valve. The nature of the procedure and potential risks and complications were discussed with the patient on an outpatient basis. She did sign appropriate consent. I talked to her again on the morning before the procedure and explained the ramification again. She had prior transesophageal echocardiogram and consequently was quite familiar with it. PROCEDURE NOTE; The procedure was performed in the operating room after appropriate timeout was taken and all monitors were applied. Her posterior pharynx was anesthetized using Cetecaine spray and viscous lidocaine. She was then positioned in the left lateral decubitus position. After anesthesiology administered sedation, a probe was introduced into the esophagus and later into the stomach without difficulty. After appropriate images were taken, it was withdrawn. There were no immediate complications and the patient tolerated the procedure well. FINDINGS: The left ventricle has normal systolic function with overall estimated EF around 60-65%. I did not appreciate any wall motion abnormalities. The right ventricle was also normal size and systolic function. The left atrium is at least moderately enlarged. The right atrium appeared normal. Mitral valve exhibited significant degenerative changes with mitral annular calcifications, thickening of mitral leaflets, and also some degree of calcifications in chordal apparatus. By color Doppler imaging though, there is only moderate mitral insufficiency and no mitral stenosis. Aortic valve is heavily calcified and there is severe restriction of cusp mobility. Based on the 2-D imaging, I would assume severe aortic stenosis. I was not able to obtain proper alignment for gradient measurements, probably due to prior bariatric surgery, but we got a few images from transthoracic study that confirmed mean gradient 24 mmHg which is identical to findings during cardiac catheterization. No aortic insufficiency was seen. Tricuspid valve was structurally normal. Trace insufficiency is noted. The quality of the aorta was not sufficient to accurately estimate pulmonary artery pressure. Pulmonic valve was relatively poorly visualized, but grossly appears normal. Trivial insufficiency is noted. There is a normal-appearing left atrial appendage without visible thrombus. There is normal flow in both left-sided and right-sided pulmonary veins. The atrial septum is intact based on 2D imaging and color Doppler imaging. There is relatively mild atherosclerosis in the ascending aorta, aortic arch, and visualized segment of the descending aorta without any visible thrombi or ulcers. CONCLUSIONS: 1. Preserved left ventricular systolic function. 2. Preserved right ventricular systolic function. 3. Heavily calcified aortic valve with likely moderate aortic stenosis and no insufficiency. 4. Degenerative abnormalities of mitral valve resulting in moderate mitral insufficiency. 5. Left atrial appendage free of thrombi. 6. Normal flow in both right and left-sided pulmonary veins. 7. Mild atherosclerosis thoracic aorta. COMMENTS: The patient will be continued with medical management. We will arrange for outpatient followup within the next week or two. Her chronic medications will be continued. VINEET
== END 2021-03-04 10:05 | disposition home or self-care (01) ==
LOC: M SDC 06:08
PROVIDERS: ATTEND Internal Medicine Cardiovascular Disease
DX: I34.0 Nonrheumatic mitral (valve) insufficiency (principal); I35.0 Nonrheumatic aortic (valve) stenosis; I70.0 Atherosclerosis of aorta; I48.91 Unspecified atrial fibrillation; Z95.5 Presence of coronary angioplasty implant and graft; I25.2 Old myocardial infarction; I10 Essential (primary) hypertension; E03.9 Hypothyroidism, unspecified; Z85.09 Personal history of malignant neoplasm of other digestive organs; D64.9 Anemia, unspecified; Z86.718 Personal history of other venous thrombosis and embolism; M47.9 Spondylosis, unspecified; Z86.73 Personal history of transient ischemic attack (TIA), and cerebral infarction without residual deficits; J45.909 Unspecified asthma, uncomplicated; R32 Unspecified urinary incontinence; R06.02 Shortness of breath; Z92.21 Personal history of antineoplastic chemotherapy; Z92.3 Personal history of irradiation; Z85.3 Personal history of malignant neoplasm of breast; Z87.891 Personal history of nicotine dependence; Z91.048 Other nonmedicinal substance allergy status; Z88.8 Allergy status to other drugs, medicaments and biological substances; Z88.5 Allergy status to narcotic agent; Z79.899 Other long term (current) drug therapy; Z79.01 Long term (current) use of anticoagulants; Z79.51 Long term (current) use of inhaled steroids
CPT/HCPCS: 93312; 93320; 93325; J3010

== ENCOUNTER → 2021-04-15 | Outpatient (CLI) | payer MEDICARE, OTHER ==
[~2021-04-15] MED LIST changes: -LR 1,000 ML IV ONE
--- NOTE | 2021-04-15 12:20 | REP ---
INDICATION: EPIGASTRIC PAIN TECHNIQUE: Real time B-mode golden scale ultrasound examination using curved array transducer. FINDINGS: Liver demonstrates diffuse hepatosteatosis. Spleen and visualized pancreas are essentially normal. Gallbladder demonstrates multiple stones and sludge along with positive sonographic Aragon's sign as well as dilated common bile duct to 12.4 mm with evidence for choledocholithiasis. The right kidney measures 10.5 x 5.3 x 4.0 cm with chronic age-related changes and suggestions for partial duplication. No hydronephrosis. Left kidney demonstrates mild atrophy and measures 8.6 x 4.1 x 4.9 cm with chronic age-related changes. No ascites noted. IMPRESSION: 1. Findings suggest acute cholecystitis as well as choledocholithiasis with obstructing gallstones in the common bile duct. 2. Hepatosteatosis. 3. Chronic renal changes. <Electronically signed by Enrrique Lepe > 04/15/21 [id number]
== END ==
LOC: M RAD 10:57
PROVIDERS: ATTEND Internal Medicine Gastroenterology
DX: R10.13 Epigastric pain (principal); K76.0 Fatty (change of) liver, not elsewhere classified; K80.20 Calculus of gallbladder without cholecystitis without obstruction

== ENCOUNTER 2021-04-27 15:24 | Emergency (ER) | payer MEDICARE, OTHER ==
[~2021-04-27] VITALS: Ht 142.2 cm; Wt 45.5 kg
[2021-04-27 16:30] LABS: BASO % 0.5 % (0.0-1.0); EOS # 0.3 10^3/uL (0.0-0.5); EOS % 5.9 % (0.0-3.0); HEMATOCRIT 31.6 % (36.0-47.0); LYMPH # 0.8 10^3/uL (1.5-5.0); MEAN CORPUSCULAR HEMOGLOBIN 28.1 pg (27.0-33.0); MEAN CORPUSCULAR HGB CONC 31.6 g/dl (32.0-36.5); MEAN CORPUSCULAR VOLUME 88.8 fl (80.0-96.0); MONO # 0.3 10^3/uL (0.0-0.8); MONO % 5.4 % (2.0-8.0); NEUTROPHILS % 72.8 % (36.0-66.0); PLATELET COUNT, AUTOMATED 349 10^3/uL (150-450); RED BLOOD COUNT 3.56 10^6/uL (4.00-5.40); WHITE BLOOD COUNT 5.6 10^3/uL (4.0-10.0)
--- NOTE | 2021-04-27 16:32 | REP ---
INDICATION: Abdominal Pain. COMPARISON: 04/19/2016 TECHNIQUE: Supine and upright views of the abdomen with frontal view of the chest FINDINGS: The frontal view the chest shows large patchy opacities throughout the left lung with near complete opacification. This has developed since the latest prior chest x-ray of 02/27/2021. There is compensatory hyperexpansion of the right lung. There is no evidence of free subdiaphragmatic air. The intestinal gas pattern is nonspecific. There is a surgical drainage tube seen in the mid upper abdomen. The only history given to me is abdominal pain. IMPRESSION: 1. Abnormal lung field findings as described above. Chest CT with contrast is recommended. 2. Nonspecific findings involving the abdomen as described above. Contrast-enhanced CT scan of the abdomen and pelvis is recommended. <Electronically signed by Mathew Gonsalez > 04/27/21 [id number]
[2021-04-27 16:40] LABS: INR 1.29; PROTHROMBIN TIME 16.5 SECONDS (12.7-14.5)
[2021-04-27 16:41] LABS: PARTIAL THROMBOPLASTIN TIME 39.7 SECONDS (25.9-37.0)
[2021-04-27 16:55] LABS: ALBUMIN 2.4 GM/DL (3.2-5.2); ALT/SGPT 13 U/L (12-78); BILIRUBIN,DIRECT < 0.1 MG/DL (0.0-0.2); BILIRUBIN,TOTAL 0.4 MG/DL (0.2-1.0); BLOOD UREA NITROGEN 17 MG/DL (7-18); CALCIUM LEVEL 8.5 MG/DL (8.8-10.2); CARBON DIOXIDE LEVEL 30 MEQ/L (21-32); CHLORIDE LEVEL 105 MEQ/L (98-107); CREATININE FOR GFR 0.66 MG/DL (0.55-1.30); GLOMERULAR FILTRATION RATE > 60.0 (>32); GLUCOSE, FASTING 102 MG/DL (70-100); LIPASE 14 U/L (73-393); POTASSIUM SERUM 3.9 MEQ/L (3.5-5.1); SODIUM LEVEL 140 MEQ/L (136-145)
[2021-04-27] MEDS ORDERED: ISOVUE-370 76% 100ML VIAL As Ordered ONE (17:07)
--- NOTE | 2021-04-27 18:05 | REPVR ---
PROCEDURE INFORMATION: Exam: CT Chest With Contrast; Diagnostic Exam date and time: 04/27/2021 5:22 PM Age: 80 years old Clinical indication: Other: Generalized pain; Crystal/hernia repair 04/21 with drain TECHNIQUE: Imaging protocol: Diagnostic computed tomography of the chest with contrast. Radiation optimization: All CT scans at this facility use at least one of these dose optimization techniques: automated exposure control; mA and/or kV adjustment per patient size (includes targeted exams where dose is matched to clinical indication); or iterative reconstruction. Contrast material: ISOVUE 370; Contrast volume: 100 ml; Contrast route: INTRAVENOUS (IV); COMPARISON: CT Chest without contrast 04/22/2019 11:25 AM FINDINGS: Lungs: Left hemithorax volume loss with shift of the mediastinum to the left. Left mainstem bronchus, lingular and lower lobe segmental bronchial filling process with atelectasis accounting for the left hemithorax volume loss. No concerning parenchymal lung mass. Right lung shows minimal atelectasis and no other deformity. Pleural spaces: Moderately large right and small left dependent transudate density pleural effusions. No peripherally enhancing or obviously loculated pleural fluid. No pneumothorax. Heart: No overt cardiac enlargement or abnormal volume of pericardial fluid. Pulmonary arteries: Central pulmonary arteries show no intraluminal defect suggestive of clot. Pulmonary vascular/interstitial pattern does not suggest active pulmonary edema. Aorta: Thoracic aorta is ectatic and atherosclerotic. No focal aneurysm or dissection. Lymph nodes: Small, nonspecific mediastinal nodes are present. Intraperitoneal space: Minimal pneumoperitoneum and pneumobilia consistent with the recent surgical procedure. Bones/joints: Old appearing thoracolumbar spinal insufficiency fractures. IMPRESSION: 1. Airway filling, left mainstem, lingular and left lower lobe bronchi with atelectasis/collapse and volume loss. This may be secondary to aspiration. 2. Bilateral pleural effusions, right larger than left layering dependently with no evidence of pulmonary edema. Electronically signed by: Magno Nieto On 04/27/2021 18:05:29 PM
--- NOTE | 2021-04-27 18:19 | REPVR ---
PROCEDURE INFORMATION: Exam: CT Abdomen And Pelvis With Contrast Exam date and time: 04/27/2021 5:22 PM Age: 80 years old Clinical indication: Other: Generalized pain; Crystal/hernia repair 04/21 with drain TECHNIQUE: Imaging protocol: Computed tomography of the abdomen and pelvis with contrast. Radiation optimization: All CT scans at this facility use at least one of these dose optimization techniques: automated exposure control; mA and/or kV adjustment per patient size (includes targeted exams where dose is matched to clinical indication); or iterative reconstruction. Contrast material: ISOVUE 370; Contrast volume: 100 ml; Contrast route: INTRAVENOUS (IV); COMPARISON: CT ANGIO ABD/PEL 10/09/2020 7:12 PM FINDINGS: Tubes, catheters and devices: Surgical drain is present in the gallbladder fossa and alexandr hepatis region with no residual fluid or fluid collection around the drain. No hematoma. Liver: Liver appears normal with no focal abnormality. Gallbladder and bile ducts: Gallbladder is surgically absent. Pancreas: Pancreas is atrophic and fatty infiltrated. Spleen: Spleen appears homogeneous without focal mass. Adrenal glands: Adrenal glands are normal in appearance. Kidneys and ureters: Kidneys appear normal, with no stone, solid mass or hydronephrosis. 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 No evidence of small bowel obstruction. Large volume of stool is seen throughout the colon. Suggestion of long segment mural edema involving the descending and proximal sigmoid colon which may suggest colitis. The distal sigmoid cannot be visualized because of orthopedic hardware artifact. Appendix: Appendix is not seen. No RLQ inflammation to suggest appendicitis. Intraperitoneal space: Minimal residual pneumoperitoneum from the surgery. No organized abdominal or pelvic fluid collection. Vasculature: Atherosclerotic change present in the aorta, without aneurysm. Main portal and splenic veins enhance normally. Lymph nodes: . No enlarged lymph nodes. Urinary bladder: Bladder is not visualized. Reproductive: Female reproductive organs are not visualized. Bones/joints: Multiple thoracolumbar insufficiency fractures are present, none of which have particularly acute margins. Degenerative changes are seen in the SI joints and bilateral hip arthroplasty changes are present. Old right obturator ring deformities and left artery during deformities. Soft tissues: Pneumobilia is consistent with sphincterotomy. No biliary obstruction. Subcutaneous fluid collection deep to midline skin doris is present, measuring 11 cm transverse, 2.5 cm AP and 6 cm craniocaudal, which could represent an abscess, seroma or organizing hematoma. IMPRESSION: 1. Anterior midline subcutaneous fluid collection concerning for abscess, superficial to the rectus fascia. 11 x 2.5 x 6 cm 2. Surgical drain in the alexandr hepatis without fluid or fluid collection around the catheter at this point. 3. Appearance of the descending colon over a long segment suggesting the possibility of colitis. No obstruction. Electronically signed by: Magno Nieto On 04/27/2021 18:18:23 PM
[2021-04-27] MEDS ORDERED: PIPERACILLIN/TAZOBACTAM SOD 3.375 GM in D5W MINI-BAG PLUS 50 ML IV ONE (18:30)
[2021-04-27 18:42] LABS: RSV AMPLIFICATION NEGATIVE (NEGATIVE)
[2021-04-27 20:45] VITALS: BP 151/70
--- NOTE | 2021-04-28 11:14 | ED PDOC ---
Post-Departure Follow-Up ct chest faxed to dr lees and dr bruce for fu Rain Mcbride MD Apr 28, 2021 11:14
--- NOTE | 2021-04-28 19:33 | ECGEPIP ---
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
== END 2021-04-27 21:00 | disposition home or self-care (01) ==
LOC: EDBD 15:24 → M ED 15:24
DX: R53.1 Weakness (principal); K91.872 Postprocedural seroma of a digestive system organ or structure following a digestive system procedure; I10 Essential (primary) hypertension; D61.818 Other pancytopenia; Z86.73 Personal history of transient ischemic attack (TIA), and cerebral infarction without residual deficits; Z85.3 Personal history of malignant neoplasm of breast; Z85.028 Personal history of other malignant neoplasm of stomach; Z79.899 Other long term (current) drug therapy; Z79.01 Long term (current) use of anticoagulants; Z88.5 Allergy status to narcotic agent; Z88.8 Allergy status to other drugs, medicaments and biological substances; Z91.048 Other nonmedicinal substance allergy status
CPT/HCPCS: 71260; 74021; 74177; 80048; 80076; 83605; 83690; 85025; 85610; 85730; 86850; 86870; 86900; 86901; 87631; 93005; 93041; 99285; J2543; Q9967

== ENCOUNTER 2021-06-17 10:40 | Inpatient (IN) | payer MEDICARE, OTHER ==
[~2021-06-17] VITALS: Ht 149.9 cm; Wt 41.8 kg
[~2021-06-17 10:40] MED LIST changes: -FLUC100T PO; +FLUC100T3 PO; -LEVO250T12 PO; +LEVO250T3 PO; -LEVO500T3 PO; +LEVO500T4 PO; -LISI-898 PO; +LISI5TAB11 PO; +LOSA100T45 PO; -LOSA100T50 PO; +LOSA50TA28 PO; -LOSA50TA88 PO; +OMEP-173 PO; -OMEP-218 PO; -OMEP-221 PO; +OMEP40CA5 PO
[2021-06-17] MEDS ORDERED: ONDANSETRON 4MG/2ML VIAL IV ONE (14:20)
[2021-06-17] MEDS ORDERED: HOME MED LIST COMPLETE! XX SCH (15:00)
[2021-06-17] MEDS: MORPHINE 4 MG/ML 1ML VIAL/SYRINGE (J2270) IV PRN ×3 (15:18→21:57)
[2021-06-17 15:34] LABS: BASO # 0.1 10^3/uL (0.0-0.2); BASO % 0.7 % (0.0-1.0); EOS # 0.6 10^3/uL (0.0-0.5); EOS % 8.2 % (0.0-3.0); HEMATOCRIT 29.9 % (36.0-47.0); HEMOGLOBIN 9.4 g/dl (12.0-15.5); LYMPH # 1.4 10^3/uL (1.5-5.0); LYMPH % 19.5 % (24.0-44.0); MEAN CORPUSCULAR HEMOGLOBIN 28.2 pg (27.0-33.0); MEAN CORPUSCULAR HGB CONC 31.4 g/dl (32.0-36.5); MEAN CORPUSCULAR VOLUME 89.8 fl (80.0-96.0); MONO # 0.5 10^3/uL (0.0-0.8); MONO % 7.6 % (2.0-8.0); NEUTROPHILS # 4.4 10^3/uL (1.5-8.5); NEUTROPHILS % 63.7 % (36.0-66.0); PLATELET COUNT, AUTOMATED 241 10^3/uL (150-450); RED BLOOD COUNT 3.33 10^6/uL (4.00-5.40); WHITE BLOOD COUNT 6.9 10^3/uL (4.0-10.0)
[2021-06-17 15:45] LABS: INR 2.15; PROTHROMBIN TIME 24.4 SECONDS (12.7-14.5)
[2021-06-17 15:57] LABS: ALBUMIN 2.4 GM/DL (3.2-5.2); ALT/SGPT 27 U/L (12-78); BILIRUBIN,TOTAL 0.3 MG/DL (0.2-1.0); BLOOD UREA NITROGEN 16 MG/DL (7-18); CALCIUM LEVEL 7.9 MG/DL (8.8-10.2); CARBON DIOXIDE LEVEL 26 MEQ/L (21-32); CHLORIDE LEVEL 111 MEQ/L (98-107); CREATININE FOR GFR 0.82 MG/DL (0.55-1.30); GLOMERULAR FILTRATION RATE > 60.0 (>32); GLUCOSE, FASTING 82 MG/DL (70-100); POTASSIUM SERUM 3.6 MEQ/L (3.5-5.1); SODIUM LEVEL 145 MEQ/L (136-145); TOTAL PROTEIN 6.1 GM/DL (6.4-8.2)
[2021-06-17 16:21] LABS: RSV AMPLIFICATION NEGATIVE (NEGATIVE)
[2021-06-17] MEDS ORDERED: MOM 30ML SUSPENSION UDC PO PRN (17:45)
[2021-06-17] MEDS ORDERED: MAALOX 30 ML SUSP *UDC PO PRN (17:45)
[2021-06-17] MEDS ORDERED: SYMBICORT 160/4.5MCG INHALER 6GM INH PRN (17:55)
[2021-06-17 20:25] VITALS: BP 134/64
[2021-06-17] MEDS ORDERED: MORPHINE 2 MG/ML 1ML VIAL (J2270) IV PRN (21:15)
[2021-06-17] MEDS: CREON-24 CAPSULE PO SCH (21:56)
[2021-06-17] MEDS: LABETALOL 100MG TAB PO SCH (21:56)
[2021-06-17] MEDS: ACETAMINOPHEN TAB 650MG DOSE (2X325MG) PO PRN (22:37)
[2021-06-18] VITALS (9 sets, daily range): BP systolic 113–130; BP diastolic 46–94
[2021-06-18] MEDS: MORPHINE 4 MG/ML 1ML VIAL/SYRINGE (J2270) IV PRN (05:27)
[2021-06-18] MEDS: LEVOTHYROXINE 75MCG TABLET (0.075MG) PO SCH (05:31)
[2021-06-18 06:23] LABS: EOS # 0.5 10^3/uL (0.0-0.5); EOS % 11.2 % (0.0-3.0); HEMATOCRIT 24.6 % (36.0-47.0); HEMOGLOBIN 7.5 g/dl (12.0-15.5); LYMPH # 1.1 10^3/uL (1.5-5.0); LYMPH % 26.6 % (24.0-44.0); MEAN CORPUSCULAR HEMOGLOBIN 27.9 pg (27.0-33.0); MEAN CORPUSCULAR HGB CONC 30.5 g/dl (32.0-36.5); MEAN CORPUSCULAR VOLUME 91.4 fl (80.0-96.0); MONO # 0.4 10^3/uL (0.0-0.8); MONO % 9.8 % (2.0-8.0); NEUTROPHILS # 2.1 10^3/uL (1.5-8.5); NEUTROPHILS % 51.2 % (36.0-66.0); PLATELET COUNT, AUTOMATED 196 10^3/uL (150-450); RED BLOOD COUNT 2.69 10^6/uL (4.00-5.40); WHITE BLOOD COUNT 4.2 10^3/uL (4.0-10.0)
[2021-06-18 06:43] LABS: BLOOD UREA NITROGEN 16 MG/DL (7-18); CALCIUM LEVEL 7.5 MG/DL (8.8-10.2); CARBON DIOXIDE LEVEL 27 MEQ/L (21-32); CHLORIDE LEVEL 111 MEQ/L (98-107); CREATININE FOR GFR 0.69 MG/DL (0.55-1.30); GLOMERULAR FILTRATION RATE > 60.0 (>32); GLUCOSE, FASTING 75 MG/DL (70-100); MAGNESIUM LEVEL 1.9 MG/DL (1.8-2.4); POTASSIUM SERUM 3.4 MEQ/L (3.5-5.1); SODIUM LEVEL 144 MEQ/L (136-145)
[2021-06-18] MEDS ORDERED: oxyCODONE 5MG TAB PO PRN (07:55)
[2021-06-18] MEDS ORDERED: ISOVUE-370 76% 100ML VIAL As Ordered ONE (08:21)
[2021-06-18] MEDS: OMEPRAZOLE 20MG CAP PO SCH (11:15)
[2021-06-18] MEDS: ACETAMINOPHEN TAB 650MG DOSE (2X325MG) PO PRN ×2 (11:15→16:38)
[2021-06-18] MEDS: CREON-24 CAPSULE PO SCH ×3 (11:15→18:18)
[2021-06-18] MEDS: LOSARTAN 50MG TABLET PO SCH (11:20)
[2021-06-18] MEDS: LABETALOL 100MG TAB PO SCH ×2 (11:21→20:41)
[2021-06-18] MEDS: ERYTHROMYCIN OPHTH OINT OD SCH (20:42)
[2021-06-18 22:13] LABS: HEMATOCRIT 27.9 % (36.0-47.0); HEMOGLOBIN 8.8 g/dl (12.0-15.5)
[2021-06-19] MEDS: LEVOTHYROXINE 75MCG TABLET (0.075MG) PO SCH (05:10)
[2021-06-19 06:00] VITALS: BP 144/66
[2021-06-19 07:11] LABS: BASO % 0.7 % (0.0-1.0); EOS # 0.4 10^3/uL (0.0-0.5); EOS % 9.5 % (0.0-3.0); HEMATOCRIT 29.5 % (36.0-47.0); HEMOGLOBIN 9.3 g/dl (12.0-15.5); LYMPH # 0.8 10^3/uL (1.5-5.0); LYMPH % 17.8 % (24.0-44.0); MEAN CORPUSCULAR HEMOGLOBIN 28.4 pg (27.0-33.0); MEAN CORPUSCULAR HGB CONC 31.5 g/dl (32.0-36.5); MEAN CORPUSCULAR VOLUME 89.9 fl (80.0-96.0); MONO # 0.4 10^3/uL (0.0-0.8); MONO % 8.4 % (2.0-8.0); NEUTROPHILS # 2.8 10^3/uL (1.5-8.5); NEUTROPHILS % 63.4 % (36.0-66.0); PLATELET COUNT, AUTOMATED 186 10^3/uL (150-450); RED BLOOD COUNT 3.28 10^6/uL (4.00-5.40); WHITE BLOOD COUNT 4.4 10^3/uL (4.0-10.0)
[2021-06-19 07:30] LABS: BLOOD UREA NITROGEN 17 MG/DL (7-18); CALCIUM LEVEL 7.6 MG/DL (8.8-10.2); CARBON DIOXIDE LEVEL 27 MEQ/L (21-32); CHLORIDE LEVEL 110 MEQ/L (98-107); CREATININE FOR GFR 0.68 MG/DL (0.55-1.30); GLOMERULAR FILTRATION RATE > 60.0 (>32); GLUCOSE, FASTING 79 MG/DL (70-100); POTASSIUM SERUM 3.4 MEQ/L (3.5-5.1); SODIUM LEVEL 142 MEQ/L (136-145)
[2021-06-19] MEDS: LOSARTAN 50MG TABLET PO SCH (08:30)
[2021-06-19] MEDS: OMEPRAZOLE 20MG CAP PO SCH (08:30)
[2021-06-19] MEDS: LABETALOL 100MG TAB PO SCH ×2 (08:30→21:57)
[2021-06-19] MEDS: CREON-24 CAPSULE PO SCH ×3 (08:30→18:01)
[2021-06-19] MEDS: ERYTHROMYCIN OPHTH OINT OD SCH ×3 (08:31→21:57)
[2021-06-19] MEDS ORDERED: POTASSIUM CHLORIDE 10MEQ SR TABLET PO ONE (09:00)
[2021-06-19] MEDS: MORPHINE 4 MG/ML 1ML VIAL/SYRINGE (J2270) IV PRN (12:01)
[2021-06-19] MEDS: FUROSEMIDE 20 MG TAB PO SCH (13:02)
[2021-06-19 14:00] VITALS: BP 139/53
[2021-06-19] MEDS: RIVAROXABAN 15 MG TAB (XARELTO) PO SCH (14:21)
[2021-06-19] MEDS: ACETAMINOPHEN TAB 650MG DOSE (2X325MG) PO PRN (18:02)
[2021-06-19 22:00] VITALS: BP 128/52
[2021-06-20] MEDS: LEVOTHYROXINE 75MCG TABLET (0.075MG) PO SCH (05:26)
[2021-06-20 06:00] VITALS: BP 142/62
[2021-06-20 06:38] LABS: BASO # 0.1 10^3/uL (0.0-0.2); BASO % 1.2 % (0.0-1.0); EOS # 0.7 10^3/uL (0.0-0.5); EOS % 15.2 % (0.0-3.0); HEMATOCRIT 31.2 % (36.0-47.0); HEMOGLOBIN 9.8 g/dl (12.0-15.5); LYMPH # 1.1 10^3/uL (1.5-5.0); LYMPH % 26.7 % (24.0-44.0); MEAN CORPUSCULAR HEMOGLOBIN 28.1 pg (27.0-33.0); MEAN CORPUSCULAR HGB CONC 31.4 g/dl (32.0-36.5); MEAN CORPUSCULAR VOLUME 89.4 fl (80.0-96.0); MONO # 0.3 10^3/uL (0.0-0.8); MONO % 7.7 % (2.0-8.0); NEUTROPHILS # 2.1 10^3/uL (1.5-8.5); PLATELET COUNT, AUTOMATED 207 10^3/uL (150-450); RED BLOOD COUNT 3.49 10^6/uL (4.00-5.40); WHITE BLOOD COUNT 4.3 10^3/uL (4.0-10.0)
[2021-06-20 07:05] LABS: BLOOD UREA NITROGEN 13 MG/DL (7-18); CALCIUM LEVEL 7.6 MG/DL (8.8-10.2); CARBON DIOXIDE LEVEL 27 MEQ/L (21-32); CHLORIDE LEVEL 111 MEQ/L (98-107); GLOMERULAR FILTRATION RATE > 60.0 (>32); GLUCOSE, FASTING 74 MG/DL (70-100); MAGNESIUM LEVEL 1.9 MG/DL (1.8-2.4); POTASSIUM SERUM 3.7 MEQ/L (3.5-5.1); SODIUM LEVEL 144 MEQ/L (136-145)
[2021-06-20] MEDS: CREON-24 CAPSULE PO SCH ×3 (08:19→18:04)
[2021-06-20] MEDS: LOSARTAN 50MG TABLET PO SCH (08:19)
[2021-06-20] MEDS: OMEPRAZOLE 20MG CAP PO SCH (08:19)
[2021-06-20] MEDS: ERYTHROMYCIN OPHTH OINT OD SCH ×3 (08:20→20:48)
[2021-06-20] MEDS: LABETALOL 100MG TAB PO SCH ×2 (08:20→20:49)
[2021-06-20] MEDS: RIVAROXABAN 15 MG TAB (XARELTO) PO SCH (08:20)
[2021-06-20] MEDS: FUROSEMIDE 20 MG TAB PO SCH (08:20)
[2021-06-20 14:00] VITALS: BP 130/62
[2021-06-20] MEDS: ACETAMINOPHEN TAB 650MG DOSE (2X325MG) PO PRN (16:37)
[2021-06-20 22:00] VITALS: BP 130/61
[2021-06-21] MEDS: LEVOTHYROXINE 75MCG TABLET (0.075MG) PO SCH (05:14)
[2021-06-21 06:00] VITALS: BP 159/68
[2021-06-21 06:27] LABS: BASO # 0.1 10^3/uL (0.0-0.2); BASO % 1.2 % (0.0-1.0); EOS # 0.6 10^3/uL (0.0-0.5); EOS % 14.8 % (0.0-3.0); HEMATOCRIT 30.2 % (36.0-47.0); HEMOGLOBIN 9.4 g/dl (12.0-15.5); LYMPH # 1.1 10^3/uL (1.5-5.0); LYMPH % 26.5 % (24.0-44.0); MEAN CORPUSCULAR HEMOGLOBIN 28.2 pg (27.0-33.0); MEAN CORPUSCULAR HGB CONC 31.1 g/dl (32.0-36.5); MEAN CORPUSCULAR VOLUME 90.7 fl (80.0-96.0); MONO # 0.3 10^3/uL (0.0-0.8); MONO % 7.9 % (2.0-8.0); NEUTROPHILS # 2.1 10^3/uL (1.5-8.5); NEUTROPHILS % 49.4 % (36.0-66.0); PLATELET COUNT, AUTOMATED 221 10^3/uL (150-450); RED BLOOD COUNT 3.33 10^6/uL (4.00-5.40); WHITE BLOOD COUNT 4.3 10^3/uL (4.0-10.0)
[2021-06-21 06:46] LABS: BLOOD UREA NITROGEN 14 MG/DL (7-18); CALCIUM LEVEL 7.6 MG/DL (8.8-10.2); CARBON DIOXIDE LEVEL 29 MEQ/L (21-32); CHLORIDE LEVEL 109 MEQ/L (98-107); CREATININE FOR GFR 0.66 MG/DL (0.55-1.30); GLOMERULAR FILTRATION RATE > 60.0 (>32); GLUCOSE, FASTING 77 MG/DL (70-100); MAGNESIUM LEVEL 1.9 MG/DL (1.8-2.4); POTASSIUM SERUM 3.6 MEQ/L (3.5-5.1); SODIUM LEVEL 145 MEQ/L (136-145)
[2021-06-21 08:19] VITALS: BP 176/75
[2021-06-21] MEDS: LABETALOL 100MG TAB PO SCH (08:19)
[2021-06-21] MEDS: FUROSEMIDE 20 MG TAB PO SCH (08:20)
[2021-06-21] MEDS: LOSARTAN 50MG TABLET PO SCH (08:20)
[2021-06-21] MEDS: OMEPRAZOLE 20MG CAP PO SCH (08:20)
[2021-06-21] MEDS: CREON-24 CAPSULE PO SCH (08:20)
[2021-06-21] MEDS: RIVAROXABAN 15 MG TAB (XARELTO) PO SCH (08:20)
[2021-06-21] MEDS: ERYTHROMYCIN OPHTH OINT OD SCH (08:21)
[2021-06-21] MEDS ORDERED: FURO20TA2 PO (10:30)
[2021-06-21] MEDS ORDERED: OXYC-517 PO (10:37)
[2021-06-21 10:50] VITALS: BP 129/61
== END 2021-06-21 12:40 | disposition home health service (06) | DRG 536 ==
LOC: M ED 10:40 → M ED INP 17:43 → ENRESERV 19:11 → M MSPAV 20:25
PROVIDERS: ADMIT Family Medicine; ATTEND Family Medicine
PROC: 30233N1 Transfusion of Nonautologous Red Blood Cells into Peripheral Vein, Percutaneous Approach (ICD-10-PCS; principal; 2021-06-18)
DX: S32.512A Fracture of superior rim of left pubis, initial encounter for closed fracture (principal); I50.32 Chronic diastolic (congestive) heart failure; K55.1 Chronic vascular disorders of intestine; D62 Acute posthemorrhagic anemia; I25.10 Atherosclerotic heart disease of native coronary artery without angina pectoris; I25.2 Old myocardial infarction; I48.0 Paroxysmal atrial fibrillation; I35.0 Nonrheumatic aortic (valve) stenosis; I11.0 Hypertensive heart disease with heart failure; E03.9 Hypothyroidism, unspecified; W18.30XA Fall on same level, unspecified, initial encounter; Y92.481 Parking lot as the place of occurrence of the external cause; Y93.89 Activity, other specified; Y99.8 Other external cause status; K21.9 Gastro-esophageal reflux disease without esophagitis; J45.909 Unspecified asthma, uncomplicated; E78.5 Hyperlipidemia, unspecified; K86.89 Other specified diseases of pancreas; Z95.5 Presence of coronary angioplasty implant and graft; Z86.73 Personal history of transient ischemic attack (TIA), and cerebral infarction without residual deficits; Z86.718 Personal history of other venous thrombosis and embolism; Z85.028 Personal history of other malignant neoplasm of stomach; Z92.21 Personal history of antineoplastic chemotherapy; Z92.3 Personal history of irradiation; Z90.49 Acquired absence of other specified parts of digestive tract; Z85.41 Personal history of malignant neoplasm of cervix uteri; Z90.710 Acquired absence of both cervix and uterus; Z85.3 Personal history of malignant neoplasm of breast; Z87.81 Personal history of (healed) traumatic fracture; Z96.643 Presence of artificial hip joint, bilateral; Z87.891 Personal history of nicotine dependence; Z20.822 Contact with and (suspected) exposure to COVID-19; Z79.01 Long term (current) use of anticoagulants; Z79.899 Other long term (current) drug therapy; Z88.5 Allergy status to narcotic agent; Z88.8 Allergy status to other drugs, medicaments and biological substances; Z91.048 Other nonmedicinal substance allergy status; Z95.2 Presence of prosthetic heart valve; I67.1 Cerebral aneurysm, nonruptured; H10.9 Unspecified conjunctivitis

== ENCOUNTER → 2021-07-05 | Outpatient (CLI) | payer MEDICARE, OTHER ==
[~2021-07-05] MED LIST changes: +OXYC-517 PO
== END ==
LOC: M SOG 11:10
PROVIDERS: ATTEND Orthopaedic Surgery Adult Reconstructive Orthopaedic Surgery
DX: R10.2 Pelvic and perineal pain (principal); M85.80 Other specified disorders of bone density and structure, unspecified site

== ENCOUNTER → 2021-08-02 | Outpatient (CLI) | payer MEDICARE, OTHER | LOC: M SOG 08:56 | PROVIDERS: ATTEND Orthopaedic Surgery Adult Reconstructive Orthopaedic Surgery | DX: S32.512D Fracture of superior rim of left pubis, subsequent encounter for fracture with routine healing (principal); Y92.9 Unspecified place or not applicable; Y93.9 Activity, unspecified; Y99.9 Unspecified external cause status ==

== ENCOUNTER → 2021-09-13 | Outpatient (CLI) | payer MEDICARE, OTHER | LOC: M PLAIMG 10:45 | PROVIDERS: ATTEND Nurse Practitioner Adult Health | DX: M54.6 Pain in thoracic spine (principal) ==

== ENCOUNTER 2021-09-30 19:31 | Emergency (ER) | payer MEDICARE, OTHER ==
[~2021-09-30] VITALS: Ht 144.8 cm; Wt 41.8 kg
[2021-09-30 19:31] VITALS: BP 176/80
[~2021-09-30 19:31] MED LIST changes: +ALBU2.5V10 INH; -ALBU83IN INH
[2021-09-30] MEDS ORDERED: ACET-716 PO (19:49)
== END 2021-09-30 21:35 | disposition left against medical advice (07) ==
LOC: M ED 19:31
DX: Z53.29 Procedure and treatment not carried out because of patient's decision for other reasons (principal)

== ENCOUNTER → 2021-10-01 | Outpatient (CLI) | payer MEDICARE, OTHER ==
[~2021-10-01] MED LIST changes: +ACET-716 PO
[2021-10-01 15:03] LABS: BASO % 0.2 % (0.0-1.0); EOS # 0.1 10^3/uL (0.0-0.5); EOS % 0.7 % (0.0-3.0); HEMATOCRIT 32.7 % (36.0-47.0); HEMOGLOBIN 10.2 g/dl (12.0-15.5); LYMPH # 0.8 10^3/uL (1.5-5.0); LYMPH % 10.5 % (24.0-44.0); MEAN CORPUSCULAR HEMOGLOBIN 30.5 pg (27.0-33.0); MEAN CORPUSCULAR HGB CONC 31.2 g/dl (32.0-36.5); MEAN CORPUSCULAR VOLUME 97.9 fl (80.0-96.0); MONO # 0.5 10^3/uL (0.0-0.8); MONO % 6.1 % (2.0-8.0); NEUTROPHILS # 6.6 10^3/uL (1.5-8.5); NEUTROPHILS % 82.1 % (36.0-66.0); PLATELET COUNT, AUTOMATED 234 10^3/uL (150-450); RED BLOOD COUNT 3.34 10^6/uL (4.00-5.40)
[2021-10-01 15:45] LABS: ERYTHROCYTE SEDIMENTATION RATE 44 mm/hr (0-30)
[2021-10-01 17:06] LABS: ALBUMIN 1.9 GM/DL (3.2-5.2); BILIRUBIN,TOTAL 0.4 MG/DL (0.2-1.0); C REACTIVE PROTEIN QUANTITATIV 13.4 MG/DL (0.00-0.30); CALCIUM LEVEL 7.6 MG/DL (8.8-10.2); CREATININE FOR GFR 0.97 MG/DL (0.55-1.30); GLOMERULAR FILTRATION RATE 58.5 (>32); POTASSIUM SERUM 3.3 MEQ/L (3.5-5.1); TOTAL PROTEIN 5.8 GM/DL (6.4-8.2)
== END ==
LOC: M PLALAB 09:23
PROVIDERS: ATTEND Nurse Practitioner Adult Health
DX: L03.115 Cellulitis of right lower limb (principal)

== ENCOUNTER → 2021-10-07 | Outpatient (CLI) | payer MEDICARE, OTHER ==
[~2021-10-07] MED LIST changes: +CIPR-249 PO; +METR-265 PO; +TORS20TA2 PO
[2021-10-07 16:48] LABS: EOS # 0.3 10^3/uL (0.0-0.5); HEMATOCRIT 32.5 % (36.0-47.0); HEMOGLOBIN 10.6 g/dl (12.0-15.5); LYMPH % 23.7 % (24.0-44.0); MEAN CORPUSCULAR HEMOGLOBIN 31.5 pg (27.0-33.0); MEAN CORPUSCULAR HGB CONC 32.6 g/dl (32.0-36.5); MEAN CORPUSCULAR VOLUME 96.4 fl (80.0-96.0); MONO # 0.3 10^3/uL (0.0-0.8); MONO % 6.5 % (2.0-8.0); NEUTROPHILS # 2.6 10^3/uL (1.5-8.5); NEUTROPHILS % 61.6 % (36.0-66.0); PLATELET COUNT, AUTOMATED 282 10^3/uL (150-450); RED BLOOD COUNT 3.37 10^6/uL (4.00-5.40); WHITE BLOOD COUNT 4.1 10^3/uL (4.0-10.0)
[2021-10-07 17:17] LABS: ALBUMIN 2.1 GM/DL (3.2-5.2); ALT/SGPT 27 U/L (12-78); BILIRUBIN,TOTAL 0.4 MG/DL (0.2-1.0); BLOOD UREA NITROGEN 13 MG/DL (7-18); CALCIUM LEVEL 7.9 MG/DL (8.8-10.2); CARBON DIOXIDE LEVEL 28 MEQ/L (21-32); CHLORIDE LEVEL 110 MEQ/L (98-107); CREATININE FOR GFR 0.87 MG/DL (0.55-1.30); GLOMERULAR FILTRATION RATE > 60.0 (>32); GLUCOSE, FASTING 79 MG/DL (70-100); POTASSIUM SERUM 3.5 MEQ/L (3.5-5.1); SODIUM LEVEL 142 MEQ/L (136-145); TOTAL PROTEIN 6.3 GM/DL (6.4-8.2)
[2021-10-07 18:16] LABS: ERYTHROCYTE SEDIMENTATION RATE 28 mm/hr (0-30)
== END ==
LOC: M RAD 15:41
PROVIDERS: ATTEND Nurse Practitioner Adult Health
DX: R60.0 Localized edema (principal); L03.115 Cellulitis of right lower limb

== ENCOUNTER 2021-10-10 14:04 | Inpatient (IN) | payer MEDICARE, OTHER ==
[~2021-10-10] VITALS: Ht 149.9 cm; Wt 41.2 kg
[~2021-10-10 14:04] MED LIST changes: -CIPR-249 PO; -METR-265 PO; -TORS20TA2 PO
[2021-10-10] MEDS ORDERED: NS 500 ML IV ONE (17:15)
[2021-10-10] MEDS ORDERED: MORPHINE 2 MG/ML 1ML VIAL IV PRN (17:15)
[2021-10-10 17:37] LABS: BASO % 0.8 % (0.0-1.0); EOS # 0.1 10^3/uL (0.0-0.5); EOS % 3.6 % (0.0-3.0); HEMATOCRIT 30.8 % (36.0-47.0); HEMOGLOBIN 10.2 g/dl (12.0-15.5); LYMPH # 1.2 10^3/uL (1.5-5.0); LYMPH % 30.7 % (24.0-44.0); MEAN CORPUSCULAR HEMOGLOBIN 31.6 pg (27.0-33.0); MEAN CORPUSCULAR HGB CONC 33.1 g/dl (32.0-36.5); MEAN CORPUSCULAR VOLUME 95.4 fl (80.0-96.0); MONO # 0.3 10^3/uL (0.0-0.8); MONO % 8.7 % (2.0-8.0); NEUTROPHILS # 2.2 10^3/uL (1.5-8.5); NEUTROPHILS % 56.2 % (36.0-66.0); PLATELET COUNT, AUTOMATED 285 10^3/uL (150-450); RED BLOOD COUNT 3.23 10^6/uL (4.00-5.40); WHITE BLOOD COUNT 3.9 10^3/uL (4.0-10.0)
[2021-10-10] MEDS ORDERED: ISOVUE-370 76% 100ML VIAL As Ordered ONE (17:47)
[2021-10-10 17:48] LABS: INR 1.61; PROTHROMBIN TIME 19.6 SECONDS (12.7-14.5)
[2021-10-10 17:49] LABS: PARTIAL THROMBOPLASTIN TIME 41.9 SECONDS (25.9-37.0)
[2021-10-10 18:08] LABS: ALBUMIN 1.9 GM/DL (3.2-5.2); BILIRUBIN,DIRECT 0.2 MG/DL (0.0-0.2); BILIRUBIN,TOTAL 0.3 MG/DL (0.2-1.0); TOTAL PROTEIN 6.1 GM/DL (6.4-8.2)
[2021-10-10] MEDS ORDERED: ONDANSETRON 4MG ORAL DISINTEGRATING TAB PO PRN (20:20)
[2021-10-10] MEDS ORDERED: ACETAMINOPHEN TAB 650MG DOSE (2X325MG) PO PRN (20:20)
[2021-10-10] MEDS ORDERED: TORS20TA2 PO (20:20)
[2021-10-10] MEDS ORDERED: PERCOCET 5MG/325MG TAB PO PRN ×2 (20:20→22:25)
[2021-10-10] MEDS ORDERED: HOME MED LIST COMPLETE! XX SCH (20:25)
[2021-10-10] MEDS ORDERED: SYMBICORT 160/4.5MCG INHALER 6GM INH PRN (20:35)
[2021-10-10 20:53] LABS: RSV AMPLIFICATION NEGATIVE (NEGATIVE)
[2021-10-10] MEDS: CIPROFLOXACIN 500MG TABLET PO SCH (20:54)
[2021-10-10] MEDS: metroNIDAZOLE (FLAGYL) 500MG TABLET PO SCH (20:55)
[2021-10-10] MEDS: POTASSIUM CHLORIDE 10% LIQ 20 MEQ/15 ML UDC PO SCH (20:55)
[2021-10-10] MEDS: LABETALOL 100MG TAB PO SCH (22:15)
[2021-10-10 23:20] VITALS: BP 115/56
[2021-10-11 00:22] LABS: CALCIUM LEVEL 6.9 MG/DL (8.8-10.2); GLOMERULAR FILTRATION RATE 56.5 (>32); MAGNESIUM LEVEL 1.7 MG/DL (1.8-2.4); POTASSIUM SERUM 4.1 MEQ/L (3.5-5.1)
[2021-10-11] MEDS: POTASSIUM CHLORIDE 10% LIQ 20 MEQ/15 ML UDC PO SCH (00:34)
[2021-10-11] MEDS ORDERED: NS 500 ML IV ONE (00:40)
[2021-10-11] MEDS ORDERED: MAG SULF 1GM/100ML (MAG RUN) 1 GM in IV 1 EA IV ONE (00:40)
[2021-10-11 04:00] VITALS: BP 156/70
[2021-10-11] MEDS: NS 1,000 ML IV SCH ×2 (04:25→12:02)
[2021-10-11 05:08] LABS: HEMATOCRIT 25.6 % (36.0-47.0); HEMOGLOBIN 8.4 g/dl (12.0-15.5); MEAN CORPUSCULAR HEMOGLOBIN 31.7 pg (27.0-33.0); MEAN CORPUSCULAR HGB CONC 32.8 g/dl (32.0-36.5); MEAN CORPUSCULAR VOLUME 96.6 fl (80.0-96.0); PLATELET COUNT, AUTOMATED 232 10^3/uL (150-450); RED BLOOD COUNT 2.65 10^6/uL (4.00-5.40); WHITE BLOOD COUNT 3.6 10^3/uL (4.0-10.0)
[2021-10-11 05:32] LABS: BLOOD UREA NITROGEN 10 MG/DL (7-18); CALCIUM LEVEL 6.9 MG/DL (8.8-10.2); CARBON DIOXIDE LEVEL 34 MEQ/L (21-32); CHLORIDE LEVEL 106 MEQ/L (98-107); GLOMERULAR FILTRATION RATE > 60.0 (>32); GLUCOSE, FASTING 90 MG/DL (70-100); MAGNESIUM LEVEL 2.2 MG/DL (1.8-2.4); SODIUM LEVEL 144 MEQ/L (136-145)
[2021-10-11] MEDS ORDERED: LEVOTHYROXINE 75MCG TABLET (0.075MG) PO SCH (06:00)
[2021-10-11] MEDS: metroNIDAZOLE (FLAGYL) 500MG TABLET PO SCH ×2 (06:07→13:20)
[2021-10-11] MEDS: CIPROFLOXACIN 500MG TABLET PO SCH (06:07)
[2021-10-11] MEDS ORDERED: CIPR-249 PO (07:31)
[2021-10-11] MEDS ORDERED: BACITAB PO (07:31)
[2021-10-11] MEDS ORDERED: METR-265 PO (07:31)
[2021-10-11 07:52] VITALS: BP 119/59
[2021-10-11] MEDS: POTASSIUM CHLORIDE 10MEQ SR TABLET PO SCH ×3 (08:12→12:02)
[2021-10-11 08:13] VITALS: BP 119/59
[2021-10-11] MEDS: CREON-24 CAPSULE PO SCH ×2 (08:13→12:01)
[2021-10-11] MEDS: LABETALOL 100MG TAB PO SCH (08:13)
[2021-10-11] MEDS ORDERED: RIVAROXABAN 20MG TAB (XARELTO) PO SCH (09:00)
[2021-10-11] MEDS ORDERED: LOSARTAN 50MG TABLET PO SCH (09:00)
[2021-10-11] MEDS ORDERED: metroNIDAZOLE (FLAGYL) 500MG TABLET PO SCH (09:00)
[2021-10-11] MEDS ORDERED: OMEPRAZOLE 20MG CAP PO SCH (09:00)
[2021-10-11 14:53] LABS: MAGNESIUM LEVEL 2.2 MG/DL (1.8-2.4); POTASSIUM SERUM 4.1 MEQ/L (3.5-5.1)
== END 2021-10-11 15:37 | disposition home or self-care (01) | DRG 392 ==
LOC: M ED 14:04 → EDBD 14:04 → M ED INP 20:18 → ENRESERV 21:55 → M PCU 23:16
PROVIDERS: ADMIT Internal Medicine; ATTEND General Practice
DX: K52.9 Noninfective gastroenteritis and colitis, unspecified (principal); I50.32 Chronic diastolic (congestive) heart failure; E87.6 Hypokalemia; I48.91 Unspecified atrial fibrillation; I11.0 Hypertensive heart disease with heart failure; J45.909 Unspecified asthma, uncomplicated; K21.9 Gastro-esophageal reflux disease without esophagitis; I25.10 Atherosclerotic heart disease of native coronary artery without angina pectoris; E03.9 Hypothyroidism, unspecified; D64.9 Anemia, unspecified; I35.0 Nonrheumatic aortic (valve) stenosis; E78.5 Hyperlipidemia, unspecified; Z90.49 Acquired absence of other specified parts of digestive tract; K56.41 Fecal impaction; Z85.028 Personal history of other malignant neoplasm of stomach; Z85.3 Personal history of malignant neoplasm of breast; Z85.41 Personal history of malignant neoplasm of cervix uteri; Z90.710 Acquired absence of both cervix and uterus; K86.89 Other specified diseases of pancreas; Z86.718 Personal history of other venous thrombosis and embolism; Z86.73 Personal history of transient ischemic attack (TIA), and cerebral infarction without residual deficits; Z95.5 Presence of coronary angioplasty implant and graft; Z96.643 Presence of artificial hip joint, bilateral; Z79.01 Long term (current) use of anticoagulants; Z79.899 Other long term (current) drug therapy; Z88.5 Allergy status to narcotic agent; Z88.8 Allergy status to other drugs, medicaments and biological substances; Z91.048 Other nonmedicinal substance allergy status

== ENCOUNTER 2021-10-28 01:38 | Inpatient (IN) | payer MEDICARE, OTHER ==
[~2021-10-28] VITALS: Ht 144.8 cm; Wt 44.4 kg
[~2021-10-28 01:38] MED LIST changes: +CIPR-249 PO; +METR-265 PO; +TORS20TA2 PO
[2021-10-28] MEDS ORDERED: MORPHINE 2 MG/ML 1ML VIAL IV ONE ×2 (02:10→05:25)
[2021-10-28 02:43] LABS: BASO % 0.2 % (0.0-1.0); EOS # 0.1 10^3/uL (0.0-0.5); EOS % 0.9 % (0.0-3.0); HEMATOCRIT 30.8 % (36.0-47.0); HEMOGLOBIN 10.1 g/dl (12.0-15.5); LYMPH # 0.6 10^3/uL (1.5-5.0); LYMPH % 6.5 % (24.0-44.0); MEAN CORPUSCULAR HEMOGLOBIN 32.1 pg (27.0-33.0); MEAN CORPUSCULAR HGB CONC 32.8 g/dl (32.0-36.5); MEAN CORPUSCULAR VOLUME 97.8 fl (80.0-96.0); MONO # 0.6 10^3/uL (0.0-0.8); MONO % 6.2 % (2.0-8.0); NEUTROPHILS # 7.7 10^3/uL (1.5-8.5); NEUTROPHILS % 85.9 % (36.0-66.0); PLATELET COUNT, AUTOMATED 273 10^3/uL (150-450); RED BLOOD COUNT 3.15 10^6/uL (4.00-5.40)
[2021-10-28] MEDS ORDERED: ONDANSETRON 4MG 2ML VIAL IV ONE ×2 (03:00→08:00)
[2021-10-28 03:30] LABS: ALBUMIN 1.8 GM/DL (3.2-5.2); BILIRUBIN,TOTAL 0.3 MG/DL (0.2-1.0); CALCIUM LEVEL 7.6 MG/DL (8.8-10.2); CREATININE FOR GFR 0.96 MG/DL (0.55-1.30); GLOMERULAR FILTRATION RATE 59.2 (>32); MAGNESIUM LEVEL 1.7 MG/DL (1.8-2.4); POTASSIUM SERUM 3.7 MEQ/L (3.5-5.1); TOTAL PROTEIN 5.9 GM/DL (6.4-8.2)
[2021-10-28] MEDS: LEVOTHYROXINE 75MCG TABLET (0.075MG) PO SCH (06:00)
[2021-10-28] MEDS: GASTROGRAFIN SOLUTION 30ML PO SCH ×2 (06:15→06:45)
[2021-10-28] MEDS ORDERED: MORPHINE 4 MG/ML 1ML VIAL/SYRINGE IV PRN (08:00)
[2021-10-28] MEDS ORDERED: TORSEMIDE 20 MG TAB PO SCH (09:00)
[2021-10-28] MEDS: LABETALOL 100MG TAB PO SCH ×2 (09:00→21:46)
[2021-10-28] MEDS ORDERED: LOSARTAN 50MG TABLET PO SCH (09:00)
[2021-10-28] MEDS: OMEPRAZOLE 20MG CAP PO SCH (09:00)
[2021-10-28] MEDS ORDERED: COLE625T PO (11:11)
[2021-10-28] MEDS ORDERED: ALBU8.5H INH (11:11)
[2021-10-28] MEDS ORDERED: HOME MED LIST COMPLETE! XX SCH (11:15)
[2021-10-28] MEDS ORDERED: ALBUTEROL 90 MCG/ACT 8GM HFA INHALER INH PRN (11:35)
[2021-10-28] MEDS ORDERED: MAG SULF 1GM/100ML (MAG RUN) 1 GM in IV 1 EA IV ONE (11:35)
[2021-10-28] MEDS: NS 1,000 ML IV SCH (12:30)
[2021-10-28 12:54] LABS: INR 0.94
[2021-10-28 15:10] LABS: ERYTHROCYTE SEDIMENTATION RATE 21 mm/hr (0-30)
[2021-10-28] MEDS: RIVAROXABAN 20MG TAB (XARELTO) PO SCH (15:56)
[2021-10-28 16:34] LABS: RSV AMPLIFICATION NEGATIVE (NEGATIVE)
[2021-10-28 18:39] VITALS: BP 163/76
[2021-10-28 20:33] VITALS: BP 135/68
[2021-10-28] MEDS: SYMBICORT 160/4.5MCG INHALER 6GM INH PRN (20:40)
[2021-10-28] MEDS: COLESEVELAM 625 MG TAB (WELCHOL) PO SCH (21:46)
[2021-10-28] MEDS: MORPHINE 2 MG/ML 1ML VIAL IV PRN (21:47)
[2021-10-29] MEDS: MORPHINE 2 MG/ML 1ML VIAL IV PRN (02:43)
[2021-10-29 02:52] VITALS: BP 98/46
[2021-10-29] MEDS ORDERED: SODIUM CHLORIDE 0.9% 1000ML IV ONE (03:55)
[2021-10-29] MEDS ORDERED: PANTOPRAZOLE 40MG VIAL IV ONE (04:00)
[2021-10-29] MEDS ORDERED: KETOROLAC 30 MG/ML 1ML VIAL IV ONE (04:00)
[2021-10-29] MEDS: NS 1,000 ML IV SCH ×2 (04:26→14:43)
[2021-10-29 05:39] VITALS: BP 84/42
[2021-10-29] MEDS ORDERED: NS 1,000 ML IV ONE (05:55)
[2021-10-29] MEDS: LEVOTHYROXINE 75MCG TABLET (0.075MG) PO SCH (06:02)
[2021-10-29 06:10] LABS: HEMATOCRIT 25.4 % (36.0-47.0); HEMOGLOBIN 8.2 g/dl (12.0-15.5); MEAN CORPUSCULAR HEMOGLOBIN 31.9 pg (27.0-33.0); MEAN CORPUSCULAR HGB CONC 32.3 g/dl (32.0-36.5); MEAN CORPUSCULAR VOLUME 98.8 fl (80.0-96.0); PLATELET COUNT, AUTOMATED 223 10^3/uL (150-450); RED BLOOD COUNT 2.57 10^6/uL (4.00-5.40); WHITE BLOOD COUNT 10.4 10^3/uL (4.0-10.0)
[2021-10-29 06:42] LABS: ALBUMIN 1.3 GM/DL (3.2-5.2); ALT/SGPT 17 U/L (12-78); AMYLASE 21 U/L (25-115); BILIRUBIN,TOTAL 0.3 MG/DL (0.2-1.0); BLOOD UREA NITROGEN 17 MG/DL (7-18); CALCIUM LEVEL 7.1 MG/DL (8.8-10.2); CARBON DIOXIDE LEVEL 26 MEQ/L (21-32); CHLORIDE LEVEL 112 MEQ/L (98-107); CREATININE FOR GFR 0.83 MG/DL (0.55-1.30); GLOMERULAR FILTRATION RATE > 60.0 (>32); GLUCOSE, FASTING 68 MG/DL (70-100); LIPASE 17 U/L (73-393); MAGNESIUM LEVEL 2.1 MG/DL (1.8-2.4); POTASSIUM SERUM 3.5 MEQ/L (3.5-5.1); SODIUM LEVEL 143 MEQ/L (136-145); TOTAL PROTEIN 4.6 GM/DL (6.4-8.2)
[2021-10-29] MEDS ORDERED: MORPHINE 2 MG/ML 1ML VIAL IV PRN (07:35)
[2021-10-29 07:39] VITALS: BP 121/58
[2021-10-29] MEDS ORDERED: PANTOPRAZOLE 20 MG TAB PO SCH (09:00)
[2021-10-29] MEDS: COLESEVELAM 625 MG TAB (WELCHOL) PO SCH ×2 (09:08→21:39)
[2021-10-29] MEDS: OMEPRAZOLE 20MG CAP PO SCH (09:08)
[2021-10-29] MEDS: RIVAROXABAN 20MG TAB (XARELTO) PO SCH (09:08)
[2021-10-29] MEDS: LACTOBACILLUS ACIDOPHILUS CAP (BACID) PO SCH ×2 (10:51→17:40)
[2021-10-29] MEDS ORDERED: MIRALAX *UNIT DOSE* 17GM PACKET PO PRN (10:55)
[2021-10-29] MEDS: DOCUSATE SODIUM 100MG CAPSULE PO SCH ×2 (11:09→21:38)
[2021-10-29] MEDS: PERCOCET 5MG/325MG TAB PO PRN ×2 (11:10→23:45)
[2021-10-29] MEDS: ONDANSETRON 4MG 2ML VIAL IV PRN (13:10)
[2021-10-29 14:00] VITALS: BP 92/60
[2021-10-29] MEDS: VANCOMYCIN ORAL SOL 250MG/5ML ORAL SYRINGE PO SCH ×3 (14:43→23:45)
[2021-10-29 16:36] VITALS: BP 102/55
[2021-10-29] MEDS: SYMBICORT 160/4.5MCG INHALER 6GM INH PRN (19:30)
[2021-10-29 20:44] VITALS: BP 105/62
[2021-10-29 23:19] LABS: CALCIUM LEVEL 7.2 MG/DL (8.8-10.2); CREATININE FOR GFR 1.03 MG/DL (0.55-1.30); GLOMERULAR FILTRATION RATE 54.6 (>32); POTASSIUM SERUM 3.8 MEQ/L (3.5-5.1)
[2021-10-30] VITALS (22 sets, daily range): BP systolic 108–138; BP diastolic 57–77
[2021-10-30] MEDS: PERCOCET 5MG/325MG TAB PO PRN ×2 (05:26→10:10)
[2021-10-30] MEDS: LEVOTHYROXINE 75MCG TABLET (0.075MG) PO SCH (05:26)
[2021-10-30] MEDS: VANCOMYCIN ORAL SOL 250MG/5ML ORAL SYRINGE PO SCH (05:27)
[2021-10-30 05:56] LABS: HEMOGLOBIN 8.8 g/dl (12.0-15.5); MEAN CORPUSCULAR HEMOGLOBIN 32.4 pg (27.0-33.0); MEAN CORPUSCULAR HGB CONC 32.6 g/dl (32.0-36.5); MEAN CORPUSCULAR VOLUME 99.3 fl (80.0-96.0); PLATELET COUNT, AUTOMATED 221 10^3/uL (150-450); RED BLOOD COUNT 2.72 10^6/uL (4.00-5.40); WHITE BLOOD COUNT 9.7 10^3/uL (4.0-10.0)
[2021-10-30 06:29] LABS: ALBUMIN 1.3 GM/DL (3.2-5.2); BILIRUBIN,TOTAL 0.3 MG/DL (0.2-1.0); CALCIUM LEVEL 7.8 MG/DL (8.8-10.2); CREATININE FOR GFR 1.14 MG/DL (0.55-1.30); GLOMERULAR FILTRATION RATE 48.6 (>32); POTASSIUM SERUM 3.6 MEQ/L (3.5-5.1); TOTAL PROTEIN 4.6 GM/DL (6.4-8.2)
[2021-10-30] MEDS: SYMBICORT 160/4.5MCG INHALER 6GM INH PRN (07:30)
[2021-10-30] MEDS ORDERED: FUROSEMIDE 40MG/4ML VIAL (J1940) IV SCH (09:00)
[2021-10-30] MEDS ORDERED: FUROSEMIDE 20MG/2ML VIAL (J1940) IV SCH (09:00)
[2021-10-30] MEDS ORDERED: PANTOPRAZOLE 20 MG TAB PO SCH (09:00)
[2021-10-30] MEDS ORDERED: MIRALAX *UNIT DOSE* 17GM PACKET PO PRN (09:45)
[2021-10-30] MEDS: DOCUSATE SODIUM 100MG CAPSULE PO SCH ×2 (10:11→20:21)
[2021-10-30] MEDS: LACTOBACILLUS ACIDOPHILUS CAP (BACID) PO SCH ×2 (10:11→18:00)
[2021-10-30] MEDS: OMEPRAZOLE 20MG CAP PO SCH (10:11)
[2021-10-30] MEDS: RIVAROXABAN 20MG TAB (XARELTO) PO SCH (10:11)
[2021-10-30] MEDS: COLESEVELAM 625 MG TAB (WELCHOL) PO SCH ×2 (10:11→20:21)
[2021-10-30] MEDS ORDERED: ISOVUE-370 76% 100ML VIAL As Ordered ONE (10:20)
[2021-10-30] MEDS ORDERED: LIDOCAINE 1% SDV 30ML VIAL As Ordered ONE (13:47)
[2021-10-30] MEDS ORDERED: BUPIVACAINE HCL 0.25% 30ML VIAL As Ordered ONE (13:47)
[2021-10-30] MEDS ORDERED: fentaNYL 250 MCG/5 ML INJECTION As Ordered ONE (13:56)
[2021-10-30] MEDS ORDERED: MIDAZOLAM INJ 2MG/2ML VIAL (J2250 PER 1MG) As Ordered ONE (13:57)
[2021-10-30] MEDS ORDERED: propofoL 200 MG/20 ML VIAL As Ordered ONE (13:59)
[2021-10-30] MEDS ORDERED: LIDOCAINE 2% INJ 100 MG/5 ML SYRINGE As Ordered ONE (13:59)
[2021-10-30] MEDS ORDERED: ETOMIDATE INJ 20MG/10ML VIAL As Ordered ONE (13:59)
[2021-10-30] MEDS ORDERED: ROCURONIUM BROMIDE 50 MG/5 ML VIAL As Ordered ONE (14:00)
[2021-10-30] MEDS ORDERED: dexameTHASONE 4 MG/ML 1ML VIAL (J1100 PER 1MG) As Ordered ONE (14:03)
[2021-10-30] MEDS ORDERED: ZOSYN 3.375GM VIAL As Ordered ONE (14:58)
[2021-10-30] MEDS: PIPERACILLIN/TAZOBACTAM SOD 3.375 GM in D5W MINI-BAG PLUS 50 ML IV SCH ×2 (15:00→20:21)
[2021-10-30] MEDS ORDERED: BUPIVACAINE HCL 0.25% 10ML VIAL As Ordered ONE (16:30)
[2021-10-30] MEDS ORDERED: BUPIVACAINE LIPOSOME/PF 1.3% 20ML VIAL (13.3MG/ML)(EXPAREL) As Ordered ONE (16:30)
[2021-10-30] MEDS ORDERED: SUGAMMADEX SODIUM 500 MG/5 ML VIAL (BRIDION) As Ordered ONE (17:25)
[2021-10-30] MEDS ORDERED: oxyCODONE 5MG TAB PO PRN (17:30)
[2021-10-30] MEDS ORDERED: ONDANSETRON 4MG 2ML VIAL IV PRN (17:30)
[2021-10-30] MEDS ORDERED: LR 1,000 ML IV SCH (17:30)
[2021-10-30] MEDS ORDERED: fentaNYL 100 MCG/2 ML INJECTION IV PRN (17:30)
[2021-10-30] MEDS ORDERED: HYDROMORPHONE HCL 0.5 MG/ 0.5 ML SYRINGE (J1170 PER 1) IV PRN (17:30)
[2021-10-30] MEDS ORDERED: LABETALOL 100MG/20ML VIAL As Ordered ONE (17:38)
[2021-10-30] MEDS ORDERED: LABETALOL 100MG/20ML VIAL IV PRN (17:40)
[2021-10-30 18:36] LABS: HEMOGLOBIN 9.5 g/dl (12.0-15.5); MEAN CORPUSCULAR HEMOGLOBIN 30.4 pg (27.0-33.0); MEAN CORPUSCULAR HGB CONC 32.8 g/dl (32.0-36.5); MEAN CORPUSCULAR VOLUME 92.9 fl (80.0-96.0); PLATELET COUNT, AUTOMATED 149 10^3/uL (150-450); RED BLOOD COUNT 3.12 10^6/uL (4.00-5.40); WHITE BLOOD COUNT 5.9 10^3/uL (4.0-10.0)
[2021-10-30 19:03] LABS: ANISOCYTOSIS 2+; LYMPHOCYTES 6 % (16-44); MONOCYTES 1 % (0-5); NEUTROPHILS 93 % (28-66); PLATELET ESTIMATE NORMAL (NORMAL)
[2021-10-30 19:08] LABS: CALCIUM LEVEL 7.6 MG/DL (8.8-10.2); CREATININE FOR GFR 1.18 MG/DL (0.55-1.30); GLOMERULAR FILTRATION RATE 46.7 (>32); POTASSIUM SERUM 3.6 MEQ/L (3.5-5.1); TOTAL PROTEIN 4.7 GM/DL (6.4-8.2)
[2021-10-30] MEDS ORDERED: SENNA 8.6 MG TAB (SENOKOT) PO SCH (21:00)
[2021-10-31] VITALS (12 sets, daily range): BP systolic 115–141; BP diastolic 56–80
[2021-10-31] MEDS: PIPERACILLIN/TAZOBACTAM SOD 3.375 GM in D5W MINI-BAG PLUS 50 ML IV SCH ×4 (02:04→19:13)
[2021-10-31 05:08] LABS: HEMATOCRIT 29.6 % (36.0-47.0); HEMOGLOBIN 9.9 g/dl (12.0-15.5); MEAN CORPUSCULAR HGB CONC 33.4 g/dl (32.0-36.5); MEAN CORPUSCULAR VOLUME 89.7 fl (80.0-96.0); PLATELET COUNT, AUTOMATED 139 10^3/uL (150-450); WHITE BLOOD COUNT 8.3 10^3/uL (4.0-10.0)
[2021-10-31 05:54] LABS: ALBUMIN 1.7 GM/DL (3.2-5.2); CALCIUM LEVEL 7.9 MG/DL (8.8-10.2); CREATININE FOR GFR 1.14 MG/DL (0.55-1.30); GLOMERULAR FILTRATION RATE 48.6 (>32); PHOSPHORUS LEVEL 4.2 MG/DL (2.5-4.9); TOTAL PROTEIN 4.6 GM/DL (6.4-8.2)
[2021-10-31] MEDS: LEVOTHYROXINE 75MCG TABLET (0.075MG) PO SCH (06:35)
[2021-10-31] MEDS: PANTOPRAZOLE 40MG VIAL IV SCH (08:33)
[2021-10-31] MEDS: LACTOBACILLUS ACIDOPHILUS CAP (BACID) PO SCH ×2 (08:36→17:54)
[2021-10-31] MEDS: MORPHINE 2 MG/ML 1ML VIAL IV PRN ×2 (08:36→14:30)
[2021-10-31] MEDS: COLESEVELAM 625 MG TAB (WELCHOL) PO SCH ×2 (08:36→20:59)
[2021-10-31] MEDS: DOCUSATE SODIUM 100MG CAPSULE PO SCH ×2 (08:36→20:59)
[2021-10-31] MEDS ORDERED: NS 0.45% 1,000 ML IV SCH (09:10)
[2021-11-01] VITALS: BP 103/62
[2021-11-01] MEDS: PIPERACILLIN/TAZOBACTAM SOD 3.375 GM in D5W MINI-BAG PLUS 50 ML IV SCH ×4 (01:53→19:25)
[2021-11-01 04:00] VITALS: BP 123/57
[2021-11-01] MEDS: LEVOTHYROXINE 75MCG TABLET (0.075MG) PO SCH (06:03)
[2021-11-01 07:31] LABS: HEMATOCRIT 28.7 % (36.0-47.0); HEMOGLOBIN 9.4 g/dl (12.0-15.5); MEAN CORPUSCULAR HEMOGLOBIN 29.7 pg (27.0-33.0); MEAN CORPUSCULAR HGB CONC 32.8 g/dl (32.0-36.5); MEAN CORPUSCULAR VOLUME 90.8 fl (80.0-96.0); PLATELET COUNT, AUTOMATED 143 10^3/uL (150-450); RED BLOOD COUNT 3.16 10^6/uL (4.00-5.40); WHITE BLOOD COUNT 7.3 10^3/uL (4.0-10.0)
[2021-11-01 07:34] VITALS: BP 138/68
[2021-11-01 07:58] LABS: ALBUMIN 1.4 GM/DL (3.2-5.2); BILIRUBIN,TOTAL 0.6 MG/DL (0.2-1.0); CALCIUM LEVEL 8.4 MG/DL (8.8-10.2); CREATININE FOR GFR 1.11 MG/DL (0.55-1.30); GLOMERULAR FILTRATION RATE 50.1 (>32); POTASSIUM SERUM 3.7 MEQ/L (3.5-5.1); TOTAL PROTEIN 4.7 GM/DL (6.4-8.2)
[2021-11-01] MEDS: DOCUSATE SODIUM 100MG CAPSULE PO SCH ×2 (08:24→20:19)
[2021-11-01] MEDS: LACTOBACILLUS ACIDOPHILUS CAP (BACID) PO SCH ×2 (08:24→17:28)
[2021-11-01] MEDS: COLESEVELAM 625 MG TAB (WELCHOL) PO SCH ×2 (08:24→20:19)
[2021-11-01] MEDS: PANTOPRAZOLE 40MG VIAL IV SCH (08:24)
[2021-11-01] MEDS: KETOROLAC 30 MG/ML 1ML VIAL IV SCH ×2 (11:07→17:28)
[2021-11-01 12:22] VITALS: BP 128/74
[2021-11-01 20:00] VITALS: BP 117/53
[2021-11-02] MEDS: KETOROLAC 30 MG/ML 1ML VIAL IV SCH ×5 (00:33→23:58)
[2021-11-02] MEDS: PIPERACILLIN/TAZOBACTAM SOD 3.375 GM in D5W MINI-BAG PLUS 50 ML IV SCH ×4 (02:51→20:45)
[2021-11-02 04:00] VITALS: BP 136/63
[2021-11-02 05:28] LABS: HEMATOCRIT 25.8 % (36.0-47.0); HEMOGLOBIN 8.4 g/dl (12.0-15.5); MEAN CORPUSCULAR HGB CONC 32.6 g/dl (32.0-36.5); MEAN CORPUSCULAR VOLUME 92.1 fl (80.0-96.0); PLATELET COUNT, AUTOMATED 116 10^3/uL (150-450); WHITE BLOOD COUNT 4.5 10^3/uL (4.0-10.0)
[2021-11-02 05:56] LABS: ALBUMIN 1.3 GM/DL (3.2-5.2); BILIRUBIN,TOTAL 0.5 MG/DL (0.2-1.0); CALCIUM LEVEL 7.7 MG/DL (8.8-10.2); CREATININE FOR GFR 1.04 MG/DL (0.55-1.30); MAGNESIUM LEVEL 2.1 MG/DL (1.8-2.4); POTASSIUM SERUM 3.4 MEQ/L (3.5-5.1); TOTAL PROTEIN 4.6 GM/DL (6.4-8.2)
[2021-11-02] MEDS: LEVOTHYROXINE 75MCG TABLET (0.075MG) PO SCH (06:10)
[2021-11-02 07:55] VITALS: BP 130/60
[2021-11-02] MEDS: COLESEVELAM 625 MG TAB (WELCHOL) PO SCH ×2 (09:26→20:43)
[2021-11-02] MEDS: DOCUSATE SODIUM 100MG CAPSULE PO SCH ×2 (09:26→20:50)
[2021-11-02] MEDS: LACTOBACILLUS ACIDOPHILUS CAP (BACID) PO SCH ×2 (09:26→17:25)
[2021-11-02] MEDS: POTASSIUM CHLORIDE 10MEQ SR TABLET PO SCH (09:26)
[2021-11-02] MEDS: PANTOPRAZOLE 40MG VIAL IV SCH (09:27)
[2021-11-02] MEDS: PERCOCET 5MG/325MG TAB PO PRN (13:12)
[2021-11-02 16:15] VITALS: BP 140/62
[2021-11-02] MEDS: ENOXAPARIN 30MG/0.3ML SYRINGE (J1650 PER 10MG) SC SCH (17:24)
[2021-11-02 20:00] VITALS: BP 113/66
[2021-11-03] VITALS: BP 123/69
[2021-11-03] MEDS: PIPERACILLIN/TAZOBACTAM SOD 3.375 GM in D5W MINI-BAG PLUS 50 ML IV SCH ×4 (02:30→20:49)
[2021-11-03 04:00] VITALS: BP 145/65
[2021-11-03 05:05] LABS: BASO % 0.2 % (0.0-1.0); EOS # 0.2 10^3/uL (0.0-0.5); EOS % 4.8 % (0.0-3.0); HEMATOCRIT 25.9 % (36.0-47.0); HEMOGLOBIN 8.3 g/dl (12.0-15.5); LYMPH # 0.6 10^3/uL (1.5-5.0); LYMPH % 11.6 % (24.0-44.0); MEAN CORPUSCULAR HEMOGLOBIN 29.3 pg (27.0-33.0); MEAN CORPUSCULAR VOLUME 91.5 fl (80.0-96.0); MONO # 0.3 10^3/uL (0.0-0.8); MONO % 6.4 % (2.0-8.0); NEUTROPHILS # 3.7 10^3/uL (1.5-8.5); NEUTROPHILS % 76.4 % (36.0-66.0); PLATELET COUNT, AUTOMATED 113 10^3/uL (150-450); RED BLOOD COUNT 2.83 10^6/uL (4.00-5.40); WHITE BLOOD COUNT 4.8 10^3/uL (4.0-10.0)
[2021-11-03 05:29] LABS: BLOOD UREA NITROGEN 21 MG/DL (7-18); CALCIUM LEVEL 7.3 MG/DL (8.8-10.2); CARBON DIOXIDE LEVEL 23 MEQ/L (21-32); CHLORIDE LEVEL 116 MEQ/L (98-107); CREATININE FOR GFR 0.89 MG/DL (0.55-1.30); GLOMERULAR FILTRATION RATE > 60.0 (>32); GLUCOSE, FASTING 84 MG/DL (70-100); POTASSIUM SERUM 4.3 MEQ/L (3.5-5.1); SODIUM LEVEL 144 MEQ/L (136-145)
[2021-11-03] MEDS: LEVOTHYROXINE 75MCG TABLET (0.075MG) PO SCH (06:22)
[2021-11-03] MEDS: KETOROLAC 30 MG/ML 1ML VIAL IV SCH ×4 (06:22→23:47)
[2021-11-03] MEDS ORDERED: PERCOCET 5MG/325MG TAB PO ONE (07:15)
[2021-11-03 08:00] VITALS: BP 142/75
[2021-11-03] MEDS: LACTOBACILLUS ACIDOPHILUS CAP (BACID) PO SCH ×2 (08:15→17:58)
[2021-11-03] MEDS: POTASSIUM CHLORIDE 10MEQ SR TABLET PO SCH (08:16)
[2021-11-03] MEDS: PANTOPRAZOLE 40MG VIAL IV SCH (08:17)
[2021-11-03] MEDS: COLESEVELAM 625 MG TAB (WELCHOL) PO SCH ×2 (08:17→20:49)
[2021-11-03] MEDS: ENOXAPARIN 30MG/0.3ML SYRINGE (J1650 PER 10MG) SC SCH (08:17)
[2021-11-03] MEDS: DOCUSATE SODIUM 100MG CAPSULE PO SCH ×2 (08:17→20:49)
[2021-11-03 12:00] VITALS: BP 137/72
[2021-11-03 16:00] VITALS: BP 148/78
[2021-11-03 20:00] VITALS: BP 140/68
[2021-11-04] VITALS (14 sets, daily range): BP systolic 80–180; BP diastolic 43–80
[2021-11-04] MEDS: PIPERACILLIN/TAZOBACTAM SOD 3.375 GM in D5W MINI-BAG PLUS 50 ML IV SCH ×4 (02:30→19:52)
[2021-11-04 03:54] LABS: HEMATOCRIT 23.1 % (36.0-47.0); HEMOGLOBIN 7.5 g/dl (12.0-15.5); MEAN CORPUSCULAR HEMOGLOBIN 29.6 pg (27.0-33.0); MEAN CORPUSCULAR HGB CONC 32.5 g/dl (32.0-36.5); MEAN CORPUSCULAR VOLUME 91.3 fl (80.0-96.0); PLATELET COUNT, AUTOMATED 126 10^3/uL (150-450); RED BLOOD COUNT 2.53 10^6/uL (4.00-5.40); WHITE BLOOD COUNT 5.3 10^3/uL (4.0-10.0)
[2021-11-04 04:06] LABS: BLOOD UREA NITROGEN 18 MG/DL (7-18); CALCIUM LEVEL 7.4 MG/DL (8.8-10.2); CARBON DIOXIDE LEVEL 24 MEQ/L (21-32); CHLORIDE LEVEL 116 MEQ/L (98-107); CREATININE FOR GFR 0.78 MG/DL (0.55-1.30); GLOMERULAR FILTRATION RATE > 60.0 (>32); GLUCOSE, FASTING 83 MG/DL (70-100); POTASSIUM SERUM 4.7 MEQ/L (3.5-5.1); SODIUM LEVEL 143 MEQ/L (136-145)
[2021-11-04 04:25] LABS: ANISOCYTOSIS 2+; ATYPICAL LYMPH 1 % (0-5); EOSINOPHILS 6 % (0-3); LYMPHOCYTES 8 % (16-44); MONOCYTES 4 % (0-5); NEUTROPHILS 81 % (28-66); PLATELET ESTIMATE DECREASED (NORMAL)
[2021-11-04 04:26] LABS: POIKILOCYTOSIS 1+
[2021-11-04] MEDS: LEVOTHYROXINE 75MCG TABLET (0.075MG) PO SCH (06:36)
[2021-11-04] MEDS: KETOROLAC 30 MG/ML 1ML VIAL IV SCH (06:37)
[2021-11-04] MEDS: PERCOCET 5MG/325MG TAB PO PRN ×2 (08:27→19:51)
[2021-11-04] MEDS: LACTOBACILLUS ACIDOPHILUS CAP (BACID) PO SCH ×2 (08:28→17:54)
[2021-11-04] MEDS: COLESEVELAM 625 MG TAB (WELCHOL) PO SCH ×2 (08:28→21:29)
[2021-11-04] MEDS: PANTOPRAZOLE 40MG VIAL IV SCH ×2 (08:28→21:29)
[2021-11-04] MEDS: DOCUSATE SODIUM 100MG CAPSULE PO SCH ×2 (08:29→21:28)
[2021-11-04] MEDS: ENOXAPARIN 30MG/0.3ML SYRINGE (J1650 PER 10MG) SC SCH (08:29)
[2021-11-04] MEDS ORDERED: LIDOCAINE 1% MDV 20ML VIAL As Ordered ONE (10:30)
[2021-11-04] MEDS: SODIUM CHLORIDE 0.9% INJ 10 ML SYR IV SCH (17:53)
[2021-11-04] MEDS ORDERED: amLODIPine 5 MG TAB PO ONE (18:50)
[2021-11-04] MEDS: ONDANSETRON 4MG 2ML VIAL IV PRN (19:50)
[2021-11-05] VITALS (7 sets, daily range): BP systolic 133–188; BP diastolic 66–91
[2021-11-05 01:31] LABS: HEMATOCRIT 32.1 % (36.0-47.0)
[2021-11-05 01:35] LABS: HEMOGLOBIN 10.8 g/dl (12.0-15.5)
[2021-11-05 01:41] LABS: INR 1.01; PROTHROMBIN TIME 13.7 SECONDS (12.7-14.5)
[2021-11-05 01:42] LABS: PARTIAL THROMBOPLASTIN TIME 42.7 SECONDS (25.9-37.0)
[2021-11-05] MEDS: PIPERACILLIN/TAZOBACTAM SOD 3.375 GM in D5W MINI-BAG PLUS 50 ML IV SCH ×2 (02:23→08:46)
[2021-11-05] MEDS: SODIUM CHLORIDE 0.9% INJ 10 ML SYR IV SCH ×2 (06:00→18:48)
[2021-11-05] MEDS: LEVOTHYROXINE 75MCG TABLET (0.075MG) PO SCH (06:03)
[2021-11-05 06:20] LABS: BASO % 0.1 % (0.0-1.0); EOS # 0.3 10^3/uL (0.0-0.5); EOS % 3.3 % (0.0-3.0); HEMATOCRIT 33.6 % (36.0-47.0); HEMOGLOBIN 11.3 g/dl (12.0-15.5); LYMPH # 0.7 10^3/uL (1.5-5.0); LYMPH % 8.6 % (24.0-44.0); MEAN CORPUSCULAR HEMOGLOBIN 29.4 pg (27.0-33.0); MEAN CORPUSCULAR HGB CONC 33.6 g/dl (32.0-36.5); MEAN CORPUSCULAR VOLUME 87.5 fl (80.0-96.0); MONO # 0.3 10^3/uL (0.0-0.8); MONO % 3.5 % (2.0-8.0); NEUTROPHILS # 6.6 10^3/uL (1.5-8.5); NEUTROPHILS % 83.5 % (36.0-66.0); PLATELET COUNT, AUTOMATED 140 10^3/uL (150-450); RED BLOOD COUNT 3.84 10^6/uL (4.00-5.40); WHITE BLOOD COUNT 7.9 10^3/uL (4.0-10.0)
[2021-11-05 06:49] LABS: BLOOD UREA NITROGEN 18 MG/DL (7-18); CALCIUM LEVEL 7.2 MG/DL (8.8-10.2); CARBON DIOXIDE LEVEL 26 MEQ/L (21-32); CHLORIDE LEVEL 113 MEQ/L (98-107); CREATININE FOR GFR 0.72 MG/DL (0.55-1.30); GLOMERULAR FILTRATION RATE > 60.0 (>32); GLUCOSE, FASTING 76 MG/DL (70-100); POTASSIUM SERUM 4.6 MEQ/L (3.5-5.1); SODIUM LEVEL 139 MEQ/L (136-145)
[2021-11-05] MEDS: PANTOPRAZOLE 40MG VIAL IV SCH ×2 (08:41→20:50)
[2021-11-05] MEDS: COLESEVELAM 625 MG TAB (WELCHOL) PO SCH ×2 (08:41→20:49)
[2021-11-05] MEDS: DOCUSATE SODIUM 100MG CAPSULE PO SCH ×2 (08:41→20:49)
[2021-11-05] MEDS: LACTOBACILLUS ACIDOPHILUS CAP (BACID) PO SCH ×2 (08:41→17:48)
[2021-11-05] MEDS ORDERED: amLODIPine 5 MG TAB PO PRN (09:00)
[2021-11-05] MEDS: metroNIDAZOLE (FLAGYL) 500MG TABLET PO SCH ×2 (14:30→20:50)
[2021-11-05] MEDS: PERCOCET 5MG/325MG TAB PO PRN (14:58)
[2021-11-05] MEDS: CIPROFLOXACIN 500MG TABLET PO SCH (17:48)
[2021-11-06] MEDS: PERCOCET 5MG/325MG TAB PO PRN ×3 (03:31→16:04)
[2021-11-06] MEDS: metroNIDAZOLE (FLAGYL) 500MG TABLET PO SCH ×3 (05:27→21:34)
[2021-11-06] MEDS: SODIUM CHLORIDE 0.9% INJ 10 ML SYR IV SCH ×3 (05:27→21:34)
[2021-11-06] MEDS: CIPROFLOXACIN 500MG TABLET PO SCH ×2 (05:27→18:27)
[2021-11-06] MEDS: LEVOTHYROXINE 75MCG TABLET (0.075MG) PO SCH (05:27)
[2021-11-06 05:45] LABS: BASO % 0.4 % (0.0-1.0); EOS # 0.2 10^3/uL (0.0-0.5); EOS % 2.9 % (0.0-3.0); HEMATOCRIT 33.1 % (36.0-47.0); HEMOGLOBIN 11.1 g/dl (12.0-15.5); LYMPH # 0.5 10^3/uL (1.5-5.0); LYMPH % 6.8 % (24.0-44.0); MEAN CORPUSCULAR HGB CONC 33.5 g/dl (32.0-36.5); MEAN CORPUSCULAR VOLUME 89.5 fl (80.0-96.0); MONO # 0.3 10^3/uL (0.0-0.8); MONO % 3.4 % (2.0-8.0); NEUTROPHILS # 6.9 10^3/uL (1.5-8.5); PLATELET COUNT, AUTOMATED 149 10^3/uL (150-450)
[2021-11-06 06:00] VITALS: BP 161/85
[2021-11-06 06:16] LABS: BLOOD UREA NITROGEN 15 MG/DL (7-18); CALCIUM LEVEL 7.2 MG/DL (8.8-10.2); CARBON DIOXIDE LEVEL 26 MEQ/L (21-32); CHLORIDE LEVEL 112 MEQ/L (98-107); CREATININE FOR GFR 0.62 MG/DL (0.55-1.30); GLOMERULAR FILTRATION RATE > 60.0 (>32); GLUCOSE, FASTING 70 MG/DL (70-100); POTASSIUM SERUM 4.3 MEQ/L (3.5-5.1); SODIUM LEVEL 141 MEQ/L (136-145)
[2021-11-06] MEDS: LACTOBACILLUS ACIDOPHILUS CAP (BACID) PO SCH ×2 (09:17→18:27)
[2021-11-06] MEDS: PANTOPRAZOLE 40MG VIAL IV SCH ×2 (09:17→21:35)
[2021-11-06] MEDS: DOCUSATE SODIUM 100MG CAPSULE PO SCH ×2 (09:17→21:34)
[2021-11-06] MEDS: COLESEVELAM 625 MG TAB (WELCHOL) PO SCH ×2 (09:17→21:34)
[2021-11-06 14:00] VITALS: BP 156/84
[2021-11-06] MEDS: ONDANSETRON 4MG 2ML VIAL IV PRN (20:03)
[2021-11-06 22:00] VITALS: BP 147/84
[2021-11-07] MEDS: PERCOCET 5MG/325MG TAB PO PRN ×4 (01:11→22:08)
[2021-11-07] MEDS: CIPROFLOXACIN 500MG TABLET PO SCH ×2 (05:20→17:18)
[2021-11-07] MEDS: LEVOTHYROXINE 75MCG TABLET (0.075MG) PO SCH (05:20)
[2021-11-07] MEDS: metroNIDAZOLE (FLAGYL) 500MG TABLET PO SCH ×3 (05:20→22:07)
[2021-11-07 05:34] LABS: BASO % 0.5 % (0.0-1.0); EOS # 0.3 10^3/uL (0.0-0.5); EOS % 3.6 % (0.0-3.0); HEMATOCRIT 32.3 % (36.0-47.0); HEMOGLOBIN 10.3 g/dl (12.0-15.5); LYMPH # 0.6 10^3/uL (1.5-5.0); LYMPH % 7.7 % (24.0-44.0); MEAN CORPUSCULAR HEMOGLOBIN 29.2 pg (27.0-33.0); MEAN CORPUSCULAR HGB CONC 31.9 g/dl (32.0-36.5); MEAN CORPUSCULAR VOLUME 91.5 fl (80.0-96.0); MONO # 0.3 10^3/uL (0.0-0.8); NEUTROPHILS # 6.5 10^3/uL (1.5-8.5); NEUTROPHILS % 83.7 % (36.0-66.0); PLATELET COUNT, AUTOMATED 170 10^3/uL (150-450); RED BLOOD COUNT 3.53 10^6/uL (4.00-5.40); WHITE BLOOD COUNT 7.8 10^3/uL (4.0-10.0)
[2021-11-07 05:54] LABS: BLOOD UREA NITROGEN 13 MG/DL (7-18); CALCIUM LEVEL 7.2 MG/DL (8.8-10.2); CARBON DIOXIDE LEVEL 27 MEQ/L (21-32); CHLORIDE LEVEL 113 MEQ/L (98-107); GLOMERULAR FILTRATION RATE > 60.0 (>32); GLUCOSE, FASTING 75 MG/DL (70-100); POTASSIUM SERUM 4.2 MEQ/L (3.5-5.1); SODIUM LEVEL 142 MEQ/L (136-145)
[2021-11-07 06:00] VITALS: BP 139/72
[2021-11-07] MEDS: PANTOPRAZOLE 40MG VIAL IV SCH ×2 (08:21→22:06)
[2021-11-07] MEDS: LACTOBACILLUS ACIDOPHILUS CAP (BACID) PO SCH ×2 (08:22→17:19)
[2021-11-07] MEDS: COLESEVELAM 625 MG TAB (WELCHOL) PO SCH ×2 (08:22→22:07)
[2021-11-07] MEDS: DOCUSATE SODIUM 100MG CAPSULE PO SCH ×2 (08:22→22:07)
[2021-11-07] MEDS: ONDANSETRON 4MG 2ML VIAL IV PRN ×2 (12:43→18:54)
[2021-11-07 14:00] VITALS: BP 143/73
[2021-11-07] MEDS ORDERED: FUROSEMIDE 40MG/4ML VIAL (J1940) IV ONE (17:00)
[2021-11-07] MEDS: SODIUM CHLORIDE 0.9% INJ 10 ML SYR IV SCH ×2 (17:18→22:08)
[2021-11-07 20:03] VITALS: BP 120/65
[2021-11-08] MEDS: LEVOTHYROXINE 75MCG TABLET (0.075MG) PO SCH (05:03)
[2021-11-08] MEDS: metroNIDAZOLE (FLAGYL) 500MG TABLET PO SCH ×3 (05:03→22:04)
[2021-11-08] MEDS: CIPROFLOXACIN 500MG TABLET PO SCH ×2 (05:03→18:30)
[2021-11-08] MEDS: SODIUM CHLORIDE 0.9% INJ 10 ML SYR IV PRN ×2 (05:03→22:05)
[2021-11-08 05:30] LABS: BASO % 0.4 % (0.0-1.0); EOS # 0.3 10^3/uL (0.0-0.5); EOS % 3.3 % (0.0-3.0); HEMOGLOBIN 10.9 g/dl (12.0-15.5); LYMPH # 0.6 10^3/uL (1.5-5.0); LYMPH % 8.1 % (24.0-44.0); MEAN CORPUSCULAR HEMOGLOBIN 30.2 pg (27.0-33.0); MEAN CORPUSCULAR VOLUME 91.4 fl (80.0-96.0); MONO # 0.4 10^3/uL (0.0-0.8); MONO % 4.6 % (2.0-8.0); NEUTROPHILS # 6.3 10^3/uL (1.5-8.5); NEUTROPHILS % 83.1 % (36.0-66.0); PLATELET COUNT, AUTOMATED 205 10^3/uL (150-450); RED BLOOD COUNT 3.61 10^6/uL (4.00-5.40); WHITE BLOOD COUNT 7.5 10^3/uL (4.0-10.0)
[2021-11-08 05:52] LABS: BLOOD UREA NITROGEN 12 MG/DL (7-18); CALCIUM LEVEL 7.3 MG/DL (8.8-10.2); CARBON DIOXIDE LEVEL 26 MEQ/L (21-32); CHLORIDE LEVEL 111 MEQ/L (98-107); CREATININE FOR GFR 0.73 MG/DL (0.55-1.30); GLOMERULAR FILTRATION RATE > 60.0 (>32); GLUCOSE, FASTING 78 MG/DL (70-100); SODIUM LEVEL 142 MEQ/L (136-145)
[2021-11-08 06:00] VITALS: BP 140/68
[2021-11-08] MEDS: PANTOPRAZOLE 40MG VIAL IV SCH ×3 (09:00→22:04)
[2021-11-08] MEDS: COLESEVELAM 625 MG TAB (WELCHOL) PO SCH ×2 (09:15→22:04)
[2021-11-08] MEDS: DOCUSATE SODIUM 100MG CAPSULE PO SCH ×2 (09:15→22:03)
[2021-11-08] MEDS: LACTOBACILLUS ACIDOPHILUS CAP (BACID) PO SCH ×2 (09:15→18:30)
[2021-11-08] MEDS: PERCOCET 5MG/325MG TAB PO PRN ×2 (13:27→22:04)
[2021-11-08 14:00] VITALS: BP 132/67
[2021-11-08] MEDS: SODIUM CHLORIDE 0.9% INJ 10 ML SYR IV SCH (18:31)
[2021-11-08 19:46] VITALS: BP 131/66
[2021-11-08] MEDS: SYMBICORT 160/4.5MCG INHALER 6GM INH PRN (20:28)
[2021-11-09] MEDS: LEVOTHYROXINE 75MCG TABLET (0.075MG) PO SCH (05:10)
[2021-11-09] MEDS: CIPROFLOXACIN 500MG TABLET PO SCH ×2 (05:10→16:57)
[2021-11-09] MEDS: metroNIDAZOLE (FLAGYL) 500MG TABLET PO SCH ×3 (05:10→20:08)
[2021-11-09] MEDS: SODIUM CHLORIDE 0.9% INJ 10 ML SYR IV SCH ×2 (05:11→14:44)
[2021-11-09 05:26] LABS: BASO % 0.7 % (0.0-1.0); EOS # 0.2 10^3/uL (0.0-0.5); EOS % 2.7 % (0.0-3.0); HEMATOCRIT 33.3 % (36.0-47.0); HEMOGLOBIN 10.8 g/dl (12.0-15.5); LYMPH # 0.8 10^3/uL (1.5-5.0); MEAN CORPUSCULAR HEMOGLOBIN 29.8 pg (27.0-33.0); MEAN CORPUSCULAR HGB CONC 32.4 g/dl (32.0-36.5); MONO # 0.3 10^3/uL (0.0-0.8); MONO % 4.9 % (2.0-8.0); NEUTROPHILS # 4.5 10^3/uL (1.5-8.5); NEUTROPHILS % 77.4 % (36.0-66.0); PLATELET COUNT, AUTOMATED 219 10^3/uL (150-450); RED BLOOD COUNT 3.62 10^6/uL (4.00-5.40); WHITE BLOOD COUNT 5.9 10^3/uL (4.0-10.0)
[2021-11-09 05:52] LABS: BLOOD UREA NITROGEN 10 MG/DL (7-18); CARBON DIOXIDE LEVEL 29 MEQ/L (21-32); CHLORIDE LEVEL 109 MEQ/L (98-107); CREATININE FOR GFR 0.72 MG/DL (0.55-1.30); GLOMERULAR FILTRATION RATE > 60.0 (>32); GLUCOSE, FASTING 84 MG/DL (70-100); POTASSIUM SERUM 4.1 MEQ/L (3.5-5.1); SODIUM LEVEL 139 MEQ/L (136-145)
[2021-11-09 06:00] VITALS: BP 145/69
[2021-11-09] MEDS: SODIUM CHLORIDE 0.9% INJ 10 ML SYR IV PRN ×2 (08:09→14:43)
[2021-11-09] MEDS: DOCUSATE SODIUM 100MG CAPSULE PO SCH ×2 (08:09→20:08)
[2021-11-09] MEDS: COLESEVELAM 625 MG TAB (WELCHOL) PO SCH ×2 (08:09→20:09)
[2021-11-09] MEDS: LACTOBACILLUS ACIDOPHILUS CAP (BACID) PO SCH ×2 (08:09→16:57)
[2021-11-09] MEDS: PANTOPRAZOLE 40MG VIAL IV SCH (10:12)
[2021-11-09 13:46] VITALS: BP 112/65
[2021-11-09] MEDS: ONDANSETRON 4MG 2ML VIAL IV PRN (14:43)
[2021-11-09] MEDS: TORSEMIDE 20 MG TAB PO SCH (16:56)
[2021-11-09] MEDS: METOPROLOL TART 12.5 MG PER 1/2 TAB PO SCH (16:57)
[2021-11-09] MEDS ORDERED: LOSARTAN 25 MG TAB PO SCH (18:00)
[2021-11-09] MEDS: OYSTER SHELL CALCIUM 500 MG TAB PO SCH (18:00)
[2021-11-09] MEDS ORDERED: ACETAMINOPHEN TAB 650MG DOSE (2X325MG) PO ONE (18:35)
[2021-11-09 19:39] VITALS: BP 105/50
[2021-11-09] MEDS: PANTOPRAZOLE 40MG TAB (PROTONIX) PO SCH (20:08)
[2021-11-09] MEDS: APIXABAN 2.5 MG TAB (ELIQUIS) PO SCH (20:08)
[2021-11-09] MEDS: PERCOCET 5MG/325MG TAB PO PRN (20:09)
[2021-11-10] MEDS: SODIUM CHLORIDE 0.9% INJ 10 ML SYR IV SCH ×2 (05:08→17:27)
[2021-11-10] MEDS: LEVOTHYROXINE 75MCG TABLET (0.075MG) PO SCH (05:08)
[2021-11-10] MEDS: CIPROFLOXACIN 500MG TABLET PO SCH (05:08)
[2021-11-10] MEDS: metroNIDAZOLE (FLAGYL) 500MG TABLET PO SCH (05:08)
[2021-11-10] MEDS: PERCOCET 5MG/325MG TAB PO PRN (05:09)
[2021-11-10 05:30] LABS: HEMATOCRIT 31.6 % (36.0-47.0); HEMOGLOBIN 10.1 g/dl (12.0-15.5); MEAN CORPUSCULAR HEMOGLOBIN 29.6 pg (27.0-33.0); MEAN CORPUSCULAR VOLUME 92.7 fl (80.0-96.0); PLATELET COUNT, AUTOMATED 228 10^3/uL (150-450); RED BLOOD COUNT 3.41 10^6/uL (4.00-5.40); WHITE BLOOD COUNT 5.5 10^3/uL (4.0-10.0)
[2021-11-10 05:35] VITALS: BP 124/60
[2021-11-10] MEDS: ONDANSETRON 4MG 2ML VIAL IV PRN (05:40)
[2021-11-10 05:53] LABS: BLOOD UREA NITROGEN 8 MG/DL (7-18); CALCIUM LEVEL 7.1 MG/DL (8.8-10.2); CARBON DIOXIDE LEVEL 30 MEQ/L (21-32); CHLORIDE LEVEL 109 MEQ/L (98-107); CREATININE FOR GFR 0.77 MG/DL (0.55-1.30); GLOMERULAR FILTRATION RATE > 60.0 (>32); GLUCOSE, FASTING 94 MG/DL (70-100); MAGNESIUM LEVEL 1.8 MG/DL (1.8-2.4); PHOSPHORUS LEVEL 1.8 MG/DL (2.5-4.9); POTASSIUM SERUM 3.7 MEQ/L (3.5-5.1); SODIUM LEVEL 140 MEQ/L (136-145)
[2021-11-10] MEDS ORDERED: K-PHOS ORIGINAL (POT.ACID PHOSPHATE) 500MG TAB PO ONE (07:00)
[2021-11-10] MEDS ORDERED: METO1TAB87 PO (09:26)
[2021-11-10] MEDS ORDERED: CALCI50TA PO (09:26)
[2021-11-10] MEDS ORDERED: ELIQ2.5T PO (09:26)
[2021-11-10] MEDS ORDERED: COLA100C5 PO (09:26)
[2021-11-10] MEDS ORDERED: RISATAB3 PO (09:26)
[2021-11-10] MEDS ORDERED: LOSA50TA28 PO (09:27)
[2021-11-10] MEDS: PANTOPRAZOLE 40MG TAB (PROTONIX) PO SCH ×2 (09:32→20:13)
[2021-11-10] MEDS: LACTOBACILLUS ACIDOPHILUS CAP (BACID) PO SCH ×2 (09:33→17:23)
[2021-11-10] MEDS: DOCUSATE SODIUM 100MG CAPSULE PO SCH ×2 (09:33→20:13)
[2021-11-10] MEDS: OYSTER SHELL CALCIUM 500 MG TAB PO SCH (09:33)
[2021-11-10] MEDS: COLESEVELAM 625 MG TAB (WELCHOL) PO SCH ×2 (09:34→20:13)
[2021-11-10] MEDS: TORSEMIDE 20 MG TAB PO SCH (09:34)
[2021-11-10] MEDS: APIXABAN 2.5 MG TAB (ELIQUIS) PO SCH ×2 (09:34→20:13)
[2021-11-10 13:59] VITALS: BP 129/70
[2021-11-10 17:24] VITALS: BP 129/70
[2021-11-10] MEDS: METOPROLOL TART 12.5 MG PER 1/2 TAB PO SCH (17:24)
[2021-11-10 19:42] VITALS: BP 116/61
[2021-11-11] MEDS: LEVOTHYROXINE 75MCG TABLET (0.075MG) PO SCH (05:19)
[2021-11-11] MEDS: SODIUM CHLORIDE 0.9% INJ 10 ML SYR IV SCH (05:22)
[2021-11-11 05:43] VITALS: BP 129/64
[2021-11-11] MEDS: LACTOBACILLUS ACIDOPHILUS CAP (BACID) PO SCH (09:04)
[2021-11-11] MEDS: COLESEVELAM 625 MG TAB (WELCHOL) PO SCH (09:05)
[2021-11-11] MEDS: PANTOPRAZOLE 40MG TAB (PROTONIX) PO SCH (09:05)
[2021-11-11] MEDS: OYSTER SHELL CALCIUM 500 MG TAB PO SCH (09:05)
[2021-11-11] MEDS: APIXABAN 2.5 MG TAB (ELIQUIS) PO SCH (09:06)
[2021-11-11] MEDS: TORSEMIDE 20 MG TAB PO SCH (09:06)
[2021-11-11] MEDS: DOCUSATE SODIUM 100MG CAPSULE PO SCH (09:06)
[2021-11-11] MEDS ORDERED: METO25TA PO (10:32)
== END 2021-11-11 11:25 | disposition home health service (06) | DRG 329 ==
LOC: EDBD 01:38 → M ED 01:38 → M ED INP 11:33 → M MSPAV 18:26 → M ICU 10-30 18:04 → M PCU 10-31 15:22 → M MS5PR 11-05 17:17
PROVIDERS: ADMIT Internal Medicine; ATTEND Internal Medicine
PROC: 0D1L0Z4 Bypass Transverse Colon to Cutaneous, Open Approach (ICD-10-PCS; 2021-10-30)
PROC: BW21YZZ Computerized Tomography (CT Scan) of Abdomen and Pelvis using Other Contrast (ICD-10-PCS; 2021-10-30)
PROC: 0DBL0ZZ Excision of Transverse Colon, Open Approach (ICD-10-PCS; principal; 2021-10-30 12:15)
PROC: 02HV33Z Insertion of Infusion Device into Superior Vena Cava, Percutaneous Approach (ICD-10-PCS; 2021-11-04)
DX: K55.9 Vascular disorder of intestine, unspecified (principal); I50.33 Acute on chronic diastolic (congestive) heart failure; E43 Unspecified severe protein-calorie malnutrition; K63.1 Perforation of intestine (nontraumatic); M48.56XA Collapsed vertebra, not elsewhere classified, lumbar region, initial encounter for fracture; M48.54XA Collapsed vertebra, not elsewhere classified, thoracic region, initial encounter for fracture; D62 Acute posthemorrhagic anemia; I48.20 Chronic atrial fibrillation, unspecified; N28.0 Ischemia and infarction of kidney; K56.7 Ileus, unspecified; I25.10 Atherosclerotic heart disease of native coronary artery without angina pectoris; I35.0 Nonrheumatic aortic (valve) stenosis; Z86.73 Personal history of transient ischemic attack (TIA), and cerebral infarction without residual deficits; Z86.718 Personal history of other venous thrombosis and embolism; Z86.003 Personal history of in-situ neoplasm of oral cavity, esophagus and stomach; Z85.41 Personal history of malignant neoplasm of cervix uteri; Z85.3 Personal history of malignant neoplasm of breast; I11.0 Hypertensive heart disease with heart failure; E03.9 Hypothyroidism, unspecified; E78.5 Hyperlipidemia, unspecified; J45.909 Unspecified asthma, uncomplicated; K86.89 Other specified diseases of pancreas; K21.9 Gastro-esophageal reflux disease without esophagitis; K59.09 Other constipation; I25.2 Old myocardial infarction; Z95.5 Presence of coronary angioplasty implant and graft; Z82.3 Family history of stroke; Z90.49 Acquired absence of other specified parts of digestive tract; Z90.79 Acquired absence of other genital organ(s); Z96.643 Presence of artificial hip joint, bilateral; Z87.891 Personal history of nicotine dependence; E83.42 Hypomagnesemia; R29.6 Repeated falls; Z20.822 Contact with and (suspected) exposure to COVID-19; Z79.899 Other long term (current) drug therapy; Z91.040 Latex allergy status; Z88.8 Allergy status to other drugs, medicaments and biological substances; K52.9 Noninfective gastroenteritis and colitis, unspecified; K66.0 Peritoneal adhesions (postprocedural) (postinfection); Z53.31 Laparoscopic surgical procedure converted to open procedure

== ENCOUNTER 2021-11-13 10:13 | Inpatient (IN) | payer MEDICARE, OTHER ==
[~2021-11-13] VITALS: Ht 144.8 cm; Wt 43.5 kg
[~2021-11-13 10:13] MED LIST changes: +ALBU8.5H INH; +CALCI50TA PO; +COLA100C5 PO; +COLE625T PO; +ELIQ2.5T PO; -LABE100T4 PO; +LABE100T6 PO; +LEVO1TAB38 PO; +LEVO1TAB39 PO; -LEVO250T3 PO; -LEVO500T4 PO; +METO1TAB87 PO; +METO25TA PO; +NYST-13 TOP; -NYST10CR TOP; +RISATAB3 PO
[2021-11-13 11:33] LABS: HEMATOCRIT 41.6 % (36.0-47.0); HEMOGLOBIN 13.4 g/dl (12.0-15.5); MEAN CORPUSCULAR HEMOGLOBIN 29.5 pg (27.0-33.0); MEAN CORPUSCULAR HGB CONC 32.2 g/dl (32.0-36.5); MEAN CORPUSCULAR VOLUME 91.6 fl (80.0-96.0); PLATELET COUNT, AUTOMATED 359 10^3/uL (150-450); RED BLOOD COUNT 4.54 10^6/uL (4.00-5.40); WHITE BLOOD COUNT 4.9 10^3/uL (4.0-10.0)
[2021-11-13 11:43] LABS: INR 0.94
[2021-11-13 11:44] LABS: PARTIAL THROMBOPLASTIN TIME 32.8 SECONDS (25.9-37.0)
[2021-11-13 11:54] LABS: ATYPICAL LYMPH 4 % (0-5); BASOPHILS 1 % (0-1); EOSINOPHILS 2 % (0-3); LYMPHOCYTES 8 % (16-44); MONOCYTES 4 % (0-5); NEUTROPHILS 80 % (28-66)
[2021-11-13 11:56] LABS: MICROCYTOSIS 1+; OVALOCYTES 1+; PLATELET ESTIMATE NORMAL (NORMAL)
[2021-11-13 12:12] LABS: BILIRUBIN,DIRECT 0.1 MG/DL (0.0-0.2); BILIRUBIN,TOTAL 0.6 MG/DL (0.2-1.0); CALCIUM LEVEL 8.4 MG/DL (8.8-10.2); CREATININE FOR GFR 1.16 MG/DL (0.55-1.30); GLOMERULAR FILTRATION RATE 47.6 (>32); POTASSIUM SERUM 3.7 MEQ/L (3.5-5.1); TOTAL PROTEIN 7.7 GM/DL (6.4-8.2)
[2021-11-13] MEDS ORDERED: ISOVUE-370 76% 100ML VIAL As Ordered ONE ×2 (12:20→13:42)
[2021-11-13] MEDS ORDERED: ONDANSETRON 4MG ORAL DISINTEGRATING TAB PO ONE (13:00)
[2021-11-13] MEDS ORDERED: ONDANSETRON 4MG 2ML VIAL IV ONE (13:25)
[2021-11-13] MEDS ORDERED: ACETAMINOPHEN 1000MG 100ML IV BTL (OFIRMEV) (J0131 PER 10MG) IV ONE (13:25)
[2021-11-13] MEDS ORDERED: LR 1,000 ML IV ONE ×2 (13:40→17:55)
[2021-11-13] MEDS ORDERED: MORPHINE 2 MG/ML 1ML VIAL IV ONE (14:00)
[2021-11-13] MEDS ORDERED: PIPERACILLIN/TAZOBACTAM SOD 3.375 GM in D5W MINI-BAG PLUS 50 ML IV ONE (15:00)
[2021-11-13 16:10] LABS: RSV AMPLIFICATION NEGATIVE (NEGATIVE)
[2021-11-13] MEDS: LR 1,000 ML IV SCH (16:45)
[2021-11-13] MEDS ORDERED: IPRATROPIUM 0.5MG/ALBUTEROL 2.5MG INH SOL UD 3ML (DUONEB) NEB PRN (17:10)
[2021-11-13] MEDS ORDERED: ELIQ2.5T PO (17:16)
[2021-11-13] MEDS ORDERED: BACITAB PO (17:16)
[2021-11-13] MEDS ORDERED: METO25TA PO (17:16)
[2021-11-13] MEDS ORDERED: METO1TAB87 PO (17:16)
[2021-11-13] MEDS ORDERED: CALC500T68 PO (17:16)
[2021-11-13] MEDS ORDERED: HOME MED LIST COMPLETE! XX SCH (17:20)
[2021-11-13] MEDS ORDERED: fentaNYL 100 MCG/2 ML INJECTION As Ordered ONE ×2 (18:10→21:24)
[2021-11-13] MEDS ORDERED: propofoL 200 MG/20 ML VIAL As Ordered ONE (18:10)
[2021-11-13] MEDS ORDERED: dexameTHASONE 4 MG/ML 1ML VIAL (J1100 PER 1MG) As Ordered ONE (18:11)
[2021-11-13] MEDS ORDERED: ROCURONIUM BROMIDE 50 MG/5 ML VIAL As Ordered ONE (18:11)
[2021-11-13] MEDS ORDERED: ONDANSETRON 4MG 2ML VIAL As Ordered ONE (18:11)
[2021-11-13] MEDS ORDERED: PHENYLephrine 500MCG 5ML (100MCG/ML) SYRINGE As Ordered ONE ×2 (20:15→20:20)
[2021-11-13] MEDS ORDERED: ACETAMINOPHEN 1000MG 100ML IV BTL (OFIRMEV) (J0131 PER 10MG) As Ordered ONE (21:49)
[2021-11-13] MEDS ORDERED: ZOSYN 3.375GM VIAL As Ordered ONE (21:51)
[2021-11-13] MEDS ORDERED: SUGAMMADEX SODIUM 500 MG/5 ML VIAL (BRIDION) As Ordered ONE (22:04)
[2021-11-13] MEDS ORDERED: LR 1,000 ML IV SCH (22:35)
[2021-11-13] MEDS ORDERED: MORPHINE 2 MG/ML 1ML VIAL IV PRN (22:35)
[2021-11-13] MEDS ORDERED: ONDANSETRON 4MG 2ML VIAL IV PRN (22:35)
[2021-11-13] MEDS ORDERED: fentaNYL 100 MCG/2 ML INJECTION IV PRN (22:35)
[2021-11-13] MEDS ORDERED: ALBUTEROL 90 MCG/ACT 8GM HFA INHALER INH PRN (22:45)
[2021-11-13] MEDS ORDERED: ALBUTEROL SULFATE 2.5 MG/0.5 ML INH NEB SOLN INH ONE (23:00)
[2021-11-13 23:39] VITALS: BP 112/62
[2021-11-14] MEDS: PIPERACILLIN/TAZOBACTAM SOD 3.375 GM in D5W MINI-BAG PLUS 50 ML IV SCH ×6 (00:17→20:57)
[2021-11-14] MEDS: ONDANSETRON 4MG 2ML VIAL IV PRN ×3 (01:46→15:43)
[2021-11-14] MEDS: LR 1,000 ML IV SCH ×3 (02:22→23:08)
[2021-11-14 03:23] VITALS: BP 112/64
[2021-11-14] MEDS: LEVOTHYROXINE 75MCG TABLET (0.075MG) PO SCH (06:34)
[2021-11-14 06:38] VITALS: BP 127/76
[2021-11-14] MEDS: MORPHINE 2 MG/ML 1ML VIAL IV PRN ×2 (06:54→21:03)
[2021-11-14] MEDS: SYMBICORT 160/4.5MCG INHALER 6GM INH PRN ×2 (07:54→19:31)
[2021-11-14 10:00] VITALS: BP 129/75
[2021-11-14 14:00] VITALS: BP 102/73
[2021-11-14] MEDS: METOPROLOL TART 12.5 MG PER 1/2 TAB PO SCH (14:15)
[2021-11-14 18:00] VITALS: BP 116/57
[2021-11-14] MEDS: LACTOBACILLUS ACIDOPHILUS CAP (BACID) PO SCH (20:57)
[2021-11-14 21:00] VITALS: BP 135/69
[2021-11-15 02:00] VITALS: BP 116/61
[2021-11-15] MEDS: PIPERACILLIN/TAZOBACTAM SOD 3.375 GM in D5W MINI-BAG PLUS 50 ML IV SCH ×4 (03:46→15:00)
[2021-11-15] MEDS: LEVOTHYROXINE 75MCG TABLET (0.075MG) PO SCH (05:30)
[2021-11-15 06:00] VITALS: BP 119/61
[2021-11-15 10:00] VITALS: BP 126/64
[2021-11-15] MEDS: MORPHINE 2 MG/ML 1ML VIAL IV PRN (10:04)
[2021-11-15] MEDS: METOPROLOL TART 12.5 MG PER 1/2 TAB PO SCH (10:05)
[2021-11-15] MEDS: LACTOBACILLUS ACIDOPHILUS CAP (BACID) PO SCH ×2 (10:05→20:00)
[2021-11-15] MEDS: PERCOCET 5MG/325MG TAB PO PRN ×2 (13:42→20:01)
[2021-11-15 14:00] VITALS: BP 132/60
[2021-11-15] MEDS ORDERED: LIDOCAINE 1% MDV 20ML VIAL As Ordered ONE (14:47)
[2021-11-15 18:00] VITALS: BP 133/59
[2021-11-15] MEDS: LR 1,000 ML IV SCH (18:15)
[2021-11-15] MEDS ORDERED: LevoFLOXacin 500 MG TABLET PO ONE (18:30)
[2021-11-15 21:34] VITALS: BP_SYST 122; BP_SYST 155; BP_DIAS 54; BP_DIAS 60
[2021-11-16 02:00] VITALS: BP_SYST 130; BP_SYST 147; BP_DIAS 55; BP_DIAS 60
[2021-11-16 06:00] VITALS: BP 146/58
[2021-11-16] MEDS: LEVOTHYROXINE 75MCG TABLET (0.075MG) PO SCH (06:06)
[2021-11-16] MEDS: LevoFLOXacin 250 MG TABLET PO SCH (06:06)
[2021-11-16] MEDS: SYMBICORT 160/4.5MCG INHALER 6GM INH PRN (07:18)
[2021-11-16] MEDS: CREON-12 CAPSULE PO SCH ×3 (08:50→17:55)
[2021-11-16] MEDS: LACTOBACILLUS ACIDOPHILUS CAP (BACID) PO SCH ×2 (08:50→20:23)
[2021-11-16] MEDS: CREON-24 CAPSULE PO SCH ×3 (08:50→17:55)
[2021-11-16] MEDS: METOPROLOL TART 12.5 MG PER 1/2 TAB PO SCH (08:51)
[2021-11-16 12:00] VITALS: BP 137/67
[2021-11-16 12:44] LABS: HEMATOCRIT 30.9 % (36.0-47.0); HEMOGLOBIN 9.7 g/dl (12.0-15.5); MEAN CORPUSCULAR HEMOGLOBIN 29.8 pg (27.0-33.0); MEAN CORPUSCULAR HGB CONC 31.4 g/dl (32.0-36.5); MEAN CORPUSCULAR VOLUME 95.1 fl (80.0-96.0); PLATELET COUNT, AUTOMATED 333 10^3/uL (150-450); RED BLOOD COUNT 3.25 10^6/uL (4.00-5.40); WHITE BLOOD COUNT 7.4 10^3/uL (4.0-10.0)
[2021-11-16 13:40] LABS: BLOOD UREA NITROGEN 11 MG/DL (7-18); CARBON DIOXIDE LEVEL 35 MEQ/L (21-32); CHLORIDE LEVEL 99 MEQ/L (98-107); CREATININE FOR GFR 0.72 MG/DL (0.55-1.30); GLOMERULAR FILTRATION RATE > 60.0 (>32); GLUCOSE, FASTING 92 MG/DL (70-100); POTASSIUM SERUM 4.1 MEQ/L (3.5-5.1); SODIUM LEVEL 135 MEQ/L (136-145)
[2021-11-16 14:00] VITALS: BP 147/66
[2021-11-16] MEDS: PERCOCET 5MG/325MG TAB PO PRN (17:56)
[2021-11-16 18:00] VITALS: BP 131/64
[2021-11-16] MEDS: ONDANSETRON 4MG ORAL DISINTEGRATING TAB PO PRN (20:23)
[2021-11-16 22:00] VITALS: BP 130/63
[2021-11-17 02:00] VITALS: BP 115/53
[2021-11-17] MEDS: LevoFLOXacin 250 MG TABLET PO SCH (05:50)
[2021-11-17] MEDS: LEVOTHYROXINE 75MCG TABLET (0.075MG) PO SCH (05:50)
[2021-11-17 06:00] VITALS: BP 138/61
[2021-11-17 08:00] VITALS: BP 120/56
[2021-11-17] MEDS: CREON-24 CAPSULE PO SCH ×3 (09:16→18:12)
[2021-11-17] MEDS: METOPROLOL TART 12.5 MG PER 1/2 TAB PO SCH (09:16)
[2021-11-17] MEDS: CREON-12 CAPSULE PO SCH ×3 (09:17→18:12)
[2021-11-17] MEDS: LACTOBACILLUS ACIDOPHILUS CAP (BACID) PO SCH ×2 (09:17→20:38)
[2021-11-17] MEDS: ACETAMINOPHEN TAB 650MG DOSE (2X325MG) PO PRN (09:41)
[2021-11-17] MEDS: ONDANSETRON 4MG ORAL DISINTEGRATING TAB PO PRN (10:38)
[2021-11-17 14:00] VITALS: BP 148/68
[2021-11-17] MEDS: PERCOCET 5MG/325MG TAB PO PRN (17:19)
[2021-11-17 18:00] VITALS: BP 145/67
[2021-11-17] MEDS: RAMELTEON 8 MG TAB (ROZEREM) PO SCH (20:38)
[2021-11-17 21:43] VITALS: BP 135/62
[2021-11-18] VITALS (9 sets, daily range): BP systolic 92–137; BP diastolic 45–61
[2021-11-18] MEDS: LevoFLOXacin 250 MG TABLET PO SCH (05:07)
[2021-11-18] MEDS: LEVOTHYROXINE 75MCG TABLET (0.075MG) PO SCH (05:07)
[2021-11-18 06:37] LABS: HEMATOCRIT 26.9 % (36.0-47.0); HEMOGLOBIN 8.4 g/dl (12.0-15.5); MEAN CORPUSCULAR HEMOGLOBIN 30.1 pg (27.0-33.0); MEAN CORPUSCULAR HGB CONC 31.2 g/dl (32.0-36.5); MEAN CORPUSCULAR VOLUME 96.4 fl (80.0-96.0); PLATELET COUNT, AUTOMATED 326 10^3/uL (150-450); RED BLOOD COUNT 2.79 10^6/uL (4.00-5.40); WHITE BLOOD COUNT 4.8 10^3/uL (4.0-10.0)
[2021-11-18 07:17] LABS: BLOOD UREA NITROGEN 8 MG/DL (7-18); CALCIUM LEVEL 7.5 MG/DL (8.8-10.2); CARBON DIOXIDE LEVEL 33 MEQ/L (21-32); CHLORIDE LEVEL 104 MEQ/L (98-107); CREATININE FOR GFR 0.53 MG/DL (0.55-1.30); GLOMERULAR FILTRATION RATE > 60.0 (>32); GLUCOSE, FASTING 73 MG/DL (70-100); SODIUM LEVEL 138 MEQ/L (136-145)
[2021-11-18] MEDS: CREON-12 CAPSULE PO SCH ×3 (08:55→16:54)
[2021-11-18] MEDS: CREON-24 CAPSULE PO SCH ×3 (08:55→16:54)
[2021-11-18] MEDS: LACTOBACILLUS ACIDOPHILUS CAP (BACID) PO SCH ×2 (08:56→20:12)
[2021-11-18] MEDS: METOPROLOL TART 12.5 MG PER 1/2 TAB PO SCH (08:56)
[2021-11-18] MEDS: PERCOCET 5MG/325MG TAB PO PRN ×2 (10:39→17:01)
[2021-11-18] MEDS: DRONABINOL 2.5MG CAP (MARINOL) PO SCH ×2 (12:08→17:06)
[2021-11-18] MEDS: COLESEVELAM 625 MG TAB (WELCHOL) PO SCH (16:55)
[2021-11-18] MEDS ORDERED: NS 500 ML IV ONE (20:00)
[2021-11-18] MEDS ORDERED: NS 1,000 ML IV ONE (20:00)
[2021-11-18] MEDS: RAMELTEON 8 MG TAB (ROZEREM) PO SCH (20:12)
[2021-11-18 20:21] LABS: HEMATOCRIT 24.9 % (36.0-47.0); HEMOGLOBIN 7.9 g/dl (12.0-15.5)
[2021-11-18] MEDS ORDERED: MIDODRINE 5 MG TAB PO ONE (20:35)
[2021-11-19] VITALS (9 sets, daily range): BP systolic 103–169; BP diastolic 53–76
[2021-11-19] MEDS: LEVOTHYROXINE 75MCG TABLET (0.075MG) PO SCH (05:57)
[2021-11-19 06:29] LABS: HEMATOCRIT 30.4 % (36.0-47.0); HEMOGLOBIN 9.8 g/dl (12.0-15.5); MEAN CORPUSCULAR HEMOGLOBIN 30.3 pg (27.0-33.0); MEAN CORPUSCULAR HGB CONC 32.2 g/dl (32.0-36.5); MEAN CORPUSCULAR VOLUME 94.1 fl (80.0-96.0); PLATELET COUNT, AUTOMATED 279 10^3/uL (150-450); RED BLOOD COUNT 3.23 10^6/uL (4.00-5.40); WHITE BLOOD COUNT 5.3 10^3/uL (4.0-10.0)
[2021-11-19 07:02] LABS: BLOOD UREA NITROGEN 8 MG/DL (7-18); CALCIUM LEVEL 7.3 MG/DL (8.8-10.2); CARBON DIOXIDE LEVEL 30 MEQ/L (21-32); CHLORIDE LEVEL 107 MEQ/L (98-107); CREATININE FOR GFR 0.46 MG/DL (0.55-1.30); GLOMERULAR FILTRATION RATE > 60.0 (>32); GLUCOSE, FASTING 65 MG/DL (70-100); SODIUM LEVEL 138 MEQ/L (136-145)
[2021-11-19] MEDS: COLESEVELAM 625 MG TAB (WELCHOL) PO SCH ×2 (08:05→18:01)
[2021-11-19] MEDS: LACTOBACILLUS ACIDOPHILUS CAP (BACID) PO SCH ×2 (08:05→20:45)
[2021-11-19] MEDS: DRONABINOL 2.5MG CAP (MARINOL) PO SCH ×3 (08:05→18:01)
[2021-11-19] MEDS: CREON-24 CAPSULE PO SCH ×3 (08:05→18:01)
[2021-11-19] MEDS: CREON-12 CAPSULE PO SCH ×3 (08:05→18:01)
[2021-11-19] MEDS: METOPROLOL TART 12.5 MG PER 1/2 TAB PO SCH (08:08)
[2021-11-19] MEDS: PERCOCET 5MG/325MG TAB PO PRN ×3 (09:45→18:00)
[2021-11-19] MEDS: ACETAMINOPHEN TAB 650MG DOSE (2X325MG) PO PRN (20:45)
[2021-11-19] MEDS: RAMELTEON 8 MG TAB (ROZEREM) PO SCH (20:45)
[2021-11-20 02:00] VITALS: BP 130/63
[2021-11-20] MEDS: LEVOTHYROXINE 75MCG TABLET (0.075MG) PO SCH (05:56)
[2021-11-20 06:00] VITALS: BP 133/63
[2021-11-20] MEDS: CREON-12 CAPSULE PO SCH ×3 (08:16→17:52)
[2021-11-20] MEDS: DRONABINOL 2.5MG CAP (MARINOL) PO SCH ×3 (08:16→17:52)
[2021-11-20] MEDS: METOPROLOL TART 12.5 MG PER 1/2 TAB PO SCH (08:16)
[2021-11-20] MEDS: CREON-24 CAPSULE PO SCH ×3 (08:16→17:51)
[2021-11-20] MEDS: COLESEVELAM 625 MG TAB (WELCHOL) PO SCH ×2 (08:17→17:52)
[2021-11-20] MEDS: LACTOBACILLUS ACIDOPHILUS CAP (BACID) PO SCH ×2 (08:17→20:21)
[2021-11-20 10:00] VITALS: BP 143/66
[2021-11-20] MEDS: PANTOPRAZOLE 20 MG TAB PO SCH (10:29)
[2021-11-20 13:52] VITALS: BP 141/65
[2021-11-20] MEDS: ACETAMINOPHEN TAB 650MG DOSE (2X325MG) PO PRN (17:51)
[2021-11-20 18:00] VITALS: BP 145/64
[2021-11-20] MEDS: RAMELTEON 8 MG TAB (ROZEREM) PO SCH (20:21)
[2021-11-20 22:00] VITALS: BP 139/62
[2021-11-21 02:00] VITALS: BP 121/61
[2021-11-21] MEDS: LEVOTHYROXINE 75MCG TABLET (0.075MG) PO SCH (05:23)
[2021-11-21 06:00] VITALS: BP 152/70
[2021-11-21] MEDS: DRONABINOL 2.5MG CAP (MARINOL) PO SCH ×3 (08:02→18:08)
[2021-11-21] MEDS: CREON-24 CAPSULE PO SCH ×3 (08:02→18:08)
[2021-11-21] MEDS: COLESEVELAM 625 MG TAB (WELCHOL) PO SCH ×2 (08:02→18:08)
[2021-11-21] MEDS: CREON-12 CAPSULE PO SCH ×3 (08:02→18:08)
[2021-11-21] MEDS: LACTOBACILLUS ACIDOPHILUS CAP (BACID) PO SCH ×2 (08:02→21:12)
[2021-11-21] MEDS: PANTOPRAZOLE 20 MG TAB PO SCH (08:02)
[2021-11-21] MEDS: METOPROLOL TART 12.5 MG PER 1/2 TAB PO SCH (08:03)
[2021-11-21] MEDS: ACETAMINOPHEN TAB 650MG DOSE (2X325MG) PO PRN (10:32)
[2021-11-21 11:30] VITALS: BP 141/70
[2021-11-21 14:00] VITALS: BP 140/66
[2021-11-21] MEDS: D5W/0.9% SODIUM CHLORIDE 1,000 ML IV SCH (14:09)
[2021-11-21 18:00] VITALS: BP 156/72
[2021-11-21] MEDS: RAMELTEON 8 MG TAB (ROZEREM) PO SCH (21:12)
[2021-11-21 22:00] VITALS: BP 140/59
[2021-11-22 02:00] VITALS: BP 145/63
[2021-11-22] MEDS: LEVOTHYROXINE 75MCG TABLET (0.075MG) PO SCH (05:20)
[2021-11-22 05:27] VITALS: BP 162/83
[2021-11-22] MEDS: CREON-12 CAPSULE PO SCH ×3 (08:25→18:34)
[2021-11-22] MEDS: LACTOBACILLUS ACIDOPHILUS CAP (BACID) PO SCH ×2 (08:25→22:34)
[2021-11-22] MEDS: COLESEVELAM 625 MG TAB (WELCHOL) PO SCH ×2 (08:25→18:36)
[2021-11-22] MEDS: METOPROLOL TART 12.5 MG PER 1/2 TAB PO SCH (08:26)
[2021-11-22] MEDS: PANTOPRAZOLE 20 MG TAB PO SCH (08:33)
[2021-11-22] MEDS: DRONABINOL 2.5MG CAP (MARINOL) PO SCH ×3 (08:33→18:34)
[2021-11-22] MEDS: CREON-24 CAPSULE PO SCH ×3 (08:33→18:34)
[2021-11-22 10:00] VITALS: BP 150/80
[2021-11-22] MEDS: D5W/0.9% SODIUM CHLORIDE 1,000 ML IV SCH (10:22)
[2021-11-22 14:00] VITALS: BP 136/66
[2021-11-22 18:00] VITALS: BP 143/65
[2021-11-22] MEDS: ONDANSETRON 4MG ORAL DISINTEGRATING TAB PO PRN (19:01)
[2021-11-22 22:00] VITALS: BP 140/64
[2021-11-22] MEDS: RAMELTEON 8 MG TAB (ROZEREM) PO SCH (22:34)
[2021-11-23 04:28] VITALS: BP 152/69
[2021-11-23] MEDS: LEVOTHYROXINE 75MCG TABLET (0.075MG) PO SCH (05:44)
[2021-11-23] MEDS: D5W/0.9% SODIUM CHLORIDE 1,000 ML IV SCH (06:16)
[2021-11-23] MEDS: CREON-12 CAPSULE PO SCH ×3 (08:40→18:15)
[2021-11-23] MEDS: CREON-24 CAPSULE PO SCH ×3 (08:40→18:15)
[2021-11-23] MEDS: METOPROLOL TART 12.5 MG PER 1/2 TAB PO SCH (08:40)
[2021-11-23] MEDS: LACTOBACILLUS ACIDOPHILUS CAP (BACID) PO SCH ×2 (08:41→20:55)
[2021-11-23] MEDS: PANTOPRAZOLE 20 MG TAB PO SCH (08:41)
[2021-11-23] MEDS: COLESEVELAM 625 MG TAB (WELCHOL) PO SCH ×2 (08:41→18:15)
[2021-11-23] MEDS: DRONABINOL 2.5MG CAP (MARINOL) PO SCH ×3 (08:41→18:15)
[2021-11-23 11:17] VITALS: BP 181/81
[2021-11-23] MEDS ORDERED: **hydrALAZINE HCL** 25 MG TAB PO PRN (12:40)
[2021-11-23 12:48] VITALS: BP 149/55
[2021-11-23] MEDS: amLODIPine 5 MG TAB PO SCH (12:59)
[2021-11-23 14:00] VITALS: BP_SYST 122; BP_DIAS 52; BP_DIAS 54
[2021-11-23] MEDS: PERCOCET 5MG/325MG TAB PO PRN (14:42)
[2021-11-23 18:00] VITALS: BP 121/52
[2021-11-23 20:00] VITALS: BP_SYST 115; BP_SYST 145; BP_DIAS 63; BP_DIAS 69
[2021-11-23] MEDS: RAMELTEON 8 MG TAB (ROZEREM) PO SCH (20:55)
[2021-11-24] VITALS: BP 115/57
[2021-11-24] MEDS: D5W/0.9% SODIUM CHLORIDE 1,000 ML IV SCH (02:05)
[2021-11-24 04:30] VITALS: BP 148/63
[2021-11-24] MEDS: LEVOTHYROXINE 75MCG TABLET (0.075MG) PO SCH (06:10)
[2021-11-24] MEDS: CREON-12 CAPSULE PO SCH ×3 (08:33→18:06)
[2021-11-24] MEDS: amLODIPine 5 MG TAB PO SCH (08:33)
[2021-11-24] MEDS: DRONABINOL 2.5MG CAP (MARINOL) PO SCH ×3 (08:34→18:05)
[2021-11-24] MEDS: CREON-24 CAPSULE PO SCH ×3 (08:34→18:06)
[2021-11-24] MEDS: METOPROLOL TART 12.5 MG PER 1/2 TAB PO SCH (08:34)
[2021-11-24] MEDS: COLESEVELAM 625 MG TAB (WELCHOL) PO SCH ×2 (08:34→18:06)
[2021-11-24] MEDS: PANTOPRAZOLE 20 MG TAB PO SCH (08:34)
[2021-11-24] MEDS: LACTOBACILLUS ACIDOPHILUS CAP (BACID) PO SCH ×2 (08:35→20:23)
[2021-11-24 10:00] VITALS: BP 138/59
[2021-11-24 14:00] VITALS: BP 117/53
[2021-11-24 18:00] VITALS: BP 133/57
[2021-11-24] MEDS: PERCOCET 5MG/325MG TAB PO PRN (18:06)
[2021-11-24] MEDS: ONDANSETRON 4MG ORAL DISINTEGRATING TAB PO PRN (19:09)
[2021-11-24] MEDS: RAMELTEON 8 MG TAB (ROZEREM) PO SCH (20:23)
[2021-11-24 21:00] VITALS: BP 131/57
[2021-11-25] VITALS (7 sets, daily range): BP systolic 102–129; BP diastolic 53–65
[2021-11-25] MEDS: LEVOTHYROXINE 75MCG TABLET (0.075MG) PO SCH (06:30)
[2021-11-25] MEDS: CREON-24 CAPSULE PO SCH ×3 (08:46→18:21)
[2021-11-25] MEDS: CREON-12 CAPSULE PO SCH ×3 (08:46→18:21)
[2021-11-25] MEDS: COLESEVELAM 625 MG TAB (WELCHOL) PO SCH ×2 (08:46→18:21)
[2021-11-25] MEDS: DRONABINOL 2.5MG CAP (MARINOL) PO SCH ×3 (08:48→18:21)
[2021-11-25] MEDS: METOPROLOL TART 12.5 MG PER 1/2 TAB PO SCH (08:56)
[2021-11-25] MEDS: amLODIPine 5 MG TAB PO SCH (09:00)
[2021-11-25] MEDS: LACTOBACILLUS ACIDOPHILUS CAP (BACID) PO SCH ×2 (09:39→20:13)
[2021-11-25] MEDS: PANTOPRAZOLE 20 MG TAB PO SCH (09:39)
[2021-11-25] MEDS: NYSTATIN 100,000 UNITS/GM TOPICAL PWD 15 GM TOP PRN (14:56)
[2021-11-25] MEDS: RAMELTEON 8 MG TAB (ROZEREM) PO SCH (20:13)
[2021-11-25] MEDS: PERCOCET 5MG/325MG TAB PO PRN (20:18)
[2021-11-26 02:00] VITALS: BP 111/54
[2021-11-26] MEDS: LEVOTHYROXINE 75MCG TABLET (0.075MG) PO SCH (05:43)
[2021-11-26 06:00] VITALS: BP 148/69
[2021-11-26] MEDS: DRONABINOL 2.5MG CAP (MARINOL) PO SCH ×4 (07:25→17:37)
[2021-11-26] MEDS: COLESEVELAM 625 MG TAB (WELCHOL) PO SCH ×3 (07:25→17:37)
[2021-11-26] MEDS: CREON-12 CAPSULE PO SCH ×4 (07:25→17:37)
[2021-11-26] MEDS: CREON-24 CAPSULE PO SCH ×4 (07:25→17:37)
[2021-11-26] MEDS: PERCOCET 5MG/325MG TAB PO PRN ×2 (07:26→09:26)
[2021-11-26] MEDS: ONDANSETRON 4MG ORAL DISINTEGRATING TAB PO PRN (07:39)
[2021-11-26] MEDS: METOPROLOL TART 12.5 MG PER 1/2 TAB PO SCH (09:25)
[2021-11-26] MEDS: amLODIPine 5 MG TAB PO SCH (09:25)
[2021-11-26] MEDS: PANTOPRAZOLE 20 MG TAB PO SCH (09:25)
[2021-11-26] MEDS: LACTOBACILLUS ACIDOPHILUS CAP (BACID) PO SCH ×2 (09:25→20:23)
[2021-11-26] MEDS: NYSTATIN 100,000 UNITS/GM TOPICAL PWD 15 GM TOP PRN (09:28)
[2021-11-26 10:00] VITALS: BP 127/60
[2021-11-26 14:00] VITALS: BP 105/47
[2021-11-26] MEDS: RAMELTEON 8 MG TAB (ROZEREM) PO SCH (20:23)
[2021-11-26] MEDS: ACETAMINOPHEN TAB 650MG DOSE (2X325MG) PO PRN (20:23)
[2021-11-26 22:00] VITALS: BP 110/48
[2021-11-27] MEDS: LEVOTHYROXINE 75MCG TABLET (0.075MG) PO SCH (05:43)
[2021-11-27] MEDS: CREON-24 CAPSULE PO SCH ×3 (08:33→18:11)
[2021-11-27] MEDS: LACTOBACILLUS ACIDOPHILUS CAP (BACID) PO SCH ×2 (08:34→20:14)
[2021-11-27] MEDS: COLESEVELAM 625 MG TAB (WELCHOL) PO SCH ×2 (08:34→18:11)
[2021-11-27] MEDS: CREON-12 CAPSULE PO SCH ×3 (08:34→18:11)
[2021-11-27] MEDS: METOPROLOL TART 12.5 MG PER 1/2 TAB PO SCH (08:35)
[2021-11-27] MEDS: amLODIPine 5 MG TAB PO SCH (08:36)
[2021-11-27] MEDS: DRONABINOL 2.5MG CAP (MARINOL) PO SCH ×3 (08:36→18:11)
[2021-11-27] MEDS: PANTOPRAZOLE 20 MG TAB PO SCH (08:36)
[2021-11-27] MEDS: ACETAMINOPHEN TAB 650MG DOSE (2X325MG) PO PRN (12:41)
[2021-11-27 14:00] VITALS: BP 123/59
[2021-11-27] MEDS: RAMELTEON 8 MG TAB (ROZEREM) PO SCH (20:14)
[2021-11-28 02:59] VITALS: BP 149/66
[2021-11-28] MEDS: LEVOTHYROXINE 75MCG TABLET (0.075MG) PO SCH (05:18)
[2021-11-28 06:00] VITALS: BP 157/62
[2021-11-28] MEDS: DRONABINOL 2.5MG CAP (MARINOL) PO SCH ×3 (08:17→17:27)
[2021-11-28] MEDS: PANTOPRAZOLE 20 MG TAB PO SCH (08:17)
[2021-11-28] MEDS: LACTOBACILLUS ACIDOPHILUS CAP (BACID) PO SCH ×2 (08:18→20:53)
[2021-11-28] MEDS: METOPROLOL TART 12.5 MG PER 1/2 TAB PO SCH (08:18)
[2021-11-28] MEDS: amLODIPine 5 MG TAB PO SCH (08:18)
[2021-11-28] MEDS: COLESEVELAM 625 MG TAB (WELCHOL) PO SCH ×2 (08:19→17:27)
[2021-11-28] MEDS: CREON-24 CAPSULE PO SCH ×3 (08:19→17:27)
[2021-11-28] MEDS: CREON-12 CAPSULE PO SCH ×3 (08:19→17:27)
[2021-11-28 14:00] VITALS: BP 151/68
[2021-11-28] MEDS: PERCOCET 5MG/325MG TAB PO PRN (14:53)
[2021-11-28 15:37] VITALS: BP 101/60
[2021-11-28] MEDS: RAMELTEON 8 MG TAB (ROZEREM) PO SCH (20:53)
[2021-11-28 22:00] VITALS: BP 113/54
[2021-11-29 06:00] VITALS: BP 136/74
[2021-11-29] MEDS: LEVOTHYROXINE 75MCG TABLET (0.075MG) PO SCH (06:02)
[2021-11-29] MEDS: CREON-24 CAPSULE PO SCH ×3 (08:16→17:25)
[2021-11-29] MEDS: CREON-12 CAPSULE PO SCH ×3 (08:16→17:25)
[2021-11-29] MEDS: DRONABINOL 2.5MG CAP (MARINOL) PO SCH ×3 (08:17→17:25)
[2021-11-29] MEDS: amLODIPine 5 MG TAB PO SCH (08:17)
[2021-11-29] MEDS: LACTOBACILLUS ACIDOPHILUS CAP (BACID) PO SCH ×2 (08:18→20:28)
[2021-11-29] MEDS: PANTOPRAZOLE 20 MG TAB PO SCH (08:18)
[2021-11-29] MEDS: COLESEVELAM 625 MG TAB (WELCHOL) PO SCH ×2 (08:18→17:25)
[2021-11-29] MEDS: METOPROLOL TART 12.5 MG PER 1/2 TAB PO SCH (08:18)
[2021-11-29] MEDS: PERCOCET 5MG/325MG TAB PO PRN (09:24)
[2021-11-29] MEDS: ONDANSETRON 4MG ORAL DISINTEGRATING TAB PO PRN (09:27)
[2021-11-29 11:36] LABS: BLOOD UREA NITROGEN 9 MG/DL (7-18); CALCIUM LEVEL 7.4 MG/DL (8.8-10.2); CARBON DIOXIDE LEVEL 27 MEQ/L (21-32); CHLORIDE LEVEL 109 MEQ/L (98-107); CREATININE FOR GFR 0.47 MG/DL (0.55-1.30); GLOMERULAR FILTRATION RATE > 60.0 (>32); GLUCOSE, FASTING 97 MG/DL (70-100); MAGNESIUM LEVEL 1.9 MG/DL (1.8-2.4); POTASSIUM SERUM 4.1 MEQ/L (3.5-5.1); SODIUM LEVEL 139 MEQ/L (136-145)
[2021-11-29 12:42] LABS: BASO % 0.8 % (0.0-1.0); EOS # 0.1 10^3/uL (0.0-0.5); EOS % 1.6 % (0.0-3.0); HEMATOCRIT 31.9 % (36.0-47.0); LYMPH # 0.9 10^3/uL (1.5-5.0); LYMPH % 17.2 % (24.0-44.0); MEAN CORPUSCULAR HGB CONC 31.3 g/dl (32.0-36.5); MEAN CORPUSCULAR VOLUME 95.8 fl (80.0-96.0); MONO # 0.2 10^3/uL (0.0-0.8); MONO % 4.3 % (2.0-8.0); NEUTROPHILS # 3.7 10^3/uL (1.5-8.5); NEUTROPHILS % 75.9 % (36.0-66.0); RED BLOOD COUNT 3.33 10^6/uL (4.00-5.40); WHITE BLOOD COUNT 4.9 10^3/uL (4.0-10.0)
[2021-11-29 14:00] VITALS: BP 110/55
[2021-11-29] MEDS: RAMELTEON 8 MG TAB (ROZEREM) PO SCH (20:28)
[2021-11-29 21:00] VITALS: BP 106/51
[2021-11-30] MEDS: LEVOTHYROXINE 75MCG TABLET (0.075MG) PO SCH (05:12)
[2021-11-30 06:00] VITALS: BP 130/62
[2021-11-30] MEDS: CREON-12 CAPSULE PO SCH ×3 (09:13→17:52)
[2021-11-30] MEDS: CREON-24 CAPSULE PO SCH ×3 (09:13→17:52)
[2021-11-30] MEDS: LACTOBACILLUS ACIDOPHILUS CAP (BACID) PO SCH ×2 (09:14→19:58)
[2021-11-30] MEDS: METOPROLOL TART 12.5 MG PER 1/2 TAB PO SCH (09:14)
[2021-11-30] MEDS: amLODIPine 5 MG TAB PO SCH (09:14)
[2021-11-30] MEDS: COLESEVELAM 625 MG TAB (WELCHOL) PO SCH ×2 (09:14→17:53)
[2021-11-30] MEDS: DRONABINOL 2.5MG CAP (MARINOL) PO SCH ×3 (09:17→17:52)
[2021-11-30] MEDS: PANTOPRAZOLE 20 MG TAB PO SCH (09:18)
[2021-11-30 14:00] VITALS: BP 119/53
[2021-11-30] MEDS: RAMELTEON 8 MG TAB (ROZEREM) PO SCH (19:58)
[2021-11-30 21:15] VITALS: BP 116/53
[2021-12-01 05:20] VITALS: BP 135/58
[2021-12-01] MEDS: LEVOTHYROXINE 75MCG TABLET (0.075MG) PO SCH (05:29)
[2021-12-01] MEDS: PANTOPRAZOLE 20 MG TAB PO SCH (08:37)
[2021-12-01] MEDS: LACTOBACILLUS ACIDOPHILUS CAP (BACID) PO SCH ×2 (08:37→21:45)
[2021-12-01] MEDS: CREON-24 CAPSULE PO SCH ×3 (08:37→17:41)
[2021-12-01] MEDS: DRONABINOL 2.5MG CAP (MARINOL) PO SCH ×3 (08:37→17:41)
[2021-12-01] MEDS: CREON-12 CAPSULE PO SCH ×3 (08:37→17:41)
[2021-12-01] MEDS: METOPROLOL TART 12.5 MG PER 1/2 TAB PO SCH (08:38)
[2021-12-01] MEDS: COLESEVELAM 625 MG TAB (WELCHOL) PO SCH ×2 (08:38→17:41)
[2021-12-01] MEDS: amLODIPine 5 MG TAB PO SCH (08:38)
[2021-12-01 14:00] VITALS: BP 130/62
[2021-12-01] MEDS: ENOXAPARIN 40MG/0.4ML SYRINGE (J1650 PER 10MG) SC SCH (14:43)
[2021-12-01] MEDS: RAMELTEON 8 MG TAB (ROZEREM) PO SCH (21:45)
[2021-12-01 22:00] VITALS: BP 113/53
[2021-12-01] MEDS: PERCOCET 5MG/325MG TAB PO PRN (22:46)
[2021-12-02] MEDS: ENOXAPARIN 40MG/0.4ML SYRINGE (J1650 PER 10MG) SC SCH ×2 (01:43→13:06)
[2021-12-02] MEDS: LEVOTHYROXINE 75MCG TABLET (0.075MG) PO SCH (06:21)
[2021-12-02 06:24] VITALS: BP 134/58
[2021-12-02] MEDS: CREON-24 CAPSULE PO SCH ×3 (08:57→17:37)
[2021-12-02] MEDS: DRONABINOL 2.5MG CAP (MARINOL) PO SCH ×3 (08:58→17:38)
[2021-12-02] MEDS: COLESEVELAM 625 MG TAB (WELCHOL) PO SCH ×2 (08:58→17:38)
[2021-12-02] MEDS: LACTOBACILLUS ACIDOPHILUS CAP (BACID) PO SCH ×2 (08:58→21:36)
[2021-12-02] MEDS: CREON-12 CAPSULE PO SCH ×3 (08:58→17:37)
[2021-12-02] MEDS: PANTOPRAZOLE 20 MG TAB PO SCH (08:58)
[2021-12-02] MEDS: amLODIPine 5 MG TAB PO SCH (08:58)
[2021-12-02] MEDS: METOPROLOL TART 12.5 MG PER 1/2 TAB PO SCH (08:59)
[2021-12-02 12:54] LABS: BASO % 0.8 % (0.0-1.0); EOS # 0.2 10^3/uL (0.0-0.5); EOS % 4.6 % (0.0-3.0); HEMATOCRIT 33.2 % (36.0-47.0); HEMOGLOBIN 10.4 g/dl (12.0-15.5); LYMPH # 0.8 10^3/uL (1.5-5.0); LYMPH % 19.2 % (24.0-44.0); MEAN CORPUSCULAR HEMOGLOBIN 29.9 pg (27.0-33.0); MEAN CORPUSCULAR HGB CONC 31.3 g/dl (32.0-36.5); MEAN CORPUSCULAR VOLUME 95.4 fl (80.0-96.0); MONO # 0.2 10^3/uL (0.0-0.8); MONO % 5.1 % (2.0-8.0); NEUTROPHILS # 2.8 10^3/uL (1.5-8.5); NEUTROPHILS % 70.3 % (36.0-66.0); PLATELET COUNT, AUTOMATED 239 10^3/uL (150-450); RED BLOOD COUNT 3.48 10^6/uL (4.00-5.40)
[2021-12-02] MEDS: PERCOCET 5MG/325MG TAB PO PRN ×2 (13:16→21:37)
[2021-12-02 14:09] LABS: ALBUMIN 1.2 GM/DL (3.2-5.2); ALT/SGPT 12 U/L (12-78); BILIRUBIN,TOTAL 0.2 MG/DL (0.2-1.0); BLOOD UREA NITROGEN 7 MG/DL (7-18); CALCIUM LEVEL 7.4 MG/DL (8.8-10.2); CARBON DIOXIDE LEVEL 32 MEQ/L (21-32); CHLORIDE LEVEL 106 MEQ/L (98-107); CREATININE FOR GFR 0.48 MG/DL (0.55-1.30); GLOMERULAR FILTRATION RATE > 60.0 (>32); GLUCOSE, FASTING 90 MG/DL (70-100); MAGNESIUM LEVEL 1.9 MG/DL (1.8-2.4); SODIUM LEVEL 138 MEQ/L (136-145); TOTAL PROTEIN 6.2 GM/DL (6.4-8.2)
[2021-12-02 21:28] VITALS: BP 125/60
[2021-12-02] MEDS: RAMELTEON 8 MG TAB (ROZEREM) PO SCH (21:36)
[2021-12-02] MEDS: ONDANSETRON 4MG ORAL DISINTEGRATING TAB PO PRN (21:46)
[2021-12-03] MEDS: ENOXAPARIN 40MG/0.4ML SYRINGE (J1650 PER 10MG) SC SCH (01:14)
[2021-12-03] MEDS: LEVOTHYROXINE 75MCG TABLET (0.075MG) PO SCH (05:47)
[2021-12-03 05:52] VITALS: BP 126/60
[2021-12-03] MEDS: CREON-12 CAPSULE PO SCH ×3 (08:55→17:47)
[2021-12-03] MEDS: CREON-24 CAPSULE PO SCH ×3 (08:55→17:48)
[2021-12-03] MEDS: COLESEVELAM 625 MG TAB (WELCHOL) PO SCH ×2 (08:55→17:48)
[2021-12-03] MEDS: APIXABAN 2.5 MG TAB (ELIQUIS) PO SCH ×2 (08:56→21:07)
[2021-12-03] MEDS: DRONABINOL 2.5MG CAP (MARINOL) PO SCH ×3 (08:56→17:47)
[2021-12-03] MEDS: PANTOPRAZOLE 20 MG TAB PO SCH (08:56)
[2021-12-03] MEDS: LACTOBACILLUS ACIDOPHILUS CAP (BACID) PO SCH ×2 (08:56→21:07)
[2021-12-03] MEDS: amLODIPine 5 MG TAB PO SCH (08:58)
[2021-12-03] MEDS: METOPROLOL TART 12.5 MG PER 1/2 TAB PO SCH (08:58)
[2021-12-03 14:00] VITALS: BP 104/52
[2021-12-03 14:17] LABS: HEMATOCRIT 30.9 % (36.0-47.0); HEMOGLOBIN 9.7 g/dl (12.0-15.5)
[2021-12-03] MEDS: RAMELTEON 8 MG TAB (ROZEREM) PO SCH (21:07)
[2021-12-03] MEDS: ACETAMINOPHEN TAB 650MG DOSE (2X325MG) PO PRN (21:11)
[2021-12-03 22:00] VITALS: BP 105/48
[2021-12-04 05:05] VITALS: BP 126/54
[2021-12-04] MEDS: LEVOTHYROXINE 75MCG TABLET (0.075MG) PO SCH (05:26)
[2021-12-04] MEDS: CREON-12 CAPSULE PO SCH ×3 (09:01→17:40)
[2021-12-04] MEDS: LACTOBACILLUS ACIDOPHILUS CAP (BACID) PO SCH ×2 (09:01→19:50)
[2021-12-04] MEDS: PANTOPRAZOLE 20 MG TAB PO SCH (09:01)
[2021-12-04] MEDS: COLESEVELAM 625 MG TAB (WELCHOL) PO SCH ×2 (09:01→17:39)
[2021-12-04] MEDS: CREON-24 CAPSULE PO SCH ×3 (09:06→17:39)
[2021-12-04] MEDS: DRONABINOL 2.5MG CAP (MARINOL) PO SCH ×3 (09:06→17:39)
[2021-12-04] MEDS: METOPROLOL TART 12.5 MG PER 1/2 TAB PO SCH (09:07)
[2021-12-04] MEDS: amLODIPine 5 MG TAB PO SCH (09:07)
[2021-12-04] MEDS: APIXABAN 2.5 MG TAB (ELIQUIS) PO SCH ×2 (09:07→19:51)
[2021-12-04 15:00] VITALS: BP 122/56
[2021-12-04] MEDS: PERCOCET 5MG/325MG TAB PO PRN (18:59)
[2021-12-04] MEDS: ONDANSETRON 4MG ORAL DISINTEGRATING TAB PO PRN (19:40)
[2021-12-04] MEDS: RAMELTEON 8 MG TAB (ROZEREM) PO SCH (19:51)
[2021-12-04 22:00] VITALS: BP 142/64
[2021-12-05] MEDS: LEVOTHYROXINE 75MCG TABLET (0.075MG) PO SCH (05:20)
[2021-12-05 06:00] VITALS: BP 145/63
[2021-12-05] MEDS: DRONABINOL 2.5MG CAP (MARINOL) PO SCH (09:13)
[2021-12-05] MEDS: COLESEVELAM 625 MG TAB (WELCHOL) PO SCH ×2 (09:13→17:34)
[2021-12-05] MEDS: METOPROLOL TART 12.5 MG PER 1/2 TAB PO SCH (09:14)
[2021-12-05] MEDS: amLODIPine 5 MG TAB PO SCH (09:14)
[2021-12-05] MEDS: PANTOPRAZOLE 20 MG TAB PO SCH (09:14)
[2021-12-05] MEDS: LACTOBACILLUS ACIDOPHILUS CAP (BACID) PO SCH (09:14)
[2021-12-05] MEDS: APIXABAN 2.5 MG TAB (ELIQUIS) PO SCH ×2 (09:15→22:16)
[2021-12-05] MEDS: CREON-24 CAPSULE PO SCH ×3 (09:21→17:34)
[2021-12-05] MEDS: CREON-12 CAPSULE PO SCH ×3 (09:21→17:33)
[2021-12-05 20:02] VITALS: BP 139/74
[2021-12-05] MEDS: RAMELTEON 8 MG TAB (ROZEREM) PO SCH (22:16)
[2021-12-05] MEDS: ACETAMINOPHEN TAB 650MG DOSE (2X325MG) PO PRN (22:33)
[2021-12-06 06:00] VITALS: BP 148/82
[2021-12-06] MEDS: LEVOTHYROXINE 75MCG TABLET (0.075MG) PO SCH (06:32)
[2021-12-06] MEDS: CREON-24 CAPSULE PO SCH ×3 (10:30→17:41)
[2021-12-06] MEDS: COLESEVELAM 625 MG TAB (WELCHOL) PO SCH ×2 (10:30→17:41)
[2021-12-06] MEDS: CREON-12 CAPSULE PO SCH ×3 (10:30→17:41)
[2021-12-06] MEDS: APIXABAN 2.5 MG TAB (ELIQUIS) PO SCH ×2 (10:31→21:01)
[2021-12-06] MEDS: amLODIPine 5 MG TAB PO SCH (10:31)
[2021-12-06] MEDS: PANTOPRAZOLE 20 MG TAB PO SCH (10:31)
[2021-12-06] MEDS: METOPROLOL TART 12.5 MG PER 1/2 TAB PO SCH (10:32)
[2021-12-06 14:00] VITALS: BP 115/58
[2021-12-06] MEDS: ONDANSETRON 4MG ORAL DISINTEGRATING TAB PO PRN (17:43)
[2021-12-06] MEDS: RAMELTEON 8 MG TAB (ROZEREM) PO SCH (21:01)
[2021-12-06 22:00] VITALS: BP 116/58
[2021-12-07] MEDS: LEVOTHYROXINE 75MCG TABLET (0.075MG) PO SCH (05:27)
[2021-12-07 06:00] VITALS: BP 134/62
[2021-12-07] MEDS: PANTOPRAZOLE 20 MG TAB PO SCH (07:39)
[2021-12-07 07:40] VITALS: BP 151/78
[2021-12-07] MEDS: amLODIPine 5 MG TAB PO SCH (07:40)
[2021-12-07] MEDS: APIXABAN 2.5 MG TAB (ELIQUIS) PO SCH (07:40)
[2021-12-07] MEDS: METOPROLOL TART 12.5 MG PER 1/2 TAB PO SCH (07:40)
[2021-12-07] MEDS: COLESEVELAM 625 MG TAB (WELCHOL) PO SCH (07:41)
[2021-12-07] MEDS: CREON-24 CAPSULE PO SCH (07:41)
[2021-12-07] MEDS: CREON-12 CAPSULE PO SCH (07:41)
[2021-12-07] MEDS ORDERED: AMLO1TAB24 PO (07:51)
[2021-12-07] MEDS ORDERED: RAME8TAB2 PO (07:51)
[2021-12-07] MEDS ORDERED: PANT20TA6 PO (07:51)
== END 2021-12-07 11:45 | DRG 330 ==
LOC: M ED 10:13 → M ED INP 16:01 → ENRESERV 22:58 → M MSPAV 23:33
PROVIDERS: ADMIT Surgery; ATTEND Surgery
PROC: 0D1B0Z4 Bypass Ileum to Cutaneous, Open Approach (ICD-10-PCS; 2021-11-13)
PROC: 0DTK0ZZ Resection of Ascending Colon, Open Approach (ICD-10-PCS; principal; 2021-11-13 17:42)
PROC: 30233N1 Transfusion of Nonautologous Red Blood Cells into Peripheral Vein, Percutaneous Approach (ICD-10-PCS; 2021-11-18)
DX: K94.09 Other complications of colostomy (principal); K55.1 Chronic vascular disorders of intestine; I50.32 Chronic diastolic (congestive) heart failure; I82.622 Acute embolism and thrombosis of deep veins of left upper extremity; R64 Cachexia; I25.10 Atherosclerotic heart disease of native coronary artery without angina pectoris; I35.0 Nonrheumatic aortic (valve) stenosis; I48.0 Paroxysmal atrial fibrillation; D64.9 Anemia, unspecified; R62.7 Adult failure to thrive; I11.0 Hypertensive heart disease with heart failure; R11.0 Nausea; E03.9 Hypothyroidism, unspecified; R63.0 Anorexia; E78.5 Hyperlipidemia, unspecified; J45.909 Unspecified asthma, uncomplicated; K86.89 Other specified diseases of pancreas; K21.9 Gastro-esophageal reflux disease without esophagitis; G47.00 Insomnia, unspecified; K66.0 Peritoneal adhesions (postprocedural) (postinfection); I70.0 Atherosclerosis of aorta; I87.2 Venous insufficiency (chronic) (peripheral); Z53.8 Procedure and treatment not carried out for other reasons; Z96.643 Presence of artificial hip joint, bilateral; Z87.81 Personal history of (healed) traumatic fracture; Z86.73 Personal history of transient ischemic attack (TIA), and cerebral infarction without residual deficits; Z85.00 Personal history of malignant neoplasm of unspecified digestive organ; Z85.42 Personal history of malignant neoplasm of other parts of uterus; Z95.5 Presence of coronary angioplasty implant and graft; Z86.718 Personal history of other venous thrombosis and embolism; Z85.3 Personal history of malignant neoplasm of breast; Z90.49 Acquired absence of other specified parts of digestive tract; Z87.891 Personal history of nicotine dependence; Z79.01 Long term (current) use of anticoagulants; Z79.899 Other long term (current) drug therapy; Z79.890 Hormone replacement therapy; Z88.5 Allergy status to narcotic agent; Z88.8 Allergy status to other drugs, medicaments and biological substances; Z91.048 Other nonmedicinal substance allergy status; Z68.20 Body mass index [BMI] 20.0-20.9, adult; Y83.1 Surgical operation with implant of artificial internal device as the cause of abnormal reaction of the patient, or of later complication, without mention of misadventure at the time of the procedure

== ENCOUNTER 2021-12-19 06:36 | Emergency (ER) | payer MEDICARE, OTHER ==
[~2021-12-19] VITALS: Ht 144.8 cm; Wt 39.5 kg
[~2021-12-19 06:36] MED LIST changes: +AMLO1TAB24 PO; +CALC500T68 PO; +PANT20TA6 PO; +RAME8TAB2 PO
[2021-12-19] MEDS ORDERED: NS 500 ML IV ONE (08:50)
[2021-12-19] MEDS ORDERED: MORPHINE 2 MG/ML 1ML VIAL IV ONE (08:50)
[2021-12-19 09:18] LABS: BASO # 0.1 10^3/uL (0.0-0.2); BASO % 1.4 % (0.0-1.0); EOS # 0.2 10^3/uL (0.0-0.5); EOS % 3.5 % (0.0-3.0); HEMATOCRIT 35.4 % (36.0-47.0); HEMOGLOBIN 11.4 g/dl (12.0-15.5); LYMPH # 1.3 10^3/uL (1.5-5.0); LYMPH % 26.9 % (24.0-44.0); MEAN CORPUSCULAR HEMOGLOBIN 31.4 pg (27.0-33.0); MEAN CORPUSCULAR HGB CONC 32.2 g/dl (32.0-36.5); MEAN CORPUSCULAR VOLUME 97.5 fl (80.0-96.0); MONO # 0.4 10^3/uL (0.0-0.8); MONO % 7.6 % (2.0-8.0); NEUTROPHILS # 2.9 10^3/uL (1.5-8.5); NEUTROPHILS % 60.2 % (36.0-66.0); PLATELET COUNT, AUTOMATED 308 10^3/uL (150-450); RED BLOOD COUNT 3.63 10^6/uL (4.00-5.40); WHITE BLOOD COUNT 4.8 10^3/uL (4.0-10.0)
[2021-12-19 10:15] LABS: BLOOD UREA NITROGEN 13 MG/DL (7-18); CALCIUM LEVEL 8.8 MG/DL (8.8-10.2); CARBON DIOXIDE LEVEL 26 MEQ/L (21-32); CHLORIDE LEVEL 107 MEQ/L (98-107); CREATININE FOR GFR 0.67 MG/DL (0.55-1.30); GLOMERULAR FILTRATION RATE > 60.0 (>32); GLUCOSE, FASTING 81 MG/DL (70-100); SODIUM LEVEL 134 MEQ/L (136-145)
[2021-12-19] MEDS ORDERED: ULTR50TA8 PO (11:01)
[2021-12-19 11:05] VITALS: BP 133/74
== END 2021-12-19 11:12 | disposition home or self-care (01) ==
LOC: M ED 06:36 → EDBD 06:36 → M ED 11:12
DX: S51.812A Laceration without foreign body of left forearm, initial encounter (principal); W22.8XXA Striking against or struck by other objects, initial encounter; Y92.012 Bathroom of single-family (private) house as the place of occurrence of the external cause; G89.29 Other chronic pain; R10.9 Unspecified abdominal pain; Z93.3 Colostomy status; I10 Essential (primary) hypertension; J45.909 Unspecified asthma, uncomplicated; E78.00 Pure hypercholesterolemia, unspecified; K86.89 Other specified diseases of pancreas; D61.818 Other pancytopenia; Z85.3 Personal history of malignant neoplasm of breast; Z79.899 Other long term (current) drug therapy; Z79.01 Long term (current) use of anticoagulants; Z79.890 Hormone replacement therapy
CPT/HCPCS: 74019; 80048; 83605; 85025; 96361; 96374; 99284; J2270

== ENCOUNTER 2021-12-25 02:35 | Emergency (ER) | payer MEDICARE, OTHER ==
[~2021-12-25] VITALS: Ht 144.8 cm; Wt 34.1 kg
[2021-12-25 02:35] VITALS: BP 136/64
[~2021-12-25 02:35] MED LIST changes: +ULTR50TA8 PO
== END 2021-12-25 05:32 | disposition left against medical advice (07) ==
LOC: M ED 02:35
DX: Z53.29 Procedure and treatment not carried out because of patient's decision for other reasons (principal)

== ENCOUNTER 2022-01-03 04:09 | Emergency (ER) | payer MEDICARE, OTHER ==
[2022-01-03 04:47] LABS: BASO # 0.1 10^3/uL (0.0-0.2); BASO % 1.2 % (0.0-1.0); EOS # 0.4 10^3/uL (0.0-0.5); EOS % 8.7 % (0.0-3.0); HEMATOCRIT 33.9 % (36.0-47.0); HEMOGLOBIN 10.8 g/dl (12.0-15.5); LYMPH # 1.3 10^3/uL (1.5-5.0); LYMPH % 26.3 % (24.0-44.0); MEAN CORPUSCULAR HEMOGLOBIN 31.3 pg (27.0-33.0); MEAN CORPUSCULAR HGB CONC 31.9 g/dl (32.0-36.5); MEAN CORPUSCULAR VOLUME 98.3 fl (80.0-96.0); MONO # 0.4 10^3/uL (0.0-0.8); MONO % 7.9 % (2.0-8.0); NEUTROPHILS # 2.7 10^3/uL (1.5-8.5); NEUTROPHILS % 55.7 % (36.0-66.0); PLATELET COUNT, AUTOMATED 230 10^3/uL (150-450); RED BLOOD COUNT 3.45 10^6/uL (4.00-5.40); WHITE BLOOD COUNT 4.8 10^3/uL (4.0-10.0)
[2022-01-03 04:57] LABS: INR 0.92; PROTHROMBIN TIME 12.8 SECONDS (12.7-14.5)
[2022-01-03 07:12] LABS: ALT/SGPT 22 U/L (12-78); BILIRUBIN,DIRECT < 0.1 MG/DL (0.0-0.2); BILIRUBIN,TOTAL 0.2 MG/DL (0.2-1.0); BLOOD UREA NITROGEN 11 MG/DL (7-18); CALCIUM LEVEL 8.3 MG/DL (8.8-10.2); CARBON DIOXIDE LEVEL 23 MEQ/L (21-32); CHLORIDE LEVEL 111 MEQ/L (98-107); CK-MB VALUE MASS 1.4 NG/ML (<3.6); CREATININE FOR GFR 0.65 MG/DL (0.55-1.30); GLOMERULAR FILTRATION RATE > 60.0 (>32); GLUCOSE, FASTING 83 MG/DL (70-100); LIPASE 28 U/L (73-393); MB/CK RELATIVE INDEX 3.5 (< OR =4); NT-PRO BNP 1265 PG/ML (<450); POTASSIUM SERUM 4.8 MEQ/L (3.5-5.1); SODIUM LEVEL 138 MEQ/L (136-145); TOTAL PROTEIN 6.8 GM/DL (6.4-8.2)
[2022-01-03] MEDS ORDERED: ONDANSETRON 4MG 2ML VIAL IV ONE (07:20)
[2022-01-03] MEDS ORDERED: MORPHINE 2 MG/ML 1ML VIAL IV PRN (07:20)
[2022-01-03 07:45] VITALS: BP 154/73
[2022-01-03] MEDS ORDERED: traMADol 50 MG TAB PO ONE (08:10)
[2022-01-03] MEDS ORDERED: ONDA-83 PO (08:48)
[2022-01-03] MEDS ORDERED: TRAM50TA2 PO (08:49)
== END 2022-01-03 09:55 | disposition home or self-care (01) ==
LOC: EDBD 04:09 → M ED 04:09
DX: R07.89 Other chest pain (principal); I48.91 Unspecified atrial fibrillation; I11.0 Hypertensive heart disease with heart failure; I50.9 Heart failure, unspecified; Z86.718 Personal history of other venous thrombosis and embolism; Z85.3 Personal history of malignant neoplasm of breast; J44.9 Chronic obstructive pulmonary disease, unspecified; E03.9 Hypothyroidism, unspecified; Z90.49 Acquired absence of other specified parts of digestive tract; I73.9 Peripheral vascular disease, unspecified; Z88.8 Allergy status to other drugs, medicaments and biological substances; Z91.048 Other nonmedicinal substance allergy status; Z79.01 Long term (current) use of anticoagulants; Z79.899 Other long term (current) drug therapy; Z79.890 Hormone replacement therapy
CPT/HCPCS: 71045; 80048; 80076; 82550; 82553; 83690; 83880; 84484; 85025; 85610; 87486; 87581; 87633; 87798; 93005; 93041; 94760; 96374; 96375; 99285; J2270; J2405

== ENCOUNTER 2022-01-13 15:48 | Emergency (ER) | payer MEDICARE, OTHER ==
[~2022-01-13] VITALS: Ht 144.8 cm; Wt 34.1 kg
[~2022-01-13 15:48] MED LIST changes: +ONDA-83 PO
[2022-01-13] MEDS ORDERED: NS 500 ML IV ONE (18:35)
[2022-01-13] MEDS ORDERED: ISOVUE-370 76% 100ML VIAL As Ordered ONE (19:12)
[2022-01-13 19:16] LABS: BASO # 0.1 10^3/uL (0.0-0.2); BASO % 0.8 % (0.0-1.0); EOS # 0.2 10^3/uL (0.0-0.5); EOS % 3.3 % (0.0-3.0); HEMATOCRIT 32.1 % (36.0-47.0); HEMOGLOBIN 10.5 g/dl (12.0-15.5); MEAN CORPUSCULAR HGB CONC 32.7 g/dl (32.0-36.5); MEAN CORPUSCULAR VOLUME 97.9 fl (80.0-96.0); MONO # 0.4 10^3/uL (0.0-0.8); MONO % 6.7 % (2.0-8.0); NEUTROPHILS # 4.3 10^3/uL (1.5-8.5); NEUTROPHILS % 71.9 % (36.0-66.0); PLATELET COUNT, AUTOMATED 261 10^3/uL (150-450); RED BLOOD COUNT 3.28 10^6/uL (4.00-5.40)
[2022-01-13 19:34] LABS: INR 1.11; PROTHROMBIN TIME 14.7 SECONDS (12.7-14.5)
[2022-01-13 19:35] LABS: PARTIAL THROMBOPLASTIN TIME 37.7 SECONDS (25.9-37.0)
[2022-01-13] MEDS ORDERED: LIDOCAINE W/EPINEPHRINE 1% 20ML VIAL SC ONE (20:15)
[2022-01-13] MEDS ORDERED: DOXY-443 PO (20:43)
[2022-01-13] MEDS ORDERED: DOXYCYCLINE HYCLATE 100MG TABLET PO ONE (20:45)
[2022-01-13 21:05] VITALS: BP 170/76
== END 2022-01-13 21:18 | disposition home or self-care (01) ==
LOC: M ED 15:48
DX: L02.213 Cutaneous abscess of chest wall (principal); Z91.048 Other nonmedicinal substance allergy status; Z79.01 Long term (current) use of anticoagulants; Z79.899 Other long term (current) drug therapy
CPT/HCPCS: 10060; 74177; 80047; 83605; 85025; 85610; 85730; 86850; 86870; 86880; 86900; 86901; 87070; 87077; 87186; 87205; 96360; 96361; 99283; Q9967

== ENCOUNTER 2022-02-05 18:36 | Emergency (ER) | payer MEDICARE, OTHER ==
[~2022-02-05] VITALS: Ht 144.8 cm; Wt 34.1 kg
[~2022-02-05 18:36] MED LIST changes: +DOXY-443 PO
[2022-02-05] MEDS ORDERED: BENZOIN TINCTURE 60ML BTL TOP ONE (20:05)
[2022-02-05 23:00] VITALS: BP 128/79
== END 2022-02-05 23:15 | disposition home or self-care (01) ==
LOC: M ED 18:36
DX: Z43.3 Encounter for attention to colostomy (principal); M70.61 Trochanteric bursitis, right hip; K94.01 Colostomy hemorrhage; Z96.641 Presence of right artificial hip joint; Z79.01 Long term (current) use of anticoagulants; Z79.890 Hormone replacement therapy; Z79.899 Other long term (current) drug therapy; Z91.89 Other specified personal risk factors, not elsewhere classified; Z88.8 Allergy status to other drugs, medicaments and biological substances

== ENCOUNTER → 2022-02-17 | Outpatient (CLI) | payer MEDICARE, OTHER | LOC: M PLAIMG 10:49 | PROVIDERS: ATTEND Family Medicine | DX: R91.8 Other nonspecific abnormal finding of lung field (principal); R07.81 Pleurodynia ==

== ENCOUNTER 2022-02-20 14:25 | Emergency (ER) | payer MEDICARE, OTHER ==
[~2022-02-20] VITALS: Ht 144.8 cm; Wt 36.8 kg
[2022-02-20] MEDS ORDERED: MORPHINE 4 MG/ML 1ML VIAL/SYRINGE IV ONE (16:05)
[2022-02-20] MEDS ORDERED: NS 500 ML IV ONE (16:05)
[2022-02-20 16:31] LABS: BASO # 0.1 10^3/uL (0.0-0.2); BASO % 1.2 % (0.0-1.0); EOS # 0.3 10^3/uL (0.0-0.5); EOS % 5.2 % (0.0-3.0); HEMOGLOBIN 11.1 g/dl (12.0-15.5); LYMPH # 0.9 10^3/uL (1.5-5.0); LYMPH % 19.5 % (24.0-44.0); MEAN CORPUSCULAR HEMOGLOBIN 32.8 pg (27.0-33.0); MEAN CORPUSCULAR HGB CONC 32.6 g/dl (32.0-36.5); MEAN CORPUSCULAR VOLUME 100.6 fl (80.0-96.0); MONO # 0.3 10^3/uL (0.0-0.8); MONO % 6.8 % (2.0-8.0); NEUTROPHILS # 3.2 10^3/uL (1.5-8.5); NEUTROPHILS % 66.9 % (36.0-66.0); PLATELET COUNT, AUTOMATED 216 10^3/uL (150-450); RED BLOOD COUNT 3.38 10^6/uL (4.00-5.40); WHITE BLOOD COUNT 4.8 10^3/uL (4.0-10.0)
[2022-02-20 16:41] LABS: ALBUMIN 2.2 GM/DL (3.2-5.2); ALT/SGPT 30 U/L (12-78); BILIRUBIN,DIRECT 0.2 MG/DL (0.0-0.2); BILIRUBIN,TOTAL 0.2 MG/DL (0.2-1.0); BLOOD UREA NITROGEN 6 MG/DL (7-18); CALCIUM LEVEL 7.7 MG/DL (8.8-10.2); CARBON DIOXIDE LEVEL 24 MEQ/L (21-32); CHLORIDE LEVEL 111 MEQ/L (98-107); CREATININE FOR GFR 0.72 MG/DL (0.55-1.30); GLOMERULAR FILTRATION RATE > 60.0 (>32); GLUCOSE, FASTING 92 MG/DL (70-100); LIPASE 26 U/L (73-393); POTASSIUM SERUM 4.9 MEQ/L (3.5-5.1); SODIUM LEVEL 140 MEQ/L (136-145); TOTAL PROTEIN 6.1 GM/DL (6.4-8.2)
[2022-02-20 16:44] LABS: CK-MB VALUE MASS 3.4 NG/ML (<3.6); MB/CK RELATIVE INDEX 8.5 (< OR =4)
[2022-02-20] MEDS ORDERED: ISOVUE-370 76% 100ML VIAL As Ordered ONE (16:57)
[2022-02-20] MEDS ORDERED: diphenhydrAMINE 25MG CAP PO ONE (17:40)
[2022-02-20 18:42] LABS: RSV AMPLIFICATION NEGATIVE (NEGATIVE)
[2022-02-20 18:44] LABS: CK-MB VALUE MASS 3.1 NG/ML (<3.6); MB/CK RELATIVE INDEX 3.16 (< OR =4)
[2022-02-20 18:51] LABS: INR 0.98; PROTHROMBIN TIME 13.2 SECONDS (12.5-14.5)
[2022-02-20 21:21] VITALS: BP 162/72
== END 2022-02-20 21:23 | disposition home or self-care (01) ==
LOC: M ED 14:25
DX: R10.9 Unspecified abdominal pain (principal); K52.9 Noninfective gastroenteritis and colitis, unspecified; J90 Pleural effusion, not elsewhere classified; I48.91 Unspecified atrial fibrillation; I50.9 Heart failure, unspecified; I10 Essential (primary) hypertension; K57.92 Diverticulitis of intestine, part unspecified, without perforation or abscess without bleeding; E07.9 Disorder of thyroid, unspecified; Z93.3 Colostomy status; Z79.890 Hormone replacement therapy; Z79.01 Long term (current) use of anticoagulants; Z79.899 Other long term (current) drug therapy; Z91.89 Other specified personal risk factors, not elsewhere classified; Z88.8 Allergy status to other drugs, medicaments and biological substances
CPT/HCPCS: 36415; 71046; 74177; 80047; 80048; 80076; 81000; 81015; 82550; 82553; 83605; 83690; 84484; 85025; 85610; 87086; 87507; 87631; 93005; 96361; 96374; 99284; J2270; Q9967

== ENCOUNTER 2022-03-21 15:36 | Inpatient (IN) | payer MEDICARE, OTHER ==
[~2022-03-21] VITALS: Ht 144.8 cm; Wt 37.7 kg
[2022-03-21] MEDS ORDERED: CEPH500C PO (16:25)
[2022-03-21] MEDS ORDERED: methylPREDNISolone 125MG 2ML VIAL IV ONE (17:00)
[2022-03-21] MEDS: COMBIVENT RESPIMAT 100-20MCG INHALER 4GM INH SCH ×2 (17:14→17:26)
[2022-03-21 17:16] LABS: BASO % 0.9 % (0.0-1.0); EOS # 0.2 10^3/uL (0.0-0.5); EOS % 3.9 % (0.0-3.0); HEMATOCRIT 35.9 % (36.0-47.0); HEMOGLOBIN 11.7 g/dl (12.0-15.5); LYMPH # 0.7 10^3/uL (1.5-5.0); LYMPH % 15.7 % (24.0-44.0); MEAN CORPUSCULAR HEMOGLOBIN 32.1 pg (27.0-33.0); MEAN CORPUSCULAR HGB CONC 32.6 g/dl (32.0-36.5); MEAN CORPUSCULAR VOLUME 98.6 fl (80.0-96.0); MONO # 0.4 10^3/uL (0.0-0.8); MONO % 8.4 % (2.0-8.0); NEUTROPHILS # 3.3 10^3/uL (1.5-8.5); NEUTROPHILS % 70.7 % (36.0-66.0); PLATELET COUNT, AUTOMATED 218 10^3/uL (150-450); RED BLOOD COUNT 3.64 10^6/uL (4.00-5.40); WHITE BLOOD COUNT 4.7 10^3/uL (4.0-10.0)
[2022-03-21 17:20] LABS: VENOUS BASE EXCESS -6.3 (-2.0-2.0); VENOUS HCO3 20.4 MEQ/L (23.0-27.0); VENOUS O2 SATURATION 77.2 % (60.0-80.0); VENOUS PARTIAL PRESSURE CO2 45.1 mmHg (38.0-50.0); VENOUS PARTIAL PRESSURE O2 43.3 mmHg (30.0-50.0); VENOUS PH 7.274 UNITS (7.330-7.430); VENOUS STANDARD HCO3 18.9 MEQ/L; VENOUS TOTAL CO2 21.8 MEQ/L (24.0-28.0)
[2022-03-21 18:20] LABS: ALBUMIN 2.4 G/DL (3.2-5.2); ALT/SGPT 33 U/L (7.0-40); BILIRUBIN,DIRECT < 0.1 MG/DL (<0.4); BILIRUBIN,TOTAL 0.2 MG/DL (0.3-1.2); BLOOD UREA NITROGEN 10 MG/DL (9-23); CALCIUM LEVEL 7.5 MG/DL (8.3-10.6); CARBON DIOXIDE LEVEL 20 MMOL/L (20-31); CHLORIDE LEVEL 111 MMOL/L (98-107); CREATININE FOR GFR 0.97 MG/DL (0.55-1.30); GLOMERULAR FILTRATION RATE 58.5 (>32); GLUCOSE, FASTING 100 MG/DL (74-106); POTASSIUM SERUM 5.1 MMOL/L (3.5-5.1); SODIUM LEVEL 139 MMOL/L (136-145); THYROID STIMULATING HORMONE 3.529 uIU/ML (0.55-4.78); TOTAL PROTEIN 6.4 G/DL (5.7-8.2)
[2022-03-21] MEDS ORDERED: guaiFENesin SYRUP 200MG 10ML UDC PO PRN (18:45)
[2022-03-21] MEDS ORDERED: ACETAMINOPHEN TAB 650MG DOSE (2X325MG) PO PRN (18:45)
[2022-03-21] MEDS ORDERED: NS 1,000 ML IV SCH (19:20)
[2022-03-21] MEDS ORDERED: ONDANSETRON 4MG ORAL DISINTEGRATING TAB PO PRN (20:00)
[2022-03-21] MEDS ORDERED: HOME MED LIST COMPLETE! XX SCH (20:20)
[2022-03-21] MEDS ORDERED: ONDA4TAB6 PO (20:20)
[2022-03-21] MEDS ORDERED: PANT20TA51 PO (20:20)
[2022-03-21] MEDS ORDERED: AMLO1TAB24 PO (20:20)
[2022-03-21] MEDS ORDERED: PROB1CAP10 PO (20:20)
[2022-03-21 20:29] LABS: CK-MB VALUE MASS 2.3 NG/ML (<3.6); MB/CK RELATIVE INDEX 6.76 (< OR =4)
[2022-03-21 20:42] LABS: INR 0.97; PARTIAL THROMBOPLASTIN TIME 34.8 SECONDS (24.8-34.2); PROTHROMBIN TIME 13.1 SECONDS (12.5-14.5)
[2022-03-21] MEDS: IPRATROPIUM 0.02% SOLN 0.5MG 2.5ML NEB INH SCH (20:44)
[2022-03-21] MEDS: LEVALBUTEROL 1.25 MG/0.5 ML CONCENTRATE NEB INH SCH (20:44)
[2022-03-21] MEDS: cefTRIAXone SOD 1 GM in D5W MINI-BAG PLUS 50 ML IV SCH (21:44)
[2022-03-22] MEDS: IPRATROPIUM 0.02% SOLN 0.5MG 2.5ML NEB INH SCH ×4 (00:58→20:15)
[2022-03-22] MEDS: LEVALBUTEROL 1.25 MG/0.5 ML CONCENTRATE NEB INH SCH ×4 (00:58→20:15)
[2022-03-22] MEDS: LEVOTHYROXINE 75MCG TABLET (0.075MG) PO SCH (06:22)
[2022-03-22 08:00] VITALS: BP 166/73
[2022-03-22] MEDS: APIXABAN 2.5 MG TAB (ELIQUIS) PO SCH ×2 (08:43→20:09)
[2022-03-22] MEDS: methylPREDNISolone 40MG 1ML VIAL IV SCH (08:43)
[2022-03-22] MEDS: AZITHROMYCIN 250MG TABLET PO SCH (08:43)
[2022-03-22] MEDS: amLODIPine 5 MG TAB PO SCH (08:44)
[2022-03-22] MEDS: PANTOPRAZOLE 20 MG TAB PO SCH (10:07)
[2022-03-22] MEDS: COLESEVELAM 625 MG TAB (WELCHOL) PO SCH ×2 (10:07→20:09)
[2022-03-22 10:14] LABS: BASO % 0.2 % (0.0-1.0); HEMOGLOBIN 10.8 g/dl (12.0-15.5); LYMPH # 0.6 10^3/uL (1.5-5.0); LYMPH % 12.8 % (24.0-44.0); MEAN CORPUSCULAR HEMOGLOBIN 32.2 pg (27.0-33.0); MEAN CORPUSCULAR HGB CONC 32.7 g/dl (32.0-36.5); MEAN CORPUSCULAR VOLUME 98.5 fl (80.0-96.0); MONO # 0.2 10^3/uL (0.0-0.8); MONO % 4.7 % (2.0-8.0); NEUTROPHILS % 82.1 % (36.0-66.0); PLATELET COUNT, AUTOMATED 193 10^3/uL (150-450); RED BLOOD COUNT 3.35 10^6/uL (4.00-5.40); WHITE BLOOD COUNT 4.9 10^3/uL (4.0-10.0)
[2022-03-22 10:53] LABS: ALBUMIN 2.2 G/DL (3.2-5.2); ALT/SGPT 26 U/L (7.0-40); BILIRUBIN,TOTAL < 0.2 MG/DL (0.3-1.2); BLOOD UREA NITROGEN 12 MG/DL (9-23); CALCIUM LEVEL 7.8 MG/DL (8.3-10.6); CARBON DIOXIDE LEVEL 18 MMOL/L (20-31); CHLORIDE LEVEL 108 MMOL/L (98-107); CREATININE FOR GFR 0.61 MG/DL (0.55-1.30); GLOMERULAR FILTRATION RATE > 60.0 (>32); GLUCOSE, FASTING 204 MG/DL (74-106); MAGNESIUM LEVEL 1.6 MG/DL (1.8-2.4); POTASSIUM SERUM 4.2 MMOL/L (3.5-5.1); SODIUM LEVEL 137 MMOL/L (136-145); TOTAL PROTEIN 6.1 G/DL (5.7-8.2)
[2022-03-22 14:30] VITALS: BP 151/82
[2022-03-22] MEDS: ZENPEP 20000 UNIT PO SCH (18:09)
[2022-03-22] MEDS: cefTRIAXone SOD 1 GM in D5W MINI-BAG PLUS 50 ML IV SCH (20:09)
[2022-03-22 20:13] LABS: HEMATOCRIT 28.5 % (36.0-47.0); HEMOGLOBIN 9.5 g/dl (12.0-15.5)
[2022-03-22 22:00] VITALS: BP 122/62
[2022-03-23] MEDS ORDERED: UNRESOLVED PATIENT OWN MED ORDER XX SCH (00:01)
[2022-03-23] MEDS: LEVALBUTEROL 1.25 MG/0.5 ML CONCENTRATE NEB INH SCH ×3 (02:29→13:55)
[2022-03-23] MEDS: IPRATROPIUM 0.02% SOLN 0.5MG 2.5ML NEB INH SCH ×3 (02:29→13:55)
[2022-03-23 05:30] VITALS: BP 153/82
[2022-03-23] MEDS: LEVOTHYROXINE 75MCG TABLET (0.075MG) PO SCH (06:03)
[2022-03-23] MEDS: ZENPEP 20000 UNIT PO SCH ×2 (08:53→12:58)
[2022-03-23] MEDS: methylPREDNISolone 40MG 1ML VIAL IV SCH (08:53)
[2022-03-23 09:08] LABS: BASO % 0.3 % (0.0-1.0); EOS % 0.3 % (0.0-3.0); HEMATOCRIT 33.3 % (36.0-47.0); HEMOGLOBIN 10.8 g/dl (12.0-15.5); LYMPH # 0.8 10^3/uL (1.5-5.0); LYMPH % 13.4 % (24.0-44.0); MEAN CORPUSCULAR HEMOGLOBIN 32.3 pg (27.0-33.0); MEAN CORPUSCULAR HGB CONC 32.4 g/dl (32.0-36.5); MEAN CORPUSCULAR VOLUME 99.7 fl (80.0-96.0); MONO # 0.4 10^3/uL (0.0-0.8); MONO % 6.4 % (2.0-8.0); NEUTROPHILS # 4.7 10^3/uL (1.5-8.5); NEUTROPHILS % 79.3 % (36.0-66.0); PLATELET COUNT, AUTOMATED 206 10^3/uL (150-450); RED BLOOD COUNT 3.34 10^6/uL (4.00-5.40)
[2022-03-23 09:20] VITALS: BP 149/83
[2022-03-23] MEDS: amLODIPine 5 MG TAB PO SCH (09:20)
[2022-03-23] MEDS: APIXABAN 2.5 MG TAB (ELIQUIS) PO SCH (09:20)
[2022-03-23] MEDS: PANTOPRAZOLE 20 MG TAB PO SCH (09:20)
[2022-03-23] MEDS: AZITHROMYCIN 250MG TABLET PO SCH (09:20)
[2022-03-23] MEDS: COLESEVELAM 625 MG TAB (WELCHOL) PO SCH (09:22)
[2022-03-23 10:03] LABS: ALBUMIN 2.1 G/DL (3.2-5.2); ALT/SGPT 25 U/L (7.0-40); BILIRUBIN,TOTAL < 0.2 MG/DL (0.3-1.2); BLOOD UREA NITROGEN 12 MG/DL (9-23); CALCIUM LEVEL 7.9 MG/DL (8.3-10.6); CARBON DIOXIDE LEVEL 24 MMOL/L (20-31); CHLORIDE LEVEL 108 MMOL/L (98-107); GLOMERULAR FILTRATION RATE > 60.0 (>32); GLUCOSE, FASTING 103 MG/DL (74-106); MAGNESIUM LEVEL 1.7 MG/DL (1.8-2.4); POTASSIUM SERUM 3.9 MMOL/L (3.5-5.1); SODIUM LEVEL 139 MMOL/L (136-145); TOTAL PROTEIN 5.8 G/DL (5.7-8.2)
[2022-03-23] MEDS ORDERED: PRED10PA PO (12:05)
[2022-03-23] MEDS ORDERED: BACT800T5 PO (12:05)
[2022-03-23] MEDS ORDERED: AZIT-12 PO (12:05)
[2022-03-23] MEDS ORDERED: GUAI100S51 PO (12:05)
[2022-03-23 14:00] VITALS: BP 149/86
== END 2022-03-23 16:17 | disposition home or self-care (01) | DRG 202 ==
LOC: M ED 15:36 → M ED INP 18:44 → ENRESERV 03-22 12:23 → M MSPAV 03-22 15:02
PROVIDERS: ADMIT Internal Medicine; ATTEND Family Medicine
DX: J45.901 Unspecified asthma with (acute) exacerbation (principal); I50.32 Chronic diastolic (congestive) heart failure; N39.0 Urinary tract infection, site not specified; K21.9 Gastro-esophageal reflux disease without esophagitis; E78.5 Hyperlipidemia, unspecified; E03.9 Hypothyroidism, unspecified; I11.0 Hypertensive heart disease with heart failure; D64.9 Anemia, unspecified; I25.10 Atherosclerotic heart disease of native coronary artery without angina pectoris; I35.0 Nonrheumatic aortic (valve) stenosis; I48.0 Paroxysmal atrial fibrillation; B97.4 Respiratory syncytial virus as the cause of diseases classified elsewhere; K86.89 Other specified diseases of pancreas; B96.1 Klebsiella pneumoniae [K. pneumoniae] as the cause of diseases classified elsewhere; I25.2 Old myocardial infarction; Z79.01 Long term (current) use of anticoagulants; Z79.890 Hormone replacement therapy; Z79.899 Other long term (current) drug therapy; Z88.8 Allergy status to other drugs, medicaments and biological substances; Z91.048 Other nonmedicinal substance allergy status; Z85.3 Personal history of malignant neoplasm of breast; Z85.41 Personal history of malignant neoplasm of cervix uteri; Z85.09 Personal history of malignant neoplasm of other digestive organs; Z90.49 Acquired absence of other specified parts of digestive tract; Z92.3 Personal history of irradiation; Z92.21 Personal history of antineoplastic chemotherapy; Z86.718 Personal history of other venous thrombosis and embolism; Z95.5 Presence of coronary angioplasty implant and graft; Z93.3 Colostomy status; Z96.643 Presence of artificial hip joint, bilateral; Z87.891 Personal history of nicotine dependence

== ENCOUNTER 2022-04-12 05:10 | Inpatient (IN) | payer MEDICARE, OTHER ==
[~2022-04-12] VITALS: Ht 175.3 cm; Wt 36.8 kg
[~2022-04-12 05:10] MED LIST changes: +BACT800T5 PO; +GUAI100S51 PO; +ONDA4TAB6 PO; +PANT20TA51 PO; +PRED10PA PO; +PROB1CAP10 PO
[2022-04-12] MEDS: LEVOTHYROXINE 75MCG TABLET (0.075MG) PO SCH (06:00)
[2022-04-12] MEDS ORDERED: ONDANSETRON 4MG 2ML VIAL IV ONE (06:55)
[2022-04-12] MEDS ORDERED: MORPHINE 4 MG/ML 1ML VIAL IV ONE (06:55)
[2022-04-12 07:36] LABS: BASO % 0.1 % (0.0-1.0); EOS # 0.1 10^3/uL (0.0-0.5); EOS % 0.7 % (0.0-3.0); HEMATOCRIT 37.5 % (36.0-47.0); HEMOGLOBIN 12.2 g/dl (12.0-15.5); LYMPH # 0.5 10^3/uL (1.5-5.0); LYMPH % 5.8 % (24.0-44.0); MEAN CORPUSCULAR HEMOGLOBIN 32.4 pg (27.0-33.0); MEAN CORPUSCULAR HGB CONC 32.5 g/dl (32.0-36.5); MEAN CORPUSCULAR VOLUME 99.5 fl (80.0-96.0); MONO # 0.3 10^3/uL (0.0-0.8); MONO % 3.3 % (2.0-8.0); NEUTROPHILS # 7.8 10^3/uL (1.5-8.5); NEUTROPHILS % 89.5 % (36.0-66.0); PLATELET COUNT, AUTOMATED 276 10^3/uL (150-450); RED BLOOD COUNT 3.77 10^6/uL (4.00-5.40); WHITE BLOOD COUNT 8.7 10^3/uL (4.0-10.0)
[2022-04-12] MEDS ORDERED: MORPHINE 10 MG/ML 1ML VIAL IM ONE (08:05)
[2022-04-12] MEDS ORDERED: ONDANSETRON 4MG ORAL DISINTEGRATING TAB PO ONE (08:05)
[2022-04-12] MEDS ORDERED: ISOVUE-370 76% 100ML VIAL As Ordered ONE (08:11)
[2022-04-12 08:45] LABS: APPEARANCE, URINE MANUAL CLEAR (CLEAR); COLOR, URINE MANUAL YELLOW (YELLOW)
[2022-04-12 08:46] LABS: BILIRUBIN, URINE MANUAL NEGATIVE (NEGATIVE); BLOOD URINE MANUAL NEGATIVE (NEGATIVE); GLUCOSE, URINE (UA) MANUAL NEGATIVE (NEGATIVE); KETONE, URINE MANUAL NEGATIVE (NEGATIVE); LEUKOCYTE ESTERASE, URINE MAN TRACE (NEGATIVE); NITRITE, URINE MANUAL NEGATIVE (NEGATIVE); PROTEIN, URINE MANUAL NEGATIVE (NEGATIVE); UROBILINOGEN, URINE MANUAL NORMAL (NORMAL)
[2022-04-12] MEDS: APIXABAN 2.5 MG TAB (ELIQUIS) PO SCH (09:00)
[2022-04-12] MEDS: predniSONE 10 MG TAB PO SCH (09:00)
[2022-04-12] MEDS: LABETALOL 100MG TAB PO SCH (09:00)
[2022-04-12] MEDS: PANTOPRAZOLE 20 MG TAB PO SCH (09:00)
[2022-04-12] MEDS: LOSARTAN 50MG TABLET PO SCH (09:00)
[2022-04-12 09:14] LABS: SQUAMOUS EPITHELIAL CELL URINE MOD AMOUNT /hpf (SMALL AMT)
[2022-04-12 09:15] LABS: BACTERIA, URINE MOD AMOUNT; HYALINE CAST, URINE 0-1 /lpf (0-1)
[2022-04-12] MEDS ORDERED: PERCOCET 5MG/325MG TAB PO ONE (09:30)
[2022-04-12] MEDS ORDERED: LABE100T6 PO (11:53)
[2022-04-12] MEDS ORDERED: TRAM50TA2 PO (11:53)
[2022-04-12] MEDS ORDERED: LOSA50TA28 PO (11:53)
[2022-04-12] MEDS ORDERED: AZIT-12 PO (11:53)
[2022-04-12] MEDS ORDERED: AMLO25TA PO (11:53)
[2022-04-12] MEDS ORDERED: PRED10TA2 PO (11:53)
[2022-04-12] MEDS ORDERED: ACET1TAB55 PO (11:55)
[2022-04-12] MEDS ORDERED: HOME MED LIST COMPLETE! XX SCH (12:00)
[2022-04-12 12:28] LABS: RSV AMPLIFICATION NEGATIVE (NEGATIVE)
[2022-04-12] MEDS ORDERED: MORPHINE 2 MG/ML 1ML VIAL IV PRN (12:50)
[2022-04-12] MEDS ORDERED: ONDANSETRON 4MG ORAL DISINTEGRATING TAB PO PRN (12:50)
[2022-04-12] MEDS: CREON-12 CAPSULE PO SCH (18:00)
[2022-04-12] MEDS: CREON-24 CAPSULE PO SCH (18:00)
[2022-04-12] MEDS: COLESEVELAM 625 MG TAB (WELCHOL) PO SCH (21:00)
[2022-04-13] MEDS: APIXABAN 2.5 MG TAB (ELIQUIS) PO SCH ×3 (00:15→20:29)
[2022-04-13] MEDS: LEVOTHYROXINE 75MCG TABLET (0.075MG) PO SCH (06:11)
[2022-04-13 06:24] LABS: BLOOD UREA NITROGEN 9 MG/DL (9-23); CALCIUM LEVEL 7.7 MG/DL (8.3-10.6); CARBON DIOXIDE LEVEL 20 MMOL/L (20-31); CHLORIDE LEVEL 111 MMOL/L (98-107); CREATININE FOR GFR 0.71 MG/DL (0.55-1.30); GLOMERULAR FILTRATION RATE > 60.0 (>32); GLUCOSE, FASTING 76 MG/DL (74-106); SODIUM LEVEL 139 MMOL/L (136-145)
[2022-04-13 06:39] LABS: HEMATOCRIT 39.6 % (36.0-47.0); HEMOGLOBIN 12.3 g/dl (12.0-15.5); MEAN CORPUSCULAR HEMOGLOBIN 32.7 pg (27.0-33.0); MEAN CORPUSCULAR HGB CONC 31.1 g/dl (32.0-36.5); MEAN CORPUSCULAR VOLUME 105.3 fl (80.0-96.0); PLATELET COUNT, AUTOMATED 198 10^3/uL (150-450); RED BLOOD COUNT 3.76 10^6/uL (4.00-5.40); WHITE BLOOD COUNT 6.9 10^3/uL (4.0-10.0)
[2022-04-13 08:00] VITALS: BP 127/76
[2022-04-13 08:22] LABS: ALKALINE PHOSPHATASE 176 U/L (46-116); ALT/SGPT 37 U/L (7.0-40); AST/SGOT 29 U/L (<34); BILIRUBIN,TOTAL 0.3 MG/DL (0.3-1.2); TOTAL PROTEIN 5.2 G/DL (5.7-8.2)
[2022-04-13] MEDS: CREON-12 CAPSULE PO SCH ×3 (10:06→18:22)
[2022-04-13] MEDS: CALCITONIN NASAL SPRAY 3.7ML BTL SCH (10:06)
[2022-04-13] MEDS: CREON-24 CAPSULE PO SCH ×3 (10:07→18:22)
[2022-04-13] MEDS: LOSARTAN 50MG TABLET PO SCH (10:07)
[2022-04-13] MEDS: PANTOPRAZOLE 20 MG TAB PO SCH (10:08)
[2022-04-13] MEDS: predniSONE 10 MG TAB PO SCH (10:08)
[2022-04-13] MEDS: LACTOBACILLUS ACIDOPHILUS CAP (BACID) PO SCH (10:08)
[2022-04-13] MEDS: LABETALOL 100MG TAB PO SCH (10:08)
[2022-04-13] MEDS: COLESEVELAM 625 MG TAB (WELCHOL) PO SCH ×2 (10:08→20:28)
[2022-04-13] MEDS: traMADol 50 MG TAB PO PRN ×2 (10:09→16:17)
[2022-04-13 14:15] VITALS: BP 122/74
[2022-04-13] MEDS: ACETAMINOPHEN 500 MG TAB PO PRN (20:29)
[2022-04-13 21:23] VITALS: BP 124/59
[2022-04-14] MEDS: traMADol 50 MG TAB PO PRN ×2 (01:00→08:40)
[2022-04-14 05:43] VITALS: BP 167/71
[2022-04-14] MEDS: LEVOTHYROXINE 75MCG TABLET (0.075MG) PO SCH (05:45)
[2022-04-14] MEDS: ACETAMINOPHEN 500 MG TAB PO PRN (05:46)
[2022-04-14 06:09] LABS: HEMATOCRIT 33.8 % (36.0-47.0); HEMOGLOBIN 10.7 g/dl (12.0-15.5); MEAN CORPUSCULAR HEMOGLOBIN 32.2 pg (27.0-33.0); MEAN CORPUSCULAR HGB CONC 31.7 g/dl (32.0-36.5); MEAN CORPUSCULAR VOLUME 101.8 fl (80.0-96.0); PLATELET COUNT, AUTOMATED 209 10^3/uL (150-450); RED BLOOD COUNT 3.32 10^6/uL (4.00-5.40); WHITE BLOOD COUNT 5.6 10^3/uL (4.0-10.0)
[2022-04-14 06:36] LABS: BLOOD UREA NITROGEN 13 MG/DL (9-23); CARBON DIOXIDE LEVEL 24 MMOL/L (20-31); CHLORIDE LEVEL 111 MMOL/L (98-107); CREATININE FOR GFR 0.81 MG/DL (0.55-1.30); GLOMERULAR FILTRATION RATE > 60.0 (>32); GLUCOSE, FASTING 89 MG/DL (74-106); POTASSIUM SERUM 4.7 MMOL/L (3.5-5.1); SODIUM LEVEL 141 MMOL/L (136-145)
[2022-04-14] MEDS: predniSONE 10 MG TAB PO SCH (08:38)
[2022-04-14] MEDS: CALCITONIN NASAL SPRAY 3.7ML BTL SCH (08:38)
[2022-04-14 08:39] VITALS: BP 167/71
[2022-04-14] MEDS: LACTOBACILLUS ACIDOPHILUS CAP (BACID) PO SCH (08:39)
[2022-04-14] MEDS: CREON-12 CAPSULE PO SCH ×2 (08:39→12:37)
[2022-04-14] MEDS: CREON-24 CAPSULE PO SCH ×2 (08:39→12:37)
[2022-04-14] MEDS: COLESEVELAM 625 MG TAB (WELCHOL) PO SCH (08:39)
[2022-04-14] MEDS: PANTOPRAZOLE 20 MG TAB PO SCH (08:40)
[2022-04-14] MEDS: LABETALOL 100MG TAB PO SCH (08:40)
[2022-04-14] MEDS: APIXABAN 2.5 MG TAB (ELIQUIS) PO SCH (08:40)
[2022-04-14] MEDS: LOSARTAN 50MG TABLET PO SCH (08:40)
[2022-04-14] MEDS ORDERED: CALC20SPR (10:14)
[2022-04-14 14:00] VITALS: BP 101/50
== END 2022-04-14 15:45 | DRG 543 ==
LOC: EDBD 05:10 → M ED 05:10 → M ED INP 12:49 → M MS5PR 04-13 07:50
PROVIDERS: ADMIT Family Medicine; ATTEND Family Medicine
DX: M48.54XA Collapsed vertebra, not elsewhere classified, thoracic region, initial encounter for fracture (principal); I50.32 Chronic diastolic (congestive) heart failure; K21.9 Gastro-esophageal reflux disease without esophagitis; J45.909 Unspecified asthma, uncomplicated; E78.5 Hyperlipidemia, unspecified; E03.9 Hypothyroidism, unspecified; I11.0 Hypertensive heart disease with heart failure; D64.9 Anemia, unspecified; I48.0 Paroxysmal atrial fibrillation; I35.0 Nonrheumatic aortic (valve) stenosis; I25.10 Atherosclerotic heart disease of native coronary artery without angina pectoris; I25.2 Old myocardial infarction; K86.89 Other specified diseases of pancreas; R29.6 Repeated falls; Z95.5 Presence of coronary angioplasty implant and graft; Z85.3 Personal history of malignant neoplasm of breast; Z85.41 Personal history of malignant neoplasm of cervix uteri; Z90.710 Acquired absence of both cervix and uterus; Z92.3 Personal history of irradiation; Z92.21 Personal history of antineoplastic chemotherapy; Z90.49 Acquired absence of other specified parts of digestive tract; Z93.3 Colostomy status; Z85.09 Personal history of malignant neoplasm of other digestive organs; Z96.643 Presence of artificial hip joint, bilateral; Z79.01 Long term (current) use of anticoagulants; Z79.890 Hormone replacement therapy; Z79.899 Other long term (current) drug therapy; Z88.8 Allergy status to other drugs, medicaments and biological substances; Z91.048 Other nonmedicinal substance allergy status

== ENCOUNTER 2022-04-14 10:39 | Inpatient (IN) | payer MEDICARE, OTHER ==
[~2022-04-14] VITALS: Ht 144.8 cm; Wt 38.9 kg
[~2022-04-14 10:39] MED LIST changes: +ACET1TAB55 PO; +CALC20SPR
[2022-04-14 15:50] VITALS: BP 135/67
[2022-04-14] MEDS: traMADol 50 MG TAB PO PRN ×2 (18:01→22:24)
[2022-04-14] MEDS: COLESEVELAM 625 MG TAB (WELCHOL) PO SCH (18:18)
[2022-04-14] MEDS: CREON-24 CAPSULE PO SCH (18:18)
[2022-04-14] MEDS: CREON-12 CAPSULE PO SCH (18:18)
[2022-04-14 20:00] VITALS: BP 128/70
[2022-04-14] MEDS: COMBIVENT RESPIMAT 100-20MCG INHALER 4GM INH SCH (20:05)
[2022-04-14] MEDS: DOCUSATE SODIUM 100MG CAPSULE PO SCH (21:00)
[2022-04-14] MEDS: SENNA 8.6 MG TAB (SENOKOT) PO SCH (21:00)
[2022-04-14] MEDS: APIXABAN 2.5 MG TAB (ELIQUIS) PO SCH (21:23)
[2022-04-14] MEDS: ACETAMINOPHEN 500 MG TAB PO SCH (21:23)
[2022-04-15] MEDS: LEVOTHYROXINE 75MCG TABLET (0.075MG) PO SCH (05:51)
[2022-04-15] MEDS: traMADol 50 MG TAB PO PRN ×2 (05:52→19:46)
[2022-04-15 06:00] VITALS: BP 180/90
[2022-04-15] MEDS: **hydrALAZINE HCL** 25 MG TAB PO SCH ×4 (06:00→23:59)
[2022-04-15] MEDS: CREON-24 CAPSULE PO SCH ×3 (07:19→17:47)
[2022-04-15] MEDS: COLESEVELAM 625 MG TAB (WELCHOL) PO SCH ×2 (07:19→17:47)
[2022-04-15] MEDS: CREON-12 CAPSULE PO SCH ×3 (07:19→17:52)
[2022-04-15] MEDS: LOSARTAN 50MG TABLET PO SCH (07:20)
[2022-04-15 07:30] LABS: BASO % 0.2 % (0.0-1.0); EOS # 0.1 10^3/uL (0.0-0.5); EOS % 1.7 % (0.0-3.0); HEMATOCRIT 31.6 % (36.0-47.0); HEMOGLOBIN 10.1 g/dl (12.0-15.5); LYMPH % 17.6 % (24.0-44.0); MEAN CORPUSCULAR HEMOGLOBIN 32.5 pg (27.0-33.0); MEAN CORPUSCULAR VOLUME 101.6 fl (80.0-96.0); MONO # 0.3 10^3/uL (0.0-0.8); MONO % 5.2 % (2.0-8.0); NEUTROPHILS # 4.1 10^3/uL (1.5-8.5); NEUTROPHILS % 74.9 % (36.0-66.0); PLATELET COUNT, AUTOMATED 212 10^3/uL (150-450); RED BLOOD COUNT 3.11 10^6/uL (4.00-5.40); WHITE BLOOD COUNT 5.4 10^3/uL (4.0-10.0)
[2022-04-15] MEDS: COMBIVENT RESPIMAT 100-20MCG INHALER 4GM INH SCH ×3 (07:38→20:24)
[2022-04-15 07:40] LABS: ALKALINE PHOSPHATASE 155 U/L (46-116); ALT/SGPT 27 U/L (7.0-40); AST/SGOT 14 U/L (<34); BILIRUBIN,TOTAL 0.2 MG/DL (0.3-1.2); BLOOD UREA NITROGEN 14 MG/DL (9-23); CALCIUM LEVEL 7.9 MG/DL (8.3-10.6); CARBON DIOXIDE LEVEL 24 MMOL/L (20-31); CHLORIDE LEVEL 110 MMOL/L (98-107); CREATININE FOR GFR 0.74 MG/DL (0.55-1.30); GLOMERULAR FILTRATION RATE > 60.0 (>32); GLUCOSE, FASTING 74 MG/DL (74-106); POTASSIUM SERUM 4.6 MMOL/L (3.5-5.1); SODIUM LEVEL 140 MMOL/L (136-145); TOTAL PROTEIN 5.1 G/DL (5.7-8.2)
[2022-04-15] MEDS ORDERED: NS 1,000 ML IV SCH ×2 (07:45→17:15)
[2022-04-15] MEDS: DOCUSATE SODIUM 100MG CAPSULE PO SCH ×2 (09:00→21:00)
[2022-04-15] MEDS: CALCITONIN NASAL SPRAY 3.7ML BTL SCH (09:00)
[2022-04-15] MEDS: APIXABAN 2.5 MG TAB (ELIQUIS) PO SCH ×2 (09:00→20:29)
[2022-04-15] MEDS: predniSONE 10 MG TAB PO SCH ×2 (09:00→17:49)
[2022-04-15] MEDS: LACTOBACILLUS ACIDOPHILUS CAP (BACID) PO SCH (09:00)
[2022-04-15] MEDS: ACETAMINOPHEN 500 MG TAB PO SCH ×3 (10:57→20:30)
[2022-04-15] MEDS: PANTOPRAZOLE 40MG TAB (PROTONIX) PO SCH (10:58)
[2022-04-15] MEDS: LABETALOL 100MG TAB PO SCH (10:58)
[2022-04-15] MEDS: amLODIPine 5 MG TAB PO SCH (11:00)
[2022-04-15 14:00] VITALS: BP 110/64
[2022-04-15 20:00] VITALS: BP 105/55
[2022-04-15] MEDS: SENNA 8.6 MG TAB (SENOKOT) PO SCH (21:00)
[2022-04-16] MEDS: LEVOTHYROXINE 75MCG TABLET (0.075MG) PO SCH (05:50)
[2022-04-16] MEDS: **hydrALAZINE HCL** 25 MG TAB PO SCH ×3 (05:51→17:59)
[2022-04-16 06:00] VITALS: BP 163/83
[2022-04-16] MEDS: COMBIVENT RESPIMAT 100-20MCG INHALER 4GM INH SCH ×3 (07:18→21:21)
[2022-04-16] MEDS ORDERED: HOME MED LIST COMPLETE! XX SCH (07:55)
[2022-04-16] MEDS: CREON-12 CAPSULE PO SCH ×3 (07:58→17:59)
[2022-04-16] MEDS: DOCUSATE SODIUM 100MG CAPSULE PO SCH ×2 (07:59→20:54)
[2022-04-16] MEDS: LACTOBACILLUS ACIDOPHILUS CAP (BACID) PO SCH (07:59)
[2022-04-16] MEDS: CREON-24 CAPSULE PO SCH ×3 (07:59→17:59)
[2022-04-16] MEDS: CALCITONIN NASAL SPRAY 3.7ML BTL SCH (09:00)
[2022-04-16] MEDS: predniSONE 10 MG TAB PO SCH (09:00)
[2022-04-16] MEDS: COLESEVELAM 625 MG TAB (WELCHOL) PO SCH ×2 (09:00→17:59)
[2022-04-16] MEDS: traMADol 50 MG TAB PO PRN ×3 (09:01→21:19)
[2022-04-16 09:02] VITALS: BP 139/65
[2022-04-16] MEDS: LOSARTAN 50MG TABLET PO SCH (09:02)
[2022-04-16] MEDS: ACETAMINOPHEN 500 MG TAB PO SCH ×3 (09:02→20:54)
[2022-04-16] MEDS: PANTOPRAZOLE 40MG TAB (PROTONIX) PO SCH (09:02)
[2022-04-16] MEDS: APIXABAN 2.5 MG TAB (ELIQUIS) PO SCH ×2 (09:03→20:54)
[2022-04-16] MEDS: LABETALOL 100MG TAB PO SCH (09:03)
[2022-04-16] MEDS: amLODIPine 5 MG TAB PO SCH (09:03)
[2022-04-16 12:08] VITALS: BP 96/51
[2022-04-16 14:00] VITALS: BP 92/54
[2022-04-16 17:58] VITALS: BP 114/62
[2022-04-16] MEDS ORDERED: VITAMIN D 50,000 UNITS CAPSULE (ERGOCALCIFEROL 1.25MG) PO ONE (18:00)
[2022-04-16 20:00] VITALS: BP 122/58
[2022-04-16] MEDS: SENNA 8.6 MG TAB (SENOKOT) PO SCH (20:55)
[2022-04-17] MEDS: **hydrALAZINE HCL** 25 MG TAB PO SCH ×4 (00:11→17:57)
[2022-04-17] MEDS: traMADol 50 MG TAB PO PRN ×3 (01:36→20:38)
[2022-04-17] MEDS: LEVOTHYROXINE 75MCG TABLET (0.075MG) PO SCH (05:51)
[2022-04-17 06:00] VITALS: BP 129/66
[2022-04-17] MEDS: CREON-24 CAPSULE PO SCH ×3 (08:00→17:01)
[2022-04-17] MEDS: CREON-12 CAPSULE PO SCH ×3 (08:00→17:01)
[2022-04-17] MEDS: CALCITONIN NASAL SPRAY 3.7ML BTL SCH (09:00)
[2022-04-17] MEDS: DOCUSATE SODIUM 100MG CAPSULE PO SCH ×2 (09:00→19:47)
[2022-04-17 09:30] VITALS: BP 117/63
[2022-04-17] MEDS: COMBIVENT RESPIMAT 100-20MCG INHALER 4GM INH SCH ×3 (09:32→22:30)
[2022-04-17] MEDS: COLESEVELAM 625 MG TAB (WELCHOL) PO SCH ×2 (09:33→17:01)
[2022-04-17] MEDS: LOSARTAN 50MG TABLET PO SCH (09:33)
[2022-04-17] MEDS: predniSONE 10 MG TAB PO SCH (09:34)
[2022-04-17] MEDS: ACETAMINOPHEN 500 MG TAB PO SCH ×3 (09:34→20:38)
[2022-04-17] MEDS: LABETALOL 100MG TAB PO SCH (09:34)
[2022-04-17] MEDS: LACTOBACILLUS ACIDOPHILUS CAP (BACID) PO SCH (09:34)
[2022-04-17] MEDS: PANTOPRAZOLE 40MG TAB (PROTONIX) PO SCH (09:34)
[2022-04-17] MEDS: amLODIPine 5 MG TAB PO SCH (09:34)
[2022-04-17] MEDS: APIXABAN 2.5 MG TAB (ELIQUIS) PO SCH ×2 (09:34→19:46)
[2022-04-17 11:45] VITALS: BP 112/56
[2022-04-17 13:35] VITALS: BP_SYST 88; BP_SYST 94; BP_DIAS 52; BP_DIAS 54
[2022-04-17] MEDS: SIMETHICONE 80MG CHEW TAB PO SCH ×2 (16:00→20:37)
[2022-04-17 17:57] VITALS: BP 113/65
[2022-04-17] MEDS: SENNA 8.6 MG TAB (SENOKOT) PO SCH (19:45)
[2022-04-18] MEDS: **hydrALAZINE HCL** 25 MG TAB PO SCH ×2 (00:30→05:27)
[2022-04-18] MEDS: traMADol 50 MG TAB PO PRN ×2 (00:31→17:18)
[2022-04-18] MEDS: LEVOTHYROXINE 75MCG TABLET (0.075MG) PO SCH (05:27)
[2022-04-18 06:00] VITALS: BP 129/71
[2022-04-18 06:52] LABS: BASO % 0.4 % (0.0-1.0); EOS # 0.1 10^3/uL (0.0-0.5); EOS % 1.9 % (0.0-3.0); HEMATOCRIT 35.3 % (36.0-47.0); LYMPH # 1.2 10^3/uL (1.5-5.0); LYMPH % 25.8 % (24.0-44.0); MEAN CORPUSCULAR HEMOGLOBIN 32.6 pg (27.0-33.0); MEAN CORPUSCULAR HGB CONC 31.2 g/dl (32.0-36.5); MEAN CORPUSCULAR VOLUME 104.7 fl (80.0-96.0); MONO # 0.3 10^3/uL (0.0-0.8); MONO % 5.4 % (2.0-8.0); NEUTROPHILS # 3.2 10^3/uL (1.5-8.5); NEUTROPHILS % 66.1 % (36.0-66.0); PLATELET COUNT, AUTOMATED 239 10^3/uL (150-450); RED BLOOD COUNT 3.37 10^6/uL (4.00-5.40); WHITE BLOOD COUNT 4.8 10^3/uL (4.0-10.0)
[2022-04-18 07:20] LABS: BLOOD UREA NITROGEN 21 MG/DL (9-23); CALCIUM LEVEL 8.1 MG/DL (8.3-10.6); CARBON DIOXIDE LEVEL 23 MMOL/L (20-31); CHLORIDE LEVEL 109 MMOL/L (98-107); GLOMERULAR FILTRATION RATE > 60.0 (>32); GLUCOSE, FASTING 75 MG/DL (74-106); POTASSIUM SERUM 4.9 MMOL/L (3.5-5.1); SODIUM LEVEL 138 MMOL/L (136-145)
[2022-04-18] MEDS: COMBIVENT RESPIMAT 100-20MCG INHALER 4GM INH SCH ×3 (07:51→20:16)
[2022-04-18] MEDS: CREON-24 CAPSULE PO SCH ×3 (08:00→18:20)
[2022-04-18] MEDS: CREON-12 CAPSULE PO SCH ×3 (08:00→18:20)
[2022-04-18] MEDS: CALCITONIN NASAL SPRAY 3.7ML BTL SCH (09:00)
[2022-04-18] MEDS: DOCUSATE SODIUM 100MG CAPSULE PO SCH ×2 (09:00→20:02)
[2022-04-18] MEDS ORDERED: BUPIVACAINE HCL 0.25% 30ML VIAL As Ordered ONE (10:50)
[2022-04-18] MEDS ORDERED: ceFAZolin 2 GM/D5W 50 ML IV BAG As Ordered ONE (10:50)
[2022-04-18] MEDS ORDERED: LR 1,000 ML IV SCH (11:35)
[2022-04-18] MEDS ORDERED: oxyCODONE 5MG TAB PO PRN (11:35)
[2022-04-18] MEDS ORDERED: fentaNYL 100 MCG/2 ML INJECTION IV PRN (11:35)
[2022-04-18] MEDS ORDERED: ONDANSETRON 4MG 2ML VIAL IV PRN (11:35)
[2022-04-18] MEDS ORDERED: **hydrALAZINE** 50 MG TAB PO SCH (12:00)
[2022-04-18 12:20] VITALS: BP 180/87
[2022-04-18] MEDS: PANTOPRAZOLE 40MG TAB (PROTONIX) PO SCH (13:48)
[2022-04-18] MEDS: COLESEVELAM 625 MG TAB (WELCHOL) PO SCH ×2 (13:48→18:20)
[2022-04-18] MEDS: LACTOBACILLUS ACIDOPHILUS CAP (BACID) PO SCH (13:48)
[2022-04-18] MEDS: APIXABAN 2.5 MG TAB (ELIQUIS) PO SCH ×2 (13:49→20:03)
[2022-04-18] MEDS: predniSONE 10 MG TAB PO SCH (13:49)
[2022-04-18] MEDS: SIMETHICONE 80MG CHEW TAB PO SCH ×3 (13:49→20:03)
[2022-04-18] MEDS: ACETAMINOPHEN 500 MG TAB PO SCH ×3 (13:50→20:04)
[2022-04-18] MEDS: LABETALOL 100MG TAB PO SCH (13:51)
[2022-04-18] MEDS: LOSARTAN 50MG TABLET PO SCH (13:51)
[2022-04-18] MEDS: amLODIPine 5 MG TAB PO SCH (13:52)
[2022-04-18] MEDS: **hydrALAZINE** 50 MG TAB PO SCH ×3 (13:52→23:27)
[2022-04-18 14:00] VITALS: BP 91/66
[2022-04-18] MEDS: ceFAZolin SOD 1 GM in D5W MINI-BAG PLUS 50 ML IV SCH (18:20)
[2022-04-18 20:00] VITALS: BP 80/44
[2022-04-18] MEDS ORDERED: ceFAZolin SOD 2 GM in IV 1 EA IV SCH (20:00)
[2022-04-18] MEDS: SENNA 8.6 MG TAB (SENOKOT) PO SCH (20:03)
[2022-04-19] MEDS: ceFAZolin SOD 1 GM in D5W MINI-BAG PLUS 50 ML IV SCH ×3 (03:00→18:33)
[2022-04-19] MEDS: traMADol 50 MG TAB PO PRN (03:52)
[2022-04-19 06:00] VITALS: BP 125/59
[2022-04-19] MEDS: **hydrALAZINE** 50 MG TAB PO SCH ×3 (06:42→18:33)
[2022-04-19] MEDS: LEVOTHYROXINE 75MCG TABLET (0.075MG) PO SCH (06:42)
[2022-04-19 07:12] LABS: BASO % 0.2 % (0.0-1.0); HEMATOCRIT 33.7 % (36.0-47.0); HEMOGLOBIN 10.5 g/dl (12.0-15.5); LYMPH # 0.8 10^3/uL (1.5-5.0); LYMPH % 12.1 % (24.0-44.0); MEAN CORPUSCULAR HEMOGLOBIN 32.2 pg (27.0-33.0); MEAN CORPUSCULAR HGB CONC 31.2 g/dl (32.0-36.5); MEAN CORPUSCULAR VOLUME 103.4 fl (80.0-96.0); MONO # 0.2 10^3/uL (0.0-0.8); MONO % 3.2 % (2.0-8.0); NEUTROPHILS # 5.2 10^3/uL (1.5-8.5); PLATELET COUNT, AUTOMATED 223 10^3/uL (150-450); RED BLOOD COUNT 3.26 10^6/uL (4.00-5.40); WHITE BLOOD COUNT 6.2 10^3/uL (4.0-10.0)
[2022-04-19 07:38] LABS: BLOOD UREA NITROGEN 22 MG/DL (9-23); CALCIUM LEVEL 7.6 MG/DL (8.3-10.6); CARBON DIOXIDE LEVEL 18 MMOL/L (20-31); CHLORIDE LEVEL 109 MMOL/L (98-107); CREATININE FOR GFR 0.84 MG/DL (0.55-1.30); GLOMERULAR FILTRATION RATE > 60.0 (>32); GLUCOSE, FASTING 153 MG/DL (74-106); POTASSIUM SERUM 4.8 MMOL/L (3.5-5.1); SODIUM LEVEL 138 MMOL/L (136-145)
[2022-04-19] MEDS: COMBIVENT RESPIMAT 100-20MCG INHALER 4GM INH SCH ×3 (07:50→20:35)
[2022-04-19] MEDS: DOCUSATE SODIUM 100MG CAPSULE PO SCH ×2 (09:00→20:18)
[2022-04-19] MEDS: CALCITONIN NASAL SPRAY 3.7ML BTL SCH (09:00)
[2022-04-19] MEDS: CREON-24 CAPSULE PO SCH ×3 (09:39→18:33)
[2022-04-19] MEDS: COLESEVELAM 625 MG TAB (WELCHOL) PO SCH ×2 (09:39→18:33)
[2022-04-19] MEDS: LACTOBACILLUS ACIDOPHILUS CAP (BACID) PO SCH (09:39)
[2022-04-19] MEDS: predniSONE 10 MG TAB PO SCH (09:39)
[2022-04-19] MEDS: CREON-12 CAPSULE PO SCH ×3 (09:39→18:33)
[2022-04-19] MEDS: ACETAMINOPHEN 500 MG TAB PO SCH ×3 (09:40→20:18)
[2022-04-19] MEDS: APIXABAN 2.5 MG TAB (ELIQUIS) PO SCH ×2 (09:40→20:17)
[2022-04-19] MEDS: PANTOPRAZOLE 40MG TAB (PROTONIX) PO SCH (09:40)
[2022-04-19] MEDS: LABETALOL 100MG TAB PO SCH (09:40)
[2022-04-19] MEDS: amLODIPine 5 MG TAB PO SCH (09:40)
[2022-04-19] MEDS: SIMETHICONE 80MG CHEW TAB PO SCH ×3 (09:40→20:17)
[2022-04-19] MEDS: LOSARTAN 50MG TABLET PO SCH (09:41)
[2022-04-19] MEDS: ONDANSETRON 4MG ORAL DISINTEGRATING TAB PO PRN (11:05)
[2022-04-19] MEDS ORDERED: ONDANSETRON 4MG ORAL DISINTEGRATING TAB PO ONE (13:50)
[2022-04-19 14:00] VITALS: BP_SYST 110; BP_SYST 162; BP_DIAS 60; BP_DIAS 66
[2022-04-19 20:00] VITALS: BP 110/58
[2022-04-19] MEDS: SENNA 8.6 MG TAB (SENOKOT) PO SCH (20:18)
[2022-04-20] VITALS (8 sets, daily range): BP systolic 76–135; BP diastolic 42–65
[2022-04-20] MEDS: LEVOTHYROXINE 75MCG TABLET (0.075MG) PO SCH (05:47)
[2022-04-20] MEDS: **hydrALAZINE** 50 MG TAB PO SCH ×3 (05:47→12:00)
[2022-04-20 06:42] LABS: EOS # 0.1 10^3/uL (0.0-0.5); EOS % 0.8 % (0.0-3.0); HEMATOCRIT 32.4 % (36.0-47.0); HEMOGLOBIN 9.8 g/dl (12.0-15.5); LYMPH # 1.3 10^3/uL (1.5-5.0); LYMPH % 18.1 % (24.0-44.0); MEAN CORPUSCULAR HGB CONC 30.2 g/dl (32.0-36.5); MEAN CORPUSCULAR VOLUME 105.9 fl (80.0-96.0); MONO # 0.3 10^3/uL (0.0-0.8); MONO % 4.4 % (2.0-8.0); NEUTROPHILS # 5.4 10^3/uL (1.5-8.5); NEUTROPHILS % 75.9 % (36.0-66.0); PLATELET COUNT, AUTOMATED 255 10^3/uL (150-450); RED BLOOD COUNT 3.06 10^6/uL (4.00-5.40); WHITE BLOOD COUNT 7.1 10^3/uL (4.0-10.0)
[2022-04-20 07:09] LABS: BLOOD UREA NITROGEN 26 MG/DL (9-23); CALCIUM LEVEL 8.2 MG/DL (8.3-10.6); CARBON DIOXIDE LEVEL 20 MMOL/L (20-31); CHLORIDE LEVEL 110 MMOL/L (98-107); CREATININE FOR GFR 0.89 MG/DL (0.55-1.30); GLOMERULAR FILTRATION RATE > 60.0 (>32); GLUCOSE, FASTING 127 MG/DL (74-106); POTASSIUM SERUM 4.4 MMOL/L (3.5-5.1); SODIUM LEVEL 139 MMOL/L (136-145)
[2022-04-20] MEDS: COMBIVENT RESPIMAT 100-20MCG INHALER 4GM INH SCH ×3 (08:05→19:59)
[2022-04-20] MEDS: DOCUSATE SODIUM 100MG CAPSULE PO SCH ×2 (09:00→21:00)
[2022-04-20] MEDS: CALCITONIN NASAL SPRAY 3.7ML BTL SCH (09:00)
[2022-04-20 09:22] LABS: IRON (FE) 87 UG/DL (50-170); TOTAL IRON BINDING CAPACITY 223 UG/DL (250-425)
[2022-04-20 09:24] LABS: FERRITIN 184.3 NG/ML (7.3-270.7)
[2022-04-20 09:25] LABS: FOLATE 6.3 NG/ML (>5.4); VITAMIN B12 LEVEL 808 PG/ML (211-911)
[2022-04-20] MEDS: CREON-12 CAPSULE PO SCH ×3 (10:05→17:47)
[2022-04-20] MEDS: CREON-24 CAPSULE PO SCH ×3 (10:05→17:47)
[2022-04-20] MEDS: predniSONE 10 MG TAB PO SCH (10:05)
[2022-04-20] MEDS: LACTOBACILLUS ACIDOPHILUS CAP (BACID) PO SCH (10:05)
[2022-04-20] MEDS: PANTOPRAZOLE 40MG TAB (PROTONIX) PO SCH (10:05)
[2022-04-20] MEDS: COLESEVELAM 625 MG TAB (WELCHOL) PO SCH ×2 (10:05→17:47)
[2022-04-20] MEDS: ACETAMINOPHEN 500 MG TAB PO SCH ×3 (10:06→21:04)
[2022-04-20] MEDS: APIXABAN 2.5 MG TAB (ELIQUIS) PO SCH ×2 (10:06→21:04)
[2022-04-20] MEDS: SIMETHICONE 80MG CHEW TAB PO SCH ×3 (10:06→21:04)
[2022-04-20] MEDS: LABETALOL 100MG TAB PO SCH (10:11)
[2022-04-20] MEDS: LOSARTAN 50MG TABLET PO SCH (10:11)
[2022-04-20] MEDS: amLODIPine 5 MG TAB PO SCH (10:12)
[2022-04-20] MEDS: traMADol 50 MG TAB PO PRN (13:18)
[2022-04-20] MEDS ORDERED: NS 500 ML IV ONE (14:30)
[2022-04-20] MEDS: **hydrALAZINE HCL** 25 MG TAB PO SCH (16:22)
[2022-04-20] MEDS: SENNA 8.6 MG TAB (SENOKOT) PO SCH (21:00)
[2022-04-21] MEDS: LEVOTHYROXINE 75MCG TABLET (0.075MG) PO SCH (05:39)
[2022-04-21] MEDS: **hydrALAZINE HCL** 25 MG TAB PO SCH ×5 (05:40→17:25)
[2022-04-21] MEDS: traMADol 50 MG TAB PO PRN ×2 (05:40→22:46)
[2022-04-21 06:00] VITALS: BP 133/64
[2022-04-21] MEDS ORDERED: PILL CUTTER 1 EACH XX PRN (07:25)
[2022-04-21] MEDS: DOCUSATE SODIUM 100MG CAPSULE PO SCH ×2 (07:28→21:00)
[2022-04-21] MEDS: COMBIVENT RESPIMAT 100-20MCG INHALER 4GM INH SCH ×3 (08:27→18:08)
[2022-04-21] MEDS: SIMETHICONE 80MG CHEW TAB PO SCH ×3 (08:53→22:46)
[2022-04-21] MEDS: COLESEVELAM 625 MG TAB (WELCHOL) PO SCH ×2 (08:53→17:25)
[2022-04-21] MEDS: predniSONE 10 MG TAB PO SCH (08:53)
[2022-04-21] MEDS: PANTOPRAZOLE 40MG TAB (PROTONIX) PO SCH (08:54)
[2022-04-21] MEDS: LOSARTAN 25 MG TAB PO SCH (08:56)
[2022-04-21] MEDS: APIXABAN 2.5 MG TAB (ELIQUIS) PO SCH ×2 (08:57→22:47)
[2022-04-21] MEDS: LACTOBACILLUS ACIDOPHILUS CAP (BACID) PO SCH (08:57)
[2022-04-21] MEDS: ACETAMINOPHEN 500 MG TAB PO SCH ×3 (08:57→22:46)
[2022-04-21] MEDS: LABETALOL 100MG TAB PO SCH (08:58)
[2022-04-21] MEDS: CREON-12 CAPSULE PO SCH ×3 (08:59→17:25)
[2022-04-21] MEDS: CALCITONIN NASAL SPRAY 3.7ML BTL SCH (08:59)
[2022-04-21] MEDS: CREON-24 CAPSULE PO SCH ×3 (08:59→17:25)
[2022-04-21] MEDS ORDERED: amLODIPine 5 MG TAB PO SCH (09:00)
[2022-04-21 13:57] VITALS: BP 127/61
[2022-04-21 20:00] VITALS: BP 122/57
[2022-04-21] MEDS: SENNA 8.6 MG TAB (SENOKOT) PO SCH (21:00)
[2022-04-22 05:43] VITALS: BP 130/67
[2022-04-22] MEDS: LEVOTHYROXINE 75MCG TABLET (0.075MG) PO SCH (05:45)
[2022-04-22] MEDS: **hydrALAZINE HCL** 25 MG TAB PO SCH ×5 (05:45→23:41)
[2022-04-22] MEDS: COMBIVENT RESPIMAT 100-20MCG INHALER 4GM INH SCH ×3 (06:35→19:15)
[2022-04-22] MEDS: CALCITONIN NASAL SPRAY 3.7ML BTL SCH (09:00)
[2022-04-22 09:15] LABS: EOS # 0.1 10^3/uL (0.0-0.5); EOS % 0.9 % (0.0-3.0); HEMATOCRIT 31.5 % (36.0-47.0); HEMOGLOBIN 9.9 g/dl (12.0-15.5); LYMPH # 0.8 10^3/uL (1.5-5.0); LYMPH % 14.6 % (24.0-44.0); MEAN CORPUSCULAR HGB CONC 31.4 g/dl (32.0-36.5); MONO # 0.3 10^3/uL (0.0-0.8); MONO % 4.9 % (2.0-8.0); NEUTROPHILS # 4.2 10^3/uL (1.5-8.5); NEUTROPHILS % 78.7 % (36.0-66.0); PLATELET COUNT, AUTOMATED 253 10^3/uL (150-450); WHITE BLOOD COUNT 5.4 10^3/uL (4.0-10.0)
[2022-04-22 09:42] LABS: BLOOD UREA NITROGEN 25 MG/DL (9-23); CALCIUM LEVEL 7.9 MG/DL (8.3-10.6); CARBON DIOXIDE LEVEL 19 MMOL/L (20-31); CHLORIDE LEVEL 110 MMOL/L (98-107); CREATININE FOR GFR 0.75 MG/DL (0.55-1.30); GLOMERULAR FILTRATION RATE > 60.0 (>32); GLUCOSE, FASTING 155 MG/DL (74-106); POTASSIUM SERUM 4.5 MMOL/L (3.5-5.1); SODIUM LEVEL 137 MMOL/L (136-145)
[2022-04-22] MEDS: COLESEVELAM 625 MG TAB (WELCHOL) PO SCH ×2 (10:18→18:41)
[2022-04-22] MEDS: CREON-24 CAPSULE PO SCH ×3 (10:18→18:41)
[2022-04-22] MEDS: DOCUSATE SODIUM 100MG CAPSULE PO SCH ×2 (10:18→22:05)
[2022-04-22] MEDS: CREON-12 CAPSULE PO SCH ×3 (10:18→18:41)
[2022-04-22] MEDS: VITAMIN D 50,000 UNITS CAPSULE (ERGOCALCIFEROL 1.25MG) PO SCH (10:19)
[2022-04-22] MEDS: SIMETHICONE 80MG CHEW TAB PO SCH ×3 (10:19→22:03)
[2022-04-22] MEDS: predniSONE 10 MG TAB PO SCH (10:19)
[2022-04-22] MEDS: LACTOBACILLUS ACIDOPHILUS CAP (BACID) PO SCH (10:19)
[2022-04-22] MEDS: APIXABAN 2.5 MG TAB (ELIQUIS) PO SCH ×2 (10:19→22:04)
[2022-04-22] MEDS: PANTOPRAZOLE 40MG TAB (PROTONIX) PO SCH (10:20)
[2022-04-22] MEDS: ACETAMINOPHEN 500 MG TAB PO SCH ×3 (10:20→22:04)
[2022-04-22] MEDS: LABETALOL 100MG TAB PO SCH (10:20)
[2022-04-22] MEDS: LOSARTAN 25 MG TAB PO SCH (10:21)
[2022-04-22] MEDS: traMADol 50 MG TAB PO PRN (14:58)
[2022-04-22 16:00] VITALS: BP 101/53
[2022-04-22 21:00] VITALS: BP 120/58
[2022-04-22] MEDS: SENNA 8.6 MG TAB (SENOKOT) PO SCH (22:04)
[2022-04-23 05:04] VITALS: BP 167/79
[2022-04-23] MEDS: **hydrALAZINE HCL** 25 MG TAB PO SCH ×3 (06:35→17:42)
[2022-04-23] MEDS: LEVOTHYROXINE 75MCG TABLET (0.075MG) PO SCH (06:35)
[2022-04-23] MEDS: COMBIVENT RESPIMAT 100-20MCG INHALER 4GM INH SCH ×2 (08:00→14:10)
[2022-04-23] MEDS: COLESEVELAM 625 MG TAB (WELCHOL) PO SCH ×2 (08:16→17:42)
[2022-04-23] MEDS: APIXABAN 2.5 MG TAB (ELIQUIS) PO SCH ×2 (08:16→21:22)
[2022-04-23] MEDS: CREON-12 CAPSULE PO SCH ×3 (08:16→17:42)
[2022-04-23] MEDS: LACTOBACILLUS ACIDOPHILUS CAP (BACID) PO SCH (08:16)
[2022-04-23] MEDS: SIMETHICONE 80MG CHEW TAB PO SCH ×3 (08:16→21:22)
[2022-04-23] MEDS: PANTOPRAZOLE 40MG TAB (PROTONIX) PO SCH (08:16)
[2022-04-23] MEDS: predniSONE 10 MG TAB PO SCH (08:16)
[2022-04-23] MEDS: CREON-24 CAPSULE PO SCH ×3 (08:16→17:42)
[2022-04-23] MEDS: ACETAMINOPHEN 500 MG TAB PO SCH ×3 (08:17→21:22)
[2022-04-23] MEDS: DOCUSATE SODIUM 100MG CAPSULE PO SCH ×2 (08:20→21:00)
[2022-04-23] MEDS: LOSARTAN 25 MG TAB PO SCH (08:20)
[2022-04-23] MEDS: LABETALOL 100MG TAB PO SCH (08:20)
[2022-04-23] MEDS: CALCITONIN NASAL SPRAY 3.7ML BTL SCH (08:20)
[2022-04-23] MEDS ORDERED: CEFEPIME HCL 2 GM in D5W MINI-BAG PLUS 50 ML IV SCH (12:00)
[2022-04-23 12:40] LABS: BASO % 0.2 % (0.0-1.0); EOS % 0.5 % (0.0-3.0); HEMATOCRIT 30.2 % (36.0-47.0); HEMOGLOBIN 9.7 g/dl (12.0-15.5); LYMPH # 0.7 10^3/uL (1.5-5.0); LYMPH % 9.8 % (24.0-44.0); MEAN CORPUSCULAR HEMOGLOBIN 33.3 pg (27.0-33.0); MEAN CORPUSCULAR HGB CONC 32.1 g/dl (32.0-36.5); MEAN CORPUSCULAR VOLUME 103.8 fl (80.0-96.0); MONO # 0.3 10^3/uL (0.0-0.8); MONO % 4.8 % (2.0-8.0); NEUTROPHILS # 5.6 10^3/uL (1.5-8.5); NEUTROPHILS % 84.1 % (36.0-66.0); PLATELET COUNT, AUTOMATED 236 10^3/uL (150-450); RED BLOOD COUNT 2.91 10^6/uL (4.00-5.40); WHITE BLOOD COUNT 6.6 10^3/uL (4.0-10.0)
[2022-04-23 14:00] VITALS: BP 157/74
[2022-04-23] MEDS ORDERED: REMDESIVIR 200 MG in NS 250 ML IV ONE (15:00)
[2022-04-23] MEDS ORDERED: SODIUM CHLORIDE 0.9% INJ 10 ML SYR IV ONE (17:00)
[2022-04-23] MEDS: guaiFENesin 200 MG TAB PO SCH ×2 (17:41→21:21)
[2022-04-23] MEDS: predniSONE 20 MG TAB PO SCH (18:44)
[2022-04-23] MEDS: IPRATROPIUM 0.5MG/ALBUTEROL 2.5MG INH SOL UD 3ML (DUONEB) NEB SCH (19:45)
[2022-04-23 20:00] VITALS: BP 139/67
[2022-04-23] MEDS: SENNA 8.6 MG TAB (SENOKOT) PO SCH (21:00)
[2022-04-23] MEDS ORDERED: IPRATROPIUM 0.5MG/ALBUTEROL 2.5MG INH SOL UD 3ML (DUONEB) NEB ONE (22:25)
[2022-04-24] MEDS: IPRATROPIUM 0.5MG/ALBUTEROL 2.5MG INH SOL UD 3ML (DUONEB) NEB SCH ×4 (01:10→20:33)
[2022-04-24] MEDS: LEVOTHYROXINE 75MCG TABLET (0.075MG) PO SCH (05:48)
[2022-04-24 05:53] VITALS: BP 155/77
[2022-04-24 06:43] LABS: BASO % 0.2 % (0.0-1.0); HEMATOCRIT 32.1 % (36.0-47.0); HEMOGLOBIN 10.1 g/dl (12.0-15.5); LYMPH # 0.3 10^3/uL (1.5-5.0); LYMPH % 6.4 % (24.0-44.0); MEAN CORPUSCULAR HEMOGLOBIN 33.1 pg (27.0-33.0); MEAN CORPUSCULAR HGB CONC 31.5 g/dl (32.0-36.5); MEAN CORPUSCULAR VOLUME 105.2 fl (80.0-96.0); MONO # 0.1 10^3/uL (0.0-0.8); MONO % 1.3 % (2.0-8.0); NEUTROPHILS # 4.3 10^3/uL (1.5-8.5); NEUTROPHILS % 91.7 % (36.0-66.0); PLATELET COUNT, AUTOMATED 260 10^3/uL (150-450); RED BLOOD COUNT 3.05 10^6/uL (4.00-5.40); WHITE BLOOD COUNT 4.7 10^3/uL (4.0-10.0)
[2022-04-24] MEDS: DOCUSATE SODIUM 100MG CAPSULE PO SCH ×2 (09:00→20:02)
[2022-04-24] MEDS: CALCITONIN NASAL SPRAY 3.7ML BTL SCH (09:00)
[2022-04-24] MEDS: predniSONE 20 MG TAB PO SCH (09:15)
[2022-04-24] MEDS: PANTOPRAZOLE 40MG TAB (PROTONIX) PO SCH (09:15)
[2022-04-24] MEDS: LACTOBACILLUS ACIDOPHILUS CAP (BACID) PO SCH (09:15)
[2022-04-24] MEDS: CREON-24 CAPSULE PO SCH ×3 (09:15→18:17)
[2022-04-24] MEDS: SIMETHICONE 80MG CHEW TAB PO SCH ×3 (09:15→20:02)
[2022-04-24] MEDS: CREON-12 CAPSULE PO SCH ×3 (09:16→18:17)
[2022-04-24] MEDS: APIXABAN 2.5 MG TAB (ELIQUIS) PO SCH ×2 (09:16→20:02)
[2022-04-24] MEDS: ACETAMINOPHEN 500 MG TAB PO SCH ×3 (09:16→20:02)
[2022-04-24] MEDS: COLESEVELAM 625 MG TAB (WELCHOL) PO SCH ×2 (09:16→18:17)
[2022-04-24] MEDS: guaiFENesin 200 MG TAB PO SCH ×3 (09:17→20:02)
[2022-04-24] MEDS: LABETALOL 100MG TAB PO SCH (09:17)
[2022-04-24] MEDS: LOSARTAN 25 MG TAB PO SCH (09:18)
[2022-04-24 14:00] VITALS: BP 151/68
[2022-04-24] MEDS: REMDESIVIR 100 MG in NS 250 ML IV SCH (15:20)
[2022-04-24] MEDS: SODIUM CHLORIDE 0.9% INJ 10 ML SYR IV SCH (15:21)
[2022-04-24] MEDS: SENNA 8.6 MG TAB (SENOKOT) PO SCH (19:47)
[2022-04-24 20:00] VITALS: BP 163/74
[2022-04-25] MEDS: IPRATROPIUM 0.5MG/ALBUTEROL 2.5MG INH SOL UD 3ML (DUONEB) NEB SCH ×4 (02:20→20:38)
[2022-04-25] MEDS: traMADol 50 MG TAB PO PRN ×3 (04:59→21:17)
[2022-04-25] MEDS: LEVOTHYROXINE 75MCG TABLET (0.075MG) PO SCH (05:41)
[2022-04-25 06:00] VITALS: BP_SYST 155; BP_SYST 170; BP_DIAS 75; BP_DIAS 78
[2022-04-25] MEDS: CREON-12 CAPSULE PO SCH ×3 (08:00→17:45)
[2022-04-25] MEDS: CREON-24 CAPSULE PO SCH ×3 (08:00→17:45)
[2022-04-25 08:13] LABS: BASO % 0.1 % (0.0-1.0); HEMATOCRIT 31.4 % (36.0-47.0); HEMOGLOBIN 9.9 g/dl (12.0-15.5); LYMPH # 1.2 10^3/uL (1.5-5.0); LYMPH % 16.8 % (24.0-44.0); MEAN CORPUSCULAR HEMOGLOBIN 32.8 pg (27.0-33.0); MEAN CORPUSCULAR HGB CONC 31.5 g/dl (32.0-36.5); MONO # 0.4 10^3/uL (0.0-0.8); MONO % 5.7 % (2.0-8.0); NEUTROPHILS # 5.4 10^3/uL (1.5-8.5); NEUTROPHILS % 76.8 % (36.0-66.0); PLATELET COUNT, AUTOMATED 252 10^3/uL (150-450); RED BLOOD COUNT 3.02 10^6/uL (4.00-5.40)
[2022-04-25 08:40] LABS: BLOOD UREA NITROGEN 24 MG/DL (9-23); CALCIUM LEVEL 7.8 MG/DL (8.3-10.6); CARBON DIOXIDE LEVEL 17 MMOL/L (20-31); CHLORIDE LEVEL 116 MMOL/L (98-107); CREATININE FOR GFR 0.63 MG/DL (0.55-1.30); GLOMERULAR FILTRATION RATE > 60.0 (>32); GLUCOSE, FASTING 95 MG/DL (74-106); POTASSIUM SERUM 4.6 MMOL/L (3.5-5.1); SODIUM LEVEL 143 MMOL/L (136-145)
[2022-04-25] MEDS: SIMETHICONE 80MG CHEW TAB PO SCH ×3 (09:00→21:17)
[2022-04-25] MEDS: DOCUSATE SODIUM 100MG CAPSULE PO SCH ×2 (09:00→21:00)
[2022-04-25] MEDS: CALCITONIN NASAL SPRAY 3.7ML BTL SCH (09:00)
[2022-04-25] MEDS: predniSONE 20 MG TAB PO SCH (10:51)
[2022-04-25] MEDS: COLESEVELAM 625 MG TAB (WELCHOL) PO SCH ×2 (10:52→17:45)
[2022-04-25] MEDS: PANTOPRAZOLE 40MG TAB (PROTONIX) PO SCH (10:52)
[2022-04-25] MEDS: LACTOBACILLUS ACIDOPHILUS CAP (BACID) PO SCH (10:52)
[2022-04-25] MEDS: guaiFENesin 200 MG TAB PO SCH ×3 (10:52→21:17)
[2022-04-25] MEDS: LABETALOL 100MG TAB PO SCH (10:53)
[2022-04-25] MEDS: LOSARTAN 25 MG TAB PO SCH (10:54)
[2022-04-25] MEDS: ACETAMINOPHEN 500 MG TAB PO SCH ×3 (10:54→21:17)
[2022-04-25] MEDS: APIXABAN 2.5 MG TAB (ELIQUIS) PO SCH ×2 (10:55→21:17)
[2022-04-25 14:00] VITALS: BP 122/60
[2022-04-25] MEDS: REMDESIVIR 100 MG in NS 250 ML IV SCH (17:42)
[2022-04-25] MEDS: SODIUM CHLORIDE 0.9% INJ 10 ML SYR IV SCH (17:45)
[2022-04-25 19:34] VITALS: BP 120/60
[2022-04-25] MEDS: SENNA 8.6 MG TAB (SENOKOT) PO SCH (21:00)
[2022-04-26] MEDS: IPRATROPIUM 0.5MG/ALBUTEROL 2.5MG INH SOL UD 3ML (DUONEB) NEB SCH ×4 (02:06→20:00)
[2022-04-26] MEDS: traMADol 50 MG TAB PO PRN ×2 (03:10→08:37)
[2022-04-26 06:00] VITALS: BP_SYST 128; BP_SYST 171; BP_DIAS 74; BP_DIAS 86
[2022-04-26] MEDS: LEVOTHYROXINE 75MCG TABLET (0.075MG) PO SCH (06:04)
[2022-04-26] MEDS: LACTOBACILLUS ACIDOPHILUS CAP (BACID) PO SCH (08:36)
[2022-04-26] MEDS: COLESEVELAM 625 MG TAB (WELCHOL) PO SCH ×2 (08:36→17:52)
[2022-04-26] MEDS: CREON-12 CAPSULE PO SCH ×3 (08:37→17:52)
[2022-04-26] MEDS: CREON-24 CAPSULE PO SCH ×3 (08:37→17:52)
[2022-04-26] MEDS: APIXABAN 2.5 MG TAB (ELIQUIS) PO SCH ×2 (08:37→22:38)
[2022-04-26] MEDS: DOCUSATE SODIUM 100MG CAPSULE PO SCH ×2 (08:37→21:00)
[2022-04-26] MEDS: guaiFENesin 200 MG TAB PO SCH ×3 (08:38→22:38)
[2022-04-26] MEDS: SIMETHICONE 80MG CHEW TAB PO SCH ×3 (08:38→22:37)
[2022-04-26] MEDS: predniSONE 20 MG TAB PO SCH (08:38)
[2022-04-26] MEDS: PANTOPRAZOLE 40MG TAB (PROTONIX) PO SCH (08:38)
[2022-04-26] MEDS: ACETAMINOPHEN 500 MG TAB PO SCH ×3 (08:39→22:38)
[2022-04-26] MEDS: LOSARTAN 25 MG TAB PO SCH (08:39)
[2022-04-26] MEDS: LABETALOL 100MG TAB PO SCH (08:43)
[2022-04-26] MEDS: CALCITONIN NASAL SPRAY 3.7ML BTL SCH (08:44)
[2022-04-26] MEDS: ONDANSETRON 4MG ORAL DISINTEGRATING TAB PO PRN (10:19)
[2022-04-26] MEDS ORDERED: oxyCODONE 5MG TAB PO ONE (13:10)
[2022-04-26 14:00] VITALS: BP 129/61
[2022-04-26] MEDS: REMDESIVIR 100 MG in NS 250 ML IV SCH (15:40)
[2022-04-26] MEDS: IBUPROFEN 400MG TAB PO PRN (15:45)
[2022-04-26 20:00] VITALS: BP 138/71
[2022-04-26] MEDS: SENNA 8.6 MG TAB (SENOKOT) PO SCH (21:00)
[2022-04-26] MEDS: SODIUM CHLORIDE 0.9% INJ 10 ML SYR IV SCH (22:39)
[2022-04-27] MEDS: IPRATROPIUM 0.5MG/ALBUTEROL 2.5MG INH SOL UD 3ML (DUONEB) NEB SCH ×4 (01:51→19:29)
[2022-04-27] MEDS: IBUPROFEN 400MG TAB PO PRN (04:40)
[2022-04-27] MEDS: LEVOTHYROXINE 75MCG TABLET (0.075MG) PO SCH (05:42)
[2022-04-27 06:00] VITALS: BP 143/72
[2022-04-27] MEDS: COMBIVENT RESPIMAT 100-20MCG INHALER 4GM INH PRN ×2 (07:49→13:53)
[2022-04-27] MEDS: CREON-24 CAPSULE PO SCH ×3 (08:29→17:14)
[2022-04-27] MEDS: APIXABAN 2.5 MG TAB (ELIQUIS) PO SCH ×2 (08:30→21:23)
[2022-04-27] MEDS: COLESEVELAM 625 MG TAB (WELCHOL) PO SCH ×2 (08:30→17:14)
[2022-04-27] MEDS: CREON-12 CAPSULE PO SCH ×3 (08:30→17:14)
[2022-04-27] MEDS: ACETAMINOPHEN 500 MG TAB PO SCH ×3 (08:30→21:23)
[2022-04-27] MEDS: guaiFENesin 200 MG TAB PO SCH ×3 (08:30→21:23)
[2022-04-27] MEDS: SIMETHICONE 80MG CHEW TAB PO SCH ×3 (08:30→21:24)
[2022-04-27] MEDS: LACTOBACILLUS ACIDOPHILUS CAP (BACID) PO SCH (08:30)
[2022-04-27] MEDS: predniSONE 20 MG TAB PO SCH (08:31)
[2022-04-27] MEDS: LABETALOL 100MG TAB PO SCH (08:32)
[2022-04-27] MEDS: PANTOPRAZOLE 40MG TAB (PROTONIX) PO SCH (08:32)
[2022-04-27] MEDS: CALCITONIN NASAL SPRAY 3.7ML BTL SCH (08:32)
[2022-04-27] MEDS: DOCUSATE SODIUM 100MG CAPSULE PO SCH ×2 (08:32→21:00)
[2022-04-27] MEDS: LOSARTAN 25 MG TAB PO SCH (08:32)
[2022-04-27] MEDS: traMADol 50 MG TAB PO PRN (09:56)
[2022-04-27 10:08] LABS: HEMATOCRIT 32.3 % (36.0-47.0); LYMPH # 1.4 10^3/uL (1.5-5.0); MEAN CORPUSCULAR HEMOGLOBIN 33.2 pg (27.0-33.0); MEAN CORPUSCULAR VOLUME 107.3 fl (80.0-96.0); MONO # 0.4 10^3/uL (0.0-0.8); MONO % 5.2 % (2.0-8.0); NEUTROPHILS % 74.1 % (36.0-66.0); PLATELET COUNT, AUTOMATED 236 10^3/uL (150-450); RED BLOOD COUNT 3.01 10^6/uL (4.00-5.40); WHITE BLOOD COUNT 6.7 10^3/uL (4.0-10.0)
[2022-04-27 10:28] LABS: BLOOD UREA NITROGEN 24 MG/DL (9-23); CALCIUM LEVEL 7.7 MG/DL (8.3-10.6); CARBON DIOXIDE LEVEL 18 MMOL/L (20-31); CHLORIDE LEVEL 111 MMOL/L (98-107); CREATININE FOR GFR 0.74 MG/DL (0.55-1.30); GLOMERULAR FILTRATION RATE > 60.0 (>32); GLUCOSE, FASTING 97 MG/DL (74-106); POTASSIUM SERUM 4.7 MMOL/L (3.5-5.1); SODIUM LEVEL 138 MMOL/L (136-145)
[2022-04-27] MEDS: AUGMENTIN 875 MG TAB PO SCH ×2 (13:33→21:23)
[2022-04-27 14:00] VITALS: BP 123/60
[2022-04-27] MEDS ORDERED: CYANOCOBALAMIN 1,000MCG/ML 1ML VIAL IM ONE (14:00)
[2022-04-27] MEDS: oxyCODONE 5MG TAB PO PRN ×2 (17:15→23:16)
[2022-04-27 20:00] VITALS: BP 151/70
[2022-04-27] MEDS: SENNA 8.6 MG TAB (SENOKOT) PO SCH (21:00)
[2022-04-28] MEDS: IPRATROPIUM 0.5MG/ALBUTEROL 2.5MG INH SOL UD 3ML (DUONEB) NEB SCH ×4 (02:00→20:49)
[2022-04-28] MEDS: IBUPROFEN 400MG TAB PO PRN (02:11)
[2022-04-28 06:00] VITALS: BP 151/68
[2022-04-28] MEDS: oxyCODONE 5MG TAB PO PRN ×2 (06:45→22:17)
[2022-04-28] MEDS: LEVOTHYROXINE 75MCG TABLET (0.075MG) PO SCH (06:45)
[2022-04-28] MEDS: CALCITONIN NASAL SPRAY 3.7ML BTL SCH (09:00)
[2022-04-28] MEDS: DOCUSATE SODIUM 100MG CAPSULE PO SCH ×2 (09:00→22:01)
[2022-04-28] MEDS: PANTOPRAZOLE 40MG TAB (PROTONIX) PO SCH (09:21)
[2022-04-28] MEDS: CREON-24 CAPSULE PO SCH ×3 (09:21→17:26)
[2022-04-28] MEDS: LACTOBACILLUS ACIDOPHILUS CAP (BACID) PO SCH (09:21)
[2022-04-28] MEDS: COLESEVELAM 625 MG TAB (WELCHOL) PO SCH ×2 (09:21→17:26)
[2022-04-28] MEDS: AUGMENTIN 875 MG TAB PO SCH ×2 (09:21→22:01)
[2022-04-28] MEDS: guaiFENesin 200 MG TAB PO SCH ×3 (09:21→22:00)
[2022-04-28] MEDS: CREON-12 CAPSULE PO SCH ×3 (09:21→17:26)
[2022-04-28] MEDS: APIXABAN 2.5 MG TAB (ELIQUIS) PO SCH ×2 (09:21→22:01)
[2022-04-28] MEDS: ACETAMINOPHEN 500 MG TAB PO SCH ×3 (09:22→22:00)
[2022-04-28] MEDS: predniSONE 10 MG TAB PO SCH (09:22)
[2022-04-28] MEDS: SIMETHICONE 80MG CHEW TAB PO SCH ×3 (09:22→22:00)
[2022-04-28] MEDS: LOSARTAN 25 MG TAB PO SCH (09:23)
[2022-04-28] MEDS: LABETALOL 100MG TAB PO SCH (09:23)
[2022-04-28 14:10] VITALS: BP 135/63
[2022-04-28] MEDS: LIDOCAINE 4% TOPICAL SOLN 50 ML BTL TOP SCH ×2 (17:25→22:02)
[2022-04-28 20:48] VITALS: BP 133/64
[2022-04-28] MEDS: SENNA 8.6 MG TAB (SENOKOT) PO SCH (22:01)
[2022-04-29] MEDS: IPRATROPIUM 0.5MG/ALBUTEROL 2.5MG INH SOL UD 3ML (DUONEB) NEB SCH ×4 (02:00→19:11)
[2022-04-29] MEDS: oxyCODONE 5MG TAB PO PRN ×2 (04:38→10:12)
[2022-04-29] MEDS: LEVOTHYROXINE 75MCG TABLET (0.075MG) PO SCH (04:39)
[2022-04-29 05:34] VITALS: BP 138/66
[2022-04-29 06:36] LABS: EOS # 0.1 10^3/uL (0.0-0.5); EOS % 1.2 % (0.0-3.0); HEMATOCRIT 27.3 % (36.0-47.0); HEMOGLOBIN 8.8 g/dl (12.0-15.5); LYMPH # 0.5 10^3/uL (1.5-5.0); LYMPH % 7.9 % (24.0-44.0); MEAN CORPUSCULAR HEMOGLOBIN 33.6 pg (27.0-33.0); MEAN CORPUSCULAR HGB CONC 32.2 g/dl (32.0-36.5); MEAN CORPUSCULAR VOLUME 104.2 fl (80.0-96.0); MONO # 0.2 10^3/uL (0.0-0.8); MONO % 3.7 % (2.0-8.0); NEUTROPHILS # 5.6 10^3/uL (1.5-8.5); NEUTROPHILS % 86.4 % (36.0-66.0); PLATELET COUNT, AUTOMATED 196 10^3/uL (150-450); RED BLOOD COUNT 2.62 10^6/uL (4.00-5.40); WHITE BLOOD COUNT 6.5 10^3/uL (4.0-10.0)
[2022-04-29 07:34] LABS: BLOOD UREA NITROGEN 14 MG/DL (9-23); CALCIUM LEVEL 7.6 MG/DL (8.3-10.6); CARBON DIOXIDE LEVEL 20 MMOL/L (20-31); CHLORIDE LEVEL 114 MMOL/L (98-107); CREATININE FOR GFR 0.68 MG/DL (0.55-1.30); GLOMERULAR FILTRATION RATE > 60.0 (>32); GLUCOSE, FASTING 108 MG/DL (74-106); POTASSIUM SERUM 4.6 MMOL/L (3.5-5.1); SODIUM LEVEL 140 MMOL/L (136-145)
[2022-04-29] MEDS: COMBIVENT RESPIMAT 100-20MCG INHALER 4GM INH PRN (07:35)
[2022-04-29] MEDS: CALCITONIN NASAL SPRAY 3.7ML BTL SCH ×2 (09:00→15:31)
[2022-04-29] MEDS: CREON-12 CAPSULE PO SCH ×3 (10:00→17:13)
[2022-04-29] MEDS: CREON-24 CAPSULE PO SCH ×3 (10:00→17:12)
[2022-04-29] MEDS: COLESEVELAM 625 MG TAB (WELCHOL) PO SCH ×2 (10:00→17:13)
[2022-04-29] MEDS: LOSARTAN 25 MG TAB PO SCH (10:02)
[2022-04-29] MEDS: VITAMIN D 50,000 UNITS CAPSULE (ERGOCALCIFEROL 1.25MG) PO SCH (10:02)
[2022-04-29] MEDS: LABETALOL 100MG TAB PO SCH (10:02)
[2022-04-29] MEDS: predniSONE 10 MG TAB PO SCH (10:02)
[2022-04-29] MEDS: AUGMENTIN 875 MG TAB PO SCH ×2 (10:02→21:03)
[2022-04-29] MEDS: APIXABAN 2.5 MG TAB (ELIQUIS) PO SCH ×2 (10:03→21:04)
[2022-04-29] MEDS: DOCUSATE SODIUM 100MG CAPSULE PO SCH ×2 (10:03→21:00)
[2022-04-29] MEDS: ACETAMINOPHEN 500 MG TAB PO SCH ×3 (10:03→21:00)
[2022-04-29] MEDS: PANTOPRAZOLE 40MG TAB (PROTONIX) PO SCH ×2 (10:04→21:03)
[2022-04-29] MEDS: guaiFENesin 200 MG TAB PO SCH ×3 (10:04→21:03)
[2022-04-29] MEDS: SIMETHICONE 80MG CHEW TAB PO SCH ×3 (10:04→21:03)
[2022-04-29] MEDS: LACTOBACILLUS ACIDOPHILUS CAP (BACID) PO SCH (10:04)
[2022-04-29] MEDS: LIDOCAINE 4% TOPICAL SOLN 50 ML BTL TOP SCH ×2 (10:05→21:04)
[2022-04-29 14:00] VITALS: BP 142/67
[2022-04-29] MEDS: DULoxetine 20MG CAP (CYMBALTA) PO SCH (17:15)
[2022-04-29 20:54] VITALS: BP 134/64
[2022-04-29] MEDS: SENNA 8.6 MG TAB (SENOKOT) PO SCH (21:00)
[2022-04-29] MEDS: traZODone 25MG PER 1/2 TABLET PO SCH (21:03)
[2022-04-30] MEDS: IPRATROPIUM 0.5MG/ALBUTEROL 2.5MG INH SOL UD 3ML (DUONEB) NEB SCH ×4 (02:00→17:58)
[2022-04-30 05:12] VITALS: BP 166/77
[2022-04-30] MEDS: LEVOTHYROXINE 75MCG TABLET (0.075MG) PO SCH (05:12)
[2022-04-30 06:00] VITALS: BP 140/72
[2022-04-30] MEDS: oxyCODONE 5MG TAB PO PRN (06:27)
[2022-04-30 07:44] LABS: EOS # 0.1 10^3/uL (0.0-0.5); EOS % 0.7 % (0.0-3.0); HEMATOCRIT 28.1 % (36.0-47.0); HEMOGLOBIN 9.1 g/dl (12.0-15.5); LYMPH # 0.6 10^3/uL (1.5-5.0); LYMPH % 7.9 % (24.0-44.0); MEAN CORPUSCULAR HEMOGLOBIN 33.5 pg (27.0-33.0); MEAN CORPUSCULAR HGB CONC 32.4 g/dl (32.0-36.5); MEAN CORPUSCULAR VOLUME 103.3 fl (80.0-96.0); MONO # 0.3 10^3/uL (0.0-0.8); MONO % 4.3 % (2.0-8.0); NEUTROPHILS # 6.2 10^3/uL (1.5-8.5); NEUTROPHILS % 86.1 % (36.0-66.0); PLATELET COUNT, AUTOMATED 220 10^3/uL (150-450); RED BLOOD COUNT 2.72 10^6/uL (4.00-5.40); WHITE BLOOD COUNT 7.2 10^3/uL (4.0-10.0)
[2022-04-30] MEDS: CREON-24 CAPSULE PO SCH ×3 (08:00→17:31)
[2022-04-30] MEDS: CREON-12 CAPSULE PO SCH ×3 (08:00→17:31)
[2022-04-30] MEDS: SIMETHICONE 80MG CHEW TAB PO SCH ×3 (08:43→21:32)
[2022-04-30] MEDS: COLESEVELAM 625 MG TAB (WELCHOL) PO SCH ×2 (08:44→17:31)
[2022-04-30] MEDS: predniSONE 10 MG TAB PO SCH (08:44)
[2022-04-30] MEDS: guaiFENesin 200 MG TAB PO SCH ×3 (08:44→21:25)
[2022-04-30] MEDS: DULoxetine 20MG CAP (CYMBALTA) PO SCH (08:44)
[2022-04-30] MEDS: AUGMENTIN 875 MG TAB PO SCH ×2 (08:45→21:32)
[2022-04-30] MEDS: PANTOPRAZOLE 40MG TAB (PROTONIX) PO SCH ×2 (08:45→21:26)
[2022-04-30] MEDS: LABETALOL 100MG TAB PO SCH (08:45)
[2022-04-30] MEDS: LACTOBACILLUS ACIDOPHILUS CAP (BACID) PO SCH (08:45)
[2022-04-30] MEDS: LOSARTAN 25 MG TAB PO SCH (08:45)
[2022-04-30] MEDS: APIXABAN 2.5 MG TAB (ELIQUIS) PO SCH ×2 (08:46→21:25)
[2022-04-30] MEDS: ACETAMINOPHEN 500 MG TAB PO SCH ×3 (08:46→21:26)
[2022-04-30] MEDS: LIDOCAINE 4% TOPICAL SOLN 50 ML BTL TOP SCH ×2 (08:48→21:26)
[2022-04-30] MEDS: DOCUSATE SODIUM 100MG CAPSULE PO SCH ×2 (09:00→21:26)
[2022-04-30] MEDS: CALCITONIN NASAL SPRAY 3.7ML BTL SCH (09:00)
[2022-04-30 14:00] VITALS: BP 130/60
[2022-04-30] MEDS: COMBIVENT RESPIMAT 100-20MCG INHALER 4GM INH PRN (17:57)
[2022-04-30 20:00] VITALS: BP 156/73
[2022-04-30] MEDS: SENNA 8.6 MG TAB (SENOKOT) PO SCH (21:25)
[2022-04-30] MEDS: traZODone 25MG PER 1/2 TABLET PO SCH (21:26)
[2022-05-01] MEDS: IPRATROPIUM 0.5MG/ALBUTEROL 2.5MG INH SOL UD 3ML (DUONEB) NEB SCH ×3 (02:00→19:34)
[2022-05-01] MEDS: LEVOTHYROXINE 75MCG TABLET (0.075MG) PO SCH (05:39)
[2022-05-01 06:30] VITALS: BP 178/82
[2022-05-01] MEDS: LABETALOL 100MG TAB PO SCH (06:40)
[2022-05-01] MEDS: LOSARTAN 25 MG TAB PO SCH (06:41)
[2022-05-01 07:31] VITALS: BP 170/85
[2022-05-01] MEDS: CREON-12 CAPSULE PO SCH ×3 (07:59→17:12)
[2022-05-01] MEDS: DOCUSATE SODIUM 100MG CAPSULE PO SCH ×2 (07:59→19:13)
[2022-05-01] MEDS: CALCITONIN NASAL SPRAY 3.7ML BTL SCH (07:59)
[2022-05-01] MEDS: CREON-24 CAPSULE PO SCH ×3 (07:59→17:11)
[2022-05-01] MEDS: COLESEVELAM 625 MG TAB (WELCHOL) PO SCH ×2 (07:59→17:11)
[2022-05-01] MEDS: COMBIVENT RESPIMAT 100-20MCG INHALER 4GM INH PRN (08:28)
[2022-05-01 08:39] VITALS: BP 120/59
[2022-05-01] MEDS: ACETAMINOPHEN 500 MG TAB PO SCH ×3 (08:40→20:43)
[2022-05-01] MEDS: APIXABAN 2.5 MG TAB (ELIQUIS) PO SCH ×2 (08:40→20:43)
[2022-05-01] MEDS: DULoxetine 20MG CAP (CYMBALTA) PO SCH (08:40)
[2022-05-01] MEDS: PANTOPRAZOLE 40MG TAB (PROTONIX) PO SCH ×2 (08:40→20:43)
[2022-05-01] MEDS: guaiFENesin 200 MG TAB PO SCH ×3 (08:41→20:43)
[2022-05-01] MEDS: LACTOBACILLUS ACIDOPHILUS CAP (BACID) PO SCH (08:41)
[2022-05-01] MEDS: AUGMENTIN 875 MG TAB PO SCH ×2 (08:41→20:43)
[2022-05-01] MEDS: SIMETHICONE 80MG CHEW TAB PO SCH ×3 (08:41→20:47)
[2022-05-01] MEDS: predniSONE 20 MG TAB PO SCH (08:41)
[2022-05-01] MEDS: LIDOCAINE 4% TOPICAL SOLN 50 ML BTL TOP SCH ×2 (09:00→20:48)
[2022-05-01 14:00] VITALS: BP 137/64
[2022-05-01] MEDS: SENNA 8.6 MG TAB (SENOKOT) PO SCH (19:13)
[2022-05-01 20:00] VITALS: BP 139/69
[2022-05-01] MEDS: traZODone 25MG PER 1/2 TABLET PO SCH (20:48)
[2022-05-01] MEDS: NYSTATIN 100,000 UNITS/GM TOPICAL PWD 15GM TOP SCH (21:00)
[2022-05-02] MEDS: IPRATROPIUM 0.5MG/ALBUTEROL 2.5MG INH SOL UD 3ML (DUONEB) NEB SCH ×4 (01:16→20:00)
[2022-05-02] MEDS: LEVOTHYROXINE 75MCG TABLET (0.075MG) PO SCH (05:20)
[2022-05-02 05:21] VITALS: BP 145/70
[2022-05-02] MEDS: COMBIVENT RESPIMAT 100-20MCG INHALER 4GM INH PRN ×3 (07:22→20:13)
[2022-05-02] MEDS: NYSTATIN 100,000 UNITS/GM TOPICAL PWD 15GM TOP SCH ×2 (08:54→21:59)
[2022-05-02] MEDS: LIDOCAINE 4% TOPICAL SOLN 50 ML BTL TOP SCH ×2 (08:54→21:58)
[2022-05-02] MEDS: DOCUSATE SODIUM 100MG CAPSULE PO SCH ×2 (08:55→21:58)
[2022-05-02] MEDS: COLESEVELAM 625 MG TAB (WELCHOL) PO SCH ×2 (08:55→17:25)
[2022-05-02] MEDS: DULoxetine 20MG CAP (CYMBALTA) PO SCH (08:55)
[2022-05-02] MEDS: CREON-24 CAPSULE PO SCH ×3 (08:55→17:24)
[2022-05-02] MEDS: SIMETHICONE 80MG CHEW TAB PO SCH ×3 (08:55→21:58)
[2022-05-02] MEDS: LACTOBACILLUS ACIDOPHILUS CAP (BACID) PO SCH (08:55)
[2022-05-02] MEDS: guaiFENesin 200 MG TAB PO SCH ×3 (08:55→21:57)
[2022-05-02] MEDS: APIXABAN 2.5 MG TAB (ELIQUIS) PO SCH ×2 (08:56→21:57)
[2022-05-02] MEDS: predniSONE 20 MG TAB PO SCH (08:56)
[2022-05-02] MEDS: CREON-12 CAPSULE PO SCH ×3 (08:56→17:25)
[2022-05-02] MEDS: PANTOPRAZOLE 40MG TAB (PROTONIX) PO SCH ×2 (08:56→21:57)
[2022-05-02] MEDS: ACETAMINOPHEN 500 MG TAB PO SCH ×3 (08:56→21:58)
[2022-05-02] MEDS: LOSARTAN 25 MG TAB PO SCH (08:57)
[2022-05-02] MEDS: CALCITONIN NASAL SPRAY 3.7ML BTL SCH (09:00)
[2022-05-02 09:53] LABS: BASO % 0.2 % (0.0-1.0); EOS # 0.1 10^3/uL (0.0-0.5); EOS % 2.7 % (0.0-3.0); HEMATOCRIT 36.6 % (36.0-47.0); HEMOGLOBIN 11.3 g/dl (12.0-15.5); LYMPH # 0.9 10^3/uL (1.5-5.0); LYMPH % 18.3 % (24.0-44.0); MEAN CORPUSCULAR HGB CONC 30.9 g/dl (32.0-36.5); MONO # 0.3 10^3/uL (0.0-0.8); MONO % 5.9 % (2.0-8.0); NEUTROPHILS # 3.4 10^3/uL (1.5-8.5); NEUTROPHILS % 71.8 % (36.0-66.0); PLATELET COUNT, AUTOMATED 246 10^3/uL (150-450); RED BLOOD COUNT 3.42 10^6/uL (4.00-5.40); WHITE BLOOD COUNT 4.8 10^3/uL (4.0-10.0)
[2022-05-02 10:09] LABS: BLOOD UREA NITROGEN 16 MG/DL (9-23); CALCIUM LEVEL 8.4 MG/DL (8.3-10.6); CARBON DIOXIDE LEVEL 18 MMOL/L (20-31); CHLORIDE LEVEL 109 MMOL/L (98-107); CREATININE FOR GFR 0.74 MG/DL (0.55-1.30); GLOMERULAR FILTRATION RATE > 60.0 (>32); GLUCOSE, FASTING 146 MG/DL (74-106); SODIUM LEVEL 140 MMOL/L (136-145)
[2022-05-02] MEDS: LABETALOL 100MG TAB PO SCH (12:17)
[2022-05-02 14:00] VITALS: BP 147/77
[2022-05-02 20:00] VITALS: BP 108/58
[2022-05-02] MEDS: traZODone 25MG PER 1/2 TABLET PO SCH (21:58)
[2022-05-02] MEDS: SENNA 8.6 MG TAB (SENOKOT) PO SCH (21:58)
[2022-05-02] MEDS: oxyCODONE 5MG TAB PO PRN (22:03)
[2022-05-03] MEDS: IPRATROPIUM 0.5MG/ALBUTEROL 2.5MG INH SOL UD 3ML (DUONEB) NEB SCH ×5 (02:00→19:13)
[2022-05-03 05:15] VITALS: BP 129/65
[2022-05-03] MEDS: LEVOTHYROXINE 75MCG TABLET (0.075MG) PO SCH (05:15)
[2022-05-03] MEDS: COMBIVENT RESPIMAT 100-20MCG INHALER 4GM INH PRN ×2 (07:16→13:37)
[2022-05-03] MEDS: CALCITONIN NASAL SPRAY 3.7ML BTL SCH (09:00)
[2022-05-03] MEDS: DOCUSATE SODIUM 100MG CAPSULE PO SCH ×2 (09:00→21:39)
[2022-05-03] MEDS: guaiFENesin 200 MG TAB PO SCH ×3 (09:30→21:38)
[2022-05-03] MEDS: LACTOBACILLUS ACIDOPHILUS CAP (BACID) PO SCH (09:30)
[2022-05-03] MEDS: predniSONE 20 MG TAB PO SCH (09:30)
[2022-05-03] MEDS: SIMETHICONE 80MG CHEW TAB PO SCH ×3 (09:30→21:40)
[2022-05-03] MEDS: CREON-24 CAPSULE PO SCH ×3 (09:30→18:09)
[2022-05-03] MEDS: APIXABAN 2.5 MG TAB (ELIQUIS) PO SCH ×2 (09:30→21:41)
[2022-05-03] MEDS: COLESEVELAM 625 MG TAB (WELCHOL) PO SCH ×2 (09:30→18:09)
[2022-05-03] MEDS: CREON-12 CAPSULE PO SCH ×3 (09:31→18:09)
[2022-05-03] MEDS: PANTOPRAZOLE 40MG TAB (PROTONIX) PO SCH ×2 (09:31→21:41)
[2022-05-03] MEDS: DULoxetine 20MG CAP (CYMBALTA) PO SCH (09:31)
[2022-05-03] MEDS: ACETAMINOPHEN 500 MG TAB PO SCH ×3 (09:31→21:39)
[2022-05-03] MEDS: LOSARTAN 25 MG TAB PO SCH (09:31)
[2022-05-03] MEDS: NYSTATIN 100,000 UNITS/GM TOPICAL PWD 15GM TOP SCH ×2 (09:32→21:36)
[2022-05-03] MEDS: LABETALOL 100MG TAB PO SCH (09:32)
[2022-05-03] MEDS: LIDOCAINE 4% TOPICAL SOLN 50 ML BTL TOP SCH ×2 (09:33→21:37)
[2022-05-03 14:00] VITALS: BP 147/69
[2022-05-03] MEDS: oxyCODONE 5MG TAB PO PRN ×2 (16:25→21:42)
[2022-05-03 20:06] VITALS: BP 102/57
[2022-05-03] MEDS: traZODone 25MG PER 1/2 TABLET PO SCH (21:39)
[2022-05-03] MEDS: SENNA 8.6 MG TAB (SENOKOT) PO SCH (21:41)
[2022-05-04] MEDS: IPRATROPIUM 0.5MG/ALBUTEROL 2.5MG INH SOL UD 3ML (DUONEB) NEB SCH ×2 (02:00→08:00)
[2022-05-04 04:45] VITALS: BP 158/68
[2022-05-04] MEDS: LEVOTHYROXINE 75MCG TABLET (0.075MG) PO SCH (05:19)
[2022-05-04 08:04] VITALS: BP 158/68
[2022-05-04] MEDS: SIMETHICONE 80MG CHEW TAB PO SCH (08:04)
[2022-05-04] MEDS: ACETAMINOPHEN 500 MG TAB PO SCH (08:04)
[2022-05-04] MEDS: COLESEVELAM 625 MG TAB (WELCHOL) PO SCH (08:04)
[2022-05-04] MEDS: CREON-24 CAPSULE PO SCH (08:04)
[2022-05-04] MEDS: LOSARTAN 25 MG TAB PO SCH (08:04)
[2022-05-04] MEDS: APIXABAN 2.5 MG TAB (ELIQUIS) PO SCH (08:04)
[2022-05-04] MEDS: CREON-12 CAPSULE PO SCH (08:04)
[2022-05-04] MEDS: guaiFENesin 200 MG TAB PO SCH (08:05)
[2022-05-04] MEDS: DOCUSATE SODIUM 100MG CAPSULE PO SCH (08:05)
[2022-05-04] MEDS: LACTOBACILLUS ACIDOPHILUS CAP (BACID) PO SCH (08:05)
[2022-05-04] MEDS: DULoxetine 20MG CAP (CYMBALTA) PO SCH (08:05)
[2022-05-04] MEDS: PANTOPRAZOLE 40MG TAB (PROTONIX) PO SCH (08:05)
[2022-05-04] MEDS: NYSTATIN 100,000 UNITS/GM TOPICAL PWD 15GM TOP SCH (08:06)
[2022-05-04] MEDS: CALCITONIN NASAL SPRAY 3.7ML BTL SCH (08:10)
[2022-05-04] MEDS: LIDOCAINE 4% TOPICAL SOLN 50 ML BTL TOP SCH (08:11)
[2022-05-04] MEDS ORDERED: predniSONE 10 MG TAB PO SCH (09:00)
[2022-05-04] MEDS ORDERED: OXYC-517 PO (10:31)
[2022-05-04] MEDS ORDERED: LABE100T6 PO (10:31)
[2022-05-04] MEDS ORDERED: PRED10TA2 PO (10:31)
[2022-05-04] MEDS ORDERED: PANT40TA29 PO (10:31)
[2022-05-04] MEDS ORDERED: CYMB1CAP4 PO (10:31)
[2022-05-04] MEDS ORDERED: SIME80TA16 PO (10:31)
[2022-05-04] MEDS ORDERED: IBUP-1114 PO (10:31)
[2022-05-04] MEDS ORDERED: TRAZ-252 PO (10:31)
[2022-05-04] MEDS ORDERED: RISATAB3 PO (10:31)
[2022-05-04] MEDS ORDERED: IPRA0.00 NEB (10:31)
[2022-05-04] MEDS ORDERED: COZA1TAB PO (10:31)
== END 2022-05-04 11:40 | DRG 513 ==
LOC: M PM&R 15:45
PROVIDERS: ADMIT Physical Medicine & Rehabilitation; ATTEND Physical Medicine & Rehabilitation
PROC: 0PSVXZZ Reposition Left Finger Phalanx, External Approach (ICD-10-PCS; 2022-04-15)
PROC: 0RSXXZZ Reposition Left Finger Phalangeal Joint, External Approach (ICD-10-PCS; 2022-04-15)
PROC: 2W3FX1Z Immobilization of Left Hand using Splint (ICD-10-PCS; 2022-04-15)
PROC: 0PSV34Z Reposition Left Finger Phalanx with Internal Fixation Device, Percutaneous Approach (ICD-10-PCS; principal; 2022-04-18 10:25)
PROC: XW033E5 Introduction of Remdesivir Anti-infective into Peripheral Vein, Percutaneous Approach, New Technology Group 5 (ICD-10-PCS; 2022-04-23)
DX: M48.54XD Collapsed vertebra, not elsewhere classified, thoracic region, subsequent encounter for fracture with routine healing (principal); U07.1 COVID-19; I50.32 Chronic diastolic (congestive) heart failure; E03.9 Hypothyroidism, unspecified; J45.909 Unspecified asthma, uncomplicated; J44.9 Chronic obstructive pulmonary disease, unspecified; E78.5 Hyperlipidemia, unspecified; I25.10 Atherosclerotic heart disease of native coronary artery without angina pectoris; I48.0 Paroxysmal atrial fibrillation; I35.0 Nonrheumatic aortic (valve) stenosis; K86.89 Other specified diseases of pancreas; I25.2 Old myocardial infarction; I11.0 Hypertensive heart disease with heart failure; K21.9 Gastro-esophageal reflux disease without esophagitis; S62.641A Nondisplaced fracture of proximal phalanx of left index finger, initial encounter for closed fracture; S62.643A Nondisplaced fracture of proximal phalanx of left middle finger, initial encounter for closed fracture; S62.645A Nondisplaced fracture of proximal phalanx of left ring finger, initial encounter for closed fracture; S62.647A Nondisplaced fracture of proximal phalanx of left little finger, initial encounter for closed fracture; S63.263A Dislocation of metacarpophalangeal joint of left middle finger, initial encounter; W01.0XXA Fall on same level from slipping, tripping and stumbling without subsequent striking against object, initial encounter; Y92.9 Unspecified place or not applicable; Z85.3 Personal history of malignant neoplasm of breast; Z85.41 Personal history of malignant neoplasm of cervix uteri; Z85.038 Personal history of other malignant neoplasm of large intestine; Z92.3 Personal history of irradiation; Z92.21 Personal history of antineoplastic chemotherapy; Z90.49 Acquired absence of other specified parts of digestive tract; Z90.79 Acquired absence of other genital organ(s); Z93.3 Colostomy status; Z95.5 Presence of coronary angioplasty implant and graft; Z74.09 Other reduced mobility; Z74.1 Need for assistance with personal care; Z79.01 Long term (current) use of anticoagulants; Z79.52 Long term (current) use of systemic steroids; Z79.890 Hormone replacement therapy; Z79.899 Other long term (current) drug therapy; Z88.8 Allergy status to other drugs, medicaments and biological substances; Z91.048 Other nonmedicinal substance allergy status; Z86.718 Personal history of other venous thrombosis and embolism; Z96.643 Presence of artificial hip joint, bilateral; Z87.891 Personal history of nicotine dependence

== ENCOUNTER → 2022-05-06 | Outpatient (REF) ==
[~2022-05-06] MED LIST changes: +COZA1TAB PO; +CYMB1CAP4 PO; +IBUP-1114 PO; +SIME80TA16 PO; +TRAZ-252 PO
[2022-05-06 09:44] LABS: HEMOGLOBIN 10.5 g/dl (12.0-15.5); MEAN CORPUSCULAR HGB CONC 31.8 g/dl (32.0-36.5); MEAN CORPUSCULAR VOLUME 106.8 fl (80.0-96.0); PLATELET COUNT, AUTOMATED 200 10^3/uL (150-450); RED BLOOD COUNT 3.09 10^6/uL (4.00-5.40); WHITE BLOOD COUNT 6.1 10^3/uL (4.0-10.0)
[2022-05-06 10:11] LABS: BLOOD UREA NITROGEN 19 MG/DL (9-23); CALCIUM LEVEL 8.2 MG/DL (8.3-10.6); CARBON DIOXIDE LEVEL 22 MMOL/L (20-31); CHLORIDE LEVEL 109 MMOL/L (98-107); CREATININE FOR GFR 0.71 MG/DL (0.55-1.30); GLOMERULAR FILTRATION RATE > 60.0 (>32); GLUCOSE, FASTING 118 MG/DL (74-106); POTASSIUM SERUM 4.7 MMOL/L (3.5-5.1); SODIUM LEVEL 139 MMOL/L (136-145)
== END ==
PROVIDERS: ATTEND Internal Medicine
DX: I10 Essential (primary) hypertension (principal)

== ENCOUNTER → 2022-05-12 | Outpatient (REF) | payer MEDICARE, OTHER | LOC: M SOG 09:00 → EDSTATUS 05-22 10:34 | PROVIDERS: ATTEND Orthopaedic Surgery | DX: M25.542 Pain in joints of left hand (principal); Z98.890 Other specified postprocedural states ==

== ENCOUNTER → 2022-05-13 | Outpatient (REF) ==
[2022-05-13 09:18] LABS: HEMATOCRIT 33.1 % (36.0-47.0); HEMOGLOBIN 10.4 g/dl (12.0-15.5); MEAN CORPUSCULAR HEMOGLOBIN 34.2 pg (27.0-33.0); MEAN CORPUSCULAR HGB CONC 31.4 g/dl (32.0-36.5); MEAN CORPUSCULAR VOLUME 108.9 fl (80.0-96.0); PLATELET COUNT, AUTOMATED 199 10^3/uL (150-450); RED BLOOD COUNT 3.04 10^6/uL (4.00-5.40); WHITE BLOOD COUNT 5.2 10^3/uL (4.0-10.0)
[2022-05-13 09:50] LABS: BLOOD UREA NITROGEN 19 MG/DL (9-23); CALCIUM LEVEL 8.2 MG/DL (8.3-10.6); CARBON DIOXIDE LEVEL 18 MMOL/L (20-31); CHLORIDE LEVEL 109 MMOL/L (98-107); CREATININE FOR GFR 0.71 MG/DL (0.55-1.30); GLOMERULAR FILTRATION RATE > 60.0 (>32); GLUCOSE, FASTING 247 MG/DL (74-106); POTASSIUM SERUM 5.1 MMOL/L (3.5-5.1); SODIUM LEVEL 136 MMOL/L (136-145)
== END ==
PROVIDERS: ATTEND Internal Medicine
DX: Z79.899 Other long term (current) drug therapy (principal)

== ENCOUNTER → 2022-05-19 | Outpatient (REF) | PROVIDERS: ATTEND Physician Assistant | DX: M79.10 Myalgia, unspecified site (principal) ==

== ENCOUNTER → 2022-06-13 | Outpatient (REF) | PROVIDERS: ATTEND Internal Medicine | DX: I51.9 Heart disease, unspecified (principal); Z53.8 Procedure and treatment not carried out for other reasons ==

== ENCOUNTER → 2022-06-16 | Outpatient (CLI) | payer MEDICARE, OTHER ==
[2022-06-16 15:33] LABS: BASO # 0.1 10^3/uL (0.0-0.2); BASO % 0.9 % (0.0-1.0); EOS # 0.7 10^3/uL (0.0-0.5); EOS % 10.3 % (0.0-3.0); HEMATOCRIT 31.3 % (36.0-47.0); HEMOGLOBIN 10.5 g/dl (12.0-15.5); IRON (FE) 37 UG/DL (50-170); LYMPH # 1.2 10^3/uL (1.5-5.0); LYMPH % 18.3 % (24.0-44.0); MEAN CORPUSCULAR HEMOGLOBIN 35.7 pg (27.0-33.0); MEAN CORPUSCULAR HGB CONC 33.5 g/dl (32.0-36.5); MEAN CORPUSCULAR VOLUME 106.5 fl (80.0-96.0); MONO # 0.6 10^3/uL (0.0-0.8); MONO % 8.2 % (2.0-8.0); NEUTROPHILS # 4.1 10^3/uL (1.5-8.5); PERCENT SATURATION 15.5 % (13.2-45.0); PLATELET COUNT, AUTOMATED 256 10^3/uL (150-450); RED BLOOD COUNT 2.94 10^6/uL (4.00-5.40); TOTAL IRON BINDING CAPACITY 238 UG/DL (250-425); WHITE BLOOD COUNT 6.7 10^3/uL (4.0-10.0)
[2022-06-16 15:37] LABS: ALBUMIN 2.9 G/DL (3.2-5.2); ALKALINE PHOSPHATASE 124 U/L (46-116); ALT/SGPT 18 U/L (7.0-40); AST/SGOT 18 U/L (<34); BILIRUBIN,TOTAL 0.3 MG/DL (0.3-1.2); BLOOD UREA NITROGEN 13 MG/DL (9-23); CALCIUM LEVEL 8.7 MG/DL (8.3-10.6); CARBON DIOXIDE LEVEL 21 MMOL/L (20-31); CHLORIDE LEVEL 114 MMOL/L (98-107); CHOLESTEROL LEVEL 161 MG/DL (<200); CHOLESTEROL RISK RATIO 2.01 (<5); CREATININE FOR GFR 0.87 MG/DL (0.55-1.30); FERRITIN 165.1 NG/ML (7.3-270.7); FREE T4 0.99 NG/DL (0.89-1.76); GLOMERULAR FILTRATION RATE > 60.0 (>32); GLUCOSE, FASTING 88 MG/DL (74-106); LDL CHOLESTEROL 65.4 MG/DL (<100); NON-HDL-C 81 MG/DL; POTASSIUM SERUM 5.1 MMOL/L (3.5-5.1); SODIUM LEVEL 144 MMOL/L (136-145); THYROID STIMULATING HORMONE 3.443 uIU/ML (0.55-4.78); TOTAL 25(OH) VITAMIN D 30.3 NG/ML (20.0-100.0); TOTAL PROTEIN 5.9 G/DL (5.7-8.2); TRIGLYCERIDES LEVEL 78 MG/DL (<150); VITAMIN B12 LEVEL 1125 PG/ML (211-911)
== END ==
LOC: M PLALAB 12:10
PROVIDERS: ATTEND Family Medicine
DX: D51.9 Vitamin B12 deficiency anemia, unspecified (principal); D63.8 Anemia in other chronic diseases classified elsewhere; E03.9 Hypothyroidism, unspecified; I11.0 Hypertensive heart disease with heart failure; I50.9 Heart failure, unspecified; Z79.899 Other long term (current) drug therapy

== ENCOUNTER 2022-06-24 07:31 | Inpatient (IN) | payer MEDICARE, OTHER ==
[~2022-06-24] VITALS: Ht 149.9 cm; Wt 39.5 kg
[2022-06-24] MEDS ORDERED: traMADol 50 MG TAB PO ONE ×2 (07:45→14:55)
[2022-06-24] MEDS ORDERED: BACIOIN5 OP (07:50)
[2022-06-24] MEDS ORDERED: ACETAMINOPHEN 325 MG TAB PO ONE (09:30)
[2022-06-24] MEDS ORDERED: NORCO, ANEXSIA 5/325MG TABLET (HYDROcodone/ACETAMINOPHEN) PO ONE (09:30)
[2022-06-24 15:16] LABS: BASO # 0.1 10^3/uL (0.0-0.2); BASO % 0.6 % (0.0-1.0); EOS # 0.3 10^3/uL (0.0-0.5); EOS % 3.8 % (0.0-3.0); HEMATOCRIT 33.5 % (36.0-47.0); HEMOGLOBIN 10.6 g/dl (12.0-15.5); LYMPH % 12.8 % (24.0-44.0); MEAN CORPUSCULAR HEMOGLOBIN 33.2 pg (27.0-33.0); MEAN CORPUSCULAR HGB CONC 31.6 g/dl (32.0-36.5); MONO # 0.6 10^3/uL (0.0-0.8); MONO % 7.3 % (2.0-8.0); NEUTROPHILS # 5.8 10^3/uL (1.5-8.5); NEUTROPHILS % 75.2 % (36.0-66.0); PLATELET COUNT, AUTOMATED 226 10^3/uL (150-450); RED BLOOD COUNT 3.19 10^6/uL (4.00-5.40); WHITE BLOOD COUNT 7.7 10^3/uL (4.0-10.0)
[2022-06-24 15:47] LABS: RSV AMPLIFICATION NEGATIVE (NEGATIVE)
[2022-06-24 16:40] LABS: BLOOD UREA NITROGEN 12 MG/DL (9-23); CALCIUM LEVEL 8.1 MG/DL (8.3-10.6); CARBON DIOXIDE LEVEL 20 MMOL/L (20-31); CHLORIDE LEVEL 113 MMOL/L (98-107); CREATININE FOR GFR 0.73 MG/DL (0.55-1.30); GLOMERULAR FILTRATION RATE > 60.0 (>32); GLUCOSE, FASTING 147 MG/DL (74-106); POTASSIUM SERUM 5.9 MMOL/L (3.5-5.1); SODIUM LEVEL 139 MMOL/L (136-145)
[2022-06-24] MEDS ORDERED: PANT40TA29 PO (18:33)
[2022-06-24] MEDS ORDERED: TRAZ-252 PO (18:33)
[2022-06-24] MEDS ORDERED: OXYC-517 PO (18:33)
[2022-06-24] MEDS ORDERED: LOSA25TA13 PO (18:33)
[2022-06-24] MEDS ORDERED: IPRA0.00 INH (18:33)
[2022-06-24] MEDS ORDERED: TRAM50TA2 PO (18:33)
[2022-06-24] MEDS ORDERED: LABE100T71 PO (18:33)
[2022-06-24] MEDS ORDERED: DULO1CAP4 PO (18:33)
[2022-06-24] MEDS ORDERED: RISATAB3 PO (18:33)
[2022-06-24] MEDS ORDERED: IBUP-1114 PO (18:33)
[2022-06-24] MEDS ORDERED: MED REC COMMENT (18:37)
[2022-06-24] MEDS ORDERED: HOME MED LIST COMPLETE! XX SCH (18:40)
[2022-06-24] MEDS ORDERED: IPRATROPIUM 0.5MG/ALBUTEROL 2.5MG INH SOL UD 3ML (DUONEB) NEB PRN (18:50)
[2022-06-24] MEDS ORDERED: traMADol 50 MG TAB PO PRN (18:50)
[2022-06-24] MEDS ORDERED: traZODone 50 MG TAB PO PRN (18:50)
[2022-06-24] MEDS ORDERED: LABETALOL 100MG TAB PO SCH (21:00)
[2022-06-25] VITALS (7 sets, daily range): BP systolic 91–118; BP diastolic 34–67
[2022-06-25] MEDS: ACETAMINOPHEN TAB 650MG DOSE (2X325MG) PO SCH ×4 (00:26→20:20)
[2022-06-25] MEDS: DULoxetine 20MG CAP (CYMBALTA) PO SCH ×2 (01:14→20:20)
[2022-06-25] MEDS: oxyCODONE 5MG TAB PO PRN (01:14)
[2022-06-25] MEDS: APIXABAN 2.5 MG TAB (ELIQUIS) PO SCH ×3 (01:14→20:20)
[2022-06-25] MEDS ORDERED: ONDANSETRON 4MG 2ML VIAL IV PRN (01:40)
[2022-06-25] MEDS: LEVOTHYROXINE 75MCG TABLET (0.075MG) PO SCH (06:11)
[2022-06-25 07:56] LABS: BASO % 0.8 % (0.0-1.0); EOS # 0.2 10^3/uL (0.0-0.5); EOS % 3.3 % (0.0-3.0); HEMATOCRIT 31.4 % (36.0-47.0); HEMOGLOBIN 9.8 g/dl (12.0-15.5); LYMPH # 0.5 10^3/uL (1.5-5.0); LYMPH % 9.7 % (24.0-44.0); MEAN CORPUSCULAR HEMOGLOBIN 33.1 pg (27.0-33.0); MEAN CORPUSCULAR HGB CONC 31.2 g/dl (32.0-36.5); MEAN CORPUSCULAR VOLUME 106.1 fl (80.0-96.0); MONO # 0.3 10^3/uL (0.0-0.8); MONO % 5.8 % (2.0-8.0); NEUTROPHILS # 4.2 10^3/uL (1.5-8.5); PLATELET COUNT, AUTOMATED 205 10^3/uL (150-450); RED BLOOD COUNT 2.96 10^6/uL (4.00-5.40); WHITE BLOOD COUNT 5.2 10^3/uL (4.0-10.0)
[2022-06-25 08:30] LABS: BLOOD UREA NITROGEN 12 MG/DL (9-23); CALCIUM LEVEL 8.2 MG/DL (8.3-10.6); CARBON DIOXIDE LEVEL 22 MMOL/L (20-31); CHLORIDE LEVEL 113 MMOL/L (98-107); CREATININE FOR GFR 0.76 MG/DL (0.55-1.30); GLOMERULAR FILTRATION RATE > 60.0 (>32); GLUCOSE, FASTING 141 MG/DL (74-106); POTASSIUM SERUM 6.4 MMOL/L (3.5-5.1); SODIUM LEVEL 137 MMOL/L (136-145)
[2022-06-25] MEDS ORDERED: PILL CUTTER 1 EACH XX PRN (08:30)
[2022-06-25] MEDS ORDERED: HumuLIN R (REGULAR) INSULIN (NovoLIN R) **100U/ML** PER UNIT IV STA (08:40)
[2022-06-25] MEDS ORDERED: FUROSEMIDE 40MG/4ML VIAL IV ONE (08:40)
[2022-06-25] MEDS ORDERED: ALBUTEROL SULFATE 2.5MG/0.5ML INH NEB SOLN NEB ONE (08:40)
[2022-06-25] MEDS ORDERED: SODIUM CHLORIDE 0.9% 1000ML IV SCH (08:40)
[2022-06-25] MEDS ORDERED: DEXTROSE 50% 50ML SYRINGE IV STA (08:40)
[2022-06-25] MEDS ORDERED: LABETALOL 100MG TAB PO SCH (09:00)
[2022-06-25] MEDS ORDERED: PATIROMER SORBITEX CALCIUM 8.4 GM POWDER PACKET (VELTASSA) PO ONE (09:00)
[2022-06-25] MEDS ORDERED: LOSARTAN 25 MG TAB PO SCH (09:00)
[2022-06-25] MEDS: PANTOPRAZOLE 40MG TAB (PROTONIX) PO SCH (09:19)
[2022-06-25 10:00] LABS: MAGNESIUM LEVEL 1.8 MG/DL (1.8-2.4); POTASSIUM SERUM 6.2 MMOL/L (3.5-5.1)
[2022-06-25] MEDS: NS 1,000 ML IV SCH (12:03)
[2022-06-25 17:57] LABS: BLOOD UREA NITROGEN 13 MG/DL (9-23); CALCIUM LEVEL 8.2 MG/DL (8.3-10.6); CARBON DIOXIDE LEVEL 19 MMOL/L (20-31); CHLORIDE LEVEL 113 MMOL/L (98-107); CREATININE FOR GFR 0.87 MG/DL (0.55-1.30); GLOMERULAR FILTRATION RATE > 60.0 (>32); GLUCOSE, FASTING 128 MG/DL (74-106); POTASSIUM SERUM 5.3 MMOL/L (3.5-5.1); SODIUM LEVEL 138 MMOL/L (136-145)
[2022-06-26] VITALS: BP 105/53
[2022-06-26] MEDS: NS 1,000 ML IV SCH (03:39)
[2022-06-26 04:00] VITALS: BP 119/56
[2022-06-26] MEDS: LEVOTHYROXINE 75MCG TABLET (0.075MG) PO SCH (05:28)
[2022-06-26 05:34] LABS: BASO % 0.5 % (0.0-1.0); EOS # 0.3 10^3/uL (0.0-0.5); HEMATOCRIT 27.8 % (36.0-47.0); HEMOGLOBIN 8.7 g/dl (12.0-15.5); LYMPH # 0.8 10^3/uL (1.5-5.0); LYMPH % 13.3 % (24.0-44.0); MEAN CORPUSCULAR HGB CONC 31.3 g/dl (32.0-36.5); MEAN CORPUSCULAR VOLUME 105.3 fl (80.0-96.0); MONO # 0.4 10^3/uL (0.0-0.8); MONO % 7.4 % (2.0-8.0); NEUTROPHILS # 4.3 10^3/uL (1.5-8.5); NEUTROPHILS % 73.5 % (36.0-66.0); PLATELET COUNT, AUTOMATED 190 10^3/uL (150-450); RED BLOOD COUNT 2.64 10^6/uL (4.00-5.40); WHITE BLOOD COUNT 5.9 10^3/uL (4.0-10.0)
[2022-06-26 06:02] LABS: BLOOD UREA NITROGEN 12 MG/DL (9-23); CALCIUM LEVEL 7.7 MG/DL (8.3-10.6); CARBON DIOXIDE LEVEL 20 MMOL/L (20-31); CHLORIDE LEVEL 115 MMOL/L (98-107); CREATININE FOR GFR 0.86 MG/DL (0.55-1.30); GLOMERULAR FILTRATION RATE > 60.0 (>32); GLUCOSE, FASTING 86 MG/DL (74-106); POTASSIUM SERUM 4.7 MMOL/L (3.5-5.1); SODIUM LEVEL 139 MMOL/L (136-145)
[2022-06-26 07:45] VITALS: BP 108/58
[2022-06-26] MEDS: PANTOPRAZOLE 40MG TAB (PROTONIX) PO SCH (08:38)
[2022-06-26] MEDS: APIXABAN 2.5 MG TAB (ELIQUIS) PO SCH ×2 (08:38→20:20)
[2022-06-26] MEDS: ACETAMINOPHEN TAB 650MG DOSE (2X325MG) PO SCH ×3 (08:39→20:20)
[2022-06-26] MEDS ORDERED: [UNRECOGNIZED DRUG - OTHER] PO PRN (09:15)
[2022-06-26] MEDS ORDERED: [UNRECOGNIZED DRUG - CODE] PO ×2 (14:55)
[2022-06-26 15:37] LABS: IRON (FE) 21 UG/DL (50-170); PERCENT SATURATION 10.7 % (13.2-45.0); TOTAL IRON BINDING CAPACITY 196 UG/DL (250-425)
[2022-06-26 16:07] VITALS: BP 122/66
[2022-06-26] MEDS: oxyCODONE 5MG TAB PO PRN (17:46)
[2022-06-26] MEDS: [UNRECOGNIZED DRUG - OTHER] PO SCH (17:47)
[2022-06-26 20:02] VITALS: BP 121/64
[2022-06-26] MEDS: DULoxetine 20MG CAP (CYMBALTA) PO SCH (20:19)
[2022-06-26] MEDS: oxyCODONE 5MG TAB PO SCH (20:21)
[2022-06-26] MEDS ORDERED: traMADol 50 MG TAB PO PRN (21:00)
[2022-06-27] MEDS: LEVOTHYROXINE 75MCG TABLET (0.075MG) PO SCH (05:46)
[2022-06-27 05:59] VITALS: BP 123/64
[2022-06-27 06:01] LABS: BASO % 0.6 % (0.0-1.0); EOS # 0.4 10^3/uL (0.0-0.5); EOS % 6.8 % (0.0-3.0); HEMATOCRIT 28.6 % (36.0-47.0); HEMOGLOBIN 9.1 g/dl (12.0-15.5); LYMPH # 0.8 10^3/uL (1.5-5.0); LYMPH % 13.6 % (24.0-44.0); MEAN CORPUSCULAR HEMOGLOBIN 33.3 pg (27.0-33.0); MEAN CORPUSCULAR HGB CONC 31.8 g/dl (32.0-36.5); MEAN CORPUSCULAR VOLUME 104.8 fl (80.0-96.0); MONO # 0.5 10^3/uL (0.0-0.8); MONO % 8.6 % (2.0-8.0); NEUTROPHILS # 4.3 10^3/uL (1.5-8.5); NEUTROPHILS % 70.1 % (36.0-66.0); PLATELET COUNT, AUTOMATED 203 10^3/uL (150-450); RED BLOOD COUNT 2.73 10^6/uL (4.00-5.40); WHITE BLOOD COUNT 6.2 10^3/uL (4.0-10.0)
[2022-06-27 06:33] LABS: BLOOD UREA NITROGEN 11 MG/DL (9-23); CALCIUM LEVEL 7.6 MG/DL (8.3-10.6); CARBON DIOXIDE LEVEL 19 MMOL/L (20-31); CHLORIDE LEVEL 114 MMOL/L (98-107); CREATININE FOR GFR 0.81 MG/DL (0.55-1.30); GLOMERULAR FILTRATION RATE > 60.0 (>32); GLUCOSE, FASTING 85 MG/DL (74-106); SODIUM LEVEL 138 MMOL/L (136-145)
[2022-06-27] MEDS: PANTOPRAZOLE 40MG TAB (PROTONIX) PO SCH (09:10)
[2022-06-27] MEDS: APIXABAN 2.5 MG TAB (ELIQUIS) PO SCH ×2 (09:10→21:08)
[2022-06-27] MEDS: oxyCODONE 5MG TAB PO SCH ×2 (09:12→21:09)
[2022-06-27] MEDS: ACETAMINOPHEN TAB 650MG DOSE (2X325MG) PO SCH ×3 (09:13→21:09)
[2022-06-27] MEDS: [UNRECOGNIZED DRUG - OTHER] PO SCH ×3 (09:19→17:46)
[2022-06-27 14:00] VITALS: BP 136/64
[2022-06-27 14:44] VITALS: BP 136/64
[2022-06-27 14:47] VITALS: BP 135/62
[2022-06-27 14:51] VITALS: BP 138/70
[2022-06-27] MEDS: DULoxetine 20MG CAP (CYMBALTA) PO SCH (21:08)
[2022-06-27 21:39] VITALS: BP 127/59
[2022-06-28] MEDS: LEVOTHYROXINE 75MCG TABLET (0.075MG) PO SCH (06:00)
[2022-06-28 06:02] VITALS: BP 126/65
[2022-06-28 06:41] VITALS: BP_SYST 119; BP_SYST 133; BP_SYST 136; BP_DIAS 67; BP_DIAS 68; BP_DIAS 70
[2022-06-28 07:10] LABS: BASO % 0.7 % (0.0-1.0); EOS # 0.4 10^3/uL (0.0-0.5); EOS % 7.4 % (0.0-3.0); HEMATOCRIT 27.9 % (36.0-47.0); HEMOGLOBIN 9.1 g/dl (12.0-15.5); LYMPH # 0.9 10^3/uL (1.5-5.0); MEAN CORPUSCULAR HEMOGLOBIN 33.8 pg (27.0-33.0); MEAN CORPUSCULAR HGB CONC 32.6 g/dl (32.0-36.5); MEAN CORPUSCULAR VOLUME 103.7 fl (80.0-96.0); MONO # 0.4 10^3/uL (0.0-0.8); MONO % 7.9 % (2.0-8.0); NEUTROPHILS # 3.7 10^3/uL (1.5-8.5); NEUTROPHILS % 66.6 % (36.0-66.0); PLATELET COUNT, AUTOMATED 210 10^3/uL (150-450); RED BLOOD COUNT 2.69 10^6/uL (4.00-5.40); WHITE BLOOD COUNT 5.5 10^3/uL (4.0-10.0)
[2022-06-28] MEDS ORDERED: oxyCODONE 5MG TAB PO ONE (07:25)
[2022-06-28] MEDS ORDERED: ONDANSETRON 4MG ORAL DISINTEGRATING TAB PO PRN (07:25)
[2022-06-28 07:32] LABS: BLOOD UREA NITROGEN 13 MG/DL (9-23); CALCIUM LEVEL 7.6 MG/DL (8.3-10.6); CARBON DIOXIDE LEVEL 21 MMOL/L (20-31); CHLORIDE LEVEL 112 MMOL/L (98-107); CREATININE FOR GFR 0.78 MG/DL (0.55-1.30); GLOMERULAR FILTRATION RATE > 60.0 (>32); GLUCOSE, FASTING 75 MG/DL (74-106); POTASSIUM SERUM 4.7 MMOL/L (3.5-5.1); SODIUM LEVEL 137 MMOL/L (136-145)
[2022-06-28] MEDS: PANTOPRAZOLE 40MG TAB (PROTONIX) PO SCH (08:27)
[2022-06-28] MEDS: APIXABAN 2.5 MG TAB (ELIQUIS) PO SCH ×2 (08:27→20:56)
[2022-06-28] MEDS: ACETAMINOPHEN TAB 650MG DOSE (2X325MG) PO SCH ×3 (08:28→20:57)
[2022-06-28] MEDS: [UNRECOGNIZED DRUG - OTHER] PO SCH ×3 (08:29→18:00)
[2022-06-28 14:00] VITALS: BP 121/64
[2022-06-28] MEDS: oxyCODONE 5MG TAB PO SCH ×2 (14:09→20:56)
[2022-06-28] MEDS: DULoxetine 20MG CAP (CYMBALTA) PO SCH (20:56)
[2022-06-28 21:38] VITALS: BP 108/57
[2022-06-29] MEDS: LEVOTHYROXINE 75MCG TABLET (0.075MG) PO SCH (05:07)
[2022-06-29 05:08] VITALS: BP 109/58
[2022-06-29 05:14] LABS: BASO % 0.7 % (0.0-1.0); EOS # 0.5 10^3/uL (0.0-0.5); EOS % 8.4 % (0.0-3.0); HEMATOCRIT 26.5 % (36.0-47.0); HEMOGLOBIN 8.5 g/dl (12.0-15.5); LYMPH % 19.1 % (24.0-44.0); MEAN CORPUSCULAR HEMOGLOBIN 33.2 pg (27.0-33.0); MEAN CORPUSCULAR HGB CONC 32.1 g/dl (32.0-36.5); MEAN CORPUSCULAR VOLUME 103.5 fl (80.0-96.0); MONO # 0.5 10^3/uL (0.0-0.8); NEUTROPHILS # 3.3 10^3/uL (1.5-8.5); NEUTROPHILS % 62.4 % (36.0-66.0); PLATELET COUNT, AUTOMATED 205 10^3/uL (150-450); RED BLOOD COUNT 2.56 10^6/uL (4.00-5.40); WHITE BLOOD COUNT 5.4 10^3/uL (4.0-10.0)
[2022-06-29 05:37] LABS: BLOOD UREA NITROGEN 14 MG/DL (9-23); CALCIUM LEVEL 7.7 MG/DL (8.3-10.6); CARBON DIOXIDE LEVEL 23 MMOL/L (20-31); CHLORIDE LEVEL 112 MMOL/L (98-107); CREATININE FOR GFR 0.76 MG/DL (0.55-1.30); GLOMERULAR FILTRATION RATE > 60.0 (>32); GLUCOSE, FASTING 93 MG/DL (74-106); POTASSIUM SERUM 4.5 MMOL/L (3.5-5.1); SODIUM LEVEL 140 MMOL/L (136-145)
[2022-06-29] MEDS ORDERED: oxyCODONE 5MG TAB PO ONE (07:05)
[2022-06-29] MEDS: PANTOPRAZOLE 40MG TAB (PROTONIX) PO SCH (07:53)
[2022-06-29] MEDS: APIXABAN 2.5 MG TAB (ELIQUIS) PO SCH ×2 (07:53→21:32)
[2022-06-29] MEDS: ACETAMINOPHEN TAB 650MG DOSE (2X325MG) PO SCH ×3 (07:54→21:32)
[2022-06-29] MEDS: [UNRECOGNIZED DRUG - OTHER] PO SCH ×3 (07:55→16:54)
[2022-06-29] MEDS: oxyCODONE 5MG TAB PO SCH ×2 (12:38→21:32)
[2022-06-29] MEDS: DULoxetine 20MG CAP (CYMBALTA) PO SCH (21:31)
[2022-06-30 05:16] VITALS: BP 128/67
[2022-06-30] MEDS: LEVOTHYROXINE 75MCG TABLET (0.075MG) PO SCH (05:34)
[2022-06-30 06:22] LABS: BASO % 0.5 % (0.0-1.0); EOS # 0.5 10^3/uL (0.0-0.5); EOS % 9.1 % (0.0-3.0); HEMATOCRIT 27.6 % (36.0-47.0); HEMOGLOBIN 8.7 g/dl (12.0-15.5); LYMPH % 18.5 % (24.0-44.0); MEAN CORPUSCULAR HGB CONC 31.5 g/dl (32.0-36.5); MEAN CORPUSCULAR VOLUME 104.5 fl (80.0-96.0); MONO # 0.4 10^3/uL (0.0-0.8); MONO % 7.9 % (2.0-8.0); NEUTROPHILS # 3.5 10^3/uL (1.5-8.5); NEUTROPHILS % 63.6 % (36.0-66.0); PLATELET COUNT, AUTOMATED 230 10^3/uL (150-450); RED BLOOD COUNT 2.64 10^6/uL (4.00-5.40); WHITE BLOOD COUNT 5.5 10^3/uL (4.0-10.0)
[2022-06-30 06:44] LABS: BLOOD UREA NITROGEN 15 MG/DL (9-23); CALCIUM LEVEL 7.6 MG/DL (8.3-10.6); CARBON DIOXIDE LEVEL 23 MMOL/L (20-31); CHLORIDE LEVEL 110 MMOL/L (98-107); CREATININE FOR GFR 0.77 MG/DL (0.55-1.30); GLOMERULAR FILTRATION RATE > 60.0 (>32); GLUCOSE, FASTING 102 MG/DL (74-106); POTASSIUM SERUM 4.4 MMOL/L (3.5-5.1); SODIUM LEVEL 139 MMOL/L (136-145)
[2022-06-30] MEDS: [UNRECOGNIZED DRUG - OTHER] PO SCH (07:21)
[2022-06-30 08:15] VITALS: BP 121/62
[2022-06-30] MEDS ORDERED: PANT40TA29 PO (09:57)
[2022-06-30] MEDS ORDERED: OXYC-517 PO ×2 (09:57)
[2022-06-30] MEDS ORDERED: ACET1TAB55 PO (09:57)
[2022-06-30] MEDS ORDERED: TRAM50TA2 PO (09:57)
[2022-06-30] MEDS: ACETAMINOPHEN TAB 650MG DOSE (2X325MG) PO SCH (10:08)
[2022-06-30] MEDS: APIXABAN 2.5 MG TAB (ELIQUIS) PO SCH (10:10)
[2022-06-30] MEDS: oxyCODONE 5MG TAB PO SCH (10:10)
[2022-06-30] MEDS: PANTOPRAZOLE 40MG TAB (PROTONIX) PO SCH (10:10)
== END 2022-06-30 10:45 | DRG 542 ==
LOC: M ED 07:31 → EDBD 07:31 → M ED INP 22:36 → ENRESERVTM 23:55 → ENRESERVDT 23:55 → M MS5PR 06-25 01:07 → M PCU 06-25 10:25 → M MS5PR 06-26 17:50
PROVIDERS: ADMIT Internal Medicine Nephrology; ATTEND General Practice
PROC: 2W3AXYZ Immobilization of Right Upper Arm using Other Device (ICD-10-PCS; principal; 2022-06-25)
DX: M84.411A Pathological fracture, right shoulder, initial encounter for fracture (principal); E43 Unspecified severe protein-calorie malnutrition; I13.0 Hypertensive heart and chronic kidney disease with heart failure and stage 1 through stage 4 chronic kidney disease, or unspecified chronic kidney disease; Z68.1 Body mass index [BMI] 19.9 or less, adult; I50.32 Chronic diastolic (congestive) heart failure; D62 Acute posthemorrhagic anemia; J45.909 Unspecified asthma, uncomplicated; I48.0 Paroxysmal atrial fibrillation; I35.0 Nonrheumatic aortic (valve) stenosis; R29.6 Repeated falls; R26.89 Other abnormalities of gait and mobility; W01.0XXA Fall on same level from slipping, tripping and stumbling without subsequent striking against object, initial encounter; Y92.009 Unspecified place in unspecified non-institutional (private) residence as the place of occurrence of the external cause; Z86.16 Personal history of COVID-19; K21.9 Gastro-esophageal reflux disease without esophagitis; J44.9 Chronic obstructive pulmonary disease, unspecified; E03.9 Hypothyroidism, unspecified; E55.9 Vitamin D deficiency, unspecified; I25.10 Atherosclerotic heart disease of native coronary artery without angina pectoris; I25.2 Old myocardial infarction; Z95.5 Presence of coronary angioplasty implant and graft; D46.9 Myelodysplastic syndrome, unspecified; Z86.73 Personal history of transient ischemic attack (TIA), and cerebral infarction without residual deficits; E78.5 Hyperlipidemia, unspecified; K86.89 Other specified diseases of pancreas; D63.8 Anemia in other chronic diseases classified elsewhere; M81.0 Age-related osteoporosis without current pathological fracture; I73.9 Peripheral vascular disease, unspecified; K91.1 Postgastric surgery syndromes; Z96.641 Presence of right artificial hip joint; Z87.891 Personal history of nicotine dependence; Z85.41 Personal history of malignant neoplasm of cervix uteri; Z79.82 Long term (current) use of aspirin; Z79.890 Hormone replacement therapy; Z79.899 Other long term (current) drug therapy; Z88.8 Allergy status to other drugs, medicaments and biological substances; Z91.048 Other nonmedicinal substance allergy status; Z20.822 Contact with and (suspected) exposure to COVID-19; Z86.003 Personal history of in-situ neoplasm of oral cavity, esophagus and stomach; Z98.84 Bariatric surgery status; Z85.3 Personal history of malignant neoplasm of breast; Z86.718 Personal history of other venous thrombosis and embolism; Z90.79 Acquired absence of other genital organ(s); E87.5 Hyperkalemia; N18.9 Chronic kidney disease, unspecified; I95.9 Hypotension, unspecified; R33.9 Retention of urine, unspecified; D53.8 Other specified nutritional anemias; E86.0 Dehydration; Z96.643 Presence of artificial hip joint, bilateral; Z93.2 Ileostomy status

== ENCOUNTER → 2022-07-15 | Outpatient (REF) ==
[~2022-07-15] MED LIST changes: +BACIOIN5 OP; +DULO1CAP4 PO; +LABE100T71 PO; +LOSA25TA13 PO; +MED REC COMMENT; +[UNRECOGNIZED DRUG - CODE] PO
[2022-07-15 08:46] LABS: HEMATOCRIT 34.1 % (36.0-47.0); HEMOGLOBIN 10.7 g/dl (12.0-15.5); MEAN CORPUSCULAR HEMOGLOBIN 32.2 pg (27.0-33.0); MEAN CORPUSCULAR HGB CONC 31.4 g/dl (32.0-36.5); MEAN CORPUSCULAR VOLUME 102.7 fl (80.0-96.0); PLATELET COUNT, AUTOMATED 398 10^3/uL (150-450); RED BLOOD COUNT 3.32 10^6/uL (4.00-5.40); WHITE BLOOD COUNT 4.6 10^3/uL (4.0-10.0)
[2022-07-15 09:15] LABS: ALBUMIN 2.9 G/DL (3.2-5.2); ALKALINE PHOSPHATASE 244 U/L (46-116); ALT/SGPT 21 U/L (7.0-40); AST/SGOT 34 U/L (<34); BILIRUBIN,TOTAL 0.2 MG/DL (0.3-1.2); BLOOD UREA NITROGEN 13 MG/DL (9-23); CALCIUM LEVEL 8.7 MG/DL (8.3-10.6); CARBON DIOXIDE LEVEL 19 MMOL/L (20-31); CHLORIDE LEVEL 112 MMOL/L (98-107); CREATININE FOR GFR 0.72 MG/DL (0.55-1.30); GLOMERULAR FILTRATION RATE > 60.0 (>32); GLUCOSE, FASTING 101 MG/DL (74-106); SODIUM LEVEL 138 MMOL/L (136-145); TOTAL PROTEIN 6.5 G/DL (5.7-8.2)
[2022-07-15 09:33] LABS: PREALBUMIN 18.2 MG/DL (10.0-40.0)
== END ==
LOC: SKLAB5 11:31
PROVIDERS: ATTEND Internal Medicine
DX: E46 Unspecified protein-calorie malnutrition (principal); N18.9 Chronic kidney disease, unspecified; D64.9 Anemia, unspecified

== ENCOUNTER → 2022-07-21 | Outpatient (CLI) | payer MEDICARE, OTHER | LOC: M SOG 08:29 | PROVIDERS: ATTEND Physician Assistant | DX: S63.26 Dislocation of metacarpophalangeal joint of finger (principal); S63.263D Dislocation of metacarpophalangeal joint of left middle finger, subsequent encounter; M85.811 Other specified disorders of bone density and structure, right shoulder; M85.842 Other specified disorders of bone density and structure, left hand; M25.511 Pain in right shoulder ==

== ENCOUNTER → 2022-09-07 | Outpatient (CLI) | payer MEDICARE, OTHER ==
[~2022-09-07] MED LIST changes: +CIPR0.3S37 OS; -CIPR0.3S6 OS; -COZA50TA PO; +FLUT50SP17 NARES; -FLUTISP NARES; +LOSA-528 PO; -LOSA100T45 PO; +LOSA100T46 PO; +POTA-298 PO; -POTA1TAB14 PO
[2022-09-07 15:39] LABS: BASO % 0.5 % (0.0-1.0); EOS # 0.3 10^3/uL (0.0-0.5); HEMATOCRIT 35.7 % (36.0-47.0); HEMOGLOBIN 11.4 g/dl (12.0-15.5); LYMPH # 0.9 10^3/uL (1.5-5.0); LYMPH % 14.2 % (24.0-44.0); MEAN CORPUSCULAR HEMOGLOBIN 31.1 pg (27.0-33.0); MEAN CORPUSCULAR HGB CONC 31.9 g/dl (32.0-36.5); MEAN CORPUSCULAR VOLUME 97.5 fl (80.0-96.0); MONO # 0.4 10^3/uL (0.0-0.8); MONO % 6.1 % (2.0-8.0); NEUTROPHILS # 4.6 10^3/uL (1.5-8.5); NEUTROPHILS % 73.9 % (36.0-66.0); PLATELET COUNT, AUTOMATED 320 10^3/uL (150-450); RED BLOOD COUNT 3.66 10^6/uL (4.00-5.40); WHITE BLOOD COUNT 6.2 10^3/uL (4.0-10.0)
[2022-09-07 16:11] LABS: THYROID STIMULATING HORMONE 3.087 uIU/ML (0.55-4.78)
[2022-09-07 16:13] LABS: FREE T4 0.97 NG/DL (0.89-1.76)
[2022-09-07 16:20] LABS: ALBUMIN 2.7 G/DL (3.2-5.2); ALKALINE PHOSPHATASE 163 U/L (46-116); ALT/SGPT 21 U/L (7.0-40); AST/SGOT 22 U/L (<34); BILIRUBIN,TOTAL 0.3 MG/DL (0.3-1.2); BLOOD UREA NITROGEN 12 MG/DL (9-23); CALCIUM LEVEL 8.5 MG/DL (8.3-10.6); CARBON DIOXIDE LEVEL 21 MMOL/L (20-31); CHLORIDE LEVEL 108 MMOL/L (98-107); CREATININE FOR GFR 0.86 MG/DL (0.55-1.30); GLOMERULAR FILTRATION RATE > 60.0 (>32); GLUCOSE, FASTING 87 MG/DL (74-106); POTASSIUM SERUM 5.2 MMOL/L (3.5-5.1); SODIUM LEVEL 137 MMOL/L (136-145); TOTAL PROTEIN 6.4 G/DL (5.7-8.2)
== END ==
LOC: M PLALAB 12:32
PROVIDERS: ATTEND Family Medicine
DX: Z01.818 Encounter for other preprocedural examination (principal); E03.9 Hypothyroidism, unspecified

== ENCOUNTER 2022-09-21 19:20 | Observation (INO) | payer MEDICARE, OTHER ==
[~2022-09-21] VITALS: Ht 144.8 cm; Wt 38.0 kg
[2022-09-21] MEDS ORDERED: ONDANSETRON 4MG 2ML VIAL IV ONE (20:10)
[2022-09-21] MEDS ORDERED: MORPHINE 4 MG/ML 1ML VIAL IV ONE (20:10)
[2022-09-21] MEDS ORDERED: NS 1,000 ML IV ONE (20:10)
[2022-09-21 21:01] LABS: BASO # 0.1 10^3/uL (0.0-0.2); BASO % 0.8 % (0.0-1.0); EOS # 0.3 10^3/uL (0.0-0.5); EOS % 3.7 % (0.0-3.0); HEMOGLOBIN 12.5 g/dl (12.0-15.5); LYMPH # 0.9 10^3/uL (1.5-5.0); LYMPH % 12.3 % (24.0-44.0); MEAN CORPUSCULAR HEMOGLOBIN 30.8 pg (27.0-33.0); MEAN CORPUSCULAR HGB CONC 32.9 g/dl (32.0-36.5); MEAN CORPUSCULAR VOLUME 93.6 fl (80.0-96.0); MONO # 0.6 10^3/uL (0.0-0.8); NEUTROPHILS # 5.6 10^3/uL (1.5-8.5); NEUTROPHILS % 74.9 % (36.0-66.0); PLATELET COUNT, AUTOMATED 256 10^3/uL (150-450); RED BLOOD COUNT 4.06 10^6/uL (4.00-5.40); WHITE BLOOD COUNT 7.5 10^3/uL (4.0-10.0)
[2022-09-21 22:42] LABS: LIPASE 12 U/L (12-53)
[2022-09-21 22:45] LABS: ALBUMIN 2.3 G/DL (3.2-5.2); ALKALINE PHOSPHATASE 157 U/L (46-116); ALT/SGPT 18 U/L (7.0-40); AST/SGOT 24 U/L (<34); BILIRUBIN,DIRECT 0.1 MG/DL (<0.4); BILIRUBIN,TOTAL 0.3 MG/DL (0.3-1.2); BLOOD UREA NITROGEN 11 MG/DL (9-23); CALCIUM LEVEL 7.9 MG/DL (8.3-10.6); CARBON DIOXIDE LEVEL 20 MMOL/L (20-31); CHLORIDE LEVEL 111 MMOL/L (98-107); CREATININE FOR GFR 0.84 MG/DL (0.55-1.30); GLOMERULAR FILTRATION RATE > 60.0 (>32); GLUCOSE, FASTING 85 MG/DL (74-106); MAGNESIUM LEVEL 1.7 MG/DL (1.8-2.4); PHOSPHORUS LEVEL 3.5 MG/DL (2.4-5.1); POTASSIUM SERUM 4.8 MMOL/L (3.5-5.1); SODIUM LEVEL 139 MMOL/L (136-145); TOTAL PROTEIN 5.6 G/DL (5.7-8.2)
[2022-09-21] MEDS ORDERED: ISOVUE-370 76% 100ML VIAL As Ordered ONE (23:06)
[2022-09-21] MEDS: GASTROGRAFIN SOLUTION 30ML PO SCH ×2 (23:21→23:53)
[2022-09-21] MEDS ORDERED: MAG SULF 1GM/100ML (MAG RUN) 1 GM in IV 1 EA IV ONE (23:25)
[2022-09-21] MEDS ORDERED: METOCLOPRAMIDE INJ 10MG/2ML VIAL IV ONE (23:55)
[2022-09-22] MEDS ORDERED: ONDANSETRON 4MG 2ML VIAL IV PRN (04:10)
[2022-09-22] MEDS ORDERED: ACETAMINOPHEN TAB 650MG DOSE (2X325MG) PO PRN (04:10)
[2022-09-22] MEDS ORDERED: COMBAER6 INH (04:12)
[2022-09-22] MEDS ORDERED: LOSA25TA13 PO (04:12)
[2022-09-22] MEDS ORDERED: AMLO2.5T3 PO (04:12)
[2022-09-22] MEDS ORDERED: PANT20TA51 PO (04:12)
[2022-09-22] MEDS ORDERED: TRAM50TA2 PO (04:12)
[2022-09-22] MEDS ORDERED: ROZE8TAB16 PO (04:12)
[2022-09-22] MEDS ORDERED: METO1TAB32 PO (04:12)
[2022-09-22] MEDS ORDERED: ZENP1CAP PO ×2 (04:12)
[2022-09-22] MEDS ORDERED: HOME MED LIST COMPLETE! XX SCH (04:15)
[2022-09-22] MEDS ORDERED: COMBIVENT RESPIMAT 100-20MCG INHALER 4GM INH PRN (04:25)
[2022-09-22] MEDS ORDERED: CREON-24 CAPSULE PO PRN (04:25)
[2022-09-22] MEDS: MORPHINE 2 MG/ML 1ML VIAL IV PRN (04:33)
[2022-09-22] MEDS: LR 1,000 ML IV SCH ×2 (04:33→18:27)
[2022-09-22 05:35] LABS: HEMATOCRIT 33.1 % (36.0-47.0); HEMOGLOBIN 10.7 g/dl (12.0-15.5); MEAN CORPUSCULAR HEMOGLOBIN 30.7 pg (27.0-33.0); MEAN CORPUSCULAR HGB CONC 32.3 g/dl (32.0-36.5); MEAN CORPUSCULAR VOLUME 95.1 fl (80.0-96.0); PLATELET COUNT, AUTOMATED 228 10^3/uL (150-450); RED BLOOD COUNT 3.48 10^6/uL (4.00-5.40); WHITE BLOOD COUNT 6.4 10^3/uL (4.0-10.0)
[2022-09-22] MEDS: LEVOTHYROXINE 75MCG TABLET (0.075MG) PO SCH (05:48)
[2022-09-22 06:00] VITALS: BP 131/60
[2022-09-22 06:12] LABS: BLOOD UREA NITROGEN 10 MG/DL (9-23); CALCIUM LEVEL 7.8 MG/DL (8.3-10.6); CARBON DIOXIDE LEVEL 22 MMOL/L (20-31); CHLORIDE LEVEL 110 MMOL/L (98-107); CREATININE FOR GFR 0.78 MG/DL (0.55-1.30); GLOMERULAR FILTRATION RATE > 60.0 (>32); GLUCOSE, FASTING 72 MG/DL (74-106); POTASSIUM SERUM 4.4 MMOL/L (3.5-5.1); SODIUM LEVEL 139 MMOL/L (136-145)
[2022-09-22] MEDS: LOSARTAN 25 MG TAB PO SCH (08:52)
[2022-09-22] MEDS: guaiFENesin ER 600 MG TAB PO SCH ×2 (08:54→20:25)
[2022-09-22] MEDS: APIXABAN 2.5 MG TAB (ELIQUIS) PO SCH ×2 (08:54→20:25)
[2022-09-22] MEDS: PANTOPRAZOLE 20 MG TAB PO SCH (08:54)
[2022-09-22] MEDS: METOPROLOL SUCC *XL* 25MG TAB (TopROL *XL*) PO SCH (08:54)
[2022-09-22] MEDS: CREON-24 CAPSULE PO SCH ×3 (08:55→17:13)
[2022-09-22 14:00] VITALS: BP 119/58
[2022-09-22] MEDS: ADVAIR HFA 230/21MCG INHALER INH SCH ×2 (15:05→19:10)
[2022-09-22 17:49] VITALS: BP 131/60
[2022-09-22 20:41] VITALS: BP 120/57
[2022-09-22] MEDS ORDERED: RAMELTEON 8 MG TAB (ROZEREM) PO SCH (21:00)
[2022-09-23] MEDS: LEVOTHYROXINE 75MCG TABLET (0.075MG) PO SCH (05:35)
[2022-09-23 06:06] VITALS: BP 142/68
[2022-09-23] MEDS: MORPHINE 2 MG/ML 1ML VIAL IV PRN (06:17)
[2022-09-23 06:39] LABS: BLOOD UREA NITROGEN 9 MG/DL (9-23); CALCIUM LEVEL 7.9 MG/DL (8.3-10.6); CARBON DIOXIDE LEVEL 22 MMOL/L (20-31); CHLORIDE LEVEL 110 MMOL/L (98-107); CREATININE FOR GFR 0.79 MG/DL (0.55-1.30); GLOMERULAR FILTRATION RATE > 60.0 (>32); GLUCOSE, FASTING 67 MG/DL (74-106); POTASSIUM SERUM 4.1 MMOL/L (3.5-5.1); SODIUM LEVEL 139 MMOL/L (136-145)
[2022-09-23] MEDS: CREON-24 CAPSULE PO SCH ×2 (07:27→13:32)
[2022-09-23] MEDS: ADVAIR HFA 230/21MCG INHALER INH SCH (07:35)
[2022-09-23 09:00] VITALS: BP 109/58
[2022-09-23] MEDS: METOPROLOL SUCC *XL* 25MG TAB (TopROL *XL*) PO SCH (09:00)
[2022-09-23] MEDS: LOSARTAN 25 MG TAB PO SCH (09:00)
[2022-09-23] MEDS: guaiFENesin ER 600 MG TAB PO SCH (09:36)
[2022-09-23] MEDS: APIXABAN 2.5 MG TAB (ELIQUIS) PO SCH (09:38)
[2022-09-23] MEDS: PANTOPRAZOLE 20 MG TAB PO SCH (09:39)
[2022-09-23] MEDS ORDERED: ADVA230A INH (10:15)
[2022-09-23 10:23] VITALS: BP 120/75
[2022-09-23] MEDS ORDERED: MUCI600T31 PO (11:00)
== END 2022-09-23 14:30 | disposition home or self-care (01) ==
LOC: M ED 19:20 → M ED INP 19:21 → M MS5PR 09-22 05:35
PROVIDERS: ADMIT Family Medicine; ATTEND Family Medicine
DX: R11.2 Nausea with vomiting, unspecified (principal); I10 Essential (primary) hypertension; E78.5 Hyperlipidemia, unspecified; I35.0 Nonrheumatic aortic (valve) stenosis; I25.10 Atherosclerotic heart disease of native coronary artery without angina pectoris; I48.91 Unspecified atrial fibrillation; Z90.3 Acquired absence of stomach [part of]; Z93.4 Other artificial openings of gastrointestinal tract status; Z90.49 Acquired absence of other specified parts of digestive tract; Z93.2 Ileostomy status; K55.9 Vascular disorder of intestine, unspecified; Z85.3 Personal history of malignant neoplasm of breast; Z85.41 Personal history of malignant neoplasm of cervix uteri; Z90.710 Acquired absence of both cervix and uterus; Z86.73 Personal history of transient ischemic attack (TIA), and cerebral infarction without residual deficits; Z86.718 Personal history of other venous thrombosis and embolism; K86.89 Other specified diseases of pancreas; K21.9 Gastro-esophageal reflux disease without esophagitis; Z95.5 Presence of coronary angioplasty implant and graft; E03.9 Hypothyroidism, unspecified; J45.909 Unspecified asthma, uncomplicated; N20.0 Calculus of kidney; R82.71 Bacteriuria; R54 Age-related physical debility; Z88.8 Allergy status to other drugs, medicaments and biological substances; Z88.5 Allergy status to narcotic agent; Z91.048 Other nonmedicinal substance allergy status; Z79.899 Other long term (current) drug therapy; Z79.01 Long term (current) use of anticoagulants; Z79.51 Long term (current) use of inhaled steroids; Z79.890 Hormone replacement therapy
CPT/HCPCS: 36415; 74177; 80048; 80076; 81001; 83605; 83690; 83735; 84100; 85025; 85027; 87086; 87486; 87507; 87581; 87633; 87798; 94640; 96361; 96374; 96375; 96376; 97161; 97530; 99285; G0378; J2405; J2765; J3475; Q9963; Q9967